=== PATIENT | female | born 1985 | race Caucasian/White ===

== ENCOUNTER → 2016-06-24 | Outpatient (REF) | payer MEDICARE, MEDICAID ==
[2016-06-24 12:23] LABS: ALBUMIN 3.5 GM/DL (3.2-5.2); ALBUMIN/GLOBULIN RATIO 1.13 (1.00-1.93); ALKALINE PHOSPHATASE 105 U/L (45-117); ALT/SGPT 18 U/L (12-78); ANION GAP 8 MEQ/L (8-16); AST/SGOT 10 U/L (15-37); BILIRUBIN,TOTAL 0.4 MG/DL (0.2-1.0); BLOOD UREA NITROGEN 10 MG/DL (7-18); CALCIUM LEVEL 8.5 MG/DL (8.5-10.1); CARBON DIOXIDE LEVEL 27 MEQ/L (21-32); CHLORIDE LEVEL 109 MEQ/L (98-107); CREATININE FOR GFR 0.91 MG/DL (0.55-1.02); GLOMERULAR FILTRATION RATE > 60.0 (>60); GLUCOSE, FASTING 87 MG/DL (70-105); POTASSIUM SERUM 4.1 MEQ/L (3.5-5.1); SODIUM LEVEL 144 MEQ/L (136-145); TOTAL PROTEIN 6.6 GM/DL (6.4-8.2)
== END ==
LOC: M SFHCPLAZ 09:38
PROVIDERS: ATTEND Family Medicine
DX: E55.9 Vitamin D deficiency, unspecified (principal); R73.01 Impaired fasting glucose
CPT/HCPCS: 36415; 80053; 82306; 83036; 83970; G0463

== ENCOUNTER → 2016-06-25 | Outpatient (REF) | payer MEDICARE, MEDICAID ==
[2016-06-25 11:49] LABS: PROLACTIN 16.8 NG/ML
[2016-06-25 11:50] LABS: FOLLICLE STIMULATING HORMONE 5.7 mIU/mL; LUTEINIZING HORMONE 14.7 mIU/mL
== END ==
LOC: M LABNEURO 11:13
PROVIDERS: ATTEND Psychiatry & Neurology Neurology
DX: E23.7 Disorder of pituitary gland, unspecified (principal)

== ENCOUNTER 2016-06-28 16:59 | Emergency (ER) | payer MEDICARE, MEDICAID ==
--- NOTE | 2016-06-28 18:29 | EDDOCDS ---
Nurse's Notes [facility] Name: Shabnam Aaron Age: 31 yrs Sex: Female : 1985 Arrival Date: 06/28/2016 Time: 16:59 Bed TR7 Private MD: Demario Larios E. Diagnosis: Acute upper respiratory infection, unspecified;Cough Presentation: 06/28 17:10 Presenting complaint: Patient states: cough since Thursday saw Dr Larios that [facility] ,thought is was an asthma flare. Adult Sepsis Screening: The patient does not have new or worsening altered mentation. Patient's respiratory rate is less than 22. Systolic blood pressure is greater than 100. Patient has a qSOFA score of 0- Negative Sepsis Screen. Suicide/Homicide risk assessment- the patient denies having any suicidal and/or homicidal ideations and does not present with any other emotional, behavioral or mental health complaints. Status: Patient is not a water pump servicer or dependent. Transition of care: patient was not received from another setting of care. 17:10 Acuity: ALDEN Level 4 [facility] 17:10 Method Of Arrival: Walkin/Carried/[facility]std [facility] Triage Assessment: 17:18 General: Appears in no apparent distress, Behavior is appropriate for age. Pain: Denies [facility] pain. HIV screening NA for this visit Offered previously. Neurological: Level of Consciousness is awake, Oriented to person, place, time. Respiratory: Airway is patent Respiratory effort is even, unlabored, Respiratory pattern is regular, symmetrical, Reports cough that is non-productive. Derm: Skin is pink, warm & dry. 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 Advair Diskus 500-50 mcg/dose inhalation dsdv 1 puff 2 times per day (Last dose: 06/28/2016 07:00) 2. atorvastatin 20 mg oral tab 1 tab once daily (Last dose: 06/28/2016 11:00) 3. Calcium + Vitamin D 600 mg calcium- 200 unit oral tab 600 mg daily (Last dose: 06/28/2016 11:00) 4. escitalopram oxalate 20 mg oral tab 1 tab once daily (Last dose: 06/28/2016 11:00) 5. levothyroxine 25 mcg oral tab 1 tab once daily (Last dose: 06/28/2016 11:00) 6. loratadine 10 mg Oral tab 1 tab once daily (Last dose: 06/28/2016 11:00) 7. montelukast 10 mg oral tab 1 tab nightly (Last dose: 06/27/2016) 8. Nasonex 50 mcg/actuation Nasal spry 2 sprays twice a day (Last dose: 06/28/2016 11:00) 9. zonisamide 200 mg morning and 200 mg night oral (Last dose: 06/28/2016 11:00) 10. Nexium 40 mg Oral cpDR 1 cap once daily (Last dose: 06/28/2016 11:00) 11. albuterol sulfate 2.5 mg/0.5 mL Nebulizer nebu 0.5 mL every 6 hours as needed (Last dose: 06/28/2016 15:00) - PMHx: Allergies, Seasonal; Asthma; brain tumor; Seizure Disorder; mentally disabled; - PSHx: pyloric stenosis; Appendectomy; Tubal ligation; Tubes in ears; - Social history: Smoking status: Patient states was never smoker of tobacco. No barriers to communication noted, The patient speaks fluent Palauan, Speaks appropriately for age. - Family history: Not pertinent. - : The pt / caregiver states he / she is not on anticoagulants. Home medication list is obtained from the caregiver. - Exposure Risk Screening:: None identified. Screenin:26 Screening information is obtained from the patient. Screening information is obtained srm from the parent. Fall risk: No risks identified. Assistance ADL's: requires no assistance with activities of daily living. Abuse/DV Screen: The patient / caregiver reports he/she is: not in a situation that causes fear, pain or injury. Nutritional screening: No deficits noted. Advance Directives: There is no active DNR order. home support is adequate. Assessment: 18:26 General: Appears in no apparent distress, Behavior is appropriate for age, cooperative. srm Respiratory: Reports cough that is. GI: No deficits noted. : No deficits noted. Derm: No deficits noted. Vital Signs: 17:01 BP 120 / 72; Pulse 98; Resp 17; Temp 98.7(T); Pulse Ox 99% on R/A; Weight 91.17 kg (R); lr2 Height 5 ft. 7 in. (170.18 cm) (R); 18:19 BP 109 / 67; Pulse 87; Resp 18; Temp 98.8(O); Pulse Ox 97% on R/A; Pain 0/10; dem1 17:01 Body Mass Index 31.48 (91.17 kg, 170.18 cm) lr2 Vitals: 17:01 Log In Time: June 28, 2016 at 16:59. lr2 ED Course: 17:00 Patient visited by Roseanna Danielle. lr2 17:00 Demario Larios is Private Physician. lr2 17:00 Patient moved to Waiting lr2 17:01 Patient moved to Pre RCE lr2 17:12 Triage Initiated kpj 17:38 Patient moved to Triage 3 dem1 18:03 [facility]uliet Vazquez [facility]-C [facility]. dt4 18:03 Tessa Kuhn MD is Attending Physician. dt4 18:03 Patient visited by Yuliet Vazquez PA-C. dt4 18:19 Patient visited by Idalmis Greene. dem1 18:26 Patient moved to TR7 [facility] 18:26 The patient / caregiver is instructed regarding the plan of care and ED course. srm Accompanied by Family Member, Patient has correct armband on for positive identification. 18:26 No IV's were initiated during this patient's visit. No procedures done that require srm assistance. Order Results: There are currently no results for this order. Outcome: 18:14 Discharge ordered by Provider. dt4 18:26 Discharge Assessment: Patient awake, alert and oriented x 3. No cognitive and/or srm functional deficits noted. Patient verbalized understanding of disposition instructions. patient administered narcotics - no. The following High Risk Discharge criteria are identified: None. Discharged to home ambulatory, with parent. Condition: good Condition: stable. Discharge instructions given to patient, parents Instructed on discharge instructions, follow up and referral plans. medication usage, Demonstrated understanding of instructions, medications, Pt was receptive of discharge instructions/ teaching. Prescriptions given X 2. No special radiology studies were completed. Property sent home with patient. 18:28 Patient left the ED. srm Signatures: Amy Schwartz RN RN kpj Michelson, Staci, RN RN srm Mack, Demeishia dem1 Yuliet Vazquez PA-C PA-C dt4 Roseanna Danielle lrBernadine DERIAND
--- NOTE | 2016-06-28 18:29 | EDDOCDS ---
Physician Documentation [facility] Name: Shabnam Aaron Age: 31 yrs Sex: Female : 1985 Arrival Date: 06/28/2016 Time: 16:59 Bed TR7 Private MD: Demario Larios E. Disposition: 06/28/16 18:14 Discharged to Home/Self Care. Impression: Acute upper respiratory infection, unspecified, Cough. - Condition is Stable. - Discharge Instructions: Upper Respiratory Infection, Adult, Cough, Adult. - Prescriptions for Zithromax Z- Lionel 250 mg Oral Tablet - take 1 tablet by ORAL route as directed for 5 days Day 1- take two tablets once. Day 2, 3, 4 , 5 take one tablet once daily.; 6 tablet. benzonatate 200 mg Oral Capsule - take 1 capsule by ORAL route 3 times per day As needed; 30 capsule. - Medication Reconciliation, Local Pharmacy Hours form. - Follow up: Emergency Department; When: As needed; Reason: Worsening of conditions. Follow up: Private Physician; When: 2 - 3 days; Reason: Wound/Symptom Recheck, Recheck today's complaints, Continuance of care. - Problem is new. - Symptoms are unchanged. Historical: - Allergies: Rocephin (Hives); Ceclor (Hives); - Home Meds: 1. Advair Diskus 500-50 mcg/dose inhalation dsdv 1 puff 2 times per day (Last dose: 06/28/2016 07:00) 2. atorvastatin 20 mg oral tab 1 tab once daily (Last dose: 06/28/2016 11:00) 3. Calcium + Vitamin D 600 mg calcium- 200 unit oral tab 600 mg daily (Last dose: 06/28/2016 11:00) 4. escitalopram oxalate 20 mg oral tab 1 tab once daily (Last dose: 06/28/2016 11:00) 5. levothyroxine 25 mcg oral tab 1 tab once daily (Last dose: 06/28/2016 11:00) 6. loratadine 10 mg Oral tab 1 tab once daily (Last dose: 06/28/2016 11:00) 7. montelukast 10 mg oral tab 1 tab nightly (Last dose: 06/27/2016) 8. Nasonex 50 mcg/actuation Nasal spry 2 sprays twice a day (Last dose: 06/28/2016 11:00) 9. zonisamide 200 mg morning and 200 mg night oral (Last dose: 06/28/2016 11:00) 10. Nexium 40 mg Oral cpDR 1 cap once daily (Last dose: 06/28/2016 11:00) 11. albuterol sulfate 2.5 mg/0.5 mL Nebulizer nebu 0.5 mL every 6 hours as needed (Last dose: 06/28/2016 15:00) - PMHx: Allergies, Seasonal; Asthma; brain tumor; Seizure Disorder; mentally disabled; - PSHx: pyloric stenosis; Appendectomy; Tubal ligation; Tubes in ears; - Social history: Smoking status: Patient states was never smoker of tobacco. No barriers to communication noted, The patient speaks fluent Cypriot, Speaks appropriately for age. - Family history: Not pertinent. - : The pt / caregiver states he / she is not on anticoagulants. Home medication list is obtained from the caregiver. - Exposure Risk Screening:: None identified. 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 7 in. (170.18 cm) (R); 18:19 BP 109 / 67; Pulse 87; Resp 18; Temp 98.8(O); Pulse Ox 97% on R/A; Pain 0/10; dem1 17:01 Body Mass Index 31.48 (91.17 kg, 170.18 cm) lr2 Signatures: Amy Schwartz RN RN [facility] Mary Lemus RN RN [facility] Yuliet Vazquez, LIONEL PAAnton dt4 MTDD
--- NOTE | 2016-06-30 19:29 | EDDOCDS ---
Nurse's Notes [facility] Name: Shabnam Aaron Age: 31 yrs Sex: Female : 1985 Arrival Date: 06/28/2016 Time: 16:59 Bed TR7 Private MD: Demario Larios E. Diagnosis: Acute upper respiratory infection, unspecified;Cough Presentation: 06/28 17:10 Presenting complaint: Patient states: cough since Thursday saw Dr Larios that [facility] ,thought is was an asthma flare. Adult Sepsis Screening: The patient does not have new or worsening altered mentation. Patient's respiratory rate is less than 22. Systolic blood pressure is greater than 100. Patient has a qSOFA score of 0- Negative Sepsis Screen. Suicide/Homicide risk assessment- the patient denies having any suicidal and/or homicidal ideations and does not present with any other emotional, behavioral or mental health complaints. Status: Patient is not a atm servicer or dependent. Transition of care: patient was not received from another setting of care. 17:10 Acuity: ALDEN Level 4 [facility] 17:10 Method Of Arrival: Walkin/Carried/Asstd [facility] Triage Assessment: 17:18 General: Appears in no apparent distress, Behavior is appropriate for age. Pain: Denies [facility] pain. HIV screening NA for this visit Offered previously. Neurological: Level of Consciousness is awake, Oriented to person, place, time. Respiratory: Airway is patent Respiratory effort is even, unlabored, Respiratory pattern is regular, symmetrical, Reports cough that is non-productive. Derm: Skin is pink, warm & dry. 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 Advair Diskus 500-50 mcg/dose inhalation dsdv 1 puff 2 times per day (Last dose: 06/28/2016 07:00) 2. atorvastatin 20 mg oral tab 1 tab once daily (Last dose: 06/28/2016 11:00) 3. Calcium + Vitamin D 600 mg calcium- 200 unit oral tab 600 mg daily (Last dose: 06/28/2016 11:00) 4. escitalopram oxalate 20 mg oral tab 1 tab once daily (Last dose: 06/28/2016 11:00) 5. levothyroxine 25 mcg oral tab 1 tab once daily (Last dose: 06/28/2016 11:00) 6. loratadine 10 mg Oral tab 1 tab once daily (Last dose: 06/28/2016 11:00) 7. montelukast 10 mg oral tab 1 tab nightly (Last dose: 06/27/2016) 8. Nasonex 50 mcg/actuation Nasal spry 2 sprays twice a day (Last dose: 06/28/2016 11:00) 9. zonisamide 200 mg morning and 200 mg night oral (Last dose: 06/28/2016 11:00) 10. Nexium 40 mg Oral cpDR 1 cap once daily (Last dose: 06/28/2016 11:00) 11. albuterol sulfate 2.5 mg/0.5 mL Nebulizer nebu 0.5 mL every 6 hours as needed (Last dose: 06/28/2016 15:00) - PMHx: Allergies, Seasonal; Asthma; brain tumor; Seizure Disorder; mentally disabled; - PSHx: pyloric stenosis; Appendectomy; Tubal ligation; Tubes in ears; - Social history: Smoking status: Patient states was never smoker of tobacco. No barriers to communication noted, The patient speaks fluent Fijian, Speaks appropriately for age. - Family history: Not pertinent. - : The pt / caregiver states he / she is not on anticoagulants. Home medication list is obtained from the caregiver. - Exposure Risk Screening:: None identified. Screenin:26 Screening information is obtained from the patient. Screening information is obtained srm from the parent. Fall risk: No risks identified. Assistance ADL's: requires no assistance with activities of daily living. Abuse/DV Screen: The patient / caregiver reports he/she is: not in a situation that causes fear, pain or injury. Nutritional screening: No deficits noted. Advance Directives: There is no active DNR order. home support is adequate. Assessment: 18:26 General: Appears in no apparent distress, Behavior is appropriate for age, cooperative. srm Respiratory: Reports cough that is. GI: No deficits noted. : No deficits noted. Derm: No deficits noted. Vital Signs: 17:01 BP 120 / 72; Pulse 98; Resp 17; Temp 98.7(T); Pulse Ox 99% on R/A; Weight 91.17 kg (R); lr2 Height 5 ft. 7 in. (170.18 cm) (R); 18:19 BP 109 / 67; Pulse 87; Resp 18; Temp 98.8(O); Pulse Ox 97% on R/A; Pain 0/10; dem1 17:01 Body Mass Index 31.48 (91.17 kg, 170.18 cm) lr2 Vitals: 17:01 Log In Time: June 28, 2016 at 16:59. lr2 ED Course: 17:00 Patient visited by Roseanna Danielle. lr2 17:00 Demario Larios is Private Physician. lr2 17:00 Patient moved to Waiting lr2 17:01 Patient moved to Pre RCE lr2 17:12 Triage Initiated kpj 17:38 Patient moved to Triage 3 dem1 18:03 [facility]quez [facility]. dt4 18:03 Tessa Kuhn MD is Attending Physician. dt4 18:03 Patient visited by Yuliet Vazquez PA-C. dt4 18:19 Patient visited by Idalmis Greene. dem1 18:26 Patient moved to TR7 srm 18:26 The patient / caregiver is instructed regarding the plan of care and ED course. srm Accompanied by Family Member, Patient has correct armband on for positive identification. 18:26 No IV's were initiated during this patient's visit. No procedures done that require srm assistance. 18:30 [facility] Payment Agreement was scanned into [employer] and attached to record. [facility] 02 12:48 T-Sheet-- Draft Copy was scanned into [employer] and attached to record. gb Order Results: There are currently no results for this order. Outcome: 06/28 18:14 Discharge ordered by Provider. dt4 18:26 Discharge Assessment: Patient awake, alert and oriented x 3. No cognitive and/or srm functional deficits noted. Patient verbalized understanding of disposition instructions. patient administered narcotics - no. The following High Risk Discharge criteria are identified: None. Discharged to home ambulatory, with parent. Condition: good Condition: stable. Discharge instructions given to patient, parents Instructed on discharge instructions, follow up and referral plans. medication usage, Demonstrated understanding of instructions, medications, Pt was receptive of discharge instructions/ teaching. Prescriptions given X 2. No special radiology studies were completed. Property sent home with patient. 18:28 Patient left the ED. srm Signatures: Amy Schwartz RN RN kpMary Dalal RN RN Janett Angulo, Idalmis Hoyt1 Yuliet Vazquez PA-C PAAnton steinberg4 Alena Moura Laura lr2 Chart Complete MTDD
--- NOTE | 2016-06-30 19:29 | EDDOCDS ---
Physician Documentation [facility] Name: Shabnam Aaron Age: 31 yrs Sex: Female : 1985 Arrival Date: 06/28/2016 Time: 16:59 Bed TR7 Private MD: Demario Larios E. Disposition: 06/28/16 18:14 Discharged to Home/Self Care. Impression: Acute upper respiratory infection, unspecified, Cough. - Condition is Stable. - Discharge Instructions: Upper Respiratory Infection, Adult, Cough, Adult. - Prescriptions for Zithromax Z- Lionel 250 mg Oral Tablet - take 1 tablet by ORAL route as directed for 5 days Day 1- take two tablets once. Day 2, 3, 4 , 5 take one tablet once daily.; 6 tablet. benzonatate 200 mg Oral Capsule - take 1 capsule by ORAL route 3 times per day As needed; 30 capsule. - Medication Reconciliation, Local Pharmacy Hours form. - Follow up: Emergency Department; When: As needed; Reason: Worsening of conditions. Follow up: Private Physician; When: 2 - 3 days; Reason: Wound/Symptom Recheck, Recheck today's complaints, Continuance of care. - Problem is new. - Symptoms are unchanged. Historical: - Allergies: Rocephin (Hives); Ceclor (Hives); - Home Meds: 1. Advair Diskus 500-50 mcg/dose inhalation dsdv 1 puff 2 times per day (Last dose: 06/28/2016 07:00) 2. atorvastatin 20 mg oral tab 1 tab once daily (Last dose: 06/28/2016 11:00) 3. Calcium + Vitamin D 600 mg calcium- 200 unit oral tab 600 mg daily (Last dose: 06/28/2016 11:00) 4. escitalopram oxalate 20 mg oral tab 1 tab once daily (Last dose: 06/28/2016 11:00) 5. levothyroxine 25 mcg oral tab 1 tab once daily (Last dose: 06/28/2016 11:00) 6. loratadine 10 mg Oral tab 1 tab once daily (Last dose: 06/28/2016 11:00) 7. montelukast 10 mg oral tab 1 tab nightly (Last dose: 06/27/2016) 8. Nasonex 50 mcg/actuation Nasal spry 2 sprays twice a day (Last dose: 06/28/2016 11:00) 9. zonisamide 200 mg morning and 200 mg night oral (Last dose: 06/28/2016 11:00) 10. Nexium 40 mg Oral cpDR 1 cap once daily (Last dose: 06/28/2016 11:00) 11. albuterol sulfate 2.5 mg/0.5 mL Nebulizer nebu 0.5 mL every 6 hours as needed (Last dose: 06/28/2016 15:00) - PMHx: Allergies, Seasonal; Asthma; brain tumor; Seizure Disorder; mentally disabled; - PSHx: pyloric stenosis; Appendectomy; Tubal ligation; Tubes in ears; - Social history: Smoking status: Patient states was never smoker of tobacco. No barriers to communication noted, The patient speaks fluent Yoruba, Speaks appropriately for age. - Family history: Not pertinent. - : The pt / caregiver states he / she is not on anticoagulants. Home medication list is obtained from the caregiver. - Exposure Risk Screening:: None identified. 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 7 in. (170.18 cm) (R); 18:19 BP 109 / 67; Pulse 87; Resp 18; Temp 98.8(O); Pulse Ox 97% on R/A; Pain 0/10; dem1 17:01 Body Mass Index 31.48 (91.17 kg, 170.18 cm) lr2 MDM: 18:30 [facility] Payment Agreement was scanned into [employer] and attached to record. b 18:30 Financial registration complete. gjb 06/29 12:48 T-Sheet-- Draft Copy was scanned into [employer] and attached to record. gb Signatures: Amy Schwartz RN RN Mary Dalal RN RN [facility] Janett Pinto, Reg Reg Yuliet Ma, SWATIC PAKpC Alena Kapoor The chart was reviewed and I authenticate all verbal orders and agree with the evaluation and treatment provided.Attachments: 06/28 18:30 [facility] Payment Agreement gjb 06/29 12:48 T-Sheet-- Draft Copy gb Chart Complete MTDD
--- NOTE | 2016-06-30 19:29 | EDDOCDS ---
Physician Documentation [facility] Name: Shabnam Aaron Age: 31 yrs Sex: Female : 1985 Arrival Date: 06/28/2016 Time: 16:59 Bed TR7 Private MD: Demario Larios E. Disposition: 06/28/16 18:14 Discharged to Home/Self Care. Impression: Acute upper respiratory infection, unspecified, Cough. - Condition is Stable. - Discharge Instructions: Upper Respiratory Infection, Adult, Cough, Adult. - Prescriptions for Zithromax Z- Lionel 250 mg Oral Tablet - take 1 tablet by ORAL route as directed for 5 days Day 1- take two tablets once. Day 2, 3, 4 , 5 take one tablet once daily.; 6 tablet. benzonatate 200 mg Oral Capsule - take 1 capsule by ORAL route 3 times per day As needed; 30 capsule. - Medication Reconciliation, Local Pharmacy Hours form. - Follow up: Emergency Department; When: As needed; Reason: Worsening of conditions. Follow up: Private Physician; When: 2 - 3 days; Reason: Wound/Symptom Recheck, Recheck today's complaints, Continuance of care. - Problem is new. - Symptoms are unchanged. Historical: - Allergies: Rocephin (Hives); Ceclor (Hives); - Home Meds: 1. Advair Diskus 500-50 mcg/dose inhalation dsdv 1 puff 2 times per day (Last dose: 06/28/2016 07:00) 2. atorvastatin 20 mg oral tab 1 tab once daily (Last dose: 06/28/2016 11:00) 3. Calcium + Vitamin D 600 mg calcium- 200 unit oral tab 600 mg daily (Last dose: 06/28/2016 11:00) 4. escitalopram oxalate 20 mg oral tab 1 tab once daily (Last dose: 06/28/2016 11:00) 5. levothyroxine 25 mcg oral tab 1 tab once daily (Last dose: 06/28/2016 11:00) 6. loratadine 10 mg Oral tab 1 tab once daily (Last dose: 06/28/2016 11:00) 7. montelukast 10 mg oral tab 1 tab nightly (Last dose: 06/27/2016) 8. Nasonex 50 mcg/actuation Nasal spry 2 sprays twice a day (Last dose: 06/28/2016 11:00) 9. zonisamide 200 mg morning and 200 mg night oral (Last dose: 06/28/2016 11:00) 10. Nexium 40 mg Oral cpDR 1 cap once daily (Last dose: 06/28/2016 11:00) 11. albuterol sulfate 2.5 mg/0.5 mL Nebulizer nebu 0.5 mL every 6 hours as needed (Last dose: 06/28/2016 15:00) - PMHx: Allergies, Seasonal; Asthma; brain tumor; Seizure Disorder; mentally disabled; - PSHx: pyloric stenosis; Appendectomy; Tubal ligation; Tubes in ears; - Social history: Smoking status: Patient states was never smoker of tobacco. No barriers to communication noted, The patient speaks fluent Urdu, Speaks appropriately for age. - Family history: Not pertinent. - : The pt / caregiver states he / she is not on anticoagulants. Home medication list is obtained from the caregiver. - Exposure Risk Screening:: None identified. 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 7 in. (170.18 cm) (R); 18:19 BP 109 / 67; Pulse 87; Resp 18; Temp 98.8(O); Pulse Ox 97% on R/A; Pain 0/10; dem1 17:01 Body Mass Index 31.48 (91.17 kg, 170.18 cm) lr2 MDM: 18:30 [facility] Payment Agreement was scanned into [employer] and attached to record. b 18:30 Financial registration complete. gjb 06/29 12:48 T-Sheet-- Draft Copy was scanned into [employer] and attached to record. gb Signatures: Amy Schwartz RN RN Mary Dalal RN RN [facility] Janett Pinto, Reg Reg Yuliet Ma, SWATIC PAKpC Alena Kapoor The chart was reviewed and I authenticate all verbal orders and agree with the evaluation and treatment provided.Attachments: 06/28 18:30 [facility] Payment Agreement gjb 06/29 12:48 T-Sheet-- Draft Copy gb Chart Complete MTDD
== END 2016-06-28 18:28 | disposition home or self-care (01) ==
LOC: M ED 16:59
DX: J06.9 Acute upper respiratory infection, unspecified (principal); R05 Cough; J45.909 Unspecified asthma, uncomplicated; G40.909 Epilepsy, unspecified, not intractable, without status epilepticus; F79 Unspecified intellectual disabilities; G93.9 Disorder of brain, unspecified; Z79.51 Long term (current) use of inhaled steroids; Z79.899 Other long term (current) drug therapy; Z88.1 Allergy status to other antibiotic agents

== ENCOUNTER → 2016-11-06 | Outpatient (REF) | payer MEDICARE, MEDICAID ==
[2016-11-06 14:24] LABS: ALBUMIN 3.7 GM/DL (3.2-5.2); ALBUMIN/GLOBULIN RATIO 1.19 (1.00-1.93); ALKALINE PHOSPHATASE 98 U/L (45-117); ALT/SGPT 15 U/L (12-78); ANION GAP 5 MEQ/L (8-16); AST/SGOT 10 U/L (15-37); BILIRUBIN,TOTAL 0.4 MG/DL (0.2-1.0); BLOOD UREA NITROGEN 12 MG/DL (7-18); CALCIUM LEVEL 8.4 MG/DL (8.5-10.1); CARBON DIOXIDE LEVEL 25 MEQ/L (21-32); CHLORIDE LEVEL 107 MEQ/L (98-107); CHOLESTEROL LEVEL 141 MG/DL (<200); CREATININE FOR GFR 0.84 MG/DL (0.55-1.02); FREE T4 0.93 NG/DL (0.76-1.46); GLOMERULAR FILTRATION RATE > 60.0 (>60); GLUCOSE, FASTING 87 MG/DL (70-105); POTASSIUM SERUM 4.1 MEQ/L (3.5-5.1); SODIUM LEVEL 137 MEQ/L (136-145); TOTAL PROTEIN 6.8 GM/DL (6.4-8.2); TRIGLYCERIDES LEVEL 102 MG/DL (<150)
== END ==
LOC: M SFHCPLAZ 11:22
PROVIDERS: ATTEND Family Medicine
DX: E78.5 Hyperlipidemia, unspecified (principal); E03.9 Hypothyroidism, unspecified
CPT/HCPCS: 36415; 80053; 80061; 82550; 84439; 84443; 86140; G0463

== ENCOUNTER → 2016-12-30 | Outpatient (REF) | payer MEDICARE, MEDICAID | LOC: M LAB REF 17:37 | PROVIDERS: ATTEND Advanced Practice Midwife | DX: Z11.3 Encounter for screening for infections with a predominantly sexual mode of transmission (principal) ==

== ENCOUNTER → 2017-01-08 | Outpatient (CLI) | payer MEDICARE, MEDICAID ==
--- NOTE | 2017-01-08 15:49 | REP ---
PELVIS ULTRASOUND: Real-time sonographic evaluation of the pelvis performed utilizing transabdominal and endovaginal technique. Bladder measures 4.1 x 1.5 x 4.5 cm. Uterus measures 8.4 x 3.7 x 5.0 cm. Endometrial thickness is 10 mm. Possible rounded polyp in the endometrial cavity measures 1.0 x 0.8 x 0.9 cm. No endometrial fluid collection is seen. Right ovary measures 4.2 x 2.7 x 2.3 cm and left ovary 2.5 x 1.9 x 1.6 cm. There is a dominant follicle in the right ovary with 2.0 x 1.5 x 1.7 cm. There is no other evidence of adnexal mass or free fluid. Blood flow is seen in each ovary with duplex Doppler evaluation, RI of each ovary is 0.51. IMPRESSION: Possible 1 cm endometrial polyp. Signed by Oseas Gomez MD 01/08/2017 05:06 P
== END ==
LOC: M RAD 14:18
PROVIDERS: ATTEND Advanced Practice Midwife
DX: N92.6 Irregular menstruation, unspecified (principal)

== ENCOUNTER 2017-04-20 09:39 | Day surgery (SDC) | payer MEDICARE, MEDICAID ==
[~2017-04-20] VITALS: Ht 165.1 cm; Wt 89.4 kg
[~2017-04-20 09:39] MED LIST: CALC600T57 PO; LAMI25TA PO; LEVO25TA5 PO; LEXA1TAB PO; LIPI20TA PO; LORA10TA2 PO; MONT10TA2 PO; NEXI40CA PO; NIZO2SHA EX; TERB1CRE12 EX; VITA1CAP40 PO; ZONI100C2 PO
[2017-04-20] MEDS ORDERED: LR 1,000 ML IV ONE (09:45)
[2017-04-20 10:02] LABS: MEAN CORPUSCULAR HEMOGLOBIN 28.3 pg (27.0-33.0); MEAN CORPUSCULAR HGB CONC 31.7 g/dl (32.0-36.5); MEAN CORPUSCULAR VOLUME 89.3 fl (80.0-96.0); PLATELET COUNT, AUTOMATED 299 10^3/uL (150-450); RED CELL DISTRIBUTION WIDTH 13.8 % (11.5-14.5); WHITE BLOOD COUNT 5.8 10^3/uL (4.0-10.0)
[2017-04-20] MEDS ORDERED: MIDAZOLAM INJ 2 MG/2 ML VIAL (J2250) As Ordered ONE (12:01)
[2017-04-20] MEDS ORDERED: LIDOCAINE 2% INJ 100 MG/5 ML SDV (FOR ANES.) As Ordered ONE (12:01)
[2017-04-20] MEDS ORDERED: dexameTHASONE 4 MG/ML 1ML VIAL (J1100) As Ordered ONE (12:01)
[2017-04-20] MEDS ORDERED: fentaNYL 100 MCG/2 ML INJECTION (J3010) As Ordered ONE (12:01)
[2017-04-20] MEDS ORDERED: PROPOFOL 200 MG/20 ML VIAL As Ordered ONE (12:01)
[2017-04-20] MEDS ORDERED: ONDANSETRON 4MG/2ML VIAL (J2405) As Ordered ONE (12:01)
[2017-04-20] MEDS ORDERED: KETOROLAC 60 MG/2 ML VIAL (J1885) As Ordered ONE (12:01)
[2017-04-20] MEDS ORDERED: SILVER NITRATE APPLICATOR As Ordered ONE (12:33)
[2017-04-20] MEDS ORDERED: ONDANSETRON 4MG/2ML VIAL (J2405) IV PRN (13:15)
[2017-04-20] MEDS ORDERED: fentaNYL 100 MCG/2 ML INJECTION (J3010) IV PRN (13:15)
[2017-04-20] MEDS ORDERED: PERCOCET 5MG/325MG TAB PO PRN (13:15)
[2017-04-20] MEDS ORDERED: LR 1,000 ML IV SCH (13:15)
--- NOTE | 2017-04-20 13:56 | RO ---
DATE OF PROCEDURE: 04/20/2017 PREPROCEDURE DIAGNOSIS: Endometrial polyp. POSTPROCEDURE DIAGNOSIS: Thickened endometrium. PROCEDURE: Hysteroscopy, dilation and curettage with MyoSure. SURGEON: Neeta Hoffman MD DIRECTOR INFORMATION: None. ANESTHESIA: General via laryngeal mask airway. ESTIMATED BLOOD LOSS: 5 mL. INTRAVENOUS FLUIDS: 300 mL. OPERATIVE FINDINGS: Patient with uterus sounded to approximately 8 cm. Bilateral ostia were visualized. Thickened endometrium. No definitive endometrial polyp observed. DESCRIPTION OF OPERATION: After informed consent was obtained and written consent was reviewed, the patient was brought to the operating room where general endotracheal anesthesia via laryngeal mask airway was obtained. She was then placed in the lithotomy position, was prepped and draped in a normal sterile fashion. A time-out in the operating room was then performed identifying the patient, procedure to be performed, as well as drug allergies. [place] speculum was then placed revealing the cervix. The anterior lip of the cervix was grasped with a single tooth tenaculum. The uterus was then sounded to approximately 8 cm. The uterus was then sequentially dilated using Hanks dilators. Hysteroscope was then advanced to the cervical os and endometrial cavity was surveyed showing a thickened endometrium. Bilateral ostia were visualized. No definitive endometrial polyps seen. MyoSure was then used to sample several areas of the thickened endometrium. MyoSure was then removed as well as the hysteroscope. A sharp curette was then advanced through the cervical os to the level of the fundus. The uterus was curetted in a 360 degree fashion with tissue obtained. Tissue was then collected and this was also sent to pathology for evaluation. Single tooth tenaculum was then removed. Tenaculum sites noted to be hemostatic. Speculum was then removed. The patient was then taken out of lithotomy position, was awakened from general anesthesia and taken to recovery in stable condition. Counts were correct.
[2017-04-20 14:05] VITALS: BP 113/59
[2017-04-20] MEDS ORDERED: KETOROLAC 30 MG/ML VIAL (J1885) IV SCH (19:00)
== END 2017-04-20 14:33 | disposition home or self-care (01) ==
LOC: M SDC 09:39
PROVIDERS: ATTEND Obstetrics & Gynecology
DX: N85.00 Endometrial hyperplasia, unspecified (principal); K21.9 Gastro-esophageal reflux disease without esophagitis; E78.00 Pure hypercholesterolemia, unspecified; E03.9 Hypothyroidism, unspecified; D35.2 Benign neoplasm of pituitary gland; R06.02 Shortness of breath; R56.9 Unspecified convulsions; J45.909 Unspecified asthma, uncomplicated; F79 Unspecified intellectual disabilities; Z88.1 Allergy status to other antibiotic agents; Z79.899 Other long term (current) drug therapy; Z98.51 Tubal ligation status
CPT/HCPCS: 36415; 58558; 85027; 86850; 86900; 86901; 88305; J1100; J1885; J2250; J2405; J3010

== ENCOUNTER → 2017-07-02 | Outpatient (REF) | payer MEDICARE, OTHER, MEDICAID ==
[2017-07-02 13:41] LABS: ESTIMATED AVERAGE GLUCOSE 114 MG/DL (60-110); HEMOGLOBIN A1c 5.6 %
[2017-07-02 13:48] LABS: ALBUMIN 3.9 GM/DL (3.2-5.2); ALBUMIN/GLOBULIN RATIO 1.22 (1.00-1.93); ALKALINE PHOSPHATASE 99 U/L (45-117); ALT/SGPT 13 U/L (12-78); ANION GAP 8 MEQ/L (8-16); AST/SGOT 10 U/L (7-37); BILIRUBIN,TOTAL 0.3 MG/DL (0.2-1.0); BLOOD UREA NITROGEN 9 MG/DL (7-18); C REACTIVE PROTEIN QUANTITATIV < 0.30 MG/DL (0.00-0.30); CALCIUM LEVEL 8.7 MG/DL (8.5-10.1); CARBON DIOXIDE LEVEL 25 MEQ/L (21-32); CHLORIDE LEVEL 107 MEQ/L (98-107); CHOLESTEROL LEVEL 148 MG/DL (<200); CHOLESTEROL RISK RATIO 2.508 (<5); CPK CREATINE PHOSPHOKINASE 41 U/L (26-192); CREATININE FOR GFR 0.93 MG/DL (0.55-1.30); GLOMERULAR FILTRATION RATE > 60.0 (>60); GLUCOSE, FASTING 81 MG/DL (70-100); HDL CHOLESTEROL 59 MG/DL (>40); NON-HDL-C 89 MG/DL; POTASSIUM SERUM 4.1 MEQ/L (3.5-5.1); SODIUM LEVEL 140 MEQ/L (136-145); TOTAL PROTEIN 7.1 GM/DL (6.4-8.2); TRIGLYCERIDES LEVEL 85 MG/DL (<150)
[2017-07-02 14:00] LABS: PTH INTACT 35.7 PG/ML (18.5-88.0); TOTAL 25(OH) VITAMIN D 92.4 NG/ML (30.0-100.0)
[2017-07-06 14:21] LABS: ZONISAMIDE LEVEL 33.6 ug/mL (10.0-40.0)
== END ==
LOC: M SFHCPLAZ 11:50
DX: E55.9 Vitamin D deficiency, unspecified (principal); R73.01 Impaired fasting glucose; E78.5 Hyperlipidemia, unspecified; R56.9 Unspecified convulsions
CPT/HCPCS: 82550; 83036

== ENCOUNTER → 2017-11-02 | Outpatient (REF) | payer MEDICARE ==
[2017-11-02 13:52] LABS: BASO # 0.1 10^3/uL (0.0-0.2); BASO % 0.6 % (0.0-1.0); EOS # 0.1 10^3/uL (0.0-0.50); HEMATOCRIT 41.8 % (36.0-47.0); HEMOGLOBIN 13.4 g/dl (12.0-15.5); IMMATURE GRANULOCYTE % 0.3 % (0-3.0); LYMPH # 2.6 10^3/uL (1.5-4.5); MEAN CORPUSCULAR HEMOGLOBIN 29.8 pg (27.0-33.0); MEAN CORPUSCULAR HGB CONC 32.1 g/dl (32.0-36.5); MEAN CORPUSCULAR VOLUME 92.9 fl (80.0-96.0); MONO # 0.6 10^3/uL (0.0-0.8); MONO % 6.6 % (0.0-5.0); NEUTROPHILS # 5.4 10^3/uL (1.8-7.7); NEUTROPHILS % 61.5 % (36.0-66.0); PLATELET COUNT, AUTOMATED 282 10^3/uL (150-450); RED CELL DISTRIBUTION WIDTH 13.5 % (11.5-14.5); WHITE BLOOD COUNT 8.8 10^3/uL (4.0-10.0)
[2017-11-02 14:14] LABS: PTH INTACT 40.5 PG/ML (18.5-88.0)
[2017-11-02 14:20] LABS: ALBUMIN 3.7 GM/DL (3.2-5.2); ALBUMIN/GLOBULIN RATIO 1.16 (1.00-1.93); ALKALINE PHOSPHATASE 84 U/L (45-117); ALT/SGPT 13 U/L (12-78); ANION GAP 6 MEQ/L (8-16); AST/SGOT 8 U/L (7-37); BILIRUBIN,TOTAL 0.4 MG/DL (0.2-1.0); BLOOD UREA NITROGEN 9 MG/DL (7-18); CALCIUM LEVEL 8.4 MG/DL (8.5-10.1); CARBON DIOXIDE LEVEL 25 MEQ/L (21-32); CHLORIDE LEVEL 109 MEQ/L (98-107); CREATININE FOR GFR 0.91 MG/DL (0.55-1.30); FREE T4 0.83 NG/DL (0.76-1.46); GLOMERULAR FILTRATION RATE > 60.0 (>60); GLUCOSE, FASTING 72 MG/DL (70-100); POTASSIUM SERUM 4.1 MEQ/L (3.5-5.1); SODIUM LEVEL 140 MEQ/L (136-145); TOTAL PROTEIN 6.9 GM/DL (6.4-8.2)
[2017-11-02 14:24] LABS: TOTAL 25(OH) VITAMIN D 123.5 NG/ML (30.0-100.0)
[2017-11-02 14:25] LABS: ESTIMATED AVERAGE GLUCOSE 105 MG/DL (60-110); HEMOGLOBIN A1c 5.3 %
== END ==
LOC: M SFHCPLAZ 12:01
DX: E55.9 Vitamin D deficiency, unspecified (principal); E03.9 Hypothyroidism, unspecified; R73.01 Impaired fasting glucose; Z68.30 Body mass index [BMI] 30.0-30.9, adult
CPT/HCPCS: 84443

== ENCOUNTER → 2018-02-23 | Outpatient (REF) | payer MEDICARE | LOC: M LAB REF 12:22 | DX: J02.9 Acute pharyngitis, unspecified (principal) | CPT/HCPCS: 87430 ==

== ENCOUNTER → 2018-03-23 | Outpatient (REF) | payer MEDICARE ==
[2018-03-23 16:07] LABS: ESTIMATED AVERAGE GLUCOSE 103 MG/DL (60-110); HEMOGLOBIN A1c 5.2 %
[2018-03-23 16:08] LABS: ALBUMIN 3.4 GM/DL (3.2-5.2); ALBUMIN/GLOBULIN RATIO 1.13 (1.00-1.93); ALKALINE PHOSPHATASE 85 U/L (45-117); ALT/SGPT 14 U/L (12-78); ANION GAP 7 MEQ/L (8-16); AST/SGOT 8 U/L (7-37); BILIRUBIN,TOTAL 0.2 MG/DL (0.2-1.0); BLOOD UREA NITROGEN 13 MG/DL (7-18); CALCIUM LEVEL 8.4 MG/DL (8.5-10.1); CARBON DIOXIDE LEVEL 25 MEQ/L (21-32); CHLORIDE LEVEL 112 MEQ/L (98-107); GLOMERULAR FILTRATION RATE > 60.0 (>60); GLUCOSE, FASTING 94 MG/DL (70-100); POTASSIUM SERUM 4.1 MEQ/L (3.5-5.1); PTH INTACT 22.6 PG/ML (18.5-88.0); SODIUM LEVEL 144 MEQ/L (136-145); TOTAL PROTEIN 6.4 GM/DL (6.4-8.2)
[2018-03-25 14:15] LABS: INSULIN LEVEL 16.6 uIU/mL (2.6-24.9)
== END ==
LOC: M LABDRAW1 12:06
DX: R73.01 Impaired fasting glucose (principal); E55.9 Vitamin D deficiency, unspecified
CPT/HCPCS: 83525

== ENCOUNTER → 2018-06-22 | Outpatient (REF) | payer MEDICARE, MEDICAID ==
[~2018-06-22] MED LIST changes: +LORA-243 PO; -LORA10TA2 PO; -VITA1CAP40 PO; +VITA50005 PO
[2018-06-22 14:32] LABS: HEMOGLOBIN A1c 5.7 %
[2018-06-22 14:40] LABS: BASO # 0.1 10^3/uL (0.0-0.2); BASO % 0.7 % (0.0-1.0); EOS # 0.1 10^3/uL (0.0-0.50); EOS % 1.7 % (0.0-3.0); HEMATOCRIT 41.4 % (36.0-47.0); LYMPH # 1.9 10^3/uL (1.5-4.5); LYMPH % 22.8 % (24.0-44.0); MEAN CORPUSCULAR HGB CONC 31.4 g/dl (32.0-36.5); MEAN CORPUSCULAR VOLUME 95.4 fl (80.0-96.0); MONO # 0.7 10^3/uL (0.0-0.8); MONO % 8.1 % (0.0-5.0); NEUTROPHILS # 5.4 10^3/uL (1.8-7.7); NEUTROPHILS % 66.5 % (36.0-66.0); PLATELET COUNT, AUTOMATED 282 10^3/uL (150-450); RED BLOOD COUNT 4.34 10^6/uL (4.00-5.40); WHITE BLOOD COUNT 8.1 10^3/uL (4.0-10.0)
[2018-06-22 14:49] LABS: ALBUMIN 3.7 GM/DL (3.2-5.2); ALT/SGPT 10 U/L (12-78); BILIRUBIN,TOTAL 0.2 MG/DL (0.2-1.0); BLOOD UREA NITROGEN 8 MG/DL (7-18); C REACTIVE PROTEIN QUANTITATIV < 0.30 MG/DL (0.00-0.30); CALCIUM LEVEL 8.1 MG/DL (8.5-10.1); CARBON DIOXIDE LEVEL 23 MEQ/L (21-32); CHLORIDE LEVEL 111 MEQ/L (98-107); CHOLESTEROL LEVEL 138 MG/DL (<200); CHOLESTEROL RISK RATIO 2.936 (<5); CPK CREATINE PHOSPHOKINASE 38 U/L (26-192); CREATININE FOR GFR 0.93 MG/DL (0.55-1.30); FREE T4 0.81 NG/DL (0.76-1.46); GLOMERULAR FILTRATION RATE > 60.0 (>60); GLUCOSE, FASTING 82 MG/DL (70-100); HDL CHOLESTEROL 47 MG/DL (>40); LDL CHOLESTEROL 68 MG/DL (<100); NON-HDL-C 91 MG/DL; POTASSIUM SERUM 4.1 MEQ/L (3.5-5.1); SODIUM LEVEL 143 MEQ/L (136-145); TOTAL PROTEIN 6.3 GM/DL (6.4-8.2); TRIGLYCERIDES LEVEL 116 MG/DL (<150)
== END ==
LOC: M SFHCPLAZ 10:22
PROVIDERS: ATTEND Physician Assistant Medical
DX: E03.9 Hypothyroidism, unspecified (principal); K21.9 Gastro-esophageal reflux disease without esophagitis; R73.01 Impaired fasting glucose; E78.5 Hyperlipidemia, unspecified
CPT/HCPCS: 36415; 80053; 80061; 82550; 83036; 84439; 84443; 85025; 86140; G0463

== ENCOUNTER → 2018-11-30 | Outpatient (REF) | payer MEDICARE, MEDICAID ==
[2018-11-30 13:00] LABS: BASO # 0.1 10^3/uL (0.0-0.2); BASO % 0.7 % (0.0-1.0); EOS # 0.1 10^3/uL (0.0-0.50); EOS % 1.2 % (0.0-3.0); HEMATOCRIT 40.8 % (36.0-47.0); HEMOGLOBIN 13.1 g/dl (12.0-15.5); LYMPH # 1.9 10^3/uL (1.5-4.5); LYMPH % 27.7 % (24.0-44.0); MEAN CORPUSCULAR HEMOGLOBIN 30.4 pg (27.0-33.0); MEAN CORPUSCULAR HGB CONC 32.1 g/dl (32.0-36.5); MEAN CORPUSCULAR VOLUME 94.7 fl (80.0-96.0); MONO # 0.6 10^3/uL (0.0-0.8); MONO % 8.2 % (0.0-5.0); NEUTROPHILS # 4.3 10^3/uL (1.8-7.7); NEUTROPHILS % 62.1 % (36.0-66.0); PLATELET COUNT, AUTOMATED 264 10^3/uL (150-450); RED BLOOD COUNT 4.31 10^6/uL (4.00-5.40); WHITE BLOOD COUNT 6.9 10^3/uL (4.0-10.0)
[2018-11-30 13:15] LABS: FREE T4 0.71 NG/DL (0.76-1.46); TOTAL PROTEIN 6.7 GM/DL (6.4-8.2)
[2018-11-30 13:16] LABS: VITAMIN B12 LEVEL 643 PG/ML (247-911)
[2018-11-30 13:25] LABS: HEMOGLOBIN A1c 5.4 %
[2018-12-01 11:44] LABS: ALBUMIN 4.15 GM/DL (3.29-5.55); ALBUMIN % 61.9 % (55.8-66.1); ALPHA-1-GLOBULIN % 4.5 % (2.9-4.9); ALPHA-2-GLOBULINS 0.74 GM/DL (0.42-0.99); BETA-1-GLOBULINS 0.34 GM/DL (0.28-0.60); BETA-1-GLOBULINS % 5.1 % (4.7-7.2); BETA-2-GLOBULINS 0.29 GM/DL (0.19-0.55); BETA-2-GLOBULINS % 4.4 % (3.2-6.5); GAMMA GLOBULIN % 13.1 % (11.1-18.8); GAMMA GLOBULINS 0.88 GM/DL (0.65-1.58)
== END ==
LOC: M SFHCPLAZ 09:14
PROVIDERS: ATTEND Family Medicine
DX: K21.9 Gastro-esophageal reflux disease without esophagitis (principal); E03.9 Hypothyroidism, unspecified; R73.01 Impaired fasting glucose; D75.89 Other specified diseases of blood and blood-forming organs

== ENCOUNTER → 2018-12-31 | Outpatient (REF) | payer MEDICARE, MEDICAID ==
[2019-01-04 15:07] LABS: HPV HYBRID CAPTURE II Negative (Negative)
== END ==
LOC: M LAB REF 13:47
PROVIDERS: ATTEND Obstetrics & Gynecology
DX: Z12.4 Encounter for screening for malignant neoplasm of cervix (principal)
CPT/HCPCS: 87624; G0123

== ENCOUNTER → 2019-01-06 | Outpatient (CLI) | payer MEDICARE, MEDICAID ==
--- NOTE | 2019-01-06 15:33 | REP ---
Pelvic sonography: History: Abnormal menstrual bleeding. Findings: Transabdominal scanning is performed. Uterine dimensions are normal at 7.0 x 3.4 x 4.2 cm. Endometrial echo 0.5 cm thick. No focal uterine mass seen. Transabdominal imaging of the ovaries shows no abnormality. The patient declined transvaginal imaging. Right ovary dimensions on transabdominal images are 1.9 x 1.8 x 1.9 cm. The left ovary measures 1.8 x 1.5 x 1.7 cm. Visualized bladder harvey are smooth. Impression: Normal pelvic sonography. Electronically Signed by Ady Alva MD 01/06/2019 03:23 P
== END ==
LOC: M RAD 10:50
PROVIDERS: ATTEND Obstetrics & Gynecology
DX: N92.0 Excessive and frequent menstruation with regular cycle (principal)

== ENCOUNTER → 2019-01-28 | Outpatient (REF) | payer MEDICARE ==
[~2019-01-28] MED LIST changes: +ALBU83IN; +CLOB10TA; +DIVA250T67; +FLUTISP; +KETO2SHA9; +LORA1TAB4 PO; +TERB1CRE2; +ZONI100C17 PO; -ZONI100C2 PO
[2019-01-28 12:51] LABS: PLATELET COUNT, AUTOMATED 261 10^3/uL (150-450)
[2019-01-28 13:00] LABS: ALBUMIN 3.3 GM/DL (3.2-5.2); ALT/SGPT 13 U/L (12-78); BILIRUBIN,DIRECT < 0.1 MG/DL (0.0-0.2); BILIRUBIN,TOTAL 0.3 MG/DL (0.2-1.0); TOTAL PROTEIN 6.2 GM/DL (6.4-8.2)
== END ==
LOC: M LABDRAW1 11:58
PROVIDERS: ATTEND Psychiatry & Neurology Psychiatry
DX: Z79.899 Other long term (current) drug therapy (principal)
CPT/HCPCS: 36415; 80076; 85027; G0463

== ENCOUNTER → 2019-05-10 | Outpatient (CLI) | payer MEDICARE, MEDICAID ==
[~2019-05-10] MED LIST changes: -ALBU83IN; -CLOB10TA; -DIVA250T67; -FLUTISP; -KETO2SHA9; -LORA1TAB4 PO; -TERB1CRE2; -ZONI100C17 PO; +ZONI100C2 PO
[2019-05-10 11:11] LABS: BASO # 0.1 10^3/uL (0.0-0.2); EOS # 0.1 10^3/uL (0.0-0.5); EOS % 2.1 % (0.0-3.0); HEMATOCRIT 42.8 % (36.0-47.0); HEMOGLOBIN 13.4 g/dl (12.0-15.5); LYMPH # 2.3 10^3/uL (1.5-5.0); LYMPH % 33.7 % (24.0-44.0); MEAN CORPUSCULAR HEMOGLOBIN 30.5 pg (27.0-33.0); MEAN CORPUSCULAR HGB CONC 31.3 g/dl (32.0-36.5); MEAN CORPUSCULAR VOLUME 97.5 fl (80.0-96.0); MONO # 0.4 10^3/uL (0.0-0.8); MONO % 6.4 % (0.0-5.0); NEUTROPHILS # 3.8 10^3/uL (1.5-8.5); NEUTROPHILS % 56.7 % (36.0-66.0); PLATELET COUNT, AUTOMATED 259 10^3/uL (150-450); RED BLOOD COUNT 4.39 10^6/uL (4.00-5.40); WHITE BLOOD COUNT 6.7 10^3/uL (4.0-10.0)
[2019-05-10 11:48] LABS: ALBUMIN 3.6 GM/DL (3.2-5.2); BILIRUBIN,TOTAL 0.3 MG/DL (0.2-1.0); CALCIUM LEVEL 8.9 MG/DL (8.5-10.1); CHOLESTEROL RISK RATIO 2.83 (<5); CREATININE FOR GFR 1.13 MG/DL (0.55-1.30); FREE T4 0.72 NG/DL (0.76-1.46); GLOMERULAR FILTRATION RATE 58.7 (>60); PTH INTACT 31.3 PG/ML (18.5-88.0); THYROID STIMULATING HORMONE 3.05 uIU/ML (0.358-3.740); TOTAL 25(OH) VITAMIN D 100.6 NG/ML (30.0-100.0); TOTAL PROTEIN 6.5 GM/DL (6.4-8.2)
== END ==
LOC: M LAB 09:29
PROVIDERS: ATTEND Family Medicine
DX: R73.01 Impaired fasting glucose (principal); E78.5 Hyperlipidemia, unspecified; E55.9 Vitamin D deficiency, unspecified; E03.9 Hypothyroidism, unspecified

== ENCOUNTER 2019-06-07 10:58 | Emergency (ER) | payer MEDICARE, MEDICAID ==
[~2019-06-07] VITALS: Ht 167.6 cm; Wt 74.3 kg
[~2019-06-07 10:58] MED LIST changes: +ZONI100C17 PO; -ZONI100C2 PO
[2019-06-07] MEDS ORDERED: ALBU83IN (13:47)
[2019-06-07] MEDS ORDERED: CLOB10TA (13:47)
[2019-06-07] MEDS ORDERED: TERB1CRE2 (13:47)
[2019-06-07] MEDS ORDERED: FLUTISP (13:47)
[2019-06-07] MEDS ORDERED: DIVA250T67 (13:47)
[2019-06-07] MEDS ORDERED: KETO2SHA9 (13:47)
[2019-06-07] MEDS ORDERED: LORA1TAB4 PO (13:47)
[2019-06-07] MEDS ORDERED: NS 1,000 ML IV ONE (14:15)
[2019-06-07 14:18] LABS: BASO % 0.8 % (0.0-1.0); EOS # 0.1 10^3/uL (0.0-0.5); EOS % 2.9 % (0.0-3.0); HEMATOCRIT 42.4 % (36.0-47.0); HEMOGLOBIN 13.2 g/dl (12.0-15.5); LYMPH # 1.9 10^3/uL (1.5-5.0); LYMPH % 39.3 % (24.0-44.0); MEAN CORPUSCULAR HEMOGLOBIN 30.1 pg (27.0-33.0); MEAN CORPUSCULAR HGB CONC 31.1 g/dl (32.0-36.5); MEAN CORPUSCULAR VOLUME 96.8 fl (80.0-96.0); MONO # 0.4 10^3/uL (0.0-0.8); MONO % 7.6 % (0.0-5.0); NEUTROPHILS # 2.4 10^3/uL (1.5-8.5); NEUTROPHILS % 49.2 % (36.0-66.0); PLATELET COUNT, AUTOMATED 163 10^3/uL (150-450); RED BLOOD COUNT 4.38 10^6/uL (4.00-5.40); WHITE BLOOD COUNT 4.9 10^3/uL (4.0-10.0)
[2019-06-07 14:50] LABS: ALBUMIN 3.4 GM/DL (3.2-5.2); ALT/SGPT 10 U/L (12-78); BILIRUBIN,TOTAL 0.2 MG/DL (0.2-1.0); BLOOD UREA NITROGEN 17 MG/DL (7-18); CALCIUM LEVEL 8.8 MG/DL (8.5-10.1); CARBON DIOXIDE LEVEL 23 MEQ/L (21-32); CHLORIDE LEVEL 111 MEQ/L (98-107); CREATININE FOR GFR 0.84 MG/DL (0.55-1.30); GLOMERULAR FILTRATION RATE > 60.0 (>60); GLUCOSE, FASTING 79 MG/DL (70-100); POTASSIUM SERUM 3.8 MEQ/L (3.5-5.1); SODIUM LEVEL 142 MEQ/L (136-145); TOTAL PROTEIN 6.1 GM/DL (6.4-8.2)
--- NOTE | 2019-06-07 14:50 | REP ---
INDICATION: Altered mental status PROCEDURE: CT head without contrast COMPARISON STUDIES: No prior similar studies FINDINGS: No acute bleed or acute large vessel territorial infarct. Ventricles, cisterns and sulci within normal limits. No mass effect or midline shift. No abnormal fluid collections. Paranasal sinuses and mastoid air cells are clear. CONCLUSION: No acute findings. Electronically Signed by Shiv Ayoub MD 06/07/2019 02:42 P
[2019-06-07 16:57] LABS: VALPROIC ACID (DEPAKOTE) 44.9 UG/ML (50.0-100.0)
[2019-06-07 17:37] LABS: AMPHETAMINES LEVEL URINE NEGATIVE (NEGATIVE); BARBITURATES URINE NEGATIVE (NEGATIVE); BENZODIAZEPINES URINE POSITIVE (NEGATIVE); CANNABINOIDS URINE NEGATIVE (NEGATIVE); COCAINE METABOLITE URINE NEGATIVE (NEGATIVE); METHADONE URINE NEGATIVE (NEGATIVE); OPIATES URINE NEGATIVE (NEGATIVE); PHENCYCLIDINE URINE NEGATIVE (NEGATIVE)
[2019-06-07 17:53] VITALS: BP 128/64
--- NOTE | 2019-06-08 10:14 | ECGEPIP ---
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
== END 2019-06-07 18:07 | disposition home or self-care (01) ==
LOC: M ED 12:36
DX: R41.83 Borderline intellectual functioning (principal); R42 Dizziness and giddiness; R00.1 Bradycardia, unspecified; G47.10 Hypersomnia, unspecified; K31.84 Gastroparesis; J45.909 Unspecified asthma, uncomplicated; E66.9 Obesity, unspecified; K21.9 Gastro-esophageal reflux disease without esophagitis; G40.909 Epilepsy, unspecified, not intractable, without status epilepticus; E03.9 Hypothyroidism, unspecified; F41.9 Anxiety disorder, unspecified; F42.9 Obsessive-compulsive disorder, unspecified; Z88.1 Allergy status to other antibiotic agents; Z79.51 Long term (current) use of inhaled steroids; Z79.52 Long term (current) use of systemic steroids; Z79.899 Other long term (current) drug therapy

== ENCOUNTER 2019-07-25 11:55 | Day surgery (SDC) | payer MEDICARE, MEDICAID ==
[~2019-07-25] VITALS: Ht 165.1 cm; Wt 77.6 kg
[~2019-07-25 11:55] MED LIST changes: +ALBU83IN INH; +CLOB10TA PO; +DIVA250T67; +FLUTISP; +KETO2SHA9 TOP; +LIDOCAINE 1% MDV 20ML VIAL SQ PRN; +LORA1TAB4 PO; +LR 1,000 ML IV ONE; -MONT10TA2 PO; +MONT10TA4 PO; +TERB1CRE2 TOP
[2019-07-25 12:57] LABS: HEMATOCRIT 38.2 % (36.0-47.0); HEMOGLOBIN 12.2 g/dl (12.0-15.5); MEAN CORPUSCULAR HEMOGLOBIN 30.5 pg (27.0-33.0); MEAN CORPUSCULAR HGB CONC 31.9 g/dl (32.0-36.5); MEAN CORPUSCULAR VOLUME 95.5 fl (80.0-96.0); PLATELET COUNT, AUTOMATED 253 10^3/uL (150-450); WHITE BLOOD COUNT 6.7 10^3/uL (4.0-10.0)
[2019-07-25] MEDS ORDERED: dexameTHASONE 4 MG/ML 1ML VIAL (J1100) As Ordered ONE (13:01)
[2019-07-25] MEDS ORDERED: propofoL 200 MG/20 ML VIAL As Ordered ONE (13:01)
[2019-07-25] MEDS ORDERED: KETOROLAC 60 MG/2 ML VIAL (J1885) As Ordered ONE (13:01)
[2019-07-25] MEDS ORDERED: LIDOCAINE 2% INJ 100 MG/5 ML SDV (FOR ANES.) As Ordered ONE (13:01)
[2019-07-25] MEDS ORDERED: MIDAZOLAM INJ 2 MG/2 ML VIAL (J2250) As Ordered ONE (13:02)
[2019-07-25] MEDS ORDERED: fentaNYL 100 MCG/2 ML INJECTION (J3010) As Ordered ONE (13:02)
[2019-07-25] MEDS ORDERED: ePHEDrine SULFATE 25 MG/5 ML(5MG/ML) SYRINGE As Ordered ONE (13:46)
[2019-07-25] MEDS ORDERED: ONDANSETRON 4MG/2ML VIAL (J2405) As Ordered ONE (13:53)
[2019-07-25] MEDS ORDERED: ACETAMINOPHEN 1000MG 100ML IV BTL (OFIRMEV) (J0131 PER 10MG) As Ordered ONE (14:06)
--- NOTE | 2019-07-25 14:32 | ROOPDOC ---
[facility] Report Of Operation Report of Operation DATE OF PROCEDURE: 07/25/19 DATE OF PROCEDURE: 08/20/2018 PREOPERATIVE DIAGNOSIS: Abnormal uterine bleeding. POSTOPERATIVE DIAGNOSES: 1. Abnormal uterine bleeding. 2. Endometrial polyp. OPERATIVE PROCEDURE: Hysteroscopy, dilation and curettage with endometrial ablation using NovaSure. SURGEON: Neeta Hoffman MD TEACHING MANAGER: None. ANESTHESIA: General via laryngeal mask airway ESTIMATED BLOOD LOSS: 5 mL IV FLUIDS: 300 mL of lactated Ringer's solution. URINE OUTPUT: 50 mL SPECIMENS: Endometrial curetting. OPERATIVE FINDINGS: The patient cavity was obtained to be 6 x 4.3cm. Endometrial ablation lasted for 1 minute 27 seconds. Hysteroscopic findings rev ealedendometrial polyp, bilateral ostia was visualized.Post ablation hysteroscopic findings showed desiccation of the endometrium. DESCRIPTION OF OPERATION After informed consent was obtained and written consent was reviewed, the patient was brought to the operating room where she was placed under general anesthesia. She was then placed in the lithotomy position and was prepped and draped in a normal sterile fashion. A time out in the operating room was done identifying the patient, procedure performed as well as drug allergies. A bivalve speculum was placed revealing the cervix. The anterior lip of the cervix was grasped with single-tooth tenaculum. Uterine length was then obtained using uterine sound. The uterus was then sequentially dilated using Hanks dilators. Hysteroscope was then advanced through the endometrium. Revealing bilateral ostia with thickened endometrial. Otherwise unremarkable endometrial cavity. Hysteroscope was removed. The NovaSure device was then advanced. The uterine width was obtained to be 4.3cm, both the length and width was entered into the device. Cavity assessment was then performed. Endometrial ablation was then performed for approximately 1 minute, 27 seconds. The NovaSure device was then removed. The mesh was inspected and noted to be intact. Hysteroscope was then advanced through the cervical os and the endometrial cavity was once again inspected showing desiccation of endometrium. NovaSure device was then removed. Single-tooth tenaculum was removed. Tenaculum sites were noted be hemostatic. Speculum was then removed. The patient was then taken out of lithotomy position NEETA HOFFMAN MD. Jul 25, 2019 14:32
[2019-07-25] MEDS ORDERED: oxyCODONE 5MG TAB PO PRN (14:45)
[2019-07-25] MEDS ORDERED: HYDROMORPHONE HCL 0.5 MG/ 0.5 ML SYRINGE (J1170 PER 1) IV PRN (14:45)
[2019-07-25] MEDS ORDERED: fentaNYL 100 MCG/2 ML INJECTION (J3010) IV PRN (14:45)
[2019-07-25] MEDS ORDERED: PERCOCET 5MG/325MG TAB PO PRN (14:45)
[2019-07-25] MEDS ORDERED: LR 1,000 ML IV SCH (14:45)
[2019-07-25] MEDS ORDERED: ONDANSETRON 4MG/2ML VIAL (J2405) IV PRN (14:45)
[2019-07-25 16:20] VITALS: BP 105/57
[2019-07-25] MEDS ORDERED: KETOROLAC 30 MG/ML VIAL (J1885) IV SCH (20:00)
== END 2019-07-25 16:24 | disposition home or self-care (01) ==
LOC: M SDC 11:55
PROVIDERS: ATTEND Obstetrics & Gynecology
DX: N92.0 Excessive and frequent menstruation with regular cycle (principal); N84.0 Polyp of corpus uteri; E78.5 Hyperlipidemia, unspecified; E03.9 Hypothyroidism, unspecified; F41.9 Anxiety disorder, unspecified; G40.89 Other seizures; F81.9 Developmental disorder of scholastic skills, unspecified; Z88.1 Allergy status to other antibiotic agents; Z79.899 Other long term (current) drug therapy
CPT/HCPCS: 36415; 58563; 85027; 86850; 86900; 86901; 88305; J0131; J1100; J1885; J2250; J2405; J3010

== ENCOUNTER → 2019-09-20 | Outpatient (REF) | payer MEDICARE, MEDICAID ==
[~2019-09-20] MED LIST changes: +EQ A1CRE3 EX; -LIDOCAINE 1% MDV 20ML VIAL SQ PRN; -LR 1,000 ML IV ONE; -TERB1CRE12 EX
[2019-09-20 14:14] LABS: HEMATOCRIT 40.3 % (36.0-47.0)
== END ==
LOC: M PLALAB 11:02
PROVIDERS: ATTEND Family Medicine
DX: D75.89 Other specified diseases of blood and blood-forming organs (principal)

== ENCOUNTER → 2020-03-07 | Outpatient (CLI) | payer MEDICARE, MEDICAID ==
[~2020-03-07] MED LIST changes: +KETO2SHA8 TOP; -KETO2SHA9 TOP
[2020-03-07 10:32] LABS: APPEARANCE, URINE CLOUDY (CLEAR); BACTERIA, URINE AUTO 2+ (NEGATIVE); BILIRUBIN, URINE AUTO NEGATIVE (NEGATIVE); BLOOD, URINE BLOOD 1+ (NEGATIVE); COLOR, URINE YELLOW (YELLOW); GLUCOSE, URINE (UA) AUTO NEGATIVE (NEGATIVE); KETONE, URINE AUTO NEGATIVE (NEGATIVE); LEUKOCYTE ESTERASE, URINE AUTO 3+ (NEGATIVE); MUCUS, URINE SMALL (NEGATIVE); NITRITE, URINE AUTO NEGATIVE (NEGATIVE); PROTEIN, URINE AUTO NEGATIVE (NEGATIVE); RBC, URINE AUTO 11 /HPF (0-3); SPECIFIC GRAVITY URINE AUTO 1.014 (1.002-1.035); SQUAMOUS EPITHELIAL CELL UR AU 38 /HPF (0-6); UROBILINOGEN, URINE AUTO 0.2 mg/dL (0.0-2.0); WBC, URINE AUTO 19 /HPF (0-3)
[2020-03-07 11:10] LABS: HEMOGLOBIN A1c 5.7 %
[2020-03-07 11:26] LABS: MALB URINE SIEMENS 19.6 MG/L; MAU/CREAT RATIO 13.3 MCG/MG (0.0-30.0)
[2020-03-07 11:33] LABS: ALBUMIN 3.7 GM/DL (3.2-5.2); ALT/SGPT 16 U/L (12-78); BILIRUBIN,TOTAL 0.3 MG/DL (0.2-1.0); BLOOD UREA NITROGEN 11 MG/DL (7-18); CALCIUM LEVEL 8.8 MG/DL (8.5-10.1); CARBON DIOXIDE LEVEL 23 MEQ/L (21-32); CHLORIDE LEVEL 111 MEQ/L (98-107); CHOLESTEROL LEVEL 180 MG/DL (<200); CHOLESTEROL RISK RATIO 2.608 (<5); CREATININE FOR GFR 0.88 MG/DL (0.55-1.30); FREE T4 0.73 NG/DL (0.76-1.46); GLOMERULAR FILTRATION RATE > 60.0 (>60); GLUCOSE, FASTING 94 MG/DL (70-100); HDL CHOLESTEROL 69 MG/DL (>40); LDL CHOLESTEROL 80 MG/DL (<100); NON-HDL-C 111 MG/DL; POTASSIUM SERUM 4.9 MEQ/L (3.5-5.1); SODIUM LEVEL 138 MEQ/L (136-145); TOTAL PROTEIN 6.9 GM/DL (6.4-8.2); TRIGLYCERIDES LEVEL 157 MG/DL (<150)
[2020-03-07 11:37] LABS: VITAMIN B12 LEVEL 441 PG/ML (247-911)
== END ==
LOC: M LAB 09:19
PROVIDERS: ATTEND Family Medicine
DX: R73.01 Impaired fasting glucose (principal); R56.9 Unspecified convulsions; E78.5 Hyperlipidemia, unspecified

== ENCOUNTER 2020-03-28 14:13 | Inpatient (IN) | payer MEDICAID, MEDICARE ==
[~2020-03-28 14:13] MED LIST changes: -MONT10TA4 PO; +MONT5TAB2 PO
[2020-03-28 16:24] LABS: HEMATOCRIT 47.2 % (36.0-47.0); HEMOGLOBIN 14.6 g/dl (12.0-15.5); MEAN CORPUSCULAR HEMOGLOBIN 29.5 pg (27.0-33.0); MEAN CORPUSCULAR HGB CONC 30.9 g/dl (32.0-36.5); MEAN CORPUSCULAR VOLUME 95.4 fl (80.0-96.0); PLATELET COUNT, AUTOMATED 269 10^3/uL (150-450); RED BLOOD COUNT 4.95 10^6/uL (4.00-5.40); WHITE BLOOD COUNT 7.5 10^3/uL (4.0-10.0)
[2020-03-28 16:48] LABS: HCG, SERUM QUALITATIVE NEGATIVE (NEGATIVE)
[2020-03-28 16:54] LABS: AMPHETAMINES LEVEL URINE NEGATIVE (NEGATIVE); BARBITURATES URINE NEGATIVE (NEGATIVE); BENZODIAZEPINES URINE POSITIVE (NEGATIVE); CANNABINOIDS URINE NEGATIVE (NEGATIVE); COCAINE METABOLITE URINE NEGATIVE (NEGATIVE); METHADONE URINE NEGATIVE (NEGATIVE); OPIATES URINE NEGATIVE (NEGATIVE); PHENCYCLIDINE URINE NEGATIVE (NEGATIVE)
[2020-03-28 17:15] LABS: ACETAMINOPHEN LEVEL < 2.0 UG/ML (10.0-30.0); ALBUMIN 4.1 GM/DL (3.2-5.2); ALT/SGPT 15 U/L (12-78); BILIRUBIN,DIRECT < 0.1 MG/DL (0.0-0.2); BILIRUBIN,TOTAL 0.3 MG/DL (0.2-1.0); BLOOD UREA NITROGEN 10 MG/DL (7-18); CALCIUM LEVEL 9.2 MG/DL (8.5-10.1); CARBON DIOXIDE LEVEL 26 MEQ/L (21-32); CHLORIDE LEVEL 110 MEQ/L (98-107); CREATININE FOR GFR 0.97 MG/DL (0.55-1.30); ETHYL ALCOHOL (ETHANOL) 0.004 % (0.000-0.010); GLOMERULAR FILTRATION RATE > 60.0 (>60); GLUCOSE, FASTING 104 MG/DL (70-100); POTASSIUM SERUM 3.9 MEQ/L (3.5-5.1); SALICYLATE LEVEL < 1.7 MG/DL (5.0-30.0); SODIUM LEVEL 142 MEQ/L (136-145); TOTAL PROTEIN 7.5 GM/DL (6.4-8.2)
[2020-03-28] MEDS ORDERED: ALBUTEROL SULFATE 2.5 MG/0.5 ML INH NEB SOLN INH PRN (20:00)
[2020-03-28] MEDS ORDERED: MOM 30ML SUSPENSION UDC PO PRN (20:00)
[2020-03-28 20:58] VITALS: BP 131/82
[2020-03-28] MEDS: MONTELUKAST 10 MG TAB PO SCH (21:25)
[2020-03-28] MEDS: traZODone 50 MG TAB PO PRN (21:25)
[2020-03-28] MEDS: ZONISAMIDE 100 MG CAP (ZONEGRAN) PO SCH (23:11)
[2020-03-28] MEDS: CLOBAZAM 10 MG PO SCH (23:18)
[2020-03-29 06:10] VITALS: BP 130/65
[2020-03-29] MEDS: LEVOTHYROXINE 25MCG TABLET (0.025MG) PO SCH (06:12)
[2020-03-29] MEDS: LORATADINE 10 MG TAB PO SCH (09:01)
[2020-03-29] MEDS: ATORVASTATIN 20 MG TAB PO SCH (09:01)
[2020-03-29] MEDS: ZONISAMIDE 100 MG CAP (ZONEGRAN) PO SCH ×2 (09:01→20:53)
[2020-03-29] MEDS: FLUTICASONE PROP 0.05% NASAL SPRAY 16 GM (FLONASE) SCH (09:02)
[2020-03-29] MEDS: CLOBAZAM 10 MG PO SCH ×2 (09:09→21:02)
--- NOTE | 2020-03-29 11:01 | MHHPEPDOC ---
[facility] History & Physical History and Physical DATE OF ADMISSION: Mar 28, 2020 at 19:50 HPI: Shabnam presents today for a follow up in the inpatient mental health unit. She reports there are voices in her head that are telling her to kill her mom. She states that she has had this problem before, and she doesnt remember the last time it happened. She notes that she has been in a mental inpatient unit before for the auditory hallucinations, but it was a long time ago. She mentions that she takes medication at home for the auditory hallucinations. She wants to call her mother, and she doesnt know if her mother has mental health problems. She doesnt live with her mother. She states that she still has thoughts about killing her mother, but she doesnt have any ideas about how to kill her mother. She reports that she has never killed anyone before, and the only person she wants to kill is her mother. She states that she is angry at her, but she doesnt know why. Objective Behavior: Eye contact poor. Speech: Speech isnt fluid, but appears to have some speech impediment. Cognition: Slow to baseline. Thought Form: Associations mildly distorted. Thought Content: Reports homicidal thoughts and auditory hallucinations. No evidence of suicidal ideation. No thoughts of self harm. Judgement: Poor. Insight: Poor. 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 Well titrate carefully as she does have a complex partial seizure problem. Currently, on Zonegran and Clonazepam, which appeared to control it; however, well keep mindful of any interactions. Low risk for neuroleptic related decrease seizure threshold. Low threshold to cogneurology. Estimate by this date is two to four days. Risk to others and to altered thoughts. Family history is not able to be obtained. Patient generally poor historian overall. Information gleaned as much as possible from patient and combination of notes. Vital Signs Vital Signs Date Time Temp Pulse Resp B/P (MAP) Pulse Ox O2 Delivery O2 Flow Rate FiO2 03/29/20 09:40 Room Air 03/29/20 06:10 98.2 89 18 130/65 (86) 03/28/20 20:58 98 Laboratory Data 24H Labs Laboratory Tests 2 03/28/20 15:57: Nucleated Red Blood Cells % (auto) 0.0, Anion Gap 6L, Glomerular Filtration Rate > 60.0, Calcium Level 9.2, Total Bilirubin 0.3, Direct Bilirubin < 0.1, Aspartate Amino Transf (AST/SGOT) 9, Alanine Aminotransferase (ALT/SGPT) 15, Alkaline Phosphatase 102, Total Protein 7.5, Albumin 4.1, Albumin/Globulin Ratio 1.2, Thyroid Stimulating Hormone (TSH) 1.830, Human Chorionic Gonadotropin, Qual NEGATIVE, Salicylates Level < 1.7L, Urine Opiates Screen NEGATIVE, Urine Methadone Screen NEGATIVE, Acetaminophen Level < 2.0L, Urine Barbiturates Screen NEGATIVE, Urine Phencyclidine Screen NEGATIVE, Urine Amphetamines Screen NEGATIVE, Urine Benzodiazepines Screen POSITIVEH, Urine Cocaine Metabolite Screen NEGATIVE, Urine Cannabinoids Screen NEGATIVE, Ethyl Alcohol Level 0.004 CBC/BMP Laboratory Tests 03/28/20 15:57 Medications Scheduled Atorvastatin Calcium (Lipitor) 20 Mg Tab, 20 MG PO DAILY, (Reported) Calcium Carbonate/Vitamin D3 (Calcium 600-Vit D3 200 Tablet) 1 Tab Tab, 1 TAB PO BID, (Reported) Clobazam (Clobazam) 10 Mg Tablet, 15 MG PO BID, (Reported) Ergocalciferol (Vitamin D2) (Vitamin D2) 50,000 Units Cap, 50,000 UNITS PO Q2WK, (Reported) EVERY OTHER THURSDAY Fluticasone Propionate (Fluticasone Propionate) 16 Gm [place].susp, 2 SPRAYS NA DAILY, (Reported) Levothyroxine Sodium (Levothyroxine Sodium) 25 Mcg Tab, 25 MCG PO DAILY, (Reported) Loratadine (Loratadine) 10 Mg Tab, 10 MG PO DAILY, (Reported) Montelukast Sodium (Montelukast Sodium) 10 Mg Tab, 10 MG PO QHS, (Reported) Zonisamide (Zonisamide) 100 Mg Cap, 200 MG PO BID, (Reported) Scheduled PRN Albuterol Sulf (Albuterol Sulfate) 2.5 Mg/3 Ml Vial.neb, 2.5 MG INH QID PRN for SOB/WHEEZING, (Reported) Ketoconazole (Ketoconazole) 120 Ml Shampoo, 1 DOSE TOP 3XW PRN for RASH, (Repo rted) Allergies Coded Allergies: Cephalosporins (Verified Allergy, Intermediate, HIVES, 03/28/20) cefaclor (Verified Allergy, Unknown, 2/18/20) lamotrigine (Verified Adverse Reaction, Severe, SJS, 07/12/19) YIMI LAU DO Mar 29, 2020 11:01
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
[2020-03-29 18:08] VITALS: BP 118/69
[2020-03-29] MEDS: ARIPiprazole 2 MG TAB PO SCH (20:53)
[2020-03-29] MEDS: MONTELUKAST 10 MG TAB PO SCH (20:53)
[2020-03-30 06:22] VITALS: BP 121/60
[2020-03-30] MEDS: LEVOTHYROXINE 25MCG TABLET (0.025MG) PO SCH (06:23)
[2020-03-30] MEDS: LORATADINE 10 MG TAB PO SCH (09:11)
[2020-03-30] MEDS: FLUTICASONE PROP 0.05% NASAL SPRAY 16 GM (FLONASE) SCH (09:11)
[2020-03-30] MEDS: ATORVASTATIN 20 MG TAB PO SCH (09:12)
[2020-03-30] MEDS: CLOBAZAM 10 MG PO SCH ×2 (09:13→21:21)
--- NOTE | 2020-03-30 10:07 | MHIPNPDOC ---
[facility] Progress Note Progress Note DATE OF SERVICE: 03/30/20 HPI: Patients attempted to be seen today, however, she is still quite distorted. Shes nearly catatonic and is unable to respond to many discussions. She husam mccoy is unable to communicate in single words. She was admitted overnight after reportedly making suicidal statements, but she had poor memory of the reported events. She appears to have decompensated quite a bit. No notable history of suicide attempts. Family history unclear at this time. Social history had been living with mother. No known substance use problems at this time. U hernan to obtain other information. MEDICAL HISTORY: The patient has a medical history significant for its two previous submissions last several weeks ago when she was started on Abilify for psychotic illness. Objective Speech: Broken and sparse. Slowed speaking. Repetitive words. Judgement: Poor. Insight: Poor. 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 Will discontinue Abilify, Zyprexa, and Haldol. Shes likely catatonic which could be causing her difficulties with catatonia. Well start Ativan 0.5 mg BID; recommend solderer production line provider to be cautious with neuroleptic as she resolves as it could provoke more catatonia. Low threshold for 1 to 1 sitter due to unusual behavior. Estimate length of stay is 3-5 days. Vital Signs Vital Signs Date Time Temp Pulse Resp B/P (MAP) Pulse Ox O2 Delivery O2 Flow Rate FiO2 03/30/20 06:22 98.0 89 14 121/60 (80) Room Air 03/28/20 20:58 98 Current Medications Current Medications Medications (Trade) Dose Ordered Sig/Jonathan Route PRN Reason Start Time Stop Time Status Last Admin Dose Admin Acetaminophen (Tylenol Tab) 650 mg Q6HP PRN PO HEADACHE or DISCOMFORT 03/28/20 20:00 Al Hydrox/Mg Hydrox/Simethicone (Mylanta) 30 ml Q4HP PRN PO HEARTBURN/INDIGESTION 03/28/20 20:00 Albuterol Sulfate (Proventil Neb) 2.5 mg QID PRN INH SOB/WHEEZING 03/28/20 20:00 Aripiprazole (AbiLIFY) 2 mg QHS PO 03/29/20 21:00 03/29/20 20:53 Atorvastatin Calcium (Lipitor) 20 mg DAILY PO 03/29/20 09:00 03/30/20 09:12 Fluticasone Propionate (Flonase 0.05% Nasal [place]) 2 spray DAILY NA 03/29/20 09:00 03/30/20 09:11 Home Med (Med Rec Complete!) ASDIRECTED XX 03/28/20 17:45 03/28/20 17:39 DC Levothyroxine Sodium (Synthroid) 25 mcg DAILY@0600 PO 03/29/20 06:00 03/30/20 06:23 Loratadine (Claritin) 10 mg DAILY PO 03/29/20 09:00 03/30/20 09:11 Magnesium Hydroxide (Milk Of Magnesia) 30 ml DAILYPRN PRN PO CONSTIPATION 03/28/20 20:00 Miscellaneous (Unresolved Patient Own Med Order) SEE LABEL COMMENTS DAILY XX 03/28/20 09:00 03/28/20 22:25 DC Montelukast Sodium (Singulair) 10 mg QHS PO 03/28/20 21:00 03/29/20 20:53 Olanzapine (ZyPREXA ZYDIS) 10 mg Q4HP PRN PO AGITATION/ANXIETY 03/28/20 20:00 Patient Own Medication (Patient'S Own Med) Clobazam 10mg TABS: ADMINIS... BID PO 03/28/20 21:00 03/30/20 09:13 Patient Own Medication (Pt Own Med *Controlled Subst*) Clobazam 10mg TABS: ADMINIS... BID PO 03/28/20 21:00 03/28/20 22:49 DC Trazodone HCl (Desyrel) 50 mg QHSP PRN PO INSOMNIA 03/28/20 20:00 03/28/20 21:25 Zonisamide (Zonegran) 200 mg BID PO 03/28/20 21:00 03/29/20 20:53 Allergies Coded Allergies: Cephalosporins (Verified Allergy, Intermediate, HIVES, 03/28/20) cefaclor (Verified Allergy, Unknown, 07/12/19) lamotrigine (Verified Adverse Reaction, Severe, SJS, 07/12/19) YIMI LAU DO Mar 30, 2020 10:07
[2020-03-30] MEDS: ZONISAMIDE 100 MG CAP (ZONEGRAN) PO SCH ×2 (10:57→21:19)
[2020-03-30] MEDS ORDERED: CLOBAZAM 10 MG PO SCH (11:44)
[2020-03-30 18:39] VITALS: BP 126/73
[2020-03-30] MEDS: MONTELUKAST 10 MG TAB PO SCH (21:19)
[2020-03-30] MEDS: ARIPiprazole 2 MG TAB PO SCH (21:19)
[2020-03-31] MEDS: LEVOTHYROXINE 25MCG TABLET (0.025MG) PO SCH (06:09)
[2020-03-31 07:06] VITALS: BP 112/57
[2020-03-31] MEDS: FLUTICASONE PROP 0.05% NASAL SPRAY 16 GM (FLONASE) SCH (09:02)
[2020-03-31] MEDS: LORATADINE 10 MG TAB PO SCH (09:03)
[2020-03-31] MEDS: ATORVASTATIN 20 MG TAB PO SCH (09:03)
[2020-03-31] MEDS: ZONISAMIDE 100 MG CAP (ZONEGRAN) PO SCH ×2 (09:03→20:59)
[2020-03-31] MEDS: CLOBAZAM 10 MG PO SCH ×2 (09:05→21:08)
[2020-03-31 17:35] VITALS: BP 115/66
[2020-03-31] MEDS: ARIPiprazole 2 MG TAB PO SCH (20:59)
[2020-03-31] MEDS: MONTELUKAST 10 MG TAB PO SCH (20:59)
[2020-04-01] MEDS: LEVOTHYROXINE 25MCG TABLET (0.025MG) PO SCH (05:47)
[2020-04-01] MEDS: MAALOX 30 ML SUSP *UDC PO PRN ×2 (06:44→20:09)
[2020-04-01 06:50] VITALS: BP 122/67
[2020-04-01] MEDS: ZONISAMIDE 100 MG CAP (ZONEGRAN) PO SCH ×2 (09:37→20:04)
[2020-04-01] MEDS: FLUTICASONE PROP 0.05% NASAL SPRAY 16 GM (FLONASE) SCH (09:37)
[2020-04-01] MEDS: LORATADINE 10 MG TAB PO SCH (09:38)
[2020-04-01] MEDS: ATORVASTATIN 20 MG TAB PO SCH (09:38)
[2020-04-01] MEDS: CLOBAZAM 10 MG PO SCH ×2 (09:39→20:09)
[2020-04-01 18:46] VITALS: BP 115/61
[2020-04-01] MEDS: ARIPiprazole 2 MG TAB PO SCH (20:03)
[2020-04-01] MEDS: MONTELUKAST 10 MG TAB PO SCH (20:03)
[2020-04-02 06:09] VITALS: BP 114/57
[2020-04-02] MEDS: LEVOTHYROXINE 25MCG TABLET (0.025MG) PO SCH (06:24)
--- NOTE | 2020-04-02 07:48 | MHIPN ---
PSYCHIATRIC DATE: 03/31/2020 The patient today states, "I'm not ready to get out yet." She says that she is still afraid that she might try to harm her mother. She is still angry at the mother. MENTAL STATUS EXAMINATION: The patient is alert, and she is oriented times three. She has a significant speech impediment, and so you have to ask her to repeat things multiple times. She says that her mood is "not good." Affect is appropriate to mood. She is not psychotic, but she is still having homicidal thoughts toward her mother. She denies suicidal thoughts. Concentration fair. Insight and judgment poor. DIAGNOSIS: Unspecified impulse control disorder. TREATMENT PLAN: At this point, we will continue to monitor the patient for homicidal thoughts and her depression. She did say that she was having auditory hallucinations upon admission, but I did not elicit any such psychotic symptoms at this point. She was just started on Abilify, and I discussed with the patient she needs to give the Abilify a little more time to work. AYO
[2020-04-02] MEDS: LORATADINE 10 MG TAB PO SCH (09:10)
[2020-04-02] MEDS: FLUTICASONE PROP 0.05% NASAL SPRAY 16 GM (FLONASE) SCH (09:10)
[2020-04-02] MEDS: ZONISAMIDE 100 MG CAP (ZONEGRAN) PO SCH ×2 (09:10→21:14)
[2020-04-02] MEDS: ATORVASTATIN 20 MG TAB PO SCH (09:10)
[2020-04-02] MEDS: CLOBAZAM 10 MG PO SCH ×2 (09:16→21:14)
[2020-04-02 16:06] VITALS: BP 120/74
[2020-04-02] MEDS: MONTELUKAST 10 MG TAB PO SCH (21:14)
[2020-04-02] MEDS: ARIPiprazole 2 MG TAB PO SCH (21:14)
[2020-04-03] MEDS: LEVOTHYROXINE 25MCG TABLET (0.025MG) PO SCH (06:31)
[2020-04-03 06:37] VITALS: BP 127/60
[2020-04-03] MEDS: FLUTICASONE PROP 0.05% NASAL SPRAY 16 GM (FLONASE) SCH (08:39)
[2020-04-03] MEDS: LORATADINE 10 MG TAB PO SCH (08:39)
[2020-04-03] MEDS: ZONISAMIDE 100 MG CAP (ZONEGRAN) PO SCH ×2 (08:40→21:27)
[2020-04-03] MEDS: ATORVASTATIN 20 MG TAB PO SCH (08:40)
[2020-04-03] MEDS: CLOBAZAM 10 MG PO SCH ×2 (08:47→21:26)
--- NOTE | 2020-04-03 10:40 | MHIPNPDOC ---
[facility] Progress Note Progress Note DATE OF SERVICE: 04/03/20 Subjective HPI: Shabnam presents today for a follow up. She asked multiple times if she can stay forever and asks if this would make people angry. Patient states that she still has thoughts of wanting to kill her mother and suicidal thoughts. She reports the thoughts are still problematic with hallucinations. She has little to say and is quite flat in her affect. Objective Appearance: Appears to be stated age. Well nourished. Fair hygiene. Affect: Appropriate to context. Flat. Speech: Stutter present. Normal rate. Normal volume. Cognition: Appears slow to baseline. Thought Form: Linear, associations are mildly loosened. Thought Content: No thoughts of self harm. No evidence of delusions. Reports homicidal and suicidal thoughts. Perception: Auditory hallucinations. Judgement: Poor. Insight: Poor. 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 Pateint will need to continue to stay as she is still having homicidal thoughts and auditory hallucinations. Her rationale for her continued want to stay is unclear. However, she is still having quite a bit of agitation towards the end of the day. Vital Signs Vital Signs Date Time Temp Pulse Resp B/P (MAP) Pulse Ox O2 Delivery O2 Flow Rate FiO2 04/03/20 06:37 98.0 100 16 127/60 (82) 04/02/20 06:09 97 Room Air Current Medications Current Medications Medications (Trade) Dose Ordered Sig/Jonathan Route PRN Reason Start Time Stop Time Status Last Admin Dose Admin Acetaminophen (Tylenol Tab) 650 mg Q6HP PRN PO HEADACHE or DISCOMFORT 03/28/20 20:00 Al Hydrox/Mg Hydrox/Simethicone (Mylanta) 30 ml Q4HP PRN PO HEARTBURN/INDIGESTION 03/28/20 20:00 04/01/20 20:09 Albuterol Sulfate (Proventil Neb) 2.5 mg QID PRN INH SOB/WHEEZING 03/28/20 20:00 Aripiprazole (AbiLIFY) 2 mg QHS PO 03/29/20 21:00 04/02/20 21:14 Atorvastatin Calcium (Lipitor) 20 mg DAILY PO 03/29/20 09:00 04/03/20 08:40 Fluticasone Propionate (Flonase 0.05% Nasal [place]) 2 spray DAILY NA 03/29/20 09:00 04/03/20 08:39 Home Med (Med Rec Complete!) ASDIRECTED XX 03/28/20 17:45 03/28/20 17:39 DC Levothyroxine Sodium (Synthroid) 25 mcg DAILY@0600 PO 03/29/20 06:00 04/03/20 06:31 Loratadine (Claritin) 10 mg DAILY PO 03/29/20 09:00 04/03/20 08:39 Magnesium Hydroxide (Milk Of Magnesia) 30 ml DAILYPRN PRN PO CONSTIPATION 03/28/20 20:00 Miscellaneous (Unresolved Patient Own Med Order) SEE LABEL COMMENTS DAILY XX 03/28/20 09:00 03/28/20 22:25 DC Montelukast Sodium (Singulair) 10 mg QHS PO 03/28/20 21:00 04/02/20 21:14 Olanzapine (ZyPREXA ZYDIS) 10 mg Q4HP PRN PO AGITATION/ANXIETY 03/28/20 20:00 Patient Own Medication (Patient'S Own Med) Clobazam 10mg TABS: ADMINIS... BID PO 03/28/20 21:00 03/30/20 11:44 DC 03/30/20 09:13 Patient Own Medication (Pt Own Med *Controlled Subst*) 1.5 TABS = (15MG) BID PO 03/30/20 21:00 04/03/20 08:47 Patient Own Medication (Pt Own Med *Controlled Subst*) Clobazam 10mg TABS: ADMINIS... BID PO 03/28/20 21:00 03/28/20 22:49 DC Patient Own Medication (Pt Own Med *Controlled Subst*) Clobazam 10mg TABS: ADMINIS... BID PO 03/30/20 11:44 03/30/20 11:44 DC Trazodone HCl (Desyrel) 50 mg QHSP PRN PO INSOMNIA 03/28/20 20:00 03/28/20 21:25 Zonisamide (Zonegran) 200 mg BID PO 03/28/20 21:00 04/03/20 08:40 Allergies Coded Allergies: Cephalosporins (Verified Allergy, Intermediate, HIVES, 03/28/20) cefaclor (Verified Allergy, Unknown, 07/12/19) lamotrigine (Verified Adverse Reaction, Severe, SJS, 07/12/19) YIMI LAU DO Apr 03, 2020 10:40
[2020-04-03 16:29] VITALS: BP 130/73
[2020-04-03] MEDS: MONTELUKAST 10 MG TAB PO SCH (21:27)
[2020-04-03] MEDS: ARIPiprazole 2 MG TAB PO SCH (21:28)
[2020-04-04] MEDS: LEVOTHYROXINE 25MCG TABLET (0.025MG) PO SCH (06:15)
[2020-04-04 07:16] VITALS: BP 131/73
[2020-04-04] MEDS: CLOBAZAM 10 MG PO SCH ×2 (09:08→20:47)
[2020-04-04] MEDS: LORATADINE 10 MG TAB PO SCH (09:10)
[2020-04-04] MEDS: FLUTICASONE PROP 0.05% NASAL SPRAY 16 GM (FLONASE) SCH (09:10)
[2020-04-04] MEDS: ZONISAMIDE 100 MG CAP (ZONEGRAN) PO SCH ×2 (09:11→20:48)
[2020-04-04] MEDS: ATORVASTATIN 20 MG TAB PO SCH (09:11)
--- NOTE | 2020-04-04 10:38 | MHIPNPDOC ---
[facility] Progress Note Progress Note DATE OF SERVICE: 04/04/20 HPI: Saad was met with today for a mental health exam. She continues to report that she wants to kill her mother and that she has suicidal thoughts, thinking about cutting her wrists. She has little else to say and reportedly got into an argument with her mother. She wants to stay here forever. Her mother is concerned about the safety of the patient. Objective Affect: Flat with little reactivity. Cognition: Slowed. Thought Form: Associations appear baseline. Loosened. Thought Content: Thoughts of self-harm through cutting. Suicidal ideation. Homicidal ideation towards mother. No evidence of delusions. Judgement: Poor. Insight: Poor. Assessment F71 Moderate intellectual disabilities F29 Unspecified psychosis not due to a substance or known physiological condition Plan Continue Abilify, 5 mg nightly. Will continue to slowly increase dosage. Long-term care could be examined. I feel it might be unlikely that they would accept her due to the history of intellectual disability. Will attempt to see if she's connected with [facility], who might be able to provide better housing options. She still currently lives at home, which appears to likely be the major issue as mother is frightened about taking her home. She does have a history of violence and last night when she was upset did have quite an episode of aggression, slamming the phone. Vital Signs Vital Signs Date Time Temp Pulse Resp B/P (MAP) Pulse Ox O2 Delivery O2 Flow Rate FiO2 04/04/20 07:16 97.4 103 16 131/73 (92) 04/02/20 06:09 97 Room Air Current Medications Current Medications Medications (Trade) Dose Ordered Sig/Jonathan Route PRN Reason Start Time Stop Time Status Last Admin Dose Admin Acetaminophen (Tylenol Tab) 650 mg Q6HP PRN PO HEADACHE or DISCOMFORT 03/28/20 20:00 Al Hydrox/Mg Hydrox/Simethicone (Mylanta) 30 ml Q4HP PRN PO HEARTBURN/INDIGESTION 03/28/20 20:00 04/01/20 20:09 Albuterol Sulfate (Proventil Neb) 2.5 mg QID PRN INH SOB/WHEEZING 03/28/20 20:00 Aripiprazole (AbiLIFY) 2 mg QHS PO 03/29/20 21:00 04/03/20 13:10 DC 04/02/20 21:14 Aripiprazole (AbiLIFY) 5 mg QHS PO 04/03/20 21:00 04/03/20 21:28 Atorvastatin Calcium (Lipitor) 20 mg DAILY PO 03/29/20 09:00 04/04/20 09:11 Fluticasone Propionate (Flonase 0.05% Nasal [place]) 2 spray DAILY NA 03/29/20 09:00 04/04/20 09:10 Home Med (Med Rec Complete!) ASDIRECTED XX 03/28/20 17:45 03/28/20 17:39 DC Levothyroxine Sodium (Synthroid) 25 mcg DAILY@0600 PO 03/29/20 06:00 04/04/20 06:15 Loratadine (Claritin) 10 mg DAILY PO 03/29/20 09:00 04/04/20 09:10 Magnesium Hydroxide (Milk Of Magnesia) 30 ml DAILYPRN PRN PO CONSTIPATION 03/28/20 20:00 Miscellaneous (Unresolved Patient Own Med Order) SEE LABEL COMMENTS DAILY XX 03/28/20 09:00 03/28/20 22:25 DC Montelukast Sodium (Singulair) 10 mg QHS PO 03/28/20 21:00 04/03/20 21:27 Olanzapine (ZyPREXA ZYDIS) 10 mg Q4HP PRN PO AGITATION/ANXIETY 03/28/20 20:00 Patient Own Medication (Patient'S Own Med) Clobazam 10mg TABS: ADMINIS... BID PO 03/28/20 21:00 03/30/20 11:44 DC 03/30/20 09:13 Patient Own Medication (Pt Own Med *Controlled Subst*) 1.5 TABS = (15MG) BID PO 03/30/20 21:00 04/04/20 09:08 Patient Own Medication (Pt Own Med *Controlled Subst*) Clobazam 10mg TABS: ADMINIS... BID PO 03/28/20 21:00 03/28/20 22:49 DC Patient Own Medication (Pt Own Med *Controlled Subst*) Clobazam 10mg TABS: ADMINIS... BID PO 03/30/20 11:44 03/30/20 11:44 DC Trazodone HCl (Desyrel) 50 mg QHSP PRN PO INSOMNIA 03/28/20 20:00 03/28/20 21:25 Zonisamide (Zonegran) 200 mg BID PO 03/28/20 21:00 04/04/20 09:11 Allergies Coded Allergies: Cephalosporins (Verified Allergy, Intermediate, HIVES, 03/28/20) cefaclor (Verified Allergy, Unknown, 07/12/19) lamotrigine (Verified Adverse Reaction, Severe, SJS, 07/12/19) YIMI LAU DO Apr 04, 2020 10:38
[2020-04-04 16:43] VITALS: BP 128/89
[2020-04-04] MEDS: MONTELUKAST 10 MG TAB PO SCH (20:48)
[2020-04-04] MEDS: ARIPiprazole 2 MG TAB PO SCH (20:48)
[2020-04-05] MEDS: LEVOTHYROXINE 25MCG TABLET (0.025MG) PO SCH (06:31)
[2020-04-05 06:41] VITALS: BP 132/51
[2020-04-05] MEDS: FLUTICASONE PROP 0.05% NASAL SPRAY 16 GM (FLONASE) SCH (08:39)
[2020-04-05] MEDS: CLOBAZAM 10 MG PO SCH ×2 (08:41→20:45)
[2020-04-05] MEDS: ZONISAMIDE 100 MG CAP (ZONEGRAN) PO SCH ×2 (08:42→21:24)
[2020-04-05] MEDS: LORATADINE 10 MG TAB PO SCH (08:42)
[2020-04-05] MEDS: ATORVASTATIN 20 MG TAB PO SCH (08:42)
--- NOTE | 2020-04-05 09:24 | MHIPN ---
DATE: 04/01/2020 SUBJECTIVE: The patient today tells me that she is still afraid that she might hurt her mom if she is discharged. She admits to hearing a voice sometimes telling her this. I tried to see if this was part of her own thinking or an actual voice, but it is very hard to have the patient differentiate and it is very difficult because of her speech impediment, a lot of times it is hard to follow exactly what she is saying. She did say that she slept good last night. MENTAL STATUS EXAMINATION: She is alert and oriented x3. Eye contact is fair. As I said, she has a speech impediment. There is no formal thought disorder noted. Her mood is not good. Affect is constricted, but appropriate to mood. She does say that she still hears a voice telling her to hurt her mom. As I have noted above, she denies suicidal thoughts, but she is still afraid that she might go ahead and hurt her mom. Concentration is fair. Insight and judgment are poor. DIAGNOSIS: Unspecified impulse control disorder. TREATMENT PLAN: At this point, we will continue to monitor the patient for her homicidal thoughts towards her mom and possible auditory hallucinations telling her to harm her mom. I am not sure if this is all part of her thinking or if these are actual hallucinations. She has been started on Abilify, and we will await further clinical response on that medication. AYO
--- NOTE | 2020-04-05 11:12 | MHIPNPDOC ---
[facility] Progress Note Progress Note DATE OF SERVICE: 04/05/20 Subjective HPI: The patient is met with today. She continues to report that she has suicidal thoughts and thoughts of wanting to hurt her mother. Shes unable to describe well and is a poor historian. Shes otherwise been behaving on the unit. MEDICATIONS: She reports she doesnt like the Abilify as her mom told her so. She reports that she doesnt like how it makes her feel. Objective Speech: Linear speech. Fluid at times, although difficult in production. Cognition: Baseline slowed. Thought Form: Associations appear attacked. Thought Content: Reports homicidal thoughts. Reports suicidal thoughts. Judgement: Poor. Insight: Poor. Assessment F33.1 Major depressive disorder, recurrent, moderate F29 Unspecified psychosis not due to a substance or known physiological c ondition Plan Plan is to discontinue Abilify and start Haldol 5 mg BID as a replacement for treatment as she does not want to try the Abilify, she could do well on it. Another antipsychotic to prevent aggression as she has a strong history of aggression per her mother. Vital Signs Vital Signs Date Time Temp Pulse Resp B/P (MAP) Pulse Ox O2 Delivery O2 Flow Rate FiO2 04/05/20 06:41 99.0 99 16 132/51 (78) 98 Room Air Current Medications Current Medications Medications (Trade) Dose Ordered Sig/Jonathan Route PRN Reason Start Time Stop Time Status Last Admin Dose Admin Acetaminophen (Tylenol Tab) 650 mg Q6HP PRN PO HEADACHE or DISCOMFORT 03/28/20 20:00 Al Hydrox/Mg Hydrox/Simethicone (Mylanta) 30 ml Q4HP PRN PO HEARTBURN/INDIGESTION 03/28/20 20:00 04/01/20 20:09 Albuterol Sulfate (Proventil Neb) 2.5 mg QID PRN INH SOB/WHEEZING 03/28/20 20:00 Aripiprazole (AbiLIFY) 2 mg QHS PO 03/29/20 21:00 04/03/20 13:10 DC 04/02/20 21:14 Aripiprazole (AbiLIFY) 5 mg QHS PO 04/03/20 21:00 04/04/20 20:48 Atorvastatin Calcium (Lipitor) 20 mg DAILY PO 03/29/20 09:00 04/05/20 08:42 Fluticasone Propionate (Flonase 0.05% Nasal [place]) 2 spray DAILY NA 03/29/20 09:00 04/05/20 08:39 Home Med (Med Rec Complete!) ASDIRECTED XX 03/28/20 17:45 03/28/20 17:39 DC Levothyroxine Sodium (Synthroid) 25 mcg DAILY@0600 PO 03/29/20 06:00 04/05/20 06:31 Loratadine (Claritin) 10 mg DAILY PO 03/29/20 09:00 04/05/20 08:42 Magnesium Hydroxide (Milk Of Magnesia) 30 ml DAILYPRN PRN PO CONSTIPATION 03/28/20 20:00 Miscellaneous (Unresolved Patient Own Med Order) SEE LABEL COMMENTS DAILY XX 03/28/20 09:00 03/28/20 22:25 DC Montelukast Sodium (Singulair) 10 mg QHS PO 03/28/20 21:00 04/04/20 20:48 Olanzapine (ZyPREXA ZYDIS) 10 mg Q4HP PRN PO AGITATION/ANXIETY 03/28/20 20:00 Patient Own Medication (Patient'S Own Med) Clobazam 10mg TABS: ADMINIS... BID PO 03/28/20 21:00 03/30/20 11:44 DC 03/30/20 09:13 Patient Own Medication (Pt Own Med *Controlled Subst*) 1.5 TABS = (15MG) BID PO 03/30/20 21:00 04/05/20 08:41 Patient Own Medication (Pt Own Med *Controlled Subst*) Clobazam 10mg TABS: ADMINIS... BID PO 03/28/20 21:00 03/28/20 22:49 DC Patient Own Medication (Pt Own Med *Controlled Subst*) Clobazam 10mg TABS: ADMINIS... BID PO 03/30/20 11:44 03/30/20 11:44 DC Trazodone HCl (Desyrel) 50 mg QHSP PRN PO INSOMNIA 03/28/20 20:00 03/28/20 21:25 Zonisamide (Zonegran) 200 mg BID PO 03/28/20 21:00 04/05/20 08:42 Allergies Coded Allergies: Cephalosporins (Verified Allergy, Intermediate, HIVES, 11/4/20) cefaclor (Verified Allergy, Unknown, 07/12/19) lamotrigine (Verified Adverse Reaction, Severe, SJS, 07/12/19) YIMI LAU DO Apr 05, 2020 11:12
[2020-04-05 17:24] VITALS: BP 126/81
[2020-04-05] MEDS: haloperidoL 5 MG TAB PO SCH (20:45)
[2020-04-05] MEDS: MONTELUKAST 10 MG TAB PO SCH (20:46)
[2020-04-05] MEDS: OLANZapine ORAL DISINTEGRATING TAB 5MG PO PRN (20:47)
[2020-04-06] MEDS: LEVOTHYROXINE 25MCG TABLET (0.025MG) PO SCH (06:09)
[2020-04-06 06:47] VITALS: BP 112/54
--- NOTE | 2020-04-06 08:40 | MHIPN ---
DATE: 04/02/2020 The patient today remains the same. She continues to say that she is afraid she might hurt her mother if she is discharged. She again says that sometimes she hears a voice telling her this and, again, it is very difficult to know if it is actually hallucination or her own thoughts. MENTAL STATUS EXAMINATION: This patient is alert and oriented times three. Eye contact is fair. She does have a significant speech impediment, so that you often have to ask her to repeat herself, and still it is hard to fully understand sometimes. She does say that her mood is not good. Her affect is constricted but appropriate to mood. She possibly may be having some auditory hallucinations. She denies suicidal ideation, but she is afraid that she might hurt her mother. Concentration is fair. Insight and judgment are poor. DIAGNOSIS: Unspecified impulse control disorder. TREATMENT PLAN: At this point, the patient continues to say she is worried she might hurt her mother. She may be possibly having hallucinations. We will continue to titrate her medications as indicated. So far, she seems to be tolerating the Abilify. AYO
[2020-04-06] MEDS: CLOBAZAM 10 MG PO SCH ×2 (08:43→20:47)
[2020-04-06] MEDS: FLUTICASONE PROP 0.05% NASAL SPRAY 16 GM (FLONASE) SCH (08:43)
[2020-04-06] MEDS: LORATADINE 10 MG TAB PO SCH (08:44)
[2020-04-06] MEDS: ZONISAMIDE 100 MG CAP (ZONEGRAN) PO SCH ×2 (08:44→20:48)
[2020-04-06] MEDS: ATORVASTATIN 20 MG TAB PO SCH (08:44)
[2020-04-06] MEDS: haloperidoL 5 MG TAB PO SCH ×2 (08:44→20:48)
--- NOTE | 2020-04-06 10:13 | MHIPNPDOC ---
[facility] Progress Note Progress Note DATE OF SERVICE: 04/06/20 Subjective HPI: Shabnam presents today for a check up. She reports that she still has thoughts of wanting to kill her mom. She has little to say and asks when she can go home. MEDICATIONS: Patient feels better on Haldol, but hasnt engaged in much else. Objective Appearance: Well nourished. Well groomed. Appears to be stated age. Affect: Flat. Cognition: Baseline slowed. Thought Form: Linear and goal directed. Thought Content: No evidence of delusions. No evidence of suicidal ideation. Homicidal thoughts towards mother. No thoughts of self harm. Judgement: Poor. Insight: Poor. 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 Continue Haldol this time. Further observation unclear if behavioral versus psychotic, however, she reports voices are improving. Vital Signs Vital Signs Date Time Temp Pulse Resp B/P (MAP) Pulse Ox O2 Delivery O2 Flow Rate FiO2 04/06/20 06:47 97.9 89 16 112/54 (73) 100 Room Air Current Medications Current Medications Medications (Trade) Dose Ordered Sig/Ojnathan Route PRN Reason Start Time Stop Time Status Last Admin Dose Admin Acetaminophen (Tylenol Tab) 650 mg Q6HP PRN PO HEADACHE or DISCOMFORT 03/28/20 20:00 Al Hydrox/Mg Hydrox/Simethicone (Mylanta) 30 ml Q4HP PRN PO HEARTBURN/INDIGESTION 03/28/20 20:00 04/01/20 20:09 Albuterol Sulfate (Proventil Neb) 2.5 mg QID PRN INH SOB/WHEEZING 03/28/20 20:00 Aripiprazole (AbiLIFY) 2 mg QHS PO 03/29/20 21:00 04/03/20 13:10 DC 04/02/20 21:14 Aripiprazole (AbiLIFY) 5 mg QHS PO 04/03/20 21:00 04/05/20 13:20 DC 04/04/20 20:48 Atorvastatin Calcium (Lipitor) 20 mg DAILY PO 03/29/20 09:00 04/06/20 08:44 Fluticasone Propionate (Flonase 0.05% Nasal [place]) 2 spray DAILY NA 03/29/20 09:00 04/06/20 08:43 Haloperidol (Haldol) 5 mg BID PO 04/05/20 21:00 04/06/20 08:44 Home Med (Med Rec Complete!) ASDIRECTED XX 03/28/20 17:45 03/28/20 17:39 DC Levothyroxine Sodium (Synthroid) 25 mcg DAILY@0600 PO 03/29/20 06:00 04/06/20 06:09 Loratadine (Claritin) 10 mg DAILY PO 03/29/20 09:00 04/06/20 08:44 Magnesium Hydroxide (Milk Of Magnesia) 30 ml DAILYPRN PRN PO CONSTIPATION 03/28/20 20:00 Miscellaneous (Unresolved Clarification Entry) SEE LABEL COMMENTS DAILY XX 04/06/20 09:00 Miscellaneous (Unresolved Patient Own Med Order) SEE LABEL COMMENTS DAILY XX 03/28/20 09:00 03/28/20 22:25 DC Montelukast Sodium (Singulair) 10 mg QHS PO 03/28/20 21:00 04/05/20 20:46 Olanzapine (ZyPREXA ZYDIS) 10 mg Q4HP PRN PO AGITATION/ANXIETY 03/28/20 20:00 04/05/20 20:47 Patient Own Medication (Patient'S Own Med) Clobazam 10mg TABS: ADMINIS... BID PO 03/28/20 21:00 03/30/20 11:44 DC 03/30/20 09:13 Patient Own Medication (Pt Own Med *Controlled Subst*) 1.5 TABS = (15MG) BID PO 03/30/20 21:00 04/06/20 08:43 Patient Own Medication (Pt Own Med *Controlled Subst*) Clobazam 10mg TABS: ADMINIS... BID PO 03/28/20 21:00 03/28/20 22:49 DC Patient Own Medication (Pt Own Med *Controlled Subst*) Clobazam 10mg TABS: ADMINIS... BID PO 03/30/20 11:44 03/30/20 11:44 DC Trazodone HCl (Desyrel) 50 mg QHSP PRN PO INSOMNIA 03/28/20 20:00 03/28/20 21:25 Zonisamide (Zonegran) 200 mg BID PO 03/28/20 21:00 04/06/20 08:44 Allergies Coded Allergies: Cephalosporins (Verified Allergy, Intermediate, HIVES, 03/28/20) cefaclor (Verified Allergy, Unknown, 07/12/19) lamotrigine (Verified Adverse Reaction, Severe, SJS, 07/12/19) YIMI LAU DO Apr 06, 2020 10:13
[2020-04-06 16:05] VITALS: BP 118/66
[2020-04-06] MEDS: MONTELUKAST 10 MG TAB PO SCH (20:48)
[2020-04-07 06:00] VITALS: BP 126/65
[2020-04-07] MEDS: LEVOTHYROXINE 25MCG TABLET (0.025MG) PO SCH (06:00)
[2020-04-07] MEDS: ZONISAMIDE 100 MG CAP (ZONEGRAN) PO SCH ×2 (08:39→20:22)
[2020-04-07] MEDS: CLOBAZAM 10 MG PO SCH ×2 (08:39→20:22)
[2020-04-07] MEDS: LORATADINE 10 MG TAB PO SCH (08:40)
[2020-04-07] MEDS: FLUTICASONE PROP 0.05% NASAL SPRAY 16 GM (FLONASE) SCH (08:40)
[2020-04-07] MEDS: ATORVASTATIN 20 MG TAB PO SCH (08:40)
[2020-04-07] MEDS: haloperidoL 5 MG TAB PO SCH ×2 (08:40→20:22)
[2020-04-07] MEDS: ACETAMINOPHEN TAB 650MG DOSE (2X325MG) PO PRN ×2 (13:08→20:24)
[2020-04-07 16:20] VITALS: BP 116/67
[2020-04-07] MEDS: MONTELUKAST 10 MG TAB PO SCH (20:23)
[2020-04-08] MEDS: LEVOTHYROXINE 25MCG TABLET (0.025MG) PO SCH (05:43)
[2020-04-08 06:04] VITALS: BP 120/59
[2020-04-08] MEDS: haloperidoL 5 MG TAB PO SCH ×2 (08:19→20:42)
[2020-04-08] MEDS: LORATADINE 10 MG TAB PO SCH (08:19)
[2020-04-08] MEDS: ATORVASTATIN 20 MG TAB PO SCH (08:19)
[2020-04-08] MEDS: FLUTICASONE PROP 0.05% NASAL SPRAY 16 GM (FLONASE) SCH (08:19)
[2020-04-08] MEDS: CLOBAZAM 10 MG PO SCH ×2 (08:19→20:41)
[2020-04-08] MEDS: ZONISAMIDE 100 MG CAP (ZONEGRAN) PO SCH ×2 (08:19→20:41)
[2020-04-08] MEDS: OLANZapine ORAL DISINTEGRATING TAB 5MG PO PRN (10:47)
[2020-04-08 16:20] VITALS: BP 124/75
[2020-04-08] MEDS: MONTELUKAST 10 MG TAB PO SCH (20:41)
[2020-04-09 06:25] VITALS: BP 123/78
[2020-04-09] MEDS: LEVOTHYROXINE 25MCG TABLET (0.025MG) PO SCH (06:33)
[2020-04-09] MEDS: ZONISAMIDE 100 MG CAP (ZONEGRAN) PO SCH ×2 (08:19→20:27)
[2020-04-09] MEDS: FLUTICASONE PROP 0.05% NASAL SPRAY 16 GM (FLONASE) SCH (08:19)
[2020-04-09] MEDS: ATORVASTATIN 20 MG TAB PO SCH (08:20)
[2020-04-09] MEDS: LORATADINE 10 MG TAB PO SCH (08:20)
[2020-04-09] MEDS: haloperidoL 5 MG TAB PO SCH ×2 (08:20→20:28)
[2020-04-09] MEDS: CLOBAZAM 10 MG PO SCH ×2 (08:26→20:27)
[2020-04-09] MEDS: OLANZapine ORAL DISINTEGRATING TAB 5MG PO PRN (09:49)
--- NOTE | 2020-04-09 11:09 | MHIPNPDOC ---
[facility] Progress Note Progress Note DATE OF SERVICE: 04/09/20 Subjective HPI: Shabnam presents today for homicidal thoughts. Patient is limited in discussion due to a speech impediment but describes she wants to hurt her mother and feels like she is not ready to go home. Patient is isolative sometimes and her support peers dont engage with her much. Objective Speech: Baseline. Stutter. Perception: Auditory hallucinations. Homicidal ideations. Judgement: Poor. Insight: Linear. 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 Will keep working with discharge planning to get better options for removing patient from mother. Vital Signs Vital Signs Date Time Temp Pulse Resp B/P (MAP) Pulse Ox O2 Delivery O2 Flow Rate FiO2 04/09/20 06:25 97.4 98 12 123/78 (93) Room Air 04/06/20 06:47 100 Current Medications Current Medications Medications (Trade) Dose Ordered Sig/Jonathan Route PRN Reason Start Time Stop Time Status Last Admin Dose Admin Acetaminophen (Tylenol Tab) 650 mg Q6HP PRN PO HEADACHE or DISCOMFORT 03/28/20 20:00 04/07/20 20:24 Al Hydrox/Mg Hydrox/Simethicone (Mylanta) 30 ml Q4HP PRN PO HEARTBURN/INDIGESTION 03/28/20 20:00 04/01/20 20:09 Albuterol Sulfate (Proventil Neb) 2.5 mg QID PRN INH SOB/WHEEZING 03/28/20 20:00 Aripiprazole (AbiLIFY) 2 mg QHS PO 03/29/20 21:00 04/03/20 13:10 DC 04/02/20 21:14 Aripiprazole (AbiLIFY) 5 mg QHS PO 04/03/20 21:00 04/05/20 13:20 DC 04/04/20 20:48 Atorvastatin Calcium (Lipitor) 20 mg DAILY PO 03/29/20 09:00 04/09/20 08:20 Fluticasone Propionate (Flonase 0.05% Nasal [place]) 2 spray DAILY NA 03/29/20 09:00 04/09/20 08:19 Haloperidol (Haldol) 5 mg BID PO 04/05/20 21:00 04/09/20 08:20 Home Med (Med Rec Complete!) ASDIRECTED XX 03/28/20 17:45 03/28/20 17:39 DC Levothyroxine Sodium (Synthroid) 25 mcg DAILY@0600 PO 03/29/20 06:00 04/09/20 06:33 Loratadine (Claritin) 10 mg DAILY PO 03/29/20 09:00 04/09/20 08:20 Magnesium Hydroxide (Milk Of Magnesia) 30 ml DAILYPRN PRN PO CONSTIPATION 03/28/20 20:00 Miscellaneous (Unresolved Clarification Entry) SEE LABEL COMMENTS DAILY XX 04/06/20 09:00 04/06/20 11:43 DC Miscellaneous (Unresolved Patient Own Med Order) SEE LABEL COMMENTS DAILY XX 03/28/20 09:00 03/28/20 22:25 DC Montelukast Sodium (Singulair) 10 mg QHS PO 03/28/20 21:00 04/08/20 20:41 Olanzapine (ZyPREXA ZYDIS) 10 mg Q4HP PRN PO AGITATION/ANXIETY 03/28/20 20:00 04/09/20 09:49 Patient Own Medication (Patient'S Own Med) Clobazam 10mg TABS: ADMINIS... BID PO 03/28/20 21:00 03/30/20 11:44 DC 03/30/20 09:13 Patient Own Medication (Pt Own Med *Controlled Subst*) 1.5 TABS = (15MG) BID PO 03/30/20 21:00 04/09/20 08:26 Patient Own Medication (Pt Own Med *Controlled Subst*) Clobazam 10mg TABS: ADMINIS... BID PO 03/28/20 21:00 03/28/20 22:49 DC Patient Own Medication (Pt Own Med *Controlled Subst*) Clobazam 10mg TABS: ADMINIS... BID PO 03/30/20 11:44 03/30/20 11:44 DC Trazodone HCl (Desyrel) 50 mg QHSP PRN PO INSOMNIA 03/28/20 20:00 03/28/20 21:25 Zonisamide (Zonegran) 200 mg BID PO 03/28/20 21:00 04/09/20 08:19 Allergies Coded Allergies: Cephalosporins (Verified Allergy, Intermediate, HIVES, 03/28/20) cefaclor (Verified Allergy, Unknown, 07/12/19) lamotrigine (Verified Adverse Reaction, Severe, SJS, 07/12/19) YIMI LAU DO Apr 09, 2020 11:09
[2020-04-09 17:50] VITALS: BP 130/77
[2020-04-09] MEDS: MONTELUKAST 10 MG TAB PO SCH (20:27)
[2020-04-10] MEDS: LEVOTHYROXINE 25MCG TABLET (0.025MG) PO SCH (05:33)
[2020-04-10 06:46] VITALS: BP 121/70
[2020-04-10] MEDS: OLANZapine ORAL DISINTEGRATING TAB 5MG PO PRN ×2 (07:55→15:00)
[2020-04-10] MEDS: ATORVASTATIN 20 MG TAB PO SCH (08:01)
[2020-04-10] MEDS: ZONISAMIDE 100 MG CAP (ZONEGRAN) PO SCH ×2 (08:01→20:28)
[2020-04-10] MEDS: haloperidoL 5 MG TAB PO SCH ×2 (08:02→20:28)
[2020-04-10] MEDS: LORATADINE 10 MG TAB PO SCH (08:02)
[2020-04-10] MEDS: CLOBAZAM 10 MG PO SCH ×2 (08:05→20:28)
[2020-04-10] MEDS: FLUTICASONE PROP 0.05% NASAL SPRAY 16 GM (FLONASE) SCH (08:05)
[2020-04-10] MEDS: MONTELUKAST 10 MG TAB PO SCH (20:28)
[2020-04-11] MEDS: LEVOTHYROXINE 25MCG TABLET (0.025MG) PO SCH (06:00)
[2020-04-11] MEDS: CLOBAZAM 10 MG PO SCH ×2 (09:00→20:25)
[2020-04-11] MEDS: FLUTICASONE PROP 0.05% NASAL SPRAY 16 GM (FLONASE) SCH (09:17)
[2020-04-11] MEDS: LORATADINE 10 MG TAB PO SCH (09:17)
[2020-04-11] MEDS: OLANZapine ORAL DISINTEGRATING TAB 5MG PO PRN (09:19)
[2020-04-11] MEDS: haloperidoL 5 MG TAB PO SCH ×2 (09:20→20:26)
[2020-04-11] MEDS: ZONISAMIDE 100 MG CAP (ZONEGRAN) PO SCH ×2 (09:21→20:26)
[2020-04-11] MEDS: ATORVASTATIN 20 MG TAB PO SCH (09:21)
--- NOTE | 2020-04-11 11:16 | MHIPN ---
DATE: 04/10/2020 HISTORY OF PRESENT ILLNESS: The patient today continues to say that she is still having thoughts that she might want to hurt her mother. She is vague as to whether she is still having any voices at this point. MENTAL STATUS EXAM: She is alert, she is oriented times 2. Eye contact is fair. Psychomotor activity is decreased she says. Her mood is depressed. Affect is constricted, but appropriate to mood. She is not suicidal, but has homicidal thoughts towards mom and it is not clear whether she is actually having auditory hallucinations or not. Concentration fair. Insight and judgment is poor. DIAGNOSES: 1. Other specified impulse control disorder. 2. Unspecified depressive disorder. 3. Mild intellectual disability. TREATMENT PLAN: At this point we will continue to monitor the patient who is still having homicidal thoughts towards mom. We will monitor her mood. She is on Haldol now and we will gradually continue to titrate the Haldol as indicated. DERIAND
[2020-04-11 18:03] VITALS: BP 139/76
[2020-04-11] MEDS: MONTELUKAST 10 MG TAB PO SCH (20:26)
[2020-04-12] MEDS: LEVOTHYROXINE 25MCG TABLET (0.025MG) PO SCH (05:38)
[2020-04-12 06:26] VITALS: BP 127/75
[2020-04-12] MEDS: ZONISAMIDE 100 MG CAP (ZONEGRAN) PO SCH ×2 (09:01→21:03)
[2020-04-12] MEDS: LORATADINE 10 MG TAB PO SCH (09:02)
[2020-04-12] MEDS: ATORVASTATIN 20 MG TAB PO SCH (09:02)
[2020-04-12] MEDS: CLOBAZAM 10 MG PO SCH ×2 (09:11→21:01)
[2020-04-12] MEDS: haloperidoL 5 MG TAB PO SCH ×2 (09:12→21:03)
[2020-04-12] MEDS: FLUTICASONE PROP 0.05% NASAL SPRAY 16 GM (FLONASE) SCH (09:15)
--- NOTE | 2020-04-12 10:29 | MHIPNPDOC ---
[facility] Progress Note Progress Note DATE OF SERVICE: 04/12/20 Subjective HPI: The patient is met with today for a follow-up. She reports that she feels fairly shaky and this has made her upset. The patient focuses on this. She has been taking the Zyprexa and Haldol which appears to have been causing her to get quite shaky. She continues to have homicidal thoughts to kill her mother and asked about when she could go home. The patient is amenable to the explanation from the discussion. Objective Appearance: Well nourished. Appears to be stated age. Well groomed. Affect: Flat. Speech: Baseline, stuttering. Cognition: Baseline, slow. Thought Form: Linear and goal directed. Thought Content: Evidence of homicidal ideation. Evidence of auditory hallucinations. No thoughts of self harm. No evidence of suicidal ideation. Judgement: Poor. Insight: Poor. Assessment F29 Unspecified psychosis not due to a substance or known physiological condition F71 Moderate intellectual disabilities Plan Continue Haldol 2.5 mg BID. Give Cogentin 1 mg and Propanolol 20 mg as is a one-time dose for akathisia. Discontinue Zyprexa and start Hydroxyzine as an alternative. Vital Signs Vital Signs Date Time Temp Pulse Resp B/P (MAP) Pulse Ox O2 Delivery O2 Flow Rate FiO2 04/12/20 06:26 98.7 101 16 127/75 (92) Room Air 04/06/20 06:47 100 Current Medications Current Medications Medications (Trade) Dose Ordered Sig/Jonathan Route PRN Reason Start Time Stop Time Status Last Admin Dose Admin Acetaminophen (Tylenol Tab) 650 mg Q6HP PRN PO HEADACHE or DISCOMFORT 03/28/20 20:00 04/07/20 20:24 Al Hydrox/Mg Hydrox/Simethicone (Mylanta) 30 ml Q4HP PRN PO HEARTBURN/INDIGESTION 03/28/20 20:00 04/01/20 20:09 Albuterol Sulfate (Proventil Neb) 2.5 mg QID PRN INH SOB/WHEEZING 03/28/20 20:00 Aripiprazole (AbiLIFY) 2 mg QHS PO 03/29/20 21:00 04/03/20 13:10 DC 04/02/20 21:14 Aripiprazole (AbiLIFY) 5 mg QHS PO 04/03/20 21:00 04/05/20 13:20 DC 04/04/20 20:48 Atorvastatin Calcium (Lipitor) 20 mg DAILY PO 03/29/20 09:00 04/12/20 09:02 Fluticasone Propionate (Flonase 0.05% Nasal [place]) 2 spray DAILY NA 03/29/20 09:00 04/12/20 09:15 Haloperidol (Haldol) 2.5 mg BID PO 04/09/20 21:00 04/12/20 09:12 Haloperidol (Haldol) 5 mg BID PO 04/05/20 21:00 04/09/20 12:03 DC 04/09/20 08:20 Home Med (Med Rec Complete!) ASDIRECTED XX 03/28/20 17:45 03/28/20 17:39 DC Levothyroxine Sodium (Synthroid) 25 mcg DAILY@0600 PO 03/29/20 06:00 04/12/20 05:38 Loratadine (Claritin) 10 mg DAILY PO 03/29/20 09:00 04/12/20 09:02 Magnesium Hydroxide (Milk Of Magnesia) 30 ml DAILYPRN PRN PO CONSTIPATION 03/28/20 20:00 Miscellaneous (Unresolved Clarification Entry) SEE LABEL COMMENTS DAILY XX 04/06/20 09:00 04/06/20 11:43 DC Miscellaneous (Unresolved Patient Own Med Order) SEE LABEL COMMENTS DAILY XX 03/28/20 09:00 03/28/20 22:25 DC Montelukast Sodium (Singulair) 10 mg QHS PO 03/28/20 21:00 04/11/20 20:26 Olanzapine (ZyPREXA ZYDIS) 10 mg Q4HP PRN PO AGITATION/ANXIETY 03/28/20 20:00 04/11/20 09:19 Patient Own Medication (Patient'S Own Med) Clobazam 10mg TABS: ADMINIS... BID PO 03/28/20 21:00 03/30/20 11:44 DC 03/30/20 09:13 Patient Own Medication (Pt Own Med *Controlled Subst*) 1.5 TABS = (15MG) BID PO 03/30/20 21:00 04/12/20 09:11 Patient Own Medication (Pt Own Med *Controlled Subst*) Clobazam 10mg TABS: ADMINIS... BID PO 03/28/20 21:00 03/28/20 22:49 DC Patient Own Medication (Pt Own Med *Controlled Subst*) Clobazam 10mg TABS: ADMINIS... BID PO 03/30/20 11:44 03/30/20 11:44 DC Trazodone HCl (Desyrel) 50 mg QHSP PRN PO INSOMNIA 03/28/20 20:00 03/28/20 21:25 Zonisamide (Zonegran) 200 mg BID PO 03/28/20 21:00 04/12/20 09:01 Allergies Coded Allergies: Cephalosporins (Verified Allergy, Intermediate, HIVES, 03/28/20) cefaclor (Verified Allergy, Unknown, 07/12/19) lamotrigine (Verified Adverse Reaction, Severe, SJS, 07/12/19) YIMI LAU DO Apr 12, 2020 10:29
[2020-04-12] MEDS ORDERED: PROPRANOLOL 20 MG TAB PO ONE (11:45)
[2020-04-12] MEDS ORDERED: BENZTROPINE 1 MG TAB PO ONE (11:45)
[2020-04-12 16:24] VITALS: BP 142/73
[2020-04-12] MEDS: MONTELUKAST 10 MG TAB PO SCH (21:03)
[2020-04-13] MEDS: LEVOTHYROXINE 25MCG TABLET (0.025MG) PO SCH (05:48)
[2020-04-13 06:27] VITALS: BP 141/68
[2020-04-13] MEDS: CLOBAZAM 10 MG PO SCH ×2 (08:14→20:22)
[2020-04-13] MEDS: ZONISAMIDE 100 MG CAP (ZONEGRAN) PO SCH ×2 (08:15→20:15)
[2020-04-13] MEDS: FLUTICASONE PROP 0.05% NASAL SPRAY 16 GM (FLONASE) SCH (08:15)
[2020-04-13] MEDS: LORATADINE 10 MG TAB PO SCH (08:16)
[2020-04-13] MEDS: haloperidoL 5 MG TAB PO SCH ×2 (08:16→20:15)
[2020-04-13] MEDS: ATORVASTATIN 20 MG TAB PO SCH (08:16)
[2020-04-13] MEDS: OLANZapine ORAL DISINTEGRATING TAB 5MG PO PRN (09:30)
[2020-04-13] MEDS: ACETAMINOPHEN TAB 650MG DOSE (2X325MG) PO PRN (09:30)
[2020-04-13] MEDS: hydrOXYzine 50 MG TAB PO PRN (09:30)
--- NOTE | 2020-04-13 09:44 | MHIPNPDOC ---
[facility] Progress Note Progress Note DATE OF SERVICE: 04/13/20 Subjective Copy HPI: Shabnam presents today for a follow up. She reports that she still notices the shakiness at times even after the stop of the Zyprexa. Patient reports she is happy about the potential to go to a different housing as she is still having thought of wanting to harm her mother, but is only constrained from her mother at this time. MEDICATIONS: She otherwise reports that the mixture of Cogentin and Propranolol was helpful yesterday. Objective Copy Affect: Full range. More Reactive. Speech: Normal rate. Stuttered. Normal volume. Cognition: Slow to baseline. Associations are loosened. Thought Form: Linear and goal directed. Thought Content: Reports voices at times. No thoughts of self harm. No evidence of suicidal ideation. Judgement: Poor. Insight: Poor. Assessment Copy F29 Unspecified psychosis not due to a substance or known physiological condition F71 Moderate intellectual disabilities Plan Copy Add PRN of Propranolol 20 milligrams every four hours. Add Cogentin 20 milligrams every four hours. Maintain the Haldol at 2.5 milligrams. Previous Zyprexa was changed to Hydroxyzine to help with shakiness. Will evaluate and remove Haldol if she does not improve. Still need to sort out her discharge plan in order rot have an effective discharge plan. However, it appears having a good OPWDD would be most ideal. Vital Signs Vital Signs Date Time Temp Pulse Resp B/P (MAP) Pulse Ox O2 Delivery O2 Flow Rate FiO2 04/13/20 06:27 98.0 94 14 141/68 (92) Room Air Current Medications Current Medications Medications (Trade) Dose Ordered Sig/Jonathan Route PRN Reason Start Time Stop Time Status Last Admin Dose Admin Acetaminophen (Tylenol Tab) 650 mg Q6HP PRN PO HEADACHE or DISCOMFORT 03/28/20 20:00 04/13/20 09:30 Al Hydrox/Mg Hydrox/Simethicone (Mylanta) 30 ml Q4HP PRN PO HEARTBURN/INDIGESTION 03/28/20 20:00 04/01/20 20:09 Albuterol Sulfate (Proventil Neb) 2.5 mg QID PRN INH SOB/WHEEZING 03/28/20 20:00 Aripiprazole (AbiLIFY) 2 mg QHS PO 03/29/20 21:00 04/03/20 13:10 DC 04/02/20 21:14 Aripiprazole (AbiLIFY) 5 mg QHS PO 04/03/20 21:00 04/05/20 13:20 DC 04/04/20 20:48 Atorvastatin Calcium (Lipitor) 20 mg DAILY PO 03/29/20 09:00 04/13/20 08:16 Fluticasone Propionate (Flonase 0.05% Nasal [place]) 2 spray DAILY NA 03/29/20 09:00 04/13/20 08:15 Haloperidol (Haldol) 2.5 mg BID PO 04/09/20 21:00 04/13/20 08:16 Haloperidol (Haldol) 5 mg BID PO 04/05/20 21:00 04/09/20 12:03 DC 04/09/20 08:20 Home Med (Med Rec Complete!) ASDIRECTED XX 03/28/20 17:45 03/28/20 17:39 DC Hydroxyzine HCl (Atarax) 50 mg Q4HP PRN PO anxiety 04/12/20 11:45 04/13/20 09:30 Levothyroxine Sodium (Synthroid) 25 mcg DAILY@0600 PO 03/29/20 06:00 04/13/20 05:48 Loratadine (Claritin) 10 mg DAILY PO 03/29/20 09:00 04/13/20 08:16 Magnesium Hydroxide (Milk Of Magnesia) 30 ml DAILYPRN PRN PO CONSTIPATION 03/28/20 20:00 Miscellaneous (Unresolved Clarification Entry) SEE LABEL COMMENTS DAILY XX 04/06/20 09:00 04/06/20 11:43 DC Miscellaneous (Unresolved Clarification Entry) SEE LABEL COMMENTS DAILY XX 04/12/20 09:00 04/12/20 13:49 DC Miscellaneous (Unresolved Patient Own Med Order) SEE LABEL COMMENTS DAILY XX 03/28/20 09:00 03/28/20 22:25 DC Montelukast Sodium (Singulair) 10 mg QHS PO 03/28/20 21:00 04/12/20 21:03 Olanzapine (ZyPREXA ZYDIS) 5 mg Q4HP PRN PO AGITATION/ANXIETY 04/12/20 11:45 04/13/20 09:30 Olanzapine (ZyPREXA ZYDIS) 10 mg Q4HP PRN PO AGITATION/ANXIETY 03/28/20 20:00 04/12/20 11:35 DC 04/11/20 09:19 Patient Own Medication (Patient'S Own Med) Clobazam 10mg TABS: ADMINIS... BID PO 03/28/20 21:00 03/30/20 11:44 DC 03/30/20 09:13 Patient Own Medication (Pt Own Med *Controlled Subst*) 1.5 TABS = (15MG) BID PO 03/30/20 21:00 04/13/20 08:14 Patient Own Medication (Pt Own Med *Controlled Subst*) Clobazam 10mg TABS: ADMINIS... BID PO 03/28/20 21:00 03/28/20 22:49 DC Patient Own Medication (Pt Own Med *Controlled Subst*) Clobazam 10mg TABS: ADMINIS... BID PO 03/30/20 11:44 03/30/20 11:44 DC Trazodone HCl (Desyrel) 50 mg QHSP PRN PO INSOMNIA 03/28/20 20:00 03/28/20 21:25 Zonisamide (Zonegran) 200 mg BID PO 03/28/20 21:00 04/13/20 08:15 Allergies Coded Allergies: Cephalosporins (Verified Allergy, Intermediate, HIVES, 03/28/20) cefaclor (Verified Allergy, Unknown, 07/12/19) lamotrigine (Verified Adverse Reaction, Severe, SJS, 07/12/19) YIMI LAU DO Apr 13, 2020 09:44
[2020-04-13] MEDS ORDERED: BENZTROPINE MESYLATE 2MG/2ML VIAL IM PRN (10:30)
[2020-04-13] MEDS: MONTELUKAST 10 MG TAB PO SCH (20:15)
[2020-04-14] MEDS: LEVOTHYROXINE 25MCG TABLET (0.025MG) PO SCH (05:55)
[2020-04-14 06:26] VITALS: BP 116/56
[2020-04-14] MEDS: ATORVASTATIN 20 MG TAB PO SCH (08:54)
[2020-04-14] MEDS: CLOBAZAM 10 MG PO SCH ×2 (08:54→20:23)
[2020-04-14] MEDS: ZONISAMIDE 100 MG CAP (ZONEGRAN) PO SCH ×2 (08:55→20:19)
[2020-04-14] MEDS: FLUTICASONE PROP 0.05% NASAL SPRAY 16 GM (FLONASE) SCH (08:55)
[2020-04-14] MEDS: LORATADINE 10 MG TAB PO SCH (08:55)
[2020-04-14] MEDS: haloperidoL 5 MG TAB PO SCH ×2 (08:55→20:19)
[2020-04-14] MEDS: PROPRANOLOL 20 MG TAB PO PRN ×2 (09:07→22:04)
[2020-04-14] MEDS: hydrOXYzine 50 MG TAB PO PRN ×2 (12:43→16:49)
[2020-04-14 16:00] VITALS: BP 103/52
[2020-04-14] MEDS: MONTELUKAST 10 MG TAB PO SCH (20:19)
[2020-04-15] MEDS: LEVOTHYROXINE 25MCG TABLET (0.025MG) PO SCH (05:46)
[2020-04-15 06:44] VITALS: BP 137/64
[2020-04-15] MEDS: LORATADINE 10 MG TAB PO SCH (08:34)
[2020-04-15] MEDS: FLUTICASONE PROP 0.05% NASAL SPRAY 16 GM (FLONASE) SCH (08:34)
[2020-04-15] MEDS: ATORVASTATIN 20 MG TAB PO SCH (08:34)
[2020-04-15] MEDS: ZONISAMIDE 100 MG CAP (ZONEGRAN) PO SCH ×2 (08:34→21:11)
[2020-04-15] MEDS: haloperidoL 5 MG TAB PO SCH ×2 (08:35→21:10)
[2020-04-15] MEDS: CLOBAZAM 10 MG PO SCH ×2 (08:40→21:15)
[2020-04-15] MEDS: hydrOXYzine 50 MG TAB PO PRN ×2 (08:50→14:19)
[2020-04-15] MEDS: ACETAMINOPHEN TAB 650MG DOSE (2X325MG) PO PRN (14:20)
[2020-04-15 18:46] VITALS: BP 145/89
[2020-04-15] MEDS: MONTELUKAST 10 MG TAB PO SCH (21:11)
[2020-04-16] MEDS: hydrOXYzine 50 MG TAB PO PRN (02:03)
[2020-04-16] MEDS: LEVOTHYROXINE 25MCG TABLET (0.025MG) PO SCH (06:13)
[2020-04-16 06:51] VITALS: BP 136/71
[2020-04-16] MEDS: CLOBAZAM 10 MG PO SCH ×2 (08:19→20:24)
[2020-04-16] MEDS: ATORVASTATIN 20 MG TAB PO SCH (08:21)
[2020-04-16] MEDS: FLUTICASONE PROP 0.05% NASAL SPRAY 16 GM (FLONASE) SCH (08:21)
[2020-04-16] MEDS: ZONISAMIDE 100 MG CAP (ZONEGRAN) PO SCH ×2 (08:21→20:17)
[2020-04-16] MEDS: LORATADINE 10 MG TAB PO SCH (08:22)
[2020-04-16] MEDS: haloperidoL 5 MG TAB PO SCH (08:22)
[2020-04-16 08:40] VITALS: BP 121/75
[2020-04-16] MEDS: PROPRANOLOL 20 MG TAB PO PRN (08:40)
--- NOTE | 2020-04-16 09:40 | MHIPNPDOC ---
[facility] Progress Note Progress Note DATE OF SERVICE: 04/16/20 HISTORY: The patient is met with today, she reports that she feels pleased about potentially going to [facility] or a another residential facility, she still reports feeling anxious about going home to her mother and that she might harm her. She reports still having thoughts of wanting to harm her mother but has no thoughts of harm anyone else has not been aggressive on the unit or engage in any concerning behavior. She reports that she does have some shakiness that continues and wonders about having a medication change. VITAL SIGNS: See below. NEW TEST RESULTS: None. CURRENT MEDICATIONS: See below. MENTAL STATUS EXAMINATION: General: [Well dressed with good hygiene] Speech: Baseline stutter Thought processes: Linear Thought content: [Future orientated] Abstract reasoning, and computation: Baseline impairment Description of associations: Baseline loosening Description of abnormal or psychotic thoughts: As above, denies any suicidal thoughts reports no significant recurrence of the auditory hallucinations Judgment: Limited at baseline Insight: Limited at baseline Orientation: [Alert and orientated 3] Recent and remote memory: Baseline Attention span and concentration: [Intact] Fund of knowledge: Baseline Mood: "Thank you so much" Affect: More reactive and engaged DIAGNOSES: 1. Unspecified psychotic disorder. 2. Intellectual disability moderate. 3. . ASSESSMENT: The patient appears to have had some shakiness from Haldol, we'll try an alternative such as a Rexulti, as she had done well on Abilify. I believe the placement will likely be a suitable option for her as appears her homicidal thoughts or isolated purely to her mother and have not manifested with any aggressive behavior on her unit. MANAGEMENT PLAN: We'll start Rexulti 0.5 mg daily, discontinue Haldol continue propranolol and Cogentin for EPS. Continue to pursue placement as this will likely help ensure safety for all parties TIME SPENT: 15 minutes. Vital Signs Vital Signs Date Time Temp Pulse Resp B/P (MAP) Pulse Ox O2 Delivery O2 Flow Rate FiO2 04/16/20 08:40 88 121/75 04/16/20 06:51 97.1 16 98 Room Air Current Medications Current Medications Medications (Trade) Dose Ordered Sig/Jonathan Route PRN Reason Start Time Stop Time Status Last Admin Dose Admin Acetaminophen (Tylenol Tab) 650 mg Q6HP PRN PO HEADACHE or DISCOMFORT 03/28/20 20:00 04/15/20 14:20 Al Hydrox/Mg Hydrox/Simethicone (Mylanta) 30 ml Q4HP PRN PO HEARTBURN/INDIGESTION 03/28/20 20:00 04/01/20 20:09 Albuterol Sulfate (Proventil Neb) 2.5 mg QID PRN INH SOB/WHEEZING 03/28/20 20:00 Aripiprazole (AbiLIFY) 2 mg QHS PO 03/29/20 21:00 04/03/20 13:10 DC 04/02/20 21:14 Aripiprazole (AbiLIFY) 5 mg QHS PO 04/03/20 21:00 04/05/20 13:20 DC 04/04/20 20:48 Atorvastatin Calcium (Lipitor) 20 mg DAILY PO 03/29/20 09:00 04/16/20 08:21 Benztropine Mesylate (Cogentin) 1 mg Q6HP PRN IM eps 04/13/20 10:30 Fluticasone Propionate (Flonase 0.05% Nasal [place]) 2 spray DAILY NA 03/29/20 09:00 04/16/20 08:21 Haloperidol (Haldol) 2.5 mg BID PO 04/09/20 21:00 04/16/20 08:22 Haloperidol (Haldol) 5 mg BID PO 04/05/20 21:00 04/09/20 12:03 DC 04/09/20 08:20 Home Med (Med Rec Complete!) ASDIRECTED XX 03/28/20 17:45 03/28/20 17:39 DC Hydroxyzine HCl (Atarax) 50 mg Q4HP PRN PO anxiety 04/12/20 11:45 04/16/20 02:03 Levothyroxine Sodium (Synthroid) 25 mcg DAILY@0600 PO 03/29/20 06:00 04/16/20 06:13 Loratadine (Claritin) 10 mg DAILY PO 03/29/20 09:00 04/16/20 08:22 Magnesium Hydroxide (Milk Of Magnesia) 30 ml DAILYPRN PRN PO CONSTIPATION 03/28/20 20:00 Miscellaneous (Unresolved Clarification Entry) SEE LABEL COMMENTS DAILY XX 04/06/20 09:00 04/06/20 11:43 DC Miscellaneous (Unresolved Clarification Entry) SEE LABEL COMMENTS DAILY XX 04/12/20 09:00 04/12/20 13:49 DC Miscellaneous (Unresolved Patient Own Med Order) SEE LABEL COMMENTS DAILY XX 03/28/20 09:00 03/28/20 22:25 DC Montelukast Sodium (Singulair) 10 mg QHS PO 03/28/20 21:00 04/15/20 21:11 Olanzapine (ZyPREXA ZYDIS) 5 mg Q4HP PRN PO AGITATION/ANXIETY 04/12/20 11:45 04/13/20 09:30 Olanzapine (ZyPREXA ZYDIS) 10 mg Q4HP PRN PO AGITATION/ANXIETY 03/28/20 20:00 04/12/20 11:35 DC 04/11/20 09:19 Patient Own Medication (Patient'S Own Med) Clobazam 10mg TABS: ADMINIS... BID PO 03/28/20 21:00 03/30/20 11:44 DC 03/30/20 09:13 Patient Own Medication (Pt Own Med *Controlled Subst*) 1.5 TABS = (15MG) BID PO 04/13/20 21:00 04/16/20 08:19 Patient Own Medication (Pt Own Med *Controlled Subst*) 1.5 TABS = (15MG) BID PO 03/30/20 21:00 04/13/20 14:06 DC 04/13/20 08:14 Patient Own Medication (Pt Own Med *Controlled Subst*) Clobazam 10mg TABS: ADMINIS... BID PO 03/28/20 21:00 03/28/20 22:49 DC Patient Own Medication (Pt Own Med *Controlled Subst*) Clobazam 10mg TABS: ADMINIS... BID PO 03/30/20 11:44 03/30/20 11:44 DC Propranolol HCl (Inderal) 20 mg TIDP PRN PO eps 04/13/20 10:30 04/16/20 08:40 Trazodone HCl (Desyrel) 50 mg QHSP PRN PO INSOMNIA 03/28/20 20:00 03/28/20 21:25 Zonisamide (Zonegran) 200 mg BID PO 03/28/20 21:00 04/16/20 08:21 Allergies Coded Allergies: Cephalosporins (Verified Allergy, Intermediate, HIVES, 03/28/20) cefaclor (Verified Allergy, Unknown, 07/12/19) lamotrigine (Verified Adverse Reaction, Severe, SJS, 07/12/19) YIMI LAU DO Apr 16, 2020 09:40
[2020-04-16 16:44] VITALS: BP 140/85
[2020-04-16] MEDS: MONTELUKAST 10 MG TAB PO SCH (20:17)
[2020-04-16] MEDS: ACETAMINOPHEN TAB 650MG DOSE (2X325MG) PO PRN (20:57)
[2020-04-17] MEDS: LEVOTHYROXINE 25MCG TABLET (0.025MG) PO SCH (05:56)
[2020-04-17 06:26] VITALS: BP 127/65
[2020-04-17] MEDS: FLUTICASONE PROP 0.05% NASAL SPRAY 16 GM (FLONASE) SCH (09:26)
[2020-04-17] MEDS: BREXPIPRAZOLE 0.5MG TABLET (REXULTI) PO SCH (09:26)
[2020-04-17] MEDS: ZONISAMIDE 100 MG CAP (ZONEGRAN) PO SCH ×2 (09:27→20:49)
[2020-04-17] MEDS: LORATADINE 10 MG TAB PO SCH (09:27)
[2020-04-17] MEDS: ATORVASTATIN 20 MG TAB PO SCH (09:27)
[2020-04-17] MEDS: CLOBAZAM 10 MG PO SCH ×2 (09:30→20:52)
--- NOTE | 2020-04-17 09:51 | MHIPNPDOC ---
[facility] Progress Note Progress Note DATE OF SERVICE: 04/17/20 HISTORY: the patient is met with today, she reports that she is pleased about potentially going to the residential facility, she reports that she feels the m edications helpful, that it's helping her mood and she's less preoccupied with auditory hallucinations. She still reports that she is frightened she might harm her mother and still has thoughts to harm her. But no one else. VITAL SIGNS: See below. NEW TEST RESULTS: none. CURRENT MEDICATIONS: See below. MENTAL STATUS EXAMINATION: General: [Well dressed with good hygiene] Speech: Baseline stutter Thought processes: Linear Thought content: [Future orientated] Abstract reasoning, and computation: Baseline impairment Description of associations: Baseline loosening Description of abnormal or psychotic thoughts: As above, denies any suicidal thoughts reports no significant recurrence of the auditory hallucinations Judgment: Limited at baseline Insight: Limited at baseline Orientation: [Alert and orientated 3] Recent and remote memory: Baseline Attention span and concentration: [Intact] Fund of knowledge: Baseline Mood: "okay" Affect: More reactive and engaged DIAGNOSES: 1. Unspecified psychotic disorder. 2. Intellectual disability moderate. 3. . ASSESSMENT: patient appears to be making some progress, the new antipsychotic se ems to be making her less irritable and less dysphoric. However, she was still do best at a residential facility due to the continual thoughts might harm her mother MANAGEMENT PLAN: continue rexculti 0.5 mg daily TIME SPENT:, 15 minutes. Vital Signs Vital Signs Date Time Temp Pulse Resp B/P (MAP) Pulse Ox O2 Delivery O2 Flow Rate FiO2 04/17/20 06:26 98.4 77 14 127/65 (85) 96 Room Air Current Medications Current Medications Medications (Trade) Dose Ordered Sig/Jonathan Route PRN Reason Start Time Stop Time Status Last Admin Dose Admin Acetaminophen (Tylenol Tab) 650 mg Q6HP PRN PO HEADACHE or DISCOMFORT 03/28/20 20:00 04/16/20 20:57 Al Hydrox/Mg Hydrox/Simethicone (Mylanta) 30 ml Q4HP PRN PO HEARTBURN/INDIGESTION 03/28/20 20:00 04/01/20 20:09 Albuterol Sulfate (Proventil Neb) 2.5 mg QID PRN INH SOB/WHEEZING 03/28/20 20:00 Aripiprazole (AbiLIFY) 2 mg QHS PO 03/29/20 21:00 04/03/20 13:10 DC 04/02/20 21:14 Aripiprazole (AbiLIFY) 5 mg QHS PO 04/03/20 21:00 04/05/20 13:20 DC 04/04/20 20:48 Atorvastatin Calcium (Lipitor) 20 mg DAILY PO 03/29/20 09:00 04/17/20 09:27 Benztropine Mesylate (Cogentin) 1 mg Q6HP PRN IM eps 04/13/20 10:30 Brexpiprazole (Rexulti) 0.5 mg DAILY PO 04/17/20 09:00 04/17/20 09:26 Fluticasone Propionate (Flonase 0.05% Nasal [place]) 2 spray DAILY NA 03/29/20 09:00 04/17/20 09:26 Haloperidol (Haldol) 2.5 mg BID PO 04/09/20 21:00 04/16/20 11:52 DC 04/16/20 08:22 Haloperidol (Haldol) 5 mg BID PO 04/05/20 21:00 04/09/20 12:03 DC 04/09/20 08:20 Home Med (Med Rec Complete!) ASDIRECTED XX 03/28/20 17:45 03/28/20 17:39 DC Hydroxyzine HCl (Atarax) 50 mg Q4HP PRN PO anxiety 04/12/20 11:45 04/16/20 02:03 Levothyroxine Sodium (Synthroid) 25 mcg DAILY@0600 PO 03/29/20 06:00 04/17/20 05:56 Loratadine (Claritin) 10 mg DAILY PO 03/29/20 09:00 04/17/20 09:27 Magnesium Hydroxide (Milk Of Magnesia) 30 ml DAILYPRN PRN PO CONSTIPATION 03/28/20 20:00 Miscellaneous (Unresolved Clarification Entry) SEE LABEL COMMENTS DAILY XX 04/06/20 09:00 04/06/20 11:43 DC Miscellaneous (Unresolved Clarification Entry) SEE LABEL COMMENTS DAILY XX 04/12/20 09:00 04/12/20 13:49 DC Miscellaneous (Unresolved Patient Own Med Order) SEE LABEL COMMENTS DAILY XX 03/28/20 09:00 03/28/20 22:25 DC Montelukast Sodium (Singulair) 10 mg QHS PO 03/28/20 21:00 04/16/20 20:17 Olanzapine (ZyPREXA ZYDIS) 5 mg Q4HP PRN PO AGITATION/ANXIETY 04/12/20 11:45 04/13/20 09:30 Olanzapine (ZyPREXA ZYDIS) 10 mg Q4HP PRN PO AGITATION/ANXIETY 03/28/20 20:00 04/12/20 11:35 DC 04/11/20 09:19 Patient Own Medication (Patient'S Own Med) Clobazam 10mg TABS: ADMINIS... BID PO 03/28/20 21:00 03/30/20 11:44 DC 03/30/20 09:13 Patient Own Medication (Pt Own Med *Controlled Subst*) 1.5 TABS = (15MG) BID PO 04/13/20 21:00 04/17/20 09:30 Patient Own Medication (Pt Own Med *Controlled Subst*) 1.5 TABS = (15MG) BID PO 03/30/20 21:00 04/13/20 14:06 DC 04/13/20 08:14 Patient Own Medication (Pt Own Med *Controlled Subst*) Clobazam 10mg TABS: ADMINIS... BID PO 03/28/20 21:00 03/28/20 22:49 DC Patient Own Medication (Pt Own Med *Controlled Subst*) Clobazam 10mg TABS: ADMINIS... BID PO 03/30/20 11:44 03/30/20 11:44 DC Propranolol HCl (Inderal) 20 mg TIDP PRN PO eps 04/13/20 10:30 04/16/20 08:40 Trazodone HCl (Desyrel) 50 mg QHSP PRN PO INSOMNIA 03/28/20 20:00 03/28/20 21:25 Zonisamide (Zonegran) 200 mg BID PO 03/28/20 21:00 04/17/20 09:27 Allergies Coded Allergies: Cephalosporins (Verified Allergy, Intermediate, HIVES, 03/28/20) cefaclor (Verified Allergy, Unknown, 07/12/19) lamotrigine (Verified Adverse Reaction, Severe, SJS, 07/12/19) YIMI LAU DO Apr 17, 2020 09:51
--- NOTE | 2020-04-17 09:58 | MHIPN ---
DATE: 04/11/2020 The patient today remains the same. She continues to have thoughts that she might hurt her mother. She continues to be vague about whether she is hearing voices or not. She does say that she feels sometimes like shaky. I did not notice any type of tremors. I tried to ascertain if she meant that she is getting anxious at the time, but it was not clear. MENTAL STATUS EXAM: She is alert and oriented to person and place. Eye contact fair. Psychomotor activity is decreased. Mood is not good. Affect is constrictive and appropriate to mood. She is not suicidal, but continues to have homicidal thought towards her mom and again it is not clear that she is having any auditory hallucinations or not. I suspect that this is more her own thoughts than actual hallucinations. Concentration fair. Insight and judgment is poor. DIAGNOSES: 1. Other specified impulse control disorder. 2. Unspecified depressive disorder. 3. Mild intellectual disability. TREATMENT PLAN: We will continue to monitor the patient and to titrate her medications as indicated. AYO
[2020-04-17 16:07] VITALS: BP 122/74
[2020-04-17] MEDS: MONTELUKAST 10 MG TAB PO SCH (20:49)
[2020-04-17] MEDS: traZODone 50 MG TAB PO PRN (23:05)
[2020-04-17] MEDS: ACETAMINOPHEN TAB 650MG DOSE (2X325MG) PO PRN (23:09)
[2020-04-18] MEDS: hydrOXYzine 50 MG TAB PO PRN (03:59)
[2020-04-18] MEDS: LEVOTHYROXINE 25MCG TABLET (0.025MG) PO SCH (05:11)
[2020-04-18] MEDS: ACETAMINOPHEN TAB 650MG DOSE (2X325MG) PO PRN ×2 (05:12→22:01)
[2020-04-18 06:24] VITALS: BP 125/63
[2020-04-18] MEDS: CLOBAZAM 10 MG PO SCH ×2 (09:13→20:51)
[2020-04-18] MEDS: BREXPIPRAZOLE 0.5MG TABLET (REXULTI) PO SCH (09:14)
[2020-04-18] MEDS: FLUTICASONE PROP 0.05% NASAL SPRAY 16 GM (FLONASE) SCH (09:14)
[2020-04-18] MEDS: LORATADINE 10 MG TAB PO SCH (09:14)
[2020-04-18] MEDS: ZONISAMIDE 100 MG CAP (ZONEGRAN) PO SCH ×2 (09:14→20:45)
[2020-04-18] MEDS: ATORVASTATIN 20 MG TAB PO SCH (09:14)
--- NOTE | 2020-04-18 10:44 | MHIPNPDOC ---
[facility] Progress Note Progress Note DATE OF SERVICE: 04/18/20 HISTORY: the patient has been doing generally well today, she reports the medication has been helpful and that she is hopeful about the placement, she still reports that she worries about wanting to kill her mother but denies any suicidal thoughts this time. She reports the auditory hallucinations are starting to ilia becoming better and less prevalent for her. She's been doing well and attending groups. VITAL SIGNS: See below. NEW TEST RESULTS: none. CURRENT MEDICATIONS: See below. MENTAL STATUS EXAMINATION: General: [Well dressed with good hygiene] Speech: Baseline stutter Thought processes: Linear Thought content: [Future orientated] Abstract reasoning, and computation: Baseline impairment Description of associations: Baseline loosening Description of abnormal or psychotic thoughts: As above, denies any suicidal thoughts reports no significant recurrence of the auditory hallucinations Judgment: Limited at baseline Insight: Limited at baseline Orientation: [Alert and orientated 3] Recent and remote memory: Baseline Attention span and concentration: [Intact] Fund of knowledge: Baseline Mood: "okay" Affect: more engaged DIAGNOSES: 1. Schizophrenia 2. Intellectual disability moderate. ASSESSMENT: it appears to be tolerating new medication well, making some slow progress will continue medication at current dose MANAGEMENT PLAN: continue rexculti 0.5 mg daily TIME SPENT:, 15 minutes. Vital Signs Vital Signs Date Time Temp Pulse Resp B/P (MAP) Pulse Ox O2 Delivery O2 Flow Rate FiO2 04/18/20 06:24 98.1 97 16 125/63 (83) 95 Room Air Current Medications Current Medications Medications (Trade) Dose Ordered Sig/Jonathan Route PRN Reason Start Time Stop Time Status Last Admin Dose Admin Acetaminophen (Tylenol Tab) 650 mg Q6HP PRN PO HEADACHE or DISCOMFORT 03/28/20 20:00 04/18/20 05:12 Al Hydrox/Mg Hydrox/Simethicone (Mylanta) 30 ml Q4HP PRN PO HEARTBURN/INDIGESTION 03/28/20 20:00 04/01/20 20:09 Albuterol Sulfate (Proventil Neb) 2.5 mg QID PRN INH SOB/WHEEZING 03/28/20 20:00 Aripiprazole (AbiLIFY) 2 mg QHS PO 03/29/20 21:00 04/03/20 13:10 DC 04/02/20 21:14 Aripiprazole (AbiLIFY) 5 mg QHS PO 04/03/20 21:00 04/05/20 13:20 DC 04/04/20 20:48 Atorvastatin Calcium (Lipitor) 20 mg DAILY PO 03/29/20 09:00 04/18/20 09:14 Benztropine Mesylate (Cogentin) 1 mg Q6HP PRN IM eps 04/13/20 10:30 Brexpiprazole (Rexulti) 0.5 mg DAILY PO 04/17/20 09:00 04/18/20 09:14 Fluticasone Propionate (Flonase 0.05% Nasal [place]) 2 spray DAILY NA 03/29/20 09:00 04/18/20 09:14 Haloperidol (Haldol) 2.5 mg BID PO 04/09/20 21:00 04/16/20 11:52 DC 04/16/20 08:22 Haloperidol (Haldol) 5 mg BID PO 04/05/20 21:00 04/09/20 12:03 DC 04/09/20 08:20 Home Med (Med Rec Complete!) ASDIRECTED XX 03/28/20 17:45 03/28/20 17:39 DC Hydroxyzine HCl (Atarax) 50 mg Q4HP PRN PO anxiety 04/12/20 11:45 04/18/20 03:59 Levothyroxine Sodium (Synthroid) 25 mcg DAILY@0600 PO 03/29/20 06:00 04/18/20 05:11 Loratadine (Claritin) 10 mg DAILY PO 03/29/20 09:00 04/18/20 09:14 Magnesium Hydroxide (Milk Of Magnesia) 30 ml DAILYPRN PRN PO CONSTIPATION 03/28/20 20:00 Miscellaneous (Unresolved Clarification Entry) SEE LABEL COMMENTS DAILY XX 04/06/20 09:00 04/06/20 11:43 DC Miscellaneous (Unresolved Clarification Entry) SEE LABEL COMMENTS DAILY XX 04/12/20 09:00 04/12/20 13:49 DC Miscellaneous (Unresolved Patient Own Med Order) SEE LABEL COMMENTS DAILY XX 03/28/20 09:00 03/28/20 22:25 DC Montelukast Sodium (Singulair) 10 mg QHS PO 03/28/20 21:00 04/17/20 20:49 Olanzapine (ZyPREXA ZYDIS) 5 mg Q4HP PRN PO AGITATION/ANXIETY 04/12/20 11:45 04/13/20 09:30 Olanzapine (ZyPREXA ZYDIS) 10 mg Q4HP PRN PO AGITATION/ANXIETY 03/28/20 20:00 04/12/20 11:35 DC 04/11/20 09:19 Patient Own Medication (Patient'S Own Med) Clobazam 10mg TABS: ADMINIS... BID PO 03/28/20 21:00 03/30/20 11:44 DC 03/30/20 09:13 Patient Own Medication (Pt Own Med *Controlled Subst*) 1.5 TABS = (15MG) BID PO 04/13/20 21:00 04/18/20 09:13 Patient Own Medication (Pt Own Med *Controlled Subst*) 1.5 TABS = (15MG) BID PO 03/30/20 21:00 04/13/20 14:06 DC 04/13/20 08:14 Patient Own Medication (Pt Own Med *Controlled Subst*) Clobazam 10mg TABS: ADMINIS... BID PO 03/28/20 21:00 03/28/20 22:49 DC Patient Own Medication (Pt Own Med *Controlled Subst*) Clobazam 10mg TABS: ADMINIS... BID PO 03/30/20 11:44 03/30/20 11:44 DC Propranolol HCl (Inderal) 20 mg TIDP PRN PO eps 04/13/20 10:30 04/16/20 08:40 Trazodone HCl (Desyrel) 50 mg QHSP PRN PO INSOMNIA 03/28/20 20:00 04/17/20 23:05 Zonisamide (Zonegran) 200 mg BID PO 03/28/20 21:00 04/18/20 09:14 Allergies Coded Allergies: Cephalosporins (Verified Allergy, Intermediate, HIVES, 03/28/20) cefaclor (Verified Allergy, Unknown, 07/12/19) lamotrigine (Verified Adverse Reaction, Severe, SJS, 07/12/19) YIMI LAU DO Apr 18, 2020 10:44
[2020-04-18 16:00] VITALS: BP 124/69
[2020-04-18] MEDS: MONTELUKAST 10 MG TAB PO SCH (20:46)
[2020-04-18] MEDS: OLANZapine ORAL DISINTEGRATING TAB 5MG PO PRN (21:59)
[2020-04-19] MEDS: traZODone 50 MG TAB PO PRN (00:29)
[2020-04-19] MEDS: hydrOXYzine 50 MG TAB PO PRN (00:29)
[2020-04-19] MEDS: LEVOTHYROXINE 25MCG TABLET (0.025MG) PO SCH (06:04)
[2020-04-19 06:22] VITALS: BP 129/76
[2020-04-19] MEDS: LORATADINE 10 MG TAB PO SCH (09:10)
[2020-04-19] MEDS: ZONISAMIDE 100 MG CAP (ZONEGRAN) PO SCH ×2 (09:10→21:04)
[2020-04-19] MEDS: BREXPIPRAZOLE 0.5MG TABLET (REXULTI) PO SCH (09:10)
[2020-04-19] MEDS: ATORVASTATIN 20 MG TAB PO SCH (09:10)
[2020-04-19] MEDS: FLUTICASONE PROP 0.05% NASAL SPRAY 16 GM (FLONASE) SCH (09:11)
[2020-04-19] MEDS: CLOBAZAM 10 MG PO SCH ×2 (09:13→21:38)
[2020-04-19 17:36] VITALS: BP 149/70
[2020-04-19] MEDS: MONTELUKAST 10 MG TAB PO SCH (21:04)
[2020-04-20] MEDS: LEVOTHYROXINE 25MCG TABLET (0.025MG) PO SCH (05:48)
[2020-04-20 06:43] VITALS: BP 142/72
[2020-04-20] MEDS: FLUTICASONE PROP 0.05% NASAL SPRAY 16 GM (FLONASE) SCH (09:09)
[2020-04-20] MEDS: ZONISAMIDE 100 MG CAP (ZONEGRAN) PO SCH ×2 (09:10→20:57)
[2020-04-20] MEDS: LORATADINE 10 MG TAB PO SCH (09:11)
[2020-04-20] MEDS: ATORVASTATIN 20 MG TAB PO SCH (09:11)
[2020-04-20] MEDS: BREXPIPRAZOLE 0.5MG TABLET (REXULTI) PO SCH (09:11)
[2020-04-20] MEDS: CLOBAZAM 10 MG PO SCH ×2 (09:17→20:57)
--- NOTE | 2020-04-20 09:50 | MHIPNPDOC ---
[facility] Progress Note Progress Note DATE OF SERVICE: 04/20/20 HISTORY: The patient is met with today, she reports she is doing much better, reports of voices are less intense, she still has worries that she might harm he r mother and some intermittent thoughts of wanting harm her. She reports that she is feeling much better overall and staff notes that she goes to groups more frequently. VITAL SIGNS: See below. NEW TEST RESULTS: none. CURRENT MEDICATIONS: See below. MENTAL STATUS EXAMINATION: General: [Well dressed with good hygiene] Speech: Baseline stutter Thought processes: Linear Thought content: [Future orientated] Abstract reasoning, and computation: Baseline impairment Description of associations: Baseline loosening Description of abnormal or psychotic thoughts: As above, denies any suicidal thoughts reports no significant recurrence of the auditory hallucinations Judgment: Limited at baseline Insight: Limited at baseline Orientation: [Alert and orientated 3] Recent and remote memory: Baseline Attention span and concentration: [Intact] Fund of knowledge: Baseline Mood: "okay" Affect: More reactive today DIAGNOSES: 1. Schizophrenia 2. Intellectual disability moderate. ASSESSMENT: it appears to be tolerating new medication well, making some slow progress will continue medication at current dose MANAGEMENT PLAN: continue rexculti 0.5 mg daily Continue to pursue placement at [facility] TIME SPENT 15 minutes. Vital Signs Vital Signs Date Time Temp Pulse Resp B/P (MAP) Pulse Ox O2 Delivery O2 Flow Rate FiO2 04/20/20 06:43 97.6 105 18 142/72 (95) 97 Room Air Current Medications Current Medications Medications (Trade) Dose Ordered Sig/Jonathan Route PRN Reason Start Time Stop Time Status Last Admin Dose Admin Acetaminophen (Tylenol Tab) 650 mg Q6HP PRN PO HEADACHE or DISCOMFORT 03/28/20 20:00 04/18/20 22:01 Al Hydrox/Mg Hydrox/Simethicone (Mylanta) 30 ml Q4HP PRN PO HEARTBURN/INDIGESTION 03/28/20 20:00 04/01/20 20:09 Albuterol Sulfate (Proventil Neb) 2.5 mg QID PRN INH SOB/WHEEZING 03/28/20 20:00 Aripiprazole (AbiLIFY) 2 mg QHS PO 03/29/20 21:00 04/03/20 13:10 DC 04/02/20 21:14 Aripiprazole (AbiLIFY) 5 mg QHS PO 04/03/20 21:00 04/05/20 13:20 DC 04/04/20 20:48 Atorvastatin Calcium (Lipitor) 20 mg DAILY PO 03/29/20 09:00 04/20/20 09:11 Benztropine Mesylate (Cogentin) 1 mg Q6HP PRN IM eps 04/13/20 10:30 Brexpiprazole (Rexulti) 0.5 mg DAILY PO 04/17/20 09:00 04/20/20 09:11 Fluticasone Propionate (Flonase 0.05% Nasal [place]) 2 spray DAILY NA 03/29/20 09:00 04/20/20 09:09 Haloperidol (Haldol) 2.5 mg BID PO 04/09/20 21:00 04/16/20 11:52 DC 04/16/20 08:22 Haloperidol (Haldol) 5 mg BID PO 04/05/20 21:00 04/09/20 12:03 DC 04/09/20 08:20 Home Med (Med Rec Complete!) ASDIRECTED XX 03/28/20 17:45 03/28/20 17:39 DC Hydroxyzine HCl (Atarax) 50 mg Q4HP PRN PO anxiety 04/12/20 11:45 04/19/20 00:29 Levothyroxine Sodium (Synthroid) 25 mcg DAILY@0600 PO 03/29/20 06:00 04/20/20 05:48 Loratadine (Claritin) 10 mg DAILY PO 03/29/20 09:00 04/20/20 09:11 Magnesium Hydroxide (Milk Of Magnesia) 30 ml DAILYPRN PRN PO CONSTIPATION 03/28/20 20:00 Miscellaneous (Unresolved Clarification Entry) SEE LABEL COMMENTS DAILY XX 04/06/20 09:00 04/06/20 11:43 DC Miscellaneous (Unresolved Clarification Entry) SEE LABEL COMMENTS DAILY XX 04/12/20 09:00 04/12/20 13:49 DC Miscellaneous (Unresolved Patient Own Med Order) SEE LABEL COMMENTS DAILY XX 03/28/20 09:00 03/28/20 22:25 DC Montelukast Sodium (Singulair) 10 mg QHS PO 03/28/20 21:00 04/19/20 21:04 Olanzapine (ZyPREXA ZYDIS) 5 mg Q4HP PRN PO AGITATION/ANXIETY 04/12/20 11:45 04/18/20 21:59 Olanzapine (ZyPREXA ZYDIS) 10 mg Q4HP PRN PO AGITATION/ANXIETY 03/28/20 20:00 04/12/20 11:35 DC 04/11/20 09:19 Patient Own Medication (Patient'S Own Med) Clobazam 10mg TABS: ADMINIS... BID PO 03/28/20 21:00 03/30/20 11:44 DC 03/30/20 09:13 Patient Own Medication (Pt Own Med *Controlled Subst*) 1.5 TABS = (15MG) BID PO 04/13/20 21:00 04/20/20 09:17 Patient Own Medication (Pt Own Med *Controlled Subst*) 1.5 TABS = (15MG) BID PO 03/30/20 21:00 04/13/20 14:06 DC 04/13/20 08:14 Patient Own Medication (Pt Own Med *Controlled Subst*) Clobazam 10mg TABS: ADMINIS... BID PO 03/28/20 21:00 03/28/20 22:49 DC Patient Own Medication (Pt Own Med *Controlled Subst*) Clobazam 10mg TABS: ADMINIS... BID PO 03/30/20 11:44 03/30/20 11:44 DC Propranolol HCl (Inderal) 20 mg TIDP PRN PO eps 04/13/20 10:30 04/16/20 08:40 Trazodone HCl (Desyrel) 50 mg QHSP PRN PO INSOMNIA 03/28/20 20:00 04/19/20 00:29 Zonisamide (Zonegran) 200 mg BID PO 03/28/20 21:00 04/20/20 09:10 Allergies Coded Allergies: Cephalosporins (Verified Allergy, Intermediate, HIVES, 03/28/20) cefaclor (Verified Allergy, Unknown, 07/12/19) lamotrigine (Verified Adverse Reaction, Severe, SJS, 07/12/19) YIMI LAU DO Apr 20, 2020 09:50
[2020-04-20 17:37] VITALS: BP 148/74
[2020-04-20] MEDS: MONTELUKAST 10 MG TAB PO SCH (20:58)
[2020-04-21] MEDS: LEVOTHYROXINE 25MCG TABLET (0.025MG) PO SCH (05:57)
[2020-04-21 06:38] VITALS: BP 114/58
[2020-04-21] MEDS: BREXPIPRAZOLE 0.5MG TABLET (REXULTI) PO SCH (08:30)
[2020-04-21] MEDS: CLOBAZAM 10 MG PO SCH ×2 (08:30→21:11)
[2020-04-21] MEDS: ATORVASTATIN 20 MG TAB PO SCH (08:30)
[2020-04-21] MEDS: LORATADINE 10 MG TAB PO SCH (08:31)
[2020-04-21] MEDS: FLUTICASONE PROP 0.05% NASAL SPRAY 16 GM (FLONASE) SCH (08:31)
[2020-04-21] MEDS: ZONISAMIDE 100 MG CAP (ZONEGRAN) PO SCH ×2 (08:31→21:12)
[2020-04-21 16:07] VITALS: BP 119/66
[2020-04-21] MEDS: MONTELUKAST 10 MG TAB PO SCH (21:11)
[2020-04-22] MEDS: LEVOTHYROXINE 25MCG TABLET (0.025MG) PO SCH (05:33)
[2020-04-22 06:25] VITALS: BP 108/65
[2020-04-22] MEDS: CLOBAZAM 10 MG PO SCH ×2 (09:06→21:08)
[2020-04-22] MEDS: FLUTICASONE PROP 0.05% NASAL SPRAY 16 GM (FLONASE) SCH (09:08)
[2020-04-22] MEDS: ATORVASTATIN 20 MG TAB PO SCH (09:09)
[2020-04-22] MEDS: BREXPIPRAZOLE 0.5MG TABLET (REXULTI) PO SCH (09:09)
[2020-04-22] MEDS: ZONISAMIDE 100 MG CAP (ZONEGRAN) PO SCH ×2 (09:09→21:09)
[2020-04-22] MEDS: LORATADINE 10 MG TAB PO SCH (09:09)
[2020-04-22 16:02] VITALS: BP 135/59
[2020-04-22 16:03] VITALS: BP 127/63
[2020-04-22] MEDS: MONTELUKAST 10 MG TAB PO SCH (21:09)
[2020-04-23] MEDS: LEVOTHYROXINE 25MCG TABLET (0.025MG) PO SCH (06:02)
[2020-04-23 06:24] VITALS: BP 136/70
[2020-04-23] MEDS: ZONISAMIDE 100 MG CAP (ZONEGRAN) PO SCH ×2 (09:19→21:34)
[2020-04-23] MEDS: LORATADINE 10 MG TAB PO SCH (09:19)
[2020-04-23] MEDS: ATORVASTATIN 20 MG TAB PO SCH (09:19)
[2020-04-23] MEDS: BREXPIPRAZOLE 0.5MG TABLET (REXULTI) PO SCH (09:19)
[2020-04-23] MEDS: FLUTICASONE PROP 0.05% NASAL SPRAY 16 GM (FLONASE) SCH (09:20)
[2020-04-23] MEDS: CLOBAZAM 10 MG PO SCH ×2 (09:45→21:36)
--- NOTE | 2020-04-23 10:30 | MHIPNPDOC ---
[facility] Progress Note Progress Note DATE OF SERVICE: 04/23/20 HISTORY: patient reports that she is doing better and feeling more improved, she does report some thoughts of wanting to harm her mother but that there fleeting and intermittent. She reports primarily that the voices have resolved and that she is feeling much happier on the medication. She otherwise reports that she might want to go home as she reports she is made a lot of progress and doesn't worry so much about wanting to harm her mother. She is been social on the unit, making friends and doing very well. VITAL SIGNS: See below. NEW TEST RESULTS: none. CURRENT MEDICATIONS: See below. MENTAL STATUS EXAMINATION: General: [Well dressed with good hygiene] Speech: Baseline stutter Thought processes: Linear Thought content: [Future orientated] Abstract reasoning, and computation: Baseline impairment Description of associations: Baseline loosening Description of abnormal or psychotic thoughts: As above, denies any suicidal thoughts reports no significant recurrence of the auditory hallucinations Judgment: Limited at baseline Insight: Limited at baseline Orientation: [Alert and orientated 3] Recent and remote memory: Baseline Attention span and concentration: [Intact] Fund of knowledge: Baseline Mood: "okay" Affect: euthymic and smiling DIAGNOSES: 1. Schizophrenia 2. Intellectual disability moderate. ASSESSMENT: it appears to be making quite brisk progress on the medication, will attempt to reach out to mother via discharge planners to ascertain her sense of things, perhaps an alternative plan such as a group house could be created instead of waiting the extended period of time for a residential facility MANAGEMENT PLAN: continue rexculti 0.5 mg daily Discharge plan to contact mother to discuss potential options TIME SPENT 15 minutes. Vital Signs Vital Signs Date Time Temp Pulse Resp B/P (MAP) Pulse Ox O2 Delivery O2 Flow Rate FiO2 04/23/20 06:24 97.8 85 16 136/70 (92) 04/22/20 16:02 97 Room Air Current Medications Current Medications Medications (Trade) Dose Ordered Sig/Jonathan Route PRN Reason Start Time Stop Time Status Last Admin Dose Admin Acetaminophen (Tylenol Tab) 650 mg Q6HP PRN PO HEADACHE or DISCOMFORT 03/28/20 20:00 04/18/20 22:01 Al Hydrox/Mg Hydrox/Simethicone (Mylanta) 30 ml Q4HP PRN PO HEARTBURN/INDIGESTION 03/28/20 20:00 04/01/20 20:09 Albuterol Sulfate (Proventil Neb) 2.5 mg QID PRN INH SOB/WHEEZING 03/28/20 20:00 Aripiprazole (AbiLIFY) 2 mg QHS PO 03/29/20 21:00 04/03/20 13:10 DC 04/02/20 21:14 Aripiprazole (AbiLIFY) 5 mg QHS PO 04/03/20 21:00 04/05/20 13:20 DC 04/04/20 20:48 Atorvastatin Calcium (Lipitor) 20 mg DAILY PO 03/29/20 09:00 04/23/20 09:19 Benztropine Mesylate (Cogentin) 1 mg Q6HP PRN IM eps 04/13/20 10:30 Brexpiprazole (Rexulti) 0.5 mg DAILY PO 04/17/20 09:00 04/23/20 09:19 Fluticasone Propionate (Flonase 0.05% Nasal [place]) 2 spray DAILY NA 03/29/20 09:00 04/23/20 09:20 Haloperidol (Haldol) 2.5 mg BID PO 04/09/20 21:00 04/16/20 11:52 DC 04/16/20 08:22 Haloperidol (Haldol) 5 mg BID PO 04/05/20 21:00 04/09/20 12:03 DC 04/09/20 08:20 Home Med (Med Rec Complete!) ASDIRECTED XX 03/28/20 17:45 03/28/20 17:39 DC Hydroxyzine HCl (Atarax) 50 mg Q4HP PRN PO anxiety 04/12/20 11:45 04/19/20 00:29 Levothyroxine Sodium (Synthroid) 25 mcg DAILY@0600 PO 03/29/20 06:00 04/23/20 06:02 Loratadine (Claritin) 10 mg DAILY PO 03/29/20 09:00 04/23/20 09:19 Magnesium Hydroxide (Milk Of Magnesia) 30 ml DAILYPRN PRN PO CONSTIPATION 03/28/20 20:00 Miscellaneous (Unresolved Clarification Entry) SEE LABEL COMMENTS DAILY XX 04/06/20 09:00 04/06/20 11:43 DC Miscellaneous (Unresolved Clarification Entry) SEE LABEL COMMENTS DAILY XX 04/12/20 09:00 04/12/20 13:49 DC Miscellaneous (Unresolved Patient Own Med Order) SEE LABEL COMMENTS DAILY XX 03/28/20 09:00 03/28/20 22:25 DC Montelukast Sodium (Singulair) 10 mg QHS PO 03/28/20 21:00 04/22/20 21:09 Olanzapine (ZyPREXA ZYDIS) 5 mg Q4HP PRN PO AGITATION/ANXIETY 04/12/20 11:45 04/18/20 21:59 Olanzapine (ZyPREXA ZYDIS) 10 mg Q4HP PRN PO AGITATION/ANXIETY 03/28/20 20:00 04/12/20 11:35 DC 04/11/20 09:19 Patient Own Medication (Patient'S Own Med) Clobazam 10mg TABS: ADMINIS... BID PO 03/28/20 21:00 03/30/20 11:44 DC 03/30/20 09:13 Patient Own Medication (Pt Own Med *Controlled Subst*) 1.5 TABS = (15MG) BID PO 04/13/20 21:00 04/23/20 09:45 Patient Own Medication (Pt Own Med *Controlled Subst*) 1.5 TABS = (15MG) BID PO 03/30/20 21:00 04/13/20 14:06 DC 04/13/20 08:14 Patient Own Medication (Pt Own Med *Controlled Subst*) Clobazam 10mg TABS: ADMINIS... BID PO 03/28/20 21:00 03/28/20 22:49 DC Patient Own Medication (Pt Own Med *Controlled Subst*) Clobazam 10mg TABS: ADMINIS... BID PO 03/30/20 11:44 03/30/20 11:44 DC Propranolol HCl (Inderal) 20 mg TIDP PRN PO eps 04/13/20 10:30 04/16/20 08:40 Trazodone HCl (Desyrel) 50 mg QHSP PRN PO INSOMNIA 03/28/20 20:00 04/19/20 00:29 Zonisamide (Zonegran) 200 mg BID PO 03/28/20 21:00 04/23/20 09:19 Allergies Coded Allergies: Cephalosporins (Verified Allergy, Intermediate, HIVES, 11/4/20) cefaclor (Verified Allergy, Unknown, 07/12/19) lamotrigine (Verified Adverse Reaction, Severe, SJS, 07/12/19) YIMI LAU DO Apr 23, 2020 10:30
[2020-04-23 18:00] VITALS: BP 140/91
[2020-04-23] MEDS: MONTELUKAST 10 MG TAB PO SCH (21:33)
[2020-04-24] MEDS: LEVOTHYROXINE 25MCG TABLET (0.025MG) PO SCH (05:39)
[2020-04-24 06:23] VITALS: BP 128/60
[2020-04-24] MEDS: ZONISAMIDE 100 MG CAP (ZONEGRAN) PO SCH ×2 (09:11→21:24)
[2020-04-24] MEDS: FLUTICASONE PROP 0.05% NASAL SPRAY 16 GM (FLONASE) SCH (09:11)
[2020-04-24] MEDS: LORATADINE 10 MG TAB PO SCH (09:12)
[2020-04-24] MEDS: BREXPIPRAZOLE 0.5MG TABLET (REXULTI) PO SCH (09:12)
[2020-04-24] MEDS: ATORVASTATIN 20 MG TAB PO SCH (09:13)
[2020-04-24] MEDS: CLOBAZAM 10 MG PO SCH ×2 (09:16→21:24)
--- NOTE | 2020-04-24 10:38 | MHIPNPDOC ---
[facility] Progress Note Progress Note DATE OF SERVICE: 04/24/20 HISTORY: Patient met with, reports that she is doing well with out any major problems with the medications, has been social and generally engaged on the unit with out any issues. The mother is in contact with but reports that she still worried about being attacked, the patient reports that she doesn't have HI towards her that she is worried that she might slap her out of frustration, as she currently handles her medications/. VITAL SIGNS: See below. NEW TEST RESULTS: none. CURRENT MEDICATIONS: See below. MENTAL STATUS EXAMINATION: General: [Well dressed with good hygiene] Speech: Baseline stutter Thought processes: Linear Thought content: [Future orientated] Abstract reasoning, and computation: Baseline impairment Description of associations: Baseline loosening Description of abnormal or psychotic thoughts: As above, denies any suicidal thoughts reports no significant recurrence of the auditory hallucinations Judgment: Limited at baseline Insight: Limited at baseline Orientation: [Alert and orientated 3] Recent and remote memory: Baseline Attention span and concentration: [Intact] Fund of knowledge: Baseline Mood: "okay" Affect: euthymic and smiling DIAGNOSES: 1. Schizophrenia 2. Intellectual disability moderate. ASSESSMENT: Doing well on medications at this time, however, will need to see about having replacement do her home meds as her agitation and aggression is specific to mother. Possible discharge late this week or early next week MANAGEMENT PLAN: continue rexculti 0.5 mg daily TIME SPENT 15 minutes. Vital Signs Vital Signs Date Time Temp Pulse Resp B/P (MAP) Pulse Ox O2 Delivery O2 Flow Rate FiO2 04/24/20 06:23 98.2 94 18 128/60 (82) 04/22/20 16:02 97 Room Air Current Medications Current Medications Medications (Trade) Dose Ordered Sig/Jonathan Route PRN Reason Start Time Stop Time Status Last Admin Dose Admin Acetaminophen (Tylenol Tab) 650 mg Q6HP PRN PO HEADACHE or DISCOMFORT 03/28/20 20:00 04/18/20 22:01 Al Hydrox/Mg Hydrox/Simethicone (Mylanta) 30 ml Q4HP PRN PO HEARTBURN/INDIGESTION 03/28/20 20:00 04/01/20 20:09 Albuterol Sulfate (Proventil Neb) 2.5 mg QID PRN INH SOB/WHEEZING 03/28/20 20:00 Aripiprazole (AbiLIFY) 2 mg QHS PO 03/29/20 21:00 04/03/20 13:10 DC 04/02/20 21:14 Aripiprazole (AbiLIFY) 5 mg QHS PO 04/03/20 21:00 04/05/20 13:20 DC 04/04/20 20:48 Atorvastatin Calcium (Lipitor) 20 mg DAILY PO 03/29/20 09:00 04/24/20 09:13 Benztropine Mesylate (Cogentin) 1 mg Q6HP PRN IM eps 04/13/20 10:30 Brexpiprazole (Rexulti) 0.5 mg DAILY PO 04/17/20 09:00 04/24/20 09:12 Fluticasone Propionate (Flonase 0.05% Nasal [place]) 2 spray DAILY NA 03/29/20 09:00 04/24/20 09:11 Haloperidol (Haldol) 2.5 mg BID PO 04/09/20 21:00 04/16/20 11:52 DC 04/16/20 08:22 Haloperidol (Haldol) 5 mg BID PO 04/05/20 21:00 04/09/20 12:03 DC 04/09/20 08:20 Home Med (Med Rec Complete!) ASDIRECTED XX 03/28/20 17:45 03/28/20 17:39 DC Hydroxyzine HCl (Atarax) 50 mg Q4HP PRN PO anxiety 04/12/20 11:45 04/19/20 00:29 Levothyroxine Sodium (Synthroid) 25 mcg DAILY@0600 PO 03/29/20 06:00 04/24/20 05:39 Loratadine (Claritin) 10 mg DAILY PO 03/29/20 09:00 04/24/20 09:12 Magnesium Hydroxide (Milk Of Magnesia) 30 ml DAILYPRN PRN PO CONSTIPATION 03/28/20 20:00 Miscellaneous (Unresolved Clarification Entry) SEE LABEL COMMENTS DAILY XX 04/06/20 09:00 04/06/20 11:43 DC Miscellaneous (Unresolved Clarification Entry) SEE LABEL COMMENTS DAILY XX 04/12/20 09:00 04/12/20 13:49 DC Miscellaneous (Unresolved Patient Own Med Order) SEE LABEL COMMENTS DAILY XX 03/28/20 09:00 03/28/20 22:25 DC Montelukast Sodium (Singulair) 10 mg QHS PO 03/28/20 21:00 04/23/20 21:33 Olanzapine (ZyPREXA ZYDIS) 5 mg Q4HP PRN PO AGITATION/ANXIETY 04/12/20 11:45 04/18/20 21:59 Olanzapine (ZyPREXA ZYDIS) 10 mg Q4HP PRN PO AGITATION/ANXIETY 03/28/20 20:00 04/12/20 11:35 DC 04/11/20 09:19 Patient Own Medication (Patient'S Own Med) Clobazam 10mg TABS: ADMINIS... BID PO 03/28/20 21:00 03/30/20 11:44 DC 03/30/20 09:13 Patient Own Medication (Pt Own Med *Controlled Subst*) 1.5 TABS = (15MG) BID PO 04/13/20 21:00 04/24/20 09:16 Patient Own Medication (Pt Own Med *Controlled Subst*) 1.5 TABS = (15MG) BID PO 03/30/20 21:00 04/13/20 14:06 DC 04/13/20 08:14 Patient Own Medication (Pt Own Med *Controlled Subst*) Clobazam 10mg TABS: ADMINIS... BID PO 03/28/20 21:00 03/28/20 22:49 DC Patient Own Medication (Pt Own Med *Controlled Subst*) Clobazam 10mg TABS: ADMINIS... BID PO 03/30/20 11:44 03/30/20 11:44 DC Propranolol HCl (Inderal) 20 mg TIDP PRN PO eps 04/13/20 10:30 04/16/20 08:40 Trazodone HCl (Desyrel) 50 mg QHSP PRN PO INSOMNIA 03/28/20 20:00 04/19/20 00:29 Zonisamide (Zonegran) 200 mg BID PO 03/28/20 21:00 04/24/20 09:11 Allergies Coded Allergies: Cephalosporins (Verified Allergy, Intermediate, HIVES, 03/28/20) cefaclor (Verified Allergy, Unknown, 07/12/19) lamotrigine (Verified Adverse Reaction, Severe, SJS, 07/12/19) YIMI LAU DO Apr 24, 2020 10:38
[2020-04-24 18:00] VITALS: BP 130/90
[2020-04-24] MEDS: MONTELUKAST 10 MG TAB PO SCH (21:24)
[2020-04-25 06:29] VITALS: BP 113/70
[2020-04-25] MEDS: LEVOTHYROXINE 25MCG TABLET (0.025MG) PO SCH (06:39)
[2020-04-25] MEDS: ZONISAMIDE 100 MG CAP (ZONEGRAN) PO SCH ×2 (09:04→20:44)
[2020-04-25] MEDS: FLUTICASONE PROP 0.05% NASAL SPRAY 16 GM (FLONASE) SCH (09:04)
[2020-04-25] MEDS: BREXPIPRAZOLE 0.5MG TABLET (REXULTI) PO SCH (09:05)
[2020-04-25] MEDS: ATORVASTATIN 20 MG TAB PO SCH (09:05)
[2020-04-25] MEDS: LORATADINE 10 MG TAB PO SCH (09:05)
[2020-04-25] MEDS: CLOBAZAM 10 MG PO SCH ×2 (09:09→20:43)
--- NOTE | 2020-04-25 09:58 | MHIPNPDOC ---
[facility] Progress Note Progress Note DATE OF SERVICE: 04/25/20 HISTORY: the patient is met with, she is doing generally well, she reports medicines, making her feel much improved and that she's made great progress. She reports that she so frightened about having aggression with her mother, although having no thoughts of harming her this time, mom reports difficulties working with her as well and fears that she could harm her out of frustration. The patient is open after some discussion to a case management nurse doing her medications as to extricate her from the situation, as a condition of discharge. VITAL SIGNS: See below. NEW TEST RESULTS: none. CURRENT MEDICATIONS: See below. MENTAL STATUS EXAMINATION: General: [Well dressed with good hygiene] Speech: Baseline stutter Thought processes: Linear Thought content: [Future orientated] Abstract reasoning, and computation: Baseline impairment Description of associations: Baseline loosening Description of abnormal or psychotic thoughts: As above, denies any suicidal thoughts reports no significant recurrence of the auditory hallucinations Judgment: Limited at baseline Insight: Limited at baseline Orientation: [Alert and orientated 3] Recent and remote memory: Baseline Attention span and concentration: [Intact] Fund of knowledge: Baseline Mood: "okay" Affect: euthymic and smiling DIAGNOSES: 1. Schizophrenia 2. Intellectual disability moderate. ASSESSMENT: will attempt to extricate her from having to deal with mother, as it appears the relational part forms a neatest of difficulty and violence them would be the safest discharge plan next to a residential program MANAGEMENT PLAN: continue rexculti 0.5 mg daily, will need to do prior authorization soon Order for public health nursing to be placed TIME SPENT 15 minutes. Vital Signs Vital Signs Date Time Temp Pulse Resp B/P (MAP) Pulse Ox O2 Delivery O2 Flow Rate FiO2 04/25/20 06:29 97.0 79 16 113/70 (84) 04/22/20 16:02 97 Room Air Current Medications Current Medications Medications (Trade) Dose Ordered Sig/Jonathan Route PRN Reason Start Time Stop Time Status Last Admin Dose Admin Acetaminophen (Tylenol Tab) 650 mg Q6HP PRN PO HEADACHE or DISCOMFORT 03/28/20 20:00 04/18/20 22:01 Al Hydrox/Mg Hydrox/Simethicone (Mylanta) 30 ml Q4HP PRN PO HEARTBURN/INDIGESTION 03/28/20 20:00 04/01/20 20:09 Albuterol Sulfate (Proventil Neb) 2.5 mg QID PRN INH SOB/WHEEZING 03/28/20 20:00 Aripiprazole (AbiLIFY) 2 mg QHS PO 03/29/20 21:00 04/03/20 13:10 DC 04/02/20 21:14 Aripiprazole (AbiLIFY) 5 mg QHS PO 04/03/20 21:00 04/05/20 13:20 DC 04/04/20 20:48 Atorvastatin Calcium (Lipitor) 20 mg DAILY PO 03/29/20 09:00 04/25/20 09:05 Benztropine Mesylate (Cogentin) 1 mg Q6HP PRN IM eps 04/13/20 10:30 Brexpiprazole (Rexulti) 0.5 mg DAILY PO 04/17/20 09:00 04/25/20 09:05 Fluticasone Propionate (Flonase 0.05% Nasal [place]) 2 spray DAILY NA 03/29/20 09:00 04/25/20 09:04 Haloperidol (Haldol) 2.5 mg BID PO 04/09/20 21:00 04/16/20 11:52 DC 04/16/20 08:22 Haloperidol (Haldol) 5 mg BID PO 04/05/20 21:00 04/09/20 12:03 DC 04/09/20 08:20 Home Med (Med Rec Complete!) ASDIRECTED XX 03/28/20 17:45 03/28/20 17:39 DC Hydroxyzine HCl (Atarax) 50 mg Q4HP PRN PO anxiety 04/12/20 11:45 04/19/20 00:29 Levothyroxine Sodium (Synthroid) 25 mcg DAILY@0600 PO 03/29/20 06:00 04/25/20 06:39 Loratadine (Claritin) 10 mg DAILY PO 03/29/20 09:00 04/25/20 09:05 Magnesium Hydroxide (Milk Of Magnesia) 30 ml DAILYPRN PRN PO CONSTIPATION 03/28/20 20:00 Miscellaneous (Unresolved Clarification Entry) SEE LABEL COMMENTS DAILY XX 04/06/20 09:00 04/06/20 11:43 DC Miscellaneous (Unresolved Clarification Entry) SEE LABEL COMMENTS DAILY XX 04/12/20 09:00 04/12/20 13:49 DC Miscellaneous (Unresolved Patient Own Med Order) SEE LABEL COMMENTS DAILY XX 03/28/20 09:00 03/28/20 22:25 DC Montelukast Sodium (Singulair) 10 mg QHS PO 03/28/20 21:00 04/24/20 21:24 Olanzapine (ZyPREXA ZYDIS) 5 mg Q4HP PRN PO AGITATION/ANXIETY 04/12/20 11:45 04/18/20 21:59 Olanzapine (ZyPREXA ZYDIS) 10 mg Q4HP PRN PO AGITATION/ANXIETY 03/28/20 20:00 04/12/20 11:35 DC 04/11/20 09:19 Patient Own Medication (Patient'S Own Med) Clobazam 10mg TABS: ADMINIS... BID PO 03/28/20 21:00 03/30/20 11:44 DC 03/30/20 09:13 Patient Own Medication (Pt Own Med *Controlled Subst*) 1.5 TABS = (15MG) BID PO 04/13/20 21:00 04/25/20 09:09 Patient Own Medication (Pt Own Med *Controlled Subst*) 1.5 TABS = (15MG) BID PO 03/30/20 21:00 04/13/20 14:06 DC 04/13/20 08:14 Patient Own Medication (Pt Own Med *Controlled Subst*) Clobazam 10mg TABS: ADMINIS... BID PO 03/28/20 21:00 03/28/20 22:49 DC Patient Own Medication (Pt Own Med *Controlled Subst*) Clobazam 10mg TABS: ADMINIS... BID PO 03/30/20 11:44 03/30/20 11:44 DC Propranolol HCl (Inderal) 20 mg TIDP PRN PO eps 04/13/20 10:30 04/16/20 08:40 Trazodone HCl (Desyrel) 50 mg QHSP PRN PO INSOMNIA 03/28/20 20:00 04/19/20 00:29 Zonisamide (Zonegran) 200 mg BID PO 03/28/20 21:00 04/25/20 09:04 Allergies Coded Allergies: Cephalosporins (Verified Allergy, Intermediate, HIVES, 03/28/20) cefaclor (Verified Allergy, Unknown, 07/12/19) lamotrigine (Verified Adverse Reaction, Severe, SJS, 07/12/19) YIMI LAU DO Apr 25, 2020 09:58
[2020-04-25 19:49] VITALS: BP 121/81
[2020-04-25] MEDS: MONTELUKAST 10 MG TAB PO SCH (20:43)
[2020-04-26] MEDS: LEVOTHYROXINE 25MCG TABLET (0.025MG) PO SCH (05:30)
[2020-04-26 06:50] VITALS: BP 132/78
[2020-04-26] MEDS: FLUTICASONE PROP 0.05% NASAL SPRAY 16 GM (FLONASE) SCH (09:27)
[2020-04-26] MEDS: ATORVASTATIN 20 MG TAB PO SCH (09:28)
[2020-04-26] MEDS: LORATADINE 10 MG TAB PO SCH (09:28)
[2020-04-26] MEDS: ZONISAMIDE 100 MG CAP (ZONEGRAN) PO SCH ×2 (09:28→20:26)
[2020-04-26] MEDS: BREXPIPRAZOLE 0.5MG TABLET (REXULTI) PO SCH (09:28)
[2020-04-26] MEDS: CLOBAZAM 10 MG PO SCH ×2 (09:43→20:29)
--- NOTE | 2020-04-26 10:39 | MHIPNPDOC ---
[facility] Progress Note Progress Note DATE OF SERVICE: 04/26/20 HISTORY: the patient seen in follow-up, she reports she is doing well and states the medication still helpful, she has little to complain about and is open to returning home, still waiting on public health nursing to help with medication management, as she still worries that she could attack her mother if she comes frustrated, but denies any HI VITAL SIGNS: See below. NEW TEST RESULTS: none. CURRENT MEDICATIONS: See below. MENTAL STATUS EXAMINATION: General: [Well dressed with good hygiene] Speech: Baseline stutter Thought processes: Linear Thought content: [Future orientated] Abstract reasoning, and computation: Baseline impairment Description of associations: Baseline loosening Description of abnormal or psychotic thoughts: denies SI/HI, AVH Judgment: Limited at baseline Insight: Limited at baseline Orientation: [Alert and orientated 3] Recent and remote memory: Baseline Attention span and concentration: [Intact] Fund of knowledge: Baseline Mood: "okay" Affect: euthymic and smiling DIAGNOSES: 1. Schizophrenia 2. Intellectual disability moderate. ASSESSMENT: will attempt to create safe discharge plan, with potential discharge week MANAGEMENT PLAN: continue rexculti 0.5 mg daily, will need to do prior authorization soon Order for public health nursing to be placed TIME SPENT 15 minutes. Vital Signs Vital Signs Date Time Temp Pulse Resp B/P (MAP) Pulse Ox O2 Delivery O2 Flow Rate FiO2 04/26/20 06:50 98.1 92 16 132/78 (96) 04/22/20 16:02 97 Room Air Current Medications Current Medications Medications (Trade) Dose Ordered Sig/Jonathan Route PRN Reason Start Time Stop Time Status Last Admin Dose Admin Acetaminophen (Tylenol Tab) 650 mg Q6HP PRN PO HEADACHE or DISCOMFORT 03/28/20 20:00 04/18/20 22:01 Al Hydrox/Mg Hydrox/Simethicone (Mylanta) 30 ml Q4HP PRN PO HEARTBURN/INDIGESTION 03/28/20 20:00 04/01/20 20:09 Albuterol Sulfate (Proventil Neb) 2.5 mg QID PRN INH SOB/WHEEZING 03/28/20 20:00 Aripiprazole (AbiLIFY) 2 mg QHS PO 03/29/20 21:00 04/03/20 13:10 DC 04/02/20 21:14 Aripiprazole (AbiLIFY) 5 mg QHS PO 04/03/20 21:00 04/05/20 13:20 DC 04/04/20 20:48 Atorvastatin Calcium (Lipitor) 20 mg DAILY PO 03/29/20 09:00 04/26/20 09:28 Benztropine Mesylate (Cogentin) 1 mg Q6HP PRN IM eps 04/13/20 10:30 Brexpiprazole (Rexulti) 0.5 mg DAILY PO 04/17/20 09:00 04/26/20 09:28 Fluticasone Propionate (Flonase 0.05% Nasal [place]) 2 spray DAILY NA 03/29/20 09:00 04/26/20 09:27 Haloperidol (Haldol) 2.5 mg BID PO 04/09/20 21:00 04/16/20 11:52 DC 04/16/20 08:22 Haloperidol (Haldol) 5 mg BID PO 04/05/20 21:00 04/09/20 12:03 DC 04/09/20 08:20 Home Med (Med Rec Complete!) ASDIRECTED XX 03/28/20 17:45 03/28/20 17:39 DC Hydroxyzine HCl (Atarax) 50 mg Q4HP PRN PO anxiety 04/12/20 11:45 04/19/20 00:29 Levothyroxine Sodium (Synthroid) 25 mcg DAILY@0600 PO 03/29/20 06:00 04/26/20 05:30 Loratadine (Claritin) 10 mg DAILY PO 03/29/20 09:00 04/26/20 09:28 Magnesium Hydroxide (Milk Of Magnesia) 30 ml DAILYPRN PRN PO CONSTIPATION 03/28/20 20:00 Miscellaneous (Unresolved Clarification Entry) SEE LABEL COMMENTS DAILY XX 04/06/20 09:00 04/06/20 11:43 DC Miscellaneous (Unresolved Clarification Entry) SEE LABEL COMMENTS DAILY XX 04/12/20 09:00 04/12/20 13:49 DC Miscellaneous (Unresolved Patient Own Med Order) SEE LABEL COMMENTS DAILY XX 03/28/20 09:00 03/28/20 22:25 DC Montelukast Sodium (Singulair) 10 mg QHS PO 03/28/20 21:00 04/25/20 20:43 Olanzapine (ZyPREXA ZYDIS) 5 mg Q4HP PRN PO AGITATION/ANXIETY 04/12/20 11:45 04/18/20 21:59 Olanzapine (ZyPREXA ZYDIS) 10 mg Q4HP PRN PO AGITATION/ANXIETY 03/28/20 20:00 04/12/20 11:35 DC 04/11/20 09:19 Patient Own Medication (Patient'S Own Med) Clobazam 10mg TABS: ADMINIS... BID PO 03/28/20 21:00 03/30/20 11:44 DC 03/30/20 09:13 Patient Own Medication (Pt Own Med *Controlled Subst*) 1.5 TABS = (15MG) BID PO 04/13/20 21:00 04/26/20 09:43 Patient Own Medication (Pt Own Med *Controlled Subst*) 1.5 TABS = (15MG) BID PO 03/30/20 21:00 04/13/20 14:06 DC 04/13/20 08:14 Patient Own Medication (Pt Own Med *Controlled Subst*) Clobazam 10mg TABS: ADMINIS... BID PO 03/28/20 21:00 03/28/20 22:49 DC Patient Own Medication (Pt Own Med *Controlled Subst*) Clobazam 10mg TABS: ADMINIS... BID PO 03/30/20 11:44 03/30/20 11:44 DC Propranolol HCl (Inderal) 20 mg TIDP PRN PO eps 04/13/20 10:30 04/16/20 08:40 Trazodone HCl (Desyrel) 50 mg QHSP PRN PO INSOMNIA 03/28/20 20:00 04/19/20 00:29 Zonisamide (Zonegran) 200 mg BID PO 03/28/20 21:00 04/26/20 09:28 Allergies Coded Allergies: Cephalosporins (Verified Allergy, Intermediate, HIVES, 03/28/20) cefaclor (Verified Allergy, Unknown, 07/12/19) lamotrigine (Verified Adverse Reaction, Severe, SJS, 07/12/19) YIMI LAU DO Apr 26, 2020 10:39
[2020-04-26 16:44] VITALS: BP 119/59
[2020-04-26] MEDS: ACETAMINOPHEN TAB 650MG DOSE (2X325MG) PO PRN (20:26)
[2020-04-26] MEDS: MONTELUKAST 10 MG TAB PO SCH (20:26)
[2020-04-27] MEDS: LEVOTHYROXINE 25MCG TABLET (0.025MG) PO SCH (05:52)
[2020-04-27 06:28] VITALS: BP 119/83
[2020-04-27] MEDS: BREXPIPRAZOLE 0.5MG TABLET (REXULTI) PO SCH (09:22)
[2020-04-27] MEDS: ZONISAMIDE 100 MG CAP (ZONEGRAN) PO SCH ×2 (09:22→20:51)
[2020-04-27] MEDS: ATORVASTATIN 20 MG TAB PO SCH (09:22)
[2020-04-27] MEDS: LORATADINE 10 MG TAB PO SCH (09:22)
[2020-04-27] MEDS: FLUTICASONE PROP 0.05% NASAL SPRAY 16 GM (FLONASE) SCH (09:23)
[2020-04-27] MEDS: CLOBAZAM 10 MG PO SCH ×2 (09:29→20:59)
--- NOTE | 2020-04-27 09:43 | MHIPNPDOC ---
[facility] Progress Note Progress Note DATE OF SERVICE: 04/27/20 HISTORY: The patient has met with today she reports she is doing well, she is excited about going home Thursday, reporting that she feels she will do better there. She reports her Rexulti is doing quite well for her irritability and difficulties coping. She describes that she is feeling good staff reports she is doing well on the unit without any major problems and that she has made great progress. She still worries about interacting with her mother, as she reports that she comes frustrated and sometimes will slap her. However she denies any homicidal thoughts towards her. VITAL SIGNS: See below. NEW TEST RESULTS: none. CURRENT MEDICATIONS: See below. MENTAL STATUS EXAMINATION: General: [Well dressed with good hygiene] Speech: Baseline stutter Thought processes: Linear Thought content: [Future orientated] Abstract reasoning, and computation: Baseline impairment Description of associations: Baseline loosening Description of abnormal or psychotic thoughts: denies SI/HI, AVH Judgment: Limited at baseline Insight: Limited at baseline Orientation: [Alert and orientated 3] Recent and remote memory: Baseline Attention span and concentration: [Intact] Fund of knowledge: Baseline Mood: "okay" Affect: euthymic and smiling DIAGNOSES: 1. Schizophrenia 2. Intellectual disability moderate. ASSESSMENT: We will discharge on Thursday, public health nurse to come on Thursday to help arrange medications MANAGEMENT PLAN: Continue Rexulti 0.5 mg daily, will send prescription now to begin authorization process TIME SPENT 15 minutes. Vital Signs Vital Signs Date Time Temp Pulse Resp B/P (MAP) Pulse Ox O2 Delivery O2 Flow Rate FiO2 04/27/20 06:28 97.9 75 16 119/83 (95) 04/22/20 16:02 97 Room Air Current Medications Current Medications Medications (Trade) Dose Ordered Sig/Jonathan Route PRN Reason Start Time Stop Time Status Last Admin Dose Admin Acetaminophen (Tylenol Tab) 650 mg Q6HP PRN PO HEADACHE or DISCOMFORT 03/28/20 20:00 04/26/20 20:26 Al Hydrox/Mg Hydrox/Simethicone (Mylanta) 30 ml Q4HP PRN PO HEARTBURN/INDIGESTION 03/28/20 20:00 04/01/20 20:09 Albuterol Sulfate (Proventil Neb) 2.5 mg QID PRN INH SOB/WHEEZING 03/28/20 20:00 Aripiprazole (AbiLIFY) 2 mg QHS PO 03/29/20 21:00 04/03/20 13:10 DC 04/02/20 21:14 Aripiprazole (AbiLIFY) 5 mg QHS PO 04/03/20 21:00 04/05/20 13:20 DC 04/04/20 20:48 Atorvastatin Calcium (Lipitor) 20 mg DAILY PO 03/29/20 09:00 04/27/20 09:22 Benztropine Mesylate (Cogentin) 1 mg Q6HP PRN IM eps 04/13/20 10:30 Brexpiprazole (Rexulti) 0.5 mg DAILY PO 04/17/20 09:00 04/27/20 09:22 Fluticasone Propionate (Flonase 0.05% Nasal [place]) 2 spray DAILY NA 03/29/20 09:00 04/27/20 09:23 Haloperidol (Haldol) 2.5 mg BID PO 04/09/20 21:00 04/16/20 11:52 DC 04/16/20 08:22 Haloperidol (Haldol) 5 mg BID PO 04/05/20 21:00 04/09/20 12:03 DC 04/09/20 08:20 Home Med (Med Rec Complete!) ASDIRECTED XX 03/28/20 17:45 03/28/20 17:39 DC Hydroxyzine HCl (Atarax) 50 mg Q4HP PRN PO anxiety 04/12/20 11:45 04/19/20 00:29 Levothyroxine Sodium (Synthroid) 25 mcg DAILY@0600 PO 03/29/20 06:00 04/27/20 05:52 Loratadine (Claritin) 10 mg DAILY PO 03/29/20 09:00 04/27/20 09:22 Magnesium Hydroxide (Milk Of Magnesia) 30 ml DAILYPRN PRN PO CONSTIPATION 03/28/20 20:00 Miscellaneous (Unresolved Clarification Entry) SEE LABEL COMMENTS DAILY XX 04/06/20 09:00 04/06/20 11:43 DC Miscellaneous (Unresolved Clarification Entry) SEE LABEL COMMENTS DAILY XX 04/12/20 09:00 04/12/20 13:49 DC Miscellaneous (Unresolved Patient Own Med Order) SEE LABEL COMMENTS DAILY XX 03/28/20 09:00 11/4/20 22:25 DC Montelukast Sodium (Singulair) 10 mg QHS PO 03/28/20 21:00 04/26/20 20:26 Olanzapine (ZyPREXA ZYDIS) 5 mg Q4HP PRN PO AGITATION/ANXIETY 04/12/20 11:45 04/18/20 21:59 Olanzapine (ZyPREXA ZYDIS) 10 mg Q4HP PRN PO AGITATION/ANXIETY 03/28/20 20:00 04/12/20 11:35 DC 04/11/20 09:19 Patient Own Medication (Patient'S Own Med) Clobazam 10mg TABS: ADMINIS... BID PO 03/28/20 21:00 03/30/20 11:44 DC 03/30/20 09:13 Patient Own Medication (Pt Own Med *Controlled Subst*) 1.5 TABS = (15MG) BID PO 04/13/20 21:00 04/27/20 09:29 Patient Own Medication (Pt Own Med *Controlled Subst*) 1.5 TABS = (15MG) BID PO 03/30/20 21:00 04/13/20 14:06 DC 04/13/20 08:14 Patient Own Medication (Pt Own Med *Controlled Subst*) Clobazam 10mg TABS: ADMINIS... BID PO 03/28/20 21:00 03/28/20 22:49 DC Patient Own Medication (Pt Own Med *Controlled Subst*) Clobazam 10mg TABS: ADMINIS... BID PO 03/30/20 11:44 03/30/20 11:44 DC Propranolol HCl (Inderal) 20 mg TIDP PRN PO eps 04/13/20 10:30 04/16/20 08:40 Trazodone HCl (Desyrel) 50 mg QHSP PRN PO INSOMNIA 03/28/20 20:00 04/19/20 00:29 Zonisamide (Zonegran) 200 mg BID PO 03/28/20 21:00 04/27/20 09:22 Allergies Coded Allergies: Cephalosporins (Verified Allergy, Intermediate, HIVES, 03/28/20) cefaclor (Verified Allergy, Unknown, 07/12/19) lamotrigine (Verified Adverse Reaction, Severe, SJS, 07/12/19) YIMI LAU DO Apr 27, 2020 09:43
[2020-04-27] MEDS ORDERED: REXU1TAB2 PO (10:18)
[2020-04-27 16:00] VITALS: BP 128/88
[2020-04-27] MEDS: MONTELUKAST 10 MG TAB PO SCH (20:50)
[2020-04-28] MEDS: LEVOTHYROXINE 25MCG TABLET (0.025MG) PO SCH (06:12)
[2020-04-28 06:32] VITALS: BP 97/58
[2020-04-28] MEDS: CLOBAZAM 10 MG PO SCH ×2 (09:00→21:04)
[2020-04-28] MEDS: FLUTICASONE PROP 0.05% NASAL SPRAY 16 GM (FLONASE) SCH (09:29)
[2020-04-28] MEDS: ATORVASTATIN 20 MG TAB PO SCH (09:29)
[2020-04-28] MEDS: ZONISAMIDE 100 MG CAP (ZONEGRAN) PO SCH ×2 (09:29→21:02)
[2020-04-28] MEDS: BREXPIPRAZOLE 0.5MG TABLET (REXULTI) PO SCH (09:30)
[2020-04-28] MEDS: LORATADINE 10 MG TAB PO SCH (09:30)
[2020-04-28 17:50] VITALS: BP 143/77
[2020-04-28] MEDS: MONTELUKAST 10 MG TAB PO SCH (21:05)
[2020-04-29] MEDS: LEVOTHYROXINE 25MCG TABLET (0.025MG) PO SCH (05:57)
[2020-04-29 06:28] VITALS: BP 106/59
[2020-04-29] MEDS: CLOBAZAM 10 MG PO SCH ×2 (09:00→21:16)
[2020-04-29] MEDS: ZONISAMIDE 100 MG CAP (ZONEGRAN) PO SCH ×2 (09:15→21:18)
[2020-04-29] MEDS: BREXPIPRAZOLE 0.5MG TABLET (REXULTI) PO SCH (09:15)
[2020-04-29] MEDS: LORATADINE 10 MG TAB PO SCH (09:15)
[2020-04-29] MEDS: ATORVASTATIN 20 MG TAB PO SCH (09:15)
[2020-04-29] MEDS: FLUTICASONE PROP 0.05% NASAL SPRAY 16 GM (FLONASE) SCH (09:16)
[2020-04-29 17:38] VITALS: BP 182/75
[2020-04-29] MEDS: MONTELUKAST 10 MG TAB PO SCH (21:17)
[2020-04-30] MEDS: LEVOTHYROXINE 25MCG TABLET (0.025MG) PO SCH (06:10)
[2020-04-30 06:37] VITALS: BP 110/64
[2020-04-30] MEDS: CLOBAZAM 10 MG PO SCH (09:00)
--- NOTE | 2020-04-30 09:54 | MHDSPDOC ---
[facility] Discharge Summary Discharge Summary DATE OF ADMISSION: Mar 28, 2020 at 19:50 DATE OF DISCHARGE: Apr 30, 2020 at 13:27 DISCHARGE DIAGNOSES: Schizophrenia Intellectual disability moderate CONSULTANTS INVOLVED:[ None (basic hospitalist screening)] REASON FOR ADMISSION & TREATMENT AND PROGRESS ON THE UNIT : The patient was admitted to the inpatient mental health unit initially tried on Abilify and Zyprexa for voices and homicidal thoughts towards her mother. She reported having wants and thoughts to kill her mother and had increasingly become bizarre and paranoid. Mother reported that the patient was becoming more agitated and difficult to contain, she had been kicked out of [facility] due to her increasing violent behavior and was living on her own. Her mother primarily did her medications and have reported changes in her behavior. Additionally she was triaged to going to a residential facility but had made great progress on Rexulti 0.5 mg daily where she eventually was able to consent to having a public health nurse to her medications which referral was done and scheduled for the day after her discharge her mother arranged her medications prior to her coming home and we focused her discharge planning and safety planning on her and her mother as even after her homicidality and voices had resolved she reported that she was frightened that she could become frustrated with her mother and "slap her" it appeared that the relationship between them was the primary motivator for difficulties and the extrication of it was ideal. The referral for long-term residential was still placed as I think she still would benefit DISCHARGE ASSESSMENT[improved] Legal status considerations: The patient at the time of discharge did not meet criteria for involuntary admission/extension due to having a improved mental status exam, improved insight into the situation, They are engaged in the discharge process, as well as being friendly and amenable in behavioral control and havent been engaging in any observed concerning behavior or ideation recently. They decline voluntary extension/admission at this time and must be discharged in [place], as Im unable to make a case for holding the patient against their will. They may have historical risk factors of admissions and other interactions with psychiatry however, those are not modifiable from a clinical perspective. The patient will need to be discharged in [place]. MENTAL STATUS EXAMINATION ON DISCHARGE: [General: Well dressed with good hygiene Speech: More fluid Thought processes: Linear and logical Thought content: Future orientated Abstract reasoning, and computation: Intact Description of associations: Intact Description of abnormal or psychotic thoughts:Denies any suicidal or homicidal ideation. Denies any auditory or visual hallucinations. Does not appear to be responding to internal stimuli. Does not appear to be endorsing any bizarre or paranoid ideation. Judgment: Greatly improved Insight: Greatly improved Orientation: Alert and orientated 3 Recent and remote memory: Intact Attention span and concentration: Intact Fund of knowledge: Baseline mildly impaired Mood: "okay" Affect: Euthymic with a full range, smiling] PLAN/FOLLOWUP ARRANGEMENTS: Follow up appointments made (PCP and MH in 5 days of D/C date) and safety plan completed. Safety Planning aspects completed prior to discharge [Medication supplies limited to 7 days with 4 refills to prevent accumulation to OD] [Family contact completed, educated on safe practices, instructed on removal and mitigation of dangerous means] [RN reviewed crisis hotline information and other aspects to empower patient to access care in interim before next appointment.] The amount of time spent in the coordination of care for this patient was approximately 30 minutes. Vital Signs/I&Os Vital Signs Date Time Temp Pulse Resp B/P (MAP) Pulse Ox O2 Delivery O2 Flow Rate FiO2 04/30/20 06:37 97.5 91 16 110/64 (79) Room Air 04/29/20 17:38 96 Medications Scheduled Atorvastatin Calcium (Lipitor) 20 Mg Tab, 20 MG PO DAILY, (Reported) Brexpiprazole (Rexulti) 0.5 Mg Tablet, 0.5 MG PO DAILY for mood for 7 Days, #7 Calcium Carbonate/Vitamin D3 (Calcium 600-Vit D3 200 Tablet) 1 Tab Tab, 1 TAB PO BID, (Reported) Clobazam (Clobazam) 10 Mg Tablet, 15 MG PO BID, (Reported) Ergocalciferol (Vitamin D2) (Vitamin D2) 50,000 Units Cap, 50,000 UNITS PO Q2WK, (Reported) EVERY OTHER THURSDAY Fluticasone Propionate (Fluticasone Propionate) 16 Gm [place].susp, 2 SPRAYS NA DAILY, (Reported) Levothyroxine Sodium (Levothyroxine Sodium) 25 Mcg Tab, 25 MCG PO DAILY, (Reported) Loratadine (Loratadine) 10 Mg Tab, 10 MG PO DAILY, (Reported) Montelukast Sodium (Montelukast Sodium) 10 Mg Tab, 10 MG PO QHS, (Reported) Zonisamide (Zonisamide) 100 Mg Cap, 200 MG PO BID, (Reported) Scheduled PRN Albuterol Sulf (Albuterol Sulfate) 2.5 Mg/3 Ml Vial.neb, 2.5 MG INH QID PRN for SOB/WHEEZING, (Reported) Ketoconazole (Ketoconazole) 120 Ml Shampoo, 1 DOSE TOP 3XW PRN for RASH, (Reported) Allergies Coded Allergies: Cephalosporins (Verified Allergy, Intermediate, HIVES, 03/28/20) cefaclor (Verified Allergy, Unknown, 07/12/19) lamotrigine (Verified Adverse Reaction, Severe, SJS, 07/12/19) YIMI LAU DO Apr 30, 2020 09:54
[2020-04-30] MEDS: BREXPIPRAZOLE 0.5MG TABLET (REXULTI) PO SCH (10:05)
[2020-04-30] MEDS: ATORVASTATIN 20 MG TAB PO SCH (10:05)
[2020-04-30] MEDS: LORATADINE 10 MG TAB PO SCH (10:05)
[2020-04-30] MEDS: ZONISAMIDE 100 MG CAP (ZONEGRAN) PO SCH (10:05)
[2020-04-30] MEDS: FLUTICASONE PROP 0.05% NASAL SPRAY 16 GM (FLONASE) SCH (10:06)
== END 2020-04-30 13:27 | disposition home or self-care (01) | DRG 885 ==
LOC: M ED 14:13 → M ED INP 19:50 → M PSY 20:40
PROVIDERS: ADMIT Psychiatry & Neurology Addiction Medicine; ATTEND Psychiatry & Neurology Addiction Medicine
DX: F20.9 Schizophrenia, unspecified (principal); F71 Moderate intellectual disabilities; R45.850 Homicidal ideations; Z79.899 Other long term (current) drug therapy; Z88.8 Allergy status to other drugs, medicaments and biological substances; G40.909 Epilepsy, unspecified, not intractable, without status epilepticus; E03.9 Hypothyroidism, unspecified

== ENCOUNTER → 2020-05-07 | Outpatient (REF) | payer MEDICARE, MEDICAID ==
[~2020-05-07] MED LIST changes: +REXU1TAB2 PO
[2020-05-07 15:19] LABS: BASO # 0.1 10^3/uL (0.0-0.2); BASO % 0.5 % (0.0-1.0); EOS # 0.1 10^3/uL (0.0-0.5); EOS % 1.4 % (0.0-3.0); HEMATOCRIT 44.7 % (36.0-47.0); HEMOGLOBIN 14.2 g/dl (12.0-15.5); LYMPH # 2.4 10^3/uL (1.5-5.0); LYMPH % 23.5 % (24.0-44.0); MEAN CORPUSCULAR HEMOGLOBIN 30.6 pg (27.0-33.0); MEAN CORPUSCULAR HGB CONC 31.8 g/dl (32.0-36.5); MEAN CORPUSCULAR VOLUME 96.3 fl (80.0-96.0); MONO # 0.7 10^3/uL (0.0-0.8); NEUTROPHILS # 6.7 10^3/uL (1.5-8.5); NEUTROPHILS % 67.3 % (36.0-66.0); PLATELET COUNT, AUTOMATED 278 10^3/uL (150-450); RED BLOOD COUNT 4.64 10^6/uL (4.00-5.40)
[2020-05-07 16:22] LABS: ALBUMIN 3.9 GM/DL (3.2-5.2); ALT/SGPT 22 U/L (12-78); BILIRUBIN,TOTAL 0.2 MG/DL (0.2-1.0); BLOOD UREA NITROGEN 11 MG/DL (7-18); CALCIUM LEVEL 9.2 MG/DL (8.5-10.1); CARBON DIOXIDE LEVEL 26 MEQ/L (21-32); CHLORIDE LEVEL 110 MEQ/L (98-107); CHOLESTEROL LEVEL 135 MG/DL (<200); CHOLESTEROL RISK RATIO 2.368 (<5); CORTISOL BASELINE 3.4 UG/DL (4.3-22.4); CREATININE FOR GFR 0.96 MG/DL (0.55-1.30); FOLLICLE STIMULATING HORMONE 4.1 mIU/mL; FREE T4 0.73 NG/DL (0.76-1.46); GLOMERULAR FILTRATION RATE > 60.0 (>60); GLUCOSE, FASTING 79 MG/DL (70-100); HDL CHOLESTEROL 57 MG/DL (>40); LDL CHOLESTEROL 63 MG/DL (<100); LUTEINIZING HORMONE 5.6 mIU/mL; NON-HDL-C 78 MG/DL; POTASSIUM SERUM 4.5 MEQ/L (3.5-5.1); PROLACTIN 10.9 NG/ML; PTH INTACT 13.8 PG/ML (18.5-88.0); SODIUM LEVEL 140 MEQ/L (136-145); TOTAL 25(OH) VITAMIN D 44.8 NG/ML (30.0-100.0); TOTAL PROTEIN 6.7 GM/DL (6.4-8.2); TRIGLYCERIDES LEVEL 75 MG/DL (<150)
[2020-05-07 18:17] LABS: HEMOGLOBIN A1c 5.5 %
[2020-05-09 12:08] LABS: ADRENOCORTICOTROPHIC HORMONE 10.2 pg/mL (7.2-63.3); INSULIN LEVEL 11.3 uIU/mL (2.6-24.9)
== END ==
LOC: M SFHCPLAZ 11:55
PROVIDERS: ATTEND Family Medicine
DX: E03.9 Hypothyroidism, unspecified (principal); E78.5 Hyperlipidemia, unspecified; D75.89 Other specified diseases of blood and blood-forming organs; R73.01 Impaired fasting glucose; E23.7 Disorder of pituitary gland, unspecified; E55.9 Vitamin D deficiency, unspecified; Z23 Encounter for immunization
CPT/HCPCS: 36415; 80053; 80061; 82024; 82306; 82533; 83001; 83002; 83036; 83525; 83970; 84146; 84439; 84443; 85025; 86335; 90682; G0008; G0463

== ENCOUNTER 2020-05-24 17:43 | Emergency (ER) | payer MEDICAID, MEDICARE ==
[~2020-05-24] VITALS: Ht 162.6 cm; Wt 79.5 kg
[2020-05-24 19:17] VITALS: BP 126/77
== END 2020-05-24 19:21 | disposition home or self-care (01) ==
LOC: M ED 17:43
DX: F20.9 Schizophrenia, unspecified (principal); F71 Moderate intellectual disabilities; J45.909 Unspecified asthma, uncomplicated; K21.9 Gastro-esophageal reflux disease without esophagitis; Z88.8 Allergy status to other drugs, medicaments and biological substances; Z79.51 Long term (current) use of inhaled steroids; Z79.899 Other long term (current) drug therapy

== ENCOUNTER → 2020-05-30 | Outpatient (REF) | payer MEDICARE, MEDICAID | LOC: M SFHCPLAZ 08:33 | PROVIDERS: ATTEND Family Medicine | DX: E23.7 Disorder of pituitary gland, unspecified (principal) ==

== ENCOUNTER 2020-06-02 18:32 | Inpatient (IN) | payer MEDICAID, MEDICARE ==
[~2020-06-02] VITALS: Ht 170.2 cm; Wt 95.7 kg
[~2020-06-02 18:32] MED LIST changes: +MONT10TA10 PO; -MONT5TAB2 PO
[2020-06-02 19:05] LABS: HEMATOCRIT 44.3 % (36.0-47.0); HEMOGLOBIN 13.7 g/dl (12.0-15.5); MEAN CORPUSCULAR HEMOGLOBIN 29.1 pg (27.0-33.0); MEAN CORPUSCULAR HGB CONC 30.9 g/dl (32.0-36.5); MEAN CORPUSCULAR VOLUME 94.1 fl (80.0-96.0); PLATELET COUNT, AUTOMATED 258 10^3/uL (150-450); RED BLOOD COUNT 4.71 10^6/uL (4.00-5.40); WHITE BLOOD COUNT 10.1 10^3/uL (4.0-10.0)
[2020-06-02 20:48] LABS: ACETAMINOPHEN LEVEL < 2.0 UG/ML (10.0-30.0); ALBUMIN 3.8 GM/DL (3.2-5.2); ALT/SGPT 17 U/L (12-78); BILIRUBIN,DIRECT 0.1 MG/DL (0.0-0.2); BILIRUBIN,TOTAL 0.3 MG/DL (0.2-1.0); BLOOD UREA NITROGEN 9 MG/DL (7-18); CALCIUM LEVEL 8.4 MG/DL (8.5-10.1); CARBON DIOXIDE LEVEL 25 MEQ/L (21-32); CHLORIDE LEVEL 107 MEQ/L (98-107); CREATININE FOR GFR 0.91 MG/DL (0.55-1.30); ETHYL ALCOHOL (ETHANOL) < 0.003 % (0.000-0.010); GLOMERULAR FILTRATION RATE > 60.0 (>60); GLUCOSE, FASTING 93 MG/DL (70-100); POTASSIUM SERUM 3.6 MEQ/L (3.5-5.1); SALICYLATE LEVEL < 1.7 MG/DL (5.0-30.0); SODIUM LEVEL 138 MEQ/L (136-145); TOTAL PROTEIN 6.9 GM/DL (6.4-8.2)
[2020-06-02 20:49] LABS: AMPHETAMINES LEVEL URINE NEGATIVE (NEGATIVE); BARBITURATES URINE NEGATIVE (NEGATIVE); BENZODIAZEPINES URINE POSITIVE (NEGATIVE); CANNABINOIDS URINE NEGATIVE (NEGATIVE); COCAINE METABOLITE URINE NEGATIVE (NEGATIVE); METHADONE URINE NEGATIVE (NEGATIVE); OPIATES URINE NEGATIVE (NEGATIVE); PHENCYCLIDINE URINE NEGATIVE (NEGATIVE)
[2020-06-02] MEDS ORDERED: REXU1TAB2 PO (20:55)
[2020-06-02] MEDS ORDERED: ALBUTEROL SULFATE 2.5 MG/0.5 ML INH NEB SOLN INH PRN (22:15)
[2020-06-02] MEDS ORDERED: MOM 30ML SUSPENSION UDC PO PRN (22:15)
[2020-06-02] MEDS ORDERED: ACETAMINOPHEN TAB 650MG DOSE (2X325MG) PO PRN (22:15)
[2020-06-02] MEDS ORDERED: traZODone 50 MG TAB PO PRN (22:15)
[2020-06-02] MEDS ORDERED: MAALOX 30 ML SUSP *UDC PO PRN (22:15)
[2020-06-03 01:00] VITALS: BP 139/69
[2020-06-03] MEDS: ZONISAMIDE 100 MG CAP (ZONEGRAN) PO SCH ×3 (06:44→20:47)
[2020-06-03] MEDS: LEVOTHYROXINE 25MCG TABLET (0.025MG) PO SCH (07:04)
[2020-06-03] MEDS: BREXPIPRAZOLE 0.5MG TABLET (REXULTI) PO SCH (08:58)
[2020-06-03] MEDS: ATORVASTATIN 20 MG TAB PO SCH (08:58)
[2020-06-03] MEDS: VITAMIN D 50,000 UNITS CAPSULE (ERGOCALCIFEROL 1.25MG) PO SCH (09:00)
[2020-06-03] MEDS ORDERED: ENTER DRUG NAME HERE (PATIENT'S OWN MED) PO SCH (09:00)
[2020-06-03] MEDS: CLOBAZAM 10 MG PO SCH ×2 (09:02→21:00)
[2020-06-03 16:10] VITALS: BP 131/86
[2020-06-04 07:00] VITALS: BP 117/55
[2020-06-04] MEDS: LEVOTHYROXINE 25MCG TABLET (0.025MG) PO SCH (07:25)
[2020-06-04] MEDS: ATORVASTATIN 20 MG TAB PO SCH (09:02)
[2020-06-04] MEDS: ZONISAMIDE 100 MG CAP (ZONEGRAN) PO SCH ×2 (09:02→20:44)
[2020-06-04] MEDS: BREXPIPRAZOLE 0.5MG TABLET (REXULTI) PO SCH (09:03)
[2020-06-04] MEDS: CLOBAZAM 10 MG PO SCH ×2 (09:14→20:44)
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
[2020-06-04 17:58] VITALS: BP 148/88
[2020-06-05] MEDS: LEVOTHYROXINE 25MCG TABLET (0.025MG) PO SCH (05:42)
[2020-06-05 06:28] VITALS: BP 144/65
[2020-06-05] MEDS: ATORVASTATIN 20 MG TAB PO SCH (08:42)
[2020-06-05] MEDS: VITAMIN D 50,000 UNITS CAPSULE (ERGOCALCIFEROL 1.25MG) PO SCH (08:43)
[2020-06-05] MEDS: ZONISAMIDE 100 MG CAP (ZONEGRAN) PO SCH ×2 (08:44→20:16)
[2020-06-05] MEDS: BREXPIPRAZOLE 2MG TABLET (REXULTI) PO SCH (08:44)
[2020-06-05] MEDS: CLOBAZAM 10 MG PO SCH ×2 (09:56→20:21)
[2020-06-05 17:00] VITALS: BP 146/71
--- NOTE | 2020-06-05 17:07 | MHIPNPDOC ---
[facility] Progress Note Progress Note DATE OF SERVICE: 06/05/20 HISTORY: This is one of multiple admissions for this 35-year-old woman who was admitted because of "a voice inside my head is telling me to kill myself." She states that she is having thoughts of cutting her wrists for the past day. She is afraid she is going to end up killing herself. The patient also stated the voices are telling her to kill her mother and her niece. Of note, the patient had a recent psychiatric hospitalization at [facility] from 03/28/2020 to 04/30/2020, diagnosed with schizophrenia and intellectual disability moderate and she was discharged on Rexulti 0.5 mg daily. She presented with the same, actually at that time it was just homicidal thoughts against her mother, stating that she was afraid that she would hurt her mother. VITAL SIGNS: See below. CURRENT MEDICATIONS: See below. MENTAL STATUS EXAMINATION: Patient is a 35-year-old Single, Disabled (Intellectually Disabled) Domiciled Female, who is admitted to [facility] for auditory command hallucinations telling her to kill herself. In today's interview, patient is seen in her room and she is agreeable to the interview. She is dressed appropriately, appears her stated age. She is not observed with restlessness, psychomotor agitation or retardation. Speech: Is mildly slurred but this is not abnormal for the patient Language skills are limited due to intellectual disability Thought processes including: linear, but limited due to intellectual disability Thought content: reports depression and anxiety at a 10/10 Abstract reasoning, and computation: limited Description of associations: has suicidal and homicidal thoughts, reports AH/VH Description of abnormal or psychotic thoughts: reports delusional thoughts about the Devil " I am not ok, the Devil" Judgment: limited Insight: limited Orientation: alert and oriented to person, place, time and situation Recent and remote memory: fair Attention span and concentration: poor Language: fair Fund of knowledge: below average Mood: depressed and anxious "I am not good" Affect: flat/congruent DIAGNOSES: Unspecified psychotic disorder. Intermittent explosive disorder. Other specified anxiety disorder. Other specified compulsive and related disorder. Mild intellectual disability. ASSESSMENT: Patient reports delusional thinking about the Devil. I am unclear as to whether patient is reporting anything new, she had not been observed with delusional thinking prior. States that she continues to have thoughts about hurting herself and hurting her mother. Stated, "I see and stuff. I think about hurting my Dad and my Mom" She states that she wishes she could try to hurt herself on the unit but hasn't tried. Apparently she states that she thinks about it but hasn't tried. MANAGEMENT PLAN: Continue all medications, we will discharge when she is stable TIME SPENT: 25 minutes. Vital Signs Vital Signs Date Time Temp Pulse Resp B/P (MAP) Pulse Ox O2 Delivery O2 Flow Rate FiO2 06/05/20 06:28 98.5 80 14 144/65 (91) 95 Room Air Current Medications Current Medications Medications (Trade) Dose Ordered Sig/Jonathan Route PRN Reason Start Time Stop Time Status Last Admin Dose Admin Acetaminophen (Tylenol Tab) 650 mg Q6HP PRN PO HEADACHE or DISCOMFORT 06/02/20 22:15 Al Hydrox/Mg Hydrox/Simethicone (Mylanta) 30 ml Q4HP PRN PO HEARTBURN/INDIGESTION 06/02/20 22:15 Albuterol Sulfate (Proventil Neb) 2.5 mg QID PRN INH SOB/WHEEZING 06/02/20 22:15 Atorvastatin Calcium (Lipitor) 20 mg DAILY PO 06/03/20 09:00 06/05/20 08:42 Brexpiprazole (Rexulti) 1 mg DAILY PO 06/03/20 09:00 06/04/20 13:58 DC 06/04/20 09:03 Brexpiprazole (Rexulti) 2 mg DAILY PO 06/05/20 09:00 06/05/20 08:44 Home Med (Med Rec Complete!) ASDIRECTED XX 06/02/20 21:00 06/02/20 21:08 DC Levothyroxine Sodium (Synthroid) 25 mcg DAILY@0600 PO 06/03/20 06:00 06/05/20 05:42 Magnesium Hydroxide (Milk Of Magnesia) 30 ml DAILYPRN PRN PO CONSTIPATION 06/02/20 22:15 Patient Own Medication (Patient'S Own Med) Clobazam 15mg TAKE BY MO... BID PO 06/03/20 09:00 06/03/20 00:52 DC Patient Own Medication (Pt Own Med *Controlled Subst*) Clobazam 10mg TABS TAKE ... BID PO 06/03/20 09:00 06/05/20 09:56 Trazodone HCl (Desyrel) 50 mg QHSP PRN PO INSOMNIA 06/02/20 22:15 Vitamin D (Drisdol) 50,000 units Q14D@0900 PO 06/03/20 09:00 06/05/20 08:43 Zonisamide (Zonegran) 200 mg BID PO 06/02/20 21:00 06/05/20 08:44 Allergies Coded Allergies: Cephalosporins (Verified Allergy, Intermediate, HIVES, 03/28/20) cefaclor (Verified Allergy, Unknown, 07/12/19) lamotrigine (Verified Adverse Reaction, Severe, SJS, 07/12/19) CHANELLE DENNISON NP Jun 05, 2020 17:07
[2020-06-06] MEDS: LEVOTHYROXINE 25MCG TABLET (0.025MG) PO SCH (05:56)
[2020-06-06 06:31] VITALS: BP 138/58
[2020-06-06] MEDS: BREXPIPRAZOLE 2MG TABLET (REXULTI) PO SCH (09:05)
[2020-06-06] MEDS: CLOBAZAM 10 MG PO SCH ×2 (09:05→21:18)
[2020-06-06] MEDS: ATORVASTATIN 20 MG TAB PO SCH (09:05)
[2020-06-06] MEDS: ZONISAMIDE 100 MG CAP (ZONEGRAN) PO SCH ×2 (09:05→20:49)
--- NOTE | 2020-06-06 12:55 | MHIPN ---
COUNTS INCLUDE 234 BEDS AT THE [facility] PROGRESS NOTE DATE: 06/04/2020 HISTORY OF PRESENT ILLNESS: The patient today states that she continues to hear voices telling her to hurt herself, to hurt her family. The patient continues to say that it is not her own thinking. MENTAL STATUS EXAM: She is alert and oriented times 3. Eye contact is fair. Psychomotor is normal. She does have a speech impediment. She says her mood is okay. Affect is flat. She is reporting auditory hallucinations command type to hurt self and others. Concentration is fair. Insight and judgment is poor. DIAGNOSES: 1. Unspecified psychotic disorder. 2. Intermittent explosive disorder. 3. Other specified anxiety disorder. 4. Other specified compulsive and other related disorder. 5. Mild intellectual disability. TREATMENT PLAN: At this point we will continue the patient on her current medications. I had just increased her Rexulti and I will further increase it to 2 mg.
[2020-06-06 17:57] VITALS: BP 144/89
[2020-06-07] MEDS: LEVOTHYROXINE 25MCG TABLET (0.025MG) PO SCH (05:52)
[2020-06-07] MEDS: BREXPIPRAZOLE 2MG TABLET (REXULTI) PO SCH (08:39)
[2020-06-07] MEDS: ZONISAMIDE 100 MG CAP (ZONEGRAN) PO SCH ×2 (08:39→21:21)
[2020-06-07] MEDS: ATORVASTATIN 20 MG TAB PO SCH (08:39)
[2020-06-07] MEDS: CLOBAZAM 10 MG PO SCH ×2 (08:55→21:23)
--- NOTE | 2020-06-07 14:43 | MHIPN ---
[facility] PROGRESS NOTE DATE: 06/06/2020 HISTORY OF PRESENT ILLNESS: The patient today tells me that she is doing "okay." Then when I asked her if she is doing better she says "a little bit." The patient has a significant speech impediment so sometimes it is very difficult to fully understand what she is saying. It sounds like she is maybe admitting for the first time today that these thoughts that she has about harming herself and her family are really her thoughts and not actually a voice, but again it is very difficult due to her speech impediment to know how reliable this is. She says she talked with her mom today and they talked about the fact that mom needs to maybe stay away from coming to her apartment. So when I asked her if she has these thoughts because she is feeling angry with her family and I ask her why she could not come up with any reason and could not even tell me that she is angry at the family, but then she stated that she is afraid that she will become angry and get mad and hurt her family. MENTAL STATUS EXAM: This patient as I said has a significant speech impediment. Her eye contact was good and she was verbally spontaneous. There is no formal thought disorder noted. She said her mood was "a little better." Affect is constricted, but appropriate to mood. She is denying today that she is having thoughts about hurting self or family and again she seemed to admit maybe for the first time that maybe these are just her own thoughts and not actual voices in her head, but again I do not know how reliable she is today because it is very difficult with her speech impediment to fully understand what she is saying. Her concentration is fair. Memory is grossly intact. Insight and judgment is poor. DIAGNOSES: 1. Unspecified psychotic disorder. 2. Intermittent explosive disorder. 3. Other specified anxiety disorder. 4. Other specified compulsive and other related disorder. 5. Mild intellectual disability. TREATMENT PLAN: At this point we just increased the Rexulti yesterday to 2 mg and so we will continue it at this dose, we will continue to monitor. I still want to keep her on the current dose of Rexulti, but if possible we may need to increase it further.
[2020-06-07 18:00] VITALS: BP 130/71
[2020-06-08] MEDS: LEVOTHYROXINE 25MCG TABLET (0.025MG) PO SCH (05:42)
[2020-06-08 06:17] VITALS: BP 114/64
[2020-06-08] MEDS: ATORVASTATIN 20 MG TAB PO SCH (08:52)
[2020-06-08] MEDS: ZONISAMIDE 100 MG CAP (ZONEGRAN) PO SCH ×2 (08:52→21:04)
[2020-06-08] MEDS: BREXPIPRAZOLE 2MG TABLET (REXULTI) PO SCH (08:52)
[2020-06-08] MEDS: CLOBAZAM 10 MG PO SCH ×2 (08:55→21:07)
--- NOTE | 2020-06-08 10:25 | MHIPN ---
[facility] PROGRESS NOTE DATE: 06/07/2020 HISTORY OF PRESENT ILLNESS: The patient today tells me that she feels that she needs to go to assisted treatment in a hospital because she feels that she needs to get more help than she is getting. She says that she is not having thoughts about hurting herself or others today, but she is afraid that if she goes home she is going to start having those thoughts again. The patient quickly became quite agitated and decided that she did not want to talk to me any further. 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 MENTAL STATUS EXAM: This patient is alert and oriented times 3. She does have a significant speech impediment and often I have to ask her to repeat what she was saying. She became pretty agitated as I noted above. Her mood was angry and her affect was labile. She was denying suicidal and homicidal ideations.It is not clear to me that she actually has hallucinations and yesterday for the first time she admitted that it was her own thinking so it is just not clear. Insight and judgment is poor. Concentration is fair. DIAGNOSES: 1. Unspecified psychotic disorder. 2. Intermittent explosive disorder. 3. Other specified anxiety disorder. 4. Other specified compulsive and other related disorder. 5. Mild intellectual disability. TREATMENT PLAN: At this point we will continue to monitor this patient for possible psychotic symptoms and we will continue to titrate medications as indicated. AYO
[2020-06-08 17:36] VITALS: BP 142/88
--- NOTE | 2020-06-08 18:07 | HPEPDOC ---
[facility] Medical History & Physical Date of Admission Jun 03, 2020 Date of Service: Jun 08, 2020 History and Physical CHIEF COMPLAINT: The devil is telling her to kill herself and her parents HISTORY OF PRESENT ILLNESS: Ms. Aaron is a 35-year-old female with mild mental retardation and paranoid schizophrenia who is here for auditory and visual hallucinations telling her to kill herself and her parents. She tells me that the devil is telling her to kill herself and her parents. Otherwise she has no physical complaints. She tells me that she does have occasional diarrhea, but no bowel movements today. PAST MEDICAL HISTORY: 1. GERD 2. Hiatal hernia 3. Gastritis 4. Gastroparesis 5. Nonalcoholic fatty liver disease 6. Asthma 7. Allergic rhinitis 8. Mild mental retardation 9. 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 Appendectomy 2. Pyloric stenosis 3. Tumor removed from uterus 4. Endometrial ablation SOCIAL HISTORY: Tobacco use: Denies ETOH: Denies Illicit drug use: Denies FAMILY HISTORY: Father: Medical history unknown to patient Mother: Medical history unknown to patient (in PCPs note, mother has diabetes mellitus) ALLERGIES: Please see below. REVIEW OF SYSTEMS: CONSTITUTIONAL: Denies any fever or chills. Denies lightheadedness or dizziness. ENT: Denies sore throat. RESPIRATORY: Denies shortness of breath. Denies cough. CARDIOVASCULAR: Denies chest pain. GASTROINTESTINAL: Denies abdominal pain. Occasional diarrhea. GENITOURINARY: Denies dysuria. CUTANEOUS: Denies rashes. MUSCULOSKELETAL: Denies muscle weakness. HEMATOLOGICAL/ONCOLOGY: Denies easy bruisability. PSYCHOLOGICAL: Reports hearing the devil who tells her to kill herself and parents. Also reports having bad dreams HOME MEDICATIONS: Please see below. PHYSICAL EXAMINATION: VITAL SIGNS: Temperature 98, pulse 82, respiratory rate 15, blood pressure 142/88, pulse oximetry 98 % on room air. GENERAL: Comfortable, in no apparent distress. HEENT: Pupils are not parallel, EOMI, sclera clear. NECK: Supple RESPIRATORY: Lungs clear to auscultation bilaterally, no rales, wheeze or rhonchi. CARDIOVASCULAR: Regular rate and rhythm. ABDOMEN: Soft, nontender, no guarding or rebound tenderness. Normal bowel so unds. MUSCLE SKELETAL: Muscle strength 5/5 in all extremities. NEUROLOGICAL: CN 312 grossly intact, no focal deficits noted. PSYCHOLOGICAL: Reports auditory and visual hallucinations, mildly flat affect LABORATORY DATA: See below. IMAGING: CT head No acute findings. MICROBIOLOGY: Please see below. ASSESSMENT and PLAN: 1. Unspecified psychotic disorder Tells me that she has bad dreams and that the devil is telling her to kill herself and her parents Being managed in the inpatient mental health unit 2. Asthma Stable, not in exacerbation Continue albuterol as needed 3. Hypothyroidism Continue levothyroxine 4. Hyperlipidemia Continue atorvastatin Thank you for consulting us, we will sign off at this time. It is any further questions or concerns do not hesitate to contact us Vital Signs Vital Signs Date Time Temp Pulse Resp B/P (MAP) Pulse Ox O2 Delivery O2 Flow Rate FiO2 06/08/20 17:36 98.0 82 15 142/88 (106) 98 Room Air Laboratory Data Microbiology Microbiology 06/02/20 Respiratory Virus Panel (PCR) ([facility]) - Final, Complete Home Medications Scheduled Atorvastatin Calcium (Lipitor) 20 Mg Tab, 20 MG PO DAILY Brexpiprazole (Rexulti) 0.5 Mg Tablet, 0.5 MG PO DAILY Calcium Carbonate/Vitamin D3 (Calcium 600-Vit D3 200 Tablet) 1 Tab Tab, 1 TAB PO BID Clobazam (Clobazam) 10 Mg Tablet, 15 MG PO BID Ergocalciferol (Vitamin D2) (Vitamin D2) 50,000 Units Cap, 50,000 UNITS PO Q2WK EVERY OTHER THURSDAY Levothyroxine Sodium (Levothyroxine Sodium) 25 Mcg Tab, 25 MCG PO DAILY Zonisamide (Zonisamide) 100 Mg Cap, 200 MG PO BID Scheduled PRN Albuterol Sulf (Albuterol Sulfate) 2.5 Mg/3 Ml Vial.neb, 2.5 MG INH QID PRN for SOB/WHEEZING Allergies Coded Allergies: Cephalosporins (Verified Allergy, Intermediate, HIVES, 03/28/20) cefaclor (Verified Allergy, Unknown, 07/12/19) lamotrigine (Verified Adverse Reaction, Severe, SJS, 07/12/19) A-FIB/CHADSVASC A-FIB History Current/History of A-Fib/PAF?: No TALITA MEADOWS DO Jun 08, 2020 18:07
[2020-06-09] MEDS: LEVOTHYROXINE 25MCG TABLET (0.025MG) PO SCH (06:24)
[2020-06-09 06:59] VITALS: BP 126/61
[2020-06-09] MEDS: BREXPIPRAZOLE 2MG TABLET (REXULTI) PO SCH (08:15)
[2020-06-09] MEDS: ZONISAMIDE 100 MG CAP (ZONEGRAN) PO SCH ×2 (08:15→21:33)
[2020-06-09] MEDS: ATORVASTATIN 20 MG TAB PO SCH (08:15)
[2020-06-09] MEDS: CLOBAZAM 10 MG PO SCH ×2 (08:20→21:42)
[2020-06-09] MEDS ORDERED: OLANZapine ORAL DISINTEGRATING TAB 5MG PO PRN (11:30)
[2020-06-09 17:48] VITALS: BP 112/69
[2020-06-10] MEDS: LEVOTHYROXINE 25MCG TABLET (0.025MG) PO SCH (06:10)
[2020-06-10 06:46] VITALS: BP 115/57
[2020-06-10] MEDS: ATORVASTATIN 20 MG TAB PO SCH (09:13)
[2020-06-10] MEDS: BREXPIPRAZOLE 2MG TABLET (REXULTI) PO SCH (09:13)
[2020-06-10] MEDS: ZONISAMIDE 100 MG CAP (ZONEGRAN) PO SCH ×2 (09:14→20:20)
[2020-06-10] MEDS: CLOBAZAM 10 MG PO SCH ×2 (09:15→20:19)
[2020-06-11] MEDS: LEVOTHYROXINE 25MCG TABLET (0.025MG) PO SCH (06:22)
[2020-06-11 06:53] VITALS: BP 134/80
[2020-06-11] MEDS: CLOBAZAM 10 MG PO SCH ×2 (08:34→21:21)
[2020-06-11] MEDS: ATORVASTATIN 20 MG TAB PO SCH (08:35)
[2020-06-11] MEDS: BREXPIPRAZOLE 2MG TABLET (REXULTI) PO SCH (08:35)
[2020-06-11] MEDS: ZONISAMIDE 100 MG CAP (ZONEGRAN) PO SCH ×2 (08:36→21:22)
[2020-06-11 17:17] VITALS: BP 118/79
[2020-06-11] MEDS: PRAZOSIN 1 MG CAP PO SCH (21:22)
[2020-06-12] MEDS: LEVOTHYROXINE 25MCG TABLET (0.025MG) PO SCH (06:01)
[2020-06-12 06:23] VITALS: BP 134/71
[2020-06-12] MEDS: CLOBAZAM 10 MG PO SCH ×2 (08:53→20:53)
[2020-06-12] MEDS: ATORVASTATIN 20 MG TAB PO SCH (08:56)
[2020-06-12] MEDS: ZONISAMIDE 100 MG CAP (ZONEGRAN) PO SCH ×2 (08:56→20:54)
[2020-06-12] MEDS: BREXPIPRAZOLE 0.5MG TABLET (REXULTI) PO SCH (08:57)
--- NOTE | 2020-06-12 10:55 | MHIPN ---
[facility] PSYCHIATRIC PROGRESS NOTE DATE: 06/08/20 HISTORY OF PRESENT ILLNESS: Patient complains that the voices in her "head" are loud. She says she continues to have thoughts of harming herself and her family although she does contract for safety at this point. She tells me "I see stuff too." She says that she sees "the devil following me around." MENTAL STATUS EXAM: This patient is alert and oriented times 3. Eye contact is fairly good. She does have a significant speech impediment so it is difficult to fully understand sometimes what she is saying for her to fully describe her thoughts. There is no formal thought disorder noted. She says her mood is "not good." Affect is appropriate to mood and she is possibly appears to be having some command auditory hallucinations to hurt self and hurt family, but it is not clear whether it is hallucinations or not as sometimes she did think that it was her own thoughts. She is denying actual intent to hurt self now. Concentration is fair. Memory is intact. Insight and judgment is poor. DIAGNOSES: 1. Unspecified psychotic disorder. 2. Intermittent explosive disorder. 3. Other specified anxiety disorder. 4. Other specified compulsive and other related disorder. 5. Mild intellectual disability. TREATMENT PLAN: At this point the patient continues to say that she is having command auditory hallucinations to hurt self and her family. Again I am not too sure whether these are hallucinations or not, but I am going to continue the Rexulti 2 mg as the dose had just been increased a few days ago and we will await further clinical response.
--- NOTE | 2020-06-12 12:57 | MHIPN ---
[facility] PSYCHIATRIC PROGRESS NOTE DATE OF SERVICE: 06/11/20 HISTORY OF PRESENT ILLNESS: The patient today continues to say that she is not doing good, that she is having hallucinations telling her to hurt self and her family. She states that she is not sleeping at night, that she is having nightmares about "the devil." MENTAL STATUS EXAM: This patient is alert and oriented times 3. Eye contact is fair. Psychomotor activity has decreased. There is no formal thought disorder noted. She says that her mood is "not good." Affect is flat. She is not actively suicidal or homicidal at this point, but she reports command auditory hallucinations to hurt self and hurt others. Concentration is fair. Insight and judgment is poor. DIAGNOSES: 1. Unspecified psychotic disorder. 2. Intermittent explosive disorder. 3. Other specified anxiety disorder. 4. Other specified compulsive and other related disorder. 5. Mild intellectual disability. TREATMENT PLAN: At this point the patient continues to say she is hearing voices to hurt self and others. I would increase the Rexulti to 3 mg once daily and I am going to start her on some prazosin 1 mg at bedtime to see if that could possibly help her with her complaints of nightmares. AYO
[2020-06-12 16:32] VITALS: BP 124/56
[2020-06-12] MEDS: PRAZOSIN 1 MG CAP PO SCH (20:53)
[2020-06-13] MEDS: LEVOTHYROXINE 25MCG TABLET (0.025MG) PO SCH (06:26)
[2020-06-13 07:08] VITALS: BP 122/68
[2020-06-13] MEDS: CLOBAZAM 10 MG PO SCH ×2 (09:08→21:12)
[2020-06-13] MEDS: ZONISAMIDE 100 MG CAP (ZONEGRAN) PO SCH ×2 (09:09→20:45)
[2020-06-13] MEDS: ATORVASTATIN 20 MG TAB PO SCH (09:09)
[2020-06-13] MEDS: BREXPIPRAZOLE 0.5MG TABLET (REXULTI) PO SCH (09:10)
--- NOTE | 2020-06-13 11:28 | MHIPNPDOC ---
[facility] Progress Note Progress Note DATE OF SERVICE: 06/13/20 ISTORY: This is one of multiple admissions for this 35-year-old woman who was admitted because of "a voice inside my head is telling me to kill myself." She states that she is having thoughts of cutting her wrists for the past day. She is afraid she is going to end up killing herself. The patient also stated the voices are telling her to kill her mother and her niece. Of note, the patient had a recent psychiatric hospitalization at [facility] from 03/28/2020 to 04/30/2020, diagnosed with schizophrenia and intellectual disability moderate and she was discharged on Rexulti 0.5 mg daily. She presented with the same, actually at that time it was just homicidal thoughts against her mother, stating that she was afraid that she would hurt her mother. VITAL SIGNS: See below. CURRENT MEDICATIONS: See below. MENTAL STATUS EXAMINATION: Patient is a 35-year-old Single, Disabled (Intellectually Disabled) Domiciled Female, who is admitted to [facility] for auditory command hallucinations telling her to kill herself. In today's interview, patient is seen in her room and she is agreeable to the interview. She is dressed appropriately, appears her stated age. Her hygiene and grooming is fair, eye contact is maintained. She is not observed with restlessness, psychomotor agitation or retardation. Speech: Is mildly slurred but this is not abnormal for the patient Language skills are limited due to intellectual disability Thought processes including: linear, but limited due to intellectual disability Thought content: reports mild depression and anxiety Abstract reasoning, and computation: limited Description of associations: has continued homicidal thoughts, reports AH/command hallucinations to kill her parents with a knife Description of abnormal or psychotic thoughts: reports thoughts about stabbing her parents Judgment: limited Insight: limited Orientation: alert and oriented to person, place, time and situation Recent and remote memory: fair Attention span and concentration: poor Language: fair Fund of knowledge: below average Mood: appears mildly depressed and anxious "I am not good" Affect: flat/congruent DIAGNOSES: Schizophrenia, Paranoid Type Intermittent explosive disorder. Other specified anxiety disorder. Other specified compulsive and related disorder. Mild intellectual disability. ASSESSMENT: Patient reports continued auditory hallucinations, states "I am not better and I want to get better." She states that her voices have increased since the beginning of her admission and states "My voices tell me to kill my parents with a knife. She reports that she fears she would actually do it. She presented in the interview a letter stating that she wanted to be transferred to another facility stating that she wants more help and feels that she needs to be transferred to a different hospital. When asked about [facility] she states, "My mom wouldn't want me to go there." She says "I want to go to [place]." I reviewed with the patient levels of hospitalization. Patient has intellectual disability and I am not sure that she comprehends what a transfer means for her. I do feel that if her family feels that further hospitalization would help her, Linda could facilitate the transfer to a [facility] if the treatment team felt that this was necessary. MANAGEMENT PLAN: Continue all medications, we will discharge when she is stable or [facility] if it is recommended by parents, patient and treatment team. TIME SPENT: 25 minutes. Vital Signs Vital Signs Date Time Temp Pulse Resp B/P (MAP) Pulse Ox O2 Delivery O2 Flow Rate FiO2 06/13/20 07:08 98.0 85 18 122/68 (86) 94 Room Air Current Medications Current Medications Medications (Trade) Dose Ordered Sig/Jonathan Route PRN Reason Start Time Stop Time Status Last Admin Dose Admin Acetaminophen (Tylenol Tab) 650 mg Q6HP PRN PO HEADACHE or DISCOMFORT 06/02/20 22:15 Al Hydrox/Mg Hydrox/Simethicone (Mylanta) 30 ml Q4HP PRN PO HEARTBURN/INDIGESTION 06/02/20 22:15 Albuterol Sulfate (Proventil Neb) 2.5 mg QID PRN INH SOB/WHEEZING 06/02/20 22:15 Atorvastatin Calcium (Lipitor) 20 mg DAILY PO 06/03/20 09:00 06/13/20 09:09 Brexpiprazole (Rexulti) 1 mg DAILY PO 06/03/20 09:00 06/04/20 13:58 DC 06/04/20 09:03 Brexpiprazole (Rexulti) 2 mg DAILY PO 06/05/20 09:00 06/11/20 14:17 DC 06/11/20 08:35 Brexpiprazole (Rexulti) 3 mg DAILY PO 06/12/20 09:00 06/13/20 09:10 Home Med (Med Rec Complete!) ASDIRECTED XX 06/02/20 21:00 06/02/20 21:08 DC Levothyroxine Sodium (Synthroid) 25 mcg DAILY@0600 PO 06/03/20 06:00 06/13/20 06:26 Magnesium Hydroxide (Milk Of Magnesia) 30 ml DAILYPRN PRN PO CONSTIPATION 06/02/20 22:15 Olanzapine (ZyPREXA ZYDIS) 5 mg Q6HP PRN PO ANXIETY/AGITATION 06/09/20 11:30 06/11/20 11:00 DC 06/09/20 11:34 Patient Own Medication (Patient'S Own Med) Clobazam 15mg TAKE BY MO... BID PO 06/03/20 09:00 06/03/20 00:52 DC Patient Own Medication (Pt Own Med *Controlled Subst*) Clobazam 10mg TABS TAKE ... BID PO 06/03/20 09:00 06/13/20 09:08 Prazosin HCl (Minipress) 1 mg QHS PO 06/11/20 21:00 06/12/20 20:53 Trazodone HCl (Desyrel) 50 mg QHSP PRN PO INSOMNIA 06/02/20 22:15 Vitamin D (Drisdol) 50,000 units Q14D@0900 PO 06/03/20 09:00 06/05/20 08:43 Zonisamide (Zonegran) 200 mg BID PO 06/02/20 21:00 06/13/20 09:09 Allergies Coded Allergies: Cephalosporins (Verified Allergy, Intermediate, HIVES, 03/28/20) cefaclor (Verified Allergy, Unknown, 07/12/19) lamotrigine (Verified Adverse Reaction, Severe, SJS, 07/12/19) CHANELLE DENNISON NP Jun 13, 2020 11:18
[2020-06-13 16:29] VITALS: BP 123/72
[2020-06-13] MEDS: PRAZOSIN 1 MG CAP PO SCH (20:46)
[2020-06-14 06:00] VITALS: BP 118/70
[2020-06-14] MEDS: LEVOTHYROXINE 25MCG TABLET (0.025MG) PO SCH (06:20)
[2020-06-14] MEDS: BREXPIPRAZOLE 0.5MG TABLET (REXULTI) PO SCH (09:17)
[2020-06-14] MEDS: ATORVASTATIN 20 MG TAB PO SCH (09:17)
[2020-06-14] MEDS: ZONISAMIDE 100 MG CAP (ZONEGRAN) PO SCH ×2 (09:18→21:02)
[2020-06-14] MEDS: CLOBAZAM 10 MG PO SCH ×2 (09:19→21:04)
--- NOTE | 2020-06-14 13:37 | MHIPNPDOC ---
[facility] Progress Note Progress Note DATE OF SERVICE: 06/14/20 HISTORY: Patient is a 35 year old, Single, Disabled, Domiciled, Female with a history of Schizophrenia and Intellectual Disability with multiple psy chiatric admissions to this facility. On this occasion she present with complaints of "a voice inside my head is telling me to kill myself." She states that she is having thoughts of cutting her wrists for the past day. She is afraid she is going to end up killing herself. The patient also stated the voices are telling her to kill her mother and her niece. Of note, the patient had a recent psychiatric hospitalization at [facility] from 03/28/2020 to 04/30/2020, diagnosed with schizophrenia and intellectual disability moderate and she was discharged on Rexulti 0.5 mg daily. She presented with the same, actually at that time it was just homicidal thoughts against her mother, stating that she was afraid that she would hurt her mother. Throughout this hospitalization she has continued to voice having AH to kill her parents with a knife and then kill herself. VITAL SIGNS: See below. CURRENT MEDICATIONS: See below. MENTAL STATUS EXAMINATION: Patient is a 35-year-old Single, Disabled (Intellectually Disabled) Domiciled Female, who is admitted to [facility] for auditory command hallucinations telling her to kill herself/parents. In today's interview, patient is seen in provider office. She is dressed appropriately, appears her stated age. Her hygiene and grooming is poor and unkempt, eye contact is intermittent. She is alert and oriented to person, place time and situation. She is sad and crying in the interview. She is not observed with restlessness, psychomotor agitation or retardation. Speech: Is mildly slurred but this is not abnormal for the patient Language skills are limited due to intellectual disability Thought processes including: linear, but limited due to intellectual disability Thought content: reports mild depression and anxiety Abstract reasoning, and computation: limited Description of associations: has continued homicidal thoughts, reports AH/command hallucinations to kill her parents with a knife Description of abnormal or psychotic thoughts: reports thoughts about stabbing her parents Judgment: limited Insight: limited Orientation: alert and oriented to person, place, time and situation Recent and remote memory: fair Attention span and concentration: poor Language: fair Fund of knowledge: below average Mood: appears mildly depressed and anxious "I am not good" Affect: flat/congruent DIAGNOSES: Schizophrenia, Paranoid Type Intermittent explosive disorder. Other specified anxiety disorder. Other specified compulsive and related disorder. Intellectual disability. ASSESSMENT: Patient seen today, she is crying in the interview. Has a piece of paper with "Lexapro and Zyprexa" written on it. She states that she wants a change from Lexapro "I want good medicine." She reports that the Lexapro "doesn't work" and that she continues to have auditory hallucinations to harm her parents. Patient has very little to say in today's interview and is very focused on medications. She is crying intermittently in the office and appear to be very distressed. States that she only wants the "good medicine." She has had no suicidal gestures or attempts during this day. She appears to be in good behavioral control. She is observed with depression and anxiety with continued homicidal thoughts to harm her parents due to auditory hallucinations telling her to do so. MANAGEMENT PLAN: Continue all medications, we will discharge when she is stable. TIME SPENT: 25 minutes. Vital Signs Vital Signs Date Time Temp Pulse Resp B/P (MAP) Pulse Ox O2 Delivery O2 Flow Rate FiO2 06/14/20 06:00 98.2 118 18 118/70 (86) 97 06/13/20 16:29 Room Air Current Medications Current Medications Medications (Trade) Dose Ordered Sig/Jonathan Route PRN Reason Start Time Stop Time Status Last Admin Dose Admin Acetaminophen (Tylenol Tab) 650 mg Q6HP PRN PO HEADACHE or DISCOMFORT 06/02/20 22:15 Al Hydrox/Mg Hydrox/Simethicone (Mylanta) 30 ml Q4HP PRN PO HEARTBURN/INDIGESTION 06/02/20 22:15 Albuterol Sulfate (Proventil Neb) 2.5 mg QID PRN INH SOB/WHEEZING 06/02/20 22:15 Atorvastatin Calcium (Lipitor) 20 mg DAILY PO 06/03/20 09:00 06/14/20 09:17 Brexpiprazole (Rexulti) 1 mg DAILY PO 06/03/20 09:00 06/04/20 13:58 DC 06/04/20 09:03 Brexpiprazole (Rexulti) 2 mg DAILY PO 06/05/20 09:00 06/11/20 14:17 DC 06/11/20 08:35 Brexpiprazole (Rexulti) 3 mg DAILY PO 06/12/20 09:00 06/14/20 09:43 DC 06/14/20 09:17 Escitalopram Oxalate (Lexapro) 5 mg DAILY PO 06/15/20 09:00 Home Med (Med Rec Complete!) ASDIRECTED XX 06/02/20 21:00 06/02/20 21:08 DC Levothyroxine Sodium (Synthroid) 25 mcg DAILY@0600 PO 06/03/20 06:00 06/14/20 06:20 Magnesium Hydroxide (Milk Of Magnesia) 30 ml DAILYPRN PRN PO CONSTIPATION 06/02/20 22:15 Olanzapine (ZyPREXA ZYDIS) 5 mg Q6HP PRN PO ANXIETY/AGITATION 06/09/20 11:30 06/11/20 11:00 DC 06/09/20 11:34 Olanzapine (ZyPREXA ZYDIS) 10 mg QHS PO 06/14/20 21:00 Patient Own Medication (Patient'S Own Med) Clobazam 15mg TAKE BY MO... BID PO 06/03/20 09:00 06/03/20 00:52 DC Patient Own Medication (Pt Own Med *Controlled Subst*) Clobazam 10mg TABS TAKE ... BID PO 06/03/20 09:00 06/14/20 09:19 Prazosin HCl (Minipress) 1 mg QHS PO 06/11/20 21:00 06/13/20 20:46 Trazodone HCl (Desyrel) 50 mg QHSP PRN PO INSOMNIA 06/02/20 22:15 Vitamin D (Drisdol) 50,000 units Q14D@0900 PO 06/03/20 09:00 06/05/20 08:43 Zonisamide (Zonegran) 200 mg BID PO 06/02/20 21:00 06/14/20 09:18 Allergies Coded Allergies: Cephalosporins (Verified Allergy, Intermediate, HIVES, 03/28/20) cefaclor (Verified Allergy, Unknown, 07/12/19) lamotrigine (Verified Adverse Reaction, Severe, SJS, 07/12/19) CHANELLE DENNISON NP Jun 14, 2020 13:32
[2020-06-14] MEDS ORDERED: OLANZapine ORAL DISINTEGRATING TAB 5MG PO PRN (15:45)
[2020-06-14 18:00] VITALS: BP 120/58
[2020-06-14] MEDS ORDERED: OLANZapine ORAL DISINTEGRATING TAB 5MG PO SCH (21:00)
[2020-06-14] MEDS: PRAZOSIN 1 MG CAP PO SCH (21:03)
[2020-06-15] MEDS: LEVOTHYROXINE 25MCG TABLET (0.025MG) PO SCH (05:40)
[2020-06-15 06:00] VITALS: BP 103/52
[2020-06-15] MEDS: ATORVASTATIN 20 MG TAB PO SCH (08:37)
[2020-06-15] MEDS: ZONISAMIDE 100 MG CAP (ZONEGRAN) PO SCH ×2 (08:38→21:21)
[2020-06-15] MEDS: CLOBAZAM 10 MG PO SCH ×2 (08:39→21:29)
[2020-06-15] MEDS ORDERED: FLUoxetine 20 MG CAP PO SCH (09:00)
[2020-06-15] MEDS ORDERED: ESCITALOPRAM OXALATE 5MG TABLET (LEXAPRO) PO SCH (09:00)
--- NOTE | 2020-06-15 15:02 | MHIPN ---
[facility] PS[facility]IATRIC PROGRESS NOTE DATE: 06/12/20 HISTORY OF PRESENT ILLNESS: The patient today states that she continues to hear voices to hurt herself and hurt others. She had thoughts last night of cutting herself with a comb and called staff and gave the comb to staff and actually asked them to help her find any other possible things that she could hurt herself with. Today she tells me that she wants to go to another hospital because she feels that she wants to get more treatment/get better. She apparently has been told by her mother that she needs to go somewhere to get help. Apparently the mother had called and told staff about her being referred to a hospital in [place] to be transferred there. MENTAL STATUS EXAM: She is alert and oriented times 3. Eye contact is fairly good. She does have a speech impediment which makes it hard to understand her fully. She continues to say she is hearing voices telling her to harm herself and others. Again I am not too sure that these are actual hallucinations, but more her own thoughts, but I think in part due to her mental retardation it is difficult to fully assess it. She says her mood is "not good." Affect is flat. She is exhibiting poor insight and judgment. DIAGNOSES: 1. Unspecified psychotic disorder. 2. Intermittent explosive disorder. 3. Unspecified anxiety disorder. 4. Other specified compulsive and other related disorder. 5. Mild intellectual disability. TREATMENT PLAN: We will continue the patient on Rexulti 3 mg once daily and she takes prazosin 1 mg at bedtime for what she describes as nightmares.
[2020-06-15 16:09] VITALS: BP 109/58
--- NOTE | 2020-06-15 17:07 | MHIPNPDOC ---
[facility] Progress Note Progress Note Subjective: Shabnam is a 35 year old female with a history of Schizophrenia and Intellectual developmental disorder, mild type, multiple prior inpatient Psychiatric hospitalizations who was brought back to [facility] and hospitalized after endorsing experiencing command AH telling her to kill herself and her mother. Shabnam continues to be, for the most part, isolative on the unit. She does not readily engage in activities with other peers. Upon assessment, she appears internally preoccupied, responding to internal stimuli. She states that she feels really down and the voices have not gone away; Satan keeps telling me to kill my mother and the voice wont go away; Can I take a medication for that? Endorsing anergia, anhedonia, poor concentration, mood swings and racing thoughts. She has not engaged in any self-injurious behavior on the unit, has not been aggressive and currently denies any passive or active suicidal or homicidal ideation, intent or plan. Objective: She was seen and evaluated, alert and oriented times three, cognition is poor, intense eye contact, overweight, she appears younger than stated age, somewhat disheveled/unkempt, semi-cooperative with the assessment. Speech is decreased in production, slow in rate, soft in volume and a speech impediment is noted. Mood: not good, affect: constricted/depressed; TP are concrete, perseverative; TC: depressive themes present; she denies any current passive or active suicidal ideation, intent or plan; Continues to endorse HI towards her mother; Endorsing hearing the voice of Satan telling her to kill her mother. Denies VH/TH; she does appear internally preoccupied, responding to internal stimuli. I/IC/J are all poor. A/P: Shabnam is a 35 year old female with a history of Schizophrenia and Intellectual developmental disorder, mild type, multiple prior inpatient Psychiatric hospitalizations who was brought back to [facility] and hospitalized after endorsing experiencing command AH telling her to kill herself and her mother. 1) Today, due to long history of OCD sxs which have been documented and found to improve for her on Prozac, cross titrated and discontinued Lexapro 5 mg and started in lieu, Prozac 20 mg Q AM. Also today, increased Zyprexa to 15 mg qhs to help alleviate mood/psychotic symptoms. 2) Continue to coordinate care with Hospitalist to best optimize her medical comorbidities; namely, her seizure disorder and hypothyroidism. 3) Continue to encourage engagement and participation in community activities on the unit. 4) She was converted to [facility] legal status today given her current state and inability to care for herself; She likely will need to be transferred to an OPWDD supervised residence. Total time spent: 60 minutes Vital Signs Vital Signs Date Time Temp Pulse Resp B/P (MAP) Pulse Ox O2 Delivery O2 Flow Rate FiO2 06/15/20 16:09 98.9 96 16 109/58 (75) 97 Room Air Current Medications Current Medications Medications (Trade) Dose Ordered Sig/Jonathan Route PRN Reason Start Time Stop Time Status Last Admin Dose Admin Acetaminophen (Tylenol Tab) 650 mg Q6HP PRN PO HEADACHE or DISCOMFORT 06/02/20 22:15 Al Hydrox/Mg Hydrox/Simethicone (Mylanta) 30 ml Q4HP PRN PO HEARTBURN/INDIGESTION 06/02/20 22:15 Albuterol Sulfate (Proventil Neb) 2.5 mg QID PRN INH SOB/WHEEZING 06/02/20 22:15 Atorvastatin Calcium (Lipitor) 20 mg DAILY PO 06/03/20 09:00 06/15/20 08:37 Brexpiprazole (Rexulti) 1 mg DAILY PO 06/03/20 09:00 06/04/20 13:58 DC 06/04/20 09:03 Brexpiprazole (Rexulti) 2 mg DAILY PO 06/05/20 09:00 06/11/20 14:17 DC 06/11/20 08:35 Brexpiprazole (Rexulti) 3 mg DAILY PO 06/12/20 09:00 06/14/20 09:43 DC 06/14/20 09:17 Escitalopram Oxalate (Lexapro) 5 mg DAILY PO 06/15/20 09:00 06/15/20 08:37 Home Med (Med Rec Complete!) ASDIRECTED XX 06/02/20 21:00 06/02/20 21:08 DC Levothyroxine Sodium (Synthroid) 25 mcg DAILY@0600 PO 06/03/20 06:00 06/15/20 05:40 Magnesium Hydroxide (Milk Of Magnesia) 30 ml DAILYPRN PRN PO CONSTIPATION 06/02/20 22:15 Olanzapine (ZyPREXA ZYDIS) 5 mg Q6HP PRN PO ANXIETY/AGITATION 06/09/20 11:30 06/11/20 11:00 DC 06/09/20 11:34 Olanzapine (ZyPREXA ZYDIS) 5 mg Q6HP PRN PO ANXIETY/AGITATION 06/14/20 15:45 Olanzapine (ZyPREXA ZYDIS) 10 mg QHS PO 06/14/20 21:00 06/14/20 21:02 Patient Own Medication (Patient'S Own Med) Clobazam 15mg TAKE BY MO... BID PO 06/03/20 09:00 06/03/20 00:52 DC Patient Own Medication (Pt Own Med *Controlled Subst*) Clobazam 10mg TABS TAKE ... BID PO 06/03/20 09:00 06/15/20 08:39 Prazosin HCl (Minipress) 1 mg QHS PO 06/11/20 21:00 06/14/20 21:03 Trazodone HCl (Desyrel) 50 mg QHSP PRN PO INSOMNIA 06/02/20 22:15 Vitamin D (Drisdol) 50,000 units Q14D@0900 PO 06/03/20 09:00 06/05/20 08:43 Zonisamide (Zonegran) 200 mg BID PO 06/02/20 21:00 06/15/20 08:38 Allergies Coded Allergies: Cephalosporins (Verified Allergy, Intermediate, HIVES, 03/28/20) cefaclor (Verified Allergy, Unknown, 07/12/19) lamotrigine (Verified Adverse Reaction, Severe, SJS, 07/12/19) PRAFUL COLUNGA MD Jun 15, 2020 17:07
[2020-06-15] MEDS: OLANZapine 5 MG TAB PO SCH (21:21)
[2020-06-15] MEDS: PRAZOSIN 1 MG CAP PO SCH (21:22)
[2020-06-16] MEDS: LEVOTHYROXINE 25MCG TABLET (0.025MG) PO SCH (05:35)
[2020-06-16 06:36] VITALS: BP 122/58
[2020-06-16] MEDS: ATORVASTATIN 20 MG TAB PO SCH (09:31)
[2020-06-16] MEDS: ZONISAMIDE 100 MG CAP (ZONEGRAN) PO SCH ×2 (09:31→20:50)
[2020-06-16] MEDS: CLOBAZAM 10 MG PO SCH ×2 (09:31→21:36)
[2020-06-16] MEDS: FLUoxetine 20 MG CAP PO SCH (09:32)
[2020-06-16 16:38] VITALS: BP 131/74
[2020-06-16] MEDS: PRAZOSIN 1 MG CAP PO SCH (20:52)
[2020-06-16] MEDS: OLANZapine 5 MG TAB PO SCH (20:54)
[2020-06-17] MEDS: LEVOTHYROXINE 25MCG TABLET (0.025MG) PO SCH (05:38)
[2020-06-17 06:43] VITALS: BP 107/66
[2020-06-17] MEDS: CLOBAZAM 10 MG PO SCH ×2 (08:45→20:56)
[2020-06-17] MEDS: VITAMIN D 50,000 UNITS CAPSULE (ERGOCALCIFEROL 1.25MG) PO SCH (08:46)
[2020-06-17] MEDS: FLUoxetine 20 MG CAP PO SCH (08:46)
[2020-06-17] MEDS: ZONISAMIDE 100 MG CAP (ZONEGRAN) PO SCH ×2 (08:46→20:59)
[2020-06-17] MEDS: ATORVASTATIN 20 MG TAB PO SCH (08:46)
[2020-06-17 16:23] VITALS: BP 121/77
[2020-06-17] MEDS: OLANZapine 10 MG TAB PO SCH (20:56)
[2020-06-17] MEDS: PRAZOSIN 1 MG CAP PO SCH (20:59)
[2020-06-18] MEDS: LEVOTHYROXINE 25MCG TABLET (0.025MG) PO SCH (05:55)
[2020-06-18 06:48] VITALS: BP 121/60
[2020-06-18] MEDS: ATORVASTATIN 20 MG TAB PO SCH (08:37)
[2020-06-18] MEDS: ZONISAMIDE 100 MG CAP (ZONEGRAN) PO SCH ×2 (08:37→20:45)
[2020-06-18] MEDS: FLUoxetine 20 MG CAP PO SCH (08:37)
[2020-06-18] MEDS: CLOBAZAM 10 MG PO SCH ×2 (09:18→20:54)
--- NOTE | 2020-06-18 16:25 | MHIPNPDOC ---
[facility] Progress Note Progress Note DATE OF SERVICE: 06/18/20 Subjective: Shabnam is a 35 year old female with a history of Schizophrenia and Intellectual developmental disorder, mild type, multiple prior inpatient Psychiatric hospitalizations who was brought back to [facility] and hospitalized after endorsing experiencing command AH telling her to kill herself and her mother. The voices keep getting stronger and stronger! States that her mood is really bad and she is feeling extra cranky and pissed today. Endorsing initial and middle insomnia. Endorsing poor appetite, poor concentration and states that shes feeling more paranoid than yesterday. Objective: She was seen and evaluated, alert and oriented times three, cognition is poor, intense eye contact, overweight, she appears younger than stated age, somewhat disheveled/unkempt, semi-cooperative with the assessment. Speech is decreased in production, slow in rate, soft in volume and a speech impediment is noted. Mood: really bad, affect: depressed/irritable; TP are concrete, perseverative; TC: depressive themes present; she denies any current passive or active suicidal ideation, intent or plan; Continues to endorse HI towards her mother; Endorsing hearing the voice of Cyndee telling her to kill her mother. Denies VH/TH; she does appear internally preoccupied, responding to internal stimuli. I/IC/J are all poor. A/P: Shabnam is a 35 year old female with a history of Schizophrenia and Intellectual developmental disorder, mild type, multiple prior inpatient Psychiatric hospitalizations who was brought back to [facility] and hospitalized after endorsing experiencing command AH telling her to kill herself and her mother. 1) Increased Prozac to 40 mg Q AM to help alleviate depressive/OCD sxs. Also today, increased Zyprexa to 20 mg qhs to help alleviate mood/psychotic symptoms. 2) Continue to coordinate care with Hospitalist to best optimize her medical comorbidities; namely, her seizure disorder and hypothyroidism. 3) Continue to encourage engagement and participation in community activities on the unit. 4) She was converted to C legal status today given her current state and inability to care for herself; She likely will need to be transferred to an OPWDD supervised residence. Total time spent: 30 minutes Vital Signs Vital Signs Date Time Temp Pulse Resp B/P (MAP) Pulse Ox O2 Delivery O2 Flow Rate FiO2 06/18/20 06:48 98.9 72 18 121/60 (80) 95 Room Air Current Medications Current Medications Medications (Trade) Dose Ordered Sig/Jonathan Route PRN Reason Start Time Stop Time Status Last Admin Dose Admin Acetaminophen (Tylenol Tab) 650 mg Q6HP PRN PO HEADACHE or DISCOMFORT 06/02/20 22:15 Al Hydrox/Mg Hydrox/Simethicone (Mylanta) 30 ml Q4HP PRN PO HEARTBURN/INDIGESTION 06/02/20 22:15 Albuterol Sulfate (Proventil Neb) 2.5 mg QID PRN INH SOB/WHEEZING 06/02/20 22:15 Atorvastatin Calcium (Lipitor) 20 mg DAILY PO 06/03/20 09:00 06/18/20 08:37 Brexpiprazole (Rexulti) 1 mg DAILY PO 06/03/20 09:00 06/04/20 13:58 DC 06/04/20 09:03 Brexpiprazole (Rexulti) 2 mg DAILY PO 06/05/20 09:00 06/11/20 14:17 DC 06/11/20 08:35 Brexpiprazole (Rexulti) 3 mg DAILY PO 06/12/20 09:00 06/14/20 09:43 DC 06/14/20 09:17 Escitalopram Oxalate (Lexapro) 5 mg DAILY PO 06/15/20 09:00 06/15/20 16:45 DC 06/15/20 08:37 Fluoxetine HCl (PROzac) 20 mg DAILY PO 06/15/20 09:00 06/15/20 17:18 DC Fluoxetine HCl (PROzac) 20 mg DAILY PO 06/16/20 09:00 06/18/20 13:43 DC 06/18/20 08:37 Fluoxetine HCl (PROzac) 40 mg DAILY PO 06/19/20 09:00 Home Med (Med Rec Complete!) ASDIRECTED XX 06/02/20 21:00 06/02/20 21:08 DC Levothyroxine Sodium (Synthroid) 25 mcg DAILY@0600 PO 06/03/20 06:00 06/18/20 05:55 Magnesium Hydroxide (Milk Of Magnesia) 30 ml DAILYPRN PRN PO CONSTIPATION 06/02/20 22:15 Miscellaneous (Unresolved Clarification Entry) SEE LABEL COMMENTS DAILY XX 06/16/20 09:00 06/16/20 17:18 DC Olanzapine (ZyPREXA ZYDIS) 5 mg Q6HP PRN PO ANXIETY/AGITATION 06/09/20 11:30 06/11/20 11:00 DC 06/09/20 11:34 Olanzapine (ZyPREXA ZYDIS) 5 mg Q6HP PRN PO ANXIETY/AGITATION 06/14/20 15:45 Olanzapine (ZyPREXA ZYDIS) 10 mg QHS PO 06/14/20 21:00 06/15/20 16:45 DC 06/14/20 21:02 Olanzapine (ZyPREXA) 15 mg QHS PO 06/15/20 21:00 06/17/20 12:14 DC 06/16/20 20:54 Olanzapine (ZyPREXA) 20 mg QHS PO 06/17/20 21:00 06/17/20 20:56 Patient Own Medication (Patient'S Own Med) Clobazam 15mg TAKE BY MO... BID PO 06/03/20 09:00 06/03/20 00:52 DC Patient Own Medication (Pt Own Med *Controlled Subst*) Clobazam 10mg TABS TAKE ... BID PO 06/03/20 09:00 06/18/20 09:18 Prazosin HCl (Minipress) 1 mg QHS PO 06/11/20 21:00 06/17/20 20:59 Trazodone HCl (Desyrel) 50 mg QHSP PRN PO INSOMNIA 06/02/20 22:15 Vitamin D (Drisdol) 50,000 units Q14D@0900 PO 06/03/20 09:00 06/17/20 08:46 Zonisamide (Zonegran) 200 mg BID PO 06/02/20 21:00 06/18/20 08:37 Allergies Coded Allergies: Cephalosporins (Verified Allergy, Intermediate, HIVES, 03/28/20) cefaclor (Verified Allergy, Unknown, 07/12/19) lamotrigine (Verified Adverse Reaction, Severe, SJS, 07/12/19) PRAFUL COLUNGA MD Jun 18, 2020 16:25
[2020-06-18 18:06] VITALS: BP 130/74
[2020-06-18] MEDS: OLANZapine 10 MG TAB PO SCH (20:45)
[2020-06-18] MEDS: PRAZOSIN 1 MG CAP PO SCH (20:46)
[2020-06-19] MEDS: LEVOTHYROXINE 25MCG TABLET (0.025MG) PO SCH (05:47)
[2020-06-19 06:00] VITALS: BP 113/69
[2020-06-19] MEDS: FLUoxetine 20 MG CAP PO SCH (08:39)
[2020-06-19] MEDS: ATORVASTATIN 20 MG TAB PO SCH (08:39)
[2020-06-19] MEDS: ZONISAMIDE 100 MG CAP (ZONEGRAN) PO SCH ×2 (08:39→20:57)
[2020-06-19] MEDS: CLOBAZAM 10 MG PO SCH ×2 (08:43→20:56)
[2020-06-19 17:50] VITALS: BP 136/74
[2020-06-19] MEDS: OLANZapine 10 MG TAB PO SCH (20:57)
[2020-06-19] MEDS: PRAZOSIN 1 MG CAP PO SCH (20:57)
[2020-06-20] MEDS: LEVOTHYROXINE 25MCG TABLET (0.025MG) PO SCH (05:46)
[2020-06-20 05:59] VITALS: BP 119/64
[2020-06-20] MEDS: ATORVASTATIN 20 MG TAB PO SCH (08:34)
[2020-06-20] MEDS: FLUoxetine 20 MG CAP PO SCH (08:34)
[2020-06-20] MEDS: CLOBAZAM 10 MG PO SCH ×2 (08:36→20:21)
[2020-06-20] MEDS: ZONISAMIDE 100 MG CAP (ZONEGRAN) PO SCH ×2 (08:45→20:21)
--- NOTE | 2020-06-20 16:22 | MHIPNPDOC ---
[facility] Progress Note Progress Note Late entry for 06/19/20 Subjective: Shabnam is a 35 year old female with a history of Schizophrenia and Intellectual developmental disorder, mild type, multiple prior inpatient Psychiatric hospitalizations who was brought back to [facility] and hospitalized after endorsing experiencing command AH telling her to kill herself and her mother. Today, primarily isolative to her room, stating that she feels dark and bad and wants to be alone. She is not engaging with staff and peers; she has minimal interaction with group programming on the unit. Appetite is fair; endorsing depressed mood, hypersomnolence during the day with initial and middle insomnia at night. Objective: She was seen and evaluated, alert and oriented times three, cognition is poor, intense eye contact, overweight, she appears younger than stated age, somewhat disheveled/unkempt, semi-cooperative with the assessment. Speech is decreased in production, slow in rate, soft in volume and a speech impediment is noted. Mood: not good, affect: constricted, decreased intensity and range; TP are concrete, perseverative; TC: depressive themes present; she denies any current passive or active suicidal or homicidal ideation, intent or plan; Endorsing AH which are non-command; (Voices that are taunting her) Denies VH/TH; she does appear internally preoccupied, responding to internal stimuli. I/IC/J are all poor. A/P: Shabnam is a 35 year old female with a history of Schizophrenia and Intellectual developmental disorder, mild type, multiple prior inpatient Psych iatric hospitalizations who was brought back to [facility] and hospitalized after endorsing experiencing command AH telling her to kill herself and her mother. 1) Continued Prozac at 40 mg Q AM to help alleviate depressive/OCD sxs. Also today, continued Zyprexa at 20 mg qhs to help alleviate mood/psychotic symptoms. 2) Continue to coordinate care with Hospitalist to best optimize her medical comorbidities; namely, her seizure disorder and hypothyroidism. 3) Continue to encourage engagement and participation in community activities on the unit. 4) She is now on 2PC legal status, given her current state and inability to care for herself; She likely will need to be transferred to an OPWDD supervised residence, upon her clinical stabilization. Total time spent: 30 minutes Vital Signs Vital Signs Date Time Temp Pulse Resp B/P (MAP) Pulse Ox O2 Delivery O2 Flow Rate FiO2 06/20/20 05:59 97.5 74 16 119/64 (82) 98 Room Air Current Medications Current Medications Medications (Trade) Dose Ordered Sig/Jonathan Route PRN Reason Start Time Stop Time Status Last Admin Dose Admin Acetaminophen (Tylenol Tab) 650 mg Q6HP PRN PO HEADACHE or DISCOMFORT 06/02/20 22:15 Al Hydrox/Mg Hydrox/Simethicone (Mylanta) 30 ml Q4HP PRN PO HEARTBURN/INDIGESTION 06/02/20 22:15 Albuterol Sulfate (Proventil Neb) 2.5 mg QID PRN INH SOB/WHEEZING 06/02/20 22:15 Atorvastatin Calcium (Lipitor) 20 mg DAILY PO 06/03/20 09:00 06/20/20 08:34 Brexpiprazole (Rexulti) 1 mg DAILY PO 06/03/20 09:00 06/04/20 13:58 DC 06/04/20 09:03 Brexpiprazole (Rexulti) 2 mg DAILY PO 06/05/20 09:00 06/11/20 14:17 DC 06/11/20 08:35 Brexpiprazole (Rexulti) 3 mg DAILY PO 06/12/20 09:00 06/14/20 09:43 DC 06/14/20 09:17 Escitalopram Oxalate (Lexapro) 5 mg DAILY PO 06/15/20 09:00 06/15/20 16:45 DC 06/15/20 08:37 Fluoxetine HCl (PROzac) 20 mg DAILY PO 06/15/20 09:00 06/15/20 17:18 DC Fluoxetine HCl (PROzac) 20 mg DAILY PO 06/16/20 09:00 06/18/20 13:43 DC 06/18/20 08:37 Fluoxetine HCl (PROzac) 40 mg DAILY PO 06/19/20 09:00 06/20/20 08:34 Home Med (Med Rec Complete!) ASDIRECTED XX 06/02/20 21:00 06/02/20 21:08 DC Levothyroxine Sodium (Synthroid) 25 mcg DAILY@0600 PO 06/03/20 06:00 06/20/20 05:46 Magnesium Hydroxide (Milk Of Magnesia) 30 ml DAILYPRN PRN PO CONSTIPATION 06/02/20 22:15 Miscellaneous (Unresolved Clarification Entry) SEE LABEL COMMENTS DAILY XX 06/16/20 09:00 06/16/20 17:18 DC Olanzapine (ZyPREXA ZYDIS) 5 mg Q6HP PRN PO ANXIETY/AGITATION 06/09/20 11:30 06/11/20 11:00 DC 06/09/20 11:34 Olanzapine (ZyPREXA ZYDIS) 5 mg Q6HP PRN PO ANXIETY/AGITATION 06/14/20 15:45 Olanzapine (ZyPREXA ZYDIS) 10 mg QHS PO 06/14/20 21:00 06/15/20 16:45 DC 06/14/20 21:02 Olanzapine (ZyPREXA) 15 mg QHS PO 06/15/20 21:00 06/17/20 12:14 DC 06/16/20 20:54 Olanzapine (ZyPREXA) 20 mg QHS PO 06/17/20 21:00 06/19/20 20:57 Patient Own Medication (Patient'S Own Med) Clobazam 15mg TAKE BY MO... BID PO 06/03/20 09:00 06/03/20 00:52 DC Patient Own Medication (Pt Own Med *Controlled Subst*) Clobazam 10mg TABS TAKE ... BID PO 06/03/20 09:00 06/20/20 08:36 Prazosin HCl (Minipress) 1 mg QHS PO 06/11/20 21:00 06/19/20 20:57 Trazodone HCl (Desyrel) 50 mg QHSP PRN PO INSOMNIA 06/02/20 22:15 Vitamin D (Drisdol) 50,000 units Q14D@0900 PO 06/03/20 09:00 06/17/20 08:46 Zonisamide (Zonegran) 200 mg BID PO 06/02/20 21:00 06/20/20 08:45 Allergies Coded Allergies: Cephalosporins (Verified Allergy, Intermediate, HIVES, 03/28/20) cefaclor (Verified Allergy, Unknown, 07/12/19) lamotrigine (Verified Adverse Reaction, Severe, SJS, 07/12/19) PRAFUL COULNGA MD Jun 20, 2020 16:22
[2020-06-20 17:45] VITALS: BP 114/71
[2020-06-20] MEDS: OLANZapine 10 MG TAB PO SCH (20:21)
[2020-06-20] MEDS: PRAZOSIN 1 MG CAP PO SCH (20:21)
[2020-06-21] MEDS: LEVOTHYROXINE 25MCG TABLET (0.025MG) PO SCH (05:57)
[2020-06-21 06:36] VITALS: BP 109/54
[2020-06-21] MEDS: CLOBAZAM 10 MG PO SCH (08:46)
[2020-06-21] MEDS: ZONISAMIDE 100 MG CAP (ZONEGRAN) PO SCH ×2 (08:47→20:19)
[2020-06-21] MEDS: FLUoxetine 20 MG CAP PO SCH (08:47)
[2020-06-21] MEDS: ATORVASTATIN 20 MG TAB PO SCH (08:47)
--- NOTE | 2020-06-21 12:15 | MHIPNPDOC ---
[facility] Progress Note Progress Note Late entry for 06/20/20 Subjective: Shabnam is a 35 year old female with a history of Schizophrenia and Intellectual developmental disorder, mild type, multiple prior inpatient Psychiatric hospitalizations who was brought back to [facility] and hospitalized after endorsing experiencing command AH telling her to kill herself and her mother. States that she slept better overnight but still endorsing some initial and middle insomnia. Endorsing depressed mood with feelings of hopelessness and doom. Rates her mood today as a 3/10. Im not ready to leave yet; I feel like crap. Objective: She was seen and evaluated, alert and oriented times three, cognition is poor, intense eye contact, overweight, she appears younger than stated age, somewhat disheveled/unkempt, semi-cooperative with the assessment. Speech is decreased in production, slow in rate, soft in volume and a speech impediment is noted. Mood: bad, affect: constricted/irritable, decreased intensity and range; TP are concrete, perseverative; TC: depressive themes present; she denies any current passive or active suicidal or homicidal ideation, intent or plan; Endorsing AH which are non-command; (Voices that are taunting her) Denies VH/TH; she does appear internally preoccupied, responding to internal stimuli. I/IC/J are all poor. A/P: Shabnam is a 35 year old female with a history of Schizophrenia and Intellectual developmental disorder, mild type, multiple prior inpatient Psychiatric hospitalizations who was brought back to [facility] and hospitalized after endorsing experiencing command AH telling her to kill herself and her mother. 1) Continued Prozac at 40 mg Q AM to help alleviate depressive/OCD sxs. Also today, continued Zyprexa at 20 mg qhs to help alleviate mood/psychotic symptoms. Will titrate Zyprexa to 30 mg on Thursday. 2) Continue to coordinate care with Hospitalist to best optimize her medical comorbidities; namely, her seizure disorder and hypothyroidism. 3) Continue to encourage engagement and participation in community activities on the unit. 4) She is now on C legal status, given her current state and inability to care for herself; She likely will need to be transferred to an OPWDD supervised residence, upon her clinical stabilization. Total time spent: 30 minutes Vital Signs Vital Signs Date Time Temp Pulse Resp B/P (MAP) Pulse Ox O2 Delivery O2 Flow Rate FiO2 06/21/20 06:36 98.0 68 14 109/54 (72) 96 Room Air Current Medications Current Medications Medications (Trade) Dose Ordered Sig/Jonathan Route PRN Reason Start Time Stop Time Status Last Admin Dose Admin Acetaminophen (Tylenol Tab) 650 mg Q6HP PRN PO HEADACHE or DISCOMFORT 06/02/20 22:15 Al Hydrox/Mg Hydrox/Simethicone (Mylanta) 30 ml Q4HP PRN PO HEARTBURN/INDIGESTION 06/02/20 22:15 Albuterol Sulfate (Proventil Neb) 2.5 mg QID PRN INH SOB/WHEEZING 06/02/20 22:15 Atorvastatin Calcium (Lipitor) 20 mg DAILY PO 06/03/20 09:00 06/21/20 08:47 Brexpiprazole (Rexulti) 1 mg DAILY PO 06/03/20 09:00 06/04/20 13:58 DC 06/04/20 09:03 Brexpiprazole (Rexulti) 2 mg DAILY PO 06/05/20 09:00 06/11/20 14:17 DC 06/11/20 08:35 Brexpiprazole (Rexulti) 3 mg DAILY PO 06/12/20 09:00 06/14/20 09:43 DC 06/14/20 09:17 Escitalopram Oxalate (Lexapro) 5 mg DAILY PO 06/15/20 09:00 06/15/20 16:45 DC 06/15/20 08:37 Fluoxetine HCl (PROzac) 20 mg DAILY PO 06/15/20 09:00 06/15/20 17:18 DC Fluoxetine HCl (PROzac) 20 mg DAILY PO 06/16/20 09:00 06/18/20 13:43 DC 06/18/20 08:37 Fluoxetine HCl (PROzac) 40 mg DAILY PO 06/19/20 09:00 06/21/20 08:47 Home Med (Med Rec Complete!) ASDIRECTED XX 06/02/20 21:00 06/02/20 21:08 DC Levothyroxine Sodium (Synthroid) 25 mcg DAILY@0600 PO 06/03/20 06:00 06/21/20 05:57 Magnesium Hydroxide (Milk Of Magnesia) 30 ml DAILYPRN PRN PO CONSTIPATION 06/02/20 22:15 Miscellaneous (Unresolved Clarification Entry) SEE LABEL COMMENTS DAILY XX 06/16/20 09:00 06/16/20 17:18 DC Olanzapine (ZyPREXA ZYDIS) 5 mg Q6HP PRN PO ANXIETY/AGITATION 06/09/20 11:30 06/11/20 11:00 DC 06/09/20 11:34 Olanzapine (ZyPREXA ZYDIS) 5 mg Q6HP PRN PO ANXIETY/AGITATION 06/14/20 15:45 Olanzapine (ZyPREXA ZYDIS) 10 mg QHS PO 06/14/20 21:00 06/15/20 16:45 DC 06/14/20 21:02 Olanzapine (ZyPREXA) 15 mg QHS PO 06/15/20 21:00 06/17/20 12:14 DC 06/16/20 20:54 Olanzapine (ZyPREXA) 20 mg QHS PO 06/17/20 21:00 06/20/20 20:21 Patient Own Medication (Patient'S Own Med) Clobazam 15mg TAKE BY MO... BID PO 06/03/20 09:00 06/03/20 00:52 DC Patient Own Medication (Pt Own Med *Controlled Subst*) Clobazam 10mg TABS TAKE ... BID PO 06/03/20 09:00 06/21/20 08:46 Prazosin HCl (Minipress) 1 mg QHS PO 06/11/20 21:00 06/20/20 20:21 Trazodone HCl (Desyrel) 50 mg QHSP PRN PO INSOMNIA 06/02/20 22:15 Vitamin D (Drisdol) 50,000 units Q14D@0900 PO 06/03/20 09:00 06/17/20 08:46 Zonisamide (Zonegran) 200 mg BID PO 06/02/20 21:00 06/21/20 08:47 Allergies Coded Allergies: Cephalosporins (Verified Allergy, Intermediate, HIVES, 03/28/20) cefaclor (Verified Allergy, Unknown, 07/12/19) lamotrigine (Verified Adverse Reaction, Severe, SJS, 07/12/19) PRAFUL COLUNGA MD Jun 21, 2020 12:15
--- NOTE | 2020-06-21 14:05 | MHIPNPDOC ---
[facility] Progress Note Progress Note Subjective: Shabnam is a 35 year old female with a history of Schizophrenia and Intellectual developmental disorder, mild type, multiple prior inpatient Psychiatric hospitalizations who was brought back to [facility] and hospitalized after endorsing experiencing command AH telling her to kill herself and her mother. I feel a little better; I think the Prozac is starting to work. States that she still had some initial and middle insomnia but it did improve. Endorsing non-command AH which are worse in the morning. Endorsing paranoid ideation but states that she is starting to feel better and more comfortable. Objective: She was seen and evaluated, alert and oriented times three, cognition is poor, intense eye contact, overweight, she appears younger than stated age, somewhat disheveled/unkempt, semi-cooperative with the assessment. Speech is decreased in production, slow in rate, soft in volume and a speech impediment is noted. Mood: ok, affect: constricted/irritable, decreased intensity and range; TP are concrete, perseverative; TC: depressive themes present; she denies any current passive or active suicidal or homicidal ideation, intent or plan; Endorsing AH which are non-command; (Voices that are taunting her) Denies VH/TH; she does appear internally preoccupied, responding to internal stimuli. I/IC/J are all poor. A/P: Shabnam is a 35 year old female with a history of Schizophrenia and Intellectual developmental disorder, mild type, multiple prior inpatient Psychiatric hospitalizations who was brought back to [facility] and hospitalized after endorsing experiencing command AH telling her to kill herself and her mother. 1) Increased Prozac to 60 mg Q AM to help alleviate depressive/OCD sxs. Also today, continued Zyprexa at 20 mg qhs to help alleviate mood/psychotic symptoms. Will titrate Zyprexa to 30 mg on Thursday. 2) Continue to coordinate care with Hospitalist to best optimize her medical comorbidities; namely, her seizure disorder and hypothyroidism. 3) Continue to encourage engagement and participation in community activities on the unit. 4) She is now on C legal status, given her current state and inability to care for herself; She likely will need to be transferred to an OPWDD supervised residence, upon her clinical stabilization. Total time spent: 30 minutes Vital Signs Vital Signs Date Time Temp Pulse Resp B/P (MAP) Pulse Ox O2 Delivery O2 Flow Rate FiO2 06/21/20 06:36 98.0 68 14 109/54 (72) 96 Room Air Current Medications Current Medications Medications (Trade) Dose Ordered Sig/Jonathan Route PRN Reason Start Time Stop Time Status Last Admin Dose Admin Acetaminophen (Tylenol Tab) 650 mg Q6HP PRN PO HEADACHE or DISCOMFORT 06/02/20 22:15 Al Hydrox/Mg Hydrox/Simethicone (Mylanta) 30 ml Q4HP PRN PO HEARTBURN/INDIGESTION 06/02/20 22:15 Albuterol Sulfate (Proventil Neb) 2.5 mg QID PRN INH SOB/WHEEZING 06/02/20 22:15 Atorvastatin Calcium (Lipitor) 20 mg DAILY PO 06/03/20 09:00 06/21/20 08:47 Brexpiprazole (Rexulti) 1 mg DAILY PO 06/03/20 09:00 06/04/20 13:58 DC 06/04/20 09:03 Brexpiprazole (Rexulti) 2 mg DAILY PO 06/05/20 09:00 06/11/20 14:17 DC 06/11/20 08:35 Brexpiprazole (Rexulti) 3 mg DAILY PO 06/12/20 09:00 06/14/20 09:43 DC 06/14/20 09:17 Clobazam (Onfi) 15 mg BID PO 06/21/20 21:00 Escitalopram Oxalate (Lexapro) 5 mg DAILY PO 06/15/20 09:00 06/15/20 16:45 DC 06/15/20 08:37 Fluoxetine HCl (PROzac) 20 mg DAILY PO 06/15/20 09:00 06/15/20 17:18 DC Fluoxetine HCl (PROzac) 20 mg DAILY PO 06/16/20 09:00 06/18/20 13:43 DC 06/18/20 08:37 Fluoxetine HCl (PROzac) 40 mg DAILY PO 06/19/20 09:00 06/21/20 08:47 Home Med (Med Rec Complete!) ASDIRECTED XX 06/02/20 21:00 06/02/20 21:08 DC Levothyroxine Sodium (Synthroid) 25 mcg DAILY@0600 PO 06/03/20 06:00 06/21/20 05:57 Magnesium Hydroxide (Milk Of Magnesia) 30 ml DAILYPRN PRN PO CONSTIPATION 06/02/20 22:15 Miscellaneous (Unresolved Clarification Entry) SEE LABEL COMMENTS DAILY XX 06/16/20 09:00 06/16/20 17:18 DC Olanzapine (ZyPREXA ZYDIS) 5 mg Q6HP PRN PO ANXIETY/AGITATION 06/09/20 11:30 06/11/20 11:00 DC 06/09/20 11:34 Olanzapine (ZyPREXA ZYDIS) 5 mg Q6HP PRN PO ANXIETY/AGITATION 06/14/20 15:45 Olanzapine (ZyPREXA ZYDIS) 10 mg QHS PO 06/14/20 21:00 06/15/20 16:45 DC 06/14/20 21:02 Olanzapine (ZyPREXA) 15 mg QHS PO 06/15/20 21:00 06/17/20 12:14 DC 06/16/20 20:54 Olanzapine (ZyPREXA) 20 mg QHS PO 06/17/20 21:00 06/20/20 20:21 Patient Own Medication (Patient'S Own Med) Clobazam 15mg TAKE BY MO... BID PO 06/03/20 09:00 06/03/20 00:52 DC Patient Own Medication (Pt Own Med *Controlled Subst*) Clobazam 10mg TABS TAKE ... BID PO 06/03/20 09:00 06/21/20 13:07 DC 06/21/20 08:46 Prazosin HCl (Minipress) 1 mg QHS PO 06/11/20 21:00 06/20/20 20:21 Trazodone HCl (Desyrel) 50 mg QHSP PRN PO INSOMNIA 06/02/20 22:15 Vitamin D (Drisdol) 50,000 units Q14D@0900 PO 06/03/20 09:00 06/17/20 08:46 Zonisamide (Zonegran) 200 mg BID PO 06/02/20 21:00 06/21/20 08:47 Allergies Coded Allergies: Cephalosporins (Verified Allergy, Intermediate, HIVES, 03/28/20) cefaclor (Verified Allergy, Unknown, 07/12/19) lamotrigine (Verified Adverse Reaction, Severe, SJS, 2/18/20) PRAFUL COLUNGA MD Jun 21, 2020 14:04
[2020-06-21 16:22] VITALS: BP 115/67
[2020-06-21] MEDS: OLANZapine 10 MG TAB PO SCH (20:18)
[2020-06-21] MEDS: PRAZOSIN 1 MG CAP PO SCH (20:19)
[2020-06-22] MEDS: LEVOTHYROXINE 25MCG TABLET (0.025MG) PO SCH (05:45)
[2020-06-22 06:23] VITALS: BP 120/56
[2020-06-22] MEDS: ZONISAMIDE 100 MG CAP (ZONEGRAN) PO SCH ×2 (08:37→21:56)
[2020-06-22] MEDS: ATORVASTATIN 20 MG TAB PO SCH (08:38)
[2020-06-22] MEDS: FLUoxetine 20 MG CAP PO SCH (08:38)
[2020-06-22 19:32] VITALS: BP 118/75
[2020-06-22] MEDS: OLANZapine 10 MG TAB PO SCH (20:45)
[2020-06-22] MEDS: PRAZOSIN 1 MG CAP PO SCH (20:46)
[2020-06-23] MEDS: LEVOTHYROXINE 25MCG TABLET (0.025MG) PO SCH (06:02)
[2020-06-23 06:46] VITALS: BP 100/50
[2020-06-23] MEDS: ATORVASTATIN 20 MG TAB PO SCH (08:44)
[2020-06-23] MEDS: FLUoxetine 20 MG CAP PO SCH (08:44)
[2020-06-23] MEDS: ZONISAMIDE 100 MG CAP (ZONEGRAN) PO SCH ×2 (08:44→20:14)
[2020-06-23 18:13] VITALS: BP 136/90
[2020-06-23] MEDS: OLANZapine 10 MG TAB PO SCH (20:13)
[2020-06-23] MEDS: PRAZOSIN 1 MG CAP PO SCH (20:13)
[2020-06-24 06:19] VITALS: BP 119/65
[2020-06-24] MEDS: LEVOTHYROXINE 25MCG TABLET (0.025MG) PO SCH (06:29)
[2020-06-24] MEDS: ZONISAMIDE 100 MG CAP (ZONEGRAN) PO SCH ×2 (08:31→20:24)
[2020-06-24] MEDS: ATORVASTATIN 20 MG TAB PO SCH (08:32)
[2020-06-24] MEDS: FLUoxetine 20 MG CAP PO SCH (08:32)
[2020-06-24] MEDS: OLANZapine 10 MG TAB PO SCH (20:24)
[2020-06-24] MEDS: PRAZOSIN 1 MG CAP PO SCH (20:25)
[2020-06-25] MEDS: LEVOTHYROXINE 25MCG TABLET (0.025MG) PO SCH (05:53)
[2020-06-25 06:54] VITALS: BP 110/74
[2020-06-25] MEDS: PILL CUTTER 1 EACH XX PRN (08:21)
[2020-06-25] MEDS: FLUoxetine 20 MG CAP PO SCH (08:22)
[2020-06-25] MEDS: ZONISAMIDE 100 MG CAP (ZONEGRAN) PO SCH ×2 (08:22→20:22)
[2020-06-25] MEDS: ATORVASTATIN 20 MG TAB PO SCH (08:23)
[2020-06-25 16:05] VITALS: BP 114/59
[2020-06-25] MEDS: PRAZOSIN 1 MG CAP PO SCH (20:22)
[2020-06-25] MEDS: OLANZapine 10 MG TAB PO SCH (20:22)
[2020-06-26] MEDS: LEVOTHYROXINE 25MCG TABLET (0.025MG) PO SCH (05:50)
[2020-06-26 06:18] VITALS: BP 121/55
[2020-06-26] MEDS: FLUoxetine 20 MG CAP PO SCH (08:27)
[2020-06-26] MEDS: ATORVASTATIN 20 MG TAB PO SCH (08:27)
[2020-06-26] MEDS: ZONISAMIDE 100 MG CAP (ZONEGRAN) PO SCH ×2 (08:27→20:29)
[2020-06-26] MEDS: PILL CUTTER 1 EACH XX PRN (08:28)
[2020-06-26 16:19] VITALS: BP 106/58
[2020-06-26] MEDS: OLANZapine 10 MG TAB PO SCH (20:29)
[2020-06-26] MEDS: PRAZOSIN 1 MG CAP PO SCH (20:29)
[2020-06-27] MEDS: LEVOTHYROXINE 25MCG TABLET (0.025MG) PO SCH (06:27)
[2020-06-27 06:30] VITALS: BP 127/83
[2020-06-27] MEDS: ATORVASTATIN 20 MG TAB PO SCH (08:36)
[2020-06-27] MEDS: ZONISAMIDE 100 MG CAP (ZONEGRAN) PO SCH ×2 (08:36→20:28)
[2020-06-27] MEDS: FLUoxetine 20 MG CAP PO SCH (08:36)
--- NOTE | 2020-06-27 13:53 | MHIPNPDOC ---
[facility] Progress Note Progress Note DATE OF SERVICE: 06/27/20 HISTORY: This is one of multiple admissions for this 35-year-old woman who was admitted because of "a voice inside my head is telling me to kill myself." She states that she is having thoughts of cutting her wrists for the past day. She is afraid she is going to end up killing herself. The patient also stated the voices are telling her to kill her mother and her niece. Of note, the patient had a recent psychiatric hospitalization at [facility] from 03/28/2020 to 04/30/2020, diagnosed with schizophrenia and intellectual disability moderate and she was discharged on Rexulti 0.5 mg daily. She presented with the same, actually at that time it was just homicidal thoughts against her mother, stating that she was afraid that she would hurt her mother. VITAL SIGNS: See below. CURRENT MEDICATIONS: See below. MENTAL STATUS EXAMINATION: Patient is a 35-year-old Single, Disabled (Intellectually Disabled) Domiciled Female, who is admitted to [facility] for auditory command hallucinations telling her to kill herself. In today's interview, patient is seen in her room and she is agreeable to the interview. She is dressed appropriately, appears her stated age. Her hygiene and grooming is unkempt and disheveled. She is not observed with restlessness or psychomotor agitation. Eye contact is minimal. Speech: low tone, volume and slow rate Language skills are limited due to intellectual disability Thought processes including: linear, but limited due to intellectual disability Thought content: denies depression and anxiety, denies suicidal or homicidal thoughts Abstract reasoning, and computation: limited Description of associations: denies suicidal and homicidal thoughts, reports mild AH/VH Description of abnormal or psychotic thoughts: reports none Judgment: limited Insight: limited Orientation: alert and oriented to person, place, time and situation Recent and remote memory: fair Attention span and concentration: poor Language: fair Fund of knowledge: below average Mood: observed to be depressed Affect: flat/congruent DIAGNOSES: Schizophrenia Intermittent explosive disorder. Other specified anxiety disorder. Other specified compulsive and related disorder. Intellectual developmental disorder, mild type, ASSESSMENT: Patient states that she is not depressed or having suicidal or homicidal thinking. She reports a decrease in AH/VH and when asked about discharge. She became mildly tearful and stated "Not ready yet." When asked about this she reported that she does not feel that she could return home yet, but could not elaborate on it. Patient has a long history of homicidal threats to her mother, including physical harm. Mother is very engaged in her treatment and we will collaborate with mother for safe discharge planning. At this time, patient reports that she is not ready, but due to intellectual developmental disorder cannot explain why she feels that she is unsafe at this time. Patient has not been outside of her room, not attending groups, minimal participation in the milieu, not attending to ADLS. MANAGEMENT PLAN: Continue all medications, Per last provider, increase Zyprexa to 30 mg at HS. we will discharge when she is stable TIME SPENT: 25 minutes. Vital Signs Vital Signs Date Time Temp Pulse Resp B/P (MAP) Pulse Ox O2 Delivery O2 Flow Rate FiO2 06/27/20 10:21 Room Air 06/27/20 06:30 98.6 70 12 127/83 (98) 95 Current Medications Current Medications Medications (Trade) Dose Ordered Sig/Jonathan Route PRN Reason Start Time Stop Time Status Last Admin Dose Admin Acetaminophen (Tylenol Tab) 650 mg Q6HP PRN PO HEADACHE or DISCOMFORT 06/02/20 22:15 Al Hydrox/Mg Hydrox/Simethicone (Mylanta) 30 ml Q4HP PRN PO HEARTBURN/INDIGESTION 06/02/20 22:15 Albuterol Sulfate (Proventil Neb) 2.5 mg QID PRN INH SOB/WHEEZING 06/02/20 22:15 Atorvastatin Calcium (Lipitor) 20 mg DAILY PO 06/03/20 09:00 06/27/20 08:36 Brexpiprazole (Rexulti) 1 mg DAILY PO 06/03/20 09:00 06/04/20 13:58 DC 06/04/20 09:03 Brexpiprazole (Rexulti) 2 mg DAILY PO 06/05/20 09:00 06/11/20 14:17 DC 06/11/20 08:35 Brexpiprazole (Rexulti) 3 mg DAILY PO 06/12/20 09:00 06/14/20 09:43 DC 06/14/20 09:17 Clobazam (Onfi) 15 mg BID PO 06/21/20 21:00 06/27/20 08:36 Escitalopram Oxalate (Lexapro) 5 mg DAILY PO 06/15/20 09:00 06/15/20 16:45 DC 06/15/20 08:37 Fluoxetine HCl (PROzac) 20 mg DAILY PO 06/15/20 09:00 06/15/20 17:18 DC Fluoxetine HCl (PROzac) 20 mg DAILY PO 06/16/20 09:00 06/18/20 13:43 DC 06/18/20 08:37 Fluoxetine HCl (PROzac) 40 mg DAILY PO 06/19/20 09:00 06/21/20 14:00 DC 06/21/20 08:47 Fluoxetine HCl (PROzac) 60 mg DAILY PO 06/22/20 09:00 06/27/20 08:36 Home Med (Med Rec Complete!) ASDIRECTED XX 06/02/20 21:00 06/02/20 21:08 DC Levothyroxine Sodium (Synthroid) 25 mcg DAILY@0600 PO 06/03/20 06:00 06/27/20 06:27 Magnesium Hydroxide (Milk Of Magnesia) 30 ml DAILYPRN PRN PO CONSTIPATION 06/02/20 22:15 Miscellaneous (Unresolved Clarification Entry) SEE LABEL COMMENTS DAILY XX 06/16/20 09:00 06/16/20 17:18 DC Olanzapine (ZyPREXA ZYDIS) 5 mg Q6HP PRN PO ANXIETY/AGITATION 06/09/20 11:30 06/11/20 11:00 DC 06/09/20 11:34 Olanzapine (ZyPREXA ZYDIS) 5 mg Q6HP PRN PO ANXIETY/AGITATION 06/14/20 15:45 Olanzapine (ZyPREXA ZYDIS) 10 mg QHS PO 06/14/20 21:00 06/15/20 16:45 DC 06/14/20 21:02 Olanzapine (ZyPREXA) 15 mg QHS PO 06/15/20 21:00 06/17/20 12:14 DC 06/16/20 20:54 Olanzapine (ZyPREXA) 20 mg QHS PO 06/17/20 21:00 06/26/20 20:29 Patient Own Medication (Patient'S Own Med) Clobazam 15mg TAKE BY MO... BID PO 06/03/20 09:00 06/03/20 00:52 DC Patient Own Medication (Pt Own Med *Controlled Subst*) Clobazam 10mg TABS TAKE ... BID PO 06/03/20 09:00 06/21/20 13:07 DC 06/21/20 08:46 Prazosin HCl (Minipress) 1 mg QHS PO 06/11/20 21:00 06/26/20 20:29 Trazodone HCl (Desyrel) 50 mg QHSP PRN PO INSOMNIA 06/02/20 22:15 Vitamin D (Drisdol) 50,000 units Q14D@0900 PO 06/03/20 09:00 06/17/20 08:46 Zonisamide (Zonegran) 200 mg BID PO 06/02/20 21:00 06/27/20 08:36 Allergies Coded Allergies: Cephalosporins (Verified Allergy, Intermediate, HIVES, 03/28/20) cefaclor (Verified Allergy, Unknown, 07/12/19) lamotrigine (Verified Adverse Reaction, Severe, SJS, 07/12/19) CHANELLE DENNISON NP Jun 27, 2020 13:42
[2020-06-27 16:35] VITALS: BP 110/67
[2020-06-27] MEDS: PRAZOSIN 1 MG CAP PO SCH (20:28)
[2020-06-27] MEDS ORDERED: OLANZapine 10 MG TAB PO SCH (21:00)
[2020-06-28] MEDS: LEVOTHYROXINE 25MCG TABLET (0.025MG) PO SCH (06:00)
[2020-06-28 06:22] VITALS: BP 102/59
[2020-06-28] MEDS: PILL CUTTER 1 EACH XX PRN (08:15)
[2020-06-28] MEDS: FLUoxetine 20 MG CAP PO SCH (08:16)
[2020-06-28] MEDS: ZONISAMIDE 100 MG CAP (ZONEGRAN) PO SCH ×2 (08:16→20:40)
[2020-06-28] MEDS: ATORVASTATIN 20 MG TAB PO SCH (08:16)
--- NOTE | 2020-06-28 15:14 | MHIPN ---
[facility] PROGRESS NOTE DATE: 06/25/2020 SUBJECTIVE: The patient today states that she is doing "good" and every other question I asked her, as far as whether she is hearing voices, or whether she is having thoughts about harming herself or others, she answered "I don't know". When I suggested that maybe she was feeling a little bit better because her answers to the questions were that she was not sure. She then stated "if the voices come back, I will tell my nurse". MENTAL STATUS EXAMINATION: This patient is alert and oriented times three. She is pleasant and cooperative, verbally spontaneous. Eye contact is good. She does have a significant speech impediment but overall I was able to understand her pretty good today. She seemed to be calmer today. There is no formal thought disorder noted. She did say that her mood was "good". Affect is constricted but appropriate to mood. She is not having suicidal or homicidal thoughts today, and it appears that she is not hearing any voices today either. Concentration is fair. Memory is grossly intact. Insight and judgment are fair. DIAGNOSIS: 1. Unspecified psychotic disorder. 2. Intermittent explosive disorder. 3. Unspecified anxiety disorder. 4. Other specified compulsive and other related disorder. 5. Mild intellectual disability. TREATMENT PLAN: At this point we will continue to monitor the patient for continued resolution of hallucinations, and of any suicidal or homicidal ideations, and we will continue to titrate medications as indicated.
--- NOTE | 2020-06-28 16:06 | MHIPNPDOC ---
[facility] Progress Note Progress Note DATE OF SERVICE: 06/28/20 HISTORY: This is one of multiple admissions for this 35-year-old woman who was admitted because of "a voice inside my head is telling me to kill myself." She states that she is having thoughts of cutting her wrists for the past day. She is afraid she is going to end up killing herself. The patient also stated the voices are telling her to kill her mother and her niece. Of note, the patient had a recent psychiatric hospitalization at [facility] from 03/28/2020 to 04/30/2020, diagnosed with schizophrenia and intellectual disability moderate. She presented with the same, actually at that time it was just homicidal thoughts against her mother, stating that she was afraid that she would hurt her mother. VITAL SIGNS: See below. CURRENT MEDICATIONS: See below. MENTAL STATUS EXAMINATION: Patient is a 35-year-old Single, Disabled (Intellectually Disabled) Domiciled Female, who is admitted to [facility] for auditory command hallucinations telling her to kill herself. In today's interview, patient is seen in her room and she is agreeable to the interview. She is dressed appropriately, appears her stated age. Her hygiene and grooming is unkempt and disheveled. She is not observed with restlessness or psychomotor agitation. Eye contact is minimal. Speech: low tone, volume and slow rate Language skills are limited due to intellectual disability Thought processes including: linear, but limited due to intellectual disability Thought content: denies depression and anxiety, denies suicidal or homicidal tho ughts Abstract reasoning, and computation: limited Description of associations: denies suicidal and homicidal thoughts, reports mild AH/VH Description of abnormal or psychotic thoughts: reports none Judgment: limited Insight: limited Orientation: alert and oriented to person, place, time and situation Recent and remote memory: fair Attention span and concentration: poor Language: fair Fund of knowledge: below average Mood: observed to be depressed Affect: flat/congruent DIAGNOSES: Schizophrenia Intermittent explosive disorder. Other specified anxiety disorder. 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 Patient has not been outside of her room, not attending groups, minimal participation in the milieu, not attending to ADLS. Patient states that she is not depressed or have suicidal or homicidal thinking. Her hygiene and grooming is poor. Per staff, patient has less and less participation on the unit, appears more depressed. She reports a decrease in AH/VH Patient has a long history of homicidal threats to her mother, including physical harm. Staff reports that she has been very lethargic today. MANAGEMENT PLAN: Continue all medications, due to extreme lethargy, Zyprexa was decreased back to 20 mg. Patient was sedated this morning. We will discharge when she is stable TIME SPENT: 25 minutes. Vital Signs Vital Signs Date Time Temp Pulse Resp B/P (MAP) Pulse Ox O2 Delivery O2 Flow Rate FiO2 06/28/20 06:22 97.8 72 16 102/59 (73) 96 Room Air Current Medications Current Medications Medications (Trade) Dose Ordered Sig/Jonathan Route PRN Reason Start Time Stop Time Status Last Admin Dose Admin Acetaminophen (Tylenol Tab) 650 mg Q6HP PRN PO HEADACHE or DISCOMFORT 06/02/20 22:15 Al Hydrox/Mg Hydrox/Simethicone (Mylanta) 30 ml Q4HP PRN PO HEARTBURN/INDIGESTION 06/02/20 22:15 Albuterol Sulfate (Proventil Neb) 2.5 mg QID PRN INH SOB/WHEEZING 06/02/20 22:15 Atorvastatin Calcium (Lipitor) 20 mg DAILY PO 06/03/20 09:00 06/28/20 08:16 Brexpiprazole (Rexulti) 1 mg DAILY PO 06/03/20 09:00 06/04/20 13:58 DC 06/04/20 09:03 Brexpiprazole (Rexulti) 2 mg DAILY PO 06/05/20 09:00 06/11/20 14:17 DC 06/11/20 08:35 Brexpiprazole (Rexulti) 3 mg DAILY PO 06/12/20 09:00 06/14/20 09:43 DC 06/14/20 09:17 Clobazam (Onfi) 15 mg BID PO 06/21/20 21:00 06/28/20 08:16 Escitalopram Oxalate (Lexapro) 5 mg DAILY PO 06/15/20 09:00 06/15/20 16:45 DC 06/15/20 08:37 Fluoxetine HCl (PROzac) 20 mg DAILY PO 06/15/20 09:00 06/15/20 17:18 DC Fluoxetine HCl (PROzac) 20 mg DAILY PO 06/16/20 09:00 06/18/20 13:43 DC 06/18/20 08:37 Fluoxetine HCl (PROzac) 40 mg DAILY PO 06/19/20 09:00 06/21/20 14:00 DC 06/21/20 08:47 Fluoxetine HCl (PROzac) 60 mg DAILY PO 06/22/20 09:00 06/28/20 08:16 Home Med (Med Rec Complete!) ASDIRECTED XX 06/02/20 21:00 06/02/20 21:08 DC Levothyroxine Sodium (Synthroid) 25 mcg DAILY@0600 PO 06/03/20 06:00 06/28/20 06:00 Magnesium Hydroxide (Milk Of Magnesia) 30 ml DAILYPRN PRN PO CONSTIPATION 06/02/20 22:15 Miscellaneous (Unresolved Clarification Entry) SEE LABEL COMMENTS DAILY XX 06/16/20 09:00 06/16/20 17:18 DC Olanzapine (ZyPREXA ZYDIS) 5 mg Q6HP PRN PO ANXIETY/AGITATION 06/09/20 11:30 06/11/20 11:00 DC 06/09/20 11:34 Olanzapine (ZyPREXA ZYDIS) 5 mg Q6HP PRN PO ANXIETY/AGITATION 06/14/20 15:45 Olanzapine (ZyPREXA ZYDIS) 10 mg QHS PO 06/14/20 21:00 06/15/20 16:45 DC 06/14/20 21:02 Olanzapine (ZyPREXA) 15 mg QHS PO 06/15/20 21:00 06/17/20 12:14 DC 06/16/20 20:54 Olanzapine (ZyPREXA) 20 mg QHS PO 06/17/20 21:00 06/27/20 13:55 DC 06/26/20 20:29 Olanzapine (ZyPREXA) 20 mg QHS PO 06/28/20 21:00 Olanzapine (ZyPREXA) 30 mg QHS PO 06/27/20 21:00 06/28/20 09:18 DC 06/27/20 20:27 Patient Own Medication (Patient'S Own Med) Clobazam 15mg TAKE BY MO... BID PO 06/03/20 09:00 06/03/20 00:52 DC Patient Own Medication (Pt Own Med *Controlled Subst*) Clobazam 10mg TABS TAKE ... BID PO 06/03/20 09:00 06/21/20 13:07 DC 06/21/20 08:46 Prazosin HCl (Minipress) 1 mg QHS PO 06/11/20 21:00 06/27/20 20:28 Trazodone HCl (Desyrel) 50 mg QHSP PRN PO INSOMNIA 06/02/20 22:15 Vitamin D (Drisdol) 50,000 units Q14D@0900 PO 06/03/20 09:00 06/17/20 08:46 Zonisamide (Zonegran) 200 mg BID PO 06/02/20 21:00 06/28/20 08:16 Allergies Coded Allergies: Cephalosporins (Verified Allergy, Intermediate, HIVES, 03/28/20) cefaclor (Verified Allergy, Unknown, 07/12/19) lamotrigine (Verified Adverse Reaction, Severe, SJS, 07/12/19) CHANELLE DENNISON NP Jun 28, 2020 16:06
[2020-06-28 16:34] VITALS: BP 110/65
[2020-06-28] MEDS: OLANZapine 10 MG TAB PO SCH (20:40)
[2020-06-28] MEDS: PRAZOSIN 1 MG CAP PO SCH (20:41)
[2020-06-29] MEDS: LEVOTHYROXINE 25MCG TABLET (0.025MG) PO SCH (06:03)
[2020-06-29 06:38] VITALS: BP 135/77
[2020-06-29] MEDS: PILL CUTTER 1 EACH XX PRN (08:19)
[2020-06-29] MEDS: ATORVASTATIN 20 MG TAB PO SCH (08:21)
[2020-06-29] MEDS: FLUoxetine 20 MG CAP PO SCH (08:21)
[2020-06-29] MEDS: ZONISAMIDE 100 MG CAP (ZONEGRAN) PO SCH ×2 (08:21→20:27)
--- NOTE | 2020-06-29 10:20 | MHIPNPDOC ---
[facility] Progress Note Progress Note DATE OF SERVICE: 06/29/20 HISTORY: This is one of multiple admissions for this 35-year-old woman who was admitted because of "a voice inside my head is telling me to kill myself." She states that she is having thoughts of cutting her wrists for the past day. She is afraid she is going to end up killing herself. The patient also stated the voices are telling her to kill her mother and her niece. Of note, the patient had a recent psychiatric hospitalization at [facility] from 03/28/2020 to 04/30/2020, diagnosed with schizophrenia and intellectual disability moderate. She presented with the same, actually at that time it was just homicidal thoughts against her mother, stating that she was afraid that she would hurt her mother. VITAL SIGNS: See below. CURRENT MEDICATIONS: See below. MENTAL STATUS EXAMINATION: Patient is a 35-year-old Single, Disabled (Intellectually Disabled) Domiciled Female, who is admitted to [facility] for auditory command hallucinations telling her to kill herself. In today's interview, patient is seen in her room and she is agreeable to the interview. She is dressed appropriately, appears her stated age. Her hygiene and grooming is fair, she states she showered after yesterday's interview She is observed psychomotor slowing. Eye contact is minimal. Withdrawn and isolative. Speech: low tone, volume and slow rate Language skills are limited due to intellectual disability Thought processes including: linear, but limited due to intellectual disability Thought content: denies depression and anxiety, denies suicidal or homicidal thoughts Abstract reasoning, and computation: limited Description of associations: denies suicidal and homicidal thoughts, reports mild AH/VH Description of abnormal or psychotic thoughts: reports none Judgment: limited Insight: limited Orientation: alert and oriented to person, place, time and situation Recent and remote memory: fair Attention span and concentration: poor Language: fair Fund of knowledge: below average Mood: observed to be depressed Affect: flat/congruent DIAGNOSES: Schizophrenia Intermittent explosive disorder. Other specified anxiety disorder. 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 Staff reports that Patient has not been outside of her room, not attending groups, minimal participation in the milieu. Patient interviewed today but had minimal responses. She denies depression, anxiety, suicidal ideation and AH/VH. When asked about discharge she states, "Not ready." Patient is developmental and intellectually disabled. She states that she is tired, when she is asked if she feels that she is stable, she denies that she is stable today. She stated that she wants to talk to the event marketing specialist about discharge next week. This is a patient who has voiced command hallucinations in the past and has endorse thoughts of killing her mother with a knife. She does not live with her mother, patient lives in her own apartment but mother is very supportive and sees the patient often. Patient is reporting decreased AH to harm her mother. We are hoping to discharge her next week. MANAGEMENT PLAN: Continue all medications, We will discharge when she is stable, next week TIME SPENT: 25 minutes. Vital Signs Vital Signs Date Time Temp Pulse Resp B/P (MAP) Pulse Ox O2 Delivery O2 Flow Rate FiO2 06/29/20 06:38 98.5 78 16 135/77 (96) 97 Room Air Current Medications Current Medications Medications (Trade) Dose Ordered Sig/Jonathan Route PRN Reason Start Time Stop Time Status Last Admin Dose Admin Acetaminophen (Tylenol Tab) 650 mg Q6HP PRN PO HEADACHE or DISCOMFORT 06/02/20 22:15 Al Hydrox/Mg Hydrox/Simethicone (Mylanta) 30 ml Q4HP PRN PO HEARTBURN/INDIGESTION 06/02/20 22:15 Albuterol Sulfate (Proventil Neb) 2.5 mg QID PRN INH SOB/WHEEZING 06/02/20 22:15 Atorvastatin Calcium (Lipitor) 20 mg DAILY PO 06/03/20 09:00 06/29/20 08:21 Brexpiprazole (Rexulti) 1 mg DAILY PO 06/03/20 09:00 06/04/20 13:58 DC 06/04/20 09:03 Brexpiprazole (Rexulti) 2 mg DAILY PO 06/05/20 09:00 06/11/20 14:17 DC 06/11/20 08:35 Brexpiprazole (Rexulti) 3 mg DAILY PO 06/12/20 09:00 06/14/20 09:43 DC 06/14/20 09:17 Clobazam (Onfi) 15 mg BID PO 06/21/20 21:00 06/29/20 08:21 Escitalopram Oxalate (Lexapro) 5 mg DAILY PO 06/15/20 09:00 06/15/20 16:45 DC 06/15/20 08:37 Fluoxetine HCl (PROzac) 20 mg DAILY PO 06/15/20 09:00 06/15/20 17:18 DC Fluoxetine HCl (PROzac) 20 mg DAILY PO 06/16/20 09:00 06/18/20 13:43 DC 06/18/20 08:37 Fluoxetine HCl (PROzac) 40 mg DAILY PO 06/19/20 09:00 06/21/20 14:00 DC 06/21/20 08:47 Fluoxetine HCl (PROzac) 60 mg DAILY PO 06/22/20 09:00 06/29/20 08:21 Home Med (Med Rec Complete!) ASDIRECTED XX 06/02/20 21:00 06/02/20 21:08 DC Levothyroxine Sodium (Synthroid) 25 mcg DAILY@0600 PO 06/03/20 06:00 06/29/20 06:03 Magnesium Hydroxide (Milk Of Magnesia) 30 ml DAILYPRN PRN PO CONSTIPATION 06/02/20 22:15 Miscellaneous (Unresolved Clarification Entry) SEE LABEL COMMENTS DAILY XX 06/16/20 09:00 06/16/20 17:18 DC Olanzapine (ZyPREXA ZYDIS) 5 mg Q6HP PRN PO ANXIETY/AGITATION 06/09/20 11:30 06/11/20 11:00 DC 06/09/20 11:34 Olanzapine (ZyPREXA ZYDIS) 5 mg Q6HP PRN PO ANXIETY/AGITATION 06/14/20 15:45 Olanzapine (ZyPREXA ZYDIS) 10 mg QHS PO 06/14/20 21:00 06/15/20 16:45 DC 06/14/20 21:02 Olanzapine (ZyPREXA) 15 mg QHS PO 06/15/20 21:00 06/17/20 12:14 DC 06/16/20 20:54 Olanzapine (ZyPREXA) 20 mg QHS PO 06/17/20 21:00 06/27/20 13:55 DC 06/26/20 20:29 Olanzapine (ZyPREXA) 20 mg QHS PO 06/28/20 21:00 06/28/20 20:40 Olanzapine (ZyPREXA) 30 mg QHS PO 06/27/20 21:00 06/28/20 09:18 DC 06/27/20 20:27 Patient Own Medication (Patient'S Own Med) Clobazam 15mg TAKE BY MO... BID PO 06/03/20 09:00 06/03/20 00:52 DC Patient Own Medication (Pt Own Med *Controlled Subst*) Clobazam 10mg TABS TAKE ... BID PO 06/03/20 09:00 06/21/20 13:07 DC 06/21/20 08:46 Prazosin HCl (Minipress) 1 mg QHS PO 06/11/20 21:00 06/28/20 20:41 Trazodone HCl (Desyrel) 50 mg QHSP PRN PO INSOMNIA 06/02/20 22:15 Vitamin D (Drisdol) 50,000 units Q14D@0900 PO 06/03/20 09:00 06/17/20 08:46 Zonisamide (Zonegran) 200 mg BID PO 06/02/20 21:00 06/29/20 08:21 Allergies Coded Allergies: Cephalosporins (Verified Allergy, Intermediate, HIVES, 03/28/20) cefaclor (Verified Allergy, Unknown, 07/12/19) lamotrigine (Verified Adverse Reaction, Severe, SJS, 07/12/19) CHANELLE DENNISON NP Jun 29, 2020 10:14
--- NOTE | 2020-06-29 12:13 | MHIPN ---
DATE OF EVALUATION: 06/26/2020 SUBJECTIVE: The patient today tells me that she is doing "so, so" when I asked her how she is feeling. She did say that she slept good and every question that I asked her after that, she answered "I don't know". That was to the questions of whether she was having suicidal thoughts, homicidal thoughts or hearing voices. But she insists that she is not ready to go home, and she is not able to explain why. MENTAL STATUS EXAMINATION: She is alert and oriented to person and place. Her eye is fair. Psychomotor activity is decreased. There is no formal thought disorder noted. She says her mood is "so, so". Affect is flat. It sounds like she is not having any hallucinations or suicidal or homicidal thoughts at this time. Concentration is fair. Insight and judgment are poor. DIAGNOSIS: 1. Unspecified psychotic disorder. 2. Intermittent explosive disorder, unspecified. 3. Anxiety disorder. 4. Other specified compulsive and other related disorders. 5. Mild intellectual disability. TREATMENT PLAN: At this point we will continue to monitor the patient for hopefully what appears to be a resolution of her auditory hallucinations and of her suicidal and homicidal thoughts, and we will titrate her medications as indicated. It seems that her Prozac had just been increased recently. AYO
[2020-06-29 16:00] VITALS: BP 119/72
[2020-06-29] MEDS: PRAZOSIN 1 MG CAP PO SCH (20:27)
[2020-06-29] MEDS: OLANZapine 10 MG TAB PO SCH (20:27)
[2020-06-30] MEDS: LEVOTHYROXINE 25MCG TABLET (0.025MG) PO SCH (05:55)
[2020-06-30 06:21] VITALS: BP 115/56
[2020-06-30] MEDS: ZONISAMIDE 100 MG CAP (ZONEGRAN) PO SCH ×2 (08:09→20:13)
[2020-06-30] MEDS: PILL CUTTER 1 EACH XX PRN (08:09)
[2020-06-30] MEDS: FLUoxetine 20 MG CAP PO SCH (08:10)
[2020-06-30] MEDS: ATORVASTATIN 20 MG TAB PO SCH (08:10)
[2020-06-30 16:34] VITALS: BP 110/63
[2020-06-30] MEDS: OLANZapine 10 MG TAB PO SCH (20:12)
[2020-06-30] MEDS: PRAZOSIN 1 MG CAP PO SCH (20:13)
[2020-07-01] MEDS: LEVOTHYROXINE 25MCG TABLET (0.025MG) PO SCH (05:53)
[2020-07-01 06:22] VITALS: BP 119/71
[2020-07-01] MEDS: PILL CUTTER 1 EACH XX PRN (08:32)
[2020-07-01] MEDS: FLUoxetine 20 MG CAP PO SCH (08:32)
[2020-07-01] MEDS: ATORVASTATIN 20 MG TAB PO SCH (08:32)
[2020-07-01] MEDS: ZONISAMIDE 100 MG CAP (ZONEGRAN) PO SCH ×2 (08:33→20:26)
[2020-07-01] MEDS: VITAMIN D 50,000 UNITS CAPSULE (ERGOCALCIFEROL 1.25MG) PO SCH (08:33)
[2020-07-01 16:12] VITALS: BP 102/64
[2020-07-01] MEDS: OLANZapine 10 MG TAB PO SCH (20:26)
[2020-07-01] MEDS: PRAZOSIN 1 MG CAP PO SCH (20:26)
[2020-07-02] MEDS: LEVOTHYROXINE 25MCG TABLET (0.025MG) PO SCH (05:54)
[2020-07-02 06:38] VITALS: BP 122/66
[2020-07-02] MEDS: FLUoxetine 20 MG CAP PO SCH (08:14)
[2020-07-02] MEDS: ATORVASTATIN 20 MG TAB PO SCH (08:14)
[2020-07-02] MEDS: ZONISAMIDE 100 MG CAP (ZONEGRAN) PO SCH ×2 (08:14→20:15)
--- NOTE | 2020-07-02 13:02 | MHIPNPDOC ---
[facility] Progress Note Progress Note DATE OF SERVICE: 07/02/20 HISTORY: This is one of multiple admissions for this 35-year-old woman who was admitted because of "a voice inside my head is telling me to kill myself." She states that she is having thoughts of cutting her wrists for the past day. She is afraid she is going to end up killing herself. The patient also stated the voices are telling her to kill her mother and her niece. Of note, the patient had a recent psychiatric hospitalization at [facility] from 03/28/2020 to 04/30/2020, diagnosed with schizophrenia and intellectual disability moderate. She presented with the same, actually at that time it was just homicidal thoughts against her mother, stating that she was afraid that she would hurt her mother. VITAL SIGNS: See below. CURRENT MEDICATIONS: See below. MENTAL STATUS EXAMINATION: Patient is a 35-year-old Single, Disabled (Intellectually Disabled) Domiciled Female, who is admitted to [facility] for auditory command hallucinations telling her to kill herself. In today's interview, patient is seen in her room and she is agreeable to the interview. She is dressed appropriately, appears her stated age. Her hygiene and grooming is good Speech: low tone, volume and slow rate Language skills are limited due to intellectual disability Thought processes including: linear, but limited due to intellectual disability Thought content: denies depression and anxiety, denies suicidal or homicidal thoughts Abstract reasoning, and computation: limited Description of associations: denies suicidal and homicidal thoughts, reports mild AH/VH Description of abnormal or psychotic thoughts: reports none Judgment: limited Insight: limited Orientation: alert and oriented to person, place, time and situation Recent and remote memory: fair Attention span and concentration: poor Language: fair Fund of knowledge: below average Mood: observed to be depressed Affect: flat/congruent DIAGNOSES: Schizophrenia Intermittent explosive disorder. Other specified anxiety disorder. 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 She denied depression, anxiety, SI/HI and auditory hallucinations. Provider has attempted to introduce the idea of discharge to her. She does not want to be discharged today, but is mildly accepting the idea of being discharged on Thursday. She is unable to say she cannot leave sooner. Patient is moderately withdrawn and guarded, she is not exhibiting psychotic symptoms at this time. MANAGEMENT PLAN: Continue all medications, We will discharge when she is stable, patient says "Thursday" TIME SPENT: 25 minutes. Vital Signs Vital Signs Date Time Temp Pulse Resp B/P (MAP) Pulse Ox O2 Delivery O2 Flow Rate FiO2 07/02/20 06:38 97.9 80 16 122/66 (84) 98 Room Air Current Medications Current Medications Medications (Trade) Dose Ordered Sig/Jonathan Route PRN Reason Start Time Stop Time Status Last Admin Dose Admin Acetaminophen (Tylenol Tab) 650 mg Q6HP PRN PO HEADACHE or DISCOMFORT 06/02/20 22:15 Al Hydrox/Mg Hydrox/Simethicone (Mylanta) 30 ml Q4HP PRN PO HEARTBURN/INDIGESTION 06/02/20 22:15 Albuterol Sulfate (Proventil Neb) 2.5 mg QID PRN INH SOB/WHEEZING 06/02/20 22:15 Atorvastatin Calcium (Lipitor) 20 mg DAILY PO 06/03/20 09:00 07/02/20 08:14 Brexpiprazole (Rexulti) 1 mg DAILY PO 06/03/20 09:00 06/04/20 13:58 DC 06/04/20 09:03 Brexpiprazole (Rexulti) 2 mg DAILY PO 06/05/20 09:00 06/11/20 14:17 DC 06/11/20 08:35 Brexpiprazole (Rexulti) 3 mg DAILY PO 06/12/20 09:00 06/14/20 09:43 DC 06/14/20 09:17 Clobazam (Onfi) 15 mg BID PO 06/21/20 21:00 07/02/20 08:14 Escitalopram Oxalate (Lexapro) 5 mg DAILY PO 06/15/20 09:00 06/15/20 16:45 DC 06/15/20 08:37 Fluoxetine HCl (PROzac) 20 mg DAILY PO 06/15/20 09:00 06/15/20 17:18 DC Fluoxetine HCl (PROzac) 20 mg DAILY PO 06/16/20 09:00 06/18/20 13:43 DC 06/18/20 08:37 Fluoxetine HCl (PROzac) 40 mg DAILY PO 06/19/20 09:00 06/21/20 14:00 DC 06/21/20 08:47 Fluoxetine HCl (PROzac) 60 mg DAILY PO 06/22/20 09:00 07/02/20 08:14 Home Med (Med Rec Complete!) ASDIRECTED XX 06/02/20 21:00 06/02/20 21:08 DC Levothyroxine Sodium (Synthroid) 25 mcg DAILY@0600 PO 06/03/20 06:00 07/02/20 05:54 Magnesium Hydroxide (Milk Of Magnesia) 30 ml DAILYPRN PRN PO CONSTIPATION 06/02/20 22:15 Miscellaneous (Unresolved Clarification Entry) SEE LABEL COMMENTS DAILY XX 06/16/20 09:00 06/16/20 17:18 DC Olanzapine (ZyPREXA ZYDIS) 5 mg Q6HP PRN PO ANXIETY/AGITATION 06/09/20 11:30 06/11/20 11:00 DC 06/09/20 11:34 Olanzapine (ZyPREXA ZYDIS) 5 mg Q6HP PRN PO ANXIETY/AGITATION 06/14/20 15:45 Olanzapine (ZyPREXA ZYDIS) 10 mg QHS PO 06/14/20 21:00 06/15/20 16:45 DC 06/14/20 21:02 Olanzapine (ZyPREXA) 15 mg QHS PO 06/15/20 21:00 06/17/20 12:14 DC 06/16/20 20:54 Olanzapine (ZyPREXA) 20 mg QHS PO 06/17/20 21:00 06/27/20 13:55 DC 06/26/20 20:29 Olanzapine (ZyPREXA) 20 mg QHS PO 06/28/20 21:00 07/01/20 20:26 Olanzapine (ZyPREXA) 30 mg QHS PO 06/27/20 21:00 06/28/20 09:18 DC 06/27/20 20:27 Patient Own Medication (Patient'S Own Med) Clobazam 15mg TAKE BY MO... BID PO 06/03/20 09:00 06/03/20 00:52 DC Patient Own Medication (Pt Own Med *Controlled Subst*) Clobazam 10mg TABS TAKE ... BID PO 06/03/20 09:00 06/21/20 13:07 DC 06/21/20 08:46 Prazosin HCl (Minipress) 1 mg QHS PO 06/11/20 21:00 07/01/20 20:26 Trazodone HCl (Desyrel) 50 mg QHSP PRN PO INSOMNIA 06/02/20 22:15 Vitamin D (Drisdol) 50,000 units Q14D@0900 PO 06/03/20 09:00 07/01/20 08:33 Zonisamide (Zonegran) 200 mg BID PO 06/02/20 21:00 07/02/20 08:14 Allergies Coded Allergies: Cephalosporins (Verified Allergy, Intermediate, HIVES, 03/28/20) cefaclor (Verified Allergy, Unknown, 07/12/19) lamotrigine (Verified Adverse Reaction, Severe, SJS, 07/12/19) CHANELLE DENNISON NP Jul 02, 2020 13:02
[2020-07-02 17:47] VITALS: BP 119/70
[2020-07-02] MEDS: OLANZapine 10 MG TAB PO SCH (20:14)
[2020-07-02] MEDS: PRAZOSIN 1 MG CAP PO SCH (20:15)
[2020-07-03] MEDS: LEVOTHYROXINE 25MCG TABLET (0.025MG) PO SCH (06:09)
[2020-07-03 07:04] VITALS: BP 113/70
[2020-07-03] MEDS: ZONISAMIDE 100 MG CAP (ZONEGRAN) PO SCH ×2 (08:19→20:39)
[2020-07-03] MEDS: FLUoxetine 20 MG CAP PO SCH (08:19)
[2020-07-03] MEDS: ATORVASTATIN 20 MG TAB PO SCH (08:19)
[2020-07-03] MEDS: PILL CUTTER 1 EACH XX PRN (08:20)
[2020-07-03 17:56] VITALS: BP 114/72
[2020-07-03] MEDS: OLANZapine 10 MG TAB PO SCH (20:37)
[2020-07-03] MEDS: PRAZOSIN 1 MG CAP PO SCH (20:40)
--- NOTE | 2020-07-03 21:11 | MHIPNPDOC ---
[facility] Progress Note Progress Note DATE OF SERVICE: 07/03/20 HISTORY: This is one of multiple admissions for this 35-year-old woman who was admitted because of "a voice inside my head is telling me to kill myself." She states that she is having thoughts of cutting her wrists for the past day. She is afraid she is going to end up killing herself. The patient also stated the voices are telling her to kill her mother and her niece. Of note, the patient had a recent psychiatric hospitalization at [facility] from 03/28/2020 to 04/30/2020, diagnosed with schizophrenia and intellectual disability moderate. She presented with the same, actually at that time it was just homicidal thoughts against her mother, stating that she was afraid that she would hurt her mother. VITAL SIGNS: See below. CURRENT MEDICATIONS: See below. MENTAL STATUS EXAMINATION: Patient is a 35-year-old Single, Disabled (Intellectually Disabled) Domiciled Female, who is admitted to [facility] for auditory command hallucinations telling her to kill herself. Patient found in her room, sleeping. She is dressed appropriately although her hygiene and grooming has been poor. Psychomotor is slowed. Speech: low tone, volume and slow rate Language skills are limited due to intellectual disability Thought processes including: linear, but limited due to intellectual disability Thought content: denies depression and anxiety, denies suicidal or homicidal thoughts Abstract reasoning, and computation: limited Description of associations: denies suicidal and homicidal thoughts, reports no AH/VH Description of abnormal or psychotic thoughts: reports none Judgment: limited Insight: limited Orientation: alert and oriented to person, place, time and situation Recent and remote memory: fair Attention span and concentration: poor Language: fair Fund of knowledge: below average Mood: observed to be depressed Affect: flat/congruent DIAGNOSES: Schizophrenia Intermittent explosive disorder. Other specified anxiety disorder. 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 When asked why she is always in bed, she states "I sleep at home a lot too." She denied depression, anxiety, SI/HI and auditory hallucinations. Encouraged patient to be out in the milieu, attend groups and attend to her ADLs. Per the staff patient has depressive symptoms but no reports of auditory/command hallucinations to hurt her mother. She is however, more withdrawn, isolative and guarded. Patient's Prozac was recently increased to 60 mg. There is no consideration to increase to 80 mg considering that this increase was relatively a short time ago and that the recommended maximum dose is 60 mg. MANAGEMENT PLAN: Continue all medications, We will discharge when she is stable. TIME SPENT: 25 minutes. Vital Signs Vital Signs Date Time Temp Pulse Resp B/P (MAP) Pulse Ox O2 Delivery O2 Flow Rate FiO2 07/03/20 20:40 119/64 07/03/20 17:56 99.4 76 16 100 07/03/20 07:04 Room Air Current Medications Current Medications Medications (Trade) Dose Ordered Sig/Jonathan Route PRN Reason Start Time Stop Time Status Last Admin Dose Admin Acetaminophen (Tylenol Tab) 650 mg Q6HP PRN PO HEADACHE or DISCOMFORT 06/02/20 22:15 Al Hydrox/Mg Hydrox/Simethicone (Mylanta) 30 ml Q4HP PRN PO HEARTBURN/INDIGESTION 06/02/20 22:15 Albuterol Sulfate (Proventil Neb) 2.5 mg QID PRN INH SOB/WHEEZING 06/02/20 22:15 Atorvastatin Calcium (Lipitor) 20 mg DAILY PO 06/03/20 09:00 07/03/20 08:19 Brexpiprazole (Rexulti) 1 mg DAILY PO 06/03/20 09:00 06/04/20 13:58 DC 06/04/20 09:03 Brexpiprazole (Rexulti) 2 mg DAILY PO 06/05/20 09:00 06/11/20 14:17 DC 06/11/20 08:35 Brexpiprazole (Rexulti) 3 mg DAILY PO 06/12/20 09:00 06/14/20 09:43 DC 06/14/20 09:17 Clobazam (Onfi) 15 mg BID PO 06/21/20 21:00 07/03/20 20:37 Escitalopram Oxalate (Lexapro) 5 mg DAILY PO 06/15/20 09:00 06/15/20 16:45 DC 06/15/20 08:37 Fluoxetine HCl (PROzac) 20 mg DAILY PO 06/15/20 09:00 06/15/20 17:18 DC Fluoxetine HCl (PROzac) 20 mg DAILY PO 06/16/20 09:00 06/18/20 13:43 DC 06/18/20 08:37 Fluoxetine HCl (PROzac) 40 mg DAILY PO 06/19/20 09:00 06/21/20 14:00 DC 06/21/20 08:47 Fluoxetine HCl (PROzac) 60 mg DAILY PO 06/22/20 09:00 07/03/20 08:19 Home Med (Med Rec Complete!) ASDIRECTED XX 06/02/20 21:00 06/02/20 21:08 DC Levothyroxine Sodium (Synthroid) 25 mcg DAILY@0600 PO 06/03/20 06:00 07/03/20 06:09 Magnesium Hydroxide (Milk Of Magnesia) 30 ml DAILYPRN PRN PO CONSTIPATION 06/02/20 22:15 Miscellaneous (Unresolved Clarification Entry) SEE LABEL COMMENTS DAILY XX 06/16/20 09:00 06/16/20 17:18 DC Olanzapine (ZyPREXA ZYDIS) 5 mg Q6HP PRN PO ANXIETY/AGITATION 06/09/20 11:30 06/11/20 11:00 DC 06/09/20 11:34 Olanzapine (ZyPREXA ZYDIS) 5 mg Q6HP PRN PO ANXIETY/AGITATION 06/14/20 15:45 Olanzapine (ZyPREXA ZYDIS) 10 mg QHS PO 06/14/20 21:00 06/15/20 16:45 DC 06/14/20 21:02 Olanzapine (ZyPREXA) 15 mg QHS PO 06/15/20 21:00 06/17/20 12:14 DC 06/16/20 20:54 Olanzapine (ZyPREXA) 20 mg QHS PO 06/17/20 21:00 06/27/20 13:55 DC 06/26/20 20:29 Olanzapine (ZyPREXA) 20 mg QHS PO 06/28/20 21:00 07/03/20 20:37 Olanzapine (ZyPREXA) 30 mg QHS PO 06/27/20 21:00 06/28/20 09:18 DC 06/27/20 20:27 Patient Own Medication (Patient'S Own Med) Clobazam 15mg TAKE BY MO... BID PO 06/03/20 09:00 06/03/20 00:52 DC Patient Own Medication (Pt Own Med *Controlled Subst*) Clobazam 10mg TABS TAKE ... BID PO 06/03/20 09:00 06/21/20 13:07 DC 06/21/20 08:46 Prazosin HCl (Minipress) 1 mg QHS PO 06/11/20 21:00 07/03/20 20:40 Trazodone HCl (Desyrel) 50 mg QHSP PRN PO INSOMNIA 06/02/20 22:15 Vitamin D (Drisdol) 50,000 units Q14D@0900 PO 06/03/20 09:00 07/01/20 08:33 Zonisamide (Zonegran) 200 mg BID PO 06/02/20 21:00 07/03/20 20:39 Allergies Coded Allergies: Cephalosporins (Verified Allergy, Intermediate, HIVES, 03/28/20) cefaclor (Verified Allergy, Unknown, 07/12/19) lamotrigine (Verified Adverse Reaction, Severe, SJS, 07/12/19) CHANELLE DENNISON NP Jul 03, 2020 21:11
[2020-07-04] MEDS: LEVOTHYROXINE 25MCG TABLET (0.025MG) PO SCH (05:55)
[2020-07-04 06:45] VITALS: BP 111/53
[2020-07-04] MEDS: ZONISAMIDE 100 MG CAP (ZONEGRAN) PO SCH ×2 (08:43→21:04)
[2020-07-04] MEDS: ATORVASTATIN 20 MG TAB PO SCH (08:43)
[2020-07-04] MEDS: FLUoxetine 20 MG CAP PO SCH (08:43)
[2020-07-04] MEDS: PILL CUTTER 1 EACH XX PRN ×2 (08:43→21:03)
--- NOTE | 2020-07-04 15:53 | MHIPNPDOC ---
[facility] Progress Note Progress Note DATE OF SERVICE: 07/04/20 HISTORY: This is one of multiple admissions for this 35-year-old woman who was admitted because of "a voice inside my head is telling me to kill myself." She states that she is having thoughts of cutting her wrists for the past day. She is afraid she is going to end up killing herself. The patient also stated the voices are telling her to kill her mother and her niece. Of note, the patient had a recent psychiatric hospitalization at [facility] from 03/28/2020 to 04/30/2020, diagnosed with schizophrenia and intellectual disability moderate. She presented with the same, actually at that time it was just homicidal thoughts against her mother, stating that she was afraid that she would hurt her mother. VITAL SIGNS: See below. CURRENT MEDICATIONS: See below. MENTAL STATUS EXAMINATION: Patient is a 35-year-old Single, Disabled (Intellectually Disabled) Domiciled Female, who is admitted to [facility] for auditory command hallucinations telling her to kill herself. Patient found in her room, sleeping. She is dressed appropriately although her hygiene and grooming is fair. Psychomotor is slowed. Speech: low tone, volume and slow rate Language skills are limited due to intellectual disability Thought processes including: linear, but limited due to intellectual disability Thought content: denies depression and anxiety, denies suicidal or homicidal thoughts Abstract reasoning, and computation: limited Description of associations: denies suicidal and homicidal thoughts, reports no AH/VH Description of abnormal or psychotic thoughts: reports none Judgment: limited Insight: limited Orientation: alert and oriented to person, place, time and situation Recent and remote memory: fair Attention span and concentration: poor Language: fair Fund of knowledge: below average Mood: observed to be depressed Affect: flat/congruent, later in the interview she became agitated and asked this policy writer to leave the room DIAGNOSES: Schizophrenia Intermittent explosive disorder. Other specified anxiety disorder. Other specified compulsive and related disorder. Intellectual developmental disorder, mild type, ASSESSMENT: Patient was found sitting in her bed attempting to get back in it. Reinforced with her to stay out of her bed, out of her room, be in the milieu and be in groups. She reports that there are too many people on the unit. She cannot function in the group, I suspect that the topics are too difficult for her and she has problems relating to other peers due to Intellectual disability. She stated to this policy writer after being strongly encouraged to not return to bed, "I am not coming back to this hospital, I am going home, I am going to sleep when I want, I don't want you in my room! Get out!" MANAGEMENT PLAN: Continue all medications, We will discharge on Thursday per her request. TIME SPENT: 25 minutes. Vital Signs Vital Signs Date Time Temp Pulse Resp B/P (MAP) Pulse Ox O2 Delivery O2 Flow Rate FiO2 07/04/20 06:45 98.6 102 16 111/53 (72) 97 Room Air Current Medications Current Medications Medications (Trade) Dose Ordered Sig/Jonathan Route PRN Reason Start Time Stop Time Status Last Admin Dose Admin Acetaminophen (Tylenol Tab) 650 mg Q6HP PRN PO HEADACHE or DISCOMFORT 06/02/20 22:15 Al Hydrox/Mg Hydrox/Simethicone (Mylanta) 30 ml Q4HP PRN PO HEARTBURN/INDIGESTION 06/02/20 22:15 Albuterol Sulfate (Proventil Neb) 2.5 mg QID PRN INH SOB/WHEEZING 06/02/20 22:15 Atorvastatin Calcium (Lipitor) 20 mg DAILY PO 06/03/20 09:00 07/04/20 08:43 Brexpiprazole (Rexulti) 1 mg DAILY PO 06/03/20 09:00 06/04/20 13:58 DC 06/04/20 09:03 Brexpiprazole (Rexulti) 2 mg DAILY PO 06/05/20 09:00 06/11/20 14:17 DC 06/11/20 08:35 Brexpiprazole (Rexulti) 3 mg DAILY PO 06/12/20 09:00 06/14/20 09:43 DC 06/14/20 09:17 Clobazam (Onfi) 15 mg BID PO 06/21/20 21:00 07/04/20 08:43 Escitalopram Oxalate (Lexapro) 5 mg DAILY PO 06/15/20 09:00 06/15/20 16:45 DC 06/15/20 08:37 Fluoxetine HCl (PROzac) 20 mg DAILY PO 06/15/20 09:00 06/15/20 17:18 DC Fluoxetine HCl (PROzac) 20 mg DAILY PO 06/16/20 09:00 06/18/20 13:43 DC 06/18/20 08:37 Fluoxetine HCl (PROzac) 40 mg DAILY PO 06/19/20 09:00 06/21/20 14:00 DC 06/21/20 08:47 Fluoxetine HCl (PROzac) 60 mg DAILY PO 06/22/20 09:00 07/04/20 08:43 Home Med (Med Rec Complete!) ASDIRECTED XX 06/02/20 21:00 06/02/20 21:08 DC Levothyroxine Sodium (Synthroid) 25 mcg DAILY@0600 PO 06/03/20 06:00 07/04/20 05:55 Magnesium Hydroxide (Milk Of Magnesia) 30 ml DAILYPRN PRN PO CONSTIPATION 06/02/20 22:15 Miscellaneous (Unresolved Clarification Entry) SEE LABEL COMMENTS DAILY XX 06/16/20 09:00 06/16/20 17:18 DC Olanzapine (ZyPREXA ZYDIS) 5 mg Q6HP PRN PO ANXIETY/AGITATION 06/09/20 11:30 06/11/20 11:00 DC 06/09/20 11:34 Olanzapine (ZyPREXA ZYDIS) 5 mg Q6HP PRN PO ANXIETY/AGITATION 06/14/20 15:45 Olanzapine (ZyPREXA ZYDIS) 10 mg QHS PO 06/14/20 21:00 06/15/20 16:45 DC 06/14/20 21:02 Olanzapine (ZyPREXA) 15 mg QHS PO 06/15/20 21:00 06/17/20 12:14 DC 06/16/20 20:54 Olanzapine (ZyPREXA) 20 mg QHS PO 06/17/20 21:00 06/27/20 13:55 DC 06/26/20 20:29 Olanzapine (ZyPREXA) 20 mg QHS PO 06/28/20 21:00 07/03/20 20:37 Olanzapine (ZyPREXA) 30 mg QHS PO 06/27/20 21:00 06/28/20 09:18 DC 06/27/20 20:27 Patient Own Medication (Patient'S Own Med) Clobazam 15mg TAKE BY MO... BID PO 06/03/20 09:00 06/03/20 00:52 DC Patient Own Medication (Pt Own Med *Controlled Subst*) Clobazam 10mg TABS TAKE ... BID PO 06/03/20 09:00 06/21/20 13:07 DC 06/21/20 08:46 Prazosin HCl (Minipress) 1 mg QHS PO 06/11/20 21:00 07/03/20 20:40 Trazodone HCl (Desyrel) 50 mg QHSP PRN PO INSOMNIA 06/02/20 22:15 Vitamin D (Drisdol) 50,000 units Q14D@0900 PO 06/03/20 09:00 07/01/20 08:33 Zonisamide (Zonegran) 200 mg BID PO 06/02/20 21:00 07/04/20 08:43 Allergies Coded Allergies: Cephalosporins (Verified Allergy, Intermediate, HIVES, 03/28/20) cefaclor (Verified Allergy, Unknown, 07/12/19) lamotrigine (Verified Adverse Reaction, Severe, SJS, 07/12/19) CHANELLE DENNISON NP Jul 04, 2020 15:53
[2020-07-04 18:17] VITALS: BP 119/66
[2020-07-04] MEDS: OLANZapine 10 MG TAB PO SCH (21:04)
[2020-07-04] MEDS: PRAZOSIN 1 MG CAP PO SCH (21:06)
[2020-07-05] MEDS: LEVOTHYROXINE 25MCG TABLET (0.025MG) PO SCH (06:11)
[2020-07-05 06:15] VITALS: BP 142/63
[2020-07-05] MEDS: PILL CUTTER 1 EACH XX PRN (08:38)
[2020-07-05] MEDS: ATORVASTATIN 20 MG TAB PO SCH (08:40)
[2020-07-05] MEDS: FLUoxetine 20 MG CAP PO SCH (08:40)
[2020-07-05] MEDS: ZONISAMIDE 100 MG CAP (ZONEGRAN) PO SCH ×2 (08:40→21:37)
[2020-07-05 16:20] VITALS: BP 115/68
--- NOTE | 2020-07-05 16:50 | MHIPNPDOC ---
[facility] Progress Note Progress Note DATE OF SERVICE: 07/05/20 HISTORY: This is one of multiple admissions for this 35-year-old woman who was admitted because of "a voice inside my head is telling me to kill myself." She states that she is having thoughts of cutting her wrists for the past day. She is afraid she is going to end up killing herself. The patient also stated the voices are telling her to kill her mother and her niece. Of note, the patient had a recent psychiatric hospitalization at [facility] from 03/28/2020 to 04/30/2020, diagnosed with schizophrenia and intellectual disability moderate. She presented with the same, actually at that time it was just homicidal thoughts against her mother, stating that she was afraid that she would hurt her mother. VITAL SIGNS: See below. CURRENT MEDICATIONS: See below. MENTAL STATUS EXAMINATION: Patient is a 35-year-old Single, Disabled (Intellectually Disabled) Domiciled Female, who is admitted to [facility] for auditory command hallucinations telling her to kill herself. Patient found in her room, sleeping. She is dressed appropriately although her hygiene and grooming is fair. Psychomotor is slowed. Speech: low tone, volume and slow rate Language skills are limited due to intellectual disability Thought processes including: linear, but limited due to intellectual disability Thought content: denies depression and anxiety, denies suicidal or homicidal thoughts Abstract reasoning, and computation: limited Description of associations: denies suicidal and homicidal thoughts, reports no AH/VH Description of abnormal or psychotic thoughts: reports none Judgment: limited Insight: limited Orientation: alert and oriented to person, place, time and situation Recent and remote memory: fair Attention span and concentration: poor Language: fair Fund of knowledge: below average Mood: observed to be depressed Affect: flat/congruent, later in the interview she became agitated and asked this typewriter operator automatic to leave the room DIAGNOSES: Schizophrenia Intermittent explosive disorder. Other specified anxiety disorder. Other specified compulsive and related disorder. Intellectual developmental disorder, mild type, ASSESSMENT: Patient was found sleeping in her bed. Her hair is disheveled and in her face. Continuing to reinforce with her to stay out of her bed, out of her room, be in the milieu and be in groups. She reports that there are too many people on the unit. She denies homicidal threats to other people. Denies suicidal ideation. Denies depression and anxiety. She is hoping for discharge tomorrow. MANAGEMENT PLAN: Continue all medications, We will tomorrow per her request. TIME SPENT: 25 minutes. Vital Signs Vital Signs Date Time Temp Pulse Resp B/P (MAP) Pulse Ox O2 Delivery O2 Flow Rate FiO2 07/05/20 16:20 98.1 87 16 115/68 (84) 97 Room Air Current Medications Current Medications Medications (Trade) Dose Ordered Sig/Jonathan Route PRN Reason Start Time Stop Time Status Last Admin Dose Admin Acetaminophen (Tylenol Tab) 650 mg Q6HP PRN PO HEADACHE or DISCOMFORT 06/02/20 22:15 Al Hydrox/Mg Hydrox/Simethicone (Mylanta) 30 ml Q4HP PRN PO HEARTBURN/INDIGESTION 06/02/20 22:15 Albuterol Sulfate (Proventil Neb) 2.5 mg QID PRN INH SOB/WHEEZING 06/02/20 22:15 Atorvastatin Calcium (Lipitor) 20 mg DAILY PO 06/03/20 09:00 07/05/20 08:40 Brexpiprazole (Rexulti) 1 mg DAILY PO 06/03/20 09:00 06/04/20 13:58 DC 06/04/20 09:03 Brexpiprazole (Rexulti) 2 mg DAILY PO 06/05/20 09:00 06/11/20 14:17 DC 06/11/20 08:35 Brexpiprazole (Rexulti) 3 mg DAILY PO 06/12/20 09:00 06/14/20 09:43 DC 06/14/20 09:17 Clobazam (Onfi) 15 mg BID PO 06/21/20 21:00 07/05/20 08:38 Escitalopram Oxalate (Lexapro) 5 mg DAILY PO 06/15/20 09:00 06/15/20 16:45 DC 06/15/20 08:37 Fluoxetine HCl (PROzac) 20 mg DAILY PO 06/15/20 09:00 06/15/20 17:18 DC Fluoxetine HCl (PROzac) 20 mg DAILY PO 06/16/20 09:00 06/18/20 13:43 DC 06/18/20 08:37 Fluoxetine HCl (PROzac) 40 mg DAILY PO 06/19/20 09:00 06/21/20 14:00 DC 06/21/20 08:47 Fluoxetine HCl (PROzac) 60 mg DAILY PO 06/22/20 09:00 07/05/20 08:40 Home Med (Med Rec Complete!) ASDIRECTED XX 06/02/20 21:00 06/02/20 21:08 DC Levothyroxine Sodium (Synthroid) 25 mcg DAILY@0600 PO 06/03/20 06:00 07/05/20 06:11 Magnesium Hydroxide (Milk Of Magnesia) 30 ml DAILYPRN PRN PO CONSTIPATION 06/02/20 22:15 Miscellaneous (Unresolved Clarification Entry) SEE LABEL COMMENTS DAILY XX 06/16/20 09:00 06/16/20 17:18 DC Olanzapine (ZyPREXA ZYDIS) 5 mg Q6HP PRN PO ANXIETY/AGITATION 06/09/20 11:30 06/11/20 11:00 DC 06/09/20 11:34 Olanzapine (ZyPREXA ZYDIS) 5 mg Q6HP PRN PO ANXIETY/AGITATION 06/14/20 15:45 Olanzapine (ZyPREXA ZYDIS) 10 mg QHS PO 06/14/20 21:00 06/15/20 16:45 DC 06/14/20 21:02 Olanzapine (ZyPREXA) 15 mg QHS PO 06/15/20 21:00 06/17/20 12:14 DC 06/16/20 20:54 Olanzapine (ZyPREXA) 20 mg QHS PO 06/17/20 21:00 06/27/20 13:55 DC 06/26/20 20:29 Olanzapine (ZyPREXA) 20 mg QHS PO 06/28/20 21:00 07/04/20 21:04 Olanzapine (ZyPREXA) 30 mg QHS PO 06/27/20 21:00 06/28/20 09:18 DC 06/27/20 20:27 Patient Own Medication (Patient'S Own Med) Clobazam 15mg TAKE BY MO... BID PO 06/03/20 09:00 06/03/20 00:52 DC Patient Own Medication (Pt Own Med *Controlled Subst*) Clobazam 10mg TABS TAKE ... BID PO 06/03/20 09:00 06/21/20 13:07 DC 06/21/20 08:46 Prazosin HCl (Minipress) 1 mg QHS PO 06/11/20 21:00 07/04/20 21:06 Trazodone HCl (Desyrel) 50 mg QHSP PRN PO INSOMNIA 06/02/20 22:15 Vitamin D (Drisdol) 50,000 units Q14D@0900 PO 06/03/20 09:00 07/01/20 08:33 Zonisamide (Zonegran) 200 mg BID PO 06/02/20 21:00 07/05/20 08:40 Allergies Coded Allergies: Cephalosporins (Verified Allergy, Intermediate, HIVES, 03/28/20) cefaclor (Verified Allergy, Unknown, 07/12/19) lamotrigine (Verified Adverse Reaction, Severe, SJS, 07/12/19) CHANELLE DENNISON NP Jul 05, 2020 16:50
[2020-07-05] MEDS ORDERED: MINI1CAP PO (17:05)
[2020-07-05] MEDS ORDERED: OLAN10TA2 PO (17:05)
[2020-07-05] MEDS ORDERED: FLUO20CA22 PO (17:05)
[2020-07-05 21:36] VITALS: BP 124/72
[2020-07-05] MEDS: PRAZOSIN 1 MG CAP PO SCH (21:36)
[2020-07-05] MEDS: OLANZapine 10 MG TAB PO SCH (21:37)
[2020-07-06] MEDS: LEVOTHYROXINE 25MCG TABLET (0.025MG) PO SCH (05:48)
[2020-07-06] MEDS: ZONISAMIDE 100 MG CAP (ZONEGRAN) PO SCH (08:31)
[2020-07-06] MEDS: FLUoxetine 20 MG CAP PO SCH (08:31)
[2020-07-06] MEDS: PILL CUTTER 1 EACH XX PRN (08:31)
[2020-07-06] MEDS: ATORVASTATIN 20 MG TAB PO SCH (08:31)
--- NOTE | 2020-07-06 12:38 | MHDSPDOC ---
[facility] Discharge Summary Discharge Summary DATE OF ADMISSION: Jun 03, 2020 at 00:28 DATE OF DISCHARGE: July 06, 2020 1235 DISCHARGE DIAGNOSES: Schizophrenia Disorder Intermittent explosive disorder. Other specified anxiety disorder. Other specified compulsive and related disorder. Intellectual developmental disorder, mild type, REASON FOR ADMISSION: Patient is a 35 year old Single, developmental disabled, domiciled, Female who was admitted for suicidal and homicidal ideations. This is one of multiple admissions for this 35-year-old woman who w as admitted because of "a voice inside my head is telling me to kill myself." She states that she is having thoughts of cutting her wrists for the past day. She is afraid she is going to end up killing herself. The patient also stated the voices are telling her to kill her mother and her niece. Of note, the patient had a recent psychiatric hospitalization at [facility] from 03/28/2020 to 04/30/2020, diagnosed with schizophrenia and intellectual disability moderate. She presented with the same, actually at that time it was just homicidal thoughts against her mother, stating that she was afraid that she would hurt her mother. CONSULTANTS INVOLVED: See Medical H + P by Hospitalist TREATMENT AND PROGRESS ON THE UNIT: Patient was admitted to the [facility] on a 9.39 legal status he was afforded the following treatment modalities: 1) Individual Therapy 2) Group Therapy 3) Medication Management 4) Milieu Therapy 5) Safe Environment HOSPITAL COURSE: Patient was admitted to [facility] on a 9.39 legal status and subsequently a 2PC due to her needing continued hospitalization longer than 15 days. Patient was started on Zyprexa for her hallucinations, Prozac for Depression and was initiated on Rexulti for a short period but this was discontinued. Patient did not engage in group therapies most of her hospitalization, reporting social anxiety which her mother confirmed. Patient stayed close to her room was isolative and withdrawn. Was reported that when she had a roommate she did better. Towards the end of her hospitalization. She did not have a roommate in her participation in the milieu declined. Her negative symptoms of schizophrenia appeared to be somewhat magnified but patient reported that she often slept during the day at home when her affect and ADLs were addressed she became very upset. However, at this time given that her chief complaint was suicidal and homicidal ideation I don't believe that she needs continued hospitalization. I am however, concerned that her negative symptoms could be the result of the Prozac being at 60 mg and believe that outpatient may consider decreasing this dose to determine if this would decrease her symptoms of alogia, anhedonia,and blunted affect. DISCHARGE ASSESSMENT: In today's interview, patient is alert and oriented, pts dress is appropriate. Hygiene and grooming is fair. She is cooperative in pleasant and more engaged in the interview today than in the past week. Denies depression and anxiety. Denies suicidal and homicidal ideation, planning or intent. Denies and is not observed with marybeth, psychotic symptoms of delusions, bizarre thinking, obsessions, paranoia, ruminations illogical thoughts, flight of ideas or having poor insight and judgement. Patient has normal mentation, declines further hospitalization on a voluntary status and meets criteria for discharge today. Patient's mother encouraged to return to hospital if symptoms worsen or change and encouraged to call unit if requesting to speak to provider for questions regarding medications or care. MENTAL STATUS EXAMINATION ON DISCHARGE: Patient is a 35-year-old Single, Disabled (Intellectually Disabled) Domiciled Female, who is admitted to [facility] for auditory command hallucinations telling her to kill herself. Patient found in her room, sleeping. She is dressed appropriately although her hygiene and grooming is fair. Psychomotor is slowed. Speech: low tone, volume and slow rate Language skills are limited due to intellectual disability Thought processes including: linear, but limited due to intellectual disability Thought content: denies depression and anxiety, denies suicidal or homicidal thoughts Abstract reasoning, and computation: limited Description of associations: denies suicidal and homicidal thoughts, reports no AH/VH Description of abnormal or psychotic thoughts: reports none Judgment: limited Insight: limited Orientation: alert and oriented to person, place, time and situation Recent and remote memory: fair Attention span and concentration: poor Language: fair Fund of knowledge: below average Mood: observed to be less depressed patient states "I am good" Affect: flat/congruent MEDICATIONS ON DISCHARGE: See Medication Reconciliation PLAN/FOLLOWUP ARRANGEMENTS: [facility] The amount of time spent in the coordination of care for this patient was approximately 35 minutes. Vital Signs/I&Os Vital Signs Date Time Temp Pulse Resp B/P (MAP) Pulse Ox O2 Delivery O2 Flow Rate FiO2 07/05/20 21:36 124/72 07/05/20 16:20 98.1 87 16 97 Room Air Medications Scheduled Atorvastatin Calcium (Lipitor) 20 Mg Tab, 20 MG PO DAILY, (Reported) Calcium Carbonate/Vitamin D3 (Calcium 600-Vit D3 200 Tablet) 1 Tab Tab, 1 TAB PO BID, (Reported) Clobazam (Clobazam) 10 Mg Tablet, 15 MG PO BID, (Reported) Ergocalciferol (Vitamin D2) (Vitamin D2) 50,000 Units Cap, 50,000 UNITS PO Q2WK, (Reported) EVERY OTHER THURSDAY Fluoxetine Hcl (Fluoxetine HCl) 20 Mg Capsule, 60 MG PO DAILY for depression, #21 Levothyroxine Sodium (Levothyroxine Sodium) 25 Mcg Tab, 25 MCG PO DAILY, (Reported) Olanzapine (Olanzapine) 10 Mg Tablet, 20 MG PO QHS for Hallucinations, #14 Prazosin HCl (Minipress) 1 Mg Capsule, 1 MG PO QHS for Nightmares, #7 Zonisamide (Zonisamide) 100 Mg Cap, 200 MG PO BID, (Reported) Scheduled PRN Albuterol Sulf (Albuterol Sulfate) 2.5 Mg/3 Ml Vial.neb, 2.5 MG INH QID PRN for SOB/WHEEZING, (Reported) Allergies Coded Allergies: Cephalosporins (Verified Allergy, Intermediate, HIVES, 03/28/20) cefaclor (Verified Allergy, Unknown, 07/12/19) lamotrigine (Verified Adverse Reaction, Severe, SJS, 07/12/19) CHANELLE DENNISON NP Jul 06, 2020 12:38
== END 2020-07-06 13:25 | disposition home or self-care (01) | DRG 750 ==
LOC: M ED 18:32 → M PSY 06-03 00:28 → M ED 06-03 00:52 → M PSY 06-12 15:34
PROVIDERS: ADMIT Psychiatry & Neurology Psychiatry; ATTEND Psychiatry & Neurology Psychiatry
DX: F20.0 Paranoid schizophrenia (principal); F70 Mild intellectual disabilities; K76.0 Fatty (change of) liver, not elsewhere classified; F41.8 Other specified anxiety disorders; F63.81 Intermittent explosive disorder; F60.5 Obsessive-compulsive personality disorder; Z79.899 Other long term (current) drug therapy; Z88.8 Allergy status to other drugs, medicaments and biological substances; K21.9 Gastro-esophageal reflux disease without esophagitis; K44.9 Diaphragmatic hernia without obstruction or gangrene; J45.909 Unspecified asthma, uncomplicated; E03.9 Hypothyroidism, unspecified; E78.5 Hyperlipidemia, unspecified

== ENCOUNTER → 2020-07-09 | Outpatient (REF) | payer MEDICARE, MEDICAID ==
[~2020-07-09] MED LIST changes: +FLUO20CA22 PO; +MINI1CAP PO; +OLAN10TA2 PO
== END ==
LOC: M SFHCPLAZ 13:20
PROVIDERS: ATTEND Physician Assistant
DX: H10.33 Unspecified acute conjunctivitis, bilateral (principal)

== ENCOUNTER 2020-07-14 19:31 | Inpatient (IN) | payer MEDICARE, MEDICAID ==
[~2020-07-14] VITALS: Ht 170.2 cm; Wt 95.5 kg
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
--- OUTSIDE RECORDS SUMMARY | 2020-07-14 19:37 | CCD ---
Author Author [facility] Organization [facility] Address Unknown Phone Unavailable Care Team Providers Care Water Resource Consultant Name Role Phone Erma Brock Unavailable Unavailable VinodErma young Unavailable Unavailable VinodErma young Unavailable Unavailable VinodErma young Unavailable Unavailable ViondErma young Unavailable Unavailable VinodErma young Unavailable Unavailable VinodErma young Unavailable Unavailable VinodErma young Unavailable Unavailable VinodErma young Unavailable Unavailable VinodErma young Unavailable Unavailable VinodErma Unavailable Unavailable VinodErma young Unavailable Unavailable VinodErma young Unavailable Unavailable VinodErma Unavailable Unavailable VinodErma young Unavailable Unavailable VinodErma young Unavailable Unavailable VinodErma young Unavailable Unavailable VinodErma young Unavailable Unavailable VinodErma young Unavailable Unavailable VinodErma young Unavailable Unavailable VinodErma young Unavailable Unavailable VinodErma young Unavailable Unavailable VinodErma young Unavailable Unavailable VinodErma young Unavailable Unavailable VinodErma young Unavailable Unavailable Vinod, Daily MD Unavailable Unavailable Vinod, Daily MD Unavailable Unavailable Vinod, Daily MD Unavailable Unavailable Vinod, Daily MD Unavailable Unavailable Vinod, Daily MD Unavailable Unavailable Vinod, Daily MD Unavailable Unavailable Vinod, Daily MD Unavailable Unavailable Vinod, Daily MD Unavailable Unavailable Vinod, Daily MD Unavailable Unavailable Vinod, Daily MD Unavailable Unavailable Vinod, Daily MD Unavailable Unavailable Vinod, Daily MD Unavailable Unavailable Vinod, Daily MD Unavailable Unavailable Vinod, Daily MD Unavailable Unavailable Vinod, Daily MD Unavailable Unavailable Vinod, Daily MD Unavailable Unavailable Vinod, Daily MD Unavailable Unavailable Vinod, Daily MD Unavailable Unavailable Vinod, Daily MD Unavailable Unavailable Vinod, Daily MD Unavailable Unavailable Vinod, Daily MD Unavailable Unavailable Vinod, Daily MD Unavailable Unavailable Vinod, Daily MD Unavailable Unavailable Vinod, Daily MD Unavailable Unavailable Vinod, Daily MD Unavailable Unavailable Vinod, Daily MD Unavailable Unavailable Vinod, Daily MD Unavailable Unavailable Vinod, Daily MD Unavailable Unavailable Vinod, Daily MD Unavailable Unavailable Vinod, Daily MD Unavailable Unavailable Vinod, Daily MD Unavailable Unavailable Vinod, Daily MD Unavailable Unavailable Vinod, Daily MD Unavailable Unavailable Vinod, Daily MD Unavailable Unavailable Vinod, Daily MD Unavailable Unavailable Vinod, Daily MD Unavailable Unavailable Vinod, Daily MD Unavailable Unavailable Vinod, Daily MD Unavailable Unavailable [facility], [facility] Unavailable Unavailable Re-disclosure Warning The records that you are about to access may contain information from federally-assisted alcohol or drug abuse programs. If such information is present, then the following federally mandated warning applies: This information has been disclosed to you from records protected by federal confidentiality rules (42 CFR part 2). The federal rules prohibit you from making any further disclosure of this information unless further disclosure is expressly permitted by the written consent of the person to whom it pertains or as otherwise permitted by 42 CFR part 2. A general authorization for the release of medical or other information is NOT sufficient for this purpose. The Federal rules restrict any use of the information to criminally investigate or prosecute any alcohol or drug abuse patient.The records that you are about to access may contain highly sensitive health information, the redisclosure of which is protected by Article 27-F of the [place] State Public Health law. If you continue you may have access to information: Regarding HIV / AIDS; Provided by facilities licensed or operated by the [facility] Office of Mental Health; or Provided by the [facility] Office for People With Developmental Disabilities. If such information is present, then the following [facility] mandated warning applies: This information has been disclosed to you from confidential records which are protected by state law. State law prohibits you from making any further disclosure of this information without the specific written consent of the person to whom it pertains, or as otherwise permitted by law. Any unauthorized further disclosure in violation of state law may result in a fine or halfway sentence or both. A general authorization for the release of medical or other information is NOT sufficient authorization for further disc losure. Allergies and Adverse Reactions Type Description Substance Reaction Status Data Source(s ) Drug allergy Lamictal lamotrigine Unknown Active [facility] Rocephin Rocephin Rocephin Anaphylaxis Active eCW1 ([facility]) ceclor ceclor ceclor Anaphylaxis Active eCW1 ([facility]) Substance/Environmental Agent Allergy Substance/Environmenta l Agent Allergy lamotrigine SJS Severe MEDENT ([facility], ) Substance/Environmental Agent Allergy Substance/Environmenta l Agent Allergy Cefaclor MEDENT ([facility]) Substance/Environmental Agent Allergy Substance/Environmenta l Agent Allergy Cephalosporins ([id number]) MEDENT ([facility], ) Family History Family Member Name Family Member Gender Family Member Status Date o f Status Description Data Source(s) Unknown Unknown Problem MEDENT ([facility], ) father Encounters Encounter Providers Location Date Indications Data Source(s ) Office Visit, Est Pt., Level [address] [place] [address] 07/09/2020 12:00:00 AM EST eCW1 ([facility]) Unknown [address] [facility] [phone] 07/09/2020 12:00:00 AM EST eCW1 ([facility]) Unknown [address] [facility] [id number] 06/12/2020 12:00:00 AM EST eCW1 ([facility]) [place] [address] [facility] [address] 05/30/2020 12:00:00 AM EST eCW1 ([facility]) [place] [address] [facility] [address] 05/10/2020 12:00:00 AM EST eCW1 ([facility]) [place] [address] [facility] [address] 05/07/2020 12:00:00 AM EST eCW1 ([facility]) [place] [address] [facility] [address] 05/07/2020 12:00:00 AM EST eCW1 ([facility]) [place] [address] [facility] [address] 05/07/2020 12:00:00 AM EST eCW1 ([facility]) [place] [address] [facility] [address] 05/01/2020 12:00:00 AM EST eCW1 ([facility]) Unknown [address] [facility] [address] 05/01/2020 12:00:00 AM EST eCW1 ([facility]) Unknown [address] [facility] [address] 05/01/2020 12:00:00 AM EST eCW1 ([facility]) [place] [address] [facility] [address] 05/01/2020 12:00:00 AM EST eCW1 ([facility]) Unknown [address] [facility] [address] 05/01/2020 12:00:00 AM EST eCW1 ([facility]) Unknown [address] [facility] [address] 05/01/2020 12:00:00 AM EST eCW1 ([facility]) [place] [address] [facility] [address] 04/09/2020 12:00:00 AM EST eCW1 ([facility]) Outpatient Attender: Daily Brock MD Main office - [place] 03/05/2020 11:00:00 AM EDT MEDENT ([facility]) Outpatient Attender: CITLALY [facility] 02/29/2020 09:44:01 AM EDT [facility] Outpatient Attender: [facility] 02/21/2020 08:34:03 AM EDT [facility] Outpatient Attender: [facility] 02/21/2020 08:34:02 AM EDT [facility] Outpatient Attender: [facility] 02/17/2020 01:52:01 PM EDT [facility] Outpatient Attender: Daily Brock MD Main office - [place] 11/30/2019 10:15:00 AM EDT MEDENT ([facility]) Unknown [address] [facility], [facility] [address] 11/04/2019 12:00:00 AM EDT eCW1 ([facility]) Outpatient Attender: [facility] 10/12/2019 02:40:01 PM EDT [facility] Outpatient Attender: [facility] 10/12/2019 12:59:01 PM EDT [facility] [address] [place] [phone] 09/23/2019 12:00:00 AM EDT [facility]CW1 [facility]) Outpatient Attender: Daily Brock MD Main office - [place] 08/31/2019 11:45:00 AM EDT MEDENT ([facility]) Outpatient Attender: CITLALY [facility] 08/19/2019 08:02:26 PM [address]T [address] [address] 08/09/2019 12:00:00 AM EDT eCW1 ([facility]) Outpatient Attender: CITLALY [facility] 07/28/2019 04:11:00 PM EST [address] [address] 07/25/2019 12:00:00 AM EST eCW1 [facility] [address] [address] 07/21/2019 12:00:00 AM EST [facility]CW1 [facility]) Outpatient Att[facility]: [facility] 07/20/2019 03:17:00 PM [facility]/20/2019 02:26:00 PM [facility] Out[facility] 07/20/2019 02:25:00 PM [facility] Outpatient [facility] 07/20/2019 02:24:01 PM [facility] Outpatient [facility] 07/18/2019 08:46:01 AM [facility] Outpatient [facility] 07/15/2019 12:57:[address] [address] 07/13/2019 12:00:00 AM EST eCW1 ([facility]) [address] [address] 07/12/2019 12:00:00 AM EST eCW1 ([facility]) [facility] [address] [facility] [address] 07/06/2019 12:00:00 AM EST eCW1 ([facility]) Outpatient Attender: MIG[facility]EL [facility] 06/27/2019 01:26:03 PM [facility] [address] [facility] [address] 06/08/2019 12:00:00 AM EST eCW1 ([facility]) [place] [address] [facility] [address] 06/07/2019 12:00:00 AM EST eCW1 ([facility]) Immunizations Vaccine Date Status Description Data Source(s) influenza, recombinant, quadrIvalent,injectable, prese rvative free 05/07/2020 04:58:00 PM EST completed eCW1 ([facility]) influenza, recombinant, quadrIvalent,injectable, prese rvative free 05/07/2020 04:58:00 PM EST completed eCW1 ([facility]) influenza, recombinant, quadrIvalent,injectable, prese rvative free 05/07/2020 04:58:00 PM EST completed eCW1 ([facility]) influenza, recombinant, quadrIvalent,injectable, prese rvative free 05/07/2020 04:58:00 PM EST completed eCW1 ([facility]) influenza, recombinant, quadrIvalent,injectable, prese rvative free 05/07/2020 04:58:00 PM EST completed eCW1 ([facility]) influenza, recombinant, quadrIvalent,injectable, prese rvative free 05/07/2020 04:58:00 PM EST completed eCW1 ([facility]) influenza, recombinant, quadrIvalent,injectable, prese rvative free 05/07/2020 04:58:00 PM EST completed eCW1 ([facility]) influenza, recombinant, quadrIvalent,injectable, prese rvative free 05/07/2020 04:58:00 PM EST completed eCW1 ([facility]) Medications Medication Brand Name Start Date Product Form Dose Route Admi nistrative Instructions Pharmacy Instructions Status Indications Reaction Description Data Source(s) 5 mg/gram (0.5 %) 07/09/2020 12:00:00 AM EST ointment 3 APPLY A SMALL RIBBON TO LOWER EYELIDS THREE TIMES A DAY FOR 7 DAYS APPLY A SMALL RIBBON TO LOWER EYELIDS THREE TIMES A DAY FOR 7 DAYS SOLD: 07/09/2020 [facility] Erythromycin 0.005 MG/MG Ophthalmic Ointment Erythromy oleksandr 5 MG/GM Erythromycin 5 MG/GM 07/09/2020 12:00:00 AM EST active Erythromycin 5 MG/GM eCW1 ([facility]) Erythromycin 0.005 MG/MG Ophthalmic Ointment Erythromy oleksandr 5 MG/GM Erythromycin 5 MG/GM 07/09/2020 12:00:00 AM EST active Erythromycin 5 MG/GM eCW1 ([facility]) 20 mg 07/06/2020 12:00:00 AM EST capsule 21 TAKE THREE CAPSULES BY MOUTH EVERY DAY FOR DEPRESSION TAKE THREE CAPSULES BY MOUTH EVERY DAY FOR DEPRESSION SOLD: 07/13/2020 [facility] 20 mg 07/06/2020 12:00:00 AM EST capsule 21 TAKE THREE CAPSULES BY MOUTH EVERY DAY FOR DEPRESSION TAKE THREE CAPSULES BY MOUTH EVERY DAY FOR DEPRESSION SOLD: 07/06/2020 [facility] 1 mg 07/06/2020 12:00:00 AM EST capsule 7 TAKE ONE CAPSULE BY MOUTH AT BEDTIME FOR NIGHTMARES TAKE ONE CAPSULE BY MOUTH AT BEDTIME FOR NIGHTMARES SO LD: 07/06/2020 [facility] 1 mg 07/06/2020 12:00:00 AM EST capsule 7 TAKE ONE CAPSULE BY MOUTH AT BEDTIME FOR NIGHTMARES TAKE ONE CAPSULE BY MOUTH AT BEDTIME FOR NIGHTMARES SO LD: 07/13/2020 [facility] 10 mg 07/06/2020 12:00:00 AM EST tablet 14 TAKE TWO TABLETS BY MOUTH AT BEDTIME FOR HALLUCINATIONS TAKE TWO TABLETS BY MOUTH AT BEDTIME FOR HALLUCINATIONS SOLD: 07/06/2020 [facility] 10 mg 07/06/2020 12:00:00 AM EST tablet 14 TAKE TWO TABLETS BY MOUTH AT BEDTIME FOR HALLUCINATIONS TAKE TWO TABLETS BY MOUTH AT BEDTIME FOR HALLUCINATIONS SOLD: 07/13/2020 [facility] 10 mg 06/30/2020 12:00:00 AM EST tablet 90 TAKE 1 AND 1/2 TABLETS BY MOUTH TWICE A DAY MAXIMUM DAILY DOSE = 3 TAKE 1 AND 1/2 TABLETS BY MOUTH TWICE A DAY MAXIMUM DAILY DOSE = 3 SOLD: 06/30/2020 [facility] 10 mg 06/01/2020 12:00:00 AM EST tablet 90 TAKE ONE AND ONE-HALF TABLETS BY MOUTH TWICE A DAY MAXIMUM DAILY DOSE = 3 TABLETS TAKE ONE AND ONE-HALF TABLETS BY MOUTH TWICE A DAY MAXIMUM DAILY DOSE = 3 TABLETS SOLD: 06/02/2020 [facility] 600 mg(1,500mg) -400 unit 05/15/2020 12:00:00 AM EST tablet 60 TAKE ONE TABLET BY MOUTH TWICE A DAY WITH FOOD TAKE ONE TABLET BY MOUTH TWICE A DAY WIT H FOOD SOLD: 05/17/2020 [facility] Sennosides-Docusate Sodium 8.6-50 MG UNK 05/07/2020 12:00:00 AM EST active Sennosides-Docusate Sodium 8.6-5 0 MG eCW1 ([facility]) Sennosides-Docusate Sodium 8.6-50 MG UNK 05/07/2020 12:00:00 AM EST active Sennosides-Docusate Sodium 8.6-5 0 MG eCW1 ([facility]) Sennosides-Docusate Sodium 8.6-50 MG UNK 05/07/2020 12:00:00 AM EST suspended Sennosides-Docusate Sodium 8.6-5 0 MG eCW1 ([facility]) Sennosides-Docusate Sodium 8.6-50 MG UNK 05/07/2020 12:00:00 AM EST suspended Sennosides-Docusate Sodium 8.6-5 0 MG eCW1 ([facility]) Sennosides-Docusate Sodium 8.6-50 MG UNK 05/07/2020 12:00:00 AM EST active Sennosides-Docusate Sodium 8.6-5 0 MG eCW1 ([facility]) Sennosides-Docusate Sodium 8.6-50 MG UNK 05/07/2020 12:00:00 AM EST active Sennosides-Docusate Sodium 8.6-5 0 MG eCW1 ([facility]) Sennosides-Docusate Sodium 8.6-50 MG UNK 05/07/2020 12:00:00 AM EST active Sennosides-Docusate Sodium 8.6-5 0 MG eCW1 ([facility]) Sennosides-Docusate Sodium 8.6-50 MG UNK 05/07/2020 12:00:00 AM EST active Sennosides-Docusate Sodium 8.6-5 0 MG eCW1 ([facility]) 10 mg 05/03/2020 12:00:00 AM EST tablet 90 TAKE ONE AND ONE HALF TABLETS TWO TIMES A DAY MAXIMUM DAILY DOSE = 3 TABLETS TAKE ONE AND ONE HALF TABLETS TWO TIMES A DAY MAXIMUM DAILY DOSE = 3 TABLETS SOLD: 05/03/2020 [facility] 0.5 mg 04/27/2020 12:00:00 AM EST tablet 7 TAKE ONE TABLET BY MOUTH EVERY DAY TAKE ONE TABLET BY MOUTH EVERY DAY SOLD: 04/28/2020 [facility] 0.5 mg 04/27/2020 12:00:00 AM EST tablet 7 TAKE ONE TABLET BY MOUTH EVERY DAY TAKE ONE TABLET BY MOUTH EVERY DAY SOLD: 05/03/2020 [facility] 0.5 mg 04/27/2020 12:00:00 AM EST tablet 7 TAKE ONE TABLET BY MOUTH EVERY DAY TAKE ONE TABLET BY MOUTH EVERY DAY SOLD: 05/10/2020 [facility] 0.5 mg 04/27/2020 12:00:00 AM EST tablet 7 TAKE ONE TABLET BY MOUTH EVERY DAY TAKE ONE TABLET BY MOUTH EVERY DAY SOLD: 05/17/2020 [facility] 0.5 mg 04/27/2020 12:00:00 AM EST tablet 7 TAKE ONE TABLET BY MOUTH EVERY DAY TAKE ONE TABLET BY MOUTH EVERY DAY SOLD: 05/24/2020 [facility] 10 mg 04/10/2020 12:00:00 AM EST tablet 30 TAKE ONE TABLET BY MOUTH EVERY DAY TAKE ONE TABLET BY MOUTH EVERY DAY SOLD: 05/10/2020 [facility] 10 mg 04/10/2020 12:00:00 AM EST tablet 30 TAKE ONE TABLET BY MOUTH EVERY DAY TAKE ONE TABLET BY MOUTH EVERY DAY SOLD: 04/13/2020 [facility] 10 mg 04/04/2020 12:00:00 AM EST tablet 90 TAKE 1 AND 1/2 TABLETS BY MOUTH TWICE A DAY MAXIMUM DAILY DOSE = 3 TAKE 1 AND 1/2 TABLETS BY MOUTH TWICE A DAY MAXIMUM DAILY DOSE = 3 SOLD: 04/04/2020 [facility] 100 mg 04/03/2020 12:00:00 AM EST capsule 120 TAKE 2 CAPSULES BY MOUTH TWO TIMES A DAY TAKE 2 CAPSULES BY MOUTH TWO TIMES A DAY SOLD: 06/30/2020 [facility] 100 mg 04/03/2020 12:00:00 AM EST capsule 120 TAKE 2 CAPSULES BY MOUTH TWO TIMES A DAY TAKE 2 CAPSULES BY MOUTH TWO TIMES A DAY SOLD: 04/04/2020 [facility] 100 mg 04/03/2020 12:00:00 AM EST capsule 120 TAKE 2 CAPSULES BY MOUTH TWO TIMES A DAY TAKE 2 CAPSULES BY MOUTH TWO TIMES A DAY SOLD: 05/10/2020 [facility] 10 mg 03/05/2020 12:00:00 AM EDT tablet 90 TAKE 1 AND 1/2 TABLETS BY MOUTH TWICE A DAY MAXIMUM DAILY DOSE = 3 TABLETS TAKE 1 AND 1/2 TABLETS BY MOUTH TWICE A DAY MAXIMUM DAILY DOSE = 3 TABLETS SOLD: 03/06/2020 [facility] 0.5 mg 03/03/2020 12:00:00 AM EDT tablet 60 TAKE ONE TABLET BY MOUTH TWICE A DAY IN THE MORNING AND IN THE EVENING TAKE ONE TABLET BY MOUTH TWICE A DAY IN THE MORNING AND IN THE EVENING SOLD: 03/06/2020 [facility] 25 mcg 02/23/2020 12:00:00 AM EDT tablet 90 TAKE ONE TABLET BY MOUTH EVERY DAY TAKE ONE TABLET BY MOUTH EVERY DAY SOLD: 02/24/2020 [facility] atorvastatin 20 MG Oral Tablet ATORVASTATIN CALCIUM 02/23/2020 1 2:00:00 AM EDT tablet 90 TAKE ONE TABLET BY MOUTH EVERY D AY TAKE ONE TABLET BY MOUTH EVERY DAY SOLD: 02/24/2020 [facility] montelukast 10 MG Oral Tablet MONTELUKAST SODIUM 02/23/2020 12:0 0:00 AM EDT tablet 90 TAKE ONE TABLET BY MOUTH AT BEDT DI TAKE ONE TABLET BY MOUTH AT BEDTIME SOLD: 02/24/2020 [facility] 25 mcg 02/23/2020 12:00:00 AM EDT tablet 90 TAKE ONE TABLET BY MOUTH EVERY DAY TAKE ONE TABLET BY MOUTH EVERY DAY SOLD: 05/24/2020 [facility] atorvastatin 20 MG Oral Tablet ATORVASTATIN CALCIUM 02/23/2020 1 2:00:00 AM EDT tablet 90 TAKE ONE TABLET BY MOUTH EVERY D AY TAKE ONE TABLET BY MOUTH EVERY DAY SOLD: 05/24/2020 [facility] 300 mg 02/21/2020 12:00:00 AM EDT capsule 28 TAKE ONE CAPSULE BY MOUTH EVERY 6 HOURS UNTIL FINISHED TAKE ONE CAPSULE BY MOUTH EVERY 6 HOURS UNTIL FINISHED SOLD: 02/21/2020 [facility] 1,250 mcg (50,000 unit) 02/17/2020 12:00:00 AM EDT capsule 6 TAKE 1 CAPSULE BY MOUTH EVERY 2 WEEKS TAKE 1 CAPSULE BY MOUTH EVERY 2 WEEKS SOLD: 05/10/2020 [facility] 1,250 mcg (50,000 unit) 02/17/2020 12:00:00 AM EDT capsule 6 TAKE 1 CAPSULE BY MOUTH EVERY 2 WEEKS TAKE 1 CAPSULE BY MOUTH EVERY 2 WEEKS SOLD: 02/21/2020 [facility] 875 mg 02/02/2020 12:00:00 AM EDT tablet 20 TAKE 1 TABLET BY MOUTH EVERY 12 HOURS FOR 10 DAYS TAKE 1 TABLET BY MOUTH EVERY 12 HOURS FOR 10 DAYS SOLD : 02/02/2020 [facility] 10 mg 02/01/2020 12:00:00 AM EDT tablet 90 TAKE 1 & 1/2 TABLETS BY MOUTH TWO TIMES A DAY MAXIMUM DAILY DOSE = 3 TABLETS TAKE 1 & 1/2 TABLETS BY MOUTH TWO TIMES A DAY MAXIMUM DAILY DOSE = 3 TABLETS SOLD: 02/01/2020 [facility] 10 mg 01/01/2020 12:00:00 AM EDT tablet 90 TAKE ONE AND ONE HALF TABLETS BY MOUTH TWO TIMES A DAY MAXIMUM DAILY DOSE = 3 TABLETS TAKE ONE AND ONE HALF TABLETS BY MOUTH TWO TIMES A DAY MAXIMUM DAILY DOSE = 3 TABLETS SOLD: 01/02/2020 [facility] 10 mg 12/30/2019 12:00:00 AM EDT tablet 30 TAKE ONE TABLET BY MOUTH EVERY DAY TAKE ONE TABLET BY MOUTH EVERY DAY SOLD: 01/31/2020 [facility] 10 mg 12/30/2019 12:00:00 AM EDT tablet 30 TAKE ONE TABLET BY MOUTH EVERY DAY TAKE ONE TABLET BY MOUTH EVERY DAY SOLD: 01/02/2020 [facility] 10 mg 12/30/2019 12:00:00 AM EDT tablet 30 TAKE ONE TABLET BY MOUTH EVERY DAY TAKE ONE TABLET BY MOUTH EVERY DAY SOLD: 02/27/2020 [facility] 500 mg 12/12/2019 12:00:00 AM EDT capsule 20 TAKE ONE CAPSULE BY MOUTH TWICE A DAY FOR 10 DAYS TAKE ONE CAPSULE BY MOUTH TWICE A DAY FOR 10 DAYS SOLD : 12/12/2019 [facility] 600 mg(1,500mg) -400 unit 12/04/2019 12:00:00 AM EDT tablet 60 TAKE ONE TABLET BY MOUTH TWICE A DAY WITH FOOD TAKE ONE TABLET BY MOUTH TWICE A DAY WIT H FOOD SOLD: 12/04/2019 [facility] 600 mg(1,500mg) -400 unit 12/04/2019 12:00:00 AM EDT tablet 60 TAKE ONE TABLET BY MOUTH TWICE A DAY WITH FOOD TAKE ONE TABLET BY MOUTH TWICE A DAY WIT H FOOD SOLD: 04/23/2020 [facility] 600 mg(1,500mg) -400 unit 12/04/2019 12:00:00 AM EDT tablet 60 TAKE ONE TABLET BY MOUTH TWICE A DAY WITH FOOD TAKE ONE TABLET BY MOUTH TWICE A DAY WIT H FOOD SOLD: 01/02/2020 [facility] 600 mg(1,500mg) -400 unit 12/04/2019 12:00:00 AM EDT tablet 60 TAKE ONE TABLET BY MOUTH TWICE A DAY WITH FOOD TAKE ONE TABLET BY MOUTH TWICE A DAY WIT H FOOD SOLD: 02/01/2020 [facility] 600 mg(1,500mg) -400 unit 12/04/2019 12:00:00 AM EDT tablet 60 TAKE ONE TABLET BY MOUTH TWICE A DAY WITH FOOD TAKE ONE TABLET BY MOUTH TWICE A DAY WIT H FOOD SOLD: 03/06/2020 [facility] 10 mg 12/03/2019 12:00:00 AM EDT tablet 90 TAKE ONE AND ONE-HALF TABLETS BY MOUTH TWICE A DAY MAXIMUM DAILY DOSE = 3 TABLETS (30 MG) TAKE ONE AND ONE-HALF TABLETS BY MOUTH TWICE A DAY MAXIMUM DAILY DOSE = 3 TABLETS (30 MG) SOLD: 12/03/2019 [facility] Ketoconazole 20 MG/ML Medicated Shampoo KETOCONAZOLE 12/01/19 12:00:00 AM EDT shampoo 120 USE DIRECTED THRE E TIMES A WEEK TO ENTIRE BODY LEAVE ON FOR 5 MINUTES USE DIRECTED THREE TIMES A WEEK TO EN TIRE BODY LEAVE ON FOR 5 MINUTES SOLD: 04/23/2020 [facility] Ketoconazole 20 MG/ML Medicated Shampoo KETOCONAZOLE 12/01/19 12:00:00 AM EDT shampoo 120 USE DIRECTED THRE E TIMES A WEEK TO ENTIRE BODY LEAVE ON FOR 5 MINUTES USE DIRECTED THREE TIMES A WEEK TO EN TIRE BODY LEAVE ON FOR 5 MINUTES SOLD: 01/31/2020 [facility] Ketoconazole 20 MG/ML Medicated Shampoo KETOCONAZOLE 12/01/19 12:00:00 AM EDT shampoo 120 USE DIRECTED THRE E TIMES A WEEK TO ENTIRE BODY LEAVE ON FOR 5 MINUTES USE DIRECTED THREE TIMES A WEEK TO EN TIRE BODY LEAVE ON FOR 5 MINUTES SOLD: 03/06/2020 [facility] Ketoconazole 20 MG/ML Medicated Shampoo KETOCONAZOLE 12/01/19 12:00:00 AM EDT shampoo 120 USE DIRECTED THRE E TIMES A WEEK TO ENTIRE BODY LEAVE ON FOR 5 MINUTES USE DIRECTED THREE TIMES A WEEK TO EN TIRE BODY LEAVE ON FOR 5 MINUTES SOLD: 01/02/2020 [facility] Ketoconazole 20 MG/ML Medicated Shampoo KETOCONAZOLE 12/01/19 12:00:00 AM EDT shampoo 120 USE DIRECTED THRE E TIMES A WEEK TO ENTIRE BODY LEAVE ON FOR 5 MINUTES USE DIRECTED THREE TIMES A WEEK TO EN TIRE BODY LEAVE ON FOR 5 MINUTES SOLD: 12/03/2019 [facility] 10 mg 11/06/2019 12:00:00 AM EDT tablet 90 TAKE 1 AND 1/2 TABLETS BY MOUTH TWO TIMES A DAY MAXIMUM DAILY DOSE = 3 TAKE 1 AND 1/2 TABLETS BY MOUTH TWO TIME S A DAY MAXIMUM DAILY DOSE = 3 SOLD: 11/07/2019 [facility] montelukast 10 MG Oral Tablet MONTELUKAST SODIUM 11/05/2019 12:0 0:00 AM EDT tablet 30 TAKE ONE TABLET BY MOUTH EVERY D AY AT BEDTIME TAKE ONE TABLET BY MOUTH EVERY DAY AT BEDTIME SOLD: 01/31/2020 [facility] 25 mcg 11/05/2019 12:00:00 AM EDT tablet 30 TAKE ONE TABLET BY MOUTH EVERY MORNING ON AN EMPTY STOMACH TAKE ONE TABLET BY MOUTH EVERY MORNING O N AN EMPTY STOMACH SOLD: 11/07/2019 [facility] montelukast 10 MG Oral Tablet MONTELUKAST SODIUM 11/05/2019 12:0 0:00 AM EDT tablet 30 TAKE ONE TABLET BY MOUTH EVERY D AY AT BEDTIME TAKE ONE TABLET BY MOUTH EVERY DAY AT BEDTIME SOLD: 01/02/2020 [facility] montelukast 10 MG Oral Tablet MONTELUKAST SODIUM 11/05/2019 12:0 0:00 AM EDT tablet 30 TAKE ONE TABLET BY MOUTH EVERY D AY AT BEDTIME TAKE ONE TABLET BY MOUTH EVERY DAY AT BEDTIME SOLD: 11/07/2019 [facility] montelukast 10 MG Oral Tablet MONTELUKAST SODIUM 11/05/2019 12:0 0:00 AM EDT tablet 30 TAKE ONE TABLET BY MOUTH EVERY D AY AT BEDTIME TAKE ONE TABLET BY MOUTH EVERY DAY AT BEDTIME SOLD: 12/04/2019 [facility] 25 mcg 11/05/2019 12:00:00 AM EDT tablet 30 TAKE ONE TABLET BY MOUTH EVERY MORNING ON AN EMPTY STOMACH TAKE ONE TABLET BY MOUTH EVERY MORNING O N AN EMPTY STOMACH SOLD: 12/04/2019 [facility] 50 mcg/actuation 11/05/2019 12:00:00 AM EDT spray,suspension 16 SPRAY 2 SPRAYS IN EACH NOSTRIL EVERY MORNING SPRAY 2 SPRAYS IN EACH NOSTRIL EVERY MORNING SOLD: 01/02/2020 [facility] 50 mcg/actuation 11/05/2019 12:00:00 AM EDT spray,suspension 16 SPRAY 2 SPRAYS IN EACH NOSTRIL EVERY MORNING SPRAY 2 SPRAYS IN EACH NOSTRIL EVERY MORNING SOLD: 12/04/2019 [facility] 50 mcg/actuation 11/05/2019 12:00:00 AM EDT spray,suspension 16 SPRAY 2 SPRAYS IN EACH NOSTRIL EVERY MORNING SPRAY 2 SPRAYS IN EACH NOSTRIL EVERY MORNING SOLD: 11/07/2019 [facility] 25 mcg 11/05/2019 12:00:00 AM EDT tablet 30 TAKE ONE TABLET BY MOUTH EVERY MORNING ON AN EMPTY STOMACH TAKE ONE TABLET BY MOUTH EVERY MORNING O N AN EMPTY STOMACH SOLD: 01/02/2020 [facility] 50 mcg/actuation 11/05/2019 12:00:00 AM EDT spray,suspension 16 SPRAY 2 SPRAYS IN EACH NOSTRIL EVERY MORNING SPRAY 2 SPRAYS IN EACH NOSTRIL EVERY MORNING SOLD: 01/31/2020 [facility] 25 mcg 11/05/2019 12:00:00 AM EDT tablet 30 TAKE ONE TABLET BY MOUTH EVERY MORNING ON AN EMPTY STOMACH TAKE ONE TABLET BY MOUTH EVERY MORNING O N AN EMPTY STOMACH SOLD: 01/31/2020 [facility] 1 % 11/04/2019 12:00:00 AM EDT cream 60 APPLY TO AFFECTED AREA(S) TWO TIMES A DAY FOR 14 DAYS WITH FLARES APPLY TO AFFECTED AREA(S) TWO TIMES A DA Y FOR 14 DAYS WITH FLARES SOLD: 01/31/2020 [facility] 1 % 11/04/2019 12:00:00 AM EDT cream 60 APPLY TO AFFECTED AREA(S) TWO TIMES A DAY FOR 14 DAYS WITH FLARES APPLY TO AFFECTED AREA(S) TWO TIMES A DA Y FOR 14 DAYS WITH FLARES SOLD: 12/04/2019 [facility] atorvastatin 20 MG Oral Tablet ATORVASTATIN CALCIUM 11/04/2019 1 2:00:00 AM EDT tablet 30 TAKE ONE TABLET BY MOUTH EVERY D AY TAKE ONE TABLET BY MOUTH EVERY DAY SOLD: 01/31/2020 [facility] 1 % 11/04/2019 12:00:00 AM EDT cream 60 APPLY TO AFFECTED AREA(S) TWO TIMES A DAY FOR 14 DAYS WITH FLARES APPLY TO AFFECTED AREA(S) TWO TIMES A DA Y FOR 14 DAYS WITH FLARES SOLD: 03/06/2020 [facility] atorvastatin 20 MG Oral Tablet ATORVASTATIN CALCIUM 11/04/2019 1 2:00:00 AM EDT tablet 30 TAKE ONE TABLET BY MOUTH EVERY D AY TAKE ONE TABLET BY MOUTH EVERY DAY SOLD: 12/04/2019 [facility] 1 % 11/04/2019 12:00:00 AM EDT cream 60 APPLY TO AFFECTED AREA(S) TWO TIMES A DAY FOR 14 DAYS WITH FLARES APPLY TO AFFECTED AREA(S) TWO TIMES A DA Y FOR 14 DAYS WITH FLARES SOLD: 01/02/2020 [facility] 1 % 11/04/2019 12:00:00 AM EDT cream 60 APPLY TO AFFECTED AREA(S) TWO TIMES A DAY FOR 14 DAYS WITH FLARES APPLY TO AFFECTED AREA(S) TWO TIMES A DA Y FOR 14 DAYS WITH FLARES SOLD: 11/05/2019 [facility] atorvastatin 20 MG Oral Tablet ATORVASTATIN CALCIUM 11/04/2019 1 2:00:00 AM EDT tablet 30 TAKE ONE TABLET BY MOUTH EVERY D AY TAKE ONE TABLET BY MOUTH EVERY DAY SOLD: 11/05/2019 [facility] atorvastatin 20 MG Oral Tablet ATORVASTATIN CALCIUM 11/04/2019 1 2:00:00 AM EDT tablet 30 TAKE ONE TABLET BY MOUTH EVERY D AY TAKE ONE TABLET BY MOUTH EVERY DAY SOLD: 01/02/2020 [facility] 10 mg 10/08/2019 12:00:00 AM EDT tablet 90 TAKE 1 & 1/2 TABLETS BY MOUTH TWO TIMES A DAY MAXIMUM DAILY DOSE = 3 TAKE 1 & 1/2 TABLETS BY MOUTH TWO TIMES A DAY MAXIMUM DAILY DOSE = 3 SOLD: 10/08/2019 [facility] 100 mg 10/06/2019 12:00:00 AM EDT capsule 120 TAKE TWO CAPSULES BY MOUTH TWICE A DAY TAKE TWO CAPSULES BY MOUTH TWICE A DAY SOLD: 10/07/2019 [facility] 100 mg 10/06/2019 12:00:00 AM EDT capsule 120 TAKE TWO CAPSULES BY MOUTH TWICE A DAY TAKE TWO CAPSULES BY MOUTH TWICE A DAY SOLD: 11/05/2019 [facility] 100 mg 10/06/2019 12:00:00 AM EDT capsule 120 TAKE TWO CAPSULES BY MOUTH TWICE A DAY TAKE TWO CAPSULES BY MOUTH TWICE A DAY SOLD: 01/02/2020 [facility] 100 mg 10/06/2019 12:00:00 AM EDT capsule 120 TAKE TWO CAPSULES BY MOUTH TWICE A DAY TAKE TWO CAPSULES BY MOUTH TWICE A DAY SOLD: 12/04/2019 [facility] 100 mg 10/06/2019 12:00:00 AM EDT capsule 120 TAKE TWO CAPSULES BY MOUTH TWICE A DAY TAKE TWO CAPSULES BY MOUTH TWICE A DAY SOLD: 03/06/2020 [facility] 100 mg 10/06/2019 12:00:00 AM EDT capsule 120 TAKE TWO CAPSULES BY MOUTH TWICE A DAY TAKE TWO CAPSULES BY MOUTH TWICE A DAY SOLD: 01/31/2020 [facility] 10 mg 09/29/2019 12:00:00 AM EDT tablet 30 TAKE ONE TABLET BY MOUTH EVERY DAY TAKE ONE TABLET BY MOUTH EVERY DAY SOLD: 12/01/2019 [facility] 10 mg 09/29/2019 12:00:00 AM EDT tablet 30 TAKE ONE TABLET BY MOUTH EVERY DAY TAKE ONE TABLET BY MOUTH EVERY DAY SOLD: 10/05/2019 [facility] 10 mg 09/29/2019 12:00:00 AM EDT tablet 30 TAKE ONE TABLET BY MOUTH EVERY DAY TAKE ONE TABLET BY MOUTH EVERY DAY SOLD: 10/30/2019 [facility] 2.5 mg /3 mL (0.083 %) 09/24/2019 12:00:00 AM EDT solu tion for nebulization 90 USE 1 VIAL VIA NEBULIZER EVERY 6 HOURS A S NEEDED FOR SHORTNESS OF BREATH USE 1 VIAL VIA NEBULIZER EVERY 6 HOURS NEEDED FOR SHORTNESS OF BREATH SOLD: 11/07/2019 [facility] 2.5 mg /3 mL (0.083 %) 09/24/2019 12:00:00 AM EDT solu tion for nebulization 90 USE 1 VIAL VIA NEBULIZER EVERY 6 HOURS A S NEEDED FOR SHORTNESS OF BREATH USE 1 VIAL VIA NEBULIZER EVERY 6 HOURS NEEDED FOR SHORTNESS OF BREATH SOLD: 01/02/2020 [facility] 2.5 mg /3 mL (0.083 %) 09/24/2019 12:00:00 AM EDT solu tion for nebulization 90 USE 1 VIAL VIA NEBULIZER EVERY 6 HOURS A S NEEDED FOR SHORTNESS OF BREATH USE 1 VIAL VIA NEBULIZER EVERY 6 HOURS NEEDED FOR SHORTNESS OF BREATH SOLD: 09/26/2019 [facility] 10 mg 09/09/2019 12:00:00 AM EDT tablet 90 TAKE 1 & 1/2 TABLETS BY MOUTH TWO TIMES A DAY MAXIMUM DAILY DOSE = 3 TAKE 1 & 1/2 TABLETS BY MOUTH TWO TIMES A DAY MAXIMUM DAILY DOSE = 3 SOLD: 09/10/2019 [facility] 10 mg 08/11/2019 12:00:00 AM EDT tablet 90 TAKE ONE AND ONE-HALF TABLETS BY MOUTH TWICE A DAY MAXIMUM DAILY DOSE = 3 TABLETS TAKE ONE AND ONE-HALF TABLETS BY MOUTH TWICE A DAY MAXIMUM DAILY DOSE = 3 TABLETS SOLD: 08/11/2019 [facility] 10 mg 07/14/2019 12:00:00 AM EST tablet 90 TAKE ONE AND ONE-HALF TABLETS BY MOUTH TWICE A DAY, MAXIMUM DAILY DOSE = 3 TAKE ONE AND ONE-HALF TABLETS BY MOUTH TWICE A DAY, MAXIMUM DAILY DOSE = 3 SOLD: 07/15/2019 [facility] atorvastatin 20 MG Oral Tablet ATORVASTATIN CALCIUM 07/13/2019 1 2:00:00 AM EST tablet 30 TAKE ONE TABLET BY MOUTH EVERY D AY TAKE ONE TABLET BY MOUTH EVERY DAY SOLD: 07/15/2019 [facility] atorvastatin 20 MG Oral Tablet ATORVASTATIN CALCIUM 07/13/2019 1 2:00:00 AM EST tablet 30 TAKE ONE TABLET BY MOUTH EVERY D AY TAKE ONE TABLET BY MOUTH EVERY DAY SOLD: 08/08/2019 [facility] atorvastatin 20 MG Oral Tablet ATORVASTATIN CALCIUM 07/13/2019 1 2:00:00 AM EST tablet 30 TAKE ONE TABLET BY MOUTH EVERY D AY TAKE ONE TABLET BY MOUTH EVERY DAY SOLD: 10/07/2019 [facility] atorvastatin 20 MG Oral Tablet ATORVASTATIN CALCIUM 07/13/2019 1 2:00:00 AM EST tablet 30 TAKE ONE TABLET BY MOUTH EVERY D AY TAKE ONE TABLET BY MOUTH EVERY DAY SOLD: 09/08/2019 [facility] Ketoconazole 20 MG/ML Medicated Shampoo KETOCONAZOLE 07/08/19 20 12:00:00 AM EST shampoo 120 USE DIRECTED TO E NTIRE BODY 3 TIMES PER WEEK; LEAVE ON FOR 5 MINUTES USE DIRECTED TO ENTIRE BODY 3 TIMES PER WEEK; LEAVE ON FOR 5 MINUTES SOLD: 08/08/2019 [facility] 25 mcg 07/08/2019 12:00:00 AM EST tablet 30 TAKE ONE TABLET BY MOUTH EVERY MORNING ON AN EMPTY STOMACH TAKE ONE TABLET BY MOUTH EVERY MORNING O N AN EMPTY STOMACH SOLD: 10/07/2019 [facility] 1,250 mcg (50,000 unit) 07/08/2019 12:00:00 AM EST capsule 6 TAKE ONE CAPSULE BY MOUTH EVERY 14 DAYS TAKE ONE CAPSULE BY MOUTH EVERY 14 DAYS SOLD: 10/08/2019 [facility] montelukast 10 MG Oral Tablet MONTELUKAST SODIUM 07/08/2019 12:0 0:00 AM EST tablet 30 TAKE ONE TABLET BY MOUTH AT BEDT DI TAKE ONE TABLET BY MOUTH AT BEDTIME SOLD: 08/08/2019 [facility] 10 mg 07/08/2019 12:00:00 AM EST tablet 30 TAKE ONE TABLET BY MOUTH EVERY DAY TAKE ONE TABLET BY MOUTH EVERY DAY SOLD: 08/10/2019 [facility] montelukast 10 MG Oral Tablet MONTELUKAST SODIUM 07/08/2019 12:0 0:00 AM EST tablet 30 TAKE ONE TABLET BY MOUTH AT BEDT DI TAKE ONE TABLET BY MOUTH AT BEDTIME SOLD: 10/08/2019 [facility] Ketoconazole 20 MG/ML Medicated Shampoo KETOCONAZOLE 07/08/19 12:00:00 AM EST shampoo 120 USE DIRECTED TO E NTIRE BODY 3 TIMES PER WEEK; LEAVE ON FOR 5 MINUTES USE DIRECTED TO ENTIRE BODY 3 TIMES PER WEEK; LEAVE ON FOR 5 MINUTES SOLD: 10/07/2019 [facility] 25 mcg 07/08/2019 12:00:00 AM EST tablet 30 TAKE ONE TABLET BY MOUTH EVERY MORNING ON AN EMPTY STOMACH TAKE ONE TABLET BY MOUTH EVERY MORNING O N AN EMPTY STOMACH SOLD: 07/09/2019 [facility] Ketoconazole 20 MG/ML Medicated Shampoo KETOCONAZOLE 07/08/19 12:00:00 AM EST shampoo 120 USE DIRECTED TO E NTIRE BODY 3 TIMES PER WEEK; LEAVE ON FOR 5 MINUTES USE DIRECTED TO ENTIRE BODY 3 TIMES PER WEEK; LEAVE ON FOR 5 MINUTES SOLD: 07/09/2019 [facility] 1,250 mcg (50,000 unit) 07/08/2019 12:00:00 AM EST capsule 6 TAKE ONE CAPSULE BY MOUTH EVERY 14 DAYS TAKE ONE CAPSULE BY MOUTH EVERY 14 DAYS SOLD: 07/09/2019 [facility] montelukast 10 MG Oral Tablet MONTELUKAST SODIUM 07/08/2019 12:0 0:00 AM EST tablet 30 TAKE ONE TABLET BY MOUTH AT BEDT DI TAKE ONE TABLET BY MOUTH AT BEDTIME SOLD: 09/08/2019 [facility] 25 mcg 07/08/2019 12:00:00 AM EST tablet 30 TAKE ONE TABLET BY MOUTH EVERY MORNING ON AN EMPTY STOMACH TAKE ONE TABLET BY MOUTH EVERY MORNING O N AN EMPTY STOMACH SOLD: 09/08/2019 [facility] montelukast 10 MG Oral Tablet MONTELUKAST SODIUM 07/08/2019 12:0 0:00 AM EST tablet 30 TAKE ONE TABLET BY MOUTH AT BEDT DI TAKE ONE TABLET BY MOUTH AT BEDTIME SOLD: 07/09/2019 [facility] 50 mcg/actuation 07/08/2019 12:00:00 AM EST spray,suspension 16 USE 2 SPRAYS IN EACH NOSTRIL ONCE DAILY IN THE MORNING USE 2 SPRAYS IN EACH NOSTRIL ONCE DAILY IN THE MORNING SOLD: 07/09/2019 [facility] 25 mcg 07/08/2019 12:00:00 AM EST tablet 30 TAKE ONE TABLET BY MOUTH EVERY MORNING ON AN EMPTY STOMACH TAKE ONE TABLET BY MOUTH EVERY MORNING O N AN EMPTY STOMACH SOLD: 08/08/2019 [facility] 50 mcg/actuation 07/08/2019 12:00:00 AM EST spray,suspension 16 USE 2 SPRAYS IN EACH NOSTRIL ONCE DAILY IN THE MORNING USE 2 SPRAYS IN EACH NOSTRIL ONCE DAILY IN THE MORNING SOLD: 08/08/2019 [facility] 10 mg 07/08/2019 12:00:00 AM EST tablet 30 TAKE ONE TABLET BY MOUTH EVERY DAY TAKE ONE TABLET BY MOUTH EVERY DAY SOLD: 09/08/2019 [facility] 50 mcg/actuation 07/08/2019 12:00:00 AM EST spray,suspension 16 USE 2 SPRAYS IN EACH NOSTRIL ONCE DAILY IN THE MORNING USE 2 SPRAYS IN EACH NOSTRIL ONCE DAILY IN THE MORNING SOLD: 09/08/2019 [facility] 50 mcg/actuation 07/08/2019 12:00:00 AM EST spray,suspension 16 USE 2 SPRAYS IN EACH NOSTRIL ONCE DAILY IN THE MORNING USE 2 SPRAYS IN EACH NOSTRIL ONCE DAILY IN THE MORNING SOLD: 10/07/2019 [facility] 10 mg 07/08/2019 12:00:00 AM EST tablet 30 TAKE ONE TABLET BY MOUTH EVERY DAY TAKE ONE TABLET BY MOUTH EVERY DAY SOLD: 07/09/2019 [facility] Ketoconazole 20 MG/ML Medicated Shampoo KETOCONAZOLE 07/08/19 12:00:00 AM EST shampoo 120 USE DIRECTED TO E NTIRE BODY 3 TIMES PER WEEK; LEAVE ON FOR 5 MINUTES USE DIRECTED TO ENTIRE BODY 3 TIMES PER WEEK; LEAVE ON FOR 5 MINUTES SOLD: 11/07/2019 [facility] Ketoconazole 20 MG/ML Medicated Shampoo KETOCONAZOLE 07/08/19 12:00:00 AM EST shampoo 120 USE DIRECTED TO E NTIRE BODY 3 TIMES PER WEEK; LEAVE ON FOR 5 MINUTES USE DIRECTED TO ENTIRE BODY 3 TIMES PER WEEK; LEAVE ON FOR 5 MINUTES SOLD: 09/08/2019 [facility] 600 mg(1,500mg) -400 unit 07/07/2019 12:00:00 AM EST tablet 60 TAKE ONE TABLET BY MOUTH TWICE A DAY WITH FOOD TAKE ONE TABLET BY MOUTH TWICE A DAY WIT H FOOD SOLD: 10/07/2019 [facility] 600 mg(1,500mg) -400 unit 07/07/2019 12:00:00 AM EST tablet 60 TAKE ONE TABLET BY MOUTH TWICE A DAY WITH FOOD TAKE ONE TABLET BY MOUTH TWICE A DAY WIT H FOOD SOLD: 08/08/2019 [facility] 600 mg(1,500mg) -400 unit 07/07/2019 12:00:00 AM EST tablet 60 TAKE ONE TABLET BY MOUTH TWICE A DAY WITH FOOD TAKE ONE TABLET BY MOUTH TWICE A DAY WIT H FOOD SOLD: 07/09/2019 [facility] 600 mg(1,500mg) -400 unit 07/07/2019 12:00:00 AM EST tablet 60 TAKE ONE TABLET BY MOUTH TWICE A DAY WITH FOOD TAKE ONE TABLET BY MOUTH TWICE A DAY WIT H FOOD SOLD: 11/07/2019 [facility] 600 mg(1,500mg) -400 unit 07/07/2019 12:00:00 AM EST tablet 60 TAKE ONE TABLET BY MOUTH TWICE A DAY WITH FOOD TAKE ONE TABLET BY MOUTH TWICE A DAY WIT H FOOD SOLD: 09/08/2019 [facility] 20 mg 06/22/2019 12:00:00 AM EST capsule 30 TAKE ONE CAPSULE BY MOUTH EVERY MORNING TAKE ONE CAPSULE BY MOUTH EVERY MORNING SOLD: 07/09/2019 [facility] 10 mg 06/16/2019 12:00:00 AM EST tablet 90 TAKE ONE AND ONE-HALF TABLETS BY MOUTH TWICE A DAY MAXIMUM DAILY DOSE = 3 TAKE ONE AND ONE-HALF TABLETS BY MOUTH TWICE A DAY MAXIMUM DAILY DOSE = 3 SOLD: 06/16/2019 [facility] 10 mg 05/17/2019 12:00:00 AM EST tablet 90 TAKE 1 & 1/2 TABLETS BY MOUTH TWO TIMES A DAY MAXIMUM DAILY DOSE = THREE TABLETS TAKE 1 & 1/2 TABLETS BY MOUTH TWO TIMES A DAY MAXIMUM DAILY DOSE = THREE TABLETS SOLD: 05/19/2019 [facility] 20 mg 05/14/2019 12:00:00 AM EST capsule 30 TAKE ONE CAPSULE BY MOUTH EVERY DAY IN THE MORNING TAKE ONE CAPSULE BY MOUTH EVERY DAY IN THE MORNING [facility] 10 mg 05/05/2019 12:00:00 AM EST tablet 30 TAKE ONE TABLET BY MOUTH EVERY DAY TAKE ONE TABLET BY MOUTH EVERY DAY SOLD: 06/09/2019 [facility] 1 % 04/05/2019 12:00:00 AM EST cream 30 APPLY TO AFFECTED AREA(S) TWO TIMES A DAY X 14 DAYS APPLY TO AFFECTED AREA(S) TWO TIMES A DAY X 14 DAYS SO LD: 06/09/2019 [facility] 1 % 04/05/2019 12:00:00 AM EST cream 30 APPLY TO AFFECTED AREA(S) TWO TIMES A DAY X 14 DAYS APPLY TO AFFECTED AREA(S) TWO TIMES A DAY X 14 DAYS SO LD: 08/08/2019 [facility] 1 % 04/05/2019 12:00:00 AM EST cream 30 APPLY TO AFFECTED AREA(S) TWO TIMES A DAY X 14 DAYS APPLY TO AFFECTED AREA(S) TWO TIMES A DAY X 14 DAYS SO LD: 09/08/2019 [facility] montelukast 10 MG Oral Tablet MONTELUKAST SODIUM 04/05/2019 12:0 0:00 AM EST tablet 30 TAKE ONE TABLET BY MOUTH AT BEDT DI TAKE ONE TABLET BY MOUTH AT BEDTIME SOLD: 06/09/2019 [facility] 100 mg 03/29/2019 12:00:00 AM EST capsule 120 TAKE TWO CAPSULES BY MOUTH TWICE A DAY TAKE TWO CAPSULES BY MOUTH TWICE A DAY SOLD: 08/11/2019 [facility] 100 mg 03/29/2019 12:00:00 AM EST capsule 120 TAKE TWO CAPSULES BY MOUTH TWICE A DAY TAKE TWO CAPSULES BY MOUTH TWICE A DAY SOLD: 06/09/2019 [facility] 100 mg 03/29/2019 12:00:00 AM EST capsule 120 TAKE TWO CAPSULES BY MOUTH TWICE A DAY TAKE TWO CAPSULES BY MOUTH TWICE A DAY SOLD: 09/08/2019 [facility] 100 mg 03/29/2019 12:00:00 AM EST capsule 120 TAKE TWO CAPSULES BY MOUTH TWICE A DAY TAKE TWO CAPSULES BY MOUTH TWICE A DAY SOLD: 07/09/2019 [facility] atorvastatin 20 MG Oral Tablet ATORVASTATIN CALCIUM 03/10/2019 1 2:00:00 AM EDT tablet 30 TAKE ONE TABLET BY MOUTH EVERY D AY TAKE ONE TABLET BY MOUTH EVERY DAY SOLD: 05/22/2019 [facility] atorvastatin 20 MG Oral Tablet ATORVASTATIN CALCIUM 03/10/2019 1 2:00:00 AM EDT tablet 30 TAKE ONE TABLET BY MOUTH EVERY D AY TAKE ONE TABLET BY MOUTH EVERY DAY SOLD: 06/20/2019 [facility] 25 mcg 03/07/2019 12:00:00 AM EDT tablet 30 TAKE ONE TABLET BY MOUTH EVERY MORNING ON EMPTY STOMACH TAKE ONE TABLET BY MOUTH EVERY MORNING O N EMPTY STOMACH SOLD: 06/09/2019 [facility] Ketoconazole 20 MG/ML Medicated Shampoo KETOCONAZOLE 01/29/20 19 12:00:00 AM EDT shampoo 120 APPLY DIRECTED 3 TIMES WEEKLY TO ENTIRE BODY , LEAVE ON 5 MINUTES APPLY DIRECTED 3 TIMES WEEKLY TO ENTIRE BODY , LEAV E ON 5 MINUTES SOLD: 06/09/2019 [facility] 50 mcg/actuation 01/21/2019 12:00:00 AM EDT spray,suspension 16 SPRAY 2 SPRAYS IN EACH NOSTRIL EVERY MORNING SPRAY 2 SPRAYS IN EACH NOSTRIL EVERY MORNING SOLD: 06/09/2019 [facility] 600 mg(1,500mg) -400 unit 01/20/2019 12:00:00 AM EDT tablet 60 TAKE ONE TABLET BY MOUTH TWICE A DAY WITH FOOD TAKE ONE TABLET BY MOUTH TWICE A DAY WIT H FOOD SOLD: 05/15/2019 [facility] 600 mg(1,500mg) -400 unit 01/20/2019 12:00:00 AM EDT tablet 60 TAKE ONE TABLET BY MOUTH TWICE A DAY WITH FOOD TAKE ONE TABLET BY MOUTH TWICE A DAY WIT H FOOD SOLD: 06/09/2019 [facility] Insurance Providers Payer name Policy type / Coverage type Policy ID Covered alliance party ID Covered alliance party's relationship to flores Policy [place] Plan Information [facility] [id number] SP [id number] EMEDNY [id number] SP [id number] [facility] [id number] SP [id number] MEDICARE COMPLETE [id number] SP [id number] [facility] MCR HMO [id number] SP [id number] MEDICARE COMPLETE [id number] SP [id number] [facility] [id number] SP [id number] Medicaid S UNAVAILABLE S UNAVAILA BLE [facility] P [id number] S [id number] MEDICAID [id number] SP [id number] MEDICARE [id number] SP [id number] A MEDICAID [id number] Self [id number] MEDICARE A [id number] Self [id number] A MEDICARE [id number] SP [id number] [facility](MCA[facility]) O [id number] S [id number] MEDICAID M [id number] S [id number] Medicare P UNAVAILABLE S UNAVAILA BLE MEDICARE [id number] SP [id number] MEDICARE [id number] SP [id number] A ANSI-Medicaid [id number] ANSI-Medicare Part B [id number] ANSI-Not a Secondary Insurance [id number] ANSI-Medicare Part B [id number] ANSI-Medicaid [id number] ANSI-Not a Secondary Insurance [id number] ANSI-Medicare Part B [id number] ANSI-Not a Secondary Insurance [id number] ANSI-Medicaid [id number] ANSI-Not a Secondary Insurance [id number] ANSI-Medicaid [id number] ANSI-Medicare Part B [id number] ANSI-Medicare Part B [id number] ANSI-Not a Secondary Insurance [id number] ANSI-Medicaid [id number] ANSI-Medicaid [id number] ANSI-Not a Secondary Insurance [id number] ANSI-Medicare Part B [id number] ANSI-Medicaid [id number] ANSI-Not a Secondary Insurance [id number] ANSI-Medicare Part B [id number] [facility] [id number] SP [id number] MEDICARE [id number] SP [id number] [place] Part [place] [id number] Self [id number] [place] [id number] Self [id number] [place]ig[place] [id number] Self [id number] [place] [id number] Self [id number] Medicaid [place] Medigap Part B [id number] Self [id number] [place] [id number] Self [id number] MEDICAID [id number] SP [id number] MEDICAID [id number] SP [id number] MEDICARE P [id number] S [id number] A [id number] A [id number] Problems, Conditions, and Diagnoses Code Display Name Description Problem Type Effective Dates Data Source(s) F20.0 [id number] Paranoid schizophrenia Problem 05/07/2020 12 :00:00 AM EST eCW1 ([facility]) K59.09 [id number] Constipation, chronic Problem 05/07/2020 12: 00:00 AM EST eCW1 ([facility]) 528.9 Other and unspecified diseases of the or al soft tissues Other and unspecified diseases of the oral soft tissues 02/21/2020 08: 33:50 AM EDT [facility] N93.9 Abnormal uterine bleeding Abnormal uterine bleeding (A UB) Problem 08/07/2019 12:00:00 AM EDT eCW1 ([facility]) N93.9 Abnormal uterine bleeding Abnormal uterine bleeding (A UB) Problem 08/07/2019 12:00:00 AM EDT eCW1 ([facility]) Surgeries/Procedures Procedure Description Date Indications Data Source(s) Immunization: Flublok Quadrivalent (18 years & older) 0.5mL IM (Influenza) 05/07/2020 12:00:00 AM EST eCW1 ([facility]) MRI Brain W/O Contrast, Followed By Contrast 0 12:00:00 AM EDT [facility] ([facility]) MRI Brain W/O Contrast, Followed By [facility] 0 12:00:00 AM EDT [facility] ([facility]) Results ID Date Data Source [id number] 06/02/2020 08:04:00 PM EST [facility] Name Value Range Interpretation Code Description Data Catrachita rce(s) Supporting Document(s) SARS-CoV-2 (COVID 19) NEGATIVE - SARS-CoV-2 (COVID19) [facility] This lab was ordered by [facility] a nd reported by [facility]. ID Date Data Source PROLACTIN 05/07/2020 12:00:00 AM EST eCW1 ([facility]) Name Value Range Interpretation Code Description Data Catrachita rce(s) Supporting Document(s) 10.9 eCW1 ([facility]) ID Date Data Source PTH INTACT 05/07/2020 12:00:00 AM EST eCW1 ([facility]) Name Value Range Interpretation Code Description Data Catrachita rce(s) Supporting Document(s) 13.8 18.5-88.0 PTH INTACT eCW1 ([facility]) ID Date Data Source VITAMIN D 25-HYDROXY 05/07/2020 12:00:00 AM EST eCW1 ([facility]) Name Value Range Interpretation Code Description Data Catrachita rce(s) Supporting Document(s) 44.8 30.0-100.0 TOTAL 25(OH) VITAMIN D eC W1 ([facility]) ID Date Data Source FSH & LH EVAL 05/07/2020 12:00:00 AM EST eCW1 ([facility]) Name Value Range Interpretation Code Description Data Catrachita rce(s) Supporting Document(s) 4.1 eCW1 ([facility]) 5.6 eCW1 ([facility]) ID Date Data Source INSULIN LEVEL 05/07/2020 12:00:00 AM EST eCW1 ([facility]) Name Value Range Interpretation Code Description Data Catrachita rce(s) Supporting Document(s) 11.3 2.6-24.9 eCW1 ([facility]) ID Date Data Source Comprehensive Metabolic Profile (CMP) 05/07/2020 12:00:00 AM EST eCW1 ([facility]) Name Value Range Interpretation Code Description Data Catrachita rce(s) Supporting Document(s) 11 7-18 BLOOD UREA NITROGEN eCW1 ([facility]) > 60.0 >60 GLOMERULAR FILTRATION RATE eCW 1 ([facility]) 0.96 0.55-1.30 CREATININE FOR GFR eCW1 ([facility]) 79 70-100 GLUCOSE, FASTING eCW1 ([facility]) 110 98-107 CHLORIDE LEVEL eCW1 ([facility]) 140 136-145 SODIUM LEVEL eCW1 ([facility] hospital) 4.5 3.5-5.1 POTASSIUM SERUM eCW1 ([facility]) 26 21-32 CARBON DIOXIDE LEVEL eCW1 ([facility]) 0.2 0.2-1.0 BILIRUBIN,TOTAL eCW1 ([facility]) 12 7-37 AST/SGOT eCW1 ([facility]) 22 12-78 ALT/SGPT eCW1 ([facility]) 91 45-117 ALKALINE PHOSPHATASE eCW1 ([facility]) 9.2 8.5-10.1 CALCIUM LEVEL eCW1 ([facility]) 1.4 1.2-2.2 ALBUMIN/GLOBULIN RATIO eCW1 ([facility]) 6.7 6.4-8.2 TOTAL PROTEIN eCW1 ([facility]) 3.9 3.2-5.2 ALBUMIN eCW1 ([facility]) ID Date Data Source LIPID PANEL (CARDIAC RISK) 05/07/2020 12:00:00 AM EST eCW1 ( [facility]) Name Value Range Interpretation Code Description Data Catrachita rce(s) Supporting Document(s) Cholesterol [Moles/volume] in Serum or Plasma 135 <200 CHOLESTEROL LEVEL eCW1 ([facility]) Triglyceride [Mass/volume] in Serum or Plasma by calculation 75 <150 TRIGLYCERIDES LEVEL eCW1 [facility] [facility] 2.368 <5 CHOLESTEROL RISK RATIO eCW1 ([facility]) 78 NON-HDL-C eCW1 ([facility]) Cholesterol in HDL [Moles/volume] in Serum or Plasma 57 >40 HDL CHOLESTEROL eCW1 ([facility]) Cholesterol in LDL [Mass/volume] in Serum or Plasma by calculation 63 <100 LDL CHOLESTEROL eCW1 ([facility]) ID Date Data Source FREE T4 & TSH PANEL 05/07/2020 12:00:00 AM EST eCW1 ([facility]) Name Value Range Interpretation Code Description Data Catrachita rce(s) Supporting Document(s) 2.250 0.358-3.740 THYROID STIMULATING HORM ONE eCW1 ([facility]) 0.73 0.76-1.46 FREE T4 eCW1 ([facility]) ID Date Data Source CORTISOL BASELINE 05/07/2020 12:00:00 AM EST eCW1 ([facility]) Name Value Range Interpretation Code Description Data Catrachita rce(s) Supporting Document(s) 3.4 4.3-22.4 eCW1 ([facility]) ID Date Data Source ADRENOCORTICOTROPHIC HORMONE 05/07/2020 12:00:00 AM EST eCW1 ([facility]) Name Value Range Interpretation Code Description Data Catrachita rce(s) Supporting Document(s) 10.2 7.2-63.3 eCW1 ([facility]) ID Date Data Source [id number] 05/07/2020 12:00:00 AM EST eCW1 ([facility]) Name Value Range Interpretation Code Description Data Catrachita rce(s) Supporting Document(s) Hemoglobin A1c/Hemoglobin.total in Blood 5.5 HEMOGLOBIN A1c eCW1 ([facility]) ID Date Data Source CBC with Differential 05/07/2020 12:00:00 AM EST eCW1 [facility] Name Value Range Interpretation Code Description Data Catrachita rce(s) Supporting Document(s) 10.0 4.0-10.0 WHITE BLOOD COUNT eCW1 ([facility]) 4.64 4.00-5.40 RED BLOOD COUNT eCW1 ([facility]) 14.2 12.0-15.5 HEMOGLOBIN eCW1 ([facility]) 44.7 36.0-47.0 HEMATOCRIT eCW1 ([facility]) 96.3 80.0-96.0 MEAN CORPUSCULAR VOLUME e CW1 ([facility]) 31.8 32.0-36.5 MEAN CORPUSCULAR HGB CONC eCW1 ([facility]) 30.6 27.0-33.0 MEAN CORPUSCULAR HEMOGLOB IN eCW1 ([facility]) 12.7 11.5-14.5 RED CELL DISTRIBUTION WID TH eCW1 ([facility]) 67.3 36.0-66.0 NEUTROPHILS % eCW1 ([facility]) 278 150-450 PLATELET COUNT, AUTOMATED eCW1 ([facility]) 7.0 0.0-5.0 MONO % eCW1 ([facility]) 23.5 24.0-44.0 LYMPH % eCW1 ([facility]) 0.5 0.0-1.0 BASO % eCW1 ([facility]) 6.7 1.5-8.5 NEUTROPHILS # eCW1 ([facility]) 1.4 0.0-3.0 EOS % eCW1 ([facility]) 0.1 0.0-0.5 EOS # eCW1 ([facility]) 2.4 1.5-5.0 LYMPH # eCW1 ([facility]) 0.1 0.0-0.2 BASO # eCW1 ([facility]) 0.7 0.0-0.8 MONO # eCW1 ([facility]) ID Date Data Source [id number] 02/20/2020 01:58:04 PM EDT [facility] Current Problems: Other and unspecified diseases of the oral soft tissues (ICD- 528.9) (MFW64-I55.89)Dental caries (ICD-521.00) (OTU55-V15.9)Current Medications: * ATROVASTINE * CALIUM * VIT D * PROZAC * LEVOTHYROXINE * ZONISAMADE * ONFI Current Allergies: * ROSEPHINE (Critical)* CECHLOR (Critical)* LAMECTORAL (Critical) Dental Chart: Procedures:Type - CDT Code - Description B - (D0220) Intraoral, periapical, first radiographic image on Tooth # 9 (Performed by Contreras Duran DDS) B - (D0140) Limited oral evaluation - problem focused on Tooth # 9 (Performed by Contreras Duran DDS) Chart Notes:miguel (Feb 21 2020 8:33AM): CC: "Having swelling and pain."HPI: started 2 months ago with swelling and discomfort. pt was on two rounds of antibotics, augmentin in the last month.Pain Lvl: 5RMH (-) No ChangesAllergies; NKDABP: 121/94Temperature: 97.7 passed COVID questionairePA taken-Dexis #8,9 to R/O nasopalatine cyst. None seenExam reveals: incisal paplilla slightly swollen, tender to touchpt. was cooperativeDX: cyst of the incisive papillaPlan: refer to OS for cyst enculeation and extraction of #31. Swish with warm salt water daily, if pain gets worse to call office for antibotics( may need to give Clindamycin as pt. has already had 2 rounds of augmentin in the last month)Additional PPE requirements due to COVID-19 in the dental setting, N95, surgical mask, hair covering, gown Pt was cooperative.NV: Contreras Ramirez DDS by miguel (02/21/2020 8:33 AM): Contreras Duran DDS by miguel (02/21/2020 8:33 AM): Tooth Notes and Watches: Assessment & Plan Problems:Added: Other and unspecified diseases of the oral soft tissues (ICD-528.9) (ICD10- M79.89)Medications:ATROVASTINECALIUMVIT DPROZACLEVOTHYROXINEZONISAMADEONFIAllergies:* ROSEPHINE (Critical)* CECHLOR (Critical)* LAMECTORAL (Critical)Orders:Oral Surgery Referral [[id number]] Name Value Range Interpretation Code Description Data Catrachita rce(s) Supporting Document(s) ID Date Data Source [id number] 07/20/2019 02:01:45 PM [facility] Current Problems: Dental caries (ICD-521 .00) (OUA93-F07.9)Current Medications: * ATROVASTINE * CALIUM * VIT D * PROZAC * LEVOTHYROXINE * ZONISAMADE * ONFI Current Allergies: * ROSEPHINE (Critical)* CECHLOR (Critical)* LAMECTORAL (Critical) Dental Chart: Procedures:Type - CDT Code - Description B - (D2330) Resin, one surface, anterior on Tooth # 10 on Tooth Surface I (Performed by Contreras Duran DDS) B - (D2331) Resin, 2 surfaces, anterior on Tooth # 7 on Tooth Surface LD (Performed by Contreras Duran DDS) B - (D2331) Resin, 2 surfaces, anterior on Tooth # 7 on Tooth Surface MF (Performed by Contreras Duran DDS) B - (D2331) Resin, 2 surfaces, anterior on Tooth # 8 on Tooth Surface ML (Performed by Contreras Duran DDS) Chart Notes:miguel (Jul 20 2019 3:15PM): Rmhx (-) per guardianCC: none. Operative: #7 DLFM, #8 ML, #10 I - decay removed with highspeed bur, self etching Futurabond M+ (Voco) placed and light- cured, A2 flowable and packable Grandioso (Voco) composite placed and light- cured. Bite occlusion checked, adjusted, and polished.Anesthesia: 20% Benzocaine topical, 1 carp 4% Septocaine w/ 1:100,000 epi (anterior)No complications. POI. Assisted by . Pt was cooperative.NV: ext #[id number] Duran DDS by miguel (07/20/2019 3:15 PM): Tooth Notes and Watches: Assessment & Plan Medications:ATROVASTINECALIUMVIT DPROZACLEVOTHYROXINEZONISAMADEONFIAllergies:* ROSEPHINE (Critical)* CECHLOR (Critical)* LAMECTORAL (Critical) Name Value Range Interpretation Code Description Data Catrachita rce(s) Supporting Document(s) ID Date Data Source [id number] 06/27/2019 12:31:58 PM [facility] Current Problems: Dental caries (ICD-521 .00) (LPS95-C65.9)Current Medications: * ATROVASTINE * CALIUM * VIT D * PROZAC * LEVOTHYROXINE * ZONISAMADE * ONFI Current Allergies: * ROSEPHINE (Critical)* CECHLOR (Critical)* LAMECTORAL (Critical) Dental Chart: Procedures:Type - CDT Code - Description B - (D2392) Resin-based composite, 2 surfaces, posterior on Tooth # 2 on Tooth Surface OL (Performed by Contreras Duran DDS) B - (D2392) Resin-based composite, 2 surfaces, posterior on Tooth # 3 on Tooth Surface OL (Performed by Contreras Duran DDS) Chart Notes:miguel (Jun 27 2019 1:25PM): Rmhx (-) per GuardianCC: none. Operative: #2 OL & #3 OL decay removed with highspeed bur, self etching Futurabond M+ (Voco) placed and light-cured, A2 flowable grandioso (Voco) composite placed and light-cured. Bite occlusion checked, adjusted, and polished.Anesthesia: 20% Benzocaine topical, 1 carp 4% Septocaine w/ 1:100,000 epi (Upper RightNo complications. POI. Assisted by . Pt was cooperative.NV: Contreras Greenwood DDS by miguel (06/27/2019 1:25 PM): Tooth Notes and Watches: Assessment & Plan Medications:ATROVASTINECALIUMVIT DPROZACLEVOTHYROXINEZONISAMADEONFIAllergies:* ROSEPHINE (Critical)* CECHLOR (Critical)* LAMECTORAL (Critical) Name Value Range Interpretation Code Description Data Catrachita rce(s) Supporting Document(s) Procedure Social History Code Duration Value Status Description Data Source(s ) Smoking 07/09/2020 12:00:00 AM EST Never Smoker completed Never S moker eCW1 ([facility]) Smoking 07/09/2020 12:00:00 AM EST Never Smoker completed Never S moker eCW1 ([facility]) Smoking 05/07/2020 12:00:00 AM EST Never Smoker completed Never S moker eCW1 ([facility]) Smoking 05/07/2020 12:00:00 AM EST Never Smoker completed Never S moker eCW1 ([facility]) Smoking 05/07/2020 12:00:00 AM EST Never Smoker completed Never S moker eCW1 ([facility]) Smoking 05/07/2020 12:00:00 AM EST Never Smoker completed Never S moker eCW1 ([facility]) Smoking 05/07/2020 12:00:00 AM EST Never Smoker completed Never S moker eCW1 ([facility]) Smoking 05/07/2020 12:00:00 AM EST Never Smoker completed Never S moker eCW1 ([facility]) Smoking 09/23/2019 12:00:00 AM EDT Never Smoker completed Never S moker eCW1 ([facility]) Smoking 09/23/2019 12:00:00 AM EDT Never Smoker completed Never S moker eCW1 ([facility]) Smoking 09/23/2019 12:00:00 AM EDT Never Smoker completed Never S moker eCW1 ([facility]) Smoking 09/23/2019 12:00:00 AM EDT Never Smoker completed Never S moker eCW1 ([facility]) Smoking 09/23/2019 12:00:00 AM EDT Never Smoker completed Never S moker eCW1 ([facility]) Smoking 09/23/2019 12:00:00 AM EDT Never Smoker completed Never S moker eCW1 ([facility]) Smoking 09/23/2019 12:00:00 AM EDT Never Smoker completed Never S moker eCW1 ([facility]) Smoking 09/23/2019 12:00:00 AM EDT Never Smoker completed Never S moker eCW1 ([facility]) Vital Signs ID Date Data Source UNK Name Value Range Interpretation Code Description Data Source(s) Diastolic blood pressure 72 mm[Hg] 72 mm[Hg] eCW1 ([facility]) Systolic blood pressure 118 mm[Hg] 118 mm[Hg] e CW1 ([facility]) Body temperature 98.1 [degF] 98.1 [degF] eCW1 ( [facility]) Respiratory rate 18 /min 18 /min eCW1 ([facility]) Heart rate 105 /min 105 /min eCW1 ([facility]) Body mass index (BMI) [Ratio] 35.11 kg/m2 35.11 kg/m2 eCW1 ([facility]) Body height 65 [in_i] 65 [in_i] eCW1 ([facility]) Body weight 211 [lb_av] 211 [lb_av] eCW1 [facility] Diastolic blood pressure 78 mm[Hg] 78 mm[Hg] eCW1 ([facility]) Systolic blood pressure 124 mm[Hg] 124 mm[Hg] e CW1 ([facility]) Body mass index (BMI) [Ratio] 33.94 kg/m2 33.94 kg/m2 W1 ([facility]) Body height 65 [in_i] 65 [in_i] eCW1 ([facility]) Body weight 204 [lb_av] 204 [lb_av] eCW1 ([facility] Diastolic blood pressure 80 mm[Hg] 80 mm[Hg] eCW1 ([facility]) Systolic blood pressure 122 mm[Hg] 122 mm[Hg] e CW1 ([facility]) Body temperature 98.2 [degF] 98.2 [degF] eCW1 ( [facility]) Respiratory rate 18 /min 18 /min eCW1 ([facility]) Heart rate 102 /min 102 /min eCW1 ([facility]) Body mass index (BMI) [Ratio] 34.11 kg/m2 34.11 kg/m2 eCW1 ([facility]) Body height 65 [in_i] 65 [in_i] eCW1 ([facility]) Body weight 205.0 [lb_av] 205.0 [lb_av] eCW1 ([facility]) Diastolic blood pressure 70 mm[Hg] 70 mm[Hg] eCW1 ([facility]) Systolic blood pressure 122 mm[Hg] 122 mm[Hg] e CW1 ([facility]) Body mass index (BMI) [Ratio] 28.12 kg/m2 28.12 kg/m2 eCW1 ([facility]) Body height 65 [in_us] 65 [in_us] eCW1 ([facility]) Body weight Measured 169 [lb_av] 169 [lb_av] eC W1 ([facility]) Patient Treatment Plan of Care Planned Activity Planned Date Details Description Data Source (s) Erythromycin 0.005 MG/MG Ophthalmic Ointment 07/09/2020 12:00:00 AM EST eCW1 ([facility]) Erythromycin 0.005 MG/MG Ophthalmic Ointment 07/09/2020 12:00:00 AM EST eCW1 ([facility])
[2020-07-14] MEDS ORDERED: ERYT5OIN25 OU (20:19)
[2020-07-14 20:20] LABS: HEMATOCRIT 43.8 % (36.0-47.0); HEMOGLOBIN 13.4 g/dl (12.0-15.5); MEAN CORPUSCULAR HEMOGLOBIN 28.5 pg (27.0-33.0); MEAN CORPUSCULAR HGB CONC 30.6 g/dl (32.0-36.5); PLATELET COUNT, AUTOMATED 237 10^3/uL (150-450); RED BLOOD COUNT 4.71 10^6/uL (4.00-5.40); WHITE BLOOD COUNT 7.8 10^3/uL (4.0-10.0)
--- OUTSIDE RECORDS SUMMARY | 2020-07-14 20:44 | CCD ---
Author Author [facility] Organization [facility] Address Unknown Phone Unavailable Care Team Providers Care Assistant Superintendent For Curriculum Name Role Phone Erma Brock Unavailable Unavailable [...] is protected by Article 27-F of the [place] State Public Health law. If you continue you may have access to information: Regarding HIV / AIDS; Provided by facilities licensed or operated by the [facility] Office of Mental Health; or Provided by the [facility] Office for People With Developmental Disabilities. If such information is present, then the following [facility] mandated warning applies: This information has [...] law may result in a fine or fpc sentence or both. A general authorization for the release of medical or other information is NOT sufficient authorization for further disc losure. Allergies and Adverse Reactions Type Description Substance Reaction Status Data Source(s ) Drug allergy Lamictal lamotrigine Unknown Active eCW1 ([facility]) Rocephin Rocephin Rocephin Anaphylaxis Active eCW1 ([facility]) ceclor ceclor ceclor Anaphylaxis Active eCW1 ([facility]) Substance/Environmental Agent Allergy Substance/Environmenta l Agent Allergy lamotrigine SJS Severe MEDENT ([facility], ) Substance/Environmental Agent Allergy Substance/Environmenta l Agent Allergy Cefaclor MEDENT ([facility]) Substance/Environmental Agent Allergy Substance/Environmenta l Agent Allergy Cephalosporins ([id number]) MEDENT ([facility], ) Family History Family Member Name Family Member Gender Family Member Status Date o f Status Description Data Source(s) Unknown Unknown Problem MEDENT ([facility], ) father Encounters Encounter Providers Location Date Indications Data Source(s ) Office Visit, Est Pt., Level [address] [place] [address] 07/09/2020 12:00:00 AM EST eCW1 ([facility]) Unknown [address] [facility] [address] 07/09/2020 12:00:00 AM EST eCW1 ([facility]) Unknown [address] [facility] [address] 06/12/2020 12:00:00 AM EST [facility]CW1 [facility] [place] [address] [facility] [address] 05/30/2020 12:00:00 AM EST eCW1 ([facility]) [place] [address] [facility] [address] 05/10/2020 12:00:00 AM EST eCW1 ([facility]) Out[place] [address] [facility] [address] 05/07/2020 12:00:00 AM EST eCW1 ([facility]) Out[place] [address] [facility] [address] 05/07/2020 12:00:00 AM EST eCW1 ([facility]) [place] [address] [facility] [address] 05/07/2020 12:00:00 AM EST eCW1 ([facility]) [place] [address] [facility] [address] 05/01/2020 12:00:00 AM EST eCW1 ([facility]) [place] [address] [facility] [address] 05/01/2020 12:00:00 AM EST eCW1 ([facility]) [place] [address] [facility] [address] 05/01/2020 12:00:00 AM EST eCW1 ([facility]) Unknown [address] [facility] [address] 05/01/2020 12:00:00 AM EST eCW1 ([facility]) [place] [address] [facility] [address] 05/01/2020 12:00:00 AM EST eCW1 ([facility]) [place] [address] [facility] [address] 05/01/2020 12:00:00 AM EST eCW1 ([facility]) [place] [address] [facility] [address] 04/09/2020 12:00:00 AM EST eCW1 ([facility]) Outpatient Attender: Daily Brock MD Main office - [place] 03/05/2020 11:00:00 AM EDT MEDENT ([facility]) Outpatient Attender: [facility] 02/29/2020 09:44:01 AM EDT [facility] Outpatient Attender: [facility] 02/21/2020 08:34:03 AM EDT [facility] Outpatient Attender: [facility] 02/21/2020 08:34:02 AM EDT [facility] Outpatient Attender: [facility] 02/17/2020 01:52:01 PM EDT [facility] Outpatient Attender: Daily Brock MD Main office - [place] 11/30/2019 10:15:00 AM EDT MEDENT ([facility]) Unknown [address] [facility], [facility] [address] 11/04/2019 12:00:00 AM EDT eCW1 ([facility]) Outpatient Attender: [facility] 10/12/2019 02:40:01 PM EDT [facility] Outpatient Attender: [facility] 10/12/2019 12:59:[address] [facility] [address] [place] [address] 09/23/2019 12:00:00 AM EDT [facility]CW1 [facility]) Outpatient Attender: Daily Brock MD Main office - [place] 08/31/2019 11:45:00 AM EDT MEDENT ([facility]) Outpatient Attender: [facility] 08/19/2019 08:02:26 PM EDT [address] [address] 08/09/2019 12:00:00 AM EDT eCW1 ([facility]) Outpatient Attender: [facility] 07/28/2019 04:11:00 PM EST [address] [address] 07/25/2019 12:00:00 AM EST eCW1 [facility] [address] [address] 07/21/2019 12:00:00 AM EST eCW1 [facility]) Outpatient Attender: [facility] 07/20/2019 03:17:00 PM [facility] 07/20/2019 02:26:00 PM [facility] 07/20/2019 02:25:00 PM [facility] 07/20/2019 02:24:01 PM [facility] Out[facility] 07/18/2019 08:46:01 AM [facility] Outpatient [facility] 07/15/2019 12:57:[address] [address] 07/13/2019 12:00:00 AM EST eCW1 ([facility]) [address] [address] 07/12/2019 12:00:00 AM EST eCW1 ([facility]) [facility] [address] [facility] [place] [address] 07/06/2019 12:00:00 AM EST eCW1 [facility]) Outpatient Attender: [facility] 06/27/2019 01:26:03 PM [facility] [address] [facility] [address] 06/08/2019 12:00:00 AM EST eCW1 ([facility]) Unknown [address] [facility] [address] 06/07/2019 12:00:00 AM EST eCW1 [facility]) Immunizations Vaccine Date Status Description Data Source(s) influenza, recombinant, quadrIvalent,injectable, prese rvative free 05/07/2020 04:58:00 PM EST completed eCW1 ([facility]) influenza, recombinant, quadrIvalent,injectable, prese rvative free 05/07/2020 04:58:00 PM EST completed eCW1 ([facility]) influenza, recombinant, quadrIvalent,injectable, prese rvative free 05/07/2020 04:58:00 PM EST completed eCW1 ([facility]) influenza, recombinant, quadrIvalent,injectable, prese rvative free 05/07/2020 04:58:00 PM EST completed eCW1 ([facility]) influenza, recombinant, quadrIvalent,injectable, prese rvative free 05/07/2020 04:58:00 PM EST completed eCW1 ([facility]) influenza, recombinant, quadrIvalent,injectable, prese rvative free 05/07/2020 04:58:00 PM EST completed eCW1 ([facility]) influenza, recombinant, quadrIvalent,injectable, prese rvative free 05/07/2020 04:58:00 PM EST completed eCW1 ([facility]) influenza, recombinant, quadrIvalent,injectable, prese rvative free 05/07/2020 04:58:00 PM EST completed eCW1 ([facility]) Medications Medication Brand Name Start Date Product [...] AM EST active Erythromycin 5 MG/GM eCW1 ([facility]) Erythromycin 0.005 MG/MG Ophthalmic Ointment Erythromy oleksandr 5 MG/GM Erythromycin 5 MG/GM 07/09/2020 12:00:00 AM EST active Erythromycin 5 MG/GM eCW1 ([facility]) 20 mg 07/06/2020 12:00:00 AM EST capsule [...] active Sennosides-Docusate Sodium 8.6-5 0 MG eCW1 ([facility]) Sennosides-Docusate Sodium 8.6-50 MG UNK 05/07/2020 12:00:00 AM EST active Sennosides-Docusate Sodium 8.6-5 0 MG eCW1 ([facility]) Sennosides-Docusate Sodium 8.6-50 MG UNK 05/07/2020 12:00:00 AM EST suspended Sennosides-Docusate Sodium 8.6-5 0 MG eCW1 ([facility]) Sennosides-Docusate Sodium 8.6-50 MG UNK 05/07/2020 12:00:00 AM EST suspended Sennosides-Docusate Sodium 8.6-5 0 MG eCW1 ([facility]) Sennosides-Docusate Sodium 8.6-50 MG UNK 05/07/2020 12:00:00 AM EST active Sennosides-Docusate Sodium 8.6-5 0 MG eCW1 ([facility]) Sennosides-Docusate Sodium 8.6-50 MG UNK 05/07/2020 12:00:00 AM EST active Sennosides-Docusate Sodium 8.6-5 0 MG eCW1 ([facility]) Sennosides-Docusate Sodium 8.6-50 MG UNK 05/07/2020 12:00:00 AM EST active Sennosides-Docusate Sodium 8.6-5 0 MG eCW1 ([facility]) Sennosides-Docusate Sodium 8.6-50 MG UNK 05/07/2020 12:00:00 AM EST active Sennosides-Docusate Sodium 8.6-5 0 MG eCW1 ([facility]) 10 mg 05/03/2020 12:00:00 AM EST tablet [...] TABLET BY MOUTH EVERY DAY SOLD: 05/10/2020 [facility] 0.5 mg 04/27/2020 12:00:00 AM EST [...] BY MOUTH EVERY DAY SOLD: 01/02/2020 [facility] 10 mg 12/30/2019 [...] BY MOUTH TWICE A DAY SOLD: 07/09/2019 [facility] atorvastatin 20 MG Oral Tablet ATORVASTATIN [...] type / Coverage type Policy ID Covered green party ID Covered green party's relationship to flores Policy Flores Plan Information EMEDNY [id number] SP [id number] [facility] MCRO [id number] SP [id number] [facility] [id number] SP [id number] MEDICARE COMPLETE [id number] SP [id number] [facility] MCR HMO [id number] SP [id number] MEDICARE COMPLETE [id number] SP [id number] [facility] MCRO [id number] SP [id number] Medicaid S UNAVAILABLE S UNAVAILA BLE [facility] Secure Horizons P [id number] S [id number] MEDICAID [id number] SP [id number] MEDICARE [id number] SP [id number] A MEDICAID M [id number] Self [id number] MEDICARE A [id number] Self [id number] A MEDICARE [id number] SP [id number] [facility](MCAID) O [id number] S [id number] MEDICAID M [id number] S [id number] Medicare P UNAVAILABLE S UNAVAILA BLE MEDICARE [id number] SP [id number] MEDICARE [id number] SP [id number] A ANSI-Medicaid [id number] ANSI-Medicare Part B [id number] ANSI-Not a Secondary Insurance [id number] ANSI-Medicare Part B [id number] ANSI-Medicaid [id number] ANSI-Not a Secondary Insurance [id number] ANSI-Medicare Part B [id number] ANSI-Not a Secondary Insurance [id number] ANSI-Medicaid [id number] ANSI-Not a Secondary Insurance [id number] ANSI-Medicaid [id number] ANSI-Medicare Part B [id number] ANSI-Medicare Part B [id number] ANSI-Not a Secondary Insurance [id number] ANSI-Medicaid [id number] ANSI-Medicaid [id number] ANSI-Not a Secondary Insurance [id number] ANSI-Medicare Part B [id number] ANSI-Medicaid [id number] ANSI-Not a Secondary Insurance [id number] ANSI-Medicare Part B [id number] [facility] [id number] SP [id number] MEDICARE [id number] SP [id number] [place] [id number] Self [id number] [place] [id number] Self [id number] [place] [id number] Self [id number] [place] Primary [id number] Self [id number] Medicaid [place] Med[place] Part B [id number] Self [id number] [place]/N[place] Primary [id number] Self [id number] MEDICAID [id number] SP [id number] MEDICAID [id number] SP [id number] MEDICARE P [id number] S [id number] A [id number] A [id number] Problems, Conditions, and Diagnoses Code Display Name Description Problem Type Effective Dates Data Source(s) F20.0 40327546 Paranoid schizophrenia Problem 05/07/2020 12 :00:00 AM EST eCW1 ([facility]) K59.09 [id number] Constipation, chronic Problem 05/07/2020 12: 00:00 AM EST eCW1 ([facility]) 528.9 Other and unspecified diseases of the or al soft tissues Other and unspecified diseases of the oral soft tissues 02/21/2020 08: 33:50 AM EDT [facility] N93.9 Abnormal uterine bleeding Abnormal uterine bleeding (A UB) Problem 08/07/2019 12:00:00 AM EDT eCW1 ([facility]) N93.9 Abnormal uterine bleeding Abnormal uterine bleeding (A UB) Problem 08/07/2019 12:00:00 AM EDT eCW1 ([facility]) Surgeries/Procedures Procedure Description Date Indications Data Source(s) Immunization: Flublok Quadrivalent (18 years & older) 0.5mL IM (Influenza) 05/07/2020 12:00:00 AM EST eCW1 ([facility]) MRI Brain W/O Contrast, Followed By Contrast 0 12:00:00 AM EDT MEDENT ([facility]) MRI Brain W/O Contrast, Followed By Contrast 0 12:00:00 AM EDT MEDENT ([facility]) Results ID Date Data Source [id number] 06/02/2020 08:04:00 PM EST [facility] Name Value Range Interpretation Code Description Data Catrachita rce(s) Supporting Document(s) SARS-CoV-2 (COVID 19) NEGATIVE - SARS-CoV-2 (COVID19) [facility] This lab was ordered by [facility] a nd reported by [facility]. ID Date Data Source PROLACTIN 05/07/2020 12:00:00 AM EST eCW1 ([facility]) Name Value Range Interpretation Code Description Data Catrachita rce(s) Supporting Document(s) 10.9 eCW1 ([facility]) ID Date Data Source PTH INTACT 05/07/2020 12:00:00 AM EST eCW1 ([facility]) Name Value Range Interpretation Code Description Data Catrachita rce(s) Supporting Document(s) 13.8 18.5-88.0 PTH INTACT eCW1 ([facility]) ID Date Data Source VITAMIN D 25-HYDROXY 05/07/2020 12:00:00 AM EST eCW1 ([facility]) Name Value Range Interpretation Code Description Data Catrachita rce(s) Supporting Document(s) 44.8 30.0-100.0 TOTAL 25(OH) VITAMIN D eC W1 ([facility]) ID Date Data Source FSH & LH EVAL 05/07/2020 12:00:00 AM EST eCW1 ([facility]) Name Value Range Interpretation Code Description Data Catrachita rce(s) Supporting Document(s) 4.1 eCW1 ([facility]) 5.6 eCW1 ([facility]) ID Date Data Source INSULIN LEVEL 05/07/2020 12:00:00 AM EST eCW1 ([facility]) Name Value Range Interpretation Code Description Data Catrachita rce(s) Supporting Document(s) 11.3 2.6-24.9 eCW1 ([facility]) ID Date Data Source Comprehensive Metabolic Profile (CMP) 05/07/2020 12:00:00 AM EST eCW1 ([facility]) Name Value Range Interpretation Code Description Data Catrachita rce(s) Supporting Document(s) 11 7-18 BLOOD UREA NITROGEN eCW1 ([facility]) > 60.0 >60 GLOMERULAR FILTRATION RATE eCW 1 ([facility]) 0.96 0.55-1.30 CREATININE FOR GFR eCW1 ([facility]) 79 70-100 GLUCOSE, FASTING eCW1 ([facility]) 110 98-107 CHLORIDE LEVEL eCW1 ([facility]) 140 136-145 SODIUM LEVEL eCW1 (Critical access hospital) 4.5 3.5-5.1 POTASSIUM SERUM eCW1 ([facility]) 26 21-32 CARBON DIOXIDE LEVEL eCW1 ([facility]) 0.2 0.2-1.0 BILIRUBIN,TOTAL eCW1 ([facility]) 12 7-37 AST/SGOT eCW1 ([facility]) 22 12-78 ALT/SGPT eCW1 ([facility]) 91 45-117 ALKALINE PHOSPHATASE eCW1 ([facility]) 9.2 8.5-10.1 CALCIUM LEVEL eCW1 ([facility]) 1.4 1.2-2.2 ALBUMIN/GLOBULIN RATIO eCW1 ([facility]) 6.7 6.4-8.2 TOTAL PROTEIN eCW1 ([facility]) 3.9 3.2-5.2 ALBUMIN eCW1 ([facility]) ID Date Data Source LIPID PANEL (CARDIAC RISK) 05/07/2020 12:00:00 AM EST eCW1 ( [facility]) Name Value Range Interpretation Code Description Data Catrachita rce(s) Supporting Document(s) Cholesterol [Moles/volume] in Serum or Plasma 135 <200 CHOLESTEROL LEVEL eCW1 ([facility]) Triglyceride [Mass/volume] in Serum or Plasma by calculation 75 <150 TRIGLYCERIDES LEVEL eCW1 ([facility]) 2.368 <5 CHOLESTEROL RISK RATIO eCW1 ([facility]) 78 NON-HDL-C eCW1 ([facility]) Cholesterol in HDL [Moles/volume] in Serum or Plasma 57 >40 HDL CHOLESTEROL eCW1 ([facility]) Cholesterol in LDL [Mass/volume] in Serum or Plasma by calculation 63 <100 LDL CHOLESTEROL eCW1 ([facility]) ID Date Data Source FREE T4 & TSH PANEL 05/07/2020 12:00:00 AM EST eCW1 ([facility]) Name Value Range Interpretation Code Description Data Catrachita rce(s) Supporting Document(s) 2.250 0.358-3.740 THYROID STIMULATING HORM ONE eCW1 ([facility]) 0.73 0.76-1.46 FREE T4 eCW1 ([facility]) ID Date Data Source CORTISOL BASELINE 05/07/2020 12:00:00 AM EST eCW1 ([facility]) Name Value Range Interpretation Code Description Data Catrachita rce(s) Supporting Document(s) 3.4 4.3-22.4 eCW1 ([facility]) ID Date Data Source ADRENOCORTICOTROPHIC HORMONE 05/07/2020 12:00:00 AM EST eCW1 ([facility]) Name Value Range Interpretation Code Description Data Catrachita rce(s) Supporting Document(s) 10.2 7.2-63.3 eCW1 ([facility]) ID Date Data Source [id number] 05/07/2020 12:00:00 AM EST eCW1 ([facility]) Name Value Range Interpretation Code Description Data Catrachita rce(s) Supporting Document(s) Hemoglobin A1c/Hemoglobin.total in Blood 5.5 HEMOGLOBIN A1c eCW1 ([facility]) ID Date Data Source CBC with Differential 05/07/2020 12:00:00 AM EST eCW1 ([facility]) Name Value Range Interpretation Code Description Data Catrachita rce(s) Supporting Document(s) 10.0 4.0-10.0 WHITE BLOOD COUNT eCW1 ([facility]) 4.64 4.00-5.40 RED BLOOD COUNT eCW1 ([facility]) 14.2 12.0-15.5 HEMOGLOBIN eCW1 (Critical access hospital) 44.7 36.0-47.0 HEMATOCRIT eCW1 (Critical access hospital) 96.3 80.0-96.0 MEAN CORPUSCULAR VOLUME e CW1 ([facility]) 31.8 32.0-36.5 MEAN CORPUSCULAR HGB CONC eCW1 ([facility]) 30.6 27.0-33.0 MEAN CORPUSCULAR HEMOGLOB IN eCW1 ([facility]) 12.7 11.5-14.5 RED CELL DISTRIBUTION WID TH eCW1 ([facility]) 67.3 36.0-66.0 NEUTROPHILS % eCW1 ([facility]) 278 150-450 PLATELET COUNT, AUTOMATED eCW1 ([facility]) 7.0 0.0-5.0 MONO % eCW1 ([facility]) 23.5 24.0-44.0 LYMPH % eCW1 ([facility]) 0.5 0.0-1.0 BASO % eCW1 ([facility]) 6.7 1.5-8.5 NEUTROPHILS # eCW1 ([facility]) 1.4 0.0-3.0 EOS % eCW1 ([facility]) 0.1 0.0-0.5 EOS # eCW1 ([facility]) 2.4 1.5-5.0 LYMPH # eCW1 ([facility]) 0.1 0.0-0.2 BASO # eCW1 ([facility]) 0.7 0.0-0.8 MONO # eCW1 ([facility]) ID Date Data Source [id number] 02/20/2020 01:58:04 PM EDT [facility] Current Problems: Other and unspecified diseases of the oral soft tissues (ICD- 528.9) (RLY84-X54.89)Dental caries (ICD-521.00) (YEE50-S42.9)Current Medications: * ATROVASTINE * CALIUM * VIT [...] (Critical)* CECHLOR (Critical)* LAMECTORAL (Critical)Orders:Oral Surgery Referral [CPT-05885] Name Value Range Interpretation Code Description Data Catrachita rce(s) Supporting Document(s) ID Date Data Source [id number] 07/20/2019 02:01:45 PM [facility] Current Problems: Dental caries (ICD-521 .00) (IDN10-D89.9)Current Medications: * ATROVASTINE * CALIUM * VIT [...] rce(s) Supporting Document(s) ID Date Data Source [id number] 06/27/2019 12:31:58 PM [facility] Current Problems: Dental caries (ICD-521 .00) (YEL18-A07.9)Current Medications: * ATROVASTINE * CALIUM * VIT [...] Never Smoker completed Never S moker eCW1 ([facility]) Smoking 07/09/2020 12:00:00 AM EST Never Smoker completed Never S moker eCW1 ([facility]) Smoking 05/07/2020 12:00:00 AM EST Never Smoker completed Never S moker eCW1 ([facility]) Smoking 05/07/2020 12:00:00 AM EST Never Smoker completed Never S moker eCW1 ([facility]) Smoking 05/07/2020 12:00:00 AM EST Never Smoker completed Never S moker eCW1 ([facility]) Smoking 05/07/2020 12:00:00 AM EST Never Smoker completed Never S moker eCW1 ([facility]) Smoking 05/07/2020 12:00:00 AM EST Never Smoker completed Never S moker [email or web address] (Formerly [facility]) Smoking 05/07/2020 12:00:00 AM EST Never Smoker completed Never S moker [email or web address] (Formerly [facility]) Smoking 09/23/2019 12:00:00 AM EDT Never Smoker completed Never S moker [email or web address] (Formerly [facility]) Smoking 09/23/2019 12:00:00 AM EDT Never Smoker completed Never S moker [email or web address] [facility] [facility] Smoking 09/23/2019 12:00:00 AM EDT Never Smoker completed Never S moker eCW1 (Formerly [facility]) Smoking 09/23/2019 12:00:00 AM EDT Never Smoker completed Never S moker eCW1 (Formerly [facility]) Smoking 09/23/2019 12:00:00 AM EDT Never Smoker completed Never S moker eCW1 ([facility]ly [facility]) Smoking 09/23/2019 12:00:00 AM EDT Never Smoker completed Never S moker eCW1 ([facility]ly [facility]) Smoking 09/23/2019 12:00:00 AM EDT Never Smoker completed Never S moker eCW1 ([facility]ly [facility]) Smoking 09/23/2019 12:00:00 AM EDT Never Smoker completed Never S moker eCW1 (Formerly [facility]) Vital Signs ID Date Data Source UNK Name Value Range Interpretation Code Description Data Source(s) Diastolic blood pressure 72 mm[Hg] 72 mm[Hg] eCW1 ([facility]) Systolic blood pressure 118 mm[Hg] 118 mm[Hg] e CW1 ([facility]) Body temperature 98.1 [degF] 98.1 [degF] eCW1 ( [facility]) Respiratory rate 18 /min 18 /min eCW1 ([facility]) Heart rate 105 /min 105 /min eCW1 ([facility]) Body mass index (BMI) [Ratio] 35.11 kg/m2 35.11 kg/m2 eCW1 ([facility]) Body height 65 [in_i] 65 [in_i] eCW1 ([facility]) Body weight 211 [lb_av] 211 [lb_av] eCW1 ([facility]) Diastolic blood pressure 78 mm[Hg] 78 mm[Hg] eCW1 ([facility]) Systolic blood pressure 124 mm[Hg] 124 mm[Hg] e CW1 ([facility]) Body mass index (BMI) [Ratio] 33.94 kg/m2 33.94 kg/m2 W1 ([facility]) Body height 65 [in_i] 65 [in_i] eCW1 ([facility]) Body weight 204 [lb_av] 204 [lb_av] eCW1 ([facility]) Diastolic blood pressure 80 mm[Hg] 80 mm[Hg] eCW1 ([facility]) Systolic blood pressure 122 mm[Hg] 122 mm[Hg] e CW1 ([facility]) Body temperature 98.2 [degF] 98.2 [degF] eCW1 ( [facility]) Respiratory rate 18 /min 18 /min eCW1 ([facility]) Heart rate 102 /min 102 /min eCW1 ([facility]) Body mass index (BMI) [Ratio] 34.11 kg/m2 34.11 kg/m2 eCW1 ([facility]) Body height 65 [in_i] 65 [in_i] eCW1 ([facility]) Body weight 205.0 [lb_av] 205.0 [lb_av] eCW1 ([facility]) Diastolic blood pressure 70 mm[Hg] 70 mm[Hg] eCW1 ([facility]) Systolic blood pressure 122 mm[Hg] 122 mm[Hg] e CW1 ([facility]) Body mass index (BMI) [Ratio] 28.12 kg/m2 28.12 kg/m2 eCW1 ([facility]) Body height 65 [in_us] 65 [in_us] eCW1 ([facility]) Body weight Measured 169 [lb_av] 169 [lb_av] eC W1 ([facility]) Patient Treatment Plan of Care Planned Activity Planned Date Details Description Data Source (s) Erythromycin 0.005 MG/MG Ophthalmic Ointment 07/09/2020 12:00:00 AM EST eCW1 ([facility]) Erythromycin 0.005 MG/MG Ophthalmic Ointment 07/09/2020 12:00:00 AM EST eCW1 (Formerly [facility])
[2020-07-14 20:49] LABS: HCG, SERUM QUALITATIVE NEGATIVE (NEGATIVE)
[2020-07-14 21:04] LABS: ACETAMINOPHEN LEVEL < 2.0 UG/ML (10.0-30.0); ALBUMIN 3.5 GM/DL (3.2-5.2); ALT/SGPT 17 U/L (12-78); BILIRUBIN,DIRECT < 0.1 MG/DL (0.0-0.2); BILIRUBIN,TOTAL 0.3 MG/DL (0.2-1.0); BLOOD UREA NITROGEN 12 MG/DL (7-18); CALCIUM LEVEL 8.8 MG/DL (8.5-10.1); CARBON DIOXIDE LEVEL 24 MEQ/L (21-32); CHLORIDE LEVEL 108 MEQ/L (98-107); CREATININE FOR GFR 1.04 MG/DL (0.55-1.30); GLOMERULAR FILTRATION RATE > 60.0 (>60); GLUCOSE, FASTING 92 MG/DL (70-100); POTASSIUM SERUM 3.4 MEQ/L (3.5-5.1); SALICYLATE LEVEL < 1.7 MG/DL (5.0-30.0); SODIUM LEVEL 141 MEQ/L (136-145); TOTAL PROTEIN 6.6 GM/DL (6.4-8.2)
[2020-07-14 21:05] LABS: ETHYL ALCOHOL (ETHANOL) < 0.003 % (0.000-0.010)
[2020-07-14] MEDS ORDERED: POTASSIUM CHLORIDE 10 MEQ SR TABLET PO ONE (21:30)
[2020-07-14] MEDS ORDERED: OLAN10TA2 PO (21:48)
[2020-07-14] MEDS ORDERED: FLUO20CA20 PO (21:48)
[2020-07-14] MEDS ORDERED: PRAZ1CAP PO (21:48)
[2020-07-15 00:34] LABS: AMPHETAMINES LEVEL URINE NEGATIVE (NEGATIVE); BARBITURATES URINE NEGATIVE (NEGATIVE); BENZODIAZEPINES URINE POSITIVE (NEGATIVE); CANNABINOIDS URINE NEGATIVE (NEGATIVE); COCAINE METABOLITE URINE NEGATIVE (NEGATIVE); METHADONE URINE NEGATIVE (NEGATIVE); OPIATES URINE NEGATIVE (NEGATIVE); PHENCYCLIDINE URINE NEGATIVE (NEGATIVE)
--- NOTE | 2020-07-15 09:27 | ECGEPIP ---
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
[2020-07-15] MEDS: ATORVASTATIN 20 MG TAB PO SCH (12:55)
[2020-07-15] MEDS ORDERED: PRAZOSIN 1 MG CAP PO SCH (21:00)
[2020-07-15] MEDS ORDERED: OLANZapine 10 MG TAB PO SCH (21:00)
[2020-07-15] MEDS: ZONISAMIDE 100 MG CAP (ZONEGRAN) PO SCH (21:55)
[2020-07-16] MEDS ORDERED: LEVOTHYROXINE 25MCG TABLET (0.025MG) PO SCH (06:00)
[2020-07-16] MEDS: ATORVASTATIN 20 MG TAB PO SCH (09:00)
[2020-07-16] MEDS ORDERED: FLUoxetine 20 MG CAP PO SCH (09:00)
[2020-07-16] MEDS: ZONISAMIDE 100 MG CAP (ZONEGRAN) PO SCH ×2 (09:01→20:55)
[2020-07-16] MEDS ORDERED: MOM 30ML SUSPENSION UDC PO PRN (13:45)
[2020-07-16] MEDS ORDERED: traZODone 50 MG TAB PO PRN (13:45)
[2020-07-16] MEDS ORDERED: ACETAMINOPHEN TAB 650MG DOSE (2X325MG) PO PRN (13:45)
[2020-07-16] MEDS ORDERED: MAALOX 30 ML SUSP *UDC PO PRN (13:45)
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
--- OUTSIDE RECORDS SUMMARY | 2020-07-16 13:53 | CCD ---
Author Author [facility] Organization [facility] Address Unknown Phone Unavailable Care Team Providers Care Kiln Car Repairer Name Role Phone Erma Brock Unavailable Unavailable VinodErma young Unavailable Unavailable VinodErma young Unavailable Unavailable VinodErma young Unavailable Unavailable VinodErma young Unavailable Unavailable VinodErma young Unavailable Unavailable VinodErma Unavailable Unavailable VinodErma young Unavailable Unavailable ViondErma young Unavailable Unavailable VinodErma young Unavailable Unavailable VinodErma Unavailable Unavailable VinodErma young Unavailable Unavailable VinodErma young Unavailable Unavailable VinodErma Unavailable Unavailable VinodErma Unavailable Unavailable VinodErma young [...] is protected by Article 27-F of the [place] Public Health law. If you continue you may have access to information: Regarding HIV / AIDS; Provided by facilities licensed or operated by the [facility] Office of Mental Health; or Provided by the [facility] Office for People With Developmental Disabilities. If such information is present, then the following [facility] mandated warning applies: This information has [...] law may result in a fine or nursing home sentence or both. A general authorization for the release of medical or other information is NOT sufficient authorization for further disc losure. Allergies and Adverse Reactions Type Description Substance Reaction Status Data Source(s ) Drug allergy Lamictal lamotrigine Unknown Active eCW1 ([facility]) Rocephin Rocephin Rocephin Anaphylaxis Active eCW1 ([facility]) ceclor ceclor ceclor Anaphylaxis Active eCW1 ([facility]) Substance/Environmental Agent Allergy Substance/Environmenta l Agent Allergy lamotrigine SJS Severe MEDENT ([facility], ) Substance/Environmental Agent Allergy Substance/Environmenta l Agent Allergy Cefaclor MEDENT ([facility]) Substance/Environmental Agent Allergy Substance/Environmenta l Agent Allergy Cephalosporins ([id number]) MEDENT ([facility], ) Family History Family Member Name Family Member Gender Family Member Status Date o f Status Description Data Source(s) Unknown Unknown Problem MEDENT ([facility], ) father Encounters Encounter Providers Location Date Indications Data Source(s ) Office Visit, Est Pt., Level [address] [place] [address] 07/09/2020 12:00:00 AM EST eCW1 ([facility]) Unknown [address] [facility] [address] 07/09/2020 12:00:00 AM EST eCW1 ([facility]) Unknown [address] [facility] [address] 06/12/2020 12:00:00 AM EST eCW1 ([facility]) [place] [address] [facility] [address] 05/30/2020 12:00:00 AM EST eCW1 ([facility]) [place] [address] [facility] [address] 05/10/2020 12:00:00 AM EST eCW1 ([facility]) [place] [address] [facility] [address] 05/07/2020 12:00:00 AM EST eCW1 ([facility]) [place] [address] [facility] [facility] [address] 05/07/2020 12:00:00 AM EST eCW1 ([facility]) [place] [address] [facility] [facility] [address] 05/07/2020 12:00:00 AM EST eCW1 ([facility]) [place] [address] [facility] [address] 05/01/2020 12:00:00 AM EST eCW1 ([facility]) [place] [address] [facility] [address] 05/01/2020 12:00:00 AM EST eCW1 ([facility]) [place] [address] [facility] [address] 05/01/2020 12:00:00 AM EST eCW1 ([facility]) [place] [address] [facility] [address] 05/01/2020 12:00:00 AM EST eCW1 ([facility]) [place] [address] [facility] [address] 05/01/2020 12:00:00 AM EST eCW1 ([facility]) [place] [address] [facility] [address] 05/01/2020 12:00:00 AM EST eCW1 ([facility]) [place] [address] [facility] [address] 04/09/2020 12:00:00 AM EST eCW1 ([facility]) Outpatient Attender: Daily Brock MD Main office - [place] 03/05/2020 11:00:00 AM EDT MEDENT ([facility]) Outpatient Attender: [facility] 02/29/2020 09:44:01 AM EDT [facility] Outpatient Attender: [facility] 02/21/2020 08:34:03 AM EDT [facility] Outpatient Attender: [facility] 02/21/2020 08:34:02 AM EDT [facility] Outpatient Attender: [facility] 02/17/2020 01:52:01 PM EDT [facility] Outpatient Attender: Daily Brock MD Main office - [place] 11/30/2019 10:15:00 AM EDT MEDENT ([facility]) Unknown [address] [facility] [address] 11/04/2019 12:00:00 AM EDT eCW1 ([facility]) Outpatient Attender: [facility] 10/12/2019 02:40:01 PM EDT [facility] Outpatient Attender: [facility] 10/12/2019 12:59:01 PM EDT [facility] [address] [place] [address] 09/23/2019 12:00:00 AM EDT eCW1 ([facility]) Outpatient Attender: Daily Brock MD Main office - [place] 08/31/2019 11:45:00 AM EDT MEDENT ([facility]) Outpatient Attender: CIT[facility] 08/19/2019 08:02:26 PM EDT [address] [address] 08/09/2019 12:00:00 AM EDT eCW1 ([facility]) Outpatient Attender: [facility] 07/28/2019 04:11:00 PM EST [address] [address] 07/25/2019 12:00:00 AM EST eCW1 [facility] [address] [address] 07/21/2019 12:00:00 AM EST eCW1 ([facility]) Outpatient Att[facility]: [facility] 07/20/2019 03:17:00 PM [facility] Out[facility] 07/20/2019 02:26:00 PM [facility] Outpatient Attender: [facility] 07/20/2019 02:25:00 PM [facility] Outpatient Attender: [facility] 07/20/2019 02:24:01 PM [facility] Outpatient Attender: [facility] 07/18/2019 08:46:01 AM [facility] Outpatient Attender: M[facility]UEL [facility] 07/15/2019 12:57:[address] [address] 07/13/2019 12:00:00 AM EST eCW1 ([facility]) [address] [address] 07/12/2019 12:00:00 AM EST eCW1 ([facility]) [facility] [address] [facility] [address] 07/06/2019 12:00:00 AM EST eCW1 ([facility]) Outpatient Attender: [facility] 06/27/2019 01:26:03 PM [facility] [address] [facility] [address] 06/08/2019 12:00:00 AM EST eCW1 ([facility]) [place] [address] [facility] [address] 06/07/2019 12:00:00 AM EST eCW1 ([facility]) Immunizations Vaccine Date Status Description Data Source(s) influenza, recombinant, quadrIvalent,injectable, prese rvative free 05/07/2020 04:58:00 PM EST completed [facility] influenza, recombinant, quadrIvalent,injectable, prese rvative free 05/07/2020 04:58:00 PM EST completed eCW1 ([facility]) influenza, recombinant, quadrIvalent,injectable, prese rvative free 05/07/2020 04:58:00 PM EST completed eCW1 ([facility]) influenza, recombinant, quadrIvalent,injectable, prese rvative free 05/07/2020 04:58:00 PM EST completed eCW1 ([facility]) influenza, recombinant, quadrIvalent,injectable, prese rvative free 05/07/2020 04:58:00 PM EST completed eCW1 ([facility]) influenza, recombinant, quadrIvalent,injectable, prese rvative free 05/07/2020 04:58:00 PM EST completed eCW1 ([facility]) influenza, recombinant, quadrIvalent,injectable, prese rvative free 05/07/2020 04:58:00 PM EST completed eCW1 ([facility]) influenza, recombinant, quadrIvalent,injectable, prese rvative free 05/07/2020 04:58:00 PM EST completed eCW1 ([facility]) Medications Medication Brand Name Start Date Product [...] AM EST active Erythromycin 5 MG/GM eCW1 ([facility]) Erythromycin 0.005 MG/MG Ophthalmic Ointment Erythromy oleksandr 5 MG/GM Erythromycin 5 MG/GM 07/09/2020 12:00:00 AM EST active Erythromycin 5 MG/GM eCW1 ([facility]) 20 mg 07/06/2020 12:00:00 AM EST capsule [...] active Sennosides-Docusate Sodium 8.6-5 0 MG eCW1 ([facility]) Sennosides-Docusate Sodium 8.6-50 MG UNK 05/07/2020 12:00:00 AM EST active Sennosides-Docusate Sodium 8.6-5 0 MG eCW1 ([facility]) Sennosides-Docusate Sodium 8.6-50 MG UNK 05/07/2020 12:00:00 AM EST suspended Sennosides-Docusate Sodium 8.6-5 0 MG eCW1 ([facility]) Sennosides-Docusate Sodium 8.6-50 MG UNK 05/07/2020 12:00:00 AM EST suspended Sennosides-Docusate Sodium 8.6-5 0 MG eCW1 ([facility]) Sennosides-Docusate Sodium 8.6-50 MG UNK 05/07/2020 12:00:00 AM EST active Sennosides-Docusate Sodium 8.6-5 0 MG eCW1 ([facility]) Sennosides-Docusate Sodium 8.6-50 MG UNK 05/07/2020 12:00:00 AM EST active Sennosides-Docusate Sodium 8.6-5 0 MG eCW1 ([facility]) Sennosides-Docusate Sodium 8.6-50 MG UNK 05/07/2020 12:00:00 AM EST active Sennosides-Docusate Sodium 8.6-5 0 MG eCW1 ([facility]) Sennosides-Docusate Sodium 8.6-50 MG UNK 05/07/2020 12:00:00 AM EST active Sennosides-Docusate Sodium 8.6-5 0 MG eCW1 ([facility]) 10 mg 05/03/2020 12:00:00 AM EST tablet [...] A DAY WIT H FOOD SOLD: 04/23/2020 [facility] 600 mg(1,500mg) -400 unit 12/04/2019 [...] O N AN EMPTY STOMACH SOLD: 10/07/2019 [facility] 1,250 mcg (50,000 unit) 07/08/2019 [...] = THREE TABLETS SOLD: 05/19/2019 [facility] 10 mg 05/05/2019 12:00:00 AM [...] type / Coverage type Policy ID Covered libertarian ID Covered libertarian's relationship to flores Policy Flores Plan Information EMEDISMA [id number] SP [id number] [facility] [id number] SP [id number] [facility] [id number] SP [id number] [facility] [id number] SP [id number] [facility] [id number] SP [id number] MEDICARE COMPLETE [id number] SP [id number] MEDICARE COMPLETE [id number] SP [id number] Medicaid S UNAVAILABLE S UNAVAILA BLE [facility] Secure Horizons P [id number] S [id number] MEDICAID [id number] SP [id number] MEDICARE [id number] SP [id number] A MEDICAID M [id number] Self [id number] MEDICARE A [id number] Self [id number] A MEDICARE [id number] SP [id number] [facility] O [id number] S [id number] MEDICAID M [id number] S [id number] Medicare P UNAVAILABLE S UNAVAILA BLE MEDICARE [id number] SP [id number] MEDICARE [id number] SP [id number] A ANSI-Medicaid [id number] ANSI-Medicare Part B [id number] ANSI-Not a Secondary Insurance [id number] ANSI-Medicare Part B [id number] ANSI-Medicaid [id number] ANSI-Not a Secondary Insurance [id number] ANSI-Medicare Part B [id number] ANSI-Not a Secondary Insurance [id number] ANSI-Medicaid [id number] ANSI-Not a Secondary Insurance [id number] ANSI-Medicaid [id number] ANSI-Medicare Part B [id number] ANSI-Medicare Part B [id number] ANSI-Not a Secondary Insurance [id number] ANSI-Medicaid [id number] ANSI-Medicaid [id number] ANSI-Not a Secondary Insurance [id number] ANSI-Medicare Part B [id number] ANSI-Medicaid [id number] ANSI-Not a Secondary Insurance [id number] ANSI-Medicare Part B [id number] [facility] [id number] SP [id number] MEDICARE [id number] SP [id number] A Medicaid CT Medigap Part B [id number] Self [id number] [place] Medicare Primary [id number] Self [id number] Medicaid CT Medigap Part B [id number] Self [id number] [place] Medicare Primary [id number] Self [id number] Medicaid CT Medigap Part B [id number] Self [id number] [place] Primary [id number] Self [id number] MEDICAID [id number] SP [id number] MEDICAID [id number] SP [id number] MEDICARE P [id number] S [id number] A [id number] A [id number] Problems, Conditions, and Diagnoses Code Display Name Description Problem Type Effective Dates Data Source(s) F20.0 [id number] Paranoid schizophrenia Problem 05/07/2020 12 :00:00 AM EST eCW1 ([facility]) K59.09 [id number] Constipation, chronic Problem 05/07/2020 12: 00:00 AM EST eCW1 ([facility]) 528.9 Other and unspecified diseases of the or al soft tissues Other and unspecified diseases of the oral soft tissues 02/21/2020 08: 33:50 AM EDT [facility] N93.9 Abnormal uterine bleeding Abnormal uterine bleeding (A UB) Problem 08/07/2019 12:00:00 AM EDT eCW1 ([facility]) N93.9 Abnormal uterine bleeding Abnormal uterine bleeding (A UB) Problem 08/07/2019 12:00:00 AM EDT eCW1 ([facility]) Surgeries/Procedures Procedure Description Date Indications Data Source(s) Immunization: Flublok Quadrivalent (18 years & older) 0.5mL IM (Influenza) 05/07/2020 12:00:00 AM EST eCW1 ([facility]) MRI Brain W/O Contrast, Followed By Contrast 0 12:00:00 AM EDT MEDENT ([facility]) MRI Brain W/O Contrast, Followed By Contrast 0 12:00:00 AM EDT MEDENT ([facility] ) Results ID Date Data Source [id number] 06/02/2020 08:04:00 PM EST [facility] Name Value Range Interpretation Code Description Data Catrachita rce(s) Supporting Document(s) SARS-CoV-2 (COVID 19) NEGATIVE - SARS-CoV-2 (COVID19) [facility] This lab was ordered by [facility] a nd reported by [facility]. ID Date Data Source PROLACTIN 05/07/2020 12:00:00 AM EST eCW1 ([facility]) Name Value Range Interpretation Code Description Data Catrachita rce(s) Supporting Document(s) 10.9 eCW1 ([facility]) ID Date Data Source PTH INTACT 05/07/2020 12:00:00 AM EST eCW1 ([facility]) Name Value Range Interpretation Code Description Data Catrachita rce(s) Supporting Document(s) 13.8 18.5-88.0 PTH INTACT W1 ([facility]) ID Date Data Source VITAMIN D 25-HYDROXY 05/07/2020 12:00:00 AM EST eCW1 ([facility]) Name Value Range Interpretation Code Description Data Catrachita rce(s) Supporting Document(s) 44.8 30.0-100.0 TOTAL 25(OH) VITAMIN D eC W1 ([facility]) ID Date Data Source FSH & LH EVAL 05/07/2020 12:00:00 AM EST eCW1 ([facility]) Name Value Range Interpretation Code Description Data Catrachita rce(s) Supporting Document(s) 4.1 eCW1 ([facility]) 5.6 eCW1 ([facility]) ID Date Data Source INSULIN LEVEL 05/07/2020 12:00:00 AM EST eCW1 ([facility]) Name Value Range Interpretation Code Description Data Catrachita rce(s) Supporting Document(s) 11.3 2.6-24.9 eCW1 ([facility]) ID Date Data Source Comprehensive Metabolic Profile (CMP) 05/07/2020 12:00:00 AM EST eCW1 ([facility]) Name Value Range Interpretation Code Description Data Catrachita rce(s) Supporting Document(s) 11 7-18 BLOOD UREA NITROGEN eCW1 ([facility]) > 60.0 >60 GLOMERULAR FILTRATION RATE eCW 1 ([facility]) 0.96 0.55-1.30 CREATININE FOR GFR eCW1 ([facility]) 79 70-100 GLUCOSE, FASTING eCW1 ([facility]) 110 98-107 CHLORIDE LEVEL eCW1 ([facility]) 140 136-145 SODIUM LEVEL eCW1 ([facility]) 4.5 3.5-5.1 POTASSIUM SERUM eCW1 ([facility]) 26 21-32 CARBON DIOXIDE LEVEL eCW1 ([facility]) 0.2 0.2-1.0 BILIRUBIN,TOTAL eCW1 ([facility]) 12 7-37 AST/SGOT eCW1 ([facility]) 22 12-78 ALT/SGPT eCW1 ([facility]) 91 45-117 ALKALINE PHOSPHATASE eCW1 ([facility]) 9.2 8.5-10.1 CALCIUM LEVEL eCW1 ([facility]) 1.4 1.2-2.2 ALBUMIN/GLOBULIN RATIO eCW1 ([facility]) 6.7 6.4-8.2 TOTAL PROTEIN eCW1 ([facility]) 3.9 3.2-5.2 ALBUMIN eCW1 ([facility]) ID Date Data Source LIPID PANEL (CARDIAC RISK) 05/07/2020 12:00:00 AM EST eCW1 ( [facility]) Name Value Range Interpretation Code Description Data Catrachita rce(s) Supporting Document(s) Cholesterol [Moles/volume] in Serum or Plasma 135 <200 CHOLESTEROL LEVEL eCW1 ([facility]) Triglyceride [Mass/volume] in Serum or Plasma by calculation 75 <150 TRIGLYCERIDES LEVEL eCW1 ([facility]) 2.368 <5 CHOLESTEROL RISK RATIO eCW1 ([facility]) 78 NON-HDL-C eCW1 ([facility]) Cholesterol in HDL [Moles/volume] in Serum or Plasma 57 >40 HDL CHOLESTEROL eCW1 ([facility]) Cholesterol in LDL [Mass/volume] in Serum or Plasma by calculation 63 <100 LDL CHOLESTEROL eCW1 ([facility]) ID Date Data Source FREE T4 & TSH PANEL 05/07/2020 12:00:00 AM EST eCW1 ([facility]) Name Value Range Interpretation Code Description Data Catrachita rce(s) Supporting Document(s) 2.250 0.358-3.740 THYROID STIMULATING HORM ONE eCW1 ([facility]) 0.73 0.76-1.46 FREE T4 eCW1 ([facility]) ID Date Data Source CORTISOL BASELINE 05/07/2020 12:00:00 AM EST eCW1 ([facility]) Name Value Range Interpretation Code Description Data Catrachita rce(s) Supporting Document(s) 3.4 4.3-22.4 eCW1 ([facility]) ID Date Data Source ADRENOCORTICOTROPHIC HORMONE 05/07/2020 12:00:00 AM EST eCW1 ([facility]) Name Value Range Interpretation Code Description Data Catrachita rce(s) Supporting Document(s) 10.2 7.2-63.3 eCW1 ([facility]) ID Date Data Source [id number] 05/07/2020 12:00:00 AM EST eCW1 ([facility]) Name Value Range Interpretation Code Description Data Catrachita rce(s) Supporting Document(s) Hemoglobin A1c/Hemoglobin.total in Blood 5.5 HEMOGLOBIN A1c eCW1 ([facility]) ID Date Data Source CBC with Differential 05/07/2020 12:00:00 AM EST eCW1 ([facility]) Name Value Range Interpretation Code Description Data Catrachita rce(s) Supporting Document(s) 10.0 4.0-10.0 WHITE BLOOD COUNT eCW1 ([facility]) 4.64 4.00-5.40 RED BLOOD COUNT eCW1 ([facility]) 14.2 12.0-15.5 HEMOGLOBIN eCW1 ([facility]) 44.7 36.0-47.0 HEMATOCRIT eCW1 ([facility]) 96.3 80.0-96.0 MEAN CORPUSCULAR VOLUME e CW1 ([facility]) 31.8 32.0-36.5 MEAN CORPUSCULAR HGB CONC eCW1 ([facility]) 30.6 27.0-33.0 MEAN CORPUSCULAR HEMOGLOB IN eCW1 ([facility]) 12.7 11.5-14.5 RED CELL DISTRIBUTION WID TH eCW1 ([facility]) 67.3 36.0-66.0 NEUTROPHILS % eCW1 ([facility]) 278 150-450 PLATELET COUNT, AUTOMATED eCW1 ([facility]) 7.0 0.0-5.0 MONO % eCW1 ([facility]) 23.5 24.0-44.0 LYMPH % eCW1 ([facility]) 0.5 0.0-1.0 BASO % eCW1 ([facility]) 6.7 1.5-8.5 NEUTROPHILS # eCW1 ([facility]) 1.4 0.0-3.0 EOS % eCW1 ([facility] hospital) 0.1 0.0-0.5 EOS # eCW1 ([facility] hospital) 2.4 1.5-5.0 LYMPH # eCW1 ([facility] hospital) 0.1 0.0-0.2 BASO # eCW1 ([facility] hospital) 0.7 0.0-0.8 MONO # eCW1 ([facility]) ID Date Data Source [id number] 02/20/2020 01:58:04 PM EDT [facility] Current Problems: Other and unspecified diseases of the oral soft tissues (ICD- 528.9) (EID45-M10.89)Dental caries (ICD-521.00) (FIZ61-V82.9)Current Medications: * ATROVASTINE * CALIUM * VIT [...] (Critical)* CECHLOR (Critical)* LAMECTORAL (Critical)Orders:Oral Surgery Referral [CPT-65624] Name Value Range Interpretation Code Description Data Catrachita rce(s) Supporting Document(s) ID Date Data Source [id number] 07/20/2019 02:01:45 PM [facility] Current Problems: Dental caries (ICD-521 .00) (JHO70-K23.9)Current Medications: * ATROVASTINE * CALIUM * VIT [...] rce(s) Supporting Document(s) ID Date Data Source [id number] 06/27/2019 12:31:58 PM [facility] Current Problems: Dental caries (ICD-521 .00) (PAM31-Y29.9)Current Medications: * ATROVASTINE * CALIUM * VIT [...] Never Smoker completed Never S moker eCW1 ([facility]) Smoking 07/09/2020 12:00:00 AM EST Never Smoker completed Never S moker eCW1 ([facility]) Smoking 05/07/2020 12:00:00 AM EST Never Smoker completed Never S moker eCW1 ([facility]) Smoking 05/07/2020 12:00:00 AM EST Never Smoker completed Never S moker eCW1 ([facility]) Smoking 05/07/2020 12:00:00 AM EST Never Smoker completed Never S moker eCW1 ([facility]) Smoking 05/07/2020 12:00:00 AM EST Never Smoker completed Never S moker eCW1 ([facility]) Smoking 05/07/2020 12:00:00 AM EST Never Smoker completed Never S moker eCW1 ([facility]) Smoking 05/07/2020 12:00:00 AM EST Never Smoker completed Never S moker eCW1 ([facility]) Smoking 09/23/2019 12:00:00 AM EDT Never Smoker completed Never S moker eCW1 ([facility]) Smoking 09/23/2019 12:00:00 AM EDT Never Smoker completed Never S moker eCW1 ([facility]) Smoking 09/23/2019 12:00:00 AM EDT Never Smoker completed Never S moker eCW1 ([facility]) Smoking 09/23/2019 12:00:00 AM EDT Never Smoker completed Never S moker eCW1 ([facility]) Smoking 09/23/2019 12:00:00 AM EDT Never Smoker completed Never S moker eCW1 ([facility]) Smoking 09/23/2019 12:00:00 AM EDT Never Smoker completed Never S moker eCW1 ([facility]) Smoking 09/23/2019 12:00:00 AM EDT Never Smoker completed Never S moker eCW1 ([facility]) Smoking 09/23/2019 12:00:00 AM EDT Never Smoker completed Never S moker eCW1 ([facility]) Vital Signs ID Date Data Source UNK Name Value Range Interpretation Code Description Data Source(s) Diastolic blood pressure 72 mm[Hg] 72 mm[Hg] eCW1 ([facility]) Systolic blood pressure 118 mm[Hg] 118 mm[Hg] e CW1 ([facility]) Body temperature 98.1 [degF] 98.1 [degF] eCW1 ( [facility]) Respiratory rate 18 /min 18 /min eCW1 ([facility]) Heart rate 105 /min 105 /min eCW1 ([facility]) Body mass index (BMI) [Ratio] 35.11 kg/m2 35.11 kg/m2 eCW1 ([facility]) Body height 65 [in_i] 65 [in_i] eCW1 ([facility]) Body weight 211 [lb_av] 211 [lb_av] eCW1 ([facility]) Diastolic blood pressure 78 mm[Hg] 78 mm[Hg] eCW1 ([facility]) Systolic blood pressure 124 mm[Hg] 124 mm[Hg] e CW1 ([facility]) Body mass index (BMI) [Ratio] 33.94 kg/m2 33.94 kg/m2 eCW1 ([facility]) Body height 65 [in_i] 65 [in_i] eCW1 ([facility]) Body weight 204 [lb_av] 204 [lb_av] eCW1 ([facility]) Diastolic blood pressure 80 mm[Hg] 80 mm[Hg] eCW1 ([facility]) Systolic blood pressure 122 mm[Hg] 122 mm[Hg] e CW1 ([facility]) Body temperature 98.2 [degF] 98.2 [degF] eCW1 ( [facility]) Respiratory rate 18 /min 18 /min eCW1 ([facility]) Heart rate 102 /min 102 /min eCW1 ([facility]) Body mass index (BMI) [Ratio] 34.11 kg/m2 34.11 kg/m2 eCW1 ([facility]) Body height 65 [in_i] 65 [in_i] eCW1 ([facility]) Body weight 205.0 [lb_av] 205.0 [lb_av] eCW1 ([facility]) Diastolic blood pressure 70 mm[Hg] 70 mm[Hg] eCW1 ([facility]) Systolic blood pressure 122 mm[Hg] 122 mm[Hg] e CW1 ([facility]) Body mass index (BMI) [Ratio] 28.12 kg/m2 28.12 kg/m2 eCW1 ([facility]) Body height 65 [in_us] 65 [in_us] eCW1 ([facility]) Body weight Measured 169 [lb_av] 169 [lb_av] eC W1 ([facility]) Patient Treatment Plan of Care Planned Activity Planned Date Details Description Data Source (s) Erythromycin 0.005 MG/MG Ophthalmic Ointment 07/09/2020 12:00:00 AM EST eCW1 ([facility]) Erythromycin 0.005 MG/MG Ophthalmic Ointment 07/09/2020 12:00:00 AM EST eCW1 ([facility])
[2020-07-16 14:52] VITALS: BP 133/78
[2020-07-16] MEDS ORDERED: ALBUTEROL SULFATE 2.5 MG/0.5 ML INH NEB SOLN INH PRN (15:15)
[2020-07-16] MEDS: OLANZapine 10 MG TAB PO SCH (20:55)
[2020-07-16] MEDS: PRAZOSIN 1 MG CAP PO SCH (20:55)
[2020-07-17 06:00] VITALS: BP 105/60
[2020-07-17] MEDS: LEVOTHYROXINE 25MCG TABLET (0.025MG) PO SCH (06:23)
[2020-07-17] MEDS: ATORVASTATIN 20 MG TAB PO SCH (08:56)
[2020-07-17] MEDS: FLUoxetine 20 MG CAP PO SCH (08:56)
[2020-07-17] MEDS: ZONISAMIDE 100 MG CAP (ZONEGRAN) PO SCH ×2 (08:57→21:26)
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
[2020-07-17 18:50] VITALS: BP 117/63
--- NOTE | 2020-07-17 19:09 | HPEPDOC ---
General Date of Admission Jul 16, 2020 at 13:41 Date of Service: Jul 17, 2020 Chief Complaint The patient is a 35-year-old female admitted with a reason for visit of Other Specified Psychotic Disorder. History of Present Illness 35 year old female admitted to [facility] for unspecified psychotic disorder. She is being examined here for medical history and physical. She is somnolent but easily arousable. She is slow in her responses but cooperative. Says that she is very tired and wants to sleep but agreed to a physical exam. She denied any other complaints. Home Medications Scheduled Atorvastatin Calcium (Lipitor) 20 Mg Tab, 20 MG PO DAILY, (Reported) Calcium Carbonate/Vitamin D3 (Calcium 600-Vit D3 200 Tablet) 1 Tab Tab, 1 TAB PO BID, (Reported) Clobazam (Clobazam) 10 Mg Tablet, 15 MG PO BID, (Reported) Ergocalciferol (Vitamin D2) (Vitamin D2) 50,000 Units Cap, 50,000 UNITS PO Q2WK, (Reported) EVERY OTHER THURSDAY Erythromycin Base (Erythromycin) 1 Gm Oint...g., 3.5 G OU DAILY, (Reported) Fluoxetine Hcl (Fluoxetine HCl) 20 Mg Capsule, 60 MG PO DAILY, (Reported) Levothyroxine Sodium (Levothyroxine Sodium) 25 Mcg Tab, 25 MCG PO DAILY, (Reported) Olanzapine (Olanzapine) 10 Mg Tablet, 20 MG PO QHS, (Reported) Prazosin Hcl (Prazosin HCl) 1 Mg Capsule, 1 MG PO QHS, (Reported) Zonisamide (Zonisamide) 100 Mg Cap, 200 MG PO BID, (Reported) Scheduled PRN Albuterol Sulf (Albuterol Sulfate) 2.5 Mg/3 Ml Vial.neb, 2.5 MG INH QID PRN for SOB/WHEEZING, (Reported) Allergies Coded Allergies: Cephalosporins (Verified Allergy, Intermediate, HIVES, 03/28/20) cefaclor (Verified Allergy, Unknown, 07/12/19) lamotrigine (Verified Adverse Reaction, Severe, SJS, 07/12/19) Past Medical History Medical History Mild intellectual disability GERD/Hiatal hernia/Gastroparesis Nonalcoholic fatty liver disease Asthma Allergic rhinitis Paranoid schizophrenia Temporal lobe seizure Obesity Hypothyroid Iron def Menorrhagia HLD Surgical History Appendectomy Pyloric stenosis Tumor removed from uterus Endometrial ablation Family History Significant Family History: Diabetes Social History * Smoker: Denies Alcohol: Denies Drugs: denies A-FIB/CHADSVASC A-FIB History Current/History of A-Fib/PAF?: No Review of Systems Constitutional: Reports: Fatigue; Denies: Chills, Fever, Night Sweats Eyes: Denies: Pain, Vision change ENT: Denies: Head Aches, Ear Pain, Dysphagia Skin: Denies: Rash, Lesions, Breakdown Pulmonary: Denies: Dyspnea, Cough Cardiovascular: Denies: Chest Pain, Palpitations, Orthopnea, Paroxysmal Noc. Dyspnea, Lt Headedness Gastrointestinal: Denies: Nausea, Vomiting, Abdominal Pain, Diarrhea Hematologic: Denies: Bruising, Bleeding Excessively Physical Examination General Exam: Positive: Alert, Cooperative, No Acute Distress Eye Exam: Positive: PERRLA, Conjunctiva & lids normal, EOMI; Negative: Sclera icteric ENT Exam: Positive: Atraumatic, Mucous membr. moist/pink, Pharynx Normal Neck Exam: Positive: Supple; Negative: JVD, thyromegaly Chest Exam: Positive: Clear to auscultation, Normal air movement Heart Exam: Positive: Rate Normal, Regular Rhythm, Normal S1, Normal S2; Negative: Murmurs, Rubs Abdomen Exam: Positive: Normal bowel sounds, Soft; Negative: Tenderness, Hepatospenomegaly Extremity Exam: Negative: Clubbing, Cyanosis, Edema Vital Signs Vital Signs Date Time Temp Pulse Resp B/P (MAP) Pulse Ox O2 Delivery O2 Flow Rate FiO2 07/17/20 08:49 Room Air 07/17/20 06:00 97.9 66 16 105/60 (75) 07/16/20 14:06 95 Laboratory Data Microbiology Microbiology 07/16/20 Respiratory Virus Panel (PCR) ([facility]) - Final, Complete Assessment/Plan 35 year old female with Mild intellectual disability, GERD/Hiatal hernia/Gastroparesis, Nonalcoholic fatty liver disease, Asthma, Allergic rhini tis, Paranoid schizophrenia, Temporal lobe seizure, Obesity, Hypothyroid, HLD was admitted to [facility] for unspecified psychotic disorder. She is being examined here for medical history and physical. Hypothyroid synthroid HLD statin Asthma albuterol prn Temporal lobe epilepsy Zonisamide Schizophrenia as per psychiatry. GERD/ Gastroparesis mylanta prn. Plan / VTE VTE Prophylaxis Ordered?: No (freely ambulatory) ROBERT ALCALA MD Jul 17, 2020 15:14
[2020-07-17] MEDS: OLANZapine 10 MG TAB PO SCH (21:26)
[2020-07-17] MEDS: PRAZOSIN 1 MG CAP PO SCH (21:28)
[2020-07-18 06:00] VITALS: BP 100/55
[2020-07-18] MEDS: LEVOTHYROXINE 25MCG TABLET (0.025MG) PO SCH (06:11)
[2020-07-18] MEDS: ATORVASTATIN 20 MG TAB PO SCH (08:36)
[2020-07-18] MEDS: FLUoxetine 20 MG CAP PO SCH (08:36)
[2020-07-18] MEDS: ZONISAMIDE 100 MG CAP (ZONEGRAN) PO SCH ×2 (08:36→20:26)
--- NOTE | 2020-07-18 16:16 | MHIPNPDOC ---
[facility] Progress Note Progress Note DATE OF SERVICE: 07/18/20 HISTORY: "Thursday Night I had voices telling me to cut myself." History of Present Illness HISTORY OF THE PRESENT ILLNESS: Patient is a 35 -year-old Single, Intellectually Disabled, Domiciled , female, who reports that she has voices telling her to harm herself. Patient was recently discharged from this facility on 07/06/20 and has been living with derogatory and command hallucinations. She has a diagnosis of Schizophrenia. This is a patient with numerous psychiatric admissions and was recently admitted from 06/03/20-07/06/20. Per ED report: Pt expressing SI today, mother called 911 with concerns that pt may harm herself. Pt well known from prior Psych admissions, has hx of Schizophrenia and mild intellectual development d/o. Chief Complaint - Pt is calm, guarded, gives delayed, one word answers to most questions, admits she has been having Command AH to harm self. Pt reports the "voices are telling me to do it", pt adds that AH commanding her to "cut my wrist". Pt also reports the voices are telling her to harm her mother as well. PT was d/c'd from [facility] x1 week ago, has multiple prior admissions to [facility], is currently seen at [facility], pt reports compliance with outpt tx and medications. Pt also stating she feels "sad" and "depressed" though is guarded about any specific stressors, denies any substance abuse, admits to prior attempts at self-harm, typically by cutting self. Pt denies any change in sleep or appetite recently, continues to voice SI with plan in ED. VITAL SIGNS: See below. CURRENT MEDICATIONS: See below. MENTAL STATUS EXAMINATION: Patient is a 35 -year-old Single, Intellectually Disabled, Domiciled , female, who reports that she has voices telling her to harm herself. General Appearance: unkempt, disheveled, hospital scrubs/clothing Build: overweight Demeanor: withdrawn, guarded Eye Contact: avoided Activity: average Behavior: cooperative Speech: impoverished Mood: depressed, anxious Affect: constricted, flat Thought Process: logical/linear Thought Content (Other): internal-stimuli Thought Content (Aggressive): none reported Perception (Hallucinations): auditory Cognition (Impairment of): none reported Cognition(Intelligence Est.): MR Oriented: Awake, Alert, Oriented times three Insight: fair Judgment: Fair Psychosis: Command hallucinations to cut herself DIAGNOSES: Schizophrenia Intellectual Disability ASSESSMENT: Patient is observed to be withdrawn and mildly guarded but this presentation is similar to her last few hospitalizations. Patient reports no depression, no anxiety but states that she does have auditory hallucinations to cut herself. She reports that she had not tried while in the hospital but that she had strong ideation last evening. Patient was found in her sleeping, which she did most of her last admission. When she was encouraged to be in the milieu she states that she wants to sleep, likes to stay by herself. Patient is intellectually disabled and her ability to communicate her mood, emotions and feelings are delayed and cannot be expressed by the patient beyond, "I hear the voices, they tell me to cut myself." MANAGEMENT PLAN: Continue all medications, routine observations, will discharge when patient is stable TIME SPENT: 25 minutes. Vital Signs Vital Signs Date Time Temp Pulse Resp B/P (MAP) Pulse Ox O2 Delivery O2 Flow Rate FiO2 07/18/20 08:26 Room Air 07/18/20 06:00 97.2 68 18 100/55 (70) 95 Current Medications Current Medications Medications (Trade) Dose Ordered Sig/Jonathan Route PRN Reason Start Time Stop Time Status Last Admin Dose Admin Acetaminophen (Tylenol Tab) 650 mg Q6HP PRN PO HEADACHE or DISCOMFORT 07/16/20 13:45 Al Hydrox/Mg Hydrox/Simethicone (Mylanta) 30 ml Q4HP PRN PO HEARTBURN/INDIGESTION 07/16/20 13:45 Albuterol Sulfate (Proventil Neb) 2.5 mg QID PRN INH SOB/WHEEZING 07/16/20 15:15 Atorvastatin Calcium (Lipitor) 20 mg DAILY PO 07/15/20 09:00 07/16/20 15:18 DC 07/16/20 09:00 Atorvastatin Calcium (Lipitor) 20 mg DAILY PO 07/17/20 09:00 07/18/20 08:36 Clobazam (Onfi) 15 mg BID PO 07/15/20 21:00 07/16/20 15:19 DC 07/16/20 09:00 Clobazam (Onfi) 15 mg BID PO 07/16/20 09:00 Cancel Clobazam (Onfi) 15 mg BID PO 07/16/20 21:00 07/18/20 08:36 Fluoxetine HCl (PROzac) 60 mg DAILY PO 07/16/20 09:00 07/16/20 15:19 DC 07/16/20 09:00 Fluoxetine HCl (PROzac) 60 mg DAILY PO 07/17/20 09:00 07/18/20 08:36 Home Med (Med Rec Complete!) ASDIRECTED XX 07/14/20 22:15 07/14/20 22:27 DC Levothyroxine Sodium (Synthroid) 25 mcg DAILY@06 PO 07/16/20 06:00 07/16/20 15:20 DC 07/16/20 06:04 Levothyroxine Sodium (Synthroid) 25 mcg DAILY@0600 PO 07/17/20 06:00 07/18/20 06:11 Magnesium Hydroxide (Milk Of Magnesia) 30 ml DAILYPRN PRN PO CONSTIPATION 07/16/20 13:45 Miscellaneous (Unresolved Clarification Entry) SEE LABEL COMMENTS DAILY XX 07/16/20 09:00 07/16/20 16:06 DC Olanzapine (ZyPREXA) 20 mg QHS PO 07/15/20 21:00 07/16/20 15:59 DC 07/15/20 21:54 Olanzapine (ZyPREXA) 20 mg QHS PO 07/16/20 21:00 07/17/20 21:26 Prazosin HCl (Minipress) 1 mg QHS PO 07/15/20 21:00 07/16/20 15:21 DC 07/15/20 21:54 Prazosin HCl (Minipress) 1 mg QHS PO 07/16/20 21:00 07/17/20 21:28 Trazodone HCl (Desyrel) 50 mg QHSP PRN PO INSOMNIA 07/16/20 13:45 Zonisamide (Zonegran) 200 mg BID PO 07/15/20 21:00 07/16/20 15:22 DC 07/16/20 09:01 Zonisamide (Zonegran) 200 mg BID PO 07/16/20 21:00 07/18/20 08:36 Allergies Coded Allergies: Cephalosporins (Verified Allergy, Intermediate, HIVES, 03/28/20) cefaclor (Verified Allergy, Unknown, 07/12/19) lamotrigine (Verified Adverse Reaction, Severe, SJS, 07/12/19) CHANELLE DENNISON NP Jul 18, 2020 16:16
[2020-07-18 17:50] VITALS: BP 117/70
[2020-07-18] MEDS: OLANZapine 10 MG TAB PO SCH (20:26)
[2020-07-18] MEDS: PRAZOSIN 1 MG CAP PO SCH (20:29)
[2020-07-19] MEDS: LEVOTHYROXINE 25MCG TABLET (0.025MG) PO SCH (06:10)
[2020-07-19 06:13] VITALS: BP 106/52
[2020-07-19] MEDS: ATORVASTATIN 20 MG TAB PO SCH (08:37)
[2020-07-19] MEDS: FLUoxetine 20 MG CAP PO SCH (08:37)
[2020-07-19] MEDS: ZONISAMIDE 100 MG CAP (ZONEGRAN) PO SCH ×2 (08:38→20:14)
[2020-07-19] MEDS ORDERED: BENZTROPINE 0.5 MG TAB PO PRN (08:50)
[2020-07-19] MEDS: OLANZapine 5 MG TAB PO SCH (09:53)
--- NOTE | 2020-07-19 11:36 | MHIPNPDOC ---
[facility] Progress Note Progress Note DATE OF SERVICE: 07/19/20 HISTORY: "Thursday Night I had voices telling me to cut myself." HISTORY OF THE PRESENT ILLNESS: Patient is a 35 -year-old Single, Intellectually Disabled, Domiciled , female, who reports that she has voices telling her to harm herself. Patient was recently discharged from this facility on 07/06/20 and has been living with derogatory and command hallucinations. She has a diagnosis of Schizophrenia. This is a patient with numerous psychiatric admissions and was recently admitted from 06/03/20-07/06/20. Per ED report: Pt expressing SI today, mother called 911 with concerns that pt may harm herself. Pt well known from prior Psych admissions, has hx of Schizophrenia and mild intellectual development d/o. VITAL SIGNS: See below. CURRENT MEDICATIONS: See below. MENTAL STATUS EXAMINATION: Patient is a 35 -year-old Single, Intellectually Disabled, Domiciled , female, who reports that she has voices telling her to harm herself. General Appearance: unkempt, disheveled, hospital scrubs/clothing, poor hygiene and grooming Build: overweight Demeanor: withdrawn, guarded Eye Contact: avoided Activity: minimal, stays in bed, withdrawn Behavior: cooperative Speech: impoverished Mood: depressed, Affect: flat Thought Process: logical/linear Thought Content (Other): internal-stimuli Thought Content (Aggressive): none reported Perception (Hallucinations): auditory Cognition (Impairment of): none reported Cognition(Intelligence Est.): MR Oriented: Awake, Alert, Oriented times three Insight: fair Judgment: Fair Psychosis: Command hallucinations to cut herself DIAGNOSES: Schizophrenia Intellectual Disability ASSESSMENT: Patient observed withdrawn and isolative. This is her normal routine when she was previously hospitalized. Reporting today continued auditory hallucinations. Initiated Zyprexa 5 mg in AM. Due to continued observations of Depression increased Fluoxetine to 80 mg. Patient is not participating in groups as she stated in her last admission that she does not feel comfortable in groups. Patient has poor communication due to intellectual disability. Has poor attention to ADLs MANAGEMENT PLAN: Continue all medications, Zyprexa 5 mg in AM. Increase Fluoxetine to 80 mg routine observations, will discharge when patient is stable TIME SPENT: 25 minutes. Vital Signs Vital Signs Date Time Temp Pulse Resp B/P (MAP) Pulse Ox O2 Delivery O2 Flow Rate FiO2 2/25/21 06:13 98.0 63 20 106/52 (70) 96 Room Air Current Medications Current Medications Medications (Trade) Dose Ordered Sig/Jonathan Route PRN Reason Start Time Stop Time Status Last Admin Dose Admin Acetaminophen (Tylenol Tab) 650 mg Q6HP PRN PO HEADACHE or DISCOMFORT 07/16/20 13:45 Al Hydrox/Mg Hydrox/Simethicone (Mylanta) 30 ml Q4HP PRN PO HEARTBURN/INDIGESTION 07/16/20 13:45 Albuterol Sulfate (Proventil Neb) 2.5 mg QID PRN INH SOB/WHEEZING 07/16/20 15:15 Atorvastatin Calcium (Lipitor) 20 mg DAILY PO 07/15/20 09:00 07/16/20 15:18 DC 07/16/20 09:00 Atorvastatin Calcium (Lipitor) 20 mg DAILY PO 07/17/20 09:00 07/19/20 08:37 Benztropine Mesylate (Cogentin) 0.5 mg BIDP PRN PO EPS 07/19/20 08:50 Clobazam (Onfi) 15 mg BID PO 07/15/20 21:00 07/16/20 15:19 DC 07/16/20 09:00 Clobazam (Onfi) 15 mg BID PO 07/16/20 09:00 Cancel Clobazam (Onfi) 15 mg BID PO 07/16/20 21:00 07/19/20 08:38 Fluoxetine HCl (PROzac) 60 mg DAILY PO 07/16/20 09:00 07/16/20 15:19 DC 07/16/20 09:00 Fluoxetine HCl (PROzac) 60 mg DAILY PO 07/17/20 09:00 07/19/20 08:37 Home Med (Med Rec Complete!) ASDIRECTED XX 07/14/20 22:15 07/14/20 22:27 DC Levothyroxine Sodium (Synthroid) 25 mcg DAILY@06 PO 07/16/20 06:00 07/16/20 15:20 DC 07/16/20 06:04 Levothyroxine Sodium (Synthroid) 25 mcg DAILY@0600 PO 07/17/20 06:00 07/19/20 06:10 Magnesium Hydroxide (Milk Of Magnesia) 30 ml DAILYPRN PRN PO CONSTIPATION 07/16/20 13:45 Miscellaneous (Unresolved Clarification Entry) SEE LABEL COMMENTS DAILY XX 07/16/20 09:00 07/16/20 16:06 DC Olanzapine (ZyPREXA) 5 mg DAILY PO 07/19/20 09:00 07/19/20 09:53 Olanzapine (ZyPREXA) 20 mg QHS PO 07/15/20 21:00 07/16/20 15:59 DC 07/15/20 21:54 Olanzapine (ZyPREXA) 20 mg QHS PO 07/16/20 21:00 07/18/20 20:26 Prazosin HCl (Minipress) 1 mg QHS PO 07/15/20 21:00 07/16/20 15:21 DC 07/15/20 21:54 Prazosin HCl (Minipress) 1 mg QHS PO 07/16/20 21:00 07/18/20 20:29 Trazodone HCl (Desyrel) 50 mg QHSP PRN PO INSOMNIA 07/16/20 13:45 Zonisamide (Zonegran) 200 mg BID PO 07/15/20 21:00 07/16/20 15:22 DC 07/16/20 09:01 Zonisamide (Zonegran) 200 mg BID PO 07/16/20 21:00 07/19/20 08:38 Allergies Coded Allergies: Cephalosporins (Verified Allergy, Intermediate, HIVES, 03/28/20) cefaclor (Verified Allergy, Unknown, 07/12/19) lamotrigine (Verified Adverse Reaction, Severe, SJS, 07/12/19) CHANELLE DENNISON NP Jul 19, 2020 11:31
[2020-07-19 19:07] VITALS: BP 147/66
[2020-07-19] MEDS: OLANZapine 10 MG TAB PO SCH (20:14)
[2020-07-19] MEDS: PRAZOSIN 1 MG CAP PO SCH (20:14)
[2020-07-20] MEDS: LEVOTHYROXINE 25MCG TABLET (0.025MG) PO SCH (05:59)
[2020-07-20 06:02] VITALS: BP 104/52
[2020-07-20] MEDS: ATORVASTATIN 20 MG TAB PO SCH (08:47)
[2020-07-20] MEDS: ZONISAMIDE 100 MG CAP (ZONEGRAN) PO SCH ×2 (08:47→20:33)
[2020-07-20] MEDS: OLANZapine 5 MG TAB PO SCH (08:47)
[2020-07-20] MEDS: FLUoxetine 20 MG CAP PO SCH (08:47)
--- NOTE | 2020-07-20 15:02 | MHIPNPDOC ---
[facility] Progress Note Progress Note DATE OF SERVICE: 07/20/20 HISTORY: 35-year-old female lives with her mother with a history of chronic schizophrenia and most recently. The voices are the devil and other. VITAL SIGNS: See below. NEW TEST RESULTS: None. CURRENT MEDICATIONS: See below. MENTAL STATUS EXAMINATION: Patient is a 35-year old female, who is still hearing voices telling her to cut herself. Speech: Is impoverished and slow. Language skills are intact. Thought processes including: Command hallucinations. Thought content: As above. Abstract reasoning, and computation:. [place]. Description of associations:. No loose association. Description of abnormal or psychotic thoughts: Psychotic thought consisting of auditory hallucinations telling patient to cut herself. Judgment: Poor. Insight:, Poor. Orientation: 3. Recent and remote memory: Intact. Attention span and concentration: Poor. Language: As above. Fund of knowledge: Limited. Mood: Depressed. Affect:, Flat. DIAGNOSES: 1. Chronic schizophrenia. 2. None. 3.. None. ASSESSMENT: Chronic schizophrenia under treatment MANAGEMENT PLAN: As above. TIME SPENT: 30 minutes. Vital Signs Vital Signs Date Time Temp Pulse Resp B/P (MAP) Pulse Ox O2 Delivery O2 Flow Rate FiO2 07/20/20 10:39 Room Air 07/20/20 06:02 97.4 71 16 104/52 (69 98 Current Medications Current Medications Medications (Trade) Dose Ordered Sig/Jonathan Route PRN Reason Start Time Stop Time Status Last Admin Dose Admin Acetaminophen (Tylenol Tab) 650 mg Q6HP PRN PO HEADACHE or DISCOMFORT 07/16/20 13:45 Al Hydrox/Mg Hydrox/Simethicone (Mylanta) 30 ml Q4HP PRN PO HEARTBURN/INDIGESTION 07/16/20 13:45 Albuterol Sulfate (Proventil Neb) 2.5 mg QID PRN INH SOB/WHEEZING 07/16/20 15:15 Atorvastatin Calcium (Lipitor) 20 mg DAILY PO 07/15/20 09:00 07/16/20 15:18 DC 07/16/20 09:00 Atorvastatin Calcium (Lipitor) 20 mg DAILY PO 07/17/20 09:00 07/20/20 08:47 Benztropine Mesylate (Cogentin) 0.5 mg BIDP PRN PO EPS 07/19/20 08:50 Clobazam (Onfi) 15 mg BID PO 07/15/20 21:00 07/16/20 15:19 DC 07/16/20 09:00 Clobazam (Onfi) 15 mg BID PO 07/16/20 09:00 Cancel Clobazam (Onfi) 15 mg BID PO 07/16/20 21:00 07/20/20 08:46 Fluoxetine HCl (PROzac) 60 mg DAILY PO 07/16/20 09:00 07/16/20 15:19 DC 07/16/20 09:00 Fluoxetine HCl (PROzac) 60 mg DAILY PO 07/17/20 09:00 07/19/20 11:33 DC 07/19/20 08:37 Fluoxetine HCl (PROzac) 80 mg DAILY PO 07/20/20 09:00 07/20/20 08:47 Home Med (Med Rec Complete!) ASDIRECTED XX 07/14/20 22:15 07/14/20 22:27 DC Levothyroxine Sodium (Synthroid) 25 mcg DAILY@06 PO 07/16/20 06:00 07/16/20 15:20 DC 07/16/20 06:04 Levothyroxine Sodium (Synthroid) 25 mcg DAILY@0600 PO 07/17/20 06:00 07/20/20 05:59 Magnesium Hydroxide (Milk Of Magnesia) 30 ml DAILYPRN PRN PO CONSTIPATION 07/16/20 13:45 Miscellaneous (Unresolved Clarification Entry) SEE LABEL COMMENTS DAILY XX 07/16/20 09:00 07/16/20 16:06 DC Olanzapine (ZyPREXA) 5 mg DAILY PO 07/19/20 09:00 07/20/20 08:47 Olanzapine (ZyPREXA) 20 mg QHS PO 07/15/20 21:00 07/16/20 15:59 DC 07/15/20 21:54 Olanzapine (ZyPREXA) 20 mg QHS PO 07/16/20 21:00 07/19/20 20:14 Prazosin HCl (Minipress) 1 mg QHS PO 07/15/20 21:00 07/16/20 15:21 DC 07/15/20 21:54 Prazosin HCl (Minipress) 1 mg QHS PO 07/16/20 21:00 07/19/20 20:14 Trazodone HCl (Desyrel) 50 mg QHSP PRN PO INSOMNIA 07/16/20 13:45 Zonisamide (Zonegran) 200 mg BID PO 07/15/20 21:00 07/16/20 15:22 DC 07/16/20 09:01 Zonisamide (Zonegran) 200 mg BID PO 07/16/20 21:00 07/20/20 08:47 Allergies Coded Allergies: Cephalosporins (Verified Allergy, Intermediate, HIVES, 03/28/20) cefaclor (Verified Allergy, Unknown, 07/12/19) lamotrigine (Verified Adverse Reaction, Severe, SJS, 07/12/19) FREYA MOE MD Jul 20, 2020 15:02
[2020-07-20] MEDS: PRAZOSIN 1 MG CAP PO SCH (20:33)
[2020-07-20] MEDS: OLANZapine 10 MG TAB PO SCH (20:34)
[2020-07-21] VITALS (13 sets, daily range): BP systolic 114–142; BP diastolic 59–74
[2020-07-21] MEDS: LEVOTHYROXINE 25MCG TABLET (0.025MG) PO SCH (06:34)
--- NOTE | 2020-07-21 08:32 | MHIPNPDOC ---
[facility] [place] Progress Note Progress Note DATE OF SERVICE: 07/21/20 HISTORY: 35-year-old female lives with mother tendency to stay in room and did not participate in program, stating that she is hearing voices of the devil. VITAL SIGNS: See below. NEW TEST RESULTS:. . CURRENT MEDICATIONS: See below. MENTAL STATUS EXAMINATION: Patient is a 35-year old female, who is stating she is hearing voices of the devil. Speech: Is impoverished. Language skills are, intact. Thought processes including: Claiming auditory hallucinations. Thought content: As above. Abstract reasoning, and computation:. [place]. Description of associations: no Loose association. Description of abnormal or psychotic thoughts: Claims auditory hallucination. Judgment:, Poor. Insight:, Poor. Orientation: 3. Recent and remote memory: Not measured. Attention span and concentration: Poor. Language:. No disturbance. Fund of knowledge:, Poor. Mood: Euthymic. Affect:, Flat. DIAGNOSES: 1. Paranoid schizophrenia, chronic. 2. None. 3. None. ASSESSMENT: As above MANAGEMENT PLAN:. Continue medications as per Jami Serna. Will encourage patient to stay out of her room TIME SPENT: 30 minutes. Vital Signs Vital Signs Date Time Temp Pulse Resp B/P (MAP) Pulse Ox O2 Delivery O2 Flow Rate FiO2 07/21/20 06:25 99.8 69 14 123/67 (85) 95 Room Air Current Medications Current Medications Medications (Trade) Dose Ordered Sig/Jonathan Route PRN Reason Start Time Stop Time Status Last Admin Dose Admin Acetaminophen (Tylenol Tab) 650 mg Q6HP PRN PO HEADACHE or DISCOMFORT 07/16/20 13:45 Al Hydrox/Mg Hydrox/Simethicone (Mylanta) 30 ml Q4HP PRN PO HEARTBURN/INDIGESTION 07/16/20 13:45 Albuterol Sulfate (Proventil Neb) 2.5 mg QID PRN INH SOB/WHEEZING 07/16/20 15:15 Atorvastatin Calcium (Lipitor) 20 mg DAILY PO 07/15/20 09:00 07/16/20 15:18 DC 07/16/20 09:00 Atorvastatin Calcium (Lipitor) 20 mg DAILY PO 07/17/20 09:00 07/20/20 08:47 Benztropine Mesylate (Cogentin) 0.5 mg BIDP PRN PO EPS 07/19/20 08:50 Clobazam (Onfi) 15 mg BID PO 07/15/20 21:00 07/16/20 15:19 DC 07/16/20 09:00 Clobazam (Onfi) 15 mg BID PO 07/16/20 09:00 Cancel Clobazam (Onfi) 15 mg BID PO 07/16/20 21:00 07/20/20 20:34 Fluoxetine HCl (PROzac) 60 mg DAILY PO 07/16/20 09:00 07/16/20 15:19 DC 07/16/20 09:00 Fluoxetine HCl (PROzac) 60 mg DAILY PO 07/17/20 09:00 07/19/20 11:33 DC 07/19/20 08:37 Fluoxetine HCl (PROzac) 80 mg DAILY PO 07/20/20 09:00 07/20/20 08:47 Home Med (Med Rec Complete!) ASDIRECTED XX 07/14/20 22:15 07/14/20 22:27 DC Levothyroxine Sodium (Synthroid) 25 mcg DAILY@06 PO 07/16/20 06:00 07/16/20 15:20 DC 07/16/20 06:04 Levothyroxine Sodium (Synthroid) 25 mcg DAILY@0600 PO 07/17/20 06:00 07/21/20 06:34 Magnesium Hydroxide (Milk Of Magnesia) 30 ml DAILYPRN PRN PO CONSTIPATION 07/16/20 13:45 Miscellaneous (Unresolved Clarification Entry) SEE LABEL COMMENTS DAILY XX 07/16/20 09:00 07/16/20 16:06 DC Olanzapine (ZyPREXA) 5 mg DAILY PO 07/19/20 09:00 07/20/20 08:47 Olanzapine (ZyPREXA) 20 mg QHS PO 07/15/20 21:00 07/16/20 15:59 DC 07/15/20 21:54 Olanzapine (ZyPREXA) 20 mg QHS PO 07/16/20 21:00 07/20/20 20:34 Prazosin HCl (Minipress) 1 mg QHS PO 07/15/20 21:00 07/16/20 15:21 DC 07/15/20 21:54 Prazosin HCl (Minipress) 1 mg QHS PO 07/16/20 21:00 07/20/20 20:33 Trazodone HCl (Desyrel) 50 mg QHSP PRN PO INSOMNIA 07/16/20 13:45 Zonisamide (Zonegran) 200 mg BID PO 07/15/20 21:00 07/16/20 15:22 DC 07/16/20 09:01 Zonisamide (Zonegran) 200 mg BID PO 07/16/20 21:00 07/20/20 20:33 Allergies Coded Allergies: Cephalosporins (Verified Allergy, Intermediate, HIVES, 03/28/20) cefaclor (Verified Allergy, Unknown, 07/12/19) lamotrigine (Verified Adverse Reaction, Severe, SJS, 07/12/19) FREYA MOE MD Jul 21, 2020 08:32
[2020-07-21] MEDS: FLUoxetine 20 MG CAP PO SCH (08:40)
[2020-07-21] MEDS: OLANZapine 5 MG TAB PO SCH (08:40)
[2020-07-21] MEDS: ZONISAMIDE 100 MG CAP (ZONEGRAN) PO SCH ×2 (08:40→20:05)
[2020-07-21] MEDS: ATORVASTATIN 20 MG TAB PO SCH (08:40)
[2020-07-21] MEDS ORDERED: HALOPERIDOL 5MG/ML VIAL (J1630 PER 1) IM STA (08:46)
[2020-07-21] MEDS ORDERED: diphenhydrAMINE 50MG/ML VIAL (J1200) IM STA (08:46)
[2020-07-21] MEDS ORDERED: diphenhydrAMINE 50MG CAP PO PRN (09:00)
[2020-07-21] MEDS ORDERED: chlorproMAZINE INJ 50MG/2ML AMP (J3230) IM ONE (13:25)
[2020-07-21] MEDS: OLANZapine 10 MG TAB PO SCH (20:04)
[2020-07-21] MEDS: PRAZOSIN 1 MG CAP PO SCH (20:05)
[2020-07-22] MEDS: LEVOTHYROXINE 25MCG TABLET (0.025MG) PO SCH (05:52)
[2020-07-22 05:59] VITALS: BP 105/56
[2020-07-22] MEDS: ZONISAMIDE 100 MG CAP (ZONEGRAN) PO SCH ×2 (09:04→20:35)
[2020-07-22] MEDS: FLUoxetine 20 MG CAP PO SCH (09:04)
[2020-07-22] MEDS: ATORVASTATIN 20 MG TAB PO SCH (09:04)
[2020-07-22] MEDS: PILL CUTTER 1 EACH XX PRN (09:05)
--- NOTE | 2020-07-22 18:35 | MHIPNPDOC ---
[facility] Progress Note Progress Note DATE OF SERVICE: 07/22/20 HISTORY: 35-year-old numerous admissions. On she is mostly stayed in her room and been sedated. We have decreased her medications and she is out laughing and has had no aggressive episodes today. VITAL SIGNS: See below. NEW TEST RESULTS: 9. CURRENT MEDICATIONS: See below. MENTAL STATUS EXAMINATION: Patient is a 35-year old female, who is presently participating in unit activities with some laughter. Speech: Is, slow. Language skills are improved over past admissions talking and laughing. Thought processes including: No gross abnormalities. Thought content:. No gross abnormalities. Abstract reasoning, and computation:, [place]. Description of associations:. No loose association. Description of abnormal or psychotic thoughts:. Presently no grossly abnormal or psychotic thought. Judgment: Improving. Insight: Limited. Orientation: 3. Recent and remote memory: Not measured today. Attention span and concentration: Not measured today but apparently improving. Language:. No gross disturbance. Fund of knowledge: Reasonable. Mood: Improved. Affect: Flat. DIAGNOSES: 1.. Chronic schizophrenia. 2. None. 3.. None. ASSESSMENT:. Status post had experience with this patient on numerous previous visits, saying this is the most active the patient has been MANAGEMENT PLAN: Continue to moderate use of medications and observe. TIME SPENT: 30 minutes. Vital Signs Vital Signs Date Time Temp Pulse Resp B/P (MAP) Pulse Ox O2 Delivery O2 Flow Rate FiO2 07/22/20 05:59 98.3 74 18 105/56 (72) 98 Room Air Current Medications Current Medications Medications (Trade) Dose Ordered Sig/Jonathan Route PRN Reason Start Time Stop Time Status Last Admin Dose Admin Acetaminophen (Tylenol Tab) 650 mg Q6HP PRN PO HEADACHE or DISCOMFORT 07/16/20 13:45 Al Hydrox/Mg Hydrox/Simethicone (Mylanta) 30 ml Q4HP PRN PO HEARTBURN/INDIGESTION 07/16/20 13:45 Albuterol Sulfate (Proventil Neb) 2.5 mg QID PRN INH SOB/WHEEZING 07/16/20 15:15 Atorvastatin Calcium (Lipitor) 20 mg DAILY PO 07/15/20 09:00 07/16/20 15:18 DC 07/16/20 09:00 Atorvastatin Calcium (Lipitor) 20 mg DAILY PO 07/17/20 09:00 07/22/20 09:04 Benztropine Mesylate (Cogentin) 0.5 mg BIDP PRN PO EPS 07/19/20 08:50 Clobazam (Onfi) 15 mg BID PO 07/15/20 21:00 07/16/20 15:19 DC 07/16/20 09:00 Clobazam (Onfi) 15 mg BID PO 07/16/20 09:00 Cancel Clobazam (Onfi) 15 mg BID PO 07/16/20 21:00 07/21/20 08:53 DC 07/21/20 08:41 Clobazam (Onfi) 15 mg BID PO 07/21/20 21:00 07/22/20 09:05 Diphenhydramine HCl (Benadryl) 50 mg Q6HP PRN PO ITCHING 07/21/20 09:00 Diphenhydramine HCl (Benadryl) 50 mg STAT STAT IM 07/21/20 08:46 07/21/20 08:48 DC 07/21/20 08:59 Fluoxetine HCl (PROzac) 60 mg DAILY PO 07/16/20 09:00 07/16/20 15:19 DC 07/16/20 09:00 Fluoxetine HCl (PROzac) 60 mg DAILY PO 07/17/20 09:00 07/19/20 11:33 DC 07/19/20 08:37 Fluoxetine HCl (PROzac) 80 mg DAILY PO 07/20/20 09:00 07/22/20 09:04 Haloperidol (Haldol) 10 mg Q6HP PRN PO ANXIETY/AGITATION 07/21/20 09:00 Haloperidol (Haldol) 10 mg STAT STAT IM 07/21/20 08:46 07/21/20 08:48 DC 07/21/20 08:59 Home Med (Med Rec Complete!) ASDIRECTED XX 07/14/20 22:15 07/14/20 22:27 DC Levothyroxine Sodium (Synthroid) 25 mcg DAILY@06 PO 07/16/20 06:00 07/16/20 15:20 DC 07/16/20 06:04 Levothyroxine Sodium (Synthroid) 25 mcg DAILY@0600 PO 07/17/20 06:00 07/22/20 05:52 Magnesium Hydroxide (Milk Of Magnesia) 30 ml DAILYPRN PRN PO CONSTIPATION 07/16/20 13:45 Miscellaneous (Unresolved Clarification Entry) SEE LABEL COMMENTS DAILY XX 07/16/20 09:00 07/16/20 16:06 DC Olanzapine (ZyPREXA) 5 mg DAILY PO 07/19/20 09:00 07/21/20 08:53 DC 07/21/20 08:40 Olanzapine (ZyPREXA) 10 mg QHS PO 07/21/20 21:00 07/21/20 20:04 Olanzapine (ZyPREXA) 20 mg QHS PO 07/15/20 21:00 07/16/20 15:59 DC 07/15/20 21:54 Olanzapine (ZyPREXA) 20 mg QHS PO 07/16/20 21:00 07/21/20 08:53 DC 07/20/20 20:34 Prazosin HCl (Minipress) 1 mg QHS PO 07/15/20 21:00 07/16/20 15:21 DC 07/15/20 21:54 Prazosin HCl (Minipress) 1 mg QHS PO 07/16/20 21:00 07/21/20 20:05 Trazodone HCl (Desyrel) 50 mg QHSP PRN PO INSOMNIA 07/16/20 13:45 Zonisamide (Zonegran) 200 mg BID PO 07/15/20 21:00 07/16/20 15:22 DC 07/16/20 09:01 Zonisamide (Zonegran) 200 mg BID PO 07/16/20 21:00 07/22/20 09:04 Allergies Coded Allergies: Cephalosporins (Verified Allergy, Intermediate, HIVES, 03/28/20) cefaclor (Verified Allergy, Unknown, 07/12/19) lamotrigine (Verified Adverse Reaction, Severe, SJS, 07/12/19) FREYA MOE MD Jul 22, 2020 18:35
[2020-07-22 18:37] VITALS: BP 102/55
[2020-07-22] MEDS: OLANZapine 10 MG TAB PO SCH (20:35)
[2020-07-22] MEDS: PRAZOSIN 1 MG CAP PO SCH (20:38)
[2020-07-23] MEDS: LEVOTHYROXINE 25MCG TABLET (0.025MG) PO SCH (06:08)
[2020-07-23 06:49] VITALS: BP 126/69
[2020-07-23] MEDS: FLUoxetine 20 MG CAP PO SCH (08:50)
[2020-07-23] MEDS: ATORVASTATIN 20 MG TAB PO SCH (08:51)
[2020-07-23] MEDS: ZONISAMIDE 100 MG CAP (ZONEGRAN) PO SCH ×2 (08:52→21:20)
--- NOTE | 2020-07-23 12:01 | MHIPNPDOC ---
[facility] Progress Note Progress Note DATE OF SERVICE: 07/23/20 HISTORY: This Day 8 of patient's admission, to review she is a 35 -year-old Single, Intellectually Disabled, Domiciled , female, who reports that she has voices telling her to harm herself. Patient was recently discharged from this facility on 07/06/20 and has been living with derogatory and command hallucinations. She has a diagnosis of Schizophrenia. This is a patient with numerous psychiatric admissions and was recently admitted from 06/03/20-07/06/20. Per ED report: Pt expressing SI today, mother called 911 with concerns that pt may harm herself. Pt well known from prior Psych admissions, has hx of Schizophrenia and mild intellectual development d/o. VITAL SIGNS: See below. CURRENT MEDICATIONS: See below. MENTAL STATUS EXAMINATION: Patient is a 35 -year-old Single, Intellectually Disabled, Domiciled , female, who reports today that she is not depressed, continues to have the command hallucinations but she is able to ignore them, General Appearance: unkempt, disheveled, hospital scrubs/clothing, poor hygiene and grooming Build: overweight Demeanor: less withdrawn, less guarded Eye Contact: avoided Activity: improving, attending groups over the weekend and today Behavior: cooperative Speech: intact, mildly more conversant Mood: "ok" Affect: flat Thought Process: logical/linear Thought Content (Other): internal-stimuli Thought Content (Aggressive): none reported Perception (Hallucinations): auditory Cognition (Impairment of): none reported Cognition(Intelligence Est.): MR Oriented: Awake, Alert, Oriented times three Insight: fair Judgment: Fair Psychosis: Command hallucinations to cut herself, able to contract for safety DIAGNOSES: Schizophrenia Intellectual Disability ASSESSMENT: Patient reports taht she is not depressed, continues to have the same voices "not better, not less, it's the same." She reports that she is attending groups and that she has not been having thoughts of self harm in a day. She does not want to hurt herself. According to senior planner, mother is requesting patient be transferred to a different facility for ECT treatments. It is my observation that patient is reporting and is not observed with severe depression. She does have a history of Schizophrenia but she is not catatonic or acutely psychotic, she is not reporting a commitment to killing herself and is attending groups, eating appropriately. Patient reports continued hallucinations and today she states that many times, she does not act on these hallucinations and can distinguish delusions versus hallucinations. MANAGEMENT PLAN: Continue all medications as ordered, will discharge when she is stable. TIME SPENT:25 minutes. Vital Signs Vital Signs Date Time Temp Pulse Resp B/P (MAP) Pulse Ox O2 Delivery O2 Flow Rate FiO2 07/23/20 09:32 Room Air 07/23/20 06:49 96.2 89 16 126/69 (88) 99 Current Medications Current Medications Medications (Trade) Dose Ordered Sig/Jonathan Route PRN Reason Start Time Stop Time Status Last Admin Dose Admin Acetaminophen (Tylenol Tab) 650 mg Q6HP PRN PO HEADACHE or DISCOMFORT 07/16/20 13:45 Al Hydrox/Mg Hydrox/Simethicone (Mylanta) 30 ml Q4HP PRN PO HEARTBURN/INDIGESTION 07/16/20 13:45 Albuterol Sulfate (Proventil Neb) 2.5 mg QID PRN INH SOB/WHEEZING 07/16/20 15:15 Atorvastatin Calcium (Lipitor) 20 mg DAILY PO 07/15/20 09:00 07/16/20 15:18 DC 07/16/20 09:00 Atorvastatin Calcium (Lipitor) 20 mg DAILY PO 07/17/20 09:00 07/23/20 08:51 Benztropine Mesylate (Cogentin) 0.5 mg BIDP PRN PO EPS 07/19/20 08:50 Clobazam (Onfi) 15 mg BID PO 07/15/20 21:00 07/16/20 15:19 DC 07/16/20 09:00 Clobazam (Onfi) 15 mg BID PO 07/16/20 09:00 Cancel Clobazam (Onfi) 15 mg BID PO 07/16/20 21:00 07/21/20 08:53 DC 07/21/20 08:41 Clobazam (Onfi) 15 mg BID PO 07/21/20 21:00 07/23/20 08:50 Diphenhydramine HCl (Benadryl) 50 mg Q6HP PRN PO ITCHING 07/21/20 09:00 Diphenhydramine HCl (Benadryl) 50 mg STAT STAT IM 07/21/20 08:46 07/21/20 08:48 DC 07/21/20 08:59 Fluoxetine HCl (PROzac) 60 mg DAILY PO 07/16/20 09:00 07/16/20 15:19 DC 07/16/20 09:00 Fluoxetine HCl (PROzac) 60 mg DAILY PO 07/17/20 09:00 07/19/20 11:33 DC 07/19/20 08:37 Fluoxetine HCl (PROzac) 80 mg DAILY PO 07/20/20 09:00 07/23/20 08:50 Haloperidol (Haldol) 10 mg Q6HP PRN PO ANXIETY/AGITATION 07/21/20 09:00 Haloperidol (Haldol) 10 mg STAT STAT IM 07/21/20 08:46 07/21/20 08:48 DC 07/21/20 08:59 Home Med (Med Rec Complete!) ASDIRECTED XX 07/14/20 22:15 07/14/20 22:27 DC Levothyroxine Sodium (Synthroid) 25 mcg DAILY@06 PO 07/16/20 06:00 07/16/20 15:20 DC 07/16/20 06:04 Levothyroxine Sodium (Synthroid) 25 mcg DAILY@0600 PO 07/17/20 06:00 07/23/20 06:08 Magnesium Hydroxide (Milk Of Magnesia) 30 ml DAILYPRN PRN PO CONSTIPATION 07/16/20 13:45 Miscellaneous (Unresolved Clarification Entry) SEE LABEL COMMENTS DAILY XX 07/16/20 09:00 07/16/20 16:06 DC Olanzapine (ZyPREXA) 5 mg DAILY PO 07/19/20 09:00 07/21/20 08:53 DC 07/21/20 08:40 Olanzapine (ZyPREXA) 10 mg QHS PO 07/21/20 21:00 07/22/20 20:35 Olanzapine (ZyPREXA) 20 mg QHS PO 07/15/20 21:00 07/16/20 15:59 DC 07/15/20 21:54 Olanzapine (ZyPREXA) 20 mg QHS PO 07/16/20 21:00 07/21/20 08:53 DC 07/20/20 20:34 Prazosin HCl (Minipress) 1 mg QHS PO 07/15/20 21:00 07/16/20 15:21 DC 07/15/20 21:54 Prazosin HCl (Minipress) 1 mg QHS PO 07/16/20 21:00 07/22/20 20:38 Trazodone HCl (Desyrel) 50 mg QHSP PRN PO INSOMNIA 07/16/20 13:45 Zonisamide (Zonegran) 200 mg BID PO 07/15/20 21:00 07/16/20 15:22 DC 07/16/20 09:01 Zonisamide (Zonegran) 200 mg BID PO 07/16/20 21:00 07/23/20 08:52 Allergies Coded Allergies: Cephalosporins (Verified Allergy, Intermediate, HIVES, 03/28/20) cefaclor (Verified Allergy, Unknown, 07/12/19) lamotrigine (Verified Adverse Reaction, Severe, SJS, 07/12/19) CHANELLE DENNISON NP Jul 23, 2020 12:01
[2020-07-23 16:22] VITALS: BP 121/74
[2020-07-23] MEDS: PRAZOSIN 1 MG CAP PO SCH (21:21)
[2020-07-23] MEDS: OLANZapine 10 MG TAB PO SCH (21:21)
[2020-07-24] MEDS: LEVOTHYROXINE 25MCG TABLET (0.025MG) PO SCH (05:59)
[2020-07-24 06:01] VITALS: BP 95/53
[2020-07-24] MEDS: FLUoxetine 20 MG CAP PO SCH (08:50)
[2020-07-24] MEDS: ZONISAMIDE 100 MG CAP (ZONEGRAN) PO SCH ×2 (08:50→20:04)
[2020-07-24] MEDS: ATORVASTATIN 20 MG TAB PO SCH (08:51)
[2020-07-24] MEDS: PILL CUTTER 1 EACH XX PRN (08:52)
--- NOTE | 2020-07-24 14:43 | MHIPNPDOC ---
[facility] Progress Note Progress Note DATE OF SERVICE: 07/24/20 This Day 9 of patient's admission, to review she is a 35 -year-old Single, Intellectually Disabled, Domiciled , female, who reports that she has voices telling her to harm herself. Per ED report: Pt expressing SI today, mother called 911 with concerns that pt may harm herself. Pt well known from prior Psych admissions, has hx of Schizophrenia and mild intellectual development d/o. VITAL SIGNS: See below. CURRENT MEDICATIONS: See below. MENTAL STATUS EXAMINATION: Patient is a 35 -year-old Single, Intellectually Disabled, Domiciled , female, who reports today that she is not depressed, continues to have the command hallucinations but she is able to ignore them, General Appearance: Fair hygiene and grooming, dressed appropriately Build: overweight Demeanor: calm and cooperative Eye Contact: improved eye contact Activity: attending groups today Behavior: cooperative Speech: intact, mildly more conversant Mood: "good" Affect: flat Thought Process: logical/linear Thought Content (Other): internal-stimuli Thought Content (Aggressive): none reported Perception (Hallucinations): auditory but less Cognition (Impairment of): none reported Cognition(Intelligence Est.): MR Oriented: Awake, Alert, Oriented times three Insight: fair Judgment: Fair Psychosis: Command hallucinations to cut herself, able to contract for safety DIAGNOSES: Schizophrenia Intellectual Disability ASSESSMENT: Patient appears to be improving significantly, she is attending groups. She showered yesterday and reports that she is feeling "good" She reports the voices are continued but that she feels that voices are not as strong in her head. MANAGEMENT PLAN: Continue all medications as ordered, will discharge when she is stable, probably discharge in a day or two. TIME SPENT: 25 minutes. Vital Signs Vital Signs Date Time Temp Pulse Resp B/P (MAP) Pulse Ox O2 Delivery O2 Flow Rate FiO2 07/24/20 09:57 Room Air 07/24/20 06:01 98.3 84 16 95/53 (67) 97 Current Medications Current Medications Medications (Trade) Dose Ordered Sig/Jonathan Route PRN Reason Start Time Stop Time Status Last Admin Dose Admin Acetaminophen (Tylenol Tab) 650 mg Q6HP PRN PO HEADACHE or DISCOMFORT 07/16/20 13:45 Al Hydrox/Mg Hydrox/Simethicone (Mylanta) 30 ml Q4HP PRN PO HEARTBURN/INDIGESTION 07/16/20 13:45 Albuterol Sulfate (Proventil Neb) 2.5 mg QID PRN INH SOB/WHEEZING 07/16/20 15:15 Atorvastatin Calcium (Lipitor) 20 mg DAILY PO 07/15/20 09:00 07/16/20 15:18 DC 07/16/20 09:00 Atorvastatin Calcium (Lipitor) 20 mg DAILY PO 07/17/20 09:00 07/24/20 08:51 Benztropine Mesylate (Cogentin) 0.5 mg BIDP PRN PO EPS 07/19/20 08:50 Clobazam (Onfi) 15 mg BID PO 07/15/20 21:00 07/16/20 15:19 DC 07/16/20 09:00 Clobazam (Onfi) 15 mg BID PO 07/16/20 09:00 Cancel Clobazam (Onfi) 15 mg BID PO 07/16/20 21:00 07/21/20 08:53 DC 07/21/20 08:41 Clobazam (Onfi) 15 mg BID PO 07/21/20 21:00 07/24/20 08:51 Diphenhydramine HCl (Benadryl) 50 mg Q6HP PRN PO ITCHING 07/21/20 09:00 Diphenhydramine HCl (Benadryl) 50 mg STAT STAT IM 07/21/20 08:46 07/21/20 08:48 DC 07/21/20 08:59 Fluoxetine HCl (PROzac) 60 mg DAILY PO 07/16/20 09:00 07/16/20 15:19 DC 07/16/20 09:00 Fluoxetine HCl (PROzac) 60 mg DAILY PO 07/17/20 09:00 07/19/20 11:33 DC 07/19/20 08:37 Fluoxetine HCl (PROzac) 80 mg DAILY PO 07/20/20 09:00 07/24/20 08:50 Haloperidol (Haldol) 10 mg Q6HP PRN PO ANXIETY/AGITATION 07/21/20 09:00 Haloperidol (Haldol) 10 mg STAT STAT IM 07/21/20 08:46 07/21/20 08:48 DC 07/21/20 08:59 Home Med (Med Rec Complete!) ASDIRECTED XX 07/14/20 22:15 07/14/20 22:27 DC Levothyroxine Sodium (Synthroid) 25 mcg DAILY@06 PO 07/16/20 06:00 07/16/20 15:20 DC 07/16/20 06:04 Levothyroxine Sodium (Synthroid) 25 mcg DAILY@0600 PO 07/17/20 06:00 07/24/20 05:59 Magnesium Hydroxide (Milk Of Magnesia) 30 ml DAILYPRN PRN PO CONSTIPATION 07/16/20 13:45 Miscellaneous (Unresolved Clarification Entry) SEE LABEL COMMENTS DAILY XX 07/16/20 09:00 07/16/20 16:06 DC Olanzapine (ZyPREXA) 5 mg DAILY PO 07/19/20 09:00 07/21/20 08:53 DC 07/21/20 08:40 Olanzapine (ZyPREXA) 10 mg QHS PO 07/21/20 21:00 07/23/20 21:21 Olanzapine (ZyPREXA) 20 mg QHS PO 07/15/20 21:00 07/16/20 15:59 DC 07/15/20 21:54 Olanzapine (ZyPREXA) 20 mg QHS PO 07/16/20 21:00 07/21/20 08:53 DC 07/20/20 20:34 Prazosin HCl (Minipress) 1 mg QHS PO 07/15/20 21:00 07/16/20 15:21 DC 07/15/20 21:54 Prazosin HCl (Minipress) 1 mg QHS PO 07/16/20 21:00 07/23/20 21:21 Trazodone HCl (Desyrel) 50 mg QHSP PRN PO INSOMNIA 07/16/20 13:45 Zonisamide (Zonegran) 200 mg BID PO 07/15/20 21:00 07/16/20 15:22 DC 07/16/20 09:01 Zonisamide (Zonegran) 200 mg BID PO 07/16/20 21:00 07/24/20 08:50 Allergies Coded Allergies: Cephalosporins (Verified Allergy, Intermediate, HIVES, 03/28/20) cefaclor (Verified Allergy, Unknown, 07/12/19) lamotrigine (Verified Adverse Reaction, Severe, SJS, 07/12/19) CHANELLE DENNISON NP 2, 2021 14:43
[2020-07-24 16:47] VITALS: BP 106/56
[2020-07-24] MEDS: PRAZOSIN 1 MG CAP PO SCH (20:04)
[2020-07-24] MEDS: OLANZapine 10 MG TAB PO SCH (21:20)
[2020-07-25] MEDS: LEVOTHYROXINE 25MCG TABLET (0.025MG) PO SCH (06:09)
[2020-07-25 06:28] VITALS: BP 121/63
[2020-07-25] MEDS: ZONISAMIDE 100 MG CAP (ZONEGRAN) PO SCH ×2 (08:14→20:34)
[2020-07-25] MEDS: ATORVASTATIN 20 MG TAB PO SCH (08:15)
[2020-07-25] MEDS: FLUoxetine 20 MG CAP PO SCH (08:15)
--- NOTE | 2020-07-25 10:54 | MHIPNPDOC ---
[facility] Progress Note Progress Note DATE OF SERVICE: 07/25/20 This Day 10 of patient's admission, to review she is a 35 -year-old Single, Intellectually Disabled, Domiciled , female, who reports that she has voices telling her to harm herself. Per ED report: Pt expressing SI today, mother called 911 with concerns that pt may harm herself. Pt well known from prior Psych admissions, has hx of Schizophrenia and mild intellectual development d/o. VITAL SIGNS: See below. CURRENT MEDICATIONS: See below. MENTAL STATUS EXAMINATION: Patient is a 35 -year-old Single, Intellectually Disabled, Domiciled , female, who reports today that she is not depressed, continues to have the command hallucinations but she is able to ignore them, General Appearance: Fair hygiene and grooming, dressed appropriately Build: overweight Demeanor: calm and cooperative Eye Contact: improved eye contact Activity: is visible on the unit, not attending groups due to no group therapy. Pt has been attending groups readily Behavior: cooperative Speech: intact, mildly more conversant Mood: "good" Affect: flat Thought Process: logical/linear Thought Content (Other): internal-stimuli Thought Content (Aggressive): none reported Perception (Hallucinations): auditory but less Cognition (Impairment of): none reported Cognition(Intelligence Est.): MR Oriented: Awake, Alert, Oriented times three Insight: fair Judgment: Fair Psychosis: Command hallucinations to cut herself, able to contract for safety DIAGNOSES: Schizophrenia Intellectual Disability ASSESSMENT: Pt alert and oriented to person, place, and time. Pt stated she's feeling "good". Staff reports that pt is doing much better. She complains of mild hallucinations, denies suicidal thinking and depression. When asked about being discharged, pt stated she would like to be discharged "next week". Reinforced with pt that she is improving and that discharge on Thursday is appropriate. Pt agreed to this. MANAGEMENT PLAN: Continue all medications as ordered, will discharge when she is stable, probably discharge in a day or two. TIME SPENT: 25 minutes. Vital Signs Vital Signs Date Time Temp Pulse Resp B/P (MAP) Pulse Ox O2 Delivery O2 Flow Rate FiO2 07/25/20 06:28 97.9 80 18 121/63 (82) 95 Room Air Current Medications Current Medications Medications (Trade) Dose Ordered Sig/Jonathan Route PRN Reason Start Time Stop Time Status Last Admin Dose Admin Acetaminophen (Tylenol Tab) 650 mg Q6HP PRN PO HEADACHE or DISCOMFORT 07/16/20 13:45 07/24/20 21:41 Al Hydrox/Mg Hydrox/Simethicone (Mylanta) 30 ml Q4HP PRN PO HEARTBURN/INDIGESTION 07/16/20 13:45 Albuterol Sulfate (Proventil Neb) 2.5 mg QID PRN INH SOB/WHEEZING 07/16/20 15:15 Atorvastatin Calcium (Lipitor) 20 mg DAILY PO 07/15/20 09:00 07/16/20 15:18 DC 07/16/20 09:00 Atorvastatin Calcium (Lipitor) 20 mg DAILY PO 07/17/20 09:00 07/25/20 08:15 Benztropine Mesylate (Cogentin) 0.5 mg BIDP PRN PO EPS 07/19/20 08:50 Clobazam (Onfi) 15 mg BID PO 07/15/20 21:00 07/16/20 15:19 DC 07/16/20 09:00 Clobazam (Onfi) 15 mg BID PO 07/16/20 09:00 Cancel Clobazam (Onfi) 15 mg BID PO 07/16/20 21:00 07/21/20 08:53 DC 07/21/20 08:41 Clobazam (Onfi) 15 mg BID PO 07/21/20 21:00 07/25/20 08:14 Diphenhydramine HCl (Benadryl) 50 mg Q6HP PRN PO ITCHING 07/21/20 09:00 Diphenhydramine HCl (Benadryl) 50 mg STAT STAT IM 07/21/20 08:46 07/21/20 08:48 DC 07/21/20 08:59 Fluoxetine HCl (PROzac) 60 mg DAILY PO 07/16/20 09:00 07/16/20 15:19 DC 07/16/20 09:00 Fluoxetine HCl (PROzac) 60 mg DAILY PO 07/17/20 09:00 07/19/20 11:33 DC 07/19/20 08:37 Fluoxetine HCl (PROzac) 80 mg DAILY PO 07/20/20 09:00 07/25/20 08:15 Haloperidol (Haldol) 10 mg Q6HP PRN PO ANXIETY/AGITATION 07/21/20 09:00 Haloperidol (Haldol) 10 mg STAT STAT IM 07/21/20 08:46 07/21/20 08:48 DC 07/21/20 08:59 Home Med (Med Rec Complete!) ASDIRECTED XX 07/14/20 22:15 07/14/20 22:27 DC Levothyroxine Sodium (Synthroid) 25 mcg DAILY@06 PO 07/16/20 06:00 07/16/20 15:20 DC 07/16/20 06:04 Levothyroxine Sodium (Synthroid) 25 mcg DAILY@0600 PO 07/17/20 06:00 07/25/20 06:09 Magnesium Hydroxide (Milk Of Magnesia) 30 ml DAILYPRN PRN PO CONSTIPATION 07/16/20 13:45 Miscellaneous (Unresolved Clarification Entry) SEE LABEL COMMENTS DAILY XX 07/16/20 09:00 07/16/20 16:06 DC Olanzapine (ZyPREXA) 5 mg DAILY PO 07/19/20 09:00 07/21/20 08:53 DC 07/21/20 08:40 Olanzapine (ZyPREXA) 10 mg QHS PO 07/21/20 21:00 07/24/20 21:20 Olanzapine (ZyPREXA) 20 mg QHS PO 07/15/20 21:00 07/16/20 15:59 DC 07/15/20 21:54 Olanzapine (ZyPREXA) 20 mg QHS PO 07/16/20 21:00 07/21/20 08:53 DC 07/20/20 20:34 Prazosin HCl (Minipress) 1 mg QHS PO 07/15/20 21:00 07/16/20 15:21 DC 07/15/20 21:54 Prazosin HCl (Minipress) 1 mg QHS PO 07/16/20 21:00 07/24/20 20:04 Trazodone HCl (Desyrel) 50 mg QHSP PRN PO INSOMNIA 07/16/20 13:45 07/24/20 21:42 Zonisamide (Zonegran) 200 mg BID PO 07/15/20 21:00 07/16/20 15:22 DC 07/16/20 09:01 Zonisamide (Zonegran) 200 mg BID PO 07/16/20 21:00 07/25/20 08:14 Allergies Coded Allergies: Cephalosporins (Verified Allergy, Intermediate, HIVES, 03/28/20) cefaclor (Verified Allergy, Unknown, 07/12/19) lamotrigine (Verified Adverse Reaction, Severe, SJS, 07/12/19) CHANELLE DENNISON NP Jul 25, 2020 10:54
[2020-07-25 16:28] VITALS: BP 116/75
[2020-07-25] MEDS: OLANZapine 10 MG TAB PO SCH (20:34)
[2020-07-25 20:37] VITALS: BP 141/68
[2020-07-25] MEDS: PRAZOSIN 1 MG CAP PO SCH (20:37)
[2020-07-26] MEDS: LEVOTHYROXINE 25MCG TABLET (0.025MG) PO SCH (06:01)
[2020-07-26 06:33] VITALS: BP 125/74
[2020-07-26] MEDS: ZONISAMIDE 100 MG CAP (ZONEGRAN) PO SCH ×2 (09:20→21:10)
[2020-07-26] MEDS: ATORVASTATIN 20 MG TAB PO SCH (09:20)
[2020-07-26] MEDS: FLUoxetine 20 MG CAP PO SCH (09:20)
--- NOTE | 2020-07-26 09:59 | MHIPNPDOC ---
[facility] Progress Note Progress Note DATE OF SERVICE: 07/26/20 This Day 11 of patient's admission, to review she is a 35 -year-old Single, Intellectually Disabled, Domiciled , female, who reports that she has voices telling her to harm herself. Per ED report: Pt expressing SI today, mother called 911 with concerns that pt may harm herself. Pt well known from prior Psych admissions, has hx of Schizophrenia and mild intellectual development d/o. VITAL SIGNS: See below. CURRENT MEDICATIONS: See below. MENTAL STATUS EXAMINATION: Patient is a 35 -year-old Single, Intellectually Disabled, Domiciled , female, who reports today that she is not depressed, continues to have the command hallucinations but she is able to ignore them, General Appearance: Fair hygiene and grooming, dressed appropriately, mildly disheveled, no thoughts of self-harm, not hearing voices during the interview, states that the voices started when she was an adult. She repeats in the interview, "I have no more" Build: overweight Demeanor: calm and cooperative Eye Contact: maintains eye contact Activity: is visible on the unit. Behavior: cooperative Speech: intact, mildly more conversant Mood: "good" Affect: flat Thought Process: logical/linear Thought Content (Other): internal-stimuli Thought Content (Aggressive): none reported Perception (Hallucinations): auditory but less Cognition (Impairment of): none reported Cognition(Intelligence Est.): MR Oriented: Awake, Alert, Oriented times three Insight: fair Judgment: Fair Psychosis: Command hallucinations to cut herself, able to contract for safety DIAGNOSES: Schizophrenia Intellectual Disability ASSESSMENT: Pt stated she's feeling "good". Staff reports that pt is doing much better. She denies hallucinations, denies suicidal thinking and denies depression. Patient reports that she is ready for discharge tomorrow. She has had no episodes of self harm while hospitalized, reports increased energy she is visible on the unit, has been social with peers. MANAGEMENT PLAN: Continue all medications as ordered, discharge tomorrow. TIME SPENT: 25 minutes. Vital Signs Vital Signs Date Time Temp Pulse Resp B/P (MAP) Pulse Ox O2 Delivery O2 Flow Rate FiO2 07/26/20 06:33 97.1 90 20 125/74 (91) 98 Room Air Current Medications Current Medications Medications (Trade) Dose Ordered Sig/Jonathan Route PRN Reason Start Time Stop Time Status Last Admin Dose Admin Acetaminophen (Tylenol Tab) 650 mg Q6HP PRN PO HEADACHE or DISCOMFORT 07/16/20 13:45 07/24/20 21:41 Al Hydrox/Mg Hydrox/Simethicone (Mylanta) 30 ml Q4HP PRN PO HEARTBURN/INDIGESTION 07/16/20 13:45 Albuterol Sulfate (Proventil Neb) 2.5 mg QID PRN INH SOB/WHEEZING 07/16/20 15:15 Atorvastatin Calcium (Lipitor) 20 mg DAILY PO 07/15/20 09:00 07/16/20 15:18 DC 07/16/20 09:00 Atorvastatin Calcium (Lipitor) 20 mg DAILY PO 07/17/20 09:00 07/26/20 09:20 Benztropine Mesylate (Cogentin) 0.5 mg BIDP PRN PO EPS 07/19/20 08:50 Clobazam (Onfi) 15 mg BID PO 07/15/20 21:00 07/16/20 15:19 DC 07/16/20 09:00 Clobazam (Onfi) 15 mg BID PO 07/16/20 09:00 Cancel Clobazam (Onfi) 15 mg BID PO 07/16/20 21:00 07/21/20 08:53 DC 07/21/20 08:41 Clobazam (Onfi) 15 mg BID PO 07/21/20 21:00 07/26/20 09:20 Diphenhydramine HCl (Benadryl) 50 mg Q6HP PRN PO ITCHING 07/21/20 09:00 Diphenhydramine HCl (Benadryl) 50 mg STAT STAT IM 07/21/20 08:46 07/21/20 08:48 DC 07/21/20 08:59 Fluoxetine HCl (PROzac) 60 mg DAILY PO 07/16/20 09:00 07/16/20 15:19 DC 07/16/20 09:00 Fluoxetine HCl (PROzac) 60 mg DAILY PO 07/17/20 09:00 07/19/20 11:33 DC 07/19/20 08:37 Fluoxetine HCl (PROzac) 80 mg DAILY PO 07/20/20 09:00 07/26/20 09:20 Haloperidol (Haldol) 10 mg Q6HP PRN PO ANXIETY/AGITATION 07/21/20 09:00 Haloperidol (Haldol) 10 mg STAT STAT IM 07/21/20 08:46 07/21/20 08:48 DC 07/21/20 08:59 Home Med (Med Rec Complete!) ASDIRECTED XX 07/14/20 22:15 07/14/20 22:27 DC Levothyroxine Sodium (Synthroid) 25 mcg DAILY@06 PO 07/16/20 06:00 07/16/20 15:20 DC 07/16/20 06:04 Levothyroxine Sodium (Synthroid) 25 mcg DAILY@0600 PO 07/17/20 06:00 07/26/20 06:01 Magnesium Hydroxide (Milk Of Magnesia) 30 ml DAILYPRN PRN PO CONSTIPATION 07/16/20 13:45 Miscellaneous (Unresolved Clarification Entry) SEE LABEL COMMENTS DAILY XX 07/16/20 09:00 07/16/20 16:06 DC Olanzapine (ZyPREXA) 5 mg DAILY PO 07/19/20 09:00 07/21/20 08:53 DC 07/21/20 08:40 Olanzapine (ZyPREXA) 10 mg QHS PO 07/21/20 21:00 07/25/20 20:34 Olanzapine (ZyPREXA) 20 mg QHS PO 07/15/20 21:00 07/16/20 15:59 DC 07/15/20 21:54 Olanzapine (ZyPREXA) 20 mg QHS PO 07/16/20 21:00 07/21/20 08:53 DC 07/20/20 20:34 Prazosin HCl (Minipress) 1 mg QHS PO 07/15/20 21:00 07/16/20 15:21 DC 07/15/20 21:54 Prazosin HCl (Minipress) 1 mg QHS PO 07/16/20 21:00 07/25/20 20:37 Trazodone HCl (Desyrel) 50 mg QHSP PRN PO INSOMNIA 07/16/20 13:45 07/24/20 21:42 Zonisamide (Zonegran) 200 mg BID PO 07/15/20 21:00 07/16/20 15:22 DC 07/16/20 09:01 Zonisamide (Zonegran) 200 mg BID PO 07/16/20 21:00 07/26/20 09:20 Allergies Coded Allergies: Cephalosporins (Verified Allergy, Intermediate, HIVES, 03/28/20) cefaclor (Verified Allergy, Unknown, 07/12/19) lamotrigine (Verified Adverse Reaction, Severe, SJS, 07/12/19) CHANELLE DENNISON NP Jul 26, 2020 09:59
[2020-07-26] MEDS ORDERED: BENZ0.5T23 PO (10:49)
[2020-07-26] MEDS ORDERED: FLUO40CA PO (10:49)
[2020-07-26] MEDS ORDERED: OLAN10TA2 PO (10:49)
[2020-07-26 17:19] VITALS: BP 146/80
[2020-07-26] MEDS: PRAZOSIN 1 MG CAP PO SCH (21:10)
[2020-07-26] MEDS: OLANZapine 10 MG TAB PO SCH (21:10)
[2020-07-27] MEDS: LEVOTHYROXINE 25MCG TABLET (0.025MG) PO SCH (05:42)
[2020-07-27 05:58] VITALS: BP 128/73
[2020-07-27] MEDS: FLUoxetine 20 MG CAP PO SCH (09:03)
[2020-07-27] MEDS: ZONISAMIDE 100 MG CAP (ZONEGRAN) PO SCH (09:03)
[2020-07-27] MEDS: ATORVASTATIN 20 MG TAB PO SCH (09:04)
--- NOTE | 2020-07-27 14:08 | MHDSPDOC ---
[facility] Discharge Summary Discharge Summary DATE OF ADMISSION: Jul 16, 2020 at 13:41 DATE OF DISCHARGE: Jul 27, 2020 at 11:23 DISCHARGE DIAGNOSES: Schizophrenia Intellectual Disability REASON FOR ADMISSION: This is Day 12 of patient's admission and she is being discharged today. Patient is a 35 -year-old Single, Intellectually Disabled, Domiciled , female, who reports that she has voices telling her to harm herself. Patient was recently discharged from this facility on 07/06/20 and has been living with derogatory and command hallucinations. She has a diagnosis of Schizophrenia. This is a patient with numerous psychiatric admissions and was recently admitted from 06/03/20-07/06/20. Pt is calm, guarded, gives delayed, one word answers to most questions, admits she has been having Command AH to harm self. Pt reports the "voices are telling me to do it", pt adds that AH commanding her to "cut my wrist". Pt also reports the voices are telling her to harm her mother as well. PT was d/c'd from [facility] x1 week ago, has multiple prior admissions to [facility], is currently seen at [facility], pt reports compliance with outpt tx and medications. Pt also stating she feels "sad" and "depressed" though is guarded about any specific stressors, denies any substance abuse, admits to prior attempts at self-harm, typically by cutting self. Pt denies any change in sleep or appetite recently, continues to voice SI with plan in ED. Per ED report: Pt expressing SI today, mother called 911 with concerns that pt may harm herself. Pt well known from prior Psych admissions, has hx of Schizophrenia and mild intellectual development d/o. CONSULTANTS INVOLVED: See Medical H + P by Hospitalist TREATMENT AND PROGRESS ON THE UNIT: Patient was admitted to the [facility] on a legal status he was afforded the following treatment modalities: 1) Individual Therapy 2) Group Therapy 3) Medication Management 4) Milieu Therapy 5) Safe Environment HOSPITAL COURSE: Patient was readmitted to [facility] on a 39 legal status and was started on her home medications. Prozac was increased and Zyprexa was decreased as she had continued to be in her room sleeping initially in her admission. The titration of the Zyprexa allowed the patient to improve and she was more alert and cooperative in taking care of ADLs and being out in the milieu including being in the groups which she often on many admissions did not participate in. In today's session she reports that she is feeling better and that she happy to be going home today. DISCHARGE ASSESSMENT: In today's interview, patient is alert and oriented, pts dress is appropriate. Hygiene and grooming is well-kempt. Smiles on approach and is pleasant and engaged in the interview. Denies depression and anxiety. Denies suicidal and homicidal ideation, planning or intent. Denies and is not observed with marybeth, psychotic symptoms of delusions, bizarre thinking, obsessions, paranoia, ruminations illogical thoughts, flight of ideas or having poor insight and judgement. Patient has normal mentation, declines further hospitalization on a voluntary status and meets criteria for discharge today. MENTAL STATUS EXAMINATION ON DISCHARGE: Patient is a 35 -year-old Single, Intellectually Disabled, Domiciled , female, who reports that she has voices telling her to harm herself. Speech: Is normal rate, tone and volume Language skills are intact Thought processes including: linear and goal oriented Thought content: denies depression and anxiety. Denies suicidal/homicidal ideation, planning or intent. Abstract reasoning, and computation: fair Description of associations: denies, none observed Description of abnormal or psychotic thoughts: denies, none observed. Judgment: fair Insight: fair Orientation: alert and oriented to person, place, time and situation Recent and remote memory: intact Attention span and concentration: good Language: expansive Fund of knowledge: average Mood: Euthymic Mood Affect: reactive MEDICATIONS ON DISCHARGE: See Medication Reconciliation PLAN/FOLLOWUP ARRANGEMENTS: [facility] The amount of time spent in the coordination of care for this patient was approximately 25 minutes. ETOH/Disorder Med Rx ETOH/DRUG DISORDER RX: N/A Vital Signs/I&Os Vital Signs Date Time Temp Pulse Resp B/P (MAP) Pulse Ox O2 Delivery O2 Flow Rate FiO2 07/27/20 05:58 98.3 95 16 128/73 (91) 98 Room Air Medications Scheduled Atorvastatin Calcium (Lipitor) 20 Mg Tab, 20 MG PO DAILY, (Reported) Calcium Carbonate/Vitamin D3 (Calcium 600-Vit D3 200 Tablet) 1 Tab Tab, 1 TAB PO BID, (Reported) Clobazam (Clobazam) 10 Mg Tablet, 15 MG PO BID, (Reported) Ergocalciferol (Vitamin D2) (Vitamin D2) 50,000 Units Cap, 50,000 UNITS PO Q2WK, (Reported) EVERY OTHER THURSDAY Fluoxetine Hcl (Fluoxetine HCl) 40 Mg Capsule, 80 MG PO DAILY for Depression, #14 Take Two capsules daily Levothyroxine Sodium (Levothyroxine Sodium) 25 Mcg Tab, 25 MCG PO DAILY, (Reported) Olanzapine (Olanzapine) 10 Mg Tablet, 10 MG PO QHS for Antipsychotic, #7 Prazosin Hcl (Prazosin HCl) 1 Mg Capsule, 1 MG PO QHS, (Reported) Zonisamide (Zonisamide) 100 Mg Cap, 200 MG PO BID, (Reported) Scheduled PRN Albuterol Sulf (Albuterol Sulfate) 2.5 Mg/3 Ml Vial.neb, 2.5 MG INH QID PRN for SOB/WHEEZING, (Reported) Benztropine Mesylate (Benztropine Mesylate) 0.5 Mg Tablet, 0.5 MG PO BIDP PRN for EPS, #14 Allergies Coded Allergies: Cephalosporins (Verified Allergy, Intermediate, HIVES, 03/28/20) cefaclor (Verified Allergy, Unknown, 07/12/19) lamotrigine (Verified Adverse Reaction, Severe, SJS, 07/12/19) CHANELLE DENNISON NP Jul 27, 2020 14:00
[2020-07-28] MEDS ORDERED: TRIMSOL10 OU (12:35)
[2020-07-28] MEDS ORDERED: BENZ0.5T23 PO (12:35)
[2020-07-28] MEDS ORDERED: FLUO40CA PO (12:35)
[2020-07-28] MEDS ORDERED: EQ A1CRE3 TOP (12:35)
== END 2020-07-27 11:23 | disposition home or self-care (01) | DRG 885 ==
LOC: M ED 19:31 → M ED INP 07-16 13:41 → M PSY 07-16 14:20
PROVIDERS: ADMIT Psychiatry & Neurology Child & Adolescent Psychiatry; ATTEND Psychiatry & Neurology Psychiatry
DX: F20.9 Schizophrenia, unspecified (principal); F70 Mild intellectual disabilities; Z79.899 Other long term (current) drug therapy; Z88.8 Allergy status to other drugs, medicaments and biological substances; E03.9 Hypothyroidism, unspecified; D50.9 Iron deficiency anemia, unspecified; K21.9 Gastro-esophageal reflux disease without esophagitis; K44.9 Diaphragmatic hernia without obstruction or gangrene; J45.909 Unspecified asthma, uncomplicated; K76.0 Fatty (change of) liver, not elsewhere classified; G40.909 Epilepsy, unspecified, not intractable, without status epilepticus

== ENCOUNTER 2020-07-28 08:57 | Observation (INO) | payer MEDICARE, MEDICAID ==
[~2020-07-28] VITALS: Ht 167.6 cm; Wt 96.3 kg
[~2020-07-28 08:57] MED LIST changes: +BENZ0.5T23 PO; +ERYT5OIN25 OU; +FLUO20CA20 PO; +FLUO40CA PO; +PRAZ1CAP PO
[2020-07-28 09:56] LABS: BASO % 0.6 % (0.0-1.0); EOS # 0.2 10^3/uL (0.0-0.5); EOS % 3.2 % (0.0-3.0); HEMATOCRIT 40.6 % (36.0-47.0); HEMOGLOBIN 12.6 g/dl (12.0-15.5); LYMPH # 1.2 10^3/uL (1.5-5.0); LYMPH % 18.5 % (24.0-44.0); MEAN CORPUSCULAR HEMOGLOBIN 28.8 pg (27.0-33.0); MEAN CORPUSCULAR VOLUME 92.7 fl (80.0-96.0); MONO # 0.7 10^3/uL (0.0-0.8); MONO % 9.8 % (2.0-8.0); NEUTROPHILS # 4.5 10^3/uL (1.5-8.5); NEUTROPHILS % 67.6 % (36.0-66.0); PLATELET COUNT, AUTOMATED 251 10^3/uL (150-450); RED BLOOD COUNT 4.38 10^6/uL (4.00-5.40); WHITE BLOOD COUNT 6.7 10^3/uL (4.0-10.0)
--- NOTE | 2020-07-28 09:58 | REP ---
INDICATION: Altered Mental Status COMPARISON: 06/22/2014 TECHNIQUE: Portable AP view of the chest FINDINGS: The mediastinum and cardiac silhouette are stable and within normal limits for portable technique. The lung romo are clear without acute consolidation, effusion, or pneumothorax. Skeletal structures are intact. IMPRESSION: No acute cardiopulmonary process appreciated. <Electronically signed by Jimmie Jennings > 07/28/20 [id number]
[2020-07-28 10:05] LABS: HCG, SERUM QUALITATIVE NEGATIVE (NEGATIVE)
[2020-07-28 10:20] LABS: ACETAMINOPHEN LEVEL < 2.0 UG/ML (10.0-30.0); ALBUMIN 3.4 GM/DL (3.2-5.2); ALT/SGPT 25 U/L (12-78); BILIRUBIN,DIRECT < 0.1 MG/DL (0.0-0.2); BILIRUBIN,TOTAL 0.2 MG/DL (0.2-1.0); BLOOD UREA NITROGEN 11 MG/DL (7-18); CALCIUM LEVEL 8.3 MG/DL (8.5-10.1); CARBON DIOXIDE LEVEL 24 MEQ/L (21-32); CHLORIDE LEVEL 114 MEQ/L (98-107); CK-MB VALUE MASS 3.8 NG/ML (<3.6); CPK CREATINE PHOSPHOKINASE 422 U/L (26-192); CREATININE FOR GFR 0.83 MG/DL (0.55-1.30); ETHYL ALCOHOL (ETHANOL) 0.003 % (0.000-0.010); GLOMERULAR FILTRATION RATE > 60.0 (>60); GLUCOSE, FASTING 100 MG/DL (70-100); POTASSIUM SERUM 4.2 MEQ/L (3.5-5.1); SALICYLATE LEVEL < 1.7 MG/DL (5.0-30.0); SODIUM LEVEL 143 MEQ/L (136-145); TOTAL PROTEIN 6.2 GM/DL (6.4-8.2); TROPONIN I < 0.02 NG/ML (< 0.10)
--- NOTE | 2020-07-28 10:25 | REP ---
INDICATION: R/O DVT COMPARISON: None. TECHNIQUE: Gomez scale and color Doppler evaluation bilateral lower extremities using linear high frequency transducer. FINDINGS: Ultrasound examination of the right and left lower extremity deep venous structures from the common femoral vein to the popliteal vein demonstrates normal compressibility flow and wave patterns in response to respiration and augmentation. There is no evidence for deep venous thrombosis. IMPRESSION: No evidence for deep venous thrombosis of the bilateral lower extremities. <Electronically signed by Jimmie Jennings > 07/28/20 1028
[2020-07-28 10:49] LABS: RSV AMPLIFICATION NEGATIVE (NEGATIVE)
--- NOTE | 2020-07-28 10:57 | REP ---
INDICATION: Altered Mental Status COMPARISON: 06/07/2019 TECHNIQUE: Axial noncontrast images from the skull base to the vertex with coronal reformations. This CT examination was performed using the following dose reduction techniques: Automated exposure control, adjustment of mA and/or kv according to the patient's size, and use of iterative reconstruction technique. FINDINGS: The ventricles, sulci, and cisterns are normal in position and appearance. Gomez-white differentiation is maintained. No acute intracranial hemorrhage, mass/mass effect, pathology or trauma/injury. No evidence for acute infarction. No extra-axial fluid collection. Calvarium is intact. Paranasal sinuses and mastoid air cells are clear. IMPRESSION: Normal noncontrast head CT. No evidence for acute intracranial pathology or trauma/injury. <Electronically signed by Jimmie Jennings > 07/28/20 1052
[2020-07-28 11:41] LABS: AMPHETAMINES LEVEL URINE NEGATIVE (NEGATIVE); BARBITURATES URINE NEGATIVE (NEGATIVE); BENZODIAZEPINES URINE POSITIVE (NEGATIVE); CANNABINOIDS URINE NEGATIVE (NEGATIVE); COCAINE METABOLITE URINE NEGATIVE (NEGATIVE); METHADONE URINE NEGATIVE (NEGATIVE); OPIATES URINE NEGATIVE (NEGATIVE); PHENCYCLIDINE URINE NEGATIVE (NEGATIVE)
[2020-07-28] MEDS ORDERED: FLUO40CA PO (12:35)
[2020-07-28] MEDS ORDERED: BENZ0.5T23 PO (12:35)
[2020-07-28] MEDS ORDERED: EQ A1CRE3 TOP (12:35)
[2020-07-28] MEDS ORDERED: TRIMSOL10 OU (12:35)
[2020-07-28] MEDS ORDERED: ALBUTEROL SULFATE 2.5 MG/0.5 ML INH NEB SOLN INH PRN (12:45)
[2020-07-28] MEDS ORDERED: ACETAMINOPHEN TAB 650MG DOSE (2X325MG) PO PRN (12:45)
[2020-07-28] MEDS ORDERED: PILL CUTTER 1 EACH XX PRN (13:00)
--- NOTE | 2020-07-28 13:00 | HPEPDOC ---
General Date of Admission 07/28/20 Date of Service: Jul 28, 2020 Chief Complaint The patient is a 35-year-old female admitted with a reason for visit of Lt Leg Swollen. Source: Family Exam Limitations: Clinical conditions, Mild cognitive slowing Timing/Duration: 24 hours Severity: Moderate History of Present Illness Patient is 35 years old female with past medical history of Mild intellectual disability, GERD/Hiatal hernia/Gastroparesis, Nonalcoholic fatty liver disease, Asthma, Allergic rhinitis, Paranoid schizophrenia, Temporal lobe seizure, Obesity, Hypothyroid, HLD presented to the hospital with generalized weakness. According to her mom patient was discharged from [facility] 2 days ago, since yesterday patient developed more cognitive slowing associated with generalized weakness. Of note, patient was prescribed new medications benztropine and the dose of Prozac was increased to 80 mg from 40 mg. Her mom stated that after initiation of increased dose of benztropine and Prozac patient developed these symptoms. In ER patient was found to have no leukocytosis, hemoglobin 12.6, TSH within normal limit, ammonia level 34, head CT scan negative for acute intracranial pathology or trauma Home Medications Scheduled Atorvastatin Calcium (Lipitor) 20 Mg Tab, 20 MG PO DAILY, (Reported) Benztropine Mesylate (Benztropine Mesylate) 0.5 Mg Tablet, 0.5 MG PO BID, (Reported) Calcium Carbonate/Vitamin D3 (Calcium 600-Vit D3 200 Tablet) 1 Tab Tab, 1 TAB PO BID, (Reported) Clobazam (Clobazam) 10 Mg Tablet, 15 MG PO BID, (Reported) Ergocalciferol (Vitamin D2) (Vitamin D2) 50,000 Units Cap, 50,000 UNITS PO Q2WK, (Reported) EVERY OTHER THURSDAY Fluoxetine Hcl (Fluoxetine HCl) 40 Mg Capsule, 80 MG PO DAILY, (Reported) Levothyroxine Sodium (Levothyroxine Sodium) 25 Mcg Tab, 25 MCG PO DAILY, (Reported) Polymyxin B Sulf/Trimethoprim (Polymyxin B-Tmp Eye Drops) 10 Ml Drops, 1 DROP OU QID, (Reported) Prazosin Hcl (Prazosin HCl) 1 Mg Capsule, 1 MG PO QHS, (Reported) Zonisamide (Zonisamide) 100 Mg Cap, 200 MG PO BID, (Reported) Scheduled PRN Albuterol Sulf (Albuterol Sulfate) 2.5 Mg/3 Ml Vial.neb, 2.5 MG INH QID PRN for SOB/WHEEZING, (Reported) Terbinafine HCl (Terbinafine) 30 Gm Cream..g., 1 APPLIC TOP BID PRN for FLARE UPS, (Reported) APPLY TO CHEST AND UPPER BACK Allergies Coded Allergies: Cephalosporins (Verified Allergy, Intermediate, HIVES, 03/28/20) cefaclor (Verified Allergy, Unknown, 07/12/19) lamotrigine (Verified Adverse Reaction, Severe, SJS, 07/12/19) Past Medical History Medical History Mild intellectual disability GERD/Hiatal hernia/Gastroparesis Nonalcoholic fatty liver disease Asthma Allergic rhinitis Paranoid schizophrenia Temporal lobe seizure Obesity Hypothyroid Iron def Menorrhagia HLD Surgical History Appendectomy Pyloric stenosis Tumor removed from uterus Endometrial ablation Family History Father has diabetes Social History * Smoker: Denies Alcohol: Denies Drugs: denies A-FIB/CHADSVASC A-FIB History Current/History of A-Fib/PAF?: No Current PO Anticoag Therapy: No Review of Systems Constitutional: Denies: Chills, Fever Eyes: Denies: Pain ENT: Denies: Head Aches Skin: Denies: Rash, Lesions Pulmonary: Denies: Dyspnea Cardiovascular: Denies: Chest Pain Gastrointestinal: Denies: Vomiting Genitourinary: Denies: Dysuria Hematologic: Denies: Bruising, Bleeding Excessively Endocrine: Denies: Polydipsia Musculoskeletal: Denies: Neck Pain Neurological: Reports: Confusion; Denies: Weakness Psych: Denies: Thoughts of Self Harm, Anger Physical Examination General Exam: Positive: Mild Distress; Negative: Alert Eye Exam: Positive: PERRLA ENT Exam: Positive: Atraumatic Neck Exam: Positive: Supple; Negative: JVD Chest Exam: Positive: Clear to auscultation Heart Exam: Positive: Rate Normal Telemetry: Positive: No significant arrhythmia Abdomen Exam: Positive: Normal bowel sounds Extremity Exam: Negative: Clubbing, Cyanosis Skin Exam: Positive: Nl turgor and temperature Neuro Exam: Positive: Cranial Nerves 3-12 NL Psych Exam: Negative: Mental status NL (more cognitive slowing from her baseline) Vital Signs Vital Signs Date Time Temp Pulse Resp B/P (MAP) Pulse Ox O2 Delivery O2 Flow Rate FiO2 07/28/20 11:32 71 94 07/28/20 11:16 18 119/66 (83) Room Air 07/28/20 09:04 98.3 Laboratory Data Labs 24H Laboratory Tests 2 07/28/20 09:39: Immature Granulocyte % (Auto) 0.3, Neutrophils (%) (Auto) 67.6H, Lymphocytes (%) (Auto) 18.5L, Monocytes (%) (Auto) 9.8H, Eosinophils (%) (Auto) 3.2H, Basophils (%) (Auto) 0.6, Neutrophils # (Auto) 4.5, Lymphocytes # (Auto) 1.2L, Monocytes # (Auto) 0.7, Eosinophils # (Auto) 0.2, Basophils # (Auto) 0.0, Nucleated Red Blood Cells % (auto) 0.0, Anion Gap 5L, Glomerular Filtration Rate > 60.0, Calcium Level 8.3L, Total Bilirubin 0.2, Direct Bilirubin < 0.1, Aspartate Amino Transf (AST/SGOT) 25, Alanine Aminotransferase (ALT/SGPT) 25, Alkaline Phosphatase 115, Ammonia 34H, Total Creatine Kinase 422H, Creatine Kinase MB 3.8H, Creatine Kinase MB Relative Index 0.90, Troponin I < 0.02, Total Protein 6.2L, Albumin 3.4, Albumin/Globulin Ratio 1.2, Thyroid Stimulating Hormone (TSH) 1.980, Human Chorionic Gonadotropin, Qual NEGATIVE, Salicylates Level < 1.7L, Acetaminophen Level < 2.0L, Ethyl Alcohol Level 0.003 07/28/20 10:03: Urine Color YELLOW, Urine Appearance HAZY, Urine pH 6.0, Urine Specific [place] 1.015, Urine Protein NEGATIVE, Urine Glucose (UA) NEGATIVE, Urine Ketones NEGATIVE, Urine Blood NEGATIVE, Urine Nitrite NEGATIVE, Urine Bilirubin NEGATIVE, Urine Urobilinogen 0.2, Urine Leukocyte Esterase 3+H, Urine WBC (Auto) 7H, Urine RBC (Auto) 2, Urine Hyaline Casts (Auto) 0, Urine Bacteria (Auto) 1+H, Urine Squamous Epithelial Cells 11, Urine Sperm (Auto) , Urine Opiates Screen NEGATIVE, Urine Methadone Screen NEGATIVE, Urine Barbiturates Screen NEGATIVE, Urine Phencyclidine Screen NEGATIVE, Urine Amphetamines Screen NEGATIVE, Urine Benzodiazepines Screen POSITIVEH, Urine Cocaine Metabolite Screen NEGATIVE, Urine Cannabinoids Screen NEGATIVE 07/28/20 10:04: Coronavirus (COVID-19)(PCR) NEGATIVE, Influenza Type A (RT-PCR) NEGATIVE, Influenza Type B (RT-PCR) NEGATIVE, Respiratory Syncytial Virus (PCR) NEGATIVE CBC/BMP Laboratory Tests 07/28/20 09:39 Microbiology Microbiology 07/28/20 Urine Culture, Received Pending 07/28/20 Blood Culture, Received Pending 07/28/20 Blood Culture, Received Pending Assessment/Plan Patient is 35 years old female with past medical history of Mild intellectual disability, GERD/Hiatal hernia/Gastroparesis, Nonalcoholic fatty liver disease, Asthma, Allergic rhinitis, Paranoid schizophrenia, Temporal lobe seizure, Obesity, Hypothyroid, HLD presented to the hospital with generalized weakness. According to her mom patient was discharged from [facility] 2 days ago, since yesterday patient developed more cognitive slowing associated with generalized weakness. Of note, patient was prescribed new medications benztropine and the dose of Prozac was increased to 80 mg from 40 mg. Her mom stated that after initiation of increased dose of benztropine and Prozac patient developed these symptoms. In ER patient was found to have no leukocytosis, hemoglobin 12.6, TSH within normal limit, ammonia level 34, head CT scan negative for acute intracranial pathology or trauma Problems (1) Metabolic encephalopathy Status: Acute Problem Text: Patient developed acute metabolic encephalopathy most likely secondary to polypharmacy CT head negative. Unlikely infectious process, no leukocytosis, no fever Benztropine on hold Appreciate/agree with psych consult (2) Hypothyroidism Problem Text: Continue levothyroxine TSH within normal limit (3) Schizophrenia Status: Chronic Problem Text: Continue home meds According to mom patient did not have any suicidal ideation for now Plan / VTE VTE Prophylaxis Ordered?: Yes SIRI LUQUE DO Jul 28, 2020 12:59
[2020-07-28 16:00] VITALS: BP 135/69
--- NOTE | 2020-07-28 16:02 | ECGEPIP ---
[facility] - ED Test Date: 2020-07-28 Pat Name: ARGELIA CARLOS Department: Room: - Gender: Female Security Attendant: Sera HANLEY : 1985 Requested By: Kathleen Livingston Order Number: [id number] Reading MD: Kathleen Livingston Measurements Intervals [place] Rate: 94 P: 27 SC: 148 QRS: 41 QRSD: 82 T: 15 QT: 362 QTc: 452 Interpretive Statements Normal sinus rhythm NONSPECIFIC ST T WAVE CHANGES 07/14/[address] T WAVE CHANGES Electronically Signed on 07-28-2020 16:01:59 EST by Kathleen Livingston
[2020-07-28] MEDS: FLUoxetine 20 MG CAP PO SCH (16:12)
[2020-07-28] MEDS: POLYTRIM OPTH DROPS 10ML OU SCH ×2 (16:12→20:23)
[2020-07-28] MEDS: ATORVASTATIN 20 MG TAB PO SCH (16:12)
[2020-07-28] MEDS: ENOXAPARIN 40MG/0.4ML SYRINGE (J1650 PER 10MG) SC SCH (16:12)
[2020-07-28 20:22] VITALS: BP 96/53
[2020-07-28] MEDS ORDERED: PRAZOSIN 1 MG CAP PO SCH (21:00)
[2020-07-28 22:00] VITALS: BP 100/57
--- NOTE | 2020-07-28 22:21 | MHIPNPDOC ---
[facility] Progress Note Progress Note DATE OF SERVICE: 07/28/20 HISTORY: As per previous notes: "Patient is 35 years old female with past medical history of Mild intellectual disability, GERD/Hiatal hernia/Gastroparesis, Nonalcoholic fatty liver disease, Asthma, Allergic rhinitis, Paranoid schizophrenia, Temporal lobe seizure, Obesity, Hypothyroid, HLD presented to the hospital with generalized weakness. According to her mom patient was discharged from [facility] 2 days ago, since yesterday patient developed more cognitive slowing associated with generalized weakness. Of note, patient was prescribed new medications benztropine and the dose of Prozac was increased to 80 mg from 40 mg. Her mom stated that after initiation of increased dose of benztropine and Prozac patient developed these symptoms. In ER patient was found to have no leukocytosis, hemoglobin 12.6, TSH within normal limit, ammonia level 34, head CT scan negative for acute intracranial pathology or trauma" VITAL SIGNS: See below. NEW TEST RESULTS: See below CURRENT MEDICATIONS: See below. MENTAL STATUS EXAMINATION: Patient is a 35 year old female, who is alert, laying in bed, dressed in hospital clothes. Speech: Is slow, needs prompting, normal tone and volume. Language skills are difficult to assess, she is very sleepy Thought processes including: not psychotic, linear Thought content: negative for thought delusions, negative for homicidal thoughts, suicidal thoughts Abstract reasoning, and computation: the patient can't focus at this time, has difficulty concentrating Description of associations: not loose Description of abnormal or psychotic thoughts: she is not delusional, she denies TAV hallucinations, she is not responding to internal stimuli Judgment: limited Insight: limited Orientation: to place, person, date and situation Recent and remote memory: fair Attention span and concentration: she was able to focus. Language: Fund of knowledge: below average Mood: "OK". Affect: Congruent with mood DIAGNOSES: Schizophrenia Intellectual Disability ASSESSMENT: The patient was discharged yesterday from [facility] and according to notes from that admission, patient was stable, physically and medically upon discharge. There is no mention of her having pain or swelling in her legs. The medications she was discharged on, don't cause a limp or swelling but she says she lives by herself and she knows at what time to take her medications. It is unclear if she has some supervision when it comes to taking her medicines. She seems to be a little bit lethargic, she says she has felt tired and her CK is elevated. At this point the patient doesn't show signs of serotonin syndrome or neuroleptic malignant syndrome. MANAGEMENT PLAN: Waiting for her blood and urine cultures. TIME SPENT: 20 minutes. Vital Signs Vital Signs Date Time Temp Pulse Resp B/P (MAP) Pulse Ox O2 Delivery O2 Flow Rate FiO2 07/28/20 20:22 96/53 07/28/20 16:00 98.7 87 18 97 Room Air Laboratory Data 24H Labs Laboratory Tests 2 07/28/20 09:39: Immature Granulocyte % (Auto) 0.3, Neutrophils (%) (Auto) 67.6H, Lymphocytes (%) (Auto) 18.5L, Monocytes (%) (Auto) 9.8H, Eosinophils (%) (Auto) 3.2H, Basophils (%) (Auto) 0.6, Neutrophils # (Auto) 4.5, Lymphocytes # (Auto) 1.2L, Monocytes # (Auto) 0.7, Eosinophils # (Auto) 0.2, Basophils # (Auto) 0.0, Nucleated Red Blood Cells % (auto) 0.0, Anion Gap 5L, Glomerular Filtration Rate > 60.0, Calcium Level 8.3L, Total Bilirubin 0.2, Direct Bilirubin < 0.1, Aspartate Amino Transf (AST/SGOT) 25, Alanine Aminotransferase (ALT/SGPT) 25, Alkaline Phosphatase 115, Ammonia 34H, Total Creatine Kinase 422H, Creatine Kinase MB 3.8H, Creatine Kinase MB Relative Index 0.90, Troponin I < 0.02, Total Protein 6.2L, Albumin 3.4, Albumin/Globulin Ratio 1.2, Thyroid Stimulating Hormone (TSH) 1.980, Human Chorionic Gonadotropin, Qual NEGATIVE, Salicylates Level < 1.7L, Acetaminophen Level < 2.0L, Ethyl Alcohol Level 0.003 07/28/20 10:03: Urine Color YELLOW, Urine Appearance HAZY, Urine pH 6.0, Urine Specific [place] 1.015, Urine Protein NEGATIVE, Urine Glucose (UA) NEGATIVE, Urine Ketones NEGATIVE, Urine Blood NEGATIVE, Urine Nitrite NEGATIVE, Urine Bilirubin NEGATIVE, Urine Urobilinogen 0.2, Urine Leukocyte Esterase 3+H, Urine WBC (Auto) 7H, Urine RBC (Auto) 2, Urine Hyaline Casts (Auto) 0, Urine Bacteria (Auto) 1+H, Urine Squamous Epithelial Cells 11, Urine Sperm (Auto) , Urine Opiates Screen NEGATIVE, Urine Methadone Screen NEGATIVE, Urine Barbiturates Screen NEGATIVE, Urine Phencyclidine Screen NEGATIVE, Urine Amphetamines Screen NEGATIVE, Urine Benzodiazepines Screen POSITIVEH, Urine Cocaine Metabolite Screen NEGATIVE, Urine Cannabinoids Screen NEGATIVE 07/28/20 10:04: Coronavirus (COVID-19)(PCR) NEGATIVE, Influenza Type A (RT-PCR) NEGATIVE, Influenza Type B (RT-PCR) NEGATIVE, Respiratory Syncytial Virus (PCR) NEGATIVE CBC/BMP Laboratory Tests 07/28/20 09:39 Current Medications Current Medications Medications (Trade) Dose Ordered Sig/Jonathan Route PRN Reason Start Time Stop Time Status Last Admin Dose Admin Acetaminophen (Tylenol Tab) 650 mg Q4H PRN PO PAIN OR FEVER 07/28/20 12:45 Albuterol Sulfate (Proventil Neb) 2.5 mg QID PRN INH SOB/WHEEZING 07/28/20 12:45 Atorvastatin Calcium (Lipitor) 20 mg DAILY PO 07/28/20 09:00 07/28/20 16:12 Clobazam (Onfi) 15 mg BID PO 07/28/20 21:00 07/28/20 20:23 Enoxaparin Sodium (Lovenox) 40 mg DAILY SC 07/28/20 09:00 07/28/20 16:12 Fluoxetine HCl (PROzac) 40 mg DAILY PO 07/28/20 09:00 07/28/20 16:12 Home Med (Med Rec Complete!) ASDIRECTED XX 07/28/20 12:40 07/28/20 12:37 DC Levothyroxine Sodium (Synthroid) 25 mcg DAILY@0600 PO 07/29/20 06:00 Polymyxin/ Trimethoprim Sulfate (Polytrim Ophth Drops) 1 drop QID OU 07/28/20 17:00 07/28/20 20:23 Prazosin HCl (Minipress) 1 mg QHS PO 07/28/20 21:00 07/28/20 20:22 Allergies Coded Allergies: Cephalosporins (Verified Allergy, Intermediate, HIVES, 03/28/20) cefaclor (Verified Allergy, Unknown, 07/12/19) lamotrigine (Verified Adverse Reaction, Severe, SJS, 07/12/19) SAVANNAH RUBIN MD Jul 28, 2020 22:19
[2020-07-29 06:00] VITALS: BP 131/61
[2020-07-29] MEDS ORDERED: LEVOTHYROXINE 25MCG TABLET (0.025MG) PO SCH (06:00)
[2020-07-29 06:04] LABS: HEMATOCRIT 41.9 % (36.0-47.0); HEMOGLOBIN 12.6 g/dl (12.0-15.5); MEAN CORPUSCULAR HEMOGLOBIN 28.2 pg (27.0-33.0); MEAN CORPUSCULAR HGB CONC 30.1 g/dl (32.0-36.5); MEAN CORPUSCULAR VOLUME 93.7 fl (80.0-96.0); PLATELET COUNT, AUTOMATED 278 10^3/uL (150-450); RED BLOOD COUNT 4.47 10^6/uL (4.00-5.40); WHITE BLOOD COUNT 7.1 10^3/uL (4.0-10.0)
[2020-07-29 06:32] LABS: ALBUMIN 3.2 GM/DL (3.2-5.2); ALT/SGPT 22 U/L (12-78); BILIRUBIN,TOTAL 0.2 MG/DL (0.2-1.0); BLOOD UREA NITROGEN 15 MG/DL (7-18); CALCIUM LEVEL 8.2 MG/DL (8.5-10.1); CARBON DIOXIDE LEVEL 27 MEQ/L (21-32); CHLORIDE LEVEL 110 MEQ/L (98-107); CREATININE FOR GFR 0.94 MG/DL (0.55-1.30); GLOMERULAR FILTRATION RATE > 60.0 (>60); GLUCOSE, FASTING 91 MG/DL (70-100); MAGNESIUM LEVEL 1.8 MG/DL (1.8-2.4); POTASSIUM SERUM 4.1 MEQ/L (3.5-5.1); SODIUM LEVEL 141 MEQ/L (136-145); TOTAL PROTEIN 6.1 GM/DL (6.4-8.2)
[2020-07-29] MEDS ORDERED: CIPROFLOXACIN 250MG TAB PO ONE (09:00)
[2020-07-29] MEDS: ENOXAPARIN 40MG/0.4ML SYRINGE (J1650 PER 10MG) SC SCH (09:00)
[2020-07-29] MEDS: POLYTRIM OPTH DROPS 10ML OU SCH (09:00)
[2020-07-29] MEDS: ATORVASTATIN 20 MG TAB PO SCH (09:01)
[2020-07-29] MEDS: FLUoxetine 20 MG CAP PO SCH (09:01)
[2020-07-29] MEDS ORDERED: CIPR-250 PO (09:38)
[2020-07-29] MEDS ORDERED: FLUO40CA PO (09:38)
[2020-07-29] MEDS ORDERED: ZYPR10TA PO (09:40)
--- NOTE | 2020-07-29 12:06 | DS.PDOC ---
Discharge Summary General Date of Admission Jul 28, 2020 at 12:41 Date of Discharge 07/29/20 Discharge Summary PROCEDURES PERFORMED DURING STAY: [None]. ADMITTING DIAGNOSES: Metabolic encephalopathy Hypothyroidism Schizophrenia DISCHARGE DIAGNOSES: Metabolic encephalopathy Hypothyroidism Schizophrenia COMPLICATIONS/CHIEF COMPLAINT: Metabolic Encephalopathy. HISTORY OF PRESENT ILLNESS:Patient is 35 years old female with past medical history of Mild intellectual disability, GERD/Hiatal hernia/Gastroparesis, Nonalcoholic fatty liver disease, Asthma, Allergic rhinitis, Paranoid schizophrenia, Temporal lobe seizure, Obesity, Hypothyroid, HLD presented to the hospital with generalized weakness. According to her mom patient was discharged from [facility] 2 days ago, since yesterday patient developed more cognitive slowing associated with generalized weakness. Of note, patient was prescribed new medications benztropine and the dose of Prozac was increased to 80 mg from 40 mg. Her mom stated that after initiation of increased dose of benztropine and Prozac patient developed these symptoms. In ER patient was found to have no leukocytosis, hemoglobin 12.6, TSH within normal limit, ammonia level 34, head CT scan negative for acute intracranial pathology or trauma HOSPITAL COURSE: Patient doing much better in the morning, she was able to ambulate, mental status improved. I talked to Dr. Adrian , she recommended fluoxetine 40 mg and Zyprexa 10 mg on discharge and follow-up with psychiatrist in the outpatient settings. Patient also found to have UTI, ciprofloxacin prescribed DISCHARGE MEDICATIONS: Please see below. ALLERGIES: Please see below. PHYSICAL EXAMINATION ON DISCHARGE: VITAL SIGNS: Please see below. GENERAL APPEARANCE: NAD HEENT: no scleral icterus, no JVD, EOMI CARDIOVASCULAR: S1S2 LUNGS: CTA ABDOMEN: soft & not tender w palpitation MUSCULOSKELETAL: no cyanosis, no swelling INTEGUMENT: no generalized pallor NEUROLOGICAL: cranial nerve function from 2-12 intact intact, follows commands, speech not dysarthric LABORATORY DATA: Please see below. IMAGING: Axial noncontrast images from the skull base to the vertex with coronal reformations. This CT examination was performed using the following dose reduction techniques: Automated exposure control, adjustment of mA and/or kv according to the patient's size, and use of iterative reconstruction technique. FINDINGS: The ventricles, sulci, and cisterns are normal in position and appearance. Gomez- white differentiation is maintained. No acute intracranial hemorrhage, mass/mass effect, pathology or trauma/injury. No evidence for acute infarction. No extra-axial fluid collection. Calvarium is intact. Paranasal sinuses and mastoid air cells are clear. IMPRESSION: Normal noncontrast head CT. No evidence for acute intracranial pathology or trauma/injury. PROGNOSIS: Fair ACTIVITY: [As tolerated]. DIET: Regular DISPOSITION: 01 Home, Self-Care. DISCHARGE INSTRUCTIONS: Continue taking prescribed medications ITEMS TO FOLLOWUP ON ON OUTPATIENT: Follow-up with psychiatrist DISCHARGE CONDITION: [Stable]. TIME SPENT ON DISCHARGE: 30 minutes. Vital Signs/I&Os Vital Signs Date Time Temp Pulse Resp B/P (MAP) Pulse Ox O2 Delivery O2 Flow Rate FiO2 07/29/20 06:00 97.6 90 18 131/61 (84) 94 07/28/20 16:00 Room Air I&O- Last 24 Hours up to 6 AM 07/29/20 06:00 Intake Total 1140 ml Output Total 0 ml Balance 1140 ml Laboratory Data Labs 24H Laboratory Tests 2 07/29/20 05:37: Nucleated Red Blood Cells % (auto) 0.0, Anion Gap 4L, Glomerular Filtration Rate > 60.0, Calcium Level 8.2L, Magnesium Level 1.8, Total Bilirubin 0.2, Aspartate Amino Transf (AST/SGOT) 19, Alanine Aminotransferase (ALT/SGPT) 22, Alkaline Phosphatase 102, Total Protein 6.1L, Albumin 3.2, Albumin/Globulin Ratio 1.1L CBC/BMP Laboratory Tests 07/29/20 05:37 Microbiology Microbiology 07/28/20 Urine Culture - Final, Complete 07/28/20 Blood Culture - Preliminary, Resulted No growth after 24 hours . All specim... 07/28/20 Blood Culture - Preliminary, Resulted No growth after 24 hours . All specim... Discharge Medications Scheduled Atorvastatin Calcium (Lipitor) 20 Mg Tab, 20 MG PO DAILY, (Reported) Benztropine Mesylate (Benztropine Mesylate) 0.5 Mg Tablet, 0.5 MG PO BID, (Reported) Calcium Carbonate/Vitamin D3 (Calcium 600-Vit D3 200 Tablet) 1 Tab Tab, 1 TAB PO BID, (Reported) Ciprofloxacin HCl (Cipro) 250 Mg Tablet, 250 MG PO DAILY@06 Clobazam (Clobazam) 10 Mg Tablet, 15 MG PO BID, (Reported) Ergocalciferol (Vitamin D2) (Vitamin D2) 50,000 Units Cap, 50,000 UNITS PO Q2WK, (Reported) EVERY OTHER JENNIFER Fluoxetine Hcl (Fluoxetine HCl) 40 Mg Capsule, 40 MG PO DAILY Levothyroxine Sodium (Levothyroxine Sodium) 25 Mcg Tab, 25 MCG PO DAILY, (Reported) Olanzapine (Zyprexa) 10 Mg Tablet, 1 TAB PO QPM Polymyxin B Sulf/Trimethoprim (Polymyxin B-Tmp Eye Drops) 10 Ml Drops, 1 DROP OU QID, (Reported) Prazosin Hcl (Prazosin HCl) 1 Mg Capsule, 1 MG PO QHS, (Reported) Zonisamide (Zonisamide) 100 Mg Cap, 200 MG PO BID, (Reported) Scheduled PRN Albuterol Sulf (Albuterol Sulfate) 2.5 Mg/3 Ml Vial.neb, 2.5 MG INH QID PRN for SOB/WHEEZING, (Reported) Terbinafine HCl (Terbinafine) 30 Gm Cream..g., 1 APPLIC TOP BID PRN for FLARE UPS, (Reported) APPLY TO CHEST AND UPPER BACK Allergies Coded Allergies: Cephalosporins (Verified Allergy, Intermediate, HIVES, 03/28/20) cefaclor (Verified Allergy, Unknown, 07/12/19) lamotrigine (Verified Adverse Reaction, Severe, SJS, 07/12/19) SIRI LUQUE DO Jul 29, 2020 12:05
[2020-07-30] MEDS ORDERED: CIPROFLOXACIN 250MG TAB PO SCH (06:00)
== END 2020-07-29 10:33 | disposition home or self-care (01) ==
LOC: M ED 08:57 → M ED INP 12:41 → ENRESERV 13:55 → M MSPAV 15:34
PROVIDERS: ADMIT Internal Medicine; ATTEND Internal Medicine
DX: G93.41 Metabolic encephalopathy (principal); R22.42 Localized swelling, mass and lump, left lower limb; E03.9 Hypothyroidism, unspecified; F20.9 Schizophrenia, unspecified; F70 Mild intellectual disabilities; K21.9 Gastro-esophageal reflux disease without esophagitis; K44.9 Diaphragmatic hernia without obstruction or gangrene; K31.84 Gastroparesis; K75.81 Nonalcoholic steatohepatitis (NASH); J45.909 Unspecified asthma, uncomplicated; J30.9 Allergic rhinitis, unspecified; E66.9 Obesity, unspecified; E78.49 Other hyperlipidemia; Z79.899 Other long term (current) drug therapy; Z88.1 Allergy status to other antibiotic agents; Z88.8 Allergy status to other drugs, medicaments and biological substances; D50.9 Iron deficiency anemia, unspecified
CPT/HCPCS: 36415; 70450; 71045; 80048; 80053; 80076; 80143; 80307; 81001; 82077; 82140; 82550; 82553; 83735; 84443; 84484; 84703; 85025; 85027; 87040; 87086; 87631; 93005; 93041; 93970; 94760; 96372; 99285; G0378; J1650

== ENCOUNTER 2020-08-01 18:47 | Inpatient (IN) | payer MEDICARE, MEDICAID ==
[~2020-08-01] VITALS: Ht 170.2 cm; Wt 93.2 kg
[~2020-08-01 18:47] MED LIST changes: +CIPR-250 PO; +EQ A1CRE3 TOP; +TRIMSOL10 OU; +ZYPR10TA PO
[2020-08-01 20:12] LABS: HEMATOCRIT 43.1 % (36.0-47.0); HEMOGLOBIN 13.7 g/dl (12.0-15.5); MEAN CORPUSCULAR HEMOGLOBIN 29.1 pg (27.0-33.0); MEAN CORPUSCULAR HGB CONC 31.8 g/dl (32.0-36.5); MEAN CORPUSCULAR VOLUME 91.5 fl (80.0-96.0); PLATELET COUNT, AUTOMATED 281 10^3/uL (150-450); RED BLOOD COUNT 4.71 10^6/uL (4.00-5.40)
[2020-08-01 20:31] LABS: AMPHETAMINES LEVEL URINE NEGATIVE (NEGATIVE); BARBITURATES URINE NEGATIVE (NEGATIVE); BENZODIAZEPINES URINE POSITIVE (NEGATIVE); CANNABINOIDS URINE NEGATIVE (NEGATIVE); COCAINE METABOLITE URINE NEGATIVE (NEGATIVE); METHADONE URINE NEGATIVE (NEGATIVE); OPIATES URINE NEGATIVE (NEGATIVE); PHENCYCLIDINE URINE NEGATIVE (NEGATIVE)
[2020-08-01 20:39] LABS: HCG, SERUM QUALITATIVE NEGATIVE (NEGATIVE)
[2020-08-01] MEDS ORDERED: PRAZOSIN 1 MG CAP PO ONE (20:40)
[2020-08-01] MEDS ORDERED: BENZTROPINE 0.5 MG TAB PO ONE (20:40)
[2020-08-01] MEDS ORDERED: ZONISAMIDE 100 MG CAP (ZONEGRAN) PO ONE (20:40)
[2020-08-01] MEDS ORDERED: CALCIUM CARBONATE 500 MG CHEW U/D PO ONE (20:40)
[2020-08-01] MEDS ORDERED: OLANZapine 10 MG TAB PO ONE (20:40)
[2020-08-01 20:44] LABS: ACETAMINOPHEN LEVEL < 2.0 UG/ML (10.0-30.0); ALT/SGPT 33 U/L (12-78); BILIRUBIN,DIRECT < 0.1 MG/DL (0.0-0.2); BILIRUBIN,TOTAL 0.1 MG/DL (0.2-1.0); BLOOD UREA NITROGEN 9 MG/DL (7-18); CALCIUM LEVEL 8.6 MG/DL (8.5-10.1); CARBON DIOXIDE LEVEL 24 MEQ/L (21-32); CHLORIDE LEVEL 108 MEQ/L (98-107); CREATININE FOR GFR 0.87 MG/DL (0.55-1.30); ETHYL ALCOHOL (ETHANOL) < 0.003 % (0.000-0.010); GLOMERULAR FILTRATION RATE > 60.0 (>60); GLUCOSE, FASTING 94 MG/DL (70-100); POTASSIUM SERUM 3.7 MEQ/L (3.5-5.1); SALICYLATE LEVEL < 1.7 MG/DL (5.0-30.0); SODIUM LEVEL 139 MEQ/L (136-145); TOTAL PROTEIN 7.1 GM/DL (6.4-8.2)
[2020-08-01] MEDS ORDERED: MAALOX 30 ML SUSP *UDC PO PRN (21:55)
[2020-08-01] MEDS ORDERED: MOM 30ML SUSPENSION UDC PO PRN (21:55)
[2020-08-01 23:05] LABS: RSV AMPLIFICATION NEGATIVE (NEGATIVE)
[2020-08-01] MEDS ORDERED: FLUO40CA PO (23:10)
[2020-08-01] MEDS ORDERED: ZYPR10TA PO (23:10)
[2020-08-01] MEDS ORDERED: PATIENT COMMENT (23:11)
[2020-08-01] MEDS ORDERED: ALBUTEROL SULFATE 2.5 MG/0.5 ML INH NEB SOLN INH PRN (23:15)
[2020-08-01 23:42] VITALS: BP 129/89
[2020-08-02] MEDS: LEVOTHYROXINE 25MCG TABLET (0.025MG) PO SCH (05:58)
[2020-08-02] MEDS: ATORVASTATIN 20 MG TAB PO SCH (08:16)
[2020-08-02] MEDS: ZONISAMIDE 100 MG CAP (ZONEGRAN) PO SCH ×2 (08:16→21:56)
[2020-08-02] MEDS: FLUoxetine 20 MG CAP PO SCH (08:17)
[2020-08-02] MEDS: BENZTROPINE 0.5 MG TAB PO SCH ×2 (08:17→21:57)
[2020-08-02] MEDS: POLYTRIM OPTH DROPS 10ML OU SCH ×4 (08:18→21:57)
--- NOTE | 2020-08-02 11:57 | HPEPDOC ---
[facility] Medical History & Physical Date of Admission Aug 01, 2020 Date of Service: Aug 02, 2020 Attending Physician: Sandra Mac MD History and Physical HISTORY OF PRESENT ILLNESS: The patient is a 35-year-old female with PMH of intellectual development disorder, pituitary tumor, speech impediment, panic attacks, complex seizure disorder who was brought into the emergency room after police were called by her mother see the patient was trying to cut her wrist with scissors and tried to kill herself. She has had several [facility] admissions over the past several months for unspecified psychotic disorder, suicidal ideation, schizophrenia, depression. She also attempted to cut her wrists with her keys and hit her head against the window. Police brought her to the emergency room for further evalu ation. Upon arrival to the ER the patient denied homicidal ideations or visual hallucinations. She states she often has auditory hallucinations and said that that was the reason why she tried to cut her wrists initially was because the voices told her to. She denies issues sleeping, increased tearfulness, decreased appetite, homicidal or suicidal ideation. Upon examination by myself, the patient denies any pain, shortness of breath that is an overall poor historian. REVIEW OF SYSTEMS: Negative except mentioned above. PAST MEDICAL HISTORY: 1. Intellectual development disorder, mild 2. Pituitary tumor 3. Speech impediment 4. Panic attack 5. Complex seizure disorder 6. Homicidal/suicidal ideation hx 7. Hx of pyloric stenosis 8. Depression 9. Anxiety PAST SURGICAL HISTORY: 1. tubal ligation 2. uterus tumor removal 3. Appendectomy FAMILY HISTORY: Unknown by patient, patient poor historian due to intellectual deficiency SOCIAL HISTORY: Denies smoking, alcohol or drugs ALLERGIES: Please see below. HOME MEDICATIONS: Please see below. PHYSICAL EXAMINATION: VS: Please see below CONSTITUTIONAL: No acute distress, resting comfortably, AAO x 1 EYES: PERRLA, EOM intact HENT, MOUTH: Normocephalic, atraumatic, moist mucous membranes, corrective lenses in place NECK: SUPPLE, no JVD, no lymphadenopathy, no carotid bruit CV: Regular rate and rhythm, S1S2 normal, no murmurs/rubs/gallops RESPIRATORY: Clear to auscultation bilaterally, no rales/rhonchi/wheezes GI: obese abd, BS positive in 4 quadrants, soft, nontender, nondistended, no rebound or guarding, no organomegaly : Deferred MUSCULOSKELETAL: Normal ROM. No cyanosis, clubbing, swelling, joint deformity, extremity edema INTEGUMENTARY: Intact, no rashes, no lesions, no erythema NEUROLOGIC: Cranial Nerves II-XII are intact, no focal deficits PSYCH: odd affect, does not make eye contact LABORATORY DATA: Please see below IMAGING: None ASSESSMENT: 35 y/o F admitted to [facility] for unspecified psychotic disorder, suicidal ideations. PLAN: Unspecified psychotic disorder, suicidal ideations -Currently denies -Plan per psychiatry team. All other chronic issues below stable: Complex seizure disorder Hx of pyloric stenosis DISPOSITION: Thank you kindly for this consult. At this time, with all other medical issues aside from psychiatric illness being stable, will sign off. Please let us know if we can be of further assistance at any time. Vital Signs Vital Signs Date Time Temp Pulse Resp B/P (MAP) Pulse Ox O2 Delivery O2 Flow Rate FiO2 08/01/20 23:42 97.6 89 16 129/89 (102) 95 Room Air Laboratory Data Labs 24H Laboratory Tests 2 08/01/20 19:56: Nucleated Red Blood Cells % (auto) 0.0, Anion Gap 7L, Glomerular Filtration Rate > 60.0, Calcium Level 8.6, Total Bilirubin 0.1L, Direct Bilirubin < 0.1, Aspartate Amino Transf (AST/SGOT) 34, Alanine Aminotransferase (ALT/SGPT) 33, Alkaline Phosphatase 118H, Total Protein 7.1, Albumin 4.0, Albumin/Globulin Ratio 1.3, Thyroid Stimulating Hormone (TSH) 6.770H, Human Chorionic Gonadotropin, Qual NEGATIVE, Salicylates Level < 1.7L, Urine Opiates Screen NEGATIVE, Urine Methadone Screen NEGATIVE, Acetaminophen Level < 2.0L, Urine Barbiturates Screen NEGATIVE, Urine Phencyclidine Screen NEGATIVE, Urine Amphetamines Screen NEGATIVE, Urine Benzodiazepines Screen POSITIVEH, Urine Cocaine Metabolite Screen NEGATIVE, Urine Cannabinoids Screen NEGATIVE, Ethyl Alcohol Level < 0.003 08/01/20 22:20: Coronavirus (COVID-19)(PCR) NEGATIVE, Influenza Type A (RT-PCR) NEGATIVE, Influenza Type B (RT-PCR) NEGATIVE, Respiratory Syncytial Virus (PCR) NEGATIVE CBC/BMP Laboratory Tests 08/01/20 19:56 Home Medications Scheduled Atorvastatin Calcium (Lipitor) 20 Mg Tab, 20 MG PO DAILY Benztropine Mesylate (Benztropine Mesylate) 0.5 Mg Tablet, 0.5 MG PO BID Calcium Carbonate/Vitamin D3 (Calcium 600-Vit D3 200 Tablet) 1 Tab Tab, 1 TAB PO BID Clobazam (Clobazam) 10 Mg Tablet, 15 MG PO BID Ergocalciferol (Vitamin D2) (Vitamin D2) 50,000 Units Cap, 50,000 UNITS PO Q2WK EVERY OTHER THURSDAY Fluoxetine Hcl (Fluoxetine HCl) 40 Mg Capsule, 40 MG PO DAILY Levothyroxine Sodium (Levothyroxine Sodium) 25 Mcg Tab, 25 MCG PO DAILY Olanzapine (Zyprexa) 10 Mg Tablet, 10 MG PO QHS Polymyxin B Sulf/Trimethoprim (Polymyxin B-Tmp Eye Drops) 10 Ml Drops, 1 DROP OU QID Prazosin Hcl (Prazosin HCl) 1 Mg Capsule, 1 MG PO QHS Zonisamide (Zonisamide) 100 Mg Cap, 200 MG PO BID Scheduled PRN Albuterol Sulf (Albuterol Sulfate) 2.5 Mg/3 Ml Vial.neb, 2.5 MG INH QID PRN for SOB/WHEEZING Terbinafine HCl (Terbinafine) 30 Gm Cream..g., 1 APPLIC TOP BID PRN for FLARE UPS APPLY TO CHEST AND UPPER BACK Miscellaneous Medications [Patient Comment] MED REC COMPLETED VIA PREVIOUS DISCHARGE (07/29/20) AND PHONE CALL WITH PATIENT'S MOM Allergies Coded Allergies: Cephalosporins (Verified Allergy, Intermediate, HIVES, 03/28/20) cefaclor (Verified Allergy, Unknown, 07/12/19) lamotrigine (Verified Adverse Reaction, Severe, SJS, 07/12/19) A-FIB/CHADSVASC A-FIB History Current/History of A-Fib/PAF?: No Current PO Anticoag Therapy: No Age/Risk Factor Scoring CHADSVASC: CHADSVASC Response (Comments) Value Age Risk Factor Age < 65 years old 0 Gender Risk Factor Female 1 Hx of CHF No 0 Hx of HTN No 0 Hx of Stroke/TIA/or VTE No 0 Hx of Diabetes No 0 Hx of Vascular Disease No 0 Total 1 Treatment Treatment ordered: NONE Other anticoagulant ordered: none Sandra Mac MD Aug 02, 2020 11:57
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
[2020-08-02 18:53] VITALS: BP 97/54
[2020-08-02] MEDS: OLANZapine 10 MG TAB PO SCH (21:56)
[2020-08-02] MEDS: PRAZOSIN 1 MG CAP PO SCH (22:00)
[2020-08-03] MEDS: LEVOTHYROXINE 25MCG TABLET (0.025MG) PO SCH (05:59)
[2020-08-03 06:44] VITALS: BP 117/78
[2020-08-03] MEDS: ATORVASTATIN 20 MG TAB PO SCH (08:40)
[2020-08-03] MEDS: FLUoxetine 20 MG CAP PO SCH (08:40)
[2020-08-03] MEDS: POLYTRIM OPTH DROPS 10ML OU SCH ×4 (08:40→21:02)
[2020-08-03] MEDS: BENZTROPINE 0.5 MG TAB PO SCH ×2 (08:40→21:03)
[2020-08-03] MEDS: ZONISAMIDE 100 MG CAP (ZONEGRAN) PO SCH ×2 (08:40→21:03)
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
[2020-08-03] MEDS: OLANZapine 10 MG TAB PO SCH (21:03)
[2020-08-03] MEDS: PRAZOSIN 1 MG CAP PO SCH (21:04)
[2020-08-04] MEDS: LEVOTHYROXINE 25MCG TABLET (0.025MG) PO SCH (06:19)
[2020-08-04 07:35] VITALS: BP 109/57
[2020-08-04] MEDS: POLYTRIM OPTH DROPS 10ML OU SCH ×4 (08:45→20:38)
[2020-08-04] MEDS: FLUoxetine 20 MG CAP PO SCH (08:45)
[2020-08-04] MEDS: ATORVASTATIN 20 MG TAB PO SCH (08:45)
[2020-08-04] MEDS: ZONISAMIDE 100 MG CAP (ZONEGRAN) PO SCH ×2 (08:45→20:38)
[2020-08-04] MEDS: BENZTROPINE 0.5 MG TAB PO SCH ×2 (08:45→20:38)
--- NOTE | 2020-08-04 14:02 | MHIPNPDOC ---
[facility] Progress Note Progress Note DATE OF SERVICE: 08/04/20 HISTORY: 35-year-old female with chronic schizophrenia and intellectual disability stating the devil tells her to hurt herself and had explosive episode where she harmed herself. VITAL SIGNS: See below. NEW TEST RESULTS:. None. CURRENT MEDICATIONS: See below. MENTAL STATUS EXAMINATION: Patient is a 35-year old female, who is flat with poverty of speech. Speech: Is, poverty of speech. Language skills are, essentially intact. Thought processes including:. Hearing the devil. Thought content: As above. Abstract reasoning, and computation:, Poor. Descr iption of associations:, No loose associations. Description of abnormal or psychotic thoughts:. Auditory hallucinations, supposedly of the devil. Judgment:, Poor. Insight:, Poor. Orientation: 3. Recent and remote memory: Intact. Attention span and concentration: Intact. Language:. Poverty of speech. Fund of knowledge:, Poor. Mood: Euthymic. Affect:, Flat. DIAGNOSES: 1. Paranoid schizophrenia. 2., Intellectual disability. 3., None. ASSESSMENT: As above MANAGEMENT PLAN:, Will raise dose of Zyprexa. TIME SPENT: 30 minutes. Vital Signs Vital Signs Date Time Temp Pulse Resp B/P (MAP) Pulse Ox O2 Delivery O2 Flow Rate FiO2 08/04/20 07:35 97.7 65 18 109/57 (74) 95 Room Air Current Medications Current Medications Medications (Trade) Dose Ordered Sig/Jonathan Route PRN Reason Start Time Stop Time Status Last Admin Dose Admin Acetaminophen (Tylenol Tab) 650 mg Q6HP PRN PO HEADACHE or DISCOMFORT 08/01/20 21:55 Al Hydrox/Mg Hydrox/Simethicone (Mylanta) 30 ml Q4HP PRN PO HEARTBURN/INDIGESTION 08/01/20 21:55 Albuterol Sulfate (Proventil Neb) 2.5 mg QID PRN INH SOB/WHEEZING 08/01/20 23:15 Atorvastatin Calcium (Lipitor) 20 mg DAILY PO 08/02/20 09:00 08/04/20 08:45 Benztropine Mesylate (Cogentin) 0.5 mg BID PO 08/02/20 09:00 08/04/20 08:45 Clobazam (Onfi) 15 mg BID PO 08/02/20 09:00 08/04/20 08:44 Fluoxetine HCl (PROzac) 40 mg DAILY PO 08/02/20 09:00 08/04/20 08:45 Home Med (Med Rec Complete!) ASDIRECTED XX 08/01/20 23:10 08/01/20 23:12 DC Levothyroxine Sodium (Synthroid) 25 mcg DAILY@0600 PO 08/02/20 06:00 08/04/20 06:19 Magnesium Hydroxide (Milk Of Magnesia) 30 ml DAILYPRN PRN PO CONSTIPATION 08/01/20 21:55 Olanzapine (ZyPREXA) 10 mg QHS PO 08/02/20 21:00 08/03/20 21:03 Polymyxin/ Trimethoprim Sulfate (Polytrim Ophth Drops) 1 drop QID OU 08/02/20 09:00 08/04/20 13:24 Prazosin HCl (Minipress) 1 mg QHS PO 08/02/20 21:00 08/03/20 21:04 Trazodone HCl (Desyrel) 50 mg QHSP PRN PO INSOMNIA 08/01/20 21:55 Vitamin D (Drisdol) 50,000 units Q14D PO 08/05/20 09:00 Zonisamide (Zonegran) 200 mg BID PO 08/02/20 09:00 08/04/20 08:45 Allergies Coded Allergies: Cephalosporins (Verified Allergy, Intermediate, HIVES, 03/28/20) cefaclor (Verified Allergy, Unknown, 07/12/19) lamotrigine (Verified Adverse Reaction, Severe, SJS, 07/12/19) FREYA MOE MD Aug 04, 2020 14:02
[2020-08-04 19:13] VITALS: BP 116/62
[2020-08-04] MEDS: OLANZapine 5 MG TAB PO SCH (20:38)
[2020-08-04] MEDS: PRAZOSIN 1 MG CAP PO SCH (20:41)
[2020-08-05 06:00] VITALS: BP 101/58
[2020-08-05] MEDS: LEVOTHYROXINE 25MCG TABLET (0.025MG) PO SCH (06:24)
[2020-08-05] MEDS: POLYTRIM OPTH DROPS 10ML OU SCH ×4 (08:50→20:46)
[2020-08-05] MEDS: ATORVASTATIN 20 MG TAB PO SCH (08:53)
[2020-08-05] MEDS: BENZTROPINE 0.5 MG TAB PO SCH ×2 (08:53→20:46)
[2020-08-05] MEDS: VITAMIN D 50,000 UNITS CAPSULE (ERGOCALCIFEROL 1.25MG) PO SCH (08:53)
[2020-08-05] MEDS: FLUoxetine 20 MG CAP PO SCH (08:53)
[2020-08-05] MEDS: ZONISAMIDE 100 MG CAP (ZONEGRAN) PO SCH ×2 (08:54→20:44)
--- NOTE | 2020-08-05 13:12 | MHIPNPDOC ---
[facility] Progress Note Progress Note DATE OF SERVICE: 08/05/20 HISTORY: 35-year-old female with chronic schizophrenia saying the devil is still speaking to her, even here. VITAL SIGNS: See below. NEW TEST RESULTS:. No results. New. CURRENT MEDICATIONS: See below. MENTAL STATUS EXAMINATION: Patient is a 35-year old female, who is quite stiff with poverty of speech, poor eye contact and stiff movement. Speech: Is sparse Language skills are diminished. Thought processes including: Auditory hallucinations of the devil. Thought content: Auditory hallucinations. Abstract reasoning, and computation:. No apparent abstract reasoning. Description of associations:. No loose association. Description of abnormal or psychotic thoughts: Psychotic thought. As described. Judgment:, Poor. Insight:, Poor. Orientation: 3. Recent and remote memory:. Limited capacity. Attention span and concentration: Poor. Language:. As above. Fund of knowledge:, Limited. Mood: Euthymic. Affect:, Flat. DIAGNOSES: 1. Paranoid schizophrenia. 2. None. 3.. None. ASSESSMENT: As above MANAGEMENT PLAN:, I have witnessed this patient being violent , I have witnessed this patient avoiding groups, and then attending groups., And this point. Based on that. Consider. She is a significant management problem in whatever environment she is in TIME SPENT: 30 minutes. Vital Signs Vital Signs Date Time Temp Pulse Resp B/P (MAP) Pulse Ox O2 Delivery O2 Flow Rate FiO2 08/05/20 06:00 97.7 66 16 101/58 (72) 95 08/04/20 07:35 Room Air Current Medications Current Medications Medications (Trade) Dose Ordered Sig/Jonathan Route PRN Reason Start Time Stop Time Status Last Admin Dose Admin Acetaminophen (Tylenol Tab) 650 mg Q6HP PRN PO HEADACHE or DISCOMFORT 08/01/20 21:55 Al Hydrox/Mg Hydrox/Simethicone (Mylanta) 30 ml Q4HP PRN PO HEARTBURN/INDIGESTION 08/01/20 21:55 Albuterol Sulfate (Proventil Neb) 2.5 mg QID PRN INH SOB/WHEEZING 08/01/20 23:15 Atorvastatin Calcium (Lipitor) 20 mg DAILY PO 08/02/20 09:00 08/05/20 08:53 Benztropine Mesylate (Cogentin) 0.5 mg BID PO 08/02/20 09:00 08/05/20 08:53 Clobazam (Onfi) 15 mg BID PO 08/02/20 09:00 08/05/20 08:54 Fluoxetine HCl (PROzac) 40 mg DAILY PO 08/02/20 09:00 08/05/20 08:53 Home Med (Med Rec Complete!) ASDIRECTED XX 08/01/20 23:10 08/01/20 23:12 DC Levothyroxine Sodium (Synthroid) 25 mcg DAILY@0600 PO 08/02/20 06:00 08/05/20 06:24 Magnesium Hydroxide (Milk Of Magnesia) 30 ml DAILYPRN PRN PO CONSTIPATION 08/01/20 21:55 Olanzapine (ZyPREXA) 10 mg QHS PO 08/02/20 21:00 08/04/20 13:54 DC 08/03/20 21:03 Olanzapine (ZyPREXA) 15 mg QHS PO 08/04/20 21:00 08/04/20 20:38 Polymyxin/ Trimethoprim Sulfate (Polytrim Ophth Drops) 1 drop QID OU 08/02/20 09:00 08/05/20 12:00 Prazosin HCl (Minipress) 1 mg QHS PO 08/02/20 21:00 08/04/20 20:41 Trazodone HCl (Desyrel) 50 mg QHSP PRN PO INSOMNIA 08/01/20 21:55 Vitamin D (Drisdol) 50,000 units Q14D PO 08/05/20 09:00 08/05/20 08:53 Zonisamide (Zonegran) 200 mg BID PO 08/02/20 09:00 08/05/20 08:54 Allergies Coded Allergies: Cephalosporins (Verified Allergy, Intermediate, HIVES, 03/28/20) cefaclor (Verified Allergy, Unknown, 07/12/19) lamotrigine (Verified Adverse Reaction, Severe, SJS, 07/12/19) FREYA MOE MD Aug 05, 2020 13:12
--- NOTE | 2020-08-05 16:34 | EEG ---
ELECTROENCEPHALOGRAM DATE: 08/03/2020 DIAGNOSIS: Rule out seizures. EEG# [id number]. REFERRING PHYSICIAN: SAVANNAH RUBIN MD HISTORY: Patient is a 35-year-old woman with history of developmental delay, pituitary tumors, speech impairment, panic attacks, and complex partial seizure disorder who came to the emergency department. She has a history of psychotic disorder, schizophrenia, and depression. She is currently taking benztropine, atorvastatin, fluoxetine, olanzapine, prazosin, clobazam, zonisamide, etc. TECHNICAL DESCRIPTION: This digital EEG was recorded by 21-scalp, ear, and two EKG electrodes and was reviewed in bipolar and referential montages following reformatting in 10-20 international electrode placement system. INTERPRETATION: Patient was noted to be in awake and drowsy states during this EEG. Resting and awake background rhythm consisted of well-formed posterior dominant rhythm with anterior-posterior gradient comprising of 9 Hz alpha activity measuring 15-80 microvolts in amplitude, which was symmetric and reactive to eye opening. Attenuation of posterior dominant rhythm was seen during transition into drowsiness. Stage 1 and 2 sleep were reviewed and were symmetric bilaterally. Hyperventilation could not be performed. Photic stimulation remained unremarkable. EKG revealed normal sinus rhythm. No focal, lateralizing, or epileptiform abnormalities were seen. No relevant clinical activity was noted. CONCLUSION: This EEG in awake, drowsy states, stage 1 and 2 sleep is within normal limits.
[2020-08-05 18:06] VITALS: BP 105/58
[2020-08-05] MEDS: OLANZapine 5 MG TAB PO SCH (20:44)
[2020-08-05] MEDS: PRAZOSIN 1 MG CAP PO SCH (20:46)
[2020-08-06] MEDS: LEVOTHYROXINE 25MCG TABLET (0.025MG) PO SCH (05:55)
[2020-08-06 07:07] VITALS: BP 124/74
[2020-08-06] MEDS: POLYTRIM OPTH DROPS 10ML OU SCH ×4 (08:52→20:07)
[2020-08-06] MEDS: ZONISAMIDE 100 MG CAP (ZONEGRAN) PO SCH ×2 (08:52→20:08)
[2020-08-06] MEDS: ATORVASTATIN 20 MG TAB PO SCH (08:52)
[2020-08-06] MEDS: BENZTROPINE 0.5 MG TAB PO SCH ×2 (08:52→20:07)
[2020-08-06] MEDS: FLUoxetine 20 MG CAP PO SCH (08:52)
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
[2020-08-06 16:26] VITALS: BP 117/76
[2020-08-06] MEDS: OLANZapine 5 MG TAB PO SCH (20:07)
[2020-08-06] MEDS: PRAZOSIN 1 MG CAP PO SCH (20:08)
[2020-08-07] MEDS: LEVOTHYROXINE 25MCG TABLET (0.025MG) PO SCH (05:46)
[2020-08-07 06:40] VITALS: BP 103/51
[2020-08-07] MEDS: ZONISAMIDE 100 MG CAP (ZONEGRAN) PO SCH ×2 (08:57→20:22)
[2020-08-07] MEDS: BENZTROPINE 0.5 MG TAB PO SCH ×2 (08:57→20:22)
[2020-08-07] MEDS: POLYTRIM OPTH DROPS 10ML OU SCH ×4 (08:57→20:22)
[2020-08-07] MEDS: FLUoxetine 20 MG CAP PO SCH (08:57)
[2020-08-07] MEDS: ATORVASTATIN 20 MG TAB PO SCH (08:57)
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
[2020-08-07 16:49] VITALS: BP 104/58
[2020-08-07] MEDS: OLANZapine 5 MG TAB PO SCH (20:22)
[2020-08-07] MEDS: PRAZOSIN 1 MG CAP PO SCH (20:23)
[2020-08-08] MEDS: LEVOTHYROXINE 25MCG TABLET (0.025MG) PO SCH (05:53)
[2020-08-08 06:40] VITALS: BP 134/67
[2020-08-08] MEDS: ZONISAMIDE 100 MG CAP (ZONEGRAN) PO SCH ×2 (08:34→21:17)
[2020-08-08] MEDS: FLUoxetine 20 MG CAP PO SCH (08:34)
[2020-08-08] MEDS: ATORVASTATIN 20 MG TAB PO SCH (08:34)
[2020-08-08] MEDS: POLYTRIM OPTH DROPS 10ML OU SCH ×4 (08:35→21:18)
[2020-08-08] MEDS: BENZTROPINE 0.5 MG TAB PO SCH ×2 (08:35→21:18)
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
[2020-08-08 16:43] VITALS: BP 105/60
[2020-08-08] MEDS: PRAZOSIN 1 MG CAP PO SCH (21:18)
[2020-08-08] MEDS: OLANZapine 5 MG TAB PO SCH (21:18)
[2020-08-08] MEDS: traZODone 50 MG TAB PO PRN (22:29)
[2020-08-09] MEDS: LEVOTHYROXINE 25MCG TABLET (0.025MG) PO SCH (06:14)
[2020-08-09 06:15] VITALS: BP 124/77
[2020-08-09] MEDS: FLUoxetine 20 MG CAP PO SCH (08:14)
[2020-08-09] MEDS: BENZTROPINE 0.5 MG TAB PO SCH ×2 (08:15→20:44)
[2020-08-09] MEDS: ATORVASTATIN 20 MG TAB PO SCH (08:15)
[2020-08-09] MEDS: POLYTRIM OPTH DROPS 10ML OU SCH ×4 (08:15→20:44)
[2020-08-09] MEDS: ZONISAMIDE 100 MG CAP (ZONEGRAN) PO SCH ×2 (08:16→20:44)
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
[2020-08-09 18:48] VITALS: BP 123/74
[2020-08-09] MEDS: OLANZapine 5 MG TAB PO SCH (20:44)
[2020-08-09] MEDS: risperiDONE 2 MG TAB PO SCH (20:44)
[2020-08-09] MEDS: PRAZOSIN 1 MG CAP PO SCH (20:46)
[2020-08-10 06:00] VITALS: BP 113/70
[2020-08-10] MEDS: LEVOTHYROXINE 25MCG TABLET (0.025MG) PO SCH (06:18)
[2020-08-10] MEDS: POLYTRIM OPTH DROPS 10ML OU SCH ×4 (09:02→20:48)
[2020-08-10] MEDS: BENZTROPINE 0.5 MG TAB PO SCH ×2 (09:02→20:49)
[2020-08-10] MEDS: FLUoxetine 20 MG CAP PO SCH (09:02)
[2020-08-10] MEDS: ZONISAMIDE 100 MG CAP (ZONEGRAN) PO SCH ×2 (09:02→20:48)
[2020-08-10] MEDS: ATORVASTATIN 20 MG TAB PO SCH (09:02)
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
[2020-08-10 16:18] VITALS: BP 103/57
[2020-08-10] MEDS: PRAZOSIN 1 MG CAP PO SCH (20:49)
[2020-08-10] MEDS: OLANZapine 5 MG TAB PO SCH (20:49)
[2020-08-10] MEDS: risperiDONE 2 MG TAB PO SCH (20:49)
[2020-08-11] MEDS: LEVOTHYROXINE 25MCG TABLET (0.025MG) PO SCH (05:56)
[2020-08-11 06:20] VITALS: BP 132/88
[2020-08-11] MEDS: BENZTROPINE 0.5 MG TAB PO SCH ×2 (09:14→21:14)
[2020-08-11] MEDS: FLUoxetine 20 MG CAP PO SCH (09:14)
[2020-08-11] MEDS: ZONISAMIDE 100 MG CAP (ZONEGRAN) PO SCH ×2 (09:15→21:13)
[2020-08-11] MEDS: POLYTRIM OPTH DROPS 10ML OU SCH ×4 (09:15→21:13)
[2020-08-11] MEDS: ATORVASTATIN 20 MG TAB PO SCH (09:15)
[2020-08-11 16:10] VITALS: BP 115/66
[2020-08-11] MEDS: OLANZapine 5 MG TAB PO SCH (21:13)
[2020-08-11] MEDS: risperiDONE 2 MG TAB PO SCH (21:13)
[2020-08-11] MEDS: PRAZOSIN 1 MG CAP PO SCH (21:14)
[2020-08-12] MEDS: LEVOTHYROXINE 25MCG TABLET (0.025MG) PO SCH (05:55)
[2020-08-12 06:22] VITALS: BP 148/67
[2020-08-12] MEDS: POLYTRIM OPTH DROPS 10ML OU SCH ×4 (08:55→21:12)
[2020-08-12] MEDS: FLUoxetine 20 MG CAP PO SCH (08:56)
[2020-08-12] MEDS: ZONISAMIDE 100 MG CAP (ZONEGRAN) PO SCH ×2 (08:56→21:12)
[2020-08-12] MEDS: BENZTROPINE 0.5 MG TAB PO SCH ×2 (08:56→21:12)
[2020-08-12] MEDS: ATORVASTATIN 20 MG TAB PO SCH (08:56)
[2020-08-12 16:17] VITALS: BP 120/80
[2020-08-12] MEDS: PRAZOSIN 1 MG CAP PO SCH (21:12)
[2020-08-12] MEDS: OLANZapine 5 MG TAB PO SCH (21:12)
[2020-08-12] MEDS: risperiDONE 2 MG TAB PO SCH (21:12)
[2020-08-13] MEDS: LEVOTHYROXINE 25MCG TABLET (0.025MG) PO SCH (06:03)
[2020-08-13 06:31] VITALS: BP 117/58
[2020-08-13] MEDS: FLUoxetine 20 MG CAP PO SCH (09:05)
[2020-08-13] MEDS: BENZTROPINE 0.5 MG TAB PO SCH ×2 (09:05→21:13)
[2020-08-13] MEDS: ATORVASTATIN 20 MG TAB PO SCH (09:05)
[2020-08-13] MEDS: POLYTRIM OPTH DROPS 10ML OU SCH ×4 (09:06→21:14)
[2020-08-13] MEDS: ZONISAMIDE 100 MG CAP (ZONEGRAN) PO SCH ×2 (09:06→21:13)
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
[2020-08-13 18:00] VITALS: BP 151/72
[2020-08-13] MEDS: PRAZOSIN 1 MG CAP PO SCH (21:13)
[2020-08-13] MEDS: risperiDONE 2 MG TAB PO SCH (21:13)
[2020-08-13] MEDS: OLANZapine 5 MG TAB PO SCH (21:14)
[2020-08-13] MEDS: ACETAMINOPHEN TAB 650MG DOSE (2X325MG) PO PRN (21:15)
[2020-08-14] MEDS: LEVOTHYROXINE 25MCG TABLET (0.025MG) PO SCH (05:56)
[2020-08-14 06:40] VITALS: BP 124/66
[2020-08-14] MEDS: BENZTROPINE 0.5 MG TAB PO SCH ×2 (08:41→20:32)
[2020-08-14] MEDS: FLUoxetine 20 MG CAP PO SCH (08:41)
[2020-08-14] MEDS: ATORVASTATIN 20 MG TAB PO SCH (08:41)
[2020-08-14] MEDS: ZONISAMIDE 100 MG CAP (ZONEGRAN) PO SCH ×2 (08:41→20:35)
[2020-08-14] MEDS: POLYTRIM OPTH DROPS 10ML OU SCH ×4 (08:42→20:36)
[2020-08-14] MEDS ORDERED: HALOPERIDOL 5MG/ML VIAL (J1630 PER 1) IM STA (11:18)
[2020-08-14] MEDS ORDERED: LORazepam 2 MG/ML VIAL IM STA (11:18)
[2020-08-14] MEDS ORDERED: diphenhydrAMINE 50MG/ML VIAL (J1200) IM STA (11:18)
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
[2020-08-14] MEDS: OLANZapine 5 MG TAB PO SCH (20:32)
[2020-08-14] MEDS: PRAZOSIN 1 MG CAP PO SCH (20:35)
[2020-08-15] MEDS: LEVOTHYROXINE 25MCG TABLET (0.025MG) PO SCH (06:10)
[2020-08-15 06:46] VITALS: BP 110/63
[2020-08-15] MEDS: BENZTROPINE 0.5 MG TAB PO SCH ×2 (08:59→21:15)
[2020-08-15] MEDS: POLYTRIM OPTH DROPS 10ML OU SCH ×4 (09:00→21:15)
[2020-08-15] MEDS: ZONISAMIDE 100 MG CAP (ZONEGRAN) PO SCH ×2 (09:00→21:17)
[2020-08-15] MEDS: FLUoxetine 20 MG CAP PO SCH (09:00)
[2020-08-15] MEDS: ATORVASTATIN 20 MG TAB PO SCH (09:00)
[2020-08-15 17:32] VITALS: BP 112/69
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
[2020-08-15] MEDS: OLANZapine 5 MG TAB PO SCH (21:16)
[2020-08-15] MEDS: PRAZOSIN 1 MG CAP PO SCH (21:16)
[2020-08-16] MEDS: LEVOTHYROXINE 25MCG TABLET (0.025MG) PO SCH (05:47)
[2020-08-16 06:51] VITALS: BP 107/55
[2020-08-16] MEDS ORDERED: OLANZapine 2.5MG TABLET PO SCH (09:00)
[2020-08-16] MEDS: POLYTRIM OPTH DROPS 10ML OU SCH ×4 (09:57→20:19)
[2020-08-16] MEDS: ZONISAMIDE 100 MG CAP (ZONEGRAN) PO SCH ×2 (09:58→20:17)
[2020-08-16] MEDS: FLUoxetine 20 MG CAP PO SCH (09:58)
[2020-08-16] MEDS: BENZTROPINE 0.5 MG TAB PO SCH (09:58)
[2020-08-16] MEDS: ATORVASTATIN 20 MG TAB PO SCH (09:59)
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
[2020-08-16] MEDS ORDERED: PALIPERIDONE PALMITATE 234MG/1.5ML INJ (INVEGA)(FREE PSY INPT ONLY) IM ONE (18:00)
[2020-08-16 18:31] VITALS: BP 135/87
[2020-08-16] MEDS: BENZTROPINE 1 MG TAB PO SCH (20:17)
[2020-08-16] MEDS: PRAZOSIN 1 MG CAP PO SCH (20:19)
[2020-08-16] MEDS ORDERED: OLANZapine 5 MG TAB PO SCH (21:00)
[2020-08-16] MEDS: ACETAMINOPHEN TAB 650MG DOSE (2X325MG) PO PRN (23:21)
[2020-08-17] MEDS: LEVOTHYROXINE 25MCG TABLET (0.025MG) PO SCH (05:55)
[2020-08-17 06:26] VITALS: BP 99/64
[2020-08-17] MEDS: ATORVASTATIN 20 MG TAB PO SCH (08:29)
[2020-08-17] MEDS: ZONISAMIDE 100 MG CAP (ZONEGRAN) PO SCH ×2 (08:29→21:09)
[2020-08-17] MEDS: POLYTRIM OPTH DROPS 10ML OU SCH ×4 (08:29→21:10)
[2020-08-17] MEDS: BENZTROPINE 1 MG TAB PO SCH ×2 (08:29→21:09)
[2020-08-17] MEDS: FLUoxetine 20 MG CAP PO SCH (08:29)
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
[2020-08-17 16:47] VITALS: BP 119/59
[2020-08-17] MEDS: PRAZOSIN 1 MG CAP PO SCH (21:13)
[2020-08-18] MEDS: LEVOTHYROXINE 25MCG TABLET (0.025MG) PO SCH (05:58)
[2020-08-18 06:49] VITALS: BP 113/56
[2020-08-18] MEDS: POLYTRIM OPTH DROPS 10ML OU SCH ×4 (09:06→20:14)
[2020-08-18] MEDS: ZONISAMIDE 100 MG CAP (ZONEGRAN) PO SCH ×2 (09:06→20:16)
[2020-08-18] MEDS: ATORVASTATIN 20 MG TAB PO SCH (09:06)
[2020-08-18] MEDS: BENZTROPINE 1 MG TAB PO SCH ×2 (09:06→20:16)
[2020-08-18] MEDS: FLUoxetine 20 MG CAP PO SCH (09:07)
[2020-08-18 18:37] VITALS: BP 134/78
[2020-08-18] MEDS: traZODone 50 MG TAB PO PRN (20:16)
[2020-08-18] MEDS: PRAZOSIN 1 MG CAP PO SCH (20:17)
[2020-08-19] MEDS: LEVOTHYROXINE 25MCG TABLET (0.025MG) PO SCH (06:11)
[2020-08-19 06:40] VITALS: BP 123/68
[2020-08-19] MEDS: POLYTRIM OPTH DROPS 10ML OU SCH ×4 (08:44→20:38)
[2020-08-19] MEDS: ZONISAMIDE 100 MG CAP (ZONEGRAN) PO SCH ×2 (08:44→20:38)
[2020-08-19] MEDS: BENZTROPINE 1 MG TAB PO SCH ×2 (08:44→20:39)
[2020-08-19] MEDS: ATORVASTATIN 20 MG TAB PO SCH (08:44)
[2020-08-19] MEDS: VITAMIN D 50,000 UNITS CAPSULE (ERGOCALCIFEROL 1.25MG) PO SCH (08:44)
[2020-08-19] MEDS: FLUoxetine 20 MG CAP PO SCH (08:44)
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
[2020-08-19 17:32] VITALS: BP 108/68
[2020-08-19] MEDS ORDERED: PALIPERIDONE PALMITATE 156MG/1ML INJ(INVEGA)(FREE PSY INPT ONLY) IM ONE (18:00)
[2020-08-19] MEDS: PRAZOSIN 1 MG CAP PO SCH (20:39)
[2020-08-20] MEDS: LEVOTHYROXINE 25MCG TABLET (0.025MG) PO SCH (05:59)
[2020-08-20 06:39] VITALS: BP 105/64
[2020-08-20] MEDS: POLYTRIM OPTH DROPS 10ML OU SCH ×4 (08:40→20:34)
[2020-08-20] MEDS: BENZTROPINE 1 MG TAB PO SCH ×2 (08:40→20:34)
[2020-08-20] MEDS: ATORVASTATIN 20 MG TAB PO SCH (08:40)
[2020-08-20] MEDS: FLUoxetine 20 MG CAP PO SCH (08:41)
[2020-08-20] MEDS: ZONISAMIDE 100 MG CAP (ZONEGRAN) PO SCH ×2 (08:41→20:34)
[2020-08-20] MEDS ORDERED: PALIPERIDONE PALMITATE 156MG/1ML INJ(INVEGA)(FREE PSY INPT ONLY) IM ONE ×2 (09:00)
[2020-08-20 16:41] VITALS: BP 106/60
[2020-08-20] MEDS: PRAZOSIN 1 MG CAP PO SCH (20:34)
[2020-08-21] MEDS: LEVOTHYROXINE 25MCG TABLET (0.025MG) PO SCH (06:00)
[2020-08-21 06:37] VITALS: BP 89/51
[2020-08-21] MEDS: BENZTROPINE 1 MG TAB PO SCH ×2 (08:41→21:13)
[2020-08-21] MEDS: ATORVASTATIN 20 MG TAB PO SCH (08:41)
[2020-08-21] MEDS: ZONISAMIDE 100 MG CAP (ZONEGRAN) PO SCH ×2 (08:41→21:12)
[2020-08-21] MEDS: POLYTRIM OPTH DROPS 10ML OU SCH ×4 (08:42→21:13)
[2020-08-21] MEDS: FLUoxetine 20 MG CAP PO SCH (08:42)
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
[2020-08-21 16:37] VITALS: BP 120/79
[2020-08-21] MEDS: ACETAMINOPHEN TAB 650MG DOSE (2X325MG) PO PRN (18:19)
[2020-08-21] MEDS: traZODone 50 MG TAB PO PRN (21:12)
[2020-08-21] MEDS: PRAZOSIN 1 MG CAP PO SCH (21:13)
[2020-08-22] MEDS: LEVOTHYROXINE 25MCG TABLET (0.025MG) PO SCH (06:03)
[2020-08-22 06:52] VITALS: BP 94/52
[2020-08-22] MEDS: POLYTRIM OPTH DROPS 10ML OU SCH ×4 (07:51→20:44)
[2020-08-22] MEDS: BENZTROPINE 1 MG TAB PO SCH ×2 (08:29→20:42)
[2020-08-22] MEDS: ATORVASTATIN 20 MG TAB PO SCH (08:29)
[2020-08-22] MEDS: ZONISAMIDE 100 MG CAP (ZONEGRAN) PO SCH ×2 (08:30→20:41)
[2020-08-22] MEDS: FLUoxetine 20 MG CAP PO SCH (08:30)
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
[2020-08-22] MEDS ORDERED: PALIPERIDONE PALMITATE 156MG/1ML INJ(INVEGA)(FREE PSY INPT ONLY) IM ONE (11:00)
[2020-08-22 16:28] VITALS: BP 98/56
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
[2020-08-22] MEDS: PRAZOSIN 1 MG CAP PO SCH (20:42)
[2020-08-23] MEDS: LEVOTHYROXINE 25MCG TABLET (0.025MG) PO SCH (05:30)
[2020-08-23 06:45] VITALS: BP 122/61
[2020-08-23] MEDS: ZONISAMIDE 100 MG CAP (ZONEGRAN) PO SCH ×2 (08:41→21:15)
[2020-08-23] MEDS: BENZTROPINE 1 MG TAB PO SCH ×2 (08:41→21:16)
[2020-08-23] MEDS: POLYTRIM OPTH DROPS 10ML OU SCH ×4 (08:41→21:16)
[2020-08-23] MEDS: ATORVASTATIN 20 MG TAB PO SCH (08:41)
[2020-08-23] MEDS: FLUoxetine 20 MG CAP PO SCH (08:41)
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
[2020-08-23 16:18] VITALS: BP 123/76
[2020-08-23] MEDS: traZODone 50 MG TAB PO PRN (21:15)
[2020-08-23] MEDS: PRAZOSIN 1 MG CAP PO SCH (21:16)
[2020-08-24] MEDS: LEVOTHYROXINE 25MCG TABLET (0.025MG) PO SCH (05:56)
[2020-08-24 06:00] VITALS: BP 131/68
[2020-08-24] MEDS: FLUoxetine 20 MG CAP PO SCH (08:30)
[2020-08-24] MEDS: ZONISAMIDE 100 MG CAP (ZONEGRAN) PO SCH ×2 (08:33→20:46)
[2020-08-24] MEDS: BENZTROPINE 1 MG TAB PO SCH ×2 (08:34→20:47)
[2020-08-24] MEDS: POLYTRIM OPTH DROPS 10ML OU SCH ×4 (08:34→20:47)
[2020-08-24] MEDS: ATORVASTATIN 20 MG TAB PO SCH (08:34)
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
[2020-08-24] MEDS: hydrOXYzine 50 MG TAB PO PRN (11:20)
[2020-08-24 16:16] VITALS: BP 123/70
[2020-08-24] MEDS: PRAZOSIN 1 MG CAP PO SCH (20:46)
[2020-08-25] MEDS: LEVOTHYROXINE 25MCG TABLET (0.025MG) PO SCH (06:14)
[2020-08-25 06:28] VITALS: BP 111/60
[2020-08-25] MEDS: FLUoxetine 20 MG CAP PO SCH (08:34)
[2020-08-25] MEDS: ATORVASTATIN 20 MG TAB PO SCH (08:34)
[2020-08-25] MEDS: BENZTROPINE 1 MG TAB PO SCH ×2 (08:34→21:14)
[2020-08-25] MEDS: ZONISAMIDE 100 MG CAP (ZONEGRAN) PO SCH ×2 (08:34→21:09)
[2020-08-25] MEDS: POLYTRIM OPTH DROPS 10ML OU SCH ×4 (08:34→21:11)
[2020-08-25] MEDS: ACETAMINOPHEN TAB 650MG DOSE (2X325MG) PO PRN (08:36)
[2020-08-25 16:24] VITALS: BP 126/71
[2020-08-25] MEDS: PRAZOSIN 1 MG CAP PO SCH (21:09)
[2020-08-26] MEDS: LEVOTHYROXINE 25MCG TABLET (0.025MG) PO SCH (06:20)
[2020-08-26 06:28] VITALS: BP 119/63
[2020-08-26] MEDS: ATORVASTATIN 20 MG TAB PO SCH (09:33)
[2020-08-26] MEDS: POLYTRIM OPTH DROPS 10ML OU SCH ×4 (09:33→21:10)
[2020-08-26] MEDS: ZONISAMIDE 100 MG CAP (ZONEGRAN) PO SCH ×2 (09:34→21:10)
[2020-08-26] MEDS: BENZTROPINE 1 MG TAB PO SCH ×2 (09:34→21:10)
[2020-08-26] MEDS: FLUoxetine 20 MG CAP PO SCH (09:34)
[2020-08-26 16:33] VITALS: BP 101/57
[2020-08-26] MEDS: PRAZOSIN 1 MG CAP PO SCH (21:10)
[2020-08-27] MEDS: LEVOTHYROXINE 25MCG TABLET (0.025MG) PO SCH (05:53)
[2020-08-27 06:00] VITALS: BP 107/59
[2020-08-27] MEDS: ZONISAMIDE 100 MG CAP (ZONEGRAN) PO SCH ×2 (08:47→21:17)
[2020-08-27] MEDS: FLUoxetine 20 MG CAP PO SCH (08:48)
[2020-08-27] MEDS: BENZTROPINE 1 MG TAB PO SCH ×2 (08:48→21:20)
[2020-08-27] MEDS: ATORVASTATIN 20 MG TAB PO SCH (08:48)
[2020-08-27] MEDS: POLYTRIM OPTH DROPS 10ML OU SCH ×4 (09:06→21:17)
--- NOTE | 2020-08-27 15:18 | MHIPNPDOC ---
[facility] Progress Note Progress Note DATE OF SERVICE: 08/27/20 Patient is a 35 -year-old Single, Intellectually Disabled, Domiciled , female, who returns to the hospital who reports that she command hallucinations to cut her wrists. Patient is slow in her responses but this is her baseline. She reports that she is having command hallucinations to cut herself, points to her wrist where she may have cut herself, but there is no visible laceration. Lab Results: See Prolactin Level results VITAL SIGNS: See below. CURRENT MEDICATIONS: See below. MENTAL STATUS EXAMINATION: Patient is a 35 -year-old Single, Intellectually Disabled, Domiciled , female, who returns to the hospital who reports that she command hallucinations to hurt herself, kill her family. General Appearance: appears stated age, hospital scrubs/clothing, improved hygiene and grooming, hair is well-kempt Build: overweight Demeanor: average Eye Contact: intermittent Activity: self- engaged Behavior: cooperative Speech: slow (baseline), impoverished at times Mood: "depressed" Affect: flat/blunted (baseline) Thought Process: logical/linear, patient is intellectually disabled Thought Content (Delusions): reports auditory and visual hallucinations - "the devil" Thought Content (Other): reports visual hallucinations Thought Content (Aggressive): None today Perception (Hallucinations): auditory Perception (Other): none reported Cognition (Impairment of): attention/concentration (intellectual disability) Cognition(Intelligence Est.): below average Oriented: Awake, Alert, Oriented times three Insight: impaired Judgment: impaired Psychosis: hearing voices DIAGNOSES: Schizophrenia Intellectual Disability ASSESSMENT: According to staff patient is requesting her mother to speak to a peer on the phone. Reports are that patient's mother has invited the peer to stay with the patient in her apartment. Call to patient's mother to request that she not communicate with peer as it is a conflict of interest and a confidential/HIPAA violation. Mother states that her daughter is handing the phone to the peer and that she is requesting her mother to speak to the peer. She vehemently denied that she is encouraging the communication. Call to Neurology Dr. Wilkins who states that there is not medical necessity to repeat MRI or consult as the last MRI was done in February 2020, next scheduled assessment will be in February 2021. 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 Patient states in today's interview that she continues to have auditory and visual hallucinations. Reinforced with her mother that there is no indication that she is experiencing the visual or auditory hallucinations as she is not responding to either in a way in observations by staff. Patient only reports that she has hallucinations when asked how she is doing. She states that she sees and hears the devil and that this is a command voice telling her to harm herself and her family. States "the devil tells me to kill my family." When asked about how she will be if she is from her family if she is transferred or how she will feel if she could not see her family because she is homicidal she stood up and stated, "You don't understand, I am sick! The devil tells me to kill them!" MANAGEMENT PLAN: continue all medications. Repeat Prolactin Level. Will continue to monitor. TIME SPENT: 40 minutes Vital Signs Vital Signs Date Time Temp Pulse Resp B/P (MAP) Pulse Ox O2 Delivery O2 Flow Rate FiO2 08/27/20 06:00 98.2 90 20 107/59 (75) 95 08/26/20 16:33 Room Air Current Medications Current Medications Medications (Trade) Dose Ordered Sig/Jonathan Route PRN Reason Start Time Stop Time Status Last Admin Dose Admin Acetaminophen (Tylenol Tab) 650 mg Q6HP PRN PO HEADACHE or DISCOMFORT 08/01/20 21:55 08/25/20 08:36 Al Hydrox/Mg Hydrox/Simethicone (Mylanta) 30 ml Q4HP PRN PO HEARTBURN/INDIGESTION 08/01/20 21:55 Albuterol Sulfate (Proventil Neb) 2.5 mg QID PRN INH SOB/WHEEZING 08/01/20 23:15 Atorvastatin Calcium (Lipitor) 20 mg DAILY PO 08/02/20 09:00 08/27/20 08:48 Benztropine Mesylate (Cogentin) 0.5 mg BID PO 08/02/20 09:00 08/16/20 14:56 DC 08/16/20 09:58 Benztropine Mesylate (Cogentin) 1 mg BID PO 08/16/20 21:00 08/27/20 08:48 Clobazam (Onfi) 15 mg BID PO 08/02/20 09:00 08/27/20 08:48 Diphenhydramine HCl (Benadryl) 50 mg STAT STAT IM 08/14/20 11:18 08/14/20 11:21 DC 08/14/20 11:26 Fluoxetine HCl (PROzac) 40 mg DAILY PO 08/02/20 09:00 08/16/20 09:41 DC 08/15/20 09:00 Fluoxetine HCl (PROzac) 60 mg DAILY PO 08/16/20 09:00 08/27/20 08:48 Haloperidol (Haldol) 10 mg STAT STAT IM 08/14/20 11:18 08/14/20 11:21 DC 08/14/20 11:26 Home Med (Med Rec Complete!) ASDIRECTED XX 08/01/20 23:10 08/01/20 23:12 DC Hydroxyzine HCl (Atarax) 50 mg Q6HP PRN PO ANXIETY 08/24/20 11:05 08/24/20 11:20 Levothyroxine Sodium (Synthroid) 25 mcg DAILY@0600 PO 08/02/20 06:00 08/27/20 05:53 Lorazepam (Ativan) 2 mg STAT STAT IM 08/14/20 11:18 08/14/20 11:21 DC 08/14/20 11:26 Magnesium Hydroxide (Milk Of Magnesia) 30 ml DAILYPRN PRN PO CONSTIPATION 08/01/20 21:55 Miscellaneous (Unresolved Clarification Entry) SEE LABEL COMMENTS DAILY XX 08/16/20 09:00 08/20/20 07:29 DC Miscellaneous (Unresolved Clarification Entry) SEE LABEL COMMENTS DAILY XX 08/23/20 09:00 08/23/20 13:29 DC Olanzapine (ZyPREXA) 2.5 mg DAILY PO 08/16/20 09:00 08/16/20 11:31 DC 08/16/20 09:58 Olanzapine (ZyPREXA) 10 mg QHS PO 08/02/20 21:00 08/04/20 13:54 DC 08/03/20 21:03 Olanzapine (ZyPREXA) 15 mg QHS PO 08/04/20 21:00 08/16/20 09:32 DC 08/15/20 21:16 Olanzapine (ZyPREXA) 15 mg QHS PO 08/16/20 21:00 08/16/20 14:56 DC Polymyxin/ Trimethoprim Sulfate (Polytrim Ophth Drops) 1 drop QID OU 08/02/20 09:00 08/27/20 12:21 Prazosin HCl (Minipress) 1 mg QHS PO 08/02/20 21:00 08/26/20 21:10 Risperidone (RisperDAL) 2 mg QHS PO 08/09/20 21:00 08/14/20 14:26 DC 08/13/20 21:13 Trazodone HCl (Desyrel) 50 mg QHSP PRN PO INSOMNIA 08/01/20 21:55 08/23/20 21:15 Vitamin D (Drisdol) 50,000 units Q14D PO 08/05/20 09:00 08/19/20 08:44 Zonisamide (Zonegran) 200 mg BID PO 08/02/20 09:00 08/27/20 08:47 Allergies Coded Allergies: Cephalosporins (Verified Allergy, Intermediate, HIVES, 03/28/20) cefaclor (Verified Allergy, Unknown, 07/12/19) lamotrigine (Verified Adverse Reaction, Severe, SJS, 07/12/19) CHANELLE DENNISON [employer] Aug 27, 2020 15:18
[2020-08-27 18:57] VITALS: BP 136/77
[2020-08-27] MEDS: PRAZOSIN 1 MG CAP PO SCH (21:19)
[2020-08-28] MEDS: LEVOTHYROXINE 25MCG TABLET (0.025MG) PO SCH (06:07)
[2020-08-28 07:14] VITALS: BP 112/75
[2020-08-28] MEDS: FLUoxetine 20 MG CAP PO SCH (08:19)
[2020-08-28] MEDS: BENZTROPINE 1 MG TAB PO SCH ×2 (08:20→21:06)
[2020-08-28] MEDS: ATORVASTATIN 20 MG TAB PO SCH (08:20)
[2020-08-28] MEDS: ZONISAMIDE 100 MG CAP (ZONEGRAN) PO SCH ×2 (08:20→21:06)
[2020-08-28] MEDS: POLYTRIM OPTH DROPS 10ML OU SCH ×2 (08:21→13:00)
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
[2020-08-28 18:11] VITALS: BP 118/65
[2020-08-28] MEDS: PRAZOSIN 1 MG CAP PO SCH (21:06)
[2020-08-29 06:00] VITALS: BP 116/74
[2020-08-29] MEDS: LEVOTHYROXINE 25MCG TABLET (0.025MG) PO SCH (06:00)
[2020-08-29] MEDS: **PENDING PPD ENTRY XX SCH (09:00)
[2020-08-29] MEDS: BENZTROPINE 1 MG TAB PO SCH ×2 (09:09→20:52)
[2020-08-29] MEDS: ATORVASTATIN 20 MG TAB PO SCH (09:10)
[2020-08-29] MEDS: ZONISAMIDE 100 MG CAP (ZONEGRAN) PO SCH ×2 (09:11→20:53)
[2020-08-29] MEDS: FLUoxetine 20 MG CAP PO SCH (09:11)
[2020-08-29] MEDS ORDERED: TUBERCULIN PPD 5 UNITS/0.1 ML ID ONE (13:00)
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
[2020-08-29 18:04] VITALS: BP 145/98
[2020-08-29 18:06] VITALS: BP 106/60
[2020-08-29] MEDS: PRAZOSIN 1 MG CAP PO SCH (20:52)
[2020-08-30] MEDS: LEVOTHYROXINE 25MCG TABLET (0.025MG) PO SCH (06:09)
[2020-08-30 06:39] VITALS: BP 104/80
[2020-08-30] MEDS: BENZTROPINE 1 MG TAB PO SCH ×2 (08:14→21:07)
[2020-08-30] MEDS: FLUoxetine 20 MG CAP PO SCH (08:15)
[2020-08-30] MEDS: ATORVASTATIN 20 MG TAB PO SCH (08:16)
[2020-08-30] MEDS: ZONISAMIDE 100 MG CAP (ZONEGRAN) PO SCH ×2 (08:16→21:05)
[2020-08-30] MEDS: **PENDING PPD ENTRY XX SCH (09:00)
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
[2020-08-30 16:30] VITALS: BP 113/70
[2020-08-30] MEDS ORDERED: PILL CUTTER 1 EACH XX PRN (17:40)
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
[2020-08-30] MEDS: hydrOXYzine 50 MG TAB PO PRN (18:16)
[2020-08-30] MEDS: BROMOCRIPTINE MESYLATE 2.5 MG TAB PO SCH (21:05)
[2020-08-30] MEDS: PRAZOSIN 1 MG CAP PO SCH (21:07)
--- NOTE | 2020-08-30 23:11 | REPVR ---
PROCEDURE INFORMATION: Exam: MR Head Without Contrast Exam date and time: 08/30/2020 10:27 PM Age: 35 years old Clinical indication: Altered mental status/memory loss; Other: Psychosis; Additional info: Rule out tumor TECHNIQUE: Imaging protocol: MR of the head without contrast. COMPARISON: 1. CT Head without contrast 2020-07-28 10:[address] Head without contrast 2019-06-07 14:31 FINDINGS: Brain: Normal brain volume. No diffusion restriction to suggest acute ischemia or infarct. No abnormal FLAIR parenchymal signal hyperintensities. No gradient susceptibility blooming within the brain parenchyma to suggest hemorrhage. No midline shift, mass, or fluid collection is present. The brainstem, posterior fossa and cervical medullary junction are preserved. Cerebral ventricles: Normal. No ventriculomegaly. Bones/joints: Unremarkable. Paranasal sinuses: Normal as visualized. No acute sinusitis. Mastoid air cells: Normal as visualized. No mastoid effusion. Orbital cavity: Unremarkable. Soft tissues: Unremarkable. IMPRESSION: Normal brain MR. Electronically signed by: Ang Giron On 08/30/2020 23:11:56 PM
[2020-08-31] VITALS (8 sets, daily range): BP systolic 106–124; BP diastolic 59–78
[2020-08-31] MEDS: LEVOTHYROXINE 25MCG TABLET (0.025MG) PO SCH (06:22)
[2020-08-31] MEDS: BROMOCRIPTINE MESYLATE 2.5 MG TAB PO SCH ×2 (08:28→20:26)
[2020-08-31] MEDS: BENZTROPINE 1 MG TAB PO SCH (08:30)
[2020-08-31] MEDS: ZONISAMIDE 100 MG CAP (ZONEGRAN) PO SCH ×2 (08:30→20:26)
[2020-08-31] MEDS: FLUoxetine 20 MG CAP PO SCH (08:30)
[2020-08-31] MEDS: ATORVASTATIN 20 MG TAB PO SCH (08:30)
[2020-08-31] MEDS ORDERED: TUBERCULIN PPD 5 UNITS/0.1 ML ID ONE (09:00)
[2020-08-31] MEDS ORDERED: PPD DOCUMENTATION ENTRY MISC XX SCH (10:00)
[2020-08-31] MEDS ORDERED: LORazepam 2 MG/ML VIAL IM STA (15:04)
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
[2020-08-31] MEDS ORDERED: diphenhydrAMINE 50MG/ML VIAL (J1200) IM STA (17:29)
[2020-08-31] MEDS ORDERED: HALOPERIDOL 5MG/ML VIAL (J1630 PER 1) IM STA (17:29)
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
[2020-08-31] MEDS: PRAZOSIN 1 MG CAP PO SCH (20:28)
[2020-09-01] MEDS: LEVOTHYROXINE 25MCG TABLET (0.025MG) PO SCH (06:06)
[2020-09-01 08:04] VITALS: BP 12/57
[2020-09-01] MEDS: BENZTROPINE 1 MG TAB PO SCH (08:28)
[2020-09-01] MEDS: BROMOCRIPTINE MESYLATE 2.5 MG TAB PO SCH ×2 (08:29→20:12)
[2020-09-01] MEDS: ATORVASTATIN 20 MG TAB PO SCH (08:29)
[2020-09-01] MEDS: FLUoxetine 20 MG CAP PO SCH (08:29)
[2020-09-01] MEDS: ZONISAMIDE 100 MG CAP (ZONEGRAN) PO SCH ×2 (08:29→20:12)
[2020-09-01 16:56] VITALS: BP 123/77
[2020-09-01] MEDS: PRAZOSIN 1 MG CAP PO SCH (20:12)
[2020-09-02 06:00] VITALS: BP 126/63
[2020-09-02] MEDS: LEVOTHYROXINE 25MCG TABLET (0.025MG) PO SCH (06:07)
[2020-09-02] MEDS: BROMOCRIPTINE MESYLATE 2.5 MG TAB PO SCH ×2 (08:29→20:30)
[2020-09-02] MEDS: VITAMIN D 50,000 UNITS CAPSULE (ERGOCALCIFEROL 1.25MG) PO SCH (08:29)
[2020-09-02] MEDS: FLUoxetine 20 MG CAP PO SCH (08:30)
[2020-09-02] MEDS: ZONISAMIDE 100 MG CAP (ZONEGRAN) PO SCH ×2 (08:30→20:30)
[2020-09-02] MEDS: ATORVASTATIN 20 MG TAB PO SCH (08:30)
[2020-09-02] MEDS: BENZTROPINE 1 MG TAB PO SCH (08:30)
[2020-09-02] MEDS ORDERED: PPD DOCUMENTATION ENTRY MISC XX ONE (09:00)
[2020-09-02] MEDS ORDERED: diphenhydrAMINE 50MG/ML VIAL (J1200) IM STA (18:14)
[2020-09-02] MEDS ORDERED: HALOPERIDOL 5MG/ML VIAL (J1630 PER 1) IM STA (18:14)
[2020-09-02] MEDS ORDERED: LORazepam 2 MG/ML VIAL IM STA (18:14)
--- NOTE | 2020-09-02 19:10 | IPNPDOC ---
Text Note Date of Service The patient was seen on 09/02/20. NOTE PSYCH CERTIFICATION FACE TO FACE: yes PHYSICIAN ASSESSMENT: The patient was agitated, violent towards staff and not following verbal instructions VITALS GEN: irritable / yelling REASON FOR RESTRAINT: The patient was a danger to the staff. DE-ESCALATION INTERVENTIONS ATTEMPTED BEFORE USE OF RESTRAINTS: verbal redirection [MECHANICAL AND/OR CHEMICAL] RESTRAINTS USED: Both LENGTH OF TIME ORDERED IN RESTRAINTS: 4 hours WHEN TO DISCONTINUE RESTRAINTS: When the patient is no longer a threat to to herself or others Post evaluation of restraint due in 24 hours. VS,Fishbone, I+O VS, Fishbone, I+O Vital Signs Date Time Temp Pulse Resp B/P (MAP) Pulse Ox O2 Delivery O2 Flow Rate FiO2 09/02/20 19:00 16 09/02/20 06:00 98.2 78 126/63 (84) 98 09/01/20 08:04 Room Air YVONNE VALENTE MD Sep 02, 2020 19:10
[2020-09-02 19:30] VITALS: BP 124/82
[2020-09-02 20:29] VITALS: BP 120/68
[2020-09-02] MEDS: PRAZOSIN 1 MG CAP PO SCH (20:29)
[2020-09-02] MEDS: traZODone 50 MG TAB PO PRN (20:29)
[2020-09-03] MEDS: LEVOTHYROXINE 25MCG TABLET (0.025MG) PO SCH (06:06)
[2020-09-03 06:40] VITALS: BP 114/56
[2020-09-03] MEDS: BROMOCRIPTINE MESYLATE 2.5 MG TAB PO SCH (08:24)
[2020-09-03] MEDS: ZONISAMIDE 100 MG CAP (ZONEGRAN) PO SCH (08:25)
[2020-09-03] MEDS: BENZTROPINE 1 MG TAB PO SCH (08:25)
[2020-09-03] MEDS: ATORVASTATIN 20 MG TAB PO SCH (08:25)
[2020-09-03] MEDS: FLUoxetine 20 MG CAP PO SCH (08:25)
[2020-09-03] MEDS ORDERED: BROM2.5T2 PO (12:51)
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
== END 2020-09-03 14:30 | disposition home or self-care (01) | DRG 885 ==
LOC: M ED 18:47 → M ED INP 18:48 → M PSY 23:29
PROVIDERS: ADMIT Psychiatry & Neurology Psychiatry; ATTEND Psychiatry & Neurology Psychiatry
DX: F20.9 Schizophrenia, unspecified (principal); R45.851 Suicidal ideations; F70 Mild intellectual disabilities; R45.850 Homicidal ideations; Z79.899 Other long term (current) drug therapy; Z88.8 Allergy status to other drugs, medicaments and biological substances; G40.909 Epilepsy, unspecified, not intractable, without status epilepticus; F41.9 Anxiety disorder, unspecified; E03.9 Hypothyroidism, unspecified; H10.9 Unspecified conjunctivitis

== ENCOUNTER → 2020-09-18 | Outpatient (REF) | payer MEDICARE, MEDICAID ==
[~2020-09-18] MED LIST changes: +BROM2.5T2 PO; +PATIENT COMMENT
[2020-09-18 17:42] LABS: AMORPHOUS SEDIMENT MODERATE (NEGATIVE); APPEARANCE, URINE TURBID (CLEAR); BACTERIA, URINE AUTO 1+ (NEGATIVE); BILIRUBIN, URINE AUTO NEGATIVE (NEGATIVE); BLOOD, URINE BLOOD NEGATIVE (NEGATIVE); COLOR, URINE YELLOW (YELLOW); GLUCOSE, URINE (UA) AUTO NEGATIVE (NEGATIVE); KETONE, URINE AUTO NEGATIVE (NEGATIVE); LEUKOCYTE ESTERASE, URINE AUTO 3+ (NEGATIVE); NITRITE, URINE AUTO NEGATIVE (NEGATIVE); PROTEIN, URINE AUTO 1+ mg/dL (NEGATIVE); RBC, URINE AUTO 0 /HPF (0-3); SPECIFIC GRAVITY URINE AUTO 1.023 (1.002-1.035); SQUAMOUS EPITHELIAL CELL UR AU 49 /HPF (0-6); WBC, URINE AUTO 32 /HPF (0-3)
== END ==
LOC: M SFHCPLAZ 13:03
PROVIDERS: ATTEND Physician Assistant
DX: R32 Unspecified urinary incontinence (principal); H57.89 Other specified disorders of eye and adnexa
CPT/HCPCS: 81001; 81002; 87070; 87077; 87081; 87086; 87110; 87186; G0463

== ENCOUNTER 2020-10-28 19:56 | Emergency (ER) | payer MEDICARE ==
[~2020-10-28 19:56] MED LIST changes: +ATOR1TAB21 PO; +AZEL0.05 OU; +CALC1CAP34 PO; +ERGO500029 PO; +ERYTGEL TOP; +FLUO60TA PO; +OLAN15TA PO; +ONFI10TA PO; +PROZ20CA11 PO; +PROZ40CA PO
[2020-10-28 22:10] LABS: HEMATOCRIT 39.4 % (36.0-47.0); HEMOGLOBIN 12.3 g/dl (12.0-15.5); MEAN CORPUSCULAR HGB CONC 31.2 g/dl (32.0-36.5); MEAN CORPUSCULAR VOLUME 92.9 fl (80.0-96.0); PLATELET COUNT, AUTOMATED 243 10^3/uL (150-450); RED BLOOD COUNT 4.24 10^6/uL (4.00-5.40); WHITE BLOOD COUNT 9.3 10^3/uL (4.0-10.0)
[2020-10-28 22:36] LABS: AMPHETAMINES LEVEL URINE NEGATIVE (NEGATIVE); BARBITURATES URINE NEGATIVE (NEGATIVE); BENZODIAZEPINES URINE POSITIVE (NEGATIVE); CANNABINOIDS URINE NEGATIVE (NEGATIVE); COCAINE METABOLITE URINE NEGATIVE (NEGATIVE); METHADONE URINE NEGATIVE (NEGATIVE); OPIATES URINE NEGATIVE (NEGATIVE); PHENCYCLIDINE URINE NEGATIVE (NEGATIVE)
[2020-10-28 22:37] LABS: HCG, SERUM QUALITATIVE NEGATIVE (NEGATIVE)
[2020-10-28 22:49] LABS: ACETAMINOPHEN LEVEL < 2.0 UG/ML (10.0-30.0); ALBUMIN 3.1 GM/DL (3.2-5.2); ALT/SGPT 21 U/L (12-78); BILIRUBIN,DIRECT < 0.1 MG/DL (0.0-0.2); BILIRUBIN,TOTAL 0.2 MG/DL (0.2-1.0); BLOOD UREA NITROGEN 18 MG/DL (7-18); CALCIUM LEVEL 8.4 MG/DL (8.5-10.1); CARBON DIOXIDE LEVEL 24 MEQ/L (21-32); CHLORIDE LEVEL 109 MEQ/L (98-107); CREATININE FOR GFR 0.79 MG/DL (0.55-1.30); ETHYL ALCOHOL (ETHANOL) < 0.003 % (0.000-0.010); GLOMERULAR FILTRATION RATE > 60.0 (>60); GLUCOSE, FASTING 91 MG/DL (70-100); SALICYLATE LEVEL < 1.7 MG/DL (5.0-30.0); SODIUM LEVEL 140 MEQ/L (136-145); TOTAL PROTEIN 6.1 GM/DL (6.4-8.2)
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
[2020-10-29 16:45] VITALS: BP 120/64
[2020-11-06] MEDS ORDERED: CHLOR50TA PO (20:47)
[2020-11-07] MEDS ORDERED: PROZ40CA PO (09:45)
== END 2020-10-29 16:50 | disposition home or self-care (01) ==
LOC: M ED 19:56 → MERGE 19:56 → M ED 10-29 16:50
DX: F43.25 Adjustment disorder with mixed disturbance of emotions and conduct (principal); F43.0 Acute stress reaction; E03.9 Hypothyroidism, unspecified; E78.9 Disorder of lipoprotein metabolism, unspecified; F33.9 Major depressive disorder, recurrent, unspecified; F79 Unspecified intellectual disabilities; Z79.890 Hormone replacement therapy; Z79.899 Other long term (current) drug therapy; Z88.8 Allergy status to other drugs, medicaments and biological substances

== ENCOUNTER 2020-10-29 19:35 | Emergency (ER) | payer MEDICARE ==
[~2020-10-29] VITALS: Ht 167.6 cm; Wt 97.0 kg
[~2020-10-29 19:35] MED LIST changes: -ERGO500029 PO
[2020-10-29 21:08] LABS: HEMATOCRIT 40.7 % (36.0-47.0); HEMOGLOBIN 12.9 g/dl (12.0-15.5); MEAN CORPUSCULAR HEMOGLOBIN 29.4 pg (27.0-33.0); MEAN CORPUSCULAR HGB CONC 31.7 g/dl (32.0-36.5); MEAN CORPUSCULAR VOLUME 92.7 fl (80.0-96.0); PLATELET COUNT, AUTOMATED 236 10^3/uL (150-450); RED BLOOD COUNT 4.39 10^6/uL (4.00-5.40); WHITE BLOOD COUNT 9.3 10^3/uL (4.0-10.0)
[2020-10-29 21:36] LABS: HCG, SERUM QUALITATIVE NEGATIVE (NEGATIVE)
[2020-10-29 21:40] LABS: AMPHETAMINES LEVEL URINE NEGATIVE (NEGATIVE); BARBITURATES URINE NEGATIVE (NEGATIVE); BENZODIAZEPINES URINE POSITIVE (NEGATIVE); CANNABINOIDS URINE NEGATIVE (NEGATIVE); COCAINE METABOLITE URINE NEGATIVE (NEGATIVE); METHADONE URINE NEGATIVE (NEGATIVE); OPIATES URINE NEGATIVE (NEGATIVE); PHENCYCLIDINE URINE NEGATIVE (NEGATIVE)
[2020-10-29 21:43] LABS: ACETAMINOPHEN LEVEL < 2.0 UG/ML (10.0-30.0); ALBUMIN 3.2 GM/DL (3.2-5.2); ALT/SGPT 22 U/L (12-78); BILIRUBIN,DIRECT < 0.1 MG/DL (0.0-0.2); BILIRUBIN,TOTAL 0.2 MG/DL (0.2-1.0); BLOOD UREA NITROGEN 14 MG/DL (7-18); CALCIUM LEVEL 8.4 MG/DL (8.5-10.1); CARBON DIOXIDE LEVEL 26 MEQ/L (21-32); CHLORIDE LEVEL 109 MEQ/L (98-107); CREATININE FOR GFR 1.09 MG/DL (0.55-1.30); ETHYL ALCOHOL (ETHANOL) 0.003 % (0.000-0.010); GLOMERULAR FILTRATION RATE > 60.0 (>60); GLUCOSE, FASTING 96 MG/DL (70-100); POTASSIUM SERUM 4.2 MEQ/L (3.5-5.1); SALICYLATE LEVEL < 1.7 MG/DL (5.0-30.0); SODIUM LEVEL 141 MEQ/L (136-145); TOTAL PROTEIN 6.2 GM/DL (6.4-8.2)
[2020-10-30 11:22] VITALS: BP 114/59
== END 2020-10-30 11:31 | disposition home or self-care (01) ==
LOC: MERGE 19:35 → M ED 19:35
DX: R45.851 Suicidal ideations (principal); F33.9 Major depressive disorder, recurrent, unspecified; E03.9 Hypothyroidism, unspecified; F79 Unspecified intellectual disabilities; Z79.899 Other long term (current) drug therapy; Z79.890 Hormone replacement therapy

== ENCOUNTER 2020-10-30 18:58 | Emergency (ER) | payer MEDICARE ==
[~2020-10-30] VITALS: Ht 170.2 cm; Wt 79.5 kg
[2020-10-30 22:26] LABS: AMPHETAMINES LEVEL URINE NEGATIVE (NEGATIVE); BARBITURATES URINE NEGATIVE (NEGATIVE); BENZODIAZEPINES URINE POSITIVE (NEGATIVE); CANNABINOIDS URINE NEGATIVE (NEGATIVE); COCAINE METABOLITE URINE NEGATIVE (NEGATIVE); METHADONE URINE NEGATIVE (NEGATIVE); OPIATES URINE NEGATIVE (NEGATIVE); PHENCYCLIDINE URINE NEGATIVE (NEGATIVE)
[2020-10-30 22:37] LABS: HEMOGLOBIN 12.7 g/dl (12.0-15.5); MEAN CORPUSCULAR HEMOGLOBIN 29.2 pg (27.0-33.0); MEAN CORPUSCULAR VOLUME 94.3 fl (80.0-96.0); PLATELET COUNT, AUTOMATED 252 10^3/uL (150-450); RED BLOOD COUNT 4.35 10^6/uL (4.00-5.40); WHITE BLOOD COUNT 11.8 10^3/uL (4.0-10.0)
[2020-10-30 22:52] LABS: HCG, SERUM QUALITATIVE NEGATIVE (NEGATIVE)
[2020-10-30 22:54] LABS: ACETAMINOPHEN LEVEL < 2.0 UG/ML (10.0-30.0); ALBUMIN 3.5 GM/DL (3.2-5.2); ALT/SGPT 23 U/L (12-78); BILIRUBIN,DIRECT < 0.1 MG/DL (0.0-0.2); BILIRUBIN,TOTAL 0.2 MG/DL (0.2-1.0); BLOOD UREA NITROGEN 16 MG/DL (7-18); CALCIUM LEVEL 8.4 MG/DL (8.5-10.1); CARBON DIOXIDE LEVEL 30 MEQ/L (21-32); CHLORIDE LEVEL 108 MEQ/L (98-107); ETHYL ALCOHOL (ETHANOL) < 0.003 % (0.000-0.010); GLOMERULAR FILTRATION RATE > 60.0 (>60); GLUCOSE, FASTING 95 MG/DL (70-100); POTASSIUM SERUM 3.5 MEQ/L (3.5-5.1); SALICYLATE LEVEL < 1.7 MG/DL (5.0-30.0); SODIUM LEVEL 143 MEQ/L (136-145); TOTAL PROTEIN 6.7 GM/DL (6.4-8.2)
[2020-10-31 02:01] LABS: RSV AMPLIFICATION NEGATIVE (NEGATIVE)
[2020-10-31 08:39] VITALS: BP 131/74
== END 2020-10-31 08:42 ==
LOC: M ED 18:58 → MERGE 18:58 → M ED 10-31 08:42
DX: R45.851 Suicidal ideations (principal); F33.9 Major depressive disorder, recurrent, unspecified; F29 Unspecified psychosis not due to a substance or known physiological condition; E03.9 Hypothyroidism, unspecified; Z79.899 Other long term (current) drug therapy

== ENCOUNTER 2020-11-08 09:30 | Inpatient (IN) | payer MEDICARE, MEDICAID ==
[~2020-11-08] VITALS: Ht 160 cm; Wt 96.5 kg
[~2020-11-08 09:30] MED LIST changes: +CHLOR50TA PO; +ERGO500029 PO
[2020-11-08 10:50] LABS: HEMATOCRIT 41.3 % (36.0-47.0); MEAN CORPUSCULAR HEMOGLOBIN 29.2 pg (27.0-33.0); MEAN CORPUSCULAR HGB CONC 31.5 g/dl (32.0-36.5); MEAN CORPUSCULAR VOLUME 92.8 fl (80.0-96.0); PLATELET COUNT, AUTOMATED 277 10^3/uL (150-450); RED BLOOD COUNT 4.45 10^6/uL (4.00-5.40); WHITE BLOOD COUNT 9.3 10^3/uL (4.0-10.0)
[2020-11-08 11:22] LABS: HCG, SERUM QUALITATIVE NEGATIVE (NEGATIVE)
--- NOTE | 2020-11-08 11:24 | REP ---
INDICATION: pain COMPARISON: 07/28/2020. TECHNIQUE: Real time compression and duplex Doppler interrogation of the left lower extremity deep venous system is performed, including the right common femoral vein.Compression of the left peroneal and posterior tibial veins is performed. FINDINGS: The left common femoral, superficial femoral and popliteal veins are fully compressible with transducer pressure and demonstrate normal spontaneous and phasic flow, without evidence of deep venous thrombosis.The right common femoral vein demonstrates no thrombus.The visualized left peroneal and posterior tibial veins demonstrate no thrombus. Evaluation of the left peroneal and posterior tibial veins is limited due to body habitus. IMPRESSION: No evidence of deep venous thrombosis of the left lower extremity femoral popliteal venous system.No gross thrombus in the visualized left peroneal and posterior tibial veins. <Electronically signed by Oseas Gomez > 11/08/20 [id number]
[2020-11-08 11:29] LABS: ACETAMINOPHEN LEVEL < 2.0 UG/ML (10.0-30.0); ALBUMIN 3.6 GM/DL (3.2-5.2); ALT/SGPT 19 U/L (12-78); BILIRUBIN,DIRECT < 0.1 MG/DL (0.0-0.2); BILIRUBIN,TOTAL 0.3 MG/DL (0.2-1.0); BLOOD UREA NITROGEN 12 MG/DL (7-18); CARBON DIOXIDE LEVEL 26 MEQ/L (21-32); CHLORIDE LEVEL 106 MEQ/L (98-107); CREATININE FOR GFR 0.92 MG/DL (0.55-1.30); ETHYL ALCOHOL (ETHANOL) < 0.003 % (0.000-0.010); GLOMERULAR FILTRATION RATE > 60.0 (>60); GLUCOSE, FASTING 95 MG/DL (70-100); POTASSIUM SERUM 4.1 MEQ/L (3.5-5.1); SALICYLATE LEVEL < 1.7 MG/DL (5.0-30.0); SODIUM LEVEL 137 MEQ/L (136-145); TOTAL PROTEIN 6.9 GM/DL (6.4-8.2)
[2020-11-08 13:45] LABS: AMPHETAMINES LEVEL URINE NEGATIVE (NEGATIVE); BARBITURATES URINE NEGATIVE (NEGATIVE); BENZODIAZEPINES URINE POSITIVE (NEGATIVE); CANNABINOIDS URINE NEGATIVE (NEGATIVE); COCAINE METABOLITE URINE NEGATIVE (NEGATIVE); METHADONE URINE NEGATIVE (NEGATIVE); OPIATES URINE NEGATIVE (NEGATIVE); PHENCYCLIDINE URINE NEGATIVE (NEGATIVE)
[2020-11-08 15:56] LABS: RSV AMPLIFICATION NEGATIVE (NEGATIVE)
[2020-11-08] MEDS ORDERED: OLANZapine ORAL DISINTEGRATING TAB 5MG PO PRN (16:20)
[2020-11-08] MEDS ORDERED: MAALOX 30 ML SUSP *UDC PO PRN (16:20)
[2020-11-08] MEDS ORDERED: MOM 30ML SUSPENSION UDC PO PRN (16:20)
[2020-11-08] MEDS ORDERED: traZODone 50 MG TAB PO PRN (16:20)
[2020-11-08] MEDS ORDERED: ACETAMINOPHEN TAB 650MG DOSE (2X325MG) PO PRN (16:20)
[2020-11-08] MEDS ORDERED: LORazepam 1 MG TAB PO PRN (16:20)
[2020-11-08] MEDS ORDERED: PILL CUTTER 1 EACH XX PRN (17:25)
[2020-11-08 17:36] VITALS: BP 112/62
[2020-11-08] MEDS: ZONISAMIDE 100 MG CAP (ZONEGRAN) PO SCH (21:06)
[2020-11-08] MEDS: chlorproMAZINE 25 MG TABLET PO SCH (21:06)
[2020-11-09 05:47] VITALS: BP 119/82
[2020-11-09] MEDS: LEVOTHYROXINE 25MCG TABLET (0.025MG) PO SCH (05:53)
[2020-11-09] MEDS: ZONISAMIDE 100 MG CAP (ZONEGRAN) PO SCH ×2 (08:18→21:07)
[2020-11-09] MEDS: chlorproMAZINE 25 MG TABLET PO SCH (08:18)
[2020-11-09] MEDS: FLUoxetine 20 MG CAP PO SCH (08:18)
[2020-11-09] MEDS: ATORVASTATIN 20 MG TAB PO SCH (08:18)
--- NOTE | 2020-11-09 09:12 | MHHPEPDOC ---
General Date Of Admission: Nov 08, 2020 Legal Status: 9.39 Chief Complaint ". Was a hearing voices, telling me to kill myself and I cut myself with a razor History of Present Illness HISTORY OF THE PRESENT ILLNESS: Patient is a 35 -year-old , female, who [has long extended psychiatric history with repeated inpatient admissions and emergency room visits. She was last discharged on October 25, but had about 10 visits to the emergency with the same complaint of hearing voices telling her to kill herself. She made very smaller superficial scratch on her wrist that is barely noticeable, but claims that she really wants to kill herself and wouldn't contract for safety and admitted on 939 status. On examination with this M.D. the patient is cooperative and in good control. States that she was taking her mother's chlorpromazine because she didn't have any medicine and she is having more problem with hearing voices which she believes is from a demon. She is, however, denies any more suicidal intent, but asking to have her medication adjusted because she does not like the chlorpromazine that she was given by her mother. She has been living alone, despite unknown intellectual limitations, and has been encouraged to seek supportive living arrangement, but has not been compliant. It appears that the mother has psychiatric problems herself and has not been able to assist the patient with proper living arrangement.]. Psychiatric Review of Systems Depression (2 or more weeks): depressed mood, feelings of worthlesness, suicidal thoughts Airam (4 or more days of): denies Psychosis: auditory hallucination, delusions Anxiety: situational anxiety Past Psychiatric History Previous Psychiatric Diagnosis: . Numerous diagnoses including schizophrenia, schizoaffective disorder and intellectual disability Previous Psychiatric Admissions: . Numerous admissions with the last discharge on October 25 Suicide Attempts: . Numerous gestures of scratching her wrist, but no history of serious suicidal attempt Psychiatric Follow-up: . Been linked with outpatient clinic, but not been co mpliant Psychiatric medications: . Been on Prozac and Zyprexa Past Medical History Medical Problems Hypothyroidism, hypocholesterolemia, and history of tubal ligation Head Injury: No Seizures: No Hospitalizations: No Surgeries: No Family Medical/Psychiatric HX Medical Problems Noncontributory Psychiatric Disorders: Yes (patient's mother has a psychiatric history) Addiction: No Suicide Attemps/Completions: No Addiction History denies Social History Childhood: . Unremarkable Abuse/Trauma:[No history of abuse]. Current Living Situation: Apparently lives alone. Education: [, Unclear. However, she did not complete high school]. Employment: [, Unemployed]. Social Support: [ SSI]. The mother is her main support Legal: . no legal history Marital: ., Single Mental Status Examination General Appearance: unkempt, appears stated age Build: average Demeanor: average, withdrawn Eye Contact: avoidant Activity: slowed Behavior: cooperative, withdrawn Speech: slow, low in volume, non-spontaneous Mood: depressed Affect: constricted, appropriate, anxious Thought Process: slow Thought Content (Delusions): delusions Thought Content (Other): preoccupied, internal-stimuli Thought Content (Aggressive): none reported Perception (Hallucinations): auditory Perception (Other): none reported Cognition (Impairment of): none reported Cognition(Intelligence Est.): borderline Oriented: Awake, Alert, Oriented times three Insight: poor Judgment: Poor Psychosis: Other (claimed to hearing voices and preoccupied with demon) Diagnoses Schizoaffective disorder. Intellectual limitations. Personality disorder, mixed A-FIB/CHADSVASC A-FIB History Current/History of A-Fib/PAF?: No Current PO Anticoag Therapy: No Age/Risk Factor Scoring CHADSVASC: CHADSVASC Response (Comments) Value Gender Risk Factor Female 1 Hx of CHF No 0 Hx of HTN No 0 Hx of Stroke/TIA/or VTE No 0 Hx of Diabetes No 0 Hx of Vascular Disease No 0 Total 1 Treatment Treatment ordered: NONE Assessment Appears she has a very dependent and somewhat regressed behavior pattern and has been seeking admission with no clear treatment goal. Recommendation for support [facility] living, has been made, but patient has not followed through with any of the previous attempt. She apparently has not been attending any outpatient clinic and has been taking medicine given by her mother which is also problematic. She needs clear linkage with outpatient and needs to follow up with supportive living with the family's cooperation. Restart Zyprexa along with the Prozac and brief hospitalization to reestablish linkage and appropriate discharge plan. Initial Treatment Plan 1. Patient was admitted on a 9.39 status. 2. Complete history was obtained. 3. With patients permission, family will be contacted and database will be expanded. 4. Patients medication regimen will be reviewed and changed accordingly. 5. Patient will be provided with protected environment. 6. Patient will be treated with individual, group, and milieu therapies. 7. Patient will receive supportive psych-education. 8. Discharge planning will commence immediately. 9. Outpatient follow-up treatment will be strongly recommended. 10. The initial treatment plan will focus initially on: * Depression. * Risk for suicide. ESTIMATED LENGTH OF STAY: 2-3 DAYS. TIME SPENT COUNSELING AND COORDINATING INITIAL CARE: 45 minutes. Tobacco Cessation Screen If Patient is a Smoker Nonsmoker Complete/Results docum. Vital Signs Vital Signs Date Time Temp Pulse Resp B/P (MAP) Pulse Ox O2 Delivery O2 Flow Rate FiO2 11/09/20 05:47 97.0 90 16 119/82 (94) 97 Room Air Laboratory Data 24H Labs Laboratory Tests 2 11/08/20 10:19: Nucleated Red Blood Cells % (auto) 0.0, Anion Gap 5L, Glomerular Filtration Rate > 60.0, Calcium Level 9.0, Total Bilirubin 0.3, Direct Bilirubin < 0.1, Aspartate Amino Transf (AST/SGOT) 12, Alanine Aminotransferase (ALT/SGPT) 19, Alkaline Phosphatase 120H, Total Protein 6.9, Albumin 3.6, Albumin/Globulin Ratio 1.1L, Thyroid Stimulating Hormone (TSH) 5.110H, Human Chorionic Gonadotropin, Qual NEGATIVE, Salicylates Level < 1.7L, Urine Opiates Screen NEGATIVE, Urine Methadone Screen NEGATIVE, Acetaminophen Level < 2.0L, Urine Barbiturates Screen NEGATIVE, Urine Phencyclidine Screen NEGATIVE, Urine Amphetamines Screen NEGATIVE, Urine Benzodiazepines Screen POSITIVEH, Urine Cocaine Metabolite Screen NEGATIVE, Urine Cannabinoids Screen NEGATIVE, Ethyl Alcohol Level < 0.003 11/08/20 15:02: Coronavirus (COVID-19)(PCR) NEGATIVE, Influenza Type A (RT-PCR) NEGATIVE, Influenza Type B (RT-PCR) NEGATIVE, Respiratory Syncytial Virus (PCR) NEGATIVE CBC/BMP Laboratory Tests 11/08/20 10:19 Medications Scheduled Atorvastatin Calcium (Lipitor) 20 Mg Tab, 20 MG PO DAILY, (Reported) Azelastine HCl (Azelastine HCl) 0.05% 6ML Drops, 1 DROP OU BID, (Reported) Calcium Carbonate/Vitamin D3 (Calcium 600-Vit D3 2,500 Sftgl) 1 Each Capsule, 1 CAP PO BID, (Reported) Chlorpromazine HCl (Chlorpromazine HCl) 50 Mg Tablet, 50 MG PO BID, (Reported) Clobazam (Onfi) 10 Mg Tablet, 15 MG PO BID, (Reported) Fluoxetine HCl (Prozac) 20 Mg Capsule, 60 MG PO DAILY, (Reported) Levothyroxine Sodium (Levothyroxine Sodium) 25 Mcg Tablet, 25 MCG PO DAILY, (Reported) Zonisamide (Zonisamide) 100 Mg Cap, 200 MG PO BID, (Reported) Allergies Coded Allergies: divalproex sodium (Verified Allergy, Severe, 11/02/20) MOTHER REPORTS HYPER-AMMONIA LEVELS WITHIN TWO DAYS OF USE AT [facility] SEPTEMBER 2020 Cephalosporins (Verified Allergy, Intermediate, HIVES, 03/28/20) cefaclor (Verified Allergy, Unknown, 07/12/19) lamotrigine (Verified Adverse Reaction, Severe, SJS, 07/12/19) TRINA REYES M.D. Nov 09, 2020 09:12
[2020-11-09 16:50] VITALS: BP 113/64
--- NOTE | 2020-11-09 19:19 | HPEPDOC ---
[facility] Medical History & Physical Date of Admission Nov 08, 2020 Date of Service: Nov 09, 2020 History and Physical CHIEF COMPLAINT: Psychosis HISTORY OF PRESENT ILLNESS: Ms. Aaron is a 35 year old female who is here for hearing voices that were suggesting suicidal ideation which she acted upon. This afternoon, she appeared depressed and disheveled. She says she feels so-so. No specific symptoms, but she hears the devil speak to her. Otherwise, she notices that she coughs after she eats. Will order for CXR portable. PAST MEDICAL HISTORY: 1. Mild intellectual development disorder 2. Pituitary tumor 3. Speech impediment 4. Panic attack 5. Complex seizure disorder 6. History of homicidal/suicidal ideation 7. History of pyloric stenosis 8. Depression 9. Anxiety PAST SURGICAL HISTORY: 1. Tubal ligation 2. Uterus tumor removal 3. Appendectomy SOCIAL HISTORY: Tobacco use: Denies ETOH: Denies Illicit drug use: Denies FAMILY HISTORY: Father: Unknown Mother: Unknown ALLERGIES: Please see below. REVIEW OF SYSTEMS: CONSTITUTIONAL: Denies any fever or chills. ENT: Denies sore throat. RESPIRATORY: Reports cough. Denies dyspnea. CARDIOVASCULAR: Denies chest pain. GASTROINTESTINAL: Denies abdominal pain. Denies diarrhea. GENITOURINARY: Denies dysuria. CUTANEOUS: Denies rashes. MUSCULOSKELETAL: Denies muscle weakness. NEUROLOGICAL: Denies neuropathy. Denies paresthesias. PSYCHOLOGICAL: Reports hearing the devil's voice. HOME MEDICATIONS: Please see below. PHYSICAL EXAMINATION: VITAL SIGNS: Temperature 97, pulse 90, respiratory rate 16, blood pressure 11 9/82, pulse oximetry 97 % on room air. GENERAL: Disheveled, but in no apparent distress. HEENT: Head normocephalic/atraumatic, EOMI, sclera clear. NECK: Supple. RESPIRATORY: Lungs clear to auscultation bilaterally. CARDIOVASCULAR: Regular rate and rhythm. ABDOMEN: Soft, nontender, no guarding or rebound tenderness. Normal bowel sounds. MUSCLE SKELETAL: No pitting edema bilaterally. NEUROLOGICAL: CN 312 grossly intact. PSYCHOLOGICAL: Depressed LABORATORY DATA: See below. IMAGING: Radiologist interpretation Ultrasound of the legs bilaterally No evidence of deep venous thrombosis of the left lower extremity femoral popliteal venous system.No gross thrombus in the visualized left peroneal and posterior tibial veins. MICROBIOLOGY: Please see below. ASSESSMENT AND PLAN: 1. Psychosis with SI -Being managed in the inpatient mental health unit 2. Coughing -No leukocytosis or fever -Will order for CXR -Will order for procalcitonin 3. Hypothyroidism -Continue levothyroxine Thank you for consulting us. We will sign off at this time. If there are any further question or concerns, please do not hesitate to reconsult us. Vital Signs Vital Signs Date Time Temp Pulse Resp B/P (MAP) Pulse Ox O2 Delivery O2 Flow Rate FiO2 11/09/20 16:50 97.5 104 20 113/64 (80) 97 11/09/20 05:47 Room Air Home Medications Scheduled Atorvastatin Calcium (Lipitor) 20 Mg Tab, 20 MG PO DAILY Azelastine HCl (Azelastine HCl) 0.05% 6ML Drops, 1 DROP OU BID Calcium Carbonate/Vitamin D3 (Calcium 600-Vit D3 2,500 Sftgl) 1 Each Capsule, 1 CAP PO BID Chlorpromazine HCl (Chlorpromazine HCl) 50 Mg Tablet, 50 MG PO BID Clobazam (Onfi) 10 Mg Tablet, 15 MG PO BID Fluoxetine HCl (Prozac) 20 Mg Capsule, 60 MG PO DAILY Levothyroxine Sodium (Levothyroxine Sodium) 25 Mcg Tablet, 25 MCG PO DAILY Zonisamide (Zonisamide) 100 Mg Cap, 200 MG PO BID Allergies Coded Allergies: divalproex sodium (Verified Allergy, Severe, 11/02/20) MOTHER REPORTS HYPER-AMMONIA LEVELS WITHIN TWO DAYS OF USE AT [facility] SEPTEMBER 2020 Cephalosporins (Verified Allergy, Intermediate, HIVES, 03/28/20) cefaclor (Verified Allergy, Unknown, 07/12/19) lamotrigine (Verified Adverse Reaction, Severe, SJS, 07/12/19) A-FIB/CHADSVASC A-FIB History Current/History of A-Fib/PAF?: No Age/Risk Factor Scoring CHADSVASC: CHADSVASC Response (Comments) Value Gender Risk Factor Female 1 Hx of CHF No 0 Hx of HTN No 0 Hx of Stroke/TIA/or VTE No 0 Hx of Diabetes No 0 Hx of Vascular Disease No 0 Total 1 TALITA MEADOWS DO Nov 09, 2020 19:18
[2020-11-09] MEDS: OLANZapine 10 MG TAB PO SCH (21:07)
[2020-11-10] MEDS: LEVOTHYROXINE 25MCG TABLET (0.025MG) PO SCH (05:59)
[2020-11-10 06:00] VITALS: BP 116/68
[2020-11-10 07:59] LABS: BLOOD UREA NITROGEN 16 MG/DL (7-18); CALCIUM LEVEL 8.6 MG/DL (8.5-10.1); CARBON DIOXIDE LEVEL 28 MEQ/L (21-32); CHLORIDE LEVEL 110 MEQ/L (98-107); CREATININE FOR GFR 0.81 MG/DL (0.55-1.30); GLOMERULAR FILTRATION RATE > 60.0 (>60); GLUCOSE, FASTING 91 MG/DL (70-100); POTASSIUM SERUM 3.9 MEQ/L (3.5-5.1); SODIUM LEVEL 142 MEQ/L (136-145)
--- NOTE | 2020-11-10 08:45 | REP ---
INDICATION: cough. COMPARISON: 07/28/2020. TECHNIQUE: Portable FINDINGS: The technique utilized in obtaining the radiograph has magnified the cardiac silhouette and accentuated the interstitial markings. The cardiomediastinal silhouette lung romo are unchanged. No acute patchy parenchymal opacities or pleural effusions have developed. There is no change in the osseous structures. IMPRESSION: There is no acute cardiopulmonary disease. <Electronically signed by Modesto Shaikh > 11/10/20 0886
[2020-11-10] MEDS: ZONISAMIDE 100 MG CAP (ZONEGRAN) PO SCH ×2 (09:17→21:06)
[2020-11-10] MEDS: ATORVASTATIN 20 MG TAB PO SCH (09:17)
[2020-11-10] MEDS: FLUoxetine 20 MG CAP PO SCH (09:17)
--- NOTE | 2020-11-10 09:54 | MHIPNPDOC ---
[facility] Progress Note Progress Note DATE OF SERVICE: 11/10/20 Patient cooperated with Zyprexa and slept well. She is in bed, but in control and offers no new complaints and is in no acute distress. She stated that she is not as preoccupied about the demon apparently not having any command hallucinations and didn't show any suicidal behavior since her admission. She appears quite regressed and withdrawn but currently denies any active suicidal thoughts and willing to cooperate with the treatment HISTORY: . VITAL SIGNS: See below. NEW TEST RESULTS: . CURRENT MEDICATIONS: See below. MENTAL STATUS EXAMINATION: Patient is a 35-year old female, who is in no acute distress. Speech: Is simplistic. Language skills are fair. Thought processes including: Relevant. Thought content: Denies any active suicidal thoughts. Abstract reasoning, and computation: , Poor. Description of associations: Relevant. Description of abnormal or psychotic thoughts: Not actively hallucinating . Judgment: poor. Insight: . poor]. Orientation: Appears oriented. Recent and remote memory: poor. Attention span and concentration: poor. Language: . Fund of knowledge: . Mood: , Depressed, preoccupied. Affect: Blunted]. DIAGNOSES: 1. . Schizoaffective disorder 2. . 3. . ASSESSMENT: Cooperating with the medicine and in good control MANAGEMENT PLAN: Continue the current treatment for stabilization. TIME SPENT: [15] minutes. Vital Signs Vital Signs Date Time Temp Pulse Resp B/P (MAP) Pulse Ox O2 Delivery O2 Flow Rate FiO2 11/10/20 06:00 97.3 78 16 116/68 (84) 96 11/09/20 05:47 Room Air Laboratory Data 24H Labs Laboratory Tests 2 11/10/20 07:08: Anion Gap 4L, Glomerular Filtration Rate > 60.0, Calcium Level 8.6, Procalcitonin <0.05 CBC/BMP Laboratory Tests 11/10/20 07:08 Current Medications Current Medications Medications (Trade) Dose Ordered Sig/Jonathan Route PRN Reason Start Time Stop Time Status Last Admin Dose Admin Acetaminophen (Tylenol Tab) 650 mg Q6HP PRN PO HEADACHE or MILD DISCOMFORT 11/08/20 16:20 Al Hydrox/Mg Hydrox/Simethicone (Mylanta) 30 ml Q4HP PRN PO HEARTBURN/INDIGESTION 11/08/20 16:20 Atorvastatin Calcium (Lipitor) 20 mg DAILY PO 11/09/20 09:00 6/19/21 09:17 Chlorpromazine HCl (Thorazine) 50 mg BID PO 11/08/20 21:00 11/09/20 08:54 DC 11/09/20 08:18 Clobazam (Onfi) 15 mg BID PO 11/08/20 21:00 11/10/20 09:17 Fluoxetine HCl (PROzac) 60 mg DAILY PO 11/09/20 09:00 11/10/20 09:17 Home Med (Med Rec Complete!) ASDIRECTED XX 11/08/20 14:05 11/08/20 14:08 DC Levothyroxine Sodium (Synthroid) 25 mcg DAILY@0600 PO 11/09/20 06:00 11/10/20 05:59 Lorazepam (Ativan) 1 mg Q6HP PRN PO ANXIETY/AGITATION 11/08/20 16:20 Magnesium Hydroxide (Milk Of Magnesia) 30 ml DAILYPRN PRN PO CONSTIPATION 11/08/20 16:20 Olanzapine (ZyPREXA ZYDIS) 5 mg Q6HP PRN PO AGITATION 11/08/20 16:20 Olanzapine (ZyPREXA) 15 mg QHS PO 11/09/20 21:00 11/09/20 21:07 Trazodone HCl (Desyrel) 50 mg QHSP PRN PO INSOMNIA 11/08/20 16:20 Zonisamide (Zonegran) 200 mg BID PO 11/08/20 21:00 11/10/20 09:17 Allergies Coded Allergies: divalproex sodium (Verified Allergy, Severe, 11/02/20) MOTHER REPORTS HYPER-AMMONIA LEVELS WITHIN TWO DAYS OF USE AT [facility] SEPTEMBER 2020 Cephalosporins (Verified Allergy, Intermediate, HIVES, 03/28/20) cefaclor (Verified Allergy, Unknown, 07/12/19) lamotrigine (Verified Adverse Reaction, Severe, SJS, 07/12/19) TRINA REYES M.D. Nov 10, 2020 09:54
[2020-11-10 16:33] VITALS: BP 95/60
[2020-11-10] MEDS: OLANZapine 10 MG TAB PO SCH (21:05)
[2020-11-11] MEDS: LEVOTHYROXINE 25MCG TABLET (0.025MG) PO SCH (05:51)
[2020-11-11 06:20] VITALS: BP 122/74
[2020-11-11] MEDS: ATORVASTATIN 20 MG TAB PO SCH (08:29)
[2020-11-11] MEDS: FLUoxetine 20 MG CAP PO SCH (08:29)
[2020-11-11] MEDS: ZONISAMIDE 100 MG CAP (ZONEGRAN) PO SCH ×2 (08:29→21:04)
--- NOTE | 2020-11-11 08:52 | MHIPNPDOC ---
[facility] Progress Note Progress Note DATE OF SERVICE: 11/11/20 Patient is eating well. Her sleeping good and has no new complaints. She is not very social and spend a lot of time in her bed, but in no acute distress and no acting out behavior. Reports feeling okay. She is not showing any suicidal or mutilating behavior and doesn't appear to be actively hallucinating and is not reporting any delusional thinking. She, however, reports that she does not feel safe to go back to her home and does not feel ready to be discharged. HISTORY: . VITAL SIGNS: See below. NEW TEST RESULTS: . CURRENT MEDICATIONS: See below. MENTAL STATUS EXAMINATION: Patient is a 35-year old female, who is in control and in no acute distress. Speech: Is simplistic but relevant. Language skills are fair. Thought processes including: Responded appropriately . Thought content: Denies any active suicidal thoughts. Abstract reasoning, and computation: poor. Description of associations: Relevant and coherent. Description of abnormal or psychotic thoughts: . No gross delusional thinking. Judgment: poor. Insight: poor]. Orientation: Appears oriented. Recent and remote memory: poor. Attention span and concentration: poor. Language: . Fund of knowledge: Below average. Mood: [Remains depressed]. Affect: [Blunted but appropriate]. DIAGNOSES: 1. . Schizoaffective disorder 2. . 3. . ASSESSMENT:[Cooperating with the treatment and in good control] MANAGEMENT PLAN: [Continue the current treatment]. TIME SPENT: [15] minutes. Vital Signs Vital Signs Date Time Temp Pulse Resp B/P (MAP) Pulse Ox O2 Delivery O2 Flow Rate FiO2 11/11/20 06:20 97.2 66 16 122/74 (90) 95 Room Air Current Medications Current Medications Medications (Trade) Dose Ordered Sig/Jonathan Route PRN Reason Start Time Stop Time Status Last Admin Dose Admin Acetaminophen (Tylenol Tab) 650 mg Q6HP PRN PO HEADACHE or MILD DISCOMFORT 11/08/20 16:20 Al Hydrox/Mg Hydrox/Simethicone (Mylanta) 30 ml Q4HP PRN PO HEARTBURN/INDIGESTION 11/08/20 16:20 Atorvastatin Calcium (Lipitor) 20 mg DAILY PO 11/09/20 09:00 11/11/20 08:29 Chlorpromazine HCl (Thorazine) 50 mg BID PO 11/08/20 21:00 11/09/20 08:54 DC 11/09/20 08:18 Clobazam (Onfi) 15 mg BID PO 11/08/20 21:00 11/11/20 08:29 Fluoxetine HCl (PROzac) 60 mg DAILY PO 11/09/20 09:00 11/11/20 08:29 Home Med (Med Rec Complete!) ASDIRECTED XX 11/08/20 14:05 11/08/20 14:08 DC Levothyroxine Sodium (Synthroid) 25 mcg DAILY@0600 PO 11/09/20 06:00 11/11/20 05:51 Lorazepam (Ativan) 1 mg Q6HP PRN PO ANXIETY/AGITATION 11/08/20 16:20 Magnesium Hydroxide (Milk Of Magnesia) 30 ml DAILYPRN PRN PO CONSTIPATION 11/08/20 16:20 Olanzapine (ZyPREXA ZYDIS) 5 mg Q6HP PRN PO AGITATION 11/08/20 16:20 Olanzapine (ZyPREXA) 15 mg QHS PO 11/09/20 21:00 11/10/20 21:05 Trazodone HCl (Desyrel) 50 mg QHSP PRN PO INSOMNIA 11/08/20 16:20 Zonisamide (Zonegran) 200 mg BID PO 11/08/20 21:00 11/11/20 08:29 Allergies Coded Allergies: divalproex sodium (Verified Allergy, Severe, 11/02/20) MOTHER REPORTS HYPER-AMMONIA LEVELS WITHIN TWO DAYS OF USE AT [facility] SEPTEMBER 2020 Cephalosporins (Verified Allergy, Intermediate, HIVES, 03/28/20) cefaclor (Verified Allergy, Unknown, 07/12/19) lamotrigine (Verified Adverse Reaction, Severe, SJS, 07/12/19) TRINA REYES M.D. Nov 11, 2020 08:52
[2020-11-11 17:33] VITALS: BP 105/57
[2020-11-11] MEDS: OLANZapine 10 MG TAB PO SCH (21:03)
[2020-11-12] MEDS: LEVOTHYROXINE 25MCG TABLET (0.025MG) PO SCH (05:32)
[2020-11-12 06:42] VITALS: BP 117/60
[2020-11-12] MEDS: ZONISAMIDE 100 MG CAP (ZONEGRAN) PO SCH ×2 (09:06→20:39)
[2020-11-12] MEDS: FLUoxetine 20 MG CAP PO SCH (09:07)
[2020-11-12] MEDS: ATORVASTATIN 20 MG TAB PO SCH (09:07)
--- NOTE | 2020-11-12 09:56 | MHIPNPDOC ---
[facility] Progress Note Progress Note DATE OF SERVICE: 11/12/20 The patient is not as withdrawn and spending more time out of the bed. She is also a little brighter and smiling appropriately and denies any hallucinations or fear of demon.. She has not expressed any suicidal thoughts and denies any thoughts of acting out. HISTORY: . VITAL SIGNS: See below. NEW TEST RESULTS: . CURRENT MEDICATIONS: See below. MENTAL STATUS EXAMINATION: Patient is a 35-year old female, who is in good control. Speech: Is , relevant, but not productive. Language skills are fair. Thought processes including: , Not spontaneous. Thought content: , Not talking about any fear. Abstract reasoning, and computation: , Poor. Description of associations: Relevant response. Description of abnormal or psychotic thoughts: Denies any command hallucination. Judgment: , Poor. Insight: poor. Orientation: Appears oriented. Recent and remote memory: poor. Attention span and concentration: . Language: . Fund of knowledge: . Mood: , Mildly depressed. Affect: Blunted but appropriate. DIAGNOSES: 1. . Schizoaffective disorder 2. . 3. . ASSESSMENT:Maintaining good control and appears to be at her baseline MANAGEMENT PLAN: . Continue with the current treatment and possible discharge tomorrow. TIME SPENT: 20 minutes. Vital Signs Vital Signs Date Time Temp Pulse Resp B/P (MAP) Pulse Ox O2 Delivery O2 Flow Rate FiO2 11/12/20 06:42 97.6 68 16 117/60 (79) 96 Room Air Current Medications Current Medications Medications (Trade) Dose Ordered Sig/Jonathan Route PRN Reason Start Time Stop Time Status Last Admin Dose Admin Acetaminophen (Tylenol Tab) 650 mg Q6HP PRN PO HEADACHE or MILD DISCOMFORT 11/08/20 16:20 Al Hydrox/Mg Hydrox/Simethicone (Mylanta) 30 ml Q4HP PRN PO HEARTBURN/INDIGESTION 11/08/20 16:20 Atorvastatin Calcium (Lipitor) 20 mg DAILY PO 11/09/20 09:00 11/12/20 09:07 Chlorpromazine HCl (Thorazine) 50 mg BID PO 11/08/20 21:00 11/09/20 08:54 DC 11/09/20 08:18 Clobazam (Onfi) 15 mg BID PO 11/08/20 21:00 11/12/20 09:06 Fluoxetine HCl (PROzac) 60 mg DAILY PO 11/09/20 09:00 11/12/20 09:07 Home Med (Med Rec Complete!) ASDIRECTED XX 11/08/20 14:05 11/08/20 14:08 DC Levothyroxine Sodium (Synthroid) 25 mcg DAILY@0600 PO 11/09/20 06:00 11/12/20 05:32 Lorazepam (Ativan) 1 mg Q6HP PRN PO ANXIETY/AGITATION 11/08/20 16:20 Magnesium Hydroxide (Milk Of Magnesia) 30 ml DAILYPRN PRN PO CONSTIPATION 11/08/20 16:20 Olanzapine (ZyPREXA ZYDIS) 5 mg Q6HP PRN PO AGITATION 11/08/20 16:20 Olanzapine (ZyPREXA) 15 mg QHS PO 11/09/20 21:00 11/11/20 21:03 Trazodone HCl (Desyrel) 50 mg QHSP PRN PO INSOMNIA 11/08/20 16:20 Zonisamide (Zonegran) 200 mg BID PO 11/08/20 21:00 11/12/20 09:06 Allergies Coded Allergies: divalproex sodium (Verified Allergy, Severe, 11/02/20) MOTHER REPORTS HYPER-AMMONIA LEVELS WITHIN TWO DAYS OF USE AT [facility] SEPTEMBER 2020 Cephalosporins (Verified Allergy, Intermediate, HIVES, 03/28/20) cefaclor (Verified Allergy, Unknown, 07/12/19) lamotrigine (Verified Adverse Reaction, Severe, SJS, 07/12/19) TRINA REYES M.D. Nov 12, 2020 09:56
[2020-11-12 16:15] VITALS: BP 110/58
[2020-11-12] MEDS: OLANZapine 10 MG TAB PO SCH (20:38)
[2020-11-13] MEDS: LEVOTHYROXINE 25MCG TABLET (0.025MG) PO SCH (05:21)
[2020-11-13 06:09] VITALS: BP 95/56
[2020-11-13] MEDS: ZONISAMIDE 100 MG CAP (ZONEGRAN) PO SCH (08:55)
[2020-11-13] MEDS: FLUoxetine 20 MG CAP PO SCH (08:55)
[2020-11-13] MEDS: ATORVASTATIN 20 MG TAB PO SCH (08:56)
[2020-11-13] MEDS ORDERED: OLAN10TA2 PO (10:18)
--- NOTE | 2020-11-15 11:11 | MHDSPDOC ---
[facility] Discharge Summary Discharge Summary DATE OF ADMISSION: Nov 08, 2020 at 16:18 DATE OF DISCHARGE: Nov 13, 2020 at 11:55 DISCHARGE DIAGNOSES: 1. . Schizoaffective disorder 2. . REASON FOR ADMISSION: 35-year-old female admitted with the long psychiatric history admitted due to complaining of increasing auditory hallucination and thoughts of suicide. Patient reported that she ran out of her regular medications and was given chlorpromazine by his mother, but she has been increasingly preoccupied with the voices of the demon which she claims has been going on for a week. Patient was recently discharged from another hospital after 2 days of stay, but when she went home. She was again feeling scared and depressed and scratched her wrist with a knife and came to emergency room seeking help and couldn't contract for safety. CONSULTANTS INVOLVED: TREATMENT AND PROGRESS ON THE UNIT : Patient was seen for daily supportive therapy, group therapy and was restarted on Prozac 60 mg and Zyprexa 15 mg at bedtime. She is fully cooperated and showed a much improved mental status and behavior after the first 2 days. She is not preoccupied with the demon and denies hearing any voices and maintain good control and didn't show any suicidal or self mutilating behavior. Patient's father called the M.D. and relayed is concerned that the patient was diagnosed with a seizure several years ago and since then she has been showing more psychiatric issues. He feels strongly that the patient has to be admitted to the neurology department but it was explained to the father that there is no medical emergency to warrant neurology inpatient care. The father stated that he planned to take her to a [facility] to seek neurological evaluation and he was told that it will be his decision to make, but no immediate neurological evaluation is indicated at this time.. HOSPITAL COURSE: The patient responded well to the medication change and maintaining good control and contact and didn't show any dangerous behavior and appears to be at her baseline mental status and will be discharged to her apartment with the recommendation to seek supportive living arrangement. DISCHARGE ASSESSMENT: , Stable, not suicidal MENTAL STATUS EXAMINATION ON DISCHARGE: Patient is a 35-year old female, who is in no acute distress. Speech is , relevant, but not productive. Language skills are fair. Thought processes including: , Coherent. Thought content: Not productive, but denies any command hallucination and denies any suicidal thoughts . Abstract reasoning, and computation: poor. Description of associations: Relevant response. Description of abnormal or psychotic thoughts: Not preoccupied with the demon or the hallucination. Judgment: poor. Insight: poor]. Orientation to , well oriented. Recent and remote memory: fair. Attention span and concentration: poor. Language: . Fund of knowledge: Below average. Mood: Mildly depressed and preoccupied . Affect: Blunted but appropriate. MEDICATIONS ON DISCHARGE: - for ., Zyprexa 15 mg at bedtime for 7 days with 3 refills - for . - for . PLAN/FOLLOWUP ARRANGEMENTS: Arranged by facility planner. The amount of time spent in the coordination of care for this patient was approximately 35 minutes. ETOH/Disorder Med Rx ETOH/DRUG DISORDER RX: N/A Vital Signs/I&Os Vital Signs Date Time Temp Pulse Resp B/P (MAP) Pulse Ox O2 Delivery O2 Flow Rate FiO2 11/13/20 06:09 97.8 62 14 95/56 (69) 98 Room Air Medications Scheduled Atorvastatin Calcium (Lipitor) 20 Mg Tab, 20 MG PO DAILY, (Reported) Azelastine HCl (Azelastine HCl) 0.05% 6ML Drops, 1 DROP OU BID, (Reported) Calcium Carbonate/Vitamin D3 (Calcium 600-Vit D3 2,500 Sftgl) 1 Each Capsule, 1 CAP PO BID, (Reported) Clobazam (Onfi) 10 Mg Tablet, 15 MG PO BID, (Reported) Fluoxetine HCl (Prozac) 20 Mg Capsule, 60 MG PO DAILY, (Reported) Levothyroxine Sodium (Levothyroxine Sodium) 25 Mcg Tablet, 25 MCG PO DAILY, (Reported) Olanzapine (Olanzapine) 10 Mg Tablet, 15 MG PO QHS for psychosis for 7 Days, #13 Zonisamide (Zonisamide) 100 Mg Cap, 200 MG PO BID, (Reported) Allergies Coded Allergies: divalproex sodium (Verified Allergy, Severe, 11/02/20) MOTHER REPORTS HYPER-AMMONIA LEVELS WITHIN TWO DAYS OF USE AT [facility] SEPTEMBER 2020 Cephalosporins (Verified Allergy, Intermediate, HIVES, 03/28/20) cefaclor (Verified Allergy, Unknown, 07/12/19) lamotrigine (Verified Adverse Reaction, Severe, SJS, 07/12/19) TRINA REYES M.D. Nov 15, 2020 11:11
== END 2020-11-13 11:55 | disposition home or self-care (01) | DRG 885 ==
LOC: M ED 09:30 → M ED INP 16:18 → M PSY 17:06
PROVIDERS: ADMIT Psychiatry & Neurology Psychiatry; ATTEND Psychiatry & Neurology Psychiatry
DX: F20.9 Schizophrenia, unspecified (principal); R45.851 Suicidal ideations; Z88.8 Allergy status to other drugs, medicaments and biological substances; Z79.899 Other long term (current) drug therapy; G40.909 Epilepsy, unspecified, not intractable, without status epilepticus; F70 Mild intellectual disabilities; R47.9 Unspecified speech disturbances

== ENCOUNTER 2020-11-15 19:14 | Emergency (ER) | payer MEDICARE, MEDICAID ==
[~2020-11-15] VITALS: Ht 160 cm; Wt 96.0 kg
[2020-11-15 20:21] LABS: AMPHETAMINES LEVEL URINE NEGATIVE (NEGATIVE); BARBITURATES URINE NEGATIVE (NEGATIVE); BENZODIAZEPINES URINE POSITIVE (NEGATIVE); CANNABINOIDS URINE NEGATIVE (NEGATIVE); COCAINE METABOLITE URINE NEGATIVE (NEGATIVE); METHADONE URINE NEGATIVE (NEGATIVE); OPIATES URINE NEGATIVE (NEGATIVE); PHENCYCLIDINE URINE NEGATIVE (NEGATIVE)
[2020-11-15 21:24] LABS: HEMATOCRIT 39.4 % (36.0-47.0); HEMOGLOBIN 12.4 g/dl (12.0-15.5); MEAN CORPUSCULAR HEMOGLOBIN 29.2 pg (27.0-33.0); MEAN CORPUSCULAR HGB CONC 31.5 g/dl (32.0-36.5); MEAN CORPUSCULAR VOLUME 92.9 fl (80.0-96.0); PLATELET COUNT, AUTOMATED 258 10^3/uL (150-450); RED BLOOD COUNT 4.24 10^6/uL (4.00-5.40); WHITE BLOOD COUNT 10.3 10^3/uL (4.0-10.0)
[2020-11-15 21:47] LABS: HCG, SERUM QUALITATIVE NEGATIVE (NEGATIVE)
[2020-11-15 22:01] LABS: ACETAMINOPHEN LEVEL < 2.0 UG/ML (10.0-30.0); ALBUMIN 3.3 GM/DL (3.2-5.2); ALT/SGPT 20 U/L (12-78); BILIRUBIN,DIRECT < 0.1 MG/DL (0.0-0.2); BILIRUBIN,TOTAL 0.2 MG/DL (0.2-1.0); BLOOD UREA NITROGEN 19 MG/DL (7-18); CALCIUM LEVEL 8.2 MG/DL (8.5-10.1); CARBON DIOXIDE LEVEL 28 MEQ/L (21-32); CHLORIDE LEVEL 110 MEQ/L (98-107); CREATININE FOR GFR 1.07 MG/DL (0.55-1.30); ETHYL ALCOHOL (ETHANOL) < 0.003 % (0.000-0.010); GLOMERULAR FILTRATION RATE > 60.0 (>60); GLUCOSE, FASTING 95 MG/DL (70-100); POTASSIUM SERUM 3.9 MEQ/L (3.5-5.1); SALICYLATE LEVEL < 1.7 MG/DL (5.0-30.0); SODIUM LEVEL 142 MEQ/L (136-145); TOTAL PROTEIN 6.2 GM/DL (6.4-8.2)
[2020-11-16] MEDS ORDERED: LEVOTHYROXINE 25MCG TABLET (0.025MG) PO SCH (06:00)
[2020-11-16 06:21] VITALS: BP 120/59
[2020-11-16] MEDS ORDERED: ZONISAMIDE 100 MG CAP (ZONEGRAN) PO SCH (09:00)
[2020-11-16] MEDS ORDERED: FLUoxetine 20 MG CAP PO ONE (10:15)
[2020-11-16] MEDS ORDERED: PILL CUTTER 1 EACH XX PRN (10:40)
== END 2020-11-16 12:00 | disposition home or self-care (01) ==
LOC: M ED 19:14
DX: F32.9 Major depressive disorder, single episode, unspecified (principal); F25.0 Schizoaffective disorder, bipolar type; R45.850 Homicidal ideations; R45.851 Suicidal ideations; Z88.8 Allergy status to other drugs, medicaments and biological substances

== ENCOUNTER 2020-11-16 18:28 | Emergency (ER) | payer MEDICARE, MEDICAID ==
[~2020-11-16] VITALS: Ht 165.1 cm; Wt 97.2 kg
[2020-11-16 19:52] LABS: HEMATOCRIT 40.9 % (36.0-47.0); HEMOGLOBIN 12.7 g/dl (12.0-15.5); MEAN CORPUSCULAR HGB CONC 31.1 g/dl (32.0-36.5); MEAN CORPUSCULAR VOLUME 93.4 fl (80.0-96.0); PLATELET COUNT, AUTOMATED 244 10^3/uL (150-450); RED BLOOD COUNT 4.38 10^6/uL (4.00-5.40)
[2020-11-16 20:18] LABS: AMPHETAMINES LEVEL URINE NEGATIVE (NEGATIVE); BARBITURATES URINE NEGATIVE (NEGATIVE); BENZODIAZEPINES URINE POSITIVE (NEGATIVE); CANNABINOIDS URINE NEGATIVE (NEGATIVE); COCAINE METABOLITE URINE NEGATIVE (NEGATIVE); METHADONE URINE NEGATIVE (NEGATIVE); OPIATES URINE NEGATIVE (NEGATIVE); PHENCYCLIDINE URINE NEGATIVE (NEGATIVE)
[2020-11-16 20:25] LABS: HCG, SERUM QUALITATIVE NEGATIVE (NEGATIVE)
[2020-11-16 20:33] LABS: ACETAMINOPHEN LEVEL < 2.0 UG/ML (10.0-30.0); ALBUMIN 3.3 GM/DL (3.2-5.2); ALT/SGPT 22 U/L (12-78); BILIRUBIN,DIRECT < 0.1 MG/DL (0.0-0.2); BILIRUBIN,TOTAL 0.2 MG/DL (0.2-1.0); BLOOD UREA NITROGEN 21 MG/DL (7-18); CALCIUM LEVEL 8.3 MG/DL (8.5-10.1); CARBON DIOXIDE LEVEL 25 MEQ/L (21-32); CHLORIDE LEVEL 111 MEQ/L (98-107); CREATININE FOR GFR 0.82 MG/DL (0.55-1.30); ETHYL ALCOHOL (ETHANOL) < 0.003 % (0.000-0.010); GLOMERULAR FILTRATION RATE > 60.0 (>60); GLUCOSE, FASTING 96 MG/DL (70-100); SALICYLATE LEVEL < 1.7 MG/DL (5.0-30.0); SODIUM LEVEL 143 MEQ/L (136-145); TOTAL PROTEIN 6.6 GM/DL (6.4-8.2)
[2020-11-17 00:03] LABS: RSV AMPLIFICATION NEGATIVE (NEGATIVE)
[2020-11-17] MEDS ORDERED: LEVOTHYROXINE 25MCG TABLET (0.025MG) PO STA (11:22)
[2020-11-17] MEDS ORDERED: FLUoxetine 20 MG CAP PO ONE (11:25)
[2020-11-17] MEDS ORDERED: ATORVASTATIN 20 MG TAB PO ONE (11:25)
[2020-11-17] MEDS ORDERED: LEVOTHYROXINE 25MCG TABLET (0.025MG) PO ONE (11:35)
[2020-11-17] MEDS ORDERED: ZONISAMIDE 100 MG CAP (ZONEGRAN) PO ONE (11:45)
--- NOTE | 2020-11-17 20:46 | ECGEPIP ---
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
[2020-11-17] MEDS ORDERED: OLANZapine 5 MG TAB PO SCH (21:00)
[2020-11-17] MEDS ORDERED: PILL CUTTER 1 EACH XX PRN (21:15)
[2020-11-17] MEDS: ZONISAMIDE 100 MG CAP (ZONEGRAN) PO SCH (21:54)
[2020-11-18] MEDS ORDERED: LEVOTHYROXINE 25MCG TABLET (0.025MG) PO SCH (08:30)
[2020-11-18] MEDS: ZONISAMIDE 100 MG CAP (ZONEGRAN) PO SCH (08:52)
[2020-11-18] MEDS ORDERED: FLUoxetine 20 MG CAP PO ONE (09:00)
[2020-11-18] MEDS ORDERED: ATORVASTATIN 20 MG TAB PO ONE (09:00)
[2020-11-18 11:07] VITALS: BP 116/78
[2020-11-19] MEDS ORDERED: LEVOTHYROXINE 25MCG TABLET (0.025MG) PO SCH (06:00)
== END 2020-11-18 11:07 | disposition short-term general hospital (02) ==
LOC: M ED 18:28
DX: F25.0 Schizoaffective disorder, bipolar type (principal); R45.850 Homicidal ideations; R45.851 Suicidal ideations

== ENCOUNTER 2020-11-20 19:49 | Observation (INO) | payer MEDICARE, MEDICAID ==
[~2020-11-20] VITALS: Ht 172.7 cm; Wt 88.6 kg
[2020-11-20] MEDS ORDERED: NS 1,000 ML IV ONE (20:00)
[2020-11-20 20:55] LABS: BASO % 0.4 % (0.0-1.0); EOS # 0.2 10^3/uL (0.0-0.5); EOS % 1.8 % (0.0-3.0); HEMATOCRIT 42.8 % (36.0-47.0); HEMOGLOBIN 13.5 g/dl (12.0-15.5); LYMPH # 3.8 10^3/uL (1.5-5.0); LYMPH % 33.1 % (24.0-44.0); MEAN CORPUSCULAR HEMOGLOBIN 29.3 pg (27.0-33.0); MEAN CORPUSCULAR HGB CONC 31.5 g/dl (32.0-36.5); MONO # 1.1 10^3/uL (0.0-0.8); MONO % 9.4 % (2.0-8.0); NEUTROPHILS # 6.3 10^3/uL (1.5-8.5); PLATELET COUNT, AUTOMATED 251 10^3/uL (150-450); WHITE BLOOD COUNT 11.4 10^3/uL (4.0-10.0)
[2020-11-20 21:05] LABS: ACETAMINOPHEN LEVEL < 2.0 UG/ML (10.0-30.0); ALBUMIN 3.8 GM/DL (3.2-5.2); ALT/SGPT 21 U/L (12-78); BILIRUBIN,DIRECT < 0.1 MG/DL (0.0-0.2); BILIRUBIN,TOTAL 0.2 MG/DL (0.2-1.0); BLOOD UREA NITROGEN 17 MG/DL (7-18); CALCIUM LEVEL 8.6 MG/DL (8.5-10.1); CARBON DIOXIDE LEVEL 25 MEQ/L (21-32); CHLORIDE LEVEL 106 MEQ/L (98-107); CPK CREATINE PHOSPHOKINASE 159 U/L (26-192); CREATININE FOR GFR 0.93 MG/DL (0.55-1.30); ETHYL ALCOHOL (ETHANOL) < 0.003 % (0.000-0.010); GLOMERULAR FILTRATION RATE > 60.0 (>60); GLUCOSE, FASTING 86 MG/DL (70-100); POTASSIUM SERUM 3.6 MEQ/L (3.5-5.1); SALICYLATE LEVEL < 1.7 MG/DL (5.0-30.0); SODIUM LEVEL 140 MEQ/L (136-145); TOTAL PROTEIN 7.5 GM/DL (6.4-8.2)
[2020-11-20 21:11] LABS: HCG, SERUM QUALITATIVE NEGATIVE (NEGATIVE)
[2020-11-20 22:20] LABS: RSV AMPLIFICATION NEGATIVE (NEGATIVE)
[2020-11-21] MEDS ORDERED: ZONISAMIDE 100 MG CAP (ZONEGRAN) PO ONE (00:45)
[2020-11-21] MEDS ORDERED: PILL CUTTER 1 EACH XX ONE (00:54)
--- NOTE | 2020-11-21 01:26 | REPVR ---
PROCEDURE INFORMATION: Exam: XR Chest Exam date and time: 11/21/2020 1:08 AM Age: 35 years old Clinical indication: Cough TECHNIQUE: Imaging protocol: XR of the chest. Views: 1 view. COMPARISON: [facility] PORTABLE CHEST X-RAY 11/10/2020 8:17 AM FINDINGS: Lungs: The lung volumes are low. There is left basilar atelectasis or consolidation. Pleural spaces: Unremarkable. No pleural effusion. No pneumothorax. Heart/Mediastinum: The cardiac silhouette is magnified by the AP portable technique and low lung volumes. The mediastinal contours are unremarkable. Bones/joints: Unremarkable. Gastrointestinal tract: There is gaseous distention of the stomach. IMPRESSION: Left basilar atelectasis or consolidation. Electronically signed by: John Nick On 11/21/2020 01:26:16 AM
[2020-11-21] MEDS ORDERED: MAALOX 30 ML SUSP *UDC PO PRN (03:55)
[2020-11-21] MEDS ORDERED: NS 1,000 ML IV SCH (03:55)
[2020-11-21] MEDS ORDERED: MOM 30ML SUSPENSION UDC PO PRN (03:55)
[2020-11-21] MEDS ORDERED: ACETAMINOPHEN TAB 650MG DOSE (2X325MG) PO PRN (03:55)
--- NOTE | 2020-11-21 04:11 | HPEPDOC ---
[facility] Medical History & Physical Date of Admission Nov 21, 2020 Date of Service: Nov 21, 2020 Attending Physician: SIRI LUQUE DO History and Physical CHIEF COMPLAINT: Attempted suicide HISTORY OF PRESENT ILLNESS: Ms. Aaron is a 35-year-old female with a history of schizoaffective disorder who was just discharged from mental health facility where she was hospitalized after a suicide attempt. She was brought back to the ER today after she consumed a full bottle Lysol dish soap. She tells me "the demon told me to do it". Upon arrival in the ER, she was nauseous and vomiting a great deal. She continues to complain of abdominal pain at the time of my evaluation. Chest x-ray showed atelectasis or infiltrate secondary to aspiration pneumonitis. She was noted to be hypoxic on room air and was started on oxygen. Poison control was contacted and originally advised for close observation for 6 hours. They then called back to the ER and recommended the patient be kept nothing by mouth until she can be evaluated by gastroenterology. She did have a mild elevation of white blood cell count 11.4. TSH is high at 5.64 which is elevated from her previous level of 2.54 on November 16. PAST MEDICAL HISTORY: 1. Schizoaffective disorder. 2. Psychosis. 3. Intellectual developmental disability. 4. Speech impediment. 5. Panic attack. 6. Complex seizure disorder. 7. Homicidal/suicidal ideation. 8. Pyloric stenosis. 9. Depression. 10. Anxiety PAST SURGICAL HISTORY: 1. Tubal ligation. 2. Uterine tumor resection. 3. Appendectomy SOCIAL HISTORY: Patient denies any history of tobacco, alcohol or illegal drug use. \\ FAMILY HISTORY: Patient was unable to provide any details of family history. REVIEW OF SYSTEMS: Complete 10 point review systems is negative except as noted above PHYSICAL EXAMINATION: Patient is seen . is alert and oriented x 3. HEENT is WNL. Neck is supple. Lungs are clear to auscultation. Heart regular rate and rhythm without murmur. Abdomen is soft, non-tender to palpation with bowel sounds positive. Extremities with good ROM and strength equal bilaterally. No lower extremity ed fatimah. Pedal pulses are positive. Skin is warm and dry with no obvious rash or lesion. Neuro: grossly intact. Psych: ASSESSMENT AND PLAN: 1. Suicidal ideation with unsuccessful attempt. Continue the patient on suicide precautions, including a sitter at bedside. Would recommend psychiatric consult. Patient will probably require placement. Per recommendations of poison control. We'll keep the patient nothing by mouth and will call gastroenterology in the [facility] for consult. 2. Aspiration pneumonitis. Will start the patient on Zosyn. Encourage good pulmonary toilet. Oxygen available for use as needed. Will also add nebulizers as needed. 3. Seizures. Continue clobazam and zonisamide when patient is able to take by mouth again. Seizure precautions. 4. Major depressive disorder with schizoaffective disorder. Continue Prozac, olanzapine. Plan as noted above. 5. Intellectual disability. Continue supportive care. 6. DVT prophylaxis. Lovenox. CODE STATUS: Patient will be considered full code. She is unable to name the surrogate at this time. Patient is considered high risk of further deterioration including possible sepsis or septic shock. She is admitted for close observation and further evaluation and expected to remain at least one midnight. Vital Signs Vital Signs Date Time Temp Pulse Resp B/P (MAP) Pulse Ox O2 Delivery O2 Flow Rate FiO2 11/21/20 03:49 73 18 111/60 (77) 96 Nasal Cannula 1.0 11/20/20 20:11 98.3 Laboratory Data Labs 24H Laboratory Tests 2 11/20/20 20:09: Immature Granulocyte % (Auto) 0.3, Neutrophils (%) (Auto) 55.0, Lymphocytes (%) (Auto) 33.1, Monocytes (%) (Auto) 9.4H, Eosinophils (%) (Auto) 1.8, Basophils (%) (Auto) 0.4, Neutrophils # (Auto) 6.3, Lymphocytes # (Auto) 3.8, Monocytes # (Auto) 1.1H, Eosinophils # (Auto) 0.2, Basophils # (Auto) 0.0, Nucleated Red Blood Cells % (auto) 0.0, Anion Gap 9, Glomerular Filtration Rate > 60.0, Calcium Level 8.6, Total Bilirubin 0.2, Direct Bilirubin < 0.1, Aspartate Amino Transf (AST/SGOT) 15, Alanine Aminotransferase (ALT/SGPT) 21, Alkaline Phosphatase 121H, Total Creatine Kinase 159, Total Protein 7.5, Albumin 3.8, Albumin/Globulin Ratio 1.0L, Thyroid Stimulating Hormone (TSH) 5.640H, Human Chorionic Gonadotropin, Qual NEGATIVE, Salicylates Level < 1.7L, Acetaminophen Level < 2.0L, Ethyl Alcohol Level < 0.003, Coronavirus (COVID-19)(PCR) NEGATIVE, Influenza Type A (RT-PCR) NEGATIVE, Influenza Type B (RT-PCR) NEGATIVE, Respiratory Syncytial Virus (PCR) NEGATIVE 11/20/20 20:22: Bedside Glucose (Misc Panel) 100 CBC/BMP Laboratory Tests 11/20/20 20:09 Home Medications Scheduled Atorvastatin Calcium (Lipitor) 20 Mg Tab, 20 MG PO DAILY Azelastine HCl (Azelastine HCl) 0.05% 6ML Drops, 1 DROP OU BID Calcium Carbonate/Vitamin D3 (Calcium 600-Vit D3 2,500 Sftgl) 1 Each Capsule, 1 CAP PO BID Clobazam (Onfi) 10 Mg Tablet, 15 MG PO BID Fluoxetine HCl (Prozac) 20 Mg Capsule, 60 MG PO DAILY Levothyroxine Sodium (Levothyroxine Sodium) 25 Mcg Tablet, 25 MCG PO DAILY Olanzapine (Olanzapine) 10 Mg Tablet, 15 MG PO QHS for psychosis Zonisamide (Zonisamide) 100 Mg Cap, 200 MG PO BID Allergies Coded Allergies: divalproex sodium (Verified Allergy, Severe, 11/02/20) MOTHER REPORTS HYPER-AMMONIA LEVELS WITHIN TWO DAYS OF USE AT [facility] SEPTEMBER 2020 Cephalosporins (Verified Allergy, Intermediate, HIVES, 03/28/20) cefaclor (Verified Allergy, Unknown, 07/12/19) lamotrigine (Verified Adverse Reaction, Severe, SJS, 07/12/19) A-FIB/CHADSVASC A-FIB History Current/History of A-Fib/PAF?: No DIONNE TILLEY Nov 21, 2020 04:11
[2020-11-21 04:33] LABS: AMPHETAMINES LEVEL URINE NEGATIVE (NEGATIVE); BARBITURATES URINE NEGATIVE (NEGATIVE); BENZODIAZEPINES URINE POSITIVE (NEGATIVE); CANNABINOIDS URINE NEGATIVE (NEGATIVE); COCAINE METABOLITE URINE NEGATIVE (NEGATIVE); METHADONE URINE NEGATIVE (NEGATIVE); OPIATES URINE NEGATIVE (NEGATIVE); PHENCYCLIDINE URINE NEGATIVE (NEGATIVE)
[2020-11-21] MEDS ORDERED: CALC600T64 PO (06:20)
[2020-11-21] MEDS ORDERED: CHLOR50TA PO (06:20)
[2020-11-21] MEDS: PIPERACILLIN/TAZOBACTAM SOD 3.375 GM in D5W MINI-BAG PLUS 50 ML IV SCH ×3 (06:24→18:20)
[2020-11-21 06:56] LABS: HEMATOCRIT 37.6 % (36.0-47.0); HEMOGLOBIN 11.7 g/dl (12.0-15.5); MEAN CORPUSCULAR HEMOGLOBIN 29.5 pg (27.0-33.0); MEAN CORPUSCULAR HGB CONC 31.1 g/dl (32.0-36.5); MEAN CORPUSCULAR VOLUME 94.7 fl (80.0-96.0); PLATELET COUNT, AUTOMATED 203 10^3/uL (150-450); RED BLOOD COUNT 3.97 10^6/uL (4.00-5.40)
[2020-11-21 07:22] LABS: BLOOD UREA NITROGEN 17 MG/DL (7-18); CALCIUM LEVEL 7.6 MG/DL (8.5-10.1); CARBON DIOXIDE LEVEL 27 MEQ/L (21-32); CHLORIDE LEVEL 111 MEQ/L (98-107); CREATININE FOR GFR 0.73 MG/DL (0.55-1.30); GLOMERULAR FILTRATION RATE > 60.0 (>60); GLUCOSE, FASTING 90 MG/DL (70-100); POTASSIUM SERUM 3.7 MEQ/L (3.5-5.1); SODIUM LEVEL 141 MEQ/L (136-145)
[2020-11-21 08:25] VITALS: BP 119/74
[2020-11-21] MEDS: ENOXAPARIN 40MG/0.4ML SYRINGE (J1650 PER 10MG) SC SCH (08:49)
--- NOTE | 2020-11-21 11:16 | ECGEPIP ---
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
--- NOTE | 2020-11-21 11:33 | IPNPDOC ---
Text Note Date of Service The patient was seen on 11/21/20. NOTE SUBJECTIVE: -no acute events overnight PHYSICAL EXAMINATION: Vitals: see below General: NAD HEENT: NCAT, EOMI, MMM neck: supple Pulm: CTAB Cardiac: RRR, no m/r/g Abd: Benign examination with normoactive sounds, soft, NTND Ext: WWP, no LE edema Psych: AOx3, depressed mood ASSESSMENT: 35 yo W with schizoaffective disorder and prior admissions for suicide attempt who was brought in after drinking a bottle of lysol liquid soap and had N/V that has since remitted now. Suicidal ideation with unsuccessful attempt. -Continue the patient on suicide precautions, including a sitter at bedside. -Will get psychiatric consult when medical cleared -Per recommendations of poison control, will keep NPO -->discussed history and no symptoms with benign exam with surgery --> will get barium swallow with water soluble contrast. Aspiration pneumonitis c/f PNA: -Oxygen available for use as needed. -nebulizers as needed. -will switch from zosyn to unasyn with plan for 5d of augmentin for aspiration coverage. History of Seizures. -Continue clobazam and zonisamide. -Seizure precautions. Major depressive disorder with schizoaffective disorder. -Continue Prozac, olanzapine. -Psych consult when medically cleared Intellectual disability. -Continue supportive care. DVT prophylaxis. Lovenox. VS,Fishbone, I+O VS, Fishbone, I+O Laboratory Tests 11/20/20 20:09 11/21/20 06:46 Vital Signs Date Time Temp Pulse Resp B/P (MAP) Pulse Ox O2 Delivery O2 Flow Rate FiO2 11/21/20 08:25 97.3 79 18 119/74 (89) 95 Nasal Cannula 2.0 I&O- Last 24 Hours up to 6 AM 11/21/20 06:00 Intake Total 1000 ml Balance 1000 ml ELEANOR VILLEGAS MD Nov 21, 2020 10:04
[2020-11-21 14:00] VITALS: BP 120/76
[2020-11-21] MEDS ORDERED: GASTROGRAFIN SOLUTION 30ML (Q9963) As Ordered ONE (15:12)
--- NOTE | 2020-11-21 16:53 | REP ---
INDICATION: drank lysol, potentially caustic, asymptomatic. COMPARISON: None. TECHNIQUE: This procedure was performed under the direct supervision of Dr. Alva. Images were reviewed with Dr. Alva. A 50 50 solution of Gastrografin and water was administered.. A combination of fluoroscopy, spot films and last image hold technology was utilized. 0.8 minutes of fluoro time was utilized for this procedure. FINDINGS: A single view PA chest x-ray is submitted as a ribbon inker film. There is no change compared to a previous chest x-ray performed earlier today. The oral and pharyngeal stages of deglutition are unremarkable. Esophageal transport is prompt and efficient and there is no esophagitis, stricture, mucosal ring, or hiatal hernia. There is no evidence of extravasation or erosion. There is a small sliding-type hiatal hernia. Gastroesophageal reflux is not demonstrated on this examination. IMPRESSION: Gastrografin esophagram examination within normal limits. There is no evidence of erosion or extravasation. <Electronically signed by Ankur Ladd > 11/21/20 1648 <Electronically signed by Stephane Alva > 11/21/20 1652
[2020-11-21] MEDS ORDERED: PILL CUTTER 1 EACH XX PRN (17:05)
[2020-11-21 18:00] VITALS: BP 138/70
[2020-11-21] MEDS: ATORVASTATIN 20 MG TAB PO SCH (18:19)
[2020-11-21] MEDS: FLUoxetine 20 MG CAP PO SCH (18:20)
[2020-11-21] MEDS: ZONISAMIDE 100 MG CAP (ZONEGRAN) PO SCH (21:06)
[2020-11-21] MEDS: chlorproMAZINE 25 MG TABLET PO SCH (21:06)
[2020-11-21 22:00] VITALS: BP 118/76
[2020-11-22] MEDS: PIPERACILLIN/TAZOBACTAM SOD 3.375 GM in D5W MINI-BAG PLUS 50 ML IV SCH ×3 (00:18→12:00)
[2020-11-22 02:00] VITALS: BP 112/69
[2020-11-22 06:00] VITALS: BP 112/69
[2020-11-22] MEDS ORDERED: LEVOTHYROXINE 25MCG TABLET (0.025MG) PO SCH (06:00)
[2020-11-22] MEDS: ATORVASTATIN 20 MG TAB PO SCH (09:15)
[2020-11-22] MEDS: FLUoxetine 20 MG CAP PO SCH (09:16)
[2020-11-22] MEDS: chlorproMAZINE 25 MG TABLET PO SCH (09:16)
[2020-11-22] MEDS: ENOXAPARIN 40MG/0.4ML SYRINGE (J1650 PER 10MG) SC SCH (09:17)
[2020-11-22] MEDS: ZONISAMIDE 100 MG CAP (ZONEGRAN) PO SCH (09:17)
--- NOTE | 2020-11-22 11:37 | MHCRPDOC ---
[facility] Consultation Consultation DATE OF CONSULTATION: 11/22/20 CONSULTATION REQUESTED BY: REASON FOR CONSULTATION: 35-year-old single female with extensive psychiatric history, admitted to medicine after drinking a bottle of liquid soap intentionally resulting in aspiration pneumonia. Patient is medically stabilized. Psychiatric consult called to evaluate lethality. Patient stated that she drank the soap because she was upset with the voices of the demon, although this has been the excuse or the reason of her. Numerous previous admissions and ER visits. She is now denying any command hallucination and is not able to elaborate on the hallucination or preoccupation with the demon, but maintains that she does not feel safe to go home. . RELEVANT HISTORY: Numerous inpatient admissions and emergency room visits with the same complaint.. PAST PSYCHIATRIC HISTORY: Two-year history of a repeated admissions and a history of poor compliance. PAST MEDICAL HISTORY: FAMILY HISTORY: Parents are , but they are both invested and supportive Mother: Father: Siblings: Children: PERSONAL AND SOCIAL HISTORY: The patient was born and raised in [place]. Resides in: [place] Marital Status: S Single Children: Employment: SUBSTANCE ABUSE HISTORY: No history of substance abuse Smoking: ETOH: Illicit Drugs: LEGAL HISTORY: . No known legal history MENTAL STATUS EXAMINATION: Patient is a 35-year old female, who is in control and in no acute distress. Speech is relevant, but not productive. Language skills are fair. Thought processes including: Relevant. Thought content: Reports feeling anxious and fearful. Abstract reasoning, and computation: poor. Description of associations: Not spontaneous . Description of abnormal or psychotic thoughts: Reports auditory hallucination and fear of demon. Judgment: poor. Insight: poor. Orientation to , oriented. Recent and remote memory: Unimpaired. Attention span and concentration: poor. Language: . Fund of knowledge: . Mood: Moderately anxious and depressed. Affect: Blunted. DIAGNOSIS: 1. . Schizoaffective disorder, personality disorder, mixed PLAN: 1. . Will transfer to psychiatry for stabilization. On 939 status 2. . Vital Signs Vital Signs Date Time Temp Pulse Resp B/P (MAP) Pulse Ox O2 Delivery O2 Flow Rate FiO2 11/22/20 06:00 98.2 90 18 112/69 (83) 97 Nasal Cannula 2.0 Laboratory Data 24H Labs Laboratory Tests 2 11/21/20 11:47: Procalcitonin <0.05 Home Medications Current Medications Current Medications Medications (Trade) Dose Ordered Sig/Jonathan Route PRN Reason Start Time Stop Time Status Last Admin Dose Admin Acetaminophen (Tylenol Tab) 650 mg Q4H PRN PO MILD PAIN or TEMP > 101 11/21/20 03:55 Al Hydrox/Mg Hydrox/Simethicone (Mylanta) 30 ml DAILY PRN PO DYSPEPSIA 11/21/20 03:55 Atorvastatin Calcium (Lipitor) 20 mg DAILY PO 11/21/20 09:00 11/22/20 09:15 Chlorpromazine HCl (Thorazine) 50 mg BID PO 11/21/20 21:00 11/22/20 09:16 Clobazam (Onfi) 15 mg BID PO 11/21/20 21:00 11/22/20 09:16 Enoxaparin Sodium (Lovenox) 40 mg DAILY SC 11/21/20 09:00 11/22/20 09:17 Fluoxetine HCl (PROzac) 60 mg DAILY PO 11/21/20 09:00 11/22/20 09:16 Home Med (Med Rec Complete!) ASDIRECTED XX 11/21/20 06:20 11/21/20 06:23 DC Levothyroxine Sodium (Synthroid) 25 mcg DAILY@0600 PO 11/22/20 06:00 11/22/20 05:34 Magnesium Hydroxide (Milk Of Magnesia) 30 ml DAILY PRN PO CONSTIPATION 11/21/20 03:55 Piperacillin Sod/ Tazobactam Sod 3.375 gm/Dextrose 50 ml @ 50 mls/hr Q6H IV 11/21/20 06:00 11/22/20 05:34 Sodium Chloride 1,000 ml @ 100 mls/hr Q10H IV 11/21/20 03:55 11/21/20 16:58 DC 11/21/20 04:49 Zonisamide (Zonegran) 200 mg BID PO 11/21/20 21:00 11/22/20 09:17 Scheduled Atorvastatin Calcium (Lipitor) 20 Mg Tab, 20 MG PO DAILY, (Reported) Azelastine HCl (Azelastine HCl) 0.05% 6ML Drops, 1 DROP OU BID, (Reported) Calcium Carbonate/Vitamin D3 (Calcium 600-Vit D3 400 Tablet) 1 Each Tablet, 1 TAB PO BID, (Reported) Chlorpromazine HCl (Chlorpromazine HCl) 50 Mg Tablet, 50 MG PO BID, (Reported) Clobazam (Onfi) 10 Mg Tablet, 15 MG PO BID, (Reported) Fluoxetine HCl (Prozac) 20 Mg Capsule, 60 MG PO DAILY, (Reported) Levothyroxine Sodium (Levothyroxine Sodium) 25 Mcg Tablet, 25 MCG PO DAILY, (Reported) Zonisamide (Zonisamide) 100 Mg Cap, 200 MG PO BID, (Reported) Allergies Coded Allergies: divalproex sodium (Verified Allergy, Severe, 11/02/20) MOTHER REPORTS HYPER-AMMONIA LEVELS WITHIN TWO DAYS OF USE AT [facility] SEPTEMBER 2020 Cephalosporins (Verified Allergy, Intermediate, HIVES, 03/28/20) cefaclor (Verified Allergy, Unknown, 07/12/19) lamotrigine (Verified Adverse Reaction, Severe, SJS, 07/12/19) TRINA REYES M.D. Nov 22, 2020 11:37
--- NOTE | 2020-11-22 12:20 | DS.PDOC ---
Discharge Summary General Date of Admission Nov 20, 2020 at 19:50 Date of Discharge 11/22/2020 Attending Physician: ELEANOR VILLEGAS MD Discharge Summary PROCEDURES PERFORMED DURING STAY: None ADMITTING DIAGNOSES: Aspiration pneumonitis DISCHARGE DIAGNOSES: Aspiration pneumonitis with transient hypoxemia Lysol soap ingestion in attempt to commit suicide Schizoaffective disorder with depression Intellectual developmental disability. Speech impediment. History of panic attacks Complex seizure disorder. History of pyloric stenosis. Depression. Anxiety COMPLICATIONS/CHIEF COMPLAINT: Aspiration Pneumontis. HISTORY OF PRESENT ILLNESS: 35-year-old W with a history of schizoaffective disorder who was [facility] after a suicide attempt. She was brought back to the ER after she consumed a full bottle Lysol dish soap reporting "the demon told me to do it". HOSPITAL COURSE: Upon arrival in the ER, she was nauseous and vomiting and complaining of abdominal pain. Chest x-ray showed atelectasis or infiltrate secondary to aspiration pneumonitis. She was noted to be hypoxic on room air and was started on oxygen. Poison control was contacted and originally advised for close observation for 6 hours but later recommended the patient be kept nothing by mouth until she can be evaluated by gastroenterology. She did have a mild elevation of white blood cell count 11.4. She was placed on empiric zosyn and given that there was no GI coverage, surgery was consulted and recommended a barium esophagram that was grossly normal except for a small hiatal hernia with no evidence of esophageal damage or extravasation of contrast etc. She was resumed on a regular diet without complications. Her symptoms resolved, and she was evaluated by psychiatry and deemed appropriate for [facility] admission. DISCHARGE MEDICATIONS: Please see below. ALLERGIES: Please see below. PHYSICAL EXAMINATION ON DISCHARGE: VITAL SIGNS: Please see below. General: NAD HEENT: NCAT, EOMI, MMM neck: supple Pulm: CTAB Cardiac: RRR, no m/r/g Abd: Benign examination with normoactive sounds, soft, NTND Ext: WWP, no LE edema Psych: AOx3, depressed mood LABORATORY DATA: Please see below. IMAGING: CXR: Lungs: The lung volumes are low. There is left basilar atelectasis or consolidation. Pleural spaces: Unremarkable. No pleural effusion. No pneumothorax. Heart/Mediastinum: The cardiac silhouette is magnified by the AP portable technique and low lung volumes. The mediastinal contours are unremarkable. Bones/joints: Unremarkable. Gastrointestinal tract: There is gaseous distention of the stomach. IMPRESSION: Left basilar atelectasis or consolidation. barium esophagram: A single view PA chest x-ray is submitted as a programming coordinator film. There is no change compared to a previous chest x-ray performed earlier today. The oral and pharyngeal stages of deglutition are unremarkable. Esophageal tr ansport is prompt and efficient and there is no esophagitis, stricture, mucosal ring, or hiatal hernia. There is no evidence of extravasation or erosion. There is a small sliding-type hiatal hernia. Gastroesophageal reflux is not demonstrated on this examination. IMPRESSION: Gastrografin esophagram examination within normal limits. There is no evidence of erosion or extravasation. PROGNOSIS: Excellent with appropriate psychiatric optimization ACTIVITY: As tolerated DIET: Regular DISCHARGE PLAN: discharge to [facility] DISPOSITION: [facility] DISCHARGE INSTRUCTIONS: Discharge to [facility] ITEMS TO FOLLOWUP ON ON OUTPATIENT: Psychiatric evaluation and treatment DISCHARGE CONDITION: Stable TIME SPENT ON DISCHARGE: 40 minutes. Vital Signs/I&Os Vital Signs Date Time Temp Pulse Resp B/P (MAP) Pulse Ox O2 Delivery O2 Flow Rate FiO2 11/22/20 02:00 97.7 93 18 112/69 (83) 95 Nasal Cannula 2.0 I&O- Last 24 Hours up to 6 AM 11/22/20 06:00 Intake Total 1180 ml Output Total 0 ml Balance 1180 ml Laboratory Data Labs 24H Laboratory Tests 2 11/21/20 11:47: Procalcitonin <0.05 Discharge Medications Scheduled Atorvastatin Calcium (Lipitor) 20 Mg Tab, 20 MG PO DAILY, (Reported) Azelastine HCl (Azelastine HCl) 0.05% 6ML Drops, 1 DROP OU BID, (Reported) Calcium Carbonate/Vitamin D3 (Calcium 600-Vit D3 400 Tablet) 1 Each Tablet, 1 TAB PO BID, (Reported) Chlorpromazine HCl (Chlorpromazine HCl) 50 Mg Tablet, 50 MG PO BID, (Reported) Clobazam (Onfi) 10 Mg Tablet, 15 MG PO BID, (Reported) Fluoxetine HCl (Prozac) 20 Mg Capsule, 60 MG PO DAILY, (Reported) Levothyroxine Sodium (Levothyroxine Sodium) 25 Mcg Tablet, 25 MCG PO DAILY, (Reported) Zonisamide (Zonisamide) 100 Mg Cap, 200 MG PO BID, (Reported) Allergies Coded Allergies: divalproex sodium (Verified Allergy, Severe, 11/02/20) MOTHER REPORTS HYPER-AMMONIA LEVELS WITHIN TWO DAYS OF USE AT [facility] SEPTEMBER 2020 Cephalosporins (Verified Allergy, Intermediate, HIVES, 03/28/20) cefaclor (Verified Allergy, Unknown, 07/12/19) lamotrigine (Verified Adverse Reaction, Severe, SJS, 07/12/19) ELEANOR VILLEGAS MD Nov 22, 2020 07:40
[2020-11-22 14:00] VITALS: BP 119/78
== END 2020-11-22 15:30 ==
LOC: M ED 19:49 → M ED INP 19:50 → M MS5PR 11-21 08:25 → M PSY 11-22 11:16 → M MS5PR 11-22 11:35
PROVIDERS: ADMIT Internal Medicine; ATTEND Psychiatry & Neurology Psychiatry
DX: J69.8 Pneumonitis due to inhalation of other solids and liquids (principal); T14.91XA Suicide attempt, initial encounter; T55.1X2A Toxic effect of detergents, intentional self-harm, initial encounter; R09.02 Hypoxemia; G40.909 Epilepsy, unspecified, not intractable, without status epilepticus; F79 Unspecified intellectual disabilities; R47.9 Unspecified speech disturbances; F25.1 Schizoaffective disorder, depressive type; F41.9 Anxiety disorder, unspecified; Z79.899 Other long term (current) drug therapy; Z88.8 Allergy status to other drugs, medicaments and biological substances; Z88.1 Allergy status to other antibiotic agents; Y92.89 Other specified places as the place of occurrence of the external cause

== ENCOUNTER 2020-11-22 11:25 | Inpatient (IN) | payer MEDICARE, MEDICAID ==
[~2020-11-22] VITALS: Ht 165.1 cm; Wt 96.5 kg
[~2020-11-22 11:25] MED LIST changes: +CALC600T64 PO; -OLAN10TA2 PO; -OLAN15TA PO; +OLAN15TA13 PO; +OLAN1TAB20 PO
[2020-11-22] MEDS ORDERED: traZODone 50 MG TAB PO PRN (11:35)
[2020-11-22] MEDS ORDERED: ACETAMINOPHEN TAB 650MG DOSE (2X325MG) PO PRN (11:35)
[2020-11-22] MEDS ORDERED: MAALOX 30 ML SUSP *UDC PO PRN (11:35)
[2020-11-22] MEDS ORDERED: MOM 30ML SUSPENSION UDC PO PRN (11:35)
[2020-11-22 15:43] VITALS: BP 128/60
[2020-11-22] MEDS: chlorproMAZINE 25 MG TABLET PO SCH (21:15)
[2020-11-22] MEDS: PILL CUTTER 1 EACH XX PRN (21:15)
[2020-11-22] MEDS: ZONISAMIDE 100 MG CAP (ZONEGRAN) PO SCH (21:15)
[2020-11-23] MEDS: LEVOTHYROXINE 25MCG TABLET (0.025MG) PO SCH (05:25)
[2020-11-23 06:27] VITALS: BP 101/58
[2020-11-23] MEDS: ATORVASTATIN 20 MG TAB PO SCH (08:31)
[2020-11-23] MEDS: chlorproMAZINE 25 MG TABLET PO SCH ×2 (08:31→21:03)
[2020-11-23] MEDS: ZONISAMIDE 100 MG CAP (ZONEGRAN) PO SCH ×2 (08:31→21:02)
[2020-11-23] MEDS: FLUoxetine 20 MG CAP PO SCH (08:31)
--- NOTE | 2020-11-23 11:15 | IPNPDOC ---
Text Note Date of Service The patient was seen on 11/23/20. NOTE SUBJECTIVE: -no acute events since arriving to the [facility] PHYSICAL EXAMINATION: Vitals: see below General: NAD HEENT: NCAT, EOMI, MMM neck: supple Pulm: CTAB Cardiac: RRR, no m/r/g Abd: Benign examination with normoactive sounds, soft, NTND Ext: WWP, no LE edema Psych: AOx3, depressed mood ASSESSMENT: 35 yo W with schizoaffective disorder and prior admissions for suicide attempt who was brought in after drinking a bottle of lysol liquid soap c/b N/V that has now resolved and is now admitted to [facility] for psychiatric evaluation and management. Suicidal ideation with unsuccessful attempt. -Per recommendations of poison control, consulted surgery that recommended a barium esophagram that was wnl with a noted hiatal hernia. Resumed on a regular diet. -Psych plan per primary team History of Seizures. -Continue clobazam and zonisamide. -Seizure precautions. Major depressive disorder with schizoaffective disorder. -Plan per psych team Intellectual disability. -Continue supportive care. DVT prophylaxis: ambulatory Medicine will sign off at this time VS,Fishbone, I+O VS, Fishbone, I+O Vital Signs Date Time Temp Pulse Resp B/P (MAP) Pulse Ox O2 Delivery O2 Flow Rate FiO2 11/23/20 06:27 99.3 83 18 101/58 (72) 98 Room Air ELEANOR VILLEGAS MD Nov 23, 2020 09:32
--- NOTE | 2020-11-23 12:53 | MHHPEPDOC ---
General Date Of Admission: Nov 23, 2020 Legal Status: 9.39 Chief Complaint "[I drank a bottle of soap]. History of Present Illness HISTORY OF THE PRESENT ILLNESS: Patient is a 35 -year-old , female, who [has a long psychiatric history with the repeated admissions. She was admitted to medicine after drinking a bottle of liquid soap in her room as a suicidal gesture. As usual patient claims that she was hearing voices of devil telling her to kill herself, although she is saying this without any anxiety, fear, or any concerns. On the unit. Patient is very competent and good control and stated that she just wants to be helped. She is not reporting any other delusional thinking and denies any clear precipitant and denies any new stressors. Patient has been showing this behavior almost constant since last year, resulting in repeated emergency room visits and brief inpatient stay without ever showing any serious psychotic symptoms or serious suicidal attempt. It appears that patient is easily overwhelmed by her current living arrangement where she is expected to be self-sufficient in her own apartment.]. Psychiatric Review of Systems Depression (2 or more weeks): depressed mood, suicidal thoughts, other (been having same complaint and same behavior since February 2020) Airam (4 or more days of): denies Psychosis: auditory hallucination (patient hasn't been complaining of same hallucination of a devil threatening her and telling her to kill herself without any other psychotic symptoms), visual hallucination, other (patient is claiming the same) PTSD: denies Anxiety: situational anxiety Past Psychiatric History Previous Psychiatric Diagnosis: . Repeated admissions since 2019, diagnosed with depressive disorder and schizoaffective disorder but also has intellectual disability, and probable underlying personality disorder Previous Psychiatric Admissions: . Repeated admissions with Psychiatric Follow-up: . Repeated gestures of suicide Psychiatric medications: . Past Medical History Medical Problems Has a seizure disorder. Most recently was linked with Dr. Tom, who I spoke with today. They believe her seizure is in good control and does not believe the sei zure is the cause of her mental status change Head Injury: No Seizures: Yes Hospitalizations: No Surgeries: No Family Medical/Psychiatric HX Medical Problems Noncontributory Addiction History denies Social History Childhood: . Unremarkable Abuse/Trauma:. No history of abuse Current Living Situation: . Lives alone with her mother having close monitoring Education: . Employment: . On SSI Social Support: . The family Legal: . No legal history. No history of violence Marital: . Mental Status Examination General Appearance: appears stated age Build: average Demeanor: average Eye Contact: average Activity: average Behavior: cooperative Speech: slow, low in volume, non-spontaneous Mood: depressed Affect: constricted, appropriate, congruent Thought Process: logical/linear, other (. Not very productive and not sponta neous in her responses) Thought Content (Delusions): none reported Thought Content (Other): none reported Thought Content (Aggressive): none reported Perception (Hallucinations): auditory, other (. Patient repeats the same complain of auditory hallucinations) Perception (Other): none reported Cognition(Intelligence Est.): borderline Oriented: Awake, Alert, Oriented times three Insight: poor Judgment: Poor Psychosis: Denies Diagnoses Depressive disorder NOS. Rule out schizoaffective disorder, borderline intellectual ability and personality disorder, mixed A-FIB/CHADSVASC A-FIB History Current/History of A-Fib/PAF?: No Current PO Anticoag Therapy: No Age/Risk Factor Scoring CHADSVASC: CHADSVASC Response (Comments) Value Gender Risk Factor Female 1 Hx of CHF No 0 Hx of HTN No 0 Hx of Stroke/TIA/or VTE No 0 Hx of Diabetes No 0 Hx of Vascular Disease No 0 Total 1 Treatment Treatment ordered: NONE Assessment Underlying problem is her maladaptive behavior, especially with her current living situation. The patient is clearly not capable of maintaining her own residence without any supervision or support and clearly need of supportive housing arrangement Initial Treatment Plan 1. Patient was admitted on a 9.39 status. 2. Complete history was obtained. 3. With patients permission, family will be contacted and database will be expanded. 4. Patients medication regimen will be reviewed and changed accordingly. 5. Patient will be provided with protected environment. 6. Patient will be treated with individual, group, and milieu therapies. 7. Patient will receive supportive psych-education. 8. Discharge planning will commence immediately. 9. Outpatient follow-up treatment will be strongly recommended. 10. The initial treatment plan will focus initially on: * Depression. * Risk for suicide. ESTIMATED LENGTH OF STAY: 5-7 DAYS. TIME SPENT COUNSELING AND COORDINATING INITIAL CARE: 40 minutes. Tobacco Cessation Screen If Patient is a Smoker Non-small Complete/Results docum. Vital Signs Vital Signs Date Time Temp Pulse Resp B/P (MAP) Pulse Ox O2 Delivery O2 Flow Rate FiO2 11/23/20 06:27 99.3 83 18 101/58 (72) 98 Room Air Medications Scheduled Atorvastatin Calcium (Lipitor) 20 Mg Tab, 20 MG PO DAILY, (Reported) Azelastine HCl (Azelastine HCl) 0.05% 6ML Drops, 1 DROP OU BID, (Reported) Calcium Carbonate/Vitamin D3 (Calcium 600-Vit D3 400 Tablet) 1 Each Tablet, 1 TAB PO BID, (Reported) Chlorpromazine HCl (Chlorpromazine HCl) 50 Mg Tablet, 50 MG PO BID, (Reported) Clobazam (Onfi) 10 Mg Tablet, 15 MG PO BID, (Reported) Fluoxetine HCl (Prozac) 20 Mg Capsule, 60 MG PO DAILY, (Reported) Levothyroxine Sodium (Levothyroxine Sodium) 25 Mcg Tablet, 25 MCG PO DAILY, (Reported) Zonisamide (Zonisamide) 100 Mg Cap, 200 MG PO BID, (Reported) Allergies Coded Allergies: divalproex sodium (Verified Allergy, Severe, 11/02/20) MOTHER REPORTS HYPER-AMMONIA LEVELS WITHIN TWO DAYS OF USE AT [facility] SEPTEMBER 2020 Cephalosporins (Verified Allergy, Intermediate, HIVES, 03/28/20) cefaclor (Verified Allergy, Unknown, 07/12/19) lamotrigine (Verified Adverse Reaction, Severe, SJS, 07/12/19) TRINA REYES M.D. Nov 23, 2020 12:53
[2020-11-23 18:24] VITALS: BP 118/58
[2020-11-24 06:00] VITALS: BP 104/59
[2020-11-24] MEDS: LEVOTHYROXINE 25MCG TABLET (0.025MG) PO SCH (06:52)
[2020-11-24] MEDS: ATORVASTATIN 20 MG TAB PO SCH (08:30)
[2020-11-24] MEDS: ZONISAMIDE 100 MG CAP (ZONEGRAN) PO SCH ×2 (08:31→21:06)
[2020-11-24] MEDS: chlorproMAZINE 25 MG TABLET PO SCH ×2 (08:31→21:06)
[2020-11-24] MEDS: FLUoxetine 20 MG CAP PO SCH (08:31)
--- NOTE | 2020-11-24 13:12 | MHIPNPDOC ---
[facility] Progress Note Progress Note DATE OF SERVICE: 11/24/20 HISTORY: According to previous notes: "Patient is a 35 -year-old , female, who [has a long psychiatric history with the repeated admissions. She was admitted to medicine after drinking a bottle of liquid soap in her room as a suicidal gesture. As usual patient claims that she was hearing voices of devil telling her to kill herself, although she is saying this without any anxiety, fear, or any concerns. On the unit. Patient is very competent and good control and stated that she just wants to be helped. She is not reporting any other delusional thinking and denies any clear precipitant and denies any new stressors. Patient has been showing this behavior almost constant since last year, resulting in repeated emergency room visits and brief inpatient stay without ever showing any serious psychotic symptoms or serious suicidal attempt. It appears that patient is easily overwhelmed by her current living arrangement where she is expected to be self-sufficient in her own apartment." VITAL SIGNS: See below. NEW TEST RESULTS: See below CURRENT MEDICATIONS: See below. MENTAL STATUS EXAMINATION: General Appearance: appears stated age, disheveled, unkempt, wearing hospital scrubs, not wearing shoes Build: average Demeanor: average Eye Contact: at times can be very intense as if she would be trying to be intimidating but most of the time is OK Activity: slow Behavior: cooperative Speech: slow, low in volume, non-spontaneous, not fluent, limited vocabulary, tends to be repetitive Mood: depressed Affect: constricted, appropriate, congruent Thought Process: [place]. Thought Content (Delusions): none reported Thought Content (Other): none reported Thought Content (Aggressive): none reported Perception (Hallucinations): auditory, other (. Patient repeats the same com plain of auditory hallucinations) Perception (Other): none reported Cognition(Intelligence Est.): borderline Oriented: Awake, Alert, Oriented to place, person and situation Insight: poor Judgment: Poor Psychosis: Denies Diagnoses Depressive disorder NOS. Rule out schizoaffective disorder. Borderline intellectual ability personality disorder, mixed ASSESSMENT: the patient was eating lunch in her room when I went to k to her. She said she was feeling better today but a couple of minutes later she becgan to complain about a stomachache that she says, has been present since she ingested a bottle of liquid soap 2 days ago. She has been in behaviral control until now, she says she is not suicidal, not homicidal but continues to report auditory hallucinations lthough she does not elaborate when I ask her what the voices are like. Will continue to monitor and ensure her safety. MANAGEMENT PLAN: As above TIME SPENT: 15 minutes. Vital Signs Vital Signs Date Time Temp Pulse Resp B/P (MAP) Pulse Ox O2 Delivery O2 Flow Rate FiO2 11/24/20 06:00 97.9 76 18 104/59 (74) 94 Room Air Current Medications Current Medications Medications (Trade) Dose Ordered Sig/Jonathan Route PRN Reason Start Time Stop Time Status Last Admin Dose Admin Acetaminophen (Tylenol Tab) 650 mg Q6HP PRN PO HEADACHE or MILD DISCOMFORT 11/22/20 11:35 Al Hydrox/Mg Hydrox/Simethicone (Mylanta) 30 ml Q4HP PRN PO HEARTBURN/INDIGESTION 11/22/20 11:35 Atorvastatin Calcium (Lipitor) 20 mg DAILY PO 11/23/20 09:00 11/24/20 08:30 Chlorpromazine HCl (Thorazine) 50 mg BID PO 11/22/20 21:00 11/24/20 08:31 Clobazam (Onfi) 15 mg BID PO 11/22/20 21:00 11/24/20 08:30 Fluoxetine HCl (PROzac) 60 mg DAILY PO 11/23/20 09:00 11/24/20 08:31 Levothyroxine Sodium (Synthroid) 25 mcg DAILY@06 PO 11/23/20 06:00 11/24/20 06:52 Magnesium Hydroxide (Milk Of Magnesia) 30 ml DAILYPRN PRN PO CONSTIPATION 11/22/20 11:35 Trazodone HCl (Desyrel) 50 mg QHSP PRN PO INSOMNIA 11/22/20 11:35 Zonisamide (Zonegran) 200 mg BID PO 11/22/20 21:00 11/24/20 08:31 Allergies Coded Allergies: divalproex sodium (Verified Allergy, Severe, 11/02/20) MOTHER REPORTS HYPER-AMMONIA LEVELS WITHIN TWO DAYS OF USE AT [facility] SEPTEMBER 2020 Cephalosporins (Verified Allergy, Intermediate, HIVES, 03/28/20) cefaclor (Verified Allergy, Unknown, 07/12/19) lamotrigine (Verified Adverse Reaction, Severe, SJS, 07/12/19) SAVANNAH RUBIN MD Nov 24, 2020 13:05
[2020-11-24 16:55] VITALS: BP 115/70
[2020-11-25] MEDS: LEVOTHYROXINE 25MCG TABLET (0.025MG) PO SCH (06:08)
[2020-11-25 07:02] VITALS: BP 132/76
[2020-11-25] MEDS: ATORVASTATIN 20 MG TAB PO SCH (08:08)
[2020-11-25] MEDS: chlorproMAZINE 25 MG TABLET PO SCH ×2 (08:08→21:07)
[2020-11-25] MEDS: FLUoxetine 20 MG CAP PO SCH (08:08)
[2020-11-25] MEDS: ZONISAMIDE 100 MG CAP (ZONEGRAN) PO SCH ×2 (08:09→21:06)
--- NOTE | 2020-11-25 15:07 | MHIPNPDOC ---
[facility] Progress Note Progress Note DATE OF SERVICE: 11/25/20 HISTORY: According to previous notes: "Patient is a 35 -year-old , female, who [has a long psychiatric history with the repeated admissions. She was admitted to medicine after drinking a bottle of liquid soap in her room as a suicidal gesture. As usual patient claims that she was hearing voices of devil telling her to kill herself, although she is saying this without any anxiety, fear, or any concerns. On the unit. Patient is very competent and good control and stated that she just wants to be helped. She is not reporting any other delusional thinking and denies any clear precipitant and denies any new stressors. Patient has been showing this behavior almost constant since last year, resulting in repeated emergency room visits and brief inpatient stay without ever showing any serious psychotic symptoms or serious suicidal attempt. It appears that patient is easily overwhelmed by her current living arrangement where she is expected to be self-sufficient in her own apartment." VITAL SIGNS: See below. NEW TEST RESULTS: See below CURRENT MEDICATIONS: See below. MENTAL STATUS EXAMINATION: General Appearance: appears stated age, disheveled, unkempt, wearing hospital scrubs, not wearing shoes Build: average Demeanor: average Eye Contact: good Activity: slow Behavior: cooperative Speech: slow, low in volume, non-spontaneous, non fluent Mood: sad, she says she "is not OK" Affect: constricted, appropriate, congruent Thought Process: [place]. Thought Content (Delusions): none reported Thought Content (Other): reports having suicidal thoughts about drinking "bad stuff" Thought Content (Aggressive): none reported Perception (Hallucinations): she says she hears voices telling her to drink liquid soap Perception (Other): none reported Cognition(Intelligence Est.): borderline Oriented: Awake, Alert, Oriented to place, person and situation Insight: poor Judgment: Poor Psychosis: Denies Diagnoses Depressive disorder NOS. Rule out schizoaffective disorder. Borderline intellectual ability personality disorder, mixed ASSESSMENT: the patient is going back to the old pattern of saying she is suicidal by drinking again "bad stuff". Seh is being monitored for safety, she has been taking her medications. MANAGEMENT PLAN: As above TIME SPENT: 15 minutes. Vital Signs Vital Signs Date Time Temp Pulse Resp B/P (MAP) Pulse Ox O2 Delivery O2 Flow Rate FiO2 11/25/20 07:02 98.2 88 18 132/76 (94) 95 Room Air Current Medications Current Medications Medications (Trade) Dose Ordered Sig/Jonathan Route PRN Reason Start Time Stop Time Status Last Admin Dose Admin Acetaminophen (Tylenol Tab) 650 mg Q6HP PRN PO HEADACHE or MILD DISCOMFORT 11/22/20 11:35 Al Hydrox/Mg Hydrox/Simethicone (Mylanta) 30 ml Q4HP PRN PO HEARTBURN/INDIGESTION 11/22/20 11:35 Atorvastatin Calcium (Lipitor) 20 mg DAILY PO 11/23/20 09:00 11/25/20 08:08 Chlorpromazine HCl (Thorazine) 50 mg BID PO 11/22/20 21:00 11/25/20 08:08 Clobazam (Onfi) 15 mg BID PO 11/22/20 21:00 11/25/20 08:08 Fluoxetine HCl (PROzac) 60 mg DAILY PO 11/23/20 09:00 11/25/20 08:08 Levothyroxine Sodium (Synthroid) 25 mcg DAILY@06 PO 11/23/20 06:00 11/25/20 06:08 Magnesium Hydroxide (Milk Of Magnesia) 30 ml DAILYPRN PRN PO CONSTIPATION 11/22/20 11:35 Trazodone HCl (Desyrel) 50 mg QHSP PRN PO INSOMNIA 11/22/20 11:35 Zonisamide (Zonegran) 200 mg BID PO 11/22/20 21:00 11/25/20 08:09 Allergies Coded Allergies: divalproex sodium (Verified Allergy, Severe, 11/02/20) MOTHER REPORTS HYPER-AMMONIA LEVELS WITHIN TWO DAYS OF USE AT [facility] SEPTEMBER 2020 Cephalosporins (Verified Allergy, Intermediate, HIVES, 03/28/20) cefaclor (Verified Allergy, Unknown, 07/12/19) lamotrigine (Verified Adverse Reaction, Severe, SJS, 07/12/19) SAVANNAH RUBIN MD Nov 25, 2020 14:58
[2020-11-26] MEDS: LEVOTHYROXINE 25MCG TABLET (0.025MG) PO SCH (06:12)
[2020-11-26] MEDS: ZONISAMIDE 100 MG CAP (ZONEGRAN) PO SCH ×2 (08:37→21:06)
[2020-11-26] MEDS: chlorproMAZINE 25 MG TABLET PO SCH ×2 (08:38→21:06)
[2020-11-26] MEDS: ATORVASTATIN 20 MG TAB PO SCH (08:38)
[2020-11-26] MEDS: FLUoxetine 20 MG CAP PO SCH (08:38)
--- NOTE | 2020-11-26 09:52 | MHIPNPDOC ---
[facility] Progress Note Progress Note DATE OF SERVICE: 11/26/20 The patient is in no acute distress, and maintaining good control and didn't show any acting out behavior. She is however very childish and somewhat regressed and not very productive. She was again taking chlorpromazine 50 mg twice a day even though she was discharged with the Zyprexa. On her last admission. She stated that her mother told her not to take Zyprexa and she has been feeling the same with the chlorpromazine and doesn't want to change the medicine. She is not showing any signs of gross psychosis does not appear to be hallucinating and does not appear to be preoccupied with delusional thinking and not talking about Demon or Devil. It appears that complaint of hearing voices are not of any psychotic nature.. Psychotic HISTORY: . VITAL SIGNS: See below. NEW TEST RESULTS: . CURRENT MEDICATIONS: See below. MENTAL STATUS EXAMINATION: Patient is a 35-year old female, who is in no acute distress. Speech: Is , not productive. Language skills are poor. Thought processes including: , Relevant, but not productive. Thought content: , Not expressing any delusional thinking and denies any suicidal thoughts. Abstract reasoning, and computation: poor. Description of associations: Relevant response but not productive. Description of abnormal or psychotic thoughts: Does not appear to be hallucinating. Judgment: poor. Insight: very poor. Orientation: Appears oriented. Recent and remote memory: poor. Attention span and concentration: poor. Language: . Fund of knowledge: . Mood: Doesn't appear seriously depressed. Affect: Blunted but appropriate. DIAGNOSES: 1. . Depressive disorder, NOS. Rule out schizoaffective disorder 2. . Intellectual limitations 3. . Personality disorder, mixed ASSESSMENT:The patient is in no acute distress and not presenting with any gross psychotic symptoms and is not showing any suicidal behavior MANAGEMENT PLAN: Observed with the supportive therapy. TIME SPENT: 15 minutes. Vital Signs Vital Signs Date Time Temp Pulse Resp B/P (MAP) Pulse Ox O2 Delivery O2 Flow Rate FiO2 11/25/20 07:02 98.2 88 18 132/76 (94) 95 Room Air Current Medications Current Medications Medications (Trade) Dose Ordered Sig/Jonathan Route PRN Reason Start Time Stop Time Status Last Admin Dose Admin Acetaminophen (Tylenol Tab) 650 mg Q6HP PRN PO HEADACHE or MILD DISCOMFORT 11/22/20 11:35 Al Hydrox/Mg Hydrox/Simethicone (Mylanta) 30 ml Q4HP PRN PO HEARTBURN/INDIGESTION 11/22/20 11:35 Atorvastatin Calcium (Lipitor) 20 mg DAILY PO 11/23/20 09:00 11/26/20 08:38 Chlorpromazine HCl (Thorazine) 50 mg BID PO 11/22/20 21:00 11/26/20 08:38 Clobazam (Onfi) 15 mg BID PO 11/22/20 21:00 11/26/20 08:37 Fluoxetine HCl (PROzac) 60 mg DAILY PO 11/23/20 09:00 11/26/20 08:38 Levothyroxine Sodium (Synthroid) 25 mcg DAILY@06 PO 11/23/20 06:00 11/26/20 06:12 Magnesium Hydroxide (Milk Of Magnesia) 30 ml DAILYPRN PRN PO CONSTIPATION 11/22/20 11:35 Trazodone HCl (Desyrel) 50 mg QHSP PRN PO INSOMNIA 11/22/20 11:35 Zonisamide (Zonegran) 200 mg BID PO 11/22/20 21:00 11/26/20 08:37 Allergies Coded Allergies: divalproex sodium (Verified Allergy, Severe, 11/02/20) MOTHER REPORTS HYPER-AMMONIA LEVELS WITHIN TWO DAYS OF USE AT [facility] SEPTEMBER 2020 Cephalosporins (Verified Allergy, Intermediate, HIVES, 03/28/20) cefaclor (Verified Allergy, Unknown, 07/12/19) lamotrigine (Verified Adverse Reaction, Severe, SJS, 07/12/19) TRINA REYES M.D. Nov 26, 2020 09:52
[2020-11-26] MEDS: PILL CUTTER 1 EACH XX PRN (21:07)
[2020-11-27] MEDS: LEVOTHYROXINE 25MCG TABLET (0.025MG) PO SCH (05:24)
[2020-11-27 06:51] VITALS: BP 104/61
--- NOTE | 2020-11-27 09:10 | MHIPNPDOC ---
[facility] Progress Note Progress Note DATE OF SERVICE: 11/27/20 Patient is sleeping and eating well and maintaining good control and has no new complaints. She is not reporting any hallucinations and she is not preoccupied w ith the demon that she was concerned with and does not appear to be grossly paranoid or delusional. She has not shown any dangerous or suicidal behavior. Appears very childish dependent and somewhat regressed HISTORY: . VITAL SIGNS: See below. NEW TEST RESULTS: . CURRENT MEDICATIONS: See below. MENTAL STATUS EXAMINATION: Patient is a 35-year old female, who is in no acute distress. Speech: Is , simplistic, not productive. Language skills are poor. Thought processes including: [place] answers with yes and no and not able to carry on any coherent conversation.. Thought content: Denies any current suicidal thoughts. Abstract reasoning, and computation: poor. Description of associations: Relevant. Description of abnormal or psychotic thoughts: Does not appear to be hallucinating or delusional. Judgment: poor. Insight: poor. Orientation: Is oriented. Recent and remote memory: No gross impairment. Attention span and concentration: . Language: . Fund of knowledge: . Mood: , Mildly anxious. Affect: Somewhat blunted but appropriate. DIAGNOSES: 1. . Depressive disorder, NOS 2. . Personality disorder, mixed 3. . Intellectual limitations ASSESSMENT:, No significant change in no acting out behavior MANAGEMENT PLAN: Patient probably needs supportive supervised living lluvia romero. She has been tried many times in the past but failed to do to report to the [facility] by her mother. We need to look at another attempt and tried to engage the mother for this effort. TIME SPENT: 15 minutes. Vital Signs Vital Signs Date Time Temp Pulse Resp B/P (MAP) Pulse Ox O2 Delivery O2 Flow Rate FiO2 11/27/20 06:51 98.2 85 16 104/61 (75) 98 Room Air Current Medications Current Medications Medications (Trade) Dose Ordered Sig/Jonathan Route PRN Reason Start Time Stop Time Status Last Admin Dose Admin Acetaminophen (Tylenol Tab) 650 mg Q6HP PRN PO HEADACHE or MILD DISCOMFORT 11/22/20 11:35 Al Hydrox/Mg Hydrox/Simethicone (Mylanta) 30 ml Q4HP PRN PO HEARTBURN/INDIGESTION 11/22/20 11:35 Atorvastatin Calcium (Lipitor) 20 mg DAILY PO 11/23/20 09:00 11/26/20 08:38 Chlorpromazine HCl (Thorazine) 50 mg BID PO 11/22/20 21:00 11/26/20 21:06 Clobazam (Onfi) 15 mg BID PO 11/22/20 21:00 11/26/20 21:06 Fluoxetine HCl (PROzac) 60 mg DAILY PO 11/23/20 09:00 11/26/20 08:38 Levothyroxine Sodium (Synthroid) 25 mcg DAILY@06 PO 11/23/20 06:00 11/27/20 05:24 Magnesium Hydroxide (Milk Of Magnesia) 30 ml DAILYPRN PRN PO CONSTIPATION 11/22/20 11:35 Trazodone HCl (Desyrel) 50 mg QHSP PRN PO INSOMNIA 11/22/20 11:35 Zonisamide (Zonegran) 200 mg BID PO 11/22/20 21:00 11/26/20 21:06 Allergies Coded Allergies: divalproex sodium (Verified Allergy, Severe, 11/02/20) MOTHER REPORTS HYPER-AMMONIA LEVELS WITHIN TWO DAYS OF USE AT [facility] SEPTEMBER 2020 Cephalosporins (Verified Allergy, Intermediate, HIVES, 03/28/20) cefaclor (Verified Allergy, Unknown, 07/12/19) lamotrigine (Verified Adverse Reaction, Severe, SJS, 07/12/19) TRINA REYES M.D. Nov 27, 2020 09:10
[2020-11-27] MEDS: FLUoxetine 20 MG CAP PO SCH (09:15)
[2020-11-27] MEDS: ZONISAMIDE 100 MG CAP (ZONEGRAN) PO SCH ×2 (09:15→20:54)
[2020-11-27] MEDS: ATORVASTATIN 20 MG TAB PO SCH (09:17)
[2020-11-27] MEDS: chlorproMAZINE 25 MG TABLET PO SCH ×2 (09:19→20:54)
[2020-11-27] MEDS: PILL CUTTER 1 EACH XX PRN (20:54)
[2020-11-28] MEDS: LEVOTHYROXINE 25MCG TABLET (0.025MG) PO SCH (05:41)
[2020-11-28 06:26] VITALS: BP 122/59
[2020-11-28] MEDS: ATORVASTATIN 20 MG TAB PO SCH (08:36)
[2020-11-28] MEDS: FLUoxetine 20 MG CAP PO SCH (08:36)
[2020-11-28] MEDS: chlorproMAZINE 25 MG TABLET PO SCH ×2 (08:36→21:09)
[2020-11-28] MEDS: ZONISAMIDE 100 MG CAP (ZONEGRAN) PO SCH ×2 (08:36→21:10)
[2020-11-28 19:19] VITALS: BP 115/69
[2020-11-29] MEDS: LEVOTHYROXINE 25MCG TABLET (0.025MG) PO SCH (06:05)
[2020-11-29 06:46] VITALS: BP 90/54
[2020-11-29] MEDS: ATORVASTATIN 20 MG TAB PO SCH (08:50)
[2020-11-29] MEDS: PILL CUTTER 1 EACH XX PRN (08:51)
[2020-11-29] MEDS: chlorproMAZINE 25 MG TABLET PO SCH ×2 (08:51→21:00)
[2020-11-29] MEDS: ZONISAMIDE 100 MG CAP (ZONEGRAN) PO SCH ×2 (08:51→21:00)
[2020-11-29] MEDS: FLUoxetine 20 MG CAP PO SCH (08:51)
--- NOTE | 2020-11-29 11:17 | MHIPNPDOC ---
[facility] Progress Note Progress Note DATE OF SERVICE: 11/29/20 Patient is cooperating with treatment and maintaining good control. She remains a somewhat childish for withdrawn and not offering any new complaints but has n ot shown any agitated or self mutilating behavior. When asked how she is feeling she would only say okay and not able to elaborate. She is somewhat blunted and not very spontaneous but does not appear to be hallucinating and has not expressed any delusional or bizarre paranoid ideas. She remains markedly regressed and very dependent but has no specific complaint to offer and is in no acute distress. She does not want medicine to be changed and she is comfortable with what she has and does not want any other medications. When asked about the reason for her repeated admissions she is looking at you with a blank stare and has no spontaneous response. It appears she is unable to leave and function alone and clearly needs supervised living arrangement. HISTORY:. VITAL SIGNS: See below. NEW TEST RESULTS:. CURRENT MEDICATIONS: See below. MENTAL STATUS EXAMINATION: Patient is a 35-year old female, who is in no acute distress. Speech: Is minimally productive. Language skills are poor. Thought processes including: Not productive not spontaneous. Thought content: Denies any new problems. Abstract reasoning, and computation: Poor. Description of associations: Not spontaneous. Description of abnormal or psychotic thoughts: Does not appear to be hallucinating and no gross delusions. Judgment: Poor. Insight: Poor. Orientation: Appears oriented. Recent and remote memory: No gross impairment. Attention span and concentration: Poor. Language:. Fund of knowledge: Below average. Mood: Reports feeling okay. Affect: Blunted but appropriate. DIAGNOSES: 1.. Depressive disorder NOS 2.. Personality disorder NOS 3.. Intellectual limitations ASSESSMENT: No changes in her behavior or mental status MANAGEMENT PLAN: She is clearly in need of the supervised supportive living. TIME SPENT: 20 minutes. Vital Signs Vital Signs Date Time Temp Pulse Resp B/P (MAP) Pulse Ox O2 Delivery O2 Flow Rate FiO2 11/29/20 06:46 98.3 71 16 90/54 (66) 96 Room Air Current Medications Current Medications Medications (Trade) Dose Ordered Sig/Jonathan Route PRN Reason Start Time Stop Time Status Last Admin Dose Admin Acetaminophen (Tylenol Tab) 650 mg Q6HP PRN PO HEADACHE or MILD DISCOMFORT 11/22/20 11:35 Al Hydrox/Mg Hydrox/Simethicone (Mylanta) 30 ml Q4HP PRN PO HEARTBURN/INDIGESTION 11/22/20 11:35 Atorvastatin Calcium (Lipitor) 20 mg DAILY PO 11/23/20 09:00 11/29/20 08:50 Chlorpromazine HCl (Thorazine) 50 mg BID PO 11/22/20 21:00 11/29/20 08:51 Clobazam (Onfi) 15 mg BID PO 11/22/20 21:00 11/29/20 08:52 Fluoxetine HCl (PROzac) 60 mg DAILY PO 11/23/20 09:00 11/29/20 08:51 Levothyroxine Sodium (Synthroid) 25 mcg DAILY@06 PO 11/23/20 06:00 11/29/20 06:05 Magnesium Hydroxide (Milk Of Magnesia) 30 ml DAILYPRN PRN PO CONSTIPATION 11/22/20 11:35 Trazodone HCl (Desyrel) 50 mg QHSP PRN PO INSOMNIA 11/22/20 11:35 Zonisamide (Zonegran) 200 mg BID PO 11/22/20 21:00 11/29/20 08:51 Allergies Coded Allergies: divalproex sodium (Verified Allergy, Severe, 11/02/20) MOTHER REPORTS HYPER-AMMONIA LEVELS WITHIN TWO DAYS OF USE AT [facility] SEPTEMBER 2020 Cephalosporins (Verified Allergy, Intermediate, HIVES, 03/28/20) cefaclor (Verified Allergy, Unknown, 07/12/19) lamotrigine (Verified Adverse Reaction, Severe, SJS, 07/12/19) TRINA REYES M.D. Nov 29, 2020 11:17
[2020-11-29 17:19] VITALS: BP 121/76
[2020-11-30 06:00] VITALS: BP 125/64
[2020-11-30] MEDS: LEVOTHYROXINE 25MCG TABLET (0.025MG) PO SCH (06:17)
[2020-11-30] MEDS: chlorproMAZINE 25 MG TABLET PO SCH ×2 (08:36→21:11)
[2020-11-30] MEDS: ATORVASTATIN 20 MG TAB PO SCH (08:36)
[2020-11-30] MEDS: FLUoxetine 20 MG CAP PO SCH (08:37)
[2020-11-30] MEDS: ZONISAMIDE 100 MG CAP (ZONEGRAN) PO SCH ×2 (08:37→21:11)
[2020-11-30] MEDS: PILL CUTTER 1 EACH XX PRN (08:39)
--- NOTE | 2020-11-30 09:04 | MHIPNPDOC ---
[facility] Progress Note Progress Note DATE OF SERVICE: 11/30/20 Patient is offering no new complaints except that she is having some difficulty with the roommate. Her behavior is in control but remains very childish depende nt and withdrawn. She is denying any preoccupation with the delusional thinking and denies hearing voices and is not showing any dangerous behavior but showing absolutely no insight and no motivation or initiative. HISTORY:. VITAL SIGNS: See below. NEW TEST RESULTS:. CURRENT MEDICATIONS: See below. MENTAL STATUS EXAMINATION: Patient is a 35-year old female, who is regressed withdrawn. Speech: Is not productive. Language skills are poor. Thought processes including: Relevant but not productive. Thought content: Not spontaneous and not productive. Abstract reasoning, and computation: Poor. Description of associations: Relevant. Description of abnormal or psychotic thoughts: Not reporting any hallucination or paranoia. Judgment: Poor. Insight: Poor. Orientation: Appears oriented. Recent and remote memory: No gross impairment. Attention span and concentration: Poor. Language:. Fund of knowledge: Very poor. Mood: Reports feeling okay. Affect: Blunted. DIAGNOSES: 1.. Depressive disorder NOS 2.. Personality disorder mixed 3.. Intellectual limitations ASSESSMENT: There is no acute psychotic symptoms and patient does not appear to be suicidal. She is however markedly regressed and showing very poor capacity to maintain her own living MANAGEMENT PLAN: Ms. supportive supervised living arrangement. TIME SPENT: 15 minutes. Vital Signs Vital Signs Date Time Temp Pulse Resp B/P (MAP) Pulse Ox O2 Delivery O2 Flow Rate FiO2 11/30/20 06:00 97.6 73 18 125/64 (84) 96 11/29/20 06:46 Room Air Current Medications Current Medications Medications (Trade) Dose Ordered Sig/Jonathan Route PRN Reason Start Time Stop Time Status Last Admin Dose Admin Acetaminophen (Tylenol Tab) 650 mg Q6HP PRN PO HEADACHE or MILD DISCOMFORT 11/22/20 11:35 Al Hydrox/Mg Hydrox/Simethicone (Mylanta) 30 ml Q4HP PRN PO HEARTBURN/INDIGESTION 11/22/20 11:35 Atorvastatin Calcium (Lipitor) 20 mg DAILY PO 11/23/20 09:00 11/30/20 08:36 Chlorpromazine HCl (Thorazine) 50 mg BID PO 11/22/20 21:00 11/30/20 08:36 Clobazam (Onfi) 15 mg BID PO 11/22/20 21:00 11/30/20 08:39 Fluoxetine HCl (PROzac) 60 mg DAILY PO 11/23/20 09:00 11/30/20 08:37 Levothyroxine Sodium (Synthroid) 25 mcg DAILY@06 PO 11/23/20 06:00 11/30/20 06:17 Magnesium Hydroxide (Milk Of Magnesia) 30 ml DAILYPRN PRN PO CONSTIPATION 11/22/20 11:35 Trazodone HCl (Desyrel) 50 mg QHSP PRN PO INSOMNIA 11/22/20 11:35 Zonisamide (Zonegran) 200 mg BID PO 11/22/20 21:00 11/30/20 08:37 Allergies Coded Allergies: divalproex sodium (Verified Allergy, Severe, 11/02/20) MOTHER REPORTS HYPER-AMMONIA LEVELS WITHIN TWO DAYS OF USE AT [facility] SEPTEMBER 2020 Cephalosporins (Verified Allergy, Intermediate, HIVES, 03/28/20) cefaclor (Verified Allergy, Unknown, 07/12/19) lamotrigine (Verified Adverse Reaction, Severe, SJS, 07/12/19) TRINA REYES M.D. Nov 30, 2020 09:04
[2020-11-30 18:37] VITALS: BP 132/77
[2020-12-01] VITALS (7 sets, daily range): BP systolic 101–137; BP diastolic 54–81
[2020-12-01] MEDS: LEVOTHYROXINE 25MCG TABLET (0.025MG) PO SCH (05:14)
[2020-12-01] MEDS: FLUoxetine 20 MG CAP PO SCH (08:23)
[2020-12-01] MEDS: ZONISAMIDE 100 MG CAP (ZONEGRAN) PO SCH ×3 (08:23→22:23)
[2020-12-01] MEDS: chlorproMAZINE 25 MG TABLET PO SCH ×3 (08:23→22:23)
[2020-12-01] MEDS: ATORVASTATIN 20 MG TAB PO SCH (08:24)
[2020-12-01] MEDS ORDERED: OLANZapine INTRAMUSCULAR 10MG VIAL IM STA (21:30)
[2020-12-01] MEDS ORDERED: LORazepam 2 MG/ML VIAL IM STA (21:30)
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
[2020-12-01] MEDS: PILL CUTTER 1 EACH XX PRN (22:24)
[2020-12-02] MEDS: LEVOTHYROXINE 25MCG TABLET (0.025MG) PO SCH (05:13)
[2020-12-02 05:48] VITALS: BP 103/59
[2020-12-02] MEDS: FLUoxetine 20 MG CAP PO SCH (09:22)
[2020-12-02] MEDS: ZONISAMIDE 100 MG CAP (ZONEGRAN) PO SCH ×2 (09:22→21:10)
[2020-12-02] MEDS: ATORVASTATIN 20 MG TAB PO SCH (09:23)
[2020-12-02] MEDS: chlorproMAZINE 25 MG TABLET PO SCH ×2 (09:23→21:10)
[2020-12-02] MEDS: BISACODYL 5 MG TAB PO SCH (09:23)
[2020-12-02 18:39] VITALS: BP 117/66
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
[2020-12-02] MEDS ORDERED: OLANZapine INTRAMUSCULAR 10MG VIAL IM STA (19:32)
[2020-12-02] MEDS ORDERED: LORazepam 2 MG/ML VIAL IM STA (19:32)
[2020-12-03 06:00] VITALS: BP 115/71
[2020-12-03] MEDS: LEVOTHYROXINE 25MCG TABLET (0.025MG) PO SCH (06:32)
[2020-12-03] MEDS: ZONISAMIDE 100 MG CAP (ZONEGRAN) PO SCH ×2 (08:34→21:04)
[2020-12-03] MEDS: ATORVASTATIN 20 MG TAB PO SCH (08:34)
[2020-12-03] MEDS: BISACODYL 5 MG TAB PO SCH (08:34)
[2020-12-03] MEDS: FLUoxetine 20 MG CAP PO SCH (08:34)
[2020-12-03] MEDS: chlorproMAZINE 25 MG TABLET PO SCH (08:35)
--- NOTE | 2020-12-03 10:13 | MHIPNPDOC ---
[facility] Progress Note Progress Note DATE OF SERVICE: 12/03/20 Patient had 2 episodes in the past 3 days where she became more aggressive and resisting and required physical restraint and extra medications. This morning s he is in better control and in varus. But claims that she was acting like that because she was afraid of the devil. She is expressing same complaint that she has been using for every single admissions in the past several months. Her affect remains quite blunted but also childish and regressed and does not appear really grossly delusional and is not showing any other thought disorder that would be consistent with a schizophrenia. In any case she has done better with the Zyprexa injection and controlling her agitation and is now willing to take oral Zyprexa. HISTORY:. VITAL SIGNS: See below. NEW TEST RESULTS:. CURRENT MEDICATIONS: See below. MENTAL STATUS EXAMINATION: Patient is a 35-year old female, who is in no acute distress. Speech: Is simplistic not very productive. Language skills are poor. Thought processes including: Preoccupied with her complaint of being afraid of the devil. Thought content: Complaining of paranoid fear. Abstract reasoning, and computation: Poor. Description of associations: Preoccupied. Description of abnormal or psychotic thoughts: Again complaining hearing voices of the devil although she does not show any other thought disorder. Judgment: Poor. Insight: Poor. Orientation: Appears oriented. Recent and remote memory:. Attention span and concentration:. Language:. Fund of knowledge:. Mood: Moderately anxious. Affect: Blunted inappropriate. DIAGNOSES: 1.. Depressive disorder NOS 2.. Personality disorder mixed 3.. Intellectual limitations ASSESSMENT: Been exhibiting more behavior problem MANAGEMENT PLAN: Start Zyprexa 10 mg twice a day. TIME SPENT: 12 minutes. Vital Signs Vital Signs Date Time Temp Pulse Resp B/P (MAP) Pulse Ox O2 Delivery O2 Flow Rate FiO2 12/03/20 06:00 98.9 80 18 115/71 (86) 95 Room Air Current Medications Current Medications Medications (Trade) Dose Ordered Sig/Jonathan Route PRN Reason Start Time Stop Time Status Last Admin Dose Admin Acetaminophen (Tylenol Tab) 650 mg Q6HP PRN PO HEADACHE or MILD DISCOMFORT 11/22/20 11:35 Al Hydrox/Mg Hydrox/Simethicone (Mylanta) 30 ml Q4HP PRN PO HEARTBURN/INDIGESTION 11/22/20 11:35 Atorvastatin Calcium (Lipitor) 20 mg DAILY PO 11/23/20 09:00 12/03/20 08:34 Bisacodyl (Dulcolax Tab) 10 mg DAILY PO 12/02/20 09:00 12/03/20 08:34 Chlorpromazine HCl (Thorazine) 50 mg BID PO 11/22/20 21:00 12/03/20 08:35 Clobazam (Onfi) 15 mg BID PO 11/22/20 21:00 12/03/20 08:35 Fluoxetine HCl (PROzac) 60 mg DAILY PO 11/23/20 09:00 12/03/20 08:34 Levothyroxine Sodium (Synthroid) 25 mcg DAILY@06 PO 11/23/20 06:00 12/03/20 06:32 Lorazepam (Ativan) 1 mg STAT STAT IM 12/01/20 21:30 12/01/20 21:34 DC 12/01/20 21:50 Lorazepam (Ativan) 1 mg STAT STAT IM 12/02/20 19:32 12/02/20 19:35 DC 12/02/20 19:45 Magnesium Hydroxide (Milk Of Magnesia) 30 ml DAILYPRN PRN PO CONSTIPATION 11/22/20 11:35 Olanzapine (Zyprexa Intramuscular) 10 mg STAT STAT IM 12/01/20 21:30 12/01/20 21:41 DC 12/01/20 21:50 Olanzapine (Zyprexa Intramuscular) 10 mg STAT STAT IM 12/02/20 19:32 12/02/20 19:35 DC 12/02/20 19:45 Trazodone HCl (Desyrel) 50 mg QHSP PRN PO INSOMNIA 11/22/20 11:35 Zonisamide (Zonegran) 200 mg BID PO 11/22/20 21:00 12/03/20 08:34 Allergies Coded Allergies: divalproex sodium (Verified Allergy, Severe, 11/02/20) MOTHER REPORTS HYPER-AMMONIA LEVELS WITHIN TWO DAYS OF USE AT [facility] SEPTEMBER 2020 Cephalosporins (Verified Allergy, Intermediate, HIVES, 03/28/20) cefaclor (Verified Allergy, Unknown, 07/12/19) lamotrigine (Verified Adverse Reaction, Severe, SJS, 07/12/19) TRINA REYES M.D. Dec 03, 2020 10:13
[2020-12-03 17:14] VITALS: BP 140/81
[2020-12-03] MEDS: OLANZapine 10 MG TAB PO SCH (21:03)
[2020-12-04] MEDS: LEVOTHYROXINE 25MCG TABLET (0.025MG) PO SCH (05:44)
[2020-12-04 06:00] VITALS: BP 116/80
[2020-12-04] MEDS: FLUoxetine 20 MG CAP PO SCH (08:25)
[2020-12-04] MEDS: BISACODYL 5 MG TAB PO SCH (08:26)
[2020-12-04] MEDS: ZONISAMIDE 100 MG CAP (ZONEGRAN) PO SCH (08:26)
[2020-12-04] MEDS: OLANZapine 10 MG TAB PO SCH (08:27)
[2020-12-04] MEDS: ATORVASTATIN 20 MG TAB PO SCH (08:27)
[2020-12-04] MEDS ORDERED: OLAN1TAB20 PO (10:24)
--- NOTE | 2020-12-04 11:47 | MHDSPDOC ---
[facility] Discharge Summary Discharge Summary DATE OF ADMISSION: Nov 22, 2020 at 15:20 DATE OF DISCHARGE: December 04, 2020 DISCHARGE DIAGNOSES: 1.. Depressive disorder NOS 2.. Personality disorder mixed REASON FOR ADMISSION: 35-year-old female with the long psychiatric history with repeated admissions recently. She was initially admitted to medicine after drinking a bottle of soap suicidal gesture. She claimed that she was hearing voices of demons telling her to kill herself which is essentially the same complaints she had for the past year. She is intellectually limited but has been living alone with a close supervision by her mother but has been seeking inpatient admission repeatedly due to her being unable to handle the stress of living independently. After admission she denied any hallucinations and does not appear to be preoccupied with delusional thoughts and not showing any other gross psychotic symptoms. CONSULTANTS INVOLVED: TREATMENT AND PROGRESS ON THE UNIT : She was continued on her seizure medicine and initially continued on her home medication of Thorazine 50 mg twice a day. She became more anxious and stressed due to conflict with a roommate and other issues on the unit and has acted out twice claiming that she is disturbed by the voices and required Zyprexa as needed with a good result. After this episode Thorazine was discontinued and started on Zyprexa 10 mg twice a day and she has shown good response. Her parents were concerned about her seizure disorder as the cause for this psychiatric problem and this MD has spoken with her neurologist who agrees that her seizure disorder is in good control and most likely was not the cause of her psychiatric condition.. Several attempts were made to place her in supportive living arrangement but apparently her family has not cooperated and sabotaged this attempt. She is still recommended to have a supportive living but that has to be arranged by the developmental disability [facility]. HOSPITAL COURSE: After admission she has maintained a good control did not show any more suicidal behavior. Her acting out behavior was well controlled with supportive therapy and the use of Zyprexa and since then she has not had any suicidal behavior and no other acting out behavior. Again she has not shown any symptoms consistent with a schizophrenia or any other major psychosis although her behavior seems to be in better control with Zyprexa 10 mg twice a day. DISCHARGE ASSESSMENT: Stable at her baseline and does not appear to be acutely suicidal and not acutely psychotic. MENTAL STATUS EXAMINATION ON DISCHARGE: Patient is a 35-year old female, who is in no acute distress. Speech is relevant coherent but not productive. Language skills are fair. Thought processes including: Relevant. Thought content: No gross psychotic symptoms. Abstract reasoning, and computation: Poor. Description of associations: Not productive not spontaneous. Description of abnormal or psychotic thoughts: No gross delusion or command hallucination. Judgment: Poor. Insight: Poor. Orientation to appears oriented. Recent and remote memory: No gross impairment. Attention span and concentration: Poor. Language:. Fund of knowledge: Below average. Mood: Reports feeling okay. Affect: Blunted about appropriate. MEDICATIONS ON DISCHARGE: -For. Zyprexa 10 mg twice a day for 7 days with 3 refills -For. -For. PLAN/FOLLOWUP ARRANGEMENTS: Arranged by the life care planner. The amount of time spent in the coordination of care for this patient was approximately 35 minutes. ETOH/Disorder Med Rx ETOH/DRUG DISORDER RX: N/A Vital Signs/I&Os Vital Signs Date Time Temp Pulse Resp B/P (MAP) Pulse Ox O2 Delivery O2 Flow Rate FiO2 12/04/20 06:00 98.0 98 14 116/80 (92) 96 Room Air Medications Scheduled Atorvastatin Calcium (Lipitor) 20 Mg Tab, 20 MG PO DAILY, (Reported) Azelastine HCl (Azelastine HCl) 0.05% 6ML Drops, 1 DROP OU BID, (Reported) Calcium Carbonate/Vitamin D3 (Calcium 600-Vit D3 400 Tablet) 1 Each Tablet, 1 TAB PO BID, (Reported) Clobazam (Onfi) 10 Mg Tablet, 15 MG PO BID, (Reported) Fluoxetine HCl (Prozac) 20 Mg Capsule, 60 MG PO DAILY, (Reported) Levothyroxine Sodium (Levothyroxine Sodium) 25 Mcg Tablet, 25 MCG PO DAILY, (Reported) Olanzapine (Olanzapine) 10 Mg Tablet, 10 MG PO BID for psychosis for 7 Days, #14 Zonisamide (Zonisamide) 100 Mg Cap, 200 MG PO BID, (Reported) Allergies Coded Allergies: divalproex sodium (Verified Allergy, Severe, 11/02/20) MOTHER REPORTS HYPER-AMMONIA LEVELS WITHIN TWO DAYS OF USE AT [facility] SEPTEMBER 2020 Cephalosporins (Verified Allergy, Intermediate, HIVES, 03/28/20) cefaclor (Verified Allergy, Unknown, 07/12/19) lamotrigine (Verified Adverse Reaction, Severe, SJS, 07/12/19) TRINA REYES M.D. Dec 04, 2020 11:47
== END 2020-12-04 11:55 | disposition home or self-care (01) | DRG 885 ==
LOC: M ED INP 15:20 → M PSY 15:21
PROVIDERS: ADMIT Psychiatry & Neurology Psychiatry; ATTEND Psychiatry & Neurology Psychiatry
DX: F32.89 Other specified depressive episodes (principal); T55 Toxic effect of soaps and detergents; G40.909 Epilepsy, unspecified, not intractable, without status epilepticus; F79 Unspecified intellectual disabilities; R47.9 Unspecified speech disturbances; F41.9 Anxiety disorder, unspecified; Z79.899 Other long term (current) drug therapy; Z88.8 Allergy status to other drugs, medicaments and biological substances; Z88.1 Allergy status to other antibiotic agents; Y92.89 Other specified places as the place of occurrence of the external cause; F60.89 Other specific personality disorders; K44.9 Diaphragmatic hernia without obstruction or gangrene; Z60.2 Problems related to living alone; Z91.5 Personal history of self-harm; Z78.1 Physical restraint status

== ENCOUNTER 2021-03-04 20:13 | Emergency (ER) | payer MEDICARE, MEDICAID ==
[~2021-03-04] VITALS: Ht 165.1 cm; Wt 103.6 kg
[2021-03-04] MEDS ORDERED: QUET1TAB17 PO (20:28)
[2021-03-04 22:12] LABS: HEMATOCRIT 44.6 % (36.0-47.0); HEMOGLOBIN 13.9 g/dl (12.0-15.5); MEAN CORPUSCULAR HGB CONC 31.2 g/dl (32.0-36.5); MEAN CORPUSCULAR VOLUME 92.9 fl (80.0-96.0); PLATELET COUNT, AUTOMATED 279 10^3/uL (150-450); WHITE BLOOD COUNT 8.1 10^3/uL (4.0-10.0)
[2021-03-04 22:47] LABS: AMPHETAMINES LEVEL URINE NEGATIVE (NEGATIVE); BARBITURATES URINE NEGATIVE (NEGATIVE); BENZODIAZEPINES URINE POSITIVE (NEGATIVE); CANNABINOIDS URINE NEGATIVE (NEGATIVE); COCAINE METABOLITE URINE NEGATIVE (NEGATIVE); METHADONE URINE NEGATIVE (NEGATIVE); OPIATES URINE NEGATIVE (NEGATIVE); PHENCYCLIDINE URINE NEGATIVE (NEGATIVE)
[2021-03-04 22:53] LABS: ACETAMINOPHEN LEVEL < 2.0 UG/ML (10.0-30.0); ALBUMIN 3.2 GM/DL (3.2-5.2); ALT/SGPT 23 U/L (12-78); BILIRUBIN,DIRECT < 0.1 MG/DL (0.0-0.2); BILIRUBIN,TOTAL 0.2 MG/DL (0.2-1.0); BLOOD UREA NITROGEN 17 MG/DL (7-18); CALCIUM LEVEL 8.3 MG/DL (8.5-10.1); CARBON DIOXIDE LEVEL 26 MEQ/L (21-32); CHLORIDE LEVEL 110 MEQ/L (98-107); CREATININE FOR GFR 1.12 MG/DL (0.55-1.30); ETHYL ALCOHOL (ETHANOL) < 0.003 % (0.000-0.010); GLOMERULAR FILTRATION RATE 58.6 (>60); GLUCOSE, FASTING 85 MG/DL (70-100); POTASSIUM SERUM 4.1 MEQ/L (3.5-5.1); SALICYLATE LEVEL < 1.7 MG/DL (5.0-30.0); SODIUM LEVEL 141 MEQ/L (136-145); TOTAL PROTEIN 6.5 GM/DL (6.4-8.2)
[2021-03-04 23:04] LABS: HCG, SERUM QUALITATIVE NEGATIVE (NEGATIVE)
[2021-03-05] MEDS ORDERED: LEVOTHYROXINE 25MCG TABLET (0.025MG) PO SCH (06:00)
[2021-03-05] MEDS ORDERED: ERYTGEL TOP (08:46)
[2021-03-05] MEDS ORDERED: HOME MED LIST COMPLETE! XX SCH (08:50)
[2021-03-05] MEDS ORDERED: CALCIUM/VITAMIN D 500 MG TAB PO SCH (09:00)
[2021-03-05] MEDS ORDERED: ZONISAMIDE 100 MG CAP (ZONEGRAN) PO SCH ×2 (09:00→09:30)
[2021-03-05] MEDS ORDERED: ATIV2TAB PO (12:08)
[2021-03-05 12:33] VITALS: BP 133/63
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
--- NOTE | 2021-03-05 21:43 | ECGEPIP ---
[facility] - ED Test Date: 2021-03-05 Pat Name: ARGELIA CARLOS Department: Room: - Gender: Female Side Boss: ESPERANZA : 1985 Requested By: LINUS Roy Order Number: [id number] Reading MD: Ang Francisco Measurements Intervals [place] Rate: 79 P: 38 NM: 172 QRS: 68 QRSD: 80 T: 27 QT: 396 QTc: 454 Interpretive Statements Normal sinus rhythm rate decreased from tracing done 11-20-20 Electronically Signed on 03-05-2021 21:42:43 EDT by Ang Francisco
== END 2021-03-05 12:35 | disposition home or self-care (01) ==
LOC: M ED 20:13
DX: F43.0 Acute stress reaction (principal); R45.851 Suicidal ideations; F43.20 Adjustment disorder, unspecified; F32.9 Major depressive disorder, single episode, unspecified; F41.9 Anxiety disorder, unspecified; F25.9 Schizoaffective disorder, unspecified; R56.9 Unspecified convulsions; F71 Moderate intellectual disabilities; Q40.0 Congenital hypertrophic pyloric stenosis; Z88.8 Allergy status to other drugs, medicaments and biological substances; Z79.899 Other long term (current) drug therapy

== ENCOUNTER 2021-03-11 11:38 | Emergency (ER) | payer MEDICARE, MEDICAID ==
[~2021-03-11 11:38] MED LIST changes: +ATIV2TAB PO; +QUET1TAB17 PO
--- OUTSIDE RECORDS SUMMARY | 2021-03-11 11:45 | CCD | Continuity of Care Document ---
Author Author [facility] Organization Unknown Address Unknown Phone Unavailable Care Team Providers Care Cement Contractor Name Role Phone Demario Larios Unavailable Unavailable Unavailable [facility] Unavailable Unavailable Unavailable Elizabet Snow Unavailable Pradeep Rodriguez Unavailable Problems Name Dates Details Schizophrenia, unsp ecified (F20.9) 19-Feb-2021 Status: Active Medications Name Dates Details Fluticasone Propionate 50 MCG/ACT 2 sprays per nostril. Demario Larios Active Ketoconazole 2 % 3x 1 week and rinse off. Ankush Larios Start : 25-Feb-2021 Active Albuterol Sulfate (2.5 MG/3ML) 0.083% take 1 vial every 6 hours for shortness of breath. Ankush Larios Start : 25-Feb-2021 Active SEROquel 25 MG Take as needed for sleep. Ankush Larios Start : 25-Feb-2021 Active Propranolol HCl 10 MG Patient mother only gives it to her in the am because of low blood pressure. Ankush Larios Start : 25-Feb-2021 Active Zonegran 100 MG Take 200 mg by mouth two times daily. Ankush Larios Start : 25-Feb-2021 Active Onfi 10 MG Take 15 mg by mouth twice a day. Ankush Larios Start : 25-Feb-2021 Active Calcium-Vitamin D3 600-400 MG-UNIT Take 1 tablet by mouth two times a day. Ankush Larios Start : 25-Feb-2021 Active Azelastine HCl 0.05 % 1 drop two times daily. Ankush Larios Start : 25-Feb-2021 Active Synthroid 25 MCG take 25MCG by mouth daiy. Ankush aLrios Start : 25-Feb-2021 Active LaMICtal 25 MG 50mg in evening Ankush Larios Start : 03-Jun-2017 End : 22-Jun-2017 Inactive Briviact 25 MG 1 tablet in morning and 2 tablets in evening Ankush Larios Start : 03-Jun-2017 End : 22-Jun-2017 Inactive Briviact 25 MG Ankush Larios Start : 29-May-2017 End : 03-Jun-2017 Inactive Lamictal 50mg in the am75mg in the evening, until 04/2017As of 04/2017, 75mg twice a day Until 05/20/17, 75mg in the [id number] in the pmUntil 05/27/16, 100mg twice a day Ankush Larios Start : 06-May-2017 End : 03-Jun-2017 Inactive Atorvastatin Calcium 20 MG Demario Larios* Start : 24-Apr-2017 End : 22-Jun-2017 Inactive Athletes Foot 1 % apply to back twice a day Ankush Larios Start : 24-Apr-2017 End : 22-Jun-2017 Inactive Calcium 600+D 600-400 MG-UNIT Ankush Larios Start : 24-Apr-2017 End : 22-Jun-2017 Inactive Lexapro 20 MG Demario Larios* Start : 24-Apr-2017 End : 22-Jun-2017 Inactive NexIUM 40 MG Demario Larios* Start : 24-Apr-2017 End : 22-Jun-2017 Inactive Ketoconazole 2 % Ankush Larios Start : 24-Apr-2017 End : 22-Jun-2017 Inactive Synthroid 25 MCG Demario Larios* Start : 24-Apr-2017 End : 22-Jun-2017 Inactive LaMICtal 25 MG 2 tablets twice a day Ankush Larios Start : 24-Apr-2017 End : 06-May-2017 Inactive Claritin 10 MG Demario Larios* Start : 24-Apr-2017 End : 22-Jun-2017 Inactive Singulair 10 MG Demario Larios* Start : 24-Apr-2017 End : 22-Jun-2017 Inactive Vitamin D (Ergocalciferol) 30679 UNIT sundays Ankush Larios Start : 24-Apr-2017 End : 22-Jun-2017 Inactive Zonegran 100 MG 2 tablets twice a day Ankush Larios Start : 24-Apr-2017 End : 22-Jun-2017 Inactive Albuterol Sulfate (2.5 MG/3ML) 0.083% 1 vial Q6hrs as needed for SOB due to allergies Ankush Larios Start : 24-Apr-2017 End : 22-Jun-2017 Inactive Allergies and Adverse Reactions Name Dates Details No known allergies (Allergy) Onset: Status: Active Loco alejandra Lam ictal, Rocephin, and maciel. (Allergy) Onset: 25-Feb-2021 Status: Active Results Date Description Value Details No Known Results Plan of Care Name Dates Details Instructions Diet:regular diet Ins truction Type: Nutrition education Payers * [facility] Complete
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
--- OUTSIDE RECORDS SUMMARY | 2021-03-11 11:45 | CCD | Continuity of Care Document ---
Author Author Shabnam BROCK M.D. Organization Unknown Address [address] [place] [address] Phone [phone] Care Team Providers Care Marketing Support Assistant Name Role Phone Demario Larios M.D. AUTM [phone] Problems Active Problems Provider Date Migraine without aura Daily Brock M.D. Onset: 12/06/2013 Epilepsy Daily Brock M.D. Onset: 12/06/2013 Impaired psychomotor performance Onset: Social History Type Date Description Comments Sex Unknown Tobacco Use Start: Unknown Patient has never smoked Allergies and adverse reactions Active Allergies Criticality Reaction | Severity Comments Date Rocephin Unable to assess criticality 12/06/2013 Cephalosporins ([id number]) Unable to assess criticality 06/08/2019 Ceclor Unable to assess criticality 12/06/2013 Cefaclor Unable to assess criticality 06/08/2019 Lamotrigine Unable to assess criticality SJS | Severe 06/08/2019 Depakote Unable to assess criticality HyperAmmoniamia 10/29/2020 Medications Active Medications SIG Qnty Indications Ordering Provide r Date Onfi 10mg Tablets 1 1/2 by mouth twice a day 90tabs Daily Brock M.D. 10/07/2017 Zonisamide 100mg Capsules take two capsules by mouth twice a day 120caps Daily Brock M.D. 05/06/2017 Albuterol Sulfate (2 .5mg/3ML) 0.083% Nebulizer Unknown Atorvastatin Calcium 20mg Tablets Daily Unknown Levothyroxine Sodium 25mcg Tablets Daily Unknown Immunizations Description No Information Available Vital Signs Date Vital Result Comment 12/06/2013 10:39am BP Systolic 110 mmHg BP Diastolic 80 mmHg Heart Rate 72 /min Height 67 inches 5'7" Weight 214.00 lb BMI (Body Mass Index) 33.5 kg/m2 [place] Body Weight 135 lb Results Description No Information Available Procedures Date Code Description Status 02/25/2021 83135 Office/Outpatient Established Mo d MDM 30-39 Min Completed 10/29/2020 24615 Office/Outpatient Established Lo w MDM 20-29 Min Completed Medical Devices Description No Information Available Encounters Type Date Location Provider Dx Diagnosis Office Visit 02/25/2021 12:15p [place] M.[place]. G40.009 Local-rel idio epi w seiz of loc onst,no t ntrct,w/o stat epi G47.51 Confusional arousals G40.911 Epilepsy, unspecified, intra ctable, with status epilepticus G43.819 Other migraine, intractable, without status migrainosus R45.6 Violent behavior Office Visit 10/29/2020 11:45a [place] office [place] M.[place]. G40.009 Local-rel idio epi w seiz of loc onst,no t ntrct,w/o stat epi G47.51 Confusional arousals G80.9 Cerebral palsy, unspecified Assessments Date Code Description Provider 02/25/2021 G40.009 Localization-related (focal) (partial) idiopathic epilepsy and epileptic syndromes with seizures of localized onset, not intractable, without status epilepticus Daily Brock M.D. 02/25/2021 G47.51 Confusional arousals Daily Brock M.D. 02/25/2021 G40.911 Epilepsy, unspecified, intractab le, with status epilepticus Daily Brock M.D. 02/25/2021 G43.819 Other migraine, intractable, wit hout status migrainosus Daily Brock M.D. 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 10/29/2020 G47.51 Confusional arousals Daily Brock M.D. 10/29/2020 G80.9 Cerebral palsy, unspecified Cirilo Brock M.D. Plan of Treatment Future Appointment(s):* 04/29/2021 11:15 am - Daily Brock M.D. at Main office - [place] Functional Status Description No Information Available Mental Status Description No Information Available Referrals Description No Information Available
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
--- OUTSIDE RECORDS SUMMARY | 2021-03-11 11:45 | CCD | Continuity of Care Document ---
Author Author Ying Shabnam [facility] Organization Unknown Address Unknown Phone Unavailable Care Team Providers Care It Recruiter Name Role Phone Demario Larios Unavailable Unavailable Unavailable [facility] Unavailable Unavailable Unavailable Elizabet Snow Unavailable Pradeep [...] 6 hours for shortness of breath. Ankush Larois Start : 25-Feb-2021 Active SEROquel 25 MG [...] MCG take 25MCG by mouth daiy. Ankush Larios Start : 25-Feb-2021 Active LaMICtal 25 MG [...] a day Until 05/20/17, 75mg in the [id number] in the pmUntil 05/27/16, 100mg twice a [...] End : 22-Jun-2017 Inactive Vitamin D (Ergocalciferol) 67192 UNIT sundays Ankush Larios Start : 24-Apr-2017 [...] Ins truction Type: Nutrition education Payers * [facility] Complete
--- OUTSIDE RECORDS SUMMARY | 2021-03-11 11:45 | CCD | Continuity of Care Document ---
Author Author Shabnam BROCK M.D. Organization Unknown Address [address] [place] [address] Phone [phone] Care Team Providers Care Decorative Cutting Machine Tender Name Role Phone Demario Larios M.D. AUTM [phone] Problems Active Problems Provider Date Migraine without aura Daily Brock M.D. Onset: 12/06/2013 Epilepsy Daily Brock M.D. Onset: 12/06/2013 Impaired psychomotor performance Onset: Social History Type Date Description Comments Sex Unknown Tobacco Use Start: Unknown Patient has never smoked Allergies, Adverse Reactions, Alerts Active Allergies Criticality Reaction | Severity Comments Date Rocephin Unable to assess criticality 12/06/2013 Cephalosporins ([id number]) Unable to assess criticality 06/08/2019 Ceclor Unable [...] lb BMI (Body Mass Index) 33.5 kg/m2 [place] Body Weight 135 lb Results Description No Information Available Procedures Date Code Description Status 10/29/2020 22165 Office/Outpatient Established Lo w MDM 20-29 Min Completed Medical Devices Description No Information Available Encounters Type Date Location Provider Dx Diagnosis Office Visit 10/29/2020 11:45a [place] M[place] G40.009 Local-rel idio epi w seiz of loc onst,no t ntrct,w/o stat epi G47.51 Confusional arousals G80.9 Cerebral palsy, unspecified Assessments Date Code Description Provider 10/29/2020 G40.009 Localization-related (focal) (partial) idiopathic epilepsy and epileptic syndromes with seizures of localized onset, not intractable, without status epilepticus Daily Brock M.D. 10/29/2020 G47.51 Confusional arousals Daily Brock M.D. 10/29/2020 G80.9 Cerebral palsy, unspecified Cirilo Brock M.D. Plan of Treatment No Information Available Functional Status Description No Information Available Mental Status Description No Information Available Referrals Description No Information Available
--- OUTSIDE RECORDS SUMMARY | 2021-03-11 11:45 | CCD | Continuity of Care Document ---
Author Author [facility]ing Sh[facility] [employer] Organization Unknown Address Unknown Phone Unavailable Care Team Providers Care Slitter Creaser Slotter Helper Name Role Phone Demario Larios Unavailable Unavailable Unavailable [facility] Unavailable Unavailable Unavailable Elizabet Snow Unavailable Pradeep [...] a day Until 05/20/17, 75mg in the [id number] in the pmUntil 05/27/16, 100mg twice a [...] End : 22-Jun-2017 Inactive Vitamin D (Ergocalciferol) 43626 UNIT sundays Ankush Larios Start : 24-Apr-2017 [...] Type: Nutrition education Payers * [facility] Complete
--- OUTSIDE RECORDS SUMMARY | 2021-03-11 11:45 | CCD | Continuity of Care Document ---
Author Author Ying Shabnam [employer] Organization Unknown Address Unknown Phone Unavailable Care Team Providers Care Guest Service Host Name Role Phone Demario Larios Unavailable Unavailable Unavailable [facility] Unavailable Unavailable Unavailable Elizabet Snow Unavailable Pradeep Rodriguez Unavailable Problems Name Dates Details Medications Name Dates Details Calcium-Vitamin D3 600-400 MG-UNIT Take 1 tablet by mouth two times a day. Demario Larios Active Azelastine HCl 0.05 % 1 drop two times daily. Ankush Larios Start : 25-Feb-2021 Active Synthroid 25 MCG take 25MCG by mouth daiy. Ankush Larios Start : 25-Feb-2021 Active Onfi 10 MG Take 15 mg by mouth twice a day. Ankush Larios Start : 25-Feb-2021 Active Zonegran 100 MG Take 200 mg by mouth two times daily. Ankush Larios Start : 25-Feb-2021 Active Propranolol HCl 10 MG Patient mother only gives it to her in the am because of low blood pressure. Ankush Larios Start : 25-Feb-2021 Active SEROquel 25 MG Take as needed for sleep. Ankush Larios Start : 25-Feb-2021 Active Albuterol Sulfate (2.5 MG/3ML) 0.083% take 1 vial every 6 hours for shortness of breath. Ankush Larios Start : 25-Feb-2021 Active Ketoconazole 2 % 3x 1 week and rinse off. Ankush Larios Start : 25-Feb-2021 Active Fluticasone Propionate 50 MCG/ACT 2 sprays per nostril. Ankush Larios Start : 25-Feb-2021 Active Briviact 25 MG 1 tablet in morning and 2 tablets in evening Ankush Larios Start : 03-Jun-2017 End : 22-Jun-2017 Inactive LaMICtal 25 MG 50mg in evening Ankush Larios Start : 03-Jun-2017 End : 22-Jun-2017 Inactive Briviact 25 MG Demario Larios* Start : 29-May-2017 End : 03-Jun-2017 Inactive Lamictal 50mg in the am75mg in the evening, until 04/2017As of 04/2017, 75mg twice a day Until 05/20/17, 75mg in the ei439ft in the pmUntil 05/27/16, 100mg twice a day Ankush Larios Start : 06-May-2017 End : 03-Jun-2017 Inactive Albuterol Sulfate (2.5 MG/3ML) 0.083% 1 vial Q6hrs as needed for SOB due to allergies Ankush Larios Start : 24-Apr-2017 End : 22-Jun-2017 Inactive Zonegran 100 MG 2 tablets twice a day Demario Larios* Start : 24-Apr-2017 End : 22-Jun-2017 Inactive Vitamin D (Ergocalciferol) 13637 UNIT sundays Ankush Larios Start : 24-Apr-2017 End : 22-Jun-2017 Inactive Singulair 10 MG Demario Larios* Start : 24-Apr-2017 End : 22-Jun-2017 Inactive Claritin 10 MG Demario Larios* Start : 24-Apr-2017 End : 22-Jun-2017 Inactive LaMICtal 25 MG 2 tablets twice a day Ankush aLrios Start : 24-Apr-2017 End : 06-May-2017 Inactive Synthroid 25 MCG Demario Larios* Start : 24-Apr-2017 End : 22-Jun-2017 Inactive Ketoconazole 2 % Demario Larios* Start : 24-Apr-2017 End : 22-Jun-2017 Inactive NexIUM 40 MG Demario Larios* Start : 24-Apr-2017 End : 22-Jun-2017 Inactive Lexapro 20 MG Demario Larios* Start : 24-Apr-2017 End : 22-Jun-2017 Inactive Calcium 600+D 600-400 MG-UNIT Demario Larios* Start : 24-Apr-2017 End : 22-Jun-2017 Inactive Athletes Foot 1 % apply to back twice a day Demario Larios* Start : 24-Apr-2017 End : 22-Jun-2017 Inactive Atorvastatin Calcium 20 MG Demario Larios* Start : 24-Apr-2017 End : 22-Jun-2017 Inactive Allergies and Adverse Reactions Name Dates Details No known allergies (Allergy) Onset: Status: Active invega, Ceclor, Tate ictal, Rocephin, and depakote. (Allergy) Onset: 25-Feb-2021 Status: Active Results Date Description Value Details No Known Results Plan of Care Name Dates Details Instructions Diet:regular diet Ins truction Type: Nutrition education Payers * [facility] Complete
--- OUTSIDE RECORDS SUMMARY | 2021-03-11 11:45 | CCD | Continuity of Care Document ---
Author Author Ying Shabnam [employer] Organization Unknown Address Unknown Phone Unavailable Care Team Providers Care City Editor Name Role Phone Demario Larios Unavailable Unavailable Unavailable [facility] Unavailable Unavailable Unavailable Elizabet Snow [...] tablet by mouth two times a day. Anksuh Larios Start : 25-Feb-2021 Active Azelastine HCl [...] a day Until 05/20/17, 75mg in the [id number] in the pmUntil 05/27/16, 100mg twice a [...] End : 22-Jun-2017 Inactive Vitamin D (Ergocalciferol) 53728 UNIT sundays Ankush Larios Start : 24-Apr-2017 [...] Ins truction Type: Nutrition education Payers * [facility] Complete
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
--- OUTSIDE RECORDS SUMMARY | 2021-03-11 11:48 | CCD ---
Author Author [facility] Organization [facility] Address Unknown Phone Unavailable Care Team Providers Care Program Director Name Role Phone SHANEKA Casiano MD Unavailable Unavailable SHANEKA Casiano MD Unavailable Unavailable SHANEKA Casiano MD Unavailable Unavailable SHANEKA Casiano MD Unavailable Unavailable SHANEKA Casiano MD Unavailable Unavailable SHANEKA Casiano MD Unavailable Unavailable HARDY PLAZA Unavailable Unavailable Jose De Jesus BLAND [id number] Unavailable Unavailable Jaalina Homasandy Diaz Unavailable HOMA WELLINGTON Unavailable Unavailable ASA FELIX MD Unavailable Unavailable ASA FELIX MD Unavailable Unavailable ASA FELIX MD Unavailable Unavailable ASA FELIX MD Unavailable Unavailable ASA FELIX MD Unavailable Unavailable ASA FELIX MD Unavailable Unavailable ASA FELIX MD Unavailable Unavailable ASA FELIX MD Unavailable Unavailable ASA FELIX MD Unavailable Unavailable ASA FELIX MD Unavailable Unavailable ASA FELIX MD Unavailable Unavailable ASA FELIX MD Unavailable Unavailable Geurtsen, Aart Unavailable Unavailable Geurtsen, Aart Unavailable Unavailable Geurtsen, Aart Unavailable Unavailable Geurtsen, Aart Unavailable Unavailable Geurtsen, Aart Unavailable Unavailable Geurtsen, Aart Unavailable Unavailable Geurtsen, Aart Unavailable Unavailable Geurtsen, Aart Unavailable Unavailable Geurtsen, Aart Unavailable Unavailable Geurtsen, Aart Unavailable Unavailable Geurtsen, Aart Unavailable Unavailable Geurtsen, Aart Unavailable Unavailable Geurtsen, Aart Unavailable Unavailable Geurtsen, Aart Unavailable Unavailable Geurtsen, Aart Unavailable Unavailable Geurtsen, Aart Unavailable Unavailable Geurtsen, Aart Unavailable Unavailable Geurtsen, Aart Unavailable Unavailable Geurtsen, Aart Unavailable Unavailable Cizenski, Jennalee Unavailable Unavailable Cizenski, Jennalee Unavailable Unavailable Cizenski, Jennalee Unavailable Unavailable Kirill ANDRADE MD Unavailable Unavailable Kirill ANDRADE MD Unavailable Unavailable HOLLI, CHARISSE ANTONIO Unavailable Unavailable HOLLI, CHARISSE MD Unavailable Unavailable HOLLI, CHARISSE MD Unavailable Unavailable HOLLI, CHARISSE MD Unavailable Unavailable HOLLI, CHARISSE MD Unavailable Unavailable HOLLI, CHARISSE MD Unavailable Unavailable HOLLI, CHARISSE MD Unavailable Unavailable Maribel SANTIAGO MD Unavailable Unavailable Maribel SANTIAGO MD Unavailable Unavailable Maribel SANTIAGO MD Unavailable Unavailable Maribel SANTIAGO MD Unavailable Unavailable Maribel SANTIAGO MD Unavailable Unavailable Maribel SANTIAGO MD Unavailable Unavailable Maribel SANTIAGO MD Unavailable Unavailable Maribel SANTIAGO MD Unavailable Unavailable Maribel SANTIAGO MD Unavailable Unavailable Maribel SANTIAGO MD Unavailable Unavailable Maribel SANTIAGO MD Unavailable Unavailable Maribel SANTIAGO MD Unavailable Unavailable Maribel SANTIAGO MD Unavailable Unavailable Maribel SANTIAGO MD Unavailable Unavailable Maribel SANTIAGO MD Unavailable Unavailable Maribel SANTIAGO MD Unavailable Unavailable SUELLEN THURSTON MD Unavailable Unavailable SUELLEN THURSTON MD Unavailable Unavailable SUELLEN THURSTON MD Unavailable Unavailable SUELLEN THURSTON MD Unavailable Unavailable MICHELLE VILLEDA MD Unavailable Unavailable MICHELLE VILLEDA MD Unavailable Unavailable MICHELLE VILLEDA MD Unavailable Unavailable MICHELLE VILLEDA MD Unavailable Unavailable MICHELLE VILLEDA MD Unavailable Unavailable MICHELLE VILLEDA MD Unavailable Unavailable MICHELLE VILLEDA MD Unavailable Unavailable MICHELLE VILLEDA MD Unavailable Unavailable Sirisha Hansen MD Unavailable Unavailable Sirisha Hansen MD Unavailable Unavailable Sirisha Hansen MD Unavailable Unavailable Sirisha Hansen MD Unavailable Unavailable Sirisha Hansen MD Unavailable Unavailable Sirisha Hansen MD Unavailable Unavailable Lolita, [place] Unavailable MD Christianne NIELSON Unavailable Unavailable AIDEN NELSON MD Unavailable Unavailable AIDEN NELSON MD Unavailable Unavailable AIDEN NELSON MD Unavailable Unavailable AIDEN NELSON MD Unavailable Unavailable AIDEN NELSON MD Unavailable Unavailable AIDEN NELSON MD Unavailable Unavailable AIDEN NELSON MD Unavailable Unavailable AIDEN NELSON MD Unavailable Unavailable AIDEN NELSON MD Unavailable Unavailable DEFAULT, PROVIDER Unavailable Unavailable MD SINGH JORDAN Unavailable Unavailable KHALIQ, A KIRSTEN Unavailable Unavailable Daily Khaliq, Kirsten Unavailable Unavailable Daily Khaliq, Kirsten Unavailable Unavailable Daily Khaliq, Kirsten Unavailable Unavailable Rubén Murray MD Unavailable Unavailable Rubén Murray MD Unavailable Unavailable Rubén Murray MD Unavailable Unavailable Rubén Murray MD Unavailable Unavailable Rubén Murray MD Unavailable Unavailable Rubén Murray MD Unavailable Unavailable UNKNOWN, DOCTOR Unavailable Unavailable Sera Hopson Unavailable Unavailable CHRISTIAN III, J JAQUELINE Unavailable Unavailable CHRISTIAN III, J JAQUELINE Unavailable Unavailable CHRISTIAN III, J JAQUELINE Unavailable Unavailable CHRISTIAN III, J JAQUELINE Unavailable Unavailable CHRISTIAN III, J JAQUELINE Unavailable Unavailable CHRISTIAN III, J JAQUELINE Unavailable Unavailable Vinod, Daily ANTONIO Unavailable Unavailable Vinod, Daily MD Unavailable Unavailable Vinod, Daily ANTONIO Unavailable Unavailable Vinod, Daily ANTONIO Unavailable Unavailable Vinod, Daily MD Unavailable Unavailable [...] Unavailable Unavailable Vinod, Daily MD Unavailable Unavailable AHMED, AZFAR MD Unavailable Unavailable AHMED, AZFAR MD Unavailable Unavailable AHMED, AZFAR MD Unavailable Unavailable AHMED, AZFAR MD Unavailable Unavailable AHMED, AZFAR MD Unavailable Unavailable AHMED, AZFAR MD Unavailable Unavailable AHMED, AZFAR MD Unavailable Unavailable AHMED, AZFAR MD Unavailable Unavailable AHMED, AZFAR MD Unavailable Unavailable AHMED, AZFAR MD Unavailable Unavailable AHMED, AZFAR MD Unavailable Unavailable AHMED, AZFAR MD Unavailable Unavailable AHMED, AZFAR MD Unavailable Unavailable AHMED, AZFAR MD Unavailable Unavailable AHMED, AZFAR MD Unavailable Unavailable AHMED, AZFAR MD Unavailable Unavailable AHMED, AZFAR MD Unavailable Unavailable AHMED, AZFAR MD Unavailable Unavailable AHMED, AZFAR MD Unavailable Unavailable AHMED, AZFAR MD Unavailable Unavailable AHMED, AZFAR MD Unavailable Unavailable AHMED, AZFAR MD Unavailable Unavailable AHMED, AZFAR MD Unavailable Unavailable AHMED, AZFAR MD Unavailable Unavailable AHMED, AZFAR MD Unavailable Unavailable AHMED, AZFAR MD Unavailable Unavailable BILAL, AHMAD MD Unavailable Unavailable BILAL, AHMAD MD Unavailable Unavailable BILAL, AHMAD MD Unavailable Unavailable BILAL, AHMAD MD Unavailable Unavailable BILAL, AHMAD MD Unavailable Unavailable BILAL, AHMAD MD Unavailable Unavailable BILAL, AHMAD MD Unavailable Unavailable BILAL, AHMAD MD Unavailable Unavailable BILAL, AHMAD MD Unavailable Unavailable BILAL, AHMAD MD Unavailable Unavailable White, M Yuni MD Unavailable Unavailable White, M Yuni MD Unavailable Unavailable White, M Yuni MD Unavailable Unavailable White, M Yuni MD Unavailable Unavailable White, M Yuni MD Unavailable Unavailable White, M Yuni MD Unavailable Unavailable White, M Yuni MD Unavailable Unavailable White, M Yuni MD Unavailable Unavailable White, M Yuni MD Unavailable Unavailable White, M Yuni MD Unavailable Unavailable White, M Yuni MD Unavailable Unavailable White, M Yuni MD Unavailable Unavailable White, M Yuni MD Unavailable Unavailable White, M Yuni MD Unavailable Unavailable White, M Yuni MD Unavailable Unavailable White, M Yuni MD Unavailable Unavailable White, M Yuni MD Unavailable Unavailable White, M Yuni MD Unavailable Unavailable White, M Yuni MD Unavailable Unavailable White, M Yuni MD Unavailable Unavailable White, M Yuni MD Unavailable Unavailable White, M Yuni MD Unavailable Unavailable White, M Yuni MD Unavailable Unavailable White, M Yuni MD Unavailable Unavailable White, M Yuni MD Unavailable Unavailable White, M Yuni MD Unavailable Unavailable White, M Yuni MD Unavailable Unavailable White, M Yuni MD Unavailable Unavailable White, M Yuni MD Unavailable Unavailable White, M Yuni MD Unavailable Unavailable White, M Yuni MD Unavailable Unavailable White, M Yuni MD Unavailable Unavailable Cheko, M Sriharsha Unavailable Unavailable Cheko, M Sriharsha Unavailable Unavailable Cheko, M Sriharsha Unavailable Unavailable Cheko, M Sriharsha Unavailable Unavailable Cheko, M Sriharsha Unavailable Unavailable Cheko, M Sriharsha Unavailable Unavailable Cheko, M Sriharsha Unavailable Unavailable Cheko, M Sriharsha Unavailable Unavailable Cheko, M Sriharsha Unavailable Unavailable Cheko, M Sriharsha Unavailable Unavailable Cheko, M Sriharsha Unavailable Unavailable Cheko, M Sriharsha Unavailable Unavailable Cheko, M Sriharsha Unavailable Unavailable Cheko, M Sriharsha Unavailable Unavailable Cheko, M Sriharsha Unavailable Unavailable Cheko, M Sriharsha Unavailable Unavailable Cheko, M Sriharsha Unavailable Unavailable Cheko, M Sriharsha Unavailable Unavailable Cheko, M Sriharsha Unavailable Unavailable Cheko, M Sriharsha Unavailable Unavailable Cheko, M Sriharsha Unavailable Unavailable Cheko, M Sriharsha Unavailable Unavailable Cheko, M Sriharsha Unavailable Unavailable Cheko, M Sriharsha Unavailable Unavailable Cheko, M Sriharsha Unavailable Unavailable Cheko, M Sriharsha Unavailable Unavailable Cheko, M Sriharsha Unavailable Unavailable Cheko, M Sriharsha Unavailable Unavailable Cheko, M Sriharsha Unavailable Unavailable Yazan, P Christopher Unavailable Yazan, P Christopher Unavailable LOLITA ., [place] . Unavailable Unavailable LOLITA ., [place] . Unavailable Unavailable LOLITA ., [place] . Unavailable Unavailable Jose De Jesus KOTHARI MD Unavailable Unavailable Rubén RENDON MD Unavailable Unavailable Rubén RENDON MD Unavailable Unavailable Rubén RENDON MD Unavailable Unavailable Rubén RENDON MD Unavailable Unavailable Ronel RAMSAY MD Unavailable Unavailable Ronel RAMSAY MD Unavailable Unavailable Ronel RAMSAY MD Unavailable Unavailable Ronel RAMSAY MD Unavailable Unavailable Ronel RAMSAY MD Unavailable Unavailable Ronel RAMSAY MD Unavailable Unavailable Ronel RAMSAY MD Unavailable Unavailable Ronel RAMSAY MD Unavailable Unavailable Ronel RAMSAY MD Unavailable Unavailable Ronel RAMSAY MD Unavailable Unavailable Ronel RAMSAY MD Unavailable Unavailable Ronel RAMSAY MD Unavailable Unavailable Ronel RAMSAY MD Unavailable Unavailable Ronel RAMSAY MD Unavailable Unavailable Ronel RAMSAY MD Unavailable Unavailable Ronel RAMSAY MD Unavailable Unavailable Ronel RAMSAY MD Unavailable Unavailable Ronel RAMSAY MD Unavailable Unavailable Ronel RAMSAY MD Unavailable Unavailable Anastasia, Fnu Unavailable KIRSTIE LEE MD Unavailable Unavailable KIRSTIE LEE MD Unavailable Unavailable KIRSTIE LEE MD Unavailable Unavailable KIRSTIE LEE MD Unavailable Unavailable KIRSTIE LEE MD Unavailable Unavailable KIRSTIE LEE MD Unavailable Unavailable KIRSTIE LEE MD Unavailable Unavailable KIRSTIE LEE MD Unavailable Unavailable KIRSTIE LEE MD Unavailable Unavailable KIRSTIE LEE MD Unavailable Unavailable KIRSTIE LEE MD Unavailable Unavailable KIRSTIE LEE MD Unavailable Unavailable KIRSTIE LEE MD Unavailable Unavailable KIRSTIE LEE MD Unavailable Unavailable KIRSTIE LEE MD Unavailable Unavailable Arthur Hardy Unavailable UdekwGuicho winters MD Unavailable Unavailable Udekwu, Guicho ANTONIO Unavailable Unavailable Udekwu, Guicho ANTONIO Unavailable Unavailable Udekwu, Guicho ANTONIO Unavailable Unavailable Udekwu, Guicho ANTONIO Unavailable Unavailable Udekwu, Guicho ANTONIO Unavailable Unavailable Udekwu, Guicho ANTONIO Unavailable Unavailable Udekwu, Guicho ANTONIO Unavailable Unavailable Udekwu, Guicho ANTONIO Unavailable Unavailable Udekwu, Guicho ANTONIO Unavailable Unavailable Udekwu, Guicho ANTONIO Unavailable Unavailable Sera MAKI MD Unavailable Unavailable Sera MAKI MD Unavailable Unavailable Sera MAKI MD Unavailable Unavailable Sera MAKI MD Unavailable Unavailable Sera MAKI MD Unavailable Unavailable Sera MAKI MD Unavailable Unavailable Sera MAKI MD Unavailable Unavailable Sera MAKI MD Unavailable Unavailable Sera MAKI MD Unavailable Unavailable Sera MAKI MD Unavailable Unavailable Sera MAKI MD Unavailable Unavailable ANASTASIA, FNU Unavailable Unavailable TANNA HINOJOSA MD Unavailable Unavailable TANNA HINOJOSA MD Unavailable Unavailable EMERGENCY, SERVICES MEDICAL Unavailable Unavailable Marco, B Ady MD Unavailable Unavailable MarcoAnabell MD Unavailable Unavailable LeslieAnabell MD Unavailable Unavailable MarcoAnabell MD Unavailable Unavailable LeslieAnabell MD Unavailable Unavailable MarcoAnabell MD Unavailable Unavailable LeslieAnabell MD Unavailable Unavailable MarcoAnabell MD Unavailable Unavailable MarcoAnabell MD Unavailable Unavailable LeslieAnabell MD Unavailable Unavailable MarcoAnabell MD Unavailable Unavailable MarcoAnabell MD Unavailable Unavailable LeslieAnabell MD Unavailable Unavailable MarcoAnabell MD Unavailable Unavailable MarcoAnabell MD Unavailable Unavailable MarcoAnabell MD Unavailable Unavailable LeslieAnabell MD Unavailable Unavailable LeslieAnabell MD Unavailable Unavailable LeslieAnabell MD Unavailable Unavailable LeslieAnabell MD Unavailable Unavailable MarcoAnabell MD Unavailable Unavailable LeslieAnabell MD Unavailable Unavailable LeslieAnabell MD Unavailable Unavailable LeslieAnabell MD Unavailable Unavailable LeslieAnabell MD Unavailable Unavailable LeslieAnabell MD Unavailable Unavailable MarcoAnabell MD Unavailable Unavailable LeslieAnabell MD Unavailable Unavailable LeslieAnabell MD Unavailable Unavailable MarcoAnabell MD Unavailable Unavailable LeslieAnabell MD Unavailable Unavailable MarcoAnabell MD Unavailable Unavailable MarcoAnabell MD Unavailable Unavailable LeslieAnabell MD Unavailable Unavailable LeslieAnabell MD Unavailable Unavailable MarcoAnabell MD Unavailable Unavailable MarcoAnabell MD Unavailable Unavailable MarcoAnabell forte MD Unavailable Unavailable MarcoAnabell arreola MD Unavailable Unavailable LeslieAnabell arreola MD Unavailable Unavailable MarcoAnabell MD Unavailable Unavailable LeslieAnabell MD Unavailable Unavailable MarcoAnabell MD Unavailable Unavailable LeslieAnabell MD Unavailable Unavailable LeslieAnabell forte MD Unavailable Unavailable MarcoAnabell arreola MD Unavailable Unavailable LeslieAnabell forte MD Unavailable Unavailable MarcoAnabell arreola MD Unavailable Unavailable Re-disclosure Warning The records that [...] is protected by Article 27-F of the [facility] Public Health law. If you continue you may have access to information: Regarding HIV / AIDS; Provided by facilities licensed or operated by the [facility] Office of Mental Health; or Provided by the [facility] Office for People With Developmental Disabilities. If such information is present, then the following [facility] mandated warning applies: This information has [...] law may result in a fine or assisted sentence or both. A general authorization for the release of medical or other information is NOT sufficient authorization for further disc losure. Allergies and Adverse Reactions Type Description Substance Reaction Status Data Source(s ) invega, Ceclor, Lamictal, Rocephin, and depakote. inve ga, Ceclor, Lamictal, Rocephin, and depakote. invega, Ceclor, Lamictal, Rocephin, and depakote. active NETSMART ([facility] ) No known allergies No known allergies No known allergies a ctive NETSMART ([facility]) Propensity to adverse reactions NO KNOWN ALLERGIES NO KNOWN ALLERGIES [facility] Propensity to adverse reactions CEPHALOSPORINS CEPHALOSPORINS Hives [facility] Propensity to adverse reactions VALPROIC ACID VALPROIC ACID [facility] Propensity to adverse reactions VALPROIC ACID VALPROIC ACID [facility] Drug allergy PALIPERIDONE PALMITATE ER PALIPERIDONE PALMITATE ER [facility] Propensity to adverse reactions BROMOCRIPTINE BROMOCRIPTINE Rash Low [facility] Propensity to adverse reactions PALIPERIDONE PALMITATE PALIPERID ONE PALMITATE Other [facility] Propensity to adverse reactions CEFTRIAXONE Ceftriaxone Ac tive [facility] Propensity to adverse reactions LAMOTRIGINE lamotrigine Ac tive [facility] Propensity to adverse reactions PALIPERIDONE PALMITATE ER Pa liperidone Palmitate Er Active [facility] Propensity to adverse reactions CEFACLOR Cefaclor Acti ve [facility] Propensity to adverse reactions BROMOCRIPTINE Bromocriptine Rash Low Active [facility] Low Family History Family Member Name Family Member Gender Family Member Status Date o f Status Description Data Source(s) Unknown Unknown Problem MEDENT ([facility], ) father Encounters Encounter Providers Location Date Indications Data Source(s ) Outpatient [address] [facility] [id number] 02/28/2021 12:00:00 AM EDT eCW1 ([facility]) Outpatient Attender: Daily Brock MD Main office - [place] 02/25/2021 12:15:00 PM EDT MEDENT ([facility] emely, ) 02/25/2021 01:00:00 AM EDT - 021 12:00:43 AM EDT NETSMART ([facility]) Unknown [address] [facility] [id number] 02/25/2021 12:00:00 AM EDT eCW1 ([facility]) Unknown [address] [facility] [place] [address] 02/20/2021 12:00:00 AM EDT eCW1 ([facility]) Unknown [address] [facility] Y [address] 12/12/2020 12:00:00 AM EDT eCW1 ([facility]) Inpatient Attender: America Thibodeaux er: AMERICA MCHUGH .Admitter: AMERICA MCHUGH .Referrer: AMERICA MCHUGH . 12/07/2020 12:00:00 AM ED[facility] Attender: Merrick SapnaAttender: MERRICK SAPNAAttender: Yuni Li MDAttender: Hardy KumarAttender: HARDY KUMARAttender: Kirsten Daily KhaliqAttender: KIRSTEN KHALIQAttender: Munnam JafarAttender: MUNNAM JAF ARAttender: Adaora Udekwu MDAttender: MARYANNE HARRINGTONR MDAttender: NICOLE MAKI MDAttender: PETROS RENDON MDAttender: Bryan Beckler MDAttender: Aaramber GeurtsenAttender: TANNA HADZIPASIC MDAttender: Ameirca DuttaAttender: AMERICA LOLITA .Attender: KIRSTIE LEE MDAttender: Lenore RobbAdmitter: KIRSTIE LEE MDReferrer: AMERICA LOLITA .Customer Sales Advisor: Ady Lara MDConsultant: Dylan JamisonwthamConsultant: Lobo Stacynsultant: LOBO BLAND [id number]: Munnam JafarConsultant: MUNNAM JAFARConsultant: Adaora Udekwu MDConsultant: OPHELIA SANTIAGO MDConsultant: LINUS RAMSAY MD [id number] 12/04/2020 12:00:00 AM EDT - 2021 10:40:00 AM EDT psych eval suicide attempt [facility] psych eval suicide attempt Patient discharged. Unknown [address] [facility] [place] [address] 12/04/2020 12:00:00 AM EDT eCW1 ([facility]) Unknown [address] [facility] [place] [address] 11/28/2020 12:00:00 AM EDT eCW1 ([facility]) Unknown [address] [facility] [place] [address] 11/27/2020 12:00:00 AM EDT eCW1 ([facility]) Unknown [address] [facility] [place] [address] 11/26/2020 12:00:00 AM EDT eCW1 ([facility]) Unknown [address] [facility] [place] [address] 11/24/2020 12:00:00 AM EDT eCW1 ([facility]) Unknown [address] [facility] [place] [address] 11/24/2020 12:00:00 AM EDT eCW1 ([facility]) Unknown [address] [facility] [place] [address] 11/21/2020 12:00:00 AM EDT eCW1 ([facility]) Inpatient Attender: MD YULIET Teran nder: MD DURAN Shahender: PROVIDER DEFAULTAttender: MEDICAL EMERGENCYAttender: KETAN KOTHARI MDAdmitter: MD DURAN NIELSON [id number] 11/18/2020 01:14:00 PM EDT - 11/20/2020 02:30:00 PM EDT [facility] Patient discharged. Inpatient Attender: DOCTOR MORINAdmi tter: MD DURAN Buscherrer: CATE CORTEZ MD 11/18/2020 01:14:00 PM EDT [facility] Outpatient 11/16/2020 11:40:00 PM EDT [facility] Unknown [address] [facility] [place] [address] 11/13/2020 12:00:00 AM EDT eCW1 ([facility]) Inpatient Attender: Sirisha Hansen MDA ttender: SUELLEN THURSTON MDAdmitter: Sirisha Hansen MDReferrer: Lobo Hopson [id number] 12:00:00 AM EDT - 11/02/2020 11:10:00 AM EDT Congenital hypothyroidism without goiter [facility] Congenital hypothyroidism without goiter Patient discharged. Outpatient Attender: Daily Brock MD Main office - [place] 10/29/2020 11:45:00 AM EDT MEDENT ([facility] ) Outpatient Attender: MICHELLE Ferrari tter: MICHELLE VILLEDA MDReferrer: LINUS ANDRADE MD 10/19/2020 01:58:00 AM EDT unspecified depressiv e disorder [facility] unspecified depressive disorder Unknown [address] [facility] [place] [address] 10/01/2020 12:00:00 AM EDT [facility] Unknown [address] [facility] [place] [address] 09/21/2020 12:00:00 AM EDT [facility]CW1 [facility] Inpatient Attender: MUSA Casiano MDAtte nder: AIDEN NELSON MDAttender: JAQUELINE GONZALES IIIAttender: CHARISSE HOLLI MDAdmitter: AIDEN NELSON MDReferrer: AIDEN NELSON MDConsultant: OPHELIA SANTIAGO MDConsultant: MUSA Casiano MDConsultant: LOBO BLAND [id number] 09/18/2020 12:00:00 AM EDT - 09/29/2020 04:43:00 PM EDT Suicide attempt, initial encounter [facility] Suicide attempt, initial encounter Patient discharged. Outpatient [address] [facility] [place] [address] 09/18/2020 12:00:00 AM EDT eCW1 ([facility]) Unknown [address] [facility] [place] [address] 09/17/2020 12:00:00 AM EDT eCW1 ([facility]) Unknown [address] [facility] [place] [address] 09/17/2020 12:00:00 AM EDT [facility]CW1 [facility] Unknown [address] [facility] [place] [address] 09/14/2020 12:00:00 AM EDT [facility]CW1 [facility] Unknown [address] [facility] [place] [address] 09/13/2020 12:00:00 AM EDT [facility]CW1 [facility] Emergency Attender: EVERETT HANDY MD [id number] 06:12:00 PM EDT - 09/11/2020 09:07:00 PM EDT [facility] Patient discharged. Office Visit, Est Pt., Level 4 PC [address] [place] [address] 09/11/2020 12:00:00 AM EDT eCW1 ([facility]) Unknown [address] [facility] [place] [address] 08/20/2020 12:00:00 AM EDT eCW1 ([facility]) Unknown [address] [facility] [id number] 07/30/2020 12:00:00 AM EST eCW1 ([facility]) Office Visit, Est Pt., Level 3 PC [address] [place] [address] 07/27/2020 12:00:00 AM EST eCW1 ([facility]) Unknown [address] [facility] [id number] 07/27/2020 12:00:00 AM EST eCW1 ([facility]) Unknown [address] [facility] [place] [address] 07/19/2020 12:00:00 AM EST eCW1 ([facility]) Office Visit, Est Pt., Level 3 PC [address] [place] [address] 07/09/2020 12:00:00 AM EST eCW1 ([facility]) Unknown [address] [facility] [place] [address] 07/09/2020 12:00:00 AM EST eCW1 ([facility]) Unknown [address] [facility] [place] [address] 06/12/2020 12:00:00 AM EST eCW1 ([facility]) Unknown [address] [place] [address] [place] [address] 05/30/2020 12:00:00 AM EST eCW1 ([facility]) Unknown [address] [facility] [place] [address] 05/10/2020 12:00:00 AM EST eCW1 ([facility]) Outpatient [address] [facility] [place] [address] 05/07/2020 12:00:00 AM EST eCW1 ([facility]) Outpatient [address] [facility] [place] [address] 05/07/2020 12:00:00 AM EST [facility] [facility]) Unknown [address] [facility] [address] [place] [address] 05/07/2020 12:00:00 AM EST eCW1 ([facility]) Unknown [address] [facility] [address] [address] 05/01/2020 12:00:00 AM EST eCW1 ([facility]) Unknown [address] [facility] [address] [place] [address] 05/01/2020 12:00:00 AM EST eCW1 ([facility]) Unknown [address] [facility] [place] [address] 05/01/2020 12:00:00 AM EST eCW1 ([facility]) Unknown [address] [facility] [address] [place] [address] 05/01/2020 12:00:00 AM EST eCW1 ([facility]) Unknown [address] [facility] [address] [place] [address] 05/01/2020 12:00:00 AM EST eCW1 ([facility]) Unknown [address] [facility] [place] [address] 05/01/2020 12:00:00 AM EST eCW1 ([facility]) Unknown [address] [facility] [address] [address] 04/09/2020 12:00:00 AM EST eCW1 ([facility]) Outpatient Attender: Daily Brock MD Main office - [place] 03/05/2020 11:00:00 AM EDT MEDENT ([facility] jazmin, SHAUNA) Outpatient LERAYMD 02/29/2020 09:44:01 AM EDT [facility] Outpatient LERAYMD 02/21/2020 08:34:03 AM EDT [facility] Outpatient [facility] 02/21/2020 08:34:02 AM EDT [facility] 01:52:01 PM EDT [facility] Immunizations Vaccine Date Status Description Data Source(s) influenza, recombinant, quadrIvalent,injectable, prese rvative free 02/28/2021 03:41:00 PM EDT completed eCW1 ([facility]) COVID-19 VACC,MRNA(MODERNA)/PF 10/30/2020 12:00:00 AM EDT completed [facility] COVID-19 VACCINE Moderna 10/30/2020 12:00:00 AM EDT completed [facility] Vaccine Series Complete: YESThis Data wa s Submitted to [facility] Via [employer]. COVID-19 VACC,MRNA(MODERNA)/PF 10/05/2020 12:00:00 AM EDT completed [facility] COVID-19 VACCINE Moderna 10/05/2020 12:00:00 AM EDT completed [facility] Vaccine Series Complete: NOThis Data was Submitted to [facility] Via [employer]. influenza, recombinant, quadrIvalent,injectable, prese rvative free 05/07/2020 04:58:00 PM EST completed eCW1 ([facility]) influenza, recombinant, quadrIvalent,injectable, prese rvative free 05/07/2020 04:58:00 PM EST completed eCW1 ([facility]) influenza, recombinant, quadrIvalent,injectable, prese rvative free 05/07/2020 04:58:00 PM EST completed eCW1 ([facility]) influenza, recombinant, quadrIvalent,injectable, prese rvative free 05/07/2020 04:58:00 PM EST completed eCW1 ([facility]) influenza, recombinant, quadrIvalent,injectable, prese rvative free 05/07/2020 04:58:00 PM EST completed eCW1 ([facility]) influenza, recombinant, quadrIvalent,injectable, prese rvative free 05/07/2020 04:58:00 PM EST completed eCW1 ([facility]) influenza, recombinant, quadrIvalent,injectable, prese rvative free 05/07/2020 04:58:00 PM EST completed eCW1 ([facility]) influenza, recombinant, quadrIvalent,injectable, prese rvative free 05/07/2020 04:58:00 PM EST completed eCW1 ([facility]) influenza, recombinant, quadrIvalent,injectable, prese rvative free 05/07/2020 04:58:00 PM EST completed eCW1 ([facility]) influenza, recombinant, quadrIvalent,injectable, prese rvative free 05/07/2020 04:58:00 PM EST completed eCW1 ([facility]) influenza, recombinant, quadrIvalent,injectable, prese rvative free 05/07/2020 04:58:00 PM EST completed eCW1 ([facility]) influenza, recombinant, quadrIvalent,injectable, prese rvative free 05/07/2020 04:58:00 PM EST completed eCW1 ([facility]) influenza, recombinant, quadrIvalent,injectable, prese rvative free 05/07/2020 04:58:00 PM EST completed eCW1 ([facility]) influenza, recombinant, quadrIvalent,injectable, prese rvative free 05/07/2020 04:58:00 PM EST completed eCW1 ([facility]) influenza, recombinant, quadrIvalent,injectable, prese rvative free 05/07/2020 04:58:00 PM EST completed eCW1 ([facility]) influenza, recombinant, quadrIvalent,injectable, prese rvative free 05/07/2020 04:58:00 PM EST completed eCW1 ([facility]) influenza, recombinant, quadrIvalent,injectable, prese rvative free 05/07/2020 04:58:00 PM EST completed eCW1 ([facility]) influenza, recombinant, quadrIvalent,injectable, prese rvative free 05/07/2020 04:58:00 PM EST completed eCW1 ([facility]) influenza, recombinant, quadrIvalent,injectable, prese rvative free 05/07/2020 04:58:00 PM EST completed eCW1 ([facility]) influenza, recombinant, quadrIvalent,injectable, prese rvative free 05/07/2020 04:58:00 PM EST completed eCW1 ([facility]) influenza, recombinant, quadrIvalent,injectable, prese rvative free 05/07/2020 04:58:00 PM EST completed eCW1 ([facility]) influenza, recombinant, quadrIvalent,injectable, prese rvative free 05/07/2020 04:58:00 PM EST completed eCW1 ([facility]) influenza, recombinant, quadrIvalent,injectable, prese rvative free 05/07/2020 04:58:00 PM EST completed eCW1 ([facility]) influenza, recombinant, quadrIvalent,injectable, prese rvative free 05/07/2020 04:58:00 PM EST completed eCW1 ([facility]) influenza, recombinant, quadrIvalent,injectable, prese rvative free 05/07/2020 04:58:00 PM EST completed eCW1 ([facility]) influenza, recombinant, quadrIvalent,injectable, prese rvative free 05/07/2020 04:58:00 PM EST completed eCW1 ([facility]) influenza, recombinant, quadrIvalent,injectable, prese rvative free 05/07/2020 04:58:00 PM EST completed eCW1 ([facility]) influenza, recombinant, quadrIvalent,injectable, prese rvative free 05/07/2020 04:58:00 PM EST completed eCW1 ([facility]) influenza, recombinant, quadrIvalent,injectable, prese rvative free 05/07/2020 04:58:00 PM EST completed eCW1 ([facility]) influenza, recombinant, quadrIvalent,injectable, prese rvative free 05/07/2020 04:58:00 PM EST completed eCW1 ([facility]) influenza, recombinant, quadrIvalent,injectable, prese rvative free 05/07/2020 04:58:00 PM EST completed eCW1 ([facility]) influenza, recombinant, quadrIvalent,injectable, prese rvative free 05/07/2020 04:58:00 PM EST completed eCW1 ([facility]) influenza, recombinant, quadrIvalent,injectable, prese rvative free 05/07/2020 04:58:00 PM EST completed eCW1 ([facility]) Medications Medication Brand Name Start Date Product Form Dose Route Admi nistrative Instructions Pharmacy Instructions Status Indications Reaction Description Data Source(s) 875 mg 03/08/2021 12:00:00 AM EDT tablet 20 TAKE 1 TABLET BY MOUTH EVERY 12 HOURS FOR 10 DAYS TAKE 1 TABLET BY MOUTH EVERY 12 HOURS FOR 10 DAYS SOLD : 03/08/2021 [facility] Lorazepam 2 MG Oral Tablet LORAZEPAM 03/05/2021 12:00:00 AM EDT tablet 10 TAKE ONE TABLET BY MOUTH TWICE A DAY NEEDED FOR ANXIETY MAXIMUM DAILY DOSE = 2 TAKE ONE TABLET BY MOUTH TWICE A DAY NEEDED FOR ANXIETY MAXIMUM DAILY DOSE = 2 SOLD: 03/05/2021 [facility] Fluticasone propionate 0.05 MG/ACTUAT Metered Dose [place] 50 mcg/actuation FLUTICASONE PROPIONATE 03/02/2021 12:00:00 AM EDT spray,suspension 16 SPRAY 2 SPRAYS IN EACH NOSTRIL ONCE DAILY IN THE MORNING SPRAY 2 SPRAYS IN EACH NOSTRIL ONCE DAILY IN THE MORNING SOLD: 03/05/2021 [facility] 2.5 mg /3 mL (0.083 %) 03/02/2021 12:00:00 AM EDT solu tion for nebulization 75 INHALE THE CONTENTS OF 1 VIA L VIA NEBULIZER EVERY 6 HOURS NEEDED FOR SHORTNESS OF BREATH INHALE THE CONTENTS OF 1 VIAL VIA NEBULI ZER EVERY 6 HOURS NEEDED FOR SHORTNESS OF BREATH SOLD: 03/05/2021 [facility] Propranolol Hydrochloride 10 MG Oral Tablet Propranolo l HCl 10 MG Propranolol HCl 10 MG 02/26/2021 12:00:00 AM EDT 1.0 {tablet} ac tive Propranolol HCl 10 MG eCW1 ([facility]) quetiapine 25 MG Oral Tablet [Seroquel] Seroquel 25 MG Seroq uel 25 MG 02/26/2021 12:00:00 AM EDT 1.0 {tablet_at_bedtime} active Seroquel 25 MG eCW1 ([facility]) Zonegran 100 MG Zonegran 02/25/2021 01:00:00 AM EDT completed [facility] ([facility]) Propranolol HCl 10 MG Propranolol HCl 02/25/2021 01:00:00 AM EDT completed [facility] ([facility]) SEROquel 25 MG SEROquel 02/25/2021 01:00:00 AM EDT completed [facility] ([facility]) Albuterol Sulfate (2.5 MG/3ML) 0.083% Albuterol Sulfate 01:00:00 AM EDT completed NETSMAR T ([facility]) Azelastine HCl 0.05 % Azelastine HCl 02/25/2021 01:00:00 AM EDT completed [facility] ([facility]) Calcium-Vitamin D3 600-400 MG-UNIT Calcium-Vitamin D3 02/25 01:00:00 AM EDT completed [facility] T ([facility]) Onfi 10 MG Onfi 02/25/2021 01:00:00 AM EDT complet ed [facility]SM[facility] ([facility]) Synthroid 25 MCG Synthroid 02/25/2021 01:00:00 AM EDT completed [facility] ([facility]) Ketoconazole 2 % Ketoconazole 02/25/2021 01:00:00 AM EDT completed [facility] ([facility]) Fluticasone Propionate 50 MCG/ACT Fluticasone Propionate 08/2020 01:00:00 AM EDT completed [facility]SM[facility] T ([facility]) 10 mg 2021 12:00:00 AM EDT tablet 60 TAKE ONE TABLET BY MOUTH TWICE A DAY TAKE ONE TABLET BY MOUTH TWICE A DAY SOLD: 2021 [facility] 25 mg 2021 12:00:00 AM EDT tablet 30 TAKE ONE TABLET BY MOUTH IN THE EVENING NEEDED FOR SLEEP TAKE ONE TABLET BY MOUTH IN THE EVENING NEEDED FOR SLEEP SOLD: 2021 [facility] 10 mg 02/21/2021 12:00:00 AM EDT tablet 90 TAKE ONE AND ONE-HALF TABLETS BY MOUTH TWICE A DAY MAXIMUM DAILY DOSE = 3 TABLETS TAKE ONE AND ONE-HALF TABLETS BY MOUTH TWICE A DAY MAXIMUM DAILY DOSE = 3 TABLETS SOLD: 02/21/2021 [facility] 50 mg 12/18/2020 12:00:00 AM EDT tablet 30 TAKE ONE TABLET BY MOUTH EVERY MORNING TAKE ONE TABLET BY MOUTH EVERY MORNING SOLD: 12/21/2020 [facility] olanzapine 10 MG Oral Tablet OLANZAPINE 12/04/2020 12:00:00 AM EDT tab let 14 TAKE ONE TABLET BY MOUTH TWICE A DAY FOR PSYCHOSIS TAKE ONE TABLET BY MOUTH TWICE A DAY FOR PSYCHOSIS SOLD: 12/08/2020 [facility] 50 mg 11/24/2020 12:00:00 AM EDT tablet 60 TAKE TWO TABLETS BY MOUTH AT BEDTIME TAKE TWO TABLETS BY MOUTH AT BEDTIME SOLD: 11/29/2020 [facility] 10 mg 11/21/2020 12:00:00 AM EDT tablet 90 TAKE ONE AND ONE-HALF TABLET BY MOUTH TWO TIMES A DAY. MAXIMUM DAILY DOSE = 3 TABLETS TAKE ONE AND ONE-HALF TABLET BY MOUTH TWO TIMES A DAY. MAXIMUM DAILY DOSE = 3 TABLETS SOLD: 11/23/2020 [facility] pantoprazole 40 MG Delayed Release Oral Tablet PANTOPRAZOLE SODIUM 11/21/2020 12:00:00 AM EDT tablet,delayed release (DR/EC) 30 T ISAURA ONE TABLET BY MOUTH EVERY DAY TAKE ONE TABLET BY MOUTH EVERY DAY SOLD: 11/23/2020 [facility] olanzapine 10 MG Oral Tablet OLANZAPINE 11/13/2020 12:00:00 AM EDT tab let 13 TAKE 1 AND 1/2 TABLETS BY MOUTH AT BEDTIME FOR PSYCHOSIS TAKE 1 AND 1/2 TABLETS BY MOUTH AT BEDTIME FOR PSYCHOSIS SOLD: 11/13/2020 [facility] 40 mg 11/06/2020 12:00:00 AM EDT capsule 30 TAKE ONE CAPSULE BY MOUTH EVERY DAY IN THE MORNING TAKE ONE CAPSULE BY MOUTH EVERY DAY IN THE MORNING [facility] Fluoxetine 20 MG Oral Capsule FLUoxetine HCl 20 MG Ora l Capsule (PROZAC) FLUoxetine HCl 20 MG Oral Capsule (PROZAC) 11/03/2020 12:00:00 AM EDT 60 mg Oral active Take 3 capsules by m [facility] 20 mg 11/02/2020 12:00:00 AM EDT capsule 90 TAKE THREE CAPSULES BY MOUTH EVERY DAY TAKE THREE CAPSULES BY MOUTH EVERY DAY SOLD: 11/02/2020 [facility] 50 mg 11/02/2020 12:00:00 AM EDT tablet 60 TAKE ONE TABLET BY MOUTH TWICE A DAY TAKE ONE TABLET BY MOUTH TWICE A DAY SOLD: 11/02/2020 [facility] multivitamin tablet 1 tablet 2305-1316-32 11/01/2020 08:00:00 AM EDT 1 {tbl} Oral active 1 tablet, Oral , Daily Standard, First dose on Thu11/01/20 at 0800, For 30 days [facility] Medication administered onsite Levothyroxine Sodium 0.025 MG Oral Table t levothyroxine (SYNTHROID) tablet 25 mcg levothyroxine (SYNTHROID) tablet 25 mcg 11/01/2020 06:00:00 AM EDT 25 ug Oral active 25 mcg, Oral, Daily at 0600, First dose on Thu11/01/20 at 0600, For 30 days [facility] Medication administered onsite Chlorpromazine hydrochloride 50 MG Oral Tablet chlorproMAZINE HCl 50 MG Oral Tablet (THORAZINE) chlorproMAZINE HCl 50 MG Oral Tablet (THORAZINE) 11/01 12:00:00 AM EDT 50 mg Oral active Take 1 tablet by mouth Two Times Daily [facility] olopatadine 1 MG/ML Ophthalmic Solution olopatadine (PATANOL) 0.1 % ophthalmic solution 1 drop olopatadine (PATANOL) 0.1 % ophthalmic solution 1 drop 10/31/2020 08:00:00 PM EDT 1 [drp] Both Eyes active 1 drop, Both Eyes, 2 Times Daily, First dose on Thu10/31/20 at 2000, For 30 days [facility] Medication administered onsite Chlorpromazine hydrochloride 25 MG Oral Tablet chlorproMAZINE (THORAZINE) tablet 50 mg chlorproMAZINE (THORAZINE) tablet 50 mg 10/31/2020 01:15:00 PM E DT 50 mg Oral active 50 mg, Ora l, 2 Times Daily, First dose on Thu10/31/20 at 1315, For 30 days [facility] Medication administered onsite Eucalyptol 0.92 MG/ML / Menthol 0.42 MG/ ML / methyl salicylate 0.6 MG/ML / Thymol 0.64 MG/ML Mouthwash saliva substitute (BIOTENE) liquid 5 mL saliva substitute (BIOTENE) liquid 5 mL 10/31/2020 01:03:39 PM EDT 5 mL Mouth/Throat active 5 mL, Mouth/Thr oat, PRN, Dry Mouth, Starting on Thu10/31/20 at 1303, For 30 days [facility] Medication administered onsite Chlorpromazine hydrochloride 25 MG Oral Tablet chlorproMAZINE (THORAZINE) tablet 50 mg chlorproMAZINE (THORAZINE) tablet 50 mg 10/31/2020 01:03:18 PM E DT 50 mg Oral active 50 mg, Ora l, Daily PRN, Agitation, Starting on Thu10/31/20 at 1303, For 30 days [facility] Medication administered onsite zonisamide 100 MG Oral Capsule zonisamide (ZONEGRAN) c apsule 200 mg zonisamide (ZONEGRAN) capsule 200 mg 10/31/2020 12:15:00 PM EDT 200 mg Oral active 200 mg, Oral, 2 Times Daily, First dose on Thu10/31/20 at 1215, For 30 days [facility] Medication administered onsite clobazam 10 MG Oral Tablet cloBAZam (ONFI) tablet 15 m g cloBAZam (ONFI) tablet 15 mg 10/31/2020 12:15:00 PM EDT 15 mg Oral active 15 mg, Oral, 2 Times Daily, First dose on Thu10/31/20 at 1215, For 30 days [facility] Medication administered onsite atorvastatin 40 MG Oral Tablet atorvastatin (LIPITOR) tablet 20 mg atorvastatin (LIPITOR) tablet 20 mg 10/31/2020 12:15:00 PM EDT 20 mg Oral active 20 mg, Oral, Daily Standard, First dose on Thu10/31/20 at 1215, For 30 days [facility] Medication administered onsite Fluoxetine 20 MG Oral Capsule fluoxetine (PROZAC) caps ule 60 mg fluoxetine (PROZAC) capsule 60 mg 10/31/2020 12:15:00 PM EDT 60 mg Oral active 60 mg, Oral, Daily Standard, First dose on Thu10/31/20 at 1215, For 30 days [facility] Medication administered onsite albuterol (PROVENTIL HFA) inhaler 2 puff [id number] 10/31/2020 12:08:21 PM EDT 2 {puff} Inhalation active 2 pu ff, Inhalation, Every 6 hours PRN, Wheezing, Starting on Thu10/31/20 at 1208, For 4 days
Shake the inhaler well before each spray.
[facility] Medication administered onsite Ondansetron 4 MG Disintegrating Oral Tab let ondansetron (ZOFRAN-ODT) disintegrating tablet 4 mg ondansetron (ZOFRAN-ODT) disintegrating tablet 4 mg 10/31/2020 10:24:29 AM EDT 4 mg Oral active 4 mg, Oral, Every 6 hours PRN, Nausea, Starting on Thu10/31/20 at 1024, For 30 days
Dissolve on tongue.
[facility] Medication administered onsite Aluminum Hydroxide 40 MG/ML / Magnesium Hydroxide 40 MG/ML / Simethicone 4 MG/ML Oral Suspension aluminum & magnesium hydroxide-simethicone (MAALOX PLUS) 200-200-20 MG/5ML oral suspension 30 mL aluminum & magnesium hydroxide- simethicone (MAALOX PLUS) 200-200-20 MG/5ML oral suspension 30 mL 10/31/2020 10:24:23 AM EDT 30 mL Oral active 30 mL, Oral, Every 4 hours PRN, Heartburn, Indigestion, Starting on Thu10/31/20 at 1024, For 30 days
MDD 4
[facility] Medication administered onsite Magnesium Hydroxide 80 MG/ML Oral Suspen sol magnesium hydroxide (MILK OF MAGNESIA) 400 MG/5ML oral suspension 30 mL magnesium hydroxide (MILK OF MAGNESIA) 400 MG/5ML oral suspension 30 mL 10/31/2020 10:24:21 AM EDT 30 mL Oral active 30 mL, Oral, D aily PRN, Constipation, Starting on Thu10/31/20 at 1024, For 30 days
If serum creatinine > 2 notify provider before administering.
[facility] Medication administered onsite Acetaminophen 325 MG Oral Tablet acetaminophen (TYLENO L) tablet 650 mg acetaminophen (TYLENOL) tablet 650 mg 10/31/2020 10:24:12 AM EDT 65 0 mg Oral active 650 mg, Oral, E very 4 hours PRN, Mild Pain (Pain Scale Score 1- 3), Headaches, Starting on Thu10/31/20 at 1024, For 30 days
MDD 4
[facility] Medication administered onsite olanzapine 10 MG Oral Tablet OLANZAPINE 10/25/2020 12:00:00 AM EDT tab let 14 TAKE TWO TABLETS BY MOUTH AT BEDTIME FOR MOOD TAKE TWO TABLETS BY MOUTH AT BEDTIME FOR MOOD SOLD: 10/25/2020 [facility] Azelastine hydrochloride 0.5 MG/ML Ophthalmic Solution Azelastine HCl 0.05 % Azelastine HCl 0.05 % 10/01/2020 12:00:00 AM EDT active Azelastine HCl 0.05 % eCW1 ([facility]) 0.05 % 10/01/2020 12:00:00 AM EDT drops 6 INSTILL 1 DROP IN EACH EYE TWO TIMES A DAY INSTILL 1 DROP IN EACH EYE TWO TIMES A DAY SOLD: 10/03/2020 [facility] Azelastine hydrochloride 0.5 MG/ML Ophthalmic Solution Azelastine HCl 0.05 % Azelastine HCl 0.05 % 10/01/2020 12:00:00 AM EDT active Azelastine HCl 0.05 % eCW1 ([facility]) Azelastine hydrochloride 0.5 MG/ML Ophthalmic Solution Azelastine HCl 0.05 % Azelastine HCl 0.05 % 10/01/2020 12:00:00 AM EDT active Azelastine HCl 0.05 % eCW1 ([facility]) Azelastine hydrochloride 0.5 MG/ML Ophthalmic Solution Azelastine HCl 0.05 % Azelastine HCl 0.05 % 10/01/2020 12:00:00 AM EDT active Azelastine HCl 0.05 % eCW1 ([facility]) Azelastine hydrochloride 0.5 MG/ML Ophthalmic Solution Azelastine HCl 0.05 % Azelastine HCl 0.05 % 10/01/2020 12:00:00 AM EDT active Azelastine HCl 0.05 % eCW1 ([facility]) Azelastine hydrochloride 0.5 MG/ML Ophthalmic Solution Azelastine HCl 0.05 % Azelastine HCl 0.05 % 10/01/2020 12:00:00 AM EDT active Azelastine HCl 0.05 % eCW1 ([facility]) Azelastine hydrochloride 0.5 MG/ML Ophthalmic Solution Azelastine HCl 0.05 % Azelastine HCl 0.05 % 10/01/2020 12:00:00 AM EDT active Azelastine HCl 0.05 % eCW1 ([facility]) Azelastine hydrochloride 0.5 MG/ML Ophthalmic Solution Azelastine HCl 0.05 % Azelastine HCl 0.05 % 10/01/2020 12:00:00 AM EDT active Azelastine HCl 0.05 % eCW1 ([facility]) Azelastine hydrochloride 0.5 MG/ML Ophthalmic Solution Azelastine HCl 0.05 % Azelastine HCl 0.05 % 10/01/2020 12:00:00 AM EDT active Azelastine HCl 0.05 % eCW1 ([facility]) Azelastine hydrochloride 0.5 MG/ML Ophthalmic Solution Azelastine HCl 0.05 % Azelastine HCl 0.05 % 10/01/2020 12:00:00 AM EDT active Azelastine HCl 0.05 % eCW1 ([facility]) Azelastine hydrochloride 0.5 MG/ML Ophthalmic Solution Azelastine HCl 0.05 % Azelastine HCl 0.05 % 10/01/2020 12:00:00 AM EDT active Azelastine HCl 0.05 % eCW1 ([facility]) 0.05 % 10/01/2020 12:00:00 AM EDT drops 6 INSTILL 1 DROP IN EACH EYE TWO TIMES A DAY INSTILL 1 DROP IN EACH EYE TWO TIMES A DAY SOLD: 10/28/2020 [facility] Azelastine hydrochloride 0.5 MG/ML Ophthalmic Solution Azelastine HCl 0.05 % Azelastine HCl 0.05 % 10/01/2020 12:00:00 AM EDT active Azelastine HCl 0.05 % eCW1 ([facility]) 0.05 % 10/01/2020 12:00:00 AM EDT drops 6 INSTILL 1 DROP IN EACH EYE TWO TIMES A DAY INSTILL 1 DROP IN EACH EYE TWO TIMES A DAY SOLD: 02/25/2021 [facility] Azelastine hydrochloride 0.5 MG/ML Ophthalmic Solution Azelastine HCl 0.05 % Azelastine HCl 0.05 % 10/01/2020 12:00:00 AM EDT active Azelastine HCl 0.05 % eCW1 ([facility]) olanzapine 20 MG Oral Tablet OLANZapine 20 MG Oral Tab let (ZYPREXA) OLANZapine 20 MG Oral Tablet (ZYPREXA) 09/29/2020 12:00:00 AM EDT 20 mg Oral aborted Take 1 tablet by mouth nightly [facility] Benzoyl Peroxide 0.05 MG/MG / Erythromyc in 0.03 MG/MG Topical Gel Benzoyl Peroxide-Erythromycin 5-3 % Benzoyl Peroxide-Erythromycin 5-3 % 09/18/2020 12:00:00 AM EDT active Benzoyl Peroxide-Erythromycin 5-3 % eCW1 ([facility]) Benzoyl Peroxide 0.05 MG/MG / Erythromyc in 0.03 MG/MG Topical Gel Benzoyl Peroxide-Erythromycin 5-3 % Benzoyl Peroxide-Erythromycin 5-3 % 09/18/2020 12:00:00 AM EDT active Benzoyl Peroxide-Erythromycin 5-3 % eCW1 ([facility]) Benzoyl Peroxide 0.05 MG/MG / Erythromyc in 0.03 MG/MG Topical Gel Benzoyl Peroxide-Erythromycin 5-3 % Benzoyl Peroxide-Erythromycin 5-3 % 09/18/2020 12:00:00 AM EDT active Benzoyl Peroxide-Erythromycin 5-3 % eCW1 ([facility]) Benzoyl Peroxide 0.05 MG/MG / Erythromyc in 0.03 MG/MG Topical Gel Benzoyl Peroxide-Erythromycin 5-3 % Benzoyl Peroxide-Erythromycin 5-3 % 09/18/2020 12:00:00 AM EDT active Benzoyl Peroxide-Erythromycin 5-3 % eCW1 ([facility]) 25 mcg 09/18/2020 12:00:00 AM EDT tablet 30 TAKE ONE TABLET BY MOUTH EVERY DAY IN THE MORNING ON AN EMPTY STOMACH TAKE ONE TABLET BY MOUTH EVERY DAY IN MORNING ON AN EMPTY STOMACH SOLD: 02/25/2021 [facility] Benzoyl Peroxide 0.05 MG/MG / Erythromyc in 0.03 MG/MG Topical Gel Benzoyl Peroxide-Erythromycin 5-3 % Benzoyl Peroxide-Erythromycin 5-3 % 09/18/2020 12:00:00 AM EDT active Benzoyl Peroxide-Erythromycin 5-3 % eCW1 ([facility]) Benzoyl Peroxide 0.05 MG/MG / Erythromycin 0.03 MG/MG Topical Gel 3-5 % ERYTHROMYCIN/BENZOYL PEROXIDE 09/18/2020 12:00:00 AM EDT gel 46 APPLY A THIN LAYER TO AFFECTED AREA(S) ON FACE, CHEST AND BACK TWO TIMES A DAY APPLY A THIN LAYER TO AFFECTED AREA(S) ON FACE, CHEST AND BACK TWO TIMES A DAY SOLD: 03/05/2021 [facility] Benzoyl Peroxide 0.05 MG/MG / Erythromyc in 0.03 MG/MG Topical Gel Benzoyl Peroxide-Erythromycin 5-3 % Benzoyl Peroxide-Erythromycin 5-3 % 09/18/2020 12:00:00 AM EDT active Benzoyl Peroxide-Erythromycin 5-3 % eCW1 ([facility]) atorvastatin 20 MG Oral Tablet ATORVASTATIN CALCIUM 09/18/2020 1 2:00:00 AM EDT tablet 30 TAKE ONE TABLET BY MOUTH EVERY D AY TAKE ONE TABLET BY MOUTH EVERY DAY SOLD: 09/19/2020 [facility] Benzoyl Peroxide 0.05 MG/MG / Erythromycin 0.03 MG/MG Topical Gel 3-5 % ERYTHROMYCIN/BENZOYL PEROXIDE 09/18/2020 12:00:00 AM EDT gel 46 APPLY A THIN LAYER TO AFFECTED AREA(S) ON FACE, CHEST AND BACK TWO TIMES A DAY APPLY A THIN LAYER TO AFFECTED AREA(S) ON FACE, CHEST AND BACK TWO TIMES A DAY SOLD: 10/28/2020 [facility] Benzoyl Peroxide 0.05 MG/MG / Erythromyc in 0.03 MG/MG Topical Gel Benzoyl Peroxide-Erythromycin 5-3 % Benzoyl Peroxide-Erythromycin 5-3 % 09/18/2020 12:00:00 AM EDT active Benzoyl Peroxide-Erythromycin 5-3 % eCW1 ([facility]) Benzoyl Peroxide 0.05 MG/MG / Erythromyc in 0.03 MG/MG Topical Gel Benzoyl Peroxide-Erythromycin 5-3 % Benzoyl Peroxide-Erythromycin 5-3 % 09/18/2020 12:00:00 AM EDT active Benzoyl Peroxide-Erythromycin 5-3 % eCW1 ([facility]) Benzoyl Peroxide 0.05 MG/MG / Erythromyc in 0.03 MG/MG Topical Gel Benzoyl Peroxide-Erythromycin 5-3 % Benzoyl Peroxide-Erythromycin 5-3 % 09/18/2020 12:00:00 AM EDT active Benzoyl Peroxide-Erythromycin 5-3 % eCW1 ([facility]) Benzoyl Peroxide 0.05 MG/MG / Erythromyc in 0.03 MG/MG Topical Gel Benzoyl Peroxide-Erythromycin 5-3 % Benzoyl Peroxide-Erythromycin 5-3 % 09/18/2020 12:00:00 AM EDT active Benzoyl Peroxide-Erythromycin 5-3 % eCW1 ([facility]) 10 mg 09/18/2020 12:00:00 AM EDT tablet 90 TAKE 1 & 1/2 TABLETS BY MOUTH TWO TIMES A DAY , MAXIMUM DAILY DOSE = 3 TABLETS TAKE 1 & 1/2 TABLETS BY MOUTH TWO TIMES A DAY , MAXIMUM DAILY DOSE = 3 TABLETS SOLD: 09/19/2020 [facility] Benzoyl Peroxide 0.05 MG/MG / Erythromyc in 0.03 MG/MG Topical Gel Benzoyl Peroxide-Erythromycin 5-3 % Benzoyl Peroxide-Erythromycin 5-3 % 09/18/2020 12:00:00 AM EDT active Benzoyl Peroxide-Erythromycin 5-3 % [facility] [facility] atorvastatin 20 MG Oral Tablet ATORVASTATIN CALCIUM 09/18/2020 1 2:00:00 AM EDT tablet 30 TAKE ONE TABLET BY MOUTH EVERY D AY TAKE ONE TABLET BY MOUTH EVERY DAY SOLD: 10/28/2020 [facility] atorvastatin 20 MG Oral Tablet ATORVASTATIN CALCIUM 09/18/2020 1 2:00:00 AM EDT tablet 30 TAKE ONE TABLET BY MOUTH EVERY D AY TAKE ONE TABLET BY MOUTH EVERY DAY SOLD: 12/08/2020 [facility] atorvastatin 20 MG Oral Tablet ATORVASTATIN CALCIUM 09/18/2020 1 2:00:00 AM EDT tablet 30 TAKE ONE TABLET BY MOUTH EVERY D AY TAKE ONE TABLET BY MOUTH EVERY DAY SOLD: 02/25/2021 [facility] 25 mcg 09/18/2020 12:00:00 AM EDT tablet 30 TAKE ONE TABLET BY MOUTH EVERY DAY IN THE MORNING ON AN EMPTY STOMACH TAKE ONE TABLET BY MOUTH EVERY DAY IN MORNING ON AN EMPTY STOMACH SOLD: 09/19/2020 [facility] Benzoyl Peroxide 0.05 MG/MG / Erythromyc in 0.03 MG/MG Topical Gel Benzoyl Peroxide-Erythromycin 5-3 % Benzoyl Peroxide-Erythromycin 5-3 % 09/18/2020 12:00:00 AM EDT active Benzoyl Peroxide-Erythromycin 5-3 % eCW1 ([facility]) Benzoyl Peroxide 0.05 MG/MG / Erythromyc in 0.03 MG/MG Topical Gel Benzoyl Peroxide-Erythromycin 5-3 % Benzoyl Peroxide-Erythromycin 5-3 % 09/18/2020 12:00:00 AM EDT active Benzoyl Peroxide-Erythromycin 5-3 % eCW1 ([facility]) Benzoyl Peroxide 0.05 MG/MG / Erythromyc in 0.03 MG/MG Topical Gel Benzoyl Peroxide-Erythromycin 5-3 % Benzoyl Peroxide-Erythromycin 5-3 % 09/18/2020 12:00:00 AM EDT active Benzoyl Peroxide-Erythromycin 5-3 % eCW1 ([facility]) Benzoyl Peroxide 0.05 MG/MG / Erythromyc in 0.03 MG/MG Topical Gel Benzoyl Peroxide-Erythromycin 5-3 % Benzoyl Peroxide-Erythromycin 5-3 % 09/18/2020 12:00:00 AM EDT active Benzoyl Peroxide-Erythromycin 5-3 % eCW1 ([facility]) Benzoyl Peroxide 0.05 MG/MG / Erythromyc in 0.03 MG/MG Topical Gel Benzoyl Peroxide-Erythromycin 5-3 % Benzoyl Peroxide-Erythromycin 5-3 % 09/18/2020 12:00:00 AM EDT active Benzoyl Peroxide-Erythromycin 5-3 % eCW1 ([facility]) Divalproex Sodium 125 MG Delayed Release Oral Capsule divalproex Sodium (DEPAKOTE SPRINKLE) 125 MG capsule divalproex Sodium (DEPAKOTE SPRINKLE) 12 5 MG capsule 09/11/2020 12:00:00 AM EDT 250 mg Oral active Take 2 capsules (250 mg total) by mouth 2 (two) times a day [facility] 2.5 mg 09/03/2020 12:00:00 AM EDT tablet 14 TAKE ONE TABLET BY MOUTH TWICE A DAY FOR ELEVATED PROLACTIN TAKE ONE TABLET BY MOUTH TWICE A DAY FOR ELEVATED PROLACTIN SOLD: 09/03/2020 [facility] 2.5 mg 09/03/2020 12:00:00 AM EDT tablet 14 TAKE ONE TABLET BY MOUTH TWICE A DAY FOR ELEVATED PROLACTIN TAKE ONE TABLET BY MOUTH TWICE A DAY FOR ELEVATED PROLACTIN SOLD: 09/10/2020 [facility] 40 mg 07/31/2020 12:00:00 AM EST capsule 30 TAKE ONE CAPSULE BY MOUTH EVERY DAY TAKE ONE CAPSULE BY MOUTH EVERY DAY SOLD: 08/01/2020 [facility] olanzapine 10 MG Oral Tablet OLANZAPINE 07/31/2020 12:00:00 AM EST tab let 30 TAKE ONE TABLET BY MOUTH EVERY EVENING TAKE ONE TABLET BY MOUTH EVERY EVENING SOLD: 08/01/2020 [facility] Fluoxetine 40 MG Oral Capsule FLUoxetine HCl 40 MG FLUoxetin e HCl 40 MG 07/29/2020 12:00:00 AM EST 1.0 {capsule} active FLUoxetine HCl 40 MG eCW1 ([facility]) Ciprofloxacin 250 MG Oral Tablet Ciprofloxacin HCl 250 MG Ciprofloxacin HCl 250 MG 07/29/2020 12:00:00 AM EST 1.0 {tablet} suspe nded Ciprofloxacin HCl 250 MG eCW1 ([facility]) Fluoxetine 40 MG Oral Capsule FLUoxetine HCl 40 MG FLUoxetin e HCl 40 MG 07/29/2020 12:00:00 AM EST 1.0 {capsule} active FLUoxetine HCl 40 MG eCW1 ([facility]) Ciprofloxacin 250 MG Oral Tablet Ciprofloxacin HCl 250 MG Ciprofloxacin HCl 250 MG 07/29/2020 12:00:00 AM EST 1.0 {tablet} activ e Ciprofloxacin HCl 250 MG eCW1 ([facility]) 250 mg 07/29/2020 12:00:00 AM EST tablet 3 TAKE ONE TABLET BY MOUTH EVERY DAY AT 0600 TAKE ONE TABLET BY MOUTH EVERY DAY AT 0600 SOLD: 07/29/2020 [facility] Fluoxetine 40 MG Oral Capsule FLUoxetine HCl 40 MG FLUoxetin e HCl 40 MG 07/29/2020 12:00:00 AM EST 1.0 {capsule} active FLUoxetine HCl 40 MG eCW1 ([facility]) Fluoxetine 40 MG Oral Capsule FLUoxetine HCl 40 MG FLUoxetin e HCl 40 MG 07/29/2020 12:00:00 AM EST 1.0 {capsule} active FLUoxetine HCl 40 MG eCW1 ([facility]) Ciprofloxacin 250 MG Oral Tablet Ciprofloxacin HCl 250 MG Ciprofloxacin HCl 250 MG 07/29/2020 12:00:00 AM EST 1.0 {tablet} suspe nded Ciprofloxacin HCl 250 MG eCW1 ([facility]) Ciprofloxacin 250 MG Oral Tablet Ciprofloxacin HCl 250 MG Ciprofloxacin HCl 250 MG 07/29/2020 12:00:00 AM EST 1.0 {tablet} suspe nded Ciprofloxacin HCl 250 MG eCW1 ([facility]) Fluoxetine 40 MG Oral Capsule FLUoxetine HCl 40 MG FLUoxetin e HCl 40 MG 07/29/2020 12:00:00 AM EST 1.0 {capsule} active FLUoxetine HCl 40 MG eCW1 ([facility]) Fluoxetine 40 MG Oral Capsule FLUoxetine HCl 40 MG FLUoxetin e HCl 40 MG 07/29/2020 12:00:00 AM EST 1.0 {capsule} active FLUoxetine HCl 40 MG eCW1 ([facility]) Ciprofloxacin 250 MG Oral Tablet Ciprofloxacin HCl 250 MG Ciprofloxacin HCl 250 MG 07/29/2020 12:00:00 AM EST 1.0 {tablet} activ e Ciprofloxacin HCl 250 MG eCW1 ([facility]) Fluoxetine 40 MG Oral Capsule FLUoxetine HCl 40 MG FLUoxetin e HCl 40 MG 07/29/2020 12:00:00 AM EST 1.0 {capsule} active FLUoxetine HCl 40 MG eCW1 ([facility]) benztropine mesylate 0.5 MG Oral Tablet Benztropine Me sylate 0.5 MG Benztropine Mesylate 0.5 MG 07/29/2020 12:00:00 AM EST 1.0 {tablet_at_bedtime} active Benztropine Mesylate 0.5 MG eCW1 ([facility]) Fluoxetine 40 MG Oral Capsule FLUoxetine HCl 40 MG FLUoxetin e HCl 40 MG 07/29/2020 12:00:00 AM EST 1.0 {capsule} active FLUoxetine HCl 40 MG eCW1 ([facility]) Ciprofloxacin 250 MG Oral Tablet Ciprofloxacin HCl 250 MG Ciprofloxacin HCl 250 MG 07/29/2020 12:00:00 AM EST 1.0 {tablet} activ e Ciprofloxacin HCl 250 MG eCW1 ([facility]) Ciprofloxacin 250 MG Oral Tablet Ciprofloxacin HCl 250 MG Ciprofloxacin HCl 250 MG 07/29/2020 12:00:00 AM EST 1.0 {tablet} suspe nded Ciprofloxacin HCl 250 MG eCW1 ([facility]) Ciprofloxacin 250 MG Oral Tablet Ciprofloxacin HCl 250 MG Ciprofloxacin HCl 250 MG 07/29/2020 12:00:00 AM EST 1.0 {tablet} activ e Ciprofloxacin HCl 250 MG eCW1 ([facility]) Ciprofloxacin 250 MG Oral Tablet Ciprofloxacin HCl 250 MG Ciprofloxacin HCl 250 MG 07/29/2020 12:00:00 AM EST 1.0 {tablet} activ e Ciprofloxacin HCl 250 MG eCW1 ([facility]) Ciprofloxacin 250 MG Oral Tablet Ciprofloxacin HCl 250 MG Ciprofloxacin HCl 250 MG 07/29/2020 12:00:00 AM EST 1.0 {tablet} suspe nded Ciprofloxacin HCl 250 MG eCW1 ([facility]) Fluoxetine 40 MG Oral Capsule FLUoxetine HCl 40 MG FLUoxetin e HCl 40 MG 07/29/2020 12:00:00 AM EST 1.0 {capsule} active FLUoxetine HCl 40 MG eCW1 ([facility]) Ciprofloxacin 250 MG Oral Tablet Ciprofloxacin HCl 250 MG Ciprofloxacin HCl 250 MG 07/29/2020 12:00:00 AM EST 1.0 {tablet} suspe nded Ciprofloxacin HCl 250 MG eCW1 ([facility]) Fluoxetine 40 MG Oral Capsule FLUoxetine HCl 40 MG FLUoxetin e HCl 40 MG 07/29/2020 12:00:00 AM EST 1.0 {capsule} active FLUoxetine HCl 40 MG eCW1 ([facility]) Ciprofloxacin 250 MG Oral Tablet Ciprofloxacin HCl 250 MG Ciprofloxacin HCl 250 MG 07/29/2020 12:00:00 AM EST 1.0 {tablet} activ e Ciprofloxacin HCl 250 MG eCW1 ([facility]) Ciprofloxacin 250 MG Oral Tablet Ciprofloxacin HCl 250 MG Ciprofloxacin HCl 250 MG 07/29/2020 12:00:00 AM EST 1.0 {tablet} suspe nded Ciprofloxacin HCl 250 MG eCW1 ([facility]) Fluoxetine 40 MG Oral Capsule FLUoxetine HCl 40 MG FLUoxetin e HCl 40 MG 07/29/2020 12:00:00 AM EST 1.0 {capsule} active FLUoxetine HCl 40 MG eCW1 ([facility]) Ciprofloxacin 250 MG Oral Tablet Ciprofloxacin HCl 250 MG Ciprofloxacin HCl 250 MG 07/29/2020 12:00:00 AM EST 1.0 {tablet} suspe nded Ciprofloxacin HCl 250 MG eCW1 ([facility]) Fluoxetine 40 MG Oral Capsule FLUoxetine HCl 40 MG FLUoxetin e HCl 40 MG 07/29/2020 12:00:00 AM EST 1.0 {capsule} active FLUoxetine HCl 40 MG eCW1 ([facility]) Fluoxetine 40 MG Oral Capsule FLUoxetine HCl 40 MG FLUoxetin e HCl 40 MG 07/29/2020 12:00:00 AM EST 1.0 {capsule} active FLUoxetine HCl 40 MG eCW1 ([facility]) Ciprofloxacin 250 MG Oral Tablet Ciprofloxacin HCl 250 MG Ciprofloxacin HCl 250 MG 07/29/2020 12:00:00 AM EST 1.0 {tablet} suspe nded Ciprofloxacin HCl 250 MG eCW1 ([facility]) Ciprofloxacin 250 MG Oral Tablet Ciprofloxacin HCl 250 MG Ciprofloxacin HCl 250 MG 07/29/2020 12:00:00 AM EST 1.0 {tablet} suspe nded Ciprofloxacin HCl 250 MG eCW1 ([facility]) Fluoxetine 40 MG Oral Capsule FLUoxetine HCl 40 MG FLUoxetin e HCl 40 MG 07/29/2020 12:00:00 AM EST 1.0 {capsule} active FLUoxetine HCl 40 MG eCW1 ([facility]) Fluoxetine 40 MG Oral Capsule FLUoxetine HCl 40 MG FLUoxetin e HCl 40 MG 07/29/2020 12:00:00 AM EST 1.0 {capsule} active FLUoxetine HCl 40 MG eCW1 ([facility]) Ciprofloxacin 250 MG Oral Tablet Ciprofloxacin HCl 250 MG Ciprofloxacin HCl 250 MG 07/29/2020 12:00:00 AM EST 1.0 {tablet} activ e Ciprofloxacin HCl 250 MG eCW1 ([facility]) Ciprofloxacin 250 MG Oral Tablet Ciprofloxacin HCl 250 MG Ciprofloxacin HCl 250 MG 07/29/2020 12:00:00 AM EST 1.0 {tablet} suspe nded Ciprofloxacin HCl 250 MG eCW1 ([facility]) 10 mg 07/29/2020 12:00:00 AM EST tablet 90 TAKE ONE AND ONE-HALF TABLETS BY MOUTH TWICE A DAY MAXIMUM DAILY DOSE = 3 TAKE ONE AND ONE-HALF TABLETS BY MOUTH TWICE A DAY MAXIMUM DAILY DOSE = 3 SOLD: 07/29/2020 [facility] Fluoxetine 40 MG Oral Capsule FLUoxetine HCl 40 MG FLUoxetin e HCl 40 MG 07/29/2020 12:00:00 AM EST 1.0 {capsule} active FLUoxetine HCl 40 MG eCW1 ([facility]) benztropine mesylate 0.5 MG Oral Tablet Benztropine Me sylate 0.5 MG Benztropine Mesylate 0.5 MG 07/29/2020 12:00:00 AM EST 1.0 {tablet_at_bedtime} active Benztropine Mesylate 0.5 MG eCW1 ([facility]) Ciprofloxacin 250 MG Oral Tablet Ciprofloxacin HCl 250 MG Ciprofloxacin HCl 250 MG 07/29/2020 12:00:00 AM EST 1.0 {tablet} suspe nded Ciprofloxacin HCl 250 MG eCW1 ([facility]) Ciprofloxacin 250 MG Oral Tablet Ciprofloxacin HCl 250 MG Ciprofloxacin HCl 250 MG 07/29/2020 12:00:00 AM EST 1.0 {tablet} activ e Ciprofloxacin HCl 250 MG eCW1 ([facility]) benztropine mesylate 0.5 MG Oral Tablet Benztropine Me sylate 0.5 MG Benztropine Mesylate 0.5 MG 07/29/2020 12:00:00 AM EST 1.0 {tablet_at_bedtime} active Benztropine Mesylate 0.5 MG eCW1 ([facility]) Fluoxetine 40 MG Oral Capsule FLUoxetine HCl 40 MG FLUoxetin e HCl 40 MG 07/29/2020 12:00:00 AM EST 1.0 {capsule} active FLUoxetine HCl 40 MG eCW1 ([facility]) benztropine mesylate 0.5 MG Oral Tablet Benztropine Me sylate 0.5 MG Benztropine Mesylate 0.5 MG 07/29/2020 12:00:00 AM EST 1.0 {tablet_at_bedtime} active Benztropine Mesylate 0.5 MG eCW1 ([facility]) Fluoxetine 40 MG Oral Capsule FLUoxetine HCl 40 MG FLUoxetin e HCl 40 MG 07/29/2020 12:00:00 AM EST 1.0 {capsule} active FLUoxetine HCl 40 MG eCW1 ([facility]) Fluoxetine 40 MG Oral Capsule FLUoxetine HCl 40 MG FLUoxetin e HCl 40 MG 07/29/2020 12:00:00 AM EST 1.0 {capsule} active FLUoxetine HCl 40 MG eCW1 ([facility]) Fluoxetine 40 MG Oral Capsule FLUoxetine HCl 40 MG FLUoxetin e HCl 40 MG 07/29/2020 12:00:00 AM EST 1.0 {capsule} active FLUoxetine HCl 40 MG eCW1 ([facility]) Ciprofloxacin 250 MG Oral Tablet Ciprofloxacin HCl 250 MG Ciprofloxacin HCl 250 MG 07/29/2020 12:00:00 AM EST 1.0 {tablet} suspe nded Ciprofloxacin HCl 250 MG eCW1 ([facility]) Fluoxetine 40 MG Oral Capsule FLUoxetine HCl 40 MG FLUoxetin e HCl 40 MG 07/29/2020 12:00:00 AM EST 1.0 {capsule} active FLUoxetine HCl 40 MG eCW1 ([facility]) Ciprofloxacin 250 MG Oral Tablet Ciprofloxacin HCl 250 MG Ciprofloxacin HCl 250 MG 07/29/2020 12:00:00 AM EST 1.0 {tablet} suspe nded Ciprofloxacin HCl 250 MG eCW1 ([facility]) Fluoxetine 40 MG Oral Capsule FLUoxetine HCl 40 MG FLUoxetin e HCl 40 MG 07/29/2020 12:00:00 AM EST 1.0 {capsule} active FLUoxetine HCl 40 MG eCW1 ([facility]) 10,000 unit- 1 mg/mL 07/28/2020 12:00:00 AM EST drops 10 INSTILL ONE DROP IN EACH EYE FOUR TIMES A DAY INSTILL ONE DROP IN EACH EYE FOUR TIMES A DAY SOLD: 07/28/2020 [facility] Polymyxin B 20785 UNT/ML / Trimethoprim 1 MG/ML Ophthalmic Solution [Polytrim] Polytrim 64891-4.1 UNIT/ML Polytrim 07128-7.1 UNIT/ML 07/27/2020 12:00:00 AM EST active Polytrim 95507-5. 1 UNIT/ML eCW1 ([facility]) Polymyxin B 26382 UNT/ML / Trimethoprim 1 MG/ML Ophthalmic Solution [Polytrim] Polytrim 79514-0.1 UNIT/ML Polytrim 77126-4.1 UNIT/ML 07/27/2020 12:00:00 AM EST active Polytrim 86941-4. 1 UNIT/ML eCW1 ([facility]) Polymyxin B 37559 UNT/ML / Trimethoprim 1 MG/ML Ophthalmic Solution [Polytrim] Polytrim 79215-2.1 UNIT/ML Polytrim 60639-8.1 UNIT/ML 07/27/2020 12:00:00 AM EST active Polytrim 02623-2. 1 UNIT/ML eCW1 ([facility]) Polymyxin B 24084 UNT/ML / Trimethoprim 1 MG/ML Ophthalmic Solution [Polytrim] Polytrim 71901-7.1 UNIT/ML Polytrim 55480-9.1 UNIT/ML 07/27/2020 12:00:00 AM EST active Polytrim 50368-0. 1 UNIT/ML eCW1 ([facility]) Polymyxin B 72802 UNT/ML / Trimethoprim 1 MG/ML Ophthalmic Solution [Polytrim] Polytrim 55916-0.1 UNIT/ML Polytrim 66639-3.1 UNIT/ML 07/27/2020 12:00:00 AM EST active Polytrim 88467-0. 1 UNIT/ML eCW1 ([facility]) Polymyxin B 59007 UNT/ML / Trimethoprim 1 MG/ML Ophthalmic Solution [Polytrim] Polytrim 17955-8.1 UNIT/ML Polytrim 59512-7.1 UNIT/ML 07/27/2020 12:00:00 AM EST active Polytrim 93590-0. 1 UNIT/ML eCW1 ([facility]) Polymyxin B 47784 UNT/ML / Trimethoprim 1 MG/ML Ophthalmic Solution [Polytrim] Polytrim 90840-6.1 UNIT/ML Polytrim 68344-4.1 UNIT/ML 07/27/2020 12:00:00 AM EST active Polytrim 86293-1. 1 UNIT/ML eCW1 ([facility]) Polymyxin B 34300 UNT/ML / Trimethoprim 1 MG/ML Ophthalmic Solution [Polytrim] Polytrim 19640-4.1 UNIT/ML Polytrim 46323-7.1 UNIT/ML 07/27/2020 12:00:00 AM EST active Polytrim 71650-4. 1 UNIT/ML eCW1 ([facility]) Polymyxin B 29513 UNT/ML / Trimethoprim 1 MG/ML Ophthalmic Solution [Polytrim] Polytrim 30984-5.1 UNIT/ML Polytrim 50334-1.1 UNIT/ML 07/27/2020 12:00:00 AM EST active Polytrim 67008-4. 1 UNIT/ML eCW1 ([facility]) Polymyxin B 56339 UNT/ML / Trimethoprim 1 MG/ML Ophthalmic Solution [Polytrim] Polytrim 64862-2.1 UNIT/ML Polytrim 40110-9.1 UNIT/ML 07/27/2020 12:00:00 AM EST active Polytrim 91646-8. 1 UNIT/ML eCW1 ([facility]) Polymyxin B 49681 UNT/ML / Trimethoprim 1 MG/ML Ophthalmic Solution [Polytrim] Polytrim 37155-6.1 UNIT/ML Polytrim 28469-7.1 UNIT/ML 07/27/2020 12:00:00 AM EST active Polytrim 10594-0. 1 UNIT/ML eCW1 ([facility]) Polymyxin B 33596 UNT/ML / Trimethoprim 1 MG/ML Ophthalmic Solution [Polytrim] Polytrim 96634-6.1 UNIT/ML Polytrim 64548-1.1 UNIT/ML 07/27/2020 12:00:00 AM EST active Polytrim 78549-9. 1 UNIT/ML eCW1 ([facility]) Polymyxin B 77181 UNT/ML / Trimethoprim 1 MG/ML Ophthalmic Solution [Polytrim] Polytrim 22039-2.1 UNIT/ML Polytrim 45068-2.1 UNIT/ML 07/27/2020 12:00:00 AM EST active Polytrim 98913-9. 1 UNIT/ML eCW1 ([facility]) Polymyxin B 95172 UNT/ML / Trimethoprim 1 MG/ML Ophthalmic Solution [Polytrim] Polytrim 48636-8.1 UNIT/ML Polytrim 52986-8.1 UNIT/ML 07/27/2020 12:00:00 AM EST active Polytrim 16304-9. 1 UNIT/ML eCW1 ([facility]) Polymyxin B 36784 UNT/ML / Trimethoprim 1 MG/ML Ophthalmic Solution [Polytrim] Polytrim 10917-5.1 UNIT/ML Polytrim 70108-2.1 UNIT/ML 07/27/2020 12:00:00 AM EST active Polytrim 90612-1. 1 UNIT/ML eCW1 ([facility]) Polymyxin B 53821 UNT/ML / Trimethoprim 1 MG/ML Ophthalmic Solution [Polytrim] Polytrim 57507-3.1 UNIT/ML Polytrim 72672-7.1 UNIT/ML 07/27/2020 12:00:00 AM EST active Polytrim 93916-9. 1 UNIT/ML eCW1 ([facility]) Polymyxin B 61853 UNT/ML / Trimethoprim 1 MG/ML Ophthalmic Solution [Polytrim] Polytrim 63389-1.1 UNIT/ML Polytrim 52143-0.1 UNIT/ML 07/27/2020 12:00:00 AM EST active Polytrim 87441-1. 1 UNIT/ML eCW1 ([facility]) Polymyxin B 20305 UNT/ML / Trimethoprim 1 MG/ML Ophthalmic Solution [Polytrim] Polytrim 99396-3.1 UNIT/ML Polytrim 56611-2.1 UNIT/ML 07/27/2020 12:00:00 AM EST active Polytrim 84037-7. 1 UNIT/ML eCW1 ([facility]) Polymyxin B 22402 UNT/ML / Trimethoprim 1 MG/ML Ophthalmic Solution [Polytrim] Polytrim 70505-5.1 UNIT/ML Polytrim 09186-9.1 UNIT/ML 07/27/2020 12:00:00 AM EST active Polytrim 35896-8. 1 UNIT/ML eCW1 ([facility]) Polymyxin B 46824 UNT/ML / Trimethoprim 1 MG/ML Ophthalmic Solution [Polytrim] Polytrim 39026-4.1 UNIT/ML Polytrim 60072-1.1 UNIT/ML 07/27/2020 12:00:00 AM EST active Polytrim 56045-6. 1 UNIT/ML eCW1 ([facility]) Polymyxin B 22061 UNT/ML / Trimethoprim 1 MG/ML Ophthalmic Solution [Polytrim] Polytrim 33908-6.1 UNIT/ML Polytrim 86604-0.1 UNIT/ML 07/27/2020 12:00:00 AM EST active Polytrim 60442-8. 1 UNIT/ML eCW1 ([facility]) Polymyxin B 56594 UNT/ML / Trimethoprim 1 MG/ML Ophthalmic Solution [Polytrim] Polytrim 91260-4.1 UNIT/ML Polytrim 24839-3.1 UNIT/ML 07/27/2020 12:00:00 AM EST active Polytrim 14791-7. 1 UNIT/ML eCW1 ([facility]) Polymyxin B 61724 UNT/ML / Trimethoprim 1 MG/ML Ophthalmic Solution [Polytrim] Polytrim 42371-1.1 UNIT/ML Polytrim 01119-0.1 UNIT/ML 07/27/2020 12:00:00 AM EST active Polytrim 39292-1. 1 UNIT/ML eCW1 ([facility]) 10 mg 07/26/2020 12:00:00 AM EST tablet 7 TAKE ONE TABLET BY MOUTH AT BEDTIME FOR ANTIPSYCHOTIC TAKE ONE TABLET BY MOUTH AT BEDTIME FOR ANTIPSYCHOTIC SOLD: 09/08/2020 [facility] 0.5 mg 07/26/2020 12:00:00 AM EST tablet 14 TAKE ONE TABLET BY MOUTH TWICE A DAY NEEDED FOR EPS TAKE ONE TABLET BY MOUTH TWICE A DAY NEEDED FOR EPS SOLD: 07/26/2020 [facility] olanzapine 10 MG Oral Tablet OLANZAPINE 07/26/2020 12:00:00 AM EST tab let 7 TAKE ONE TABLET BY MOUTH AT BEDTIME FOR ANTIPSYCHOTIC TAKE ONE TABLET BY MOUTH AT BEDTIME FOR ANTIPSYCHOTIC SOLD: 07/26/2020 [facility] 40 mg 07/26/2020 12:00:00 AM EST capsule 14 TAKE TWO CAPSULES BY MOUTH EVERY DAY FOR DEPRESSION TAKE TWO CAPSULES BY MOUTH EVERY DAY FOR DEPRESSION SO LD: 07/26/2020 [facility] Erythromycin 0.005 MG/MG Ophthalmic Ointment Erythromy oleksandr 5 MG/GM Erythromycin 5 MG/GM 07/09/2020 12:00:00 AM EST active Erythromycin 5 MG/GM eCW1 ([facility]) Erythromycin 0.005 MG/MG Ophthalmic Ointment Erythromy oleksandr 5 MG/GM Erythromycin 5 MG/GM 07/09/2020 12:00:00 AM EST active Erythromycin 5 MG/GM eCW1 ([facility]) Erythromycin 0.005 MG/MG Ophthalmic Ointment Erythromy oleksandr 5 MG/GM Erythromycin 5 MG/GM 07/09/2020 12:00:00 AM EST active Erythromycin 5 MG/GM eCW1 ([facility]) 5 mg/gram (0.5 %) 07/09/2020 12:00:00 AM EST ointment 3 APPLY A SMALL RIBBON TO LOWER EYELIDS THREE TIMES A DAY FOR 7 DAYS APPLY A SMALL RIBBON TO LOWER EYELIDS THREE TIMES A DAY FOR 7 DAYS SOLD: 07/09/2020 [facility] Erythromycin 0.005 MG/MG Ophthalmic Ointment Erythromy oleksandr 5 MG/GM Erythromycin 5 MG/GM 07/09/2020 12:00:00 AM EST active Erythromycin 5 MG/GM eCW1 ([facility]) Erythromycin 0.005 MG/MG Ophthalmic Ointment Erythromy oleksandr 5 MG/GM Erythromycin 5 MG/GM 07/09/2020 12:00:00 AM EST active Erythromycin 5 MG/GM eCW1 ([facility]) Erythromycin 0.005 MG/MG Ophthalmic Ointment Erythromy oleksandr 5 MG/GM Erythromycin 5 MG/GM 07/09/2020 12:00:00 AM EST active Erythromycin 5 MG/GM eCW1 ([facility]) Erythromycin 0.005 MG/MG Ophthalmic Ointment Erythromy oleksandr 5 MG/GM Erythromycin 5 MG/GM 07/09/2020 12:00:00 AM EST active Erythromycin 5 MG/GM eCW1 ([facility]) 1 mg 07/06/2020 12:00:00 AM EST capsule 7 TAKE ONE CAPSULE BY MOUTH AT BEDTIME FOR NIGHTMARES TAKE ONE CAPSULE BY MOUTH AT BEDTIME FOR NIGHTMARES SO LD: 07/20/2020 [facility] 10 mg 07/06/2020 12:00:00 AM EST tablet 14 TAKE TWO TABLETS BY MOUTH AT BEDTIME FOR HALLUCINATIONS TAKE TWO TABLETS BY MOUTH AT BEDTIME FOR HALLUCINATIONS SOLD: 07/06/2020 [facility] 10 mg 07/06/2020 12:00:00 AM EST tablet 14 TAKE TWO TABLETS BY MOUTH AT BEDTIME FOR HALLUCINATIONS TAKE TWO TABLETS BY MOUTH AT BEDTIME FOR HALLUCINATIONS SOLD: 07/13/2020 [facility] 10 mg 07/06/2020 12:00:00 AM EST tablet 14 TAKE TWO TABLETS BY MOUTH AT BEDTIME FOR HALLUCINATIONS TAKE TWO TABLETS BY MOUTH AT BEDTIME FOR HALLUCINATIONS SOLD: 07/20/2020 [facility] 1 mg 07/06/2020 12:00:00 AM EST capsule 7 TAKE ONE CAPSULE BY MOUTH AT BEDTIME FOR NIGHTMARES TAKE ONE CAPSULE BY MOUTH AT BEDTIME FOR NIGHTMARES SO LD: 09/08/2020 [facility] 20 mg 07/06/2020 12:00:00 AM EST capsule 21 TAKE THREE CAPSULES BY MOUTH EVERY DAY FOR DEPRESSION TAKE THREE CAPSULES BY MOUTH EVERY DAY FOR DEPRESSION SOLD: 09/08/2020 [facility] 1 mg 07/06/2020 12:00:00 AM EST capsule 7 TAKE ONE CAPSULE BY MOUTH AT BEDTIME FOR NIGHTMARES TAKE ONE CAPSULE BY MOUTH AT BEDTIME FOR NIGHTMARES SO LD: 08/04/2020 [facility] 20 mg 07/06/2020 12:00:00 AM EST capsule 21 TAKE THREE CAPSULES BY MOUTH EVERY DAY FOR DEPRESSION TAKE THREE CAPSULES BY MOUTH EVERY DAY FOR DEPRESSION SOLD: 07/20/2020 [facility] 10 mg 07/06/2020 12:00:00 AM EST tablet 14 TAKE TWO TABLETS BY MOUTH AT BEDTIME FOR HALLUCINATIONS TAKE TWO TABLETS BY MOUTH AT BEDTIME FOR HALLUCINATIONS SOLD: 09/08/2020 [facility] 1 mg 07/06/2020 12:00:00 AM EST capsule 7 TAKE ONE CAPSULE BY MOUTH AT BEDTIME FOR NIGHTMARES TAKE ONE CAPSULE BY MOUTH AT BEDTIME FOR NIGHTMARES SO LD: 07/13/2020 [facility] 20 mg 07/06/2020 12:00:00 AM EST capsule 21 TAKE THREE CAPSULES BY MOUTH EVERY DAY FOR DEPRESSION TAKE THREE CAPSULES BY MOUTH EVERY DAY FOR DEPRESSION SOLD: 07/13/2020 [facility] 1 mg 07/06/2020 12:00:00 AM EST capsule 7 TAKE ONE CAPSULE BY MOUTH AT BEDTIME FOR NIGHTMARES TAKE ONE CAPSULE BY MOUTH AT BEDTIME FOR NIGHTMARES SO LD: 07/06/2020 [facility] 20 mg 07/06/2020 12:00:00 AM EST capsule 21 TAKE THREE CAPSULES BY MOUTH EVERY DAY FOR DEPRESSION TAKE THREE CAPSULES BY MOUTH EVERY DAY FOR DEPRESSION SOLD: 07/06/2020 [facility] 10 mg 06/30/2020 12:00:00 AM EST tablet 90 TAKE 1 AND 1/2 TABLETS BY MOUTH TWICE A DAY MAXIMUM DAILY DOSE = 3 TAKE 1 AND 1/2 TABLETS BY MOUTH TWICE A DAY MAXIMUM DAILY DOSE = 3 SOLD: 06/30/2020 [facility] 10 mg 06/01/2020 12:00:00 AM EST tablet 90 TAKE ONE AND ONE-HALF TABLETS BY MOUTH TWICE A DAY MAXIMUM DAILY DOSE = 3 TABLETS TAKE ONE AND ONE-HALF TABLETS BY MOUTH TWICE A DAY MAXIMUM DAILY DOSE = 3 TABLETS SOLD: 06/02/2020 [facility] 600 mg(1,500mg) -400 unit 05/15/2020 12:00:00 AM EST tablet 60 TAKE ONE TABLET BY MOUTH TWICE A DAY WITH FOOD TAKE ONE TABLET BY MOUTH TWICE A DAY WIT H FOOD SOLD: 08/04/2020 [facility] 600 mg(1,500mg) -400 unit 05/15/2020 12:00:00 AM EST tablet 60 TAKE ONE TABLET BY MOUTH TWICE A DAY WITH FOOD TAKE ONE TABLET BY MOUTH TWICE A DAY WIT H FOOD SOLD: 09/19/2020 [facility] 600 mg(1,500mg) -400 unit 05/15/2020 12:00:00 AM EST tablet 60 TAKE ONE TABLET BY MOUTH TWICE A DAY WITH FOOD TAKE ONE TABLET BY MOUTH TWICE A DAY WIT H FOOD SOLD: 05/17/2020 [facility] 600 mg(1,500mg) -400 unit 05/15/2020 12:00:00 AM EST tablet 60 TAKE ONE TABLET BY MOUTH TWICE A DAY WITH FOOD TAKE ONE TABLET BY MOUTH TWICE A DAY WIT H FOOD SOLD: 02/25/2021 [facility] Sennosides-Docusate Sodium 8.6-50 MG UNK 05/07/2020 12:00:00 AM EST active Sennosides-Docusate Sodium 8.6-5 0 MG [facility] ([facility]) Sennosides-Docusate Sodium 8.6-50 MG UNK 05/07/2020 12:00:00 AM EST suspended Sennosides-Docusate Sodium 8.6-5 0 MG eCW1 ([facility]) Sennosides-Docusate Sodium 8.6-50 MG UNK 05/07/2020 12:00:00 AM EST active Sennosides-Docusate Sodium 8.6-5 0 MG eCW1 ([facility]) Sennosides-Docusate Sodium 8.6-50 MG UNK 05/07/2020 12:00:00 AM EST active Sennosides-Docusate Sodium 8.6-5 0 MG eCW1 ([facility]) Sennosides-Docusate Sodium 8.6-50 MG UNK 05/07/2020 12:00:00 AM EST active Sennosides-Docusate Sodium 8.6-5 0 MG eCW1 ([facility]) Sennosides-Docusate Sodium 8.6-50 MG UNK 05/07/2020 12:00:00 AM EST active Sennosides-Docusate Sodium 8.6-5 0 MG eCW1 ([facility]) Sennosides-Docusate Sodium 8.6-50 MG UNK 05/07/2020 12:00:00 AM EST suspended Sennosides-Docusate Sodium 8.6-5 0 MG eCW1 ([facility]) Sennosides-Docusate Sodium 8.6-50 MG UNK 05/07/2020 12:00:00 AM EST suspended Sennosides-Docusate Sodium 8.6-5 0 MG eCW1 ([facility]) Sennosides-Docusate Sodium 8.6-50 MG UNK 05/07/2020 12:00:00 AM EST active Sennosides-Docusate Sodium 8.6-5 0 MG eCW1 ([facility]) Sennosides-Docusate Sodium 8.6-50 MG UNK 05/07/2020 12:00:00 AM EST active Sennosides-Docusate Sodium 8.6-5 0 MG eCW1 ([facility]) Sennosides-Docusate Sodium 8.6-50 MG UNK 05/07/2020 12:00:00 AM EST active Sennosides-Docusate Sodium 8.6-5 0 MG eCW1 ([facility]) Sennosides-Docusate Sodium 8.6-50 MG UNK 05/07/2020 12:00:00 AM EST active Sennosides-Docusate Sodium 8.6-5 0 MG eCW1 ([facility]) Sennosides-Docusate Sodium 8.6-50 MG UNK 05/07/2020 12:00:00 AM EST active Sennosides-Docusate Sodium 8.6-5 0 MG eCW1 ([facility]) 10 mg 05/03/2020 12:00:00 AM EST [...] MOUTH EVERY DAY SOLD: 05/24/2020 [facility] 0.5 mg 04/27/2020 12:00:00 AM [...] MOUTH EVERY DAY SOLD: 04/28/2020 [facility] 10 mg 04/10/2020 12:00:00 AM EST tablet 30 TAKE ONE TABLET BY MOUTH EVERY DAY TAKE ONE TABLET BY MOUTH EVERY DAY SOLD: 04/13/2020 [facility] 10 mg 04/10/2020 12:00:00 AM EST tablet 30 TAKE ONE TABLET BY MOUTH EVERY DAY TAKE ONE TABLET BY MOUTH EVERY DAY SOLD: 05/10/2020 [facility] 10 mg 04/04/2020 12:00:00 AM [...] BY MOUTH TWO TIMES A DAY SOLD: 02/25/2021 [facility] 100 mg 04/03/2020 12:00:00 AM EST capsule 120 TAKE 2 CAPSULES BY MOUTH TWO TIMES A DAY TAKE 2 CAPSULES BY MOUTH TWO TIMES A DAY SOLD: 05/10/2020 [facility] 100 mg 04/03/2020 12:00:00 AM [...] BY MOUTH TWO TIMES A DAY SOLD: 08/04/2020 [facility] 100 mg 04/03/2020 12:00:00 AM EST capsule 120 TAKE 2 CAPSULES BY MOUTH TWO TIMES A DAY TAKE 2 CAPSULES BY MOUTH TWO TIMES A DAY SOLD: 09/19/2020 [facility] 10 mg 03/05/2020 12:00:00 AM [...] IN THE EVENING SOLD: 03/06/2020 [facility] atorvastatin 20 MG Oral Tablet ATORVASTATIN CALCIUM 02/23/2020 1 2:00:00 AM EDT tablet 90 TAKE ONE TABLET BY MOUTH EVERY D AY TAKE ONE TABLET BY MOUTH EVERY DAY SOLD: 05/24/2020 [facility] atorvastatin 20 MG Oral Tablet ATORVASTATIN CALCIUM 02/23/2020 1 2:00:00 AM EDT tablet 90 TAKE ONE TABLET BY MOUTH EVERY D AY TAKE ONE TABLET BY MOUTH EVERY DAY SOLD: 02/24/2020 [facility] 25 mcg 02/23/2020 12:00:00 AM EDT tablet 90 TAKE ONE TABLET BY MOUTH EVERY DAY TAKE ONE TABLET BY MOUTH EVERY DAY SOLD: 05/24/2020 [facility] 25 mcg 02/23/2020 12:00:00 AM EDT tablet 90 TAKE ONE TABLET BY MOUTH EVERY DAY TAKE ONE TABLET BY MOUTH EVERY DAY SOLD: 02/24/2020 [facility] montelukast 10 MG Oral Tablet MONTELUKAST SODIUM 02/23/2020 12:0 0:00 AM EDT tablet 90 TAKE ONE TABLET BY MOUTH AT BEDT DI TAKE ONE TABLET BY MOUTH AT BEDTIME SOLD: 02/24/2020 [facility] 300 mg 02/21/2020 12:00:00 [...] TABLETS SOLD: 02/01/2020 [facility] 10 mg 12/30/2019 12:00:00 AM EDT tablet 30 TAKE ONE TABLET BY MOUTH EVERY DAY TAKE ONE TABLET BY MOUTH EVERY DAY SOLD: 02/27/2020 [facility] 10 mg 12/30/2019 12:00:00 AM EDT tablet 30 TAKE ONE TABLET BY MOUTH EVERY DAY TAKE ONE TABLET BY MOUTH EVERY DAY SOLD: 01/31/2020 [facility] 600 mg(1,500mg) -400 unit 12/04/2019 12:00:00 AM EDT tablet 60 TAKE ONE TABLET BY MOUTH TWICE A DAY WITH FOOD TAKE ONE TABLET BY MOUTH TWICE A DAY WIT H FOOD SOLD: 03/06/2020 [facility] 600 mg(1,500mg) -400 unit [...] H FOOD SOLD: 04/23/2020 [facility] Ketoconazole 20 [...] 5 MINUTES SOLD: 01/31/2020 [facility] montelukast 10 MG Oral Tablet MONTELUKAST SODIUM 11/05/2019 12:0 0:00 AM EDT tablet 30 TAKE ONE TABLET BY MOUTH EVERY D AY AT BEDTIME TAKE ONE TABLET BY MOUTH EVERY DAY AT BEDTIME SOLD: 01/31/2020 [facility] 50 mcg/actuation 11/05/2019 12:00:00 AM EDT spray,suspension [...] EVERY DAY SOLD: 01/31/2020 [facility] 100 mg 10/06/2019 12:00:00 AM EDT capsule 120 TAKE TWO CAPSULES BY MOUTH TWICE A DAY TAKE TWO CAPSULES BY MOUTH TWICE A DAY SOLD: 01/31/2020 [facility] 100 mg 10/06/2019 12:00:00 AM EDT capsule 120 TAKE TWO CAPSULES BY MOUTH TWICE A DAY TAKE TWO CAPSULES BY MOUTH TWICE A DAY SOLD: 03/06/2020 [facility] Benzoyl Peroxide 0.05 MG/MG / Erythromyc in 0.03 MG/MG Topical Gel Benzoyl Peroxide-Erythromycin 5-3 % External Gel (Benzamycin) Benzoyl Peroxide- Erythromycin 5-3 % External Gel (Benzamycin) Topical aborted Apply topically Two Times Daily [facility] Insurance Providers Payer name Policy type / Coverage type Policy ID Covered alliance party ID Covered alliance party's relationship to frank Policy Frank Plan Information UHC UNITED MEDICARE DUAL G [id number] Self [id number] MEDICARE A [id number] Self [id number] A MEDICARE [id number] SP [id number] A [facility] G [id number] Self [id number] [facility] MEDICARE DUAL G [id number] Self [id number] A [facility] MEDICARE DUAL G [id number] Self [id number] MEDICARE [id number] SP [id number] A MEDICARE [id number] SP [id number] MEDICAID [id number] SP [id number] MEDICAID [id number] Self [id number] [facility] [id number] Self [id number] [facility] MEDICAID [id number] xxxxxxxxx [id number] [facility] MEDICARE [id number] Addis [id number] [facility] MEDICARE [id number] xxxxxxxxx [id number] [facility] MEDICAID [id number] Addis [id number] MH OPTUM [id number] Self [id number] [place] [id number] Self [id number] MEDICAID [id number] Addis [id number] MEDICAID [id number] xxxxxxxx [id number] MEDICAID [id number] Self [id number] MH OPTUM [id number] Self [id number] ANSI-Not a Secondary Insurance [id number] ANSI-Medicare Part B [id number] ANSI-Medicaid [id number] ANSI-Not a Secondary Insurance [id number] ANSI-Medicare Part B [id number] ANSI-Not a Secondary Insurance [id number] ANSI-Medicaid [id number] ANSI-Not a Secondary Insurance [id number] ANSI-Medicaid [id number] ANSI-Medicare Part B [id number] ANSI-Medicare Part B [id number] ANSI-Not a Secondary Insurance [id number] ANSI-Medicaid [id number] ANSI-Medicaid [id number] ANSI-Not a Secondary Insurance [id number] ANSI-Medicare Part B [id number] ANSI-Medicaid [id number] ANSI-Not a Secondary Insurance [id number] ANSI-Medicare Part B [id number] [facility] [id number] SP [id number] Medicaid [facility] Part B [id number] Self [id number] Medicare [place] Medicare Primary [id number] Self [id number] Medicaid [facility] Part B [id number] Self [id number] Medicare [place] Medicare Primary [id number] Self [id number] Medicaid [facility] Part B [id number] Self [id number] Medicare [place] Medicare Primary [id number] Self [id number] MEDICAID [id number] SP [id number] MEDICARE P [id number] S [id number] A IRA [facility] MEDICAID [id number] SP [id number] G [id number] [facility] [id number] SP [id number] [facility] [id number] SP [id number] [facility] [id number] SP [id number] MEDICARE [id number] SP [id number] [facility] [id number] SP [id number] [place] [id number] SP [id number] [facility] [id number] SP [id number] [facility] [id number] SP [id number] MEDICARE COMPLETE [id number] SP [id number] MEDICARE COMPLETE [id number] SP [id number] Medicaid S UNAVAILABLE S UNAVAILA BLE [facility] [employer] P [id number] S [id number] MEDICAID [id number] SP [id number] MEDICARE [id number] SP [id number] A MEDICARE [id number] SP [id number] [place](MCAID) O [id number] S [id number] MEDICAID M [id number] S [id number] Medicare P UNAVAILABLE S UNAVAILA BLE ANSI-Medicaid [id number] ANSI-Medicare Part B [id number] Problems, Conditions, and Diagnoses Code Display Name Description Problem Type Effective Dates Data Source(s) R41.82 Altered mental status, unspecified Altered menta l status, unspecified Diagnosis 12/07/2020 04:17:36 PM EDT [facility] R45.851 Suicidal ideations Suicidal ideations Diagnosis 04:17:36 PM EDT [facility] psych eval suicide attempt psych eval suicide attempt Diagnosis 12/04/2020 02:56:00 PM EDT [facility] E78.00 Pure hypercholesterolemia, unspecified P ure hypercholesterolemia, unspecified Diagnosis 11/20/2020 01:19:08 PM EDT [facility] K21.9 Gastro-esophageal reflux disease without esophagitis Gastro-esophageal reflux disease without esophagitis Diagnosis 11/20/2020 01:19:07 PM ED T [facility] E06.3 Autoimmune thyroiditis Autoimmune thyroiditis Diagnosi s 11/20/2020 01:19:05 PM EDT [facility] E03.8 Other specified hypothyroidism Other specified hypothy roidism Diagnosis 11/20/2020 01:19:05 PM EDT [facility] F79 Unspecified intellectual disabilities Unspecifie d intellectual disabilities Diagnosis 11/20/2020 01:19:04 PM EDT [facility] 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, not intractable, without status epilepticus Localization-related (focal) (partial) s ymptomatic epilepsy and epileptic syndromes with complex partial seizures, not intractable, without status epilepticus Diagnosis 11/20/2020 01:19:03 PM EDT [facility] Psychiatric Evaluation Psychiatric Evaluation Diagnosi s 11/18/2020 01:14:00 PM EDT [facility] E55.9 Vitamin D deficiency, unspecified Vitamin D defi ciency, unspecified Diagnosis 11/18/2020 01:14:00 PM EDT [facility] F29 Unspecified psychosis not du e to a substance or known physiological condition Unspecified psychosis not due to a subst ance or known physiological condition Diagnosis 11/18/2020 01:14:00 PM EDT [facility] E03.1 Congenital hypothyroidism without goiter Congenital hypothyroidism without goiter Diagnosis 10/31/2020 01:25:52 PM EDT [facility] F20.9 Schizophrenia, unspecified Schizophrenia, unspecified Diagnosis 10/31/2020 10:16:00 AM EDT [facility] auditory hallucination, suicidal ideatio n auditory hallucination, suicidal ideation Diagnosis 10/31/2020 10:16:00 AM EDT [facility] unspecified depressive disorder unspecified depressive disorder Diagnosis 10/19/2020 01:58:00 AM EDT [facility] T14.91XA Suicide attempt, initial encounter Suicide attem pt, initial encounter Diagnosis 09/18/2020 06:03:39 PM EDT [facility] F79 Unspecified intellectual disabilities Unspecifie d intellectual disabilities Diagnosis 09/18/2020 03:18:00 PM EDT [facility] R00.1 Bradycardia, unspecified Bradycardia, unspecified Diag nosis 09/18/2020 03:18:00 PM EDT [facility] R45.850 Homicidal ideations Homicidal ideations Diagnosis 0 09/18/2020 03:18:00 PM EDT [facility] Z11.52 Encounter for screening for COVID-19 Enc ounter for screening for COVID-19 Diagnosis 09/18/2020 03:18:00 PM EDT [facility] R44.3 Hallucinations, unspecified Hallucinations, unspecifie d Diagnosis 09/18/2020 03:18:00 PM T [facility] hearing homicidal voices hearing homicidal voices Diag nosis 09/18/2020 03:18:00 PM EDT [facility] 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, unspecified Developmental disorder of scholastic ski Diagnosis 09/11/2020 06:41:23 PM EDT [facility] F20.9 Schizophrenia, unspecified Schizophrenia, unspecified Diagnosis 09/11/2020 06:41:23 PM EDT [facility] R00.0 [id number] Sinus tachycardia Problem 02/28/2021 12:00:0 0 AM EDT eCW1 ([facility]) F20.9 Schizophrenia, unspecified Schizophrenia, unspecified Problem 02/19/2021 01:00:00 AM EDT [facility] ([facility] ) R32 [id number] Enuresis Problem 09/18/2020 12:00:00 AM ED T eCW1 ([facility]) F79 [id number] Intellectual disability Problem 09/11/2020 1 2:00:00 AM EDT eCW1 ([facility]) K59.09 [id number] Constipation, chronic Problem 05/07/2020 12: 00:00 AM EST eCW1 ([facility]) F20.0 [id number] Paranoid schizophrenia Problem 05/07/2020 12 :00:00 AM EST eCW1 ([facility]) 528.9 Other and unspecified diseases of the or al soft tissues Other and unspecified diseases of the oral soft tissues 02/21/2020 08: 33:50 AM EDT [facility] Surgeries/Procedures Procedure Description Date Indications Data Source(s) Imm: Flublok Quadrivalent 18 years & older 0.5mL IM Influenz a 02/28/2021 12:00:00 AM EDT eCW1 ([facility]) OFFICE OUTPATIENT VISIT 25 MINUTES 02/25/2021 12:00:00 AM EDT MED[facility] ([facility]) 25 HYDROXY INCLUDES FRACTIONS IF PERFORMED <td>VITAMIN D 25 HYDROXY, TOTAL</td><td>Routine</td><td>11/01/2020 5:33 AM EDT</td><td></td><td> </td> 11/01/2020 05:33:00 AM T [facility] LIPID PANEL <td>LIPID PANEL</td><td>Rout ine</td><td>11/01/2020 5:33 AM EDT</td><td></td><td> </td> 11/01/2020 05:33:00 AM T [facility] EKG 12-LEAD - CMAXX REPORT <td>EKG 12-LEAD - CMAXX REPORT</td><td></td><td>10/31/2020 1:09 PM EDT</td><td></td><td></td> 10/31/2020 01:09:26 PM T [facility] EKG 12-LEAD <td>EKG 12-LEAD</td><td>Rout ine</td><td>10/31/2020 1:09 PM EDT</td><td></td><td></td> 10/31/2020 01:09:26 PM EDT [facility] EKG 12-LEAD - CMAXX REPORT <td>EKG 12-LEAD - CMAXX REPORT</td><td></td><td>10/31/2020 1:08 PM EDT</td><td></td><td></td> 10/31/2020 01:08:09 PM [facility] EKG 12-LEAD - CMAXX REPORT <td>EKG 12-LEAD - CMAXX REPORT</td><td></td><td>10/31/2020 1:08 PM EDT</td><td></td><td></td> 10/31/2020 01:08:09 PM [facility] EKG 12-LEAD <td>EKG 12-LEAD</td><td>Rout ine</td><td>10/31/2020 1:08 PM EDT</td><td></td><td> </td> 10/31/2020 01:08:09 PM [facility] EKG 12-LEAD - CMAXX REPORT <td>EKG 12-LEAD - CMAXX REPORT</td><td></td><td>10/31/2020 1:07 PM EDT</td><td></td><td></td> 10/31/2020 01:07:40 PM [facility] EKG 12-LEAD - CMAXX REPORT <td>EKG 12-LEAD - CMAXX REPORT</td><td></td><td>10/31/2020 1:07 PM EDT</td><td></td><td></td> 10/31/2020 01:07:40 PM [facility] EKG 12-LEAD <td>EKG 12-LEAD</td><td>Rout ine</td><td>10/31/2020 1:07 PM EDT</td><td></td><td></td> [facility] <td>EKG 12-LEAD</td><td>Rout ine</td><td>10/31/2020 1:07 PM EDT</td><td></td><td> </td> 10/31/2020 01:07:40 PM EDT [facility] URNLS DIP STICK/TABLET REAGENT AUTO MICROSCOPY <td>URI NALYSIS WITH MICROSCOPIC</td><td>Routine</td><td>10/31/2020 12:47 PM EDT</td><td></td><td> </td> 10/31/2020 12:47:00 PM EDT [facility] OFFICE OUTPATIENT VISIT 15 MINUTES 10/29/2020 12:00:00 AM EDT [facility] ([facility] Immunization: Flublok Quadrivalent (18 years & older) 0.5mL IM (Influenza) 05/07/2020 12:00:00 AM EST eCW1 ([facility]) MRI Brain W/O Contrast, Followed By Contrast 0 12:00:00 AM EDT [facility] ([facility] MRI Brain W/O Contrast, Followed By Contrast 0 12:00:00 AM EDT [facility] ([facility] Results ID Date Data Source [id number] 2021 09:52:22 AM EDT [facility] Name Value Range Interpretation Code Description Data Catrachita rce(s) Supporting Document(s) Discharge Summary [facility] LGEWMz7zXrDCAnPi18/VDVzjFUFac9QnCYuaWDw8ZTreEHWfY7MdFYU2iY5fTAL6XSkMJyLaRjQnFMQe lbm [file] KBAqVBodKYClCdCsJPSoUnC4BjVzBY5CDg7KIkL9TEM7tNUmUn4GFMfjTTcYZyYeKC4BENw= ID Date Data Source [id number] 02/19/2021 07:23:42 PM EDT [facility] Name Value Range Interpretation Code Description Data Catrachita rce(s) Supporting Document(s) Thyrotropin [Units/volume] in Serum or Plasma 3.970 u[IU]/mL 0.270-4. 200 [facility] ID Date Data Source [id number] 2021 03:06:58 PM EDT [facility] Value Range Interpretation Code Description Data Catrachita rce(s) Supporting Document(s) Zonisamide [Mass/volume] in Serum or Plasma 10.0-40.0 L [facility] (NOTE) Det ection Limit = 2.0Performed At: [facility] [id number] Sanjai MD Ph:[id number] ID Date Data Source [id number] 01/21/2021 07:51:51 AM EDT [facility] Value Range Interpretation Code Description Data Catrachita rce(s) Supporting Document(s) EKG [facility] JBHORn6oHgMJRgNbw9DvOlMrYNEtGL4kkco0D6N2lIXvL0RccDNnn3tfB0TnT2OiICLiOMTEKT2LwKNi jb2 [file] iCv466+RZrod6b9/0bvu/6vNnzxXv58CDj1168/u03 H775pw/vQ7224kpa3w2/9/XX33x6+/DbX71/w3Lo3v5Kn13/+Wt831ud/+O7D59/+nkqATi0GjHI34u3 T++/ePvnT5//+H11Qgz218g503ujvw1Ks1+/+9VLCj/13k1hg3t2j/z8y/e//fy60VY77wZPzO/time study technician/+n z1weGnx7M/jy/auN3/z6N+8+zXl2V201+vJ+4O2bf3 fLpM3x5jUr/+XHxexjZ/9/mvD1N//yEuT7j++//vSS1d+48Jmy428p2JyMsIXge0Ab24/78Gr/3Um++v j2j+8+vp7+idvvsXXf/xUnif8I46/ct5Ml/N++EyxDc5sKn3Vtv/jFL/2pR5urjci58//DX/nwmlKwXC /4+65Rn6cj4jK918t/A3Bbiw+9azK2dbSmCSUPoR44 RFp3EM1Qqw3qD60GuDsk9ljmvC/jW4hMps12+O7fv/wEW093a1f//r8/q7s630BGG0+9/dcvX5/4n3/Q 6sdQex9/85/+/Q9/+f711C/sg222bi40+6e3z//j2z/9jz9++wc+j4E1s2D+8je/BroP/hcbhTDl8Z2w 1H/33Z/+8ql0g0k7a+9+XFtPIYfXI8Lwn78/649LP9 hLID8u/YC/+fD2hz/97bu//D/f/vEnij+y/ZIof2PA8Ao/Eh6bdW8+vv3b/3rV/Q9//tOPi9/H7/2o+C xnsc738u/903sl0vmcS3T7Kz+h+/pB6buC+3DM6Cc/radZZFR0f6N1n77mw9Q22bkgrg6g8jk/97u//v 0csq4bYN//5vNPP9+BBf/tP73+nf/7L//tP//o7vMd /vG777/94w++8PoB/vm3/+v33/711dl+UHNO6eP//QnRs9ktnb201//+2UeIH/785+8/695+dMNp76/+ /PvPhPDeVhQJGPYs+d3v/+NPf/d2m42mdah5jAtuh1siq4g9t613rod/++ybv/3Hd3/5+1zqOYp6+Jtf //x4gM87cW/cRsy7e56xE9D70ypE+s23/+S6B2l421 [file] YbfoNf2jjEB7OFAxWwnYQs8Qo9BgikF6fyGyJgV2XmSoTfIjHR0S ID Date Data Source [id number] 01/20/2021 08:40:03 AM EDT [facility] Name Value Range Interpretation Code Description Data Catrachita rce(s) Supporting Document(s) Consultation [facility] QQXBUu5hDjLUMpSp12/JCGlrZEPas6FxGFzeGDp6KZedGVCwN9PbMSZ5wT0bLMX7XCxHMjXgDbKrSBQ8 lbm [file] ICAgICAgICAgICAgICAgICAgICAgICAgICAgICAgIC AgICAgICAgICAgICAgICAgICAgICAgICAgICAgICAgICAgICAgICAgICAgICAgICAgICAgICAgICAgDQ ogICAgICAgICAgICAgICAgICAgICAgICAgICAgICAgICAgICAgICAgICAgICAgICAgICAgICAgICAgIC AgICAgICAgICAgICAgICAgICAgICAgICAgICAgICAg ICAgICAgICAgDQogICAgICAgICAgICAgICAgICAgICAgICAgICAgICAgICAgICAgICAgICAgICAgICAg ICAgICAgICAgICAgICAgICAgICAgICAgICAgICAgICAgICAgICAgICAgICAgICAgICAgDQogICAgICAg ICAgICAgICAgICAgICAgICAgICAgICAgICAgICAgIC AgICAgICAgICAgICAgICAgICAgICAgICAgICAgICAgICAgICAgICAgICAgICAgICAgICAgICAgICAgIC AgDQogICAgICAgICAgICAgICAgICAgICAgICAgICAgICAgICAgICAgICAgICAgICAgICAgICAgICAgIC AgICAgICAgICAgICAgICAgICAgICAgICAgICAgICAg ICAgICAgICAgICAgDQogICAgICAgICAgICAgICAgICAgICAgICAgICAgICAgICAgICAgICAgICAgICAg ICAgICAgICAgICAgICAgICAgICAgICAgICAgICAgICAgICAgICAgICAgICAgICAgICAgICAgDQogICAg ICAgICAgICAgICAgICAgICAgICAgICAgICAgICAgIC AgICAgICAgICAgICAgICAgICAgICAgICAgICAgICAgICAgICAgICAgICAgICAgICAgICAgICAgICAgIC AgICAgDQogICAgICAgICAgICAgICAgICAgICAgICAgICAgICAgICAgICAgICAgICAgICAgICAgICAgIC AgICAgICAgICAgICAgICAgICAgICAgICAgICAgICAg ICAgICAgICAgICAgICAgDQogICAgICAgICAgICAgICAgICAgICAgICAgICAgICAgICAgICAgICAgICAg ICAgICAgICAgICAgICAgICAgICAgICAgICAgICAgICAgICAgICAgICAgICAgICAgICAgICAgICAgDQog ICAgICAgICAgICAgICAgICAgICAgICAgICAgICAgIC AgICAgICAgICAgICAgICAgICAgICAgICAgICAgICAgICAgICAgICAgICAgICAgICAgICAgICAgICAgIC CfKZTgHRYsSRo4W1nyOMWsBOVrMS0uHZj8Rs3+KAwERoFyVMV6rjUmkW9TMO4xd5ZxALyiYAJzr7ZwTT i7GS1EZLMcDAwcRI4DCBfygw5JCFAfDWBxbZMPp8kx QfAoLBQ0VIEqRynlAJ8UQZPnL3vchzKoHYNyXARWLCkfAOZPJFfiJYOQTHLvDLPsLxHtEuKuGCTmGD6J CAYeW241zwBuFO7NRb1NLcYwLV4dsx8RWaJpEHHsZfgMFit8WJsgSN5BfJUebPEhHEIbANCBSpNyG8tl t4ItVyAiJWIKNEcjLO0Mc1SqvJIvXCc+Bd9BPK9uk5 MeWOybYHFcFB1hna5OJBcYWtVmY2BjrQknBIPqlmR6kHXfGJK5SYbiTyHxHHgkTvSLxZTtsOzpuJnwGU KrQIQjJY9oWZ3pNOFcNRQ9GuQgPRMZOU4QFYCfTOWuzJYfPGIzWINPVI2VOHpnTVD4YWUctmYtvWJxNY wrYZ8AVNWxpsJuLbZgGMCIFRr+Ua4YID5dq3CcHJxb DpVeXD8aba5COSlGHhIiO2O7tLNkK6Q8DZteEz7GKXCfJBAiMmeqXXOXIGtdOZ5PRQ3ytkG9DT3VzOHn WIMrARHykAZkWGl9V46kgGTdYVfiOE9ZCAL+Sharon+Ob7ZPHHtKFDhEPBqKbCaODVWQeCaS4EbK1YTa3Vn W7SpFP71sWckurVsXKdxKT4SVA5iDTLkEBJQHG6PyO OkmQ7shzTnOQWpZFRBIuChS10qiYWeOPCrOEH9KTHqFr9UAFWhP5ZnscPvpJfmkmZsBEQeXOQXEC5XNT wsycQqpNZvwZjmMX79iQbwEE9EGm6IMoBvLX3rxx8MlPHxVv5RCDSzUw6VVFAeKEElVVNdAOV1XTTrAn SbZYieKKVsHKMhOTD4BRQwJFOiKV9EEvXcTWBmKXU9 LifyZZGbLJKusj4RZPKnFYQ6UCquMtBcHEIoITDmFMjuWZNvRIQuBLB2SPKxJIWrGM8LXbQzZDOjXTN1 MvVrKSXfNVTotj6XNUGoQAMxUaE5ZYQvNBCeHDZyRWjwOKXtFQT6SZN6AAMqZIJoAQ3BOaPfHZVfIRX8 JRNqWPKhFNRkis1GYUXwARJqDHQgVATqODJtFWRiVP ipGROaOWQnAsH5RLOoXUQhZR9LDmNuQEEsCCD1IfroITVoPMBsfs2OKYTaTSLhXeK3GYRhAYQwNWXsAP toSQLdAFP8IZU6TIElPWJaPL4QZsZnZRLtKQLcCVJjYVQuHKDkdi1YAAPaABExFxLyJmVpPPWdPGQxQU qmRXXyRTX8DCMlWREnUFUvLM0TDiMaDYIdWKS5EUWs ULJwZKOpsa6FBXSsBCItUhN3FdCrNKCaIITuROriIBSfQUS8GzV5PBIaDGRuMO5ZOmDlGRBrLNn0LrMq ROTaDKHklj6SBIIvVIP1ZVeoToNaMLGnWJCjJLacHYRhRWAbKULyYKRbTNLpAQ5RHmYdJDHiTRU1BKgp PRQgXEHdfn1OQGMgUMS9WrE8IXOeFRSkXYEcGHgiGD KrVQQdFvZ3PQIpDCUdAU8RLqRiHWSyKGB0RPmkHHKsURLjvc7APPAxPFO8Reh5BrHgQFTsNSSfIDkuNE WsGQGoBVA1RLYuUXIuAF2UTdUtDQFsLMKpDmDqHWSdEECasr8JLRRnNST8PZmbGoJjCRBlTHMiVRpxWQ MnNSV6GQW5JWPwBNJuGL5PRdStAXEuAYZnKSLdOTKs MSHybm0HoYRvgAibxy4LVAsHAy3IzItkKVJuJAenCy4kpOUtVqKdDRLGOx4HfbRvAVHvCCJWQNkxKSCq ADOfCgQ4UWYgCQBvOfIjRrAqJLU9WPSzHeG4IEJjKZM1OzC5ITYnKRK9RSQ6AbFnYlZ8F6LpCyx2ZpDp IFMaM4DpHAJ+MW2uOAf+Bk5Vs9ZmmhL4kwFoKDe8IvM6DW4HTQTHX3GXUm== ID Date Data Source [id number] 01/13/2021 09:19:06 AM EDT [facility] Name Value Range Interpretation Code Description Data Catrachita rce(s) Supporting Document(s) [facility] BOKEWt3mTcJMZkJqn7MhGvTeAOFiFH4ijnu9C2T0pFUlV5KkfQCom3lhO9EwC5LvIZKiRCSNQM6NaWBz jb2 [file] fn382ifmyA3/v31aj9vS9wj8mC+rr+75i4q86Nbj/6aNd/[employer] W[employer] Operator+Ps7v+zwjXa+fD71+JqtOT37eVI+3vQ xD+yR3VwwMH72w0LsoHzhS4bLQ/jV8BanLR5bpk1oy Dc/3fYO+Mb1Hqo8Z97umXA+g/IF0w/pEvxdmjrTny6RFbM+tax/c84305S9nlu4YTCenfo5H4A9/Q1+H uu1o0uyAT0Wae6Qay6Bx+W6A34iQof3kLfV10D++b/nHbvT2EpwxG1qwC+s5OlT8rUCDlnJ7W+8byoE/ G9w8iyL7ylE/42o6s2Zv/L4T+u3G9Qd42Hph95A+S2 /56+gr+krAh4y42pD0jlg2nkT9asgqn2tbjsFT+aI60Mvo6Cdr058xqdlic2G85kM58Hqb0qX43Ccg/X 0y8foaEGFO46kcpidf6/bipS472j27g1xC9kC5qlDG4V4endAg2zemyyOFrdJqjR42aal4/y5tqnNUbg /v3/75nBt/sa2gT08mgFu+v7+Lttt+NfhVPm+8f/mV yq37Aw1zw4Xrolx8b/tnldt+Tn2py8TwVfnSwxon8+piZbfubf5aviqlgafh/0aks2u5vc+M126Mrg+s wa/i/tVLHM8xffh/+FU+o7sldQ34Imlr8Bvmf43/HklI92yUuu5/j8Sba48N85EmZldlaebmfH++5Xfo 34Ryx39i+ga/ep6R/hU91dIij86zakLqMT/25+z1V9 +4Nekc/yZ0HC9F5pnfIj087am3IRt/uv6f/BoVYusFmM0MkmUa6QRoth3kU219CqffUdicNN50N6ghKd 36wIWC0Fn0yppc/RZzzfU7ekzm+5lOynn+6HtmeX/fnOcmLArkJni6bd8o7a+4z5NEcn+/+ywuppx0Bg s99M5fI+iw2TaxQIe+uy5I5mh//FzkjF9gN6+O9w+/ ck7I46Q7773sKq5RmZso3S8rThx/a/AwbEVvq7C03tFzTvggG25UueY7+7b1Cn9o9EsgT9Y/C75u4Bl5 zsL7G++j/Qa/kny+/kb0DbPidh65OUBKsOFG9mZC7zm6DoxrsK+i8kpriC4sRcuzN76S+w1+9Tzf/vDw z7pYg648r8Zo0+MTk6SnKATQ3pi2ztm/PC/l6Ce0s2 /lsyMd+q09a5Jx5kj23GV+wa/yG/j5vvR3V/LadzQhz8SkUd+KbwO/0oXxCPzqnMx+h9HR59zymlOcEt 8Ffw5+WP8hML8k5Cqk10Eek+HPG/6urr6Hk7Z8LPG6Lum/23oei3fG+z4j/fJn3Zc/932xZm7+lee0Z8 Pz5QMb/YS1gORbKdmVZ1/arx7O27ZWX4roY1016y++ zzPSb3/Vg1/rvr3bjzbAOm7KB5mWsl+z3Xcc7/vbH/ueKwez0J9fpN171QeNy08dwk9fTxf7821SbP/+ +Vraju67r+L4oaHD3ufQXhPs2wRyH/Dv18yotmlv/ZlTIw5ze+BXYf/gV/E5AA77siQA4eg5Njdahmtj 18ufe/SidHuXEu875eUGbWI0roQq8QeYo5k/4v2F9I XyN+v06Ami1o/1kdd0H4UX2i45+47j320cc++3/fZ+4xu93/rF05J5R/vsr77E8r69+2G2mhhinM+ko/ 7yhxFJ6GG1dpA+1ced//Cb3bn25EH9ool+6dL9vn4S0immI0Az8Mn+3xG/4cvmcdMylgNi4nts56Ohc7 AX8auO+FVH/Qluycs5az1Gf0yjkQ8FceP5EnkiA65k u/PiftA612m4dZLA8SP0fcPq+gh68Vq9L1/vLkiHPyN+1TN+Fe/Dnx2/r8OfEb/qDn0Rv+ruKH/ie+a1 m+J3npzcS+Xc+EaP+FW8P+HPE/pG/Rvt9vyD1AgQgqd6Tthir4Q2fw82zNzZh4A32vv8uy3LlN+J9jvh zxO/78LvuzD+LvTPEb/KZ4y/C+Py6SjdEn8SrB+8j/ 45+FW+78sobP3+aqF/Gf3K7kqLm9JQcjKQ4Lc2BrNj8CgXx5ojI/sf0n3hvbtsd8B7pyOwqnU7zhY39x BnxK/6Rn8V/Cp8Zl8+2fddL+t2elI7chAT3S75vcA/Ou+V0LxMG2CjdurZtQ43bdHcgt/tjkcj+FXWZS etcgcTg5E11u0me2NxhiwTfgz5/frlZIWisVIcx2R3 8PFDwiP62Zm78XWE4nefs+ZFoBuMzmR617JNne2QprPQrlwMXP5a44reMzgyNtidw3XpIqCRSy/Ph1/N GUd/z/xoxfOZH+PJ5sqisHLbXc8nzyB5S+/6wgh+pipCe3aiG9uUtlChCB35gSeU28B1Ng/4Rgtdvvxq CpdKF3xqF+tk4PmNnTdulvUSpkbau8q+Du2nK7vvpF aNUOh6jeei8fBvtKo1/fj+L7/BLZu0lltF7R/QsjKe45RGvfmhsUqYCVf5vue7LeoC98Hff1aoWXxzy2 lne/h1PF5103HMfA8I9Vrsr476Ox/Q91kKN15++cIQ7yRaNC88qF58hs43f6Co7KH5ClbyrE+PO/8d48 5/R/HyDG0547ZS3w+APw+835CUy8QH+k1V83K0rl64 s9qmUUdnQ35cl/477M5/c3Jgh57Dte5lqonpS+zU25Ax1JpEDm8/ynZkE+nT7vNC+hC2kjyY5GuTJhBX A/GrEfwq/D/2DL2vv2g7qqh0M/ZpXM07AFu0jGf11+nQN+NX8c7E+/Ne5dDl9Tw5BZ66XA/0iF/ledvo r+A5rrJH5alb+FWewlWk3/jVOR/8Pg+k3/WFgfjVQP lwNZ26Bwxuxc07vg+eGI8m/TkNaik4tdTxS/a6jE6Inn+leB+/7+aXf4u80NeybisYmxecfFz+NNadD4 7leH/i/krnw5rm65ASE2OlqsBFmN92XYopTdStH093RC/+MPjVymd7+9LgV8/p6Ml53t2e3v7/MYJfPc 94H/3i0KiHhs8+nZCB7LkH83Z8Am/P140Uh1+6Bb96 [file] TkldpTLplCyxPWZQFeT2TyNNWUORT2W= ID Date Data Source [id number] 01/12/2021 04:58:09 AM EDT [facility] Name Value Range Interpretation Code Description Data Catrachita e(s) Supporting Document(s) Color of Urine [facility] Clarity of Urine [facility] Specific gravity of Urine by Refractometry automated 1.016 1.003 -1.030 [facility] pH of Urine by Automated test strip 8.0 5.0-8.0 [facility] Protein [Mass/volume] in Urine by Automated test strip Neg [facility] Glucose [Mass/volume] in Urine by Automated test strip Neg [facility] Ketones [Mass/volume] in Urine by Automated test strip Neg [facility] Bilirubin.total [Presence] in Urine by Automated test strip Negative [facility] Hemoglobin [Presence] in Urine by Automated test strip Neg [facility] Leukocyte esterase [Presence] in Urine by Automated test strip Negative [facility] Nitrite [Presence] in Urine by Automated test strip Negati ve [facility] Leukocytes [#/area] in Urine sediment by Automated count 10 /HPF 0 -5 [facility] Erythrocytes [#/area] in Urine sediment by Automated count 1 /HPF 0-3 [facility] Bacteria [#/area] in Urine sediment by Automated count Non e [facility] Epithelial cells.squamous [#/area] in Urine sediment by Auto mated count 5 /HPF None [facility] Crystals.amorphous [#/area] in Urine sediment by Microscopy high power field None [facility] ID Date Data Source [id number] 12/30/2020 09:14:05 PM EDT [facility] Name Value Range Interpretation Code Description Data Catrachita rce(s) Supporting Document(s) [facility] VCKFZy6dNqPOErIkr3SkZfMiBVRrOH3grce8Q3K2lMZyZ7KuzGByt0pvX3CdY4IiMTReJSEVJQ4YrDCp jb2 [file] [facility]/HSV1JAWV6fnKgypPTUoi3TG8UpYxuCo3PU+y9FgjHhhN8uwWYIGs15PIiOppJnpKxP68yhHWTa+5 [file] 5/Reyes/1RJ4m0s/4IG7mk2oBR5dBBmZ9y3VJQyoK3QBcQ/OnFrm4S/JyT7LqbqcwHhZIscIsNKAbTwcDZ /Puu5GPZg3V+LKs2J/LXoc6b6VyEL6gJrafeQlPfsC 68bJeOLkvvNsGAuzwR/Mu+8dpnzUM1T5Jkdo8Qt7wg5E7VW+93K62fqtQ/P9+7fh9+f3Hs+f3/s37f09 4/f63v/ArN2uMnQ/jiueP7+2dupLZ96yt09y48azedc0/An3g3q1o+/t+0fe/5zxyUL+fPj3jN+PvFXv L/x+9X8Gxrg7aobjJ2fjqOvlhDah/RGjHu85xH/x/p HXTv/bwO+De5cBNcysAxX1XRbzIJ6xY5l/1V3pH40z50/p3MD7FVv5ck/yKpmvl/dd+hFGoyMo3KhvX3 7H9+7O6pxXivrP581ev8/o4M1b3ND1+9Nnn+tlZBeb9uJTttnxnuW6waJjT+XVM/B9B+QdkHfg+w59X/ 6C6lyQpc+rI9Lfo0sWS6R2EA/D8fvE+/PZ/4bYm6Rn DhsdKF553Y2WNArC/dq/YfxaffVYe/3sbtm2qVH+P195pkZ458c8naLcyr/kpv/1Qc+MexTkrqc5NR3j /Y7xaxi/huA1kPnvsqx45/Ll0yj9krebH2u5Ejr9g/q9v/5/RSuL3Ab+Z8xfZd87882d9t3Fr+azE18F z/h9P/v0/jajvp6byp/P+zto9uybv543K2n1py85y/ bX/zme/Te802wAz45N205hxp/aKAdyqozq0845ttCc/POEPS/KJ1e461womSfm+N3G74a235/Vn/0sya a0I63169+R9sz55BN69//G103KstwgteU5pTOAB/a8y+sNR81vnG/A+QyX5g8dX9YDr94Db+D3kmm4Hy 6rprnP7++735dkD36o+D7xqo08k9lwnUs5ftMSF58a ikt7c7W6leS0e2+AUD0r49/h4nXMw1i9wsHneR4qrIxUsgp+aq9Ysu63I8zu7ePgd3y/rZTxs/b8tzLG v7/q51l7bp43dxKrwj2/+Oo+1/Leed/3pIq/Z/z+7NhY212Eppd3pmG5g/hV3w6+uj8znAV/d9T/vm+r E/Uv/L7w+0Y/88y6HWia3d3Tfj9n94VptEpA10qhTJ fhq3i/v+8ofHWfv+GrwzvmO4l+mtjbCD6Zmqq+n/c7lf0zV/zaQ3v+qglfSa7+6uNA10pOdI2APB2+Cl 1F1xtfA/cavfe5Ulnuq06JE69kl6/+/FXrsOc+7brSHMg4PKgVuNUnoL+Vl1AeLgk8saCKiVR7+X0eGz r9BphafD2S76kY+Nxab08f3/mrNgy/G+px1O/oz3x2 Wanmn6Ku/qVqZ9SDom++6xatt330dj0IAnu1IP5RP6n+nym3AuKn0RU4J9a+CF/S38t1AI7P3feibhC3 iC9U7YUNK+Gr+/q83F8Hachpm1fub5vXdh7uh75dD4+Ffg6+mr3q+fN7/O3wI+25scfNmFq7Mev9BOnp OfLe58/w0l3iauj8+Vx4wu82Q77L8aCFFpaq+sj7ma D+rbTtv+1ZSut9V2yo+uCrv+J22VHm9mv/+0/gxw3ubE51B9dQ9toiI0BL9vBkzSML7I/0zwcG2ljgdF E7/8d9R6C2W2Tt2P///O7fTO2/ttTu/GCg4czviex6wmwzVfPoiqY/YHR2S914z0SnskX5+ZvO6V5vz9 Qt46LvfYZ8+dnf5+Ovtt4//iqez/pWelh6Qlq0Sx+u pG/4K+HxJXd10m/XWy+0Bf+8MP+fbxoD75jy4pzJWpmaSpurN+CrtjH/boZXPc1KoVNUlc3xL+p5eLLt b690ZmqglbLk2Day776nvmDr9o7fi6T/C79j/M7IG23nvZo3v7x4bj35/tdbh4Vn9+syOkl4WTkJ66wb f+0JV9N1nJ/93xp4hf7Nxol629/+9/Lwxsm1/j6/9W BX/Crq2aj/qKq07hd3HdsH8/NXPfCVnh++9eDAH1W2+05/euePF1pgt81F9uyu3+q0vx1INnFgLj/e6P FXa68brcQgizNT1/t12XKWgzjUk6GREBQ+w1cnm/cO3XAlk+sK1gC2pq/e7UJQ2F7rioMo60pF2vxqip iqC1+NyJkueH6/7rzk72DED5+78WatXc9+2fyZ86Lm q/HNm/4+D/w+IM1oM6Lah9t3kM/sfC72whyCha35J+8vXteFr+J5f/3wyZW+z6N8/XBX/Dcs65khm12O Pt3BV/t07mpsW86Dq7bOzlWa+4hqZ8uhL290ysyO05yj12ozT+S1qu4Aiw/4/jU9dt47YngYt+uKX6ld q3j/ogk26ehoXp5xMmgH91fZ+60F71zEA8u6+LnbW+ 93xa+i/ey4P26cgL/j/f1+V09i2tn475+77F9Lr1mrF/bDz9l1Sogc6fz4n6Z/u6E/sGeHvBG/imf8Dn ad07gxf/2tj/p866M+Ia/iV3p/vvVRV/wq3mmv/gl5Fb+WAlvF9h/eOEnO7/anP852o8+j2cl3Yrat0r ya2432SpCf5g1+9lDok1wD5/D53xZ9uG2Te2pvBT5q LH1DeodtVh/F7+ONU+HcwZ3jG/ki4av7/ORd+W6Se2Lj/LPwVTy/9WBfmI+Er/J8ctsy4X8a/nm//ZS+ 5U5Fl1tSuQ/qm0nysvud4itzwwv3wDlgx/O1lxTgaaecU/W8+ZuU786Fil64vItfM49w+N7u4srvGC52 D7w/ilT3bV3F4hqnufph5f5d4i/wyiPhMtnqMJK1d6 AybymJR4I+eOzA/uCI/UG90/B7e+2Zxyg6fVpR1e/+amh/MNoy/P6+7xC+pwufX86aKT/pSBgXi0Z+X/ h9f+h0Zd45CXjzl6sA9hG+GohfDeGr+4zfO35/9cKwqTHu7CgwfBnyIh92fr6Ddm1wel99j/D+Rv8ffh 65fDsX0qvR2D93oh/5qd5A4kJ7HWVsLpRTp9Wv2ZuR +HMCxrnh4sxsen+of+F32HPf+R6qC68EfVPvTB23+6FD+8SjxqYs6dKyvlpwGQN3FFbFzTAPbhuf6++8 Puarqtl14wQvezydCy+djOLAgSeh+Pv7/vr/NJtdihwl8cFOl+Be7BBdGHewmAbk4Zk4/uajYW8+GsJX 99leHxzvv/3fYfi+8yuhCDqS6uy8PZY897WwC7U23m PE3okbbHRyIQqtvcAAlk8/+1QMHua0WYdQ9TCLBWe88R7O3V+O2B/U+906NK0Bs9DWsCyd/mBjH42H/u IbQ/iG88h3HnwJ/wt9qbcppo/iueThBiyQ121/Xr29jjN80Z+Fr+3f2yg4hQ1/z2NAioica97Ty8/9C/ IufN/02tcwArpeCpjxLXWHLyhVW1ngfbBP1FglfxDk 93i29/zisSPiV+oD/JXwlWz+0PiybQelaQ0ENOtm2Sl7jEgfmK3xQdsI3/eDr/6+mRJ2P/HJupVh+4lP Nr3/wVd/30wJuvUbhzypvxGHPJm/88/uhdxucgdl0K8Nmz561LEJP9/G58AfnEvae50B6191MbqUMsgu vJnFn/zu7KeIa08nX0/taOvIG+uEk95Hs/vFY0+ub6 x/NscwOxl5kEBc5a7VWrfAnmu/Vt5+kqM5fbIEy78PfhA3Mg0tS3FwaaG+//dSV60XCy/f1vowtrVxiR 9ZWah/4/eHn62++cjqwxsGfGX1+XzvH53XrpISy/6gYX/S5twDSYEh41p92pab3qb2x+N3x+/za/8njz ydsbrY29gt3S5nNhcMO7cjar+b8FX8/uJ1J3/3ttva s7sfy6u+5mhTn3z74N7+6Mnc/X9o4z12Veos29yWY7al8M7B0Q48k/D+RruQt7/89WBdc4txc4//5Op+ nxt+b/a6r086/hvLZ7Qgv6gOhzKekWNuM14o7+vYF3vuTVdl/U5Cl2ucK2404cLzVtgdiC06/dKZ1tjW 85b1cODRm1p7+dfGWy/KQOzT8vbT+Vkc28hTyzzlpX sx7jaOot211nF+ul584z/ypPT4pgxe79iaTU/uZoJ6OX4sv98pwhsv/B0YOzQM4Phar/LMIXq54fkva/ DCa1cdSJLb2EcMCVy5LTakqZbqgU64/HNT+xoTP09t/F7xe33+3BWf/Gbbfp/7F6+hTHpc71Bh30njOy jqPqMeR/5O7h7qvUm0My5Wxq/8/gnQudQRCvm7c763 1oSvVHa+/mSQBnzc60nKrdmpHjN/4YSwioKDFfpC8230Y/xO2PPE+R9Yd667IjwJjwtw/oJNzEfrxXNs vfPAtjAfrbfet/XiG7be+sjWW++e5wuA34S9LG/iqZCjKg1CgcHujdDajdNpvuPRvqyhP3ig97/4hm34 y829c2RjvzcW+4Y713unzZ3Q5byu607cX0N8msdiVj iL+JVtx/tKH5biB/i+e+H9jd9f/MojfhXPX/85gqsovPn2Acs+8tLw/lsvOOJXXgbqf/H4oh515FQAT9 /18ta/Vze1hnLDgF5/dOEf29Hn62YCFhZfrpCYAFtog2/2+uIbXt/3yVdsmE6/N015yxT68Ba/4P2B9y FvNbTreP/deys5Aw5eo3w+8dNIkav31ppf94sou20q w8lyJma1xf/kyLg2akefwhvew599Zcm+lLyFh0F2Pwgm/D7x+8TvC/2A5BsR3a8iCE1vxtJU6ca/633v b/x6h7z9+Svvb//IFb+K5+hbswFeg6N+tx/q/j32b3x2r0TwdJzc+PW+0M+N+t/+vo+3v+/DT7JAmy/F X78iyH5XE+n8wOQIzGPFgHiYUp/5J6Ompj8LP6/Justice/ Y8HL+/8xs+2keDrr9hO+ZeqZkz1qsizSl82Iv1+BzH3vMPK2n9SlJK6fj6h4xqAwpFkg0+handwriting expert/shdvd+ vFewFP1A/3951Hyai2wNzxwMn1a/0hBreP0uj+f/FJx/5xx5WohHrgjWbS6vv2foApQDEwvQ/NR+4vHu s+2y9O1zfnLsKH2xkQj/p8+ws+33lgR/oN50BbOt6+ 4zbUEhp9AoGgzPTgiyBrRRq8/j6++ECUv1s07/tO+PhxfUgewr510AEqn/i+c0Mu+GvXu3wv/K53/tlx fg5num4Y0Ya5qbkknK72C34cxkc+s7nlAEk/MH5x/bdC5Ddx/T5eih1s8GO7oF44y/sBU7kkURpk3s/3 I533Bv4lV9bbb3z7t/Ankur/7F/iWycKvd2wa7r021Cy [file] w1vrilbTkiEcljgj4p68y9ssuraQgb4zdvkf4q95d+rxvmvD8z3fievy6f89z+nbhgxVMxPltzjV0I59 oxhdkeaWMsXndtkN1E70m1aikxoVjfejyulP9M17f0 elsftFriOw7l8M5jyZ846mjha/VX/zDPOFXfnEecnrsSOfKkNzzt/v36awXa++euvAAo3c+H45oUmPC2 izhT8IV3GmsyhP9y7M4gAvc8zp9tzsDQoqW2aA8zSr9KjUCJ2/bQJ42sNWE5EvLyaR2Ex+4le7otAEAr PZA+rY7HF4EgOI1LZ5i2GueY+jCuQ1lLv7u+HT336+ i5z/aOdQ/eb1/rj8RL9s49NZ97t0/ruWfg/qT6Lykve48g8f1i0RUpZBki50e8bA/27kOt62PJ6Qd940 q2t/OW8p1vefHY4k4x9ek/zPZGXd/py+wSbO1g82nhAA/cpmnQ1Rv6X/HkaZTO4iTp/bbkeCQm8K269g lMtH4km714byiVp00mWC1Hh9bghXL+Cu7vp/7aT/11 BS0c0afqoR648X8Tb5DFF8t60t+deLkFe7WhoT8hCIg3iM3+KlC5nWpZD+7vRw+Y5is41HS4E6EeV4ZM 43z4mShSZIzP3JO87/Dp06twl37mfxvub06JYzcQuHgVQ6v7irAXn6OA74bQZ/y6Xbg+5AgZO9p2mkVN 0V5P3J/vkQCebD22pZuxIrguK0xn/i97zw2n44L/xm dLGEOZ1pF3f409X50pbbeF2jbNO+830J8T/LhpU626O8zLE1aQ9lhB4wV1CdjdmBkJtH3Y0WyGbjjwpG 4P7e1LfyTc5k4AOjdIZKudGM3S95yoyMRe2xuXyr12NaJij1sql/qtphtf6fkajo+oLktzJfT16gsjM8 PkRQ5425bZIemIac9aM32cfh+f7amWxjjFk25J7A7c 6QPpA+gzm6HLhzg/1Gtykcc28yKupvsuyvoSwbybB1PKrmy2wcPrmnwFqn1ZM8Hb8lf+MJHq7qk897fh SL/tM19ykhR34rdziCvhG7/y5/qcx95qUmfL/zN+VEJxA65UljvQ9zx2UN73okR11vL9nuPwVI10J0BU 6Yhriex9ihRrT5y/9rMs+3uSapy6HertL3LGO3dxfk vSA+XL4mcsEp/A84hm4AyPI8Yymu9cs/els3QsuJsEu/wQ0apzy27huo64HnpSrqJVkIR9k7pUReJjNN /BoGXb3XX5i0hM7WHH6TC2D6EaFZkGymFst/6XfbWvcT/scjkuX8f3fVW9udFy4oqeudzjA0g2+oad/y IvdY6kF+3ro2c7/3Cw587UUU4Hvm+CGOYrO/akLPtq gf6hU7NDdrzSYW3c1ai4liKbP1EkpT/7qoKaTPuqtglN+2pf3+5m4UpZpnOOGe20raDJ7Sfjk24SGJ+t +i/2efuj3Rlq1AQfC9yR7Sl8Tn9Bj/tKaj/SbV/RSoc1yc4cemyXqJTsYHlyXgGzwoa9ImSV6omOCWqs oYbpaul72/mZ3ODjhN+63swKmm1ORz/3tq+kVodv+0 lgcWa7k9oT4CMpayRLNkydOtqWxu34kYbs++gx15WBPY+ztwMqv6Ft1FZezg4Z38P3D3vdtd3ym9eT1I +5I8Nq850d+8lzR22v/fz/SqI/J/pzoj8n+pVMlXMItzIw5tfls5O45Ia6nBD8tyNu3pvT4nxtg/p1Ib 7psLThxE9Z00gzHA6IK9cAnSgJMbqM3CS++3Xeb1/2 4h4NryPnkFtUP+ueZV/VNdoL/qqDv+qXyzh1Y9hzOS4IN8kKjPiCYzwQxWR0yp3F1L0kt7kf16rHpXoE 96iDv+rgr/qyr+Z83hd/AhX23kay5Yy7fuboZ7EiKDofU6Xt3N15NE5N6Oy9GP/14uom9ih1lb2t+rx/ 2Vfr/qUn6hIntgB5Sgre5EnGR071mj40z2VzHDfzW3 IDpdH01ldBM8u5+c23avd6vuqffP5gvca4MG/8VsCZ9jm2EKh/pW128DhQ+6oPjN+M6PyYdc0dZ17JHi 8LfZz/oz7O/1EfgfRE+wye8HVzid3/wa7n/6gv+1ckGmsD9R7fCxogDE7SQ3Ie4k8oumTRulYm0A53Na UnUc/D13U7/78d/SRUj6LhMK7KXsdDjo9tfY3ROo34 tNfQXjv/v93O/695Ndvqs8dd3t1Mg+qG9+tor+F4ffB2G4nhGu68x4587Aek/MY5pPt8FSt7n/FXdf/h 10wvHtg45WSxV51DrSeLC6/V4/aV5xXeszNc/P/2xV/AhJErlR21Wata9EF8FUn/6MElPxC28M6y4T93 5U4fcXV62W85mZ4Z3pbsQ/cbVi0uu8/kjn0olV545c g89LcpxZ/i/YK/1jba74XH0Xi5+Pgd3R0LYWh7ZIFros3r21fongOm/xP3OJa59wZua/mjDLr3M/zVAH 99ak8q58u4Ajgj5BLvUAbaF4GC4Ej8R7+NZV/m35Bgyaa6vjxC76U6h90v+9Iogpi1gkIM+q8e6UqLVZ mG+d2pY3HL0JD1FIpjv1Wf+3nIsZ+TNUD4uWtcBX5k r1JthiQZcqoxdZ7KlmpKKA33BGcj9LZxSPgWTzciW5NI/Bh55fmQEetNsc8+90cX3C+1wyP4G41aaBWx iW96wpZ7g09c8B12fn92mFrM9rvH/VaZTeTBx5Fbss4p1Hz6sZMfpFHDnkIY6bJjU53SwivB+kpaG6sb MNzWR2sflQAKq8M+1o/W/Wd+HrU+GWtQRBmG4pn1dj D8a0b1t8oIWFugtwFQyFRjGE2h/xqnPCgIJC6uBD//haGK+k6bniLMccK51ItJry1/1KV5V7U8Uk5Lcd BQ0DIYH/BXA/nNLGScD7364SjMz1biJxcAMA9t5AWhsQ/ZzzDs/I8EG7Ih/0Uis63skv0HuzQ5tpDJ/m o43q/j/XrH/Ruud17Z7aahCVwaj/t1vF/H+4H99tUO xXzleL+S0ab7b2N5tNE2RyU+M9X72fX0/a55zk2LhdNW8aFF7nwehW/iG+eBj+Xd59jAbvKwj+Sofía+t1 z+TsvzMUrvDCFVJVUdugveLWQIexlf3hsyzMcvee8Ya+Hb2p0rYHT50pOdLTKn8nEsGAkuRcfr7ufkBl 8wz4u76a5xP0vp/96QiBMJue5K0+jTKkA9EZtW2uKd S6Fo1SLlU88msXPj/vzarzzU/sofía+4hTEjBYv50CAZ5atmoMJ683jND+tAvjdUb6SN9/ih19E8vgD/pe CvFPyVgr/S6/A5eh0+C3OlIvtxGR+l4K/5mgD69nIo55xr24c/ij28Xggyj0Ppq9aI8kzP3oKUhsJZC5 g74vxGA3MH7kUyzmFCwyCu4F6ht8X7KmYd+s4r9y0P +0egKllhY7JCd9gs/OykcoPC3J49vjPDhZAJ1G9JauCyYEt4Ke0Nhdiuuhal/ln74Z+1X0hHe/uxJxX2 lcK+UthX2s/1vR5Jz7cXI7t4wV+1n/rLXQ9h2WuJeaUq17br/fZA/zYuenx97M7R4HX5dL7Z0Z7v16S5 wV/vVMfLov687bPJ+qPpV58Rht5DXn51ZMpd/ED5gX SS8Ox1ChI3hAW7EIJ+uIsvWPfJSwAJAvnPolt4kI+T7lW6PFT+pZrjKMrLmx51RoAfI/F+MmZS2jHl6K /VDv+gfyhyYeo1a2vsu3rv2GxFgn6+M16pxQB9/X9x2Uqu/gR/hvSnKElBnzQ3sX1Rg+4Vkz52pN4bKk //C+eji2HTfnQpvN07/+wn1Np/te7pKH+c5/pZD9Xi r9Y9Z3+pua0KS5kv/0rdcX/g/kA6vkd+/a931N2DR+wR7P5xmfLT9qe1G5D+E66XUcw0V0A+K8X+K8X+ Fq3LcbRjrK4WR9Tl2fZo3EiS/ugm4DWxSj+SYv+VYv+VYv+JUem8WTkibdY9iXS/lSbaC/5KE9+jxPcI /JUm3m+e/bGaZ7+CTDjqyJgeO6Zgk0NHPObiJ4C31q bWO6qplT5+/dyu8/4g80xlR6F+2tf+Nessa+1vf3zrnQMSCj5pP24Yvks8P3tlc8dD9cS/ZaeQ2ut/8rama [file] //Tt15/+/XLAJs9F45jjjC2xP2188mc07/9k/O6TT9 7e3t59+fX7z7/49O3dp+/cit6rka/+1Y+hymska3Rz3P0mEklxiKnA4164/dXbu89+//6zX/+d2+4P8H 3bF1+++/WrEp9+8su/s1QlSyrj8k/ePvny17/5+N2nP3/44kwfL3mepP78n1waR/kfX/3bnbH4q693ti 8gUhbxXa23++rzX37x+V8h9g5q/dzag044dW8/ffvd x1+9/eLLr7/4+d/RlEjJc21Jpb/u3//8w1++/dPbv/3X2yff/PAf3/zwt39+e/p0e596g5/e/vCPTf/w T2/ff/sPB32zaerwP160vMI44/e2m8qjGd+2YpH6u52++lc+MiHzaH3l+C+/Vt9pHyG03sr/WfkM7ZsL f7n+uXXC8Zkvj8w0vco5tPA2UrO5wLiX8WyeOltWae ynGaTmvuHdt//+7Q8/SCS07Po62raagwh1v8rorhdoi506+bsP2to/yHbU+7M7X+t06At323C34WL/+0 C/2yBNMb1epcONnnS80367q805++Oua720Yxlsd0ji2beo0/AMsq4YgvEMz7URA9/gb969/sh6r242w/ /55j//BiBssL5Cu+q+sRg/Ln1j//ruq7c//e9X3f/8 /Xc/Ln76i/qT6ygBA/vX9z/91/d/1UgED1VHJ270fdt/HT8GpJyfcKiqzyo/CG6tSq5FGS/5fz798rri vPvJ+7dv/u+3f/3vg+W2u8s1aWfuuY/J3An/e594Vd6/9cMf/ulHd+/38Itv//SFj18ydhOK/JNv/vcf v/nrn7/00ijfyL6y/vm7H+c/Q+X6z3/579hkOm12/v u/fDQu+9ENu72/+e2EOm0oIrQQvAXt6A4n/bd//I/v/vzHVwVfo+3eLtjB068wTSeit/7t1ev+9NGXf/ uPb3/Ectzgq0e9FJL/+eZ/jecQ0b1/9w+F3JdCo3hHt7PU1/Izsui3fb17OC/68/hlxLu5EAmfC8vSyo qgux9js9/uumvPSA4G2gABWzgPfc04+6Tnd2oz8ltr 8/8SQXP4ryxlpuMwvMGtTA4QQG3dt4FeLgR7ECRci7WsBOtiZDc9nSSkPTthjzTlg6QwlvzsG7Dhd4Cf ZiIoTUWuYhSbDfc0EYQjUiL9jAErBrPyORFeB0RjTATuYfH6DoMrJLELFK1GXTPuoxBoIfSgUAI+PmVu CP8imwjsSJNff9TbEAubMUaqSHWqR2Z1oJibKORkD0 YwqS00NSVyH1CamiB7WKW5RRWoEtDeANRecPLcSMXiTIJ+LgDyAU1mpotyWYZon0QsUOthNAF8hS1xEO oFKPMFDKkIJGzdHqX5t84gpvAVUJVtLDQaZF8UcgIhxFlrasJonREtCEA8VkEvWPK1NLfwUVJ6JRMLEM OgQCJvCKEmYTIlH0LsaEwrATgYWZAEMSrPAItqMxIh h7R9XVHahbRPFVBFY76uIUwBCmEXONveVTX0ARRxBCbvM7Z4DpdmJ6EfYM0VE8NeEKOyRYNLWWIceoUl OH8WqkTqqQ5xZSpZSBUYIHtGCOkcWqD9q63youQITEJiDZQlVPffAHMxUNUrKKQaSMSyIUUwUOBwNMQn ME3MR8OwEYOhHXGJFWK8c0TpCKIpoypgkkriIf9fet RvYmo+RijcVEZsk8EdCBzxH3A2pMSbC4FoH1XqPP6YxUIiDErzIBKlVKTaDDWpB444toJdBN2+ZW5kb2 RcFgorBGFDTHEgNAPuTYIsIWJ8YlYkCEUoOLZvUCPhNlA8EcTnXpCYRIUwGFJ3YZbfCSYxBTAhTTCrBN nxHAZvDAO0AFhxAISpIDOqLG2cUaZbYZJzMyX0GBNi IIUpFKCnwyMMWABsSXQjYCGiQIF6HMNuVZJdQZpnXBDlOLVhPNI8HSJyAXGfMW9qOpYtUDBrFNIbAjpj CHCxKEDwfkLUFPFwUHDgDNK7PwZhNFLiHIUmVTlqMIJvXHQhPaa2SRCeXFJsOF8fEvXzSXHwLVT9EInb MDAwMDAgbiAKMDAwMDAwMDUyMyAwMDAwMCBuIAowMD IgJMJdRcAjCRDgVCXoXJ6uDjJaKIQnYUY2JSWnIDYjIPIucdLDOEUnLOBbOSy4WKZtMNIuSWOcYVccNY JlNRNpEZJ8TNNnUCXxWD2fEqQyBDEbDOKkEDFxGQRsRWKwwfCEWRGhALVgOZI5BHYmXFEwZAWbCCwcTA OaUBCfPep4NGSdJSVvYW2rXhToFPVnKTM4TYMdLUPm XMJakuISZVWgCXE2JTK2SePhUBKfPXHnSTwhBFIpYZEhUkA0ODJuHSRzQD8fPlMkEMGgYKI5DvMsWPNq ZHPggzZDYEBjKCCzBMD9ViFdTEHvXABqZXuqOFQsBJAcPAHeBCN2LSV6ILCcSbSbOKakRLOQWMwTA2Xd psCxXxKFZ5tqXx5jQwEfSOKYA9Mer6XnJCDrCASBXq9+RiH5LFH0zGKkNwf5AKd5FVmsHOULGm== ID Date Data Source [id number] 12/29/2020 06:59:52 AM EDT [facility] Name Value Range Interpretation Code Description Data Catrachita rce(s) Supporting Document(s) Bicarbonate [Moles/volume] in Serum 24 mmol/L 22-29 [facility] Chloride [Moles/volume] in Serum or Plasma 105 mmol/L 98-107 [facility] Creatinine [Mass/volume] in Serum or Plasma 0.77 mg/dL 0.50-0.90 [facility] Glucose [Mass/volume] in Serum or Plasma 83 mg/dL 70-140 [facility] Potassium [Moles/volume] in Serum or Plasma 4.2 mmol/L 3.4-5.1 [facility] Sodium [Moles/volume] in Serum or Plasma 138 mmol/L 136-145 [facility] Urea nitrogen [Mass/volume] in Serum or Plasma 15 mg/dL 6-20 [facility] Anion gap 3 in Serum or Plasma 9 mmol/L 8-15 [facility] Osmolality of Serum or Plasma by calculation 286 mosm/kg 275-300 [facility] Creatinine/Urea nitrogen [Mass Ratio] in Serum or Plasma 19 [facility] Calcium [Mass/volume] in Serum or Plasma 8.6 mg/dL 8.6-10.0 [facility] Glomerular filtration rate/1.73 sq M pre dicted among non-blacks [Volume Rate/Area] in Serum or Plasma by Creatinine-based formula (MDRD) >6 0 [facility] Glomerular filtration rate/1.73 sq M pre dicted among blacks [Volume Rate/Area] in Serum or Plasma by Creatinine-based formula (MDRD) >60 [facility] ID Date Data Source [id number] 12/29/2020 07:07:33 AM EDT [facility] Name Value Range Interpretation Code Description Data Catrachita rce(s) Supporting Document(s) Leukocytes [#/volume] in Blood by Automated count 7.0 10*3/uL 4-10 [facility] Erythrocytes [#/volume] in Blood by Automated count 4.50 10*6/uL 4.1- 5.3 [facility] Hemoglobin [Mass/volume] in Blood 13.0 g/dL 11.5-15.5 [facility] Hematocrit [Volume Fraction] of Blood by Automated count 40.7 % 3 6-45 [facility] Erythrocyte mean corpuscular volume [Entitic volume] by Auto mated count 90.5 fL 80-96 [facility] Erythrocyte mean corpuscular hemoglobin [Entitic mass] by Automated count 28.9 pg 27-33 [facility] Erythrocyte mean corpuscular hemoglobin concentration [Mass/volume] by Automated count 32.0 g/dL 32.0-36.0 [facility] Erythrocyte distribution width [Ratio] by Automated count 14.5 % 11.5-14.5 [facility] Platelets [#/volume] in Blood by Automated count 234 10*3/uL 150-400 [facility] ID Date Data Source [id number] 12/18/2020 09:42:25 PM EDT [facility] IR LUMBAR PUNCTUREFINAL RESULTInterprete d by:CATHY DonaldEncephalitisFluoroscopically-guided lumbar puncture.Technique: Informed consent was obtained. The technique, benefit, alternative and risks were explained for lumbar puncture part including risks of infection, bleeding, paralysis, urgent surgery, headaches and others. Patient expressed understanding of the procedure and wanted to go ahead with the procedure. The patient was cleaned and prepped in the usual sterile fashion. After injecting local anesthetic, a 20-gauge and subsequently 25-gauge needle coaxially was advanced and entered into the thecal sac. CSF returned and was collected in four consecutive tubes and was sent to laboratory for further evaluation. The procedure was tolerated well and there no were complications.Total fluoroscopic time was 0.8 minutes, total radiation dose was 40.7 mGyThe opening pressure was 25 cm of water and total 16 cc was removed.Impression: A fluoroscopically-guided lumbar puncture was performed, as discussed above. There were no complications.This document has been electronically signed by CATHY Donald on 12/18/2020 9:40 PM Name Value Range Interpretation Code Description Data Catrachita rce(s) Supporting Document(s) ID Date Data Source [id number] 12/13/2020 08:03:03 PM EDT [facility] Name Value Range Interpretation Code Description Data Catrachita rce(s) Supporting Document(s) [facility] [id number] [facility] [file] [id number] ID Date Data Source [id number] 12/10/2020 07:13:28 AM EDT [facility] Name Value Range Interpretation Code Description Data Catrachita rce(s) Supporting Document(s) Leukocytes [#/volume] in Blood by Automated count 7.7 10*3/uL 4-10 [facility] Erythrocytes [#/volume] in Blood by Automated count 4.47 10*6/uL 4.1- 5.3 [facility] Hemoglobin [Mass/volume] in Blood 13.1 g/dL 11.5-15.5 [facility] Hematocrit [Volume Fraction] of Blood by Automated count 40.7 % 3 6-45 [facility] Erythrocyte mean corpuscular volume [Entitic volume] by Auto mated count 91.0 fL 80-96 [facility] Erythrocyte mean corpuscular hemoglobin [Entitic mass] by Automated count 29.3 pg 27-33 [facility] Erythrocyte mean corpuscular hemoglobin concentration [Mass/volume] by Automated count 32.2 g/dL 32.0-[facility] [Ratio] by Automated count 14.8 % 11.5-14.5 [facility] Platelets [#/volume] in Blood by Automated count 238 10*3/uL 150-400 [facility] Differential cell count method - Blood [facility] Neutrophils/100 leukocytes in Blood by Automated count 61 % [facility] Lymphocytes/100 leukocytes in Blood by Automated count 26 % [facility] Monocytes/100 leukocytes in Blood by Automated count 9 % [facility] Eosinophils/100 leukocytes in Blood by Automated count 3 % [facility] Basophils/100 leukocytes in Blood by Automated count 1 % [facility] Neutrophils [#/volume] in Blood by Automated count 4.71 10*3/uL 1.8-7 .0 [facility] Lymphocytes [#/volume] in Blood by Automated count 2.00 10*3/uL 1.2-4 .0 [facility] Monocytes [#/volume] in Blood by Automated count 0.68 10*3/uL 0-0.8 [facility] Eosinophils [#/volume] in Blood by Automated count 0.22 10*3/uL 0-0.5 [facility] Basophils [#/volume] in Blood by Automated count 0.06 10*3/uL 0-0.2 [facility] Nucleated erythrocytes/100 leukocytes [Ratio] in Blood by Automated count 0 /100{WBCs} 0-0 [facility] ID Date Data Source [id number] 12/10/2020 07:57:05 AM EDT [facility] Name Value Range Interpretation Code Description Data Catrachita rce(s) Supporting Document(s) Magnesium [Mass/volume] in Serum or Plasma 1.9 mg/dL 1.6-2.6 [facility] ID Date Data Source [id number] 12/10/2020 07:57:05 AM EDT [facility] Name Value Range Interpretation Code Description Data Catrachita rce(s) Supporting Document(s) Phosphate [Mass/volume] in Serum or Plasma 3.9 mg/dL 2.5-4.5 [facility] ID Date Data Source [id number] 12/09/2020 09:03:00 PM EDT [facility] Name Value Range Interpretation Code Description Data Catrachita rce(s) Supporting Document(s) SARS-CoV-2 RNA 2019 nCoV Real-Time RT-PCR: NOT DETECTED [facility] This lab was ordered by [facility] and reported by [facility]. 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 [facility] Patient has symptoms related to [facility] When did you start to experience these symptoms [Date and time] [Phen X] [facility] Patient was hospitalized because of this condition [facility] patient was admitted to ICU for [facility] Patient resides in a congregate care setting [facility] status [facility] ID Date Data Source [id number] 12/09/2020 10:42:03 AM EDT [facility] Name Value Range Interpretation Code Description Data Catrachita rce(s) Supporting Document(s) [facility] ospital LAYDIe7kNyTDGkMsm1QwGgZcBESeSG2nypq2B1H5gXLrU6QtrKJrq6epP0PgR1PfIXCjLVSNWS3DgYHe jb2 [file] [id number]oUgUS7T ID Date Data Source [id number] 12/09/2020 10:41:48 AM EDT [facility] Name Value Range Interpretation Code Description Data Catrachita rce(s) Supporting Document(s) [facility] BQOBLg4xCpZCHmRsr2DsIlSeEYLqZT7nicd2A9X1rURtP5WyhEApd3nzL2SwA3CnDQWhCYEACA3UmVTj jb2 [file] [employer] celebrity services+Udj5yXgJb/2osmp999S+9F8tB/NR/vRfLQfzWeB [file] [id number]+8+5cCj769Ib65064ho/fvf/2iw9/ +Fw5pai09yp+6999+OKrd2/v3314/8W733/91E8Vp1DP+88zgswxatCgeJ187q/360y8G2/9/v6uVn14 +uhc73239tiB//v3oEpz0r9/6nZsYu310vRCa9/96L3ox0h19ulq0ne3+/IPb5/+8fhkDbii6cD/c+d7 dQ2HcZJB0884g//tY6v60I/+zs+hctvwW459/O2b91 9/+fVX//lb05rzuwsacb+QFP1aXM444al5p84+zTefvn/99t+++SRfy2mz/bjh7454FhuzcdTYHl/579 viYo42du89+u3bL/71qy9+9TLsVx/yNtd0k06jj/3bp9++/fmj8837ntlNOI6cb649wb//809//eH7/3 j7H//77fd/+vOfv/vrX7//7s///Pb5dz/+6fs/v/37 P4j/+z++/eXHt/kL8V/l82seIXzn2VS+/g6xfQK3tZYsAstLC/jeff/gt5ULnbV8xU81Bitx4algk62// S5AryQdZ4Z/Ff3BcGDCcg1e88mt1e6Gl8i4fpNheIdacB1B/p46qd4rXf//g/ff/+p4PZddcHgy0f/f+ u45mvlv4+7mfjjqHAu6mVo6U//L+S8c1ENm/jXPspy r/8hvaNyKuHNAbDdQ+agO///7H//6Xt79+99/pg5T763U6twC86j/5gT2B5sQ4dnSi1l2L01a/+9OP// 39X/+wf2k8hN839at4t4x/vuDfefeN/fb9t2//8T9f7/6nv/m617eSRHbo7L1e8HY//dLP2530G/DXuK jA26W/eDHsj+4eLxhBI+4t3GgAst/Y2F0brPnF7ugn W23sm5+///mHt+/+1/f/3flP3qzkm/z8688+/Dw23P/4G1iUiG/913//x5/8en+HX33/w3d//ugLr4/w z777n3/87r/+2O9FP2nHbjQtc/rxp/8/beX68//42/8+Rnz/l7/88Mmrmxf/yU92ib/8yx8/GWxvseEm UxPc+Ifv//h//dqiB88n4BV7dc64/eSnkQUkf/pf// 2qdf/xyTdff/vtF7/76vO7h3+e+ItP//x9JJGTJE//4ceirbgi1Tnf9fgH+v//k3vCpG+zeuhvvvs/v3 +Tt7/54tfCsth7Rf/09m274Ss52k67/WIC7z7/8En2lC+CxO307/efv3v/GUTjbcvG3Mceh8084YcqSh W7U9t6vak4//Q4vQLuRzECC0asKqaOgwoiJwQqkZ ZJxyNGCgIpj3GC9QqCIxKUOsH1A9JHIfhj7xOARsZICvsDNhGnOvXTGMYF2XoTOrWC0EAOv1DGDtVGOa AoFvCKDfvtK7OWGeLAVoDTKiX8VhqdQkiGPaCBQuNj2+DC7uk9VdBzAiXUTqUcx0AK0ToWCuTQ2JcEAk xA3jtiSxZ695juLaDRIoNempi9MaGFsmYKBAYW8JUS V4JVQ5BFJvMv1+IM0ze4IlQfQoBUJrJwg1RG7RfYWgc6NpCI1GF8NvRHPaDLOETHN7v2KcCYNinadoon pdK9AcIMJ8uL7nHJW2BNNpYOriZNSjCJksFGGmZBObFKnpPBKnTULzAASnDCGkQDk4iSEsRN7JV9UbMK HbBGYODFCtpoBdXk6dFKgRKPTKGlyzXAyMMALZIRDm MWd4BMK5NLTwI5DiuqQgzAKsDVPGIUmeVkjmTQQwkT9krRtwM4ZxQFT8c8YbBX2SK5HjHHGdCAGSEQL4 b1LqTUBdeswfelsfXtFpYSOtXTIeAUAoHY5Odu7knPCmjsDiQDIHBOuaUrnmAN0dnWtiwdoiJ2SpfYDm KSA+NmGuYO0yqs1+GlTqLKGrQka6GZAgUMalTZPpTO WfALFoA2jgWHTgPlCwNOUwEkWwFU2Ig8NnmMZpMa7syxEfHbdUdIZoXkixRFFmDFEnUZVeNyVIXROyKF YsEIWuFMO9DISzTWUuJPklOBTcVZS4Zsj5KPKmQXMwLA3wLbNdPBKjAyL3KHVbPEVfOTHsdoTYAOBiHI T7BAOrFBChWIVtASYyMIqrCCVxWYRrKJDqNKJ7HYP1 NZKzTwSdOYDcMNSbKGCeGLUbKXGrtcQWAEVdUEKwZNM0HSHzPAVvCENaZGdjEXUhBNBoXWlePBQgAYDj KG4dEiSbSPHsHHNuQYoiNJIcEZFgciBGMXJzPJRyEEIjUTHzPKBpCDPoDJlsPVZaNOMtEOVlMVHdUKCe RP5pDqYvNNYpNUR9OBQpWLGjPALopdUUIIOkUUJgXY s5DDFcLIDmTJPiBWegSHCbPBXlLZJ6GQKzNOCiTB0gUqXeRESeZWO8AmRjIUKrTFBhxrJQEMOpLCWdWI R0EyNuGEAkHWUhOCacDAQrXQJqRVtxCOZsNRTbKO8eFfXzHYOuWWEvRZblNAPhBZUlfhYJCEBbSTCeNH GvFlSkQGKsRIFkCOtyUWRgUEK7AEEzLGNhCXKgFY1i WxBcDAQiEFM2XFagBADvZMFdsnWQOUQdBEVwIDdwKZWyXWXqORYzOYeoHBPpIXZxLTB6IAHlCWPcQL9f QjIiGMYlQUBgNFKkZmL9NdUmDiVPfROlmXcqxyf4QYksK7k8IFSqBHheDQ9qllFpGPGyZpwyPg5zxAC9 ZHVyCmzTNj8Gx3HqagD1xgCvPdN0ZgE8EgWnVX6T ID Date Data Source [id number] 12/09/2020 05:59:43 AM EDT [facility] Name Value Range Interpretation Code Description Data Catrachita rce(s) Supporting Document(s) Leukocytes [#/volume] in Blood by Automated count 7.8 10*3/uL 4-10 [facility] Erythrocytes [#/volume] in Blood by Automated count 4.46 10*6/uL 4.1- 5.3 [facility] Hemoglobin [Mass/volume] in Blood 12.8 g/dL 11.5-15.5 [facility] Hematocrit [Volume Fraction] of Blood by Automated count 40.4 % 3 6-45 [facility] Erythrocyte mean corpuscular volume [Entitic volume] by Auto mated count 90.7 fL 80-96 [facility] Erythrocyte mean corpuscular hemoglobin [Entitic mass] by Automated count 28.7 pg 27-33 [facility] Erythrocyte mean corpuscular hemoglobin concentration [Mass/volume] by Automated count 31.7 g/dL 32.0-36.0 [facility] distribution width [Ratio] by Automated count 14.7 % 11.5-14.5 H [facility] Platelets [#/volume] in Blood by Automated count 257 10*3/uL 150-400 [facility] Differential cell count method - Blood [facility] Neutrophils/100 leukocytes in Blood by Automated count 58 % [facility] Lymphocytes/100 leukocytes in Blood by Automated count 29 % [facility] Monocytes/100 leukocytes in Blood by Automated count 9 % [facility] Eosinophils/100 leukocytes in Blood by Automated count 3 % [facility] Basophils/100 leukocytes in Blood by Automated count 1 % [facility] Neutrophils [#/volume] in Blood by Automated count 4.57 10*3/uL 1.8-7 .0 [facility] Lymphocytes [#/volume] in Blood by Automated count 2.24 10*3/uL 1.2-4 .0 [facility] Monocytes [#/volume] in Blood by Automated count 0.72 10*3/uL 0-0.8 [facility] Eosinophils [#/volume] in Blood by Automated count 0.24 10*3/uL 0-0.5 [facility] Basophils [#/volume] in Blood by Automated count 0.06 10*3/uL 0-0.2 [facility] Nucleated erythrocytes/100 leukocytes [Ratio] in Blood by Automated count 0 /100{WBCs} 0-0 [facility] ID Date Data Source [id number] 12/09/2020 06:13:56 AM [facility] Name Value Range Interpretation Code Description Data Catrachita rce(s) Supporting Document(s) Magnesium [Mass/volume] in Serum or Plasma 1.9 mg/dL 1.6-2.6 [facility] ID Date Data Source [id number] 12/09/2020 06:13:56 AM [facility] Name Value Range Interpretation Code Description Data Catrachita rce(s) Supporting Document(s) Albumin [Mass/volume] in Serum or Plasma by Bromocresol green (BCG) dye binding method 3.5 g/dL 3.5-5.2 [facility] Bil[facility].total [Mass/volume] in Serum or Plasma <1.2 [facility] Calcium [Mass/volume] in Serum or Plasma 8.6 mg/dL 8.6-10.0 [facility] Chloride [Moles/volume] in Serum or Plasma 103 mmol/L 98-107 [facility] Creatinine [Mass/volume] in Serum or Plasma 0.81 mg/dL 0.50-0.90 [facility] Glucose [Mass/volume] in Serum or Plasma 86 mg/dL 70-140 [facility] Alkaline phosphatase [Enzymatic activity/volume] in Serum or Plasma 109 U/L 35-104 H [facility] Potassium [Moles/volume] in Serum or Plasma 4.0 mmol/L 3.4-5.1 [facility] Protein [Mass/volume] in Serum or Plasma 6.2 g/dL 6.4-8.3 L [facility] Sodium [Moles/volume] in Serum or Plasma 134 mmol/L 136-145 L [facility] Aspartate aminotransferase [Enzymatic activity/volume] in Serum or Plasma 11 U/L <32 [facility] Urea nitrogen [Mass/volume] in Serum or Plasma 17 mg/dL 6-20 [facility] Osmolality of Serum or Plasma by calculation 278 mosm/kg 275-300 [facility] Creatinine/Urea nitrogen [Mass Ratio] in Serum or Plasma 21 [facility] Bicarbonate [Moles/volume] in Serum 20 mmol/L 22-29 L [facility] Alanine aminotransferase [Enzymatic activity/volume] in Seru m or Plasma 9 U/L <33 [facility] Anion gap 3 in Serum or Plasma 11 mmol/L 8-15 [facility] Glomerular filtration rate/1.73 sq M pre dicted among non-blacks [Volume Rate/Area] in Serum or Plasma by Creatinine-based formula (MDRD) >6 0 [facility] Glomerular filtration rate/1.73 sq M pre dicted among blacks [Volume Rate/Area] in Serum or Plasma by Creatinine-based formula (MDRD) >60 [facility] ID Date Data Source [id number] 12/09/2020 06:13:56 AM EDT [facility] Name Value Range Interpretation Code Description Data Catrachita rce(s) Supporting Document(s) Phosphate [Mass/volume] in Serum or Plasma 4.0 mg/dL 2.5-4.5 [facility] ID Date Data Source [id number] 12/08/2020 11:46:10 PM EDT [facility] XR CHEST FRONTAL ONLY [id number] RESULTI nterpreted by:CATHY McelroyPROCEDURE INFORMATION: Exam: XR Chest Exam date and time: 12/08/2020 11:08 PM Age: 35 years old Clinical indication: Altered mental status, unspecified; Altered mental status, unspecified; Pure hypercholesterolemia, unspecified; Other: Hypoxia and SOB TECHNIQUE: Imaging protocol: XR of the chest. Views: 1 view. COMPARISON: No relevant prior studies available. FINDINGS: Lungs: Patchy and streaky opacity in retrocardiac region, could be due to subsegmental atelectasis and/or developing infiltrate. Pleural spaces: Unremarkable. No pleural effusion. No pneumothorax. Heart/Mediastinum: Unremarkable. No cardiomegaly. Bones/joints: Unremarkable. IMPRESSION: Patchy and streaky opacity in retrocardiac region, could be due to subsegmental atelectasis and/or developing infiltrate. THIS DOCUMENT HAS BEEN ELECTRONICALLY SIGNED BY VIVIANA Gibsons document has been electronically signed by CATHY Mcelroy on 12/08/2020 11:45 PM Name Value Range Interpretation Code Description Data Catrachita rce(s) Supporting Document(s) ID Date Data Source [id number] 12/08/2020 05:45:01 PM EDT [facility] Name Value Range Interpretation Code Description Data Catrachita rce(s) Supporting Document(s) Ammonia [Moles/volume] in Plasma 52 umol/L 11-51 H [facility] ID Date Data Source [id number] 12/08/2020 05:20:17 AM EDT [facility] Name Value Range Interpretation Code Description Data Catrachita rce(s) Supporting Document(s) Leukocytes [#/volume] in Blood by Automated count 8.4 10*3/uL 4-10 [facility] Erythrocytes [#/volume] in Blood by Automated count 4.29 10*6/uL 4.1- 5.3 [facility] Hemoglobin [Mass/volume] in Blood 12.8 g/dL 11.5-15.5 [facility] Hematocrit [Volume Fraction] of Blood by Automated count 39.1 % 3 6-45 [facility] Erythrocyte mean corpuscular volume [Entitic volume] by Auto mated count 91.1 fL 80-96 [facility] Erythrocyte mean corpuscular hemoglobin [Entitic mass] by Automated count 29.9 pg 27-33 [facility] Erythrocyte mean corpuscular hemoglobin concentration [Mass/volume] by Automated count 32.8 g/dL 32.0-36.0 [facility] E[facility] distribution width [Ratio] by Automated count 14.6 % 11.5-14.5 H [facility] Platelets [#/volume] in Blood by Automated count 264 10*3/uL 150-400 [facility] Differential cell count method - Blood [facility] Neutrophils/100 leukocytes in Blood by Automated count 63 % [facility] Lymphocytes/100 leukocytes in Blood by Automated count 25 % [facility] Monocytes/100 leukocytes in Blood by Automated count 8 % [facility] Eosinophils/100 leukocytes in Blood by Automated count 3 % [facility] Basophils/100 leukocytes in Blood by Automated count 1 % [facility] Neutrophils [#/volume] in Blood by Automated count 5.26 10*3/uL 1.8-7 .0 [facility] Lymphocytes [#/volume] in Blood by Automated count 2.10 10*3/uL 1.2-4 .0 [facility] Monocytes [#/volume] in Blood by Automated count 0.67 10*3/uL 0-0.8 [facility] Eosinophils [#/volume] in Blood by Automated count 0.27 10*3/uL 0-0.5 [facility] Basophils [#/volume] in Blood by Automated count 0.06 10*3/uL 0-0.2 [facility] Nucleated erythrocytes/100 leukocytes [Ratio] in Blood by Automated count 0 /100{WBCs} 0-0 [facility] ID Date Data Source [id number] 12/08/2020 05:37:58 AM [facility] Name Value Range Interpretation Code Description Data Catrachita rce(s) Supporting Document(s) Bicarbonate [Moles/volume] in Serum 24 mmol/L 22-29 [facility] Chloride [Moles/volume] in Serum or Plasma 105 mmol/L 98-107 [facility] Creatinine [Mass/volume] in Serum or Plasma 0.85 mg/dL 0.50-0.90 [facility] Glucose [Mass/volume] in Serum or Plasma 92 mg/dL 70-140 [facility] Potassium [Moles/volume] in Serum or Plasma 3.9 mmol/L 3.4-5.1 [facility] Sodium [Moles/volume] in Serum or Plasma 139 mmol/L 136-145 [facility] Urea nitrogen [Mass/volume] in Serum or Plasma 14 mg/dL 6-20 [facility] Anion gap 3 in Serum or Plasma 10 mmol/L 8-15 [facility] Osmolality of Serum or Plasma by calculation 287 mosm/kg 275-300 [facility] Creatinine/Urea nitrogen [Mass Ratio] in Serum or Plasma 17 [facility] Calcium [Mass/volume] in Serum or Plasma 8.5 mg/dL 8.6-10.0 L [facility] Glomerular filtration rate/1.73 sq M pre dicted among non-blacks [Volume Rate/Area] in Serum or Plasma by Creatinine-based formula (MDRD) 88 mL/min/1.73m2 >60 [facility] Glomerular filtration rate/1.73 sq M pre dicted among blacks [Volume Rate/Area] in Serum or Plasma by Creatinine-based formula (MDRD) >60 [facility] ID Date Data Source [id number] 12/08/2020 05:37:58 AM [facility] Name Value Range Interpretation Code Description Data Catrachita rce(s) Supporting Document(s) Magnesium [Mass/volume] in Serum or Plasma 1.8 mg/dL 1.6-2.6 [facility] ID Date Data Source [id number] 12/08/2020 05:37:58 AM EDT [facility] Name Value Range Interpretation Code Description Data Catrachita e(s) Supporting Document(s) Phosphate [Mass/volume] in Serum or Plasma 3.9 mg/dL 2.5-4.5 [facility] ID Date Data Source [id number] 12/08/2020 06:18:32 PM EDT [facility] Name Value Range Interpretation Code Description Data Catrachita rce(s) Supporting Document(s) Hepatitis C virus Ab [Presence] in Serum or Plasma by Immuno assay Non Reactive [facility] No serological evidence of active infect ion. If recent exposure is suspected, test for HCV RNA. ID Date Data Source [id number] 12/13/2020 06:06:09 PM T [facility] Name Value Range Interpretation Code Description Data Catrachita e(s) Supporting Document(s) C2 Tactical Analysis Technician review of results [facility] (NOTE)No informative autoantibodies were detected in this evaluation. However, a negative result does not exclude autoimmune encephalopathy, idiopathic or paraneoplastic. Sensitivity and specificity of antibody testing are enhanced by testing both serum and CSF. AMPA-R Ab CBA, S Negative [facility] (NOTE) ADDITIONAL INFO RMATION This test was developed and its performance characteristics determined by [facility] in a manner consistent with CLIA requirements. This test has not been cleared or approved by the U.S. Food and Drug Administration. Amphiphysin Ab [Titer] in Serum <1:240 [facility] (NOTE) ADDITIONAL INFO RMATION This test was developed and its performance characteristics determined by [facility] in a manner consistent with CLIA requirements. This test has not been cleared or approved by the [place].S. Food and Drug Administration. Glial nuclear type 1 Ab [Titer] in Serum <1:240 [facility] (NOTE) ADDITIONAL INFO RMATION This test was developed and its performance characteristics determined by [facility] in a manner consistent with CLIA requirements. This test has not been cleared or approved by the [place].S. Food and Drug Administration. Neuronal nuclear type 1 Ab [Titer] in Serum <1:240 [facility] Annotation comment [Interpretation] [facility] (NOTE) ADDITIONAL INFO RMATION This test was developed and its performance characteristics determined by [facility] in a manner consistent with CLIA requirements. This test has not been cleared or approved by the [place].S. Food and Drug Administration. Neuronal nuclear type 2 Ab [Titer] in Serum by Immunofluorescence <1:240 [facility] (NOTE) ADDITIONAL INFO RMATION This test was developed and its performance characteristics determined by [facility] in a manner consistent with CLIA requirements. This test has not been cleared or approved by the [place].S. Food and Drug Administration. Neuronal nuclear type 3 Ab [Titer] in Serum <1:240 [facility] (NOTE) ADDITIONAL INFO RMATION This test was developed and its performance characteristics determined by [facility] in a manner consistent with CLIA requirements. This test has not been cleared or approved by the [place].S. Food and Drug Administration. CASPR2-IgG CBA, S Negative [facility] (NOTE) ADDITIONAL INFO RMATION This test was developed and its performance characteristics determined by [facility] in a manner consistent with CLIA requirements. This test has not been cleared or approved by the [place].S. Food and Drug Administration. CV2 IgG Ab [Titer] in Serum <1:240 [facility] (NOTE) ADDITIONAL INFO RMATION This test was developed and its performance characteristics determined by [facility] in a manner consistent with CLIA requirements. This test has not been cleared or approved by the [place].S. Food and Drug Administration. Dipeptidyl aminopeptidase-like protein 6 IgG Ab [Presence] in Serum or Plasma by Immunofluorescence Negative [facility] (NOTE) ADDITIONAL INFO RMATION This test was developed and its performance characteristics determined by [facility] in a manner consistent with CLIA requirements. This test has not been cleared or approved by the [place].S. Food and Drug Administration. GABABR IgG Ab [Presence] in Serum or Plasma by Immunofluorescence [facility] (NOTE) ADDITIONAL INFO RMATION This test was developed and its performance characteristics determined by [facility] in a manner consistent with CLIA requirements. This test has not been cleared or approved by the U.S. Food and Drug Administration. Glutamate decarboxylase 65 IgG+IgM Ab [Moles/volume] i n Serum by ImmunoassayV 0.00 nmol/L <= 0.02 [facility] (NOTE) ADDITIONAL INFO RMATION This test was developed and its performance characteristics determined by [facility] in a manner consistent with CLIA requirements. This test has not been cleared or approved by the U.S. Food and Drug Administration. GFAP IFA, S Negative [facility] (NOTE) ADDITIONAL INFO RMATION This test was developed and its performance characteristics determined by [facility] in a manner consistent with CLIA requirements. This test has not been cleared or approved by the U.S. Food and Drug Administration. IgLON5 IFA, S [facility] (NOTE) ADDITIONAL INFO RMATION This test was developed and its performance characteristics determined by [facility] in a manner consistent with CLIA requirements. This test has not been cleared or approved by the U.S. Food and Drug Administration. LGI1-IgG CBA, S [facility] (NOTE) ADDITIONAL INFO RMATION This test was developed and its performance characteristics determined by [facility] in a manner consistent with CLIA requirements. This test has not been cleared or approved by the U.S. Food and Drug Administration. mGluR1 Ab IFA, S [facility] (NOTE) ADDITIONAL INFO RMATION This test was developed and its performance characteristics determined by [facility] in a manner consistent with CLIA requirements. This test has not been cleared or approved by the U.S. Food and Drug Administration. NIF IFA, S [facility] (NOTE) ADDITIONAL INFO RMATION This test was developed and its performance characteristics determined by [facility] in a manner consistent with CLIA requirements. This test has not been cleared or approved by the U.S. Food and Drug Administration. NMDA-R Ab CBA, S [facility] (NOTE) ADDITIONAL INFO RMATION This test was developed and its performance characteristics determined by [facility] in a manner consistent with CLIA requirements. This test has not been cleared or approved by the U.S. Food and Drug Administration. Purkinje cells type 1 Ab [Titer] in Serum <1:240 [facility] (NOTE) ADDITIONAL INFO RMATION This test was developed and its performance characteristics determined by [facility] in a manner consistent with CLIA requirements. This test has not been cleared or approved by the U.S. Food and Drug Administration. Purkinje cells type 2 Ab [Titer] in Serum <1:240 [facility] (NOTE) ADDITIONAL INFO RMATION This test was developed and its performance characteristics determined by [facility] in a manner consistent with CLIA requirements. This test has not been cleared or approved by the U.S. Food and Drug Administration. Purkinje cells type Tr Ab [Titer] in Serum by Immunofluorescence <1:240 [facility] (NOTE) ADDITIONAL INFO RMATION This test was developed and its performance characteristics determined by [facility] in a manner consistent with CLIA requirements. This test has not been cleared or approved by the U.S. Food and Drug Administration.Test Performed by:[address] [id number] Director: Damien Hoff M.D. Ph.D.; CLIA# [id number] ID Date Data Source [id number] 12/07/2020 06:17:17 PM [facility] Value Range Interpretation Code Description Data Catrachita rce(s) Supporting Document(s) Glucose [Mass/volume] in Cerebral spinal fluid 67 mg/dL 40-70 [facility] ID Date Data Source [id number] 12/07/2020 06:17:17 PM [facility] Value Range Interpretation Code Description Data Catrachita rce(s) Supporting Document(s) Protein [Mass/volume] in Cerebral spinal fluid 37 mg/dl 15-45 [facility] ID Date Data Source [id number] 12/07/2020 07:16:50 PM [facility] Name Value Range Interpretation Code Description Data Catrachita rce(s) Supporting Document(s) Color of Cerebral spinal fluid [facility] Clarity of Cerebral spinal fluid [facility] Erythrocytes [#/volume] in Cerebral spinal fluid by Manual count 5 /u L <2 H [facility] Nucleated cells [#/volume] in Cerebral spinal fluid by Manual count <5 [facility] Microscopic observation [Identifier] in Cerebral spinal fluid [facility] Cell count and Differential panel - Cerebral spinal fluid [facility] ID Date Data Source [id number] 12/12/2020 04:07:52 PM [facility] Name Value Range Interpretation Code Description Data Catrachita rce(s) Supporting Document(s) Protein fractions.oligoclonal bands.intrathecal [Presence] in Se rum and CSF [facility] (NOTE)Zero (0) oligoclonal bands were ob served in the CSF.Interpretation:Criteria for Positivity: Four (4) or more oligoclonal bandsobserved only in the CSF have been shown to be most consistent withMS using our method. [Marlon , Duane EL, Otoniel BG, Hawa JA: Cerebrospinal Fluid Oligoclonal Bands in theDiagnosis of Multiple Sclerosis. Am J Clin Pathol 120(5):672-675,2003].Oligoclonal bands that are present only in the CSF have beenassociated with a variety of inflammatory brain diseases such asmultiple sclerosis (MS), subacute encephalitis, neurosyphilis,etc. Increased IgG in the CSF is not specific for MS, but is anindication of chronic neural inflammation. Clinical correlationindicated.Approximately 2-3% of clinically confirmed MS patients show littleor no evidence of oligoclonal bands in the CSF; howeveroligoclonal bands may develop as the disease progresses.Oligoclonal Banding testing performed using Isoelectric Focusing(IEF) and immunoblotting methodology.Performed At: [address] [id number] Alvarez MD Ph:[phone] ID Date Data Source [id number] 12/13/2020 10:04:07 AM [facility] Name Value Range Interpretation Code Description Data Catrachita rce(s) Supporting Document(s) C2 Tactical Analysis Technician review of results [facility] (NOTE)No informative autoantibodies were detected in this evaluation. However, a negative result does not exclude autoimmune encephalopathy, idiopathic or paraneoplastic. Sensitivity and specificity of antibody testing are enhanced by testing both serum and CSF. AMPA-R Ab CBA, CSF Negative [facility] (NOTE) ADDITIONAL INFO RMATION This test was developed and its performance characteristics determined by [facility] in a manner consistent with CLIA requirements. This test has not been cleared or approved by the U.S. Food and Drug Administration. Amphiphysin Ab [Titer] in Cerebral spinal fluid by Immunofluorescen ce <1:2 [facility] (NOTE) ADDITIONAL INFO RMATION This test was developed and its performance characteristics determined by [facility] in a manner consistent with CLIA requirements. This test has not been cleared or approved by the U.S. Food and Drug Administration. Glial nuclear type 1 Ab [Titer] in Cerebral spinal fluid < 1:2 [facility] (NOTE) ADDITIONAL INFO RMATION This test was developed and its performance characteristics determined by [facility] in a manner consistent with CLIA requirements. This test has not been cleared or approved by the U.S. Food and Drug Administration. Neuronal nuclear type 1 Ab [Titer] in Ce rebral spinal fluid by Immunofluorescence <1:2 [facility] Annotation comment [Interpretation] [facility] (NOTE) ADDITIONAL INFO RMATION This test was developed and its performance characteristics determined by [facility] in a manner consistent with CLIA requirements. This test has not been cleared or approved by the U.S. Food and Drug Administration. Neuronal nuclear type 2 Ab [Titer] in Ce rebral spinal fluid by Immunofluorescence <1:2 [facility] (NOTE) ADDITIONAL INFO RMATION This test was developed and its performance characteristics determined by [facility] in a manner consistent with CLIA requirements. This test has not been cleared or approved by the U.S. Food and Drug Administration. Neuronal nuclear type 3 Ab [Titer] in Cerebral spinal fluid <1:2 [facility] (NOTE) ADDITIONAL INFO RMATION This test was developed and its performance characteristics determined by [facility] in a manner consistent with CLIA requirements. This test has not been cleared or approved by the U.S. Food and Drug Administration. CASPR2-IgG CBA, CSF Negative [facility] (NOTE) ADDITIONAL INFO RMATION This test was developed and its performance characteristics determined by [facility] in a manner consistent with CLIA requirements. This test has not been cleared or approved by the U.S. Food and Drug Administration. CV2 IgG Ab [Titer] in Cerebral spinal fluid <1:2 [facility] (NOTE) ADDITIONAL INFO RMATION This test was developed and its performance characteristics determined by [facility] in a manner consistent with CLIA requirements. This test has not been cleared or approved by the U.S. Food and Drug Administration. Dipeptidyl aminopeptidase-like protein 6 IgG Ab [Presence] in Cerebral spinal fluid by Immunofluorescence Negative [facility] (NOTE) ADDITIONAL INFO RMATION This test was developed and its performance characteristics determined by [facility] in a manner consistent with CLIA requirements. This test has not been cleared or approved by the U.S. Food and Drug Administration. GABABR IgG Ab [Presence] in Cerebral spinal fluid by Immunof luorescence Negative [facility] (NOTE) ADDITIONAL INFO RMATION This test was developed and its performance characteristics determined by [facility] in a manner consistent with CLIA requirements. This test has not been cleared or approved by the U.S. Food and Drug Administration. Glutamate decarboxylase 65 Ab [Moles/volume] in Cerebr al spinal fluid 0.00 nmol/L <= 0.02 [facility] (NOTE) ADDITIONAL INFO RMATION This test was developed and its performance characteristics determined by [facility] in a manner consistent with CLIA requirements. This test has not been cleared or approved by the U.S. Food and Drug Administration. GFAP IFA, CSF Negative [facility] (NOTE) ADDITIONAL INFO RMATION This test was developed and its performance characteristics determined by [facility] in a manner consistent with CLIA requirements. This test has not been cleared or approved by the U.S. Food and Drug Administration. IgLON5 IFA, CSF Negative [facility] (NOTE) ADDITIONAL INFO RMATION This test was developed and its performance characteristics determined by [facility] in a manner consistent with CLIA requirements. This test has not been cleared or approved by the U.S. Food and Drug Administration. LGI1-IgG CBA, CSF Negative [facility] (NOTE) ADDITIONAL INFO RMATION This test was developed and its performance characteristics determined by [facility] in a manner consistent with CLIA requirements. This test has not been cleared or approved by the U.S. Food and Drug Administration. mGluR1 Ab IFA, CSF Negative [facility] (NOTE) ADDITIONAL INFO RMATION This test was developed and its performance characteristics determined by [facility] in a manner consistent with CLIA requirements. This test has not been cleared or approved by the U.S. Food and Drug Administration. NIF IFA, CSF Negative [facility] (NOTE) ADDITIONAL INFO RMATION This test was developed and its performance characteristics determined by [facility] in a manner consistent with CLIA requirements. This test has not been cleared or approved by the U.S. Food and Drug Administration. NMDA-R Ab CBA, CSF Negative [facility] (NOTE) ADDITIONAL INFO RMATION This test was developed and its performance characteristics determined by [facility] in a manner consistent with CLIA requirements. This test has not been cleared or approved by the U.S. Food and Drug Administration. Purkinje cells type Tr Ab [Titer] in Cer ebral spinal fluid by Immunofluorescence <1:2 [facility] (NOTE) ADDITIONAL INFO RMATION This test was developed and its performance characteristics determined by [facility] in a manner consistent with CLIA requirements. This test has not been cleared or approved by the U.S. Food and Drug Administration. Purkinje cells type 1 Ab [Titer] in Cerebral spinal fluid <1:2 [facility] (NOTE) ADDITIONAL INFO RMATION This test was developed and its performance characteristics determined by [facility] in a manner consistent with CLIA requirements. This test has not been cleared or approved by the U.S. Food and Drug Administration. Purkinje cells type 2 Ab [Titer] in Cerebral spinal fluid <1:2 [facility] (NOTE) ADDITIONAL INFO RMATION This test was developed and its performance characteristics determined by [facility] in a manner consistent with CLIA requirements. This test has not been cleared or approved by the U.S. Food and Drug Administration.Test Performed by:[address] [id number] Director: Damien Hoff M.D. Ph.D.; CLIA# [id number] ID Date Data Source [id number] 12/12/2020 02:15:16 PM EDT [facility] Cmnt XXX-Imp : NoneGram Stn XXX : 1+WBC'S Seen.No organisms seenSpecimen concentrated prior to staining.Microorganism XXX Cult : No growth 5 days Name Value Range Interpretation Code Description Data [facility] rce(s) Supporting Document(s) ID Date Data Source [id number] 12/07/2020 07:59:59 PM EDT [facility] Cmnt XXX-Imp : NoneCSF Panel : P CR ResultsAssay Note : Non-K1 E. coli serotypes and non-encapsulated strains of Neisseria meningitidis are not detected by this panel.E coli K1 DNA CSF Ql Non-probe PCR : Not DetectedHaem influ DNA CSF Ql Non-probe PCR : Not DetectedL monocytog DNA CSF Ql Non-probe PCR : Not DetectedN men DNA CSF Ql Non-probe PCR : Not DetectedGp B Strep DNA CSF Ql Non-probe PCR : Not DetectedS pneum DNA CSF Ql Non-probe PCR : Not DetectedCMV DNA CSF Ql Non-probe PCR : Not DetectedEV RNA CSF Ql Non-probe PCR : Not DetectedHSV1 DNA CSF Ql Non-probe PCR : Not DetectedHSV2 DNA CSF Ql Non- probe PCR : Not DetectedHHV6 DNA CSF Ql Non-probe PCR : Not DetectedHPeV RNA CSF Ql Non-probe PCR : Not DetectedVZV DNA CSF Ql Non-probe PCR : Not DetectedC gattii+neofor DNA CSF Ql Non-probe PCR : Not Detected Name Value Range Interpretation Code Description Data Catrachita rce(s) Supporting Document(s) ID Date Data Source [id number] 12/07/2020 02:22:03 PM T [facility] Name Value Range Interpretation Code Description Data Catrachita rce(s) Supporting Document(s) [facility] XFQJBy8vApCTVzBs66/PXDrsEWWbu0PtGYvlRYb3IUczMJWiU7ZnZZV5pS2hWAZ7ZSbGAgFaOjJvFvB1 lbm [file] AgICAgICAgICAgICAgICAgICAgICAgICAgICAgICAg ICAgICAgICAgICAgICAgICAgICAgICAgICAgICAgICAgICAgICAgICAgICAgICAgICAgICAgICAgICAg ICAgDQogICAgICAgICAgICAgICAgICAgICAgICAgICAgICAgICAgICAgICAgICAgICAgICAgICAgICAg ICAgICAgICAgICAgICAgICAgICAgICAgICAgICAgIC AgICAgICAgICAgICAgDQogICAgICAgICAgICAgICAgICAgICAgICAgICAgICAgICAgICAgICAgICAgIC AgICAgICAgICAgICAgICAgICAgICAgICAgICAgICAgICAgICAgICAgICAgICAgICAgICAgICAgDQogIC AgICAgICAgICAgICAgICAgICAgICAgICAgICAgICAg ICAgICAgICAgICAgICAgICAgICAgICAgICAgICAgICAgICAgICAgICAgICAgICAgICAgICAgICAgICAg ICAgICAgDQogICAgICAgICAgICAgICAgICAgICAgICAgICAgICAgICAgICAgICAgICAgICAgICAgICAg ICAgICAgICAgICAgICAgICAgICAgICAgICAgICAgIC AgICAgICAgICAgICAgICAgDQogICAgICAgICAgICAgICAgICAgICAgICAgICAgICAgICAgICAgICAgIC AgICAgICAgICAgICAgICAgICAgICAgICAgICAgICAgICAgICAgICAgICAgICAgICAgICAgICAgICAgDQ ogICAgICAgICAgICAgICAgICAgICAgICAgICAgICAg ICAgICAgICAgICAgICAgICAgICAgICAgICAgICAgICAgICAgICAgICAgICAgICAgICAgICAgICAgICAg ICAgICAgICAgDQogICAgICAgICAgICAgICAgICAgICAgICAgICAgICAgICAgICAgICAgICAgICAgICAg ICAgICAgICAgICAgICAgICAgICAgICAgICAgICAgIC AgICAgICAgICAgICAgICAgICAgDQogICAgICAgICAgICAgICAgICAgICAgICAgICAgICAgICAgICAgIC AgICAgICAgICAgICAgICAgICAgICAgICAgICAgICAgICAgICAgICAgICAgICAgICAgICAgICAgICAgIC AgDQogICAgICAgICAgICAgICAgICAgICAgICAgICAg ICAgICAgICAgICAgICAgICAgICAgICAgICAgICAgICAgICAgICAgICAgICAgICAgICAgICAgICAgICAg XAMeEHPpAAQcAZTdRPf8W5iqAKYuQBGeLE0lFDe6Un4+LHaAZdPnMFU6muDxmU9QZL4tr0VgXHerLOXd g0OdDIt4ON5RHDOdLAzrSZ5FWTptup1LNGOiVWRdjU RXp6vyBmEtJGC9KJNlTnzjLS9HKIKqQ5bxycWmVUOgUIDESNjjDYKECR6YUyEdB9FbdV85LFHLYa8+DQ urfaKsKbfTXhU1PTSld0VlSJa4DM4GKZYsQjpvx0QeYVnjGTGAGQahFB6YOMK0HAT7ZEXgHr0YQFInQ0 55opYaTX5MSh2IAmQeLY3tyw0WXIdpHTJcRoiQSrl7 WCpmJN5NrDPzQHeBq67ttCv5wrNnsVHWAE7wHGerSXKREEVfqy8yC9HcEDjRP0udQKAnOq4bJq1dOCAw JAQcWwU3YRSFLC3VNJGkKOZtxKEiVXFuEPVYPX0YXPpeRXF6WHYbciVwsSFhZYnlUL4NBNFcxgGaVNVh MCBSDQo+Et4WNI6vn2OuCYruWWVgOV5vxw5WPBgGAf AcC6F8aCYiW3J0MTvyFg2BFZQkZDYtUCEoYXTDMDlmZS6JMO2parM5QM2WxZWjSOLcSNPxxNUwRIo2V9 0gcVByLKsoEW0HPLZ+Sharon+Yu7NIODbTTSeYECoSdBvRRJMKsRpX2PoK8ULs0YxV3XjRN03jMpoktXeRJ uiTT1YRH3qWMLoANZWWH6JcMUssA0gusIbAbDjZWXD HpXwS70gqNSmNJJrOOP4KPIdLn6TLIMcL3ApwfGddIvycmPzYNFiWVRAEI6KIOmyirUunHTyeFpmIO20 aQbtNE8XQn3LLqQyVB5hrc8DgTUnAs1XXNBoRQ4FKNNjKBVaQSEzIDT9LHByOvHcNOiqQHMrLRHnVHO2 CLPgPAXcDS7XBoQhFMYsITvcRFFzXVXfXXUdof7OYF IqXGCyLHrjWoDnZGSuVGWrULhvJCWyKAEpAYZ7JELuEFQjNM4SYdPkWEVyWUE6ZKGgNQTrSEEkfm1HRT SuGHLaJpoqTSKiTYSpHSUjWFspNDDaQKX7CeT4HRZoGNRaVS5AYwCiCVOdQVV0OcKnQIAcTIJaen0PCP IyRHFaUGXoOeXeNRIcRXSqMHtrZAMrIBQ5RqN0YYKr UUIcAW5JMmZuMXWqJCL0ISnuBYSlBPZxlu3HDSVvXFPqBbo5WMGmOPPkBXDzURqhIXXzITT4BVbhOMWw PDEhAR3JQdBpVRRdBUldKRrhJPDcNXVmik8GWFVlMQGsQaM7LmDaCPDlIEJiPTchZUCbSPI2XKQ3RXWo CZVdOH2TOtNyZVCdMKsuIkmnNIFsQNKpuw1PCPTbUB WfQDXbXdBkSLZtKUBwHFo8gaMbuEUvILr8SE7WP7LckxQaIKjHWl6Xb581MMX3PNNkPs2GF1sdKc1iCD RbTPJUFa3SPRo1ElU4YxVnJUd3GWPlTUUgCOZ0GKNoAbTnItQgTTTjFTn+BYe6QJsmOhKjGue8FKZfCR DxZTS6BXOvGDY6RQQnZYB7RU4sBFNYZs8+XWzsdGKfhRsfWGUUDum8GuYMQpCsXK1PNJu= ID Date Data Source [id number] 12/07/2020 11:20:40 AM EDT [facility] Name Value Range Interpretation Code Description Data Catrachita rce(s) Supporting Document(s) ED Provider Note [facility] VVSNIp9xAxJYRhUs39/SXXpgEGZad9ZwQMwaNAj9CJlzMCAyX5IuEVP3rM6nOHB6AMpKBeKbNrRiYoV2 lbm [file] CATERING ASSISTANT/6lClDblSXDyvPAHKPHs0lWBpbSmwf4Je8xYkmzh5WtjamowYVPWiW4Q8qRIFwGwFeCV9iiXNDrIGW [file] F4RHPhDrAfTgj6XfD6STGpCsz+KK7vQDn+Oz7Xe3GvckH7yuCiUWu1Klx3FD0UOMNYC8YXJq== ID Date Data Source [id number] 12/07/2020 05:50:18 AM EDT [facility] Name Value Range Interpretation Code Description Data Catrachita rce(s) Supporting Document(s) Leukocytes [#/volume] in Blood by Automated count 7.9 10*3/uL 4-10 [facility] Erythrocytes [#/volume] in Blood by Automated count 4.46 10*6/uL 4.1- 5.3 [facility] Hemoglobin [Mass/volume] in Blood 12.9 g/dL 11.5-15.5 [facility] Hematocrit [Volume Fraction] of Blood by Automated count 40.6 % 3 6-45 [facility] Erythrocyte mean corpuscular volume [Entitic volume] by Auto mated count 91.1 fL 80-96 [facility] Erythrocyte mean corpuscular hemoglobin [Entitic mass] by Automated count 28.9 pg 27-33 [facility] Erythrocyte mean corpuscular hemoglobin concentration [Mass/volume] by Automated count 31.7 g/dL 32.0-[facility] width [Ratio] by Automated count 14.8 % 11.5-14.5 H [facility] Platelets [#/volume] in Blood by Automated count 284 10*3/uL 150-400 [facility] Differential cell count method - Blood [facility] Neutrophils/100 leukocytes in Blood by Automated count 57 % [facility] Lymphocytes/100 leukocytes in Blood by Automated count 30 % [facility] Monocytes/100 leukocytes in Blood by Automated count 9 % [facility] Eosinophils/100 leukocytes in Blood by Automated count 3 % [facility] Basophils/100 leukocytes in Blood by Automated count 1 % [facility] Neutrophils [#/volume] in Blood by Automated count 4.51 10*3/uL 1.8-7 .0 [facility] Lymphocytes [#/volume] in Blood by Automated count 2.35 10*3/uL 1.2-4 .0 [facility] Monocytes [#/volume] in Blood by Automated count 0.74 10*3/uL 0-0.8 [facility] Eosinophils [#/volume] in Blood by Automated count 0.23 10*3/uL 0-0.5 [facility] Basophils [#/volume] in Blood by Automated count 0.06 10*3/uL 0-0.2 [facility] Nucleated erythrocytes/100 leukocytes [Ratio] in Blood by Automated count 0 /100{WBCs} 0-0 [facility] ID Date Data Source [id number] 12/07/2020 06:02:53 AM EDT [facility] Name Value Range Interpretation Code Description Data Catrachita rce(s) Supporting Document(s) aPTT in Platelet poor plasma by Coagulation assay 31.2 s 24.0-33. 0 [facility] ID Date Data Source [id number] 12/07/2020 06:02:53 AM EDT [facility] Name Value Range Interpretation Code Description Data Catrachita rce(s) Supporting Document(s) Prothrombin time (PT) 13.5 s 11.6-14.0 [facility] INR in Platelet poor plasma by Coagulation assay 1.07 [facility] Routine intensity oral anticoagulation I NR is typically 2.0-3.0. Target INR must be clinically individualized. ID Date Data Source [id number] 12/07/2020 06:18:08 AM [facility] Name Value Range Interpretation Code Description Data Catrachita rce(s) Supporting Document(s) Magnesium [Mass/volume] in Serum or Plasma 1.8 mg/dL 1.6-2.6 [facility] ID Date Data Source [id number] 12/07/2020 06:18:08 AM [facility] Value Range Interpretation Code Description Data Catrachita rce(s) Supporting Document(s) Phosphate [Mass/volume] in Serum or Plasma 3.8 mg/dL 2.5-4.5 [facility] ID Date Data Source [id number] 12/07/2020 06:18:08 AM [facility] Value Range Interpretation Code Description Data Catrachita rce(s) Supporting Document(s) Bicarbonate [Moles/volume] in Serum 21 mmol/L 22-29 L [facility] Chloride [Moles/volume] in Serum or Plasma 108 mmol/L 98-107 H [facility] Creatinine [Mass/volume] in Serum or Plasma 0.90 mg/dL 0.50-0.90 [facility] Glucose [Mass/volume] in Serum or Plasma 96 mg/dL 70-140 [facility] Potassium [Moles/volume] in Serum or Plasma 4.0 mmol/L 3.4-5.1 [facility] Sodium [Moles/volume] in Serum or Plasma 140 mmol/L 136-145 [facility] Urea nitrogen [Mass/volume] in Serum or Plasma 15 mg/dL 6-20 [facility] Anion gap 3 in Serum or Plasma 11 mmol/L 8-15 [facility] Osmolality of Serum or Plasma by calculation 291 mosm/kg 275-300 [facility] Creatinine/Urea nitrogen [Mass Ratio] in Serum or Plasma 16 [facility] Calcium [Mass/volume] in Serum or Plasma 8.7 mg/dL 8.6-10.0 [facility] Glomerular filtration rate/1.73 sq M pre dicted among non-blacks [Volume Rate/Area] in Serum or Plasma by Creatinine-based formula (MDRD) 82 mL/min/1.73m2 >60 [facility] Glomerular filtration rate/1.73 sq M pre dicted among blacks [Volume Rate/Area] in Serum or Plasma by Creatinine-based formula (MDRD) >60 [facility] ID Date Data Source [id number] 12/06/2020 12:09:04 PM EDT [facility] Name Value Range Interpretation Code Description Data Catrachita rce(s) Supporting Document(s) Consultation [facility] TXWCSd5pPkYMKaPb75/RNLejDPKoq6MzWKejQNm8TCehEPFbR8YpRUO5uI5fNTX4SNgQTkPvDgIfLcR0 lbm [file] ZdGKPuQnO7UcNcQLVlMAxrFqmqCbw0KlK+SB5dBIr+Fw8Ul7RcdrU9dlJmOTk1YgGtKOmrFRWQMn7P ID Date Data Source [id number] 12/06/2020 08:59:41 AM EDT [facility] MR BRAIN WITH AND WITHOUT CONTRAST [id number] FINAL RESULTInterpreted by:MELY Bruno HEAD WITH AND WITHOUT IV CONTRASTClinical indication: Evaluate for encephalitis.TECHNIQUE;Brain was imaged in sagittal, coronal, and axial planes with multiple sequences with and without administration of IV contrast.FINDINGS;There is no significant diffusion restricted diffusionThe ventricular system is age appropriate in size, shape, and configuration. The ventricles are midline.The cortical sulci is age appropriate in size, shape, and configuration. The basal cisterns are patent.There is no midline shift or mass effect. Normal flow-voids are seen bilaterally.A few nonspecific punctate foci of high signal intensity visualized on T2 and FLAIR sequences within the white matter at the level of lofton radiata bilaterally. Gomez and white matter differentiation is preserved. No abnormal hemosiderin deposition. No significant congenital anomaly.There is no focal area of abnormal post contrast increased signal intensity. No AVM or aneurysm.The visualized brain stem is unremarkable. The visualized posterior fossa structures are unremarkable. The sella, hypophysis, and corpus callosum are unremarkable with normal posterior pituitary T1 bright spot.The internal auditory canals are symmetric and unremarkable.The cerebellopontine angle is unremarkable bilaterally. Visualized paranasal sinuses including the mastoid air cells show mild mucosal thickening in the right mastoid air cells.IMPRESSION:1. No acute intracranial pathology.2. Minimal chronic microvascular ischemic changes of the white matter.3. Mild right ma stoiditis.This document has been electronically signed by Butch Valenzuela MD on 12/06/2020 8:57 AM Name Value Range Interpretation Code Description Data [facility](s) Supporting Document(s) ID Date Data Source [id number] 12/06/2020 06:19:13 AM [facility] Name Value Range Interpretation Code Description Data [facility](s) Supporting Document(s) Leukocytes [#/volume] in Blood by Automated count 7.2 10*3/uL 4-10 [facility] Erythrocytes [#/volume] in Blood by Automated count 4.36 10*6/uL 4.1- 5.3 [facility] Hemoglobin [Mass/volume] in Blood 12.7 g/dL 11.5-15.5 [facility] Hematocrit [Volume Fraction] of Blood by Automated count 39.4 % 3 6-45 [facility] Erythrocyte mean corpuscular volume [Entitic volume] by Auto mated count 90.5 fL 80-96 [facility] Erythrocyte mean corpuscular hemoglobin [Entitic mass] by Automated count 29.2 pg 27-33 [facility] Erythrocyte mean corpuscular hemoglobin concentration [Mass/volume] by Automated count 32.3 g/dL 32.0-36.[facility] [Ratio] by Automated count 14.7 % 11.5-14.5 H [facility] Platelets [#/volume] in Blood by Automated count 271 10*3/uL 150-400 [facility] Differential cell count method - Blood [facility] Neutrophils/100 leukocytes in Blood by Automated count 59 % [facility] Lymphocytes/100 leukocytes in Blood by Automated count 28 % [facility] Monocytes/100 leukocytes in Blood by Automated count 9 % [facility] Eosinophils/100 leukocytes in Blood by Automated count 3 % [facility] Basophils/100 leukocytes in Blood by Automated count 1 % [facility] Neutrophils [#/volume] in Blood by Automated count 4.32 10*3/uL 1.8-7 .0 [facility] Lymphocytes [#/volume] in Blood by Automated count 2.01 10*3/uL 1.2-4 .0 [facility] [facility] Monocytes [#/volume] in Blood by Automated count 0.64 10*3/uL 0-0.8 [facility] Eosinophils [#/volume] in Blood by Automated count 0.21 10*3/uL 0-0.5 [facility] Basophils [#/volume] in Blood by Automated count 0.07 10*3/uL 0-0.2 [facility] Nucleated erythrocytes/100 leukocytes [Ratio] in Blood by Automated count 0 /100{WBCs} 0-0 [facility] ID Date Data Source [id number] 12/06/2020 06:43:38 AM [facility] Name Value Range Interpretation Code Description Data Catrachita rce(s) Supporting Document(s) Bicarbonate [Moles/volume] in Serum 23 mmol/L 22-29 [facility] Chloride [Moles/volume] in Serum or Plasma 106 mmol/L 98-107 [facility] Creatinine [Mass/volume] in Serum or Plasma 0.92 mg/dL 0.50-0.90 [facility] Glucose [Mass/volume] in Serum or Plasma 102 mg/dL 70-140 [facility] Potassium [Moles/volume] in Serum or Plasma 3.9 mmol/L 3.4-5.1 [facility] Sodium [Moles/volume] in Serum or Plasma 138 mmol/L 136-145 [facility] Urea nitrogen [Mass/volume] in Serum or Plasma 16 mg/dL 6-20 [facility] Anion gap 3 in Serum or Plasma 10 mmol/L 8-15 [facility] Osmolality of Serum or Plasma by calculation 288 mosm/kg 275-300 [facility] Creatinine/Urea nitrogen [Mass Ratio] in Serum or Plasma 18 [facility] Calcium [Mass/volume] in Serum or Plasma 8.6 mg/dL 8.6-10.0 [facility] Glomerular filtration rate/1.73 sq M pre dicted among non-blacks [Volume Rate/Area] in Serum or Plasma by Creatinine-based formula (MDRD) 80 mL/min/1.73m2 >60 [facility] Glomerular filtration rate/1.73 sq M pre dicted among blacks [Volume Rate/Area] in Serum or Plasma by Creatinine-based formula (MDRD) >60 [facility] ID Date Data Source [id number] 12/06/2020 06:43:38 AM [facility] Name Value Range Interpretation Code Description Data Catrachita rce(s) Supporting Document(s) Phosphate [Mass/volume] in Serum or Plasma 3.7 mg/dL 2.5-4.5 [facility] ID Date Data Source [id number] 12/06/2020 06:43:38 AM EDT [facility] Value Range Interpretation Code Description Data Catrachita rce(s) Supporting Document(s) Magnesium [Mass/volume] in Serum or Plasma 1.8 mg/dL 1.6-2.6 [facility] ID Date Data Source [id number] 12/06/2020 06:43:38 AM EDT [facility] Value Range Interpretation Code Description Data Catrachita rce(s) Supporting Document(s) Thyrotropin [Units/volume] in Serum or Plasma 3.360 u[IU]/mL 0.270-4. 200 [facility] ID Date Data Source [id number] 12/05/2020 07:29:47 PM EDT [facility] Value Range Interpretation Code Description Data Catrachita rce(s) Supporting Document(s) [facility] YMGPNv8kRlYGXtRl23/PNTzqTPLyb6OlNDorNMm5FCttUUUkR4WfPKN6bS9eCVK1YFhXGcTpScVjRrS8 lbm [file] gbkzP/6v3pmRi/dwQt5lC+Petar/Zs6qZao/w0tHrCYZ5k21+PfUW5u+Hc/XdEPfmDuzI9/R7m54d/9+kY/ +IG5Mz/+EuDiks7bi5z6sLe+l/uzZs/CybkWGOeZI3 5o0hr6zKK6x2xsqUcU7u3zrxT5Qyi7Gu/C76Xbbw+IT5r5wsMC0fhOznddv71dyfBp4WQIji+Wmxv+rX w+/wV4ivdas42Jtvtvnvc10hn5x+VJ1m0rbgN0Aab34r/K5+Nfmh+FM3q9bkDJ1ktEqcxmo06wyvFo4W EXki+Wmxv+lMmF8AHSTrptW+b+K+S/csS8An/8 [file] GaoCYsLOalYXum0InE8XFXdEJkaMPLVTW98Pgpyc+CBbTVW9/Sales Operations Consultant+SOn6NEYMuxIA5p5CiM3k8kWKbLF [file] ICAgICAgICAgICAgICAgICAgICAgICAgICAgICAgIC FaGRBfBVPbVBItNEJrFAAhBCLiJQIlSHBaIDFeIWZyEAOvHLAhJSNeDFNuFLCpBOQnOGRfBHAnQV3EMT AgICAgICAgICAgICAgICAgICAgICAgICAgICAgICAgICAgICAgICAgICAgICAgICAgICAgICAgICAgIC AgICAgICAgICAgICAgICAgICAgICAgICAgICAgICAg SJVlPGSbRC0MWUGkUVWdPEXgWHWrKJYyPQLdIQCrYWUcSNPvGNJyKSLcARIoZRHoBJRuPZGuBYXlXJIz GZLkMAClYLYjEDSdELCnINCmQSGeQHLbMMLlUXVvJYTlIPKcIPFuOEOiLHKkFLNaVL8PORPfYMTrBNAv ICAgICAgICAgICAgICAgICAgICAgICAgICAgICAgIC AgICAgICAgICAgICAgICAgICAgICAgICAgICAgICAgICAgICAgICAgICAgICAgICAgICAgICAgICAgIA 0KICAgICAgICAgICAgICAgICAgICAgICAgICAgICAgICAgICAgICAgICAgICAgICAgICAgICAgICAgIC AgICAgICAgICAgICAgICAgICAgICAgICAgICAgICAg HXQzVHMnIGGbWZ3RELEjVCGcILXkMAHeBLDjBNEbXCSyBODlSWSmZBHfBIQzQXTzOQMtKDIrZOPhSBLs RHUkVVBzVEWgCFQnQWKaXULyZZXmCCChPJOrFWKcRXVgSEPvYLXdXCBtSCDmLEHlBESzDR2KWWMuZOTc ICAgICAgICAgICAgICAgICAgICAgICAgICAgICAgIC AgICAgICAgICAgICAgICAgICAgICAgICAgICAgICAgICAgICAgICAgICAgICAgICAgICAgICAgICAgIC FeSG4IUEMrHPPjLSVkMLRkAQFnWAVrYFMnECVeWJQyYONqJZEvKJNdZZMeELBqRIWcCJTuVAOeKNBuKS AgICAgICAgICAgICAgICAgICAgICAgICAgICAgICAg QJGxCSNuWHRsGMAxIF8NHQEnMLMkTBXtJGQkSHJjOFJtKADoKWWkPLGbEPThKWNkFFObTYHsLUEmMJFw GGPsOSEhQODyFHObXNGxOFUkZMEoBBRqLHHzZQJnYQLjIUKwKGFiZHMhKAKxWLAbAESqBLZqRV0IRJ17 lJDnl9B5SLLfPN6vylt/Oe2UNLauiqFdpNUiMK3DNu DwKN4tum1LRbRnPD0uvu2JUEzVYlKtO8L2lDKtUYTsYFJHLxEpA91oDKvaJx23OFnnTFNnUnVvRFy6Qm 3LNkKbZ4hyTGWjCwO6AUMeVrO6JVDdNpI4ENPeEdZjJEBeJLFxOMJuLDDRISJ7HTKoAwDiOGpzWO3Lb1 AyaES1KUf+Tq1WSW3zy8LpEMucCOXpAV4nxj1ETToJ EkJmC9KctvI8GJZ0WWWfRd4KRRMpCGIuhDBzHKHcDOQTGgCnK5XaoH83TNUBCx0+DQplbmRvYmoNCjM5 EIKqj9PmVKu2LJ9MGWJcJUy6dGPxH21cp7ViiINvAdnkF5WtxCAXXuVebPfgIWAIYiDRVQH8YSjfSXWc IlFsSDGoPvapSfBMVJnTNpLpV4Jes2OgIoL9QGAiEl PqFLwrOGGxMoA8LN09wXviRZ9ZQDUiPNIlCN67ETR1MHTcYr3SYj2YZeWpGZ6yim2GPIRaZLPiPayIHc d0QIozXD7PpZUbU0KpiQSjv2kRQzQpT5PCTQM6ENUiYc4CBNQpEtSoMRCrOKggEJ0fWTGvILTIyFvttv V1RE2PHG2ousUzPE9SPwRhBd3oYl1TLxSuZ6QaC9Id VBFbNLLYPQhxGJ7HFBfwOB7tKW8Xg6SRcDKqiE2ymq4SRCVkYCKzGtltmq3HMpntA5T1qCzrEULvWptp CVKCBFxpFM3BOLLaYJS0XZGhKyRqQWRYPsSkC54pBK5EO3Vjg77cZvP5WKDoItRgXHkrDH04oUnbefFb nIGmpEnzRC1ZJa8+DQplbmRvYmoNCnhyZWYNCjAgND ZISaYkVJJkZKMtVOQgWrX0DvBdWf9QCMXwAXBqGTKhNlSwMSKsPNSqYSomZENoUFO2Ovz1TVWaEMBjJH 1QKbRiKVWvBTIwHSGeWQZtOVEcnv9ZZLFeTAPtQXA1XrObMYNqJTXrRXvoLPChFYM9JwPzGPSrOISyMY 9YXrMwXIWdJPM0PokdYWSoPVMkmb8WHKFmRQVpIoSt XwIcECFjCQCzNRpxMLUkTQH1OwXyXJYjFOKtPF4WEsWlPQBbFWRfPFSpNTNbLKMbvv9ABLXxEQRmRKRq UDUgKVMoHQYsUFphJIXhRRV5SFW3SFQsXJSxQF4MOuZxBZJiZSS2KxHzCDTqLJWqas0PVBSjFSZxNyvi ARDfJFQjOYLkBCukJBFiRFS9KEBdHBGqKWSpMF2VOq SmMPQhLEyvJGmxURMwOOWjyu2EUSUvVCXgDDHqZmNkADJeJTAuNKihKIIdODHhVqxpGLKqDQFqTF9DXa TqNBRuFjJ9EAVfQVDsSVCiit9BBDHiIWQoSXZ6VyZzBZMdOVSvAXmzLOSzQZYdSmVjGQKdCIQyHU8ADp AxAKFkUqQ5OxQqHFOlMGLjwr0OQFNsGCCmCsLpKnEu IZOxBRSvDVhwUCTdWDYwYRozDUFjONUxEZ6NTbWjTEUyFtNpJzjkNMLlNHNhvz9FVUQwVCVlYlK5DfHs UJWlKOPlZRlkTIHbPFU7UrViNUVuITLnSO8KXbOpBURpPkA0PkDoSTNoSDSboe1OGIQiYNAsZXlmHGYw LCBvRVZrHNjlBHDkHJT5Hgz5ZRMhCXRcOK8XIlAkMA VbQcJ4TrghLQPvAKGewn6ZMRQqCEYvNgK5NOFcZHWjGAZkNQrmKUYrJBW8TFE3EMIwPRPeII1NNsHwGC IvVvr3QlJwUFZnWGBjbg6BVBIwNSRhAkp9NESdXKNzIBMxVIxiJYHyNTR6IyRsWYTdRKQdFI6QIbFiBR GgSkbpOcHaSASxCQLfzj6OIABcHTWlFOykZNYlGHJw QUFpGNjhEFUiFFAmZzo9VJSrQAOdGP8JKdGiPEZaFJUoKUtvDHQoUKPqgy9JLBAtPVZ5NNMhKGJuCDXc HBHlPFe5jtVjsNMkVNt7PM8WH0TvakHlORJZKw0Ey737EANtMYXnGz2AT8rvTi6hJPCfCAZBZa4HGDs5 JkEdKGKnJQR7OMVvJKvaCmStHTvcJBacXOC1FRXtIF Y+JFb0PaQ1OVL2XqsfKBH3OLRoBpM2YBFaNGD9BkaqVWHgHq7tQJQCPv3+DQpzdGFydHhyZWYNCjQwNz X5UGxuVYTJOh9B ID Date Data Source [id number] 12/05/2020 08:33:17 AM EDT [facility] Name Value Range Interpretation Code Description Data Catrachita rce(s) Supporting Document(s) [facility] VUZIKs3rWwOXYqTfl9SdIxDiYFXaOO6xckv5M3M0mKSxO0IymDFan2duX1ZkF5FyGSLmOQLMEY9NeDRs jb2 [file] [place]+Oq92JybVGo1MiR8nkYnZhV+v79eXf4ip3Jd2jfPMSsm9zrOjE7tl1DcUT3GuSd5S5WOphpN/pZ64 [file] L72PymNAECnL1ZyPyTthqE+BpKJuGU1OHYGWOVXIWT8XAJJCBSTFNG1RACPFCBXpH9YiJYQZIFKfL1N2 sbQkDJVOK887NJ6IF725SpnPQXDiEFLRMMRyufGWNITOdr1WrXk0phodgIe93A2U3VDN/cREPzHxvnM6 oZfiiyOQFPJFTsjUjJZvHCUrtMICVJXZpQdU4CJO/c NWFgYHQ8y1JrA9dRK/MdFPTPQTE/6TYO8a0X3D6COl/mC1TNZiFpM8rRonEtWXjHXdxu7M2PiU93JZxo CsQ8vDmT4RyaeG56dIshGrbNmIqgoZe4z3Jcc2Ub5V6dlhgH0IMI1Nh4IA6NLXv1Z6pSXibKHkfO0Bjz 1G2KBrrSqVlTRMMoAlUMNCQCQ8THiOe8VHPIZOiqfG 45mykyAIvOx69oVPi3Lf/cQ3+YJZrPkTchy5iW8MmmBEAXQkiqC2dUS7jqE+5mhi4u3O14qxJ+8GiSSR DSFFqi8ysF7U0GtXvz7meQKLWg1HZKUwKXVMHYJRfbST4lk2EMj0R+6gkofN9K20tG6X71W6CKOX843y rJlqDuf/1kzrPXH/c/WsH5fsA851ZS+tvXPA/i+QCb 49gNV+5kfPKt8eo6/hn/Wcxkao7TeH2++Rs0Ne2a+j+o4E7vlulkxicSGMEuc0UA/5tx3J21cEsmC9f2 PvHKy/O/0GwWueTyg8SL49m/1ql1AmDQa/mx/daXquK89ySCX5SrjiMm+1g/jcIp2iR69d2Nc7QxRziy Gpcr3otz9Ryp6QjiDgGUYgvj718o1xcrNIOx2Jebso +l5m0T0EKKE5gqO02fXE8HtF7ogI3AeTVEtJ9HdwUV2yrkLWtOFo2u+8K7xRvmAfA+F0vfKaVSC+YqGf GYihJkaBdHU0dcCzTNv7ApzfpDreaYQliLJquXbwdOA5BzPbMIpmtYuVhKEb0OaJiEaRSmBxqYXIiSKG zI1lcK+tOk+cXn/yxDtsnDzxDRJJIikkBeTkiV+events 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 [file] NISWWj4mTdRcXahkzxzRLzjpAAEiQCvHP/ltfKYx2Qtqgq3KpMj4uv/Christina/xn12TvBh+K18W3OfD3Y5S i9ppk3339iVSTjtVluh9tl1hi4oZl84f8kdAZzp02fmsq5A+/Su9kyrcsqBEItzodVuC6W/YJ+PXbYwU Tvcx4vlUpwwXOx3m5blZ6jPbraM8ztFsalc5mH6yUn LRO8PCKscsA81Q97ISq62L7Ity15O5Ib0+74oOzPOzwo+/mODsr+r+DpOzXx1J/iu/oqP1/Lh4uzUP9L w7/yE0yOY+gV+rn medical inpatient services/FqnnAB5ls4wt9X+dY+gdeoe+xqsdC/QcD+jHM+5p+FfnGPoF/Kc6CzlJnAj3p7cu PrF8le2xuoOzD+gNeofeoe/C41ei8FI/dfzMUzvop4 6hX9DX/LsDfuoYeoFeoFfoFfoGfYPeoDfoHXqHvkPfoR/Ew25L6B3bg0W6V5jnzX+ohGp3MucA/0oN7T F272BoD0xU1XW043ArY8gF1XQ631DmE9ye/Q286erLkj7EQ61K/VYeiGjcDNkKvjGfnYqmUAoQ6dYf7P M/w79S+FcK/3ieCrc2O5Y/pR3Pt+A1arasbhlk9Rt5 nm8v/1l7+c/tYYyJ0dI97Xg0IbuQ/YB+Qj+yI1Uq4oy/dY6h3+2NdbHwr/JYoVfoG/QNeoPeoHfoHfoO /R8wlGFF+P4N/z7bxarjx6Ns9Jbcr9+V59z+BA1uLohhpn1QbY2XAt0kb+WxkXcFF6cMsH35DB5dfh1w 5Xy6/aucZyfm3+1f5by8/aucr7d/qL3c4YY9/Xxjrt /+VR5v/+o5rt9v/ihfqe5jtCqxG+I1le4a18q6T4cW1L1qB8f2cpqq4ebWd6h+Xph/F+ec1BldFge/F8 arhf68/at8Xtu/nhr53jwnWIauMQoNxFIp0Tn7Zk5H73Se5Ps5Lw0yrR+O++nQd+uT3NU2Fb7IyrRJ9g i73Qb3tHq0P2hB6+7rwjgzz93yCY6m1eoY/pqPRxzf +o0S4puov43/2e3N/+72ahzX+5yJm4d8v8B/mw2MOFQCmmWAlPsiGf/ffE6e/+YjbsuLtk2FrOTVzQEo 3JW25EvUxkBvMtXs0V2qPB5tD48oU3QhOmYB2p4ncAs/96xAXNwXiaqQ3wTO79Ojojz/FXsLdsTMa/CI 4248Bm7w0j+xVBbLp8THt0/tjeey/xq2dheyAniA77 K/ymvF9+A+T/hX5/w9w2c9K/r2ecLrfN4Uz/L3cljU6rl+lw0hz8NfkS1buuxSIFz/xuEW/yN6ah4Pa/ 7c0J8b+aHNv93os9q+uCtGBhTB4Xw7Rt+vd9Gu6OX81q/D+9d5cq0ul+Y9HaYN7U9Ize7tKnDU2U4Wid 1wyrSZ9F8Kai0jwcBJ2v6lf+FSmeRKpgD5Qa/X8Xwd zzf8q+gbXuNz8/Kfm5f/0Su40zn/qsG/avCvGvyrBv+aef1hWe92du/AfoNd5Vh8Gf2IagJ/oK/vwdaL e09akqm0tgh+qoG/lyLiusi01hz5kbf+eHMd34rzH53/LfyrFnqrcWAU/6pFt4xmhwz9gx/TyhxRZV9D iyRakXXECdOMlnYv4hclnsctURgRAfcldjAMWT+1eY kW/NUI/iU0Ukg7u8WJTv0rZ0r6nmSsAl6Xg2BPUe3qi1GnKr7aYUUynp/QD+j3+VobkuFFC574vtv4ua c08FcN/FVL/ip+VmNxHM6Lw6F4mlNlmA7b9hWBvfb9EY6J40/K5cVqdcmNZ6Fhf64Psgv/Fc8o+Ks8Xt MyI27ELP8U/mqGXp7+gGJDyr0KeJsPWk/8lMTPQ6Wi nn5rwV+dY+j96ecW/NXu/xb8lYW+P++QUVpYLf5fr2C0Ou3SaH9R+HnUi9Xgqfd3eIM/Hzl266WcGcDL 5/gDSvv7fbtZmorlQ13e5V+dY+oU3TTG1x19wGV/PnYSGn3AyL6K+CtL/ajUcDyhSakuL4Gfz+LYoDfo SCxRAd2TySoMXf7GN+hr4Er7Mz+1Vuu/9f5uXNgMRr DM4Be0BGvY7rLN5279zv3odBqs0hsS21LI8J0D9tf1i7W7siFl6mdef2D8qhYm0pipa1M2zzRq7tyel5 C7ncAj6pakm4G1rqLm3wsql4I9iH0gyJx6wvW8gG5qA+mUmn4jhhj/jvfXHXqHvkPfoR/QD+xv2DW3VM 86Q5dmdZzs95NvgwO2kAcrfE6b9Kx/lW5rFY86gN9b d+q76X48Ks4PFiDZq6zGKJ43zUdL77EThhfuY9TfrbAGuLdylCLjFSovDbm36K2W7d13d9A2P+0daO9A fipfD9RwhuETbLxvjC5VihoJ45gnyYD0zb77Li8f26V9C6gmrp51rKVz+KuYi4O/ann8+J8G/spmrYfa vQLYm2FjyuiJOc89xxqC8RV2lI12F+PWtQ93faA6/N 5wXa/8Uk4m5sX6y4y/VXydrVr/unEitk1VN8NiUmtUIy/yW7Z/FX6LY/pXgqqDo6EuSf/5g8Iet2o/+1 XP16/6PvKrvo/8MugN+kkv5PqCM/um9VjpM/QD+oh7nJ5FC9+UQaL64XXWT8IA8Ku4Di+xk2Fk5CV1T/ Zfee6/iuP9vb+5Mo/9VxrH+3u/0rIx8146XhoVEdpV azz6/b2f/843sqkNQg4L4qW4UTY00O0SgDXiEnukArs2dIFYol5RG6AaTf/9V/dc5S67xo8jk5D/Vfx+ 77/SIEore7ZQx7/+yvI8Y+t7HN+/z/ost09IuAQe6885Qg+Z42y6OTif98+ae8/RcdhCmj0WjjtJda2o LFOvqo29U6KfOx9ox7LmBfkhS15qmoXDrxCtlRb1yy vhDOc70g6uMb//XqP2xsdfYyK/hcy5G831Efew6als/4crha3Fxnv1qdh4zekro882Pns5jBA46HN/yr H/yrH/yrH/yrH/yrH/yrH/yrH/yrH/yrH/yrH/ys1Wr8Xl2BP5Bd4nb4TI4FQ7eQ2jY1xe5DU335BpW6 ux/8qx/8qx/8mk64QavXD4uRM73XH+6FgfdOy/cuy/ cuy/cuy/3t4ut9A/lWP/lWP/lcO/cvhXDv/Ksf/Ke/mV7rOfw/qV3qt6M/yit48nfPb3Vfj/5dh/5dh/ 5clfxe/r+9ex/8pAr09Rzrg8iwu1xci49W2hc0D4j1V/4aP2q/io+poXx7v8A/yrPV97+FcS+fhn97t6 u4d/FWPaLH/DZ+7Q5wGaYavE/lvwZo2vi18Yz8PHYd 1Bv/soFrjCeT0Yms/xbRaf4+DkLNwCs12s0OnB/VcO/srDvzrHfjgoB3/l4V/FXBb+1TmGvkHfoDfoDX qHvvZfee6/ymPoB/QD+dx7vRlV6i/2m93H/Sq+rgd/VeIYV3nTW/Z25SOzHQ/1q+ajfhU/2a/sF1gjnz 59+9wb5Ph4n9G/9O1fRb/q27+K/mgRb4xOR2/+2a/y n/tV/hkHw5W6rZ//avf/Hv7Vfi+61PpRD/8qj/V5j7rU+m+X4p+17Gnia5a/p8G269Szx+v81L68Hu2C fkI/oV/QF1/Tzmrplve9Pt6Bn8Xt0V72Vs5sb0aoes9L3ujnm6jwjf2B8voqH/rUTfT09AzpcUMftqvj cmrnZcDK2KG7jb0S557N7fc3ErC2yn0E559n4hlV6b c9BiC2ja8Ex4vh+RP2X0KxTVnfa/M1PF/W1sJ0E0EvZlUS5G9Iea8cOxEPXTXc6P6XY1NIifTe4B6qPZ rYR4GQ9U9Iex0nseCT3T2Xxr2wsyOW0F5Bfy1utqWG1A7Jdf8uduQD9J8Aaz09AsnY5+dVWu57jx078P eO/mcJn6uEvkTw0Nc8Ar6U71Xt1V/oB/QT+gv6tz0i hX/V4V91+Fcd+5f74rz9heJWpXgzdAIxLVvqVMkN0zhP8fS0IgT9eV1b+Ng+Kv6oJ3+Ez9Xltmv4fBGu 9Lv1Xa87kw57KUy/8gWgsxGMjQt6Vs5MmnlqItxD73UBf4RrrWz9c5/s2H/TgV745Yi04X9+vmo/f1+1 n7+Ht4IXuF/QN+gNeoPeoYe/seBvLPgbC/7Ggr8R/J XkcbU3+KvwK4K/5tMMoS4nu6ZAg9YT8auF05b5DiNVbjWl9Tvxlk7Mi+Xx++nW95z5oSEUFhnmmp7tbk X9cdX6/gB/NcBfDfBXA/tFZG55iV0Q8WaD/CGPhlTAUn8vMpZ82CN/SxLcSfCCRnn7p53d39KC6/6Q2r 8xgr+83eejP1ueXyRzeZ20SP/W2giA3dG6bcBw27d+ Vf5m+9g6Sw89TzLkoyB8s+bURvat2RbADSo/Wvkb2/vBdB/35spVRK48KL1q77u/9Mv1PI394GuQxFe3 p9wKeQ7AW4n3nrr32nfxkL+FjHD6ezez0z/6fo/G5q9G/LdVvOS4/atzz7d/9TrvbuPtX+U+g0X8X7b1 /pnRan1/BH+7ojBK5m/ifRzhX+Q09lP7k5DS/o0R/p HPy5v4m/CnFru3jRGrvug5w6K75UO50NM/NcBfDfBXA/vbB/a3D+iaG3zzHcVmIvVCP/cFYC77bK1N2Y cD/KFKnqYLnosgi61Xp3jjA/AI/yqPBfra/ym52i5SK+uy4Y11l51ag+gd+k96ak8qKE63WZBX8d8E3S 8c5M54pT0P6AqN/CPHdjOXFgo2Xm+wu1Lt7Zg7D5/x GeuDA+uDA+uDA+uDA+uDo5e/JTx5V0DrG1/tRaeMNmwPBemWJuxRNbuNQyuEG7lm9i5zix91MVlG9C7M +Bnc2dyhy4nq/5kAQN78Q3PDpCIN/ffn3aUaXw6ouQ5apd+P8K/7bL0Te2PX0/bEVJJv6qvCqcTfZbVZ Bp3NCb8gpE+GGE83gdG+aoC/GsFfnWPoB/QD+s3n9D kT4dCazV/+1biSZausft6NLaU0H/wzCHjUw0v5cUdW7rfcofeVphOAh7bnh80c2+2NuS/2w0WAu4YHRd +Yagwugzm4z7U5CHlt5Lmfh0QzsjSpueKfed4krt8lZeAdmO99shDWa4IBS2+l+9guHD/9kTNq3aXAbO jo6/vC6R9oKG1ucb/muxj4oyw+aoK/jaIpSoblQt8k Jn/biok3HcQ7Dlp1+ZNTyp+v8mZ76Y27l70t06C62Ww460ssJ/IHlNk2sz70sLb3OG9TU4SM0Sh2Xa/f z5JzpHsf29QXv32jz+x01M22Gu+bCaVv2Qprb45kI/K8Bb5L6/NsF/LYgw9wsQ7zr7htGmeX9n4gt25b N+gvk7T1e6Y3ujrqG0vfjP0WZ3Um0XO5tvQg1iqfqo a6So0G12Ii4Ov5Jf1Ut/Bv7omiv1L5fvOc1xgcj5X7nsHq/9XE/quJ/VcT+50f5p5B5V+y0T35Jp04gT kMRpx3Zw31dEnCLrf6We86uRfEDwl3Ts6ywV/2X81e+3Mm/KsJ/8vWb6jbmbu1itt/asK/wrPdEoh9A+ tpx1tsBiB/ffYB/YR+Qr+gr/UDTchpeAJJMbHk79Q2 6nthDoW+Qd+gr/FyUMg2hk4H3pPs0YjpL/QD+cm4jE0OZ+wov6Z782U93Sg2dTQwav/AQxOqssz6UtfP bMBc5Re6An6OjaO68pT2R10ePQ+iuR9h1v0s4o2uUoLVBpkv8cYpqfkc3KM0KBYSI+IHY+6O+MHcEL4M s0Wd4pf+xNp6tzw20R99Wm7XnXszo/ckrfZbPIv0wl r+DHybnvce1MenGN+uh27hwYD/Fug761VThvT51htyiffeJwD+zU55T9np/GAeQz+l92mJ0jMpGi2wLP O/oF+lj/hMygj6AY/QK/QKfYO+QW/QG/QOvUPfod/y1ZoKcy8Ftbt++KiF/Vcr+Qwpi87qk4i/uoK/iu Pgr+T7bR866Ew3z2+8gr+Ka4V/Dt2Ff48t1D4rb3Rm +c8r+SldE9SubbmUwU9CliwX/NV+B8rhW4xPJeNr7r6KC1/D7bxNFsvi/alvZE4Kn7G9aw/f/FVwYmvz IgJ0uPM/VXqp8qyP3V7Cu/DGsjNwyv3jwlbu8E+2v7di/2PIgUfK7S16u5WDcoRxjdHDPYE5Jl79HZ5x TP4nxBwaWNt/kKzNm5rW/F2giq7wAdcetO2v+rNVPO yK+PPxMK8JuongoVCDW32q2Y96zherTO94suCCn513lOrw3D/oF/Sr9BE/eI6hF+jRnyN+2YbN69Uk2P O5hoW90dbJuWl+Qz+cS8OY1Ym8I/pV+u5xZJ2b4Kc/Xh3Pt+O0glyqwvwpM/RKbHYs3Oz3WVeHS9j/eo 6hx/jcZ/Xbjv4c/lXMEeFfnWPoBXqBXqGv/ILp5R38 FPRzdgXj7vb+zb4X5dObr4Stw/sa5T+nNsAkt3H96Zpnf3kM8+0utR0bjVwj8Y+0B7RsaD+hHw5DgpWd rFn+xpsZY8CvbTRW0bymwAWh3kah6G/1QiPvoj1SVt6TowO/+ZwYA4O/yuL0Zra5Uq2uvpQi+Bl4PoXV r1mQG22ie20xF99lSQ/VQx/xkqGP/Uihr/1IK/ircw y9Q+/Qd+x95PNeJH7B+63Q2Mh7l7yeH+nOh4yem53NfKsKbRw70zdCMri7Yi3zhEHvKi7Lh21vzE1BdH cXiRXAqaA9kr+sW25mLt8i2mGHi1ymiiVHfqSquG/v5zimhpt0YRLZrvBrwXXhdq6ozBz0lGEN9fDYzL cvqW/bx5MGcJ5bkiX/hyCPopL66RHSnBdCsSuY1fjM Eoc8FxKptgmI3WzrLNYi1tmTK4K+ym5PTQQdnJwNBXWSsSb7Ku3YZJDRLTTPXY4sz3V9wFfnNMWV8KOS jKsZErZRBDWPfSd0pM4xGjkSBtDGAWKzPTmeFZON5EYBFrlnMRDN4CJQHvvlAKTN9JNSBmpvFKIS6VCN [file] JC4bD30638D1E373KTt5vaYjZ6e77rAt90L8gj4H1L AHF4j1wtJXb9wayRuk8+5q8wSxzBm4KSx5eHIr64jLIyytkBsTnbSu21xJKxIOUEF2Bdhh8E02AGy3Fh 3QRxB8GQ32bYdJPOhmiiUhLgyMgKT4uvvbTnpzMwf2SD1JVMBnoWXw7QghbZuWZLOQCCi5Qi5QJSYlXQ +wOzoPJyTDEOErNMQ2DSiPyPOAcZBY90G2g8bFTEXN NJZ6LlFvoSMNWl1TEGIXnjBmSMdBAt3n5YjjQw2hPhg95+A1WG9RFNEAtGzBTj+6nxlkZo7PZX6YK8ib K3rbScCrtnHY4GMjjY73B5L8qS3/2zzaDyneIsebCmecTzpuMlh6czv+jD18etH2vuWcA8Tw3OBA0Ru8 iincSuzmqJsHslN6kamEal2L6AI2mT4Lf0QxWlx0GW LNQqhNrElWjPzVB9ogI+qfVP3A4AdEPIcbHoINAvQTxl7QQV337eglUmyALYDZ1XTMWWj2rOlHwd/0Wd PyIdGy5jDsRQD0JUEvamddUV5CWQXxN/KcQtJQb0KJDXWhoyWH0QEIeIBBfjUyUvp1vyFbKfLQbMZlHn 6WBp/8KO6ATX7sUuH7mQhP3GlL0nlEVvqWjwYtNCSt BwofLXurMWruq9O53hwua49wRy8D3MAV+1CyHku+XAZ7ovSigpbcLw0N0wW6OBliTe6V4kAH85CknnVC U2cmSfwfZMJ7s3Ni8atu2XkLDKLw5stUN2w9DFXOuyqeq42Dvf0dZXx5ldf2009n509WlAtjsoBk9kud 6yij9yfe3quc3dyd3ywz9omynsZeisHslgAcroGufx TfaoKfrlOinEg8vZwyVdSydD2zV45355Dyx6hVbm+8/x9p1F1f7u65d8u9L77hdqIpLGAE/u3jD19/+f 4f3r74/P2nX7/3WC88I8aHEv//5XR8BFEkP+K8yfpd36+k/uprwkmi03jS9VztkD+u8ZE3/u17Qts4/u tv3v/27Ztff/3h4w/e0c710zAEZ/k4f8ad5b/+m3df ff35h9/+/N1Xv/r402/e3t6++vKbD5+/f/o63umBW41+7jcff/GTBt3+6G5TP92k0afd9nK+2ufvv/n6 0akFzrveq6/9jZ/dc/D9s19/+fXXn//de0mcV6f1iu3oK33s+Lqpd++/+Vopu990s4qxM/hRf7m983yd fvXpu6++uO/03Sf//XQx9gpp1+yfvXv/9smXv/r1x1 +9+/Tt3z7/9Tg0g1bv/+ivCt8Xem9HKjnxdy/lF00vZiS5dj6/+fb15//8/vN/ehnu/Yw6Gf29+P0/v/ sbv7/Hsvv3n/z5h//441++/+4Pb//+32+/+eOf/vTtX/7y3bd/+oe3T7/94Y/f/jsnw21f23x///bnH9 7GL8R+cP9kutInErUnFx4CR8k7wh5lH3B//vtf/Ccv f4REPDsL/x62vBh4VTxBklnl/w/g/cJ9qAIV9d6DhMsqGl6cj/7Tqslv2KYyEu+ijSe3Eb/dt3yQmgk+ yz3w0tm+wVff/cd3L/nukgpu3n8myos/7BvFtu5+++h3vm5diRiYm5gIi5f/lpYtY/GsH1O1Yucbb45a 95IpXZ8FU4mXzuQgacapy/7x7S/f/cy5Oeh8f780n3 w594++8jUj6pIM90/PfsBff/X2xx/+67u//J+/uvk4/LEqc17e1/48xeunZz/Hk1620bdn/vfr3v/45x 9+evqdb+8xo84WYHy/imlDv336DR/5wuN8Ol+F9fmjs+5o2Ppao/vXT27+nasNbW69F6Kz3lLVlm9jo7 7+4e3b//vdf/71i/M8t0t+/uUnH36+d9L/3u9yt4I/ /+V3f/+TX5/n8E/fff/vd233wQlD0Z++/d+///Y///mcPd59z5R66h/+8NP/1/ty/enf//q/jxG/+vOf v//oszZ+8oPT3i/+/XfMnHIJ1kdYOVql/MN3v/+fP/zx96/7++kzIVA5zQ13jR/46X/+16vP/eGjj3/1 OH14b7Cx93df7Qkq/o/v3uTtz//iRnoO0bPFctd55/ bos9tq4y9n+JKH3b3AL3/3/h7WXj+u+WoP3R+63kazT7Ck038++fKb96/hswoj3yww2+p4xz8Hhs7xyl caqpIhgSEuDU9CVX8gw5XyLgA9LVAmc6SlJGluBMl4gDVwMIvxznOca2HawtytV5Hkq4BvUfCxVTPvSw SzVru1HWGsKtR0kZHtLuGsQKSbO7WmSSMyRfM4DoWb TWETDX3VQSUefqWiRaEkCPI+RhIdGM9ozewyOKMbu0WkFRduSUnnLGRzE3H1rEitFJQyD3EqaR83SMKk M7DdbiT9GIC3CDPpKtAlPTTiuIBzQODeKLN+KkPzIW9cjjqaYGNnb7MnAAedGQW0mO9oFZtTAHFMUKqH UZjzWnK7o70vdrZXJYKuRYBlXS7YdoCgeWsfpeCtqM TcBXG3AaTqHLL7JTUzCCTlUDPYVVIuBXVwHHYnZPNyZ0CtsUdvUGrJBORHQUsGQDdpEcBnf6D3TKLxbm LKLLSPG56zUDoHWtKCSIstXNM0NGMqZWbdL9P7KvmjO3MjDK3EU4IrZEUzZHHVRTMqeuRcXH6ZolJcaQ 0eBMpVZDZRBLnHIRqcRaC2q93lfoXOREUoPVYbSDbl BSHzWGIvZAAbYQFzISNsAFCjBEVpHM0TT9CiNVBrJQKOOQJ5c0OkHFLdkziklszcCm7oftWoMhy+Pgox AYHdk9ZmXPskC0O2aFQqA7WvY4AmSN2PsICxGVrkICJuOBHjBYXzI826ujJgJV4+PJ8zz4ZoXyutZKCL RIAnRFYtQQObZXH1KoGfMORrHLErOHZlQwO4XlFrKg HYIWGyHHJ9AHD5EMYnJHFnJSEwUOxvJMXgIFY2BdKoZEGdYPWuIH0dAfZrKEYoOuTjHnWnCLLaAEOhcl NVHVTrHVUjHGGkHPM9SUBhWUTaVLjkNRHmQQLlMNX3HAOdACItKR7sQaEkEMEaRDXrHwymXKNhONVnfa EOJNGoSVVaVRI7KuNnYWRfLGUyUEbnKVDhQDLgDan5 THFsFQPqDP7jRyKaJZDgXDR4FPuuJDGjJRVgvnJUFFQdLSHyQTWxWwRpORSbASXmZNusDKNuREDqWdLw ZDSrKATmSW5uDlNwCTMoMMZ9NNJbRONjAFRnlhLEGZJiSAOzLBv8FKRvEPMrEKGpGCztJRLdQAUsNGJ3 TNQuZOJnVY1mTwWyZXSoZNJzZOIdCPWqSUHdfqRKEM QiHGRiMLY4ZBHeJHCwNXLfBVxbQLXqIVEpPvz2KDOgRKDiCJ1pGtIsQXJiKZD8TUBoEGVzSYVwbjGNAO DbGSU6WBI6ErNaRZSoMZWdOZvuFMNpTIRcZyT8PCNeMSGdKG5dDmVuBHRrZTW3ZsErMEBbYBEiylMAXG DbEIAuUOT3IhLwQONyGSNxPGtdFDTtKNYmJAYuUGM3 ILT9MNLzYbDpOEgtBBJUCPtUX5WuomGnVtLNA0wgCf7dPsWdYJSVR9Aqn7JjQIIbOMROOq5+XhK5OGO5 lOPlPyk8FMW8ZJguYWWSKv== ID Date Data Source [id number] 12/05/2020 06:18:08 AM [facility] Name Value Range Interpretation Code Description Data Catrachita rce(s) Supporting Document(s) Folate [Mass/volume] in Serum or Plasma 15.00 ng/mL >4.77 [facility] ID Date Data Source [id number] 12/05/2020 05:41:21 AM [facility] Name Value Range Interpretation Code Description Data [place]ita rce(s) Supporting Document(s) Leukocytes [#/volume] in Blood by Automated count 7.1 10*3/uL 4-10 [facility] Erythrocytes [#/volume] in Blood by Automated count 4.15 10*6/uL 4.1- 5.3 [facility] Hemoglobin [Mass/volume] in Blood 12.1 g/dL 11.5-15.5 [facility] Hematocrit [Volume Fraction] of Blood by Automated count 37.5 % 3 6-45 [facility] Erythrocyte mean corpuscular volume [Entitic volume] by Auto mated count 90.4 fL 80-96 [facility] Erythrocyte mean corpuscular hemoglobin [Entitic mass] by Automated count 29.2 pg 27-33 [facility] Erythrocyte mean corpuscular hemoglobin concentration [Mass/volume] by [facility] 32.3 [facility] width [Ratio] by Automated count 15.0 % 11.5-14.5 H [facility] Platelets [#/volume] in Blood by Automated count 258 10*3/uL 150-400 [facility] Differential cell count method - Blood [facility] Neutrophils/100 leukocytes in Blood by Automated count 61 % [facility] Lymphocytes/100 leukocytes in Blood by Automated count 24 % [facility] Monocytes/100 leukocytes in Blood by Automated count 11 % [facility] Eosinophils/100 leukocytes in Blood by Automated count 3 % [facility] Basophils/100 leukocytes in Blood by Automated count 1 % [facility] Neutrophils [#/volume] in Blood by Automated count 4.42 10*3/uL 1.8-7 .0 [facility] Lymphocytes [#/volume] in Blood by Automated count 1.74 10*3/uL 1.2-4 .0 [facility] Monocytes [#/volume] in Blood by Automated count 0.76 10*3/uL 0-0.8 [facility] Eosinophils [#/volume] in Blood by Automated count 0.18 10*3/uL 0-0.5 [facility] Basophils [#/volume] in Blood by Automated count 0.05 10*3/uL 0-0.2 [facility] Nucleated erythrocytes/100 leukocytes [Ratio] in Blood by Automated count 0 /100{WBCs} 0-0 [facility] ID Date Data Source [id number] 12/05/2020 06:14:18 AM EDT [facility] Name Value Range Interpretation Code Description Data Catrachita rce(s) Supporting Document(s) Bicarbonate [Moles/volume] in Serum 22 mmol/L 22-29 [facility] Chloride [Moles/volume] in Serum or Plasma 101 mmol/L 98-107 [facility] Creatinine [Mass/volume] in Serum or Plasma 0.86 mg/dL 0.50-0.90 [facility] Glucose [Mass/volume] in Serum or Plasma 81 mg/dL 70-140 [facility] Potassium [Moles/volume] in Serum or Plasma 3.7 mmol/L 3.4-5.1 [facility] Hemolyzed Sodium [Moles/volume] in Serum or Plasma 133 mmol/L 136-145 L [facility] Urea nitrogen [Mass/volume] in Serum or Plasma 13 mg/dL 6-20 [facility] Anion gap 3 in Serum or Plasma 10 mmol/L 8-15 [facility] Osmolality of Serum or Plasma by calculation 275 mosm/kg 275-300 [facility] Creatinine/Urea nitrogen [Mass Ratio] in Serum or Plasma 16 [facility] Calcium [Mass/volume] in Serum or Plasma 8.7 mg/dL 8.6-10.0 [facility] Glomerular filtration rate/1.73 sq M pre dicted among non-blacks [Volume Rate/Area] in Serum or Plasma by Creatinine-based formula (MDRD) 87 mL/min/1.73m2 >60 [facility] Glomerular filtration rate/1.73 sq M pre dicted among blacks [Volume Rate/Area] in Serum or Plasma by Creatinine-based formula (MDRD) >60 [facility] ID Date Data Source [id number] 12/05/2020 06:14:18 AM EDT [facility] Name Value Range Interpretation Code Description Data Catrachita rce(s) Supporting Document(s) Magnesium [Mass/volume] in Serum or Plasma 1.9 mg/dL 1.6-2.6 [facility] ID Date Data Source [id number] 12/05/2020 06:14:18 AM EDT [facility] Name Value Range Interpretation Code Description Data Catr[place]ita rce(s) Supporting Document(s) Phosphate [Mass/volume] in Serum or Plasma 3.9 mg/dL 2.5-4.5 [facility] ID Date Data Source [id number] 12/05/2020 01:16:36 AM EDT [facility] Name Value Range Interpretation Code Description Data [place]ita rce(s) Supporting Document(s) History and Physical [facility] OONCYm9iYkPGWzQh18/WRCwsZOGxu9BqRFwbKLn2LAoqQROcT5CbVLL1aZ9jXGJ4NIgYPzQpGvZuCiB7 lbm [file] 1qwLxm8i0t+m5sPUGnfooZ2bcx2Eel6hhcq//pSOWOjXfJ6/aQ8WenJkko+pTgg3YQ/nL6D/peLM9+CATERING ASSISTANT 7HvlT4/wqplTJwB2oQR/Ga9S3M7X5muKpIjxwUhevW ez+8x35I/utBy8nGum+898R/4g5mzLC3i2z//Md+NM0l6C5d/alrjVovQIOQhKwUtY9h/whKBe337JN2 +lU8O9guupo+4yoX3WexT9M8r//ujeiddfqTez/8L340/L9TOwT4WY5+ZM+HeIr4YzYkX7c9cd5Zw1k+ LV1+rN5L7w/tltcluha88gYQ1T667/rbfc3ucrapD/ 5W55S5c09YeG8qG3DPr974ncAwD6srU+Vc4HUW91Mya4Bl6E8Yh+V96149Uvp6Ht4P/mO/LW4137/kq9 [file] guzman+U6+/9N2/J+2y3/sgR2N7yI9p/Eavwm1wJiWcqKK +IfDiVcrRvL3WXSiKlR9H/sd3M/KZMtgv1omRNHkjwh+Yl2a8/xTSunFIC3qcT5jbaYmLAt9WGI1Kysl 5OT660bp4a2LI2dr6A1c7/b6HO/CtCyyU14YtB7sPwKpyo9LM+tOiYl5pddeZ5G0m89+l5frN7gwBJ4p 3J5wyFPD+br1W+Qe1SXS3n+O34FIMOlqSgz2RIf6oC 8mc4RW3bL7xLpX7+BC0rJLt3smrwV5arP11R28itscZRk2lDws0lI+dko2BCxjonfPrj0E4KBrwj3Qoy mJxIy8gQvP2hPur7WBlxkeG93up0V8T9u9Ac+X6fcUxyebvYgl78z/hu/FYMjJBklSz5bBjI21pb5a46 dT+0uzoMc/IJ+6+8Q9rycOsfOkM4lNXHtziIVeUyZR I6Y0t1IixZDAnkXBJL3iCKOqCT59aRgGguj5Tv0m1mFs4N5CvBZKzOuL46wkAq+FfvIT+AFNh/8NUANr teNwYl3vgBFyyp13gwzcD5dbJ6rscOgxy5Hv0Zsvt3oHPT7st2amuqOpmTaYoCA+MdLtstfvvK/A/sales support advisor [file] ICAgICAgICAgICAgICAgICAgICAgICAgICAgICAgICAgICAgICAgICAgICAgICAgICAgICAgICAgICAg ICAgICAgICAgICAgICAgICAgICAgDQogICAgICAgIC AgICAgICAgICAgICAgICAgICAgICAgICAgICAgICAgICAgICAgICAgICAgICAgICAgICAgICAgICAgIC AgICAgICAgICAgICAgICAgICAgICAgICAgICAgICAgDQogICAgICAgICAgICAgICAgICAgICAgICAgIC AgICAgICAgICAgICAgICAgICAgICAgICAgICAgICAg ICAgICAgICAgICAgICAgICAgICAgICAgICAgICAgICAgICAgICAgICAgDQogICAgICAgICAgICAgICAg ICAgICAgICAgICAgICAgICAgICAgICAgICAgICAgICAgICAgICAgICAgICAgICAgICAgICAgICAgICAg ICAgICAgICAgICAgICAgICAgICAgICAgDQogICAgIC AgICAgICAgICAgICAgICAgICAgICAgICAgICAgICAgICAgICAgICAgICAgICAgICAgICAgICAgICAgIC AgICAgICAgICAgICAgICAgICAgICAgICAgICAgICAgICAgDQogICAgICAgICAgICAgICAgICAgICAgIC AgICAgICAgICAgICAgICAgICAgICAgICAgICAgICAg ICAgICAgICAgICAgICAgICAgICAgICAgICAgICAgICAgICAgICAgICAgICAgDQogICAgICAgICAgICAg ICAgICAgICAgICAgICAgICAgICAgICAgICAgICAgICAgICAgICAgICAgICAgICAgICAgICAgICAgICAg ICAgICAgICAgICAgICAgICAgICAgICAgICAgDQogIC AgICAgICAgICAgICAgICAgICAgICAgICAgICAgICAgICAgICAgICAgICAgICAgICAgICAgICAgICAgIC AgICAgICAgICAgICAgICAgICAgICAgICAgICAgICAgICAgICAgDQogICAgICAgICAgICAgICAgICAgIC AgICAgICAgICAgICAgICAgICAgICAgICAgICAgICAg ICAgICAgICAgICAgICAgICAgICAgICAgICAgICAgICAgICAgICAgICAgICAgICAgDQogICAgICAgICAg ICAgICAgICAgICAgICAgICAgICAgICAgICAgICAgICAgICAgICAgICAgICAgICAgICAgICAgICAgICAg ICAgICAgICAgICAgICAgICAgICAgICAgICAgICAgDQ e8M5jzRHAdVUEhOE0uAYz4Cr6+AXgZNnDxQGS9biFpcB2KNZ6cj5TcBLguIMBlm4NlDGt0QF0QGNOxYA spIZ8UWMcmvv9LJFAxCXJunGINz3bcErMiQQV9QWKcDxkjFZ4YJPDuG8bbdkHpARBeNOBBFJozEHGPHA isANCOFYXhWEQcCzPqHfLoKNClQOOsEVSNZU4QEeNv Q4IdcK61JTJLLj5+FSlbagFqXbqSBsXkBQLjk0IjLIj2AN4HONUvZtvrt7FlFiQfVBJLLOoqMF6NOEG2 KAMePIHsGn2TOOFrX941ftSdLK4OBg2LPhQoMV8lxn5HBfHbCGRwIkgREcp3SGtdHE2EcCSaJHtVJxJm QsgvUay1VP5zKKBxzPOxvTVoHAyjMGLoTAKnGy1bSk 7dFCMzRAO6QfZvZCBYCQ4JHJBiDEOlbZYiSHNiSMLRTP4RFLkdKHW3URFipbWhmQCwCFmdHP0ZDNMglp QgMzIgMCBSDQo+Wn3RSD1nm3YeZIgfERNtYX3mhe4NDFhAQeYdY8D0sSUyK2V6OXkiLc2OQKVySHJfCn DdUUOPFWkoLT3DLK7pshS8FL7UjHYhKZVwOPMspYZd LMz0B03uePSuYSpuEH8HQVP+Sharon+Zu7DZYFhKCFcDIPtLhAwYGCIHdRqR7AvL4GEu4NcQ3PxLZ08dMcg qmKyQUieFO4FLZ3dBZSyBIARWE2DzXAaaO9lifNrPfCzKCTHGlQcR31tpSKlIYYsTXGvAVTvZa2COYYl W8GzivXzaWqeomEqDHYuZLFDCH6JUKokbxOvgOCexA ydOX92oCbqBC8AIg8BNlEyXZ4wzs6EhQFkNy9PQOYfCT7UAEEzJHNcREQfXSJ5KTTuNbFuZSnpQEVpJP UfFOC6BORzQMSnYN0BKlBtLFZoNlBlRsIeMRIyXEXllo3ACRSrVNJaUDS1JFVfYULeJKSbPIywXCYlCD XhWWB8JEUzVBNsGG7MHqIoYNLlTQQrJpBuRVRvPZIj dg4RUEBvQWSbPIMnXYDgLYEcMFKgHFhfTVLnTHA8BDn3VYUoUKLnTY0NNuIbBSViIDdbGKGuQNRqOGLs ar0IETLsGJFoFRMrMtSqMFFfGEYwIOfnIDIdCRDcEgG0KKTzVIYnIT8QLuNoXIEwUHI6BlNdJMKqQUHs vt3UEOIjGCRqRTF5MiXcSKYhWJVfPQbqMUOsYIU8WZ UjYELsYZWfGQ0BReNnPTEjFCwoJgUeGSVcCJAspn6IGFGrRFBvDSxlIFPoDCOtDTSrMKgmOQAfLMTpYT B3KRNdQRRtQQ8PGkFdMWHyQhH8GzCkLJUkFRGztn3GYRZwSBTbXMI5HdQyAMHqEQOzDIebZPDaDNYyBq L9RKEvRAVxVM6PEiDaVWAtUzPrEFUgXYDrUUXcny7Z VASeQVKwVxYpMjWtAKKcQJJfDGouRBPaCVNfVwH4XRImYBDcKQ7AAbJpAIEtOcKjNLYjNYQaMXBtey8H HIDqJUFpBPQqUEEsJKUcFNUpKBekCSXtQWS9YoJ1XTYgWKSoIV7HRxByWZHiPwT0NGMvXUDbCTWuch2Q AODtNRYsNAJyTcTgCXCfQJMvGHetNCLoXML6GED2XO SgLRBhZS9BPtQzNWOwEeAbZiFaDAJbUZCert8JVMQqOHIaCpLfCeAkKNHsEXHgTQuhHEHzROZ6CiK8NI MeWQJbYQ6VNyYjMWUrTyhcWJOhXPQgBXKuyc9MWHGpVCQcLGK0HOBqSXLnKDUrXXvwPBQjBSX4UXBnLD AaKLBkTG4NMaOwSStcTTTSMwo1IJcvZ3h2FFDxRS3A N6Pxp0OvRyGeOVBZQFqfTS6dovMnMBArUa3SR2xXIsztEQSyP7NhLVJ2NAxgC6H5GTeaSIL0Khd7MCh5 BMEbKN2lKKYiMyT6KjA1MpQlVVS0HACzKAP5MSObOAigCrPbCVE9XiJwOV9XZw3YNoF2AKQ8iFYnTv8M Qni7EKNDQzVvAS8AJAt= ID Date Data Source [id number] 12/04/2020 09:36:54 PM EDT [facility] Name Value Range Interpretation Code Description Data Catrachita rce(s) Supporting Document(s) Consultation [facility] AZNJYu2jErOAVwJv07/BGSlaMGBlr9FlAAyjYLk2BXyzHLDgU3VhGOB1qD0tJFE7JMuTQkFkRsPfKdHb m [file] ICAgICAgICAgICAgICAgICAgICAgICAgICAgICAgIC RmLXIlDKOzMCNjDXGgOTQzFM7WJOFzPZYmMWIyCVDlKCTpACDcEAFhDNAhKAEaCDTtJBNnPTBuMIKhOI AgICAgICAgICAgICAgICAgICAgICAgICAgICAgICAgICAgICAgICAgICAgICAgICAgICAgICAgICAgIA 0KICAgICAgICAgICAgICAgICAgICAgICAgICAgICAg ICAgICAgICAgICAgICAgICAgICAgICAgICAgICAgICAgICAgICAgICAgICAgICAgICAgICAgICAgICAg VHLyLLTaCFFeOB4UPLWlOPBaVVJuXJZpAVBpPIFrLMCyEZVjARVcEJPzTDBqHBXaCHWcCOTuXVQpMEWd ICAgICAgICAgICAgICAgICAgICAgICAgICAgICAgIC BnMRSyCQPuCEVuDYUcIOKpKZTqWU8UXCSqMEWfDVFxVSQvCKPbGWOfBVLrGKCeSAIxEVAcHSNlEBOhIU AgICAgICAgICAgICAgICAgICAgICAgICAgICAgICAgICAgICAgICAgICAgICAgICAgICAgICAgICAgIC VgVQ9OUEWySTJjIXZrEJBgOFLxPBFxRFTbQYJiTNUw ICAgICAgICAgICAgICAgICAgICAgICAgICAgICAgICAgICAgICAgICAgICAgICAgICAgICAgICAgICAg JTXaEAOaRDXyDTLfBM0IIGLaNPTpLTEoZFKdVCJiEMYeSYTaUHNhLFLcLXJcQTNhRTQwJLJjQHRvZBNa ICAgICAgICAgICAgICAgICAgICAgICAgICAgICAgIC DaUAAnRQSeDCVdDXLmZNZsBWSwEWHwOR9QPKHpGTNyQVFgORXiLJZmZLRdXXBpCKZlWPJcQZBaFJUrMW AgICAgICAgICAgICAgICAgICAgICAgICAgICAgICAgICAgICAgICAgICAgICAgICAgICAgICAgICAgIC BuWJRcTU2SHUUbLWMtJUQdJYQkEXIrIEMdGHUiLWJr ICAgICAgICAgICAgICAgICAgICAgICAgICAgICAgICAgICAgICAgICAgICAgICAgICAgICAgICAgICAg WRGfYKEjBWEbOOQeQNRcZM5RCHCiOQGrTDMiWJEyWLXyISBaKVNeQQWdOCMvMWJrZRZyAUNuOFYqENUg ICAgICAgICAgICAgICAgICAgICAgICAgICAgICAgIC LsMWFsVZFkCMVyGSVoJJEgUAGcLOBaUTWfEG4JGH76gIZbx5R4LILwSL3tsaq/Mf4WZAvspgLftTGzME 4VYyAfAF8xhh4JNgUdQD1wjl8XNTzNVwKpT4B0rZPrDKFbXZWYTsFaX20sSYqpUn63HTffMPJeZpYmXK o6Gc2QWzBvB8cwZSOgIxE7SBWpFzS6BMUfIaF0TFLv PbEbWYPsOKXjLXUsDVZVQVA0HXLxTaZnWfDjXZTpWLjxWJVIFF8QRwSrA7VufP06TJoLSc8+DQplbmRv DzzKRkLjRIAor7DsKBm7YF9HNSHgSakmr8FuYKFlOEHNRMuxYE3KELM0JHRbNAHdPx2JYICvO490ysRm PH8KAr6GMtKvRA1tsz0BLQMyJMFdJzlWEzg4SOdyER 0CjXDtUPaDk03olYf0vgAicKWFNIiyMLWkJ1qgmIZmJLRwCX5YCLN3ENtoRHSxSjBwLORzBbdvAZEPFX hHAoAzV0Ukc8RpUdO2IVHpWyAhHNhvSPIwAeZ0FR17zXigSX3PTZXqMCPvGE97JWLbVIZfKx8RUo5KVe VmYR9tgc7MLJHxYTFvHrxRAyb2ABesUV2LdMZcB7Ds xKYsr6dSRgMzB4SCGFI2JKMvLh8RJGFmCyLwRGBoEAeoBV2dUOWuQGFVrWydvoN1OE1EME5wlgYdMN6G ZdEtSs8qNx4JAeTlZ1WjQ6YpCWUaXSNCJGftZY2CZWgzVO0kVB2Ah4IXiEBbaY6vyb9RNJDcUYZpImlr hc3HGzdeL6S1kXmhTKIkOJFqCYCTAYjvCM1CFMIfMD G8AUS2NYKiJOSPJgEyV01kPP4AI3Gqy69zFvB2GHEsKsUhKTycMI29oQyqwkGoqSFvqHbwMQ5JNe9+DQ xfsoDcKzvGClbdAKJLOgDcQJMLWnDhJEMxEPDjTJNqQwA5VvKnBk1YNBKvZFGtSJNoDkVkHXPuUFWdNH vwZDKaQFH8BSw0TPMwDLVcUN4OAhSoXPZhHEIyVdgl LMFdMLJfjq6CPQAdEFKoSLA6FrWjBRNsNLRiYImrFTSrUKW3YXQoGSKfWHTwNW6MHrNoEJAbJYS4Mbhc FCOaJWXbth9QEVSkCOYwZVThOoDmRTYzBWFiRTjnXJFwLYK2KZCnGKAiZQAwQP1NDdTdRNZySZIhNLHt TYYwISKvcf8OBKBeBGFgUaQ5ZuXjQOPyUEIqYGhqZQ BhFTQ6SxUnQDVmGFDpVQ3RXfJrKVBhGFF6WCnoWMFvLHUxlc8OLQYsULKlDPM2RcNxQMCpAGWmJNebEO FdEWI6IQMwYDZzWDMbFP7MGzFdJPAdVfC9KkCeTHBeAOJdfh4KXWSiIKGrMqR4FDUdAPUbRYAxAOhjIU RtQJT3OPt1HRNjZNVgNN8HYfLuDEVkFdkuMPDnQCEh PZCslo2RSHCgVXWgVXc4PZByEBWyBAJoFSqfLHXnFLM8EMM1GLJxSTLvDO6EIbFrEHNkVwYbVtMxUFGy MGGlxm4NJKSmBDAlGQCzWvXtCYPxCURtLVouWPKnEHDnRFB9HITvRYYaEM7VKhJeGSImXyPsQjQqGXXu JSLbrs5WLOShLFJdJHP9MgOkLOVuMHYqKNdoBTNePJ UzCxP9IMQtBIYtXH6FNvVfSVKpRhW5WLGkMJGpHZBogy2HGNWaZBPaFdlaMnKcQQOtQAHkMWukRZBuVM HuZWb6TEWbTTCrQY9SUbIgQSPrPxYbFMGyJUIoPFCogo8GZPUaJDJrWDU2ERBzUUCxALMvQRaxZMKvAL Y2JFW4TNHyIZQnDC9RVcDpYVEhBHV5TlHmOTKzXDUp fp8YXVHeBQL3XsX3WuDtBTCeGMQfQFnmJTJjAQE2NxNyYUHkVAFbZO9VHzAtBZFwPSG3JMLzSVHlLEZe ew4QRBMuGEM0Lem5RdCxNTYwOILvTGovGODcWQP0Lcl9CVFzTVNgUP1BOgWvJWSqAFw8QBZiPDOmRZXv jh1TTTFhYXO9UPY8AWGaXBUdUXXzVMnyNCEdLJJuJV JrOMNnKNAdDK4EFwAqRXPoYYJuEAQtGFDoNFXggn6JEOReSWN2IuE9YTIaKXPyGYBkRCxzZWNyFBDdTh G9KUQqFMJaKN3ATiTcTEMvLKI6HMsuRLYiHCPpzo9EUKRkNBI5MBM2CORgUIIeRIStPCbpNTKrFII5Ic I1ILYnLVUmHI1ULgRzUKAtTGL4MPUfLLEoLHNdfr6W TYHgXUF0CLybCmUtUQOmPDDbSIkcVOKfXQS4SENaDMWfSPDmTP6JKxJpEGUgLKO6XMCbRTHwHHHldz3L MYIpBRG3WbUlPyWfUYNnPCKqIIg6oyQpeIKhOKg1RD3IM9LkbkHtOFEIGd9Np525LLRkJYZdBy8HZ0yb Ym5oRFYoUDGWCe3FLUt0NuG4ZSZ1MWSzHLh9WtU1Ej v9Skc1AGA7PUEfFWWkDPM+LFdbRiBkAwG8IsE8EWWuRJmuCTRrKUQeNVR1XED4MQXlBp5vLABBKr5+DQ kbjXQxeTzfSMDZKaS0KUimGIyuCLYIVg3X ID Date Data Source [id number] 12/06/2020 12:02:06 PM EDT [facility] Cmnt XXX-Imp : NoneMicroorganism XXX Cult : Greater than 100,000 col/mlIndigenous microorganisms. Name Value Range Interpretation Code Description Data Catrachita rce(s) Supporting Document(s) ID Date Data Source [id number] 12/04/2020 08:44:42 PM EDT [facility] Name Value Range Interpretation Code Description Data Catrachita rce(s) Supporting Document(s) Color of Urine [facility] Clarity of Urine [facility] Specific gravity of Urine by Refractometry automated 1.024 1.003 -1.030 [facility] pH of Urine by Automated test strip 5.0 5.0-8.0 [facility] Protein [Mass/volume] in Urine by Automated test strip Neg [facility] Glucose [Mass/volume] in Urine by Automated test strip Neg [facility] Ketones [Mass/volume] in Urine by Automated test strip Neg [facility] Bilirubin.total [Presence] in Urine by Automated test strip Negative [facility] Hemoglobin [Presence] in Urine by Automated test strip Neg [facility] Leukocyte esterase [Presence] in Urine by Automated test strip Negative [facility] Nitrite [Presence] in Urine by Automated test strip Negati [facility] Leukocytes [#/area] in Urine sediment by Automated count 6 /HPF 0 -5 [facility] Erythrocytes [#/area] in Urine sediment by Automated count 4 /HPF 0-3 [facility] Epithelial cells.squamous [#/area] in Urine sediment by Auto mated count 12 /HPF None [facility] Mucus [#/area] in Urine sediment by Microscopy low power field None [facility] Calcium oxalate crystals [#/area] in Uri ne sediment by Microscopy high power field None [facility] ID Date Data Source 12/04/2020 09:31:24 PM EDT [facility] Name Value Range Interpretation Code Description Data Catrachita rce(s) Supporting Document(s) Amphetamine [Presence] in Urine by Screen method Negative [facility] Benzodiazepines [Presence] in Urine by Screen [facility] ([facility]Positive results are presumptive a nd unconfirmed;confirmatorytesting can be ordered at the [facility] at [phone] [facility] at [phone] within 5 days of collection. Cannabinoids [Presence] in Urine by Screen method Negative [facility] Benzoylecgonine [Presence] in Urine by Screen method [facility] Methadone [Presence] in Urine by Screen method [facility] Opiates [Presence] in Urine by Screen method [facility] Oxycodone [Presence] in Urine by Screen method Negative [facility] Fentanyl+Norfentanyl [Presence] in Urine by Screen method [facility] Service [facility] Results below the indicated cutoff (ng/m L), are reported as"Negative." Note: for medical purposes only; not valid for legalor employment testing. ID Date Data Source 12/04/2020 07:11:00 PM EDT [facility] Name Value Range Interpretation Code Description Data Catrachita rce(s) Supporting Document(s) SARS-CoV-2 RNA 2019 nCoV Real-Time RT-PCR: NOT DETECTED [facility] This lab was ordered by [facility] and reported by [facility]. ID Date Data Source 12/04/2020 09:21:46 PM EDT [facility] Cmnt XXX-Imp : NoneRespiratory P CR Panel : PCR ResultsMicroorganism XXX Cult : See Labs Tab for 2019 nCoV RT-PCR resultsHAdV DNA QI MACKENZIE+non-probe : Not DetectedHCoV 229ERNA Nph QI MACKENZIE+non-probe : Not DetectedHCoV [id number] Nph QI MACKENZIE+non-probe : Not [id number] RNA Nph QI MACKENZIE+non-probe : Not [id number] RNA Upper resp QI MACKENZIE+probe : Not DetectedhMPV RNA Nph QINAA+non-probe : Not DetectedRV+EV RNA Nph QI MACKENZIE+non-probe : Not DetectedFLUAV RNA Nph QI MACKENZIE+ non-probe : Not DetectedFLUBV RNA Nph QI MACKENZIE+non-probe : Not DetectedHPIV1 RNA NphQINAA+non-probe : Not DetectedHPIV2 RNA Nph QINAA+non-probe : Not DetectedHPVI3 RNA Nph MACKENZIE+non-probe : Not DetectedHPIV4 RNA Nph Q MACKENZIE+non-probe : Not DetectedRSV RNA Nph Q MACKENZIE+non-probe : Not DetectedB pert.PT PrmtNph Q MACKENZIE+non-probe : Not DetectedC pneum DNA Nph Q MACKENZIE+non-probe : Not DetectedM pneum DNA Nph Q MACKENZIE+non-probe : Not DetectedB [id number] DNA Nph MACKENZIE+non-probe : Not Detected Name Value Range Interpretation Code Description Data Catrachita rce(s) Supporting Document(s) ID Date Data Source 12/04/2020 09:20:30 PM EDT [facility] Name Value Range Interpretation Code Description Data Catrachita rce(s) Supporting Document(s) Specimen source [Identifier] of Unspecified specimen [facility] PRIORITY SARS-CoV-2 RNA 2019 nCoV Real-Time RT-PCR: NOT DETECTED [facility] Assay Performed [facility] Patients first test for [facility] 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 [facility] Patient has symptoms related to [facility] When did you start to experience these symptoms [Date and time] [Phen X] [facility] Patient was hospitalized because of this condition [facility] patient was admitted to ICU for condition [facility] Patient resides in a congregate care setting [facility] status [facility] ID Date Data Source 12/04/2020 07:47:40 PM EDT [facility] Name Value Range Interpretation Code Description Data Catrachita rce(s) Supporting Document(s) Leukocytes [#/volume] in Blood by Automated count 9.9 10*3/uL 4-10 [facility] Erythrocytes [#/volume] in Blood by Automated count 4.27 10*6/uL 4.1- 5.3 [facility] Hemoglobin [Mass/volume] in Blood 12.5 g/dL 11.5-15.5 [facility] Hematocrit [Volume Fraction] of Blood by Automated count 38.8 % 3 6-45 [facility] Erythrocyte mean corpuscular volume [Entitic volume] by Auto mated count 90.7 fL 80-96 [facility] Erythrocyte mean corpuscular hemoglobin [Entitic mass] by Automated count 29.3 pg 27-33 [facility] Erythrocyte mean corpuscular hemoglobin concentration [Mass/volume] by Automated count 32.3 g/dL 32.0-36.[facility] distribution width [Ratio] by Automated count 14.7 % 11.5-14.5 H [facility] Platelets [#/volume] in Blood by Automated count 264 10*3/uL 150-400 [facility] Differential cell count method - Blood [facility] Neutrophils/100 leukocytes in Blood by Automated count 66 % [facility] Lymphocytes/100 leukocytes in Blood by Automated count 23 % [facility] Monocytes/100 leukocytes in Blood by Automated count 9 % [facility] Eosinophils/100 leukocytes in Blood by Automated count 1 % [facility] Basophils/100 leukocytes in Blood by Automated count 1 % [facility] Neutrophils [#/volume] in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 SLG6HCG9CISBBiRkZYDxCSQiNPquBDJqOIWvwo8OFUIxADL4SaErFLQxGTFjSNDdEKoyPJHiPTP3DOL8 FLVdKHOtOT6PUqUhENLqOXNwMWvqKAHrOUIbwy7TXV ImEKLyNszbCwZaDJOnYZTtFMguXQWeAEJ7ORVkINPqJRGqPX7JNoKnHTRyBPnlSGAlMRIgHRPuzp2TXR SxUVSiCYW9WZQqDLDnNNIkPTcjDBSwLWRpIjSwSRPeXKCcZC8XBiByYWPpYXT6ZsCzXMPbHEXsst6JWD SpWBAhATD7JXDnJRJbEVItEEtgWPAsUZL0HUj5TMAc LOOrNG2WGbNcZQIwRIz7TBSeAWOcETLqyl5HVDKySYHgMXq0IfUeROAxYJYjPTylYUClIRSgLKy6QXNg BZPcQQ8ZGhFpAAHqMtN1TELdFOMnYQAsmf4FFVVuMZGtTCOnUBIlLNOtUDOiGNqsEBUcWWU2RDMlDJIr XQApAI4DMhFrOBUkHmfcYtWkGOFoYPUukf1WANOtUF AqXGJ7CxLqZQQtWXQqKOilSIDgFEQhWyS5WTOoLDKlUG1DSpIeZUUhSzL4MSBdLINeGPEist8DYLRxNU SyOmxcWJCjRIYsSPOiJFauMIWwBDCtXFQ4EZYvMSLwRV0GCaIlTBLeCoAfAOBiCHDgBKYqer3DKORoUG OwANV4IXGkJVDhCHCpAChiELLjBQW4HZLcYZQdHSKm PG3ZFvFiXEXzXyE5LFDpXYNoBZYrcn1MXFZuOHHiQRNfJMPrLTRnUNZwKPrbDRRlQVE8Anj4GXTqFJRf EL6QBhYqOAYjBaP0XSPhUDFjDEHwyz6UDEInCGW2VvX1NWTkZRSiVNHeCYdcPMJmVSE0EkanQDOhSGFh OX8KJxWjORWwMVj9PGSbCJPuQECnrl0KPKXxXUX3WX XaDDQjLYZbHNRvCKdtZHWsRBP9Gdq2SECsCFEdMC1LNqAjUJVrGDgqUbLdEEPdELUlhr0NXJOlTZO7CO WzBLXdLHTbLDYoMVmhREDzZYT7DYd1QSDeAFEnFP6RHpPvPPRsFNZ2CFWvSZKcNQAuau4QWHSwENP3SN i0GPTgIWTaHBGqMBeaXRTlEFI6ICpkFXHvCBSdAV6P OrQyYFUiJLXhWattPEYgARCifx9OKWCrQKW5ZDP3VBYmYTTbEIOuMBrpCHRmKPN8JSueIJOjVSHtXF5U LiBnFEFoZFI0KqIqMBTdBIJowr5HMFTuIWG5PMu5CDOmYXWtDXVwPGccLTNrWEW0GFFxKVHrFLXvWL4Q SeRzTLLgPGgvQKGnZCHvQZNuwq5PIJJhKAU8LjH7Zx ZnZSToVEDkLQwnYQXlZZK6Kjs3VXGtDITfLO9HSjBnFIBrPJszRxQuVONvBEBqif3ODEDfZGI8TLT3CA XfTVVlLQUqIWttYLTjZMT2MYi3PIYmNEDtRN2RXbStHGxuLTQEEvt8UHtqH5p8CIP0PD4OG5Qqm1EqCI ZsSDBHBYkkPY5kkfIeYIVwEm1GK6gQQhk2IpKlPUI2 N8GcFZS5KpIaHdrvXQQ5NmXeGwB3ZtVzTE9nFIl2RZQ5MDxpYlQ1UUThARWfV3CbRagaQXWyUAUqHCE2 GyEzLA1AXp1MDyE2RQX1cUFrZh5QRSv6SnyZNmEaBK2LDPj= ID Date Data Source [id number] 11/01/2020 06:34:12 AM [facility] Name Value Range Interpretation Code Description Data Catrachita rce(s) Supporting Document(s) Calcidiol [Mass/volume] in Serum or Plasma 35 ng/mL >30 [facility] ID Date Data Source [id number] 11/01/2020 06:27:22 AM [facility] Name Value Range Interpretation Code Description Data Catrachita rce(s) Supporting Document(s) Cholesterol [Mass/volume] in Serum or Plasma 127 mg/dL <200 [facility] Triglyceride [Mass/volume] in Serum or Plasma 138 mg/dL <150 [facility] Cholesterol in HDL [Mass/volume] in Serum or Plasma 48 mg/dL >50 L [facility] Cholesterol in LDL [Mass/volume] in Serum or Plasma by calcu lation 51 mg/dL <100 [facility] Cholesterol in VLDL [Mass/volume] in Serum or Plasma by calc ulation 28 mg/dl 16-42 [facility] Cholesterol non HDL [Mass/volume] in Serum or Plasma 79 mg/dL <130 [facility] ID Date Data Source [id number] 10/31/2020 02:16:47 PM EDT [facility] Name Value Range Interpretation Code Description Data Catrachita rce(s) Supporting Document(s) [facility] CABRLy4nMiLDCxFhh5OjRkYzJKSlUK4pjso9X2N7rZTcD6NmmVJzx5zkY1NzO9ImXDVoHSLAEY4HzZPa jb2 [file] AwMDAgbiAKMDAwMDAwMDUyMyAwMDAwMCBuIAowMDAw VXYxAxMqDIIjOYAuPF3tNrZgIVDlRSV9IERgRRKiVONpiaNZGNStMGSuLNb9URNvQCQoTARxGBndUDJc VOJxREK0KKGxPQXnQY9pOpKoWSPrZLFbIOIdGNUyGVPjyfECIDZvCXVgVDN9QKJeDQLcSVWoAEbdHGVk AJOzMyf0FTCuBLLeQP4iDtFwEPHqITM2NSQuWWTfEU CgdpBYBSCkVGWlDIK8JbVkPKPhXICcPIkqIBApVFFjSgM2ZGNpIKNdTW9xBiJzQVAfMDV0NbBdJEKdOW WqdhAGUVHcGWEmOGM7IoOwNJGmFYAbYDacTXWaKCUcBBPkZON5WGT7ZMUpRgDeYKecNMDHMUqML1Ubdv CeWaPSE8vbZu1oXdNzQTYYO0Wsg9ZsUGRpUWBHYs7+WaC1HOM1tVUcOtgpZVe8PHksFDFWDb== ID Date Data Source [id number] 10/31/2020 02:16:32 PM EDT [facility] Name Value Range Interpretation Code Description Data Catrachita rce(s) Supporting Document(s) [facility] OAXAHi1vImPSQiCmu2SbMxKrNSYaUA5vgau7X0Y2fXXhZ2IhsJHfr4fqL0YrX0LiYBTqULFZFS5JsNRj jb2 [file] fvP/rw8t3//f6v/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+++vTDR2+2VK/L75VP /+df/qnld1N6uOs//Z4w7316uAH3fD2al//xp+/++sN3P/+eiS0mKklgL/5rA/c4vf/zn3/6+M3+Zf6i yHmp3/10Jt0Hrzm9gPjpOF/PP3z/p3//+Yc/gKby46xlxTaPGhVhk249nJY/+vFXf/v37/+Gbo6Snw4D 8buvv/vf37/Yy5//7gnXH61/LRfzN2+NWEgzw5jrnS 2Bh573xC4d2YS4vBDP+er9Z+/xln9j7m1g05Hi/+TTT7/69svXsuXNUOjNDO+eI/3cgB1ToJymvwUlzG JnYL2RIA8bs1DdElM2ZHMwh1ErDAtjFPc3zDHqAZoahnDnq7OlfxkoX9Lmi0TqNlWuOPMmFePvKew0QK HoIhK5hGTsMlRvIMRxT9SpXGDwPdC5LcDsNFYJUE9R YXJlbnQgMiAwIFI+MqTiFV3emcdsJEZjz8BzXRnpIHscWBMeY9W2cBiuEBQnO9JjlM88VTVhR8YoidV9 MYT9SCOvGoIgQIPfiNJjMAHkXHS+SyPaOG7cykxwTSVij4XiQTpkGWV4xL1vGNvLWIPVUQoMCFflZiW4 s06bujIQJYMgOHTpGH6YuwYoeGofpaSaaYQfDZP3Ji HwQBN0YJmmAZS3WIQMEKEcGBRdAAOmKHMuW6JrxUalMDlALFFEDWdHVGsxNfKxa0U1ZDCmkdDCCMLUJ4 3aLInRUpXALIkaHZV3NYXhUPdvY7A8UngoL1GjOR6SV7FeETFyEXVLTFLwltTaNX0FqrHmlH7jYVkPAV QMSKyPUDgyYxS7c59qtbOFDBBoPKWdWYddWNLiACRr AFOnVMSqBQFfELPlZDOsBJ3XZ8MrLWPwFZOOAWK0u7UjKLDijxcxmdcvXo9omzIeVrg+WtjdZUSwy1Wb LUgeZ0M7bWLyY9HxQ6NlIJ3HgHLwEKmjRGInFMEbFTCyG917pgBjYY3+LO3zx1RrLgzlGIGIWEGsFNAq YWDhTQG5EwYaJEEqXBMtBDCeAgR1ZzImCgNOVEHdGQ E0OCU8GIBoZKZwJGUjDIbcHHDuRLV2EkAzUGXpQUEmII4yKvPmEGAqYpn6XJZhNPTuTXYeutDDAILfCV VvZZHoDOA4ZGUzCZRuGAqtHZLdXWYmPEM0SETuXYHsLN6uFcLpWUPgHTAiExsuZRDsZHZaqqQQEHZuKQ XhMRN5NzSpBWGqLSGsRAtiALZmDEWqQor4LXAwAVAh QK0kThRfERIuDXS7JEciBBDuGSNbxeNISAPeEWSoPOIySiMbQHGiIXIpRIhgPXMnQRMnPiFiTIVgPQIb YW8iOxTuPUQlVUA1RBWwJTHtNYQevtGDYXZcSPEbILy0BWGfACDuRPAtPMkbTPRbITYuABE9JFSfUHFq OA5aGoNyTVBeHYWiOLRpPKWxIGRnveMUSLPhOHZhQL C3OPZzZMZlAIDdUTnkMSYeXLFzQlh9YZAdLTTiFP4fMeMtCRNkYIB6PGEpOAMlUSLwilCSYFLyOWWrTT QvUiJoMFTnTWFzNOhgXNZjMNQkEvR2QHUdBSDrEP0tIhAkRYXxGCY7WtPzWOFyZPJmfmBNMNBxRENoNZ V5CdXvDMXxMLMmSTujODNfHUWmSLCqPHB5RRT1GXHq EcZoYEchNYIOXMxSU9AxcfKgKcJGW6jnPe2bMqVtCMZDT8Qjs9YsQZGdEHYPBr3+OxK4ZBO7tHUbLzp6 MDEwNQolJUVPRg== ID Date Data Source [id number] 10/31/2020 01:42:54 PM EDT [facility] Name Value Range Interpretation Code Description Data Catrachita rce(s) Supporting Document(s) Color of Urine [facility] Clarity of Urine [facility] Specific gravity of Urine by Refractometry automated 1.020 1.003 -1.030 [facility] pH of Urine by Automated test strip 6.0 5.0-8.0 [facility] Protein [Mass/volume] in Urine by Automated test strip Neg [facility] Glucose [Mass/volume] in Urine by Automated test strip Neg [facility] Ketones [Mass/volume] in Urine by Automated test strip Neg [facility] Bilirubin.total [Presence] in Urine by Automated test strip Negative [facility] Hemoglobin [Presence] in Urine by Automated test strip Neg [facility] Leukocyte esterase [Presence] in Urine by Automated test strip Negative [facility] Nitrite [Presence] in Urine by Automated test strip Negati [facility] Leukocytes [#/area] in Urine sediment by Automated count 4 /HPF 0 -5 [facility] Erythrocytes [#/area] in Urine sediment by Automated count 1 /HPF 0-3 [facility] Epithelial cells.squamous [#/area] in Urine sediment by Auto mated count 16 /HPF None [facility] Mucus [#/area] in Urine sediment by Microscopy low power field None [facility] ID Date Data Source [id number] 10/31/2020 01:03:00 AM EDT [facility] Name Value Range Interpretation Code Description Data Catrachita rce(s) Supporting Document(s) SARS coronavirus 2 RNA [Presence] in Res piratory specimen by MACKENZIE with probe detection NEGATIVE [facility] This lab was ordered by [facility] a nd reported by [facility]. ID Date Data Source [id number] 10/19/2020 04:43:00 AM EDT [facility] Name Value Range Interpretation Code Description Data Catrachita rce(s) Supporting Document(s) SARS coronavirus 2 RNA [Presence] in Res piratory specimen by MACKENZIE with probe detection NEGATIVE [facility] This lab was ordered by [facility] a nd reported by [facility]. ID Date Data Source [id number] 10/05/2020 12:42:49 AM EDT [facility] Name Value Range Interpretation Code Description Data Catrachita rce(s) Supporting Document(s) Discharge Summary [facility] QKWQHi6uPcWAWcCn60/YWFooECMmc1MxNYquUWr0GQaoIBRcW3IvQDK8rO7iYJU3CJmARvCjIiLcPON8 lbm [file] RjAgMTQgMCBSDQogICAgICAvRjEgMTcgMCBSDQogIC OrOVVnKeGmBlCdVTWTMLqnXYTxVQMgCnOnKpFuWRCRBLykMXNiXWGoTkZgIlEqCOCAEj9BAuStBFVaZY 0kxqQupMC0CNL+At6UHGHmKA9OoKQMJ0KxkBEqHGmdZ3VEUT1CJAM8XE2WgPOoER0RvCMPK6ApmRClSd 3jHQUbc8LmBj1xY0JKXOMVCXRtISeaKTjyODAzYAz6 A5W9SMFsF6XAG446kSYspYk6Tv5wQ6MPJYaCIfCuRGfiNMjxEXVzDNo3I4D3ZJBgG3XHT0JlFlWhibZl Y2U+TuMxMMKCZB5CNKWICBo6M7S7rVCqG1C1vKrWhUA2BM2SGR7FgESbqXAgu09+UyTRWbPzYGThZ9NL TZNORiUhSHhiBKzjOCBsTCy2L3X4MGYwF7MVI8owO5 h0ZW4+PyAYQlUpHTYzEp7KNrNrLg7RWhQpWP4syp3AUumlUGXsZkiUTiy4Y1ukqtp0wRPtQhV1D3N5Vh O2fAJsMZ7GE9B6eBTjSVZ0VIRgeCQ+Br6Lc2UpCEYxHWg1X1koADKnITPmAvRbgA49E++4mxlxfAS9F9 p9JWYEpWEwcGhLbtGaA4sBTRH7u8R2AAk/Ea1NCKN1 rMu0hNFqEGQjGYe0mY7nmZe6ApKfLC00HWFfAZyeoP7aKhm0S8Qro3HyVe6aFo2xsFTfDd4NKqZpVXN5 uuMiTdFMNvA3aThhjxebYDB2I9q7pII9Sd52d7bmdlRad1TkFyY2RFbfIRMqMaAjjbEuSOZ7seFswE4f tjIwRs4SHDKuXQryhmHfTaHUAj3GNnHaCQ60MpusaX 1ldGE+DQogICAgICAgICAgICAgICAgICAgICAgICAgICAgICAgICAgICAgICAgICAgICAgICAgICAgIC AgICAgICAgICAgICAgICAgICAgICAgICAgICAgICAgICAgICAgICAgICAgICAgDQogICAgICAgICAgIC AgICAgICAgICAgICAgICAgICAgICAgICAgICAgICAg ICAgICAgICAgICAgICAgICAgICAgICAgICAgICAgICAgICAgICAgICAgICAgICAgICAgICAgICAgDQog ICAgICAgICAgICAgICAgICAgICAgICAgICAgICAgICAgICAgICAgICAgICAgICAgICAgICAgICAgICAg ICAgICAgICAgICAgICAgICAgICAgICAgICAgICAgIC AgICAgICAgDQogICAgICAgICAgICAgICAgICAgICAgICAgICAgICAgICAgICAgICAgICAgICAgICAgIC AgICAgICAgICAgICAgICAgICAgICAgICAgICAgICAgICAgICAgICAgICAgICAgICAgDQogICAgICAgIC AgICAgICAgICAgICAgICAgICAgICAgICAgICAgICAg ICAgICAgICAgICAgICAgICAgICAgICAgICAgICAgICAgICAgICAgICAgICAgICAgICAgICAgICAgICAg DQogICAgICAgICAgICAgICAgICAgICAgICAgICAgICAgICAgICAgICAgICAgICAgICAgICAgICAgICAg ICAgICAgICAgICAgICAgICAgICAgICAgICAgICAgIC AgICAgICAgICAgDQogICAgICAgICAgICAgICAgICAgICAgICAgICAgICAgICAgICAgICAgICAgICAgIC AgICAgICAgICAgICAgICAgICAgICAgICAgICAgICAgICAgICAgICAgICAgICAgICAgICAgDQogICAgIC AgICAgICAgICAgICAgICAgICAgICAgICAgICAgICAg ICAgICAgICAgICAgICAgICAgICAgICAgICAgICAgICAgICAgICAgICAgICAgICAgICAgICAgICAgICAg ICAgDQogICAgICAgICAgICAgICAgICAgICAgICAgICAgICAgICAgICAgICAgICAgICAgICAgICAgICAg ICAgICAgICAgICAgICAgICAgICAgICAgICAgICAgIC AgICAgICAgICAgICAgDQogICAgICAgICAgICAgICAgICAgICAgICAgICAgICAgICAgICAgICAgICAgIC GkNESkMAHzISRsBLScZONvDVKuVYGiKVGmDKUlRAAoRHNpQSFwLUXhVJRkJABlTCUrQPMvWLFkESx7H3 kvKWWxMCFtNG9dQPh6Xq8+BMsTCjBuCPC5owWloU2N FB8qr2YeQIjkWMKdm3XbPNn1EJ8JDXTfZDyiGL3XORrgrj4PHUJgBAJthTENt8cqPrIkGKU9VBKhSnlt SP3OEKPxV2yxpkKoNTHoDGWFDMpiILMRSClkKFGULANuYCEiZxVjZCtmGF9Lo0NnhOL5DQc+Wv6EBO3w p8HrOTszFBWnIV6kaa5CKCfPSdXgG0DyiuT5WDLgVS FtUs6IUTZtRNHiuDQaXCPuOFVUXeUjQ1HapM39YWJWGp6+ZPyilgSuKubUYbDjYBOnr6LuEDb5EZ7NDW OdBKx3xRFpGIewO7ajgcxyZZB3nU8oyjjoWjtcLIelxCLdjSDCME7bwXMwPJ3OIIN3ZOIkQv6tWGRrVC O7NcPmXDEDPI0UNKKsKZAnvIZeKZRcTNZVVD2HWOpm KAG6RRQoiyXgdAFvADytNB5TVHVdsyAdSrxdRNZRAQp+Fs8KLT6vm7AnSYniOPTlQE3bbf3CVHjWRuTs T1B0oKOtM7A0KLqyHn0WKNGsJUDwQweeZYVHLCgbUM5XSQ8khdE1OP3WkAIhKTDiYXNfwHZeXAe7C25l cATrZOsaZK6YVFV+Sharon+To8BMGHhSKYhMDIiPtUfFU FSAbOdL7DyP4NBc9ByB6FaBK11tBgjwyUsPNeaDH3GQS2eNVWjCQGGRC4FcUMwqX9vrlObPBXyJLFHTa TlZ46qoFYrXIDcHPL4BPYqLk7LLJQeO2PdftLiyGisjnRmZHNlCEJKTN1ZJKddksGkpSUscEmtCI60iK ecJU0SAm7CZdFhPJ2cfm2LmCXhGh1HWDPfFh7NOQLa WTKzZNCjIMD0WIZiQiEeHUraLUUkWBUpMGE2SETdBWYxZK4OQwTaZSGnCFp8SHCnRPAgWIHdjf6HDFXk QEJkAQEpRATbGSOtGRZdKRvrZOOpPSCiRRI7GUQhDUNgGS7VEsCmRWWzHWEvUxhgCLJzNNVnot4HKGSv PPCeFYN6GCGmGLXuXLEjNUgoKSAlONC3Gdb3BTFvJV NkEJ0IOrCcVDBzPMm8QWZkAAXoOWJvdb9ZQRFaOZHuRVY4UCEvFWCnURArFRosOAFtTRDgZOW7IZUeHF DwJH8VCcKhWWHlEKO9VBTtOEXxIYThzr1DUXSqDULcWeT3JdVaTFVoHBRlTFonAJLjEJGtYsA4LTUpUV SzTW6DDsLuSHEcQQW0VPZnNEWpYBGryr5YHLWzLYAk JJCoOgCfKGEoNEFhFAubKVHfMWZ5UXd1UDIsKCAjYO9RJhKkEPXoJCYpSVmtTKKgRAWbrh5WKPYbPGQg OUG2QqPyTQUwKWPwORowUZCaIZT0YdK4KBPoXOTaKZ4TSzEsSTWbFRL0NxvxLEAqBZAbwi5RMTDkLJIo IxyzGXGfBHZzOXFoDTzrRUCpOPB8Lxa9BTPpHMYxYG 0LNaOjEWCjCOu0PUBySIWmHRNbwd1JZUXmXYYsWPK5NTJzYACgSMUkFOczFSRzGGI2GNP3MAHzBCMfRS 2SAjDfXKJnZRuoAtvvHKLbLFAcjw8LGNLcCVNeANWzZVEnOAUdVWCrOSgaAFYgFIC3BWi4ZRCaQEBzBS 5CFnLkWKHcJrOiJyNdKDVoPBFgzh4HPHGwVYVkEYGg YxFuTJRtWZQgYMvzGYGsGEMkJCP8RFIvEJNkWY7JRnUmCCrdBSQUQrb6TVxhX2l3RRCcOo3IA4Bgo8Af FuVmSJQOPTdmNX3zkgNqJSQwSo2UN2lIOrnfCKN6KkN5HPX8LlClQDReGMXpR3O4SYJlZtJ3FYM2Uz4y ZVN1LAseRhC0ZVYuL5OzCdM9BSDgPBc4HuZ1FwMiNh KpYfGkSG0KMh5FLlB5MQY4mTAhZh6DNfY6EHSCShYsSA9OVKr= ID Date Data Source [id number] 09/28/2020 12:45:49 PM EDT [facility] Name Value Range Interpretation Code Description Data Catrachita rce(s) Supporting Document(s) ED Provider Note [facility] TYHKWt1kOfKTSeBf90/GTMxrQOPeb0SrMPvcMFf7CPouWNXlI7FyWAE4iL2yPZP7CHfFTtLgUqNbFHE4 lbm [file] 3kv30jdIfUbX0/FGtrbhQido/rp1SD6UNRSS1UTBDLTYQ7AF/zxWmMr86dyySDxSZ+jose m/oMTJ3pVSm [file] [place]/wnOrIKbQZ09T0pqCr3XcKTSaKEZ8n5EJDlLM9oskMZZZRQhx334QpEfRVYIdADYUYJmFTT8jm7a2 [file] PuKMw0O10erQJxWJglJY2CLWZ+Sharon+Do6YKTGvSHYm MFVmAaIuLWXEUzWgC3EfF1OXj2WrY6KdOL89lQhbzbQwQLacSO6AHY3vPORgUMUAZT8PjWBkfX5oskS3 BaUxIYGXAcBkD11rcORhPIIhQDC8RYLyVo3KWMRdQ3KvsiKbtTpuviOvHVQbFYDHGK2ZOGnowlGzhYMi kAllFS77eKgqEZ4EWv8OGlHeRA0yty8CqZUeQk4EUR O4Ni6GICBnTIKmVAGtEUF0BOBvSlYgTBgcLGIkGTMfCQQ0ITKnQDEmRP8GFpPdUSYuVSSiLSfhMHRyYJ Mjjm8MRIQsITP5Wvg9IJHyMOOoAJCfOXbiBREmCOKaAPK6FCNmFIZoGI2NSrCgBGLiJJG6MlDeWLIgPN Stvs2MCBKlTHUySzghBZFjXDWfMMQuTRpeFAEdDPY0 DVq8FLAuFNQaLM1TNxBrZVRtMWWkOYCoMGSuBBJmtd5SUCXlGVFzAXC5ZUAuGGZvEDBcSDxiDKObPKJ0 JnEsUHFbZJQyRI9ZPrCzSPFwXMF8QPWbKMOaKRNqgj9SPHUtONMkMbD6YpBdTBVwUCGwBYlzOROmZXW1 LXwnSCJxFXIxIG6NXlWdKELpUJSkEmaiZTRcGYSupk 3MXXUaJBTaMLqqLBVrNUImMDDrUWucRBUuMEJ6FLB4RAPfTGItWM7MPuYdDQEqHvE9CQJkPMWtIFNwyz 3QZKXcAJZnHJO9CSVaDNQaFDEfQAiqAXInYYS7VRR0HOTtDPMzDP3KZeFuXGUqTlHiKKRgXRVhCQSxhe 9JHWDcRJUoRPQ3BVOrAMJlXYPeZFmsXYYpCAC1JMb3 LKCyCPXsPW4AOqWlTRMlPuS5BKXuDHBiMLEywl4OHEFhTZIgCmf3KVQqCBXdVTIkIFzoYBViBUL5Xuam MATxBCAkBJ5TOiHuAUPmHgE5BxbqCUKuJJWryi8VUXKgVVJrFVAhDIJpFMSsYBFiKOczIOIyLRD9TwH1 ZXEwAQLoUF3VSnAzHMWbDrbrQKsgJUSiFDYkra6NMU MuKBNzNJN9DTFiVOHfNRCvZNnmGQPzAYF0BzA0BLAeDWUvNQ3MIpOeGNUqYPS2LcZdQFEmHRRlca5TVT PdBCB7LDdrTCAfEMPaUUPgTJlrCLInBMHwYQU8NSQuCALeSU2CNtSeOMJfHVR4TkRsWXBwNUYogh9GKJ ZiCQO6IiG4MyIuBDGmLSPmAXieNOKvGWBdLaU1QEVx YSQkBW5FXzIjIBNgODI0IFZoOMHyFWEgbp4ZHXOnASN8YOBkRLChNGTqWYHxSQeaCRThROS7FoPtQTNl RNVuPU6LNpLnULGxBOG1LuVoZBRqOOHxlo2OMOAuXXD9EBqqVfBeEIAtALMeFVveEPYqUVO2EeLhWSUs XBVgCO2JZsGgBAVdLAG6BEqwRJQmEYKzyw5HVHJlEY F5BiRhKhXfQCUcLCFaYDpyLLQiRDI7POM6HRLhHGWkZB0ZWlTbYVDgWOm1SyIfUVZjBKMpvg0LSIQdZD H7PYU9ICLoYOIbGPOaWFiaMNStISE1LzKbLAQeNCEeFA7ORnRrMPCuOKweTJajNJMgTAAplm4ONQOaNV T4KIH7HHHzLWOwORLvUUchXRCfTXI2DbBjJHReNNHc SP8HHcIzMFOkWYe8SRZwZNNwCTCizv4AGYCqGWU1CPGsCrOcKFYuZLHcLDxbHCGiQFT4Pzs0ZBDfQQYn TD4JHaCfONjnVJIKMus4PWnlN3w9WHD6Dz5XV7Dlf5SjESFuDMAGDLdjSP3redQuRLXxUk9HW7xQSyy4 AoZsX0SsIjS0EFdtNdD0TLSaYLDbZwbuUoKrY8AoIN 1rTGm9RlBaJRXzUKj1MWT9Aot6TVRoHOJbT4NtLHI6NLX1TcLyIL7GWr9DAuH1YJQ6kNDwMp3WDVm6Ky SAStWtXZ1FJXw= ID Date Data Source [id number] 09/28/2020 08:12:55 AM EDT [facility] Name Value Range Interpretation Code Description Data Catrachita rce(s) Supporting Document(s) Valproate [Mass/volume] in Serum or Plasma 42 ug/ml 50-100 L [facility] ID Date Data Source [id number] 09/27/2020 08:31:56 AM EDT [facility] Value Range Interpretation Code Description Data Catrachita rce(s) Supporting Document(s) Ammonia [Moles/volume] in Plasma 69 umol/L 11-51 H [facility] ID Date Data Source [id number] [facility] Interpretation Code Description Data Catrachita rce(s) Supporting Document(s) Bicarbonate [Moles/volume] in Serum 22 mmol/L 22-29 [facility] Chloride [Moles/volume] in Serum or Plasma 107 mmol/L 98-107 [facility] Creatinine [Mass/volume] in Serum or Plasma 0.72 mg/dL 0.50-0.90 [facility] Glucose [Mass/volume] in Serum or Plasma 90 mg/dL 70-140 [facility] Potassium [Moles/volume] in Serum or Plasma 3.8 mmol/L 3.4-5.1 [facility] Sodium [Moles/volume] in Serum or Plasma 139 mmol/L 136-145 [facility] Urea nitrogen [Mass/volume] in Serum or Plasma 18 mg/dL 6-20 [facility] Anion gap 3 in Serum or Plasma 10 mmol/L 8-15 [facility] Osmolality of Serum or Plasma by calculation 289 mosm/kg 275-300 [facility] Creatinine/Urea nitrogen [Mass Ratio] in Serum or Plasma 25 [facility] Calcium [Mass/volume] in Serum or Plasma 8.3 mg/dL 8.6-10.0 L [facility] Glomerular filtration rate/1.73 sq M pre dicted among non-blacks [Volume Rate/Area] in Serum or Plasma by Creatinine-based formula (MDRD) >6 0 [facility] Glomerular filtration rate/1.73 sq M pre dicted among blacks [Volume Rate/Area] in Serum or Plasma by Creatinine-based formula (MDRD) >60 [facility] ID Date Data Source [id number] 09/25/2020 06:37:56 AM EDT [facility] Name Value Range Interpretation Code Description Data Catrachita rce(s) Supporting Document(s) Bicarbonate [Moles/volume] in Serum 24 mmol/L 22-29 [facility] Chloride [Moles/volume] in Serum or Plasma 107 mmol/L 98-107 [facility] Creatinine [Mass/volume] in Serum or Plasma 0.85 mg/dL 0.50-0.90 [facility] Glucose [Mass/volume] in Serum or Plasma 90 mg/dL 70-140 [facility] Potassium [Moles/volume] in Serum or Plasma 4.0 mmol/L 3.4-5.1 [facility] Sodium [Moles/volume] in Serum or Plasma 138 mmol/L 136-145 [facility] Urea nitrogen [Mass/volume] in Serum or Plasma 15 mg/dL 6-20 [facility] Anion gap 3 in Serum or Plasma 7 mmol/L 8-15 [facility] Osmolality of Serum or Plasma by calculation 285 mosm/kg 275-300 [facility] Creatinine/Urea nitrogen [Mass Ratio] in Serum or Plasma 18 [facility] Calcium [Mass/volume] in Serum or Plasma 8.4 mg/dL 8.6-10.0 [facility] Glomerular filtration rate/1.73 sq M pre dicted among non-blacks [Volume Rate/Area] in Serum or Plasma by Creatinine-based formula (MDRD) 88 mL/min/1.73m2 >60 [facility] Glomerular filtration rate/1.73 sq M pre dicted among blacks [Volume Rate/Area] in Serum or Plasma by Creatinine-based formula (MDRD) >60 [facility] ID Date Data Source [id number] 09/24/2020 05:14:28 AM EDT [facility] Name Value Range Interpretation Code Description Data Catrachita rce(s) Supporting Document(s) Leukocytes [#/volume] in Blood by Automated count 8.2 10*3/uL 4-10 [facility] Erythrocytes [#/volume] in Blood by Automated count 4.54 10*6/uL 4.1- 5.3 [facility] Hemoglobin [Mass/volume] in Blood 13.3 g/dL 11.5-15.5 [facility] Hematocrit [Volume Fraction] of Blood by Automated count 41.0 % 3 6-45 [facility] Erythrocyte mean corpuscular volume [Entitic volume] by Auto mated count 90.3 fL 80-96 [facility] Erythrocyte mean corpuscular hemoglobin [Entitic mass] by Automated count 29.4 pg 27-33 [facility] Erythrocyte mean corpuscular hemoglobin concentration [Mass/volume] by Autom[facility] 32.5 [facility] width [Ratio] by Automated count 14.5 % 11.5-14.5 [facility] Platelets [#/volume] in Blood by Automated count 248 10*3/uL 150-400 [facility] Differential cell count method - Blood [facility] Neutrophils/100 leukocytes in Blood by Automated count 60 % [facility] Lymphocytes/100 leukocytes in Blood by Automated count 27 % [facility] Monocytes/100 leukocytes in Blood by Automated count 9 % [facility] Eosinophils/100 leukocytes in Blood by Automated count 3 % [facility] Basophils/100 leukocytes in Blood by Automated count 1 % [facility] Neutrophils [#/volume] in Blood by Automated count 4.91 10*3/uL 1.8-7 .0 [facility] Lymphocytes [#/volume] in Blood by Automated count 2.20 10*3/uL 1.2-4 .0 [facility] Monocytes [#/volume] in Blood by Automated count 0.74 10*3/uL 0-0.8 [facility] Eosinophils [#/volume] in Blood by Automated count 0.28 10*3/uL 0-0.5 [facility] Basophils [#/volume] in Blood by Automated count 0.07 10*3/uL 0-0.2 [facility] Nucleated erythrocytes/100 leukocytes [Ratio] in Blood by Automated count 0 /100{WBCs} 0-0 [facility] ID Date Data Source [id number] 09/24/2020 05:24:02 AM EDT [facility] Name Value Range Interpretation Code Description Data Catrachita rce(s) Supporting Document(s) Bicarbonate [Moles/volume] in Serum 24 mmol/L 22-29 [facility] Chloride [Moles/volume] in Serum or Plasma 109 mmol/L 98-107 [facility] Creatinine [Mass/volume] in Serum or Plasma 0.87 mg/dL 0.50-0.90 [facility] Glucose [Mass/volume] in Serum or Plasma 92 mg/dL 70-140 [facility] Potassium [Moles/volume] in Serum or Plasma 4.1 mmol/L 3.4-5.1 [facility] Sodium [Moles/volume] in Serum or Plasma 140 mmol/L 136-145 [facility] Urea nitrogen [Mass/volume] in Serum or Plasma 16 mg/dL 6-20 [facility] Anion gap 3 in Serum or Plasma 7 mmol/L 8-15 [facility] Osmolality of Serum or Plasma by calculation 291 mosm/kg 275-300 [facility] Creatinine/Urea nitrogen [Mass Ratio] in Serum or Plasma 18 [facility] Calcium [Mass/volume] in Serum or Plasma 8.4 mg/dL 8.6-10.0 [facility] Glomerular filtration rate/1.73 sq M pre dicted among non-blacks [Volume Rate/Area] in Serum or Plasma by Creatinine-based formula (MDRD) 86 mL/min/1.73m2 >60 [facility] Glomerular filtration rate/1.73 sq M pre dicted among blacks [Volume Rate/Area] in Serum or Plasma by Creatinine-based formula (MDRD) >60 [facility] ID Date Data Source [id number] 09/23/2020 04:52:46 AM EDT [facility] Name Value Range Interpretation Code Description Data Catrachita rce(s) Supporting Document(s) Leukocytes [#/volume] in Blood by Automated count 7.2 10*3/uL 4-10 [facility] Erythrocytes [#/volume] in Blood by Automated count 4.52 10*6/uL 4.1- 5.3 [facility] Hemoglobin [Mass/volume] in Blood 13.4 g/dL 11.5-15.5 [facility] Hematocrit [Volume Fraction] of Blood by Automated count 40.6 % 3 6-45 [facility] Erythrocyte mean corpuscular volume [Entitic volume] by Auto mated count 89.8 fL 80-96 [facility] Erythrocyte mean corpuscular hemoglobin [Entitic mass] by Automated count 29.7 pg 27-33 [facility] Erythrocyte mean corpuscular hemoglobin concentration [Mass/volume] by Automated count 33.0 g/dL 32.0-36.0 [facility] width [Ratio] by Automated count 14.7 % 11.5-14.5 [facility] Platelets [#/volume] in Blood by Automated count 247 10*3/uL 150-400 [facility] Differential cell count method - Blood [facility] Neutrophils/100 leukocytes in Blood by Automated count 58 % [facility] Lymphocytes/100 leukocytes in Blood by Automated count 30 % [facility] Monocytes/100 leukocytes in Blood by Automated count 8 % [facility] Eosinophils/100 leukocytes in Blood by Automated count 3 % [facility] Basophils/100 leukocytes in Blood by Automated count 1 % [facility] Neutrophils [#/volume] in Blood by Automated count 4.14 10*3/uL 1.8-7 .0 [facility] Lymphocytes [#/volume] in Blood by Automated count 2.19 10*3/uL 1.2-4 .0 [facility] Monocytes [#/volume] in Blood by Automated count 0.58 10*3/uL 0-0.8 [facility] Eosinophils [#/volume] in Blood by Automated count 0.23 10*3/uL 0-0.5 [facility] Basophils [#/volume] in Blood by Automated count 0.06 10*3/uL 0-0.2 [facility] Nucleated erythrocytes/100 leukocytes [Ratio] in Blood by Automated count 0 /100{WBCs} 0-0 [facility] ID Date Data Source [id number] 09/23/2020 05:10:49 AM [facility] Name Value Range Interpretation Code Description Data Catrachita rce(s) Supporting Document(s) Bicarbonate [Moles/volume] in Serum 23 mmol/L 22-29 [facility] Chloride [Moles/volume] in Serum or Plasma 104 mmol/L 98-107 [facility] Creatinine [Mass/volume] in Serum or Plasma 0.80 mg/dL 0.50-0.90 [facility] Glucose [Mass/volume] in Serum or Plasma 86 mg/dL 70-140 [facility] Potassium [Moles/volume] in Serum or Plasma 4.0 mmol/L 3.4-5.1 [facility] Sodium [Moles/volume] in Serum or Plasma 134 mmol/L 136-145 L [facility] Urea nitrogen [Mass/volume] in Serum or Plasma 14 mg/dL 6-20 [facility] Anion gap 3 in Serum or Plasma 7 mmol/L 8-15 [facility] Osmolality of Serum or Plasma by calculation 278 mosm/kg 275-300 [facility] Creatinine/Urea nitrogen [Mass Ratio] in Serum or Plasma 17 [facility] Calcium [Mass/volume] in Serum or Plasma 8.5 mg/dL 8.6-10.0 [facility] Glomerular filtration rate/1.73 sq M pre dicted among non-blacks [Volume Rate/Area] in Serum or Plasma by Creatinine-based formula (MDRD) >6 0 [facility] Glomerular filtration rate/1.73 sq M pre dicted among blacks [Volume Rate/Area] in Serum or Plasma by Creatinine-based formula (MDRD) >60 [facility] ID Date Data Source [id number] 09/22/2020 05:25:54 AM [facility] Name Value Range Interpretation Code Description Data Catrachita rce(s) Supporting Document(s) Leukocytes [#/volume] in Blood by Automated count 7.3 10*3/uL 4-10 [facility] Erythrocytes [#/volume] in Blood by Automated count 4.41 10*6/uL 4.1- 5.3 [facility] Hemoglobin [Mass/volume] in Blood 12.8 g/dL 11.5-15.5 [facility] Hematocrit [Volume Fraction] of Blood by Automated count 40.0 % 3 6-45 [facility] Erythrocyte mean corpuscular volume [Entitic volume] by Auto mated count 90.7 fL 80-96 [facility] Erythrocyte mean corpuscular hemoglobin [Entitic mass] by Automated count 29.1 pg 27-33 [facility] Erythrocyte mean corpuscular hemoglobin concentration [Mass/volume] by Automated count 32.1 g/dL 32.0-36.0 [facility] width [Ratio] by Automated count 14.6 % 11.5-14.5 [facility] Platelets [#/volume] in Blood by Automated count 255 10*3/uL 150-400 [facility] Differential cell count method - Blood [facility] Neutrophils/100 leukocytes in Blood by Automated count 54 % [facility] Lymphocytes/100 leukocytes in Blood by Automated count 33 % [facility] Monocytes/100 leukocytes in Blood by Automated count 9 % [facility] Eosinophils/100 leukocytes in Blood by Automated count 3 % [facility] Basophils/100 leukocytes in Blood by Automated count 1 % [facility] Neutrophils [#/volume] in Blood by Automated count 3.99 10*3/uL 1.8-7 .0 [facility] Lymphocytes [#/volume] in Blood by Automated count 2.37 10*3/uL 1.2-4 .0 [facility] Monocytes [#/volume] in Blood by Automated count 0.65 10*3/uL 0-0.8 [facility] Eosinophils [#/volume] in Blood by Automated count 0.21 10*3/uL 0-0.5 [facility] Basophils [#/volume] in Blood by Automated count 0.06 10*3/uL 0-0.2 [facility] Nucleated erythrocytes/100 leukocytes [Ratio] in Blood by Automated count 0 /100{WBCs} 0-0 [facility] ID Date Data Source [id number] 09/22/2020 05:48:42 AM EDT [facility] Name Value Range Interpretation Code Description Data Catrachita rce(s) Supporting Document(s) Bicarbonate [Moles/volume] in Serum 24 mmol/L 22-29 [facility] Chloride [Moles/volume] in Serum or Plasma 108 mmol/L 98-107 [facility] Creatinine [Mass/volume] in Serum or Plasma 0.78 mg/dL 0.50-0.90 [facility] Glucose [Mass/volume] in Serum or Plasma 95 mg/dL 70-140 [facility] Potassium [Moles/volume] in Serum or Plasma 3.9 mmol/L 3.4-5.1 [facility] Sodium [Moles/volume] in Serum or Plasma 139 mmol/L 136-145 [facility] Urea nitrogen [Mass/volume] in Serum or Plasma 12 mg/dL 6-20 [facility] Anion gap 3 in Serum or Plasma 7 mmol/L 8-15 L [facility] Osmolality of Serum or Plasma by calculation 288 mosm/kg 275-300 [facility] Creatinine/Urea nitrogen [Mass Ratio] in Serum or Plasma 15 [facility] Calcium [Mass/volume] in Serum or Plasma 8.3 mg/dL 8.6-10.0 L [facility] Glomerular filtration rate/1.73 sq M pre dicted among non-blacks [Volume Rate/Area] in Serum or Plasma by Creatinine-based formula (MDRD) >6 0 [facility] Glomerular filtration rate/1.73 sq M pre dicted among blacks [Volume Rate/Area] in Serum or Plasma by Creatinine-based formula (MDRD) >60 [facility] ID Date Data Source [id number] 09/21/2020 02:54:18 PM EDT [facility] Name Value Range Interpretation Code Description Data Catrachita rce(s) Supporting Document(s) [facility] HNNWKa8sJnFJWuYe75/FVMrnHPHqk7RsTFbbRRd8ZOigTCGzG7DqUNV5bA0mHRF0HVcGEyCuVfDuFESs [facility] [file] c7VeCyXExgTJPOIh1Q ID Date Data Source [id number] 09/20/2020 08:26:52 PM EDT [facility] Hospital Name Value Range Interpretation Code Description Data Catrachita rce(s) Supporting Document(s) Consultation [facility] DCDLPs9hEzOGUaCh76/AYItrVACgd9VrTCpeXGr2OVxxRTWzN8IgTBA9dC3zYGC2UAfWTyAmWfWtRDF6 lbm [file] Sc9Xi5XtukF8cqEdRUbqYSG8OO0PJYURT4XCVf== ID Date Data Source [id number] 09/20/2020 11:36:03 AM EDT [facility] Hospital Name Value Range Interpretation Code Description Data Catrachita rce(s) Supporting Document(s) Consultation [facility] EKCRBa9vQzPZUjWi29/UULswZQPac6FnAJylWFe6TBzqWWYrP0RkBCB6wJ5gJEG7MOlRHqArOpOjKSA9 lbm [file] ID Date Data Source [id number] 09/19/2020 02:20:12 PM EDT [facility] Hospital Name Value Range Interpretation Code Description Data Catrachita rce(s) Supporting Document(s) Consultation [facility] PGKQIi1yIeSHKmRs58/LSXdkLSPbh0WnSCgkDPj9RSmnHDSyS8QiUYF5hS2aVCM3DYeAWuXfRiAhQUC7 lbm [file] ICAgICAgICAgICAgICAgICAgICAgICAgICAgICAgICAgICAgICAgICAgICAgICAgICAgICAgICAgICAg ZPGcYTTaOUArQYPrCOWpQXKxCVNaYBAgXJTyRYFuVSVkDELeTA1BJVGoBBIpSJNjJEXnOPImXRHlLMOz ICAgICAgICAgICAgICAgICAgICAgICAgICAgICAgIC ZsXHGnJXKrJAPyWAZjYHMwWHAjYRErKRUlONYfGHDxFJBpFWWpMTEzMLUtTVSwAD7EXZIkSOLqFPLjGK AgICAgICAgICAgICAgICAgICAgICAgICAgICAgICAgICAgICAgICAgICAgICAgICAgICAgICAgICAgIC UsIPKgETQvJLPkLECfBGKfTABqQTDiLDLqMMWiHK5Y ICAgICAgICAgICAgICAgICAgICAgICAgICAgICAgICAgICAgICAgICAgICAgICAgICAgICAgICAgICAg MGRlZZSwEZOeGZWgOIZaBMOzSOXbLRLqDKBqNXBuIUUjATWfVDRtCB4DYHZkQUIaNGMvQCYpOGNpZGLp ICAgICAgICAgICAgICAgICAgICAgICAgICAgICAgIC KzBEFjAFEuXWEeKZHnFKMlIGNnVDAqDTEwAYDiQNSgORByAKEyFHRgVXDrABBzMZIwYA4APLLvGYKpSU AgICAgICAgICAgICAgICAgICAgICAgICAgICAgICAgICAgICAgICAgICAgICAgICAgICAgICAgICAgIC AgICAgICAgICAgICAgICAgICAgICAgICAgICAgICAg JA1AEQSpQJFiUSTzYAWgFTBzFIKkICKaFUQqFAGkBOKlFQKeZVUbTEUbQSKgABGkTFOeNWMwGVLgUYCn YIOrCOPsRIQoMSPaXFPhRXGhAMVlTMYaTZQsCSFjGBMyAQZpZRUgBDNyHO9PYEQiRVCoSBBmWYHqWNHh ICAgICAgICAgICAgICAgICAgICAgICAgICAgICAgIC IaVNRzRIGlAPYiNVKtXDPuIJIxGTGtUFRyHDVqBWStBSHbDJEtXBQpJSOzSELsLEDoTPHcXN3QRYQrCA AgICAgICAgICAgICAgICAgICAgICAgICAgICAgICAgICAgICAgICAgICAgICAgICAgICAgICAgICAgIC AgICAgICAgICAgICAgICAgICAgICAgICAgICAgICAg GHXjQS3ZFKLoKCPqHPAqXBIfSUVlKAZxDFLzCSWzEOOuILPfVTXeCCSfVTMsYJAsUJXqZXRdXBRmGKHg DEPnCFMyRPJtLAIoVYLeGJXpUCWjANZuBXQjHZYuIPFmBKYtYGClJQStROJqBA9CAD82wATjt2F8FASy CM4mfci/Rv0ARYseagRnbNAbYB3CGaKoNU8bhj6HFv LjOJ6izo6NLNpRKsMeR4S5bITuQZWaLVGMItIyK90aFAmuPy39ZGlkRRHuPhHmUXu7Aq2VHyIsG4wyEG ZpJjA3BUMcHiQ0VLZvItUbUFntMF0Oy0PznJQbBKd+Xh3ZTP2bn5TiXRwiQzYoZX2ikh2WLJuRXhSqV9 WfzmC6LWJvACEhPl2JUDHhZEKhsPNqMxCcITTWRfJg K0EroN87KSIPOa7+MOyqmjCvHcmLSsRqVOEna5CqFDa9AM6MZQUrNWk5rLTxN65vx0WbrVTzGyetFpG1 gKTzKW4bQHFop2LoZZTOfWWfcOYmFKCgWY1fNW3sTDNbYHBoSgL8VIYAYG3MUJLsMANynUYoLOQjEXRU QA7EKStkMBR0ZBFrwkXgsYKdBQpzAD5BCANumxPhQa IgMCBSDQo+In4CJJ1lo2TbBWdrAKMnKQ1njz2KUVtVNkCxZ5A4sUPdE3L3LMkjXd0VLRCoUJJwJpMdQB CWALosCJ5CUN1ojrD3WR7MwNDuYILiYDBpuLUxHIm9B56ozMGrBAmzZP1FFWA+Sharon+Nt7XEVTeDNPoGS XpSxIoMKUIXaSsF4XyQ4CNh8RaZ7KnHJ25iQjekrZs DMjcFE0TUM9nZXUwFYSPIG0WpVNqrS8eowRdXaMbYJNRWbZeA83jyEDeQTPtZSDtKVYcGs5ZEVLvY9Fm xdLysSfrswCyDDXmRIEMQT8EYGikovCcuUCsmVneMY73fXyiYE9WWg5JLaLfDC1oyy0OkFXhUa0DNBAo OF7EHUCbBTXcDUVrKMN0VDDbJcBxMMvrCWWwLHOdMH K0KCSnAWOfQF5WGcYqOAGtJQJ7OQQzENHsFLZpwb4ZROJdCNKaJzD1XkTiLRAbKWQwJEbuOOXnYOAsIX A5OEViIQGySF6PKaNvMPHmKVL1FASpGIZaVNCnfs6WBLAfKJGnNxN8WOCvRFIjFGTcZEfxLZVgRJU3Kv U5VXPtFRNrTK0FBaNqZUPxKOC3QWipKSVqTADvtb5Z DXLiWRDbEgP3SgWcUGHySXMrUUojXDQwPKL1QHqlRNCnZBQkMF7AIsPgXFDtJOM9TMHxAAUgFAOovq3B IOKkFVYnUqmeOrJbLAJyQWSpENscAKVbFHD4HFW2GLIkTECnNP1JEfCxLYQbZQxpIVIxPLTqBESzss2W UGFoWIZpVGG7ZqPfYRTgCSPmILezVLJmDZB0OuQ5XI LoOXGsCI7URfFgLPXvNRw4RHQlHIRfSSGeab1AZLPrKNMySEDmWoPrXSYhWMTbHVidOMGtNETyLlU9UM XlLYFvQK8BNbWzCASnSNJ2FPTkXXOtKYXyki2MXGZdDQMyXAWcUoHnRYEeXFUjGLbtKBUhWIJyBzb0MI OaNONrNM7HPoPmFUVjPJR6JDghAKZvOHZtzz2NHPSw KZJqWad4LoQpGNEiNCYeIDb2hbBmfTOmIEb1DC9SN9ZaruFvWpCJEm8Gp134ITK6XTRuYm1OR1gmWc4a UVAsDQSSIx7AFPh2TgZ1QLYhLcVqJLQvLCv3PHm8ZwFtBvazMLnqKcspQVW+IDwyNDZhMWNmMTNlYjJk JEnyOOx1LHWhZUPzT5KfM9CjEC3iJGXNOx0+XBsanJAzgJeiUVKUXlBsCJGmAIkzXXIBKh5X ID Date Data Source [id number] 09/19/2020 08:34:13 AM EDT [facility] Hospital Name Value Range Interpretation Code Description Data Catrachita rce(s) Supporting Document(s) [facility] FZWPWo2gKwQNTdQji3KuVeBgXSKyAM7ngzb3D5H8pMAlN1MacLPqh0hlQ7AmB7DiDUOnHTKDSW6PyCSf jb2 [file] AQwEQpXj1ZkUMXAVIUxsoTXTPACRehrqKRCLOCrDLs Ied4OCgRjYIpWwj9UAmXrRXsMba1ITrEuYOrQll1WPiBcRNeUajTNN1eSKLg1QTVV11lIILy/Aj6TGiw OTwInmRFmNHQFt12dcCQzQIKMa1YmYPCTSIXNB6RkGMODJOMUE2R+3SoOdI5RyHlXELN6EPMD9RiKKvB ZHgzNHnGrp1DRrfhl+7N/FsJvl4S+wNHckHb3MeGlF uBNTzv7T2psIOB2pVTf+BlZ5OJtekpFtkEyLOrHk/pzN8ePNCda9JjfFNBWsqkULmrWkeFDzHymMzOpr 1LFkKkCQiwOmsKy5UbonlnfU08gOhQgj3BuT9e0SMR+3OCAtp5LgiEioMUdIyML5W7GliSH7WlU0LSMr NPkM8pM62zNWA6Bb5l3sV54fIjQ7syYfMuVrjZrPGl Ll+VJRduE5BoRCV3ZiSYEVDRrTJtJt1GmPCUvgGVcipTycQIGJjjBx1o0tMiAyzuF8wz4r434RqLf824 KBB0ds073/nrlyQQgJo77d11rpGjX6cO4MQp7gTwJsWKtrI2N+FO4l3H6BYoxy7nH8/zaJMrYE06vgUA nXCg0y31d7obm1trlo6L1X6XB665Q40N9gZD4ysOgt DxzjKQ7/+GF/BdKv10AU3vsbNt+gOlcAdXG1Otfh+DpnyNHhcpE6R+8wCRPrLTvZoXZDRoqwTJZ2ud7s VYA0PIHpjcy4003c/MM+TkFN3gJ4H6L1z8L8bhn2Zoo3AWoZUEjYmSI+JEgkgQucfCFiEpTxEpIpMIdb JyuRknBtECvKYrFqw2XLeGzIEgBrf9HHuBsWUyNfei +HZ2k2uSqXxlx7h9cpp12u+Ysx84+dKrBEKrbBIZhFiz5Z73BkF496dZ/23fQqJODKH8CyEDzsyhWtLT KaB6U57Zda5qy2cCuwOvnDlirRnoFQRKIUkwXwKONBQwGHzWF9wGDI/eDqFAv04AiiMANoCAoG/ZcvkT HtNXCv0WHM/cFmMqm8A/jRPIGH2W6fapJdiuMSHlXd WJZUrycEA8mjue313yK1G6FY37ok3gh03mTQNIoS2S4MMFk/1JWolo5oEBF/py7/rnjOg4h/+O2Ny7/X ql274hm1ZX557/Y6wvlx0n7BXabdszza70PDNp730+dUny9CYsx5e/Ie44U8/br12GAos8w/4nw7Xo6I /ENIvkylT4RyzXhQ/hPjOyueK90+y2Ex/o8oUH8QqH jYVxFclE3veW97h9uZ4rNmjRJc3AkJYMQFBTdk53ZAOllj/HP0c84sbh2SD2yp33XFe69yV42c8wP+7c t5x33iz0W62952pI8Lu+7k8joD6+5bfk7ZocG9f97uYL21sCh/CnK/vni9rU0IVgC9we6DoMsNKW+Yariel ZFO0Z23PLvbh2ko3Nlib9ghS4gV1IQ47cR65f+SC/0 daqbxgWPx6CIq6RC/7WDYRRIII/jO54D+SUtRYx5BS3sYG/Hd2+hOd/eSoR8GfC3R9I33+LPa6LD3tM7 G3RpRuuPJ/7EjJakeXETBZtLuDxBgDSbGkf6T3ueczSqZPNQIxVl4X2fLJG5YNcLnyWg0VN4FuwLUQSE JE2A8G+5SlLdU2Y1V/LZVGGk9c5vLlJ1AGEHVoEzoK OjDqwGAjucFGcksiWJfmhviCWxGZRCZac/ISkb24InTlpAB4gAhe2yDlUFMsah00lj89gp0eJcGtpJvE fE5RutWFh+d0Egw2fC0/moS8ffM5aiG1xysKukUs9qve+MQqxotqqu7XEnVtwXXa3wAKmI9BCdaeh0kz gE5cjyHijoP/gi9/4kMQESJCRIkokUFkEKEOkjpI/G vkyT9tqeFVAYFONkazJYUPxANN3/q1j+EufaA677qB9oF6DvuU5juHjbPR5tCD7woJ57mjg2ZelzjRc+ YRT4wHSSmUrKAXSSp/0vkFEBHvsCSsB5wGOGVYHDtYOquHzmWlupCOAYfE/gOf8B/9DQWGeO81FJj5Ru cRy5/8FXd9aFM/xEj5G0L9SK2WRC/N7/Uule4S00bp 1azojqn6+/EPT4kT7GqoqpO9Ly2po/DibBM6l+Tw6fj8ejuzTU1poaG8TLk0P2d6sjuexIvVyHhim8Q9 Y6h0gdstgZwuvVzdk+M2O6249zltawcybMzqt+M4X3894mylasjNxOipa2K3Y9323xanzxcRkOytu73t t3nuNs/y2cqnTYzp870m7X1lr69jr5unil+7GvtYcK k7Pos53/z1u78nvH85/Y8/u/b42aqqj+jX86CE97Au+AK+gH8/xD4i158t8NiS2Yq3cyBS1Le3Jh3VV+ An+Al+hA08UlIA6VRxIJtn0fuGbNpr7cFfrhNP+HQ9eYzNFuGaGz9FqBl0GpXn5ZNQt5YDSb1N6uK5G/ B+C51huLbdzFbZ5fU5T+RxyJmJ3tH4K+Jot7lOr92N E/wEH/BQjEze47A7TltI8ylkRbrkjTbpu5Shb2lYqF9aTtU6vZgL2xByCV9UwOpKkO/Bn+DPw/frwjH4 Ip9Es8kQq4p4ISGMT/AM7NhbwuBztWpzmKptm8Efa5eVzU5pRrNIkSmHZlSfNT6M7US5Qk4ZW/IG5A3I K1R8UC7R6cU9WXnF/JiYwdE2QgQtA/050Z8T/TnRnx EePeQFjFaGWwHeVn4RfIn8O/Ni6F8Va2G25P4L3vapqvFcl/D1q+t4a6MZtDB9lAmVvkKsMy7TqHD1A/ KX4K7RI6U2IB3P3oq0F+E5J/ez6NigaXZ7Nu8BwYqtgLG7Cq3GxUmidBJ1Br1PlQvabNE1Pz9SdKxw60 T7nXi/13vpzK0/vvcKPccCvoB/8X84OR1IF/wBvqEd JltJhoDviTeEFfYb1YwtSfLohA/qR5RjFfvwsC2pdN1XPLhXr3X/wD/vV+X5WyIC56LNoSOnE3EK8Mmo RVxG9SH73ywzSP/wBXwBH+4R4R7L16gedbFtEiGUwWhCT/F+Dv7R9E5I21mso4FhvdcQbSmrIvMGT21J 8uyf5CdnT9gEd6p/6/iWt/r6nr5xQ4q4aEakbqtTr2 q6IzMvxr+/9G2LM8g6yY5K/ZM5taOC0219econDtB5TAq+4OX7Jq5k43o1uNCiW7cNnrjg7HdY05VSP7 ZD7W/3SuY/0ZIuSBGs7Jh2RY8HB+AX+If2jNQ1gkdnwZD12B2++Dm+5d3Ji/3nC04NyF/B04lNk8z97S 6cCXsXpgC05yzzr0e7Rei/f64d3bP/wS/wz/dIfaL9 ul1y2iJ37kgnpV8N5nR6ncWL19L/953vG8qD7Wo7OcSkTfryjxrgpFVlS2TL4Vq9Rj/jNzB+q367qvh9 0CN02Gb1GQdgB6hj+1lzgD+OEjp11tqK0tHkpCR92Kl11fU1aN/HTT75IyFhdOkQ43jEJ05lF20Wikkf at3FhfaKnsdzdn/28UveK/z0hM4GB2/93muFP2/7ap 4dh0xiZUx4bmArEQ/g4tNwpl27l4YQDx9BmyXB5eCg6vM1HZ6UG160HczOjpDw/X9X69DxfnWGlqS5sr wr7+It1jgh38K6XQX+J+vbuxdxWo8w6qGiZ8gzcgj7oOD2Qo3v6qWxw3weJCoSEfRglBvci6inPzGOa5 A/wD/eprHsq+N2nvzhe/obuS5M8OdvjcE9upH4Hf4M fx6+nNL63BB/yUwLikt0GBBJ5Yp0Z7qO09U83O29NU/yCuSVBL/AL/An+Ge+Hdls29Grzeyi1Bw2W47g tM4X4JjK+5ylgO00J2L3VdubIB/t46c/Zj65uUd4st9B/AL/9Oeh6M/Lvhp9/IzrseyreyyPZV/1sYKv 4I9n/hnLvupjA9/Ad/NhvGE7CvzXd/1118F4J1/41z q+5d3H4E/w5+Hf9tU1+/ien/M+vufnfQy+PvP5vR/mOR7gD/ANfAPf7/l/tel+jgP8AD/BT/Vm8o0Xf1 6OJ/jz8G/7qq+63sw8iK0P9+6X5/iWN/rYz/VPq6Kr0Uh8py6arm/7gLJb8Nn8mcdkFMbZW4Efye+QNy MkAXr0h6CMmo5kW8o83AmHq0c1j+rCbp2Zk8l97S0N P04/X/JQNdq1qvwwog/4JtnZyc2g9DdSj84c1wx9Wgk3So3Th+8R/FcD/quR5//+yPN/f6SD7+AH+Neetu PDeffYUW17p6ZndAk/KAYE+f//qjzf3/UBb6AL+Ar+Ar+sZ9H+6/GoUNq8Vf5uVhnlmG6sJfd/V29glbq 38L3t/D9nfj+Tnx/J+Sd5//ntZimVhS9tLp+qzHxfi ul72L0xZR2Tx6UqItXi/cL/9WA/9wTwaNay1Av/N+81fMvgPdoCSoSp1S/lQjsXDzW20ZN2JG3KE/BL/ AL/Ak+1NNSN4LP1xHPxjYCXek8ffWcEeuac8KM1mZx+azZ98jxYHb0kq23ln3X3dydAu9/PNtgkW8Rbn xefbqrx24JzbY/5Sww7bQ+PvfV83/BdOB8w/kGvoMP eWFfmULetq/5PXzQb7TlsH1ml8Sx7npnk227vfkSZcW+gq/gD/Yhzbt707T/HujPA/8E7NHKeIKEQhAJ B22gPw/054H+SGEyTc3B3E6T/ayVlbAmCUWGVmJWM3iCJL90hOwWeoxjm0/VxwF+gJ/gJ/iQF/FBQ3zQ PR98dSyQ6DOAgLY2Jxg666h+EanhUJ5h8vghDFV65L HzKWe1Shdh5bdobqlg5R+O/tz+qz4+cCgeAB6yq9ClTSu8t2ISh/jHyI2X1VY+KmlC0E3O/FeG+KAhPm gSJgglwsM7y8V0c/trWM5bbU8c2uWU+KAhPmiJ/fuaf0WeYEgXFN4k5O0M9ZaEvPKnqodOnGfJ+KAhPm oCOzyvn6l5sAH5m+L1TkivCbyoLzzCZafdj6m7pET+ fXYwmEkIps0tiX/N+/iWtxb/fkwSl5wbO0/4c53/knf54e+9Hs/emArtsCbZ5P8w8V4i5O9s2Hw/5FXt Y/UB5nmzLyz+a543w918fJQ6Afz25J/x7zZU36kSW55aD05h7uL22/XLatf3bbf+R/J6oyvrv/y6wBfw HZpYV2Hhp/fUr/L16geMZ/WAh74a58/zZV/1OYHzE/ nP7QgSC/OVw75y+K8c/iuH/5aPcScsDvisit3pd7kke3Nz97TpD+pd9pzVr+XLvurzA+0k+InzC+0U+B P8M1+0Wz0HoPPfLxaIjqg+gn/Gr8N/9Ime69F+g+/gB9o5/iuH/8r1+DWdli7vlV41j4+nmXr0DW87J+ /1V/c5WH/kgR891Yiv5v912gX17Luw1y3u65rjV6X4 IaP98/d+jOfYwb/9G/e+oHszxsNf/yg0eYnC153Q7pvf29XdMhwuk/pkZ9jezVlws6004jmaP/uyr/p4 BW9XtHa6ppnKR/uqj+/32+ck77sihk54f6/AWk8tLcqfLbdDJ7sT6J//Pklxh5M0Uz/Al/E2x48ixlxw 89BitgBJX9dMzbs3Ln6qA1ODVoAWN1nPBsU8cQ7p/v VLGygcQ3xTpJ984R9NR1XFYt6aZW9GLbVoWGwHomLKHq75ybCyHizna48pdJ3m3bGdVznVC0ybd3WvZv /AF/AxXyE+6In32/HBxUd/TvTnZV/tY/TPj8o6rot4nd/7XsaKqhumJAZc3knMt/nuk42hdXaJc3bI+A q+gj/VvZYyzu494D57WM1//JOLv/yT6/ier2Yf+zm+ /qHeASu6C/u4wC/wJ/g0B2gIwiJ61q/7TX2u45fOyJ4/+e048moPS8Xd8Jo31/ts779C995pjjcFw4sF cBfiV31VJ6Ba/vY+9nN8y+urzVve+/zePOLYoMgkYZiLZ7Fb5Q/wDXwD/9gD9wxf7aUz274FGX68we5r +Al+gV/g3/Gj27g33ns+vu2ra/Btb0ADR390fuKhYU foSce2Z1nLS0WNGDaEHsjD564WfW+rydG1kaHhu5/Pdz/f8ChP938U9oZe++rqYz/NKv567l6TcdTWpL /jN/OJ88HFLkm87vTGD7/Tz7wgNh3g/sDfZla1eR9OXbNV/An++f7GON/e4Wwa3e1we/LkvnjoUwze5Q dofw2Yl6U+oI7T75UL4ZM6jL4V3l36EUrt/Y0xwT// j8LO/6OwC/wT3w87/udojNrJl9iM+xh8A9/Za4nxrU7h9zR/rax7oS5GcT6T6bPChdjRBfI7WyPzlaH6 uoKv4A/wB/w79gawe/rDkMrt2A86jE/vL7rX35RYXm7M9sPnsM3+7Sz7ah+Dr+Ar+NiZzs1hcDpfc6Fk eKpGkLMcSjSJhXNK8lajPspV+KMwty4YBbmt1C6Ez+ mIry3plWhqj8FxlDlBxaDEUaE9rH/EkQPBs5JxGvTEgS9T0JsT+yrqAl/AF/Ghw7UymwfKqTuyCL3/C1 Hn/3TWij5PZmm/Cqy/kvB7gtZ9X/ed4J/4HqTystyTI7IecuE6fWq/E+J3RakSgC+ qJ+Xni/P237xw5M/oz1l/FPPHumKc/39R2k91U+AK+ gH/nlxjMb4xGy1Ye5Gw5Es55zho/VcJ/lVfi/DI7ZK2QG5N//mbShbsyaZo1II/AV/AV/AH+AN/AP/72 FMgr5/2mBPgB/vm/y5iCqwZ5Dq4M/3x/U8/3N/KHO6HC3VG4EZ+EQ9D46HKcUqkEuzPv6IT7wt6K3PsQ +jfQF6dCEiMddWlJp9KpQWpS5B0Lq0L/D/Rn2FcJ+y nvMnSwo0U6mdDwxgPjUEgQ8G4Lr5J/j/U9LAejKlrRkkPn1GV1AeDa/Fqu1S6I711D84i1DPJ+mHb8sb jco1o6ccmaN8/sOl7+6LPQ3xepph/trOdPP+v504+/Gu1695HJ/EvIT2aOU7QG/DexfzAd/Rn+q3S8Xz /f3/UtEGuBT1iny/ubmMu+lo9b8ANz6uG7L/x5+Mu+ 2sfgC/gC/vp celebrity services/FOvYz/EAf4C//Rfi3pLccSi+yHnir0zCMsv6PkWyPUq7E6KpWYt/X6u5Cgq5CjNcXewg TMzPWH+VWH+VifkZ/qtMvN/E+22696Zqd+9R4nsE+umcN1Wp/JepJOtybScG63OG67ucRJd6tqls2ui3 e4pdi8BVva22//jrso6/LrG+HniBBtmpCum3Brcxyq 29GjvdS8ah7V4/LjoAogZ4DuPc84QIR8yxTv/CAVsug8OXeL/tOVVy5QM8/Ff7+VDzxa8Q0o/vMKX3hF e+a2tHMbcQ10qmJp5acFkreiIu6kr4OfN+xklSh6Zs+7mu45+s6/rk8sobg26Q62//hspY8Xub4+Cf91 vX6c8F+9ghDxWex5I1YrPk3orlf6PaGDjYvMU99aj/ Kjn/F0oU5w/wB/kAVoSRjAmPLjQ0DQ/yyokvFNZfFdZflUzwIS/DA2Is9Xo36boG+qvC+qtSBX+A tG+2c9Em8TR7Mo9b8ZbZtHCqxjq1IoH/CcZjGttNHK1bXLmZV5KZ4BrbDeR3jFp1Fw8Jf/e0jgmdtFu+ 4vxEOwV+gT/BP9/wgcI6JyqHU/AF/NL2UWsv0jGA17 VfyTr/lvda/XrsMwXz6ls9hq0H84vxzr6q4+IRN5Ye7Q3/3H1nurI+fR/79t+Wn/1Q1dlf00YGVohfsZ fwB/j3/Yl1pNokg8/H4N/yxjp/+Z/HaESj7Ry8Hi6ns522v3q2+KznLz/r+Wutb9/G3Yr6Ok4Aa+AP8A m6pc9fgh/1SzKAzQjKJmGwbQ0rZ58a1hL+hrwBeQPy UnGKtQl1h7a9B8KP+Aq+gj/Eg7s679Q6kg7p3uH6inQpz/6Z6M+J/opqrvEDhq18zujme/Yx+WO8pekX octOB6djYmlYK9al/RzOIz6I7rb/VHX+Hso3F0DIv+v755auRXS3IZP9mo8//arzf7+Po6TEn4JAn7GD 0lO02gPeA3HWu73x1dn56sx6c43L+IU1Rv1Ox+CfeH chP0P1/wT7m3S4O/uMv9QvxBAF/ol3z+vE9+p17lVJ45bKeddZdeFsZH/FO4debO68oh5A1sphauWQ/M KeAsuK9Yz0Iz+RM2extk1xdxmU+ruA9n8S28bf1xmLBj21tfu/Uwx8A9/Bd/AD/AAf8mL/4MT+wYn9gx P+qwn/1YT/asJ/NeG/mvBfTfivJvxXE/6rCf/VhP9q za268n+a8F9N+K8m/BjB785r4o4A0O+fpkyClq2XB/sHJ+vyPzdpxnXOprE6R3G+2vcZAzEczKcEzmp4 rVwvi3cQ2z6Mvi/4nVh/NUeBX+NZ2bF06fwX1k5gTN/igxP+qwn/1YT/asJ/NeG/mmbg+3lOO/tDpwX4 NW5NrdCh/cubocV6Pl/27tJrMh6I8K+xvn0i/9V0jF /H+EX+qwn/1YT/bkg4T2n5Z+S/msh/NZH/ajrkdciL/MzC126u9fjFlN+fWH81A/BelJ4IQ03/hRl4v4 H3G3i/JrY15YF+A/05HPzA+WL4DB0D5lL7GrQugYxQzHNwTx/ERA6PthyYK+uvJvYPzjzrzSbWt0+sb5 9Y3z6R/2oi/9VE/quJ/KuP41aj1tqD0NiSmnmrF/sH J/YPTuwfnNg/OLF/cGL/4MT+dIf8d2CV+AN8A9/Ad/Ad/AA/wE/wE3zIC//YTWkiiIca8eCmcjfryjz8 Rj9nhZO0Eg4SkvX/cGL/4MT+wQn/1cT+qVw3meL9PmkDb9/pJ6asjrwgedx80eFj1plVO5ZLQFgl3xz/ V1a4rJXS6TtvjJeyfmbCbJeSIdTgFuzxNepyWaSMGP DSARbtU8ZPfVvRNSn0xPB4vBvAHoO6PlZPxZZL3ItflEfbPEkCtcQoZ3bGf7EDG7mXr0fhHDPAgSX5my V3Pei1FJhji+30f5R4LKqtv+64ugFla+LvlqboHziAhMc9MXIKrpxy5VDiiM5S6ZrVSg516wcdFcCrvu 3qvn8C98BpFZhSyyBoOOyZILS4BNstkPojt1y6ZS5T fCaZ6AYSg+CYai/RGOZiLW0AgxUkHxXApOHYMkd/L7GAIYKQtNdhXmUZyDUokia8dq0l1P+M/PBNt8rq 0NbmAJ9LQrrDxLlogLgpa3DtEZ7fHep8vtm9YRlHNSGSFPMXHlbflsk6zRd1QCZMurTlYYMte8JncC2g v03KFXV7zj9QgYf4vNzHK6VYYf80U7JE11btgwi743 QKUEYTL+Bq7joV2pm6GOuPqKQxfTkr0zU94yNoCwK5FAXeyQnNipw/SU3CjobiL7arswjKAskHMUOn9q RuemIqVOwPFIw9Rdv9Vepsb38HpB+R25NU7FwLJ0g7VJvAQGuqaNBM3gRxSKP0JAWuuDLqK8BnWvPW0E N92jdPVK8zbFqzALY7NXqUSVaQlk0FOsjnyy2VvNHM eaIMJhjZKhHD9aDSu94FPJRLyD0rX1/aC9LSIJvLzxsJ4mBSvTzVPK89H3cRK1ExfeR4oQ5Wnf4ViOpF ZWSVfU7gcxLt7v+CMUEGaX1yqGw9DDWKKpevGCWYZOKdG0D8lQMBWDlwwK1NjI8Ub2wEdEhKMByQoMTF x536A1a2Rt6DGRyXFwJARDGQXl4Y210a8tAwXA2TYW LIWawina1+L7AFLCRTBbVchajX1p+OK0B7VUR/uNx0o4kaWe3LaDbOOHhzG8+TxVQ0kcTukbwc5mf/RB XiRdCYZVJZGB8orGHJHWsoIMUwSw0gzzi/gYDdUg6SkdoBTbmWvhdwLyZwsG+IIlJEqINBHdjZqPQiHA T9IPDHLHxkpG4uULyLWLIjyNGfCyAI3fHOy09Lszpc OaRnvv1LqgDRoy7ZpTHaQoRTjzGItAlAToCiw4Qw/rWb2307ricmt7pYpLZJWz/9JoJIEEkiydbwf+GT 7PefpL//TOO+9MAG+MAN+q9HCEJGUbaTO2Xo4+xL3ZkxA/urWhOvjpVUAPGoUwjWCE85x3dUIDaF6LLNy [file] 799edf/hjy0e0yq9817hllF0s9++Eyo563+N3nv/qJ ZH718dXpB4/63qky9jB7r5++/u13b//w7edf/v6Lz7/98qvP/5tzXx/m32vhzRkxq4//8rfrNck3/c37 Q/zq7cMX//VfkJ0uha/93LUxV2/8+kinga/vhy7d/+otbD97XkO8cc50GmHkz7Zu/vvKP2hJj5ebf5v92 6p++/mbl7mNr7fh9O207+df/4JUsEx7/7u0fv/nt11 /+N1e+zIPXlV/85c///se//uyDe883v//99rs//ulP3//1rz98/6e/e/vy+z//8Yc/tv3l72v691++/e XPb/YLrV/ip1YzHyheHI6l//q/aPPeVHS/T//xx1/8Q744Gg1u3tb21++Kj1vkiBm187h/B+htVj/o/P qr97d51tJl40s09otniooq/0uUr8l1/ZM0sAP3sI/e e+qa2IL57bDcZov4+8O///RbyKn3Luq7m9dp52//6f86f46/6vefSDs+ueoo+I7if5Xer0Q24f29/PS9 f/pBsTkuXVdbQ5Ahh5Fc0/3w5//8+7e/fv+fP3zS+moe833gj8ii3TFe9r05eEJ/0/oGf/Pt2x///J8/ /PX/+C1Gc2mk5mt3+mAzs6b0okt4fd868+/e/u1/vT /7H//q9638k8xN+1voq4gJ++ePv/jnj3/vf66DLi7qo30qO3+0fj/qaeuizkyCoeq2ulol/a1VbvPKKh 1u1hoquz1dcn++ff///vAf/3XkPO/tkp9/88XHn9+L5P/1b96/A//7r//0mv53r4+Hf/zhx+//9Mkbnp /gX3z/v/7w/X/88fs//6SFrevwP/3DyCR46F/+8uNn oxo9vgW3NX/6yx8+p02f5ejPXE5wxI/84Q//15//+If3B/iw9Ivvgrp3r3/fp+PPf3L+PY9usi8r//ne s/7ts/96x/f7y6p9fo9tqFyOW+56Ef//p7z+smyq0ax2a+//9m0s5ykTy1/gV70ufFlbDyagYJooQ1jv h/jiphmXE983za4a41+b1pmfv/n2yw/fvg/s5/f5F1 +8f3us076rbPxEdpvv/I4BYG772rrobtOjgBJzGQ6APD7vw1IiIqD2TFJxa0NvPVbfJWh2mXMvSYrdax Wox3IagvgvI6Ufx0XgVfQeONUjIwSwJrb3ICXrWcU1bUGrEeVxFWSuM9LwGPBeUsY5UxXcHHAKDH4UOY JlbnQgMiAwIFI+ArMmTG4prsjxUNVxk4TjGAvgLIhm ZGGfI7R5ePnbVZWfT7GwwO61XRKpS3VtheH5IGN2ZIDbGsIxMMFimDPuGAEuSVW+HmNyWF2iqvhsKESj d4QbLDuyJYN6qX3mKIaFHIFHEBuXEGhuSpU9l00mpySXOKYjQRSpTF5CzkZhdQgsswEzrJAiUYT3FgEi RYU4TfjaLQF5NGJCADWlNMFxYKQtWOKgS1RbeSrdHA mXKAIHLCbAIAgaPvYso0Y9VHNnjiBOUZBGY34wRQfTCqZTUEvrHCP3DOUiRUuxD9S7EeklJ3MnNU9MO7 EsVNTcVJBPNLWgpaHjVB0WdrGypU8rNGzOHGTUALdODKaqLuA3g68deqAQTNHfHFQlWBdnFMFuGOGrOF TsXPDbZGRiYDGnSFHyQJ1QT5CyILHdMLQXMMB1o4Sa NEGztggjfkyfYq6opsGyRbs+MkwlTDCfe3SfIMoaW6E3fWNhX1YhX2WxZQ5GdHOtGLekDOYrTMVoMYTv D291ygNyCA9+EU6up2YcJcejRCWRESCgUOCyTSFzUMU6ZjBlPVSlSQPlQPCpLhV9IdVgFvUTBFQnETA1 QVxnBgPsXFDiHPQiIPptDKNqNPNgWMc9WUIbPOIlBC 6lZrNfDJRpHhC4IsYnEGNsAREplnXWEOMmSDIyDPKhBPZ7SHTlASJnHEtaJMGoCZMdBVJ5AXImRADxDH 8uDlAlHHMxPMWyVztiJAAdADMphxNTLRBjTUEhNPV4MqAbTSLbUILpKJzkMORlTRXvYii2DNWnNLLeIU 3bKxIgNKDqFJA8ROsdPTKbHIFmipGTJNOxLECfTHVh CsDuGXTuRMHmXLluDMFeHALqEhPtYOGdZTWgTZ0zKzLfWIQlDAJ1VPTwTBPtFTKjkoSFTLWnENYsZFm7 QGSeAUOkTQZaTEftFQZyPGJnPJG0SLJdWKXoVA0sHcSsOEGlGQScNUSwNZXgSBZjjkGJBXKpTOHmUDT9 OIWpGSZgWWXwTMwuZKXcWGNnGoy2RMMlYSLbQD1mRk VwOOGvBRI7LUCtLQZaGQQrmfMSXAFqDNM7YKI7JtFnPYTzWUPiQJyfGHXuQQZoPpB4PDEeSQRdDB5aHh XsYWTrJXK8HlOmYLVgRTHryzRRAJSiZAYhIWO2AdNnEYWjOKBrGSshKLYoWNBpVUHxKZL1QIT1XGRqSg WwTSfxBZAMCXeLS6TnugKbSfCDX6pqKr9jMiWoSPNO I1Nig9LzWFYlNUOELl6+MzN1QNH8fUXpHpm3TBh0BCieUAIJYr== ID Date Data Source [id number] 09/19/2020 08:33:57 AM EDT [facility] Name Value Range Interpretation Code Description Data Catrachita rce(s) Supporting Document(s) [facility] IDVMIy3zQcGNIuRrk6IpDgJzJAHdPJ8vxqz9F4B4lBEgJ8TztYRew1gtY2WqH4LsVLAhDANKAP7WiYSo jb2 [file] bank courier+5nuGsTRxI2OtMmaF7zR/yTjs3lse+UNkl1SFei [file] 7cQdj+[id number] 7Wmjz8zmSjBQHwBit7166LljgAl9c212VhkrG16+ZwsvkRZSYGar80YndizexCK0H0tV4SSxYTKilgNz cEkykZaRGJMb5i6nsgnNKQjWumEVjNWEVwU6w0w433rvFEu59KVVyLpGkmmPlytsO2LmwBYs8MYZVKrQ O8V9lEqqUIcBcwskhBhzCGc3LZm/XAPa0KYv9Ix3SV d8TWe2AXUZUpCFz3vDLweNl3AmAnRVKw1lsb/SxTvqGu14JM8nk+AMKWfQJLO6hZoNXkXXWM7ONWn+[place] WsmDwTJhyRLxYt9Z4PzSuGsMqaBh2YQUYJ/lCkGm/SbgbMAnbTp2W2oEj5JHdIxhupiorRerjGGtT/mx WUXR0VSTFJZJ9FFkZnpJh8QwCT2l87VfILOo7cGNZ7 zClyvaR0pCF1bF1f98vqy1emz0tbkwhHg7Q5GrjMPzxawwBBfMhKN9SQoIZr8V+LFIhx+D0SqdDvKftH RTHHDyB6SqFnWP1AYef+YTHgE8pkP+UeHHIgo/LpaqTJ0TzeQXbQy9hKrLZGYVXpwFKevN7qSCdnOyzZ IMaDlQVV6oGtwSuagEQJEqdJzHDUIwbNoPeHJPGhhl mSQzyGAPhsKPRRR+DTVmFzQDR1mg/YiF7dhwXr6LSqnRMvRXVEtYNMcuZTopDgjASWclz6IBComqHrhk OoAfi+w6NHkCYjMdp+joqJyRARLGp8ahkRqIVIZPnrInSnxGQpkHob4z3PhXiqT0vzpDbJKIWy5unY5E +BiEfymxvPB8eBT7inH9HIfYHLdyYMnhTUevL5tSkJ bAh4salJokbCouxKdQ2SX01nnJI/BjEeX+fO6S5SZWLAl4EFLNFWhuq1HAXscD0/IZwtEtqrDLrQwj5g MaS0eLLctKjOer2g79fTb4v1vlGCXQMgNagFMPWNiaJRqErMDl/kTl/kTl/kTl/sQdj+SHzCpMCxr92H jwoDs9QNIONYpASLN8GRIAEFrBPMQoaZNBMQmXGd2O GcVLMOQnFX47OHreRG0z64dHD6dzJPILJM+XkEnfkL7QEJXHg6QndQRoK5suFa9SIjtoOhYWaz9XmxZU FY/aQvLWjKZzrYtRGJNYdjb6HJlKQTBBeoDLRnOreSXs/xXCt4WPnDNmfFMNtYgBMgbFOBFLo7jgq9in f4zim5slwFryoPEXLCD7hoCgPZNq+tNFk3En7E0Tce omuitmXYlLRb8Z3irwBFO/kgh3inSmFa8NlcXECR/tYS9RZYfrvd3P3HaRS9P1YWEVko1wK5F/84rHcg L8X485PPyutkJx3t+AKx7L/vJl2UxVrCtYc+Xg6G5MGz0M8gUr7J7n4Z6e6Z+44rHcovHvvOKxXCHJJE sbvE+hVYEmItvOZP20bwAE1UCf3KtYv/aGXB7L1oNj lMRkMPIMQHg4T597WYeZNqRlkDZEWVxUXbjA1WSTnqEEuY8i+H9HfSSz4i9LSCEoWXvItsztKbbYFTg4 EmQGGAzZrmJtX8PhPkn+WeZVCsyTGeFKCKf4YugGF7XFDnHSYfUWEC0QwDCv4iyCNo3vlFegzvizw2LR rBwadIiaA1MvgXTwRO9++bGcPNivvOKxnDxrPvEIDf RsuuyhxiNoiMOefOBzONYGtI8f1wicPkgB22OSqeOwl/EYi1HAjdiETp4NYkW7MIU2GHgzJCKV5AI58m CmYh99gGOQDgLnMpOEP0RnCW7oG0l6RPhma8S+gmNWwDQsYRxNOgQggXCpTJlvu3bd40ImS54HNPIS8Y MPE7aZ3J0c+F5JartW36NhE92C+V1MktLbL8jjg9IQ MZdSxcW0UBrY3mFBBtlGbQZzn7/KD5rHx4QM43RrOpwtF2NfTLfZX1JaOvsPM7RCh6KegGMrNzeGGQtS CcsEt3LQKh5Z6BKr3MrzPN2ZakSDD2nWYyxSCzJX8aQhxMNCnmk096PHNBPa94/0eRhr65yjbdr95f9h //j60eIVm6/3751bt8jgo9/PpbH8dm/tw3ff/vrr// T89Oocm/Htx3/MqiDL60ymsc8+bszIuguZpFvU1fE8riLWZozex3+1eNDt4ej18pEt0cm2j9/vyP1e99 79r2+//b7048910sXicv6+9xFyZ804++3XX/9u6hdlgfirz/7s4ze/+vDFb9/o5j503P+/+/Lrj2/ffP zumy8//u7DVz+q1HnqdIG7ppC0Usg96pIw0jhta/vt 2y+++fDFv37+4Vomauzzq5n75DQ+Xfv1r7/+9jcfP//yv375+dt3b//tw+8+zi80yfm/fn+yl90j9X+Q ojZP3e6514f44Ty/fr/Vx8//r2/sAqfkw7pqzclAVw8/yygraoJA0Rep/vzvP/71Tz/84e2//8gk4005 4x+//+tff/j+j//l7Yvv//dmA343+7d/bPlv//T2lz +/9d2wlo28o9/1/pl561iq/SddTJeg+TbsT3/6+v5687Di7Cc476/5Uvdc9q/u1t019q3DY48za86/fv 36vU1bSWUGts9KiH8d+7moY5uf0UlcsG0naXHS19ur1/HExi2ST24Dpswf2951G7QJT5+3dz2px1lxn/ jl27ef//LDV5+8mXnGTuUqJf/jlN6vhdYLfUFydOpV E07HUj8zKzh3ELKoT51xcl/8+e///PbX7//+wyelv3+83tZRNq+L/bZ9RSZueitDMs/kb755+/HPf//h r//Mz8x8NzoF89mBg7l/XOZPSz/vw8wc4vmi/tf7s//4lz//eQr2MWtQyt3XOJ3lrnq9g1a7t89q3Pu5 1fy5av+g1EpR38mQ4CD+8vCXUyp+FqOL8qquz7tktc nTp512+/7//eFv/0kt0Od0iP/9+fYniyr5gR/kK08Y4s/x13/4z16ltl4Bh/3hT9//1BS0MG5oO//+f/ 3++7/9+O2ij6PP1qLpis3yn0b++ctf/vTZL3v+5IJToa/+1gpOjZGd2LUidtb/8d/98Pv/+ecff//+AJ +6wp8Bl467/Au3RO1kr+tnbI11/d/+/t6y/vDZb/72 H7//nz9+//e//vj7t1/98Icff//9H98+/+MP3//1+z///of//ZhtTa3a++odpM8f5YnyOH8tgH//S14/ OYXUd5a9ykn/82a97xaSx5/87PDp7ifTNX++Qtu1FAd7+J5+/55+/VT569XjXEo+LukC7ScglYXsd8/e Zugle/1NoWl148//7tw9z10dNM/tV2tXv/5nCtL9HM obvfPwyFWgWZ2CZQ1aj7GeZlC5WQRtr0UvZVevHTv3aOFkVIvqfqXtx2IasxrgV4Ogd6VlHdCjNDZhVy FhTjz7GXTwOsF0lSTiFbDwXLOdA1DlOJWsCkC2JsUqPFJTJD4HZPGrzeSbUeIvZNU+QfOjWT6ytarmSN Sge6TkABdaNOjxHGBfU3V2dJjsGTFuL7BuzE16YUHw Y0PeqaN2GFT3LTRpUbVyVKBmeMUzWJXyHAR+EtFtIK1qaliiFTMwx9FsQKnoNCH0pX9qROeMNVNLHKtR CBiyIbO1m19ziaXLQCLwGBOfMY7RggWyxExgbuZkyMPrHAS0HmNsCSW1AwelCRJ0HMOKBXGuAQZpVLGk XLGmQ2SkqIcnCQiLHQCIXOeLAArvSeNsg9Z5HGJgma DBKMBGJ58mKPtERpPLIAanAPV3YGGzHBxmW9Q4QyvqR4KvTP4CC4FaFTVaKLSIXPVcdgEhXE3NyeIdnZ 9fAZiUGLELDAkMWAwhNsO2b93bixQKVTUiBLUqBDisTCOgQIXbLWOkPVFqWTPcQQGwMCJlMB8NK7XdTJ MpCDZINLL0o1BuWSTrkuwpdfcuKg6pfsXiNof+Pgox XBApo2BaTIhkZ9E0oSPyG9VqM4AcRC3FkFZwCCyxSZZwRUPdJXBkI644ehYrWI7+TV9cz3LvZfnhRRUN NQScDREkIUOuZKS8UjVjIELlDPOsPRQqKvK0GgLeQkHAKYCwJEF6HKacFGVkPSDgTTRsLNdhGAOjDVBu CMr9FHHcCWZfPI6fNfDtMSSrPwZ0QFUvGVThQHRovh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 Fluent in EnglishAdult Risk of Suicide Screenin. In the past three months, have you wished you were or wished you couldgo to sleep and not wake up?: No2. In the past three months, have you actually had any thoughts of killingyourself?: No6. Have you done anything, started to do anything, or prepared to do anything toend your life?: No7.Have you made a suicide attempt in your lifetime (took action to end yourlife)? : NoRisk Assessment - Risk FactorsDiagnoses & Symptoms of Concern: : Psychotic DisorderRisk Assessment - Protective FactorsProtective Factors:: Supportive social network or familySuicide Risk Level:: LowClinical Formulation:: Denies SIFirearmsWas threat made to harm self/others with a firearm: NoDoes the patient own or have access to firearms: NoDiagnosis1. Schizophrenia, unspecified type2. Intellectual delayLabs ResultsLabs Reviewed - No data to displayAssessment / Treatment Plan / Discharge PlanAssessment / Discharge PlanningPlan/Assessment #1: No need for inpatient psych treatment.Plan/Assessment #2: Given support.Plan/Assessment #3: Start Depakote sprinkles 250 mg twice daily, continueZyprexa 10 mg at bedtime and Prozac 40 mg daily.Plan/Assessment Additional Info: Referred for outpatient follow-up.Progress Towards DischargeMDMNumber of Diagnosis or Management Options:[] Minimal [] Limited [] Multiple [] ExtensiveAmount/Complexity of Data Reviewed:[] Minimal [] Limited [] Multiple [] ExtensiveMore than 50% of this Evaluation in:[] Coordination of Care [] Treatment Planning [] Team Meeting [] Discharge Planning [] Other:[] Counseling [] Coping Skills [] Management Options [] Re:[] Medication Review [] Pt challenges need for medication [] Pt fearful of side effects [] Too early to evaluate effect [] No changes [] No side effectsBilling Code: [id number] signed byEverett Handy MD09/11/202031 Name Value Range Interpretation Code Description Data Catrachita rce(s) Supporting Document(s) ID Date Data Source [id number] 08/01/2020 10:20:00 PM EST [facility] Name Value Range Interpretation Code Description Data Catrachita rce(s) Supporting Document(s) SARS coronavirus 2 RNA [Presence] in Res piratory specimen by MACKENZIE with probe detection NEGATIVE [facility] This lab was ordered by [facility] a nd reported by [facility]. ID Date Data Source [id number] 07/28/2020 10:04:00 AM EST [facility] Name Value Range Interpretation Code Description Data Catrachita rce(s) Supporting Document(s) SARS coronavirus 2 RNA [Presence] in Res piratory specimen by MACKENZIE with probe detection NEGATIVE [facility] This lab was ordered by [facility] a nd reported by [facility]. ID Date Data Source [id number] 07/16/2020 10:51:00 AM EST [facility] Name Value Range Interpretation Code Description Data Catrachita rce(s) Supporting Document(s) SARS-CoV-2 (COVID 19) NEGATIVE - SARS-CoV-2 (COVID19) [facility] This lab was ordered by [facility] a nd reported by [facility]. ID Date Data Source [id number] 06/02/2020 08:04:00 PM EST [facility] Name Value Range Interpretation Code Description Data Catrachita rce(s) Supporting Document(s) SARS-CoV-2 (COVID 19) NEGATIVE - SARS-CoV-2 (COVID19) [facility] This lab was ordered by [facility] a nd reported by [facility]. ID Date Data Source PROLACTIN 05/07/2020 12:00:00 AM EST eCW1 ([facility]) Name Value Range Interpretation Code Description Data Catrachita rce(s) Supporting Document(s) 10.9 eCW1 ([facility]) ID Date Data Source PTH INTACT 05/07/2020 12:00:00 AM EST eCW1 ([facility]) Name Value Range Interpretation Code Description Data Catrachita rce(s) Supporting Document(s) 13.8 18.5-88.0 PTH INTACT eCW1 ([facility]) ID Date Data Source VITAMIN D 25-HYDROXY 05/07/2020 12:00:00 AM EST eCW1 ([facility]) Name Value Range Interpretation Code Description Data Catrachita rce(s) Supporting Document(s) 44.8 30.0-100.0 TOTAL 25(OH) VITAMIN D eC W1 ([facility]) ID Date Data Source FSH & LH EVAL 05/07/2020 12:00:00 AM EST eCW1 ([facility]) Name Value Range Interpretation Code Description Data Catrachita rce(s) Supporting Document(s) 4.1 eCW1 ([facility]) 5.6 eCW1 ([facility]) ID Date Data Source INSULIN LEVEL 05/07/2020 12:00:00 AM EST eCW1 ([facility]) Name Value Range Interpretation Code Description Data Catrachita rce(s) Supporting Document(s) 11.3 2.6-24.9 eCW1 ([facility]) ID Date Data Source Comprehensive Metabolic Profile (CMP) 05/07/2020 12:00:00 AM EST eCW1 ([facility]) Name Value Range Interpretation Code Description Data Catrachita rce(s) Supporting Document(s) 11 7-18 BLOOD UREA NITROGEN eCW1 ([facility]) > 60.0 >60 GLOMERULAR FILTRATION RATE eCW 1 ([facility]) 0.96 0.55-1.30 CREATININE FOR GFR eCW1 ([facility]) 79 70-100 GLUCOSE, FASTING eCW1 ([facility]) 110 98-107 CHLORIDE LEVEL eCW1 ([facility]) 140 136-145 SODIUM LEVEL eCW1 ([facility]) 4.5 3.5-5.1 POTASSIUM SERUM eCW1 ([facility]) 26 21-32 CARBON DIOXIDE LEVEL eCW1 ([facility]) 0.2 0.2-1.0 BILIRUBIN,TOTAL eCW1 ([facility]) 12 7-37 AST/SGOT eCW1 ([facility]) 22 12-78 ALT/SGPT eCW1 ([facility]) 91 45-117 ALKALINE PHOSPHATASE eCW1 ([facility]) 9.2 8.5-10.1 CALCIUM LEVEL eCW1 ([facility]) 1.4 1.2-2.2 ALBUMIN/GLOBULIN RATIO eCW1 ([facility]) 6.7 6.4-8.2 TOTAL PROTEIN eCW1 ([facility]) 3.9 3.2-5.2 ALBUMIN eCW1 ([facility]) ID Date Data Source LIPID PANEL (CARDIAC RISK) 05/07/2020 12:00:00 AM EST eCW1 ( [facility]) Name Value Range Interpretation Code Description Data Catrachita rce(s) Supporting Document(s) Cholesterol [Moles/volume] in Serum or Plasma 135 <200 CHOLESTEROL LEVEL eCW1 ([facility]) Triglyceride [Mass/volume] in Serum or Plasma by calculation 75 <150 TRIGLYCERIDES LEVEL eCW1 ([facility]) 2.368 <5 CHOLESTEROL RISK RATIO eCW1 ([facility]) 78 NON-HDL-C eCW1 ([facility]) Cholesterol in HDL [Moles/volume] in Serum or Plasma 57 >40 HDL CHOLESTEROL eCW1 ([facility]) Cholesterol in LDL [Mass/volume] in Serum or Plasma by calculation 63 <100 LDL CHOLESTEROL eCW1 ([facility]) ID Date Data Source FREE T4 & TSH PANEL 05/07/2020 12:00:00 AM EST eCW1 ([facility]) Name Value Range Interpretation Code Description Data Catrachita rce(s) Supporting Document(s) 2.250 0.358-3.740 THYROID STIMULATING HORM ONE eCW1 ([facility]) 0.73 0.76-1.46 FREE T4 eCW1 ([facility]) ID Date Data Source CORTISOL BASELINE 05/07/2020 12:00:00 AM EST eCW1 ([facility]) Name Value Range Interpretation Code Description Data Catrachita rce(s) Supporting Document(s) 3.4 4.3-22.4 eCW1 ([facility]) ID Date Data Source ADRENOCORTICOTROPHIC HORMONE 05/07/2020 12:00:00 AM EST eCW1 ([facility]) Name Value Range Interpretation Code Description Data Catrachita rce(s) Supporting Document(s) 10.2 7.2-63.3 eCW1 ([facility]) ID Date Data Source [id number] 05/07/2020 12:00:00 AM EST eCW1 ([facility]) Name Value Range Interpretation Code Description Data Catrachita rce(s) Supporting Document(s) Hemoglobin A1c/Hemoglobin.total in Blood 5.5 HEMOGLOBIN A1c eCW1 ([facility]) ID Date Data Source CBC with Differential 05/07/2020 12:00:00 AM EST eCW1 ([facility]) Name Value Range Interpretation Code Description Data Catrachita rce(s) Supporting Document(s) 10.0 4.0-10.0 WHITE BLOOD COUNT eCW1 ([facility]) 4.64 4.00-5.40 RED BLOOD COUNT eCW1 ([facility]) 14.2 12.0-15.5 HEMOGLOBIN eCW1 ([facility]) 44.7 36.0-47.0 HEMATOCRIT eCW1 ([facility]) 96.3 80.0-96.0 MEAN CORPUSCULAR VOLUME e CW1 ([facility]) 31.8 32.0-36.5 MEAN CORPUSCULAR HGB CONC eCW1 ([facility]) 30.6 27.0-33.0 MEAN CORPUSCULAR HEMOGLOB IN eCW1 ([facility]) 12.7 11.5-14.5 RED CELL DISTRIBUTION WID TH eCW1 ([facility]) 67.3 36.0-66.0 NEUTROPHILS % eCW1 ([facility]) 278 150-450 PLATELET COUNT, AUTOMATED eCW1 ([facility]) 7.0 0.0-5.0 MONO % eCW1 ([facility]) 23.5 24.0-44.0 LYMPH % eCW1 ([facility]) 0.5 0.0-1.0 BASO % eCW1 ([facility]) 6.7 1.5-8.5 NEUTROPHILS # eCW1 ([facility]) 1.4 0.0-3.0 EOS % eCW1 ([facility]) 0.1 0.0-0.5 EOS # eCW1 ([facility]) 2.4 1.5-5.0 LYMPH # eCW1 ([facility]) 0.1 0.0-0.2 BASO # eCW1 ([facility]) 0.7 0.0-0.8 MONO # eCW1 ([facility]) ID Date Data Source [id number] 02/20/2020 01:58:04 PM EDT [facility] Current Problems: Other and unspecified diseases of the oral soft tissues (ICD- 528.9) (XED13-X30.89)Dental caries (ICD-521.00) (POV46-R80.9)Current Medications: * ATROVASTINE * CALIUM * VIT [...] mask, hair covering, gown Pt was cooperative.NV: 6MContreras Manley DDS by miguel (02/21/2020 8:33 AM): Contreras Duran DDS by miguel (02/21/2020 8:33 AM): Tooth Notes and Watches: Assessment & Plan Problems:Added: Other and unspecified diseases of the oral soft tissues (ICD-528.9) (ICD10- M79.89)Medications:ATROVASTINECALIUMVIT DPROZACLEVOTHYROXINEZONISAMADEONFIAllergies:* ROSEPHINE (Critical)* CECHLOR (Critical)* LAMECTORAL (Critical)Orders:Oral Surgery Referral [[id number]] Name Value Range Interpretation Code Description Data Catrachita rce(s) Supporting Document(s) Procedure Social History Code Duration Value Status Description Data Source(s ) Smoking 03/01/2021 12:00:00 AM EDT Never Smoker completed Never S moker eCW1 ([facility]) Smoking 12/11/2020 12:00:00 AM EDT Never Smoker completed Never S moker eCW1 ([facility]) Smoking 12/11/2020 12:00:00 AM EDT Never Smoker completed Never S moker eCW1 ([facility]) Smoking 12/11/2020 12:00:00 AM EDT Never Smoker completed Never S moker eCW1 ([facility]) Alcohol intake 10/31/2020 12:00:00 AM EDT Current non-d sultana of alcohol (finding) completed Current non-drinker of alcohol (finding) [facility] Tobacco use and exposure 10/31/2020 12:00:00 AM EDT Never used co mpleted Never used [facility] Smoking 10/31/2020 12:00:00 AM EDT Never smoker completed Never s [facility] Smoking 09/18/2020 12:00:00 AM EDT Never Smoker completed Never S moker eCW1 ([facility]) Smoking 09/18/2020 12:00:00 AM EDT Never Smoker completed Never S moker eCW1 ([facility]) Smoking 09/18/2020 12:00:00 AM EDT Never Smoker completed Never S moker eCW1 ([facility]) Smoking 09/18/2020 12:00:00 AM EDT Never Smoker completed Never S moker eCW1 ([facility]) Smoking 09/18/2020 12:00:00 AM EDT Never Smoker completed Never S moker eCW1 ([facility]) Smoking 09/18/2020 12:00:00 AM EDT Never Smoker completed Never S moker eCW1 ([facility]) Smoking 09/18/2020 12:00:00 AM EDT Never Smoker completed Never S moker eCW1 ([facility]) Alcohol intake 09/18/2020 12:00:00 AM EDT Current non-d sultana of alcohol (finding) completed Current non-drinker of alcohol (finding) [facility] Smoking 09/18/2020 12:00:00 AM EDT Never Smoker completed Never S moker eCW1 ([facility]) Smoking 09/18/2020 12:00:00 AM EDT Never Smoker completed Never S moker eCW1 ([facility]) Smoking 09/18/2020 12:00:00 AM EDT Never Smoker completed Never S moker eCW1 ([facility]) Smoking 09/18/2020 12:00:00 AM EDT Never Smoker completed Never S moker eCW1 ([facility]) Smoking 09/18/2020 12:00:00 AM EDT Never Smoker completed Never S moker eCW1 ([facility]) Smoking 09/11/2020 12:00:00 AM EDT Never Smoker completed Never S moker eCW1 ([facility]) Smoking 09/11/2020 12:00:00 AM EDT Never Smoker completed Never S moker eCW1 ([facility]) Smoking 09/11/2020 12:00:00 AM EDT Never Smoker completed Never S moker eCW1 ([facility]) Smoking 09/11/2020 12:00:00 AM EDT Never Smoker completed Never S moker eCW1 ([facility]) Smoking 09/11/2020 12:00:00 AM EDT Never smoker completed Never s moker [facility] Smoking 07/27/2020 12:00:00 AM EST Never Smoker completed Never S moker eCW1 ([facility]) Smoking 07/27/2020 12:00:00 AM EST Never Smoker completed Never S moker eCW1 ([facility]) Smoking 07/27/2020 12:00:00 AM EST Never Smoker completed Never S moker eCW1 ([facility]) Smoking 07/27/2020 12:00:00 AM EST Never Smoker completed Never S moker eCW1 ([facility]) Smoking 07/09/2020 12:00:00 AM EST Never Smoker completed Never S moker eCW1 ([facility]) Smoking 07/09/2020 12:00:00 AM EST Never Smoker completed Never S moker eCW1 ([facility]) Smoking 07/09/2020 12:00:00 AM EST Never Smoker completed Never S moker eCW1 ([facility]) Smoking 05/07/2020 12:00:00 AM EST Never Smoker completed Never S moker eCW1 ([facility]) Smoking 05/07/2020 12:00:00 AM EST Never Smoker completed Never S moker eCW1 ([facility]) Smoking 05/07/2020 12:00:00 AM EST Never Smoker completed Never S moker eCW1 ([facility]) Smoking 05/07/2020 12:00:00 AM EST Never Smoker completed Never S moker eCW1 ([facility]) Smoking 05/07/2020 12:00:00 AM EST Never Smoker completed Never S moker eCW1 ([facility]) Smoking 05/07/2020 12:00:00 AM EST Never Smoker completed Never S moker eCW1 ([facility]) Vital Signs ID Date Data Source UNK Name Value Range Interpretation Code Description Data Source(s) Body weight 231.4 [lb_av] 231.4 [lb_av] eCW1 ([facility]) Body weight 104.96 kg 104.96 kg eCW1 ([facility]) Body height 65 [in_i] 65 [in_i] eCW1 ([facility]) Body mass index (BMI) [Ratio] 38.50 kg/m2 38.50 kg/m2 eCW1 ([facility]) Heart rate 89 /min 89 /min eCW1 ([facility]) Respiratory rate 20 /min 20 /min eCW1 ([facility]) Body temperature 99.2 [degF] 99.2 [degF] eCW1 ( [facility]) Systolic blood pressure 124 mm[Hg] 124 mm[Hg] e CW1 ([facility]) Diastolic blood pressure 82 mm[Hg] 82 mm[Hg] eCW1 ([facility]) Body weight 207 [lb_av] 207 [lb_av] eCW1 ([facility]) Body height 65 [in_i] 65 [in_i] eCW1 ([facility]) Body mass index (BMI) [Ratio] 34.44 kg/m2 34.44 kg/m2 eCW1 ([facility]) Heart rate 88 /min 88 /min eCW1 ([facility]) Respiratory rate 20 /min 20 /min eCW1 ([facility]) Body temperature 97 [degF] 97 [degF] eCW1 ([facility]) Systolic blood pressure 120 mm[Hg] 120 mm[Hg] e CW1 ([facility]) Diastolic blood pressure 84 mm[Hg] 84 mm[Hg] eCW1 ([facility]) Diastolic blood pressure 79 mm[Hg] 79 mm[Hg] [facility] Systolic blood pressure 123 mm[Hg] 123 mm[Hg] [facility] Body temperature 36.39 Deloris 36.39 Deloris [facility] Respiratory rate 17 /min 17 /min [facility] Body height 165.1 cm 165.1 cm [facility] Body weight 94.348 kg 94.348 kg [facility] Body mass index (BMI) [Ratio] 34.61 kg/m2 34.61 kg/m2 [facility] Oxygen saturation in Arterial blood by Pulse oximetry 98 % 98 % [facility] Heart rate 64 /min 64 /min [facility] Diastolic blood pressure 62 mm[Hg] 62 mm[Hg] eCW1 ([facility]) Body weight 208 [lb_av] 208 [lb_av] eCW1 ([facility]) Body height 65 [in_i] 65 [in_i] eCW1 ([facility]) Body mass index (BMI) [Ratio] 34.61 kg/m2 34.61 kg/m2 eCW1 ([facility]) Heart rate 84 /min 84 /min eCW1 ([facility]) Respiratory rate 18 /min 18 /min eCW1 ([facility]) Body temperature 96.7 [degF] 96.7 [degF] eCW1 ( [facility]) Systolic blood pressure 118 mm[Hg] 118 mm[Hg] e CW1 ([facility]) Body weight 215 [lb_av] 215 [lb_av] eCW1 ([facility]) Body height 65 [in_i] 65 [in_i] eCW1 ([facility]) Body mass index (BMI) [Ratio] 35.77 kg/m2 35.77 kg/m2 eCW1 ([facility]) Heart rate 93 /min 93 /min eCW1 ([facility]) Respiratory rate 18 /min 18 /min eCW1 ([facility]) Body temperature 97.9 [degF] 97.9 [degF] eCW1 ( [facility]) Systolic blood pressure 104 mm[Hg] 104 mm[Hg] e CW1 ([facility]) Diastolic blood pressure 68 mm[Hg] 68 mm[Hg] eCW1 ([facility]) Body weight 211 [lb_av] 211 [lb_av] eCW1 ([facility]) Diastolic blood pressure 72 mm[Hg] 72 mm[Hg] eCW1 ([facility]) Body height 65 [in_i] 65 [in_i] eCW1 ([facility]) Body mass index (BMI) [Ratio] 35.11 kg/m2 35.11 kg/m2 eCW1 ([facility]) Heart rate 105 /min 105 /min eCW1 ([facility]) Respiratory rate 18 /min 18 /min eCW1 ([facility]) Body temperature 98.1 [degF] 98.1 [degF] eCW1 ( [facility]) Systolic blood pressure 118 mm[Hg] 118 mm[Hg] e CW1 ([facility]) Body weight 204 [lb_av] 204 [lb_av] eCW1 ([facility]) Body height 65 [in_i] 65 [in_i] eCW1 ([facility]) Body mass index (BMI) [Ratio] 33.94 kg/m2 33.94 kg/m2 eCW1 ([facility]) Systolic blood pressure 124 mm[Hg] 124 mm[Hg] e CW1 ([facility]) Diastolic blood pressure 78 mm[Hg] 78 mm[Hg] eCW1 ([facility]) Body weight 205.0 [lb_av] 205.0 [lb_av] eCW1 ([facility]) Body height 65 [in_i] 65 [in_i] eCW1 ([facility]) Body mass index (BMI) [Ratio] 34.11 kg/m2 34.11 kg/m2 eCW1 ([facility]) Heart rate 102 /min 102 /min eCW1 ([facility]) Respiratory rate 18 /min 18 /min eCW1 ([facility]) Body temperature 98.2 [degF] 98.2 [degF] eCW1 ( [facility]) Systolic blood pressure 122 mm[Hg] 122 mm[Hg] e CW1 ([facility]) Diastolic blood pressure 80 mm[Hg] 80 mm[Hg] eCW1 ([facility]) ID Date Data Source [id number] 02/25/2021 04:39:08 PM EDT [facility] Name Value Range Interpretation Code Description Data Source(s) WEIGHT RECORDED 240 lb 240 lb [facility] Body height Measured 65 in 65 in [facility] ID Date Data Source [id number] 11/17/2020 03:51:26 PM EDT [facility] Name Value Range Interpretation Code Description Data Source(s) TRANSFER FROM [facility] ID Date Data Source [id number] 11/02/2020 11:10:30 AM EDT [facility] Name Value Range Interpretation Code Description Data Source(s) WEIGHT RECORDED 195 lb 195 lb [facility] Body height Measured 63.78 in 63.78 in [facility] PREFERRED NAME Shabnam Haque [facility] PREFERRED NAME Shabnam Haque [facility] TRANSFER FROM [facility] PREFERRED NAME Shabnam Haque [facility] ID Date Data Source [id number] 10/31/2020 10:20:26 AM EDT [facility] Name Value Range Interpretation Code Description Data Source(s) PREFERRED NAME Shabnam Haque [facility] TRANSFER FROM [facility] PREFERRED NAME Shabnam Haque [facility] ID Date Data Source [id number] 10/05/2020 12:42:49 AM EDT [facility] Name Value Range Interpretation Code Description Data Source(s) PREFERRED NAME Shabnam Haque [facility] WEIGHT RECORDED 195.77 lb 195.77 lb [facility] Body height Measured 65 in 65 in [facility] Patient Treatment Plan of Care Planned Activity Planned Date Details Description Data Source (s) quetiapine 25 MG Oral Tablet [Seroquel] 02/26/2021 12:00:00 AM EDT eC ([facility]) Propranolol Hydrochloride 10 MG Oral Tablet 02/26/2021 12:00:00 AM EDT eC ([facility]) Fluticasone Propionate 50 MCG/ACT 02/25/2021 01:00:00 AM EDT [facility]) Ketoconazole 2 % 02/25/2021 01:00:00 AM EDT [facility]) Albuterol Sulfate (2.5 MG/3ML) 0.083% 02/25/2021 01:00:00 AM EDT [facility]) SEROquel 25 MG 02/25/2021 01:00:00 AM EDT [facility]) Propranolol HCl 10 MG 02/25/2021 01:00:00 AM EDT [facility]) Zonegran 100 MG 02/25/2021 01:00:00 AM EDT [facility]) Onfi 10 MG 02/25[facility] Synthroid 25 MCG 02/25/2021 01:00:00 AM EDT [facility]) Azelastine HCl 0.05 % 02/25/2021 01:00:00 AM EDT [facility]) Calcium-Vitamin D3 600-400 MG-UNIT 02/25/2021 01:00:00 AM EDT [facility]) Fluoxetine 20 MG Oral Capsule 11/03/2020 12:00:00 AM [facility] Chlorpromazine hydrochloride 50 MG Oral Tablet 11/01/2020 12:00:00 AM [facility] Eucalyptol 0.92 MG/ML / Menthol 0.42 MG/ ML / methyl salicylate 0.6 MG/ML / Thymol 0.64 MG/ML Mouthwash 10/31/2020 01:03:39 PM [facility] Chlorpromazine hydrochloride 25 MG Oral Tablet 10/31/2020 01:03:18 PM [facility] albuterol (PROVENTIL HFA) inhaler 2 puff 10/31/2020 12:08:21 PM [facility] Ondansetron 4 MG Disintegrating Oral Tablet 10/31/2020 10:24:29 AM [facility] Aluminum Hydroxide 40 MG/ML / Magnesium Hydroxide 40 MG/ML / Simethicone 4 MG/ML Oral Suspension 10/31/2020 10:24:23 AM EDT [facility] Magnesium Hydroxide 80 MG/ML Oral Suspension 10/31/2020 10:24:21 AM EDT [facility] Acetaminophen 325 MG Oral Tablet 10/31/2020 10:24:12 AM EDT [facility] Azelastine hydrochloride 0.5 MG/ML Ophthalmic Solution 10/01/2020 12:00:00 AM EDT eCW1 ([facility]) olanzapine 20 MG Oral Tablet 09/29/2020 12:00:00 AM EDT [facility] Benzoyl Peroxide 0.05 MG/MG / Erythromycin 0.03 MG/MG Topical Gel 09/18/2020 12:00:00 AM EDT eCW1 ([facility]) Benzoyl Peroxide 0.05 MG/MG / Erythromycin 0.03 MG/MG Topical Gel 09/18/2020 12:00:00 AM EDT eCW1 ([facility]) Benzoyl Peroxide 0.05 MG/MG / Erythromycin 0.03 MG/MG Topical Gel 09/18/2020 12:00:00 AM EDT eCW1 ([facility]) Benzoyl Peroxide 0.05 MG/MG / Erythromycin 0.03 MG/MG Topical Gel 09/18/2020 12:00:00 AM EDT eCW1 ([facility]) Benzoyl Peroxide 0.05 MG/MG / Erythromycin 0.03 MG/MG Topical Gel 09/18/2020 12:00:00 AM EDT eCW1 ([facility]) Divalproex Sodium 125 MG Delayed Release Oral Capsule 09/11/2020 12:00:00 AM EDT [facility] Fluoxetine 40 MG Oral Capsule 07/29/2020 12:00:00 AM EST eCW1 ([facility]) Fluoxetine 40 MG Oral Capsule 07/29/2020 12:00:00 AM EST eCW1 ([facility]) Fluoxetine 40 MG Oral Capsule 07/29/2020 12:00:00 AM EST eCW1 ([facility]) Fluoxetine 40 MG Oral Capsule 07/29/2020 12:00:00 AM EST eCW1 ([facility]) Erythromycin 0.005 MG/MG Ophthalmic Ointment 07/09/2020 12:00:00 AM EST eCW1 ([facility]) Erythromycin 0.005 MG/MG Ophthalmic Ointment 07/09/2020 12:00:00 AM EST eCW1 ([facility]) Benzoyl Peroxide 0.05 MG/MG / Erythromycin 0.03 MG/MG Topical [facility]
[2021-03-11 12:45] LABS: HEMATOCRIT 44.4 % (36.0-47.0); HEMOGLOBIN 13.8 g/dl (12.0-15.5); MEAN CORPUSCULAR HEMOGLOBIN 28.8 pg (27.0-33.0); MEAN CORPUSCULAR HGB CONC 31.1 g/dl (32.0-36.5); MEAN CORPUSCULAR VOLUME 92.7 fl (80.0-96.0); PLATELET COUNT, AUTOMATED 280 10^3/uL (150-450); RED BLOOD COUNT 4.79 10^6/uL (4.00-5.40); WHITE BLOOD COUNT 8.6 10^3/uL (4.0-10.0)
--- OUTSIDE RECORDS SUMMARY | 2021-03-11 12:54 | CCD ---
Author Author [facility] Organization [facility] Address Unknown Phone Unavailable Care Team Providers Care [employer] Name Role Phone SHANEKA Casiano MD Unavailable Unavailable SHANEKA Casiano MD Unavailable Unavailable SHANEKA Casiano MD Unavailable Unavailable SHANEKA Casiano MD Unavailable Unavailable SHANEKA Casiano MD Unavailable Unavailable SHANEKA Casiano MD Unavailable Unavailable HARDY PLAZA Unavailable Unavailable Jose De Jesus BLAND [id number] Unavailable Unavailable Jaalina Homasandy Diaz Unavailable HOMA [...] Unavailable Unavailable Daily Khaliq, Kirsten Unavailable Unavailable Adily Khaliq, Kirsten Unavailable Unavailable Daily Khaliq, Kirsten [...] Unavailable LOLITA ., [place] . Unavailable Unavailable LOILTA ., [place] . Unavailable Unavailable Jose De [...] MD Unavailable Unavailable MarcoAnabell MD Unavailable Unavailable BristolAnabell MD Unavailable Unavailable MarcoAnabell MD Unavailable Unavailable BristolAnabell MD Unavailable Unavailable MarcoAnabell MD Unavailable Unavailable BristolAnabell MD Unavailable Unavailable MarcoAnabell MD Unavailable Unavailable MarcoAnabell MD Unavailable Unavailable BristolAnabell MD Unavailable Unavailable MarcoAnabell MD Unavailable Unavailable MarcoAnabell MD Unavailable Unavailable BristolAnabell MD Unavailable Unavailable MarcoAnabell MD Unavailable Unavailable MarcoAnabell MD Unavailable Unavailable MarcoAnabell MD Unavailable Unavailable BristolAnabell MD Unavailable Unavailable BristolAnabell MD Unavailable Unavailable BristolAnabell MD Unavailable Unavailable BristolAnabell MD Unavailable Unavailable MarcoAnabell MD Unavailable Unavailable BristolAnabell MD Unavailable Unavailable BristolAnabell MD Unavailable Unavailable BristolAnabell MD Unavailable Unavailable BristolAnabell MD Unavailable Unavailable BristolAnabell MD Unavailable Unavailable MarcoAnabell MD Unavailable Unavailable BristolAnabell MD Unavailable Unavailable BristolAnabell MD Unavailable Unavailable MarcoAnabell MD Unavailable Unavailable BristolAnabell MD Unavailable Unavailable MarcoAnabell MD Unavailable Unavailable MarcoAnabell MD Unavailable Unavailable BristolAnabell MD Unavailable Unavailable BristolAnabell MD Unavailable Unavailable MarcoAnabell MD Unavailable Unavailable MarcoAnabell MD Unavailable Unavailable MarcoAnabell forte MD Unavailable Unavailable MarcoAnabell arreola MD Unavailable Unavailable BristolAnabell arreola MD Unavailable Unavailable MarcoAnabell MD Unavailable Unavailable BristolAnabell MD Unavailable Unavailable MarcoAnabell MD Unavailable Unavailable BristolAnabell MD Unavailable Unavailable BristolAnabell forte MD Unavailable Unavailable MarcoAnabell arreola MD Unavailable Unavailable BristolAnabell forte MD Unavailable Unavailable MarcoAnabell arreola MD [...] is protected by Article 27-F of the [facility] Public Health law. If you continue you may have access to information: Regarding HIV / AIDS; Provided by facilities licensed or operated by the [facility] Office of Mental Health; or Provided by the [facility] Office for People With Developmental Disabilities. If such information is present, then the following [facility] mandated warning applies: This information has [...] law may result in a fine or long-term sentence or both. A general authorization for the release of medical or other information is NOT sufficient authorization for further disc losure. Allergies and Adverse Reactions Type Description Substance Reaction Status Data Source(s ) invega, Ceclor, Lamictal, Rocephin, and depakote. inve ga, Ceclor, Lamictal, Rocephin, and depakote. invega, Ceclor, Lamictal, Rocephin, and depakote. active NETSMART ([facility] ) No known allergies No known allergies No known allergies a ctive NETSMART ([facility]) Propensity to adverse reactions NO KNOWN ALLERGIES NO KNOWN ALLERGIES [facility] Propensity to adverse reactions CEPHALOSPORINS CEPHALOSPORINS Hives [facility] Propensity to adverse reactions VALPROIC ACID VALPROIC ACID [facility] Propensity to adverse reactions VALPROIC ACID VALPROIC ACID [facility] Drug allergy PALIPERIDONE PALMITATE ER PALIPERIDONE PALMITATE ER [facility] Propensity to adverse reactions BROMOCRIPTINE BROMOCRIPTINE Rash Low [facility] Propensity to adverse reactions PALIPERIDONE PALMITATE PALIPERID ONE PALMITATE Other [facility] Propensity to adverse reactions CEFTRIAXONE Ceftriaxone Ac tive [facility] Propensity to adverse reactions LAMOTRIGINE lamotrigine Ac tive [facility] Propensity to adverse reactions PALIPERIDONE PALMITATE ER Pa liperidone Palmitate Er Active [facility] Propensity to adverse reactions CEFACLOR Cefaclor Acti ve [facility] Propensity to adverse reactions BROMOCRIPTINE Bromocriptine Rash Low Active [facility] Low Family History Family Member Name Family Member Gender Family Member Status Date o f Status Description Data Source(s) Unknown Unknown Problem MEDENT ([facility], ) father Encounters Encounter Providers Location Date Indications Data Source(s ) Outpatient [address] [facility] [id number] 02/28/2021 12:00:00 AM EDT eCW1 ([facility]) Outpatient Attender: Daily Brock MD Main office - [place] 02/25/2021 12:15:00 PM EDT MEDENT ([facility] emely, ) 02/25/2021 01:00:00 AM EDT - 021 12:00:43 AM EDT NETSMART ([facility]) Unknown [address] [facility] [id number] 02/25/2021 12:00:00 AM EDT eCW1 ([facility]) Unknown [address] [facility] [place] [address] 02/20/2021 12:00:00 AM EDT eCW1 ([facility]) Unknown [address] [facility] [place] [address] 12/12/2020 12:00:00 AM EDT eCW1 ([facility]) Inpatient Attender: America Thibdoeaux er: AMERICA MCHUGH .Admitter: AMERICA MCHUGH .Referrer: AMERICA MCHUGH . 12/07/2020 12:00:00 AM ED[facility] Attender: Merrick SapnaAttender: MERRICK SAPNAAttender: Yuni Li MDAttender: Hardy KumarAttender: HARDY KUMARAttender: Kirsten Daily KhaliqAttender: KIRSTEN KHALIQAttender: Munnam JafarAttender: MUNNAM JAF ARAttender: Adaora Udekwu MDAttender: MARYANNE HARRINGTONR MDAttender: NICOLE MAKI MDAttender: PETROS RENDON MDAttender: Bryan Beckler MDAttender: Aaramber GeurtsenAttender: TANNA HADZIPASIC MDAttender: America DuttaAttender: AMERICA LOLITA .Attender: KIRSTIE LEE MDAttender: Lenore RobbAdmitter: KIRSTIE LEE MDReferrer: AMERICA LOLITA .Label Paster: Ady Lara MDConsultant: Dylan JamisonwthamConsultant: Lobo Stacynsultant: LOBO BLAND [id number]: Munnam JafarConsultant: MUNNAM JAFARConsultant: Adaora Udekwu MDConsultant: OPHELIA SANTIAGO MDConsultant: LINUS RAMSAY MD [id number] 12/04/2020 12:00:00 AM EDT - 2021 10:40:00 AM EDT psych eval suicide attempt [facility] psych eval suicide attempt Patient discharged. [place] [address] [facility] [place] [address] 12/04/2020 12:00:00 AM EDT eCW1 ([facility]) Unknown [address] [facility] [place] [address] 11/28/2020 12:00:00 AM EDT eCW1 ([facility]) Unknown [address] [facility] [address] 11/27/2020 12:00:00 AM EDT eCW1 ([facility]) Unknown [address] [facility] [place] [address] 11/26/2020 12:00:00 AM EDT eCW1 ([facility]) [place] [address] [facility] [place] [address] 11/24/2020 12:00:00 AM EDT eCW1 ([facility]) Unknown [address] [facility] [place] [address] 11/24/2020 12:00:00 AM EDT eCW1 ([facility]) Unknown [address] [facility] [address] 11/21/2020 12:00:00 AM EDT eCW1 ([facility]) Inpatient Attender: MD YULIET Teran nder: MD DURAN Shahender: PROVIDER DEFAULTAttender: MEDICAL EMERGENCYAttender: KETAN KOTHARI MDAdmitter: MD DURAN NIELSON [id number] 11/18/2020 01:14:00 PM EDT - 11/20/2020 02:30:00 PM EDT [facility] Patient discharged. Inpatient Attender: DOCTOR MORINAdmi tter: MD DURAN Buscherrer: CATE CORTEZ MD 11/18/2020 01:14:00 PM EDT [facility] Outpatient 11/16/2020 11:40:00 PM EDT [facility] Unknown [address] [facility] [address] 11/13/2020 12:00:00 AM EDT eCW1 ([facility]) Inpatient Attender: Sirisha Hansen MDA ttender: SUELLEN THURSTON MDAdmitter: Sirisha Hansen MDReferrer: Lobo Hopson [id number] 12:00:00 AM EDT - 11/02/2020 11:10:00 AM EDT Congenital hypothyroidism without goiter [facility] Congenital hypothyroidism without goiter Patient discharged. Outpatient Attender: Daily Brock MD Main office - [place] 10/29/2020 11:45:00 AM EDT MEDENT ([facility], ) Outpatient Attender: MICHELLE Ferrari tter: MICHELLE VILLEDA MDReferrer: LINUS ANDRADE MD 10/19/2020 01:58:00 AM EDT unspecified depressiv e disorder [facility] unspecified depressive disorder Unknown [address] [facility] [address] 10/01/2020 12:00:00 AM EDT eCW1 ([facility]) Unknown [address] [facility] [address] 09/21/2020 12:00:00 AM EDT eCW1 ([facility]) Inpatient Attender: MUSA Casiano MDAtte nder: AIDEN NELSON MDAttender: JAQUELINE GONZALES IIIAttender: CHARISSE HOLLI MDAdmitter: AIDEN NELSON MDReferrer: AIDEN NELSON MDConsultant: OPHELIA SANTIAGO MDConsultant: MUSA Casiano MDConsultant: LOBO BLAND [id number] 09/18/2020 12:00:00 AM EDT - 09/29/2020 04:43:00 PM EDT Suicide attempt, initial encounter [facility] Suicide attempt, initial encounter Patient discharged. [place] [address] [facility] [address] 09/18/2020 12:00:00 AM EDT eCW1 ([facility]) Unknown [address] [facility] [place] [address] 09/17/2020 12:00:00 AM EDT eCW1 ([facility]) Unknown [address] [facility] [place] [address] 09/17/2020 12:00:00 AM EDT eCW1 ([facility]) Unknown [address] [facility] [place] [address] 09/14/2020 12:00:00 AM EDT eCW1 ([facility]) Unknown [address] [facility] [place] [address] 09/13/2020 12:00:00 AM EDT eCW1 ([facility]) Emergency Attender: EVERETT HANDY MD [id number] 06:12:00 PM EDT - 09/11/2020 09:07:[address] [facility] Patient discharged. Office Visit, Est Pt., Level 4 PC [address] [place] [address] 09/11/2020 12:00:00 AM EDT eCW1 ([facility]) Unknown [address] [facility] [place] [address] 08/20/2020 12:00:00 AM EDT eCW1 ([facility]) Unknown [address] [facility] [address] 07/30/2020 12:00:00 AM EST eCW1 ([facility]) Office Visit, Est Pt., Level 3 PC [address] [place] [address] 07/27/2020 12:00:00 AM EST eCW1 ([facility]) Unknown [address] [facility] [address] 07/27/2020 12:00:00 AM EST eCW1 ([facility]) Unknown [address] [facility] [place] [address] 07/19/2020 12:00:00 AM EST eCW1 ([facility]) Office Visit, Est Pt., Level 3 PC [address] [place] [address] 07/09/2020 12:00:00 AM EST eCW1 ([facility]) Unknown [address] [facility] [place] [address] 07/09/2020 12:00:00 AM EST eCW1 ([facility]) Unknown [address] [facility] [place] [address] 06/12/2020 12:00:00 AM EST eCW1 ([facility]) Unknown [address] [place] [address] [place] [address] 05/30/2020 12:00:00 AM EST eCW1 ([facility]) Unknown [address] [facility] [place] [address] 05/10/2020 12:00:00 AM EST eCW1 ([facility]) Outpatient [address] [facility] [place] [address] 05/07/2020 12:00:00 AM EST eCW1 ([facility]) Outpatient [address] [facility] [place] [address] 05/07/2020 12:00:00 AM EST eCW1 ([facility]) Unknown [address] [facility] [place] [address] 05/07/2020 12:00:00 AM EST eCW1 ([facility]) Unknown [address] [facility] [place] [address] 05/01/2020 12:00:00 AM EST eCW1 ([facility]) Unknown [address] [facility] [place] [address] 05/01/2020 12:00:00 AM EST eCW1 ([facility]) Unknown [address] [facility] [place] [address] 05/01/2020 12:00:00 AM EST eCW1 ([facility]) Unknown [address] [facility] [place] [address] 05/01/2020 12:00:00 AM EST eCW1 ([facility]) Unknown [address] [facility] [place] [address] 05/01/2020 12:00:00 AM EST eCW1 ([facility]) Unknown [address] [facility] [place] [address] 05/01/2020 12:00:00 AM EST eCW1 ([facility]) Unknown [address] [facility] [place] [address] 04/09/2020 12:00:00 AM EST eCW1 ([facility]) Outpatient Attender: Daily Brock MD Main office - [place] 03/05/2020 11:00:00 AM EDT MEDENT ([facility] jazmin, SHAUNA) Outpatient LERAYAK 02/29/2020 09:44:01 AM EDT [facility] Outpatient LERAYAK 02/21/2020 08:34:03 AM EDT [facility] Outpatient LERAYDC 02/21/2020 08:34:02 AM EDT [facility]17/2020 01:52:01 PM EDT [facility] Immunizations Vaccine Date Status Description Data Source(s) influenza, recombinant, quadrIvalent,injectable, prese rvative free 02/28/2021 03:41:00 PM EDT completed eCW1 ([facility]) COVID-19 VACC,MRNA(MODERNA)/PF 10/30/2020 12:00:00 AM EDT completed [facility] COVID-19 VACCINE Moderna 10/30/2020 12:00:00 AM EDT completed [facility] Vaccine Series Complete: YESThis Data wa s Submitted to [facility] Via [facility]. COVID-19 VACC,MRNA(MODERNA)/PF 10/05/2020 12:00:00 AM EDT completed [facility] COVID-19 VACCINE Moderna 10/05/2020 12:00:00 AM EDT completed [facility] Vaccine Series Complete: NOThis Data was Submitted to [facility] Via [employer]. influenza, recombinant, quadrIvalent,injectable, prese rvative free 05/07/2020 [...] propionate 0.05 MG/ACTUAT Metered Dose Se[place] 50 mcg/actuation FLUTICASONE PROPIONATE 03/02/2021 12:00:00 AM [...] ac tive Propranolol HCl 10 MG eCW1 ([facility]) quetiapine 25 MG Oral Tablet [Seroquel] Seroquel 25 MG Seroq uel 25 MG 02/26/2021 12:00:00 AM EDT 1.0 {tablet_at_bedtime} active Seroquel 25 MG eCW1 ([facility]) Zonegran 100 MG Zonegran 02/25/2021 01:00:00 AM EDT completed NETSMART ([facility]) Propranolol HCl 10 MG Propranolol HCl 02/25/2021 01:00:00 AM EDT completed NETSMART ([facility]) SEROquel 25 MG SEROquel 02/25/2021 01:00:00 AM EDT completed NETSMART ([facility]) Albuterol Sulfate (2.5 MG/3ML) 0.083% Albuterol Sulfate 01:00:00 AM EDT completed NETSMAR T ([facility]) Azelastine HCl 0.05 % Azelastine HCl 02/25/2021 01:00:00 AM EDT completed NETSMART ([facility]) Calcium-Vitamin D3 600-400 MG-UNIT Calcium-Vitamin D3 02/25 01:00:00 AM EDT completed NETSMAR T ([facility]) Onfi 10 MG Onfi 02/25/2021 01:00:00 AM EDT complet ed NETSMART ([facility]) Synthroid 25 MCG Synthroid 02/25/2021 01:00:00 AM EDT completed NETSMART ([facility]) Ketoconazole 2 % Ketoconazole 02/25/2021 01:00:00 AM EDT completed NETSMART ([facility]) Fluticasone Propionate 50 MCG/ACT Fluticasone Propionate 08/2020 01:00:00 AM EDT completed NETSMAR T ([facility]) 10 mg 2021 12:00:00 AM EDT tablet [...] Oral active Take 3 capsules by m [facility] 20 mg 11/02/2020 12:00:00 AM EDT capsule 90 TAKE THREE CAPSULES BY MOUTH EVERY DAY TAKE THREE CAPSULES BY MOUTH EVERY DAY SOLD: 11/02/2020 [facility] 50 mg 11/02/2020 12:00:00 AM EDT tablet 60 TAKE ONE TABLET BY MOUTH TWICE A DAY TAKE ONE TABLET BY MOUTH TWICE A DAY SOLD: 11/02/2020 [facility] multivitamin tablet 1 tablet 4579-5829-54 11/01/2020 08:00:00 AM EDT 1 {tbl} Oral active 1 tablet, Oral , Daily Standard, First dose on Thu11/01/20 at 0800, For 30 days [facility] Medication administered onsite Levothyroxine Sodium 0.025 MG Oral Table t levothyroxine (SYNTHROID) tablet 25 mcg levothyroxine (SYNTHROID) tablet 25 mcg 11/01/2020 06:00:00 AM EDT 25 ug Oral active 25 mcg, Oral, Daily at 0600, First dose on Thu11/01/20 at 0600, For 30 days [facility] Medication administered onsite Chlorpromazine hydrochloride 50 MG Oral Tablet chlorproMAZINE HCl 50 MG Oral Tablet (THORAZINE) chlorproMAZINE HCl 50 MG Oral Tablet (THORAZINE) 11/01 12:00:00 AM EDT 50 mg Oral active Take 1 tablet by mouth Two Times Daily [facility] olopatadine 1 MG/ML Ophthalmic Solution olopatadine (PATANOL) 0.1 % ophthalmic solution 1 drop olopatadine (PATANOL) 0.1 % ophthalmic solution 1 drop 10/31/2020 08:00:00 PM EDT 1 [drp] Both Eyes active 1 drop, Both Eyes, 2 Times Daily, First dose on Thu10/31/20 at 2000, For 30 days [facility] Medication administered onsite Chlorpromazine hydrochloride 25 MG Oral Tablet chlorproMAZINE (THORAZINE) tablet 50 mg chlorproMAZINE (THORAZINE) tablet 50 mg 10/31/2020 01:15:00 PM E DT 50 mg Oral active 50 mg, Ora l, 2 Times Daily, First dose on Thu10/31/20 at 1315, For 30 days [facility] Medication administered onsite Eucalyptol 0.92 MG/ML / Menthol 0.42 MG/ ML / methyl salicylate 0.6 MG/ML / Thymol 0.64 MG/ML Mouthwash saliva substitute (BIOTENE) liquid 5 mL saliva substitute (BIOTENE) liquid 5 mL 10/31/2020 01:03:39 PM EDT 5 mL Mouth/Throat active 5 mL, Mouth/Thr oat, PRN, Dry Mouth, Starting on Thu10/31/20 at 1303, For 30 days [facility] Medication administered onsite Chlorpromazine hydrochloride 25 MG Oral Tablet chlorproMAZINE (THORAZINE) tablet 50 mg chlorproMAZINE (THORAZINE) tablet 50 mg 10/31/2020 01:03:18 PM E DT 50 mg Oral active 50 mg, Ora l, Daily PRN, Agitation, Starting on Thu10/31/20 at 1303, For 30 days [facility] Medication administered onsite zonisamide 100 MG Oral Capsule zonisamide (ZONEGRAN) c apsule 200 mg zonisamide (ZONEGRAN) capsule 200 mg 10/31/2020 12:15:00 PM EDT 200 mg Oral active 200 mg, Oral, 2 Times Daily, First dose on Thu10/31/20 at 1215, For 30 days [facility] Medication administered onsite clobazam 10 MG Oral Tablet cloBAZam (ONFI) tablet 15 m g cloBAZam (ONFI) tablet 15 mg 10/31/2020 12:15:00 PM EDT 15 mg Oral active 15 mg, Oral, 2 Times Daily, First dose on Thu10/31/20 at 1215, For 30 days [facility] Medication administered onsite atorvastatin 40 MG Oral Tablet atorvastatin (LIPITOR) tablet 20 mg atorvastatin (LIPITOR) tablet 20 mg 10/31/2020 12:15:00 PM EDT 20 mg Oral active 20 mg, Oral, Daily Standard, First dose on Thu10/31/20 at 1215, For 30 days [facility] Medication administered onsite Fluoxetine 20 MG Oral Capsule fluoxetine (PROZAC) caps ule 60 mg fluoxetine (PROZAC) capsule 60 mg 10/31/2020 12:15:00 PM EDT 60 mg Oral active 60 mg, Oral, Daily Standard, First dose on Thu10/31/20 at 1215, For 30 days [facility] Medication administered onsite albuterol (PROVENTIL HFA) inhaler 2 puff [id number] 10/31/2020 12:08:21 PM EDT 2 {puff} Inhalation active 2 pu ff, Inhalation, Every 6 hours PRN, Wheezing, Starting on Thu10/31/20 at 1208, For 4 days
Shake the inhaler well before each spray.
[facility] Medication administered onsite Ondansetron 4 MG Disintegrating Oral Tab let ondansetron (ZOFRAN-ODT) disintegrating tablet 4 mg ondansetron (ZOFRAN-ODT) disintegrating tablet 4 mg 10/31/2020 10:24:29 AM EDT 4 mg Oral active 4 mg, Oral, Every 6 hours PRN, Nausea, Starting on Thu10/31/20 at 1024, For 30 days
Dissolve on tongue.
[facility] Medication administered onsite Aluminum Hydroxide 40 MG/ML [...] at 1024, For 30 days
MDD 4
[facility] Medication administered onsite Magnesium Hydroxide 80 MG/ML [...] creatinine > 2 notify provider before administering.
[facility] Medication administered onsite Acetaminophen 325 MG Oral Tablet acetaminophen (TYLENO L) tablet 650 mg acetaminophen (TYLENOL) tablet 650 mg 10/31/2020 10:24:12 AM EDT 65 0 mg Oral active 650 mg, Oral, E very 4 hours PRN, Mild Pain (Pain Scale Score 1- 3), Headaches, Starting on Thu10/31/20 at 1024, For 30 days
MDD 4
[facility] Medication administered onsite olanzapine 10 MG Oral Tablet OLANZAPINE 10/25/2020 12:00:00 AM EDT tab let 14 TAKE TWO TABLETS BY MOUTH AT BEDTIME FOR MOOD TAKE TWO TABLETS BY MOUTH AT BEDTIME FOR MOOD SOLD: 10/25/2020 [facility] Azelastine hydrochloride 0.5 MG/ML Ophthalmic Solution Azelastine HCl 0.05 % Azelastine HCl 0.05 % 10/01/2020 12:00:00 AM EDT active Azelastine HCl 0.05 % eCW1 ([facility]) 0.05 % 10/01/2020 12:00:00 AM EDT drops 6 INSTILL 1 DROP IN EACH EYE TWO TIMES A DAY INSTILL 1 DROP IN EACH EYE TWO TIMES A DAY SOLD: 10/03/2020 [facility] Azelastine hydrochloride 0.5 MG/ML Ophthalmic Solution Azelastine HCl 0.05 % Azelastine HCl 0.05 % 10/01/2020 12:00:00 AM EDT active Azelastine HCl 0.05 % eCW1 ([facility]) Azelastine hydrochloride 0.5 MG/ML Ophthalmic Solution Azelastine HCl 0.05 % Azelastine HCl 0.05 % 10/01/2020 12:00:00 AM EDT active Azelastine HCl 0.05 % eCW1 ([facility]) Azelastine hydrochloride 0.5 MG/ML Ophthalmic Solution Azelastine HCl 0.05 % Azelastine HCl 0.05 % 10/01/2020 12:00:00 AM EDT active Azelastine HCl 0.05 % eCW1 ([facility]) Azelastine hydrochloride 0.5 MG/ML Ophthalmic Solution Azelastine HCl 0.05 % Azelastine HCl 0.05 % 10/01/2020 12:00:00 AM EDT active Azelastine HCl 0.05 % eCW1 ([facility]) Azelastine hydrochloride 0.5 MG/ML Ophthalmic Solution Azelastine HCl 0.05 % Azelastine HCl 0.05 % 10/01/2020 12:00:00 AM EDT active Azelastine HCl 0.05 % eCW1 ([facility]) Azelastine hydrochloride 0.5 MG/ML Ophthalmic Solution Azelastine HCl 0.05 % Azelastine HCl 0.05 % 10/01/2020 12:00:00 AM EDT active Azelastine HCl 0.05 % eCW1 ([facility]) Azelastine hydrochloride 0.5 MG/ML Ophthalmic Solution Azelastine HCl 0.05 % Azelastine HCl 0.05 % 10/01/2020 12:00:00 AM EDT active Azelastine HCl 0.05 % eCW1 ([facility]) Azelastine hydrochloride 0.5 MG/ML Ophthalmic Solution Azelastine HCl 0.05 % Azelastine HCl 0.05 % 10/01/2020 12:00:00 AM EDT active Azelastine HCl 0.05 % eCW1 ([facility]) Azelastine hydrochloride 0.5 MG/ML Ophthalmic Solution Azelastine HCl 0.05 % Azelastine HCl 0.05 % 10/01/2020 12:00:00 AM EDT active Azelastine HCl 0.05 % eCW1 ([facility]) Azelastine hydrochloride 0.5 MG/ML Ophthalmic Solution Azelastine HCl 0.05 % Azelastine HCl 0.05 % 10/01/2020 12:00:00 AM EDT active Azelastine HCl 0.05 % eCW1 ([facility]) 0.05 % 10/01/2020 12:00:00 AM EDT drops 6 INSTILL 1 DROP IN EACH EYE TWO TIMES A DAY INSTILL 1 DROP IN EACH EYE TWO TIMES A DAY SOLD: 10/28/2020 [facility] Azelastine hydrochloride 0.5 MG/ML Ophthalmic Solution Azelastine HCl 0.05 % Azelastine HCl 0.05 % 10/01/2020 12:00:00 AM EDT active Azelastine HCl 0.05 % eCW1 ([facility]) 0.05 % 10/01/2020 12:00:00 AM EDT drops 6 INSTILL 1 DROP IN EACH EYE TWO TIMES A DAY INSTILL 1 DROP IN EACH EYE TWO TIMES A DAY SOLD: 02/25/2021 [facility] Azelastine hydrochloride 0.5 MG/ML Ophthalmic Solution Azelastine HCl 0.05 % Azelastine HCl 0.05 % 10/01/2020 12:00:00 AM EDT active Azelastine HCl 0.05 % eCW1 ([facility]) olanzapine 20 MG Oral Tablet OLANZapine 20 MG Oral Tab let (ZYPREXA) OLANZapine 20 MG Oral Tablet (ZYPREXA) 09/29/2020 12:00:00 AM EDT 20 mg Oral aborted Take 1 tablet by mouth nightly [facility] Benzoyl Peroxide 0.05 MG/MG / Erythromyc in 0.03 MG/MG Topical Gel Benzoyl Peroxide-Erythromycin 5-3 % Benzoyl Peroxide-Erythromycin 5-3 % 09/18/2020 12:00:00 AM EDT active Benzoyl Peroxide-Erythromycin 5-3 % eCW1 ([facility]) Benzoyl Peroxide 0.05 MG/MG / Erythromyc in 0.03 MG/MG Topical Gel Benzoyl Peroxide-Erythromycin 5-3 % Benzoyl Peroxide-Erythromycin 5-3 % 09/18/2020 12:00:00 AM EDT active Benzoyl Peroxide-Erythromycin 5-3 % eCW1 ([facility]) Benzoyl Peroxide 0.05 MG/MG / Erythromyc in 0.03 MG/MG Topical Gel Benzoyl Peroxide-Erythromycin 5-3 % Benzoyl Peroxide-Erythromycin 5-3 % 09/18/2020 12:00:00 AM EDT active Benzoyl Peroxide-Erythromycin 5-3 % eCW1 ([facility]) Benzoyl Peroxide 0.05 MG/MG / Erythromyc in 0.03 MG/MG Topical Gel Benzoyl Peroxide-Erythromycin 5-3 % Benzoyl Peroxide-Erythromycin 5-3 % 09/18/2020 12:00:00 AM EDT active Benzoyl Peroxide-Erythromycin 5-3 % eCW1 ([facility]) 25 mcg 09/18/2020 12:00:00 AM EDT [...] EDT active Benzoyl Peroxide-Erythromycin 5-3 % eCW1 ([facility]) Benzoyl Peroxide 0.05 MG/MG / Erythromycin [...] EDT active Benzoyl Peroxide-Erythromycin 5-3 % eCW1 ([facility]) atorvastatin 20 MG Oral Tablet ATORVASTATIN [...] EDT active Benzoyl Peroxide-Erythromycin 5-3 % eCW1 ([facility]) Benzoyl Peroxide 0.05 MG/MG / Erythromyc in 0.03 MG/MG Topical Gel Benzoyl Peroxide-Erythromycin 5-3 % Benzoyl Peroxide-Erythromycin 5-3 % 09/18/2020 12:00:00 AM EDT active Benzoyl Peroxide-Erythromycin 5-3 % eCW1 ([facility]) Benzoyl Peroxide 0.05 MG/MG / Erythromyc in 0.03 MG/MG Topical Gel Benzoyl Peroxide-Erythromycin 5-3 % Benzoyl Peroxide-Erythromycin 5-3 % 09/18/2020 12:00:00 AM EDT active Benzoyl Peroxide-Erythromycin 5-3 % eCW1 ([facility]) Benzoyl Peroxide 0.05 MG/MG / Erythromyc in 0.03 MG/MG Topical Gel Benzoyl Peroxide-Erythromycin 5-3 % Benzoyl Peroxide-Erythromycin 5-3 % 09/18/2020 12:00:00 AM EDT active Benzoyl Peroxide-Erythromycin 5-3 % eCW1 ([facility]) 10 mg 09/18/2020 12:00:00 AM EDT [...] EDT active Benzoyl Peroxide-Erythromycin 5-3 % eCW1 ([facility]) atorvastatin 20 MG Oral Tablet ATORVASTATIN [...] EDT active Benzoyl Peroxide-Erythromycin 5-3 % eCW1 ([facility]) Benzoyl Peroxide 0.05 MG/MG / Erythromyc in 0.03 MG/MG Topical Gel Benzoyl Peroxide-Erythromycin 5-3 % Benzoyl Peroxide-Erythromycin 5-3 % 09/18/2020 12:00:00 AM EDT active Benzoyl Peroxide-Erythromycin 5-3 % eCW1 ([facility]) Benzoyl Peroxide 0.05 MG/MG / Erythromyc in 0.03 MG/MG Topical Gel Benzoyl Peroxide-Erythromycin 5-3 % Benzoyl Peroxide-Erythromycin 5-3 % 09/18/2020 12:00:00 AM EDT active Benzoyl Peroxide-Erythromycin 5-3 % eCW1 ([facility]) Benzoyl Peroxide 0.05 MG/MG / Erythromyc in 0.03 MG/MG Topical Gel Benzoyl Peroxide-Erythromycin 5-3 % Benzoyl Peroxide-Erythromycin 5-3 % 09/18/2020 12:00:00 AM EDT active Benzoyl Peroxide-Erythromycin 5-3 % eCW1 ([facility]) Benzoyl Peroxide 0.05 MG/MG / Erythromyc in 0.03 MG/MG Topical Gel Benzoyl Peroxide-Erythromycin 5-3 % Benzoyl Peroxide-Erythromycin 5-3 % 09/18/2020 12:00:00 AM EDT active Benzoyl Peroxide-Erythromycin 5-3 % eCW1 ([facility]) Divalproex Sodium 125 MG Delayed Release Oral Capsule divalproex Sodium (DEPAKOTE SPRINKLE) 125 MG capsule divalproex Sodium (DEPAKOTE SPRINKLE) 12 5 MG capsule 09/11/2020 12:00:00 AM EDT 250 mg Oral active Take 2 capsules (250 mg total) by mouth 2 (two) times a day [facility] 2.5 mg 09/03/2020 12:00:00 AM EDT tablet [...] CAPSULE BY MOUTH EVERY DAY SOLD: 08/01/2020 [facility] olanzapine 10 MG Oral Tablet OLANZAPINE 07/31/2020 12:00:00 AM EST tab let 30 TAKE ONE TABLET BY MOUTH EVERY EVENING TAKE ONE TABLET BY MOUTH EVERY EVENING SOLD: 08/01/2020 [facility] Fluoxetine 40 MG Oral Capsule FLUoxetine HCl 40 MG FLUoxetin e HCl 40 MG 07/29/2020 12:00:00 AM EST 1.0 {capsule} active FLUoxetine HCl 40 MG eCW1 ([facility]) Ciprofloxacin 250 MG Oral Tablet Ciprofloxacin HCl 250 MG Ciprofloxacin HCl 250 MG 07/29/2020 12:00:00 AM EST 1.0 {tablet} suspe nded Ciprofloxacin HCl 250 MG eCW1 ([facility]) Fluoxetine 40 MG Oral Capsule FLUoxetine HCl 40 MG FLUoxetin e HCl 40 MG 07/29/2020 12:00:00 AM EST 1.0 {capsule} active FLUoxetine HCl 40 MG eCW1 ([facility]) Ciprofloxacin 250 MG Oral Tablet Ciprofloxacin HCl 250 MG Ciprofloxacin HCl 250 MG 07/29/2020 12:00:00 AM EST 1.0 {tablet} activ e Ciprofloxacin HCl 250 MG eCW1 ([facility]) 250 mg 07/29/2020 12:00:00 AM EST tablet 3 TAKE ONE TABLET BY MOUTH EVERY DAY AT 0600 TAKE ONE TABLET BY MOUTH EVERY DAY AT 0600 SOLD: 07/29/2020 [facility] Fluoxetine 40 MG Oral Capsule FLUoxetine HCl 40 MG FLUoxetin e HCl 40 MG 07/29/2020 12:00:00 AM EST 1.0 {capsule} active FLUoxetine HCl 40 MG eCW1 ([facility]) Fluoxetine 40 MG Oral Capsule FLUoxetine HCl 40 MG FLUoxetin e HCl 40 MG 07/29/2020 12:00:00 AM EST 1.0 {capsule} active FLUoxetine HCl 40 MG eCW1 ([facility]) Ciprofloxacin 250 MG Oral Tablet Ciprofloxacin HCl 250 MG Ciprofloxacin HCl 250 MG 07/29/2020 12:00:00 AM EST 1.0 {tablet} suspe nded Ciprofloxacin HCl 250 MG eCW1 ([facility]) Ciprofloxacin 250 MG Oral Tablet Ciprofloxacin HCl 250 MG Ciprofloxacin HCl 250 MG 07/29/2020 12:00:00 AM EST 1.0 {tablet} suspe nded Ciprofloxacin HCl 250 MG eCW1 ([facility]) Fluoxetine 40 MG Oral Capsule FLUoxetine HCl 40 MG FLUoxetin e HCl 40 MG 07/29/2020 12:00:00 AM EST 1.0 {capsule} active FLUoxetine HCl 40 MG eCW1 ([facility]) Fluoxetine 40 MG Oral Capsule FLUoxetine HCl 40 MG FLUoxetin e HCl 40 MG 07/29/2020 12:00:00 AM EST 1.0 {capsule} active FLUoxetine HCl 40 MG eCW1 ([facility]) Ciprofloxacin 250 MG Oral Tablet Ciprofloxacin HCl 250 MG Ciprofloxacin HCl 250 MG 07/29/2020 12:00:00 AM EST 1.0 {tablet} activ e Ciprofloxacin HCl 250 MG eCW1 ([facility]) Fluoxetine 40 MG Oral Capsule FLUoxetine HCl 40 MG FLUoxetin e HCl 40 MG 07/29/2020 12:00:00 AM EST 1.0 {capsule} active FLUoxetine HCl 40 MG eCW1 ([facility]) benztropine mesylate 0.5 MG Oral Tablet Benztropine Me sylate 0.5 MG Benztropine Mesylate 0.5 MG 07/29/2020 12:00:00 AM EST 1.0 {tablet_at_bedtime} active Benztropine Mesylate 0.5 MG eCW1 ([facility]) Fluoxetine 40 MG Oral Capsule FLUoxetine HCl 40 MG FLUoxetin e HCl 40 MG 07/29/2020 12:00:00 AM EST 1.0 {capsule} active FLUoxetine HCl 40 MG eCW1 ([facility]) Ciprofloxacin 250 MG Oral Tablet Ciprofloxacin HCl 250 MG Ciprofloxacin HCl 250 MG 07/29/2020 12:00:00 AM EST 1.0 {tablet} activ e Ciprofloxacin HCl 250 MG eCW1 ([facility]) Ciprofloxacin 250 MG Oral Tablet Ciprofloxacin HCl 250 MG Ciprofloxacin HCl 250 MG 07/29/2020 12:00:00 AM EST 1.0 {tablet} suspe nded Ciprofloxacin HCl 250 MG eCW1 ([facility]) Ciprofloxacin 250 MG Oral Tablet Ciprofloxacin HCl 250 MG Ciprofloxacin HCl 250 MG 07/29/2020 12:00:00 AM EST 1.0 {tablet} activ e Ciprofloxacin HCl 250 MG eCW1 ([facility]) Ciprofloxacin 250 MG Oral Tablet Ciprofloxacin HCl 250 MG Ciprofloxacin HCl 250 MG 07/29/2020 12:00:00 AM EST 1.0 {tablet} activ e Ciprofloxacin HCl 250 MG eCW1 ([facility]) Ciprofloxacin 250 MG Oral Tablet Ciprofloxacin HCl 250 MG Ciprofloxacin HCl 250 MG 07/29/2020 12:00:00 AM EST 1.0 {tablet} suspe nded Ciprofloxacin HCl 250 MG eCW1 ([facility]) Fluoxetine 40 MG Oral Capsule FLUoxetine HCl 40 MG FLUoxetin e HCl 40 MG 07/29/2020 12:00:00 AM EST 1.0 {capsule} active FLUoxetine HCl 40 MG eCW1 ([facility]) Ciprofloxacin 250 MG Oral Tablet Ciprofloxacin HCl 250 MG Ciprofloxacin HCl 250 MG 07/29/2020 12:00:00 AM EST 1.0 {tablet} suspe nded Ciprofloxacin HCl 250 MG eCW1 ([facility]) Fluoxetine 40 MG Oral Capsule FLUoxetine HCl 40 MG FLUoxetin e HCl 40 MG 07/29/2020 12:00:00 AM EST 1.0 {capsule} active FLUoxetine HCl 40 MG eCW1 ([facility]) Ciprofloxacin 250 MG Oral Tablet Ciprofloxacin HCl 250 MG Ciprofloxacin HCl 250 MG 07/29/2020 12:00:00 AM EST 1.0 {tablet} activ e Ciprofloxacin HCl 250 MG eCW1 ([facility]) Ciprofloxacin 250 MG Oral Tablet Ciprofloxacin HCl 250 MG Ciprofloxacin HCl 250 MG 07/29/2020 12:00:00 AM EST 1.0 {tablet} suspe nded Ciprofloxacin HCl 250 MG eCW1 ([facility]) Fluoxetine 40 MG Oral Capsule FLUoxetine HCl 40 MG FLUoxetin e HCl 40 MG 07/29/2020 12:00:00 AM EST 1.0 {capsule} active FLUoxetine HCl 40 MG eCW1 ([facility]) Ciprofloxacin 250 MG Oral Tablet Ciprofloxacin HCl 250 MG Ciprofloxacin HCl 250 MG 07/29/2020 12:00:00 AM EST 1.0 {tablet} suspe nded Ciprofloxacin HCl 250 MG eCW1 ([facility]) Fluoxetine 40 MG Oral Capsule FLUoxetine HCl 40 MG FLUoxetin e HCl 40 MG 07/29/2020 12:00:00 AM EST 1.0 {capsule} active FLUoxetine HCl 40 MG eCW1 ([facility]) Fluoxetine 40 MG Oral Capsule FLUoxetine HCl 40 MG FLUoxetin e HCl 40 MG 07/29/2020 12:00:00 AM EST 1.0 {capsule} active FLUoxetine HCl 40 MG eCW1 ([facility]) Ciprofloxacin 250 MG Oral Tablet Ciprofloxacin HCl 250 MG Ciprofloxacin HCl 250 MG 07/29/2020 12:00:00 AM EST 1.0 {tablet} suspe nded Ciprofloxacin HCl 250 MG eCW1 ([facility]) Ciprofloxacin 250 MG Oral Tablet Ciprofloxacin HCl 250 MG Ciprofloxacin HCl 250 MG 07/29/2020 12:00:00 AM EST 1.0 {tablet} suspe nded Ciprofloxacin HCl 250 MG eCW1 ([facility]) Fluoxetine 40 MG Oral Capsule FLUoxetine HCl 40 MG FLUoxetin e HCl 40 MG 07/29/2020 12:00:00 AM EST 1.0 {capsule} active FLUoxetine HCl 40 MG eCW1 ([facility]) Fluoxetine 40 MG Oral Capsule FLUoxetine HCl 40 MG FLUoxetin e HCl 40 MG 07/29/2020 12:00:00 AM EST 1.0 {capsule} active FLUoxetine HCl 40 MG eCW1 ([facility]) Ciprofloxacin 250 MG Oral Tablet Ciprofloxacin HCl 250 MG Ciprofloxacin HCl 250 MG 07/29/2020 12:00:00 AM EST 1.0 {tablet} activ e Ciprofloxacin HCl 250 MG eCW1 ([facility]) Ciprofloxacin 250 MG Oral Tablet Ciprofloxacin HCl 250 MG Ciprofloxacin HCl 250 MG 07/29/2020 12:00:00 AM EST 1.0 {tablet} suspe nded Ciprofloxacin HCl 250 MG eCW1 ([facility]) 10 mg 07/29/2020 12:00:00 AM EST [...] {capsule} active FLUoxetine HCl 40 MG eCW1 ([facility]) benztropine mesylate 0.5 MG Oral Tablet Benztropine Me sylate 0.5 MG Benztropine Mesylate 0.5 MG 07/29/2020 12:00:00 AM EST 1.0 {tablet_at_bedtime} active Benztropine Mesylate 0.5 MG eCW1 ([facility]) Ciprofloxacin 250 MG Oral Tablet Ciprofloxacin HCl 250 MG Ciprofloxacin HCl 250 MG 07/29/2020 12:00:00 AM EST 1.0 {tablet} suspe nded Ciprofloxacin HCl 250 MG eCW1 ([facility]) Ciprofloxacin 250 MG Oral Tablet Ciprofloxacin HCl 250 MG Ciprofloxacin HCl 250 MG 07/29/2020 12:00:00 AM EST 1.0 {tablet} activ e Ciprofloxacin HCl 250 MG eCW1 ([facility]) benztropine mesylate 0.5 MG Oral Tablet Benztropine Me sylate 0.5 MG Benztropine Mesylate 0.5 MG 07/29/2020 12:00:00 AM EST 1.0 {tablet_at_bedtime} active Benztropine Mesylate 0.5 MG eCW1 ([facility]) Fluoxetine 40 MG Oral Capsule FLUoxetine HCl 40 MG FLUoxetin e HCl 40 MG 07/29/2020 12:00:00 AM EST 1.0 {capsule} active FLUoxetine HCl 40 MG eCW1 ([facility]) benztropine mesylate 0.5 MG Oral Tablet Benztropine Me sylate 0.5 MG Benztropine Mesylate 0.5 MG 07/29/2020 12:00:00 AM EST 1.0 {tablet_at_bedtime} active Benztropine Mesylate 0.5 MG eCW1 ([facility]) Fluoxetine 40 MG Oral Capsule FLUoxetine HCl 40 MG FLUoxetin e HCl 40 MG 07/29/2020 12:00:00 AM EST 1.0 {capsule} active FLUoxetine HCl 40 MG eCW1 ([facility]) Fluoxetine 40 MG Oral Capsule FLUoxetine HCl 40 MG FLUoxetin e HCl 40 MG 07/29/2020 12:00:00 AM EST 1.0 {capsule} active FLUoxetine HCl 40 MG eCW1 ([facility]) Fluoxetine 40 MG Oral Capsule FLUoxetine HCl 40 MG FLUoxetin e HCl 40 MG 07/29/2020 12:00:00 AM EST 1.0 {capsule} active FLUoxetine HCl 40 MG eCW1 ([facility]) Ciprofloxacin 250 MG Oral Tablet Ciprofloxacin HCl 250 MG Ciprofloxacin HCl 250 MG 07/29/2020 12:00:00 AM EST 1.0 {tablet} suspe nded Ciprofloxacin HCl 250 MG eCW1 ([facility]) Fluoxetine 40 MG Oral Capsule FLUoxetine HCl 40 MG FLUoxetin e HCl 40 MG 07/29/2020 12:00:00 AM EST 1.0 {capsule} active FLUoxetine HCl 40 MG eCW1 ([facility]) Ciprofloxacin 250 MG Oral Tablet Ciprofloxacin HCl 250 MG Ciprofloxacin HCl 250 MG 07/29/2020 12:00:00 AM EST 1.0 {tablet} suspe nded Ciprofloxacin HCl 250 MG eCW1 ([facility]) Fluoxetine 40 MG Oral Capsule FLUoxetine HCl 40 MG FLUoxetin e HCl 40 MG 07/29/2020 12:00:00 AM EST 1.0 {capsule} active FLUoxetine HCl 40 MG eCW1 ([facility]) 10,000 unit- 1 mg/mL 07/28/2020 12:00:00 AM EST drops 10 INSTILL ONE DROP IN EACH EYE FOUR TIMES A DAY INSTILL ONE DROP IN EACH EYE FOUR TIMES A DAY SOLD: 07/28/2020 [facility] Polymyxin B 91157 UNT/ML / Trimethoprim 1 MG/ML Ophthalmic Solution [Polytrim] Polytrim 29267-9.1 UNIT/ML Polytrim 68178-8.1 UNIT/ML 07/27/2020 12:00:00 AM EST active Polytrim 88347-2. 1 UNIT/ML eCW1 ([facility]) Polymyxin B 44788 UNT/ML / Trimethoprim 1 MG/ML Ophthalmic Solution [Polytrim] Polytrim 80369-3.1 UNIT/ML Polytrim 85459-0.1 UNIT/ML 07/27/2020 12:00:00 AM EST active Polytrim 40011-7. 1 UNIT/ML eCW1 ([facility]) Polymyxin B 92776 UNT/ML / Trimethoprim 1 MG/ML Ophthalmic Solution [Polytrim] Polytrim 45143-7.1 UNIT/ML Polytrim 13403-5.1 UNIT/ML 07/27/2020 12:00:00 AM EST active Polytrim 29651-8. 1 UNIT/ML eCW1 ([facility]) Polymyxin B 16563 UNT/ML / Trimethoprim 1 MG/ML Ophthalmic Solution [Polytrim] Polytrim 41065-6.1 UNIT/ML Polytrim 23655-5.1 UNIT/ML 07/27/2020 12:00:00 AM EST active Polytrim 93866-6. 1 UNIT/ML eCW1 ([facility]) Polymyxin B 48351 UNT/ML / Trimethoprim 1 MG/ML Ophthalmic Solution [Polytrim] Polytrim 60726-6.1 UNIT/ML Polytrim 82313-7.1 UNIT/ML 07/27/2020 12:00:00 AM EST active Polytrim 88228-3. 1 UNIT/ML eCW1 ([facility]) Polymyxin B 95926 UNT/ML / Trimethoprim 1 MG/ML Ophthalmic Solution [Polytrim] Polytrim 32266-7.1 UNIT/ML Polytrim 41495-4.1 UNIT/ML 07/27/2020 12:00:00 AM EST active Polytrim 95638-4. 1 UNIT/ML eCW1 ([facility]) Polymyxin B 50981 UNT/ML / Trimethoprim 1 MG/ML Ophthalmic Solution [Polytrim] Polytrim 94371-5.1 UNIT/ML Polytrim 46733-8.1 UNIT/ML 07/27/2020 12:00:00 AM EST active Polytrim 63835-0. 1 UNIT/ML eCW1 ([facility]) Polymyxin B 08523 UNT/ML / Trimethoprim 1 MG/ML Ophthalmic Solution [Polytrim] Polytrim 05937-8.1 UNIT/ML Polytrim 79459-5.1 UNIT/ML 07/27/2020 12:00:00 AM EST active Polytrim 85090-1. 1 UNIT/ML eCW1 ([facility]) Polymyxin B 57159 UNT/ML / Trimethoprim 1 MG/ML Ophthalmic Solution [Polytrim] Polytrim 78054-0.1 UNIT/ML Polytrim 44140-7.1 UNIT/ML 07/27/2020 12:00:00 AM EST active Polytrim 44464-5. 1 UNIT/ML eCW1 ([facility]) Polymyxin B 14141 UNT/ML / Trimethoprim 1 MG/ML Ophthalmic Solution [Polytrim] Polytrim 15644-3.1 UNIT/ML Polytrim 27351-5.1 UNIT/ML 07/27/2020 12:00:00 AM EST active Polytrim 36098-0. 1 UNIT/ML eCW1 ([facility]) Polymyxin B 90302 UNT/ML / Trimethoprim 1 MG/ML Ophthalmic Solution [Polytrim] Polytrim 86781-1.1 UNIT/ML Polytrim 13795-4.1 UNIT/ML 07/27/2020 12:00:00 AM EST active Polytrim 78800-9. 1 UNIT/ML eCW1 ([facility]) Polymyxin B 99800 UNT/ML / Trimethoprim 1 MG/ML Ophthalmic Solution [Polytrim] Polytrim 27653-1.1 UNIT/ML Polytrim 71089-9.1 UNIT/ML 07/27/2020 12:00:00 AM EST active Polytrim 23220-4. 1 UNIT/ML eCW1 ([facility]) Polymyxin B 86913 UNT/ML / Trimethoprim 1 MG/ML Ophthalmic Solution [Polytrim] Polytrim 76036-4.1 UNIT/ML Polytrim 64488-6.1 UNIT/ML 07/27/2020 12:00:00 AM EST active Polytrim 24909-7. 1 UNIT/ML eCW1 ([facility]) Polymyxin B 34875 UNT/ML / Trimethoprim 1 MG/ML Ophthalmic Solution [Polytrim] Polytrim 58531-8.1 UNIT/ML Polytrim 89894-6.1 UNIT/ML 07/27/2020 12:00:00 AM EST active Polytrim 65497-2. 1 UNIT/ML eCW1 ([facility]) Polymyxin B 55555 UNT/ML / Trimethoprim 1 MG/ML Ophthalmic Solution [Polytrim] Polytrim 89191-9.1 UNIT/ML Polytrim 29407-3.1 UNIT/ML 07/27/2020 12:00:00 AM EST active Polytrim 22719-0. 1 UNIT/ML eCW1 ([facility]) Polymyxin B 82483 UNT/ML / Trimethoprim 1 MG/ML Ophthalmic Solution [Polytrim] Polytrim 63133-8.1 UNIT/ML Polytrim 12692-4.1 UNIT/ML 07/27/2020 12:00:00 AM EST active Polytrim 14701-7. 1 UNIT/ML eCW1 ([facility]) Polymyxin B 29497 UNT/ML / Trimethoprim 1 MG/ML Ophthalmic Solution [Polytrim] Polytrim 20876-8.1 UNIT/ML Polytrim 88837-1.1 UNIT/ML 07/27/2020 12:00:00 AM EST active Polytrim 68257-6. 1 UNIT/ML eCW1 ([facility]) Polymyxin B 75014 UNT/ML / Trimethoprim 1 MG/ML Ophthalmic Solution [Polytrim] Polytrim 89089-6.1 UNIT/ML Polytrim 80016-5.1 UNIT/ML 07/27/2020 12:00:00 AM EST active Polytrim 45886-3. 1 UNIT/ML eCW1 ([facility]) Polymyxin B 04305 UNT/ML / Trimethoprim 1 MG/ML Ophthalmic Solution [Polytrim] Polytrim 16309-5.1 UNIT/ML Polytrim 06565-1.1 UNIT/ML 07/27/2020 12:00:00 AM EST active Polytrim 53234-9. 1 UNIT/ML eCW1 ([facility]) Polymyxin B 66939 UNT/ML / Trimethoprim 1 MG/ML Ophthalmic Solution [Polytrim] Polytrim 59428-3.1 UNIT/ML Polytrim 96269-9.1 UNIT/ML 07/27/2020 12:00:00 AM EST active Polytrim 83825-2. 1 UNIT/ML eCW1 ([facility]) Polymyxin B 17225 UNT/ML / Trimethoprim 1 MG/ML Ophthalmic Solution [Polytrim] Polytrim 37362-9.1 UNIT/ML Polytrim 67678-4.1 UNIT/ML 07/27/2020 12:00:00 AM EST active Polytrim 44201-7. 1 UNIT/ML eCW1 ([facility]) Polymyxin B 64771 UNT/ML / Trimethoprim 1 MG/ML Ophthalmic Solution [Polytrim] Polytrim 12929-7.1 UNIT/ML Polytrim 92656-4.1 UNIT/ML 07/27/2020 12:00:00 AM EST active Polytrim 42549-6. 1 UNIT/ML eCW1 ([facility]) Polymyxin B 51170 UNT/ML / Trimethoprim 1 MG/ML Ophthalmic Solution [Polytrim] Polytrim 70696-0.1 UNIT/ML Polytrim 39195-2.1 UNIT/ML 07/27/2020 12:00:00 AM EST active Polytrim 12516-5. 1 UNIT/ML eCW1 ([facility]) 10 mg 07/26/2020 12:00:00 AM EST [...] MOUTH AT BEDTIME FOR ANTIPSYCHOTIC SOLD: 07/26/2020 [facility] 40 mg 07/26/2020 12:00:00 AM EST capsule 14 TAKE TWO CAPSULES BY MOUTH EVERY DAY FOR DEPRESSION TAKE TWO CAPSULES BY MOUTH EVERY DAY FOR DEPRESSION SO LD: 07/26/2020 [facility] Erythromycin 0.005 MG/MG Ophthalmic Ointment Erythromy oleksandr 5 MG/GM Erythromycin 5 MG/GM 07/09/2020 12:00:00 AM EST active Erythromycin 5 MG/GM eCW1 ([facility]) Erythromycin 0.005 MG/MG Ophthalmic Ointment Erythromy oleksandr 5 MG/GM Erythromycin 5 MG/GM 07/09/2020 12:00:00 AM EST active Erythromycin 5 MG/GM eCW1 ([facility]) Erythromycin 0.005 MG/MG Ophthalmic Ointment Erythromy oleksandr 5 MG/GM Erythromycin 5 MG/GM 07/09/2020 12:00:00 AM EST active Erythromycin 5 MG/GM eCW1 ([facility]) 5 mg/gram (0.5 %) 07/09/2020 12:00:00 [...] AM EST active Erythromycin 5 MG/GM eCW1 ([facility]) Erythromycin 0.005 MG/MG Ophthalmic Ointment Erythromy oleksandr 5 MG/GM Erythromycin 5 MG/GM 07/09/2020 12:00:00 AM EST active Erythromycin 5 MG/GM eCW1 ([facility]) Erythromycin 0.005 MG/MG Ophthalmic Ointment Erythromy oleksandr 5 MG/GM Erythromycin 5 MG/GM 07/09/2020 12:00:00 AM EST active Erythromycin 5 MG/GM eCW1 ([facility]) Erythromycin 0.005 MG/MG Ophthalmic Ointment Erythromy oleksandr 5 MG/GM Erythromycin 5 MG/GM 07/09/2020 12:00:00 AM EST active Erythromycin 5 MG/GM eCW1 ([facility]) 1 mg 07/06/2020 12:00:00 AM EST [...] EST active Sennosides-Docusate Sodium 8.6-5 0 MG [facility] ([facility]) Sennosides-Docusate Sodium 8.6-50 MG UNK 05/07/2020 12:00:00 AM EST suspended Sennosides-Docusate Sodium 8.6-5 0 MG eCW1 ([facility]) Sennosides-Docusate Sodium 8.6-50 MG UNK 05/07/2020 12:00:00 AM EST active Sennosides-Docusate Sodium 8.6-5 0 MG eCW1 ([facility]) Sennosides-Docusate Sodium 8.6-50 MG UNK 05/07/2020 12:00:00 AM EST active Sennosides-Docusate Sodium 8.6-5 0 MG eCW1 ([facility]) Sennosides-Docusate Sodium 8.6-50 MG UNK 05/07/2020 12:00:00 AM EST active Sennosides-Docusate Sodium 8.6-5 0 MG eCW1 ([facility]) Sennosides-Docusate Sodium 8.6-50 MG UNK 05/07/2020 12:00:00 AM EST active Sennosides-Docusate Sodium 8.6-5 0 MG eCW1 ([facility]) Sennosides-Docusate Sodium 8.6-50 MG UNK 05/07/2020 12:00:00 AM EST suspended Sennosides-Docusate Sodium 8.6-5 0 MG eCW1 ([facility]) Sennosides-Docusate Sodium 8.6-50 MG UNK 05/07/2020 12:00:00 AM EST suspended Sennosides-Docusate Sodium 8.6-5 0 MG eCW1 ([facility]) Sennosides-Docusate Sodium 8.6-50 MG UNK 05/07/2020 12:00:00 AM EST active Sennosides-Docusate Sodium 8.6-5 0 MG eCW1 ([facility]) Sennosides-Docusate Sodium 8.6-50 MG UNK 05/07/2020 12:00:00 AM EST active Sennosides-Docusate Sodium 8.6-5 0 MG eCW1 ([facility]) Sennosides-Docusate Sodium 8.6-50 MG UNK 05/07/2020 12:00:00 AM EST active Sennosides-Docusate Sodium 8.6-5 0 MG eCW1 ([facility]) Sennosides-Docusate Sodium 8.6-50 MG UNK 05/07/2020 12:00:00 AM EST active Sennosides-Docusate Sodium 8.6-5 0 MG eCW1 ([facility]) Sennosides-Docusate Sodium 8.6-50 MG UNK 05/07/2020 12:00:00 AM EST active Sennosides-Docusate Sodium 8.6-5 0 MG eCW1 ([facility]) 10 mg 05/03/2020 12:00:00 AM EST [...] MOUTH TWO TIMES A DAY SOLD: 06/30/2020 [facility] 100 mg 04/03/2020 12:00:00 AM EST [...] Topical aborted Apply topically Two Times Daily [facility] Insurance Providers Payer name Policy type / Coverage type Policy ID Covered constitution party ID Covered constitution party's relationship to frank Policy Frank Plan Information UHC UNITED MEDICARE DUAL G [id number] Self [id number] MEDICARE A [id number] Self [id number] A MEDICARE [id number] SP [id number] A [facility] G [id number] Self [id number] [employer] [facility] DUAL G [id number] Self [id number] A [facility] MED[facility] DUAL G [id number] Self [id number] MEDICARE [id number] SP [id number] A MEDICARE [id number] SP [id number] MEDICAID [id number] SP [id number] MEDICAID M [id number] Self [id number] [facility] [id number] Self [id number] [facility] MEDICAID [id number] xxxxxxxxx [id number] [facility] MEDICARE [id number] Addis [id number] [facility] MEDICARE [id number] xxxxxxxxx [id number] [facility] MEDICAID [id number] Addis [id number] [facility] OPTUM [id number] Self [id number] [facility] [id number] Self [id number] MEDICAID [id number] Addis [id number] MEDICAID [id number] xxxxxxxx [id number] MEDICAID [id number] Self [id number] [facility] OPTUM [id number] Self [id number] ANSI-Not a Secondary Insurance [id number] ANSI-Medicare Part B [id number] ANSI-Medicaid [id number] ANSI-Not a Secondary Insurance [id number] ANSI-Medicare Part B [id number] ANSI-Not a Secondary Insurance [id number] ANSI-Medicaid [id number] ANSI-Not a Secondary Insurance [id number] ANSI-Medicaid [id number] ANSI-Medicare Part B [id number] ANSI-Medicare Part B [id number] ANSI-Not a Secondary Insurance [id number] ANSI-Medicaid [id number] ANSI-Medicaid [id number] ANSI-Not a Secondary Insurance [id number] ANSI-Medicare Part B [id number] ANSI-Medicaid [id number] ANSI-Not a Secondary Insurance [id number] ANSI-Medicare Part B [id number] [facility] [id number] SP [id number] Medicaid [facility] Part B [id number] Self [id number] Medicare [place] Medicare Primary [id number] Self 0 [id number] Medicaid [facility] Part B [id number] Self [id number] Medicare [place] Medicare Primary [id number] Self 0 [id number] Medicaid [facility] Part B [id number] Self [id number] Medicare [place] Medicare Primary [id number] Self 0 [id number] MEDICAID [id number] SP [id number] MEDICARE P [id number] S [id number] A [facility] MEDICAID [id number] SP [id number] G [id number] [facility] [id number] SP [id number] [facility] [id number] SP [id number] [facility] [id number] SP [id number] MEDICARE [id number] SP [id number] [facility] [id number] SP [id number] [place] [id number] SP [id number] [facility] [id number] SP [id number] [facility] [id number] SP [id number] MEDICARE COMPLETE [id number] SP [id number] MEDICARE COMPLETE [id number] SP [id number] Medicaid S UNAVAILABLE S UNAVAILA BLE [facility] [employer] P [id number] S [id number] MEDICAID [id number] SP [id number] MEDICARE [id number] SP [id number] A MEDICARE [id number] SP [id number] [facility](MCAID) O [id number] S [id number] MEDICAID M [id number] S [id number] Medicare P UNAVAILABLE S UNAVAILA BLE ANSI-Medicaid [id number] ANSI-Medicare Part B [id number] Problems, Conditions, and Diagnoses Code Display Name Description Problem Type Effective Dates Data Source(s) R41.82 Altered mental status, unspecified Altered menta l status, unspecified Diagnosis 12/07/2020 04:17:36 PM EDT [facility] R45.851 Suicidal ideations Suicidal ideations Diagnosis 04:17:36 PM EDT [facility] psych eval suicide attempt psych eval suicide attempt Diagnosis 12/04/2020 02:56:00 PM EDT [facility] E78.00 Pure hypercholesterolemia, unspecified P ure hypercholesterolemia, unspecified Diagnosis 11/20/2020 01:19:08 PM EDT [facility] K21.9 Gastro-esophageal reflux disease without esophagitis Gastro-esophageal reflux disease without esophagitis Diagnosis 11/20/2020 01:19:07 PM ED T [facility] E06.3 Autoimmune thyroiditis Autoimmune thyroiditis Diagnosi s 11/20/2020 01:19:05 PM EDT [facility] E03.8 Other specified hypothyroidism Other specified hypothy roidism Diagnosis 11/20/2020 01:19:05 PM EDT [facility] F79 Unspecified intellectual disabilities Unspecifie d intellectual disabilities Diagnosis 11/20/2020 01:19:04 PM EDT [facility] 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, not intractable, without status epilepticus Localization-related (focal) (partial) s ymptomatic epilepsy and epileptic syndromes with complex partial seizures, not intractable, without status epilepticus Diagnosis 11/20/2020 01:19:03 PM EDT [facility] Psychiatric Evaluation Psychiatric Evaluation Diagnosi s 11/18/2020 01:14:00 PM EDT [facility] E55.9 Vitamin D deficiency, unspecified Vitamin D defi ciency, unspecified Diagnosis 11/18/2020 01:14:00 PM EDT [facility] F29 Unspecified psychosis not du e to a substance or known physiological condition Unspecified psychosis not due to a subst ance or known physiological condition Diagnosis 11/18/2020 01:14:00 PM EDT [facility] E03.1 Congenital hypothyroidism without goiter Congenital hypothyroidism without goiter Diagnosis 10/31/2020 01:25:[address] [facility] F20.9 Schizophrenia, unspecified Schizophrenia, unspecified Diagnosis 10/31/2020 10:16:00 AM EDT [facility] auditory hallucination, suicidal ideatio n auditory hallucination, suicidal ideation Diagnosis 10/31/2020 10:16:[address] [facility] unspecified depressive disorder unspecified depressive disorder Diagnosis 10/19/2020 01:58:00 AM EDT [facility] T14.91XA Suicide attempt, initial encounter Suicide attem pt, initial encounter Diagnosis 09/18/2020 06:03:39 PM EDT [facility] F79 Unspecified intellectual disabilities Unspecifie d intellectual disabilities Diagnosis 09/18/2020 03:18:00 PM EDT [facility] R00.1 Bradycardia, unspecified Bradycardia, unspecified Diag nosis 09/18/2020 03:18:00 PM EDT [facility] R45.850 Homicidal ideations Homicidal ideations Diagnosis 0 09/18/2020 03:18:00 PM EDT [facility] Z11.52 Encounter for screening for COVID-19 Enc ounter for screening for COVID-19 Diagnosis 09/18/2020 03:18:[address] 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 R00.0 [id number] Sinus tachycardia Problem 02/28/2021 12:00:0 0 AM EDT eCW1 ([facility]) F20.9 Schizophrenia, unspecified Schizophrenia, unspecified Problem 02/19/2021 01:00:00 AM EDT NETSMART ([facility] ) R32 [id number] Enuresis Problem 09/18/2020 12:00:00 AM ED T eCW1 ([facility]) F79 [id number] Intellectual disability Problem 09/11/2020 1 2:00:00 AM EDT eCW1 ([facility]) K59.09 [id number] Constipation, chronic Problem 05/07/2020 12: 00:00 AM EST eCW1 ([facility]) F20.0 [id number] Paranoid schizophrenia Problem 05/07/2020 12 :00:00 AM EST eCW1 ([facility]) 528.9 Other and unspecified diseases of the or al soft tissues Other and unspecified diseases of the oral soft tissues 02/21/2020 08: 33:50 AM EDT [facility] Surgeries/Procedures Procedure Description Date Indications Data Source(s) Imm: Flublok Quadrivalent 18 years & older 0.5mL IM Influenz a 02/28/2021 12:00:00 AM EDT eCW1 ([facility]) OFFICE OUTPATIENT VISIT 25 MINUTES 02/25/2021 12:00:00 AM EDT MEDENT ([facility]) 25 HYDROXY INCLUDES FRACTIONS IF PERFORMED <td>VITAMIN D 25 HYDROXY, TOTAL</td><td>Routine</td><td>11/01/2020 5:33 AM EDT</td><td></td><td> </td> 11/01/2020 05:33:00 AM T [facility] LIPID PANEL <td>LIPID PANEL</td><td>Rout ine</td><td>11/01/2020 5:33 AM EDT</td><td></td><td> </td> 11/01/2020 05:33:00 AM T [facility] EKG 12-LEAD - CMAXX REPORT <td>EKG 12-LEAD - CMAXX REPORT</td><td></td><td>10/31/2020 1:09 PM EDT</td><td></td><td></td> 10/31/2020 01:09:26 PM T [facility] EKG 12-LEAD <td>EKG 12-LEAD</td><td>Rout ine</td><td>10/31/2020 1:09 PM EDT</td><td></td><td></td> 10/31/2020 01:09:26 PM EDT [facility] EKG 12-LEAD - CMAXX REPORT <td>EKG 12-LEAD - CMAXX REPORT</td><td></td><td>10/31/2020 1:08 PM EDT</td><td></td><td></td> 10/31/2020 01:08:09 PM [facility] EKG 12-LEAD - CMAXX REPORT <td>EKG 12-LEAD - CMAXX REPORT</td><td></td><td>10/31/2020 1:08 PM EDT</td><td></td><td></td> 10/31/2020 01:08:09 PM [facility] EKG 12-LEAD <td>EKG 12-LEAD</td><td>Rout ine</td><td>10/31/2020 1:08 PM EDT</td><td></td><td> </td> 10/31/2020 01:08:09 PM [facility] EKG 12-LEAD - CMAXX REPORT <td>EKG 12-LEAD - CMAXX REPORT</td><td></td><td>10/31/2020 1:07 PM EDT</td><td></td><td></td> 10/31/2020 01:07:40 PM [facility] EKG 12-LEAD - CMAXX REPORT <td>EKG 12-LEAD - CMAXX REPORT</td><td></td><td>10/31/2020 1:07 PM EDT</td><td></td><td></td> 10/31/2020 01:07:40 PM [facility] EKG 12-LEAD <td>EKG 12-LEAD</td><td>Rout ine</td><td>10/31/2020 1:07 PM EDT</td><td></td><td></td> [facility] <td>EKG 12-LEAD</td><td>Rout ine</td><td>10/31/2020 1:07 PM EDT</td><td></td><td> </td> 10/31/2020 01:07:40 PM EDT [facility] URNLS DIP STICK/TABLET REAGENT AUTO MICROSCOPY <td>URI NALYSIS WITH MICROSCOPIC</td><td>Routine</td><td>10/31/2020 12:47 PM EDT</td><td></td><td> </td> 10/31/2020 12:47:00 PM EDT [facility] OFFICE OUTPATIENT VISIT 15 MINUTES 10/29/2020 12:00:00 AM EDT MEDENT ([facility] Immunization: Flublok Quadrivalent (18 years & older) 0.5mL IM (Influenza) 05/07/2020 12:00:00 AM EST [facility] Brain W/O Contrast, Followed By Contrast 0 12:00:00 AM EDT MEDENT ([facility] MRI Brain W/O Contrast, Followed By Contrast 0 12:00:00 AM EDT MEDENT ([facility] Results ID Date Data Source [id number] 2021 09:52:[address] [facility] Name Value Range Interpretation Code Description Data Catrachita rce(s) Supporting Document(s) Discharge Summary [facility] AYMRZp2yBcVKBnLe89/WONoyUJKqj4LcEFlgCMa2OQtlEUInF1MkLAP9mB2kVSI7LZsZVmQdWxFvTKFc lbm [file] AUYvAVmvNUDaYrXiSBAdYaG2KkZkZO7QGz8BOmS2FIR4gITdFj2BDUvuVXvEDfVzRP6KJVk= ID Date Data Source [id number] 02/19/2021 07:23:[address] [facility] Name Value Range Interpretation Code Description Data Catrachita rce(s) Supporting Document(s) Thyrotropin [Units/volume] in Serum or Plasma 3.970 u[IU]/mL 0.270-4. 200 [facility] ID Date Data Source [id number] 2021 03:06:58 PM EDT [facility] Value Range Interpretation Code Description Data Catrachita rce(s) Supporting Document(s) Zonisamide [Mass/volume] in Serum or Plasma 10.0-40.0 L [facility] (NOTE) Det ection Limit = 2.0Performed At: [facility] [id number] Sanjai MD Ph:[id number] ID Date Data Source [id number] 01/21/2021 07:51:51 AM EDT [facility] Value Range Interpretation Code Description Data Catrachita rce(s) Supporting Document(s) EKG [facility] FAUJQm5aTiYRQwBgs3QiXaAtRADdDD0wmlj0I5S8nMKsK1BiiFMpc1ewX4XrK2YvLHZnBGRPWY2SzHDv jb2 [file] OMST0V7Skq/rBGqOlwP4Nqjt2lDEvdzdz2LZ8+ss/5T/utTVxj//1X0o/7jVv3//9//0z79s/PP//long-term +Pvvn//+Pvxf//pv/+Nf/81//E//tFr++Y//81//3X/8y/5+AwBHwk9E/fxvj7r/+Z//+3+NUf4x//vn P/1zHsf8+/ff//wv//NTgUJcI8BM2xDTNta8IN1OZn QAwQxiCrpSxgwHDpN9JrwzDMePEfq9SiqaYd6WzHnMn1NgrcFe1PtsmOc0ltchNm8f4tvWb4d9kgQkXr 1y8DgOfnu9CrjqZk+C8NvVw5W3CvSqAa0IwQdMa8KgkjHm8JdmhMs2ijzfRh848bpWv0692uApM5209K kOvn53rlziU5+l0nzGg2e2HvJfVm7WqXfWz4ZzlwLz 0UbacIj8XitlaYwRFKRfysBp3TzykJw7Bqivi96h8AJx3Mphp52s6EDe5Xnqe28+8oRcM3x7GwHlvSiA L973Jhu4o37Ver3d07QvP+m8ofrAzu1uNvWvJ4hEmz4twQeXu8BqecCo5RzsdSo1VqgrRb2T9ofVf8S0 ZzWsKm9X9PpIvaD21w/ayoPy49Ng6364zkx7u28pjh 8v76CmG+c9epcZwp3tptDeI8cxmFbKFma4XW5M97/IROt1u4+xuXBwLj+nessa+MxQI2L33BQzahD1FUSoE bJbkoP3dMvTcnB3+VHz0RA/gXKnshSj15InMlflFOJgjtLCeJ/NECAsZ1ucmbVLfjCxJLCizvEsy0vKa MlsfrLtRLZ+tGTtMR+eImRmNgPMzFSE/vhJkZyYj/s [file] xMf968+OTriy6z1/0bvu/7pHikdWw29AKn0039/u03 H775pw/mI3709ius4h3/9/XX33x6+/DbX71/b6Tm5v0Uf09/+Lw344ug/+O7D59/+njuNOa2UwHK55k5 T++/ePvnT5//+W75Tso632i412ntxc2Fc7+/+9VLCj/26o0mu7k0d/z8y/e//ov94QB24iQWmY/tank inspector/+n g0cbRgr9U/jy/auN3/z6N+8+nOz7H484+vJ+4O2bf3 mBoD3j9jWb/+XHxexjZ/9/mvD1N//yEuT7j++//vSS1d+98Znt175j7JbDqRXuo2Qz18/78Gr/3Um++v j2j+8+vp7+idvvsXXf/zMruk5F76/ct5Ml/N++AvdUi4gVf9Vlr/jFL/3vK2xvmyb79//DX/nwmlKwXC /4+19Ed6ut3hP134y/A3Bbiw+3jcA1kqBuQATYmN21 IUs9EB8Ung7jW55QrRgh0vizoE/lQ2dZez93+O7fv/nNO342w7f//r8/t9h887ZUD6+9/dcvX5/4n3/Q 5whLgq7/85/+/Q9/+f711C/ub486ri41+6e3z//j2z/9jz9++wc+d5X2z5T+8je/BroP/taqsVCg5C8j 1H/33Z/+4xs2u5h4x+9+NEdFVNbRF1Zqj89/649LP9 hLID8u/YC/+fD2hz/97bu//D/f/vEnij+y/OYkl3SW9Ku/Kr4olS2+vv3b/3rV/Q9//tOPi9/H7/2o+C lmkn735a/155bq5dixS8Y0Dp+h+/pB6buC+3DM6Cc/lxuWHYF2v7Q3m26rz0U21bwmvj7s5xy/97u//v 4hcr7eWG//5vNPP9+BBf/tP73+nf/7L//tP//o7vMd /vG777/94w++8PoB/vm3/+v33/711dl+FNLE1bQ//UrKn0vjdo288//+2UeIH/785+8/695+dMNp76/+ /PvPhPDeVhQJGPYs+d3v/+NPf/t1h11vyle4rYghq6gkt2v4g056ovy/++ybv/3Hd3/5+0fxJSh1+Jtf //t9vY32mF/uKsf1h70eO6Y08ukU+s23/+L8F7g978 [file] YqqiJc9ydKL6GKAzWuoFNn8Jj4PynlN9cxAdTeY3LiJjOuSsAZ3V ID Date Data Source [id number] 01/20/2021 08:40:[address] [facility] Name Value Range Interpretation Code Description Data Catrachita rce(s) Supporting Document(s) Consultation [facility] XWYXFn0lGbZKYvYs33/TMLgyWLPjc7BiEPswCZs2AZrmXDYmI5XdQVA1tR5tNEK0OSsOAeNyIySkVVK7 lbm [file] ICAgICAgICAgICAgICAgICAgICAgICAgICAgICAgIC AgICAgICAgICAgICAgICAgICAgICAgICAgICAgICAgICAgICAgICAgICAgICAgICAgICAgICAgICAgDQ ogICAgICAgICAgICAgICAgICAgICAgICAgICAgICAgICAgICAgICAgICAgICAgICAgICAgICAgICAgIC AgICAgICAgICAgICAgICAgICAgICAgICAgICAgICAg ICAgICAgICAgDQogICAgICAgICAgICAgICAgICAgICAgICAgICAgICAgICAgICAgICAgICAgICAgICAg ICAgICAgICAgICAgICAgICAgICAgICAgICAgICAgICAgICAgICAgICAgICAgICAgICAgDQogICAgICAg ICAgICAgICAgICAgICAgICAgICAgICAgICAgICAgIC AgICAgICAgICAgICAgICAgICAgICAgICAgICAgICAgICAgICAgICAgICAgICAgICAgICAgICAgICAgIC AgDQogICAgICAgICAgICAgICAgICAgICAgICAgICAgICAgICAgICAgICAgICAgICAgICAgICAgICAgIC AgICAgICAgICAgICAgICAgICAgICAgICAgICAgICAg ICAgICAgICAgICAgDQogICAgICAgICAgICAgICAgICAgICAgICAgICAgICAgICAgICAgICAgICAgICAg ICAgICAgICAgICAgICAgICAgICAgICAgICAgICAgICAgICAgICAgICAgICAgICAgICAgICAgDQogICAg ICAgICAgICAgICAgICAgICAgICAgICAgICAgICAgIC AgICAgICAgICAgICAgICAgICAgICAgICAgICAgICAgICAgICAgICAgICAgICAgICAgICAgICAgICAgIC AgICAgDQogICAgICAgICAgICAgICAgICAgICAgICAgICAgICAgICAgICAgICAgICAgICAgICAgICAgIC AgICAgICAgICAgICAgICAgICAgICAgICAgICAgICAg ICAgICAgICAgICAgICAgDQogICAgICAgICAgICAgICAgICAgICAgICAgICAgICAgICAgICAgICAgICAg ICAgICAgICAgICAgICAgICAgICAgICAgICAgICAgICAgICAgICAgICAgICAgICAgICAgICAgICAgDQog ICAgICAgICAgICAgICAgICAgICAgICAgICAgICAgIC AgICAgICAgICAgICAgICAgICAgICAgICAgICAgICAgICAgICAgICAgICAgICAgICAgICAgICAgICAgIC ObSNIzVFQuANa0B8uhTYExLFDhUE1pJYn5Vz5+VIhJElEcKOU8njFhyB6YMS9iz2YaYOrwSICki2KhUR x9KB0UQICjWFceRZ5MFQdagp6HMTOvNFLpfMHQm0nu HiOdBGP6TPTdRysyCS6ILFXxZ5uicmCsWPGdRJIIGEldLIINMKdaQJIJZUMxIFTbHcHtRdOmUGWlRJ8E JWZdA865bjSiRD7JPh8MKkMhAD4new2KSsSgBXLhHhmXErg5EUpqOJ0UoYLgfGBpAKTaYCYRTjGdP0qg o2DvXnNyYLHGIIqwFN4Lt1JjjCSwIZk+Le2YXL8hx5 PdZAtcEXBrSS4qwd8YZQxXMkSkQ5RpyGjeJBClraL5zSXwEWN3YZkfCoGiYMflZuDTiCPvhOizjMwwYN DpUOEyON5eOG1fAOYyJAU2AgHjZXCSIC3YQUCsUSHlnGWrVEKbIEUQOV1EWCjdQGD0TRVogoXwtYNeDA nmTP4MRRUvioSqHzIzGIZXQCa+Cx0ZFR0dd7AcZIqm GyCyTT2rth1XXNfEUbScM3K3bNAjP4Z1PXaxNp4LTPQgGUEoElawIIBRMUkpZP6RLE6avcT9DM0PhLZs SKPlIVMmaKDoOAr6Z08ufUEcKRmdXS7OVAI+Sharon+Jt7HWRAzWNYiMJFwNxCcIPQXZqFjW7XdA9PQe8Vx K5GgYF91rNrypqQjMKnyNY4EHB1mNRZhECFBEI4KgF JbkE5qnmVrNMNtNHTSBzKgO94gyDZhEAOrEMU3KBNuMv2FQQXlY3RbrfXpoKladjHbQWPnKIPSVM4KZN sniaJtiBOetBvlED25pOgyHD0XMg2RGkZlIG6oin3YkAUyQu9LHWJhOf6IRXSgHBMyRWNsZMP0YXHcVp FcNDbxGTHpNSKmKJL7VGPiXZOiNF2DArQmYZHuOJF4 WvdaCMNeZKCxcg6PZQCeQSD1ZHmjFtGoUSHaCLIjQOegRNNdUOGdWHN4QSCeFGAfFS2NVfGxEKMcCWP9 CyOhDBBvUAOqii6PPVZiRAKzCzJ9CVAaFIShITJdQKjmXDUuRQE8FGM9JXIsYWXeFB7NFjPlRSYrAHC9 UYOiMGNqSOVxmq0JJUUgXJRuZEEjNQRtOMLhYMTyGB qxWBCbMVUfXyA3CIKeTWTbZN3WYaGcCIMzMZZ5PvwlOJPnUZAxwe3FPVJvELNuElQ1UYMpKZDuVTKvNA piKKQcLSE0VJS1ADPvFKIhWQ6XXjWtSSHhIPFtYOIuNXNhMOEmfj4XCVHzGSSoFwVuQtKgSLBrQNTaXZ mlGCOqPZD1KGToIEHnDTEjPE3QPwXpROQqCJN3BSRd DDIpRVDmyw0CHEGrUFEvIsH5OpAxPHPmLZCeTWnrFRWsBSU6VlR2RDHiPHHtUN1ZZgKzUDEpHEq4AgOw KAByMPNfrh1VCFLsQAI6UPznKbHzAQZtVHXsMNasDGXoZRFfQXChNFYcTAWiDZ2YOtSlNWLhEHV6KMsz DHNgDJNbtu4NYNLrNSP8ThM3MSCnOIOaZZQaACjfJM YaJDNrVvT8LWXsLBVzMC5LQxVhYHDfSAX8SOlzZMRnJWHfkr2YOGSgKXX6Aaz0SuCwILAsKJEnPWscTU YgMWJlSGC5GMAzAKDhIH0MCkRuANDvIXBvOrBoQMEzXWBmqk6NWURjUEJ8LGvaXwYhWHDhSJVlCYskND MvVLJ2MNM0JRIwVPImJF2EBcZpJMNbYUEuSJJfZQXz LACswn1CtSDkkLomgg1WNQePRc0ZyElyXAFhJLphPx0huBStJqQgTAPRLa0JxsMxQCOvSRCUXTxbNZKl PAGdGfF4FPEcBTGqUjSuExKyCUP9KJFzTpQ2XBNrCRN3PxL4LJXsAFP7LRB1RxTcQnT9F6LnVcc9BjXj ANYuR6AoGFE+YV3pGQt+Fs1Iu5UwplW7afOpGUn6BuC0AJ7BNVUTU5YPVq== ID Date Data Source [id number] 01/13/2021 09:19:[address] [facility] Name Value Range Interpretation Code Description Data Catrachita rce(s) Supporting Document(s) [facility] PNJMJk4rEeFFVjZvp6CqSeLiZDPqER9ania2P3R1jVImC0AyzMMpa5fyZ0YsN9TbFOPuZLBZBC5ScQBb jb2 [file] WvmyvYFfbTbuXDLVUxJ2JuMJVUAKN0C= ID Date Data Source [id number] 01/12/2021 04:58:[address] [facility] Name Value Range Interpretation Code Description Data Catrachita e(s) Supporting Document(s) Color of Urine [facility] Clarity of Urine [facility] Specific gravity of Urine by Refractometry automated 1.016 1.003 -1.030 [facility] pH of Urine by Automated test strip 8.0 5.0-8.0 [facility] Protein [Mass/volume] in Urine by Automated test strip Neg [facility] Glucose [Mass/volume] in Urine by Automated test strip Neg [facility] Ketones [Mass/volume] in Urine by Automated test strip Neg [facility] Bilirubin.total [Presence] in Urine by Automated test strip Negative [facility] Hemoglobin [Presence] in Urine by Automated test strip Neg [facility] Leukocyte esterase [Presence] in Urine by Automated test strip Negative A [facility] Nitrite [Presence] in Urine by Automated test strip Negati ve [facility] Leukocytes [#/area] in Urine sediment by Automated count 10 /HPF 0 -5 H [facility] Erythrocytes [#/area] in Urine sediment by Automated count 1 /HPF 0-3 [facility] Bacteria [#/area] in Urine sediment by Automated count Non e [facility] Epithelial cells.squamous [#/area] in Urine sediment by Auto mated count 5 /HPF None [facility] Crystals.amorphous [#/area] in Urine sediment by Microscopy high power field None [facility] ID Date Data Source [id number] 12/30/2020 09:14:[address] [facility] Name Value Range Interpretation Code Description Data Catrachita rce(s) Supporting Document(s) [facility] FFEHHg2uBsBCPyZzm1IlZeDzLJWlIW7znyx3S3K0mBQiY8VpmJJsv6paE0DuQ7TbWTCyJDKOJF4UfLPh jb2 [file] [facility]/ZCB5YHIY3ypYimoLENke8PY2UnUntLs9DK+h0BviZwvZ7hhGOSAi55JQqBdqEyhGmQ64wkURQa+5 [file] 5/Reyes/7DV7b4z/2JD0ep4pIL3kORdQ7h8CKXarA6YVcY/YfQum9P/XoD1SybdutUtPHvrKiUMMaCxjDG /Ulj3NEOj7H+LKs2J/JElc5e0KvGN9iTistyRuIiqW 68bJeOLkvvNsGAuzwR/Mu+9wpdmLT7Y9Gyzc6Hw5dl0U5UH+25H98uypJ/P9+7fh9+f3Hs+f3/s37f09 4/f63v/FyM6bSkS/jiueP7+0eqnIP34bd40n54dwpxr3/Fy2g9p9r+/t+0fe/5zxyUL+fPj3jN+PvFXv L/x+7F3Rmqv8ccqbT3seyZhabSdx/OKoWy36xJ/x/p HXTv/bwO+Dp9oZJyzcCcS4PSapOV9iT9r/4V4gN86c15/e3TW9FHk2qp/yKpmvl/dd+cONgmMu8NsrY1 7H9+4F7udQvdtX606fg5/s2K1l9IY5+9Nnn+ugLKvj6bCXjpimdgU4ryVdO+XVM/B9B+QdkHfg+w59X/ 8V7egKdp+jI3Qwm9tMA6Z7RJ/D8fvE+/PZ/1lIa4Wy EpkcAS072F6IYQpR/dq/YfxaffVYe/5kqaq4fPH+E688rmP221c6ylXphs/kpv/1Qc+YzjCfoxk4KV6z /Y7xaxi/xdF3kNeknkk81/Pr7sz5hcuiG7w8Ezs6g/q9v/5/PQiN9De+U2xdTc17742n5n9Wy+azE18F z/h9P/v0/gxrhf4ihk/P+pyq4ggpj100N4n9xv66c/ bX/zme/Xw261vIy66P418wfc/tEWspmhdt3321zhQt/POEPS/QY0v460qtvDpi+G3D79p784/Vn/0sya r1R52467+N9bp24CM13//L572AtpwgvkT4uHUYO/a8y+gTK65vuH/A+FwK8z9cN0USo47Ln+Z3upg0Al 3gzumK1++258bfI73e+M2cjz26f0mbcIf1zpNLA12c chw8u2R9osX6j8+ETJ9p97/s6oGJj2h8maRkxC9diUhZygw+ko9Uak19N1cu6lTvx9w/rZTxs/b8tzLG v7/t10a6cf55kgKezg4/+Oo+1/Leed/3pIq/Z/z+3VcM967Nvao1vcX7c/hV3w6+mb8chTX/d9T/vm+r E/Uv/L7w+0Y/42p8FTsf7l8Ehv7k52JdjUeZ36ciSV fhq3i/v+8ofHWfv+XxdpzoW9a+jtmmVS2Dkwa+n/d7ei8eU/zaQ3v+qglfSa7+3aLY07aQyJ9JSO5+Cl 4V2vnlM/blakm1Yjlqn63ZD17jp0/+/FXrsOc+7xgRBDl3WXmKaHFrcA+Zr5JrYng3buNIrAB6+X0eGz z2JztjqP0C08dR+Iyyr97y5/mrNgy/G+px1O/oz3x2 Bjkqe7Ey/rQsN8OLsh++3hxwl449ns1TWhv6HL2ZK4r+hja7MsMs4XT1Z2a+CF/L41e2UL2Z1ycsdfZ1 iY4Q0PCWP+Gr+/x30O8Ypscmo1trv2bUjt9wf06fJ8+Ffg6+mr3q+fN7/O3wI+84ffzWuFs3Rkt0AUfp OfLe58/d2j9vouu3+Aj1xl40I94W5lTSYtcd+sj7ma D+rbTtv+5TShy9G8nu+uCrv+W36SLh3os/+0/nks5asR31D5hM7cylT7QL7sZjcXVF7Y/9ooxO9zqeoK E7/8u4T6H6V0Po0K///O7fTO2/ttTu/KKp2baiftd0dbcoYnKgvaX/DSA0I526y1CvfyD1+WtT6O2ph7 Yy54XtdDH2+dnf5+Ovtt4//iqez/aJifx6Rgn9Ih+u pG/4K+AeSOy83h/XWy+0Bf+8MP+nhffX96mf8hzTCqqqNvvpL+CrtjH/zkQUWc6ZzTOTwt1gD+p5eLLt a746SeflugYl1Iwl344ujyQi1z6gc0V/C79j/A1SM46sgGu8q2k7ui27/qzjr4Vg7+dhEnw5XDsF32fm f+6BS7M4pE/76ic3ar3Vupi777/+9/Lwxsm1/j6/9W BX/Crq2aj/gFm26ar1FajO4/NXPfCVnh++9wKIM6L1+05/dyxNM4ran65P6quy5+r7lu3BGvJlSt/e6P GIv02ilwCasfHH1/r63MTQylwUh3MFPVL+w1cnm/iA5NKbe+xE1dS6mh/g9SYN7J7ydeOf66pN6ipino iqC1+NyJkueH6/3qye57RCN4+80TpjYd5+3kfI02Pp q/HNm/4+D/w+ON1uQ9Nkr9m1mR/niD61ycaXhw48J+8vXteFr+J5f/3wyZW+z6N8/XBX/Cus88arq34H Pt3BV/z24dqnP51Do4kUgjMi+7fwU5ixL737husT55jj46kgO+L9bs1Zfj/4/cG8kd29WbdZj+uKX6ld q3j/acn12pkpEb8rDrwO06eM+92A59bQD7k3+LnbW+ 93xa+i/ze9O15fwK/j/f1+N19d8pz171+25Y4Az8grG/lOg6l4Rgyv4iu3q8K/u6E/sGeHvBG/imf8Dn zb09zrz/2tj/p866M+Ia/iV3p/vvVRV/wq3mmv/gl5Fb+DMctN5c/eOEnO7/feA859a1+p0ri7Uirl2m oh0468AaDc0x2+3rNwg7fQ4/J61vA7uJ0Ox6peXW4g TL3SnwlxVk/F7+ONU+PakA5mC/ki4av7/ORd+V7Pc7Or/LPwVTy/9WBfmI+Er/T9ayai7F7x/nm//ZS+ 0D9Kz1zAhQ/lw6vdwqsu3xebfas1vRwic/H8ujOgnlfnE/W8+SrO383Zkg21nJvnT25j+Q8y5wcfIJ01 D7w/inY9vB8F4hzhweqx2r4n7b/oaiWcDuvfDHP4l5 UmdllTE4S+eOzA/uCI/UG90/B7e+1Jnmq8sFeO9g/+amh/MNoy/P6+7xC+qqnoV60nYW/nHDtNr3K+X/ h9f+x0Uv11SUsgu6qX9lV+GohfDeGr+4zfO35/8jFkbOAl7JlloEqbXm91me7Hzc1htb39y/D+Rv8ffh 32uGtE9ifC6I42bp/5gh6C5iG1KRGvXwBLp2Tn7CmN +WSSofzs5onrqn+of+F32HPf+Q9wL98ZbIJnYP14+6FD+8DwvoBt6hLdipawAXH4ZMmIsJPBlvxi3++8 Iqeozug10cMshnxvGm+djOLAgSeh+Pv7/vr/UElpcmaa4pSSl+Oq3WRgLHfuzTab9Wk9/uajYW8+GsJX 99leHxzvv/3fYfi+2lfrMFgC0mf4YYF556YxN0K91l XN9hzocUCqUTtlqeECxf8/+9QYBjw1ULgK8JELCGv07E9R5Q+O2B/U+943YK0Ik7JYzUqu/lRqA34K/u IbQ/fQ26l2EfpW/lj5bumssu/nfbFuIuoG063/Gn95rvJ52A+Fr+3j4mv4qJ6/p9JLcawnn78Og8/9C/ IufN/31echTkogQsfxJXPCTadVS9lmuuZU7DjbfeJx 93i29/zisSPiV+oD/JXwlWz+1FpoxTwoyP3JISov7Jx2qRpxqO6oXdcZ7/eDr/6+mRJ2P/HJupVh+4lP Nr3/wVd/30wJuvUbhzypvxGHPJm/88/lsvhfrltn7R4Gjn728MJOZ0/Y68VepRqlv12Q4240WfbWVvrp vJnFn/xr4AjWe90fR8/taOvIG+jQz47Kv/vFY0+ub6 x/JrqbHnz9vVTk7d8OKjwZvya/Vt5+ecM2uyBOu49JtvN5Kh4yB6XyveI+//sUN52UBf/m8cxsmzAdpG 9ZWah/4/eHn62++cjqwxsGfGX1+DpyT93VlvJVj/6gYX/A0pgZZDDr28d95wwk5iw2n+N3x+/za/8njz ndbknH59ab6B3sKxqFH5yotl+b8FX8/uJ1J3/3ttva v2dru8j+1rzJc3g54C9+6Mnc/P9d6x75Yabp72tMB1dq0Q4B0A16p/D+RruQt7/38SWbe1lmv5//5Op+ nxt+b/h0j657/tuQO0Yus9oRlrNssBFoL14z5+mCX6jnURdz/D0Qc5fyK5967uBcOgdocW33/uZN1uhF 11y3mQEXp4o3+dfGWy/WXAgZ6arD+Hzq29zImkoqzD ml3ivLic895zL+wd517q/xlPO8olub67wbHE/pJfN6WX2mf12ouyns/G3QOrJN8Ulji/MDROm30roht/ FLl3lsWYJf6OhBDJm5GTxqfXfauG62/HNT+uaXA08m/F7xe33+3BWf/Gbbfp/7F6+hVOyg15Zr30erZk jqPqMeR/1K8u9kdVm9Nl1Fuo/8/boRprDPStm6e074 1oSvVHa+/dGDLxxc25lFwrrfDkL/7UZjgfFKKcaJ4918G/xO2PPE+U1Rz150SfgYhwpz/oJNzEfrxXNs vfPAtjAfrbfet/XiG7be+sjWW++r6xzJ44C7NL/ukUUuCd1IhuMuudVgibPxexTIjqmbH2sd10/4hm34 z038d8EwbjpS+4V079gkgV3H6fkj307jU0Q1bzagUs iL+JVtx/dDI1qnC/i+e+H9jd9f/MojfhXPX/30mpjkzLy8Zfv+8tLw/lsvOOJXXgbqf/E3cd655KCLP8 /18ta/Kpn9yfVApF7/vAPc65Zu53PZHwEczkBSJEzei0/2+uIbXt/1eXdzkX8/Y048qzB09Tx/4P2B9y FvNbTreP/wwbz3Jt0en3x+5xANnjr51lca08iqo03a x0bjMhf2hm/rhWq2whmiwwgyf749Gpn+tKwOt9F5Eifq/D7x+8TvC/7Z7JpR8m9wXV5pypGK0an/633v b/x6h7z9+Svvb//IFb+K5+eekqHqm8R+tx/q/b00t4i5b1XuaDcd+PW+0M+N+t/+vo+3v+/KC7ANig/F O92ygX9OW+l7sCMTqAJMhMhSLq/0F9Fzqq9MK3/Justice/ Y8HL+/8xs+9fvJid2fQ+NmiXoq4hzmiJf73Yu3+LbD0wEZY5v6UpEC3qr6g9nqJgwLkp3+user interface developer/shdvd+ kXmcMJ8Y/8294Yvgj1lQpvfVg1o/1dHkgW9ml+f/FJx/5al8UodBanhGfC8sv0owGjHNJgnV/NR+4vHu s+9q6W8isnSjZX0yrSm/p8+ws+33lgR/kS16TfYg4+ 8aiQStk6ZsWuwDOobrMdUNv0/j6++CIRr6r14/tO+OlloGamrz805DLdj/i+c0Mu+SuDp7db/K53/tlx ak0dku0N0Jf2sqgdsQ47I70ectl+f9zeZMt/MH5x/zpJ4Dxg/J8lrm6y4HF9bZ28t/zVT3krAOrq6p/3 F584Bu0fR7ane6k7f/Ankur/7F/cIjfFsk8lr4n255Zx [file] e6sftlqGecExpacy4b55n6ugvhmFyx6rbbsu1v38q+munmgV9r5vxqxo8a33f+aewaiDKyUlkzeS3X72 mzghdtlJXiYtnwdO7F50o4vjkxkFssgxfuvA6W35o5 mhwmdYkhEm2g4P0bdW341bbxx/VX/zDPOFXfnEecnrsSOfKkNzzt/o10kkDb++dwyLMr5a+S81bGhWR6 rtnM2EX6UihocP0z3U2dBbv6db6izsIPycJ9kH5xFy0IhIXQ3/kVS29zJCA4TrQjpV9Jc+9ln8jpFIQy PZA+uA1SX5JkLY6PB6c0LlfG+wOpO7tEc0e+HT336+ i5z/aOdQ/eb1/pj3QN3f49TP01m0/ruWfg/gK6Cklwn41f9x8b7SOsDNzu18m6eQ/62yRp55HF8Pv066 q2t/CN4v1dyyJJ3s4y1du/zPZGXd/py+cNuG9q92xtGC/eeajP5Xm4P/BcuTMD3rZu/axdhMYb1L663l iRcX1cc804rasOn25gAX0Qn8vizUJ+Cu7vp/7aT/11 UD3j4bwugB311W0Kg0PVM1t58c+opDuRo0NedG1yYTc0cC9+PdD1iGfSL+7vRw+B4cw05CS1A7XiB5MF 90e5iQtVWNaQ1HK64/Fs12uww70yxnigz14UFudNjKiOT3w6xoKCu1LB97rEZ/y6Xbg+2SfSO6i1pkBJ 0V5P3J/srLQoxN58oYaiFsjwS2rn/v85zv1q58O/xm iYOTGV1zC2k312Z10nfdkO4mzJN+830J8T/ShkU718B9eNM1uL4xzN6qD6BtrosSsGmN3J7EeIvjlwpE 3B3b8GvjMa5i8FNhfVVBnqUN9Z50snzTYl6cmSai48LpRlh2hhw/gwqwzk4hmpzk+vFfkrGmN00jydU0 IaGV8941pWGxzLon7qH36awj+k4wvJzjeYq16U4K9r 6QPpA+dzg1BWire/4Dtyynm43mZoqrzkqaxRaiwtJ5JXhne0yjSuengFhd6BL4Vh4dh+HTBg9ug896wx SL/cA65rivL56qmgnGvpM2/y5/twz85hDnjD/zN+ZKTcO15FgckQ6qq5HD80bhH91qX0giAsYD86N3YX 2Jozxkm4qlHdF3u/9rMs+6cYkdj7IflqV6DJP1tqry vSA+JY2aqcLw/Z40sw8HhNS8Cdbb3an/czh5TfqLtAv/yU7kyiv45bsl81DmtTkqMQdNI4u3oLEaGjIB /BqKHs1BR1a9jG2NMR2OF5H7HzWQtQpfJum/6XfbWvcT/cqeejU1d5rLP9jmYp1itmxmlnX1x6+oad/y IpnD7wP+3ro2c7/8Yo120DJP3Sns+CGOYrO/akLPtq gg1mE6TIibuGVZ2a3ed3qgLpR2KkmT/7qoKaTPuqtglN+2pf3+1x9RyVjoWWDu75skCX0Rpmo07PHU+t +i/0czrs0Tys4PFvN9rD4Rw2Jt8Mw/tKaj/SbV/JKqt2yv0feauAyZDuKNpcFzGmhni1BmLO2kqXSIff xXvgvub64/fF8MSkoY+98ucGht5ZEj/3tq+kVodv+0 axnAj3g1jW2KQkawBNXvniExxDyj54cUkx++sp97PPTF+oxcBpp5Jc4NLbec7Q70F3K5erjp1vf3dF3P +4V7Sg761w+7fmF18b/fz/SqI/J/pzoj8n+dZThWJYqhQp8orrz7V99Ms3jKD8keFj7bvH6xcer/p1Ib 4vzJOwqX5Q54wgBA5RU1kMtRcKZrvF6XX++3Xeb1/2 5v6HyaWoaPgOM+ueZV/VNdoL/qqDv+gWhyg1Y3xtZO8RB5uVjJfAYlaXgKN7of2I5X4in8fh11fFpVeV 96iDv+rgr/qyr+Z83hd/RcH53mle5Ga2ixweY7FkAYrfR3Gq3G05HR1J2Cc3RS/48fdp4gy0gh9m+rx/ 2Vfr/cTv4bKplgJ9Nsmk1VuRS828bx85t5ItGSvgC5 MKysN06fqBR8e0+j36uoh4ghbnvK7lavp7UC/9QgKD3hn9KHg/gO683QiS+6oPjN+I0EdVhi6eM96CBv 8LfZz/oz7O/1EfgfRE+qem7QQnrh5/wa7n/6gv+4ckPrwA1T7wBkptCF2FT3Uc7u4wumLLioRz2E76Pr UnUc/D13U7/78d/RTBa2FlHY2ODyyGoe9wfZ4CPc38 tNfQXjv/v93O/612Lzgid4dv9s8Oc+qG9+tor+Q4xaY8J9okKh56r3614Mlq/GK2vHt6KNh9y/FXdf/h 25ukUsi09ANhD53DmZhQV3/V4/iU1wZmwuFa/P/2xV/ZzJUfhT23Ycqq2OB3EQc/1FShZfY27R3x7Y71 5M6rlEW41M22eV4M7ifuW/yqNq5hn9/fvo6qrY250p r35DquhC/i/YK/0kgs23OV4Bt8+Fqw6E1ZLQt1TEEktl3u20vfyyUy/nY8UAi79wEwf/dmZMe7R/zVAH 78vc8d75v0Cfit5JUeBFqiR6BP7Oj3K1+NZV/i05Minpw6gvlE80Q7p46w+7Tscpt8weWM+e2t3LySHQ mG+h8pB4ZL1MN4LYgla3Og+3nIsZ+MDIG8fIndXF9i y6VuiyPWdwhjjL0QxcpIVD87CPvn8CKiXUtQCxmeB6XT/Ip24aeTVveWmw3+90cX3C+1moL7N35wrZSb yC27doD5u90i5N01gr56fYjF5rsH/IdUEjGBj8Qhtc5u9Vx7zSZpqHQSlcPE4oIwD39NrvcV+tpbU8ag IRiGW8clkOUWp5L+1o/W/Wd+HrU+LZwWDIkK5xa2qv C9p8r9b7lJCEobqlOMyVLlGN6j/bxhWEkGQK7vGF//haGK+a1aioIWokZ86IjNaq3/9QL1B5I5Id5Cdm JK6TRDH/BXA/oSLOFiS6670OoNf8cgNjwCMV9g9VQijH/ZzzDs/O1OV5Qu/0Ltn63mqa8GhrZ1kaOO/m o43q/j/XrH/Celc83Z4qxrYFhjb/t1vF/H+5R92vTR xXzleL+B8av5c4Y7xPS8AfS+A8Z66rU9/a79ai9MzeEK2sIT0sgifY/iG+eBj+Na81eHgvBgf+Sofía+t1 z+EmsmQWmrQXWUBQBjclmzINTDokun8ghqnXzkff6Ya+Xh0c3bLOC48aVzVOAz4zShTTuhPrnh7lfaUp 4kj3h26t5aQ5gn/10TyLJCjw0Y0+tPMcI2OLwZ9eJs W3Qv2PThP87juOFm/vzarzzU/sofía+4gYXdCZa63NTK1mxfnAX316hZI+rTkjqSa9YJ6/yw29U3hjH/pe CvFPyVgr/S6/A5eh0+H4PwKdzqSF+l4K/7lyM11qYw69su90x/ac31Eveqk3Oho2gF6ilB3dQYbjQGV8 r09pnGB8WV5oCdauPMeyCq2U2qx1C0ClJi+n6w7q0I +3cgEjulS9CXv1jb/TeexnSN0G80rzTPjPBA3Q6FuvXwCSb8Gh8Etatkmkgb/ln74Z+1X0hHe/uxJxX2 lcK+UthX2s/2qM9Mk8nNB2o9nP+1n/fXSY2y7MpEeuSv87zh/fZA/dCmskm20X4P6XF6yI4P6W5o48Q9 wV/iGRkKbb163kQG+pIaV34Put6AMi49NGaz/ED5gX QG8Ax4RiC5tRX8SPZ+fAglIZxLLdBMQspZyfw6lR+N9lG4GCX+zYtzVWqTpd35DlWmG/F+OwZU9xFy1D /VDv+rziovLbw1a0bef3cs8EbKbu4+K83xrYW4/D3h3Pku/gR/vrOfQJqIdxM9jT1Tx+7Wqn06rO4cSp //C+zgb8IZgtEpnQ98/+wn1Np/te7pKH+c5/pZD9Xi r9Y9Z3+hpi6CY8gu/0rdcX/g/kA6vkd+/x238W6NZ+jG2N6jwzBJ1ft8X0L+N06HJjv7F5Z+K8X+K8X+ Jd6NlfGfiR9YO1Tp9zSm2YvQ/bfj2PYwLy+SYv+VYv+VYv+SKsk7PXlpjwA1hPK/lSbaC/5KE9+jxPcI /JUm3m+e/bGaZ7+QWZyenOtwF5Kzm1BKDJqmP6S45e sQV1dsyC9+/dyu8/5b65dvI7F+2tf+Nessa+6ho8fjfIYQIn2sL66Fksl3F7spf4uM8nP/GwlU2vd/8rama [file] //Tt15/+/MHGFw3Q24kfdA8oC8333yo07/9k/O6TT9 7e3t59+fX7z7/49O3dp+/wpf2tmr/+1Y+gegchg8Bs5W4fHspltVmZ9927/dXbu89+//6zX/+d2+4P8H 3bF1+++/WrEp9+8su/y7SpDvcd9o/ePvny17/5+N2nP3/77tfiF1gnsS17v1dqN/kfX/8kxwE5p494dp 9xHkxuUk56++rzX37x+D0t2r4u/kxap140lD7/ffvd x1+9/eLLr7/4+d/PpYoWj38Ize/u3//8w1++/dPbv/3X2yff/PAf3/zwt39+e/h0l524p7/e/vCPTf/w T2/ff/zZQ93ftqdlE782bRL14/b1i9gqMs+7JsU5o36++lc+ZpTfdP8e+C+/Ou9vOuT39ll/BpgS3CiQ f7n+dJCC5Lohm8f8svu7aYG0XxJ0lMbG5KlbBcxLpd ynGaTmvuHdt//+7Q8/IYI06Mi84xdmhlj6c6gkkepcb526+bsP2to/yHbU+7M7X+v81Du627C76VL/+0 C/0aVBUp5ndpEHwrQ50109a031++Vik844Nimjb9tt1kai7/ZRjf0HzrIVo8WLJ3/gb969/rn3x844j/ /55j//CxUznG2Zp+q+sRg/Ln1j//ruq7c//e9X3f/8 /Xc/Ln76i/iT9xyYH/vX9z/91/d/1VxWY4EMF414pje/AL5WcGusrNpwidp/ZX9vXd5CHN/9du448afh vPvJ+7dv/u+3f/3vg+N7a1n1dNmloF/J3An/n547Ai5/9cMf/ulHd+/38Itv//GOp71htvEJ/JNv/vcf v/nrn7/85wrytF5p/vm7H+c/Q+X6z3/343sbXz37/v u/fDQu+9ENu72/+a0ASd6iBcTWrJPl1I4i/bd//I/v/vzHVwVfo+8eFqnV164aLCuro/7t1ev+9NGXf/ uPb3/Bnawlx5y6ROC/+eZ/rymA4q4/9w+S1JeLu9jGr8HL8/Rwung1yq61AJ/68/nubDw5KBdqW8pJxu lpug5lu9/hzpzLDA9J1eIXMsrLok23+0Xmg7jp2efy 8/0VLTK8afejugImgCBwHH0QCW9dz4QoDpW2WVJrp2CuIVekGTz5ySUwIRgbznHoh7IrfrtqV7Uvy9Yh ImKfBGZkMqMdZfi8CAUvPoZ4qQIzJqYyNWRtJ3AvHXAlPjJ3AqOdYVNQPK3HKCHqfhRvTrYiSYI+PmVu JH2xachmOEEcj0ZjYQseNBbzGEFkB6A8sPwkFVCmZ8 AazC94IZApJ9DbspX7CEE2GFWsJeJlDTTheRPiJJHgACH+JoUsSD1rihtxEOAwn4NsESjtTGI3eM9sVK xNJWCGCWuJWYelMjX7i65eluXPCDRuEGTtXW1VsyMfaTabmzIqzJUnKEM0FnEcDQV6QZxsCRA3BBBRVP CfXNDvTYHxCIStZ1CklSutCTcOOKNQDMqJRBanGvFx i4O9BVCrobOHBINCC11aHDaBUdMBQXsjEMK9GEDyACexL6H0PeslD2RjGC7YK5ZtKHRfVOUADQAhehGh MV1UjxRzmW4dKOxIMKFGMArFOJusFcE1u92latVNBZLxYYKzECddYPOhVHAaTMXnQQAeANRtRWLpWKOi GE4PF6YnMKNpAVKWEMO6p9OhQGErzwlpyypySt2cbl RvYmo+VjxjSDMoy8SwAPrjK5D9dWLsA4QzF5BgMV7MkEPgEPfzAXDbQMHaPLMkR012ggZiCT3+ZW5kb2 KfHgplVBDGRRWbPJAiZCIcEJW6LyThKDDnXMPaLVVnWbH0ZgCvMyHMVKPxHEN2BFonRSKhUHWoSOGzSS fcKFRzNAS5EDajSVIsKMUyBU7bIdHlSBUgNaJ9DWQs ADIaFSAtatWOTFAmYVMrBTBbXAL4LLCdGNJhTOmiASOjJRRlVLP0AHStAKKbXB5iSgJuNMLdHRHgOfka BNIaMOPstoLHLYPoVIKyUHQ9XsOiCDGnBCNcZGgjCYDwMXUlUwn8MMFgDTTjGN3yNrBjLDKyJYW5LYrs MDAwMDAgbiAKMDAwMDAwMDUyMyAwMDAwMCBuIAowMD NzGAFoKdDsABPwLWDyNW0vTnAzNHCaSOZ1IQJxLLIrGCQjdpBRUCKjWKAbYWr9VETgOSAyJBNnGGpfUF OrSDCdYNM7NWUgYXJpMC1vDwVsHDEjLIVzMYJvGOVlYJRnbuAHTLHeVIUmDRX5GUEtXUVwPIWtHYeuSH BoJMZgVos0NCTyJSRkQC1iKgVfBEChIBK8LQLsXPKi DTXbvcJVAGQdTCJ2TQG8CxPaAVLqASBlHGnaHIZnXQObAbN3NGTzWVHtQH6lRjAzJMBaHGZ4TwOpTVJu ZSOytjOPXWYbENKuCHA3FwXiDNLnDGNiROecATFfSWEkLNJfTUP8UBC4AJRfVnOgILenWGOMHQcZU3Rw xbGjYcYWH6joGi4eFgScHPYCA6Ybh5EsQGXlPIVNWj1+XpJ3ZLD9mVIlEzd9LEo2IOamYWLFEo== ID Date Data Source [id number] 12/29/2020 06:59:[address] [facility] Name Value Range Interpretation Code Description Data Catrachita rce(s) Supporting Document(s) Bicarbonate [Moles/volume] in Serum 24 mmol/L 22-29 [facility] Chloride [Moles/volume] in Serum or Plasma 105 mmol/L 98-107 [facility] Creatinine [Mass/volume] in Serum or Plasma 0.77 mg/dL 0.50-0.90 [facility] Glucose [Mass/volume] in Serum or Plasma 83 mg/dL 70-140 [facility] Potassium [Moles/volume] in Serum or Plasma 4.2 mmol/L 3.4-5.1 [facility] Sodium [Moles/volume] in Serum or Plasma 138 mmol/L 136-145 [facility] Urea nitrogen [Mass/volume] in Serum or Plasma 15 mg/dL 6-20 [facility] Anion gap 3 in Serum or Plasma 9 mmol/L 8-15 [facility] Osmolality of Serum or Plasma by calculation 286 mosm/kg 275-300 [facility] Creatinine/Urea nitrogen [Mass Ratio] in Serum or Plasma 19 [facility] Calcium [Mass/volume] in Serum or Plasma 8.6 mg/dL 8.6-10.0 [facility] Glomerular filtration rate/1.73 sq M pre dicted among non-blacks [Volume Rate/Area] in Serum or Plasma by Creatinine-based formula (MDRD) >6 0 [facility] Glomerular filtration rate/1.73 sq M pre dicted among blacks [Volume Rate/Area] in Serum or Plasma by Creatinine-based formula (MDRD) >60 [facility] ID Date Data Source [id number] 12/29/2020 07:07:[address] [facility] Name Value Range Interpretation Code Description Data Catrachita rce(s) Supporting Document(s) Leukocytes [#/volume] in Blood by Automated count 7.0 10*3/uL 4-10 [facility] Erythrocytes [#/volume] in Blood by Automated count 4.50 10*6/uL 4.1- 5.3 [facility] Hemoglobin [Mass/volume] in Blood 13.0 g/dL 11.5-15.5 [facility] Hematocrit [Volume Fraction] of Blood by Automated count 40.7 % 3 6-45 [facility] Erythrocyte mean corpuscular volume [Entitic volume] by Auto mated count 90.5 fL 80-96 [facility] Erythrocyte mean corpuscular hemoglobin [Entitic mass] by Automated count 28.9 pg 27-33 [facility] Erythrocyte mean corpuscular hemoglobin concentration [Mass/volume] by Automated count 32.0 g/dL 32.0-36.0 [facility] Erythrocyte distribution width [Ratio] by Automated count 14.5 % 11.5-14.5 [facility] Platelets [#/volume] in Blood by Automated count 234 10*3/uL 150-400 [facility] ID Date Data Source [id number] 12/18/2020 09:42:[address] [facility] IR LUMBAR PUNCTUREFINAL RESULTInterprete d by:CATHY DonaldEncephalitisFluoroscopically-guided [...] rce(s) Supporting Document(s) ID Date Data Source [id number] 12/13/2020 08:03:[address] [facility] Name Value Range Interpretation Code Description Data Catrachita rce(s) Supporting Document(s) [facility] [id number]/ICNamTEAbh0SpAXniUJi2FPfzFPJeM4FdQRN5kP0uMMD5EGzXWsYaArPzEpQx [facility] [file] [id number] ID Date Data Source [id number] 12/10/2020 07:13:28 AM EDT [facility] Name Value Range Interpretation Code Description Data Catrachita rce(s) Supporting Document(s) Leukocytes [#/volume] in Blood by Automated count 7.7 10*3/uL 4-10 [facility] Erythrocytes [#/volume] in Blood by Automated count 4.47 10*6/uL 4.1- 5.3 [facility] Hemoglobin [Mass/volume] in Blood 13.1 g/dL 11.5-15.5 [facility] Hematocrit [Volume Fraction] of Blood by Automated count 40.7 % 3 6-45 [facility] Erythrocyte mean corpuscular volume [Entitic volume] by Auto mated count 91.0 fL 80-96 [facility] Erythrocyte mean corpuscular hemoglobin [Entitic mass] by Automated count 29.3 pg 27-33 [facility] Erythrocyte mean corpuscular hemoglobin concentration [Mass/volume] by Automated count 32.2 g/dL 32.0-36.0 [facility] E[facility]throcyte distribution width [Ratio] by Automated count 14.8 % 11.5-14.5 H [facility] Platelets [#/volume] in Blood by Automated count 238 10*3/uL 150-400 [facility] Differential cell count method - Blood [facility] Neutrophils/100 leukocytes in Blood by Automated count 61 % [facility] Lymphocytes/100 leukocytes in Blood by Automated count 26 % [facility] Monocytes/100 leukocytes in Blood by Automated count 9 % [facility] Eosinophils/100 leukocytes in Blood by Automated count 3 % [facility] Basophils/100 leukocytes in Blood by Automated count 1 % [facility] Neutrophils [#/volume] in Blood by Automated count 4.71 10*3/uL 1.8-7 .0 [facility] Lymphocytes [#/volume] in Blood by Automated count 2.00 10*3/uL 1.2-4 .0 [facility] Monocytes [#/volume] in Blood by Automated count 0.68 10*3/uL 0-0.8 [facility] Eosinophils [#/volume] in Blood by Automated count 0.22 10*3/uL 0-0.5 [facility] Basophils [#/volume] in Blood by Automated count 0.06 10*3/uL 0-0.2 [facility] Nucleated erythrocytes/100 leukocytes [Ratio] in Blood by Automated count 0 /100{WBCs} 0-0 [facility] ID Date Data Source [id number] 12/10/2020 07:57:[address] [facility] Name Value Range Interpretation Code Description Data Catrachita rce(s) Supporting Document(s) Magnesium [Mass/volume] in Serum or Plasma 1.9 mg/dL 1.6-2.6 [facility] ID Date Data Source [id number] 12/10/2020 07:57:[address] [facility] Name Value Range Interpretation Code Description Data Catrachita rce(s) Supporting Document(s) Phosphate [Mass/volume] in Serum or Plasma 3.9 mg/dL 2.5-4.5 [facility] ID Date Data Source [id number] 12/09/2020 09:03:00 PM EDT [facility] Name Value Range Interpretation Code Description Data Catrachita rce(s) Supporting Document(s) SARS-CoV-2 RNA 2019 nCoV Real-Time RT-PCR: NOT DETECTED [facility] This lab was ordered by [facility] and reported by [facility]. ID Date Data Source [id number] 12/10/2020 12:01:[address] 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 ID Date Data Source [id number] 12/09/2020 10:42:[address] [facility] Name Value Range Interpretation Code Description Data Catrachita rce(s) Supporting Document(s) [facility] RBLNTy5mExLCKhWtj6YtEeObFCKnNN1lrxg5U4O3pELiS0XoeQNnk8wnV4DiD6JpDJTdFWDKUX1RlRHp jb2 [file] [id number] ID Date Data Source [id number] 12/09/2020 10:41:[address] [facility] Name Value Range Interpretation Code Description Data Catrachita rce(s) Supporting Document(s) [facility] [id number]U5vvfk6I1Y5wITlH9NwdURes2qpV2KhX1JfWUKfASSERV3XbSEu jb2 [file] [employer]+Zfg9vOqId/9guih787J+9F8tB/NR/vRfLQfzWeB [file] [id number]+8+4yBf408Ob17693xi/fvf/2iw9/ +Fi7rbl75jt+6999+OKrd2/v3314/8W733/74M1Or4IY+78vsfzmxrTxnA828v/264a9L4/9/k3vEa25 +drq87027ckK//b8tNou1w8/4qElMm989kTXc3/06F9we5y20vgt2pq9+/IPb5/+2tzdYgin5aU/c+d7 wU8FjQOD8243t//fY9k89S/+zs+eotasK351/O2b91 9/+fVX//tv45xaabuixu+CDG1nQK569vc7u30+zTefvn/99t+++NXwm8jr/ojl8929SyvhifLBUm/579 bpEf81cr19+u3bL/71qy9+9TLsVx/wCva0k48uc/3bp9++/kjz5646vyvEDD8lt614li//809//eH7/3 j7H//77fd/+vOfv/vrX7//7s///Pb5dz/+6fs/v/37 P4j/+z++/eXHt/kL8V/s50wxRGof2XL+/y4xsME6pXZzGyiDT/jeff/bp5FUnmM7xS21Rndy4msfv01// T8MwqOpO0K/Zy3JuTBXmp0l18uh0d9Xi0l2fdQniTsajA0O/e13ri2bWk//g/ff/+x7YPughSsp2h/f+ v82nznc0+5aohliUXa2rIm7M//L+D1f9PQv/jXPspy r/8hvaNyKuHNAbDdQ+agO///7H//6Xt79+99/pt8O441W3pnI79r/9qW5C8rG1jmBa9q8J21t/+9OP// 39X/+pn0g6oY894sa4b4w/vuDfefeN/fb9t2//8T9f7/6nv/t734kRYGwc5U7q5BH//iSJ7859J/DXuK jA26W/eDHsj+4eLxhBI+0h1HxOuv/F2J4nkXkE9qyf W23sm5+///mHt+/+1/f/3dsA4ijxd/z8688+/Dw23P/7R4bPwS/913//x5/8en+HX33/w3d//ugLr4/w z777n3/87r/+6G0OX8uTgfErz/rxp/8/beX68//42/8+Rnz/l7/88Mmrmxf/yU92ib/8yx8/GWxvseEm UxPc+Ifv//h//egqT64k3ML8nu22/eSnkQUkf/pf// 2qdf/xyTdff/vtF7/89gL6e7+e+ItP//k1LKICUL//1dplcvvr6Rzj0tuL+v//k3vCpG+zeuhvvvs/v3 +Tt7/13xyLmsi9Ot/70g268Jb06w61/WIC7z7/8En2lC+UkL735/efv3v/ZKWomldW7Oyvo3665IaxWh X8K6m2kgm9//R3eBOzPeDNJ1emAteEkbbcToGlxE MUsdJESgFuj3FH9IiEAsRPVxL4X9VHSxxl3lDJDlVIJgcALrBdUdJVQTTX9NcYUxGS9TXRx9SFFzDQJw PaThQWTogkL2JLBpEOBeYVPrZ1WavdAwsLQjQKThQc5+DM3to5WfApSwQDZvOlv4GL2XeUXcDM9XhKHq kR2aecIjW121riZhMUThDdipy8NyBQclTKBBRT9QTV L3FRF0HMUuQw5+NO3ii7PrBzPuAVOdZpl2IS5WbHUrk8JvYG3HB8HlJYEzEBLUCWE0x2HlVJZephnqdw jrM1SeSIU8oL2lSIG0QGNwAWheJDKaLWldTHZxKAPeLRygZQSrSFAyHNYbLFZjXGe9oBFlFG7RH6RmHS CzEERUCIQreqSnWk0jTKsABHAVEgaiETtHTZASTNKk QJn3GRO9KOWqH5FqxwWlgGUqKSZXSOixZyatRJSriZ2clMbpX3EvTRG8t7IqOG8OP7IfSHTsLEUNHJU1 k2VlVJLrkxxgqzuqJwAqTIDuOUSzRYGqXC5Hmx2aePKmjoZbKNMFCKhaUkarFD9zjOdvmsrzD3WpxFSq KSA+HrWhSY8fxp8+WpAkYXFbZxd5UBHxKWnjUNRsLN OxVOHfB3mnCGFhSyCcJFWsCdDmLM0Sx8DcuTIvVz4gvpCaDfaRvKSkUpatMMOnMPDwUXEzXkBNXJVrSD ImXNCyCSM6HCSwZWSeNFwrLRFqJKI0Gwh4FICeLAJgBW1sVmNtXVQjOwL2ETWcDCSiYUOiipWWRVLpAQ E7ZEKwCMVqFQMbVCFyVAbtUMJjOBQpSDDnYVA3WBS5 CPYjJpPhCHStOZQsTPRsXOZhGWFdnnTIIVIuESYzKQN9NEUbMSXvEIUyEAsgRKFzUHTkISusFAAbLVXw EE9pHdMbCTFaQBKvXFzyQYBxDZRtpoKRWOEyXXBjXUPlDNJdXRGkDDJxYRqqVVVqLUDeWANwTYDdZSFu IV3wJjWiCBYcZGI6WVRgBYNyUUZddkORWEGyPJXmQB d3RWRlCJXeUFNzXThzIDRhNXWqKSK6PNXoYTDmXI0hIqNpWAWnVIM6HaOeRVPcCLPtobVRIXTnGFOmQP R9VvZdQQKzCLMaQHswOSKnYEPbHJwxTDIhLCTxRE4uKdFrOTGsUXBgBVhkFSQlXWYwswVBZRNdTBJcHI MhHiYjFBGrKYYlHFtoYOEyWTS3DLOxSREbZVMkKZ2x WzYcBGToEWS0AVhwWJXlMIHbwtXFEFYlKNKqKOplXQSbHEGgOYWzFVpgVVOdMOJkNXL8VHXjYWGnXI6a MuWaFVOnOJAgWUIuLoM7QnZhVyYJvWByaHpiysz9CKjhP1m4IZDhEYxvVE4gfnDmBYVlCizdZd8coRM6 UTEtWekTZe8Pg0IhupJ0fdRqJgE1XhM0BiTfOU7I ID Date Data Source [id number] 12/09/2020 05:59:43 AM EDT [facility] Name Value Range Interpretation Code Description Data Catrachita rce(s) Supporting Document(s) Leukocytes [#/volume] in Blood by Automated count 7.8 10*3/uL 4-10 [facility] Erythrocytes [#/volume] in Blood by Automated count 4.46 10*6/uL 4.1- 5.3 [facility] Hemoglobin [Mass/volume] in Blood 12.8 g/dL 11.5-15.5 [facility] Hematocrit [Volume Fraction] of Blood by Automated count 40.4 % 3 6-45 [facility] Erythrocyte mean corpuscular volume [Entitic volume] by Auto mated count 90.7 fL 80-96 [facility] Erythrocyte mean corpuscular hemoglobin [Entitic mass] by Automated count 28.7 pg 27-33 [facility] Erythrocyte mean corpuscular hemoglobin concentration [Mass/volume] by Automated count 31.7 g/dL 32.0-36.[address] [facility] distribution width [Ratio] by Automated count 14.7 % 11.5-14.5 H [facility] Platelets [#/volume] in Blood by Automated count 257 10*3/uL 150-400 [facility] Differential cell count method - Blood [facility] Neutrophils/100 leukocytes in Blood by Automated count 58 % [facility] Lymphocytes/100 leukocytes in Blood by Automated count 29 % [facility] Monocytes/100 leukocytes in Blood by Automated count 9 % [facility] Eosinophils/100 leukocytes in Blood by Automated count 3 % [facility] Basophils/100 leukocytes in Blood by Automated count 1 % [facility] Neutrophils [#/volume] in Blood by Automated count 4.57 10*3/uL 1.8-7 .0 [facility] Lymphocytes [#/volume] in Blood by Automated count 2.24 10*3/uL 1.2-4 .0 [facility] Monocytes [#/volume] in Blood by Automated count 0.72 10*3/uL 0-0.8 [facility] Eosinophils [#/volume] in Blood by Automated count 0.24 10*3/uL 0-0.5 [facility] Basophils [#/volume] in Blood by Automated count 0.06 10*3/uL 0-0.2 [facility] Nucleated erythrocytes/100 leukocytes [Ratio] in Blood by Automated count 0 /100{WBCs} 0-0 [facility] ID Date Data Source [id number] 12/09/2020 06:13:56 AM [facility] Name Value Range Interpretation Code Description Data Catrachita rce(s) Supporting Document(s) Magnesium [Mass/volume] in Serum or Plasma 1.9 mg/dL 1.6-2.6 [facility] ID Date Data Source [id number] 12/09/2020 06:13:56 AM [facility] Name Value Range Interpretation Code Description Data Catrachita rce(s) Supporting Document(s) Albumin [Mass/volume] in Serum or Plasma by Bromocresol green (BCG) dye binding method 3.5 g/dL 3.5-5.2 [facility] Bil[facility].total [Mass/volume] in Serum or Plasma <1.2 [facility] Calcium [Mass/volume] in Serum or Plasma 8.6 mg/dL 8.6-10.0 [facility] Chloride [Moles/volume] in Serum or Plasma 103 mmol/L 98-107 [facility] Creatinine [Mass/volume] in Serum or Plasma 0.81 mg/dL 0.50-0.90 [facility] Glucose [Mass/volume] in Serum or Plasma 86 mg/dL 70-140 [facility] Alkaline phosphatase [Enzymatic activity/volume] in Serum or Plasma 109 U/L 35-104 H [facility] Potassium [Moles/volume] in Serum or Plasma 4.0 mmol/L 3.4-5.1 [facility] Protein [Mass/volume] in Serum or Plasma 6.2 g/dL 6.4-8.3 L [facility] Sodium [Moles/volume] in Serum or Plasma 134 mmol/L 136-145 L [facility] Aspartate aminotransferase [Enzymatic activity/volume] in Serum or Plasma 11 U/L <32 [facility] Urea nitrogen [Mass/volume] in Serum or Plasma 17 mg/dL 6-20 [facility] Osmolality of Serum or Plasma by calculation 278 mosm/kg 275-300 [facility] Creatinine/Urea nitrogen [Mass Ratio] in Serum or Plasma 21 [facility] Bicarbonate [Moles/volume] in Serum 20 mmol/L 22-29 L [facility] Alanine aminotransferase [Enzymatic activity/volume] in Seru m or Plasma 9 U/L <33 [facility] Anion gap 3 in Serum or Plasma 11 mmol/L 8-15 [facility] Glomerular filtration rate/1.73 sq M pre dicted among non-blacks [Volume Rate/Area] in Serum or Plasma by Creatinine-based formula (MDRD) >6 0 [facility] Glomerular filtration rate/1.73 sq M pre dicted among blacks [Volume Rate/Area] in Serum or Plasma by Creatinine-based formula (MDRD) >60 [facility] ID Date Data Source [id number] 12/09/2020 06:13:[address] [facility] Name Value Range Interpretation Code Description Data Catrachita rce(s) Supporting Document(s) Phosphate [Mass/volume] in Serum or Plasma 4.0 mg/dL 2.5-4.5 [facility] ID Date Data Source [id number] 12/08/2020 11:46:[address] [facility] XR CHEST FRONTAL ONLY [id number] RESULTI nterpreted by:CATHY McelroyPROCEDURE INFORMATION: Exam: XR [...] rce(s) Supporting Document(s) ID Date Data Source [id number] 12/08/2020 05:45:[address] [facility] Name Value Range Interpretation Code Description Data Catrachita rce(s) Supporting Document(s) Ammonia [Moles/volume] in Plasma 52 umol/L 11-51 H [facility] ID Date Data Source [id number] 12/08/2020 05:20:[address] [facility] Name Value Range Interpretation Code Description Data Catrachita rce(s) Supporting Document(s) Leukocytes [#/volume] in Blood by Automated count 8.4 10*3/uL 4-10 [facility] Erythrocytes [#/volume] in Blood by Automated count 4.29 10*6/uL 4.1- 5.3 [facility] Hemoglobin [Mass/volume] in Blood 12.8 g/dL 11.5-15.5 [facility] Hematocrit [Volume Fraction] of Blood by Automated count 39.1 % 3 6-45 [facility] Erythrocyte mean corpuscular volume [Entitic volume] by Auto mated count 91.1 fL 80-96 [facility] Erythrocyte mean corpuscular hemoglobin [Entitic mass] by Automated count 29.9 pg 27-33 [facility] Erythrocyte mean corpuscular hemoglobin concentration [Mass/volume] by Automated count 32.8 g/dL 32.0-[facility].0 [facility] E[facility]th[facility] distribution width [Ratio] by Automated count 14.6 % 11.5-14.5 H [facility] Platelets [#/volume] in Blood by Automated count 264 10*3/uL 150-400 [facility] Differential cell count method - Blood [facility] Neutrophils/100 leukocytes in Blood by Automated count 63 % [facility] Lymphocytes/100 leukocytes in Blood by Automated count 25 % [facility] Monocytes/100 leukocytes in Blood by Automated count 8 % [facility] Eosinophils/100 leukocytes in Blood by Automated count 3 % [facility] Basophils/100 leukocytes in Blood by Automated count 1 % [facility] Neutrophils [#/volume] in Blood by Automated count 5.26 10*3/uL 1.8-7 .0 [facility] Lymphocytes [#/volume] in Blood by Automated count 2.10 10*3/uL 1.2-4 .0 [facility] Monocytes [#/volume] in Blood by Automated count 0.67 10*3/uL 0-0.8 [facility] Eosinophils [#/volume] in Blood by Automated count 0.27 10*3/uL 0-0.5 [facility] Basophils [#/volume] in Blood by Automated count 0.06 10*3/uL 0-0.2 [facility] Nucleated erythrocytes/100 leukocytes [Ratio] in Blood by Automated count 0 /100{WBCs} 0-0 [facility] ID Date Data Source [id number] 12/08/2020 05:37:58 AM [facility] Name Value Range Interpretation Code Description Data Catrachita rce(s) Supporting Document(s) Bicarbonate [Moles/volume] in Serum 24 mmol/L 22-29 [facility] Chloride [Moles/volume] in Serum or Plasma 105 mmol/L 98-107 [facility] Creatinine [Mass/volume] in Serum or Plasma 0.85 mg/dL 0.50-0.90 [facility] Glucose [Mass/volume] in Serum or Plasma 92 mg/dL 70-140 [facility] Potassium [Moles/volume] in Serum or Plasma 3.9 mmol/L 3.4-5.1 [facility] Sodium [Moles/volume] in Serum or Plasma 139 mmol/L 136-145 [facility] Urea nitrogen [Mass/volume] in Serum or Plasma 14 mg/dL 6-20 [facility] Anion gap 3 in Serum or Plasma 10 mmol/L 8-15 [facility] Osmolality of Serum or Plasma by calculation 287 mosm/kg 275-300 [facility] Creatinine/Urea nitrogen [Mass Ratio] in Serum or Plasma 17 [facility] Calcium [Mass/volume] in Serum or Plasma 8.5 mg/dL 8.6-10.0 L [facility] Glomerular filtration rate/1.73 sq M pre dicted among non-blacks [Volume Rate/Area] in Serum or Plasma by Creatinine-based formula (MDRD) 88 mL/min/1.73m2 >60 [facility] Glomerular filtration rate/1.73 sq M pre dicted among blacks [Volume Rate/Area] in Serum or Plasma by Creatinine-based formula (MDRD) >60 [facility] ID Date Data Source [id number] 12/08/2020 05:37:58 AM [facility] Name Value Range Interpretation Code Description Data Catrachita rce(s) Supporting Document(s) Magnesium [Mass/volume] in Serum or Plasma 1.8 mg/dL 1.6-2.6 [facility] ID Date Data Source [id number] 12/08/2020 05:37:[address] [facility] Name Value Range Interpretation Code Description Data Catrachita e(s) Supporting Document(s) Phosphate [Mass/volume] in Serum or Plasma 3.9 mg/dL 2.5-4.5 [facility] ID Date Data Source [id number] 12/08/2020 06:18:[address] [facility] Name Value Range Interpretation Code Description Data Catrachita rce(s) Supporting Document(s) Hepatitis C virus Ab [Presence] in Serum or Plasma by Immuno assay Non Reactive [facility] No serological evidence of active infect ion. If recent exposure is suspected, test for HCV RNA. ID Date Data Source [id number] 12/13/2020 06:06:[address] [facility] Name Value Range Interpretation Code Description Data Catrachita e(s) Supporting Document(s) Health Careers Instructor review of results [facility] (NOTE)No informative autoantibodies were detected in this evaluation. However, a negative result does not exclude autoimmune encephalopathy, idiopathic or paraneoplastic. Sensitivity and specificity of antibody testing are enhanced by testing both serum and CSF. AMPA-R Ab CBA, S Negative [facility] (NOTE) ADDITIONAL INFO RMATION This test was developed and its performance characteristics determined by [facility] in a manner consistent with CLIA requirements. This test has not been cleared or approved by the U.S. Food and Drug Administration. Amphiphysin Ab [Titer] in Serum <1:240 [facility] (NOTE) ADDITIONAL INFO RMATION This test was developed and its performance characteristics determined by [facility] in a manner consistent with CLIA requirements. This test has not been cleared or approved by the [place].S. Food and Drug Administration. Glial nuclear type 1 Ab [Titer] in Serum <1:240 [facility] (NOTE) ADDITIONAL INFO RMATION This test was developed and its performance characteristics determined by [facility] in a manner consistent with CLIA requirements. This test has not been cleared or approved by the [place].S. Food and Drug Administration. Neuronal nuclear type 1 Ab [Titer] in Serum <1:240 [facility] Annotation comment [Interpretation] [facility] (NOTE) ADDITIONAL INFO RMATION This test was developed and its performance characteristics determined by [facility] in a manner consistent with CLIA requirements. This test has not been cleared or approved by the [place].S. Food and Drug Administration. Neuronal nuclear type 2 Ab [Titer] in Serum by Immunofluorescence <1:240 [facility] (NOTE) ADDITIONAL INFO RMATION This test was developed and its performance characteristics determined by [facility] in a manner consistent with CLIA requirements. This test has not been cleared or approved by the U.S. Food and Drug Administration. Neuronal nuclear type 3 Ab [Titer] in Serum <1:240 [facility] (NOTE) ADDITIONAL INFO RMATION This test was developed and its performance characteristics determined by [facility] in a manner consistent with CLIA requirements. This test has not been cleared or approved by the [place].S. Food and Drug Administration. CASPR2-IgG CBA, S Negative [facility] (NOTE) ADDITIONAL INFO RMATION This test was developed and its performance characteristics determined by [facility] in a manner consistent with CLIA requirements. This test has not been cleared or approved by the [place].S. Food and Drug Administration. CV2 IgG Ab [Titer] in Serum <1:240 [facility] (NOTE) ADDITIONAL INFO RMATION This test was developed and its performance characteristics determined by [facility] in a manner consistent with CLIA requirements. This test has not been cleared or approved by the [place].S. Food and Drug Administration. Dipeptidyl aminopeptidase-like protein 6 IgG Ab [Presence] in Serum or Plasma by Immunofluorescence Negative [facility] (NOTE) ADDITIONAL INFO RMATION This test was developed and its performance characteristics determined by [facility] in a manner consistent with CLIA requirements. This test has not been cleared or approved by the [place].S. Food and Drug Administration. GABABR IgG Ab [Presence] in Serum or Plasma by Immunofluorescence [facility] (NOTE) ADDITIONAL INFO RMATION This test was developed and its performance characteristics determined by [facility] in a manner consistent with CLIA requirements. This test has not been cleared or approved by the U.S. Food and Drug Administration. Glutamate decarboxylase 65 IgG+IgM Ab [Moles/volume] i n Serum by ImmunoassayV 0.00 nmol/L <= 0.02 [facility] (NOTE) ADDITIONAL INFO RMATION This test was developed and its performance characteristics determined by [facility] in a manner consistent with CLIA requirements. This test has not been cleared or approved by the U.S. Food and Drug Administration. GFAP IFA, S Negative [facility] (NOTE) ADDITIONAL INFO RMATION This test was developed and its performance characteristics determined by [facility] in a manner consistent with CLIA requirements. This test has not been cleared or approved by the U.S. Food and Drug Administration. IgLON5 IFA, S [facility] (NOTE) ADDITIONAL INFO RMATION This test was developed and its performance characteristics determined by [facility] in a manner consistent with CLIA requirements. This test has not been cleared or approved by the U.S. Food and Drug Administration. LGI1-IgG CBA, S [facility] (NOTE) ADDITIONAL INFO RMATION This test was developed and its performance characteristics determined by [facility] in a manner consistent with CLIA requirements. This test has not been cleared or approved by the U.S. Food and Drug Administration. mGluR1 Ab IFA, S [facility] (NOTE) ADDITIONAL INFO RMATION This test was developed and its performance characteristics determined by [facility] in a manner consistent with CLIA requirements. This test has not been cleared or approved by the U.S. Food and Drug Administration. NIF IFA, S [facility] (NOTE) ADDITIONAL INFO RMATION This test was developed and its performance characteristics determined by [facility] in a manner consistent with CLIA requirements. This test has not been cleared or approved by the U.S. Food and Drug Administration. NMDA-R Ab CBA, S [facility] (NOTE) ADDITIONAL INFO RMATION This test was developed and its performance characteristics determined by [facility] in a manner consistent with CLIA requirements. This test has not been cleared or approved by the U.S. Food and Drug Administration. Purkinje cells type 1 Ab [Titer] in Serum <1:240 [facility] (NOTE) ADDITIONAL INFO RMATION This test was developed and its performance characteristics determined by [facility] in a manner consistent with CLIA requirements. This test has not been cleared or approved by the U.S. Food and Drug Administration. Purkinje cells type 2 Ab [Titer] in Serum <1:240 [facility] (NOTE) ADDITIONAL INFO RMATION This test was developed and its performance characteristics determined by [facility] in a manner consistent with CLIA requirements. This test has not been cleared or approved by the U.S. Food and Drug Administration. Purkinje cells type Tr Ab [Titer] in Serum by Immunofluorescence <1:240 [facility] (NOTE) ADDITIONAL INFO RMATION This test was developed and its performance characteristics determined by [facility] in a manner consistent with CLIA requirements. This test has not been cleared or approved by the U.S. Food and Drug Administration.Test Performed by:[address] [id number] Director: Damien Hoff M.D. Ph.D.; CLIA# [id number] ID Date Data Source [id number] 12/07/2020 06:17:17 PM [facility] Value Range Interpretation Code Description Data Catrachita rce(s) Supporting Document(s) Glucose [Mass/volume] in Cerebral spinal fluid 67 mg/dL 40-70 [facility] ID Date Data Source [id number] 12/07/2020 06:17:17 PM [facility] Value Range Interpretation Code Description Data Catrachita rce(s) Supporting Document(s) Protein [Mass/volume] in Cerebral spinal fluid 37 mg/dl 15-45 [facility] ID Date Data Source [id number] 12/07/2020 07:16:50 PM [facility] Name Value Range Interpretation Code Description Data Catrachita rce(s) Supporting Document(s) Color of Cerebral spinal fluid [facility] Clarity of Cerebral spinal fluid [facility] Erythrocytes [#/volume] in Cerebral spinal fluid by Manual count 5 /u L <2 H [facility] Nucleated cells [#/volume] in Cerebral spinal fluid by Manual count <5 [facility] Microscopic observation [Identifier] in Cerebral spinal fluid [facility] Cell count and Differential panel - Cerebral spinal fluid [facility] ID Date Data Source [id number] 12/12/2020 04:07:52 PM [facility] Name Value Range Interpretation Code Description Data Catrachita rce(s) Supporting Document(s) Protein fractions.oligoclonal bands.intrathecal [Presence] in Se rum and CSF [facility] (NOTE)Zero (0) oligoclonal bands were ob served [...] using Isoelectric Focusing(IEF) and immunoblotting methodology.Performed At: [address] [id number] Alvarez MD Ph:[phone] ID Date Data Source [id number] 12/13/2020 10:04:07 AM [facility] Name Value Range Interpretation Code Description Data Catrachita rce(s) Supporting Document(s) Health Careers Instructor review of results [facility] (NOTE)No informative autoantibodies were detected in this evaluation. However, a negative result does not exclude autoimmune encephalopathy, idiopathic or paraneoplastic. Sensitivity and specificity of antibody testing are enhanced by testing both serum and CSF. AMPA-R Ab CBA, CSF Negative [facility] (NOTE) ADDITIONAL INFO RMATION This test was developed and its performance characteristics determined by [facility] in a manner consistent with CLIA requirements. This test has not been cleared or approved by the U.S. Food and Drug Administration. Amphiphysin Ab [Titer] in Cerebral spinal fluid by Immunofluorescen ce <1:2 [facility] (NOTE) ADDITIONAL INFO RMATION This test was developed and its performance characteristics determined by [facility] in a manner consistent with CLIA requirements. This test has not been cleared or approved by the U.S. Food and Drug Administration. Glial nuclear type 1 Ab [Titer] in Cerebral spinal fluid < 1:2 [facility] (NOTE) ADDITIONAL INFO RMATION This test was developed and its performance characteristics determined by [facility] in a manner consistent with CLIA requirements. This test has not been cleared or approved by the U.S. Food and Drug Administration. Neuronal nuclear type 1 Ab [Titer] in Ce rebral spinal fluid by Immunofluorescence <1:2 [facility] Annotation comment [Interpretation] [facility] (NOTE) ADDITIONAL INFO RMATION This test was developed and its performance characteristics determined by [facility] in a manner consistent with CLIA requirements. This test has not been cleared or approved by the U.S. Food and Drug Administration. Neuronal nuclear type 2 Ab [Titer] in Ce rebral spinal fluid by Immunofluorescence <1:2 [facility] (NOTE) ADDITIONAL INFO RMATION This test was developed and its performance characteristics determined by [facility] in a manner consistent with CLIA requirements. This test has not been cleared or approved by the U.S. Food and Drug Administration. Neuronal nuclear type 3 Ab [Titer] in Cerebral spinal fluid <1:2 [facility] (NOTE) ADDITIONAL INFO RMATION This test was developed and its performance characteristics determined by [facility] in a manner consistent with CLIA requirements. This test has not been cleared or approved by the U.S. Food and Drug Administration. CASPR2-IgG CBA, CSF Negative [facility] (NOTE) ADDITIONAL INFO RMATION This test was developed and its performance characteristics determined by [facility] in a manner consistent with CLIA requirements. This test has not been cleared or approved by the U.S. Food and Drug Administration. CV2 IgG Ab [Titer] in Cerebral spinal fluid <1:2 [facility] (NOTE) ADDITIONAL INFO RMATION This test was developed and its performance characteristics determined by [facility] in a manner consistent with CLIA requirements. This test has not been cleared or approved by the U.S. Food and Drug Administration. Dipeptidyl aminopeptidase-like protein 6 IgG Ab [Presence] in Cerebral spinal fluid by Immunofluorescence Negative [facility] (NOTE) ADDITIONAL INFO RMATION This test was developed and its performance characteristics determined by [facility] in a manner consistent with CLIA requirements. This test has not been cleared or approved by the U.S. Food and Drug Administration. GABABR IgG Ab [Presence] in Cerebral spinal fluid by Immunof luorescence Negative [facility] (NOTE) ADDITIONAL INFO RMATION This test was developed and its performance characteristics determined by [facility] in a manner consistent with CLIA requirements. This test has not been cleared or approved by the U.S. Food and Drug Administration. Glutamate decarboxylase 65 Ab [Moles/volume] in Cerebr al spinal fluid 0.00 nmol/L <= 0.02 [facility] (NOTE) ADDITIONAL INFO RMATION This test was developed and its performance characteristics determined by [facility] in a manner consistent with CLIA requirements. This test has not been cleared or approved by the U.S. Food and Drug Administration. GFAP IFA, CSF Negative [facility] (NOTE) ADDITIONAL INFO RMATION This test was developed and its performance characteristics determined by [facility] in a manner consistent with CLIA requirements. This test has not been cleared or approved by the U.S. Food and Drug Administration. IgLON5 IFA, CSF Negative [facility] (NOTE) ADDITIONAL INFO RMATION This test was developed and its performance characteristics determined by [facility] in a manner consistent with CLIA requirements. This test has not been cleared or approved by the U.S. Food and Drug Administration. LGI1-IgG CBA, CSF Negative [facility] (NOTE) ADDITIONAL INFO RMATION This test was developed and its performance characteristics determined by [facility] in a manner consistent with CLIA requirements. This test has not been cleared or approved by the U.S. Food and Drug Administration. mGluR1 Ab IFA, CSF Negative [facility] (NOTE) ADDITIONAL INFO RMATION This test was developed and its performance characteristics determined by [facility] in a manner consistent with CLIA requirements. This test has not been cleared or approved by the U.S. Food and Drug Administration. NIF IFA, CSF Negative [facility] (NOTE) ADDITIONAL INFO RMATION This test was developed and its performance characteristics determined by [facility] in a manner consistent with CLIA requirements. This test has not been cleared or approved by the U.S. Food and Drug Administration. NMDA-R Ab CBA, CSF Negative [facility] (NOTE) ADDITIONAL INFO RMATION This test was developed and its performance characteristics determined by [facility] in a manner consistent with CLIA requirements. This test has not been cleared or approved by the U.S. Food and Drug Administration. Purkinje cells type Tr Ab [Titer] in Cer ebral spinal fluid by Immunofluorescence <1:2 [facility] (NOTE) ADDITIONAL INFO RMATION This test was developed and its performance characteristics determined by [facility] in a manner consistent with CLIA requirements. This test has not been cleared or approved by the U.S. Food and Drug Administration. Purkinje cells type 1 Ab [Titer] in Cerebral spinal fluid <1:2 [facility] (NOTE) ADDITIONAL INFO RMATION This test was developed and its performance characteristics determined by [facility] in a manner consistent with CLIA requirements. This test has not been cleared or approved by the U.S. Food and Drug Administration. Purkinje cells type 2 Ab [Titer] in Cerebral spinal fluid <1:2 [facility] (NOTE) ADDITIONAL INFO RMATION This test was developed and its performance characteristics determined by [facility] in a manner consistent with CLIA requirements. This test has not been cleared or approved by the U.S. Food and Drug Administration.Test Performed by:[address] [id number] Director: Damien Hoff M.D. Ph.D.; CLIA# [id number] ID Date Data Source [id number] 12/12/2020 02:15:16 PM EDT [place] [facility] NoneGram Stn XXX : 1+WBC'S Seen.No organisms seenSpecimen concentrated prior to staining.Microorganism XXX Cult : No growth 5 days Name Value Range Interpretation Code Description Data [facility] rce(s) Supporting Document(s) ID Date Data Source [id number] 12/07/2020 07:59:59 PM EDT [facility] Cmnt XXX-Imp : NoneCSF Panel : [...] rce(s) Supporting Document(s) ID Date Data Source [id number] 12/07/2020 02:22:[address] [facility] Name Value Range Interpretation Code Description Data [facility] rce(s) Supporting Document(s) [facility] SYBSJz1mEiSEPrBc90/WFGfpYLEsi2TxAHalTNt7VDjvNFGyA2KmXWI6dW7mYFV5TVvLDvWfWjYaKaU2 lbm [file] AgICAgICAgICAgICAgICAgICAgICAgICAgICAgICAg ICAgICAgICAgICAgICAgICAgICAgICAgICAgICAgICAgICAgICAgICAgICAgICAgICAgICAgICAgICAg ICAgDQogICAgICAgICAgICAgICAgICAgICAgICAgICAgICAgICAgICAgICAgICAgICAgICAgICAgICAg ICAgICAgICAgICAgICAgICAgICAgICAgICAgICAgIC AgICAgICAgICAgICAgDQogICAgICAgICAgICAgICAgICAgICAgICAgICAgICAgICAgICAgICAgICAgIC AgICAgICAgICAgICAgICAgICAgICAgICAgICAgICAgICAgICAgICAgICAgICAgICAgICAgICAgDQogIC AgICAgICAgICAgICAgICAgICAgICAgICAgICAgICAg ICAgICAgICAgICAgICAgICAgICAgICAgICAgICAgICAgICAgICAgICAgICAgICAgICAgICAgICAgICAg ICAgICAgDQogICAgICAgICAgICAgICAgICAgICAgICAgICAgICAgICAgICAgICAgICAgICAgICAgICAg ICAgICAgICAgICAgICAgICAgICAgICAgICAgICAgIC AgICAgICAgICAgICAgICAgDQogICAgICAgICAgICAgICAgICAgICAgICAgICAgICAgICAgICAgICAgIC AgICAgICAgICAgICAgICAgICAgICAgICAgICAgICAgICAgICAgICAgICAgICAgICAgICAgICAgICAgDQ ogICAgICAgICAgICAgICAgICAgICAgICAgICAgICAg ICAgICAgICAgICAgICAgICAgICAgICAgICAgICAgICAgICAgICAgICAgICAgICAgICAgICAgICAgICAg ICAgICAgICAgDQogICAgICAgICAgICAgICAgICAgICAgICAgICAgICAgICAgICAgICAgICAgICAgICAg ICAgICAgICAgICAgICAgICAgICAgICAgICAgICAgIC AgICAgICAgICAgICAgICAgICAgDQogICAgICAgICAgICAgICAgICAgICAgICAgICAgICAgICAgICAgIC AgICAgICAgICAgICAgICAgICAgICAgICAgICAgICAgICAgICAgICAgICAgICAgICAgICAgICAgICAgIC AgDQogICAgICAgICAgICAgICAgICAgICAgICAgICAg ICAgICAgICAgICAgICAgICAgICAgICAgICAgICAgICAgICAgICAgICAgICAgICAgICAgICAgICAgICAg WSVjUJHjUEQdRLWjDQu3G2ngBFAbQKFbFT8dFHd8Nz7+LCoXWbZrUDJ1jdMhoL3WJI0zt5JeWUduKJOh x7JyZJx3XI4SCLClKZgbDI3ZXTibld3EGQYbAHVchQ TPb0hkDnMuOTX4VFBkBdyxIY5UZLCjR8ebtbHfKBHwCSMSLMotJDDCPZ7VQaAoE0FcrJ85SVDZKa8+DQ mmglOzJhoCXdN7TUElz4KnVWk6NG4BDGZqVbihp3ItUSpjADZDSWbcZG2AFUQ4YPF2VQMiTu7IBUJuK6 21bmEtBZ9JFw7ZGdGkBL1wse5ZZTbhFHOhNzpHZku3 OKibMO9VyAQfMThUi87vcEa7sgLcoTOHSG7wZMdsSYTBSYHxte0vJ0AhAUaDB9jzLHVfQq9jHm6iOFDk CFUqTkE6JHFADO1EZQHfWQBmhLJgLRKeEHHPMC6ECBosQIN4OQDfquUwfFNqJLknTU2HUIVekdJvPCFt MCBSDQo+Ol9LRN2vc6QoOOvzJUUqNC8euf1OJXaRZt IbK5A8nDVmN6Z6LHmfUx3NROJcZBFmBLEoFXAUNDqwRN2WPB6cswW8ZR6FfKAvMDWuMPQxqCVwRJz8V0 0lgZWhCPvsBZ6SMZZ+Sharon+Pt7PZFCcXMYbOWIiIiJoAVFILlTdZ0MaQ9BZq4ZaE4NnMV28rNovljHoLD jsUM7KBN5jBSDjBBPWBL4XbRWpeW3sofXdWcYsBJXN ZgGyO11nwJQhXXDePTA2WXLrNe8ORHRmP1MgtrWatGpkhgFzTTZaTXKQNL8MQMrvrpBtpRKmtTmmUZ91 cGdqLK2GOi1EJaDbPP7tpb4IbUUbIx9RTZLmUF4GMIQeATZsCLJtDOB7VFGzUzYyKPzoTAWyDVDnGZA4 SAMjMXSyMT7SQfXbMZXxWLlvWJNfHCLfGTGfyh7DBR MiTJYzZJjwQeTqTLKkNAMeKKquEGEkEXRlIOC8BNLxYNTpWY2FJaDbSWMcRVS5MQRlQSTuMDThun6XDE LkFQUqZtbaNLMhVYGxFMEhVKqzRSFiRKG8KtY5HSRqKLMxWJ2IYrVlCBJnDJC5JwFhPFVaCQXcgb0SVX ZcTEYrIOBdUtGbYFNwFFGwPTshXTPxPEZ9AjY8XPTs TLXoCN5VXnAwNSZkTXT0PThcNQVoHEAffp1JBLIaYRKyUcv4QMApHQIxURMgIBexOBAgOSQ4VXvhHHJa GRTyUM2XVlCiWUCdBIvzYAxhMHNzZKLqys7OHODhFOPvSjD4UqWzSMRmGERoRKvxMXXoKMT5HQM6PCXm XJUaJX5UAlBrWDQtIZsvXasvCITdFWWvty2EEMSyKR RfKBMnRdQiYPGvVMHvESj5clMckRXaTZq7YI6GM7OoyuRqYXtGVs9Ah525SNR9ZDGbSi7ZU4lwUa9hXZ YwZSXNXp1PIGq1TwM5OrSnCAq6WDXwKCIySSP7CMOeIfOjOaPhDTOaJAw+SHd1ADibAaFdRwe1TOWaXA GfAQU2WFVwNRH9OVVbXOT9AS4iBHVVWv6+ADdmyLRwfOfrPCRIQsq3FdQVKxRdAN4RSYi= ID Date Data Source [id number] 12/07/2020 11:20:[address] [facility] Name Value Range Interpretation Code Description Data [facility] rce(s) Supporting Document(s) ED Provider Note [facility] UJXQXu1bEyZRZtCe02/CCHqrUVXcu1NxHPbhVBx9EEhjZZUjW6VqLPS6yX8lLYZ3ILzVFwYwVyNuFzN7 lbm [file] CERTIFIED DETENTION DEPUTY/5tKoSkzJWGwrXBDUXBe7dQJzvAqky2Uf0mLcdqo2XpkccksNHLGlZ4S7gWHRlEwQiTH5vhDNJkVCJ [file] Y0QKYuPgChHay1MhJ0BUGzEzl+SQ7kAHu+Dh8Qn9XfkpM4zxNqZDi7Qvb3UO1FMDUYF8MRIn== ID Date Data Source [id number] 12/07/2020 05:50:[address] [facility] Name Value Range Interpretation Code Description Data [facility] rce(s) Supporting Document(s) Leukocytes [#/volume] in Blood by Automated count 7.9 10*3/uL 4-10 [facility] Erythrocytes [#/volume] in Blood by Automated count 4.46 10*6/uL 4.1- 5.3 [facility] Hemoglobin [Mass/volume] in Blood 12.9 g/dL 11.5-15.5 [facility] Hematocrit [Volume Fraction] of Blood by Automated count 40.6 % 3 6-45 [facility] Erythrocyte mean corpuscular volume [Entitic volume] by Auto mated count 91.1 fL 80-96 [facility] Erythrocyte mean corpuscular hemoglobin [Entitic mass] by Automated count 28.9 pg 27-33 [facility] Erythrocyte mean corpuscular hemoglobin concentration [Mass/volume] by Automated count 31.7 g/dL 32.0-36.[address] [facility] E[facility]th[facility] distribution width [Ratio] by Automated count 14.8 % 11.5-14.5 H [facility] Platelets [#/volume] in Blood by Automated count 284 10*3/uL 150-400 [facility] Differential cell count method - Blood [facility] Neutrophils/100 leukocytes in Blood by Automated count 57 % [facility] Lymphocytes/100 leukocytes in Blood by Automated count 30 % [facility] Monocytes/100 leukocytes in Blood by Automated count 9 % [facility] Eosinophils/100 leukocytes in Blood by Automated count 3 % [facility] Basophils/100 leukocytes in Blood by Automated count 1 % [facility] Neutrophils [#/volume] in Blood by Automated count 4.51 10*3/uL 1.8-7 .0 [facility] Lymphocytes [#/volume] in Blood by Automated count 2.35 10*3/uL 1.2-4 .0 [facility] Monocytes [#/volume] in Blood by Automated count 0.74 10*3/uL 0-0.8 [facility] Eosinophils [#/volume] in Blood by Automated count 0.23 10*3/uL 0-0.5 [facility] Basophils [#/volume] in Blood by Automated count 0.06 10*3/uL 0-0.2 [facility] Nucleated erythrocytes/100 leukocytes [Ratio] in Blood by Automated count 0 /100{WBCs} 0-0 [facility] ID Date Data Source [id number] 12/07/2020 06:02:[address] [facility] Name Value Range Interpretation Code Description Data [facility] rce(s) Supporting Document(s) aPTT in Platelet poor plasma by Coagulation assay 31.2 s 24.0-33. 0 [facility] ID Date Data Source [id number] 12/07/2020 06:02:[address] [facility] Name Value Range Interpretation Code Description Data [facility] rce(s) Supporting Document(s) Prothrombin time (PT) 13.5 s 11.6-14.0 [facility] INR in Platelet poor plasma by Coagulation assay 1.07 [facility] Routine intensity oral anticoagulation I NR is typically 2.0-3.0. Target INR must be clinically individualized. ID Date Data Source [id number] 12/07/2020 06:18:08 AM [facility] Name Value Range Interpretation Code Description Data Catrachita rce(s) Supporting Document(s) Magnesium [Mass/volume] in Serum or Plasma 1.8 mg/dL 1.6-2.6 [facility] ID Date Data Source [id number] 12/07/2020 06:18:08 AM [facility] Value Range Interpretation Code Description Data Catr[place]ita rce(s) Supporting Document(s) Phosphate [Mass/volume] in Serum or Plasma 3.8 mg/dL 2.5-4.5 [facility] ID Date Data Source [id number] 12/07/2020 06:18:08 AM [facility] Value Range Interpretation Code Description Data [place]ita rce(s) Supporting Document(s) Bicarbonate [Moles/volume] in Serum 21 mmol/L 22-29 L [facility] Chloride [Moles/volume] in Serum or Plasma 108 mmol/L 98-107 H [facility] Creatinine [Mass/volume] in Serum or Plasma 0.90 mg/dL 0.50-0.90 [facility] Glucose [Mass/volume] in Serum or Plasma 96 mg/dL 70-140 [facility] Potassium [Moles/volume] in Serum or Plasma 4.0 mmol/L 3.4-5.1 [facility] Sodium [Moles/volume] in Serum or Plasma 140 mmol/L 136-145 [facility] Urea nitrogen [Mass/volume] in Serum or Plasma 15 mg/dL 6-20 [facility] Anion gap 3 in Serum or Plasma 11 mmol/L 8-15 [facility] Osmolality of Serum or Plasma by calculation 291 mosm/kg 275-300 [facility] Creatinine/Urea nitrogen [Mass Ratio] in Serum or Plasma 16 [facility] Calcium [Mass/volume] in Serum or Plasma 8.7 mg/dL 8.6-10.0 [facility] Glomerular filtration rate/1.73 sq M pre dicted among non-blacks [Volume Rate/Area] in Serum or Plasma by Creatinine-based formula (MDRD) 82 mL/min/1.73m2 >60 [facility] Glomerular filtration rate/1.73 sq M pre dicted among blacks [Volume Rate/Area] in Serum or Plasma by Creatinine-based formula (MDRD) >60 [facility] ID Date Data Source [id number] 12/06/2020 12:09:[address] [facility] Name Value Range Interpretation Code Description Data Cat[place]ita rce(s) Supporting Document(s) Consultation [facility] FHWNWj8eRrXVXbHq58/OWIhvHCAhw6FcHKtsULx7GIhzIPFjP0RoCZK7oN2bEDQ4FCxSFhAuFsYwFcU3 lbm [file] ToHKIfWbZ6WcOhBKGeGVzjOvxlEzs2AlG+ZH7wHPs+Nb6Ry8CkkdW3uwIcTFl9QbRnXDvyKJSYUz7C ID Date Data Source [id number] 12/06/2020 08:59:[address] [facility] MR BRAIN WITH AND WITHOUT CONTRAST [id number] FINAL RESULTInterpreted by:MELY Bruno HEAD WITH AND [...] Name Value Range Interpretation Code Description Data [facility](s) Supporting Document(s) ID Date Data Source [id number] 12/06/2020 06:19:13 AM [facility] Name Value Range Interpretation Code Description Data [facility](s) Supporting Document(s) Leukocytes [#/volume] in Blood by Automated count 7.2 10*3/uL 4-10 [facility] Erythrocytes [#/volume] in Blood by Automated count 4.36 10*6/uL 4.1- 5.3 [facility] Hemoglobin [Mass/volume] in Blood 12.7 g/dL 11.5-15.5 [facility] Hematocrit [Volume Fraction] of Blood by Automated count 39.4 % 3 6-45 [facility] Erythrocyte mean corpuscular volume [Entitic volume] by Auto mated count 90.5 fL 80-96 [facility] Erythrocyte mean corpuscular hemoglobin [Entitic mass] by Automated count 29.2 pg 27-33 [facility] Erythrocyte mean corpuscular hemoglobin concentration [Mass/volume] by Automated count 32.3 g/dL 32.0-36.[facility] E[facility]th[facility] distribution width [Ratio] by Automated count 14.7 % 11.5-14.5 H [facility] Platelets [#/volume] in Blood by Automated count 271 10*3/uL 150-400 [facility] Differential cell count method - Blood [facility] Neutrophils/100 leukocytes in Blood by Automated count 59 % [facility] Lymphocytes/100 leukocytes in Blood by Automated count 28 % [facility] Monocytes/100 leukocytes in Blood by Automated count 9 % [facility] Eosinophils/100 leukocytes in Blood by Automated count 3 % [facility] Basophils/100 leukocytes in Blood by Automated count 1 % [facility] Neutrophils [#/volume] in Blood by Automated count 4.32 10*3/uL 1.8-7 .0 [facility] Lymphocytes [#/volume] in Blood by Automated count 2.01 10*3/uL 1.2-4 .0 [facility] Monocytes [#/volume] in Blood by Automated count 0.64 10*3/uL 0-0.8 [facility] Eosinophils [#/volume] in Blood by Automated count 0.21 10*3/uL 0-0.5 [facility] Basophils [#/volume] in Blood by Automated count 0.07 10*3/uL 0-0.2 [facility] Nucleated erythrocytes/100 leukocytes [Ratio] in Blood by Automated count 0 /100{WBCs} 0-0 [facility] ID Date Data Source [id number] 12/06/2020 06:43:38 AM [facility] Name Value Range Interpretation Code Description Data [facility] rce(s) Supporting Document(s) Bicarbonate [Moles/volume] in Serum 23 mmol/L 22-29 [facility] Chloride [Moles/volume] in Serum or Plasma 106 mmol/L 98-107 [facility] Creatinine [Mass/volume] in Serum or Plasma 0.92 mg/dL 0.50-0.90 H [facility] Glucose [Mass/volume] in Serum or Plasma 102 mg/dL 70-140 [facility] Potassium [Moles/volume] in Serum or Plasma 3.9 mmol/L 3.4-5.1 [facility] Sodium [Moles/volume] in Serum or Plasma 138 mmol/L 136-145 [facility] Urea nitrogen [Mass/volume] in Serum or Plasma 16 mg/dL 6-20 [facility] Anion gap 3 in Serum or Plasma 10 mmol/L 8-15 [facility] Osmolality of Serum or Plasma by calculation 288 mosm/kg 275-300 [facility] Creatinine/Urea nitrogen [Mass Ratio] in Serum or Plasma 18 [facility] Calcium [Mass/volume] in Serum or Plasma 8.6 mg/dL 8.6-10.0 [facility] Glomerular filtration rate/1.73 sq M pre dicted among non-blacks [Volume Rate/Area] in Serum or Plasma by Creatinine-based formula (MDRD) 80 mL/min/1.73m2 >60 [facility] Glomerular filtration rate/1.73 sq M pre dicted among blacks [Volume Rate/Area] in Serum or Plasma by Creatinine-based formula (MDRD) >60 [facility] ID Date Data Source [id number] 12/06/2020 06:43:38 AM [facility] Name Value Range Interpretation Code Description Data [facility]ita rce(s) Supporting Document(s) Phosphate [Mass/volume] in Serum or Plasma 3.7 mg/dL 2.5-4.5 [facility] ID Date Data Source [id number] 12/06/2020 06:43:38 AM EDT [facility] Value Range Interpretation Code Description Data Catrachita rce(s) Supporting Document(s) Magnesium [Mass/volume] in Serum or Plasma 1.8 mg/dL 1.6-2.6 [facility] ID Date Data Source [id number] 12/06/2020 06:43:38 AM EDT [facility] Value Range Interpretation Code Description Data [facility]ita rce(s) Supporting Document(s) Thyrotropin [Units/volume] in Serum or Plasma 3.360 u[IU]/mL 0.270-4. 200 [facility] ID Date Data Source [id number] 12/05/2020 07:29:47 PM EDT [facility] Value Range Interpretation Code Description Data [facility]r[place]ita rce(s) Supporting Document(s) [facility] CPPDKb7pUyOKQhGg82/MYBrjNDAmt5SaAOeiXWc3SGlnXQKvX8WbRFS7pU0gCTK1OCwNWgLeMzYxSiU6 lbm [file] gbkzP/6i8niSa/nqWv4vG+Petar/Zp8zEtu/u3eDsUID2k79+PfUW5u+Hc/XdEPfmDuzI9/R7m54d/9+kY/ +IG5Mz/+RsLjmq8va5r3yWv+l/uzZs/CybkWGOeZI3 5x6if0eVM9j8ytgMnC4q4mcyJ6Kxa6As/R29Ymbk+BL6q4dnKN1zlWjjzld41kqgRl0KILhx+Wmxv+rX w+/uA8xrsqj39Wmfipjai62nj2j+VL6t7ovrI7Uzw52a/K5+Nfmh+CN2a8vnQE5vuJpjsle46vawCy5O EXki+Wmxv+mCwY3AOMSzdrQ+b+K+S/csS8An/8 [file] GdnGQbQBoqLBcu0QnZ0DTGaRFidGOQGTW14Vzcjt+CBbTVW9/[employer]+NUp7ZCCIosHN2i8FgG3o2bOXsFN [file] ICAgICAgICAgICAgICAgICAgICAgICAgICAgICAgIC QhXFQyZHMxPEXzULVzLJQfNZKiAWUgNVEpYNTwLQFwUWWiMFWcJZGbQUWdNXRuGIKhJAYwVUPqXG9WCV AgICAgICAgICAgICAgICAgICAgICAgICAgICAgICAgICAgICAgICAgICAgICAgICAgICAgICAgICAgIC AgICAgICAgICAgICAgICAgICAgICAgICAgICAgICAg RGTmEMCzCM3VZXZaHGKrREDgRLHuMBIcFZNuBERgOJMaNMItZNKwLXUtQCMxBKLwIDVeCMSqGYUuASUx OTKpSYKvWAHtZVJfBFDgHVLiLUYrMWGfKMEnLRBqWQCyCGLdITUlWUAjKBWrCPQcOW6AGRJoKGNuARDv ICAgICAgICAgICAgICAgICAgICAgICAgICAgICAgIC AgICAgICAgICAgICAgICAgICAgICAgICAgICAgICAgICAgICAgICAgICAgICAgICAgICAgICAgICAgIA 0KICAgICAgICAgICAgICAgICAgICAgICAgICAgICAgICAgICAgICAgICAgICAgICAgICAgICAgICAgIC AgICAgICAgICAgICAgICAgICAgICAgICAgICAgICAg DZPoLGCjFCUmUB0AJIHbEOAdAXKvDEDuFZKgBWJgKJXmIRFwRWNmEHCzXHLcJQHpFHNvDTOaMNZkVLUc AHZoWSGkITHkTJAkDJSyQUMyKKPwUQGmZKYnYNFaQEZwZLBsOMKoQHUiJVJjTJOtAMFdCE9SMZRrMOOv ICAgICAgICAgICAgICAgICAgICAgICAgICAgICAgIC AgICAgICAgICAgICAgICAgICAgICAgICAgICAgICAgICAgICAgICAgICAgICAgICAgICAgICAgICAgIC SyWF1HLSEdNJGoXCWnGBRgYBMgJSWqCMKdENBkVUIrEXWrMOVkNKLoCJXsAKLuQQEkBXKaYRJfPORvGU AgICAgICAgICAgICAgICAgICAgICAgICAgICAgICAg ZPTeTIIoLSTfJCNqGJ4XQSKfLAXdDGVtFKGvNZLyGYLnOIPgWTMtGROsVAFmGSBsYDUaLADiKYQqEFUb CXPjQGVtXUNwDVVdALReONPlNWEbFSNcQOYuMEAiDHTaHOWoFXTgJYYmTHAuFSOuUKKwOXBpSD8GTL61 nJMnx6R1KTXsGV7puox/Ut0WYVwvrzNemTVuXV3KIb BaHZ1qdw7WWjBjXO6hkh7GRAdAQjTeH5N5vDHtGFKfWMWIYtQbH44hAPkxMf44AKvnFQOmEaXbTSh5Vw 8CKeHuH9dnDFPjPjK9DAOlKhJ2EDFnOrJ1TBJuJwKlVHTmQJTkVNGaSSQXPCL6YXIkFrXlKIcgJX1Cl7 VodKD5UIv+Pt4UDJ6fy5ZmXSymXSSvST7erv6EAXkO WpAaX5QovfL2TGA6URNvLo2TLICfRLLimWEySGKvQSFGIoVgP6OuvG24DRGUDt1+DQplbmRvYmoNCjM5 YVNdg7KdPHe4VZ8FHJAzQSj0fBGpO98fb9ZxcOZaBwrgI8BtkRANDvEosYviOCTISpHLSKJ0GYisIHVe ZgBgCKFzYukjSgXVRWbJKaHeN9Cca6WaLtO5VKObNg BmNUhyBZXmPiY3TJ61jFfsVC9KYEWjGJOkPN19MCB0POBsZh1TXj6PLqNbIZ4cbf1QZQEpNLWyDtcREj e5CNklRI8YfENiF3BzxOYlf4rZTfPfP0PRKPL7SRJfHa1GVMCaCxUqSSMvMBicIL9pRZOdCFZZnUnfxo O2QO0LNH0nulQaSA3BRmRrKc2xOl5ETcCpK5UhC9Mc UCYaOPEZEJhuEW4QWAxnKO6eZE8Wy5ECfDTxbV2lek9WIKVcXTVzZawrhr8DAyhmL3K6vAfsXJKfZehe JNWADOhhQJ0FTGElWNQ3QPQiXvHxKHVPJoHhX29vYV2KZ7Nbu76tLfQ9DMFmIpQgVIhuWL47kRoarpPb nUHgiPyoTX4ZSv3+DQplbmRvYmoNCnhyZWYNCjAgND UUYxYzMICgPDKfZUTtGxC5UfGpQj0MSOJoQBHbOTUpHgRoIPShECXpYSeyZECsLNZ9Lyc9KGHgIREgAF 2OOwDfNRYiIHMeNAPmIHBlVKIaow1VCJQzVSIoTOW0MkNkTXZmPNWfCCqwUURnVRH8VjUaODPbFOQtFE 1KSqMiNOShUKY6XgmkJHDqOPIouo4TEHOjNCWvQtHm AxQvABSeZAYuYSmnMYWqJGT0FzQqMIPgKQWlUY2MBvAnQFZaRXXkQHMkJXHcXFGgwe8YGFLpSFJuHPBu LOHhUWSiWUBaZJtiQPEpGFQ0OPO2XJEpEQLdTJ5DGbEnFYGsGUB0QnFsIPSqNXPzjv5LISPyXOSkLmgd EPUhZLTzZLFyVEkkFEWwPHP7IFGjPIMzNETiRM7AUs FzMIGoQYfzEFlnSHWjBDXypy0INRIlVXKkXEWqHzQqCZTfUBUkOZhpHDSaTMRdOpadHWQqECEnEA5IOz DwNPIrOsO2QQKdWCIsUVEmpa6STRBeGCCiMYB1GdAuDVEwOEJsEOpmJSTaGHWpMnKsDRKsXRAoRW5HCx FvFHCrXqV5TcIuQFPsOBQwhp9JUYTvSNVqZnVuMyAm MTXqNTGwVRetXNVwGVSbXZpeJXPdVHWgWF8KOcBtMNKoFjHnTlzfROZeMSAjpb7FRYVhUAWkYtW9FeUt AMOfPPXwWLlmGNHeHFQ2AiErJJCcDXVnRO5DUnDcDZMxVtJ7KeZrTGQlTEFxrn0QFPAnOAGqEVhcPWJz XWOjZJXuZVgwRLDfZRL3Zox8JWQmIAZkRB5YZsWhQD IzKbN0WwjzEXYlPBVpbo8PJABeTUDdBhY2HFWmQKYmAQHyPLxiJRQkBSZ5JTN6TLKnHOWpLT5AQwVsKK TfMfh6LxUfRXXzELQsbx1MHQVmOSDnGqp4LMDqTCCuIKQuCFlzYCFwPJQ5YmJtXJDmDRKjDM2YWsFeWD UvPsbnBcSyARDyBLZolg8PNDBvJGHnLBitUDLhAWSs UKHzLBzgMZAiRHHsVbi2EJFyBAZgHY7GGcQfMYYfKHLlHBnuFJOmLNUxdn6ZTPKsFUT5VJAlESLrZURq WPAuFUy1hqMtxAMvHHw7FX0OM6ZsflSpWKCULf1Tf272DTGjWDMbOt4KG8hiBs1aLARxNCGZIu1OKBh0 OrGzXNRpBYC1OTWgIHxnScZnMNthZWpxKNX5AROePP Y+QBk4QbX6FKJ3FhojBBP3OZAvHjL2IJOxWKI0HjnjMTSwDk4lFLYXIb6+DQpzdGFydHhyZWYNCjQwNz U4GZzgGMKYPo5L ID Date Data Source [id number] 12/05/2020 08:33:[address] [facility] Name Value Range Interpretation Code Description Data Catrachita rce(s) Supporting Document(s) [facility] QRQAMz8sDmHYKtMnq7ZxGsHaRNEiGI4wgin3J3R6mHSoB1NtuTBvn2tsG6MpS4ApMKLxYVULID8NxJKz jb2 [file] CAQSut+Kgr/YuSZp7hN6M5Kp9vhcnY797bEVTPBr1O/9Lwqd5i77h01z/eOif//+7//pn3+J/fP//long-term [file] M08KgyWFMKfD1PxBuTcovX+TqZSfYG4XUYILKENDKY3ECKCAXENUOV6BWTTEAGLwZ3XnLWBLCJStP0F5 yjJxGNBAG124NS9RL801BlwLRRSjWKEGJXZsjrTKBWVTdl6JxBb9sxewsKd33O4W8ODW/cREPzHxvnM6 ePlvucXISBZXSuwUtTXxAAKmcQOZTMIShEoQ9DDX/c EUVuEWS0z0YnF4xZH/MdFPTPQTE/0MSC0f9G5Y3XEc/wM2JSSoEfN7kLbhBiCExVOnwb3U5KpA87SMrm ApF5oRuS1EmwqB09oBrwQhcIiZzmoSz1v2Lsi6Dm8F3dugyX5KNT0Je0TD0HWMi1V8hWZolUWbpQ7Sgn 3M6VWayDqVqURSQgWbCFCZAAW3XQiGj5ANFIKNvruI 28wzdqXMpXu92cPPd8Zv/cQ3+RIYoEkSwhf1sP8VbvJTFEGdcaG8zKY2apW+6fzr0t4B80pjA+8GiSSR ESUJya9jdH0X4XkGcp3uqTGVTm4LIQOoWROVBZHJrxYY8hk0NBj4O+6ftnxO4Z77eK7D57L3WAHN517k rJlqDuf/1kzrPXH/c/TdD3agZ070DZ+tvXPA/i+QCb 49gNV+9bbIEr1sn5/hn/Jdpnrh5AfK6++Bn1Db9l+j+g1G0ghlpbttlBAGCec7XX/1nx7H45kOxwZ0u9 PvHKy/O/8YxUfeMwn6FX84l/8zw5FzJRc/mx/ujPxwN78cRIX4PvicZr+1g/msOm8hO56j6Ci2OvMuqg Fywh5smf6Jov7SxmGjQKHcwm576t7vnwRWXb1Mlnvl +g6x3B4OSOJ0zqO88bLV6YoD8gnB4HrEYNlX2WkhFI2esoYChPQc7p+6C9sQnfMnZ+U2skMrVZQ+YqGf NJugYikZeAB3xrLlULx3RwqylPszzDIqiWDjfXhzyDO0ZfIfVUqbmWrRgSXz9JfNoNpOWdCfzNSDvURM zI1lcK+tOk+cXn/yxDtsnDzxDRJJIikkBeTkiV+sock examiner [file] ZLGLAw9yWsDaWadkltnSNxxgKJFqMDmPH/oquAUu4Pjchr6NjMv2qp/Christina/io35WkFm+L55O3YiA7E0X j3vuq6670nXOAxvYotr4df1ef1pRy18l0muNQds73fqww7C+/Dx0yuuqfhWKOdrtzLaX1T/YJ+PXbYwU Fxel9hgKdrmIRe0s0ntC1cXioqP2saRjosi4rM4tIv GCR7CJFjleI73U39GGh38K2Vdv51U9Yn5+74oOzPOzwo+/mODsr+r+GhTfDk4P/iu/oqP1/Mo0mdQF0O w7/yE0yOY+gV+singing waiter or waitress/DkjbGM6xy7of4F+dY+gdeoe+xqsdC/QcD+jHM+5p+FfnGPoF/Ub1PwuMnTd2y5ic MeF9br8ocjWoH+gNeofeoe/F04ue9QA/dfzMUzvop4 6hX9DX/LsDfuoYeoFeoFfoFfoGfYPeoDfoHXqHvkPfoR/Sn94V1S5og3L8A0dejX+wgNx4FceN/0oN7T V688ZeW4wT8PC086HhA1sC8MQ708ZhH3jw/R567wzJmw2DJ89O/IIrdBfsWJkOqfYloTkmFHdM1eUy1N M/w79S+FcK/4ngLwt2O2A/pR3Pt+R1jiiygklq5Hv6 nm8v/1l7+c/hAToG3bU41Ec1ZqdZ/YB+Qj+xI1Rj3mb/dY6h3+2NdbHwr/JYoVfoG/QNeoPeoHfoHfoO /A4xlKAZ+P4N/f3ywhhzy3Oj4Guhc5+V59z+XC6fPfpmxm3IiA1NKq0gi+BdtAoEB4uVfB05HB4dbp9g 5Xy6/aucZyfm3+1f5by8/aucr7d/wT9i8SR3/Xxjrt /+VR5v/+o5rt9v/tfksa9npEpzV+M8bl6a31n5P8cM9N3nS3f7ywvo1lbMd2a+Xph/F+vl6RfoUdy/F8 arhf68/at8Xtu/kdy68ikqTWlhRJmJdKUr9Ju0Uw3B08Cu1Zo9Uq3swK+O++nQd+hP8EZ8Xg5EasHN2j b00Jn2mOa8O7xH2+7mlaisi47gTQ9k7bxS/pqPRxzf +m0M1szmw05/2e3N/+72ahzX+7uIm6u0c1Q/bm1QBGGSifZFcXkeKf/ffE6e/+FichxEog8OvRBUgJBa 7UX61VdGdpKyIqBk4T9tUL1bJ68aJ0NvHhKL7k8hwZt/32dLTHrGxtdU2xCB36Otjsv/FXsLdsTMa/CI 2298Mu0h5q+qARaXx1AYj3/tjeey/lm7iimgAuzJ76 K/ymvF9+A+T/hX5/o0z3w1X/w4cvBiyM7Oy/D9ulrM9qw+vu8cy3DlnE5aihdDLTe/xuEW/jQ6wq8Ws/ 7c0J8b+sAEc09lx3m+xIrXMkGC6Ho6Ws+jz1Mc5QK42h/D+5r6lo0pq+O5WiTM8A6Jlb0gBxBR3I4Whv 3phqVF4M6Ntu1ulkEF9t5ow+LKivGVqeB1Oh/X8Xwd zzf8q+gbXuNz8/Kfm5f/6Aw86kt/qsG/avCvGvyrBv+ccn0yXt30za/OueKj0Hy1Kd3GmxJ/oK/vwdaL p33vusm0qrk+qoG/muRwneu99ps8wyl+xGIj46rpB82/LfyrFnqrcWAU/1zZf5rkxwt8hn/ShdyQSE7M spSnlARPJqVLsrFl2slvtxnhAExOSnqdwpOFUJ+1eY kW/NUI/mW1Brb6j9XTFo4kK2s0zwIfDj1Ww6REQx6lz1MfBc4bHONvpv/QD+j3+AhdyjOYH677ilz9lv c08FcN/FVL/ip+WtXiKP8Rq9A5oiZaaU0q5rOKstr6WN5W26/C6pSrxcpCC6Vjr15Hzjn/Fc8o+Ks8Xt VoR03VXP1X/mqGXp7+sNSIlf6XqUmMNb/8jDYHX6Eo nn5rwV+dY+j96ecW/NXu/xb8lYW+P++IWWcXMm7sl2Z8Ip6OlM6G+DxDy4Bjktk5oBX/Agu033FbCyHA 5/jSIwn5wdrCirkeB55r2Z+dY+fY9INS0o65nOA/IjGXAp7SkA8W+CtL/nvFvFqzSbpdE1Uze+LYoDfo JReQWs3FvAcCBz3LP+yi2So0Hd+1Vuu/8d8aLHlLWu LO9Kr5XRdM3lKL2395xu8xhTzp9qqR20MH5U8X1zw1i8O8avHd0unhp2A6fkVs5ndpt3F5uvWm1fays0 B0jiTh4ljtj4C1zcGl5pylh5N7fC0naZt8ebM8nS3aD+rJlp3euae/jvfXHXqHvkPfoR/QD+yu3FQ7LK 29B1ioqNja45GcbsV4dBuidR2f3Un/sT5dSS33jJ7a d+o78F88Xn4MLfOKg7nNPD33sJwG13KWudoyH6CjioPQkNeevLTuIMkvRtn77O0T6y88u7O8G+0daO9A jhnjT4HbkmPQuDupsG6FpymP10wklYT3bq03Px4m73A2G6rspn42jBAv+KuYi4O/ann8+J8G/spmrYfa iKHIu5CcosgVBt20gwhK5WB9kA44Q+IWoL06mtS1/N 5wXa/4Ta9a2fG6q1t/VXydrVr/wvAaos3IF7RfIpaHZo/yW7Z/FX6LY/nCsgoSq2LzXp/2s0Quk6p/+1 XP16/6PvKrvo/8MugN+qyb6WiRO/ox4RwnA/QD+dl3zS0SK0+PDkQ26NREZ5WJ4Bz7Sl+qi8Wr9CF5I/ Zfee6/iuP9vb+5Mo/9VxrH+3u/4pIn9681XipLCkxS azz6/b2f/961utdZTq4X2pL3RVW38Z8HcKUeDprhOjm1qUSAco8RU7HuAg/9V/xt3L50ov9ym4J/Vfx+ 77/PCNerl7KUr1/+yvI8Y+t7HN+/z/vcv89VhQCg7447Wt+C17v9FRvs98+ae8/UunyHel8IideQov2u SVLccl62K0MtSl5gy7GyFcswH13iyiDLvzUrsRk1iy zlMEc70z4pPq//UnL5njkgVoG/wta3E514Szno1zjv/0hfty0Knye8sbi0zksrn740Wqd7dSC25FT/yr H/yrH/yrH/yrH/yrH/yrH/yrH/yrH/yrH/yrH/gb2Vy5Bz2QY9Jz7pd8VG9UP2dU5pW5gi7KA235DdS0 ux/8qx/8qx/5zn18ArsKG3fLN88FU+6FgfdOy/cuy/ cuy/cuy/9h7xg8R/lWP/lWP/lcO/cvhXDv/Ksf/Ke/bD7cDce/sQ5ay2M/vfn54ecLc4Hqx/5dh/5dh/ 5clfxe/r+9ex/4gHa80Zmjt6hph3guw41N4te6M8m4V/4aP2q/io+isBs8s7W/yrPV97+FcS+wwy09g2 u4d/FWPaLH/DZ+0E6bIqNgvS/lyyYt6we24Dy2BIYy 1Bv/skVctMfX7Bkr/xbRaf4+LrOUqQg25w6GyL/VcO/srDvzrHfjgoB3/l4V/FXBb+1TmGvkHfoDfoDX qHvvZfee6/ymPoB/QD+xm0pHbO5u/2m93H/Sq+rgd/TvWQV0nBJ/S60KYrGS/1q+ajfhU/2a/oZ9vqkk 59+7zg0Er4y0I/9O1fRb/q27+K/shRa5jBC7/+2a/y n/tV/kwTp0D7wM//avf/Hv7Vfi+61PpRD/8qj/V5j7rU+m+X4p+99Ibif8f/h9J917Cjn+y60P14Cv5W fkI/oV/QF1/Rcitqyoz2Kf8Wk4Ty1D73Vs3ts1ghrz1O0zhjh5ulat6L0fjcP/qIEyY04RhoyIAavqid xvukMoHW8LL9bh5N303P2td4QtA4pn6C351x1ncS1g o6XpH0ha8Nc6rb+ET7G1DcNYicw/M1PF/J3vZ0B1WmIkCT3S5Olj2gMjHSCWZc8J3AB1TTxrEg1H6xWW nBT0PC2X7Fgg4jtyGE9W7Cqj6ytoTG3Z9Hmv0kvfRE2R9Zhs4gegVM8K1Pfk64WssE1+fTJx39tb658Y eO/xzRp1oMqoIl7Rc8Wj0I15Rz4R/oB/QT+xm1cl3b hX/V4V91+Fcd+3w87gi2voLUxPhzjGKdGMfgLVjF3suR6rV0OnC4kQ7l+Ng+Kv6oJ3+He7Nvzgq9nKIx 2Yh1Aw27vx47OGs/4vZaebMNeDv4Zz5ZrqurNfnE02XOs6EbkIp4k6/s2H/EyF361Vy78A2+vmo/f1+1 n7+Vi2OEyG/QN+gNeoPeoYe/seBvLPgbC/7Ggr8R/J XkcbU3+KvwK4K/0iMAaL3uj8MSv3HT7msL24f5OiENecPk8Oflor6Ef+Xx++pI23b9iCIIBwsqca0nci X9cdX6/gB/NcBfDfBXA/iFEK58iS9D5JqZ/EZWmcAQTt9xCgH43RI/XmQxNhOJSlm0l74g72AH7/6Q2r 8xgr+58whxE3zjBrBdcF74AE/F1ddP6lK7qkRz32q+ Vf5m+1m2Tb43HfJzthW3d+gVJsnz8MbNNVk/Wvkb2/vBdB/19crJJL53SP4p40e/0Nu5BQ894QqMqUh9 s2dFvN0FE8v9bun61wwukQ+CdMP4rmwn9h/6fo/G5q9G/LdVvOS4/atzz7d/9TrvbuPtX+U+i5D5T8g8 /pnRan1/BH+9fkBF3r/ifRzhX+Q36yD5p3BZ/o0R/p YNl5o2r/AiYsa3rZUcrhc3i2U09VK76PE/NcBfDfBXA/vbB/a3D+azF9daAfJlNkOPE/yHDN72kA0V0G cD/MBGlmBTnkouv96Kj8exR/AI/yqPBfra/jv20l8EO+cq3N74l48xx+gd+j35dt7dZA94LQRF2t9Z6I 9p6O94aW9X1XiE/WGBjzVMPrm3Bh+km5Ob3Ov8T8/x GeuDA+uDA+uDA+uDA+uDo5e/ZFm6S0GgL8/mRyvNKilLYwbLJssGGhfUIloEK9ez9i0fjy26XTyX7F3I +Whf2xwrz6pc/5cJQW23Q6QJfWAS/sqv9hCbRu6zxO1dxs+P8K/5kM2Ee6CV1/gAELCa5msLyuPaBkFL Ub9DMt7foO+FST70crT+aoC/GsFfnWPoB/QD+s3n9D tJ1oAkvO/+8jsSBjrvcx2TQfV7S/upOBzXk6h2eNlF2ehepsbLzfGSy3jxl53f0+2NuS/3h5ZKy6PAHb +Tdhvrbha0l4H1CGwt0Bxpn7HphfHqsrGvfa7tlp5iJqXwqD95rrEPr4TTQ7+l+9guHD/0iNGb3zERmE jo6/jQ0Y7cBL8fth/gzqz9frd+aoK/ogQlMluhEf3s Jn/hxwa9LfU4Boj7+ZNTyp+f4zR89L02f01a61O09Pu430pfU/QIcUv2zq29lKt7EH7ME7GD4Iv0Lr/f i5IykKhi45EWb45rb+t01S17Vp+qLpHj7Jbjo54lU/W1An5Q4/NsF/POtt8gbV2xm1yjTusP8s9qx07y N+bqt7B2a3S1zjigQ3ylgM8AR7Kr5CP4wrIe8lqhzg t9Rz4V42Aw0Hy3Sp2Mw/He9xzkl2G1pfYq8yqul3P5bsXg/9XE/quJ/VcT+04f3m1M3U+k7P32Ow09yS pDXim5Xz40dJlESsd9Pg62qGgCLfj0Jx9nzM/2X81e+3Mm/KsJ/3vUk8wqalm0eif/asK/jwKtUyn2B+ wfv3ieWfS/ffYB/YR+Qr+gr/MWZruxvEIGPsRr47K3 6nthDoW+Qd+gr/QcQBr6uj2D6tWh1LaaI/QD+ns9jP2MC+rae2D546Z67Dt6mPZbhb/BGjMehdv2BlwG zSUh2Ze0Hx1HubK21hK9W91cZJ+giO3w4h1k5z5pFyJYCqgl3oBfmifv4TT2BSPTB+IHY+6O+SQlRY5X p0Sh7ih+oLk6ksj95E22Ff4PxLovy/yzlaBjLKy5ux r+YSqasyab8UmpRD+tu47ahSR/Lwe326HBblT30rgsezjwYaG+iA40R3fb/GAeQz+k42qR9kSqDq3vFO O/oF+lj/wZdie1IN/QK/QKfYO+QW/QG/QOvUPfod/x3LhVtr6Gjvl++KiF/Vcr+Mcry41cx2m/uoK/iu Pgr+W9mP366Ph6c4+8gr+Ka4V/Cd7Qg38k3X0dr0Jt +c8r+DlzN0XzjihWzT1JiihM/NV+I0vkJ7mDPrFn7k1QN1/O8cnJEfje/mjuOR5Qs0Z9yg/f/FVwYmvz UuU6qZZ/ZXpy8kvQ2F3Xy/PYdqYwiq3wcmhi6A+2v7di/7AVnTcS3Z30r5UAfyJifjHIAXZ4Vf49WH9e OA0epQfvWXl/bQzVj0xQ/Y7xzu4yKcvaoW4x+rNVPO yK+NYdFA7TzqumyLBZH54i9Z42xkrpIY93qnVBo926jVfw4G/oF/Sr9BE/eI6hF+jRnyN+2LwI49Kw4N P7txB43oxUjEh+Qz+eV1ON5Ci0F/pV+h4qXO4w9Xj/Xh3Pt+T8szmozwfgN/KKjYTi7Hu7JFsUB4j/eo 6hx/jcZ/Xbjv4c/lXMEeFfnWPoBXqBXqGv/UXm2A38 JKAqxmCd4tn+up6O2uEor6Dud/sa5T+iYxQir6A43Rphe2lJ0+4kwV0vlXno7A+0F5EqgM+lWo2XudGi rFn+wmrQW3WndNRW7lyioNGt5gxu9G/4ImVpla6WUy1SpwD/+ZwYA4O/mnT8Xpq1Ne3itvAz+Qo1YfQI p6lWU63um61yW03tKN/VQx/xkqGP/Uihr/1IK/ircw y9Q+/Qd+z80UFxKE4X+35H3Pa7p9xxI+dMs4epz94VoOvJcIz72xkTZnz7Bt8yqFUfQz0Hm66eoT2XyQ wVtITLrqP5rp+vA16nEc4s3lKEe3vucwUBytKpjA/x1jfshsh4ZHPKlcJnbPCtuc8yoAe6zSKM9qIOeA cvqW/kh0CCbK5rprM/rkYEdtU76RTUrQxZmXsG3bmN Tqc8RgNqvhwY0RwmXWUk5aiWP0J+ox1HTUPebQwMWJJSgUa1Di2VZFEUZDKUQN4dc0Q8wYdrPBYU4VVC tRnSAvMHHXTVaHq3cQ2bOkxTFxJBPQPrIFtmIRAP2MWKPyfqXFDW9TQXLkkkOBWV4KBMEsonIUAL5RUU [file] UI0oL52591B1R928FMd0caZlE2l39iXu59Q3tt9N3P LUX9h0wrQLn8lcxMec1+5s6dAimLn8OTw3oJIw34hBXdzdjYcKawPv75oZGxITPHL5Hizw4N66LWg4Sj 5VCeT9MX37fVtPSXsordKtJwoKmFB1hiofWavjOyl6MR4LTGVwpAZv9BckeWlKXROWGDv8Nw2SHKGnFJ +xQceXHrGSOVHdNNP2FVzPtFHCaWBX54G7y4wWXJQJ RTJ7QdBvkWNEEh0VBTQIcdDxHZpEPk9j3MqnEv1jLkg54+O8DN4TYNAIaVkVCa+5reosNx6SJC8PO5ec W5sxKvQespZX9QRvxO55Y4H5vP5/9qvnTsyxVulhPoacOhakVjh1cxf+vE77usI3zsSdT9Lt5KAL0Sb3 oelqMruptTaHlkY2zrxQnx8Z9PX8uE5Tk7FnHbl8VN PDZqyKkNnYdWbWS9doL+tfJZ4S5UhDAMonTxBIDaKFon1SER872dlqPtcIKUGB3YODISf8tWeYmn/0Wd XjFcXj0vBqDFE2FPBcuzqkOS4GXTOzW/ZcJpMXx0IMSUJvmuSA4QUCmJSFwqZoOgo4xuEnMkTGpLFyZg 6WBp/9QG2AUK1jSyB3mWdT8FlL9eaEMkeRrtUvJKXg MxfzQUdvPTjqe0L50adyt38xDa9J2ZKH+1CyHku+ZXS4qjJmxavkIa6V1lL1MXzsGo1Q4yOX59FuimSK J6ogWbtuQBO7r3Ps3xsq0UoCNOVs1ngVH7f8DVXVjstkp29Szw3yLUb3opb1690n658MsIsungIf0nab 9gyw0nnx1awj4qjy8pwh9hurjpGlbrAwnlStclVhfz OsgfFrirCmyPi5oSisCjZdoH9vT16669Yyv6vVop+8/i3m3D5m7n75h1a7N47weyAxBCXZ/u3jD19/+f 4f3r74/P2nX7/8ZW94I5fBXg//0KV8MESbO+G5sekk11+k/yqrvrmk58xC3DggrL+u8ZE3/p86Bnb5/u tv3v/27Ztff/3h4w/y9o068jZKY/y2l0es5o/+m3df ff35h9/+/N1Xv/r402/e3t6++vKbD5+/f/b55kzIX43+7jcff/GTBt3+1P1XS83u5ouu9cQ+2ufvv/n6 6iwFxfvlq8/9jZ/dc/D9s19/+fXXn//av1wbG5p3uv0xV06j+Lqpd++/+Mbmu361f8kuP/xVm7x808qu fvXpu6++uO/03Sf//YOg5vqs5+yfvXv/9smXv/r1x1 +9+/Tt3z7/0Hs9t8mi/+ycQp0Baq3YOjvpyj/jU77jNyN4yh7/+fb15//8/vN/ehnu/Gd1Fk04+P0/v/ sbv7/Hsvv3n/z5h//441++/+4Pb//+32+/+eOf/vTtX/7y3bd/+oe3T7/94Y/f/loax29g17p///bnH9 7GL8R+gF5gpxVrXdNfXc4VM7u6en8aN8R//vtf/Ccv e6IYFDnO/d70vXo9AViZmxyj/w/g/yA2hLUM1q5YuNdgZi1ve/4Cvfwo9WNmXd+xiYo7Tg/hy1fCvkm+ ws3o5dv+wVff/cd3L/isragv0w0semv/6BsAsz0+++s8iy5kmVhDe5tXk1n/lpYtY/CaD6A5Clich72a 01GqNG7AA6wCtnIhmlind/7x7S/f/up1Rbi4i677z3 w594++9uOw1hQW30/PfsBff/X2xx/+67u//J+/uvk4/UOpj50f9/48xeunZz/Ey0270brt/vfr3v/45x 9+evqdb+9zv72RENv/hflOs579AS/7zdY9Lb+F9fmjs+9f5Ykio/vXT27+ewuDnA80R0Rt3iEJqy1ap9 7+4e3b//vdf/71i/M8t0t+/uUnH36+d9L/3w4lb7P/ /+V3f/+TX5/n8E/fff/tk727bDcS2F++/d+///Y///omIc06k4W31g/+8NP/1/ty/enf//q/jxG/+vOf v//oszZ+8oPT3i/+/QaWcVNO0jjTTWlq/MN3v/+fP/zx96/7++eqZAA0lN16qW/46X/+16vP/eGjj3/1 YH22w7Zd67ac8Wio/o/v3uTtz//yHdxZ5lHGtvn74/ wkz7mk2z7c+SBF6t9NY1/3/h7WXj+u+WoP3R+75fdxQ6Pw937++fKb96/sfqpx7hhz2+z4mh5Tpx2jyv tqrlFzeISpZQ7RNK3lo1AcTaA9SGPaf0InMWqjZEp5iXAxUWnexvIqd7MzmxcdT5Ivf0TeWrPzSUSbMa YoObw1ZZAvBgU9gGMiLyDwEOHhQ2VwFQGuHxH8QnYb IBYBJV9PRLQuiiCsYlQvUNZ+HnXoGR7msjufMEAux2FtPZcdPYlzTBWvC8I2dRilXDIqW1TmhJ00CGZq M2KzxiC5DBL4LDJbFwTuQNFvnBLqVRHrSBU+JcXrFG5debmcAASey1EkUYfdNNR7aA6pCQaVWGLMKCoL BYvsJgH2v58yjmUGLHBqCBJjPE0RncEflOrusuMavG KsZPX7GqOnEHL9SLVaKVTsNYWFTXRwVPQjLZGvTZZhH9WksPznAAkNFQAWQWnOWYfuYpKql6T5IOSsfg ZWWEASN66xEPiJJyMACNjbECX6CQOaXNkkD4M4BdmmA6RrOS1JH8DbJIErJHOIDOXoukXqRG7MgvUjdD 1rYExZRPCLPLbQOOzeVoL3p10wmnYPYPWvBDZyJEfi LCWfOFEeVWGpNMYePDKrYWGqIUBwNA4DJ7OeUIFnXZKHQXA4i3IeAKHepnljpxqnIu9nneGvOhf+Pgox NFLqm9YwJUphL9S4mRAxH8DxA0XgIU8ItMCyNIhlSXJnXBKdLOAyN478oiYdPO6+MN8np7ZfZkpwIDPE PIPxKJFoNHTrWZA3TdHeATUoYWOrSVKvBtQ7EbCgVc RQHMVzLKN1ZFH6TZQrHOFmAXQiZDofYKJpMBX5CxFcUAEnKACwYF7jKuJpVCXeBwAcXuOyPTBlGGJece QWLUTiARUjAPTgQXO5EKUvRXWhDHdpRAGiCELmOXA3BOVbUXKoRM1tUyTuUBSzJUFqKydpAOJnLAQwhg PGJELmSELxMEU3ClZlYLJbYSObZHqcLGCuIZTvAlw5 AFUfOBJaQX8xHkTsCAKzQKV0MZjhRPYrQDCrjlDJQDXcMYRaKYAuWeWqEZGlSQQlXGlaWEOiNMHhSfIc ROXjYNBvKW0gXwDkZKXbFLX1CMBzPNYwJYOxwlTZUIBkEFBhJFv1ZBTxFZDhHJOoHPtpOOIvSWGnWCV7 KXQcFNYqXW6jImZdADFwBMTwWHLgVGYkSJNekwBKGF TuMMDqJEV9QWLiIVYmSWRtDNdhKKJoFCGdUjt9FPWeNLScQQ0xNmBySOIdHPO3FWPgBFXkCQXulyHRQH TpCCH2DLA0UnRdKANlZUMvGPnpQLIzTGRlSlP6AECqHIInJH2xRkBkXNNsMPU6WjCdWMZiVPJldgHLGC RuUVKoOUD3MwHlKMXkRVPdGMkpJBVrKYVrHNFvLVH8 MJL3SQCwDoIgINgiKBNSWKnYG8OsblKvIhROV9qpYw3kKiPnPIAKB7Rkr9SrZBRyVCERCm8+HyH8SAF2 lDWtXbf4XXJ0MRevGCRGRj== ID Date Data Source [id number] 12/05/2020 06:18:08 AM [facility] Name Value Range Interpretation Code Description Data Catrachita rce(s) Supporting Document(s) Folate [Mass/volume] in Serum or Plasma 15.00 ng/mL >4.77 [facility] ID Date Data Source [id number] 12/05/2020 05:41:21 AM [facility] Name Value Range Interpretation Code Description Data Catrachita rce(s) Supporting Document(s) Leukocytes [#/volume] in Blood by Automated count 7.1 10*3/uL 4-10 [facility] Erythrocytes [#/volume] in Blood by Automated count 4.15 10*6/uL 4.1- 5.3 [facility] Hemoglobin [Mass/volume] in Blood 12.1 g/dL 11.5-15.5 [facility] Hematocrit [Volume Fraction] of Blood by Automated count 37.5 % 3 6-45 [facility] Erythrocyte mean corpuscular volume [Entitic volume] by Auto mated count 90.4 fL 80-96 [facility] Erythrocyte mean corpuscular hemoglobin [Entitic mass] by Automated count 29.2 pg 27-33 [facility] Erythrocyte mean corpuscular hemoglobin concentration [Mass/volume] by Automated count 32.3 g/dL [facility] distribution width [Ratio] by Automated count 15.0 % 11.5-14.5 H [facility] Platelets [#/volume] in Blood by Automated count 258 10*3/uL 150-400 [facility] Differential cell count method - Blood [facility] Neutrophils/100 leukocytes in Blood by Automated count 61 % [facility] Lymphocytes/100 leukocytes in Blood by Automated count 24 % [facility] Monocytes/100 leukocytes in Blood by Automated count 11 % [facility] Eosinophils/100 leukocytes in Blood by Automated count 3 % [facility] Basophils/100 leukocytes in Blood by Automated count 1 % [facility] Neutrophils [#/volume] in Blood by Automated count 4.42 10*3/uL 1.8-7 .0 [facility] Lymphocytes [#/volume] in Blood by Automated count 1.74 10*3/uL 1.2-4 .0 [facility] Monocytes [#/volume] in Blood by Automated count 0.76 10*3/uL 0-0.8 [facility] Eosinophils [#/volume] in Blood by Automated count 0.18 10*3/uL 0-0.5 [facility] Basophils [#/volume] in Blood by Automated count 0.05 10*3/uL 0-0.2 [facility] Nucleated erythrocytes/100 leukocytes [Ratio] in Blood by Automated count 0 /100{WBCs} 0-0 [facility] ID Date Data Source [id number] 12/05/2020 06:14:18 AM EDT [facility] Name Value Range Interpretation Code Description Data Catrachita rce(s) Supporting Document(s) Bicarbonate [Moles/volume] in Serum 22 mmol/L 22-29 [facility] Chloride [Moles/volume] in Serum or Plasma 101 mmol/L 98-107 [facility] Creatinine [Mass/volume] in Serum or Plasma 0.86 mg/dL 0.50-0.90 [facility] Glucose [Mass/volume] in Serum or Plasma 81 mg/dL 70-140 [facility] Potassium [Moles/volume] in Serum or Plasma 3.7 mmol/L 3.4-5.1 [facility] Hemolyzed Sodium [Moles/volume] in Serum or Plasma 133 mmol/L 136-145 L [facility] Urea nitrogen [Mass/volume] in Serum or Plasma 13 mg/dL 6-20 [facility] Anion gap 3 in Serum or Plasma 10 mmol/L 8-15 [facility] Osmolality of Serum or Plasma by calculation 275 mosm/kg 275-300 [facility] Creatinine/Urea nitrogen [Mass Ratio] in Serum or Plasma 16 [facility] Calcium [Mass/volume] in Serum or Plasma 8.7 mg/dL 8.6-10.0 [facility] Glomerular filtration rate/1.73 sq M pre dicted among non-blacks [Volume Rate/Area] in Serum or Plasma by Creatinine-based formula (MDRD) 87 mL/min/1.73m2 >60 [facility] Glomerular filtration rate/1.73 sq M pre dicted among blacks [Volume Rate/Area] in Serum or Plasma by Creatinine-based formula (MDRD) >60 [facility] ID Date Data Source [id number] 12/05/2020 06:14:[address] [facility] Name Value Range Interpretation Code Description Data Catrachita rce(s) Supporting Document(s) Magnesium [Mass/volume] in Serum or Plasma 1.9 mg/dL 1.6-2.6 [facility] ID Date Data Source [id number] 12/05/2020 06:14:[address] [facility] Name Value Range Interpretation Code Description Data Catrachita rce(s) Supporting Document(s) Phosphate [Mass/volume] in Serum or Plasma 3.9 mg/dL 2.5-4.5 [facility] ID Date Data Source [id number] 12/05/2020 01:16:[address] [facility] Name Value Range Interpretation Code Description Data Catrachita rce(s) Supporting Document(s) History and Physical [facility] BZOESr4pRhSQTaQs51/CMNfvCWCdw2RsZHhfECx0SEnrGCXxT9MyUKD0tL0tIMD9BLnJOuFtUyAnVdH9 lbm [file] 6uqJaw4h2h+a5jVVFukrmE0ydo6Vkl7utii//pSOWOjXfJ6/cJ3IlbSbbc+sRwd6TQ/nL6D/peLM9+CERTIFIED DETENTION DEPUTY 7HvlT4/ehrjPGkQ0uND/Cp4V9J0R4hzKuQkzdMmolZ ez+8x35I/ijCe5kUhl+898R/3u9akQA7e7z//Md+EH9b8W5n/mkdrJszZDSGwQpAsA6t/ylNUj269PW3 +tX8E5owfvi+8huE5AfpI5V1i//ujeiddfqTez/8L340/B1HQdW6UX1+ZM+GhDb3FaQxH8j5co4He2p+ LV1+rN5L7w/zegoadho40iBE4C514/tuwr9kxsdnU/ 2H46Q8p65NeS7zL3EXw731wjUiV6nzG+Xb9HBU98Jyt5Yo2K5Ol+K65759Qed0Ro2M/mO/HL1554/kq9 [file] guzman+U6+/9N2/J+2y3/hkX7Y6vV5r/Qrunw7fCaByuRK +CfXaPubNpS7RICwXpY3V/sd3M/LZFwdt5qeWSGqiun+Yl2a8/lGUcoIOK5vbE2canWiBKi4SUW3Gjpi 2DF552kn9d5EB1qc9G0s0/b6HO/PcFglV78KsR3kMnGhkh7YZ+qYfUl6arwkJ6V8f92+z1ijI9gfDT7t 4T2bxSWH+br1W+Bb3RLF1z+Y49XIPEuqCzw8CPw3xM 3kg4WM9eL7zRkM9+BJ3lVJt2vyamE8rlE15V41qsvcYIs8qAzn3sU+gzv3QNwrvzjNhj0O2WWllh7Axn fGmUe2lTrG2qYlr6GQqvoaH40ds7Y3K2w0Qr+L2ywVnnhkbYgr63j/hu/LHMlDVsvAt0cRuG05js9q71 dT+0uzoMc/IJ+6+9O3kehRvoMxR4tHPDshnMTtHqQS O1D0n4PmqCBWchKTZQ5yNOMnPF60tVvNejp4Ix1u5sZb4Q8MlULIvEpQ47nvKt+FfvIT+AFNh/8NUANr cqBvCg8yuYPuiz41idgfB5fpT1hmgIzbs5Bo9Sgaw2pSBZ5ig9bkujQbcJuYzRU+MdLtstfvvK/A/foil cutter [file] ICAgICAgICAgICAgICAgICAgICAgICAgICAgICAgICAgICAgICAgICAgICAgICAgICAgICAgICAgICAg ICAgICAgICAgICAgICAgICAgICAgDQogICAgICAgIC AgICAgICAgICAgICAgICAgICAgICAgICAgICAgICAgICAgICAgICAgICAgICAgICAgICAgICAgICAgIC AgICAgICAgICAgICAgICAgICAgICAgICAgICAgICAgDQogICAgICAgICAgICAgICAgICAgICAgICAgIC AgICAgICAgICAgICAgICAgICAgICAgICAgICAgICAg ICAgICAgICAgICAgICAgICAgICAgICAgICAgICAgICAgICAgICAgICAgDQogICAgICAgICAgICAgICAg ICAgICAgICAgICAgICAgICAgICAgICAgICAgICAgICAgICAgICAgICAgICAgICAgICAgICAgICAgICAg ICAgICAgICAgICAgICAgICAgICAgICAgDQogICAgIC AgICAgICAgICAgICAgICAgICAgICAgICAgICAgICAgICAgICAgICAgICAgICAgICAgICAgICAgICAgIC AgICAgICAgICAgICAgICAgICAgICAgICAgICAgICAgICAgDQogICAgICAgICAgICAgICAgICAgICAgIC AgICAgICAgICAgICAgICAgICAgICAgICAgICAgICAg ICAgICAgICAgICAgICAgICAgICAgICAgICAgICAgICAgICAgICAgICAgICAgDQogICAgICAgICAgICAg ICAgICAgICAgICAgICAgICAgICAgICAgICAgICAgICAgICAgICAgICAgICAgICAgICAgICAgICAgICAg ICAgICAgICAgICAgICAgICAgICAgICAgICAgDQogIC AgICAgICAgICAgICAgICAgICAgICAgICAgICAgICAgICAgICAgICAgICAgICAgICAgICAgICAgICAgIC AgICAgICAgICAgICAgICAgICAgICAgICAgICAgICAgICAgICAgDQogICAgICAgICAgICAgICAgICAgIC AgICAgICAgICAgICAgICAgICAgICAgICAgICAgICAg ICAgICAgICAgICAgICAgICAgICAgICAgICAgICAgICAgICAgICAgICAgICAgICAgDQogICAgICAgICAg ICAgICAgICAgICAgICAgICAgICAgICAgICAgICAgICAgICAgICAgICAgICAgICAgICAgICAgICAgICAg ICAgICAgICAgICAgICAgICAgICAgICAgICAgICAgDQ x6B6xnXLHaSLMoJL2cBQa5Ad9+NNpFXiGjDXD7khRqvG2BPA2wp0LqOHjoSULgj4VsKKv4AX5IGHEmVG qbZQ0ZBEwjdz8SHPYwEHXzjLLLp4whOgOuVJY6UZTqAoonMR6HMTQxV7mbivSbRZYvMOMVHJxyNYVVKB tsHOVDMKZmVAHeVzFrQsIjDNFrUAZkYWJAHU9NMaDx J0QcdT75TUQPDi1+OWxccoQgKywAScDfHTZzk9CzQPf5SZ1IWQHhTaviq0FcFyLcCJVOJLctMV6BBBF4 POLwZMZmBt2ZKMFrV494owTnLQ3UDd0IYxNlZN6ngo9VYjNxGJJeAgfOZcg5EDfkRG5FuILuWSsSRbRk UdtdCfo6TP4aOHGjyRGcmSSdHKmcMLBkZCUaVy6hUr 0rUSLvSCI6CdWiLILRRS5IYZJrQFPdnSFpAXOnMZUNWR0OKArjKNP5XBRwssSqhLRaRJrrAP7BTGPgxx QgMzIgMCBSDQo+Lg3GUE7qz9QoBUwgSANmOZ6ioo2ETNgKZeZeA0R1sATlY2Q8XScfLa5SRWNfXUCfQk TrNZDTOKysVR3RFU3tkvA0WX8BrDUpKYJzXQKyyFUc PUq1E60nzRJnTHyrEC8RFXE+Sharon+Wq5FENFkWRAkWLFhMqIfKKOFFvMaA8ElQ5MNl3MbO1JzJV95qRtd aeXvXYicZH9JCA9iGZNxSZSMAO6OvEYwtH7vddTnOrDyBFCEXlIqM84stWAcWTRjEOJjVROsWj5NVWPa D6ZrchDpbVkxzaQzFHFnRGSGOG7COVucamSteESwmM alHV46uUuxNJ5YGx6GWmUaBN3nxg5UdUVfMj8BLRKyEP6NNKEeZAHfIGWcZTO0JJSdMjHrOTplXZDmES JuDNN8BIDfXERrUS0FJsCxTCNjNvSlZzPfXHQmJGFmti3NACXmVWToJSJ3XFOcIRLrIIHgJTobSDAwVL WrIKB1KKUvMWIrDB8VHkUwJEZqHENxYlHqVDUpUKPe ro2UUWNpENJrJYMfIWIrWMMxYLLhEIgsQHNhAQS1RZg2AMRsWMEpSJ7SVmOhLCMwREflYJUfTVMnMWMq qy2AYOIyRZZwJKZkDnHcHFNuQFToQTesXLElZPEiYtV0TMXsWEKpBK7QXnQtNQOkLJK2RuLvGZNpCKRg vg1HUTEjIEYkKNF8JoScFXOdSSCyZIfuYQVxKUT6DE LpATKqABAuZN4YAeZcTTOpLHqiUwOjGNSmHDZwhi6LGRTzSNKcSKjkFGKhTYQnXOJcVHkmWKJbEVTkWN O2IOEcOKLfXV4DOrUiCCRkLsX6FkJoQCQyCACoov3IEKDgASYlAUV5QzFzBZHoGYEsLVfvXFOmMXKnIn T4QTMsKAGgMD2VMkRxPDGzXnCrOOXkFCZfBMUedw0R QEXrARGzMnOpXvRhKJGeBAXkJTjwAVFzAGJuVrW1WTTxLVNqRD3UBzXpRVAuBtOmKCDoDILxNIWpsu3Q DSXcMASqLFGrDREfIEPwMOOtYPpeESTsFNT1McC6EZQjIHTjTH7OHdCqKVGaBeG6WEIrLATnLKDttc8N EJZxOHFcMSHnUeEqGITnBVOvGJnuRCRtTJW9WNA0PL QvPRKyUN1TAbCxOJNlXjLlExXpVYQnEABnsv3QVYBgEBRxZyLrSoHqKSOsPIAeIGwiNMEpDJA0CkB7NR CpAZZuWL6SKxQiALDyQvqkRFYqEDIjWWMubx5CFJCqLRNaTIE6VCErBHBfNTLtOCedVNCpVJT7ITLvSU AnUGMiME5EIoHpERdvZWHZOdu2QXtsC8q0IXUbBH6C X5Foc3YkUjQyTNDPHDomKW1sprGtHMVlZm2RL9bSSsnjROZtN2QqTCK4MMuqW3Q3SEuhGJD8Myr6ONx7 XFCnGX4pNXYzXtJ9UoE3LwClCDJ7BANdSTM8GVNcMBrmRfNdLQZ7PnNnXJ9PKk4VLmK9XGU9bXQnRd2F Jpq5RUVSZmDcNW7DJPf= ID Date Data Source [id number] 12/04/2020 09:36:54 PM EDT [facility] Name Value Range Interpretation Code Description Data Catrachita rce(s) Supporting Document(s) Consultation [facility] XHYCKw6aQgTPOlWq52/HWAxuALTuv7PmTUiyQKu2BOtgSOVeB6AwJGK7yK2gNYI5OQiYHoOnZfAcQeIf m [file] ICAgICAgICAgICAgICAgICAgICAgICAgICAgICAgIC GsNPHuGFWfLTQtGYQlVWQcDT0DGMOcWOIhOMMeARByVDDbDTKeIGVeYVYaHRSeFIHzLQEmCVYyGZAtCW AgICAgICAgICAgICAgICAgICAgICAgICAgICAgICAgICAgICAgICAgICAgICAgICAgICAgICAgICAgIA 0KICAgICAgICAgICAgICAgICAgICAgICAgICAgICAg ICAgICAgICAgICAgICAgICAgICAgICAgICAgICAgICAgICAgICAgICAgICAgICAgICAgICAgICAgICAg DSMdBOOeGPGtPS6LEZGiCYWdGKHkJGBqUDYkSNTrXCUzXOUqLJYgOMZwHKIcNKLtOBIcVGVwHIQvDFOg ICAgICAgICAgICAgICAgICAgICAgICAgICAgICAgIC SeWAJpDFTbPQYmTTRuQAVpAZFkVJ7NZUSmUXFnELFpDFYeREQrCZMwGOSiHQUxAEWyRYPjAFMdLDUyKM AgICAgICAgICAgICAgICAgICAgICAgICAgICAgICAgICAgICAgICAgICAgICAgICAgICAgICAgICAgIC FaXU7LYFPcABNgYQAfEFNlTIMoXBJlAMTbSLXgVPVm ICAgICAgICAgICAgICAgICAgICAgICAgICAgICAgICAgICAgICAgICAgICAgICAgICAgICAgICAgICAg WVMtDQXlYMUyBJSmVX7KAZGkHEEiIUIcAIVnFOJoVANdDPWpRIAiVUXhIOLdZYJhICJeLWDhPYGjLBPx ICAgICAgICAgICAgICAgICAgICAgICAgICAgICAgIC FcYAGkACVkCKWlAOObHHHsBDVnSHUaLW2SKCCdALUtYTQdMQKcQWEyVWEsISPjUNLfAJYuHVXrFWJbZL AgICAgICAgICAgICAgICAgICAgICAgICAgICAgICAgICAgICAgICAgICAgICAgICAgICAgICAgICAgIC ThVCZhCH7PYYBuRDItTYHvBYZkYDKwGETqMBNeHPDe ICAgICAgICAgICAgICAgICAgICAgICAgICAgICAgICAgICAgICAgICAgICAgICAgICAgICAgICAgICAg MGTrASDiSEBvFXOgRPFqFE3ZUFDhDPYyEKVeZSMiFLBoMQNpWLNyWLTsRNVaPMPyYENwVCDkPMIrRESn ICAgICAgICAgICAgICAgICAgICAgICAgICAgICAgIC PlYPNfFLVuFUNxERUwBCDqRDQkBBDsDINzJC0AJY00oRFis3H8GMWzPA8sqse/Qq9QDMmbtjMswVJqVW 7UNiLbXY2rrz2AYtTeOF4lrr6DQJdZDfRzE4E3kHEmUYSqBARSOxKcP34kQRuvMz66AEdtHPPtFgVeLT a3Ch7TWoLeR2ljGJSgKkG0UEBsImT9XXWoAkS2QSDs WlIsBTHiLHMbQKMbGNQADGM0PDTeJyLxXiQjPGJlLBycRUXULS7ARiOeU6LrxC33OBfUNy2+DQplbmRv VhpXMfMmTBTzk1NrCSz4RJ6EGLIsQjrvf7MvPPUkSHTCOGpiLU9JXMZ6HPVbIAXaAe1CJCIhD658wwNc UI0LTs9EVzYuEA5ltp4TMWEfDTAlQmnNQyp7ULczUX 7ClCFsEVvYx63ztSk1uuWbjOAKZXtvQEGlG9rvdPMeHMXdHR5CAAV6JPwpPCKeBxHcKUNzMmfrOLYCIX dVJkZtZ3Fxu2EeWtS9AIHqHuYtPEutSQBgAsE0HP18dPkvFI2LPVIfTFMiYU41BZJiEJHoWd1IBf9OOe XnGZ1iro4UOWTmEIFkTaxFWny1WEppKU8KqNNmV8At cARxr2cLSfKjK8MVDYQ4FKZuFk8OWHVbUxHlWSDxNQmkXH1vZYKoWLGTfPjfsoN7MM6QYW6yyvQuVF8S OtDfAh7rRy5ZQqWgC4RqJ3UlDIMsZOMEOAukXZ9VBIwlLV7kFP7Nq7XVuCWfhA8tjh0ULQNwXWMmLolm yz9WOvtkW0A4bJnlBTGbMAEsYMPHGNtyDM4BRJJmQD W6VAG4MIPxEPYKBrCiJ33eLL3FU2Xbb55kOzQ0JFZrLpKoYVgxEQ47kSztbsJepREooJmtTE6XHy7+DQ gfwkKpJarSUziiQFDIQnSeVGPSHkJcQIOvMBUfJFIxMhG8PgPxHa1ODQZsSBWcIZEfNkZpHWBvHKPwPV vjPYVvFCM2WNl2MIYyVQUsAY9AOvKeFUVuCWGbKeow EJKiGZOdao9RYKIyYAVwSNK4OxXzWLRpTUFqFWtnEPJyNDY1WSRaSQKaTUKaUD5JZtEhMPPoPYQ5Ngwl FQNjEGYbvg4GRLUaERTqJECfRlGcCWAbUEDgHIktKNBoUJG8DTNoQOKoAONkYC7FIsPmCUDrRZOgSEPm DNXxRXMipa4AXBOwXVKhZsE6OlZaMUBeVVPiFCbpLP NlXKR9RaQhJYCbLAOwLU5SUeYcLQAoXFJ0MRlsVEQrJSShqm3FGETiEYYnJVP2YiMnZFDxBBBbQTooFC QmFMA4PUBaFTUxIJUpEM0QHkVhZJKxMvX4LnPvRVGiSJOflz9YGSJhYYGrVfM7HGVyGYBfQJKqVAnmFA EcRAS7OHi8ACNyEUOqEO7RJbTmHBJvCvzhPVWcZUDp ETNwsn6IZKSvNIZmIDh9HVHcRHLwKSZaCYgqULOpLOC5DUO7TNCsWLSeJH5CWoFcEMSsIfHiBqQsPIYm OMIubv5FTGSwLASrMKYfZrLfJHArUQUcLJatGUVnJRTpYQT2AJXgQDUiCA3IFzJoZWNkKtCpKfSyMASd FUWuch0ULLUoETIbZYP0CaGjKDKkYDGvHKagXOAmHM GsExP1DHOzRRQqWI7QVcYlSQAjHsA8PZBzMRCjAEWpze6UZWTvVMAiWryiJlDeQLHbVWSpHAklZTKzGU HgBRx2FODkWTIgDG5UYtEpUDHmTgWcDEFeMHVuAMUyka6RRHNmXFPtLTR6CLUmUQRuJOXaQMdwISUkME Z5YIV0XZSvGEAzEC7YNjVrQVJdAOQ5RqZoDFQqPYIi dv4PTBKvELJ6PtC6XkUjIVKhLMAtIDfeSAMpLAU1XvFbJCVxNYUuRX5KQpJsLDKzSFV0BLJbANFkDYQt et7TAHMiDOO5Iir0JkZgMTBoEPGnWStoMVTdMOS5Ahj2KOAnKKNjJN0TBlHdWGSxKMd6RSJhTRDqQGNn sh5NYGTeQEJ3JDF5DNDtCWYpLNHsCMxgJACfRTUsXZ LbJFQrYYUuVE3MTsHkVZOlHNKiFYDiWZPkFVLqlp2HTLZkBVU5SnE1CDCqYLJmLJCwGHnvDUKjPOTwIy Q6FPAwNABwDT9CRiEaSSRmFBX5OEqePVHtFZWmhh6QJYLcGJK4VNU4NKJgCBDbRDFxSEloEUIeJFM1Qn J1WYCxALVmZO1XHqTtGIAjXPY9EEOeHGJdZKXzwl2S QIMoJEU5NVqlEfDmVADlJKHkXBrfLOPgXYV9WSZhKUSaOMVfNV8MLwIxFTDrJWG0HLAsGIDfAONark4M CIOoQMQ5TaCtXfTyEYEgMZIfEZo3rzFnwRXfVCr5VX8PL8SrnmDnQEJQQp3So190ANKnXIItHg0HV4zb Wg1mUAUaFQZEEk7FLCi6OkX9BRH6HSGyMJd8FpL8Yn q6Tde3STJ4XEQcNNTaCHC+NHttLoWvDgY5MhX4QPGbJTupIIGeEGShHXA6FLA2UBVeJc0nWDAQRt4+DQ ypuQMtqMkfMDIYZyY0DGthATbcCLCZEu9L ID Date Data Source [id number] 12/06/2020 12:02:[address] [facility] Service Cmnt XXX-Imp : NoneMicroorganism XXX Cult : Greater than 100,000 col/mlIndigenous microorganisms. Name Value Range Interpretation Code Description Data Catrachita rce(s) Supporting Document(s) ID Date Data Source [id number] 12/04/2020 08:44:[address] [facility] Name Value Range Interpretation Code Description Data Catrachita rce(s) Supporting Document(s) Color of Urine [facility] Clarity of Urine [facility] Specific gravity of Urine by Refractometry automated 1.024 1.003 -1.030 [facility] pH of Urine by Automated test strip 5.0 5.0-8.0 [facility] Protein [Mass/volume] in Urine by Automated test strip Neg [facility] Glucose [Mass/volume] in Urine by Automated test strip Neg [facility] Ketones [Mass/volume] in Urine by Automated test strip Neg [facility] Bilirubin.total [Presence] in Urine by Automated test strip Negative [facility] Hemoglobin [Presence] in Urine by Automated test strip Neg [facility] Leukocyte esterase [Presence] in Urine by Automated test strip Negative [facility] Nitrite [Presence] in Urine by Automated test strip Negati [facility] Leukocytes [#/area] in Urine sediment by Automated count 6 /HPF 0 -5 H [facility] Erythrocytes [#/area] in Urine sediment by Automated count 4 /HPF 0-3 H [facility] Epithelial cells.squamous [#/area] in Urine sediment by Auto mated count 12 /HPF None [facility] Mucus [#/area] in Urine sediment by Microscopy low power field None [facility] Calcium oxalate crystals [#/area] in Uri ne sediment by Microscopy high power field None [facility] ID Date Data Source 12/04/2020 09:31:[address] [facility] Name Value Range Interpretation Code Description Data Catrachita rce(s) Supporting Document(s) Amphetamine [Presence] in Urine by Screen method Negative [facility] Benzodiazepines [Presence] in Urine by [facility]Positive results are presumptive a nd unconfirmed;confirmatorytesting can be ordered at the [facility] at [phone] [facility] at [phone] within 5 days of collection. Cannabinoids [Presence] in Urine by Screen method Negative [facility] Benzoylecgonine [Presence] in Urine by Screen method [facility] Methadone [Presence] in Urine by Screen method [facility] Opiates [Presence] in Urine by Screen method [facility] Oxycodone [Presence] in Urine by Screen method Negative [facility] Fentanyl+Norfentanyl [Presence] in Urine by Screen method [facility] Service [facility] Results below the indicated cutoff (ng/m L), are reported as"Negative." Note: for medical purposes only; not valid for legalor employment testing. ID Date Data Source 12/04/2020 07:11:00 PM EDT [facility] Name Value Range Interpretation Code Description Data Catrachita rce(s) Supporting Document(s) SARS-CoV-2 RNA 2019 nCoV Real-Time RT-PCR: NOT DETECTED [facility] This lab was ordered by [facility] and reported by [facility] Clinical Pathology Labor[facility]. ID Date Data Source 12/04/2020 09:21:[address] [facility] Service Cmnt XXX-Imp : NoneRespiratory P CR Panel : PCR ResultsMicroorganism XXX Cult : See Labs Tab for 2019 nCoV RT-PCR resultsHAdV DNA QI MACKENZIE+non-probe : Not DetectedHCoV 229ERNA Nph QI MACKENZIE+non-probe : Not DetectedHCoV [id number] Nph QI MACKENZIE+non-probe : Not [id number] RNA Nph QI MACKENZIE+non-probe : Not [id number] RNA Upper resp QI MACKENZIE+probe : Not [...] DNA Nph Q MACKENZIE+non-probe : Not DetectedB [id number] DNA Nph MACKENZIE+non-probe : Not Detected Name Value Range Interpretation Code Description Data Catrachita rce(s) Supporting Document(s) ID Date Data Source 12/04/2020 09:20:[address] 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 ID Date Data Source 12/04/2020 07:47:[address] [facility] Name Value Range Interpretation Code Description Data Catrachita rce(s) Supporting Document(s) Leukocytes [#/volume] in Blood by Automated count 9.9 10*3/uL 4-10 [facility] Erythrocytes [#/volume] in Blood by Automated count 4.27 10*6/uL 4.1- 5.3 [facility] Hemoglobin [Mass/volume] in Blood 12.5 g/dL 11.5-15.5 [facility] Hematocrit [Volume Fraction] of Blood by Automated count 38.8 % 3 6-45 [facility] Erythrocyte mean corpuscular volume [Entitic volume] by Auto mated count 90.7 fL 80-96 [facility] Erythrocyte mean corpuscular hemoglobin [Entitic mass] by Automated count 29.3 pg 27-33 [facility] Erythrocyte mean corpuscular hemoglobin concentration [Mass/volume] by Automated count 32.3 g/dL 32.0-36.0 [facility] Erythrocyte distribution width [Ratio] by Automated count 14.7 % 11.5-14.5 H [facility] Platelets [#/volume] in Blood by Automated count 264 10*3/uL 150-400 [facility] Differential cell count method - Blood [facility] Neutrophils/100 leukocytes in Blood by Automated count 66 % [facility] Lymphocytes/100 leukocytes in Blood by Automated count 23 % [facility] Monocytes/100 leukocytes in Blood by Automated count 9 % [facility] Eosinophils/100 leukocytes in Blood by Automated count 1 % [facility] Basophils/100 leukocytes in Blood by Automated count 1 % [facility] Neutrophils [#/volume] in Blood by Automated count 6.58 10*3/uL 1.8-7 .0 [facility] Lymphocytes [#/volume] in Blood by Automated count 2.24 10*3/uL 1.2-4 .0 [facility] Monocytes [#/volume] in Blood by Automated count 0.91 10*3/uL 0-0.8 H [facility] Eosinophils [#/volume] in Blood by Automated count 0.14 10*3/uL 0-0.5 [facility] Basophils [#/volume] in Blood by Automated count 0.07 10*3/uL 0-0.2 [facility] Nucleated erythrocytes/100 leukocytes [Ratio] in Blood by Automated count 0 /100{WBCs} 0-0 [facility] ID Date Data Source 12/04/2020 08:22:08 PM [facility] Value Range Interpretation Code Description Data Catrachita rce(s) Supporting Document(s) Acetaminophen [Mass/volume] in Serum or Plasma 10.0-30.0 L [facility] ID Date Data Source 12/04/2020 08:22:08 PM EDT [facility] Name Value Range Interpretation Code Description Data Catrachita rce(s) Supporting Document(s) Albumin [Mass/volume] in Serum or Plasma by Bromocresol green (BCG) dye binding method 4.0 g/dL 3.5-5.2 [facility] Bilirubin.total [Mass/volume] in Serum or Plasma 0.3 mg/dL <1.2 [facility] Bilirubin.direct [Mass/volume] in Serum or Plasma <0.3 [facility] Alkaline phosphatase [Enzymatic activity/volume] in Serum or Plasma 117 U/L 35-104 H [facility] Aspartate aminotransferase [Enzymatic activity/volume] in Serum or Plasma 19 U/L <32 [facility] Alanine aminotransferase [Enzymatic activity/volume] in Seru m or Plasma 16 U/L <33 [facility] Protein [Mass/volume] in Serum or Plasma 6.7 g/dL 6.4-8.3 [facility] ID Date Data Source 12/04/2020 08:22:08 PM EDT [facility] Value Range Interpretation Code Description Data Catrachita rce(s) Supporting Document(s) Ethanol [Mass/volume] in Serum or Plasma Negative [facility] ID Date Data Source 12/04/2020 08:22:08 PM EDT [facility] Value Range Interpretation Code Description Data Catrachita rce(s) Supporting Document(s) Bicarbonate [Moles/volume] in Serum 22 mmol/L 22-29 [facility] Chloride [Moles/volume] in Serum or Plasma 104 mmol/L 98-107 [facility] Creatinine [Mass/volume] in Serum or Plasma 0.84 mg/dL 0.50-0.90 [facility] Glucose [Mass/volume] in Serum or Plasma 84 mg/dL 70-140 [facility] Potassium [Moles/volume] in Serum or Plasma 3.6 mmol/L 3.4-5.1 [facility] Sodium [Moles/volume] in Serum or Plasma 139 mmol/L 136-145 [facility] Urea nitrogen [Mass/volume] in Serum or Plasma 15 mg/dL 6-20 [facility] Anion gap 3 in Serum or Plasma 13 mmol/L 8-15 [facility] Osmolality of Serum or Plasma by calculation 288 mosm/kg 275-300 [facility] Creatinine/Urea nitrogen [Mass Ratio] in Serum or Plasma 18 [facility] Calcium [Mass/volume] in Serum or Plasma 8.5 mg/dL 8.6-10.0 L [facility] Glomerular filtration rate/1.73 sq M pre dicted among non-blacks [Volume Rate/Area] in Serum or Plasma by Creatinine-based formula (MDRD) 89 mL/min/1.73m2 >60 [facility] Glomerular filtration rate/1.73 sq M pre dicted among blacks [Volume Rate/Area] in Serum or Plasma by Creatinine-based formula (MDRD) >60 [facility] ID Date Data Source 12/04/2020 08:22:[address] [facility] Name Value Range Interpretation Code Description Data Catrachita rce(s) Supporting Document(s) Salicylates [Mass/volume] in Serum or Plasma 3.0-30.0 L [facility] ID Date Data Source 12/04/2020 08:22:08 PM EDT [facility] Value Range Interpretation Code Description Data Catrachita rce(s) Supporting Document(s) Thyroxine (T4) free [Mass/volume] in Serum or Plasma 0.95 ng/dL 0.93- 1.70 [facility] ID Date Data Source 12/04/2020 08:22:08 PM EDT [facility] Value Range Interpretation Code Description Data Catrachita rce(s) Supporting Document(s) Thyrotropin [Units/volume] in Serum or Plasma 5.880 u[IU]/mL 0.270-4. 200 H [facility] ID Date Data Source [id number] 11/20/2020 08:09:00 PM EDT [facility] Name Value Range Interpretation Code Description Data Catrachita rce(s) Supporting Document(s) SARS coronavirus 2 RNA [Presence] in Res piratory specimen by MACKENZIE with probe detection NEGATIVE [facility] This lab was ordered by [facility] a nd reported by [employer]. ID Date Data Source [id number] 11/20/2020 05:08:56 PM EDT [facility] PATIENT INFORMATIONPatient MRN Name Date of [id number] Shabnam Aaron 1985 35 y.o. Weight Gender PT Class 96.2 kg F Psych InptPT Location Admission Date/Time Visit ID Attending [id number] 11/18/20 1314 --- --- EPI ID CSN Admitting Provider [id number] Duran Nielson MD([id number])PSYCHIATRIC IP DISCHARGE SUMMARYPatient: Shabnam AaronMRN: [id number]: femaleAge: 35 y.o.: 1985Admission Date: 11/18/2020ischarge Date: 1Reason for Admission/History of Present Illness:FROM CPEP NOTE:Patient is a 35 year old female with previous reported diagnoses of Anxiety,Depression, Intellectual Disability, who presented to [facility] ED via EMS transfer from [facility] on a 9.37 status forsuicidal ideation. Patient [...] COLLATERAL REPORTS(from CPEP NOTE):Nadja Hancock, patient's mother [phone] reports that there is a lot going on ( has cancer, she has skincancer) and Nadja is unable to accompany her to [facility] Nadja reports that Shabnam is intellectually disabled [...] or know that she is going to [facility] "she lit up like [place]" Nadja [...] liquids okay" (Progress Notes by Marley Ladd [facility]-TAKE OUT WAITER,dated 11/19/2020 at 12:23pm). A diet order was [...] hygieneBehavior: cooperativeEye Contact: goodGait: within normal limitsOrientation: t4Wcnlnb: Clear. Normal rate, rhythm, and volume.Mood: "Good."Affect: [...] kg (212 lb)SpO2 93%BMI 35.28 kg/m2BSA 2.1 e0Rxfiwbyku Medication List as of 11/20/2020 1:41 PMSTART [...] you need to do Thursday Go to [facility] 10:00am Where: [address] [place] [address]55Z. [phone]. [phone] Disposition: Discharged on 11/20/2020 and transported home via taxi.Her mother, Nadja Hancock (telephone # [phone]), approved of the patientbeing transported home via taxi. Nadja Hancock could not brain picker the patientherself because she said "I'm recovering from surgery."Was patient discharged on two or more antipsychotics?Xiomy Jordan MD11/20/2020 Name Value Range Interpretation Code Description Data Catrachita rce(s) Supporting Document(s) ID Date Data Source [id number] 11/20/2020 09:09:00 AM EDT [facility] Name Value Range Interpretation Code Description Data Catrachita rce(s) Supporting Document(s) SARS coronavirus 2 RNA [Presence] in Uns pecified specimen by MACKENZIE with probe detection Not detected [facility] This lab was ordered by [facility] and reported by [facility]. ID Date Data Source [id number] 11/20/2020 10:26:00 AM EDT [facility] Source->NasopharyngealIs this test for d iagnosis or screening?->ScreeningRelease to patient->ImmediateReason for COVID-19 test->Routine testing of asymptomatichospitalized patientsUnit Collect Name Value Range Interpretation Code Description Data Catrachita rce(s) Supporting Document(s) SOURCE Nasopharyngeal [facility] SARS-CoV-2 BY RT-PCR Not detected Normal (applies to non-n umeric results) [facility] NEGATIVE RESULTA negative ("Not detected ") result does not hjbaopfzLEBM-CvW-4 infection, and a negative result should not [...] or call 911. For additional information please [email or web address] riverUpdat es: Coronavirus in [facility] Centerwww.[facility] north campusGet the latest reopening updates, travel guidelines, and learn howmarshall medical centeres and schools are impacted.[email or web address] was performed on the hemalatha? Kell? System using hemalatha?SARS-CoV-2 & Influenza A/B reagent. This is a jfwz-tituFW-QLC assay which qualitatively detects nucleic acid fromsevere acute respiratory syndrome coronavirus 2 (SARS-CoV-2)in suitable respiratory specimens such as nasopharyngeal swabs.This assay has been approved for use under an Emergency UseAuthorization (EUA) by the Food and Drug Administration (FDA). ID Date Data Source [id number] 11/19/2020 03:49:00 PM EDT [facility] Release to patient->ImmediateUnit Collec t Name Value Range Interpretation Code Description Data Catrachita rce(s) Supporting Document(s) T PALLIDUM AB NONREACTIVE Normal (applies to non-numeric r esults) [facility] T.pallidum Antibody Index: less than 0.9 [...] TPal Ab Index ID Date Data Source [id number] 11/19/2020 02:54:00 PM EDT [facility] Release to patient->ImmediateUnit [facility] t Name Value Range Interpretation Code Description Data Catrachita rce(s) Supporting Document(s) VITAMIN D,25-HYDROXY >= 20 Normal (applies to non-num denzel results) [facility] ID Date Data Source [id number] 11/19/2020 02:40:00 PM EDT [facility] Release to patient->ImmediateUnit [facility] t Name Value Range Interpretation Code Description Data Catrachita rce(s) Supporting Document(s) eAVERAGE GLUCOSE 68-126 Normal (applies to non-numeric results) [facility] HEMOGLOBIN A1C 4.2-5.6 Normal (applies to non-numeric r esults) [facility] Per ADA 2018 Guidelines, HbA1c values sh ould be interpreted as follows: Normal: less than 5.7% Prediabetes: 5.7% - 6.4% Diabetes: greater than 6.4%Samples containing >7% HbF may yield lower than expected HbA1c results.Additional testing not affected by HbF can be requested if clinicallyindicated. Contact [phone] for more information. ID Date Data Source [id number] 11/19/2020 08:07:00 AM EDT [facility] Release to patient->ImmediateUnit [facility] t Name Value Range Interpretation Code Description Data Catrachita rce(s) Supporting Document(s) GFR BLACK 64-149 Below low normal [facility] For both GFR and GFR BLACK, th e accuracy of the GFRcalculation is contingent on a stable level of serumcreatinine. The GFR calculation is normalized to 1.73 "meterssquared" body surface area. A GFR less than 60 may alterclinical management decisions. A GFR within the age-adjustedreference range does not exclude kidney disease. ID Date Data Source [id number] 11/19/2020 08:07:00 AM EDT [facility] Release to patient->ImmediateUnit [facility] t Name Value Range Interpretation Code Description Data Catrachita rce(s) Supporting Document(s) GFR 64-149 Below low normal [facility] ID Date Data Source [id number] 11/19/2020 08:07:00 AM EDT [facility] Release to patient->ImmediateUnit [facility] Name Value Range Interpretation Code Description Data Catrachita rce(s) Supporting Document(s) CHOLESTEROL 50-180 Normal (applies to non-numeric resu lts) [facility] TRIGLYCERIDES 30-150 Normal (applies to non-numeric re sults) [facility] HDL CHOLESTEROL 40-60 Normal (applies to non-numeric results) [facility] HDL levels are inversely related to the incidence of coronaryheart disease (CHD).HDL less than 40 mg/dL.........Increased risk for CHDHDL greater than 59 mg/dL.......Negative risk for CHD non-HDL-C 95-160 Normal (applies to non-numeric resul ts) [facility] CHOL/HDL RATIO [facility] CHD CHOL/HDL RATIORisk Group Men Women Lowest <3.8 <2.9Low 3.8-4.7 2.9-3.6Moderate 4.8- 5.9 3.7-4.6High >5.9 >4.6 LDL (calc) 30-100 Normal (applies to non-numeric resul ts) [facility] ID Date Data Source [id number] 11/19/2020 08:07:00 AM EDT [facility] Release to patient->ImmediateUnit [facility] Name Value Range Interpretation Code Description Data Catrachita rce(s) Supporting Document(s) SODIUM 136-145 Normal (applies to non-numeric resul ts) [facility] POTASSIUM 3.5-5.2 Normal (applies to non-numeric resul ts) [facility] CHLORIDE 100-110 Normal (applies to non-numeric resul ts) [facility] CO2 22-31 Normal (applies to non-numeric results) [facility] ANION GAP 3-18 Normal (applies to non-numeric resul ts) [facility] BUN 7-21 Above high normal [facility] CREATININE 0.8-1.3 Normal (applies to non-numeric resul ts) [facility] GLUCOSE 60-100 Normal (applies to non-numeric resul ts) [facility] CALCIUM 8.4-10.0 Normal (applies to non-numeric resul ts) [facility] TOTAL PROTEIN 6.4-8.2 Below low normal [facility] ALBUMIN 3.5-5.0 Normal (applies to non-numeric resul ts) [facility] GLOBULIN 2.6-3.2 Normal (applies to non-numeric resul ts) [facility] A/G RATIO 1.1-1.8 Normal (applies to non-numeric resul ts) [facility] BILI, TOTAL 0.1-1.1 Normal (applies to non-numeric resu lts) [facility] AST 15-37 Below low normal [facility] ALT 15-60 Below low normal [facility] ALK PHOS 39-117 Normal (applies to non-numeric resul ts) [facility] ID Date Data Source [id number] 11/19/2020 08:07:00 AM EDT [facility] Release to patient->ImmediateUnit Colle t Name Value Range Interpretation Code Description Data Catrachita rce(s) Supporting Document(s) VIT B12 211-911 Normal (applies to non-numeric resul ts) [facility] ID Date Data Source [id number] 11/19/2020 07:18:00 AM EDT [facility] Release to patient->ImmediateUnit Collec t Name Value Range Interpretation Code Description Data Catrachita rce(s) Supporting Document(s) WBC 4.8-10.4 Normal (applies to non-numeric resul ts) [facility] RBC 4.04-5.48 Normal (applies to non-numeric resul ts) [facility] HGB 11.9-15.9 Normal (applies to non-numeric resul ts) [facility] HCT 38-48 Normal (applies to non-numeric results) [facility] MCV 80-97 Normal (applies to non-numeric results) [facility] MCH 26.6-30.6 Normal (applies to non-numeric resul ts) [facility] MCHC 31.1-34.5 Normal (applies to non-numeric resul ts) [facility] RDW 12.9-16.3 Normal (applies to non-numeric resul ts) [facility] PLATELET COUNT 142-414 Normal (applies to non-numeric r esults) [facility] MPV 9.0-12.2 Normal (applies to non-numeric resul ts) [facility] ID Date Data Source [id number] 11/19/2020 07:36:00 AM EDT [facility] Release to patient->ImmediateUnit Colle t Name Value Range Interpretation Code Description Data Catrachita rce(s) Supporting Document(s) TEST, UR NEG [NEGATIVE] Normal (applies to non-numer ic results) [facility] ID Date Data Source [id number] 11/18/2020 11:00:55 PM EDT [facility] PATIENT INFORMATIONPatient MRN Name Date of [id number] Shabnam Aaron 1985 35 y.o. Weight Gender PT Class 96.2 kg F Psych InptPT Location Admission Date/Time Visit ID Attending [id number] 11/18/20 1314 --- --- EPI ID CSN Admitting Provider [id number] Duran Nielson MD([id number])Date: 11/18/2020Name: Shabnam AaronMRN: [id number]: 1985Admit Date: 11/18/2020ttending Provider: No att. providers foundPrimary Care Physician: No primary care provider on file.Admitting Diagnosis: Psychosis, unspecified psychosis type (CMS HCC Code) [F29]Chief Complaint:Chief ComplaintPatient presents with Psychiatric EvaluationConsent Obtained prior to completing this visitBy proceeding with this visit, you are providing consent for a [facility] provider to treat (the patient) via a telemedicine visit. By providingyour consent, you acknowledge:1. You will communicate to the [facility] provider using an Anywhere.FMdeo link or through telephonic communication. You have the right todiscontinue this telemedicine visit at any time.2. You will be informed about the [facility] provider conducting thevisit and any [...] provider's location.5. Medical information shared with the [facility] provider during thisvisit will be documented and safeguarded just as it would during an in-personvisit.6. All questions you have regarding [facility] staff or the telemedicinetechnology will [...] Social Gatherings with Friends and Family: Attends Confucianist Services: Active Member of Clubs or Organizations: [...] 30 mL 30 mL Oral Q4H PRN Duran Nielson MD atorvastatin (LIPITOR) tablet 20 mg [...] mg 2 mg Intramuscular Q4H PRN Duran Nielson MD And haloperidol lactate (HALDOL) injection 5 [...] rce(s) Supporting Document(s) ID Date Data Source [id number] 11/18/2020 03:57:56 PM EDT [facility] PATIENT INFORMATIONPatient MRN Name Date of [id number] Shabnam Aaron 1985 35 y.o. Weight Gender PT Class 96.2 kg F Psych InptPT Location Admission Date/Time Visit ID Attending [id number] 11/18/20 1314 --- --- EPI ID CSN Admitting Provider [id number] Duran Nielson MD([id number])[facility] EMERGENCY DEPTHistoryNo chief complaint on file.Patient is a 35-year-old female with H schizoaffective disorder who was seenearlier today at [facility] for evaluation of auditory hallucination andsuicidal thoughts. Patient states that she hears the voice of the devil tellingher to slit her wrists, murder her family, and injure others. 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 Weight Gender PT Class 79.4 kg F Psych InptPT Location Admission Date/Time Visit ID Attending [id number] 11/18/20 1314 --- --- EPI ID CSN Admitting Provider [id number] Duran Nielson MD([id number])Psychiatrist Note - Comprehensive Psychiatric Emergency ProgramDate: 11/18/20 at 2:06 PMConsultant requested By: Dr Aliceaase also see complete CPEP evaluation completed by clinical carry in worker foradditional information regarding history and presentation.History of Present IllnessLindssamy Aaron is 35 y.o. female to the emergency department at [facility] in [facility] where she is apparently quite well known. [...] outpatient psychiatrist for tomorrow. She now presents [facility] reporting seeing the devil and hearing his voice saying to killherself and kill others. She was subsequently transferred to this facility forfurther evaluation and treatment due to a lack of beds locally. On my examtoday, she was seen lying in the bed in the psychiatric emergency room. Shewasfully alert, lying in bed facing the resume writer with generally clear but rathervague speech. [...] appears psychomotorretarded, profoundly depressed and withdrawn. When resume writer told her that shewould be admitted [...] VisualHarmSuicide: Thoughts/ideationHarm to others: Thoughts/ideationInsightInsight: PoorJudgementJudgement: PoorPsych MD/CERTIFIED DETENTION DEPUTY Continued AssessmentMuscle Strength / Tone: Within Defined [...] a more supervised setting such as a fpc [facility] and according to mother, [facility] [...] to provide information about when she startedthis medication.Brilliandeer Looper: Duran Nielson MD at 2:06 PM Name Value Range Interpretation Code Description Data Catrachita rce(s) Supporting Document(s) ID Date Data Source [id number] 11/16/2020 11:12:00 PM EDT [facility] Name Value Range Interpretation Code Description Data Catrachita rce(s) Supporting Document(s) SARS coronavirus 2 RNA [Presence] in Res piratory specimen by MACKENZIE with probe detection NEGATIVE [facility] This lab was ordered by [facility] a nd reported by [facility]. ID Date Data Source [id number] 11/08/2020 03:02:00 PM EDT [facility] Name Value Range Interpretation Code Description Data Catrachita rce(s) Supporting Document(s) SARS coronavirus 2 RNA [Presence] in Res piratory specimen by MACKENZIE with probe detection NEGATIVE [facility] This lab was ordered by [facility] a nd reported by [facility]. ID Date Data Source [id number] 11/02/2020 11:06:[address] [facility] Name Value Range Interpretation Code Description Data Catrachita rce(s) Supporting Document(s) Discharge Summary [facility] SEYFVu8aNzQNZySg54/WDGpmLTNfo7EbFUsjOOx6PMfjLKSqB9UcGHW9vL2gUEW7ZSaTRwHxKyFrJzDg m [file] ICAgICAgICAgICAgICAgICAgICAgICAgICAgICAgICAgICAgICAgICAgICAgICAgICAgICAgICAgICAg ICAgICAgICAgICAgICAgDQogICAgICAgICAgICAgIC AgICAgICAgICAgICAgICAgICAgICAgICAgICAgICAgICAgICAgICAgICAgICAgICAgICAgICAgICAgIC AgICAgICAgICAgICAgICAgICAgICAgICAgDQogICAgICAgICAgICAgICAgICAgICAgICAgICAgICAgIC AgICAgICAgICAgICAgICAgICAgICAgICAgICAgICAg ICAgICAgICAgICAgICAgICAgICAgICAgICAgICAgICAgICAgDQogICAgICAgICAgICAgICAgICAgICAg ICAgICAgICAgICAgICAgICAgICAgICAgICAgICAgICAgICAgICAgICAgICAgICAgICAgICAgICAgICAg ICAgICAgICAgICAgICAgICAgDQogICAgICAgICAgIC AgICAgICAgICAgICAgICAgICAgICAgICAgICAgICAgICAgICAgICAgICAgICAgICAgICAgICAgICAgIC AgICAgICAgICAgICAgICAgICAgICAgICAgICAgDQogICAgICAgICAgICAgICAgICAgICAgICAgICAgIC AgICAgICAgICAgICAgICAgICAgICAgICAgICAgICAg ICAgICAgICAgICAgICAgICAgICAgICAgICAgICAgICAgICAgICAgDQogICAgICAgICAgICAgICAgICAg ICAgICAgICAgICAgICAgICAgICAgICAgICAgICAgICAgICAgICAgICAgICAgICAgICAgICAgICAgICAg ICAgICAgICAgICAgICAgICAgICAgDQogICAgICAgIC AgICAgICAgICAgICAgICAgICAgICAgICAgICAgICAgICAgICAgICAgICAgICAgICAgICAgICAgICAgIC AgICAgICAgICAgICAgICAgICAgICAgICAgICAgICAgDQogICAgICAgICAgICAgICAgICAgICAgICAgIC AgICAgICAgICAgICAgICAgICAgICAgICAgICAgICAg ICAgICAgICAgICAgICAgICAgICAgICAgICAgICAgICAgICAgICAgICAgDQogICAgICAgICAgICAgICAg ICAgICAgICAgICAgICAgICAgICAgICAgICAgICAgICAgICAgICAgICAgICAgICAgICAgICAgICAgICAg VSFvLWIoRVLfZAZyQCQzNJOpNGPfDJHxEMi1U5jhCX JgBLAvQC4xAUw7Sm4+OJsTCqEcHMQ3zlKkhM7CBC9yy4ZlRFuhVYXgk6BsQCi8QW7ZWWTtLWnzDY8XDC lmez3PQQFcMAMqiLKXj4fyNgRdDDX1MCCgVyogBF7XXPPnD3lxvoUcAJElZCQPATrxQUJKADttRJZYFP AdJBIaGyZqVuBnFBCbDLKbWRBIIZR4QHNcPoIyMLMn WQAwDT0EVKXiQ729biYsRS3KRz2QGrClXJ1vco7LZUAxQRPjXgtQOwi2AZsfNX2RaOQmuHR9UGZxIZSJ FgMyX4wrp3EqLVWmYHRKABqqPR1Qg7KgzDQnDVl+Ja4VLQ0mn4GvHOz2UDHyNH4vlt0CTZxXLcAvK1Nk yPdkYAHxy9JcINXmJEGZjK7eACU8ZHS8QBc1QjBoEL BmdpPsGSJxPHPxDS8KCYB5HMWuCFBvTqHhQKRiPOxuQGDUSLgVVhKsR4Ugo8MjCeE1FEKjDrQgWUvqZR RoDmC0OZ38gRtbCU3BTPDeFJLaBV83NOF3GAGyKx8RDx6OIsKxLL7ijg0BFPXfHSDdBfkOZhq4UFxyPP 2DnGEwJ0QsvBYib3iEOjIcK6PUXWArXQXyJe3ITWZs DcBtHQHmFMkpRT2tELIdHOCZsZiqxgO6TE1MWB8votKuPN6DRqXzKi1zNv8NLvPzV8BiM9HlSWLjBREP ZWtjKY1CSPopPX1qIB2Jh8DPrMUceR3hll3FICPzGZIpIczzcg0VHxwdK4S4dPrrIYGjBMNpRPJKSXuf UM1AZMXkHKR7RSX4PoChTOZMUbWaQ84vXM8UQ6Xtn1 6xCsW9UBMyCrRbGSqzTT44qHftjlYxjAXkrRuuKR5KFf6+DQplbmRvYmoNCnhyZWYNCjAgNDcNCjAwMD NqHKIkJXSzIbF3BgGrCw7JCLHjAJPpTZTbCiWnUYPwDDCuGRmaHAZeHIMkAJYdXUAgPAKpJX2QOfExCD KoVRO5XoioIAIiJKDyay4WTECcSAGnNTY7JdEkDWUl QSRpLPaoSLOiYBF1WMV6TQDxBBQzEO2MSwGfAIJzOGM7HMEpVYIhLDBimc3RMGQbPJFoZTK8KqZyZUGv DJYyZNhdMXAbLXF0EgubVGFnLJDcQG2MCxWkPTXpNAW5NYhjYCAvIKIisc9IKNXpKNWbIJj8DfMiEVLj TIBzOAirPOXaBVD4KzQzWWGhFAXwVI5BGpAwQEPoHW E0JZctOGIlXKGypq0RIHRzAIJtPBYrGaMdDOYjTJQgIIqiGRHgEBJ8IfK3BRWjARMeNN5SYwYuVMMjSo D1OXMiJJAcOKCbjs5GIIJgUDWyGbC3UFSyRWUlOVCpNQqmHSCbSJO6QRO4AJLfUXOfZQ7BNiByJIJeBb X7KhZtYJBhYGGeyk4QMAXfTOBrPCMaUTUsLMLuSZAq VAqbQTPxYKZ8QIN3ELGkXDXpID0WZbXtLJKrItL9PeljWEOlTTZjbb9TQUDySRIsGFO2NOJdIEAoIPQo MPyeNISuGJYbQSU9IGEeXFMcBG2APnUfWKMrJzJ8CLKsUMQtGWJqfs8SAMCiIKXiZtRaGYTxFQOxTSAb LUigIUTkZGSqSZw5LYFaOFAqVQ6PKnCpHPNeWwAlGK OhXNHwVVXmar7EUMKsDMOqAuZ4ORXbGJIlGKJlWBrwMPHzFRXtUCHaRKXpILCiLY0BWuYiGSYgINT5Mr HdYCOxVWYkid2BYCKzSEY8YAG3BoTcCVPbCVPfHLglNXUaHZH6RBTdQVWzCVCxFY1PGxLuGJGzLSV6IE LcIPGkOHKwgl0VJGZsKGW9QSk6CfYtHJEoYMTjCIue XMYxDCRpSpKqHIBgZDIwKI0LHlHhXJHhBAQcZuYgRXQlQDEhxg0XJSGlTHS5FWMjYuXmVZXwDUDsZYgc CQNtJBGxIFbqLYSwZQHqFA3FIwVzNFDkIVL9BqGxVZGcZZPztj1PRFUqAFC0AxA3XnUtITYzJJEaRGoz LSFsBRMoUuM9KJTvBLPoIK0DJkXpVBWlNRJ7CldsFX JwJSOhhj8OTYNuDYO8IlG3EZNsAIZjYZIrOQlpHDYiHFT5LRyeSURvEHOtNM9OIvZdMLPiAUF6FEBsMR KoXIHzed9AAUFqAWN8ZYV5OQUiRIJdTZPmIEp8cmWajWVuAEc7QC5FM2OdcyEjGCdGRi6Dn273ENO2LH EvIc2VY8tiOt1qZFImYVNNVo0PBOn6JBH5KcCeSPsh VuTmPagdJuB6PKP9ZBW8EeIeEYBrZKP+ZXrrDzasUWJoPWYpXaHrY2C7ENS3QMhdEcrhAmD8AdRmZL4h XSANCj4+ZDdmiBYgeZpyPNWIVqX2KxMcMVvdZDWSQz1X ID Date Data Source [id number] 11/01/2020 10:33:[address] [facility] Name Value Range Interpretation Code Description Data Catrachita rce(s) Supporting Document(s) History and Physical [facility] WIGSGn6rPjUUNdTi40/ASBunXCLaa6PoAUigIRn2MIzqTRXkN1OfTVH5bK2aWWC9SFcGPhXdGjXeKdNa lbm VcIryBDzMdNMJxZeiRZnGqMEjoNzcczOObAZ2NlZF8XAObW78aBUCeTMVmB6WgFBA5Ipl+Hm6GNYFjiI WaIU7ZCnkA3O7hR0tQOl7+4v9UhAxik2KTdZi47BovvHZMP9eEtzKxn8PyHWrOFQDLSTsVv46pUUP/0H D8aPeIYzrh8zppelv2unzAnavyK9JQ+v1hpVkj/ANDRE [file] AgICAgICAgICAgICAgICAgICAgICAgICAgICAgICAgICAgICAgICAgICAgICAgICAgICAgICAgICAgIC JtTDPpGNFdNCEzSX4IRJUxHHTnFHCbGUAnRTLfGFHa ICAgICAgICAgICAgICAgICAgICAgICAgICAgICAgICAgICAgICAgICAgICAgICAgICAgICAgICAgICAg ATVtFRKiZYAiGJFiTULfJHItVKRzKM8JHTPtMJYxQBYiCXHlPGRiEURbKNFsANCgGZXuKISkXQBiMEYx ICAgICAgICAgICAgICAgICAgICAgICAgICAgICAgIC IaKZKzEUGyGUMuSZLaLSNgJWNrWJVnTVCiVFYoHUCiNW3OXYIbQDZsFLFuGNCbWHFpCCXiVQKeAGKnFU AgICAgICAgICAgICAgICAgICAgICAgICAgICAgICAgICAgICAgICAgICAgICAgICAgICAgICAgICAgIC UpPGQqVKOlVYObQIPoRB4NQBXxTXAiWEAwYEMbYPPt ICAgICAgICAgICAgICAgICAgICAgICAgICAgICAgICAgICAgICAgICAgICAgICAgICAgICAgICAgICAg MGJhWABiAZDmSCVdMZBrZQFmFOPeGEMnEV1RJAByCFOtBNFyMNDxBYQiLMLdLFTeOLCtUYPwKHJzXOKi ICAgICAgICAgICAgICAgICAgICAgICAgICAgICAgIC SxKGAmYZLgQGHdIYAkTHUsKLFaRZFgYCUnJWIrJBDoOTUjXS3CLOKeNADbWQBnIEAyRVGhCNUxPTUnPA AgICAgICAgICAgICAgICAgICAgICAgICAgICAgICAgICAgICAgICAgICAgICAgICAgICAgICAgICAgIC JkONGrYMRlOHMyMUArKIAiEA9BDYFyQDWeOKIeOMGb ICAgICAgICAgICAgICAgICAgICAgICAgICAgICAgICAgICAgICAgICAgICAgICAgICAgICAgICAgICAg WCQfOFVjNKGhPGEwQWZxZYIlYUIbLGSmJXYpDS1KFKCoKSDsJQVzLQEgUDBfLZLaKXIhSOXwGUQwOIEu ICAgICAgICAgICAgICAgICAgICAgICAgICAgICAgIC SvUMTeRUTsGKWjUCUgQJOvYIWiDGFpCZNoXWWtJVLlWELuSPHfUI0KPENsSJFlFSDsPQSqXSQzGUXcXN AgICAgICAgICAgICAgICAgICAgICAgICAgICAgICAgICAgICAgICAgICAgICAgICAgICAgICAgICAgIC JbXEUkKSYcPYLoSGQhEPDqTEOoER9AGT76vMHak1S6 HFXeYE0hvdg/Pc4FGWoztbBjpYQeWE0ZSrDoTI0jpd9UBiNlFM6tuq0AMAtQVfPaF8J0vBZxIXOmTPFH VeMzZ56fGPawTk69ASxxPKBaQuBbKVa6Kj6IZkSiS4ljTBAdJsY1WHMbRsO3XHEhDnU1NYNgEnWnUJZn PKGtBVSgNDVQDLK2KSUtObKoYiFbUKZoGXcnMENZKY UqSGUhQcZhKAfrWQ0Pf3AxgIO3YKe+Xy1KVG0ih2VtURo2HqNyXW0mlz2INKnFKoDcH2FhwlF3BHBhGP SjFw1KHRMxSUMizTM7ZsBmKVAAXsKjH2NpjR37GLSKNk3+EQhaskEbFijXSmHcRZPtk1VkADk8CZ4PRZ EuSWf5hEEfAGBXMME3OEBtbltdnV8xeIRzNWvyYIYh hXDejCxmVU9aZEDnAf77HxVqAtLwFVZ8LEmxXH7vFAvlSQ3MZEP6HYnhHYNbNCOnC0sUXkHxWKXpXeOg uHspAW0VDwZwQ3FkbcYdiSI7FwLsTHWTMp3+VIwgbrNhGlrGHrI1ZFAaq5VxXRr2TJ1NJVLeNCvlFT2M UDWajO9vKTxjIW8OIoX5VSPoTBGWSfWqS54psUXoXD r3J3WkUbUkJYNwPixzVFSxVQtfCvZjWGEyZuNoPRbvZL9+ID4+SYjnTY5XQTeajdVwSYAhEl7YXATlBN PmQT6oIUBpYIDjK6S4fLyjEKZAWpAaF1ghnmkiIG1qZBXjW187xMpzlaZmHISpZYKdTn9ATFLoAVE8GJ IgmSIxQPDtVKEFCFreNP8OhFOyBBS0iB4fHSrdBEQy FXWnB8pRReUgeSjsXJ01mThhqcIhfYYaUWc+Eb0FHL4jv7FnWLj7dgZzJYoyOML4PVqfJRLwGRZbLBDw JAI1UPC5LUMEPkMnAXPgHUSxWVnzEUUcCSRuzq8NQKKrIYL0YsNdDVYoVVPhLWPjQDfcZXOtHEO8NVG8 EUIaWEKbLA5GHkSjFROkLTGbURmyJKGuHSDyor9FGO DoJGQqCwdjAdXnGTEqSJSsWWcaTMOqWXI9HEQxGTHuPOGtGM5JDoRoVNNeTRzpHUVsYFLuQPFrrx9VSF ZdEQGrNWL2WYYpXRHaJMGeWPuiNWSbYOUoDtQuNWHkFQMmWP2KGkCyNUQeZII6IkHzNUIiOZTzrw0SDT RrZTAaMQN5GKMmJALaPYRtYUfhLYGwLTY1CGq8CGMj FKWzAS7IWsHoEPJfXEt1UKUzTWUmLJLmlz1TVFUvEWVyYSb2XiYaMMFmMJSjDSvkVDRkTYCyFLo1VZUw ZMCdTH0VPoIiSECdPyL8TRQaMIBrBXTfbv7HEOBaCCMvXCJsWIEwRAKkOZAcWIjbCYFbGAA6BLCjLWDt GFCqLS0KOhVmVBSuBgxgLqRwRVRvJBLooq0XFVLkGS HgHYR6KnUbEKJaSKCqLPjiHFAiGEGsXoG1KGQnRBHsPJ3MJwIrHJTdUlH4BGMbTTUmIQFdyt0EUQJoTB IvHiizNFUgXWQoSLYtBNmsFTQlGVVfLVT5JKUgVIHoLD8AAfVaZMWwBlFuQOKwBKIsQIBufn8IQVPcKI HuSFS6KHYhGKIaJEAbMNtiBYTdLLE1JVWdEHBaGBTp LD0THpExMIXtMlS0UTHlLFKpIELges8JQNZxRVLnQTGwIBVvNVZtYGZtZDikGULfXHL1Ufl1PUWeEFYp QE3AXgRiGLVuTzK2YQMaBFSsXUIchb0KNSIuPHD0XiI2MLWhNTPqULSzESnwVSYwLTQ0NmxvUNUmCPDn UB5AOlMzAYZqTEw8YXKqRMVtNAIpso0NKDJiJAC9RC IhQIGeBOUfAJGrNUqnTLAsREG8Bfy1THWfGWWiCJ8RGiAoFGKgBVuwDlDjCRBeDPGgsa1AKGFzQSU3MR KkQGUdQUZrNIQjYKrkNYNkLGQ6DTg3HLPqJEDdCM4KEzXrCRRoPYZ7XXDmTRMkMRMarv4MEIJlSTR8RI w7TNPmOMOlKZDjVIbnJHIyXJT1HDfoGLArNQBtDX5H QeUqEBVbWGGiCztgONKpMBFtsh0FUPJiGEN6LTF9QWRaYTIxXHWkBYzjOFLvLPU9NTfsTLQzZRBpKB8S DuUqZWAyYWA5SdMgQPVlHYXbrf0WPIQmPOV9VMt1ZQBiANHfJZAkGVvfXRHmSYY5WAYmZHHoVPAqQZ1F LgMbYBCwBOwqVOJqHLXoIIGgsv9FBIZrAPT9DiP8Wt PxTUIrBKLeEMzcBGJaAAV4Ovb2LWHnZKHzBP2TQkTdUETqOKzaJyJjNCIpHNInna8HCMSuUHY9CQN6ST AcVYGtLQFzTXriVOMtKFT8MMf3VHKkHJGwVT0IKrCxMTsbTMWHQzn9HMzoC0g4UJA9HU8FU7Qpm2YiXH TrMFILDXouLU7lhtJmJZHcXv3CT6aUSlz6FeHpXWB4 O4WaRCO5NvMpKnhtECN2CnLmReE5NjKkLZ6aRDi9VOI3DMnfFtB9EVBgCUOlJ3PqAuovSAVjGMMgRVI9 KzGkPP2GYs1XBbN2CHA6fDSrVt9ZZZi7GtyFFmFaPA1TMAe= ID Date Data Source [id number] 11/01/2020 06:34:12 AM [facility] Name Value Range Interpretation Code Description Data Catrachita rce(s) Supporting Document(s) Calcidiol [Mass/volume] in Serum or Plasma 35 ng/mL >30 [facility] ID Date Data Source [id number] 11/01/2020 06:27:22 AM [facility] Name Value Range Interpretation Code Description Data Catrachita rce(s) Supporting Document(s) Cholesterol [Mass/volume] in Serum or Plasma 127 mg/dL <200 [facility] Triglyceride [Mass/volume] in Serum or Plasma 138 mg/dL <150 [facility] Cholesterol in HDL [Mass/volume] in Serum or Plasma 48 mg/dL >50 L [facility] Cholesterol in LDL [Mass/volume] in Serum or Plasma by calcu lation 51 mg/dL <100 [facility] Cholesterol in VLDL [Mass/volume] in Serum or Plasma by calc ulation 28 mg/dl 16-42 [facility] Cholesterol non HDL [Mass/volume] in Serum or Plasma 79 mg/dL <130 [facility] ID Date Data Source [id number] 10/31/2020 02:16:[address] [facility] Name Value Range Interpretation Code Description Data Catrachita rce(s) Supporting Document(s) [facility] YLFMLu7eJdSTQqGqd0WzGiQgSSAbZQ2ugnw0Q0W0hXHeN7HkpTIff1qdJ8YpD6XzJMEdYCZCJG3SpCGl jb2 [file] AwMDAgbiAKMDAwMDAwMDUyMyAwMDAwMCBuIAowMDAw BJDzBrQhVTWhSOAjUA1rLjHmCJAhPRF0LRIgLFQfUXSowaSPLLGjQPEcAUg3FJBoGNVcTKWsXOtgKQZo PWJjEGG2SSMoOZLuFF2wHtVmGLPuXVIuPEZcCPTaSNNkihEZMAFkPSFhFXX3SHAkOUEwHVLlQGwaBNPv TTMhZiq9QUYaWTWpUC4vYcDvUOBkNGD1XLKwPQUeLE CkftEVDCRhHKWbPAD3SnViEYGcFHMaDOruONBfQABwDaX0IYPtGKDeTL5wXlAiZQQeWFG6UeNzXJQsPC OypmNCGVFnDFRzZLE4KwCwPGFtKEEuRMdxQVShEJZiIBVxUBX5GLP4NUWoBkVtFYjfUUBTJLzLO2Wkwh PmPyYAS4wePv3kYmTfTRPTY7Sbj3TxBDWkOAYXHt0+HuP1LPL6qOViGgsrOSg6WYeqPXWDOi== ID Date Data Source [id number] 10/31/2020 02:16:[address] [facility] Name Value Range Interpretation Code Description Data Catrachita rce(s) Supporting Document(s) [facility] FFUONt1lMaYQMtLnu9OyJaMxMCWzWX9qurr8C3Y1aFAcR7FqaOCrz0vjW8QeK0MoCSDkUKPGJI7WwAUd jb2 [file] fvP/rw8t3//f6v/3Xx3N/operations and maintenance specialist+++vTDR2+2VK/L75VP /+df/odvi0L0zBy//O8k6867lMQ1kC0js//xp+/++sN3P/+thM8iPiqpQ/5rA/c4vf/zn3/6+M3+Zf6i yHmp3/23Re0Domq4rBtmWE/PP3z/p3//+Yc/kCkg66cgiIlFDhBql813nLG/+vFXf/v37/+Olz2Cbo1U 8buvv/vf37/Yy5//0zwXG01/LRfzN2+JUSvdr6fiwD 9Rc360rI8a0MM2wBSG+er9Z+/sys7o5x2b53Gm/+TTT7/69svXsuXNUOjNDO+eI/5oaI1OrZkjawPrwS WwTJ8RPR5lc5HoFnD3EFUtc4ZkHLgzBTt2wXZhXTxmsoCgg4NaxijsM4Wyq7DiZzEbEAQsScBgJki3FL DxBrQ6dKOrZoEkCLAnD8FmPHVoZdW3WcKlMVBNNX9L YXJlbnQgMiAwIFI+AnMpWC5ipkwnTUVzy0CeZWgdIOubRQMzD0X3lLkpFEVjQ9UwoF05BJRtC0CpqnR3 YQG3UAWmIlRfWTKjxMZiECMrMQW+YqPgQX0lbjbgRXScv2OaKJayUPI5wO8yOSeAENUMYMxEKZmmBeT4 f56flpQFEPNvSBKgFL1DyxItfPcmipJltTGnGFG4Ue GkBES6LDvyCFZ7PLUBHCBgGRMkMOQdLEHgA0HleUcwWViYLFGJQQcLDJssJgNih3D9VUCedhFQNPRWE1 5nTXxCFrTPHQmkQSS6SAZcWJwfD9E2ThyuO8GvTI4PH6IwZTKeYXYOGSZwrzNdEJ0QxdIicC9rAWyBXD YWHMkDAKpiMaW8u18trrRQECBkYPSmPLpgWENsHASt ZVYyJNFfRKKeNMAwJAAeAZ0HM0LmWJCfXTLCWIP1h1QdTBPmpebbmkinYu7qppZiQbf+PechDUXij6Yv JClwF2Z1qAQnB0JaW1KzKM8JsTAtMKrqKMMlXHVnCNDkV347bsHrKA1+ZU0nw6RlOpppLBUQDXOxNDAn TSJqVOJ9LfUvQUBfOFIzNVDlVeE3VdThSiIOAQNkQX W0DET8PHSaDKOmWNQaGJipSMVhAQF6NmEqVIYiUIZdXN4jApYfMCPlNxv6ULZjJQYqFUWlwuSRGBBySJ NcWKZkGKZ2AETwKYExMQxbVKLdPVHmIAS3JLKxYFHwSI6kXhSgNXDnQTEkLyrjYVDcZHKoysHIQRNmMG DeWEG4GxQcYEClTTEaKMtrTKEdFSBnDnb2CHXxWILg EZ6qFmMaSMUtXOF1ANomILCkGEExmpBNDBJiJMPiTEKyNwCnGNWeXNMuCAjfUTOxZLZwTaTgJBHaJTFd PC4zIzKqVARhADX8KQTdNTQmWWPrzfVPRAToZCXpGKc7QNFwGIDoTILjRSzmSTDkTBVcEHK0GQPxIGGq PX9fKmDiRJQfENAkHMWmYSKkNSMjinRGRQJuQSFtNE S7EPSeSNJzSSSkICmjBDGtYAAcCql0NGCiUMOeYS7lYbBgAGAyWKW9SHGkNAUqYTZcnwHEJZSiJSXdIP IvAeShNXRiCFXmKKrjCSUrNKCfLoP1TVYwFXZePK7rJaXfZVFmKTS9HhIhYWSgNKDudzFYVTAqFLAiSH E1SlJsNXMvRNJqQDkwCKKgIYSsUZYoVPH3OBO1GCKu DqIsZTebZURDNXrEF6ZtnhSfLmIWH8qfGh1yOgVeDSPPP5Hwh5NwJTPmDXIKKn1+TeU3BLY8fXRdTkk8 MDEwNQolJUVPRg== ID Date Data Source [id number] 10/31/2020 01:42:54 PM EDT [facility] Name Value Range Interpretation Code Description Data Catrachita rce(s) Supporting Document(s) Color of Urine [facility] Clarity of Urine [facility] Specific gravity of Urine by Refractometry automated 1.020 1.003 -1.030 [facility] pH of Urine by Automated test strip 6.0 5.0-8.0 [facility] Protein [Mass/volume] in Urine by Automated test strip Neg [facility] Glucose [Mass/volume] in Urine by Automated test strip Neg [facility] Ketones [Mass/volume] in Urine by Automated test strip Neg [facility] Bilirubin.total [Presence] in Urine by Automated test strip Negative [facility] Hemoglobin [Presence] in Urine by Automated test strip Neg [facility] Leukocyte esterase [Presence] in Urine by Automated test strip Negative [facility] Nitrite [Presence] in Urine by Automated test strip Negati [facility] Leukocytes [#/area] in Urine sediment by Automated count 4 /HPF 0 -5 [facility] Erythrocytes [#/area] in Urine sediment by Automated count 1 /HPF 0-3 [facility] Epithelial cells.squamous [#/area] in Urine sediment by Auto mated count 16 /HPF None [facility] Mucus [#/area] in Urine sediment by Microscopy low power field None [facility] ID Date Data Source [id number] 10/31/2020 01:03:00 AM EDT [facility] Name Value Range Interpretation Code Description Data Catrachita rce(s) Supporting Document(s) SARS coronavirus 2 RNA [Presence] in Res piratory specimen by MACKENZIE with probe detection NEGATIVE [facility] This lab was ordered by [facility] a nd reported by [facility]. ID Date Data Source [id number] 10/19/2020 04:43:00 AM EDT [facility] Name Value Range Interpretation Code Description Data Catrachita rce(s) Supporting Document(s) SARS coronavirus 2 RNA [Presence] in Res piratory specimen by MACKENZIE with probe detection NEGATIVE [facility] This lab was ordered by [facility] a nd reported by [facility]. ID Date Data Source [id number] 10/05/2020 12:42:[address] [facility] Name Value Range Interpretation Code Description Data Catrachita rce(s) Supporting Document(s) Discharge Summary [facility] KJGXXo9vScFPPvRh57/ZUJgeZRIfr0RrIOvxEKd8VSwxBQYzD6DtFWD5pO7gRSD6MUwHPtBkLaZbGLI3 lbm [file] RjAgMTQgMCBSDQogICAgICAvRjEgMTcgMCBSDQogIC FcHLBuQcLuDkWgJWMLOImpVQEqVWKvSoAxKlYmVFUOLLxoRGXuZQGvYnLqEgExMPEIZq8PJvYnDYQbOM 5zpsCulAJ4LAY+Yr8VHJSdDC8KcOEAZ8BapWOeXCenZ8ZKQA1QDAC4UL2UgFCwXO1SfSQSS5VlvVHkNq 3wYSIvx7VhWu3oB9GZPPDEERTcYJplUYbkHHUdVNn9 D1E2OHTrY5OQD678pRLqyEl8Yi0fX8BHQIyBFyDzVLbaTDkqUNYdQMu3A3M1VHBtT4RIK7RvFnJaarRq Y2U+KrBuGAXGTC4GQHOLKNk8S2V2lVZkT3K0yThAlOM1KQ8QHM4StRNgrILcc49+GlHRAlQoBGXjJ7LA LVDDRpByNHjaOXgtTWRxWRx8D8M3LUAoY5ITY8hpJ6 h0ZW4+AnTKRjJhMGJvGz1MWvKpZi6THoOeYC2oct8ZGfbkKOWfPabUIiw8W4dnfge7wGCsIoV7L2A7Vs I0hVAoRI8UO6Z1uXMyXHL6HMMjxZS+Aa7Rm1XvWUQnOGx7M5nmEDDhGLWjKjImdS88H++5qeowiEW2M2 m3MVCWnMMoyRbAyvIlS5jKYFJ7u9U4ACr/Pt4QJHI8 zTo2yMLlJNOvLUw9mQ7xgEt1KbIuOX81ACQbIOqdvV3iSzr0N0Yuc5SfNv4eHv3vhLVoOx3AFmUfPRG0 kfXbOoDKKsO7xQxcwvtnPGJ8A0h5dFZ6Cp09k0vuouQov7KdOsM9MWqxJYJyLvFbryXcUTI1dmDbkV1w vjFhEc0QBNVbAPbliqOsDeRJVz8WXhLuTK37ZrpgfW 1ldGE+DQogICAgICAgICAgICAgICAgICAgICAgICAgICAgICAgICAgICAgICAgICAgICAgICAgICAgIC AgICAgICAgICAgICAgICAgICAgICAgICAgICAgICAgICAgICAgICAgICAgICAgDQogICAgICAgICAgIC AgICAgICAgICAgICAgICAgICAgICAgICAgICAgICAg ICAgICAgICAgICAgICAgICAgICAgICAgICAgICAgICAgICAgICAgICAgICAgICAgICAgICAgICAgDQog ICAgICAgICAgICAgICAgICAgICAgICAgICAgICAgICAgICAgICAgICAgICAgICAgICAgICAgICAgICAg ICAgICAgICAgICAgICAgICAgICAgICAgICAgICAgIC AgICAgICAgDQogICAgICAgICAgICAgICAgICAgICAgICAgICAgICAgICAgICAgICAgICAgICAgICAgIC AgICAgICAgICAgICAgICAgICAgICAgICAgICAgICAgICAgICAgICAgICAgICAgICAgDQogICAgICAgIC AgICAgICAgICAgICAgICAgICAgICAgICAgICAgICAg ICAgICAgICAgICAgICAgICAgICAgICAgICAgICAgICAgICAgICAgICAgICAgICAgICAgICAgICAgICAg DQogICAgICAgICAgICAgICAgICAgICAgICAgICAgICAgICAgICAgICAgICAgICAgICAgICAgICAgICAg ICAgICAgICAgICAgICAgICAgICAgICAgICAgICAgIC AgICAgICAgICAgDQogICAgICAgICAgICAgICAgICAgICAgICAgICAgICAgICAgICAgICAgICAgICAgIC AgICAgICAgICAgICAgICAgICAgICAgICAgICAgICAgICAgICAgICAgICAgICAgICAgICAgDQogICAgIC AgICAgICAgICAgICAgICAgICAgICAgICAgICAgICAg ICAgICAgICAgICAgICAgICAgICAgICAgICAgICAgICAgICAgICAgICAgICAgICAgICAgICAgICAgICAg ICAgDQogICAgICAgICAgICAgICAgICAgICAgICAgICAgICAgICAgICAgICAgICAgICAgICAgICAgICAg ICAgICAgICAgICAgICAgICAgICAgICAgICAgICAgIC AgICAgICAgICAgICAgDQogICAgICAgICAgICAgICAgICAgICAgICAgICAgICAgICAgICAgICAgICAgIC EcWBFuNSStEHSxQLGgZEYeVBNxSSHnWFDbWKQcDSRzASFyQDRuVXEsVBKnCILdDOImVTHzAEApUJk9J5 teSUHwDPDsGZ3zKPc3Nn4+IRjJGjHyZXM6juLzbG5F KA9hd4TaADvoQOAvo6CiGOs5WA1TVSEmBVjvQU3VIIsqjl2PMCCtCECuzUKGz5yeNzMgJWW0OXEbAxvr XR7ASBWdX3icxqUfZLMmOGPIOYsfCWVEUGxrNQWJIDZfRNDpXdQzJCkgTG5Lh7UptTQ2YKo+Vc6UJN3b q7IaEXlyRPVyHZ3cue2AQFyIQaDeP3QanoR7SMXvHL KgLj9SMBTwCAHgkIFtZZOqJANBWuWyV1KmeA84OCSLNr8+GHnvglHhZoiZLhFcILCaq8TqDVi6BV6UPE ZuAUp9yJHoSPqxS0qnmhdyTKD8oU7xebzaVzpgTRqsmJJkeKDDFH8isPGoFV1MXDZ6JTZlOg8kUAFmWT J8LvEcSTFNQS0SONDwAUQqyZWhIZAhGBHFKQ4CVOfx XLB9RUDhneFpkHBmTYrbBO1AFXTglcUfCbnmLRFQUNi+Fm9SBD6qg8ZbHZhvWKAsUG0zop6HQGeYTdZb U2E6oIHzD9I7YMizFx7QUWXgUZVlRjcoEWABAVvxFQ7VEJ0jtjI4RZ4AzPLlQVQgQOLbiYMeFJj6K82i dOFkQDskJY6XOSF+Sharon+Ci1SBHKdZBWgQRWmKlOgJX GYSsDyG2ZwU8QFf5BcR0EkTT04lHmyldZaAZpnLV0NFX2qMOWkJUEWWH8QgKVqoC2ctyHxQCYxULYMBz GlW30jxIUrJQSuKTZ5ZVUnNn7NVKJlM2QcpjIblQjhqhJbNPBvQWGHKM4PDSqtuxRmaRMfkQxfGM24rO phIT4KXj9AStGlDG2fhm6DvYRnTc6SKRKfFe7XZWJi RSEgMHEhYNF6DOGlEmHoKKtqJEMiVSFmTIR0KCXyZKIaES3NSsGxUXSyYEn5IEXsQRZiLKHcth2ZBIFn NAGbDZKrPBMkNNMkFGTwBJinPKTuWPWmXRJ4LNKuGUXwJH6KVaSiFAYdSPVzOdncDTUzJIDvbp2GVVSt EQOeYUG8FZFhUSLcSXXmZVuuVWQgZSR0Sre5WBDnWE CgUK3IYhAwVQUaOYz8KIAoDNPeDFZctu4FGWWwCCPsFFZ4XDWgQQVoNPUwLAkrPLFbAZDoWAO7TGQvJN BaEE4VJqCiSFHzCXD2SLNdCSWlZYXbpd6DZUUdAMLdGdT3VgYhJTJqUYHrTHjqNYTdYMLrKvS1DIHqEC DbLC0YTmChSBVwXMT3BAKyUXFoJTZvll8OYSZkLEAk QZXsJhBwHWBcYZKrRFbvYHSnUSI6MOa7LLAjTYFzYN8ZOhEkRARgFVFpKVscEVTeWJWbpu6CVAGuFKIb EOE7OyKsKDJnMLQeISkrAORfONK7RcA0AGCdTESnBR8IQwZpTJFkEKN1FiypVVDxDTNoiv5IITSiHYRo AhonWGDmURFmAOJuCEznRMLbGGO9Slp8IPFsVYSxUN 8CPkBnTRTtIRn2BGTkYHNyOYSdsq3JSFHmVWIxPXS8UZDlQCIxZZXsMOtpXNBsFQP4DIC7KLIqYBZlSY 1ESwOxXOKmNZyaDthcQTAhZVMdhv9PTXQxWCByKTXuZUEqQYYjOYLjLWvtBTOjZBX9VNu7FEKpXPZuJB 3MQhMpCMGgRiExVeKyUGSqEQUxmi3AMOJzPHHtZUJs OsKrXOYyHHZeUOydKXGiXYKyXRT2WEEbJFQyVS3MYmVuKFylKYREWmr6ICudE6a1ZQUjJy2HH1Ubl9Xt IfLaGJZOEOpzDV4gtfFgRLBlGc2CU8zRPsorZTG2FgM9URN8RxBgLDWbNLMeR1Q4SYMrPfD9UFR8Ve3o FIQ3AFvtYxS9BQQtU7KnZvI8REHgEGj2XcV9MwCnKc RbLxOkXQ8TQo3NNxQ6AQM7yDHiPm9NCqQ2UCINYmLxWH3PAVy= ID Date Data Source [id number] 09/28/2020 12:45:[address] [facility] Name Value Range Interpretation Code Description Data Catrachita rce(s) Supporting Document(s) ED Provider Note [facility] GDCWMe7wGzRZTyAa25/FPXfkIGKlr2PrKSrjICt7DCbfVQYiH3FoQBQ9oH0zNZJ5HKmCVuUqBrWwNBI9 lbm [file] 8qh55zdBmXkE2/FGtrbhQido/vn4LP5QCZQD7JYRIPJMY4WL/sgPuDh91tajMFqKH+jose m/nWCI2iQPw [file] LlUDt0K19qrBYmVJfuOY3TOLW+Sharon+Gf1ZVULaZJDb NWUpXmBzRGJDExSjG2EeW7UKa5HbD9MeBD90nYvmfiDvOUjuZS5JLS4mRLTmMVJBNX5SkZBezX0gbmN6 OtXmSLMWXmSyD74uaNJlHUOhMKU8RASvMm7JOZWoE4SegoGurVfswcNcIHZxKBXYUL7EBJllfyVsbIVm yZyuHK47yTpjUN1FGi3JQqRnOQ5bpg0IbQFpGq6FZX K2Qi9YXWXdAQFeEVRlPFE4BPMzCpCxRZjiFDQyNCDzXXX4VYKiMQUeAD3FPfNrSKPxHQYpYEzfUTCtPF Hgtj2OFBLtXPH9Ovs9CFFzUTZbDDQhWObuUMIyFKEbIHV3YSDeRMNsRJ7IFuHyDQXxZZE3DhFkLIViZK Bkfa3HHTUoADVzSiqkZRXvYDZxLPTuUYbvBNYhHFU0 JGu6NOKiEXStPV7AMuShMLCzHVTvQXBmGKAhBWUtds1UVFWsCFUpQFZ8LYNeOANgYWTtHLfaXALkHAK7 AlOoMKPoOOZiJH0XQdPfREDqCBJ8RVXpZRXrWFXbqw1RIMWmZHVbKaU6KcKwZHTsNCPjNEvoSQXkEWP6 RXzlUAMkQHMfON2AOwXoGYRbRPYrQqagZFTxHAGaxv 9CKHQxSOIoCCaqZUOuBBLuAJFsUEnrFGOkLEQ0VLC8YRQhGRJgGI0NWuJxDKXgTbP6VBFhAHBpDEXibl 1EMKQqEMSaEQM5XGLnVUZrGTXdWNwpVSKiXSG4OIW6AABmXMNbFW7KQyQbIDBjPeSqOTKzODDbETKsoh 2HPURfKZIsBTM2YOQbPXFfBBZsFUswRMLcRTS6IVa2 LERqEWAdPR3NUcDpUPAhWeE3IJVlKIVwMJKour1JNJJnFICkBvp2OXTsSWSbUYAuNJbdGAAwCLJ1Goho VZGrMTRdZA8QDkStMDJjWmE0MmbvTPRhUVYzxe0BHCXzAVGnTEHsVSMrLGAiFXReHVyoCJPwDET6UxL6 TMCuZPJaDB7IGjGdGVEdScxvGKfzMGGuJIBmep0OKX JfCGVjEGM7WHTgTFBuIJVmCStgKJMrQPJ2WnC4NCCeEWVbZR7OHjViOIArCSX3GiGhANXzREQiil3JBO BpRDA8LDwrFCKdXNUyYSJzRAczWHJmVNYfCTM5OBRnNTHvGO3YNkFaEVKwUHX0JbTrIIVrPXZwoi5IPO UfWCC5NiM2MtTdIXVcUGRkQRlxUVUuRDNyWaF7FCSv PNVqFF5VPjUcXKUqBXJ6JRZePARoVUEgyj1HTBViBMZ4QNPdUHKhWHHhDXEdNCeaVSVcULL0KaWdLIAy KUQcGV1WNrHeXDGvREY7SjEnNBVpNQAzzi6RZRRoIZZ9XIrvKpPwVSYkSUOcEVduQQEsSYR6HnOfZUHm LVOtMF5JIdCmTEYiFPM5AZuyOGZdZJKarf9PXESpMZ F4WmPbFhWrQOPoZPHcCBwsDFQvYTL6MMI7WYVyZUIxKT9MRbEmMQYuPDf5UoXsNSNfTABnhl0QHUBiHI G3XFL5VRIaXGJeLNNrLYcxNHVtKAR7OpGiNQIiFVBrJO3JOiYzFOQwHTrkGMhzPSCaRZQjrm0XWBGkGF C6QNV6JHVaCPMdLVBmOEbyZESfGGM2TrHiLIEkKORy OI1SAdPkAFZdDEc1PHPgROEkNHGzdn5TTFGcGXZ5OGHeNcTkBBNnZQScWOemVARiLWX0Xng5DRKmJRFw KM1GWgQgXJqcBPCDJwd9KRnwQ3t3OPV2Yq9JX1Zqx0EbPYQjFKERFIavMN1gywGlOIKtNh9AL4bFSjt3 NrDqI8IyQbD9ABfyQkY4JDRnFASkWlsaMjBxF0QrSF 8wKKy2NrCiDZMqHQf7CIM4Mof4IEZvVUNjC7SsPJY1MTH9RfMyGV1BZu8SSmX5VSW6cEPpOs7BNFk4Cm BEDeVaJG2KWMz= ID Date Data Source [id number] 09/28/2020 08:12:[address] [facility] Name Value Range Interpretation Code Description Data Catrachita rce(s) Supporting Document(s) Valproate [Mass/volume] in Serum or Plasma 42 ug/ml 50-100 L [facility] ID Date Data Source [id number] 09/27/2020 08:31:56 AM EDT [facility] Value Range Interpretation Code Description Data Catrachita rce(s) Supporting Document(s) Ammonia [Moles/volume] in Plasma 69 umol/L 11-51 H [facility] ID Date Data Source [id number] [facility] Interpretation Code Description Data Catrachita rce(s) Supporting Document(s) Bicarbonate [Moles/volume] in Serum 22 mmol/L 22-29 [facility] Chloride [Moles/volume] in Serum or Plasma 107 mmol/L 98-107 [facility] Creatinine [Mass/volume] in Serum or Plasma 0.72 mg/dL 0.50-0.90 [facility] [facility] Glucose [Mass/volume] in Serum or Plasma 90 mg/dL 70-140 [facility] Potassium [Moles/volume] in Serum or Plasma 3.8 mmol/L 3.4-5.1 [facility] Sodium [Moles/volume] in Serum or Plasma 139 mmol/L 136-145 [facility] Urea nitrogen [Mass/volume] in Serum or Plasma 18 mg/dL 6-20 [facility] Anion gap 3 in Serum or Plasma 10 mmol/L 8-15 [facility] Osmolality of Serum or Plasma by calculation 289 mosm/kg 275-300 [facility] Creatinine/Urea nitrogen [Mass Ratio] in Serum or Plasma 25 [facility] Calcium [Mass/volume] in Serum or Plasma 8.3 mg/dL 8.6-10.0 L [facility] Glomerular filtration rate/1.73 sq M pre dicted among non-blacks [Volume Rate/Area] in Serum or Plasma by Creatinine-based formula (MDRD) >6 0 [facility] Glomerular filtration rate/1.73 sq M pre dicted among blacks [Volume Rate/Area] in Serum or Plasma by Creatinine-based formula (MDRD) >60 [facility] ID Date Data Source [id number] 09/25/2020 06:37:56 AM EDT [facility] Name Value Range Interpretation Code Description Data Catrachita rce(s) Supporting Document(s) Bicarbonate [Moles/volume] in Serum 24 mmol/L 22-29 [facility] Chloride [Moles/volume] in Serum or Plasma 107 mmol/L 98-107 [facility] Creatinine [Mass/volume] in Serum or Plasma 0.85 mg/dL 0.50-0.90 [facility] Glucose [Mass/volume] in Serum or Plasma 90 mg/dL 70-140 [facility] Potassium [Moles/volume] in Serum or Plasma 4.0 mmol/L 3.4-5.1 [facility] Sodium [Moles/volume] in Serum or Plasma 138 mmol/L 136-145 [facility] Urea nitrogen [Mass/volume] in Serum or Plasma 15 mg/dL 6-20 [facility] Anion gap 3 in Serum or Plasma 7 mmol/L 8-15 L [facility] Osmolality of Serum or Plasma by calculation 285 mosm/kg 275-300 [facility] Creatinine/Urea nitrogen [Mass Ratio] in Serum or Plasma 18 [facility] Calcium [Mass/volume] in Serum or Plasma 8.4 mg/dL 8.6-10.0 L [facility] Glomerular filtration rate/1.73 sq M pre dicted among non-blacks [Volume Rate/Area] in Serum or Plasma by Creatinine-based formula (MDRD) 88 mL/min/1.73m2 >60 [facility] Glomerular filtration rate/1.73 sq M pre dicted among blacks [Volume Rate/Area] in Serum or Plasma by Creatinine-based formula (MDRD) >60 [facility] ID Date Data Source [id number] 09/24/2020 05:14:28 AM EDT [facility] Name Value Range Interpretation Code Description Data Catrachita rce(s) Supporting Document(s) Leukocytes [#/volume] in Blood by Automated count 8.2 10*3/uL 4-10 [facility] Erythrocytes [#/volume] in Blood by Automated count 4.54 10*6/uL 4.1- 5.3 [facility] Hemoglobin [Mass/volume] in Blood 13.3 g/dL 11.5-15.5 [facility] Hematocrit [Volume Fraction] of Blood by Automated count 41.0 % 3 6-45 [facility] Erythrocyte mean corpuscular volume [Entitic volume] by Auto mated count 90.3 fL 80-96 [facility] Erythrocyte mean corpuscular hemoglobin [Entitic mass] by Automated count 29.4 pg 27-33 [facility] Erythrocyte mean corpuscular hemoglobin concentration [Mass/volume] by Automated count 32.5 g/dL 32.0-36.0 [facility] distribution width [Ratio] by Automated count 14.5 % 11.5-14.5 [facility] Platelets [#/volume] in Blood by Automated count 248 10*3/uL 150-400 [facility] Differential cell count method - Blood [facility] Neutrophils/100 leukocytes in Blood by Automated count 60 % [facility] Lymphocytes/100 leukocytes in Blood by Automated count 27 % [facility] Monocytes/100 leukocytes in Blood by Automated count 9 % [facility] Eosinophils/100 leukocytes in Blood by Automated count 3 % [facility] Basophils/100 leukocytes in Blood by Automated count 1 % [facility] Neutrophils [#/volume] in Blood by Automated count 4.91 10*3/uL 1.8-7 .0 [facility] Lymphocytes [#/volume] in Blood by Automated count 2.20 10*3/uL 1.2-4 .0 [facility] Monocytes [#/volume] in Blood by Automated count 0.74 10*3/uL 0-0.8 [facility] Eosinophils [#/volume] in Blood by Automated count 0.28 10*3/uL 0-0.5 [facility] Basophils [#/volume] in Blood by Automated count 0.07 10*3/uL 0-0.2 [facility] Nucleated erythrocytes/100 leukocytes [Ratio] in Blood by Automated count 0 /100{WBCs} 0-0 [facility] ID Date Data Source [id number] 09/24/2020 05:24:02 AM EDT [facility] Name Value Range Interpretation Code Description Data Catrachita rce(s) Supporting Document(s) Bicarbonate [Moles/volume] in Serum 24 mmol/L 22-29 [facility] Chloride [Moles/volume] in Serum or Plasma 109 mmol/L 98-107 H [facility] Creatinine [Mass/volume] in Serum or Plasma 0.87 mg/dL 0.50-0.90 [facility] Glucose [Mass/volume] in Serum or Plasma 92 mg/dL 70-140 [facility] Potassium [Moles/volume] in Serum or Plasma 4.1 mmol/L 3.4-5.1 [facility] Sodium [Moles/volume] in Serum or Plasma 140 mmol/L 136-145 [facility] Urea nitrogen [Mass/volume] in Serum or Plasma 16 mg/dL 6-20 [facility] Anion gap 3 in Serum or Plasma 7 mmol/L 8-15 L [facility] Osmolality of Serum or Plasma by calculation 291 mosm/kg 275-300 [facility] Creatinine/Urea nitrogen [Mass Ratio] in Serum or Plasma 18 [facility] Calcium [Mass/volume] in Serum or Plasma 8.4 mg/dL 8.6-10.0 L [facility] Glomerular filtration rate/1.73 sq M pre dicted among non-blacks [Volume Rate/Area] in Serum or Plasma by Creatinine-based formula (MDRD) 86 mL/min/1.73m2 >60 [facility] Glomerular filtration rate/1.73 sq M pre dicted among blacks [Volume Rate/Area] in Serum or Plasma by Creatinine-based formula (MDRD) >60 [facility] ID Date Data Source [id number] 09/23/2020 04:52:[address] [facility] Name Value Range Interpretation Code Description Data Catrachita rce(s) Supporting Document(s) Leukocytes [#/volume] in Blood by Automated count 7.2 10*3/uL 4-10 [facility] Erythrocytes [#/volume] in Blood by Automated count 4.52 10*6/uL 4.1- 5.3 [facility] Hemoglobin [Mass/volume] in Blood 13.4 g/dL 11.5-15.5 [facility] Hematocrit [Volume Fraction] of Blood by Automated count 40.6 % 3 6-45 [facility] Erythrocyte mean corpuscular volume [Entitic volume] by Auto mated count 89.8 fL 80-96 [facility] Erythrocyte mean corpuscular hemoglobin [Entitic mass] by Automated count 29.7 pg 27-33 [facility] Erythrocyte mean corpuscular hemoglobin concentration [Mass/volume] by Automated count 33.0 g/dL 32.0-36.0 [facility] Erythrocyte distribution width [Ratio] by Automated count 14.7 % 11.5-14.5 H [facility] Platelets [#/volume] in Blood by Automated count 247 10*3/uL 150-400 [facility] Differential cell count method - Blood [facility] Neutrophils/100 leukocytes in Blood by Automated count 58 % [facility] Lymphocytes/100 leukocytes in Blood by Automated count 30 % [facility] Monocytes/100 leukocytes in Blood by Automated count 8 % [facility] Eosinophils/100 leukocytes in Blood by Automated count 3 % [facility] Basophils/100 leukocytes in Blood by Automated count 1 % [facility] Neutrophils [#/volume] in Blood by Automated count 4.14 10*3/uL 1.8-7 .0 [facility] Lymphocytes [#/volume] in Blood by Automated count 2.19 10*3/uL 1.2-4 .0 [facility] Monocytes [#/volume] in Blood by Automated count 0.58 10*3/uL 0-0.8 [facility] Eosinophils [#/volume] in Blood by Automated count 0.23 10*3/uL 0-0.5 [facility] Basophils [#/volume] in Blood by Automated count 0.06 10*3/uL 0-0.2 [facility] Nucleated erythrocytes/100 leukocytes [Ratio] in Blood by Automated count 0 /100{WBCs} 0-0 [facility] ID Date Data Source [id number] 09/23/2020 05:10:49 AM [facility] Name Value Range Interpretation Code Description Data Catrachita rce(s) Supporting Document(s) Bicarbonate [Moles/volume] in Serum 23 mmol/L 22-29 [facility] Chloride [Moles/volume] in Serum or Plasma 104 mmol/L 98-107 [facility] Creatinine [Mass/volume] in Serum or Plasma 0.80 mg/dL 0.50-0.90 [facility] Glucose [Mass/volume] in Serum or Plasma 86 mg/dL 70-140 [facility] Potassium [Moles/volume] in Serum or Plasma 4.0 mmol/L 3.4-5.1 [facility] Sodium [Moles/volume] in Serum or Plasma 134 mmol/L 136-145 L [facility] Urea nitrogen [Mass/volume] in Serum or Plasma 14 mg/dL 6-20 [facility] Anion gap 3 in Serum or Plasma 7 mmol/L 8-15 L [facility] Osmolality of Serum or Plasma by calculation 278 mosm/kg 275-300 [facility] Creatinine/Urea nitrogen [Mass Ratio] in Serum or Plasma 17 [facility] Calcium [Mass/volume] in Serum or Plasma 8.5 mg/dL 8.6-10.0 L [facility] Glomerular filtration rate/1.73 sq M pre dicted among non-blacks [Volume Rate/Area] in Serum or Plasma by Creatinine-based formula (MDRD) >6 0 [facility] Glomerular filtration rate/1.73 sq M pre dicted among blacks [Volume Rate/Area] in Serum or Plasma by Creatinine-based formula (MDRD) >60 [facility] ID Date Data Source [id number] 09/22/2020 05:25:54 AM [facility] Name Value Range Interpretation Code Description Data Catrachita rce(s) Supporting Document(s) Leukocytes [#/volume] in Blood by Automated count 7.3 10*3/uL 4-10 [facility] Erythrocytes [#/volume] in Blood by Automated count 4.41 10*6/uL 4.1- 5.3 [facility] Hemoglobin [Mass/volume] in Blood 12.8 g/dL 11.5-15.5 [facility] Hematocrit [Volume Fraction] of Blood by Automated count 40.0 % 3 6-45 [facility] Erythrocyte mean corpuscular volume [Entitic volume] by Auto mated count 90.7 fL 80-96 [facility] Erythrocyte mean corpuscular hemoglobin [Entitic mass] by Automated count 29.1 pg 27-33 [facility] Erythrocyte mean corpuscular hemoglobin concentration [Mass/volume] by Automated count 32.1 g/dL 32.0-36.0 [facility] Erythrocyte distribution width [Ratio] by Automated count 14.6 % 11.5-14.5 H [facility] Platelets [#/volume] in Blood by Automated count 255 10*3/uL 150-400 [facility] Differential cell count method - Blood [facility] Neutrophils/100 leukocytes in Blood by Automated count 54 % [facility] Lymphocytes/100 leukocytes in Blood by Automated count 33 % [facility] Monocytes/100 leukocytes in Blood by Automated count 9 % [facility] Eosinophils/100 leukocytes in Blood by Automated count 3 % [facility] Basophils/100 leukocytes in Blood by Automated count 1 % [facility] Neutrophils [#/volume] in Blood by Automated count 3.99 10*3/uL 1.8-7 .0 [facility] Lymphocytes [#/volume] in Blood by Automated count 2.37 10*3/uL 1.2-4 .0 [facility] Monocytes [#/volume] in Blood by Automated count 0.65 10*3/uL 0-0.8 [facility] Eosinophils [#/volume] in Blood by Automated count 0.21 10*3/uL 0-0.5 [facility] Basophils [#/volume] in Blood by Automated count 0.06 10*3/uL 0-0.2 [facility] Nucleated erythrocytes/100 leukocytes [Ratio] in Blood by Automated count 0 /100{WBCs} 0-0 [facility] ID Date Data Source [id number] 09/22/2020 05:48:42 AM EDT [facility] Name Value Range Interpretation Code Description Data Catrachita rce(s) Supporting Document(s) Bicarbonate [Moles/volume] in Serum 24 mmol/L 22-29 [facility] Chloride [Moles/volume] in Serum or Plasma 108 mmol/L 98-107 H [facility] Creatinine [Mass/volume] in Serum or Plasma 0.78 mg/dL 0.50-0.90 [facility] Glucose [Mass/volume] in Serum or Plasma 95 mg/dL 70-140 [facility] Potassium [Moles/volume] in Serum or Plasma 3.9 mmol/L 3.4-5.1 [facility] Sodium [Moles/volume] in Serum or Plasma 139 mmol/L 136-145 [facility] Urea nitrogen [Mass/volume] in Serum or Plasma 12 mg/dL 6-20 [facility] Anion gap 3 in Serum or Plasma 7 mmol/L 8-15 L [facility] Osmolality of Serum or Plasma by calculation 288 mosm/kg 275-300 [facility] Creatinine/Urea nitrogen [Mass Ratio] in Serum or Plasma 15 [facility] Calcium [Mass/volume] in Serum or Plasma 8.3 mg/dL 8.6-10.0 L [facility] Glomerular filtration rate/1.73 sq M pre dicted among non-blacks [Volume Rate/Area] in Serum or Plasma by Creatinine-based formula (MDRD) >6 0 [facility] Glomerular filtration rate/1.73 sq M pre dicted among blacks [Volume Rate/Area] in Serum or Plasma by Creatinine-based formula (MDRD) >60 [facility] ID Date Data Source [id number] 09/21/2020 02:54:[address] [facility] Name Value Range Interpretation Code Description Data Catrachita rce(s) Supporting Document(s) [facility] [id number]/KEWolCATky2LrFLtmQYi8DFxkWRLjJ6DbUDS0aY2iCTO7OTnUVtCbKiNvGNQx [facility] [file] [id number] ID Date Data Source [id number] 09/20/2020 08:26:52 PM EDT [facility] Name Value Range Interpretation Code Description Data Catrachita rce(s) Supporting Document(s) Consultation [facility] [id number]/OCTfsGTDxr1FkYRafACx0VNhtQWMbB5KqEBD8lK6pHKT3QStGHbJvKzWiIJV1 lbm [file] [id number]L3AGUHYY4NOHa== ID Date Data Source [id number] 09/20/2020 11:36:03 AM EDT [facility] Name Value Range Interpretation Code Description Data Catrachita rce(s) Supporting Document(s) Consultation [facility] GHRURz2vFeMDLiQb00/NCKkgMYQmx1EcBRptCNa7RVaeUHMxA4WpUTJ9dW3hUYT7RMfZNyVmHbTkFGL2 lbm [file] ID Date Data Source [id number] 09/19/2020 02:20:12 PM EDT [facility] Name Value Range Interpretation Code Description Data Catrachita rce(s) Supporting Document(s) Consultation [facility] MMIWQk7zVeMCJnEx42/XNItmEVHla5ZzWNuqKOt9MEuoTLReT4ZtPKY5kP4mYYC8KXoBXhMtXrDwLCC0 lbm [file] ICAgICAgICAgICAgICAgICAgICAgICAgICAgICAgICAgICAgICAgICAgICAgICAgICAgICAgICAgICAg XHDdACWlJNAtZRPqURAdOYGyTQHlCNGfMAOdPBKkWNBcSRWmOJ1JAACuMEOsOKPsJKVqNXTbIYSbZIYs ICAgICAgICAgICAgICAgICAgICAgICAgICAgICAgIC GaYUEgXSSzDOPuCUUbKFKcJEVmGULrFVEfHWMwRSXvVPJzXAZuXIGhCVHbVFKzQS3LQREdWFElIOFqCN AgICAgICAgICAgICAgICAgICAgICAgICAgICAgICAgICAgICAgICAgICAgICAgICAgICAgICAgICAgIC XdAGNaSRPvCPVjIJMpZEYcHCReFQJmNAGdOFJvVQ8Y ICAgICAgICAgICAgICAgICAgICAgICAgICAgICAgICAgICAgICAgICAgICAgICAgICAgICAgICAgICAg QHIeUBSvVGLsYRKcXYDmUFKmFZXkUAYyDDDzYIPxESMnTJHxZTUtFE8HPRKwJUHcBAOkAAJaBXCrWJPb ICAgICAgICAgICAgICAgICAgICAgICAgICAgICAgIC YfINWyVMHfDNPyRWShHXDvNAYaCDYaRFGvJDNnXEWsSGNjNCAcTRBnUQQxIIEyRZUeOA6GJUBuOWQoKR AgICAgICAgICAgICAgICAgICAgICAgICAgICAgICAgICAgICAgICAgICAgICAgICAgICAgICAgICAgIC AgICAgICAgICAgICAgICAgICAgICAgICAgICAgICAg CL2UDYEzDNEmXUSgZOXoWYYsHYJuBBFoOHLaNHYhBJNyDDBoHVNkPXVxNOItRYSrDQDnVNDcEPQcPPYp LLEvXBEgYSHuUUJlTOLnRTGjWHRzCRSgDBDkVRSuUCBaMZVqSKMhNQVxFU1RUGGiLUIzZUEvARWxPJTa ICAgICAgICAgICAgICAgICAgICAgICAgICAgICAgIC IbWWRfXHFyMJZvYAZyOTOtFXGuRQSeCGNsFEJrXHTqPTNlTBNoCLSdWXQgDSGzCCVtZIZbXA6USLKyXJ AgICAgICAgICAgICAgICAgICAgICAgICAgICAgICAgICAgICAgICAgICAgICAgICAgICAgICAgICAgIC AgICAgICAgICAgICAgICAgICAgICAgICAgICAgICAg NCZrYI0WPQPpGAEvUUYuHDVdDCJkBLZjGNTsXNSbZTAgMIDyNWUePEQsDAXqKXSrPGBsKQFjFYUcPLOf OYKyEYSiJAHoJHZtJCZsPAEhDYPeNARaKGQmXAWbKGQgCKVeDXJoQDQgYGAyRG7UYY82jAWdr6S4JJYz QT2izss/Wj9ESCeyliQkePGaGH2RQhRuKV4gxd4LVm ZvEC8fmd9FAVsCPsVnM4G6fQHqIHQvZVHVQfClE97yEUzpXe61UXnrGWUvSzFeLEk0Ff8PYhWvV5llTR EjLqT0LJFnIpC6UTLcOdIcFRrlPK2Pl9EhwGLyUOv+Rd6HFA7db0MpFZavPhShFC9ywo2CSTnKOnRsH3 DjooF0IGNuDWBrSf3SAYSxNDWsfBMjAbVbYRXLPlVw W2AogP89SMHTJm6+TSdprzQfUnqUUdXiUHErx4BwQDa9OG6LLCOsGVt2bMIfU42th9BnlCUmFdfsVsZ0 dTQwMJ9gIWNpl0QwPAWAmXTirAIvIZMsYD7nAK6eCMQmMAJlMfT2PHZURV3QVKVqOTIguMRxDYDdTFTJ OD2DUYxxUKW5DZGynsIghWTxSIrrWZ9HEYAmfcPlHk IgMCBSDQo+Lr6DYM2jo3OeBNwdRJUqDO3tvb0CTFpHXhHlT7V3yJOpG9O0BWndIw9WWIOgRAEtFwGpQP ZBGGehQZ7EKE0xybC0UH8QtVViORGcPPBroZJcVKx4N54uoVWsBOzoXZ6PJJO+Sharon+Ki6FVTVvVARyTU BgNcAbJXTISyLmC3QtZ3STb0OfM2QdVS60cZpjarTa EGyyVS9GIF1qSIYsVNUPDG3VcIEblP5hsbTiZmNmXBAPVdFsS00zkCVdKOUkTEFrEWAfVs1MREXjR7Au saLtmMdfxbMyVIXkEKQTCM6RNZajagBnyKKofEzoBE54yMuxZE7KIp2NYfLqVF6agm9MaZGrCz6DFTKa SW0IASOyUERqGWHwRFQ0OYDiDhPsLMuuFCJxBZWlQS L6GPCnOBUpLQ7EAgTdMAPdOOP7OTVsLEImSYTjww5TAOOxNGFnJgE5GcOrJAIkDSTfXJffIJFbSOAeTQ R3OPFrRERrMC2DEiQbLKEsZWH8AJDhXQHqULOlyf3IQKCzZOEnEqG4TIOdYWHwJBDyBAxzNQNlZAZ1Yq H1DINlJPWfMR5HUoKdTJTtLSI8SInzPWBiXGNjyz9O OKUuVXRgYnI2OzOpPIShGNQfYKlqYPRdPYT5MWajGVAlLHGgPT1MWoBfQOOfDAJ2PHPsXJGhCCPmhh2N YEIwVXMeYlgqDzWjNTDdNIZuUWirLFHuPHE7ENZ1IYXqSTNwMH9ELlOvCJFiLVatPCLmEVOmVFPwgj4A OYLeJCIfBGS2JdAvNIEvFFVjCWtlOSHxGZJ4DpI2RB YqCJCvIG3FBaMwIUUtUUm1KPIgIDKgUXCpok1YPKUnCLLhLWDxHuYbSYQxTYAxSIbsGROgYEOtNhY8JQ SnHWEfNX0FKwGwXMZeZEJ7CSHhHHBzNVTcuo5UFPBkENJwGGQjKgEzUDYzIMXlQStuZJDzRLXfTpq1ET RgWDWhXH5GYgXcMJOzMSE6SVgvPPBlJTHygo7YEDOo SGMtTgi0AhUdPBZmMGSjYHo6vlHkoNQsZWm9UK4HT3GqbfHuSaKNMu3Nm874PGU8AMGxTe6TI5dcQo3d NGBxVNCOOr3IORl3LaQ0CQBpZwFuDENyMUx7GFq9FvMcXycdKJyvIjzkERX+IDwyNDZhMWNmMTNlYjJk SGpmGDu7DXDkBJRwP9JiV7WhDH5sYLYARg8+ACghjHMjvKoxCQWABqTcQFEuOXzjNWZDWb4D ID Date Data Source [id number] 09/19/2020 08:34:13 AM EDT [facility] Name Value Range Interpretation Code Description Data Catrachita rce(s) Supporting Document(s) [facility] PBGDKs8mKlSTEfEuz0VpYeJdOWJvAB7nuur8J2V9uOUcQ3YgnKDki5iuB3MoL4AiPUXoWCKPSD7FyVXj jb2 [file] EWjAXcXf0JyUAUJLHJfbeDKDQIKXiwxcJBTROFhTHx Dmn8OOmXrCZxUfy3WXoRxYQiRmo1LBnBzLQpQcn6ZVkDiIUpZpsJRT3bSPDr7NWAQ23dHXLb/Wx9AEdt UPxQzjPXzRJHZo13vtDPqYMIBr2RnUOVSNSRAR5ZnTDNPIQZSS9I+2LeJhF4SdCiESSW8FTOC4BqFSeJ HXasFWvPts6CTibne+7N/LwDya0E+zHVgiPf6NlLtX aUQScm2F2dfQGI0nIMq+HyX6DRcoyqYykBcIFmJo/moS3rXJJgw2BtbNJKVudkGChcCsyDEzNnhRaVyk 7UIeErGHbyLttCx4TnpawqrO44qCeEsr8OrS1b0EVI+9DVIgn4AmiPayIDwTlZC8A6IeuDZ7RvR1TONz VDsK6wR13tBDA8Do1z9zQ92gXoY4qtDwHcJazNzMPl Ll+IXNxnP6EhPMR0McAJIAEXiNApPf6FiSSGpbSUykwIfuOFPHliJi6x2qEuRrthH9he2d079GkXd469 MJN3jz897/ebktHDtYh64r54cpGrP5qR5RVo2vNhLaMAqfM7G+UC9s4R7MUzmh2uA4/qxTKoWH40uiLS zEOp4h28a8wfb5yeoh5W7Y9SD499M29K0rEC9pnMim DxzjKQ7/+GF/CuJg87PX2wkqQl+iBruEaRI8Loit+IwrvJLjrsI6S+3vUUXsCOdDpEIVUnucXDT9cd5v FYV1MILwaak3595t/MM+MzWJ3vX6K1Y7i9S7fzn0Jwj3TNiHEAtTiDE+JEgkgQucfCFiEpTxEpIpMIdb GjrBmlNjBDqAMyTeo9LMrWzTKuHel4LRsNpHVhWzsz +RM1n1kRfWpkk1g9kdk50z+Ysx84+zYlZRDvnRCRmFsi3F52TvT727nE/85jVsREUSE4UsREetdoWpVU JiS1W51Gjy0pq6lCwrTbbUmfuKwiGBFYZDdaPlPLPHReZOxAU3jCLN/pJtYXc31LvlESBfAYtQ/ZcvkT VxAWUs8JMZ/bSeNww9X/jSYRWE4Q2lhyQbjvMIGhYo IKRTwpiSG3wjrx084wR5N8FH64sq0yy81eDZZIuF1D5TUMl/0XNxhb8pKYI/py7/ejaYd1p/+O2Ny7/X nr143jq0GU865/Y6leyy5a5VMvhblfcx22DXDp779+fThm5QJai3u/Ie44U8/ch98KWyb2m/3iy2Zf2Z /PQVkysdJ3TpwGwV/gJwSgcgT72+y2Ex/x1aKC2YoA mSYdEwxX5pxR53e1wB1uGaxDAc6BnNOVNAJEox59RBMjtf/KP4d65zao1WD1ji42BBz72cV84a9bW+7c e0m59xc5Z59046mE6Bu+6g7axZ2+6dni3PnzE1i61tLL01zBo/CnK/qqr2gH2SPnS3zx6CrFmZEN+Yariel MFA2V05ZXexd3xg8Smtl0nxW3lQ7XR15oJ98x+SC/0 pjijaqWBh6SLn3NV/7WDYRRIII/jO54D+FLpZAe5LW6qMH/Hd2+hOd/pXiL8ZhA0N6G85+XAv3UI0rE6 U7KzZasKZ/8DwMkapAECZDoRdDsXcPDbVeu3B6wcjcFvNKPUXbKi5C4oUUH7KSmVeoHq5JN4SnaBDCYV JE2A8G+0GjMrL2I1G/HLKHNb4h9oCmB1OPCQVfXxoB OjDqwGAjucFGcksiWJfmhviCWxGZRCZac/LHwe19JdXobEA1qXgf9uLvCLPfjz84kt59lw2bAfBktOqQ vR6KzfBGa+g9Dal3kU6/rhI0exM6omS0lcgHsmSf6lkw+XXctrepjz4TYwDvzPZo0pMDzP7IMuees2gt aQ7widXwcuM/gi9/4kMQESJCRIkokUFkEKEOkjpI/G eotL1tajWVAXYZUyrnPYBIwLSY1/q1j+OlasP594oM2kG1AvuC3lyHsqNO9sGF1vcT73qvz2OdlyvEb+ TWE3tLPIeRbPXLPMi/2vbWNZGsjPAxX8aUFQBRLOmJDllHegOqnsPDNVsS/gOf8B/4AAKDdG83PPw7Cc cRy5/9ZUc2eDC/lDv8Z2A7HY7DJX/N7/Zloi5C44pn 2eanrbh8+/AMP1bA0MrgvtP0Ph5nf/UszGL6q+Uk7fs9ellaPA8uqtH4IOj5F2a4fclhjOqOmQswi8B7 F9e1tvaiuWsewPogy+M5P8831oyeuxwcoHnuh+Y7D4540prxbxwFqLsjy5A6Q2514wrlxwdKkVflk05h t3nuNs/l2hbpUPsz412m7D9vr43uy1duka+7GvtYcK t8Hrg22/s1c65ikH74/Y8/u/w52vtmu+iT35YV75Dp+AK+gH8/bT3a019y4DnD7Pk6hgKQ5Fg2Gs5AY+ An+Al+rB01IpOI3SQdIQrz2aqKhRvf6aDbbbBY+AC6qFsFAvImMr7RjZo8BiVo9VRQa6RKWq5U2aJ7G/ B+U99ekNmvnWnU9yT2Z+UkaCiA7yE1H+Aaz7hAz23X E/wEH/KKoGnt82O0CwuV6iymPcovrPtrj0Utg1sIoB6oOrA4yBjW9iBvDA9ZoOjPfS/Bn+DPw/frwjH4 Gj5Ux9kZn5d3ZCWST/LB2WdggdFfvNaftKagt2Zeg2tHpK1tHgRToCxLOuDiLL7Q3RF6Mp6KO/IG5A3I C0K3VJ9F2bZ4JSaH/SoMbqY2VlKnY/050Z8T/TnRnx QoWhRXtFdBJxRtAl6NwKa7G/Hp9C8Ge7F48D7T0igpniUvt/D1q+e6c0SSoYN8eAiNchHfBz0GdDQ2J/ YD5G1CO0T0BW7T6jb9W+E5J/zs5SpkgMQ9Nn7ImIqhmVA1Vt5ZmRqnpLM9Du4AdCyaiCG5Qc1WuTao96 T7nXi/26dtvX0/vvcKPccCvoB/5X89GD4OF/wBvqEd LqaItyFfuRsJTuYp6JjzVaSumE/mB1NyVfbuzS3ubU9GHPqEz9D/wD/vV+T0YqOQ37AHcMGzF0KT3Uvz GFaO2XO42ncyAC/wBXwBH+9F0F2N10mdxfCvHyZBeMzGB/F+Mc0A2M9K15fpp8OhgvmKqKybEtPAT70Z 2siy4HvvB9xDd9y/6/iWt/i2ji5kV6x6tSrdhfrWd0 d7PbGpai+/3D4WU8f8zD9S/YK0rrAN8388fyboPkO0LTy+7XV3Gb5v32r3dKBkD7fGqwas3JcO62JER6 ZD7W/3SuY/4YIeTQVs3Rs1NM2NJ+AX+Nt7sEK8ttgbpCA05H8++Dm+5d3Ji/3yW11QpT/F47dIw2o91W 4dVSkDpaI12holk1y3Iau/a10t4hC/wS/wz/dIfaL9 mj8u0bY31jffvR9W8kP1uvRU25N/142zP0yZ0Fl3TbOuEmytuycbhBVgK9VC6Xe1Zz/jNzB+w006frx9 9BN86Iz4XGuwF1xs+1lzgD+FEjl29iwV2qXddRV24We20pL3tN/XEQ04KnQkhWkQ91tOI41pA02Xijld ni7VsimUiwygzv/28UveK/r8pQ5DL1/70rnIL3/7ap 6pk5cfZYk3tgXgUM/b5lJoqg00d3ZMDn8RinVR6rMm9lE6KT4CT460XxlOybLb/K5L57TuogRVmcH5ib wr7+Ew1kqc04Q7TTB+J+amkhhzIz7z4uTsK8wmerz2iOC0Ql4h2xOye6mwFSnYVmTltZaxr5nfOjSFt5 A/wD/eprHsq+N4tdxcm/tkgX9G6BthtkR1rkL3Ek5E fx6+vVJ81EL/hAxFnkf3VEKV4De3V1iX21B03G51LA/yCuSVBL/AL/An+Ge+Vzto11Qwqxdh7Ui4M97p iP0W5NxK+7aacO24W5G5KytrZD/t46c/Ji53oCv6qr6R/AL/9Oeh6M/Lvhp9/IzrseyreyyPZV/1sYKv 4I9n/hnLvupjA9/Ad/QtvEJ9JwgNv/3634J1W3/41z q+5d3H4E/w5+Hf9tU1+/ien/M+vufnfQy+PvP5vR/mOR7gD/ANfAPf7/l/tel+jgP8AD/BT/Qs3o3Gq8 6OJ/jz8G/7qq+99wk3kR2F1+6X5/iWN/rYz/FSg7Ii6Jm7ay3rbc/6kYTg4Qp0lfpjAMtBW1Jrxh+QNy FkKBc8q6CLpg8fA6q17YyCh5t3n+xPwq4Nc5v89N6W P04/X/IEYow5jlewpx/5JujXdq2a8CvIt72t1fp2Sna2Am1Gf+8R/FcD/quR5//+yPN/f6SD7+AH+Neetu AOopsWQV25b9DbeBy/KAYE+f//qjzf3/UBb6AL+Ar+Ar+sZ9H+6/CeUOy0Aq5hZnzsgU2jCvh/U47kwti 38L3t/D9nfj+Tnx/J+Sd5//tdHycAbA0xFo+qzHxfi ia09F5lWA9Pg8ZpDtWo/cL/9WA/3jJejQav7Nm/N+02fKadTirETeAv5D/sWppELaA39WW9MA3CW/BL/ AL/Ak+8CMRQ6BU0iVFxnYNBnh3zhBlXgkrv5DS2xAj+pzS74eiUUk8my24hm1V4sazYu8/IIgdfK5Scd tglkyhb21IzxS/9Gmi0mR+PvfV83/BdOB8w/kGvoMP eWFfmULetq/2COaNh2KpgP4li6Fa6jtkj544zqjZOcR+gq/gD/Uzjla769R/HujPA/6C5VELdZGVUyVF B22gPw/054H+UGLjSx9W3T3F/nnVnjLeDJTIPmRLI4xSFY89aZnRakqnm1/VxwF+gJ/gJ/iQF/FBQ3zQ BJ66fDsC1UYFxKL5Dce185u+JudgTN9y0plrYWL16C OvUPg1Drjf9drrnden4R+O/tz+qz4+vVkjQF3ry9HnOGb3k2ITm/iKpS8P0VB+EyxC8N5R/FeG+KAhPm bMHjpvdfO5h3C0h/kqRQ4avU9u0wWT+KAhPmiJ/pjvn5OzIHuDPX6q6W0K5FlJfRGizvxVzHwV+KAhPm sSOzawh4r8kTF1r+V8UlyqMnexPzwWHawfr1f1eCR+ nAMoyHuOue3nbY/N+/iWtxb/zxsTw6tlK2/4c53/knf54e+9Hs/rjLovbIqH5N1p2P0v5M5o2Jx/5FXt Y/XM2krvIkk+a598i956cNL8Egz88V/m2uQW24dGO42jB80o3lI33/IQimp6uzp+R/C2kaxdx/y6wBfw TZmRI0Goo/fUr/K49guPB/FLr23z06/zZV/1OYHzE/ gD6YjRS/OVw75y+K8c/iuH/3mFjNemBpfonh2qq0dgr2Xu41TxT+sk6mfCn+XLvurzA+0k+InzC+0U+B P8M1+1Ln4UlHMjJsqLghd+gn/Gr8N/1Fza27C+g+/gB9o5/iuH/8r1+FTvdn4puJ78j0+arEk5VX08L+ /1V/c5WH/wqF673Qnr3q561uP84Yfb6f6o17lyA2K2 IaP98/d+jOfYwb/9G/e+oHszxsNf/re4lOpL512B8onz07XeTgcmg/beF1wtfBinf9625cvbE/uyr/p4 EN4UvKl6ziuZZ/uqj+/32+gq51ugmy69z6/KEi4rSztqOzjBE9uY4P//Drvhl4C3Xj/Al/S4u81dwwdn 48CkcxPWX6aMueo5Lj1aA8WTCyLAH0rEZtJ5hH0c/v FKSwfmJ9rUgN319S9BD6TDLo4nQY2LQzGnPLuGnkCOAk03gqJfEkgox34wfE1k7kLbBdiJZ0ybm3WgHt /AF/AxXyE+6In32/HBxUd/TvTnZV/tY/OZh7i4bjv2ka/2XutIjsnhVKWn0iiVg/htk49lpJmPh4zO+A q+gj/TtEMnsz286L99LX2//JOLv/yT6/ier2Yf+zm+ /aYmCLe9Y/u4wC/wJ/r9R9nTrwA17w/9GT0h03uFaJ2/+i728hoCY7Pq7Et45/rm842N240gecjFy9qS wCqvT30GD1Ja/vY+9nN8y+urzVve+/lrOSNReReyNMyZL4Gw0X/wDXwD/9hF7mkb8pKy134JBX91xs2c +Al+gV/g3/Rv84s42fu+vu2ra/Vrs5VNG885hiMxMC rfQro5O9cWO7CBQHqUZyyU294BiQ+ipcH4jvPrq6/Pdz/m0IeP143R2pXi++rqYz/KHu790j0ZkaHZeD /jN/LJ88DHNmp29cXPZ0/Fo0rpIq5z/aXxNcg3qL6HObPP/An++f7GON/i4Qig3u9xs/EfqaqrAfrm3N nube1Ap7A+sR1E27IV5OY4vE7A2a23QItx/Y0xwT// j8LO/6OwC/wT3w87/xuxiZxXk7bK+xh8A9/Ol6ufsW7h9qX/czt3tU3IkO9S5sEVaqnQSnH7VnTgtvQ5 uoKv4A/wB/y93uhra/kNwHnr2O48rM/fD5cY03TCDo5V4fXmtB5+7Sz7ah+Dr+Ar+MnSqq2yeJwnm6Iw eKbEqDRfUiGVgJUK3egsGlwJ+VGjpt0VYuhy8N4Mx+ aUyc9neRuxt4IkwVoRceXNQdP5rK/LxPXPw2EgFfKUsA5K6FyT+yrqAl/AF/Jnf1EdbxzMgEwzJH4/C1 Hn/5QRcc0CUiq/Cqy/yaM3viZ5I/ed4J/1ZrFgcsrRB2DbjiD2cKs/E+N1EghVyL+ qJ+Xni/Z575ws4C/oz1l/FPPHumKc/24M6m83F+AK+ gH/snhbQd1bFw2Kz9Ps3Mq49jzg/VcJ/lVfi/JH5LI7SV6Y//btIwauiwRq0OM/AV/AV/AH+AN/AP/72 FMgr5/2mBPgB/vm/r0dWcoG1Vz3F/3x/U8/3N/NXI5VQ5MO9SD+XG7X53QYrNgiFcrNs5LH7fu3Y5OoD +asJP6sBGxAjgEvSj6JuFMaT5Z8Lk0O/D/Rn2FcJ+y zjBgPax0O7fnJcqzXoAKzS6F9Lb4K/j/Q4ZValZtyKdgMz7AY9GeCq/Ikq0X3U179I94b3ZYO+mHb8sb wav8f1zzwqH9/sOl7+1VNR2xvtox/trOdPP+v504+/Zq7222AR/SnXE2vZT0PT/DexfzAd/Rn+q3S8Xz /f3/DnCZbXK3wiq/ubmMu+kl6a6FKi6aY3B/x5+Mu+ 2sfgC/gC/svp business development/FOvYz/EAf4C//Bjv0cKvhBu+zVzqu6yZJgr7ItTmVHb8D8XiFVa/D6a7Bst4XoObAmak TMzPWH+VWH+VifkZ/qtMvN/E+79708Sss+9R4nsE+aexH4Xo/IpmPWojvNrR95BC91tuTBr9bqzh8ei2 b6zow6BYjv69//jrso6/LrG+FqgHIhihFwr9Nucxww 51NlhjU5ch7N4/LwlJrcS9JkYz17INL5yyPv/LLEpkv3GKcS/yOHXv7SZ8/Ff7+IGzco7Y3e/aODP0sJ e+u5bRKlhI91vdMn7gmNscizBs5pz6KmE+eruJc0Sg+7mu45+s6/js9lffr70I64//jgfJ9Wcx6+Cf91 vX6c8F+7zgPeDai1T4JrTa2naxn1ObVPtBsYM47ba/ Kjn/F0oU5w/wB/gLYmJUvRcJRzV4IG/yyokvFNZfFdZflUzwIS/VR2Fi5Ka74uvC+qvC+qtSBX+A tG+2c7Yg7WN6Gq5a1RoFnWAxtvc5QhM/IkKwZhlBNR6lAEqOL2TG4JjjQcG6oAb2Wx4Kk/k2ozunpDz+ 4vxEOwV+gT/BP9/ifpX5DotQQ/AF/RZ8LLfm7pJN92 VfyTr/lvda/NiwBeZz0ux2fe5Q40uddx0h9+RRW5Da2J6/2Z4yhgA+fR/79t+Wn/2Y2vat32OJIlxajB fwB/j3/Fe0cUsbe0/H4N/yxjp/+Z/ViLAs6Ug8Jc6us746z3o3+KznLz/r+Wutb9/B1Hq4Tt8Ct+AP8A x1vs6yxj/3PsYAhEfCTvJwqS2eD34u0eL+hrwBeQPy LrZKsYh0u6c6B4VI+Aq+gj/Tw2g649Z0hq1w8jC2njYbv/6Z6M+J/qdjmbGGod55bhwjl/Yx+MS0dzjJ ftlYP8rsUvbFD0ks/KoMKm5U9go/VHX+Xra2Q9YBa+e126dwRVX4UGB6ri4//arzf7+Sh1VKo5BDl3FT 4nS57kQuO0DAb78b9tw41kh6p99W+RS0Bp2Bx+CfeH chP0P1/bI5n6Q4V/eNd9RatYRB/ol3z+vE9+m91gSK93bOwcpSwmQbTF/MD1ogzW83zv0K2rsqliOW/M WaSdrM6Zd6Lz+WE8qbas2lkqvJ+aqI0t8I62kq6waUYv19afg/Uwx8A9/Bd/AD/AAf8mL/4MT+wYn9gx P+qwn/1YT/asJ/NeG/mvBfTfivJvxXE/6rCf/VhP9q im300c+a8F9N+K8m/VmB314t5i0M6B+roxoZac4UQ/sHJ+iwTouxvkQPudR4E9N+5ikZUiYgsKoEpqm6 qUzgi8kB4p4Fhf/4nVh/NUeBX+VX4qU80gqA8d6pZT/igxP+qwn/1YT/asJ/NeG/mmbg+3lOO/tDpwX4 UG7ParIg/hyeufW6Sy/15sPjUi5F0Z+xvn0i/9V0jF /H+EX+qwn/1YT/pec5A2b2F+S/msh/NZH/ajrkdciL/RaH074z4heVtD+fWH81A/DjuN6XW80/hRl4v4 H3G3i/PiF77MA+A/05HPzA+IP8KU5J3pN9MfShhTzPnFSmRp/AHV6IphwRA+uvJvYPzjzrzSbWt0+sb5 9Y3z6R/2oi/9VE/quJ/GxV47hn4jgD7PaMlrgwX/sH J/YPTuwfnNg/OLF/cGL/4MT+tMq9s5YA+AN8A9/Ad/Ad/AA/wE/wE3zIC//IEWfslRed0oQpascubcf9 Oz7lbCG7Sc1BbwE/cGL/4MT+wQn/1cT+sZc2uyJ9FrbGu9/xU9shmunvvsc47rTt2egEP2FAJDsq9vj/ T1r8eJCM3ZjshMdhdfaVgOxFInDhFgcnMlooVqOBJE BOWItrA7LEbJaTPQq1bPI3tXnYHiF5SyCEoQFW5VlgdQhpZUmYrfCdS7kOs2FEB0hUe5fdEQUBzZR0hm S0Gzf4GWlxh+25h8A9PZaxd+64ugFla+CsdygkJuuJcAq6PXGBisfu5IIyeA1Z4CjDQh165eugNvEwho 3psw2X64SlNZbHrtFsBDwNDHN6ZGeahMljg2t9RH6N fMsV8GQVh+CYai/GOLHgYF8XjoVoAdUJnGZWPek/U4RCBAKEiTiyGmBGnESixjx9ws9w8Z+M/GTYx2bl 5QrsBY3WMepNfMnlaIvdx7JdBZ9yAmv5gls9BTuJLWVLYYBAAsopxxo0lMm1OHIZpgImCHNcj0IcjZ6v s36ULCB3wj6SkBo1cXyRZ4YCSb52Z9YP94bzrsc848 QKUEYTL+Rh0atN2in0QYqAhZXzcLsc0bJ79yGdJyZ0ZAVgoIsVxnd/QQ5StzubJ3ldtezWDhzFUXYi0g AhrmUqIEgZGKw2Kcg7Vtctx47TnT+K50XP9KkJP2y9QSaANVlidQIW4nAnRPJ5UQTxsPPnO4XqLnLG6Z L71ccSDM8sgHqyNVW3SOoJPNzCqu4RXlztne3WuPDT gjOORjsACjMQ2cQYg35RASJIkB8kT8/tJ0COPAdWbuuR1aOKpQlXQV40K1iEN3CmetE4vH0Jfh7MpHuC TFHEhP3grpGo5n+AILUWfN8xfSh7NVICTlayVSOGEKLtL7C0sTCGCActbA2PkE3Ke9dPdOjANOrLrWVM z844F0h7Ee1KMHdMEvGMNCOEDj6C563w1xNxSU4SFU LIWawina1+F3VPRSXFRuAvmolB5y+BH2G5IHR/rGn4k2twDw7PmBdLVCfpS2+PoRY6ukKqrfce2nm/RB JsVkXCXGXGEB4zvDWLUBnpZELvHs2erwg/dKXbFx6XpfqWKvkEynfpMpRloP+IIlJEqINBHdjZqPQiHA Q4OTYOJWlkoZ3wKFlDVCHdmVTePnMD4yEZn18Rusah EoXjko0AlrFKkc5DnWDuYyNAlpZVgEhHAkNao6Bc/bVp5323wnify2wKcZUKEw/9JoJIEEkiydbwf+GT 7PefpL//TOO+9MAG+MAN+f7XFTQOUisXJ9Kv9+cB2ZddL/taDyFvwcNFEWZuZvoUJC52n4hVJDtQ6BCCz [file] 799edf/jxs1d2dz8484ymbW0t0++Tlh315+N3nv/qJ XZ846iNxS3/42lbh5gT1f7++/u13b//w7edf/v6Lz7/98qvP/5tzXx/g87vgfRcvy2//1dfeBdx7/c37 Q/zq7cMX//BaiI7krr/36PPiV7/8+kinga/vhy7d/+tyfJ17PsC2ne31BcQki6Mm/jzBM9nVn5sql5a65 6p++/wfa5cXn1yq3C161+df/6JCrWb5/7u0fv/nt11 /+N1e+zIPXlV/85c///se//wqCg792m//99rs//ulP3//1rz98/6e/e/vy+z//8Yc/lg1a81z895++/e XPb/YLrV/gu1ZvFvkxOR4j//q/aPPeVHS/T//xx1/5Z406Gb0b6lj77++Bl1ipvDt018p/B+htVj/o/P ma09n14qCs99g36owqhoki/5rPq2b6/XO3jJM3dF/e e+ws8AP58yMuKnd9+8O///OgkMt9Vmd8y7nb27//8j00p96/6vefSDs+ueoo+Z1ar2Kvj6J29w50/PS9 f/oSwYckTXxpU2Exo4Gi0/3w5//8+7e/fv+fP3zS+ddu017ii0pi1BGv4b16qOC/0/oGf/Pt2x///J8/ /PX/+C5Tv7si1cq2+xHeh4y8vnd1qr355+/e/u1/vT /7H//x9622b0kI+4oux4kK++ePv/jnj3/uq08PNn4sl20mK8+0fj/ojcabaosMuec0lzwe/i8LknAULe 7j5iftsc0wxd++ff///vAf/3XkPO/tkp9/88XHn9+L5P/1b96/A//7r//7zy28q9+Hf/zhx+//9Mkbnp /gX3z/v/7w/X/88fs//6SFrevwP/2VcXT60F/+8uNn isy6tpK7UE/6yx8+v57h8ihQOM1ctW/84Q//15//+If3B/cn7Rmolef6c1/fp+PPf3L+EA5wne3x//ne s/7ts/96x/s0c9k9co9trTrGM+56Ef//p7z+svva4ty2j+//4q4h3gdNb4/rS17opJqgLuqgVBtcN4sz h/gacsrTQ465tk7r23+b1pmfv/n2yw/fvg/s5/f5F1 +7a3mw194ldQbAizvl/C8HAI681ppleyBdpQNlJK7AKG0mv1KuPdF6WIYpb2ZvYKmtYFe1bUMtMYrgjs Awz1RkpqttO8Mip2HpNkHiXVJzBqGnQkx1OXAaFpG1zBDsXwAhETZsG3SmGUJfOrS5BrWqCINJWC0BIN JlbnQgMiAwIFI+IfQyOV7yvlitUDFqz2AgIKqoKBfa XAEhJ4S1pCimFZHgD0PseL04MBCeE9VgplN6KHK5ZSVcTwGiFAOasBTfFRMmYIW+KwXgML7wmitgUWEr j7EkVNmkGCU4gQ9ePXgFDFDHHHhACBjsKlI7j47rcdBYWPRgQHCpYK4DxpJzqNfpcgKekYQcVAV4StCo XYR2OaglZGR1YNQUWAIjEOHzKYLlKEJtJ4UmjWecLF tWIHSHXOiLKPefOfUvk5F8FVUryuIEECFBS77eYGyMHaCOVNrxCWB0DNPrVTqyN4T7MzkaS3ZxJL9LM5 XtFJAdEXCDGXUtkxAkWZ9YhoZbpW4wALvCBBWIVSgDXEpmXcO1o48obbWWJBViOTQoMNooTAYwWZGmRI KaOMEwQOFuVZGjQLBwZN2AP1YdKXWdPRQIIHN6i2Nc OLUmqnyyajkmDt2abeKiLeo+IbhwQTHdj5IeDMvuB9N1tEAiH8QlB7ZiPM6ZsRAzWDliJLJwQZFtIETr P271ocKqTO4+ON7vd9TlFxvcTFBHWMMgGQZuMXAvVCP4IzXoFMPmDTHeDOMfUcE9MuWsPeWONRHmQPN4 NSawRfWzVBZeITOhCAfnVXWhPIVcJYe6HLRzYZAwRT 6xNgJsWSGpFfG7HeHgSZZwCSBqkhEJAVErYATvEYPmZTG6RBUaKOUaATrqWTQeKUPuCBK1XTLvGVXzHY 0cXaVsAOEsGJQaXomgLTIeOLMwjtGORDYhCKHaGSG8JlHtTZXlKAPcXNazKWErZNLwOxh6BJPgEQNaHP 1tOwLnTRAbZIM3LExzCKKvTYVgifKIYZQvJVUoBJCp BaBfOGSuWNWcJYcbKBLuRZDkQvClPEXrPLBbSS3zPgOfLTMzRRO2GLFzPMZaPCFahuPQFMLdDORkWLg2 IAYpHELgKVPkIEeoRUEoVBSiNKP1RTLrFCIwDJ8jDhHvFRKnEYJwMGCuDHGyNPOgwfDFBIKpNMXrXEK6 AZBwMGMtPHJpLDeuKZIkNIWcKsx3OLXhOHZvRI1yAy ArMXOvQJU7JXXbKGUoUKZtpoSZZXIhNFV2YJY4GxZtABVrFHUkDPnqBEZzQPGlJpP3PCRjOXRiGC9dAw DzMZClJFE1DzNtLPWzUTTmyyRJYTMeEXToUVV2OvDrMISrSKIsGAshWOFaSWDpZOMmEMO9WZS2EEVtZl DnGEvaOABRJAqCV3VrpaIxAkIIM8pgNa2zZlAbOKTL X2Smq3TdMEFpIMCBHo9+KdQ1AVT9pEBfEut1PJy0NPyiXQJSXh== ID Date Data Source [id number] 09/19/2020 08:33:[address] 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 mechanic+0xwGmFSkT8TvNbgQ3kK/sLvy6atq+YMiv3VYbo [file] 7cQdj+[id number] 1Huog6xhXuYGSfQyx5124FbklEq6x637RbxjK45+WxnrjTNWMFyw18RevhjaiQV4O7oP1HTmHILbqjOt oQavfMcGNMFz0q7wtrjAYZjXkbTCxVGJWfP1c9z507jcAPg99VPNdBeHbsbUqjkgU6FlwROj3DMQCBbR G9J2xRclOToLvoyjmQluOCj0GVe/WEKv8BYz1Hj3UF p7FTo7GOMCSvYVz1kUZyfFe8IbFiYKKy3pzp/ZtFtbQt14TJ8oj+FHZFkJXIM0nYjHUjBPUV2CRWi+[place] LnnKwKPdrKLnEc1B1XjJvOxBjrRw1TFMMO/lCkGm/OdzwJVarUz2L0oAw6HAeIaosedjjEkatQCsP/mx WIPT0PEFLGPF4YWeRrzSy9UaWA7v89IaTEDr9aCYM3 bGepsrM5rXW2wD8b91gbm9apu0rwcapEs3I3NqcMKdnsmgIJrEcKG1OFaVHi4R+LFIhx+L2CzmGtTtsZ CJVWIcH9OhWvQM7SGnn+EIXpU8zaC+UeHHIgo/VistJX2TmnAKjFv1nSaIQCCYAyvPCrbU8nVQzhVitO EQvPmCRA4gXozOmijCOHFibBbSCHOpnZlAaNQARqwv mSQzyGAPhsKPRRR+JDBmKcNQT8ga/ExW9vlbKj0QJvzPRfCUXTwOQGjpQYnzWjpBOLpzb3CLVezcGvpm OoAfi+d5BJfZUjZrr+tjtPtTZTBWz0vjiUoZNNBGghRlIvpAVnyZna9k9BeEoiN6cdaHuWWOGp5frG9Q +NwQzjvmtAQ8oLA0woD7LVlEMDzpLUhaWCzxQ2cAyD gQw1wlgEhjhHxxwLpY9GL46ubDP/BjEeX+cB1P5UAPTMf0NMQPWHxbi1OPXaoW9/SQgsRxlsGZaOlf6c WnS5pXOaaBgWyd2a55bXo3w3hrDDVSWsQayUOQVXfxIRcWtESo/kTl/kTl/kTl/sQdj+BHsDaGSku32D lyaEt9MWKJGEmXYSH0FCRDKBlGWJRloOAJYAsLMt7J QiHPUTLaKO75TZicTX3i77aJK5keIQVBPR+MxVhpcS2RLQUPl1UihSYrI6qaAr0LNqfgBbYBte6ZsmCC FY/hFjTMuTZfmTwYUSJNmbm1LMjJBTYGsfOICqDzsMRh/oDNd8JKoIHokVLPhPxGFkfIPOCGw4eeh2ye r6uqb5bxbBfyuCQSFEQ1xyDeIXCp+vAXx6Gd3Y6Jws gdrvzbBJdISz7R5mjcQGD/yxf8khSbCz9TipSYHR/rWI0WHAvnex0B4UzWI3U2OLXHti2qS4M/84rHcg Y6Y595PJjllqEk2w+AKx7L/fIf9ZfRzGdWx+Uu5U3UYq2Y9pEh8B5e6F0p0X+44rHcovHvvOKxXCHJJE sbvE+cYYAqDbrHLS05yvAA7GZh7JsXr/xGTL7O5lHu pQGqXILRAZe1V289PZyGRvFngUDUOYaSXnfZ3PYUtfVYuQ1g+T8GwSEd4k0CGQCmJGzSneboFbbUUBv0 YlCHCUfOlbVzS1MzSan+DvJCEezJAcFOCVb0RneBJ0WHZpAYOaTCMB8AcPLt8nzNVo5nbZoulkidk3GZ tYiywLfgS3DmiCXjDR6++bGcPNivvOKxnDxrPvEIDf NmfydbyvQtxJMzlWKcCVYQhP5x3hgxCaoU57SGepZtu/KZk6VBztyPDy1TFlA7LCW0QFwdDEOT2HI80d YnCr23hKBBMkLdYkAYM9JxTA3mL9t4GAqqk5C+gcXMaDCkVDsLCkGmcMIaPLyux8dx64KkD72ITZKA8H ESH4dX1T3e+L7EynpD56RkV63Y+C2UimDdM7usc6CO YEuFilX5SLuU3xFLAylYwPLdx2/DJ5vYx3DP18DuViqmW0MgMYzCZ0XaBzaQU6NZg5CyhTLmNqiEEDyV GebXj3UCOf9O0RKe8AxkKE1RafIWK8jVBblKLoHP5hJjuLRGfav267NOKNJn32/4gErf79llqjc15p7w //t72aFJf0/5709et0nxt6/LtdW6jv/tw3ff/vrr// Z89Qjuu/Htx3/NukRC42xqeu2+qomAiwpVuOvG3mE8unFMSktll5+1mXXh3jx58pDq4lp6o9/ehI0a61 79r2+//f0262551bPgfj7+5aAbM795++3XX/0u4kxargngl/7s4ze/+vDFb9/m8c021S+/+/Lrj2/ffP zumy8//u7DVz+e9YubtBM9uoQ6Ewm42rFl1mszv/vt 2y+++fDFv37+6Morkhgwb9n62WE+Xfv1r7/+9jcfP//yv375+dt3b//tw+8+ix32xpu/fn+uq17d8U+Q pgWP7z9236p44Df/fr/Vx8//r2/oDxdmf1jldwiWJv6/rdjpjbOR4Srw/vzvP/71Tz/84e2//6zi3789 4x+//+tff/j+j//l7Yvv//tyT598+7d/bPlv//T2lz +/3b5mkp70l5/1/da537ph/SddTJeg+TbsT3/6+e8142Tu7Lx951/7Ufdp9t/o9v457g7KZ38yr94/fv 61eQ0eYYDXju9KoJ9j+2wyV1po6NtmvO8ljILB27zh3/RGip1IQ74Lteqf4111K0YIQ4+1mg5te8liu/ jl27ef//LDV5+8mXnGTuUqJf/ivK0nxbYSsKIthIiZ Q01FOs8gCim7KLAwK95kmv/8+e///PbX7//+wyelv3+83tZRNq+L/tU3GDOvwmkJDh/kb755+/HPf//h r//La9k5TepM00zPq5m/XOZPSz/dz8on9gfu/tf7s//4lz//zSd0GPqSrh5SJF6novf2u0t6l28w0Va0 1fy5av+m1XiE78oG5RB+8vCXUyp+FuJR2xucz7icip oQm222+/7//eFv/2vv9Gr9iH/9+tEvksc9dY/tW31H8q/x13/0s55oml1Bs/3hT9//1DB9TJ3xU//+f/ 3++7/9+N7ew2AH5qEpwv6wd8x++ctf/vTZL3v+5IJToa/+2nkKnHRu0LOjrdb/8d/98Pv/+ecff//+AJ +7tc3Vs744/Ex6MY8rm+tnbI11/d/+/t6y/vDZb/72 H7//nz9+//e//vj7t1/98Icff//9H98+/+MP3//1+z///of//OelUn0l++jcvQ9f8OydIU7svG//S14/ XUGSa6j7hyz/87n50ahGd2/65SXv1zdMGW++Dym1KSb2+J5+/55+/LO631BwADz+KanX1PszmSWmb6/e Zugle/2CdMe618//7rh8k08xJQ/tV2tXv/8gNpZ3KD huabTuhJDaGI6TWW8uv8RcIxW6RHYfk2JfKWusXCq2zVTmSUtqvuHbp9SdjcxzF4Sbs1OeDbUvYCAxJx ZvYbx5LIPcQoW4rDZvMiAdEBMvA7ZoSJOkWlS0FyZtOVCFVO1YXGMiywTlTuPeASH+ZnYyEE0yjvwpPD Fvw3TpRZdrDYniXTCoT9O6oIazDUCmX8DubV31CNWl I5UncsG0VTS9CNBqDkSxHJVafNJkIZHgCRA+VrJsCZ3ullriVDRru8GnGOzoFRX7oF8bMMzDWPXMZCfU PHfjUgL3o92jukKUOCSvJXDcNW1CfsRnyHpbcoDkxGHyQYD0VpQkJIX7QofiOME3JEVEXQXxFOXfQNEx HQLgH0KfjAypRDxHNTFNTCnLVTwvUoQkt3W8MFVvst FXFCEAX31pHCiFWqVWWZhyLQN5VIAyQEtnT5O9IwkrB9EbSM5DS1FgWNNbLYGYFPFofnCrDM1XnvSyoC 9vWJuMVJDTQSfOKJccXmB9h55ljzHTLNXwCGCfDRshIWHeGHDmSDRgITKhDEUdDDFjBJNoFH3SH8RlRE XkWSJICBZ4y2WmYLTitdrfjtfmMv9oraTlEep+Pgox DVWys9LhJMyhO2V7lSCdD3IwA6ZnOV9QpHXcIJofCYFbXUKcFQJoU172unKmSZ2+SB6vq5DjCskpBUYW GZEbEBPnHHUgEBQ9ArIaNRJgBFSyXZJrCeY7SpIhStCSAGCiVFM1QZxtKRZmETPtANQcWGjcZAGsMUPo OKm4QEDwXZLdMJ6jFuBfUNSeZgA5VSEaNPSrFLKglv ZSQWUrTDMqQBUqLDJ7DXVzDZLlRIyeMWDgOCWfRUC7ACDgQUJnVV6rRmMpMFXsQAIyJwksGSAyAZWukw HZTRWrDAPwMGU0XvCcYDPzKRTyPKjdVFFkXJRfWew3BOTbHTNwKY9iKrKzXMIlXJC8QYqfOKYuAKPrvl AKMDAwMDAwMDUyMyAwMDAwMCBuIAowMDAwMDAwNjQx CPPvFDWuDU4jDnHyYYFxCWD0MZCySOQmDABrpbWDIEReASCsOOa0ZZZiKMGiHXUmDJbcSKFdNWOgEEH1 NUOzSDLdWV6fEeRkQFUiXFOeYQRcLLHrBXUboiYDHPTrWXBlDSG1FYRlKBVjPMNwRNbqFWHyMBXhBre8 GLMiSWWrQV7vIvEzTLJiEZQ8BEThTSUzVYSykxSNGC YjNSZ6YZV7INVcAFYaEKSrZTpjIRVgOYPrMkI6XBVyUSNyAC2zSdGjPQUjVPI4KjHjVGGpKNSlyzATGJ SiOROiEWX8HeUaWXFyBIZmGPkxKXUhLHPuPUGuYZF5PFO3XZRpRvCaNFbqSKXHRPxLE2MeyxDaMbHEL1 baKc0lRhZdCDTFX5Clk6FyLMIaYDIACm7+VrQ5AQL4uJIsGul4EVe4JpauOYABUp== ID Date Data Source [id number] 09/19/2020 06:28:[address] [facility] Name Value Range Interpretation Code Description Data Catrachita rce(s) Supporting Document(s) History and Physical [facility] TSOYGd3rXoSRCsGo42/YYWtrBPMqu5WbHKfkEHn0SFqjMDGvB5QpJTB0cC2cMUZ9KJiXPoCoCsTdZAQ7 lbm [file] XqHV0NOx6FMfD8JYV6jEFtSn1PUbRnHaOEQzNqSK6PJXo= ID Date Data Source [id number] 09/18/2020 06:19:[address] 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+frS1Zkc6tr63XjUg+w98d7 [file] ICAgICAgICAgICAgICAgICAgICAgICAgICAgICAgIC EdVERuCZAbMJEmKK0YPMTqOQPyFAOiZKSuLLWdMNAgPOXgKCGeBHJtTDKkXXLeSXOhSVHlHEUeTYBkCU DaFPJbVTZiMTJaNPDmQNKaTVQaECXzDLLeLCBiVEFjJEUlUFIcQWQkPZRiSGPcLDGhAVFpHU9XLPFzRE AgICAgICAgICAgICAgICAgICAgICAgICAgICAgICAg ICAgICAgICAgICAgICAgICAgICAgICAgICAgICAgICAgICAgICAgICAgICAgICAgICAgICAgICAgICAg DZKzDL7TWIHvQUQePNMsYFRdDTSvGLVhWKMtCGGjBREiXKKsAACaMJGbZRByAUMsGQNsCKJdZIJoYJBr ICAgICAgICAgICAgICAgICAgICAgICAgICAgICAgIC UuZOQvQZPqHQJpJPVlFB7BMQQaQMPuQPMvJTBxALGyWGOaLGHwXYXaKPZkTSSeVHQuBYVyOJMiXSVeOD HtCOQpGICyYAPlKWBePTRbPKCqRSSjYRUeSJRgEDPyAWZgKPWaZFAqRNSiMLYzIYYfTCKqUHTjUW7DBR AgICAgICAgICAgICAgICAgICAgICAgICAgICAgICAg ICAgICAgICAgICAgICAgICAgICAgICAgICAgICAgICAgICAgICAgICAgICAgICAgICAgICAgICAgICAg UMAfTVKtVR8OFDAcIGWsUFWtTNImRATeBFTaNQBqNHZkHIQnUHDbLJMzVDDmTHWcSBGyOBNaWWAgNVJk ICAgICAgICAgICAgICAgICAgICAgICAgICAgICAgIC SeEPOuGHZjNWBjNBGnKGRbKE1HNMLdXIAbXILiWAUnSTNkDFTrYKIbUZPfJIJoWDRdUCUvMXSoSDCyUM AgICAgICAgICAgICAgICAgICAgICAgICAgICAgICAgICAgICAgICAgICAgICAgICAgICAgICAgICAgIA 0KICAgICAgICAgICAgICAgICAgICAgICAgICAgICAg ICAgICAgICAgICAgICAgICAgICAgICAgICAgICAgICAgICAgICAgICAgICAgICAgICAgICAgICAgICAg SHWgSDAzCFJvTD6ACGJdQSScFGCgKEWnXIMzUVHmRFPfAOIlHGSjXGWaDCCmVGKrYLHmFRMvCPWvFQJa ICAgICAgICAgICAgICAgICAgICAgICAgICAgICAgIC XvZOGvGGThWEFzHQLpFVJzXVPuKL7AXG42gJTln3G9SPPpKV6spyx/Jw9AWIbkbnCkyXTeLK8DOiOwWL 1nmd3VZqHaKE0dct6THJsFIgQrC4E0oFJtXPOrHTOZAjZjI37zUKheOj38RMibBDQqLjIwMKh1Sr7BUh QjX9gbZUFaFrT5DVWqBpJ6MANbGuJ0BJIoXyMuHPWe FXUfQXUcFHCSIMU7TVZxXpCgMxMiXSEnYXrnMTJBXXXuXPDmOhMtNAovWL5Wl9PwaJR3XUn+In0ZVN7f p9NjEDn3YGCiNW5ell8MWJnZIwJlJ0TgxvJ3ZMMlAPUxOa9RZMArJVOelFX7VKIwZVDNPfWmX9YbkU71 IDENCj4+YBqbwrJzOyeFNnIjIEZjg5LtALx6HW5OQC LvZRp8zRHvI77ca4TohDWmNncsMKoxrTNzkuDSAGcuhZCnSA9OXHT5CKFzWhqiXqSpABZbIHf2RsDFKI vRBjKrB7Apa2ZdNiU1RIGsEaHhNQdnVALzYlW2VM85mXpzNG0ZALZfZLWfTL88BSP8DAInNi0DZb4JQn TqZA5lvx0TYULdNAShTgxERvf3SZgwUN5LbNYbC1Ue bDZef4oZHaFbV1LQJEU0UHBuWc4HZWTrHlAzDIEfSUjvNB3iJAMlFQFOnUkjdwK7QO6ZPR1celQoGF8U SjIgNn2aFe7YLtOqM5UyI0EfNYNdCBONWXazHY7WZEbnRZ5kNR0Tr3QIzICvvC5han2DTEIyGSTfJqzg dd9LBfmoE3S7pHlnVJAnOImsDIHEYKbxPV3ODGNbGR H2PVS2YBZtKNUGTfMbK33qAE9PU0Iyl87lSzV4BVUzXxHfRBxhUV78oDbfryAirXSbrQthDV7EMi3+DQ eziiLhKmfJJdzpQMIAQfZzCTCBOaZuFCInUMNkNMLrBpM9QbWdHi6UZBVgTGEjJQWlFpIcTXPoHNGhAT cwCCHoGWB3Ecp3LCHkNGKmYI5RCjLyBMIpUNccFSXu OYHlHFTcxq1POCSaRTGnREI6YgJpIRIuGXYeUYizDCPfTCK3BwQpOFOwXNZyQX7LOaRsRMSkPHC7OJId WNLlPEFjqi8VMZCrPPXlZGS7OjInADCyMSEeIXpbVLMzLGM5CONaIIHmMMHzDB7XZrRaOULcZWVlUKVh TOKhJSPrxc9NNPOcIHPkGST0DNZaDTWtYSHnYDpjAQ QzVZB8JbIdTNUvJKDvJM5BToTlKEOuZJC6WKwoSIKfHBDzfo2FNSRlHIBwFmYrRCVvQNDbQVBoQYzgUX ElVRE8CnYxFQHlDALkUB9IAcSeSYKuLvRwWSmfYOKmKQBdmg3YSEZvBIFjINC5BSQkKHPwZZJqNDftDK YqYFN7TkMrMFHnMIFsKU5UOrPoSPYcSuM4LEBqCTCu UKQepx8XLQEiFYJyAAJ2AqNeXRFsSRBjFLitJNYiGEO5YZTyIAFrGEOtGE5UUvQiVLJbTpKfQMMaNGRe OECsue6HFJFiXFYmNPO5YbTwDFXhGLPtVTftWGVhXBTsZzI1XTXxTFDrMA8IAfNeBMOjPlK9KQGiMUPu OQXpdg5NEDSzUWYpYpLrYgRxQQZnCXQmJUpyEYQiVM GaQYc6QKGyYGLnCN2KUxCgEZReWdT2BVlhCHDnAJUguj3PEAWlPFIgRdl2MKBtVHImRMMqLYetYAZoAM X6RTN7SPClEGMzQG1VYuUwORYiEfThYbsvPJXnMVYmmf4YFKRlRAUsJBIhPENaWJOnBXVoLBltXYKfVG I2Zyy2MAMzYTHzXO3IKeWuOKYdPoU1WAqwIGBeQBAj ci8HWHQlMOGvJzM0YlDkAHTmLWNhEUwaFMTrNTG4USd3ZAOfUXJnBE1QBzKdRUNtKLhoXOUeFMNrUZHd gd4HWWPnLNK7UVWxAVQdJEQwFOGtYUtbCVHkMFB4HAYmYWNyVWStRM7NHgCkKSOsCGb4PMnjHBDbPMFd kz1RUQSlCBV6Ksj4XQJoKFHhRZQgFLpqNPYoJCO5FP ZwJAAoARNrOM4QEtUkOMJyIDOlEiJuCTMtQHBydi4QOJJbYFB4CQYgHZQjKFVtNYZfSIycBFOrFNY1Jp BgDOBiLUXoBB1OWrAjTRZoWZB0LybaZUFlQTUgba9WAOApUEV2SYNbSgCvESCtCLYiDZgpFSBiHWR9Ng z4LEIwXLHuXY4NBdDmTJWoNHY8COXgSRAmETRybi9T VEOxWHO5NuOcXlMiZYLtTHNfEPsdBSAqFYM7KDVqJCFeBTJvHD1VQrAkJWXdJSw8AKNrGXEwMHKdmi5W uNCbuWcdxe8BHBjXQe2VmTkvPCFvNOunJg1elPJ2TSVcKSONBr1ZceIeMPPgOPZXGYnmQRNpPBD7MIB6 OTXiOqU8RgP6LATzFKd0EEBsTNNxZTedHqAtZsZ8IZ d6ZDl3NIA3RnKgMWt8OFZ8KfvcUOOoMXD5IFEnECA+CY8nZVf+Xm2Hf3MkqvJ1anLiNKz9Btk3LA0XXO BEL5UVVl== ID Date Data Source [id number] 09/20/2020 07:29:[address] [facility] Service Cmnt XXX-Imp : NoneMicroorganism XXX Cult : 50,000 col/mlIndigenous microorganisms. Name Value Range Interpretation Code Description Data Catrachita rce(s) Supporting Document(s) ID Date Data Source [id number] 09/18/2020 06:24:[address] [facility] Name Value Range Interpretation Code Description Data Catrachita rce(s) Supporting Document(s) Amphetamine [Presence] in Urine by Screen method Negative [facility] Benzodiazepines [Presence] in Urine by Screen method Negat raysa [facility] (NOTE)Positive results are presumptive a nd unconfirmed;confirmatorytesting can be ordered at the [facility] at [phone] [facility] at [phone] within 5 days of collection. Cannabinoids [Presence] in Urine by Screen method Negative [facility] Benzoylecgonine [Presence] in Urine by Screen method Negat [facility] Methadone [Presence] in Urine by Screen method Negative [facility] Opiates [Presence] in Urine by Screen method Negative [facility] Oxycodone [Presence] in Urine by Screen method [facility] Fentanyl+Norfentanyl [Presence] in Urine by Screen method [facility] Service comment [facility] Results below the indicated cutoff (ng/m L), are reported as"Negative." Note: for medical purposes only; not valid for legalor employment testing. ID Date Data Source [id number] 09/18/2020 06:40:32 PM [facility] Name Value Range Interpretation Code Description Data Catrachita rce(s) Supporting Document(s) Color of Urine [facility] Clarity of Urine [facility] Specific gravity of Urine by Refractometry automated 1.018 1.003 -1.030 [facility] pH of Urine by Automated test strip 6.0 5.0-8.0 [facility] Protein [Mass/volume] in Urine by Automated test strip Neg [facility] Glucose [Mass/volume] in Urine by Automated test strip Neg [facility] Ketones [Mass/volume] in Urine by Automated test strip Neg [facility] Bilirubin.total [Presence] in Urine by Automated test strip Negative [facility] Hemoglobin [Presence] in Urine by Automated test strip Neg ative A [facility] Leukocyte esterase [Presence] in Urine by Automated test strip Negative [facility] Nitrite [Presence] in Urine by Automated test strip Negati ve [facility] Leukocytes [#/area] in Urine sediment by Automated count 6 /HPF 0 -5 H [facility] Erythrocytes [#/area] in Urine sediment by Automated count 1 /HPF 0-3 [facility] Epithelial cells.squamous [#/area] in Urine sediment by Auto mated count 6 /HPF None [facility] Mucus [#/area] in Urine sediment by Microscopy low power field None [facility] ID Date Data Source [id number] 09/18/2020 05:15:00 PM EDT [facility] Name Value Range Interpretation Code Description Data Catrachita rce(s) Supporting Document(s) SARS-CoV-2 RNA 2019 nCoV Real-Time RT-PCR: NOT DETECTED [facility] This lab was ordered by [facility] and reported by [facility]. ID Date Data Source [id number] 09/18/2020 06:51:37 PM EDT [facility] Service Cmnt XXX-Imp : NoneRespiratory P CR Panel : PCR ResultsMicroorganism XXX Cult : See Labs Tab for 2019 nCoV RT-PCR resultsHAdV DNA QI MACKENZIE+non-probe : Not DetectedHCoV 229ERNA Nph QI MACKENZIE+non-probe : Not DetectedHCoV PMN0ABH Nph QI MACKENZIE+non-probe : Not [id number] RNA Nph QI MACKENZIE+non-probe : Not [id number] RNA Upper resp QI MACKENZIE+probe : Not [...] DNA Nph Q MACKENZIE+non-probe : Not DetectedB [id number] DNA Nph MACKENZIE+non-probe : Not Detected Name Value Range Interpretation Code Description Data Catrachita rce(s) Supporting Document(s) ID Date Data Source [id number] 09/18/2020 06:51:[address] 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 ID Date Data Source [id number] 09/18/2020 05:51:[address] [facility] Name Value Range Interpretation Code Description Data Catrachita rce(s) Supporting Document(s) Leukocytes [#/volume] in Blood by Automated count 8.1 10*3/uL 4-10 [facility] Erythrocytes [#/volume] in Blood by Automated count 4.43 10*6/uL 4.1- 5.3 [facility] Hemoglobin [Mass/volume] in Blood 12.6 g/dL 11.5-15.5 [facility] Hematocrit [Volume Fraction] of Blood by Automated count 40.1 % 3 6-45 [facility] Erythrocyte mean corpuscular volume [Entitic volume] by Auto mated count 90.4 fL 80-96 [facility] Erythrocyte mean corpuscular hemoglobin [Entitic mass] by Automated count 28.5 pg 27-33 [facility] Erythrocyte mean corpuscular hemoglobin concentration [Mass/volume] by Automated count 31.5 g/dL 32.0-36.[address] [facility] E[facility]th[facility] distribution width [Ratio] by Automated count 14.9 % 11.5-14.5 H [facility] Platelets [#/volume] in Blood by Automated count 252 10*3/uL 150-400 [place] [facility] Differential cell count method - Blood [facility] Neutrophils/100 leukocytes in Blood by Automated count 71 % [facility] Lymphocytes/100 leukocytes in Blood by Automated count 18 % [facility] Monocytes/100 leukocytes in Blood by Automated count 8 % [facility] Eosinophils/100 leukocytes in Blood by Automated count 2 % [facility] Basophils/100 leukocytes in Blood by Automated count 1 % [facility] Neutrophils [#/volume] in Blood by Automated count 5.85 10*3/uL 1.8-7 .0 [facility] Lymphocytes [#/volume] in Blood by Automated count 1.47 10*3/uL 1.2-4 .0 [facility] Monocytes [#/volume] in Blood by Automated count 0.63 10*3/uL 0-0.8 [facility] Eosinophils [#/volume] in Blood by Automated count 0.13 10*3/uL 0-0.5 [facility] Basophils [#/volume] in Blood by Automated count 0.04 10*3/uL 0-0.2 [facility] Nucleated erythrocytes/100 leukocytes [Ratio] in Blood by Automated count 0 /100{WBCs} 0-0 [facility] ID Date Data Source [id number] [facility]/18[facility]2020 [facility] Name Value Range Interpretation Code Description Data Catrachita rce(s) Supporting Document(s) Acetaminophen [Mass/volume] in Serum or Plasma 10.0-30.0 L [facility] ID Date Data Source [id number] 09/18/2020 06:16:42 PM [facility] Name Value Range Interpretation Code Description Data Catrachita rce(s) Supporting Document(s) Ethanol [Mass/volume] in Serum or Plasma Negative [facility] ID Date Data Source [id number] 09/18/2020 06:16:42 PM [facility] Name Value Range Interpretation Code Description Data Catrachita rce(s) Supporting Document(s) Albumin [Mass/volume] in Serum or Plasma by Bromocresol green (BCG) dye binding method 4.1 g/dL 3.5[facility].2 [facility] Bilirubin.total [Mass/volume] in Serum or Plasma 0.2 mg/dL <1.2 [facility] Bilirubin.direct [Mass/volume] in Serum or Plasma <0.3 [facility] Alkaline phosphatase [Enzymatic activity/volume] in Serum or Plasma 97 U/L 35-104 [facility] Aspartate aminotransferase [Enzymatic activity/volume] in Serum or Plasma 15 U/L <32 [facility] Alanine aminotransferase [Enzymatic activity/volume] in Seru m or Plasma 11 U/L <33 [facility] Protein [Mass/volume] in Serum or Plasma 6.6 g/dL 6.4-8.3 [facility] ID Date Data Source [id number] 09/18/2020 06:16:42 PM EDT [facility] Value Range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 MG/ML Oral Suspension 10/31/2020 10:24:21 AM EDT [facility] Acetaminophen 325 MG Oral Tablet 10/31/2020 10:24:12 AM EDT [facility] Azelastine hydrochloride 0.5 MG/ML Ophthalmic Solution 10/01/2020 12:00:00 AM EDT eCW1 ([facility]) olanzapine 20 MG Oral Tablet 09/29/2020 12:00:00 AM EDT [facility] Benzoyl Peroxide 0.05 MG/MG / Erythromycin 0.03 MG/MG Topical Gel 09/18/2020 12:00:00 AM EDT eCW1 ([facility]) Benzoyl Peroxide 0.05 MG/MG / Erythromycin 0.03 MG/MG Topical Gel 09/18/2020 12:00:00 AM EDT eCW1 ([facility]) Benzoyl Peroxide 0.05 MG/MG / Erythromycin 0.03 MG/MG Topical Gel 09/18/2020 12:00:00 AM EDT eCW1 ([facility]) Benzoyl Peroxide 0.05 MG/MG / Erythromycin 0.03 MG/MG Topical Gel 09/18/2020 12:00:00 AM EDT eCW1 ([facility]) Benzoyl Peroxide 0.05 MG/MG / Erythromycin 0.03 MG/MG Topical Gel 09/18/2020 12:00:00 AM EDT eCW1 ([facility]) Divalproex Sodium 125 MG Delayed Release Oral Capsule 09/11/2020 12:00:00 AM EDT [facility] Fluoxetine 40 MG Oral Capsule 07/29/2020 12:00:00 AM EST eCW1 ([facility]) Fluoxetine 40 MG Oral Capsule 07/29/2020 12:00:00 AM EST eCW1 ([facility]) Fluoxetine 40 MG Oral Capsule 07/29/2020 12:00:00 AM EST eCW1 ([facility]) Fluoxetine 40 MG Oral Capsule 07/29/2020 12:00:00 AM EST eCW1 ([facility]) Erythromycin 0.005 MG/MG Ophthalmic Ointment 07/09/2020 12:00:00 AM EST eCW1 ([facility]) Erythromycin 0.005 MG/MG Ophthalmic Ointment 07/09/2020 12:00:00 AM EST eCW1 ([facility]) Benzoyl Peroxide 0.05 MG/MG / Erythromycin 0.03 MG/MG Topical [facility]
[2021-03-11 13:11] LABS: AMPHETAMINES LEVEL URINE NEGATIVE (NEGATIVE); BARBITURATES URINE NEGATIVE (NEGATIVE); BENZODIAZEPINES URINE POSITIVE (NEGATIVE); CANNABINOIDS URINE NEGATIVE (NEGATIVE); COCAINE METABOLITE URINE NEGATIVE (NEGATIVE); METHADONE URINE NEGATIVE (NEGATIVE); OPIATES URINE NEGATIVE (NEGATIVE); PHENCYCLIDINE URINE NEGATIVE (NEGATIVE)
[2021-03-11 13:12] LABS: HCG, SERUM QUALITATIVE NEGATIVE (NEGATIVE)
[2021-03-11 13:29] LABS: ACETAMINOPHEN LEVEL < 2.0 UG/ML (10.0-30.0); ALBUMIN 3.4 GM/DL (3.2-5.2); ALT/SGPT 16 U/L (12-78); BILIRUBIN,DIRECT < 0.1 MG/DL (0.0-0.2); BILIRUBIN,TOTAL 0.1 MG/DL (0.2-1.0); BLOOD UREA NITROGEN 18 MG/DL (7-18); CALCIUM LEVEL 8.8 MG/DL (8.5-10.1); CARBON DIOXIDE LEVEL 26 MEQ/L (21-32); CHLORIDE LEVEL 113 MEQ/L (98-107); CREATININE FOR GFR 0.97 MG/DL (0.55-1.30); ETHYL ALCOHOL (ETHANOL) 0.003 % (0.000-0.010); GLOMERULAR FILTRATION RATE > 60.0 (>60); GLUCOSE, FASTING 81 MG/DL (70-100); POTASSIUM SERUM 4.4 MEQ/L (3.5-5.1); SALICYLATE LEVEL < 1.7 MG/DL (5.0-30.0); SODIUM LEVEL 143 MEQ/L (136-145); TOTAL PROTEIN 6.8 GM/DL (6.4-8.2)
[2021-03-11 18:02] VITALS: BP 134/88
--- NOTE | 2021-03-11 19:12 | MHIPNPDOC ---
[facility] Progress Note Progress Note DATE OF SERVICE: 03/11/21 Patient presented by PSA, per report does not meet criteria for involuntary admission. Patient lives with mother and per collateral feels she is safe to return home. 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 Patient has a history of MR and at baseline states she sees the devil, has had thoughts of cutting, but knives/sharp objects are removed from home per collateral. She is future oriented to go shopping. Per PSA had thoughts of self harming which were vague, but no clear suicidal ideations, intent or plan. No homicidal ideations, intent or plan. Sees Dr Adrian outpatient. Mother is waiting for 15/12 aid, as patient has her own apartment established, until then will watch patient 15/12 until appointment which needs to be arranged within 5 days. Per chart review trigger for outbursts is seeing biological father whom she saw for half an hour on this occasion, as well as father getting prostate surgery tomorrow. PSA will make safety plan, as mother feels inpatient admission will not be needed or provide benefit. Vital Signs Vital Signs Date Time Temp Pulse Resp B/P (MAP) Pulse Ox O2 Delivery O2 Flow Rate FiO2 03/11/21 18:02 97.4 78 18 134/88 (103) 97 Room Air Laboratory Data 24H Labs Laboratory Tests 2 03/11/21 12:20: Nucleated Red Blood Cells % (auto) 0.0, Anion Gap 4L, Glomerular Filtration Rate > 60.0, Calcium Level 8.8, Total Bilirubin 0.1L, Direct Bilirubin < 0.1, Aspartate Amino Transf (AST/SGOT) 13, Alanine Aminotransferase (ALT/SGPT) 16, Alkaline Phosphatase 109, Total Protein 6.8, Albumin 3.4, Albumin/Globulin Ratio 1.0L, Thyroid Stimulating Hormone (TSH) 1.970, Human Chorionic Gonadotropin, Qual NEGATIVE, Salicylates Level < 1.7L, Urine Opiates Screen NEGATIVE, Urine Methadone Screen NEGATIVE, Acetaminophen Level < 2.0L, Urine Barbiturates Screen NEGATIVE, Urine Phencyclidine Screen NEGATIVE, Urine Amphetamines Screen NEGATIVE, Urine Benzodiazepines Screen POSITIVEH, Urine Cocaine Metabolite Screen NEGATIVE, Urine Cannabinoids Screen NEGATIVE, Ethyl Alcohol Level 0.003 CBC/BMP Laboratory Tests 03/11/21 12:20 Allergies Coded Allergies: divalproex sodium (Verified Allergy, Severe, 6/11/21) MOTHER REPORTS HYPER-AMMONIA LEVELS WITHIN TWO DAYS OF USE AT [facility] 2020 Cephalosporins (Verified Allergy, Intermediate, HIVES, 03/28/20) cefaclor (Verified Allergy, Unknown, 07/12/19) escitalopram (Verified Allergy, Unknown, 03/05/21) lamotrigine (Verified Adverse Reaction, Severe, SJS, 07/12/19) BURAK PECK MD Mar 11, 2021 19:12
== END 2021-03-11 18:02 | disposition home or self-care (01) ==
LOC: M ED 11:38
DX: F32.A Depression, unspecified (principal); F20.9 Schizophrenia, unspecified; R56.9 Unspecified convulsions; F70 Mild intellectual disabilities; Z79.899 Other long term (current) drug therapy

== ENCOUNTER 2021-03-12 17:40 | Emergency (ER) | payer MEDICARE, MEDICAID ==
[~2021-03-12] VITALS: Ht 165.1 cm; Wt 102.3 kg
--- OUTSIDE RECORDS SUMMARY | 2021-03-12 17:51 | CCD ---
Author Author [facility] Organization [facility] Address Unknown Phone Unavailable Care Team Providers Care Office Aide Name Role Phone SHANEKA Casiano MD Unavailable Unavailable SHANEKA Casiano MD Unavailable Unavailable SHANEKA Casiano MD Unavailable Unavailable SHANEKA Casiano MD Unavailable Unavailable SHANEKA Casiano MD Unavailable Unavailable SHANEKA Casiano MD Unavailable Unavailable HARDY GIBSON Unavailable Unavailable Jose De Jesus BLAND [id number] Unavailable Unavailable Homa Wellington Unavailable HOMA WELLINGTON Unavailable Unavailable ASA FELIX [...] Kirill ANDRADE MD Unavailable Unavailable HOLLI, CHARISSE MD Unavailable [...] Unavailable Unavailable Maribel SANTIAGO MD Unavailable Unavailable Marbiel SANTIAGO MD Unavailable Unavailable Maribel SANTIAGO MD [...] Unavailable Unavailable BILAL, AHMAD MD Unavailable Unavailable White M Yuni MD Unavailable Unavailable White, M [...] Unavailable Unavailable KIRSTIE LEE MD Unavailable Unavailable Hardy Gibson Unavailable Udekwu, Guicho ANTONIO Unavailable Unavailable Udekwu, [...] Unavailable Unavailable EMERGENCY, SERVICES MEDICAL Unavailable Unavailable Maquoketa, B Ady MD Unavailable Unavailable MaquoketaAnabell MD Unavailable Unavailable MaquoketaAnabell MD Unavailable Unavailable MarcoAnabell MD Unavailable Unavailable MaquoketaAnabell MD Unavailable Unavailable MarcoAnabell MD Unavailable Unavailable MaquoketaAnabell MD Unavailable Unavailable MarcoAnabell MD Unavailable Unavailable MaquoketaAnabell MD Unavailable Unavailable MarcoAnabell MD Unavailable Unavailable MarcoAnabell MD Unavailable Unavailable MaquoketaAnabell MD Unavailable Unavailable MaquoketaAnabell MD Unavailable Unavailable MarcoAnabell MD Unavailable Unavailable MaquoketaAnabell MD Unavailable Unavailable MaquoketaAnabell MD Unavailable Unavailable MarcoAnabell MD Unavailable Unavailable MarcoAnabell MD Unavailable Unavailable MaquoketaAnabell MD Unavailable Unavailable MarcoAnabell MD Unavailable Unavailable MaquoketaAnablel MD Unavailable Unavailable MaquoketaAnabell MD Unavailable Unavailable MaquoketaAnabell MD Unavailable Unavailable MaquoketaAnabell MD Unavailable Unavailable MaquoketaAnabell MD Unavailable Unavailable MarcoAnabell MD Unavailable Unavailable MarcoAnabell MD Unavailable Unavailable MarcoAnabell MD Unavailable Unavailable MaquoketaAnabell MD Unavailable Unavailable MarcoAnabell MD Unavailable Unavailable MarcoAnabell MD Unavailable Unavailable MaquoketaAnabell MD Unavailable Unavailable MaquoketaAnabell MD Unavailable Unavailable MarcoAnabell MD Unavailable Unavailable MaquoketaAnabell MD Unavailable Unavailable MaquoketaAnabell MD Unavailable Unavailable MarcoAnabell MD Unavailable Unavailable MarcoAnabell forte MD Unavailable Unavailable MarcoAnabell arreola MD Unavailable Unavailable MarcoAnabell arreola MD Unavailable Unavailable MaquoketaAnabell MD Unavailable Unavailable MarcoAnabell forte MD Unavailable Unavailable MarcoAnabell MD Unavailable Unavailable MaquoketaAnabell MD Unavailable Unavailable MarcoAnabell forte MD Unavailable Unavailable MarcoAnabell arreola MD Unavailable Unavailable MarcoAnabell forte MD Unavailable [...] protected by Article 27-F of the [facility] Public Health law. If you continue you may have access to information: Regarding HIV / AIDS; Provided by facilities licensed or operated by the [facility] Office of Mental Health; or Provided by the [facility] Office for People With Developmental Disabilities. If such information is present, then the following [facility] mandated warning applies: This information has [...] Ceclor, Lamictal, Rocephin, and depakote. active NETSMART ([facility] ) No known allergies No known allergies No known allergies a ctive NETSMART ([facility]) Propensity to adverse reactions NO KNOWN ALLERGIES NO KNOWN ALLERGIES [facility] Propensity to adverse reactions CEPHALOSPORINS CEPHALOSPORINS Hives [facility] Propensity to adverse reactions VALPROIC ACID VALPROIC ACID [facility] Propensity to adverse reactions VALPROIC ACID VALPROIC ACID [facility] Drug allergy PALIPERIDONE PALMITATE ER PALIPERIDONE PALMITATE ER [facility] Propensity to adverse reactions BROMOCRIPTINE BROMOCRIPTINE Rash Low [facility] Propensity to adverse reactions PALIPERIDONE PALMITATE PALIPERID ONE PALMITATE Other [facility] Propensity to adverse reactions CEFTRIAXONE Ceftriaxone Ac tive [facility] Propensity to adverse reactions LAMOTRIGINE lamotrigine Ac tive [facility] Propensity to adverse reactions PALIPERIDONE PALMITATE ER Pa liperidone Palmitate Er Active [facility] Propensity to adverse reactions CEFACLOR Cefaclor Acti ve [facility] Propensity to adverse reactions BROMOCRIPTINE Bromocriptine Rash Low Active [facility] Low Family History Family Member Name Family Member Gender Family Member Status Date o f Status Description Data Source(s) Unknown Unknown Problem MEDENT ([facility] ) father Encounters Encounter Providers Location Date Indications Data Source(s ) Outpatient [address] [facility] [id number] 02/28/2021 12:00:00 AM EDT eCW1 ([facility]) Outpatient Attender: Daily Brock MD Main office - [place] 02/25/2021 12:15:00 PM EDT MEDENT ([facility], ) 02/25/2021 01:00:00 AM EDT - 021 12:00:43 AM EDT NETSMART ([facility]) Unknown [address] [facility] [id number] 02/25/2021 12:00:00 AM EDT eCW1 ([facility]) Unknown [address] [facility] [address] 02/20/2021 12:00:00 AM EDT eCW1 ([facility]) Unknown [address] [facility] [address] 12/12/2020 12:00:00 AM EDT eCW1 ([facility]) Inpatient Attender: America Thibodeaux er: AMERICA MCHUGH .Admitter: AMERICA MCHUGH .Referrer: AMERICA MCHUGH . 12/07/2020 12:00:[address] [facility] Suicidal ideations Inpatient Attender: Merrick SapnaAttender: MERRICK SAPNAAttender: Yuni Li MDAttender: Hardy KumarAttender: HARDY KUMARAttender: Kirsten Daily KhaliqAttender: KIRSTEN KHALIQAttender: Munnam JafarAttender: MUNNAM JAF ARAttender: Adaora Udekwu MDAttender: BRIGITTEISHA MARIANOHIR MDAttender: NICOLE STRICKLANDON MDAttender: PETROS RENDON MDAttender: Bryan Beckler MDAttender: Aart GeurtsenAttender: TANNA HADZIPASIC MDAttender: America DuttaAttender: AMERICA LOLITA .Attender: KIRSTIE LEE MDAttender: Lenore RobbAdmitter: KIRSTIE LEE MDReferrer: AMERICA LOLITA .Highway Painter: Ady Lara MDConsultant: Dylan JamisonwthamConsultant: Lobo Stacynsultant: LOBO BLAND [id number]: Emily JafarConsultant: MUNNAM JAFARConsultant: Adaora Udekwu MDConsultant: OPHELIA SANTIAGO MDConsultant: LINUS RAMSAY MD [id number] 12/04/2020 12:00:00 AM EDT - 2021 10:40:00 AM EDT psych eval suicide attempt [facility] psych eval suicide attempt Patient discharged. [place] [address] [facility] [facility] [address] 12/04/2020 12:00:00 AM EDT eCW1 ([facility]) [place] [address] [facility] [facility] [address] 11/28/2020 12:00:00 AM EDT eCW1 ([facility]) [place] [address] [facility] [facility] [address] 11/27/2020 12:00:00 AM EDT eCW1 ([facility]) [place] [address] [facility] [address] 11/26/2020 12:00:00 AM EDT eCW1 ([facility]) [place] [address] [facility] [address] 11/24/2020 12:00:00 AM EDT eCW1 ([facility]) [place] [address] [facility] [address] 11/24/2020 12:00:00 AM EDT eCW1 ([facility]) [place] [address] [facility] [address] 11/21/2020 12:00:00 AM EDT eCW1 ([facility]) Inpatient Attender: MD YULIET Teran nder: MD DURAN Shahender: PROVIDER DEFAULTAttender: MEDICAL EMERGENCYAttender: KETAN KOTHARI MDAdmitter: MD DURAN NIELSON [id number] 11/18/2020 01:14:00 PM EDT - 11/20/2020 02:30:00 PM EDT [facility] Patient discharged. Inpatient Attender: DOCTOR MORINAdmi tter: MD DUARN Buscherrer: CATE CORTEZ MD 11/18/2020 01:14:00 PM EDT [facility] Outpatient 11/16/2020 11:40:00 PM EDT [facility] [place] [address] [facility] [address] 11/13/2020 12:00:00 AM EDT eCW1 ([facility]) Inpatient Attender: Sirisha Hansen MDA ttender: SUELLEN THURSTON MDAdmitter: Sirisha Hansen MDReferrer: Lobo Hopson [id number] 12:00:00 AM EDT - 11/02/2020 11:10:00 AM EDT Congenital hypothyroidism without goiter [facility] Congenital hypothyroidism without goiter Patient discharged. Outpatient Attender: Daily Brock MD Main office - [place] 10/29/2020 11:45:00 AM EDT MEDENT ([facility], ) Outpatient Attender: MICHELLE Ferrari tter: MICHELLE VILLEDA MDReferrer: LINUS ANDRADE MD 10/19/2020 01:58:00 AM EDT unspecified depressiv e disorder [facility] unspecified depressive disorder [place] [address] [facility] [address] 10/01/2020 12:00:00 AM EDT [facility] [place] [address] [facility] [facility] [address] 09/21/2020 12:00:00 AM EDT eCW1 ([facility]) Inpatient Attender: MUSA Casiano MDAtte nder: AIDEN NELSON MDAttender: JAQUELINE GONZALES IIIAttender: CHARISSE HOLLI MDAdmitter: AIDEN NELSON MDReferrer: AIDEN NELSON MDConsultant: OPHELIA SANTIAGO MDConsultant: MUSA Casiano MDConsultant: LOBO BLAND [id number] 09/18/2020 12:00:00 AM EDT - 09/29/2020 04:43:00 PM EDT Suicide attempt, initial encounter [facility] Suicide attempt, initial encounter Patient discharged. [place] [address] [facility] [address] 09/18/2020 12:00:00 AM EDT eCW1 ([facility]) [place] [address] [facility] [address] 09/17/2020 12:00:00 AM EDT eCW1 ([facility]) Unknown [address] [facility] [place] [address] 09/17/2020 12:00:00 AM EDT [facility]1 ([facility]) Unknown [address] [facility] [place] [address] 09/14/2020 12:00:00 AM EDT eCW1 ([facility]) Unknown [address] [facility] [place] [address] 09/13/2020 12:00:00 AM EDT eCW1 ([facility]) Emergency Attender: EVERETT HANDY MD [id number] 06:12:00 PM EDT - 09/11/2020 09:07:00 PM EDT [facility] Patient discharged. Office Visit, Est Pt., Level 4 PC [address] [place] [address] 09/11/2020 12:00:00 AM EDT eCW1 ([facility]) Unknown [address] [facility] [address] 08/20/2020 12:00:00 AM EDT eCW1 ([facility]) Unknown [address] [facility] [address] 07/30/2020 12:00:00 AM EST eCW1 ([facility]) Office Visit, Est Pt., Level 3 PC [address] [place] [address] 07/27/2020 12:00:00 AM EST eCW1 ([facility]) Unknown [address] [facility] [address] 07/27/2020 12:00:00 AM EST eCW1 ([facility]) Unknown [address] [facility] [address] 07/19/2020 12:00:00 AM EST eCW1 ([facility]) Office Visit, Est Pt., Level 3 PC [address] [place] [address] 07/09/2020 12:00:00 AM EST eCW1 ([facility]) Unknown [address] [facility] [address] 07/09/2020 12:00:00 AM EST eCW1 ([facility]) Unknown [address] [facility] [place] [address] 06/12/2020 12:00:00 AM EST eCW1 ([facility]) Unknown [address] [place] [address] [place] [address] 05/30/2020 12:00:00 AM EST eCW1 ([facility]) Unknown [address] [facility] [place] [address] 05/10/2020 12:00:00 AM EST eCW1 ([facility]) Outpatient [address] [facility] [place] [address] 05/07/2020 12:00:00 AM EST eCW1 ([facility]) Outpatient [address] [facility] [place] [address] 05/07/2020 12:00:00 AM EST eCW1 ([facility]) Unknown [address] [facility] [place] [address] 05/07/2020 12:00:00 AM EST eCW1 ([facility]) Unknown [address] [facility] [place] [address] 05/01/2020 12:00:00 AM EST eCW1 ([facility]) Unknown [address] [facility] [place] [address] 05/01/2020 12:00:00 AM EST eCW1 ([facility]) Unknown [address] [facility] [place] [address] 05/01/2020 12:00:00 AM EST eCW1 ([facility]) Unknown [address] [facility] [place] [address] 05/01/2020 12:00:00 AM EST eCW1 ([facility]) Unknown [address] [facility] [place] [address] 05/01/2020 12:00:00 AM EST eCW1 ([facility]) Unknown [address] [facility] [place] [address] 05/01/2020 12:00:00 AM EST eCW1 ([facility]) Unknown [address] [facility] [place] [address] 04/09/2020 12:00:00 AM EST eCW1 ([facility]) Outpatient Attender: Daily Brock MD Main office - [place] 03/05/2020 11:00:00 AM EDT MEDENT ([facility] jazmin, SHAUNA) Outpatient [place]ERAY[place] 02/29/2020 09:44:01 AM EDT [facility] Outpatient LERAYDC 02/21/2020 08:34:03 AM EDT [facility] Outpatient [place] 02/21/2020 08:34:02 AM EDT [facility] Outpatient [place] 02/17/2020 01:52:01 PM EDT [facility] Immunizations Vaccine Date Status Description Data Source(s) influenza, recombinant, quadrIvalent,injectable, prese rvative free 02/28/2021 03:41:00 PM EDT completed eCW1 ([facility]) COVID-19 VACC,MRNA(MODERNA)/PF 10/30/2020 12:00:00 AM EDT completed [facility] COVID-19 VACCINE Moderna 10/30/2020 12:00:00 AM EDT completed [facility] Vaccine Series Complete: YESThis Data wa s Submitted to [facility] Via [employer]. COVID-19 VACC,MRNA(MODERNA)/PF 10/05/2020 12:00:00 AM EDT completed [facility] COVID-19 VACCINE Moderna 10/05/2020 12:00:00 AM EDT completed [facility] Vaccine Series Complete: NOThis Data was Submitted to [facility] Via [employer]. influenza, recombinant, quadrIvalent,injectable, prese rvative free 05/07/2020 04:58:00 PM EST completed eCW1 ([facility]) influenza, recombinant, quadrIvalent,injectable, prese rvative free 05/07/2020 04:58:00 PM EST completed eCW1 ([facility]) influenza, recombinant, quadrIvalent,injectable, prese rvative free 05/07/2020 04:58:00 PM EST completed eCW1 ([facility]) influenza, recombinant, quadrIvalent,injectable, prese rvative free 05/07/2020 04:58:00 PM EST completed eCW1 ([facility]) influenza, recombinant, quadrIvalent,injectable, prese rvative free 05/07/2020 04:58:00 PM EST completed eCW1 ([facility]) influenza, recombinant, quadrIvalent,injectable, prese rvative free 05/07/2020 04:58:00 PM EST completed eCW1 ([facility]) influenza, recombinant, quadrIvalent,injectable, prese rvative free 05/07/2020 04:58:00 PM EST completed eCW1 ([facility]) influenza, recombinant, quadrIvalent,injectable, prese rvative free 05/07/2020 04:58:00 PM EST completed eCW1 ([facility]) influenza, recombinant, quadrIvalent,injectable, prese rvative free 05/07/2020 04:58:00 PM EST completed eCW1 ([facility]) influenza, recombinant, quadrIvalent,injectable, prese rvative free 05/07/2020 04:58:00 PM EST completed eCW1 ([facility]) influenza, recombinant, quadrIvalent,injectable, prese rvative free 05/07/2020 04:58:00 PM EST completed eCW1 ([facility]) influenza, recombinant, quadrIvalent,injectable, prese rvative free 05/07/2020 04:58:00 PM EST completed eCW1 ([facility]) influenza, recombinant, quadrIvalent,injectable, prese rvative free 05/07/2020 04:58:00 PM EST completed eCW1 ([facility]) influenza, recombinant, quadrIvalent,injectable, prese rvative free 05/07/2020 04:58:00 PM EST completed eCW1 ([facility]) influenza, recombinant, quadrIvalent,injectable, prese rvative free 05/07/2020 04:58:00 PM EST completed eCW1 ([facility]) influenza, recombinant, quadrIvalent,injectable, prese rvative free 05/07/2020 04:58:00 PM EST completed eCW1 ([facility]) influenza, recombinant, quadrIvalent,injectable, prese rvative free 05/07/2020 04:58:00 PM EST completed eCW1 ([facility]) influenza, recombinant, quadrIvalent,injectable, prese rvative free 05/07/2020 04:58:00 PM EST completed eCW1 ([facility]) influenza, recombinant, quadrIvalent,injectable, prese rvative free 05/07/2020 04:58:00 PM EST completed eCW1 ([facility]) influenza, recombinant, quadrIvalent,injectable, prese rvative free 05/07/2020 04:58:00 PM EST completed eCW1 ([facility]) influenza, recombinant, quadrIvalent,injectable, prese rvative free 05/07/2020 04:58:00 PM EST completed eCW1 ([facility]) influenza, recombinant, quadrIvalent,injectable, prese rvative free 05/07/2020 04:58:00 PM EST completed eCW1 ([facility]) influenza, recombinant, quadrIvalent,injectable, prese rvative free 05/07/2020 04:58:00 PM EST completed eCW1 ([facility]) influenza, recombinant, quadrIvalent,injectable, prese rvative free 05/07/2020 04:58:00 PM EST completed eCW1 ([facility]) influenza, recombinant, quadrIvalent,injectable, prese rvative free 05/07/2020 04:58:00 PM EST completed eCW1 ([facility]) influenza, recombinant, quadrIvalent,injectable, prese rvative free 05/07/2020 04:58:00 PM EST completed eCW1 ([facility]) influenza, recombinant, quadrIvalent,injectable, prese rvative free 05/07/2020 04:58:00 PM EST completed eCW1 ([facility]) influenza, recombinant, quadrIvalent,injectable, prese rvative free 05/07/2020 04:58:00 PM EST completed eCW1 ([facility]) influenza, recombinant, quadrIvalent,injectable, prese rvative free 05/07/2020 04:58:00 PM EST completed eCW1 ([facility]) influenza, recombinant, quadrIvalent,injectable, prese rvative free 05/07/2020 04:58:00 PM EST completed eCW1 ([facility]) influenza, recombinant, quadrIvalent,injectable, prese rvative free 05/07/2020 04:58:00 PM EST completed eCW1 ([facility]) influenza, recombinant, quadrIvalent,injectable, prese rvative free 05/07/2020 04:58:00 PM EST completed eCW1 ([facility]) influenza, recombinant, quadrIvalent,injectable, prese rvative free 05/07/2020 04:58:00 PM EST completed eCW1 ([facility]) Medications Medication Brand Name Start Date Product [...] propionate 0.05 MG/ACTUAT Metered Dose Seun al Meservey 50 mcg/actuation FLUTICASONE PROPIONATE 03/02/2021 12:00:00 AM [...] ac tive Propranolol HCl 10 MG eCW1 ([facility]) quetiapine 25 MG Oral Tablet [Seroquel] Seroquel 25 MG Seroq uel 25 MG 02/26/2021 12:00:00 AM EDT 1.0 {tablet_at_bedtime} active Seroquel 25 MG eCW1 ([facility]) Zonegran 100 MG Zonegran 02/25/2021 01:00:00 AM EDT completed NETSMART ([facility]) Propranolol HCl 10 MG Propranolol HCl 02/25/2021 01:00:00 AM EDT completed NETSMART ([facility]) SEROquel 25 MG SEROquel 02/25/2021 01:00:00 AM EDT completed NETSMART ([facility]) Albuterol Sulfate (2.5 MG/3ML) 0.083% Albuterol Sulfate 01:00:00 AM EDT completed NETSMAR T ([facility]) Azelastine HCl 0.05 % Azelastine HCl 02/25/2021 01:00:00 AM EDT completed NETSMART ([facility]) Calcium-Vitamin D3 600-400 MG-UNIT Calcium-Vitamin D3 02/25 01:00:00 AM EDT completed NETSMAR T ([facility]) Onfi 10 MG Onfi 02/25/2021 01:00:00 AM EDT complet ed NETSMART ([facility]) Synthroid 25 MCG Synthroid 02/25/2021 01:00:00 AM EDT completed NETSMART ([facility]) Ketoconazole 2 % Ketoconazole 02/25/2021 01:00:00 AM EDT completed NETSMART ([facility]) Fluticasone Propionate 50 MCG/ACT Fluticasone Propionate 08/2020 01:00:00 AM EDT completed NETSMAR T ([facility]) 10 mg 2021 12:00:00 AM EDT [...] Oral active [facility] 11/02/2020 12:00:00 AM EDT capsule 90 TAKE THREE CAPSULES BY MOUTH EVERY DAY TAKE THREE CAPSULES BY MOUTH EVERY DAY SOLD: 11/02/2020 [facility] 50 mg 11/02/2020 12:00:00 AM EDT tablet 60 TAKE ONE TABLET BY MOUTH TWICE A DAY TAKE ONE TABLET BY MOUTH TWICE A DAY SOLD: 11/02/2020 [facility] multivitamin tablet 1 tablet 0632-8745-32 11/01/2020 08:00:00 AM EDT 1 {tbl} Oral active 1 tablet, Oral , Daily Standard, First dose on Thu11/01/20 at 0800, For 30 days [facility] Medication administered onsite Levothyroxine Sodium 0.025 MG Oral Table t levothyroxine (SYNTHROID) tablet 25 mcg levothyroxine (SYNTHROID) tablet 25 mcg 11/01/2020 06:00:00 AM EDT 25 ug Oral active 25 mcg, Oral, Daily at 0600, First dose on Thu11/01/20 at 0600, For 30 days [facility] Medication administered onsite Chlorpromazine hydrochloride 50 MG Oral Tablet chlorproMAZINE HCl 50 MG Oral Tablet (THORAZINE) chlorproMAZINE HCl 50 MG Oral Tablet (THORAZINE) 11/01 12:00:00 AM EDT 50 mg Oral active Take 1 tablet by mouth Two Times Daily [facility] olopatadine 1 MG/ML Ophthalmic Solution olopatadine (PATANOL) 0.1 % ophthalmic solution 1 drop olopatadine (PATANOL) 0.1 % ophthalmic solution 1 drop 10/31/2020 08:00:00 PM EDT 1 [drp] Both Eyes active 1 drop, Both Eyes, 2 Times Daily, First dose on Thu10/31/20 at 2000, For 30 days [facility] Medication administered onsite Chlorpromazine hydrochloride 25 MG Oral Tablet chlorproMAZINE (THORAZINE) tablet 50 mg chlorproMAZINE (THORAZINE) tablet 50 mg 10/31/2020 01:15:00 PM E DT 50 mg Oral active 50 mg, Ora l, 2 Times Daily, First dose on Thu10/31/20 at 1315, For 30 days [facility] Medication administered onsite Eucalyptol 0.92 MG/ML / Menthol 0.42 MG/ ML / methyl salicylate 0.6 MG/ML / Thymol 0.64 MG/ML Mouthwash saliva substitute (BIOTENE) liquid 5 mL saliva substitute (BIOTENE) liquid 5 mL 10/31/2020 01:03:39 PM EDT 5 mL Mouth/Throat active 5 mL, Mouth/Thr oat, PRN, Dry Mouth, Starting on Thu10/31/20 at 1303, For 30 days [facility] Medication administered onsite Chlorpromazine hydrochloride 25 MG Oral Tablet chlorproMAZINE (THORAZINE) tablet 50 mg chlorproMAZINE (THORAZINE) tablet 50 mg 10/31/2020 01:03:18 PM E DT 50 mg Oral active 50 mg, Ora l, Daily PRN, Agitation, Starting on Thu10/31/20 at 1303, For 30 days [facility] Medication administered onsite zonisamide 100 MG Oral Capsule zonisamide (ZONEGRAN) c apsule 200 mg zonisamide (ZONEGRAN) capsule 200 mg 10/31/2020 12:15:00 PM EDT 200 mg Oral active 200 mg, Oral, 2 Times Daily, First dose on Thu10/31/20 at 1215, For 30 days [facility] Medication administered onsite clobazam 10 MG Oral Tablet cloBAZam (ONFI) tablet 15 m g cloBAZam (ONFI) tablet 15 mg 10/31/2020 12:15:00 PM EDT 15 mg Oral active 15 mg, Oral, 2 Times Daily, First dose on Thu10/31/20 at 1215, For 30 days [facility] Medication administered onsite atorvastatin 40 MG Oral Tablet atorvastatin (LIPITOR) tablet 20 mg atorvastatin (LIPITOR) tablet 20 mg 10/31/2020 12:15:00 PM EDT 20 mg Oral active 20 mg, Oral, Daily Standard, First dose on Thu10/31/20 at 1215, For 30 days [facility] Medication administered onsite Fluoxetine 20 MG Oral Capsule fluoxetine (PROZAC) caps ule 60 mg fluoxetine (PROZAC) capsule 60 mg 10/31/2020 12:15:00 PM EDT 60 mg Oral active 60 mg, Oral, Daily Standard, First dose on Thu10/31/20 at 1215, For 30 days [facility] Medication administered onsite albuterol (PROVENTIL HFA) inhaler 2 puff [id number] 10/31/2020 12:08:21 PM EDT 2 {puff} Inhalation active 2 pu ff, Inhalation, Every 6 hours PRN, Wheezing, Starting on Thu10/31/20 at 1208, For 4 days
Shake the inhaler well before each spray.
[facility] Medication administered onsite Ondansetron 4 MG Disintegrating Oral Tab let ondansetron (ZOFRAN-ODT) disintegrating tablet 4 mg ondansetron (ZOFRAN-ODT) disintegrating tablet 4 mg 10/31/2020 10:24:29 AM EDT 4 mg Oral active 4 mg, Oral, Every 6 hours PRN, Nausea, Starting on Thu10/31/20 at 1024, For 30 days
Dissolve on tongue.
[facility] Medication administered onsite Aluminum Hydroxide 40 MG/ML [...] at 1024, For 30 days
MDD 4
[facility] Medication administered onsite Magnesium Hydroxide 80 MG/ML [...] creatinine > 2 notify provider before administering.
[facility] Medication administered onsite Acetaminophen 325 MG Oral Tablet acetaminophen (TYLENO L) tablet 650 mg acetaminophen (TYLENOL) tablet 650 mg 10/31/2020 10:24:12 AM EDT 65 0 mg Oral active 650 mg, Oral, E very 4 hours PRN, Mild Pain (Pain Scale Score 1- 3), Headaches, Starting on Thu10/31/20 at 1024, For 30 days
MDD 4
[facility] Medication administered onsite olanzapine 10 MG Oral Tablet OLANZAPINE 10/25/2020 12:00:00 AM EDT tab let 14 TAKE TWO TABLETS BY MOUTH AT BEDTIME FOR MOOD TAKE TWO TABLETS BY MOUTH AT BEDTIME FOR MOOD SOLD: 10/25/2020 [facility] Azelastine hydrochloride 0.5 MG/ML Ophthalmic Solution Azelastine HCl 0.05 % Azelastine HCl 0.05 % 10/01/2020 12:00:00 AM EDT active Azelastine HCl 0.05 % eCW1 ([facility]) 0.05 % 10/01/2020 12:00:00 AM EDT drops 6 INSTILL 1 DROP IN EACH EYE TWO TIMES A DAY INSTILL 1 DROP IN EACH EYE TWO TIMES A DAY SOLD: 10/03/2020 [facility] Azelastine hydrochloride 0.5 MG/ML Ophthalmic Solution Azelastine HCl 0.05 % Azelastine HCl 0.05 % 10/01/2020 12:00:00 AM EDT active Azelastine HCl 0.05 % eCW1 ([facility]) Azelastine hydrochloride 0.5 MG/ML Ophthalmic Solution Azelastine HCl 0.05 % Azelastine HCl 0.05 % 10/01/2020 12:00:00 AM EDT active Azelastine HCl 0.05 % eCW1 ([facility]) Azelastine hydrochloride 0.5 MG/ML Ophthalmic Solution Azelastine HCl 0.05 % Azelastine HCl 0.05 % 10/01/2020 12:00:00 AM EDT active Azelastine HCl 0.05 % eCW1 ([facility]) Azelastine hydrochloride 0.5 MG/ML Ophthalmic Solution Azelastine HCl 0.05 % Azelastine HCl 0.05 % 10/01/2020 12:00:00 AM EDT active Azelastine HCl 0.05 % eCW1 ([facility]) Azelastine hydrochloride 0.5 MG/ML Ophthalmic Solution Azelastine HCl 0.05 % Azelastine HCl 0.05 % 10/01/2020 12:00:00 AM EDT active Azelastine HCl 0.05 % eCW1 ([facility]) Azelastine hydrochloride 0.5 MG/ML Ophthalmic Solution Azelastine HCl 0.05 % Azelastine HCl 0.05 % 10/01/2020 12:00:00 AM EDT active Azelastine HCl 0.05 % eCW1 ([facility]) Azelastine hydrochloride 0.5 MG/ML Ophthalmic Solution Azelastine HCl 0.05 % Azelastine HCl 0.05 % 10/01/2020 12:00:00 AM EDT active Azelastine HCl 0.05 % eCW1 ([facility]) Azelastine hydrochloride 0.5 MG/ML Ophthalmic Solution Azelastine HCl 0.05 % Azelastine HCl 0.05 % 10/01/2020 12:00:00 AM EDT active Azelastine HCl 0.05 % eCW1 ([facility]) Azelastine hydrochloride 0.5 MG/ML Ophthalmic Solution Azelastine HCl 0.05 % Azelastine HCl 0.05 % 10/01/2020 12:00:00 AM EDT active Azelastine HCl 0.05 % eCW1 ([facility]) Azelastine hydrochloride 0.5 MG/ML Ophthalmic Solution Azelastine HCl 0.05 % Azelastine HCl 0.05 % 10/01/2020 12:00:00 AM EDT active Azelastine HCl 0.05 % eCW1 ([facility]) 0.05 % 10/01/2020 12:00:00 AM EDT drops 6 INSTILL 1 DROP IN EACH EYE TWO TIMES A DAY INSTILL 1 DROP IN EACH EYE TWO TIMES A DAY SOLD: 10/28/2020 [facility] Azelastine hydrochloride 0.5 MG/ML Ophthalmic Solution Azelastine HCl 0.05 % Azelastine HCl 0.05 % 10/01/2020 12:00:00 AM EDT active Azelastine HCl 0.05 % eCW1 ([facility]) 0.05 % 10/01/2020 12:00:00 AM EDT drops 6 INSTILL 1 DROP IN EACH EYE TWO TIMES A DAY INSTILL 1 DROP IN EACH EYE TWO TIMES A DAY SOLD: 02/25/2021 [facility] Azelastine hydrochloride 0.5 MG/ML Ophthalmic Solution Azelastine HCl 0.05 % Azelastine HCl 0.05 % 10/01/2020 12:00:00 AM EDT active Azelastine HCl 0.05 % eCW1 ([facility]) olanzapine 20 MG Oral Tablet OLANZapine 20 MG Oral Tab let (ZYPREXA) OLANZapine 20 MG Oral Tablet (ZYPREXA) 09/29/2020 12:00:00 AM EDT 20 mg Oral aborted Take 1 tablet by mouth nightly [facility] Benzoyl Peroxide 0.05 MG/MG / Erythromyc in 0.03 MG/MG Topical Gel Benzoyl Peroxide-Erythromycin 5-3 % Benzoyl Peroxide-Erythromycin 5-3 % 09/18/2020 12:00:00 AM EDT active Benzoyl Peroxide-Erythromycin 5-3 % eCW1 ([facility]) Benzoyl Peroxide 0.05 MG/MG / Erythromyc in 0.03 MG/MG Topical Gel Benzoyl Peroxide-Erythromycin 5-3 % Benzoyl Peroxide-Erythromycin 5-3 % 09/18/2020 12:00:00 AM EDT active Benzoyl Peroxide-Erythromycin 5-3 % eCW1 ([facility]) Benzoyl Peroxide 0.05 MG/MG / Erythromyc in 0.03 MG/MG Topical Gel Benzoyl Peroxide-Erythromycin 5-3 % Benzoyl Peroxide-Erythromycin 5-3 % 09/18/2020 12:00:00 AM EDT active Benzoyl Peroxide-Erythromycin 5-3 % eCW1 ([facility]) Benzoyl Peroxide 0.05 MG/MG / Erythromyc in 0.03 MG/MG Topical Gel Benzoyl Peroxide-Erythromycin 5-3 % Benzoyl Peroxide-Erythromycin 5-3 % 09/18/2020 12:00:00 AM EDT active Benzoyl Peroxide-Erythromycin 5-3 % eCW1 ([facility]) 25 mcg 09/18/2020 12:00:00 AM EDT [...] EDT active Benzoyl Peroxide-Erythromycin 5-3 % eCW1 ([facility]) Benzoyl Peroxide 0.05 MG/MG / Erythromycin [...] EDT active Benzoyl Peroxide-Erythromycin 5-3 % eCW1 ([facility]) atorvastatin 20 MG Oral Tablet ATORVASTATIN [...] EDT active Benzoyl Peroxide-Erythromycin 5-3 % eCW1 ([facility]) Benzoyl Peroxide 0.05 MG/MG / Erythromyc in 0.03 MG/MG Topical Gel Benzoyl Peroxide-Erythromycin 5-3 % Benzoyl Peroxide-Erythromycin 5-3 % 09/18/2020 12:00:00 AM EDT active Benzoyl Peroxide-Erythromycin 5-3 % eCW1 ([facility]) Benzoyl Peroxide 0.05 MG/MG / Erythromyc in 0.03 MG/MG Topical Gel Benzoyl Peroxide-Erythromycin 5-3 % Benzoyl Peroxide-Erythromycin 5-3 % 09/18/2020 12:00:00 AM EDT active Benzoyl Peroxide-Erythromycin 5-3 % eCW1 ([facility]) Benzoyl Peroxide 0.05 MG/MG / Erythromyc in 0.03 MG/MG Topical Gel Benzoyl Peroxide-Erythromycin 5-3 % Benzoyl Peroxide-Erythromycin 5-3 % 09/18/2020 12:00:00 AM EDT active Benzoyl Peroxide-Erythromycin 5-3 % eCW1 ([facility]) 10 mg 09/18/2020 12:00:00 AM EDT [...] EDT active Benzoyl Peroxide-Erythromycin 5-3 % eCW1 ([facility]) atorvastatin 20 MG Oral Tablet ATORVASTATIN [...] EDT active Benzoyl Peroxide-Erythromycin 5-3 % eCW1 ([facility]) Benzoyl Peroxide 0.05 MG/MG / Erythromyc in 0.03 MG/MG Topical Gel Benzoyl Peroxide-Erythromycin 5-3 % Benzoyl Peroxide-Erythromycin 5-3 % 09/18/2020 12:00:00 AM EDT active Benzoyl Peroxide-Erythromycin 5-3 % eCW1 ([facility]) Benzoyl Peroxide 0.05 MG/MG / Erythromyc in 0.03 MG/MG Topical Gel Benzoyl Peroxide-Erythromycin 5-3 % Benzoyl Peroxide-Erythromycin 5-3 % 09/18/2020 12:00:00 AM EDT active Benzoyl Peroxide-Erythromycin 5-3 % eCW1 ([facility]) Benzoyl Peroxide 0.05 MG/MG / Erythromyc in 0.03 MG/MG Topical Gel Benzoyl Peroxide-Erythromycin 5-3 % Benzoyl Peroxide-Erythromycin 5-3 % 09/18/2020 12:00:00 AM EDT active Benzoyl Peroxide-Erythromycin 5-3 % eCW1 ([facility]) Benzoyl Peroxide 0.05 MG/MG / Erythromyc in 0.03 MG/MG Topical Gel Benzoyl Peroxide-Erythromycin 5-3 % Benzoyl Peroxide-Erythromycin 5-3 % 09/18/2020 12:00:00 AM EDT active Benzoyl Peroxide-Erythromycin 5-3 % eCW1 ([facility]) Divalproex Sodium 125 MG Delayed Release Oral Capsule divalproex Sodium (DEPAKOTE SPRINKLE) 125 MG capsule divalproex Sodium (DEPAKOTE SPRINKLE) 12 5 MG capsule 09/11/2020 12:00:00 AM EDT 250 mg Oral active Take 2 capsules (250 mg total) by mouth 2 (two) times a day [facility] 2.5 mg 09/03/2020 12:00:00 AM EDT [...] CAPSULE BY MOUTH EVERY DAY SOLD: 08/01/2020 [facility] olanzapine 10 MG Oral Tablet OLANZAPINE 07/31/2020 12:00:00 AM EST tab let 30 TAKE ONE TABLET BY MOUTH EVERY EVENING TAKE ONE TABLET BY MOUTH EVERY EVENING SOLD: 08/01/2020 [facility] Fluoxetine 40 MG Oral Capsule FLUoxetine HCl 40 MG FLUoxetin e HCl 40 MG 07/29/2020 12:00:00 AM EST 1.0 {capsule} active FLUoxetine HCl 40 MG eCW1 ([facility]) Ciprofloxacin 250 MG Oral Tablet Ciprofloxacin HCl 250 MG Ciprofloxacin HCl 250 MG 07/29/2020 12:00:00 AM EST 1.0 {tablet} suspe nded Ciprofloxacin HCl 250 MG eCW1 ([facility]) Fluoxetine 40 MG Oral Capsule FLUoxetine HCl 40 MG FLUoxetin e HCl 40 MG 07/29/2020 12:00:00 AM EST 1.0 {capsule} active FLUoxetine HCl 40 MG eCW1 ([facility]) Ciprofloxacin 250 MG Oral Tablet Ciprofloxacin HCl 250 MG Ciprofloxacin HCl 250 MG 07/29/2020 12:00:00 AM EST 1.0 {tablet} activ e Ciprofloxacin HCl 250 MG eCW1 ([facility]) 250 mg 07/29/2020 12:00:00 AM EST tablet 3 TAKE ONE TABLET BY MOUTH EVERY DAY AT 0600 TAKE ONE TABLET BY MOUTH EVERY DAY AT 0600 SOLD: 07/29/2020 [facility] Fluoxetine 40 MG Oral Capsule FLUoxetine HCl 40 MG FLUoxetin e HCl 40 MG 07/29/2020 12:00:00 AM EST 1.0 {capsule} active FLUoxetine HCl 40 MG eCW1 ([facility]) Fluoxetine 40 MG Oral Capsule FLUoxetine HCl 40 MG FLUoxetin e HCl 40 MG 07/29/2020 12:00:00 AM EST 1.0 {capsule} active FLUoxetine HCl 40 MG eCW1 ([facility]) Ciprofloxacin 250 MG Oral Tablet Ciprofloxacin HCl 250 MG Ciprofloxacin HCl 250 MG 07/29/2020 12:00:00 AM EST 1.0 {tablet} suspe nded Ciprofloxacin HCl 250 MG eCW1 ([facility]) Ciprofloxacin 250 MG Oral Tablet Ciprofloxacin HCl 250 MG Ciprofloxacin HCl 250 MG 07/29/2020 12:00:00 AM EST 1.0 {tablet} suspe nded Ciprofloxacin HCl 250 MG eCW1 ([facility]) Fluoxetine 40 MG Oral Capsule FLUoxetine HCl 40 MG FLUoxetin e HCl 40 MG 07/29/2020 12:00:00 AM EST 1.0 {capsule} active FLUoxetine HCl 40 MG eCW1 ([facility]) Fluoxetine 40 MG Oral Capsule FLUoxetine HCl 40 MG FLUoxetin e HCl 40 MG 07/29/2020 12:00:00 AM EST 1.0 {capsule} active FLUoxetine HCl 40 MG eCW1 ([facility]) Ciprofloxacin 250 MG Oral Tablet Ciprofloxacin HCl 250 MG Ciprofloxacin HCl 250 MG 07/29/2020 12:00:00 AM EST 1.0 {tablet} activ e Ciprofloxacin HCl 250 MG eCW1 ([facility]) Fluoxetine 40 MG Oral Capsule FLUoxetine HCl 40 MG FLUoxetin e HCl 40 MG 07/29/2020 12:00:00 AM EST 1.0 {capsule} active FLUoxetine HCl 40 MG eCW1 ([facility]) benztropine mesylate 0.5 MG Oral Tablet Benztropine Me sylate 0.5 MG Benztropine Mesylate 0.5 MG 07/29/2020 12:00:00 AM EST 1.0 {tablet_at_bedtime} active Benztropine Mesylate 0.5 MG eCW1 ([facility]) Fluoxetine 40 MG Oral Capsule FLUoxetine HCl 40 MG FLUoxetin e HCl 40 MG 07/29/2020 12:00:00 AM EST 1.0 {capsule} active FLUoxetine HCl 40 MG eCW1 ([facility]) Ciprofloxacin 250 MG Oral Tablet Ciprofloxacin HCl 250 MG Ciprofloxacin HCl 250 MG 07/29/2020 12:00:00 AM EST 1.0 {tablet} activ e Ciprofloxacin HCl 250 MG eCW1 ([facility]) Ciprofloxacin 250 MG Oral Tablet Ciprofloxacin HCl 250 MG Ciprofloxacin HCl 250 MG 07/29/2020 12:00:00 AM EST 1.0 {tablet} suspe nded Ciprofloxacin HCl 250 MG eCW1 ([facility]) Ciprofloxacin 250 MG Oral Tablet Ciprofloxacin HCl 250 MG Ciprofloxacin HCl 250 MG 07/29/2020 12:00:00 AM EST 1.0 {tablet} activ e Ciprofloxacin HCl 250 MG eCW1 ([facility]) Ciprofloxacin 250 MG Oral Tablet Ciprofloxacin HCl 250 MG Ciprofloxacin HCl 250 MG 07/29/2020 12:00:00 AM EST 1.0 {tablet} activ e Ciprofloxacin HCl 250 MG eCW1 ([facility]) Ciprofloxacin 250 MG Oral Tablet Ciprofloxacin HCl 250 MG Ciprofloxacin HCl 250 MG 07/29/2020 12:00:00 AM EST 1.0 {tablet} suspe nded Ciprofloxacin HCl 250 MG eCW1 ([facility]) Fluoxetine 40 MG Oral Capsule FLUoxetine HCl 40 MG FLUoxetin e HCl 40 MG 07/29/2020 12:00:00 AM EST 1.0 {capsule} active FLUoxetine HCl 40 MG eCW1 ([facility]) Ciprofloxacin 250 MG Oral Tablet Ciprofloxacin HCl 250 MG Ciprofloxacin HCl 250 MG 07/29/2020 12:00:00 AM EST 1.0 {tablet} suspe nded Ciprofloxacin HCl 250 MG eCW1 ([facility]) Fluoxetine 40 MG Oral Capsule FLUoxetine HCl 40 MG FLUoxetin e HCl 40 MG 07/29/2020 12:00:00 AM EST 1.0 {capsule} active FLUoxetine HCl 40 MG eCW1 ([facility]) Ciprofloxacin 250 MG Oral Tablet Ciprofloxacin HCl 250 MG Ciprofloxacin HCl 250 MG 07/29/2020 12:00:00 AM EST 1.0 {tablet} activ e Ciprofloxacin HCl 250 MG eCW1 ([facility]) Ciprofloxacin 250 MG Oral Tablet Ciprofloxacin HCl 250 MG Ciprofloxacin HCl 250 MG 07/29/2020 12:00:00 AM EST 1.0 {tablet} suspe nded Ciprofloxacin HCl 250 MG eCW1 ([facility]) Fluoxetine 40 MG Oral Capsule FLUoxetine HCl 40 MG FLUoxetin e HCl 40 MG 07/29/2020 12:00:00 AM EST 1.0 {capsule} active FLUoxetine HCl 40 MG eCW1 ([facility]) Ciprofloxacin 250 MG Oral Tablet Ciprofloxacin HCl 250 MG Ciprofloxacin HCl 250 MG 07/29/2020 12:00:00 AM EST 1.0 {tablet} suspe nded Ciprofloxacin HCl 250 MG eCW1 ([facility]) Fluoxetine 40 MG Oral Capsule FLUoxetine HCl 40 MG FLUoxetin e HCl 40 MG 07/29/2020 12:00:00 AM EST 1.0 {capsule} active FLUoxetine HCl 40 MG eCW1 ([facility]) Fluoxetine 40 MG Oral Capsule FLUoxetine HCl 40 MG FLUoxetin e HCl 40 MG 07/29/2020 12:00:00 AM EST 1.0 {capsule} active FLUoxetine HCl 40 MG eCW1 ([facility]) Ciprofloxacin 250 MG Oral Tablet Ciprofloxacin HCl 250 MG Ciprofloxacin HCl 250 MG 07/29/2020 12:00:00 AM EST 1.0 {tablet} suspe nded Ciprofloxacin HCl 250 MG eCW1 ([facility]) Ciprofloxacin 250 MG Oral Tablet Ciprofloxacin HCl 250 MG Ciprofloxacin HCl 250 MG 07/29/2020 12:00:00 AM EST 1.0 {tablet} suspe nded Ciprofloxacin HCl 250 MG eCW1 ([facility]) Fluoxetine 40 MG Oral Capsule FLUoxetine HCl 40 MG FLUoxetin e HCl 40 MG 07/29/2020 12:00:00 AM EST 1.0 {capsule} active FLUoxetine HCl 40 MG eCW1 ([facility]) Fluoxetine 40 MG Oral Capsule FLUoxetine HCl 40 MG FLUoxetin e HCl 40 MG 07/29/2020 12:00:00 AM EST 1.0 {capsule} active FLUoxetine HCl 40 MG eCW1 ([facility]) Ciprofloxacin 250 MG Oral Tablet Ciprofloxacin HCl 250 MG Ciprofloxacin HCl 250 MG 07/29/2020 12:00:00 AM EST 1.0 {tablet} activ e Ciprofloxacin HCl 250 MG eCW1 ([facility]) Ciprofloxacin 250 MG Oral Tablet Ciprofloxacin HCl 250 MG Ciprofloxacin HCl 250 MG 07/29/2020 12:00:00 AM EST 1.0 {tablet} suspe nded Ciprofloxacin HCl 250 MG eCW1 ([facility]) 10 mg 07/29/2020 12:00:00 AM EST [...] {capsule} active FLUoxetine HCl 40 MG eCW1 ([facility]) benztropine mesylate 0.5 MG Oral Tablet Benztropine Me sylate 0.5 MG Benztropine Mesylate 0.5 MG 07/29/2020 12:00:00 AM EST 1.0 {tablet_at_bedtime} active Benztropine Mesylate 0.5 MG eCW1 ([facility]) Ciprofloxacin 250 MG Oral Tablet Ciprofloxacin HCl 250 MG Ciprofloxacin HCl 250 MG 07/29/2020 12:00:00 AM EST 1.0 {tablet} suspe nded Ciprofloxacin HCl 250 MG eCW1 ([facility]) Ciprofloxacin 250 MG Oral Tablet Ciprofloxacin HCl 250 MG Ciprofloxacin HCl 250 MG 07/29/2020 12:00:00 AM EST 1.0 {tablet} activ e Ciprofloxacin HCl 250 MG eCW1 ([facility]) benztropine mesylate 0.5 MG Oral Tablet Benztropine Me sylate 0.5 MG Benztropine Mesylate 0.5 MG 07/29/2020 12:00:00 AM EST 1.0 {tablet_at_bedtime} active Benztropine Mesylate 0.5 MG eCW1 ([facility]) Fluoxetine 40 MG Oral Capsule FLUoxetine HCl 40 MG FLUoxetin e HCl 40 MG 07/29/2020 12:00:00 AM EST 1.0 {capsule} active FLUoxetine HCl 40 MG eCW1 ([facility]) benztropine mesylate 0.5 MG Oral Tablet Benztropine Me sylate 0.5 MG Benztropine Mesylate 0.5 MG 07/29/2020 12:00:00 AM EST 1.0 {tablet_at_bedtime} active Benztropine Mesylate 0.5 MG eCW1 ([facility]) Fluoxetine 40 MG Oral Capsule FLUoxetine HCl 40 MG FLUoxetin e HCl 40 MG 07/29/2020 12:00:00 AM EST 1.0 {capsule} active FLUoxetine HCl 40 MG eCW1 ([facility]) Fluoxetine 40 MG Oral Capsule FLUoxetine HCl 40 MG FLUoxetin e HCl 40 MG 07/29/2020 12:00:00 AM EST 1.0 {capsule} active FLUoxetine HCl 40 MG eCW1 ([facility]) Fluoxetine 40 MG Oral Capsule FLUoxetine HCl 40 MG FLUoxetin e HCl 40 MG 07/29/2020 12:00:00 AM EST 1.0 {capsule} active FLUoxetine HCl 40 MG eCW1 ([facility]) Ciprofloxacin 250 MG Oral Tablet Ciprofloxacin HCl 250 MG Ciprofloxacin HCl 250 MG 07/29/2020 12:00:00 AM EST 1.0 {tablet} suspe nded Ciprofloxacin HCl 250 MG eCW1 ([facility]) Fluoxetine 40 MG Oral Capsule FLUoxetine HCl 40 MG FLUoxetin e HCl 40 MG 07/29/2020 12:00:00 AM EST 1.0 {capsule} active FLUoxetine HCl 40 MG eCW1 ([facility]) Ciprofloxacin 250 MG Oral Tablet Ciprofloxacin HCl 250 MG Ciprofloxacin HCl 250 MG 07/29/2020 12:00:00 AM EST 1.0 {tablet} suspe nded Ciprofloxacin HCl 250 MG eCW1 ([facility]) Fluoxetine 40 MG Oral Capsule FLUoxetine HCl 40 MG FLUoxetin e HCl 40 MG 07/29/2020 12:00:00 AM EST 1.0 {capsule} active FLUoxetine HCl 40 MG eCW1 ([facility]) 10,000 unit- 1 mg/mL 07/28/2020 12:00:00 AM EST drops 10 INSTILL ONE DROP IN EACH EYE FOUR TIMES A DAY INSTILL ONE DROP IN EACH EYE FOUR TIMES A DAY SOLD: 07/28/2020 [facility] Polymyxin B 58820 UNT/ML / Trimethoprim 1 MG/ML Ophthalmic Solution [Polytrim] Polytrim 20033-0.1 UNIT/ML Polytrim 82290-1.1 UNIT/ML 07/27/2020 12:00:00 AM EST active Polytrim 67892-7. 1 UNIT/ML eCW1 ([facility]) Polymyxin B 35791 UNT/ML / Trimethoprim 1 MG/ML Ophthalmic Solution [Polytrim] Polytrim 21022-5.1 UNIT/ML Polytrim 13327-8.1 UNIT/ML 07/27/2020 12:00:00 AM EST active Polytrim 96312-4. 1 UNIT/ML eCW1 ([facility]) Polymyxin B 81396 UNT/ML / Trimethoprim 1 MG/ML Ophthalmic Solution [Polytrim] Polytrim 26710-0.1 UNIT/ML Polytrim 68191-5.1 UNIT/ML 07/27/2020 12:00:00 AM EST active Polytrim 82199-8. 1 UNIT/ML eCW1 ([facility]) Polymyxin B 56561 UNT/ML / Trimethoprim 1 MG/ML Ophthalmic Solution [Polytrim] Polytrim 40448-3.1 UNIT/ML Polytrim 88522-5.1 UNIT/ML 07/27/2020 12:00:00 AM EST active Polytrim 24070-3. 1 UNIT/ML eCW1 ([facility]) Polymyxin B 27694 UNT/ML / Trimethoprim 1 MG/ML Ophthalmic Solution [Polytrim] Polytrim 25286-5.1 UNIT/ML Polytrim 57863-8.1 UNIT/ML 07/27/2020 12:00:00 AM EST active Polytrim 12983-8. 1 UNIT/ML eCW1 ([facility]) Polymyxin B 88528 UNT/ML / Trimethoprim 1 MG/ML Ophthalmic Solution [Polytrim] Polytrim 35231-6.1 UNIT/ML Polytrim 28738-6.1 UNIT/ML 07/27/2020 12:00:00 AM EST active Polytrim 10567-6. 1 UNIT/ML eCW1 ([facility]) Polymyxin B 35549 UNT/ML / Trimethoprim 1 MG/ML Ophthalmic Solution [Polytrim] Polytrim 59194-8.1 UNIT/ML Polytrim 94797-6.1 UNIT/ML 07/27/2020 12:00:00 AM EST active Polytrim 95182-6. 1 UNIT/ML eCW1 ([facility]) Polymyxin B 01556 UNT/ML / Trimethoprim 1 MG/ML Ophthalmic Solution [Polytrim] Polytrim 46776-5.1 UNIT/ML Polytrim 45209-6.1 UNIT/ML 07/27/2020 12:00:00 AM EST active Polytrim 42286-1. 1 UNIT/ML eCW1 ([facility]) Polymyxin B 05777 UNT/ML / Trimethoprim 1 MG/ML Ophthalmic Solution [Polytrim] Polytrim 02155-3.1 UNIT/ML Polytrim 40239-6.1 UNIT/ML 07/27/2020 12:00:00 AM EST active Polytrim 08079-3. 1 UNIT/ML eCW1 ([facility]) Polymyxin B 14707 UNT/ML / Trimethoprim 1 MG/ML Ophthalmic Solution [Polytrim] Polytrim 84737-8.1 UNIT/ML Polytrim 71750-7.1 UNIT/ML 07/27/2020 12:00:00 AM EST active Polytrim 03304-3. 1 UNIT/ML eCW1 ([facility]) Polymyxin B 13055 UNT/ML / Trimethoprim 1 MG/ML Ophthalmic Solution [Polytrim] Polytrim 70098-3.1 UNIT/ML Polytrim 75592-5.1 UNIT/ML 07/27/2020 12:00:00 AM EST active Polytrim 00973-7. 1 UNIT/ML eCW1 ([facility]) Polymyxin B 51461 UNT/ML / Trimethoprim 1 MG/ML Ophthalmic Solution [Polytrim] Polytrim 91257-8.1 UNIT/ML Polytrim 99983-9.1 UNIT/ML 07/27/2020 12:00:00 AM EST active Polytrim 44685-3. 1 UNIT/ML eCW1 ([facility]) Polymyxin B 31411 UNT/ML / Trimethoprim 1 MG/ML Ophthalmic Solution [Polytrim] Polytrim 69626-0.1 UNIT/ML Polytrim 93256-1.1 UNIT/ML 07/27/2020 12:00:00 AM EST active Polytrim 83061-6. 1 UNIT/ML eCW1 ([facility]) Polymyxin B 55857 UNT/ML / Trimethoprim 1 MG/ML Ophthalmic Solution [Polytrim] Polytrim 51882-7.1 UNIT/ML Polytrim 76980-8.1 UNIT/ML 07/27/2020 12:00:00 AM EST active Polytrim 93440-3. 1 UNIT/ML eCW1 ([facility]) Polymyxin B 31264 UNT/ML / Trimethoprim 1 MG/ML Ophthalmic Solution [Polytrim] Polytrim 71073-5.1 UNIT/ML Polytrim 21553-0.1 UNIT/ML 07/27/2020 12:00:00 AM EST active Polytrim 80423-6. 1 UNIT/ML eCW1 ([facility]) Polymyxin B 08059 UNT/ML / Trimethoprim 1 MG/ML Ophthalmic Solution [Polytrim] Polytrim 40410-7.1 UNIT/ML Polytrim 85195-8.1 UNIT/ML 07/27/2020 12:00:00 AM EST active Polytrim 44607-9. 1 UNIT/ML eCW1 ([facility]) Polymyxin B 67518 UNT/ML / Trimethoprim 1 MG/ML Ophthalmic Solution [Polytrim] Polytrim 07363-0.1 UNIT/ML Polytrim 90394-9.1 UNIT/ML 07/27/2020 12:00:00 AM EST active Polytrim 89888-7. 1 UNIT/ML eCW1 ([facility]) Polymyxin B 69631 UNT/ML / Trimethoprim 1 MG/ML Ophthalmic Solution [Polytrim] Polytrim 95082-1.1 UNIT/ML Polytrim 15737-6.1 UNIT/ML 07/27/2020 12:00:00 AM EST active Polytrim 19135-2. 1 UNIT/ML eCW1 ([facility]) Polymyxin B 14698 UNT/ML / Trimethoprim 1 MG/ML Ophthalmic Solution [Polytrim] Polytrim 80924-3.1 UNIT/ML Polytrim 21711-0.1 UNIT/ML 07/27/2020 12:00:00 AM EST active Polytrim 13494-8. 1 UNIT/ML eCW1 ([facility]) Polymyxin B 52913 UNT/ML / Trimethoprim 1 MG/ML Ophthalmic Solution [Polytrim] Polytrim 98843-9.1 UNIT/ML Polytrim 43133-9.1 UNIT/ML 07/27/2020 12:00:00 AM EST active Polytrim 45456-2. 1 UNIT/ML eCW1 ([facility]) Polymyxin B 57037 UNT/ML / Trimethoprim 1 MG/ML Ophthalmic Solution [Polytrim] Polytrim 25655-0.1 UNIT/ML Polytrim 94247-3.1 UNIT/ML 07/27/2020 12:00:00 AM EST active Polytrim 76219-3. 1 UNIT/ML eCW1 ([facility]) Polymyxin B 15018 UNT/ML / Trimethoprim 1 MG/ML Ophthalmic Solution [Polytrim] Polytrim 93588-6.1 UNIT/ML Polytrim 44634-6.1 UNIT/ML 07/27/2020 12:00:00 AM EST active Polytrim 57099-0. 1 UNIT/ML eCW1 ([facility]) Polymyxin B 06219 UNT/ML / Trimethoprim 1 MG/ML Ophthalmic Solution [Polytrim] Polytrim 18949-4.1 UNIT/ML Polytrim 10659-2.1 UNIT/ML 07/27/2020 12:00:00 AM EST active Polytrim 02969-8. 1 UNIT/ML eCW1 ([facility]) 10 mg 07/26/2020 12:00:00 AM EST [...] AM EST active Erythromycin 5 MG/GM eCW1 ([facility]) Erythromycin 0.005 MG/MG Ophthalmic Ointment Erythromy oleksandr 5 MG/GM Erythromycin 5 MG/GM 07/09/2020 12:00:00 AM EST active Erythromycin 5 MG/GM eCW1 ([facility]) Erythromycin 0.005 MG/MG Ophthalmic Ointment Erythromy oleksandr 5 MG/GM Erythromycin 5 MG/GM 07/09/2020 12:00:00 AM EST active Erythromycin 5 MG/GM eCW1 ([facility]) 5 mg/gram (0.5 %) 07/09/2020 12:00:00 [...] AM EST active Erythromycin 5 MG/GM eCW1 ([facility]) Erythromycin 0.005 MG/MG Ophthalmic Ointment Erythromy oleksandr 5 MG/GM Erythromycin 5 MG/GM 07/09/2020 12:00:00 AM EST active Erythromycin 5 MG/GM eCW1 ([facility]) Erythromycin 0.005 MG/MG Ophthalmic Ointment Erythromy oleksandr 5 MG/GM Erythromycin 5 MG/GM 07/09/2020 12:00:00 AM EST active Erythromycin 5 MG/GM eCW1 ([facility]) Erythromycin 0.005 MG/MG Ophthalmic Ointment Erythromy oleksandr 5 MG/GM Erythromycin 5 MG/GM 07/09/2020 12:00:00 AM EST active Erythromycin 5 MG/GM eCW1 ([facility]) 1 mg 07/06/2020 12:00:00 AM EST capsule 7 TAKE ONE CAPSULE BY MOUTH AT BEDTIME FOR NIGHTMARES TAKE ONE CAPSULE BY MOUTH AT BEDTIME FOR NIGHTMARES SO LD: 07/20/2020 [facility] 10 mg 07/06/2020 12:00:00 AM EST [...] EST active Sennosides-Docusate Sodium 8.6-5 0 MG [facility] ([facility]) Sennosides-Docusate Sodium 8.6-50 MG UNK 05/07/2020 12:00:00 AM EST suspended Sennosides-Docusate Sodium 8.6-5 0 MG eCW1 ([facility]) Sennosides-Docusate Sodium 8.6-50 MG UNK 05/07/2020 12:00:00 AM EST active Sennosides-Docusate Sodium 8.6-5 0 MG eCW1 ([facility]) Sennosides-Docusate Sodium 8.6-50 MG UNK 05/07/2020 12:00:00 AM EST active Sennosides-Docusate Sodium 8.6-5 0 MG eCW1 ([facility]) Sennosides-Docusate Sodium 8.6-50 MG UNK 05/07/2020 12:00:00 AM EST active Sennosides-Docusate Sodium 8.6-5 0 MG eCW1 ([facility]) Sennosides-Docusate Sodium 8.6-50 MG UNK 05/07/2020 12:00:00 AM EST active Sennosides-Docusate Sodium 8.6-5 0 MG eCW1 ([facility]) Sennosides-Docusate Sodium 8.6-50 MG UNK 05/07/2020 12:00:00 AM EST suspended Sennosides-Docusate Sodium 8.6-5 0 MG eCW1 ([facility]) Sennosides-Docusate Sodium 8.6-50 MG UNK 05/07/2020 12:00:00 AM EST suspended Sennosides-Docusate Sodium 8.6-5 0 MG eCW1 ([facility]) Sennosides-Docusate Sodium 8.6-50 MG UNK 05/07/2020 12:00:00 AM EST active Sennosides-Docusate Sodium 8.6-5 0 MG eCW1 ([facility]) Sennosides-Docusate Sodium 8.6-50 MG UNK 05/07/2020 12:00:00 AM EST active Sennosides-Docusate Sodium 8.6-5 0 MG eCW1 ([facility]) Sennosides-Docusate Sodium 8.6-50 MG UNK 05/07/2020 12:00:00 AM EST active Sennosides-Docusate Sodium 8.6-5 0 MG eCW1 ([facility]) Sennosides-Docusate Sodium 8.6-50 MG UNK 05/07/2020 12:00:00 AM EST active Sennosides-Docusate Sodium 8.6-5 0 MG eCW1 ([facility]) Sennosides-Docusate Sodium 8.6-50 MG UNK 05/07/2020 12:00:00 AM EST active Sennosides-Docusate Sodium 8.6-5 0 MG eCW1 ([facility]) 10 mg 05/03/2020 12:00:00 AM EST [...] Topical aborted Apply topically Two Times Daily [facility] Insurance Providers Payer name Policy type / Coverage type Policy ID Covered alliance party ID Covered alliance party's relationship to frank Policy Frank Plan Information UHC UNITED MEDICARE DUAL G [id number] Self [id number] MEDICARE A [id number] Self [id number] A MEDICARE [id number] SP [id number] A [facility] G [id number] Self [id number] [facility] MEDICARE DUAL G [id number] Self [id number] A [facility] MEDICARE DUAL G [id number] Self [id number] MEDICARE [id number] SP [id number] A MEDICARE [id number] SP [id number] MEDICAID [id number] SP [id number] MEDICAID [id number] Self [id number] ILS [id number] Self [id number] [facility] MEDICAID [id number] xxxxxxxxx [id number] [address] [facility] MEDICARE [id number] Addis [id number] [facility] MEDICARE [id number] xxxxxxxxx [id number] [address] [facility] MEDICAID [id number] Addis [id number] MH OPTUM [id number] Self [id number] [facility] [id number] Self [id number] MEDICAID [id number] Addis [id number] MEDICAID [id number] xxxxxxxx [id number] MEDICAID [id number] Self [id number] MH OPTUM [id number] Self [id number] ANSI-Not a Secondary Insurance [id number] ANSI-Medicare Part B [id number] ANSI-Medicaid [id number] ANSI-Not a Secondary Insurance [id number] ANSI-Medicare Part B [id number] ANSI-Not a Secondary Insurance [id number] ANSI-Medicaid [id number] ANSI-Not a Secondary Insurance [id number] ANSI-Medicaid [id number] ANSI-Medicare Part B [id number] ANSI-Medicare Part B [id number] ANSI-Not a Secondary Insurance [id number] ANSI-Medicaid [id number] ANSI-Medicaid [id number] ANSI-Not a Secondary Insurance [id number] ANSI-Medicare Part B [id number] ANSI-Medicaid [id number] ANSI-Not a Secondary Insurance [id number] ANSI-Medicare Part B [id number] [facility] [id number] SP [id number] Medicaid [facility] Part B [id number] Self [id number] Medicare [place] Medicare Primary [id number] Self [id number] Medicaid [facility] Part B [id number] Self [id number] Medicare [place] Medicare Primary [id number] Self [id number] Medicaid [facility] Part B [id number] Self [id number] Medicare [place] Medicare Primary [id number] Self [id number] MEDICAID [id number] SP [id number] MEDICARE P [id number] S [id number] [facility] MEDICAID [id number] SP [id number] G [id number] [facility] [id number] SP [id number] [facility] [id number] SP [id number] [facility] [id number] SP [id number] MEDICARE [id number] SP [id number] [facility] MCRO [id number] SP [id number] [facility] [id number] SP [id number] [facility] [id number] SP [id number] [facility] [id number] SP [id number] MEDICARE COMPLETE [id number] SP [id number] MEDICARE COMPLETE [id number] SP [id number] Medicaid S UNAVAILABLE S [place] [facility] [employer] P [id number] S [id number] MEDICAID [id number] SP [id number] MEDICARE [id number] SP [id number] A MEDICARE [id number] SP [id number] [facility](MCAID) O [id number] S [id number] MEDICAID M [id number] S [id number] Medicare P UNAVAILABLE S [place] BLE ANSI-Medicaid [id number] ANSI-Medicare Part B [id number] Problems, Conditions, and Diagnoses Code Display Name Description Problem Type Effective Dates Data Source(s) R41.82 Altered mental status, unspecified Altered menta l status, unspecified Diagnosis 12/07/2020 04:17:36 PM EDT [facility] R45.851 Suicidal ideations Suicidal ideations Diagnosis 04:17:36 PM EDT [facility] psych eval suicide attempt psych eval suicide attempt Diagnosis 12/04/2020 02:56:00 PM EDT [facility] E78.00 Pure hypercholesterolemia, unspecified P ure hypercholesterolemia, unspecified Diagnosis 11/20/2020 01:19:08 PM EDT [facility] K21.9 Gastro-esophageal reflux disease without esophagitis Gastro-esophageal reflux disease without esophagitis Diagnosis 11/20/2020 01:19:07 PM ED T [facility] E06.3 Autoimmune thyroiditis Autoimmune thyroiditis Diagnosi s 11/20/2020 01:19:05 PM EDT [facility] E03.8 Other specified hypothyroidism Other specified hypothy roidism Diagnosis 11/20/2020 01:19:05 PM EDT [facility] F79 Unspecified intellectual disabilities Unspecifie d intellectual disabilities Diagnosis 11/20/2020 01:19:04 PM EDT [facility] 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, not intractable, without status epilepticus Localization-related (focal) (partial) s ymptomatic epilepsy and epileptic syndromes with complex partial seizures, not intractable, without status epilepticus Diagnosis 11/20/2020 01:19:03 PM EDT [facility] Psychiatric Evaluation Psychiatric Evaluation Diagnosi s 11/18/2020 01:14:00 PM EDT [facility] E55.9 Vitamin D deficiency, unspecified Vitamin D defi ciency, unspecified Diagnosis 11/18/2020 01:14:00 PM EDT [facility] F29 Unspecified psychosis not du e to a substance or known physiological condition Unspecified psychosis not due to a subst ance or known physiological condition Diagnosis 11/18/2020 01:14:00 PM EDT [facility] E03.1 Congenital hypothyroidism without goiter Congenital hypothyroidism without goiter Diagnosis 10/31/2020 01:25:52 PM EDT [facility] F20.9 Schizophrenia, unspecified Schizophrenia, unspecified Diagnosis 10/31/2020 10:16:00 AM EDT [facility] auditory hallucination, suicidal ideatio n auditory hallucination, suicidal ideation Diagnosis 10/31/2020 10:16:00 AM EDT [facility] unspecified depressive disorder unspecified depressive disorder Diagnosis 10/19/2020 01:58:00 AM T [facility] T14.91XA Suicide attempt, initial encounter Suicide attem pt, initial encounter Diagnosis 09/18/2020 06:03:39 PM EDT [facility] F79 Unspecified intellectual disabilities Unspecifie d intellectual disabilities Diagnosis 09/18/2020 03:18:00 PM EDT [facility] R00.1 Bradycardia, unspecified Bradycardia, unspecified Diag nosis 09/18/2020 03:18:00 PM EDT [facility] R45.850 Homicidal ideations Homicidal ideations Diagnosis 0 09/18/2020 03:18:00 PM EDT [facility] Z11.52 Encounter for screening for COVID-19 Enc ounter for screening for COVID-19 Diagnosis 09/18/2020 03:18:00 PM EDT [facility] R44.3 Hallucinations, unspecified Hallucinations, unspecifie d Diagnosis 09/18/2020 03:18:00 PM T [facility] hearing homicidal voices hearing homicidal voices Diag nosis 09/18/2020 03:18:00 PM EDT [facility] 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, unspecified Developmental disorder of scholastic ski Diagnosis 09/11/2020 06:41:23 PM EDT [facility] F20.9 Schizophrenia, unspecified Schizophrenia, unspecified Diagnosis 09/11/2020 06:41:23 PM EDT [facility] R00.0 [id number] Sinus tachycardia Problem 02/28/2021 12:00:0 0 AM EDT eCW1 ([facility]) F20.9 Schizophrenia, unspecified Schizophrenia, unspecified Problem 02/19/2021 01:00:00 AM EDT [facility] ([facility] ) R32 [id number] Enuresis Problem 09/18/2020 12:00:00 AM ED T eCW1 ([facility]) F79 [id number] Intellectual disability Problem 09/11/2020 1 2:00:00 AM EDT eCW1 ([facility]) K59.09 [id number] Constipation, chronic Problem 05/07/2020 12: 00:00 AM EST eCW1 ([facility]) F20.0 [id number] Paranoid schizophrenia Problem 05/07/2020 12 :00:00 AM EST eCW1 ([facility]) 528.9 Other and unspecified diseases of the or al soft tissues Other and unspecified diseases of the oral soft tissues 02/21/2020 08: 33:50 AM EDT [facility] Surgeries/Procedures Procedure Description Date Indications Data Source(s) Imm: Flublok Quadrivalent 18 years & older 0.5mL IM Influenz a 02/28/2021 12:00:00 AM EDT eCW1 ([facility]) OFFICE OUTPATIENT VISIT 25 MINUTES 02/25/2021 12:00:00 AM EDT MEDENT ([facility]) 25 HYDROXY INCLUDES FRACTIONS IF PERFORMED <td>VITAMIN D 25 HYDROXY, TOTAL</td><td>Routine</td><td>11/01/2020 5:33 AM EDT</td><td></td><td> </td> 11/01/2020 05:33:00 AM T [facility] LIPID PANEL <td>LIPID PANEL</td><td>Rout ine</td><td>11/01/2020 5:33 AM EDT</td><td></td><td> </td> 11/01/2020 05:33:00 AM T [facility] EKG 12-LEAD - CMAXX REPORT <td>EKG 12-LEAD - CMAXX REPORT</td><td></td><td>10/31/2020 1:09 PM EDT</td><td></td><td></td> 10/31/2020 01:09:26 PM T [facility] EKG 12-LEAD <td>EKG 12-LEAD</td><td>Rout ine</td><td>10/31/2020 1:09 PM EDT</td><td></td><td></td> 10/31/2020 01:09:26 PM EDT [facility] EKG 12-LEAD - CMAXX REPORT <td>EKG 12-LEAD - CMAXX REPORT</td><td></td><td>10/31/2020 1:08 PM EDT</td><td></td><td></td> 10/31/2020 01:08:09 PM [facility] EKG 12-LEAD - CMAXX REPORT <td>EKG 12-LEAD - CMAXX REPORT</td><td></td><td>10/31/2020 1:08 PM EDT</td><td></td><td></td> 10/31/2020 01:08:09 PM [facility] EKG 12-LEAD <td>EKG 12-LEAD</td><td>Rout ine</td><td>10/31/2020 1:08 PM EDT</td><td></td><td> </td> 10/31/2020 01:08:09 PM [facility] EKG 12-LEAD - CMAXX REPORT <td>EKG 12-LEAD - CMAXX REPORT</td><td></td><td>10/31/2020 1:07 PM EDT</td><td></td><td></td> 10/31/2020 01:07:40 PM [facility] EKG 12-LEAD - CMAXX REPORT <td>EKG 12-LEAD - CMAXX REPORT</td><td></td><td>10/31/2020 1:07 PM EDT</td><td></td><td></td> 10/31/2020 01:07:40 PM [facility] EKG 12-LEAD <td>EKG 12-LEAD</td><td>Rout ine</td><td>10/31/2020 1:07 PM EDT</td><td></td><td></td> 10/[facility] <td>EKG 12-LEAD</td><td>Rout ine</td><td>10/31/2020 1:07 PM EDT</td><td></td><td> </td> 10/31/2020 01:07:40 PM EDT [facility] URNLS DIP STICK/TABLET REAGENT AUTO MICROSCOPY <td>URI NALYSIS WITH MICROSCOPIC</td><td>Routine</td><td>10/31/2020 12:47 PM EDT</td><td></td><td> </td> 10/31/2020 12:47:00 PM EDT [facility] OFFICE OUTPATIENT VISIT 15 MINUTES 10/29/2020 12:00:00 AM EDT MEDENT ([facility] Immunization: Flublok Quadrivalent (18 years & older) 0.5mL IM (Influenza) 05/07/2020 12:00:00 AM EST eCW1 ([facility]) MRI Brain W/O Contrast, Followed By Contrast 0 12:00:00 AM EDT MEDENT ([facility] MRI Brain W/O Contrast, Followed By Contrast 0 12:00:00 AM EDT MEDENT ([facility] Results ID Date Data Source [id number] 2021 09:52:22 AM EDT [facility] Name Value Range Interpretation Code Description Data Catrachita rce(s) Supporting Document(s) Discharge Summary [facility] KXOMXm4pQeCETvKo98/BKYqrHRCmg1IePUyjTOx7WGajNPLjJ6ZsGNO8zW8pULJ1XOoMOeSeOpZwGDHm lbm [file] MFBpVZecZMKhLoZaWPIkTwH3IbCfDL0XTl7MAoN3NVV6xAAqEg8MJMrxGGlNHhDjXO3BXLh= ID Date Data Source [id number] 02/19/2021 07:23:42 PM EDT [facility] Name Value Range Interpretation Code Description Data Catrachita rce(s) Supporting Document(s) Thyrotropin [Units/volume] in Serum or Plasma 3.970 u[IU]/mL 0.270-4. 200 [facility] ID Date Data Source [id number] 2021 03:06:58 PM EDT [facility] Value Range Interpretation Code Description Data Catrachita rce(s) Supporting Document(s) Zonisamide [Mass/volume] in Serum or Plasma 10.0-40.0 L [facility] (NOTE) Det ection Limit = 2.0Performed At: [facility] [id number] Sanjai MD Ph:[id number] ID Date Data Source [id number] 01/21/2021 07:51:51 AM EDT [facility] Value Range Interpretation Code Description Data Catrachita rce(s) Supporting Document(s) [facility] NTTSYt3vEhYDVhTih7EdOkBiVRSiKH0grce7W7B7bGEmP1JfsIBon6yhY3HqV1CfMZFrGPHCRY5QpXDk jb2 ZmxbskV4Pza1PYx127QF3OgP6mgw0Yg6jtRCXkkYjtCt8yqrSnIirYAMN8NCIbc0JmQOezTDzcQMCuIp 8xrJIpD5KrjJwfAQSqCXdxUAPuT63bpQOlE9nIHDQaVN8od7YrbhyeM4njfvObp7pFltWcLGgtZrHqEt NkRBQfyjTbY3ychIGngSgePL4+PE4br4KxEuJtFGWd HV0yvip0V5E2tWBwY5JnonIyV5F1NhT6mLQoF3C0aLYfLG6OMK1sOT4UMmDqB8QpL17rzI6gHV7FtP4Z nyBvEL8ad3GrkhdkJ5Yjl0JHj707AK7PWQx7DEIiV2FzCv3wNP0+LX0hn8JzPvFbBUZtOI2vjvf3Z0G8 xUMeR1RvshLiN7X2IkG1pGQqO4D7oHGsUL7PHY2cEP 4AKCGyR8SwM22ebH3yVQ8ReZ1EztSaBT6zp2DpgltdL0Pbt5CCk122OC8RHTn9XKNeK9IwZ9ZvlMI9CA 4+KM8vp4PoDfCpLQSkAL5cazt4O3J5mBZfC5YkqiOtB8F8ItB9vGLnL8G9xNHxIK4FPX8aZW1BXkvpT6 QiW84fcL4yUY8AxR1ArtMzKR6xr1GmgrprH7Mwc6CO n909CQ2DGTl4PVFfV5NsWn6qQO9ooWujoGR+LcJeYY3anijhJBNrAYXgQqh4UM6MpLAfYL1Dc015KA2X iKA8wUDxGM4CrUBvBKIzGkUnPZXrF8SgUE9IghQyCZvuAtUdG7yfAP2sfJWoT36pvR1fDS5WTZOcAl6l uIVrJ723cgciqp6+IN9wc4TlZqHwSwEcWK6btog2D6 P7mDLmI0PvywKjW1R6HjE7nLZnD9U4gDYcFR6RDW2zLE4VYxTsE1SvH08ftT4pSZ6XpA0ApuRuOD7qo9 TxcvmjA4Tgq1RXe751FI6Uv4ExpLLdAKPnnGO+IfBeRQ9nhkxwDGSuPGQyXmd6SM5ZgGOeEL7Pc037YS 0RwRA4sYLiHM4XhRCoNSYdQjRgSXZbH1heYV6SnbId WLhxHhLeO7boYK8hyDQyG23mxX5uVG4FSTXkYi9cmFSnW973tppxwa9POeomkHLaRh9cyiDaUbgHAMV3 IERme3OtMIrxFUrqXBEbVe2noNVpV8LplDtdUUXhTUxmFTCoX41jzHPoL9WARJLqJF9tm6KhzldeZ4au ekSpx4oCvwKtPNvlMvVyXdSlKFSwcdTsM3EfzUBwVG IkTz4xRI0dwVaalLM+NaSyCU4hrswvRJQhFTMmFwp0IP7RcGEuKA7Es280LS5PySV9hFJjZO6HwIFnXN DuLaJlJVYwLBJtWZ7JxuDsQRyxDbZdU3syLW5roYBaI25ywM0jVI6ZRKIlPo6deOMmVQryFJRpCe5tLU 4+QgAiIO8wrwfwYKSdOMCdAdr5XG7QtSAiLL2Pv837 VO2DzXJ5mWDrVU7AbMSvVBGjKrLiSJLuOUIvTO9BfqKlVOzdYsVyS2unLW2vmTPiP74ecG9oLY0FLICz Em7pdUKaXZjhNRStRz3zHJ8+VF1iz5EmTgVuZsAnJI2mmaw4M9R4wJKtE4LxpeUjB5I6MqG9hXMoP5N0 dPGlXO7AIY4zRP3TBCDsO2YpT65plC1bUD5ZkR4Rqz KiGU0zz2AeewnaR0Vpb9KRe849EG8NnZ0wui1RkASevWP+AbSnEB5dsbccMLkhTNVfIjc7LR7OKRU7PD IjRwGaRORoCAIqTGQdJ7fTVEgjBPSXDY5AOxdvBHFzQVKKFB2LACVmSLQzTBKpT9MOISQiSJRmQrRsN3 tcIVLyUVGXGG6LVdbdFVPeLJLUXC2GHOJdJIIdQLDg X5ZDEVA7GPKiWrHpTCepUObcUCYQZW6TCubbUzMdYCQ+GhPmJC9zlpqfKsDrUA9vchz2A6Yzm3LTIABj Bs4YDSZcD4CpqLSwVD3La676NNV6VUBpBj2+RB7hw9KxFnRkZDDkp2IwMGsxUViuUDAaNMWyUVUxGQVp tVVTu1miYnThVLC8TZRfFugpJYOlQSZoBF88YXLrPF FSKF4EWBKnlZYxPZNdPcLrJTZOWY2Sg271GX45ifCtXTPhBURuW6MzkYR2FEE3CNOkER3lx8FgQGexGe 0dzaBfZpePSmHeHUEhEka6MISvXBZeF4EnBBPpXFs9LU4FwAm1NBVtY8MfFOBeKYFnx1NvCd7Uo4QlCA RdLziwbH22y6P5w4RW281ic4LClO9paVGVAIcCnPI8 KJBE3C3Skp/pEAaFqzX5Lbix2rMLsqfoy1GB2+ss/5T/utTVxj//1X0o/7jVv3//9//0z79s/PP//group home +Pvvn//+Pvxf//pv/+Nf/81//E//tFr++Y//81//3X/8y/5+QlVGiv7W/fxvj7r/+Z//+3+NUf4x//vn P/1zHsf8+/ff//wv//TIzOUsN7FX5mZJCxm2NU9ADa VHwTxiIpjMhlyGHmW8HhgcDViBUqr2RhyxMo9BcIqQv2VgagAn5DsbaYp0cwtkSl9v7tyBj3e7agTfWy 6f6CnYlyr1WiorYu+A6YiRs6W9MyTnFw6YyDoBw4IzcgXr6XrwfTn4bcvpCd643ixJy8800iMgQ3505U zMje83xefjI0+o3ytTj7s2BtXeEy3EtNvZf7UyafKa 7VmjtZt3FavyzZoBXQCpqeOv2MnnsQm2Kgbrn16z1PAi6Agax08c2HEk9Gmis63+8vZqY4l6EqUerBmS I355Bwp8m71Mcm6m27BfJ+n1hfiIak6dOxBzO1dGtx9kwHmJr4CakpRy7RoymNh4XwkhLu5E1xqKj4Q5 XnMoWh6J7PmEetN33w/pauPz95Xc6277jkf5x22end 1f71SdI+d8piiKee4qftOmH2hkeQtJGcw7BV1Q81/FPIg0m0+xuXBwLj+nessa+VuGB6E33HOhrvV5TWUgR dQiueY0dLoAubZ0+VHz0RA/rXJzxhFg27LjNteiWNZkdzXZvR/XBOJhO3hjfjAEktWeKWSuudIkl8bBs MlsfrLtRLZ+tGTtMR+eImRmNgPMzFSE/vhJkZyYj/s [file] bDf480+HBrff1i7/0bvu/8jByruMb52YJr2119/u03 H775pw/sD3884eks9w3/9/XX33x6+/DbX71/j3Pf2e5Gq86/+Dp552fo/+O7D59/+ukkOSb7DfPT94j3 T++/ePvnT5//+R14Bvq523j855nqfk2Sv6+/+9VLCj/61c0ki7y9k/z8y/e//ge66NM85zFSbO/hospice 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 therapist/+n a4qoAdy5I/jy/auN3/z6N+8+aKi6X746+vJ+4O2bf3 lCyZ8q8zDp/+XHxexjZ/9/mvD1N//yEuT7j++//vSS1d+00Sxd250k1DmKaZBtj7Gt37/78Gr/3Um++v j2j+8+vp7+idvvsXXf/aRjep8A36/ct5Ml/N++KapOn5dQz3Aio/jFL/9dL1xrotd82//DX/nwmlKwXC /4+01Gl5je1jO129g/A3Bbiw+7gsX0lqPtIJLUbD34 QUl0XK2Qtq8bS93EyWrj8mrziB/xK4qTtc36+O7fv/oRB865l3a//r8/o7g906WEM6+9/dcvX5/4n3/Q 7clQzd3/85/+/Q9/+f711C/qg611lp15+6e3z//j2z/9jz9++wc+f4Q5r7R+8je/BroP/ziiwHGx0M6e 1H/33Z/+0uo4f1t1m+9+VDuOKPbTM0Ajj18/649LP9 hLID8u/YC/+fD2hz/97bu//D/f/vEnij+y/RKnu0RH5Dl/Uh3nbE2+vv3b/3rV/Q9//tOPi9/H7/2o+C xwpo388n/189ae5gppI0V6Ia+h+/pB6buC+3DM6Cc/lohOQTH7w0V3v72qy3P50bxbsw7w8gp/97u//v 4wbx7qML//5vNPP9+BBf/tP73+nf/7L//tP//o7vMd /vG777/94w++8PoB/vm3/+v33/711dl+SCRU6qM//EoIx4lroy817//+2UeIH/785+8/695+dMNp76/+ /PvPhPDeVhQJGPYs+d3v/+NPf/d6u96sdit3uBgiz4slm6w2a475dkt/++ybv/3Hd3/5+7wcCGh3+Jtf //f2zF76cO/mOas7y21jY2D86brM+s23/+U5K9n562 [file] PqzoGw6meGA4BOVpDxxOEw3Jp5AloeH2sbEkJpF3FaDaGgUxGC9N ID Date Data Source [id number] 01/20/2021 08:40:03 AM EDT [facility] Name Value Range Interpretation Code Description Data Catrachita rce(s) Supporting Document(s) Consultation [facility] KNOJVx3oEeSPGzQx53/DQRcsHPPxd0QuVGutPVf9AKpdHFYuB1MnGOY2kA5pLZQ6BRhAZpWbMfDnAUM5 lbm [file] ICAgICAgICAgICAgICAgICAgICAgICAgICAgICAgIC AgICAgICAgICAgICAgICAgICAgICAgICAgICAgICAgICAgICAgICAgICAgICAgICAgICAgICAgICAgDQ ogICAgICAgICAgICAgICAgICAgICAgICAgICAgICAgICAgICAgICAgICAgICAgICAgICAgICAgICAgIC AgICAgICAgICAgICAgICAgICAgICAgICAgICAgICAg ICAgICAgICAgDQogICAgICAgICAgICAgICAgICAgICAgICAgICAgICAgICAgICAgICAgICAgICAgICAg ICAgICAgICAgICAgICAgICAgICAgICAgICAgICAgICAgICAgICAgICAgICAgICAgICAgDQogICAgICAg ICAgICAgICAgICAgICAgICAgICAgICAgICAgICAgIC AgICAgICAgICAgICAgICAgICAgICAgICAgICAgICAgICAgICAgICAgICAgICAgICAgICAgICAgICAgIC AgDQogICAgICAgICAgICAgICAgICAgICAgICAgICAgICAgICAgICAgICAgICAgICAgICAgICAgICAgIC AgICAgICAgICAgICAgICAgICAgICAgICAgICAgICAg ICAgICAgICAgICAgDQogICAgICAgICAgICAgICAgICAgICAgICAgICAgICAgICAgICAgICAgICAgICAg ICAgICAgICAgICAgICAgICAgICAgICAgICAgICAgICAgICAgICAgICAgICAgICAgICAgICAgDQogICAg ICAgICAgICAgICAgICAgICAgICAgICAgICAgICAgIC AgICAgICAgICAgICAgICAgICAgICAgICAgICAgICAgICAgICAgICAgICAgICAgICAgICAgICAgICAgIC AgICAgDQogICAgICAgICAgICAgICAgICAgICAgICAgICAgICAgICAgICAgICAgICAgICAgICAgICAgIC AgICAgICAgICAgICAgICAgICAgICAgICAgICAgICAg ICAgICAgICAgICAgICAgDQogICAgICAgICAgICAgICAgICAgICAgICAgICAgICAgICAgICAgICAgICAg ICAgICAgICAgICAgICAgICAgICAgICAgICAgICAgICAgICAgICAgICAgICAgICAgICAgICAgICAgDQog ICAgICAgICAgICAgICAgICAgICAgICAgICAgICAgIC AgICAgICAgICAgICAgICAgICAgICAgICAgICAgICAgICAgICAgICAgICAgICAgICAgICAgICAgICAgIC DeLSNzSSPiNAz6T5tnBGBtFTYcZO9oTPv7By0+QGcLTqPjYHQ2bySlbK0WDL1dd5VmYVovEFQso7AzAH o9PI2LBDTfNHgvQG7CSEhtcj5YOEOmRYOsqDZRr2kb VwMrYUN1OBYlQawhXL6JVRWrF9sbfoIhENXsLSLJFFeqATICTHbwUXTPMOCcDVEeUwQpNkDoXBQnYT9P FXBfL936qfKgEZ4POj7BKcVvYT3nqc0QGgKbBTCuJszNLzn7ZPvrMX2EtULinUEnHYFpWREALmSkI2qe t1XaTxDvTYHJNTomBB3Nx5PseCFyIQq+Wr7GDX2da8 YvKXuvOHBuEG7mnu1AERhMDwDaN2GlpFsqKWEndqK9qQIpROQ1RMhpXtDbPRxoXxIHtZCiwYfupOkvMW NdBAHnIQ2vKA2lMFEjJKM2FxVeNNKJIY0MSAVsZBIffAYdCASaYZBKVM3DPOibMOD4TOGnisHmnDYiBY jhYR1HQFMoewTlBbJrGZOFGFw+Oc9AHS8kv8WvLRmx MmZnBP6lpj3TFLaPSvJgS9W2xDZjK7Z7FKuvRj6WPPSkFKMlZpiuSGIKMOhlJO2FVT6xvsE2XZ6QjBQm OQZuFCKjaWQtDRw5Q49otRUwVRnqCZ6NVPX+Sharon+Kt1WVCJjWOIsGMVxCaWbSLPCGkPsL5BxW2QJi4Eu Z3DbBW78oPwmvyYjXSjdNP0CMY2yQQElVYRDUU7ExQ JnuE9oadDnSMEpGKGWMeIbU78orXOwVBBzQEJ6VGFxRo7CJKYvX4KisnAyoYbuwfHiVWDoWZARZX5PBD mnffPnjEFjbRldFT92jFcwTD3TZq0EPqMpHW7wro9KwVQyAm4RZSYhRa5EPZTzFKRzROPuBKN9XCUtBg RwIWlzPSQkMJJpUVQ2JVXfRLRlJD0GYzPjSLIlLTU4 WkyvCQVnUPOqxs9HWHScSBS8EQhmWeMcTPBoYGFwAIdfNZQsZVLpYSC9GPFuHQLfVN3LAeDgONOlMHP0 HhDdVZEhILJrar6NZVSaUFLuWaR8NGAlCZAtSPYeRCkvBETmNKI1GMY7ALLlFCZjGJ8BAhZtYDXiQTN0 YYIiMSSlUXQyha0PMXElYXTuGQUuVYSzZOVwWSMsJR xtGTDwJAFpFjL0JLGiSTHwSW1ILdOqXRIyKTP4GkzvBNNoOIPbuu2ARTAjPWJzBlL0NOKwWIVhKZSdQZ pnCSYvKLJ2JIZ9BIMjJRLiTR4KGcLbHNMqMARqOWIjBWVfEBOzvv3CXKQhKUIoLlZkYgIgDEBuCKTrKR unVPByFMB7ABPjXOEuPTHzLE9UCqDdBIUeUNF2AHGn GNBnLWJnfe9DVAGcORFkLfO4JmDgNZSrFUKfYTdqNFClWOJ3XsB1YNOmJIXsQN5HWrDwLZMdCXr7MbBx YSVjULCmvm1GIJOwPHR6RZjgNfHmZIMbNFRjDWasIHMdAZFpKZItSDMrIZEyXZ7HCkIpURTzLCL7HDob CEPwBMJnjg7CLBBpEDN9JtA4LPFmEHDmNFSqOAlfKR WkBBInXoT3BTNpRRGkZW5QJtHaXBUrHMM7FOvaGLSqWWTlwa0GKTTsCDO6Ked2GbXvWSIaWSFuSBduEP ZsSUSfGTG4HRCiHSYcRU2TXkNjRNUcGYDcCeKxDRLvLEUywv5SDRDdUGY5HMruWxJkKLXuIXKkLHigVT VgWMM1YMQ8AXTzHZIjNY7RFyWxDVBoYQJjAUSdKMZt GUUaul8NaVSyqEbbcw1FOFkYQk9IbYrvGYHoHOxkEv5cfRStXnTiTWPDZc6DouHwNRBlUZZOMTsrGAPg EMDmJlI9YTUyABWkAzRdBkBbPOA5XDOcHwI0UXUsOJZ1FrP2CFVjUKP5UDV5TzTzSlW7H8YaApq0OyDj MYQjB9GiIAI+VK8oEZl+Yi7Ox3NpwfP0uqDjKKs7EhA7MR1TVLLUO5WJBa== ID Date Data Source [id number] 01/13/2021 09:19:06 AM EDT [facility] Name Value Range Interpretation Code Description Data Catrachita rce(s) Supporting Document(s) [facility] HIYRVf9zMhQMMvPbu1OkNjHxSIBgXV7owdc5G3H4cTWzB6EpoSXjm0lhA2KtS0VrUTHyVIXRZC1IdXSt jb2 [file] zm951uixrE4/v85ab8iU0zi1oE+rr+90f8j82Dxy/6aNd/Treating Plant Operator+Ps7v+zwjXa+fD71+WzeRT91iMX+3vQ xD+rC2SoyCW04k5YafTlnI9hQO/tW1XemJF6ldl8wb Dc/3fYO+Kl0Bpj3Z49drDT+g/IF0w/dLhwstruMaf5XYmH+tax/w57979C3trq1EYGwerm4E3Y5/Q1+H ij9q4grXQ5Xyu1Gzn3Wc+C0T09xBsh8xHcZ53R++b/pDehP1QlkkX6zwI+u5DcH6sEEUgkQ7J+8byoE/ W9s2efN0bmQ/54o5j4Pj/L4T+o8T3Re03Nrn98I+S2 /56+gr+wvQe2q31zO8eek6omB2bzque8hfkrMX+iH31Tpm5Kkq928odessv2M19cC61Dtu4pC39Fif/X 2u1azmQGNR64unurhr1/obgW197n36e6gF4iE7ikTP7Z8dwaQa6tjwujQSnvSzmH93yqe2/x3rurVPgx /v3/75nBt/rk1jR99egKr+v7+Lttt+NfhVPm+8f/mV wq93Fe2wc3Mbqih8z/tnldt+Et0yu9CmFlgIlsgu2+khMhlmrg5bfdulwtqx/8nqg2l5uz+M975Cac+s wa/i/iKFWP7yzbr/+FU+i6xkzF29Fgnz9Pdex53/IacP32rZgv5/e0Xuf73X01FeQtkosvxflS++5Xfo 30Krh61l+ga/ep6R/rO59gGpb96yfaYeXO/25+z1V9 +4Nekc/tD3UX5T5itfNb032qx6NPv/uv6f/PnEEaiCvQ9SagTx0COopc5xM346RxwgUiisRN02X7apZi 56uKNF2Oq2nfwd/OTzcaW6refu+5lOynn+6HtmeX/zaUagSZvkSvp9ch4b1r+3f1EEit+/+khwjod2Zb i47A4nF+nx7LtuYBo+tp8E2xj//JnziR3aA2+O9w+/ aj1O24H2049gLy0FcFtc1P4gEjj/a/QihKMob2N60gUhHaebB99TqmF9+2d9Iy2k1KjkH8E/E47d0Pe9 zsL7G++j/Qa/kny+/ca6MoNiiy35CJXGzDKB2cGI8af7FvezyP+e3azevC7cPbgfK82P+w1+9Tzf/vDw b8yPk130b4Wv5+KMw6XpOAIQ9sr6pnj/PC/m4Ca0o2 /lsyMd+d71j0Dd2wn77QB+wa/yG/s0ofY3V/PrmwFbs3WtKi+KbwO/0oXxCPzqnMx+p4LH73mbckMsUa 8Ffw5+QZ3cPP4f3Ayq31Dso+HPG/5rww8Mt1L4SFC0Bfw/35yyg3aA+z4j/fJn3Zc/754sPi4+lee0Z8 Pz5QMb/CO6aIMfYspON7/jey5F31AFC7xuR6296o++ zzPSb3/Vg1/hff3unyzTHe4CR7yMbw+z3Xcc7/vbH/qyIrkp9A5dgZ376CuPx44gdn6yRjw0289CnW/+ +Brcee59u+K1mtUI5eoHQlXw2qSiW/Lv18ofcnwu/FwIEp9dd+BXYf/gV/V4KJ96gdWQ2jz9Fcxqyvzj 18ufe/NanLkTEd418gOTyQP2pxWi7ReCz1u/4v2F9I XyN+g02Veq3s/5whf3B3UV4z26+67a813so++3/fZ+4xu93/wL59R4E/ctz31O9s17+0J4ewakgJ+ko/ 6lbdBK2TK5tdL+1ced//Is1lx36HD2zfy+5jM3ct5V4ripN2Ss0Mi+3xG/3ynqzoEtrkNb4dko68Ftm4 AX8auO+FVH/Xglfft3yj9Ox8cotI9XcgJ2UpmpW77x u/UqorB951j1eFAU7SM9roTo+zk69Ik9J4/vLkiHPyN+1TN+Fe/Dnx2/r8OfEb/qDn0Rv+ruKH/ie+a1 m+J0ntnbM+Xc+EaP+FW8P+HPE/pG/Mgm7azP1RfTkcu1Zswof6N3yc83uMnGn2Q16ld5hb5IkF+J9jvh zxO/78LvuzD+LvTPEb/KZ4y/C+Xm4EkbAd2HfN+8j/ 45+FW+70asjN1+aqF/Vt9I6jhIw9IDlrCQ3Vj3HmYt3UdXr7rvO/hr0s5vbotfp5Z9aiAiolV3mpB39j BnxK/6Rn8V/Cp8Zl8+2fddL+g4tdJ9ntFL7U60trS/Ou+B8PvJN5ZishyGqF92ylFixh/tjkcj+FXWZS wpxtsZf0K09g6ts7QznioWbsa1/czeDFXixUOja2R7 5UPRvaF82Mz16FWS9piqn+REdVpYbkZ348DYrv5JecGVltgKWL1w12dzHgvuNzqoq0OhUqSEZw/Ph1/N GUd/z/xoxfOZH+XR0bkwxRDpVn6nxjB9B+/6wgh+fhlRx7jrY4oXjoEdSG09fUmJ88P2Bv/4Rgtdvvxq JjlUU1xoS+he1PqDoXiagnFLtykrt2n+Ty4mR6zwnS kHPIv9dlhu1uSpmMz1/fj+L7/FXYl5eiqY2F/SowUv04MDrtbscHtKGEx8qja8CemK77Qce9juVSpdm3 lne/o5XQ4992PUzN5F2Fesc464Qy/D77gXP46++rLW6rUlEI75qZ12cz68u7Is2OW1AedpkK+PO/8d48 5/R/SdUT4857CO8q+APw+614POz7QG+e6T47G0hk65 m9puQNvxR28nz/477M5/v6Dni69Xiz1tckegD+oQ05Me7PiKWw8/ynZkE+nT7vNC+kE4mubC9UtLMxLR A/GrEfwq/D/6PV7xh2n9edz4S/YwLU57VZr9yZb90+nQN+NX8c7E+/Eu3iOg6Mh6TE87DC/0iF/ledvo r+R9viEG3eci+FWewlWk3/jVOR/8Pg+k3/WFgfjVQP udWW75Lgdodi91bo+eGI8m/KySkkw9jwVxM/k5sF0Qab+leB+/7+bIj1e37TxhzjbOynwxlYf+NNadD4 7leH/i/zrwx5ty28SUJ2MvscPAvY05QBbbYaHnX847KC/+MPjVymd7+9LgV8/m1Cx41t8s2q8/MYJfPc 94H/2h3JuPfb0+qSPY0QpC03T7Av/S773Nm1+6Bb96 [file] RjlgyDEmpVnnODESDfD3UfEGDPFFA1R= ID Date Data Source [id number] 01/12/2021 04:58:09 AM EDT [facility] Name Value Range Interpretation Code Description Data [facility] [place](s) Supporting Document(s) Color of Urine [facility] Clarity of Urine [facility] Specific gravity of Urine by Refractometry automated 1.016 1.003 -1.030 [facility] pH of Urine by Automated test strip 8.0 5.0-8.0 [facility] Protein [Mass/volume] in Urine by Automated test strip Neg [facility] Glucose [Mass/volume] in Urine by Automated test strip Neg [facility] Ketones [Mass/volume] in Urine by Automated test strip Neg [facility] Bilirubin.total [Presence] in Urine by Automated test strip Negative [facility] Hemoglobin [Presence] in Urine by Automated test strip Neg [facility] Leukocyte esterase [Presence] in Urine by Automated test strip Negative [facility] Nitrite [Presence] in Urine by Automated test strip Negati ve [facility] Leukocytes [#/area] in Urine sediment by Automated count 10 /HPF 0 -5 H [facility] Erythrocytes [#/area] in Urine sediment by Automated count 1 /HPF 0-3 [facility] Bacteria [#/area] in Urine sediment by Automated count Non e [facility] Epithelial cells.squamous [#/area] in Urine sediment by Auto mated count 5 /HPF None [facility] Crystals.amorphous [#/area] in Urine sediment by Microscopy high power field None [facility] ID Date Data Source [id number] 12/30/2020 09:14:05 PM EDT [facility] Name Value Range Interpretation Code Description Data Catrachita rce(s) Supporting Document(s) [facility]spital YGNFKs2pVsWZGuSbi5GpZjCpGRTtUC4upqd7I8C8gKGwG4YhfTMir1dxV2VfZ3JpMQDnUWQSFV0GjSPi jb2 [file] [facility]/NGT0MFFV5oeCmvzYJDyn0QY2JnOjcUs8LT+k6QzmJjcE0hoUHYJx52SKrRhhBxeIoT96jjRAZr+5 [file] 5/Reyes/2RM9w7g/7CQ8yo7uQJ2qEXtL6c8QOOifU0CVoC/JwOsu9T/GdM2IcngkkJbDJatIoPKTtQpwJO /Ldt5IVYb7X+LKs2J/SRtp4y7LwQP5zSjzzaLgKnuH 68bJeOLkvvNsGAuzwR/Mu+9hfmaJX6E0Wghj3Ve6gy2H8OW+69S70bzcT/P9+7fh9+f3Hs+f3/s37f09 4/f63v/HmB1yNhY/jiueP7+0yznPH59au00e27gkhxe8/Jp6m2u1x+/t+0fe/5zxyUL+fPj3jN+PvFXv L/x+7R0Fjzl2ocfjV1kodQkytJcw/TGoIb47iL/x/p HXTv/bwO+Un7aAPfwqJaY5TLagWW9dL2n/6R4cH56r29/i7QB6ZXi9bf/yKpmvl/dd+eJXhaCf1DyoQ0 7H9+4J5kqDsoxE641pr4/w7V0j7QM7+9Nnn+irVKik2rFPgkbuclN7ieZuT+XVM/B9B+QdkHfg+w59X/ 1Z7zuBqn+sU6Hmn2uUJ1Q2WN/D8fvE+/PZ/9nKu1Bm NzfvGU941R7MTTuY/dq/YfxaffVYe/8ymtj8xHH+Y601ffC828h0hqPgcu/kpv/1Qc+NxxVsfwd9LK3b /Y7xaxi/veV1gPiytcj20/Yq2fu9sqgqD4s1Mlh2j/q9v/5/OGfJ1Nt+Z3zlYw37857g1d6Bi+azE18F z/h9P/v0/vcsps7idv/P+crt1gvdn605A8y3nl18r/ bX/zme/Hf991yWq32Z157pcw/yKWpmysbo6820mdPv/POEPS/OU5n491vahOuo+T3A92h575/Vn/0sya j5H54567+D2ge60VZ52//A828MgivkcqE0qGAJY/a8y+eGC27zuU/A+GaK7e7lW2RIt24Ti+X3nep6Bz 6kzzcF7++636baB44q+Y5qrs08o3rouFw4qdGHN99k zhv6z3R1riZ2h4+MUG7t63/s6eKZf8a4icFfaS5psQlOvet+sm7Ort34S2ta8oSqg5g/rZTxs/b8tzLG v7/l26r0ar93gmLqjp9/+Oo+1/Leed/3pIq/Z/z+5NtR177Jspw3hbZ0f/hV3w6+ke4hwNF/d9T/vm+r E/Uv/L7w+0Y/91u2QQdd4d8Yer5v24DauRcP86fuMK fhq3i/v+8ofHWfv+NuaxowP0t+ezltWO9Yupd+n/t7qf8jR/zaQ3v+qglfSa7+6dLO67mYpI2KBA3+Cl 6S1icmK/cdvog2Cnqjj31LH92de3/+/FXrsOc+2yxXPMz3UCcBeAOwwE+Pk6MpAme8deXUqPZ6+X0eGz s0VsyjoB2L52rZ+Qbsj57w9/mrNgy/G+px1O/oz3x2 Irirm0Ug/wRbW5SBqq++3feod969pd9GSvt3HP7RQ5i+pbz7XyJu1PM9G3f+CF/T27j2YL9X0ugwlmP8 oV5U9BDJW+Gr+/i24K3Ktlmyi7noy0vXwg8if84uJ9+Ffg6+mr3q+fN7/O3wI+54befNcVc6Puo6IFib OfLe58/g4z0gamp7+Wg4ez86C81V2gXVGtcz+sj7ma D+rbTtv+0WQhi7I7qj+uCrv+A98RHp4kv/+0/dlq0qpR73M5gO6gfoJ9MQ6aZzqKCP6I/6ndmF0wzbkW E7/3n2P7B4U8Ip6N///O7fTO2/ttTu/RFi5mjjcwg5lxyzYjHcjzV/IRB0C262g3JnheA8+JjC3R1pu5 Fw26LzsGP4+dnf5+Ovtt4//iqez/yIlib0Etc9Vf+u pG/4K+FsWSt51t/XWy+0Bf+8MP+ogryM98av8goMLgbkHphdD+CrtjH/yaTZAf6VeUSQbc9lG+p5eLLt b565KaglgkQt9Fxq295oqqEj5e6me8Z/C79j/X0DA40xwIx7m5i6za26/ncat6Mg8+guQzy6MTrI23hw f+0ZM7I3lG/89uv9dr4Rwvi295/+9/Lwxsm1/j6/9W BX/Crq2aj/jVg72ps2KloE7/NXPfCVnh++2hUOT0G1+05/eraBA8qgj82B9tnj9+g3hj2IPaFfGr/e6P ONh36kugVrvtGM8/y04PNLowzQa0YGGDF+w1cnm/hM6KDud+sP5cQ1mt/z5HBH0W8qciJo26dW4pupej iqC1+NyJkueH6/3lmh55SVM8+67AabSd8+1viC07Qd q/HNm/4+D/w+JZ4eB9Wxz7t8bU/euR37ucdGsz79H+8vXteFr+J5f/3wyZW+z6N8/XBX/Sro57fxz33I Pt3BV/u90nfzJ49Ia4dKtdGv+8hwW5dwS224dlmV60si90ydN+P6qd9Lnk/4/iQ9uy51TzaZj+uKX6ld q3j/chm23smhEw8nUjrV99uD+99N89iPD5k9+LnbW+ 93xa+i/fy2W11pwM/j/f1+M72o4yz084+19T1Mj0bwA/wDi9a6Rmsc5ng3r3S/u6E/sGeHvBG/imf8Dn tf17cwm/2tj/p866M+Ia/iV3p/vvVRV/wq3mmv/gl5Fb+DIerQ1i/eOEnO7/pjP318u1+a3xb3Kydj0y sj0511KoUi9l9+9eHbf5pJ5/M67mC6xV5Aj7pmBZ6h PE4WtsudCc/F7+ONU+LaiQ5sZ/ki4av7/ORd+Y8Nb0Au/LPwVTy/9WBfmI+Er/B8vanu6O3t/nm//ZS+ 7Y8Kw6wJsJ/zz8iipbih5iwljgn2iVqrb/Z5rdYuxaovP/W8+YlI306Vnc73hVnfB40d+A9i4kdxJY93 D7w/xdG7mQ4F8wemxehs2t1e6q/useFkUpxrQZC0e7 FjpsjWJ1O+eOzA/uCI/UG90/B7e+0Zkcv7zWkM1b/+amh/MNoy/P6+7xC+fvsxY82fGU/wJKoDv8K+X/ h9f+o1Hc98GWjfx5dJ6sY+GohfDeGr+4zfO35/4cAfcNRf1DvppMvmEk26cg1Tug2iwc83f/D+Rv8ffh 96iSzD2etJ4F75bu/8vj3I3pG8LXFtEjOPh9Fa5FdO +HKFuiyy3ufpdw+of+F32HPf+D6zL08NvHOsEB05+6FD+7PzrqEs0hFskcftHEP3WAhUyZOHszvq5++8 Plzegbq99jUhbtwfGb+djOLAgSeh+Pv7/vr/EEtalqpm3pVSs+Ol3FPvUKathJts9Po9/uajYW8+GsJX 99leHxzvv/3fYfi+3orhJNhS2tw5FPM693QoP8P76h IK6zwjfBNtSPkdcvVNlq6/+7ATHrw0EQgN0OCOQHc98Y9L7D+O2B/U+816NS4Cu4VUhFqs/tDoA03R/u IbQ/qS46x8TwcS/ll6rnvhyf/fplRhSaiU877/Vd57rwA66X+Fr+6c3cu8nJ8/a9XFzyzoc44Xt3/9C/ IufN/98tdpRhzhKcwaSWMHYdmSV1yrkaDA4RymlsAs 93i29/zisSPiV+oD/JXwlWz+5LkfzVhmvJ8XKYcu3Yk6aBenpD6tNbeY3/eDr/6+mRJ2P/HJupVh+4lP Nr3/wVd/30wJuvUbhzypvxGHPJm/88/ymqkmctpo7Z9Ztp384PUEN0/O07MxfYnuc40A3614GvcNYojv vJnFn/ex7VpQd77kN7/taOvIG+oAa30Oo/vFY0+ub6 x/SngvLea7yQDr2v4OMvtRsxr/Vt5+qdS4crZFr42FziK6Al4tS7FzuaS+//cMG11WSt/i7ykmhrNgoT 9ZWah/4/eHn62++cjqwxsGfGX1+RheE79ZmkKMh/6gYX/G2osEHGHl53t70yql6bq4o+N3x+/za/8njz nlqrdO93bn1B3tHimAJ8gbui+b8FX8/uJ1J3/3ttva h6slj6v+9btJs0i11X0+6Mnc/L9p4r27Bxdk85dCT1dq6J8B3Y45l/D+RruQt7/99HCsk8bqk6//5Op+ nxt+b/f9e575/kuHW2Gen9aHujJjfVSnL94l8+fLV0scYKiv/L5Pj0kkG6296mNzTitiaU93/eYI4heP 16y0hBWRv2f0+dfGWy/ASUvB3tbC+Mdr50dQiikwmT gl7jkCwb868jZ+vp253n/yhZW4huzj09xqTL/jHsY9SX5xf84wjvof/T9QDrEU2Kjtz/JJFAf87zmav/ XBk2unUONx3WpQMGl9GZvcnOmveL90/HNT+swUI36b/F7xe33+3BWf/Gbbfp/7F6+gPWxl18Rf90gjMa jqPqMeR/9S0d2fcHj5Cg2Jjh/8/xmPitXHAfg7l695 1oSvVHa+/rBMMxin30aPfkhhGtB/2TPkezTYZjfH0161U/xO2PPE+S4Hn802XxxKlnrh/oJNzEfrxXNs vfPAtjAfrbfet/XiG7be+sjWW++j8dtF71G7XX/plEOzWk7JopLizbUeqlNpjyMHghkmR5kf95/4hm34 v827b7BacsuR+8J160wggZ5Z5ioo571xL3P6mkuhMh iL+JVtx/eSU5oxK/i+e+H9jd9f/MojfhXPX/34wsmdzWd2Cre+8tLw/lsvOOJXXgbqf/Z0ri308BXNP5 /18ta/Fxz6euTFyB3/eSAc02Zo50NBXmZmqxPOAVmqr4/2+uIbXt/9tVkfbJ9/C311ckH20Ug/4P2B9y FvNbTreP/xzwz6Uy9hm3u+7oPHcab49pab36lkm84u o6cdVhf4ba/kyJr3odgumwenu782Hrh+wSyCk1Y3Tpps/D7x+8TvC/0N9QpG1b9ySZ0uzvNE3fw/633v b/x6h7z9+Svvb//IFb+K5+rjsjCmv2H+tx/q/s61t9d1v4PdjWvj+PW+0M+N+t/+vo+3v+/YD0ETsv/F A25cwA2YW+c6hHFObQEMlHbRIy/6H3Mjkm3UA7/Justice/ Y8HL+/8xs+5tfLur2bC+YiaWxa7vsqaUp06Ae7+PkV8jNVJ6z0MaNC6xq3g5joXptIja2+grain shoveler/shdvd+ dIpoIW9G/8262Pbgp9kXpxdJa2e/7hAfxV9al+f/FJx/9ig1SurDxfjApI6ew0lrXgOYOdmO/NR+4vHu s+7h6P8mjpMiOM7ajKz/p8+ws+33lgR/uB09HzSh8+ 6wnAUqm9BqIosKOqryTcKYt8/j6++AKAz9j32/tO+LhbbDtaxz709GHau/i+c0Mu+VwVl8hq/K53/tlx ty5lub2U8Nj1nnamaP82B00hrrb+x5ciVXh/MH5x/zxQ3Fnx/Z3wni0x7UV8aK86y/aYC0oiKXol7y/3 N200Gr2zK6ges8e4u/Ankur/7F/cOjoHup2lr8t415Oy [file] m7fhvxwErlPqipms5g83u0zdsalHhv2hroks2f54v+korwnH0x6gmcbb6t40y+fyenqEHuQkbxxG8Z11 zxxyfyvOAyQwrghY6U08j2mliuuDhpqqgumA9K25h5 hyqreTejTu0x5N3ovY686yzxh/VX/zDPOFXfnEecnrsSOfKkNzzt/k02naXq++wvaVVv8f+Y68gNfER0 qinD5GO0McfutQ4k9G2gZpo7eb5zmzTObrP9zR9vIc6PdZOS4/xSB17dSKK3IoKgfQ1Qi+1aq3swYRCt PZA+zN4RN6FeYB5PL2q4EvcA+zNsO2bLf6u+HT336+ i5z/aOdQ/eb1/uz9MV1h10MQ19i4/ruWfg/bP5Sgndq72u7w5p7QWpYWrg84w6nA/41tTs01NR4Vw210 q2t/NJ4k4pvuCP8w6e4ak/zPZGXd/py+ySaV0l69lfMC/cnwmJ6Zm4K/PhoZIF5aOa/zsihJIu4U894x gWaK1xl184dpeUf65rBS9Py2pxkHA+Cu7vp/7aT/11 AA9h6kibvO365Q4Pc2PZM2y45p+xgPlAm6CvzV4qPZj1sM2+BcF2lThLB+7vRw+Q9pw12YU6B5MlR2JC 97z0bZeQGKtV4XX79/Rc29vku34fvenua66VBlwYmHkMI4c1klANh1WS36fDY/y6Xbg+8GfCK0e6ecFM 0V5P3J/njTMuoV76oXlaBzgpC3su/w40mn6k89L/xm eYNOAT9bR8r008W17djdfU3kzHU+830J8T/JkzF235G3jZG7rF4meR2uW0UettpJuLpH0I0YyJcswxhK 3V5j4XzqDs4o2VZdhLXNjmIN2Z20bdpYPj2wdQwz71AoJql8rex/gtkfwp8btssy+hNwvxMeF65ecpT4 UpPU4070mAZhrZpm0bR39fue+d4njXpyvPq75Y7Z2g 6QPpA+yqp1WWbfr/8Sajzlv16yBhofrxiluYxqfcS4DXbjr1liUntxvJmf1UK1Yj7dd+SYLn2qy389av SL/mW13zvwO85nxfrKmgW8/y5/ktk44cQzaQ/zN+PENfD95QsdpJ4ck4SZ80gsL77rW9rpUtEX64H8MW 2Ragkvw5fuAcM3m/9rMs+2iIokb3LcwsU0PUW9tccb vSA+HJ0mafBw/A05do5FpWN7Sozl3gu/ied8KgyNfFm/kY4giff70obz52WmvDkwILrZB3w1lWBkNiCU /ZmFKt6CW6t1bO2OJG4WV7D4VtBHxPkoPky/6XfbWvcT/cfddtX0k3dDJ3zyZb1vjirqfdD7a7+oad/y UhbI5tG+3ro2c7/3Xf359CAR6Skt+CGOYrO/akLPtq yg6qX7NRxtcCJO6x7dr2xuBvG9XwcN/7qoKaTPuqtglN+2pf3+1i4YiYhyONXa49uaSA7Xmdx55WWQ+t +i/6eeup2Ewg8SGrV6mM8Hh8Ey0At/tKaj/SbV/REcb6ml8dvroZbJObEGszVfPnjzg4MrGX8xfOWTia nFiiuik41/uZ7YAelN+67dpGbm1NQy/3tq+kVodv+0 pndNi1c9vG7LTgmqUAXdzoSwuFkl83yPgy++dl99SHEJ+yjhYxv1Mg7YZmee3U81F6U0wlwj5nl1pO8A +9U4On009k+3xjI00g/fz/SqI/J/pzoj8n+zFOsRUIlkCc4wghe1R76Tm3mHW4giXx1yyK6fqjk/p1Ib 4voYVmwZ9Q68mwBF3XO2rQhBvBXyvV5IA++3Xeb1/2 2w8VinUoxZoWQ+ueZV/VNdoL/qqDv+hZwsx8A5yoYH7LY8iNbWcZPftQwBB4qr0O6S6wk4za16yOeJoC 96iDv+rgr/qyr+Z83hd/TeO73nab0Um5eyghY6GxQEikD4Jg9J49FH7L6Zo0NH/82vmo9tc9gi8j+rx/ 2Vfr/nQz9jInpiU3Pmuy3SaNM005no84e1YfSTnpN9 ALmlP49ahZH9b5+w09eex7cfsojZ0rgag3JS/8UrRZ4rw0DJt/zM016EgQ+6oPjN+S1XuAmp0eX76ONh 8LfZz/oz7O/1EfgfRE+eit2BYnsx6/wa7n/6gv+4xzDcfY8Z4wZjkoZO2RJ7If0b0bejKGonQz7T53Gi UnUc/D13U7/78d/BWXj1KiYE7SVthTyt2mxZ4UUn05 tNfQXjv/v93O/044Aitgy7pb4x9Jq+qG9+tor+X7izX7K7mjVt31r0833Lwk/ZN8mDq1ZBz1r/FXdf/h 21zrCqi28WZwC23SzHbOX8/V4/oK0iLwvoLu/P/2xV/CdNCrwG89Ster0KH0AYk/6QNbBgR10G6q0J23 9T0xzUD55Y18nQ8N6bxnA/gbJo5vd9/geo6aiM831e p76NniqD/i/YK/9uth96QW6La1+Ftg8Y7KHYu6DWWhpz5q77bioxKg/cY1IBc10lTds/rgUBz2V/zVAH 40bs2e20f3Kinx6RXcIVqrG2BG9Ub0I9+NZV/d61Uqitv4xwrQ08H6d67s+8Dwuko8bxBI+j7p3BwOHL mG+q7fP9BM2OM6BVavq3Fa+3nIsZ+WRXK9lGdsVG8j y3XhhpTIcxmwzD3VywzKZT18IVgu6PLxCDnNAbjvQ1QG/Qt59hzXVpkAvd0+90cX3C+6vwC9F63qtBEc oG63xwD1d28e8Q22ra40fYpS5yyJ/JvTFiWOa2Knnx7n6Gh7dSNsjSNTstFH5dNoY83RwkcQ+kspZ2dx ZUwSQ1luhUBQp0T+1o/W/Wd+HrU+IGrGWSxC4ae1ph E3g5b0c6eRBZoduwEEmLXuFX4u/isbXMvLTJ7nGC//haGK+t6qwrFXbnC38MoUgt0/8XL2U6Y2Jp4Bjb PE4BXHW/BXA/cZXJOmS5263IoGo2pjYleTQG0p0GZtkC/ZzzDs/W3KE4Ed/0Hmj54qbx3RfeR2tdKK/m o43q/j/XrH/Jfdh40X5nbvPIouc/t1vF/H+1Y08bJR xXzleL+S2bh1e0W1jBE6UwK+Y1K21wV7/r71di1XlqRV7jIS3kkztR/iG+eBj+Tu08dUiiMgx+Sofía+t1 z+UkpaGRsvNYUFNSGiqhoySDCTengq8jcsxOdpfl0Ka+Zm7k2gLTM63qTzQXLu6sLxACasDprl5cmoCc 8ja5a43g6nG7dp/36VeXSVlu2T0+nNOyO7WMvD3gXd O0Qv0HAkB03kkBQp/vzarzzU/sofía+0kIUrUNm61BDL1zqghIP701cTU+qDsrzDf7MM8/wd95J9saU/pe CvFPyVgr/S6/A5eh0+T7MmMouoUY+l4K/0qfL78cHw82gm79k/tv08Tirkp0Oly4iP6mcY8bTBrqIEX7 c89qgFL1MH8pTrqfCBxaPd6O4fr2L2JoUm+v6a5d5P +7kbOdwzB9URw9dj/LxqejNG2N87dcNEoTXG5Z8WksVwHCl8Nx0Knxcaskzc/ln74Z+1X0hHe/uxJxX2 lcK+UthX2s/9gF7Pa4zTQ3i3gZ+1n/tROB5y6TwAsvTy48vc/fZA/rKbxqx42A7T5PS8tI1R5G6s51K2 wV/zNGxDcb648gEI+hJiF72Xdu0ESt61GPca/ED5gX TD7Gp0TgC1tPC8SZI+bOcnMCuGCfAVVjcSngb9zS+K4qT5OPV+bGgoUKkYfh45ZjUoP/F+BaKX2sKz2D /VDv+leznyNvs2f8yob1gt3KcMeg9+D98viUB2/M1w6Xbs/gR/voOqIIzYcvQ9xD6Tg+4Xvn02hQ8mKi //C+the5GMkoOpfJ48/+wn1Np/te7pKH+c5/pZD9Xi r9Y9Z3+isx3IN1ct/0rdcX/g/kA6vkd+/e128X7DA+vN2Z0uenBI5an1I0K+H17POkz7M9H+K8X+K8X+ Kh8XdnTufE0PD1It7tZz9EwW/epz6MVrVj+SYv+VYv+VYv+QXzw4HLfgpwZ3wNE/lSbaC/5KE9+jxPcI /JUm3m+e/bGaZ7+POWhwrOxrX4Coy6PGKYawG4C39s fZC7uscK3+/dyu8/7a36qdW5M+2tf+Nessa+0wv2ilzSFUTx6cG17Ntey2A4cqt1sX7vV/AyfJ3bv/8rama [file] //Tt15/+/XJFSf9L90buhQ1yH2752at16/9k/O6TT9 7e3t59+fX7z7/49O3dp+/iyu8fzm/+1Y+cjuyvi8Xp1J2qVgfweUzD7221/dXbu89+//6zX/+d2+4P8H 3bF1+++/WrEp9+8su/k3QuSztt6w/ePvny17/5+N2nP3/66ytdW2hssB49a8rnF/kfX/7pxxT9q282tv 0rYkfdJf49++rzX37x+S2r2e1t/fyoh328dZ0/ffvd x1+9/eLLr7/4+d/QnJcVz99Wht/u3//8w1++/dPbv/3X2yff/PAf3/zwt39+e/f9w900l3/e/vCPTf/w T2/ff/fYL69mvkffR076zHS90/s1w4yzSa+3YuH7e34++lc+DfAmsU1y+C+/Dj5fEjD66we/WjuG5RmG f7n+dAGT7Sldk2s2lva6aQF7DaV5yWmP4BhsMonSpe ynGaTmvuHdt//+7Q8/CUL29Dv80uonmtu7g5quzhnjk119+bsP2to/yHbU+7M7X+a76Uq079X33GQ/+0 C/8kMDGp8opyGUfkY33436s879++Hwp684Avgla6ht2vlk6/VPpl8FeyHAy1KZI0/gb969/at0e125c/ /55j//OhWmlW8Rr+q+sRg/Ln1j//ruq7c//e9X3f/8 /Xc/Ln76i/wW1mpPJ/vX9z/91/d/8UgXX2GVN104ohx/UZ6YxBzmtBdcomw/SV5fZl9YLO/1km983lhq vPvJ+7dv/u+3f/3vg+F3v1j4jQfutL/J3An/m834Ld4/9cMf/ulHd+/38Itv//OEs86yliSC/JNv/vcf v/nrn7/91gyoxT7w/vm7H+c/Q+X6z3/494dgIi18/v u/fDQu+9ENu72/+a2PEn3iZhAOpZVi4N3y/bd//I/v/vzHVwVfo+9oEcxP934aNWrxc/7t1ev+9NGXf/ uPb3/Nhhnxw6s1OIG/+eZ/kboJ2h8/9w+C6MuBn3lRd6RF8/Emhih1dz59LB/68/yimGz1EMriP8nDiq yqdd5ra8/xusrYJC1W5qQTIihOxu95+6Oct3iu7tom 8/2GTEZ7jsrtjnMmkMIsJD0LWG7hd7ExTsX3CQVwc8BmUGzfIUg8aKTvIOigbrHhj0MerhhjO4Pja5Zu AxWkGCCjOzLbGwj0EHTcKuS3rSZiVyPmEUDoF6AqIOLiJiM7PyQbGPZQBC1IJUHbsbPcPaLdHXK+PmVu YH2tapyrHSNkj2OgMPtpYMceYFIdY7Z7yRtzADXmR7 UxuE90LMFoK7CereX3WPF7PNZmXfLkKXIscHVwNXSaEAX+FbNaNF1gwuuiBLEif5YxNGlxQVC7pJ0zQK cBJRLCXMmNCYfsInN0p97dbfWEGKGvLIVdRS7PwoEkhKnuhlKlgHBeIXL6YwGyUZG0WFbzQHL3LDYQEW KiXKJiMFCuBAJpN3GgxMbmVVzMSESBCYvUBLfcZvRk m0W3IPCxtsGVAKACQ92eKJpSWaALUGxbHDF4MCErNTjnO0C0GmjpP2JdLP5EX3DvPANrOKNFBLEyelKr XY3KpsJqsP4xBKyZDWTKZYdKWHsfWxE9j21jwjRKGNLfBYYlSYybZMVcVFIiQBWqUAHgPRHyKPDeDJGt SK4TF1OdVOUdDGTGVQH0x9EdUZFbgigubwtjRz0wxl RvYmo+MvadRDFco4NbNPblS8X0xOMxS1ReQ9AoTC9SwUZsUDkdSSJhLFHcCSCuB404koFqQZ1+ZW5kb2 DnWvteLEHQGSGrIVGySSRaQLK8NfLeMMVqQVObBBDoAwC9NxIeYxKQZZIsYZX1JDahRRBiPIQeDZUdAO neNULaUYM0IFwgPTLdDPTtCJ6iQeWmZLGcFiI8THGy OFDuUDZyxgPEKRKzKUYaYZJgXJZ3DPUfCJEbJFiiKRBiIFLpXAL6UXGxISZjOV1tSqFgMJYqNIDuCshl EGKuAFFjbiLQTRCxXPHxOEK1RrGaLLOyXEJfOSozAYLhSFWcOac7UYKkWQKiRJ8kKsTmMHYkQLV9TPmc MDAwMDAgbiAKMDAwMDAwMDUyMyAwMDAwMCBuIAowMD CaUZSdQqAoDUAtNQWuRF1cYeOqDYEyUTW7YJRrGEJmJYZfefILVDNxOVCoBLj1ADKgGJGzYOJnSGtgQL MzVRHbXVE2TLTtTUUuTC1xUcUlQBZyWJBgXJDvBOQrVAQtiaKNJSKnWGOeFJW0NEEgVDAgSEMvBAvoPW SlVRDdImg4EXUxKWIzHD0rWoCjLETmLSG1OKPmOZIe SYXojtGMSYDvBRP6AZK1SiEgPEFsHCAnFCsoRENuEECoBsZ8WOWhVAGxXL3hVrEkNWTaVSY9XjLfDEDa TOUchpXTGISvQANtQCQ4WuHuTJKsBSRcVFdbNEOsLAGxVSLaUEU9BDQ6DSCtQdDoDCwwRQZHCXjQW4Vc plJaSrFQK3zyWc6nApWeSXNMB5Ezg2ZyMRVrKCDQHd1+ZvJ5SCC3eZDqKrg9VVt3TYudXZBDFk== ID Date Data Source [id number] 12/29/2020 06:59:52 AM EDT [facility] Name Value Range Interpretation Code Description Data Catrachita rce(s) Supporting Document(s) Bicarbonate [Moles/volume] in Serum 24 mmol/L 22-29 [facility] Chloride [Moles/volume] in Serum or Plasma 105 mmol/L 98-107 [facility] Creatinine [Mass/volume] in Serum or Plasma 0.77 mg/dL 0.50-0.90 [facility] Glucose [Mass/volume] in Serum or Plasma 83 mg/dL 70-140 [facility] Potassium [Moles/volume] in Serum or Plasma 4.2 mmol/L 3.4-5.1 [facility] Sodium [Moles/volume] in Serum or Plasma 138 mmol/L 136-145 [facility] Urea nitrogen [Mass/volume] in Serum or Plasma 15 mg/dL 6-20 [facility] Anion gap 3 in Serum or Plasma 9 mmol/L 8-15 [facility] Osmolality of Serum or Plasma by calculation 286 mosm/kg 275-300 [facility] Creatinine/Urea nitrogen [Mass Ratio] in Serum or Plasma 19 [facility] Calcium [Mass/volume] in Serum or Plasma 8.6 mg/dL 8.6-10.0 [facility] Glomerular filtration rate/1.73 sq M pre dicted among non-blacks [Volume Rate/Area] in Serum or Plasma by Creatinine-based formula (MDRD) >6 0 [facility] Glomerular filtration rate/1.73 sq M pre dicted among blacks [Volume Rate/Area] in Serum or Plasma by Creatinine-based formula (MDRD) >60 [facility] ID Date Data Source [id number] 12/29/2020 07:07:33 AM EDT [facility] Name Value Range Interpretation Code Description Data Catrachita rce(s) Supporting Document(s) Leukocytes [#/volume] in Blood by Automated count 7.0 10*3/uL 4-10 [facility] Erythrocytes [#/volume] in Blood by Automated count 4.50 10*6/uL 4.1- 5.3 [facility] Hemoglobin [Mass/volume] in Blood 13.0 g/dL 11.5-15.5 [facility] Hematocrit [Volume Fraction] of Blood by Automated count 40.7 % 3 6-45 [facility] Erythrocyte mean corpuscular volume [Entitic volume] by Auto mated count 90.5 fL 80-96 [facility] Erythrocyte mean corpuscular hemoglobin [Entitic mass] by Automated count 28.9 pg 27-33 [facility] Erythrocyte mean corpuscular hemoglobin concentration [Mass/volume] by Automated count 32.0 g/dL 32.0-36.0 [facility] Erythrocyte distribution width [Ratio] by Automated count 14.5 % 11.5-14.5 [facility] Platelets [#/volume] in Blood by Automated count 234 10*3/uL 150-400 [facility] ID Date Data Source [id number] 12/18/2020 09:42:25 PM EDT [facility] IR LUMBAR PUNCTUREFINAL RESULTInterprete d by:CATHY DonaldEncephalitisFluoroscopically-guided [...] rce(s) Supporting Document(s) ID Date Data Source [id number] 12/13/2020 08:03:03 PM EDT [facility] Name Value Range Interpretation Code Description Data Catrachita rce(s) Supporting Document(s) [facility] [id number] [facility] [file] [id number] ID Date Data Source [id number] 12/10/2020 07:13:28 AM EDT [facility] Name Value Range Interpretation Code Description Data Catrachita rce(s) Supporting Document(s) Leukocytes [#/volume] in Blood by Automated count 7.7 10*3/uL 4-10 [facility] Erythrocytes [#/volume] in Blood by Automated count 4.47 10*6/uL 4.1- 5.3 [facility] Hemoglobin [Mass/volume] in Blood 13.1 g/dL 11.5-15.5 [facility] Hematocrit [Volume Fraction] of Blood by Automated count 40.7 % 3 6-45 [facility] Erythrocyte mean corpuscular volume [Entitic volume] by Auto mated count 91.0 fL 80-96 [facility] Erythrocyte mean corpuscular hemoglobin [Entitic mass] by Automated count 29.3 pg 27-33 [facility] Erythrocyte mean corpuscular hemoglobin concentration [Mass/volume] by Automated count 32.2 g/dL 32.0-[facility].0 [facility] width [Ratio] by Automated count 14.8 % 11.5-14.5 H [facility] Platelets [#/volume] in Blood by Automated count 238 10*3/uL 150-400 [facility] Differential cell count method - Blood [facility] Neutrophils/100 leukocytes in Blood by Automated count 61 % [facility] Lymphocytes/100 leukocytes in Blood by Automated count 26 % [facility] Monocytes/100 leukocytes in Blood by Automated count 9 % [facility] Eosinophils/100 leukocytes in Blood by Automated count 3 % [facility] Basophils/100 leukocytes in Blood by Automated count 1 % [facility] Neutrophils [#/volume] in Blood by Automated count 4.71 10*3/uL 1.8-7 .0 [facility] Lymphocytes [#/volume] in Blood by Automated count 2.00 10*3/uL 1.2-4 .0 [facility] Monocytes [#/volume] in Blood by Automated count 0.68 10*3/uL 0-0.8 [facility] Eosinophils [#/volume] in Blood by Automated count 0.22 10*3/uL 0-0.5 [facility] Basophils [#/volume] in Blood by Automated count 0.06 10*3/uL 0-0.2 [facility] Nucleated erythrocytes/100 leukocytes [Ratio] in Blood by Automated count 0 /100{WBCs} 0-0 [facility] ID Date Data Source [id number] 12/10/2020 07:57:05 AM EDT [facility] Name Value Range Interpretation Code Description Data Catrachita rce(s) Supporting Document(s) Magnesium [Mass/volume] in Serum or Plasma 1.9 mg/dL 1.6-2.6 [facility] ID Date Data Source [id number] 12/10/2020 07:57:05 AM EDT [facility] Name Value Range Interpretation Code Description Data Catrachita rce(s) Supporting Document(s) Phosphate [Mass/volume] in Serum or Plasma 3.9 mg/dL 2.5-4.5 [facility] ID Date Data Source [id number] 12/09/2020 09:03:00 PM EDT [facility] Name Value Range Interpretation Code Description Data Catrachita rce(s) Supporting Document(s) SARS-CoV-2 RNA 2019 nCoV Real-Time RT-PCR: NOT DETECTED [facility] This lab was ordered by [facility] and reported by [facility]. 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 [facility] Patient has symptoms related to [facility] When did you start to experience these symptoms [Date and time] [Phen X] [facility] Patient was hospitalized because of this condition [facility] patient was admitted to ICU for [facility] Patient resides in a congregate care setting [facility] status [facility] ID Date Data Source [id number] 12/09/2020 10:42:03 AM EDT [facility] Name Value Range Interpretation Code Description Data Catrachita rce(s) Supporting Document(s) [facility] [id number]h2O8T8uXUaQ1SerOQkc9eeW4ZeC7QmJEUxMQFVJN9AqNOh jb2 [file] [id number] ID Date Data Source [id number] 12/09/2020 10:41:48 AM EDT [facility] Name Value Range Interpretation Code Description Data Catracihta rce(s) Supporting Document(s) [facility] [id number]oncf3U9W2eWGmH1GgtZBfn5riA1LbL0SbSMWhYTBAJT0CxYNs jb2 [file] vp genetic+Ups4oNoRi/5vdyt240Q+9F8tB/NR/vRfLQfzWeB [file] [id number]+8+2lHm327Ur92975jr/fvf/2iw9/ +Ht9bga60fi+6999+OKrd2/v3314/8W733/75N3Fb6BO+50fzznxrgXdaZ004h/286x5X2/9/w7fTd38 +lra03240iaV//r9zThs8d4/7nObKx835zDFc2/30J8nz6y27kyx9lu9+/IPb5/+9aatWjap4nO/c+d7 rS4RkCZK4014j//mW2v50D/+zs+snqjiH112/O2b91 9/+fVX//cz53hgoulkkn+XVT0wRE182cp6f65+zTefvn/99t+++UUul2ux/pne7731BcfljvNWIe/579 woYh83ov33+u3bL/71qy9+9TLsVx/bCku8n09nm/3bp9++/ydo2714dpbPKJ8ao380jf//809//eH7/3 j7H//77fd/+vOfv/vrX7//7s///Pb5dz/+6fs/v/37 P4j/+z++/eXHt/kL8V/u64ddCUqd1SY+/a7wsZT7mHTlParLP/jeff/pe4WIrtW8pG51Yxsd4vvgq96// I4WdyBfI6V/Hm5YjLIFdi7k54gh9q0Ii1w5idXokMukcC9F/y47wo3fGo//g/ff/+g9EKfrrFhe1e/f+ j88kjma3+8olidjEFi7bJy6X//L+L3f1DLx/jXPspy r/8hvaNyKuHNAbDdQ+agO///7H//6Xt79+99/am3V311B5yrF80k/8uW1T3xG4nqEy3h9J74o/+9OP// 39X/+kk5r2tF296ef5e9z/vuDfefeN/fb9t2//8T9f7/6nv/j975yBDTps4L7p4PY//jCW5557E/DXuK jA26W/eDHsj+4eLxhBI+3y4PfPvt/N3W8rvFnT8gid W23sm5+///mHt+/+1/f/0vdB0xvgk/z8688+/Dw23P/9C6xMpY/913//x5/8en+HX33/w3d//ugLr4/w z777n3/87r/+8Y0XM1xWgbPnb/rxp/8/beX68//42/8+Rnz/l7/88Mmrmxf/yU92ib/8yx8/GWxvseEm UxPc+Ifv//h//tocS09c4FK5ze11/eSnkQUkf/pf// 2qdf/xyTdff/vtF7/23iL7u6+e+ItP//i7PUGIPU//0oypwtoh8Tsz7qsK+v//k3vCpG+zeuhvvvs/v3 +Tt7/05qmHplf4So/51t263Bv15q99/WIC7z7/8En2lC+WhQ316/efv3v/LOPhqzcT9Vavs3877RkxGw O2I9y5lax7//Z3zYFlRkSSY1jqPayVesrgWrGloN EXhxXQJfJed9ZJ4NqBOuDNFfX5I3NZZvhs9oYKExAYYziPTcNhBiQSZXGS9HfLBaPN0RLTs6ONWwYOXj VdIxYQRzrsS0UFDiRJCoQFYlG6VdngKqsEFsTGBtZz5+WV0bw0CnDhChMDUlLxg7BG6OvANhYC9KjSSk jV1lzaRxR804opPvCSIfBqkck7KhYEnwBVJOOO2OPF P4LZA2OBRzGh9+LT6bs0CtUdBvXQExXzm2RR7BeOGwm1HsJD3QI9XwTOGjUKUBJMP6x3CaPCZlsrvwdx hlE2TlLOP1pW1zFSW5DEHnVRryTNVkMNhoTDKzTVCeXGoxOTJzLQPpFSXwXMTcMUx5vQIpFR3MR1LxUO RpLQQOULIkzfJyAj7tWUoEBCKDVtasYSaLMYSFQOIr YHa6YEE5CRGaT4ShtkCyrJQiDKKMQZvlHwltHOKmdJ3chOpoH3DkJQM8l2VgJQ5OW2OpHJVnBHMSNWN2 t8LwTEPzxmdoxeisWhBwLWPyBGPdHUEqKY9Pqd4kaXIhouWfELYMPQikJmhwDP7ihGlsqghxX3DdhZEj KSA+QtDpKR8dpt6+VvWfAMScRbm0LAEwJCqxVSFiWC RcRYKzV3ddGHFvGcOlJJIpSvZvVO3Lx4OqsJEgBq3wgeSdMbjFgZUuZujuNNKsDCRzSYGvRmRKTPCdRU UmBSQsMBZ3LQLvGWKwBDbqJAZkEBO7Wrj6WNEtWPNzWP9iWcQkMJFdLyK7BGTqZNIoOWQwagQCRTEvDJ Y3KMFbXUJkULVwCELnAFdhAORjXHMdMFVcGVN5DCB2 JRPaKfDhGVQxMDFlZCFwUOGrREZfviCWQCNyARIaQXX8SHZzNJCoOOTqAKqiXIGmXSJtVNabYLSwWXDd KX1dViYeEWMjYYHaDYzpJWIrPUZszuWWPWUdZHOoQQJgNNZxZAQpMYCfPKhzBIZqGTXnDKHwRHPeGAAu PK5nYuRbDAPkICH9MRPcMRUqZOLlieBRVDMyUCWvFJ p1YPBjEOCoMEJwCHglNYXfTTFnWDR2EOAsWPCsQL9mGxSvDFVxKJW4LhCmICFyPGOhrjPSPJAmQUXtUP P4CkWsGWQxKUVnMJjmZZRkRWApELdoOAIeOXPmDQ2iIqGqZYJqGCVaFFbjHPZhUZPgdmUZSIWtLSTwWV WyTnZiDURbKQPnJAreYYKlCPD1BAUzOPUkMIXqPC1b VqYxWDNgZBK1HLlcDHQcZBLrvnIFGIRgOCEgJUuqEXEmRSSmYAVeQJpiCNRgMLKmIUT7VVPfQXQaCZ8x MkJgVXXaCNQmHVPpPqO3UlIvYrQRmRMlnDuyhzb7YKfbX2l7LIZlCNddNW1nulEsUZNtBcbwDf7maOR4 BJJlMaxFXt3Za0EhvbJ5hbZjJyM1GjU2YvFiYQ3R ID Date Data Source [id number] 12/09/2020 05:59:43 AM EDT [facility] Name Value Range Interpretation Code Description Data Catrachita rce(s) Supporting Document(s) Leukocytes [#/volume] in Blood by Automated count 7.8 10*3/uL 4-10 [facility] Erythrocytes [#/volume] in Blood by Automated count 4.46 10*6/uL 4.1- 5.3 [facility] Hemoglobin [Mass/volume] in Blood 12.8 g/dL 11.5-15.5 [facility] Hematocrit [Volume Fraction] of Blood by Automated count 40.4 % 3 6-45 [facility] Erythrocyte mean corpuscular volume [Entitic volume] by Auto mated count 90.7 fL 80-96 [facility] Erythrocyte mean corpuscular hemoglobin [Entitic mass] by Automated count 28.7 pg 27-33 [facility] Erythrocyte mean corpuscular hemoglobin concentration [Mass/volume] by Automated count 31.7 g/dL 32.0-[facility].0 [facility] width [Ratio] by Automated count 14.7 % 11.5-14.5 H [facility] Platelets [#/volume] in Blood by Automated count 257 10*3/uL 150-400 [facility] Differential cell count method - Blood [facility] Neutrophils/100 leukocytes in Blood by Automated count 58 % [facility] Lymphocytes/100 leukocytes in Blood by Automated count 29 % [facility] Monocytes/100 leukocytes in Blood by Automated count 9 % [facility] Eosinophils/100 leukocytes in Blood by Automated count 3 % [facility] Basophils/100 leukocytes in Blood by Automated count 1 % [facility] Neutrophils [#/volume] in Blood by Automated count 4.57 10*3/uL 1.8-7 .0 [facility] Lymphocytes [#/volume] in Blood by Automated count 2.24 10*3/uL 1.2-4 .0 [facility] Monocytes [#/volume] in Blood by Automated count 0.72 10*3/uL 0-0.8 [facility] Eosinophils [#/volume] in Blood by Automated count 0.24 10*3/uL 0-0.5 [facility] Basophils [#/volume] in Blood by Automated count 0.06 10*3/uL 0-0.2 [facility] Nucleated erythrocytes/100 leukocytes [Ratio] in Blood by Automated count 0 /100{WBCs} 0-0 [facility] ID Date Data Source [id number] 12/09/2020 06:13:56 AM [facility] Name Value Range Interpretation Code Description Data Catrachita rce(s) Supporting Document(s) Magnesium [Mass/volume] in Serum or Plasma 1.9 mg/dL 1.6-2.6 [facility] ID Date Data Source [id number] 12/09/2020 06:13:56 AM [facility] Name Value Range Interpretation Code Description Data Catrachita rce(s) Supporting Document(s) Albumin [Mass/volume] in Serum or Plasma by Bromocresol green (BCG) dye binding method 3.5 g/dL 3.5-5.2 [facility] Bilirubin.total [Mass/volume] in Serum or Plasma <1.2 [facility] Calcium [Mass/volume] in Serum or Plasma 8.6 mg/dL 8.6-10.0 [facility] Chloride [Moles/volume] in Serum or Plasma 103 mmol/L 98-107 [facility] Creatinine [Mass/volume] in Serum or Plasma 0.81 mg/dL 0.50-0.90 [facility] Glucose [Mass/volume] in Serum or Plasma 86 mg/dL 70-140 [facility] Alkaline phosphatase [Enzymatic activity/volume] in Serum or Plasma 109 U/L 35-104 H [facility] Potassium [Moles/volume] in Serum or Plasma 4.0 mmol/L 3.4-5.1 [facility] Protein [Mass/volume] in Serum or Plasma 6.2 g/dL 6.4-8.3 L [facility] Sodium [Moles/volume] in Serum or Plasma 134 mmol/L 136-145 L [facility] Aspartate aminotransferase [Enzymatic activity/volume] in Serum or Plasma 11 U/L <32 [facility] Urea nitrogen [Mass/volume] in Serum or Plasma 17 mg/dL 6-20 [facility] Osmolality of Serum or Plasma by calculation 278 mosm/kg 275-300 [facility] Creatinine/Urea nitrogen [Mass Ratio] in Serum or Plasma 21 [facility] Bicarbonate [Moles/volume] in Serum 20 mmol/L 22-29 L [facility] Alanine aminotransferase [Enzymatic activity/volume] in Seru m or Plasma 9 U/L <33 [facility] Anion gap 3 in Serum or Plasma 11 mmol/L 8-15 [facility] Glomerular filtration rate/1.73 sq M pre dicted among non-blacks [Volume Rate/Area] in Serum or Plasma by Creatinine-based formula (MDRD) >6 0 [facility] Glomerular filtration rate/1.73 sq M pre dicted among blacks [Volume Rate/Area] in Serum or Plasma by Creatinine-based formula (MDRD) >60 [facility] ID Date Data Source [id number] 12/09/2020 06:13:56 AM EDT [facility] Name Value Range Interpretation Code Description Data Catrachita rce(s) Supporting Document(s) Phosphate [Mass/volume] in Serum or Plasma 4.0 mg/dL 2.5-4.5 [facility] ID Date Data Source [id number] 12/08/2020 11:46:10 PM EDT [facility] XR CHEST FRONTAL ONLY [id number] RESULTI nterpreted by:CATHY McelroyPROCEDURE INFORMATION: Exam: XR [...] rce(s) Supporting Document(s) ID Date Data Source [id number] 12/08/2020 05:45:01 PM EDT [facility] Name Value Range Interpretation Code Description Data Catrachita rce(s) Supporting Document(s) Ammonia [Moles/volume] in Plasma 52 umol/L 11-51 H [facility] ID Date Data Source [id number] 12/08/2020 05:20:17 AM EDT [facility] Name Value Range Interpretation Code Description Data Catrachita rce(s) Supporting Document(s) Leukocytes [#/volume] in Blood by Automated count 8.4 10*3/uL 4-10 [facility] Erythrocytes [#/volume] in Blood by Automated count 4.29 10*6/uL 4.1- 5.3 [facility] Hemoglobin [Mass/volume] in Blood 12.8 g/dL 11.5-15.5 [facility] Hematocrit [Volume Fraction] of Blood by Automated count 39.1 % 3 6-45 [facility] Erythrocyte mean corpuscular volume [Entitic volume] by Auto mated count 91.1 fL 80-96 [facility] Erythrocyte mean corpuscular hemoglobin [Entitic mass] by Automated count 29.9 pg 27-33 [facility] Erythrocyte mean corpuscular hemoglobin concentration [Mass/volume] by Automated count 32.8 g/dL 32.0-36.0 [facility] E[facility]th[facility] distribution width [Ratio] by Automated count 14.6 % 11.5-14.5 H [facility] Platelets [#/volume] in Blood by Automated count 264 10*3/uL 150-400 [facility] Differential cell count method - Blood [facility] Neutrophils/100 leukocytes in Blood by Automated count 63 % [facility] Lymphocytes/100 leukocytes in Blood by Automated count 25 % [facility] Monocytes/100 leukocytes in Blood by Automated count 8 % [facility] Eosinophils/100 leukocytes in Blood by Automated count 3 % [facility] Basophils/100 leukocytes in Blood by Automated count 1 % [facility] Neutrophils [#/volume] in Blood by Automated count 5.26 10*3/uL 1.8-7 .0 [facility] Lymphocytes [#/volume] in Blood by Automated count 2.10 10*3/uL 1.2-4 .0 [facility] Monocytes [#/volume] in Blood by Automated count 0.67 10*3/uL 0-0.8 [facility] Eosinophils [#/volume] in Blood by Automated count 0.27 10*3/uL 0-0.5 [facility] Basophils [#/volume] in Blood by Automated count 0.06 10*3/uL 0-0.2 [facility] Nucleated erythrocytes/100 leukocytes [Ratio] in Blood by Automated count 0 /100{WBCs} 0-0 [facility] ID Date Data Source [id number] 12/08/2020 05:37:58 AM [facility] Name Value Range Interpretation Code Description Data Catrachita rce(s) Supporting Document(s) Bicarbonate [Moles/volume] in Serum 24 mmol/L 22-29 [facility] Chloride [Moles/volume] in Serum or Plasma 105 mmol/L 98-107 [facility] Creatinine [Mass/volume] in Serum or Plasma 0.85 mg/dL 0.50-0.90 [facility] Glucose [Mass/volume] in Serum or Plasma 92 mg/dL 70-140 [facility] Potassium [Moles/volume] in Serum or Plasma 3.9 mmol/L 3.4-5.1 [facility] Sodium [Moles/volume] in Serum or Plasma 139 mmol/L 136-145 [facility] Urea nitrogen [Mass/volume] in Serum or Plasma 14 mg/dL 6-20 [facility] Anion gap 3 in Serum or Plasma 10 mmol/L 8-15 [facility] Osmolality of Serum or Plasma by calculation 287 mosm/kg 275-300 [facility] Creatinine/Urea nitrogen [Mass Ratio] in Serum or Plasma 17 [facility] Calcium [Mass/volume] in Serum or Plasma 8.5 mg/dL 8.6-10.0 L [facility] Glomerular filtration rate/1.73 sq M pre dicted among non-blacks [Volume Rate/Area] in Serum or Plasma by Creatinine-based formula (MDRD) 88 mL/min/1.73m2 >60 [facility] Glomerular filtration rate/1.73 sq M pre dicted among blacks [Volume Rate/Area] in Serum or Plasma by Creatinine-based formula (MDRD) >60 [facility] ID Date Data Source [id number] 12/08/2020 05:37:58 AM [facility] Name Value Range Interpretation Code Description Data Catrachita rce(s) Supporting Document(s) Magnesium [Mass/volume] in Serum or Plasma 1.8 mg/dL 1.6-2.6 [facility] ID Date Data Source [id number] 12/08/2020 05:37:58 AM EDT [facility] Name Value Range Interpretation Code Description Data Catrachita rce(s) Supporting Document(s) Phosphate [Mass/volume] in Serum or Plasma 3.9 mg/dL 2.5-4.5 [facility] ID Date Data Source [id number] 12/08/2020 06:18:32 PM EDT [facility] Name Value Range Interpretation Code Description Data Catrachita rce(s) Supporting Document(s) Hepatitis C virus Ab [Presence] in Serum or Plasma by Immuno assay Non Reactive [facility] No serological evidence of active infect ion. If recent exposure is suspected, test for HCV RNA. ID Date Data Source [id number] 12/13/2020 06:06:09 PM [facility] Name Value Range Interpretation Code Description Data Catrachita e(s) Supporting Document(s) Hvac Technician review of results [facility] (NOTE)No informative autoantibodies were detected in this evaluation. However, a negative result does not exclude autoimmune encephalopathy, idiopathic or paraneoplastic. Sensitivity and specificity of antibody testing are enhanced by testing both serum and CSF. AMPA-R Ab CBA, S Negative [facility] (NOTE) ADDITIONAL INFO RMATION This test was developed and its performance characteristics determined by [facility] in a manner consistent with CLIA requirements. This test has not been cleared or approved by the U.S. Food and Drug Administration. Amphiphysin Ab [Titer] in Serum <1:240 [facility] (NOTE) ADDITIONAL INFO RMATION This test was developed and its performance characteristics determined by [facility] in a manner consistent with CLIA requirements. This test has not been cleared or approved by the U.S. Food and Drug Administration. Glial nuclear type 1 Ab [Titer] in Serum <1:240 [facility] (NOTE) ADDITIONAL INFO RMATION This test was developed and its performance characteristics determined by [facility] in a manner consistent with CLIA requirements. This test has not been cleared or approved by the U.S. Food and Drug Administration. Neuronal nuclear type 1 Ab [Titer] in Serum <1:240 [facility] Annotation comment [Interpretation] [facility] (NOTE) ADDITIONAL INFO RMATION This test was developed and its performance characteristics determined by [facility] in a manner consistent with CLIA requirements. This test has not been cleared or approved by the U.S. Food and Drug Administration. Neuronal nuclear type 2 Ab [Titer] in Serum by Immunofluorescence <1:240 [facility] (NOTE) ADDITIONAL INFO RMATION This test was developed and its performance characteristics determined by [facility] in a manner consistent with CLIA requirements. This test has not been cleared or approved by the U.S. Food and Drug Administration. Neuronal nuclear type 3 Ab [Titer] in Serum <1:240 [facility] (NOTE) ADDITIONAL INFO RMATION This test was developed and its performance characteristics determined by [facility] in a manner consistent with CLIA requirements. This test has not been cleared or approved by the U.S. Food and Drug Administration. CASPR2-IgG CBA, S Negative [facility] (NOTE) ADDITIONAL INFO RMATION This test was developed and its performance characteristics determined by [facility] in a manner consistent with CLIA requirements. This test has not been cleared or approved by the U.S. Food and Drug Administration. CV2 IgG Ab [Titer] in Serum <1:240 [facility] (NOTE) ADDITIONAL INFO RMATION This test was developed and its performance characteristics determined by [facility] in a manner consistent with CLIA requirements. This test has not been cleared or approved by the U.S. Food and Drug Administration. Dipeptidyl aminopeptidase-like protein 6 IgG Ab [Presence] in Serum or Plasma by Immunofluorescence Negative [facility] (NOTE) ADDITIONAL INFO RMATION This test was developed and its performance characteristics determined by [facility] in a manner consistent with CLIA requirements. This test has not been cleared or approved by the U.S. Food and Drug Administration. GABABR IgG Ab [Presence] in Serum or Plasma by Immunofluorescence [facility] (NOTE) ADDITIONAL INFO RMATION This test was developed and its performance characteristics determined by [facility] in a manner consistent with CLIA requirements. This test has not been cleared or approved by the U.S. Food and Drug Administration. Glutamate decarboxylase 65 IgG+IgM Ab [Moles/volume] i n Serum by ImmunoassayV 0.00 nmol/L <= 0.02 [facility] (NOTE) ADDITIONAL INFO RMATION This test was developed and its performance characteristics determined by [facility] in a manner consistent with CLIA requirements. This test has not been cleared or approved by the U.S. Food and Drug Administration. GFAP IFA, S Negative [facility] (NOTE) ADDITIONAL INFO RMATION This test was developed and its performance characteristics determined by [facility] in a manner consistent with CLIA requirements. This test has not been cleared or approved by the U.S. Food and Drug Administration. IgLON5 IFA, S Negative [facility] (NOTE) ADDITIONAL INFO RMATION This test was developed and its performance characteristics determined by [facility] in a manner consistent with CLIA requirements. This test has not been cleared or approved by the U.S. Food and Drug Administration. LGI1-IgG CBA, S [facility] (NOTE) ADDITIONAL INFO RMATION This test was developed and its performance characteristics determined by [facility] in a manner consistent with CLIA requirements. This test has not been cleared or approved by the U.S. Food and Drug Administration. mGluR1 Ab IFA, S [facility] (NOTE) ADDITIONAL INFO RMATION This test was developed and its performance characteristics determined by [facility] in a manner consistent with CLIA requirements. This test has not been cleared or approved by the U.S. Food and Drug Administration. NIF IFA, S [facility] (NOTE) ADDITIONAL INFO RMATION This test was developed and its performance characteristics determined by [facility] in a manner consistent with CLIA requirements. This test has not been cleared or approved by the U.S. Food and Drug Administration. NMDA-R Ab CBA, S [facility] (NOTE) ADDITIONAL INFO RMATION This test was developed and its performance characteristics determined by [facility] in a manner consistent with CLIA requirements. This test has not been cleared or approved by the U.S. Food and Drug Administration. Purkinje cells type 1 Ab [Titer] in Serum <1:240 [facility] (NOTE) ADDITIONAL INFO RMATION This test was developed and its performance characteristics determined by [facility] in a manner consistent with CLIA requirements. This test has not been cleared or approved by the U.S. Food and Drug Administration. Purkinje cells type 2 Ab [Titer] in Serum <1:240 [facility] (NOTE) ADDITIONAL INFO RMATION This test was developed and its performance characteristics determined by [facility] in a manner consistent with CLIA requirements. This test has not been cleared or approved by the U.S. Food and Drug Administration. Purkinje cells type Tr Ab [Titer] in Serum by Immunofluorescence <1:240 [facility] (NOTE) ADDITIONAL INFO RMATION This test was developed and its performance characteristics determined by [facility] in a manner consistent with CLIA requirements. This test has not been cleared or approved by the U.S. Food and Drug Administration.Test Performed by:[address] [id number] Director: Damien Hoff M.D. Ph.D.; CLIA# [id number] ID Date Data Source [id number] 12/07/2020 06:17:17 PM [facility] Value Range Interpretation Code Description Data Catrachita rce(s) Supporting Document(s) Glucose [Mass/volume] in Cerebral spinal fluid 67 mg/dL 40-70 [facility] ID Date Data Source [id number] 12/07/2020 06:17:17 PM [facility] Value Range Interpretation Code Description Data Catrachita rce(s) Supporting Document(s) Protein [Mass/volume] in Cerebral spinal fluid 37 mg/dl 15-45 [facility] ID Date Data Source [id number] 12/07/2020 07:16:50 PM [facility] Name Value Range Interpretation Code Description Data Catrachita rce(s) Supporting Document(s) Color of Cerebral spinal fluid [facility] Clarity of Cerebral spinal fluid [facility] Erythrocytes [#/volume] in Cerebral spinal fluid by Manual count 5 /u L <2 H [facility] Nucleated cells [#/volume] in Cerebral spinal fluid by Manual count <5 [facility] Microscopic observation [Identifier] in Cerebral spinal fluid [facility] Cell count and Differential panel - Cerebral spinal fluid [facility] ID Date Data Source [id number] 12/12/2020 04:07:52 PM [facility] Name Value Range Interpretation Code Description Data Catrachita rce(s) Supporting Document(s) Protein fractions.oligoclonal bands.intrathecal [Presence] in Se rum and CSF [facility] (NOTE)Zero (0) oligoclonal bands were ob served [...] using Isoelectric Focusing(IEF) and immunoblotting methodology.Performed At: [address] [id number] Alvarez MD Ph:[id number] ID Date Data Source [id number] 12/13/2020 10:04:07 AM [facility] Name Value Range Interpretation Code Description Data Catrachita rce(s) Supporting Document(s) Hvac Technician review of results [facility] (NOTE)No informative autoantibodies were detected in this evaluation. However, a negative result does not exclude autoimmune encephalopathy, idiopathic or paraneoplastic. Sensitivity and specificity of antibody testing are enhanced by testing both serum and CSF. AMPA-R Ab CBA, CSF Negative [facility] (NOTE) ADDITIONAL INFO RMATION This test was developed and its performance characteristics determined by [facility] in a manner consistent with CLIA requirements. This test has not been cleared or approved by the U.S. Food and Drug Administration. Amphiphysin Ab [Titer] in Cerebral spinal fluid by Immunofluorescen ce <1:2 [facility] (NOTE) ADDITIONAL INFO RMATION This test was developed and its performance characteristics determined by [facility] in a manner consistent with CLIA requirements. This test has not been cleared or approved by the U.S. Food and Drug Administration. Glial nuclear type 1 Ab [Titer] in Cerebral spinal fluid < 1:2 [facility] (NOTE) ADDITIONAL INFO RMATION This test was developed and its performance characteristics determined by [facility] in a manner consistent with CLIA requirements. This test has not been cleared or approved by the U.S. Food and Drug Administration. Neuronal nuclear type 1 Ab [Titer] in Ce rebral spinal fluid by Immunofluorescence <1:2 [facility] Annotation comment [Interpretation] [facility] (NOTE) ADDITIONAL INFO RMATION This test was developed and its performance characteristics determined by [facility] in a manner consistent with CLIA requirements. This test has not been cleared or approved by the U.S. Food and Drug Administration. Neuronal nuclear type 2 Ab [Titer] in Ce rebral spinal fluid by Immunofluorescence <1:2 [facility] (NOTE) ADDITIONAL INFO RMATION This test was developed and its performance characteristics determined by [facility] in a manner consistent with CLIA requirements. This test has not been cleared or approved by the U.S. Food and Drug Administration. Neuronal nuclear type 3 Ab [Titer] in Cerebral spinal fluid <1:2 [facility] (NOTE) ADDITIONAL INFO RMATION This test was developed and its performance characteristics determined by [facility] in a manner consistent with CLIA requirements. This test has not been cleared or approved by the U.S. Food and Drug Administration. CASPR2-IgG CBA, CSF Negative [facility] (NOTE) ADDITIONAL INFO RMATION This test was developed and its performance characteristics determined by [facility] in a manner consistent with CLIA requirements. This test has not been cleared or approved by the U.S. Food and Drug Administration. CV2 IgG Ab [Titer] in Cerebral spinal fluid <1:2 [facility] (NOTE) ADDITIONAL INFO RMATION This test was developed and its performance characteristics determined by [facility] in a manner consistent with CLIA requirements. This test has not been cleared or approved by the U.S. Food and Drug Administration. Dipeptidyl aminopeptidase-like protein 6 IgG Ab [Presence] in Cerebral spinal fluid by Immunofluorescence Negative [facility] (NOTE) ADDITIONAL INFO RMATION This test was developed and its performance characteristics determined by [facility] in a manner consistent with CLIA requirements. This test has not been cleared or approved by the U.S. Food and Drug Administration. GABABR IgG Ab [Presence] in Cerebral spinal fluid by Immunof luorescence Negative [facility] (NOTE) ADDITIONAL INFO RMATION This test was developed and its performance characteristics determined by [facility] in a manner consistent with CLIA requirements. This test has not been cleared or approved by the U.S. Food and Drug Administration. Glutamate decarboxylase 65 Ab [Moles/volume] in Cerebr al spinal fluid 0.00 nmol/L <= 0.02 [facility] (NOTE) ADDITIONAL INFO RMATION This test was developed and its performance characteristics determined by [facility] in a manner consistent with CLIA requirements. This test has not been cleared or approved by the U.S. Food and Drug Administration. GFAP IFA, CSF Negative [facility] (NOTE) ADDITIONAL INFO RMATION This test was developed and its performance characteristics determined by [facility] in a manner consistent with CLIA requirements. This test has not been cleared or approved by the U.S. Food and Drug Administration. IgLON5 IFA, CSF Negative [facility] (NOTE) ADDITIONAL INFO RMATION This test was developed and its performance characteristics determined by [facility] in a manner consistent with CLIA requirements. This test has not been cleared or approved by the U.S. Food and Drug Administration. LGI1-IgG CBA, CSF Negative [facility] (NOTE) ADDITIONAL INFO RMATION This test was developed and its performance characteristics determined by [facility] in a manner consistent with CLIA requirements. This test has not been cleared or approved by the U.S. Food and Drug Administration. mGluR1 Ab IFA, CSF Negative [facility] (NOTE) ADDITIONAL INFO RMATION This test was developed and its performance characteristics determined by [facility] in a manner consistent with CLIA requirements. This test has not been cleared or approved by the U.S. Food and Drug Administration. NIF IFA, CSF Negative [facility] (NOTE) ADDITIONAL INFO RMATION This test was developed and its performance characteristics determined by [facility] in a manner consistent with CLIA requirements. This test has not been cleared or approved by the U.S. Food and Drug Administration. NMDA-R Ab CBA, CSF Negative [facility] (NOTE) ADDITIONAL INFO RMATION This test was developed and its performance characteristics determined by [facility] in a manner consistent with CLIA requirements. This test has not been cleared or approved by the U.S. Food and Drug Administration. Purkinje cells type Tr Ab [Titer] in Cer ebral spinal fluid by Immunofluorescence <1:2 [facility] (NOTE) ADDITIONAL INFO RMATION This test was developed and its performance characteristics determined by [facility] in a manner consistent with CLIA requirements. This test has not been cleared or approved by the U.S. Food and Drug Administration. Purkinje cells type 1 Ab [Titer] in Cerebral spinal fluid <1:2 [facility] (NOTE) ADDITIONAL INFO RMATION This test was developed and its performance characteristics determined by [facility] in a manner consistent with CLIA requirements. This test has not been cleared or approved by the U.S. Food and Drug Administration. Purkinje cells type 2 Ab [Titer] in Cerebral spinal fluid <1:2 [facility] (NOTE) ADDITIONAL INFO RMATION This test was developed and its performance characteristics determined by [facility] in a manner consistent with CLIA requirements. This test has not been cleared or approved by the U.S. Food and Drug Administration.Test Performed by:[address] [id number] Director: Damien Hoff M.D. Ph.D.; CLIA# [id number] ID Date Data Source [id number] 12/12/2020 02:15:16 PM EDT [facility] Cmnt XXX-Imp : NoneGram Stn XXX : 1+WBC'S Seen.No organisms seenSpecimen concentrated prior to staining.Microorganism XXX Cult : No growth 5 days Name Value Range Interpretation Code Description Data Catrachita rce(s) Supporting Document(s) ID Date Data Source [id number] 12/07/2020 07:59:59 PM EDT [facility] Cmnt XXX-Imp : NoneCSF Panel : [...] rce(s) Supporting Document(s) ID Date Data Source [id number] 12/07/2020 02:22:03 PM T [facility] Name Value Range Interpretation Code Description Data Catrachita rce(s) Supporting Document(s) [facility] OPSQIc0dWwUGRlZk20/ERFwgEUMjj8BtZSrjTNx5IPedEOXrK5UqKAS4dI8xRMX8MJiINiEcGlQgPuL1 lbm [file] AgICAgICAgICAgICAgICAgICAgICAgICAgICAgICAg ICAgICAgICAgICAgICAgICAgICAgICAgICAgICAgICAgICAgICAgICAgICAgICAgICAgICAgICAgICAg ICAgDQogICAgICAgICAgICAgICAgICAgICAgICAgICAgICAgICAgICAgICAgICAgICAgICAgICAgICAg ICAgICAgICAgICAgICAgICAgICAgICAgICAgICAgIC AgICAgICAgICAgICAgDQogICAgICAgICAgICAgICAgICAgICAgICAgICAgICAgICAgICAgICAgICAgIC AgICAgICAgICAgICAgICAgICAgICAgICAgICAgICAgICAgICAgICAgICAgICAgICAgICAgICAgDQogIC AgICAgICAgICAgICAgICAgICAgICAgICAgICAgICAg ICAgICAgICAgICAgICAgICAgICAgICAgICAgICAgICAgICAgICAgICAgICAgICAgICAgICAgICAgICAg ICAgICAgDQogICAgICAgICAgICAgICAgICAgICAgICAgICAgICAgICAgICAgICAgICAgICAgICAgICAg ICAgICAgICAgICAgICAgICAgICAgICAgICAgICAgIC AgICAgICAgICAgICAgICAgDQogICAgICAgICAgICAgICAgICAgICAgICAgICAgICAgICAgICAgICAgIC AgICAgICAgICAgICAgICAgICAgICAgICAgICAgICAgICAgICAgICAgICAgICAgICAgICAgICAgICAgDQ ogICAgICAgICAgICAgICAgICAgICAgICAgICAgICAg ICAgICAgICAgICAgICAgICAgICAgICAgICAgICAgICAgICAgICAgICAgICAgICAgICAgICAgICAgICAg ICAgICAgICAgDQogICAgICAgICAgICAgICAgICAgICAgICAgICAgICAgICAgICAgICAgICAgICAgICAg ICAgICAgICAgICAgICAgICAgICAgICAgICAgICAgIC AgICAgICAgICAgICAgICAgICAgDQogICAgICAgICAgICAgICAgICAgICAgICAgICAgICAgICAgICAgIC AgICAgICAgICAgICAgICAgICAgICAgICAgICAgICAgICAgICAgICAgICAgICAgICAgICAgICAgICAgIC AgDQogICAgICAgICAgICAgICAgICAgICAgICAgICAg ICAgICAgICAgICAgICAgICAgICAgICAgICAgICAgICAgICAgICAgICAgICAgICAgICAgICAgICAgICAg VNTlNFNbRWLaBDXhBOq3P3ajSGNgHBTyHG3hZOf5Xt1+VTnYMbNlQTM5duYgpA2HXK5nv8QuLAzyGEDu u0KxYZd0MA2DYZTcVXidXB0PJKjqta2GSDMuOIPgaU NOi2kyQkWpRYN3AZKrWjbaZR7BJKZdR9rapmYoSEJmAEWDUSuqKKJBQZ1YHeKqS3LklC51SUQOCj9+DQ whsnFfFkmFNoS8ARWwx2TcPPr1DF9KPNRsOwgdi3RiFNunEQLGLCozSI3UXRX4SAX7YLJpUg0PUDLoY0 95hnPsFA6TKl0DYrZnTD6xtr4LQHnpTRDyNgqJYmp5 UGjmUC4AaQCtUGuWw25lvLn8vqXatVGLNS1yZJbmWZLQCXFlun5rC2VhYTvHF1oiLRDkAg0pVz9dGBHs UFTvFpR9AJTFXT8VCGBbPPHoiAMqBCJiWHYVWA7BEYsmGWO2PDKrmgQokIZjKZsbFQ0JKQRujdGxRZAx MCBSDQo+Kv1FDX9er4TdFGvjLTEyBV3zdn6JCUtWZw KlM3C9qRSoW2I9JOkfNb3QIJKlSUKkHORqFPLTZAtdJC5PFY0pihD2XQ0SbNWjWUGyGZNlsOOiTFu1Q2 7qvOZnCBncUB5ZBGG+Sharon+Ah1EQURePFKeVUGqIrRiBEKYEyLcH9GkS8UMj9XtR9BwZF43uCbgseWcQJ hoQN9TLJ3vKUFvJGLVYK3BsAAcaF8erhMjFaPfQBIN OeDuA39vyPNqLJUrBUE7TWQvOb1MDELvC2WadwQlgJtwxcWhMRNfKZLWTT1RHCyxflTgrDDnmHdqAK47 qZezNE1PRs2OKfNsIC3muo3AoRBpXf4TKARxHE7MKTIxMOTvKUTuSHN3RMAkDzArCScgPSGbAKTaVUX8 YDVuERAlSV5PEyLfNEZqMRjhDFRaAGJuUHXwfp6RBH LvBAKcIEoxHrSaYGDfVTBuXDgoKWGrXPIwJNP4TTPmDFUaGR9MVcPcQGInUXN5TVVuOVDjLDQkth2YTT ZrGKDaUbxdZCBbZYKwMQRrIJwtBPTsRUU6AeB6TPPuILCiPF6KCjJzLZXgKSD5LcJuGOIqUHEyju6UQN WrRYYrOGAgBtWuZVReSQMuWQsmBOThEPR0ThV8YTIv QVFvPE2DJxEoSDBeVRN0HNotMRFmAQPmsa1HQMAsRNRoNev8IOUuBUWoVLKyYJdzDCUfEYS2MEjcACAu CJQkGD2NShKbDEMtYSahWTspEZBnVMMyvl2HLGRaXSRoFrU4TgSySHVoVFAqQOxyZNLoSWV9VHN8OGRw FPRnZD7HBfXmJBOvOMsiZmfnXIEdOCHsht9TTORxKX WmKERlEuAdVZNpUCCxOHc0wbKplUFiWIs9BP6DI0VcltXwQMtWOp6Rd953LTK6HIJvUv3FT8jwFt5nYQ ZxILNLFc7ZJQf6HuA8DzXiBPd1WXLlICLzKBO1NSRzObCkNeHeTEGkRWn+JLq0KRpvEeRrIbw7UOYsWN QtPGX7AWPwRFZ9WLTnFVZ8FC1xKJVMHr0+CBeiwLDdaAjvNHNXMwf3ZrYLTyLcAT9EFHy= ID Date Data Source [id number] 12/07/2020 11:20:40 AM EDT [facility] Name Value Range Interpretation Code Description Data Catrachita rce(s) Supporting Document(s) ED Provider Note [facility] UDZHKn8hSsZUByPc87/PSVntJIZhu9QzJFbqLVs2CEiuNATwL9ZdEDR4eL0qAEF5YYwLIqOxOgOuUgY6 lbm [file] [employer]/1hYnAhnWSJboHSEACMl4cFFezClyh9Dy8zLrtkw2EuylkhnNHJPzJ3F6iALMuVpPfXK8pfQJCeWEG [file] O7WBTkRdKrCqj7KwZ8LTZbWgt+YD3sUBp+Qx7Vm8WucfO7nmEiGLe6Eiy1AQ4EGOYRR3LRYu== ID Date Data Source [id number] 12/07/2020 05:50:18 AM EDT [facility] Name Value Range Interpretation Code Description Data Catrachita rce(s) Supporting Document(s) Leukocytes [#/volume] in Blood by Automated count 7.9 10*3/uL 4-10 [facility] Erythrocytes [#/volume] in Blood by Automated count 4.46 10*6/uL 4.1- 5.3 [facility] Hemoglobin [Mass/volume] in Blood 12.9 g/dL 11.5-15.5 [facility] Hematocrit [Volume Fraction] of Blood by Automated count 40.6 % 3 6-45 [facility] Erythrocyte mean corpuscular volume [Entitic volume] by Auto mated count 91.1 fL 80-96 [facility] Erythrocyte mean corpuscular hemoglobin [Entitic mass] by Automated count 28.9 pg 27-33 [facility] Erythrocyte mean corpuscular hemoglobin concentration [Mass/volume] by Automated count 31.7 g/dL 32.0-[facility].0 [facility] width [Ratio] by Automated count 14.8 % 11.5-14.5 H [facility] Platelets [#/volume] in Blood by Automated count 284 10*3/uL 150-400 [facility] Differential cell count method - Blood [facility] Neutrophils/100 leukocytes in Blood by Automated count 57 % [facility] Lymphocytes/100 leukocytes in Blood by Automated count 30 % [facility] Monocytes/100 leukocytes in Blood by Automated count 9 % [facility] Eosinophils/100 leukocytes in Blood by Automated count 3 % [facility] Basophils/100 leukocytes in Blood by Automated count 1 % [facility] Neutrophils [#/volume] in Blood by Automated count 4.51 10*3/uL 1.8-7 .0 [facility] Lymphocytes [#/volume] in Blood by Automated count 2.35 10*3/uL 1.2-4 .0 [facility] Monocytes [#/volume] in Blood by Automated count 0.74 10*3/uL 0-0.8 [facility] Eosinophils [#/volume] in Blood by Automated count 0.23 10*3/uL 0-0.5 [facility] Basophils [#/volume] in Blood by Automated count 0.06 10*3/uL 0-0.2 [facility] Nucleated erythrocytes/100 leukocytes [Ratio] in Blood by Automated count 0 /100{WBCs} 0-0 [facility] ID Date Data Source [id number] 12/07/2020 06:02:53 AM EDT [facility] Name Value Range Interpretation Code Description Data Catrachita rce(s) Supporting Document(s) aPTT in Platelet poor plasma by Coagulation assay 31.2 s 24.0-33. 0 [facility] ID Date Data Source [id number] 12/07/2020 06:02:53 AM EDT [facility] Name Value Range Interpretation Code Description Data Catrachita rce(s) Supporting Document(s) Prothrombin time (PT) 13.5 s 11.6-14.0 [facility] INR in Platelet poor plasma by Coagulation assay 1.07 [facility] Routine intensity oral anticoagulation I NR is typically 2.0-3.0. Target INR must be clinically individualized. ID Date Data Source [id number] 12/07/2020 06:18:08 AM [facility] Name Value Range Interpretation Code Description Data Catrachita rce(s) Supporting Document(s) Magnesium [Mass/volume] in Serum or Plasma 1.8 mg/dL 1.6-2.6 [facility] ID Date Data Source [id number] 12/07/2020 06:18:08 AM [facility] Value Range Interpretation Code Description Data Catrachita rce(s) Supporting Document(s) Phosphate [Mass/volume] in Serum or Plasma 3.8 mg/dL 2.5-4.5 [facility] ID Date Data Source [id number] 12/07/2020 06:18:08 AM [facility] Value Range Interpretation Code Description Data Catrachita rce(s) Supporting Document(s) Bicarbonate [Moles/volume] in Serum 21 mmol/L 22-29 L [facility] Chloride [Moles/volume] in Serum or Plasma 108 mmol/L 98-107 H [facility] Creatinine [Mass/volume] in Serum or Plasma 0.90 mg/dL 0.50-0.90 [facility] Glucose [Mass/volume] in Serum or Plasma 96 mg/dL 70-140 [facility] Potassium [Moles/volume] in Serum or Plasma 4.0 mmol/L 3.4-5.1 [facility] Sodium [Moles/volume] in Serum or Plasma 140 mmol/L 136-145 [facility] Urea nitrogen [Mass/volume] in Serum or Plasma 15 mg/dL 6-20 [facility] Anion gap 3 in Serum or Plasma 11 mmol/L 8-15 [facility] Osmolality of Serum or Plasma by calculation 291 mosm/kg 275-300 [facility] Creatinine/Urea nitrogen [Mass Ratio] in Serum or Plasma 16 [facility] Calcium [Mass/volume] in Serum or Plasma 8.7 mg/dL 8.6-10.0 [facility] Glomerular filtration rate/1.73 sq M pre dicted among non-blacks [Volume Rate/Area] in Serum or Plasma by Creatinine-based formula (MDRD) 82 mL/min/1.73m2 >60 [facility] Glomerular filtration rate/1.73 sq M pre dicted among blacks [Volume Rate/Area] in Serum or Plasma by Creatinine-based formula (MDRD) >60 [facility] ID Date Data Source [id number] 12/06/2020 12:09:04 PM EDT [facility] Name Value Range Interpretation Code Description Data Catrachita rce(s) Supporting Document(s) Consultation [facility] WZAUNo2bMrAPMfDf63/ZYXflLDFfi8SbJOxoLEv5MWxdFFMnQ9RmEYX2bR8fAJZ8RPrSMdHmAyDsRkE3 lbm [file] JjAKRjLgH9ZlCeAAGvFZlhUpuwFxn0GlT+PE6mAXd+Sf6As8FvhuD8jqJjWNv8OaRcAQdeGXPENo5V ID Date Data Source [id number] 12/06/2020 08:59:41 AM EDT [facility] MR BRAIN WITH AND WITHOUT CONTRAST [id number] FINAL RESULTInterpreted by:MELY Bruno HEAD WITH AND [...] Name Value Range Interpretation Code Description Data [facility](s) Supporting Document(s) ID Date Data Source [id number] 12/06/2020 06:19:13 AM [facility] Name Value Range Interpretation Code Description Data [facility](s) Supporting Document(s) Leukocytes [#/volume] in Blood by Automated count 7.2 10*3/uL 4-10 [facility] Erythrocytes [#/volume] in Blood by Automated count 4.36 10*6/uL 4.1- 5.3 [facility] Hemoglobin [Mass/volume] in Blood 12.7 g/dL 11.5-15.5 [facility] Hematocrit [Volume Fraction] of Blood by Automated count 39.4 % 3 6-45 [facility] Erythrocyte mean corpuscular volume [Entitic volume] by Auto mated count 90.5 fL 80-96 [facility] Erythrocyte mean corpuscular hemoglobin [Entitic mass] by Automated count 29.2 pg 27-33 [facility] Erythrocyte mean corpuscular hemoglobin concentration [Mass/volume] by Automated count 32.3 g/dL 32.0-36.0 [facility] E[facility] distribution width [Ratio] by Automated count 14.7 % 11.5-14.5 H [facility] Platelets [#/volume] in Blood by Automated count 271 10*3/uL 150-400 [facility] Differential cell count method - Blood [facility] Neutrophils/100 leukocytes in Blood by Automated count 59 % [facility] Lymphocytes/100 leukocytes in Blood by Automated count 28 % [facility] Monocytes/100 leukocytes in Blood by Automated count 9 % [facility] Eosinophils/100 leukocytes in Blood by Automated count 3 % [facility] Basophils/100 leukocytes in Blood by Automated count 1 % [facility] Neutrophils [#/volume] in Blood by Automated count 4.32 10*3/uL 1.8-7 .0 [facility] Lymphocytes [#/volume] in Blood by Automated count 2.01 10*3/uL 1.2-4 .0 [facility] Monocytes [#/volume] in Blood by Automated count 0.64 10*3/uL 0-0.8 [facility] Eosinophils [#/volume] in Blood by Automated count 0.21 10*3/uL 0-0.5 [facility] Basophils [#/volume] in Blood by Automated count 0.07 10*3/uL 0-0.2 [facility] Nucleated erythrocytes/100 leukocytes [Ratio] in Blood by Automated count 0 /100{WBCs} 0-0 [facility] ID Date Data Source [id number] 12/06/2020 06:43:38 AM [facility] Name Value Range Interpretation Code Description Data Catrachita rce(s) Supporting Document(s) Bicarbonate [Moles/volume] in Serum 23 mmol/L 22-29 [facility] Chloride [Moles/volume] in Serum or Plasma 106 mmol/L 98-107 [facility] Creatinine [Mass/volume] in Serum or Plasma 0.92 mg/dL 0.50-0.90 H [facility] Glucose [Mass/volume] in Serum or Plasma 102 mg/dL 70-140 [facility] Potassium [Moles/volume] in Serum or Plasma 3.9 mmol/L 3.4-5.1 [facility] Sodium [Moles/volume] in Serum or Plasma 138 mmol/L 136-145 [facility] Urea nitrogen [Mass/volume] in Serum or Plasma 16 mg/dL 6-20 [facility] Anion gap 3 in Serum or Plasma 10 mmol/L 8-15 [facility] Osmolality of Serum or Plasma by calculation 288 mosm/kg 275-300 [facility] Creatinine/Urea nitrogen [Mass Ratio] in Serum or Plasma 18 [facility] Calcium [Mass/volume] in Serum or Plasma 8.6 mg/dL 8.6-10.0 [facility] Glomerular filtration rate/1.73 sq M pre dicted among non-blacks [Volume Rate/Area] in Serum or Plasma by Creatinine-based formula (MDRD) 80 mL/min/1.73m2 >60 [facility] Glomerular filtration rate/1.73 sq M pre dicted among blacks [Volume Rate/Area] in Serum or Plasma by Creatinine-based formula (MDRD) >60 [facility] ID Date Data Source [id number] 12/06/2020 06:43:38 AM [facility] Name Value Range Interpretation Code Description Data Catrachita rce(s) Supporting Document(s) Phosphate [Mass/volume] in Serum or Plasma 3.7 mg/dL 2.5-4.5 [facility] ID Date Data Source [id number] 12/06/2020 06:43:38 AM EDT [facility] Value Range Interpretation Code Description Data Catrachita rce(s) Supporting Document(s) Magnesium [Mass/volume] in Serum or Plasma 1.8 mg/dL 1.6-2.6 [facility] ID Date Data Source [id number] 12/06/2020 06:43:38 AM EDT [facility] Value Range Interpretation Code Description Data Catrachita rce(s) Supporting Document(s) Thyrotropin [Units/volume] in Serum or Plasma 3.360 u[IU]/mL 0.270-4. 200 [facility] ID Date Data Source [id number] 12/05/2020 07:29:47 PM EDT [facility] Value Range Interpretation Code Description Data Catrachita rce(s) Supporting Document(s) [facility] BVZZCr9mHeISKdUi28/XGEjaKDPqz7OqUPiaKFx6UHtqLPEmM6NkVEQ1uL8oCWF0CRdKWuKcKtMcSyD8 lbm [file] gbkzP/9n8lvFq/hnQk9bB+Petar/Ak5bYhh/e2vWeIVF6n94+PfUW5u+Hc/XdEPfmDuzI9/R7m54d/9+kY/ +IG5Mz/+RxKtyx0ym1y6sFp+l/uzZs/CybkWGOeZI3 9j1rz7tFW5w2uzkDcT5c7hohL0Bok9Kn/H87Yjkv+XX9q5oaSZ8kvPpffiu46ncfNg9UBXyk+Wmxv+rX w+/xD9ozxpp56Olgsnumf51bp0i+YX4f9unaA3Uol64p/K5+Nfmh+CM9l2flIG5bmProbip39ulnAb5W EXki+Wmxv+xKaM8KAFVbrwH+b+K+S/csS8An/8 [file] OvlUPlPSjfJFay7DwL1HXDbVQydLBAVQP24Vjftd+CBbTVW9/[employer]+PZb2FXYUkwER5n6KdB8e9pHChKA [file] ICAgICAgICAgICAgICAgICAgICAgICAgICAgICAgIC DwNRUtLLJeFYJfZPUdUBAwCYZbTMYoVZScIUYdIQGqLGQpFVOrCACuEDByWGTdJWLrVSNwLEOuJN1MQA AgICAgICAgICAgICAgICAgICAgICAgICAgICAgICAgICAgICAgICAgICAgICAgICAgICAgICAgICAgIC AgICAgICAgICAgICAgICAgICAgICAgICAgICAgICAg TVWkSQQgII0JXFRhDARdFTVkGVHgKEJyTELiCSXfXSWbQSOsSBJqNFOpPUMmGWFgGLLkDZRzGATmFYWu AQQhUZHuILHwZGSgPKIoLSPjBVBgWDSoGUDjXXYuTFFaYUIaXIVbYFMiTHQnEZOgDC0FOIXgNRHbQYTq ICAgICAgICAgICAgICAgICAgICAgICAgICAgICAgIC AgICAgICAgICAgICAgICAgICAgICAgICAgICAgICAgICAgICAgICAgICAgICAgICAgICAgICAgICAgIA 0KICAgICAgICAgICAgICAgICAgICAgICAgICAgICAgICAgICAgICAgICAgICAgICAgICAgICAgICAgIC AgICAgICAgICAgICAgICAgICAgICAgICAgICAgICAg GLKlOCXcZYVtXU9VXMRpRLNyENWgVIQrHOSbGTYrYGTvLITvGCSfOWIiCYLxNNLeWTDlYDRhVWGjQVCn STZeEFLyIKUbMUVlXGAbZNYyMCJrVYWpCEYgLGTgRWQiOOWlQYOxKIKiWWAcJBFeQCUjHX3EZNEmPPLe ICAgICAgICAgICAgICAgICAgICAgICAgICAgICAgIC AgICAgICAgICAgICAgICAgICAgICAgICAgICAgICAgICAgICAgICAgICAgICAgICAgICAgICAgICAgIC UrZG3EQFJiWTEuXIXoFHWaDWMoRNUjIWFiRPWoMMNySENsHYZaUEIvPBXrNXZgUOIeHONkRLPjCMQoWP AgICAgICAgICAgICAgICAgICAgICAgICAgICAgICAg JKTnTNWmQFAyPQVwFQ5XFQMwSLYzNQUtQACuTSPeVKXxKSPkLMYbUHWpJPHwEFGvJQVqDEXdOEDxXCTs CEEtHFBwSVWfZVIxSJZqRUMySPLlAKTqNPRjGWNcXPGiUECcZBCqOMUvAYYzFUIvQMWpSWWvQP1CIW55 gVHgo9C6QKBeEW4lcsc/Rz6VTSirebFqjQHnSJ8NCe CeIW1znl9NOiEnZR1dth9YELxPYoGgC2V6xWWyUQVnVRJIPwDbL85vACznZo32BEtzSPEdEkXnIAn4Pr 2NEmLsL0wxBBZlFjP2YWUjAnV4FIMdSdG6ANOqGrCgDVHtTROaFIUoKHELWZF6NYZbOgMiUVxcOQ4Ay0 GneCA6FYb+Wq0SHW4ry7UzPOsnVRHuCA0zby7FKNbU BjYcR2ZlszY2YZC8KMHcAq6CREOoFHRjcRFtZTQgNMAZGlShV7BqmG12GAVKHa8+DQplbmRvYmoNCjM5 VTZqj2ExUXc1MP6GZCBzYPf4aHXfQ31iy2TxuFCeFahoU0WbaIBZSqHyaAtfMWEKXmKRRIT0WQxqMDJl OxFzMQMtNmylGcNKIEuHPwVeJ1Slq9PqNwP0NTJhMl QgEUswVBRlPrZ8AJ85yOhgYL5QTAIdXGDoFG40RHI4FXMrDf4SCs0XUxCpSH1yrr6FPWZrOIGqHjnXZi u2YWucNP3OxWBgQ2DtvUUob6wXBaXxX0UVHLX7PDOvUn8FSFUcYzJyLTLgUUwiHK6wVQMcTXIXdFedem E6EJ2RKB2xpmFcNA1YRsHiRw6kSv1PJnGrI8HpZ5Qp XTIzQYFRFMuyDN9JVNuaKV2aRR8Qo3CCwYTesC1qqs2HOSIqGUYoUydsuf0RXbnuN2F9aZdzNMGoUxtf ABMSVJuuWN5MRQSpIVY4AKCkMhLqRWPSNrAyI50sSA5BO6Npe84aGbA7EFZdTxArNWtjZD19wDgvwtGg iDQdbVyfTW9FRc5+DQplbmRvYmoNCnhyZWYNCjAgND XWYqLaJSGxCFPbCIQdJiW2DyPqGw9VQMCsUYYvTKBhCyVaYSSbEGGxQApsUXSwMXU3Gsx6OXHeFQCiMJ 0XFtUoQRLjRBMgWZWdMHLfHDAfsz0FWJRfTPLgXXS0AeKiZUEkPURvIWawTOErYCZ9JyJiRQNeAQWdRI 6FMyQzNMHyYDB2EhyhRKJoQGTsqh3WOZZoATPmBsQn XmPhNBCwBJQgYGydKSCjTSR4IhQuKIYxIYJaEA6STyTiTDTfRAVeSKGpIIFiOPIyoe0FFVQgCHWqAMTe JLRpGILfNJHsPDszPQRxSPB8XZQ6DQOyYFCtDC6BUpYyFRJmJHP5NvVnFOZdBKRgzv9XLUFjECYjIksb BKJbHLUkXXCaKFeuMIWzASB5HZUzBLYtJXUrPU3LNk WlUXDrUYzqTTllSKNvXDFfjv5UVOSqQKQaBUAzSaKcUWNqUFIpJBhuYJSkVRVlEywyLPHiDDFaDN9SIa KuDQXiHuA4FOVnXKXuDWFsar9BUKIfVDUcUQG1OePjWSAxODVsRQeeNVXvPIPaTaAyFSNmJFAnDZ8FUp XkSHIpMcM7NdTyEKZsTYWgjy4YHOYoZHHpYkAxXrDr QWClRDBwDAjfARWvVWGyZLvbFFPfPLIiEW4LIiYoUTNxAnBuWmnfNGLhLGAfok0HEMSuBRIjLiV2ZaDx WNRdEQLrOKydFAMlGWY3TfWfKUIwCPIhWF5MWlMyBBUrNdE9PiNwHQXmPHWmzv5IYJIpQCLcNPanJYEc OGVoVPJpLYokLHCcOBN8Nhn2PDKjCZHfJD6YYaFmMZ GlXiJ9XbueEHGbPAMywz0IZBKxJGTyBzP2LBSsZLPvGHUwFGduDMKbCNE0BNJ9JTYtKQGeJG5UBvWlFD LjQta0RqHaHCTcMMEjpq1TLUTmDKXmCum2ISPoESHuVMWqIWxhSSHvGYQ8VeXbDNGeHGRnQW2HEiUoCH IqMkxkMzMiVKRnEAZzwm5AWGKzXXFoEFniFMWhLGJx TCElCDhdOXWnHCXqYgm5RKHhRFDhOW6RFxHgBDVtBMJkIBcyZWPlXRPvlg4LAXUhPAC0PLOnHZSmOMJf EXOjELs3luBwkYAhTAc3FX1JW3FwwvEjCWNCLy6Dx751WYGaXADzWn0KK8lvLc6rMRYuYMTODz7DILr0 FgAnVSIaEXS4ZPXeJAjoBwHkMBnrAAxbMGS3OZWiOM Y+GGh1YyY9ABZ3GhdpCRC9NUPnQnG9WFAoKQQ8UyntZQOcQw4yQTGRIe9+DQpzdGFydHhyZWYNCjQwNz A4WNfzRMYTKg4G ID Date Data Source [id number] 12/05/2020 08:33:17 AM EDT [facility] Name Value Range Interpretation Code Description Data Catrachita rce(s) Supporting Document(s) [facility] ospital ANOZLc1uBxTEAzZby1LmQkRtBUQaGD2cnep7A1Z6pPSnV1KduTXyq0tyS1VnS7SiPADnALVRWR2AhCIl jb2 [file] CAQSut+Kgr/IdLCr6eA0Y7Et3nmesK131rTSCLGm1A/7Fvqj1q27e54f/eOif//+7//pn3+J/fP//group home [file] T34OuyXWBKmQ9RmSyXkaeU+MdDHuSA1PJKOYDHNELZ1MJXTTOTAJXH0TFESHMGUhU2ZeDUVTDZOpI6V4 pkJrGWBEE590TW1UU109TouQPVGdVOTAKIXuzrUDJKFPsg8RyXj3kcfpaHm82U3M2FKK/cREPzHxvnM6 mDtwqoVVLFGYLqrGvSOmERUvaSXHCTEEpHrJ7DUM/c DZQeKEK1x3VyB2tXD/MdFPTPQTE/8YUX7l8R8U9ZZw/pW3YSRnDdW2zUrmJnHHnDNusk0F1LvR49GAft VfA9qGrR2TepiM85oBfaLosEwGkumKh0m1Xms7Jt3M5ugqjZ9EOH5Vp9AB5PPJo3V5pBCtwAVprZ2Jpw 8U1HJxhNvNkVSMEkOvQQRIEKZ4FDrNa3QAPPWVqkyG 13hplqNTdGw70qFAa7Lu/cQ3+SBFpDeOpxr3mA3EjuQIBJAcwqM5cBQ2slZ+0cwe6h7F47nqA+8GiSSR KWJHgh8dfT5V4WlSen7chOWAKd4TNIOiCGUYWNVHbaUD9aq0EFs0I+0ewgnH1J29pL5A19L3GBUA377z rJlqDuf/1kzrPXH/c/IrQ1ukC118HA+tvXPA/i+QCb 49gNV+6ugQIo2eh7/hn/Ngurpm3JbZ4++Pc5Pl8t+j+c0J5waiacusvPPAHdq4NP/1ij0C82vQvpE9j0 PvHKy/O/0KuTicYcr7HJ96c/4bw2CjLKn/mx/wpSxqQ75iYSJ9XejqTa+1g/zhYc6tO05n6Od8VjDqjl Lacb8swz1Jog8XbtMaYKFnfr748w8wscPXOy6Somqu +y7p3C4LUSQ4xaR08rVT6UzI5qtG5VeKIIhD9NocTG1wigPLaLEu1u+9I9cOeyGqX+V9qcScKHL+YqGf VLdyTdjMvPT5vqWnKFh5PotaoJljfTCvgJVugPgwrWC8LbGkGIdhwHwXgTWg0RaXxHfKEoVqyENVsTRG zI1lcK+tOk+cXn/yxDtsnDzxDRJJIikkBeTkiV+director of recreation therapy [file] UELOAm5xBjElAzaszwlRVdesQOZmAFzMF/hgwVXj1Qykaz3DjGq8wg/Christina/jj02FgJi+E14P8MiE7L2J d7lph4541zCPBhyGipc0rw5zl0aIi78q0gaLQnf53jbin5R+/Sr5bisfiyYWBhfgfHfQ9F/YJ+PXbYwU Ddvz1xhRlkoDHf4g6wnP7fVjrtX0kuQbrdl1fA0rGr POV0MURgrhY99H31GWx83V5Oij53E7Aj9+74oOzPOzwo+/mODsr+r+QpOpTn7C/iu/oqP1/Op7fdPJ3H w7/yE0yOY+gV+vision rehabilitation therapist/UcmdOQ5yq1mp4Z+dY+gdeoe+xqsdC/QcD+jHM+5p+FfnGPoF/Ve9DbaFuNo9l7sa KkC1nx9ofiHdT+gNeofeoe/G60ga8GD/dfzMUzvop4 6hX9DX/LsDfuoYeoFeoFfoFfoGfYPeoDfoHXqHvkPfoR/Tp58T6B9ph1T7E2barO+sqPp8GcgY/0oN7T T605NkG3eV1NQ860BnC2oW8OV383YgA4uh/V055rcHbl4BU00N/ISmnEnrSNmSukMiyYjvHKxX2rBr6F M/w79S+FcK/7ifVdr6R0L/pR3Pt+R5xhuwdmry7Tv0 nm8v/1l7+c/dYLdJ9lS58Mk4EuhJ/YB+Qj+zX8Nu1ft/dY6h3+2NdbHwr/JYoVfoG/QNeoPeoHfoHfoO /B9cmQEG+P4N/d3towetd3Jn3Njkm6+V59z+UD6qLsfubx5XaO5MGn1fl+TfuFiON2gLwX63RH3amz3i 5Xy6/aucZyfm3+1f5by8/aucr7d/dS4u3CQ9/Xxjrt /+VR5v/+o5rt9v/qagwh2zoDesJ+M0ic4p70q0M2uF2S9vF6z2zjwg3rpHu6g+Xph/F+gn7NacOfe/F8 arhf68/at8Xtu/zrz42pzsKWtdADdZsLGo3Jr2Wu1L13Fq3Hp4Tz8ceM+O++nQd+yB8WB5Dk8RusRT8i w64Bf8zZy0Q7dQ0+1ykxgzb32oYV6f2vjX/pqPRxzf +e5Q9hjbo90/2e3N/+72ahzX+4bIx6u2w2K/un3WHIUCbaASdGrgSi/ffE6e/+ZcpdbCio5EsINNtKDh 3UP57MbFalDaXgCo0A1kWW5tF15xG1AgVkVV8t7ibQs/07sQDCsQeujO4eCK31Hwkqj/FXsLdsTMa/CI 5123Bs5r2v+mVQiEt8KIa5/tjeey/sy4cpagJfnY45 K/ymvF9+A+T/hX5/q9y1l6K/y6hvEzvW8Qf/N8fdfA4rh+co3yd7LrxB1lqohUPAn/xuEW/xH9tw5Py/ 7c0J8b+tMPd07vu0t+lCqAOgME3Pz0Qg+va1Me1NF01t/D+4r8hv0cn+V7IrPB7V3Cel8uQgIO5S9Onx 3mqkFY1D2Yii6ojrEE8l4qr+LHlhMFvqH0Bj/X8Xwd zzf8q+gbXuNz8/Kfm5f/9Rf98kr/qsG/avCvGvyrBv+tcp7oBm23oq/PvzTf1Hr8Cw3DzuT/oK/vwdaL i15ydch7zry+qoG/pyCaezr37xu9ebq+mPSc73srS42/LfyrFnqrcWAU/4lHs8tjprw6nx/UhgoZTM8U ngXcqKYKVwJLvkAm3zimbxetJNzXYnytmhYBUJ+1eY kW/NUI/cJ3Lsc2a8LTBo2bG6i9pySlXo5Sq2BWOh8tc1JnBh2kOZEsnx/QD+j3+XdfkmRMB819tht3zo c08FcN/FVL/ip+WfBlLK0Wk4N8drXglE5a5gTIqhv3DT6Y24/A0jSxnzkPU8Eat23Zimd/Fc8o+Ks8Xt XbU28QQZ2C/mqGXp7+cHTZkm0HxLyYCo/8wEQGS5Jm nn5rwV+dY+j96ecW/NXu/xb8lYW+P++NNIyRIh0qn3N7Uc4DdP0K+LxIo6Lvesi8kGI/Syg584XdRlMX 5/qAJum6crmDwolpE28v7I+dY+rD8HAW0b52zEB/UgJCRd4RrG4L+CtL/eqHkYgiPdchU4Pyv+LYoDfo OUiIMf3ZeIaGIj4OQ+cz4Hl0Xf+1Vuu/6i7cPEuJIw LV8Vv5CKrV2bPW8607jj8ryDiq7mlS74ZU8B8I7mz3b8O4amWv0hjhf0E5xbJs0txan7H6xaVy5cjsx8 L0sqLw9verg6U0xuBi6xzuc7O4yB3mlVj9tmL3uY1qI+wQsb0mxva/jvfXHXqHvkPfoR/QD+nw6XR8QT 15F1banFvz79PtkyF3dUtmcE1i0Aq/yF0qWY99lA1c d+w04D59Vu2AIwIEf0qLYP86uMcA27SOqrcqL2YcckAAoKshgJZkHVppAbc88Q8S5k70i8W2I+0daO9A vjysI2UrxwCCkLegxF0HeioZ69zbiSF7iu79Sp6e90G3C7ouwc68bQEi+KuYi4O/ann8+J8G/spmrYfa gYFGj7DwmdeDWw97ktgA9QS3nD76P+XWiL24ckX7/N 5wXa/8Yw0i5gO7j4j/VXydrVr/nlAnmk0CZ8XdSnbSIa/yW7Z/FX6LY/lDludGr2PoUx/9z6Iag0t/+1 XP16/6PvKrvo/8MugN+bss6DpXL/qy5EmcM/QD+ry8mO1DX2+JAjJ14ZIAV2WL5Ku7Gy+vn5Dp8NT6X/ Zfee6/iuP9vb+5Mo/9VxrH+3u/3dPy0954WbtADxbQ azz6/b2f/527lysDHx3M4aZ0SQE15T2YiLYeBfaeZtk7oORZdm6NX6XeOi/9V/pu9X01xd9mb5C/Vfx+ 77/PBBoig3KXd8/+yvI8Y+t7HN+/z/kzq82SeKBr0392Bf+U12p0LSfk36+ae8/PzurTzd2TfjgWiz7a IAJsby04Q9DrZb5pc1KoInmeG10bycGTzlNlsVe1rw pcTTx51u4sVe//XmM1fscnFrP/oof9L753Pios4uba/8utte2Qats8yrt2cqxip489Nkf0eSF89MH/yr H/yrH/yrH/yrH/yrH/yrH/yrH/yrH/yrH/yrH/jm0Bs4Vg7ZL7Ol2he9FX4ED7aB1yS0qc1WI907ArX0 ux/8qx/8qx/7go70QmpXG6sSX60QL+6FgfdOy/cuy/ cuy/cuy/4e9bf9L/lWP/lWP/lcO/cvhXDv/Ksf/Ke/jN4vFfd/pW9bf4U/ucf33jtHz9Lgj/5dh/5dh/ 5clfxe/r+9ex/6cPw96Blzm0isu3jrw13Y7vj6V7m8Q/4aP2q/io+cpZg4i2A/yrPV97+FcS+tld59x6 u4d/FWPaLH/DZ+4E4dBsHxgP/xvhBq5wp89Cs2WOUg 1Bv/nzUkvPbS6Rzu/xbRaf4+RzQWbHf97z1QsD/VcO/srDvzrHfjgoB3/l4V/FXBb+1TmGvkHfoDfoDX qHvvZfee6/ymPoB/QD+ge3gAqL8r/2m93H/Sq+rgd/ToGVA4lXM/O23TXdQX/1q+ajfhU/2a/zB1mlnk 59+0dy1Oc9z0W/9O1fRb/q27+K/cbTc0yXQ8/+2a/y n/tV/ayWr2O3lB//avf/Hv7Vfi+61PpRD/8qj/V5j7rU+m+X4p+23Vaam5e/a2M246Ykz+c75K24Ao1M fkI/oV/QF1/Wmubyegw7Tr3Zr2Qn8P83Nh1kn9rjdp9C7kwbo5nfbm8O5webO/qHMlE50BlrrPGqrdwa xqxeIhZJ7NA8eo4G824B8vw7QsQ0up7Y023u0rxC6n x9IqA4de1Sh2ej+CQ2J1WfEWyge/M1PF/Y7kS2A2HuFbFH0X9Gja4vVkAMSZZo8Y8OK3RSimQi0I2bVF pPZ3ZX5S0Kbt3gokTK9S8Zmt6ebwPR2K8Cia5byqII6P1Nul7fviJM3D8Unf97RwcH4+kEOn07ru622A eO/txIu5dTncAc5Te7Yk1H44Ce0T/oB/QT+os4ln6a hX/V4V91+Fcd+4l19hv7ojHMbIywiDUfBIvdCQdV4fwJ7kW1YqY7vU0j+Ng+Kv6oJ3+Tx5Nkyep2uJLo 5Qk8As80kq78PXu/3jCxqgJTlYg3Fg3AlwdwAjtO66OFp1MruTj8u7/s2H/UuK654Cc49Q9+vmo/f1+1 n7+Hw0ATxA/QN+gNeoPeoYe/seBvLPgbC/7Ggr8R/J XkcbU3+KvwK4K/7sPOhS9qa2BFz5YQ9kzH22o6OdKOrhNs9Izdqx3Ig+Xx++iA85e6oCYMTygqmm1ihf X9cdX6/gB/NcBfDfBXA/pTLK90yK6B1HmP/MOMbnINLu4mQzY12QF/PjOmKcMOYun3p18c12PI1/6Q2r 8xgr+94uthY2kfEdBclF72ZL/F7xaD4dC8dnWn00j+ Vf5m+7g4Fo36TjNiscW8w+qDLvnd9BdKUKk/Wvkb2/vBdB/53wuPJA12UX7l12z/2Iu0SN901FxUtKi5 q0sQqD4FI1m1dbf83phjhT+RdFB8tziu6y/6fo/G5q9G/LdVvOS4/atzz7d/9TrvbuPtX+U+i9T6J9t2 /pnRan1/BH+1ghQN7w/ifRzhX+J78nP8s2YH/o0R/p SWe3f1t/HzKma0eSHnmdl8t1Q92BG64PO/NcBfDfBXA/vbB/a3D+haN4yvDaEfJtKFE/aFJE07bI8M9Q cD/QJGkgYOnodvy85Lw8ceL/AI/yqPBfra/im30a1OU+yg3Z06m91ai+gd+q65di7bFM03WGFM5y7C7V 6g0P56hV9A7ByZ/IMMacQULki6Sn+ak3Di5En6K4/x GeuDA+uDA+uDA+uDA+uDo5e/AQo8W3PoY1/fGorXSdtDPkpEEndXBepPDgaSQ7jk6p4son76BBsH0J7K +Xdv8nwvo4jv/0sSTR97T2ZKkBHU/isk9kScHv2urD8szp+P8K/5tO0Rj8IW7/cDGSQa7nsSdwIsHoEQ Os1ODo0nuF+QTO44okZ+aoC/GsFfnWPoB/QD+s3n9D uK1xTgjX/+9sjXCgrzkj3YKoW9Q/jaFMdXr3b9tCjP9xiigmyEmmCJz6xwl66w7+2NuS/3q9XPj3TOJq +Wwrngktx2p7U2LCoa7Efdi9CshbIbvkPrgb0gwq8oWvUigZ22jkQMv3EII3+l+9guHD/8jTBc0vITeC jo6/lQ7P3sJA5uhz/marv0zyv+aoK/rvOuFzcmKy9e Jn/tufs3FcB8Skx7+ZNTyp+t0cE48S53h77r87L14Ou571wlN/JUdJg5ot15wAr9NE2QV8FK5Kh6Yg/f e4PdiNby57MOa37qg+o27R56Ai+wYtSg5Ttrv92tC/U0Zm7S0/NsF/NOwr8hnT5rm8ccLjjT0e6bm45y N+tjx7P5b8L8pddyX3mmkC5FZ7Oz4KA3feIu5pejib m5Xs9S25Vs1Sd5Qi0Nc/Hy8wfqr1U2owZe6czfr3S3jgEk/9XE/quJ/VcT+72g9p8Q7R+k5Y88Pn39uZ nQRvj8Wr95lYsHQnx9Jq35fWmKBmw3Tu6qoZ/2X81e+3Mm/KsJ/1aRl3mrilr0nwv/asK/hiHeWhm3S+ tjr5awPuK/ffYB/YR+Qr+gr/BLOlypuBWWKvOh74Z2 6nthDoW+Qd+gr/JkANs7ra1F9pCj5BblN/QD+qi5aY6BF+wxx4T075A83Pn6jKEknz/SBvSehza1QbzA sGIu9Hl0Al3SiqN70cX5O03zNP+ajC2y4d4i4d5tIaOXCith7zIumxmf0KA0PQVWY+IHY+6O+HFaGO6G w7Io1da+kPo6ize51J36Dh6RrHaos/mzxlYfDQq3rs r+ZWviyzkt4PxfES+lm38crPR/Sdj865LNqsU11ewsguvnUaO+rM29F6et/GAeQz+l95sG9mLjDg4rWC O/oF+lj/sLipg5IA/QK/QKfYO+QW/QG/QOvUPfod/u7BhYhn4Shjn++KiF/Vcr+Sacr22nl9h/uoK/iu Pgr+C8jV062Ar9f5+8gr+Ka4V/Vb5Tp44u8A4lv0Vp +c8r+FgtI4GsjjzGtT6WyeeX/NV+N6meE0bFZfDl3v4TK0/A4qnYBpnr/vubSI2Nc7E2by/f/FVwYmvz HnK4vWQ/VJmi7sgX2J2St/NLmuAblt0viwcy1O+2v7di/6EHuQgF4T52z3WKqyGbdgDIXXS8Le95AX1x WK3ubCzpIRy/dMvHy8nB/E9veh6bEbyokG1c+rNVPO yK+TFwKT0XdegdeVERE92y0G60bnimRF01sgEBu231wPsc5U/oF/Sr9BE/eI6hF+jRnyN+4TvT28Mw6G P2ozK58ggYbUk+Qz+rF7ZS2Qp1S/pV+z4wSH6a7Ks/Xh3Pt+Z1afxnklbuN/WZhNSb3Lt5EWwFC0h/eo 6hx/jcZ/Xbjv4c/lXMEeFfnWPoBXqBXqGv/ZTl3I70 RBLcjpNd0jk+av4Y2eLuh0Alh/sa5T+pNyXgd8R93Ygbp5nS3+1lfB2dqFdy5L+3N7JfpG+cOg1ZzmYm rFn+zdyHT2VgkKCO5stfeYKe6fev3G/5VkBxem9STn3QroZ/+ZwYA4O/xpF3Zwp7Nq9iaaDy+Ds0BfPC t5sZK54lb35uA33jKT/VQx/xkqGP/Uihr/1IK/ircw y9Q+/Qd+b81PEhFE3W+50F4Tx6y1viU+lAm9wkd39UoMlWrRh09xqONwd3Is8onHFfZv1Aj08nyI1JnA fLzTUQquB4ab+dM92kXd7g3mYYe5osjgAQmxCtnK/j7pvhlew3FPOOrwRajBXhsy8ydZu8iSLI1mEHsF cvqW/nj3DGwD0msoG/buVFwsI41PTXiSpVnIvA5btB Ipl4CmJkoxeF2WghOTOs6hkWP0H+hz3CAQApvSzDNIWIxMi0Gf8ZQHPFENRRTD0lg1T0nVtlPVAX1JMA qOsNEjPCWHPLdVm0rJ8jVlkOWjTIRIFkFXcdVGWQ9TWSTjgqLZUF1ZUAVtirIDOY3KATLwvaNCUX4KIM [file] OX4fS96398V6I395JWq6zcGoT7s70rUr81P4zj6O0P WLX3a5tzUWo1qvwWtw8+8q2aTtcXv4SVo9cVHv89vIMkpcmLoVkrKc28aBOzHECLO8Fvla0N60YLr4An 3RAwL8YD86aFpFBAkujhYdKcpCvNF2jcbaRkdzGpi5GJ7LUUOujWGi1YgseOhVLNYJARz1Dd6FXSJpNL +lWrmPNbDYBHVrMYB5RYhJmXGXjVJQ41N0h3iJXZYS QSI0BbTulKAEHp3BXRBVibQnEYdAMr9t6LfpNh5fMkt42+D6IU5CBTNPmCsQYn+2fcijRr2EUN7VI5fy P2txNnDreoBW4UGaxH09N5F5kG8/9rsgPnivAhsfHyndOfjnDlg2mvk+cO65pvT9pjQmQ0Tq7OHP4Nq9 enqkJtjrcAbXrrU2mqvPre9N8DV2vF5Ah0JuChb1SM JYTjfDeWfIhBrDM2wgW+yvPB9N6FnCUBwlZvDPRqSHlo4SOH109kpsEtyZQBSX7UREIVe2zNdKix/0Wd LuIgXg1ePzJHN1ZEBgqqarUQ0CSBRhA/SeTjOXj0IRPLAlumWS0WPFrLMGkyWiTxk7bkHdXzEHwUQbEa 6WBp/9TH2KIC8vFlX4iHwU5GiZ5wyIIocRtoBtRGFa DtfeRXkhXZasj8F55whds89nPq4X0FIM+1CyHku+EEM6crMgmknoZr3Z6oT2KWjdOi6T5kTS58UqtnNS K0grXgjqOYH5a9Fd3jbp9LpSZGJx8qrDV9a1HPZTznszw43Dga6oGJg4mra1856n461LrXfafrBz7ejc 9oos3jav0tmf6ycu2xlq1ammosNpmiZqqdBsoiPlcb BtndZnufCluHy0zXekGvHlrQ9eB06989Bte4rTzs+8/p2y0B2b1f50d1r4K84rwpJgFZGG/u3jD19/+f 4f3r74/P2nX7/7EN83M9nIWf//6OA5ZRHwP+F8dbat82+k/bwooquz13aI1RwqbI+u8ZE3/n91Bld8/u tv3v/27Ztff/3h4w/r7k145cKKD/r3n1lj8t/+m3df ff35h9/+/N1Xv/r402/e3t6++vKbD5+/f/n46obEG04+7jcff/GTBt3+1V1EP19q4vzw8bW+2ufvv/n6 6qmWuwazm4/9jZ/dc/D9s19/+fXXn//er6jfO0s1rm0aC92k+Lqpd++/+Xkce428f1bmY/fAd9v307bv fvXpu6++uO/03Sf//LOx7aqb6+yfvXv/9smXv/r1x1 +9+/Tt3z7/3Nt6y3bg/+pzUz7Ufp4ENnrhfn/bG94rImI1th9/+fb15//8/vN/ehnu/Yh0Ot76+P0/v/ sbv7/Hsvv3n/z5h//441++/+4Pb//+32+/+eOf/vTtX/7y3bd/+oe3T7/94Y/f/fida59k43i///bnH9 7GL8R+gA8qhwThCcHgPw3RL9e3qs6pC4W//vtf/Ccv v1PGJJkY/g87tNz0ODrOjzlt/w/g/hS8zUCI7j5EyBfcXu3qw/2Nnjkj2YQhKs+ynVx6Rw/sy0nMhpc+ so2y4us+wVff/cd3L/wycodu5j4bbsg/4LeOpm0+++p1ce2okYqNj2vPt4j/lpYtY/GyC2K5Bnsfb64b 55IcDM5SE2wCnmCaokkdq/7x7S/f/gf6Byl3u096r6 w594++2oPz7dCE75/PfsBff/X2xx/+67u//J+/uvk4/QUys79r2/48xeunZz/Be2837bxi/vfr3v/45x 9+evqdb+6lp92LBJu/uhzMl427ZW/0exI7Tz+F9fmjs+7g1Egtm/vXT27+iplKgY75D2Gy9uDAcz7ij2 7+4e3b//vdf/71i/M8t0t+/uUnH36+d9L/5s3sg1N/ /+V3f/+TX5/n8E/fff/hq687xOaP5X++/d+///Y///sqOo17y8R02z/+8NP/1/ty/enf//q/jxG/+vOf v//oszZ+8oPT3i/+/MyUwWYH6vdZLWzs/MN3v/+fP/zx96/7++tkPVQ0nJ52jG/46X/+16vP/eGjj3/1 KK81c7Nz88bn4Ayv/o/v3uTtz//fUxgM9fCTzbj93/ shr4ui5l1s+QLY4m6ES6/3/h7WXj+u+WoP3R+87nmgY6By326++fKb96/usqnu3qfa6+u3ig5Yhg3oqz hrklIwxAFbQF0WLE8wf7BePuR6RYCzl0XsTYxlZIw2yCRgELoimfVwy5ImicaxH7Clv1TqZdUmIEAuEr BhRss8ZOZeJrK7nUWjGnKeEGIzN4NtMLZtKwJ2OjIc WEPIOD5HPPQbizXsPoRbKPV+BiJeXX5lyeizWHQtq5EaAHgtBXliIABtF2M3qAqrMLNqL5KgsC59UAEy A8YwpbK2YQY6CYDiNrKdIIGtgYIdYWGtRVY+CdCiTF6lsscaEWVwx8OsJRzzXUA5wQ9sIDtTZNOZRYfI TRfwPnE5i19uzxVHPADsWPMtLA1VouDnjEysweWqfS DxGTH8YrAcPMB4NPPnHEJuSNAJIHLiIHMhJPDtLIEiY2DchWhbPXhATKHBBXaZRErtNuBhd2R3WTYrak OVEGULM89lNRuIZoDTUVmmJHM3PLUrOWatM5X0GthvE1HrWQ8VA0RqCSHiYEUUFIHpzlJmZV1YalIwzE 2aOXzYBJOMQEqZYEdoHtT0t79nmgPGXUUzNODtKIby YPCcXPEhOINgKEMiEYQqQTChQVMaFS7IO5SkJUGkDSYEQGH2c1OaHGEkedhmowshMw1bbyUxAto+Pgox EMQlu3XeBEddW3S5cMZkO6WcN0SkXY7YdYYdUYanNDLxGTNcEANrU232lkBiBI0+XQ2ig6BeMiiyDNIR NACkPOZfXOZdIIS6KdHgPDJpNAYxLMDzSeK5JgBlTc PMPRLjVMO6WCD0GFRmKANvJVDsYBspDYMuFIQ8ZkXmVPFqYLInPQ6wKeLaBCXlQqTiIpRdWPVvCRYtcs WPATCdUXKmMHFzXWL9PTTsUEYzVMrdJFPuZHUbSHU2WUEmLVOeHF3bNaMxSWUrDYIpOuveIKExUFNaxk UNKROyHRMcGKA7SkOyXLMsRHClOAjpTADbFGBvGgn6 VKGzXKVkWP6cEbXwNEMjAWA0TSsqDXEpGPLdhxATXWRhYYSiEGHdUsEnPCJuDKYcNXhpRMVbPBTlBxId OCFpFICrCX1dFfMcPLPzDOA3PZZqZZEaUQTobiMSKNVbFWVwDFz1XNSgHFMoAVHfHYcaNQSwMKLaXNA7 CDJeCAKoCB6tLiPrQJGjGQAzBAHjNFJwUTGioyKKEU WvILHlUOS2OFIwWOFwNIVeNYpjQDFkVUYfPny9KGEdJRPqGJ0qUhXsPKGoTAR9DUPxJQAgMFLpxwTKLB NpLJZ3YTA2XqVlZPEzFTRvJGjfALZgJLFmTcN2RLVqIGIkWQ0aZuKrWBVyTQP2NqWiXVXzZAFpwzSANN PcRVJrJXW1WoFaEZYxXUPmEBrlNRMvMYAeYKNvPZJ8 TUP8CLPkEmYhKChzFUAPEQrBC6XklaWyZfGNM8stKs7xBsXhFHQKJ2Xfg0KqMUIlOZRESz1+JuO4YIW5 xUBrMwh2XWM8BCamUYGJNi== ID Date Data Source [id number] 12/05/2020 06:18:08 AM [facility] Name Value Range Interpretation Code Description Data Catrachita rce(s) Supporting Document(s) Folate [Mass/volume] in Serum or Plasma 15.00 ng/mL >4.77 [facility] ID Date Data Source [id number] 12/05/2020 05:41:21 AM [facility] Name Value Range Interpretation Code Description Data Catrachita rce(s) Supporting Document(s) Leukocytes [#/volume] in Blood by Automated count 7.1 10*3/uL 4-10 [facility] Erythrocytes [#/volume] in Blood by Automated count 4.15 10*6/uL 4.1- 5.3 [facility] Hemoglobin [Mass/volume] in Blood 12.1 g/dL 11.5-15.5 [facility] Hematocrit [Volume Fraction] of Blood by Automated count 37.5 % 3 6-45 [facility] Erythrocyte mean corpuscular volume [Entitic volume] by Auto mated count 90.4 fL 80-96 [facility] Erythrocyte mean corpuscular hemoglobin [Entitic mass] by Automated count 29.2 pg 27-33 [facility] Erythrocyte mean corpuscular hemoglobin concentration [Mass/volume] by Autom[facility] 32.3 g/dL [facility] width [Ratio] by Automated count 15.0 % 11.5-14.5 H [facility] Platelets [#/volume] in Blood by Automated count 258 10*3/uL 150-400 [facility] Differential cell count method - Blood [facility] Neutrophils/100 leukocytes in Blood by Automated count 61 % [facility] Lymphocytes/100 leukocytes in Blood by Automated count 24 % [facility] Monocytes/100 leukocytes in Blood by Automated count 11 % [facility] Eosinophils/100 leukocytes in Blood by Automated count 3 % [facility] Basophils/100 leukocytes in Blood by Automated count 1 % [facility] Neutrophils [#/volume] in Blood by Automated count 4.42 10*3/uL 1.8-7 .0 [facility] Lymphocytes [#/volume] in Blood by Automated count 1.74 10*3/uL 1.2-4 .0 [facility] Monocytes [#/volume] in Blood by Automated count 0.76 10*3/uL 0-0.8 [facility] Eosinophils [#/volume] in Blood by Automated count 0.18 10*3/uL 0-0.5 [facility] Basophils [#/volume] in Blood by Automated count 0.05 10*3/uL 0-0.2 [facility] Nucleated erythrocytes/100 leukocytes [Ratio] in Blood by Automated count 0 /100{WBCs} 0-0 [facility] ID Date Data Source [id number] 12/05/2020 06:14:18 AM EDT [facility] Name Value Range Interpretation Code Description Data Catrachita rce(s) Supporting Document(s) Bicarbonate [Moles/volume] in Serum 22 mmol/L 22-29 [facility] Chloride [Moles/volume] in Serum or Plasma 101 mmol/L 98-107 [facility] Creatinine [Mass/volume] in Serum or Plasma 0.86 mg/dL 0.50-0.90 [facility] Glucose [Mass/volume] in Serum or Plasma 81 mg/dL 70-140 [facility] Potassium [Moles/volume] in Serum or Plasma 3.7 mmol/L 3.4-5.1 [facility] Hemolyzed Sodium [Moles/volume] in Serum or Plasma 133 mmol/L 136-145 L [facility] Urea nitrogen [Mass/volume] in Serum or Plasma 13 mg/dL 6-20 [facility] Anion gap 3 in Serum or Plasma 10 mmol/L 8-15 [facility] Osmolality of Serum or Plasma by calculation 275 mosm/kg 275-300 [facility] Creatinine/Urea nitrogen [Mass Ratio] in Serum or Plasma 16 [facility] Calcium [Mass/volume] in Serum or Plasma 8.7 mg/dL 8.6-10.0 [facility] Glomerular filtration rate/1.73 sq M pre dicted among non-blacks [Volume Rate/Area] in Serum or Plasma by Creatinine-based formula (MDRD) 87 mL/min/1.73m2 >60 [facility] Glomerular filtration rate/1.73 sq M pre dicted among blacks [Volume Rate/Area] in Serum or Plasma by Creatinine-based formula (MDRD) >60 [facility] ID Date Data Source [id number] 12/05/2020 06:14:18 AM EDT [facility] Name Value Range Interpretation Code Description Data Catrachita rce(s) Supporting Document(s) Magnesium [Mass/volume] in Serum or Plasma 1.9 mg/dL 1.6-2.6 [facility] ID Date Data Source [id number] 12/05/2020 06:14:18 AM EDT [facility] Name Value Range Interpretation Code Description Data Catrachita rce(s) Supporting Document(s) Phosphate [Mass/volume] in Serum or Plasma 3.9 mg/dL 2.5-4.5 [facility] ID Date Data Source [id number] 12/05/2020 01:16:36 AM EDT [facility] Name Value Range Interpretation Code Description Data Catrachita rce(s) Supporting Document(s) History and Physical [facility] VHHOFo6zQnFDRsGh56/XPIqyNKZwt0OfBBayYYg9NNbvKFLiF3DuVQO3lG5kIRB8CCmXAeSwGfIdKqY4 lbm [file] 5dbAhi9a1y+a1aOAOrtkhO5hqk0Ybd3anny//pSOWOjXfJ6/sH1XubZnvd+lAim0WX/nL6D/peLM9+[employer]IVER 7HvlT4/waqgTKqH5yXU/Rg7B8X6E9ywGiLyqiMaapJ ez+8x35I/gmMe2mWyk+898R/0z9jsCT3l2k//Md+EW6b4U2u/tmmxRwmCIMXoCfSrW9x/nmYAo065NH9 +wM7I9bnddv+1xjG7AghP1K0y//ujeiddfqTez/8L340/N8TNpU7WN2+ZM+OjEf5NzHfF1u4rd1Je3o+ LV1+rN5L7w/ooyamgkk96sXD7Z861/buun2fdloqN/ 3S13X9s04LoW9dK3YUw253ukDeP1ykY+Xu5ZPV35Mcr9Wn6U6Fg+Y22844Rwn8Cl1Z/mO/BX1571/kq9 [file] guzman+U6+/9N2/J+2y3/yiX6V3bZ6a/Wyazz0sBpOrrYE +MvEtPaqAtM1HNSkUhS7W/sd3M/NFRkyc5cgPADtshx+Yl2a8/qORvyLRK6zjV0egeKxWAy2CPV0Axlm 0LK505nk3b0UQ7xs5Y9u1/b6HO/TdRaeN25GwK4nKdNbxj7FX+aLpJz6eicwQ6A5x70+k5dnC4qvTY1y 0E8uvHUT+br1W+He3UZO1t+F05FXXDavNix8FSk4hY 3um2YU1bN5yCfB1+DX9qYBp9ebgpO9fwV51U98cdxfXWm0vUjt2lK+kwi9PUmrorrPuk7V9ZCxif5Fxh kXmCk5hXuK8cWzb1PVzepuW87wr9O6I7p0Yh+J8baNkghbwMwn31u/hu/IAUsVUlaLl1sJyY39ue2o90 dT+0uzoMc/IJ+6+4M1lghSclUzR0bZOAprwEIxLsQW W9J8s8HgbABJbgQFID8kZMWzHO88vKhLmaf4Yx7u2mGp9E9CjQQFsAgR29rcPd+FfvIT+AFNh/8NUANr tvCeAa8baQLhjm16klnsE1nmX6xquBxgc3Ta4Zuqr2bTGW4fz1dxeuHidStAcTI+MdLtstfvvK/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 [file] ICAgICAgICAgICAgICAgICAgICAgICAgICAgICAgICAgICAgICAgICAgICAgICAgICAgICAgICAgICAg ICAgICAgICAgICAgICAgICAgICAgDQogICAgICAgIC AgICAgICAgICAgICAgICAgICAgICAgICAgICAgICAgICAgICAgICAgICAgICAgICAgICAgICAgICAgIC AgICAgICAgICAgICAgICAgICAgICAgICAgICAgICAgDQogICAgICAgICAgICAgICAgICAgICAgICAgIC AgICAgICAgICAgICAgICAgICAgICAgICAgICAgICAg ICAgICAgICAgICAgICAgICAgICAgICAgICAgICAgICAgICAgICAgICAgDQogICAgICAgICAgICAgICAg ICAgICAgICAgICAgICAgICAgICAgICAgICAgICAgICAgICAgICAgICAgICAgICAgICAgICAgICAgICAg ICAgICAgICAgICAgICAgICAgICAgICAgDQogICAgIC AgICAgICAgICAgICAgICAgICAgICAgICAgICAgICAgICAgICAgICAgICAgICAgICAgICAgICAgICAgIC AgICAgICAgICAgICAgICAgICAgICAgICAgICAgICAgICAgDQogICAgICAgICAgICAgICAgICAgICAgIC AgICAgICAgICAgICAgICAgICAgICAgICAgICAgICAg ICAgICAgICAgICAgICAgICAgICAgICAgICAgICAgICAgICAgICAgICAgICAgDQogICAgICAgICAgICAg ICAgICAgICAgICAgICAgICAgICAgICAgICAgICAgICAgICAgICAgICAgICAgICAgICAgICAgICAgICAg ICAgICAgICAgICAgICAgICAgICAgICAgICAgDQogIC AgICAgICAgICAgICAgICAgICAgICAgICAgICAgICAgICAgICAgICAgICAgICAgICAgICAgICAgICAgIC AgICAgICAgICAgICAgICAgICAgICAgICAgICAgICAgICAgICAgDQogICAgICAgICAgICAgICAgICAgIC AgICAgICAgICAgICAgICAgICAgICAgICAgICAgICAg ICAgICAgICAgICAgICAgICAgICAgICAgICAgICAgICAgICAgICAgICAgICAgICAgDQogICAgICAgICAg ICAgICAgICAgICAgICAgICAgICAgICAgICAgICAgICAgICAgICAgICAgICAgICAgICAgICAgICAgICAg ICAgICAgICAgICAgICAgICAgICAgICAgICAgICAgDQ k0I7soWVIiRZNnGW6gPOz6Lc4+FNiMLiTrJVF8wbSsfC8WYB0ag2BqVDwtXIEgh9EhGQh8KK9XFIHrWI tjDY8YIIzbsf8LZTNaPZXxaZAGc4ocGuEvZQX3LJBkUvpbME6MPYEvQ0ubahTbILYjHRRSGWgmCGSDBF oyJGFFLLPqGLEcLkQrCePcCHFvMOBtJYFHFA8NVdEe I0JauZ08CQMBQf4+LIutbbBuUmmJGaAvKIZqw4PsXGg7YA5GCIZvDlrsh3EsSoAjPQMHXGsjFR5MUFI2 USNbEJVuIw7WMUVkB049nrYuCW6BDy8MMzUrRR2tlj6DHpAjRKJkTdhLSde8HWjtXP4VyORsLSxLSvQr WhgtDfv5BT4mEGPyqTOuzWYcGIhcFIPxZRYgTo0fHp 8bTVOkDZT7NlHoGEWWIR7CKJCbGZBytFYfYRWdGYKUWG7VUMkrLUS0JXMudwIaoLPwCHvpLZ7EVBFnfw QgMzIgMCBSDQo+Bo0BAX6os7XmZTtgZBLnIE3nfb3ZPKnNZlLsZ1I8vBMxV2N3RMnkSf0LXNPbPVJwVn LdNAYATGusNL2DOL6qouR0LE8IwPTjKHPnCUHkuDAv DKq9L12pwQCeIZchRE2TQZM+Sharon+Ey2WLDCmAUXnYOXiWuXnMGENDbZkV8VnN8NFv1RjI9KkLR93lWhx ozWmJXuvBN9XRP3eDOSbLBUFQL9EcVUceJ8qfvYrQfTmFGYYFxDnO58uiAOlVTGbDHXvLOBkTq2BTLCg Z8IsbiKqtImedyHsGUKcQBCZNB5BYSvaemXkmFCxbQ teVU25kWqvME7ACc3PLjAnOB7thh0OvMRnCu6SRFSgSQ5RIMLiNYKuRGGzDKN3GACnEgNuNXdrYJHiTF GuMOI8FWFuWSAmBH8PMeCfCBCtIgNvWvHvJPBkDLBvgt0RKPIjCVLpCOU1SMWbKQFnJZQgZZgoTNZzXX XkZWX9LNBnHWLdHP1LCgMhBXWyKGHvYiYfEJTvYAWc hk1WGQRpBKYnGPCmLUPqPHEfYEIxPJhyPMWnNYA2LBk3FVNdFSSgPN0UEmUzEETvKVfeMTToFHWdNEFb za8VWSLiRIVoZOHgLeZqYMXfSGPgFBofKFAaANUfEpK7AMLhNSMeVD7PIgFsSIYeXKO0BiElMPNmDWXw wd4IYQYsUWIdEOV3ThVxGYXtXXBkGHtjCVVjOOE3DS MbPLJdOGJdPQ8GMmHcLBFwFYqpDrKqKUVaNKZuzf5LFQRpDLJuDOklAUJvECHqMKZqBEwzMGXbODQyTK B2EDFyTVCuTX1NSsKvIWVqLhF4UdSuBZWxIEBmlt5YQZIkZGZsXZP1VtEpXJDvKRRhAAvtQZFbVOKxOi L6RZZzQOBpFV9XOlZxHRElUyZxYWMgUDVkVKGatx2O SZUhMTKqIkAwQjMrDZCvHOVgTTsxTCYzKPOzCzL7DNZrALVfPF9BBbPfPPRjJrSbDVOvTMJpTNOnds9Y KNEhXVYgCLYiCKHdDMZrUBAiXGxuVSXjKRV0TfT2DVIsRUHqBC3VQjTaQIDcDvZ4YJIuPTZmBZOcuy7S AMLaSIWeDQDoCaCuJLNpDDSoJTuzBGZkQKX7ABH5PZ JuMZOxFS4FFePoWOBxFvYaRdTlDYSlYVYbhb8LLYGfLCHuXnTzBuYcOKNpODWoRMihWBPpZTR7IvF7VM QkRHKzKS4PQmTqMUNnFotdDXWqSJCoJNYvwt2UEAScAZSaMKE1QSKbJGWpSMQoLRhtXUVsCLC7FQBxCF NuYGIkEU8AHtGgDZixZMPBCfj8VPbkM9o1OWGwUJ6D Q0Lmu2VzEyOgAKADTBnlUQ7pcrEpUKIjUx5OO7rETuzrNXQjL2VjPOM0MOzjP3T2CKaeDND8Tzj3JPi4 EXFyGL3oXBPcIdY3WaA8BfIbTMH5OCMpZLM5TIPxLHloHyJlPAI6LqBfBW5SMh8DNbJ7DGZ7zNBmJr5U Xzv2PQKSUtUvHJ5TXZk= ID Date Data Source [id number] 12/04/2020 09:36:54 PM EDT [facility] Name Value Range Interpretation Code Description Data Catrachita rce(s) Supporting Document(s) Consultation [facility] VJFLXl9sHwTDBmNe87/IUNgxHJJox8XmVGcbNDb7EHayODGkU6QkVTZ2qC7nLBF1ABvKOjLvQnQmBiDp m [file] ICAgICAgICAgICAgICAgICAgICAgICAgICAgICAgIC DhFUSeAGYrJSKdQOMlSRNnHU4UOJGxPQTbIRJmKESuEYJrGFNlPPAaYBIlTOKnAPTaWKHsLDLrLJXwKO AgICAgICAgICAgICAgICAgICAgICAgICAgICAgICAgICAgICAgICAgICAgICAgICAgICAgICAgICAgIA 0KICAgICAgICAgICAgICAgICAgICAgICAgICAgICAg ICAgICAgICAgICAgICAgICAgICAgICAgICAgICAgICAgICAgICAgICAgICAgICAgICAgICAgICAgICAg NMCkKENjZRYrFT9GZYCcRSBdJVTyCIKiVWIlBTGvYXBkZUIlVRFoRZWdFTBnPWMoGENiUYKmODHmWOXg ICAgICAgICAgICAgICAgICAgICAgICAgICAgICAgIC ZsYKJoDGPpKTUlAKJtFPHiEWYfRM2VEXXlTEGzYVKjRERaQVKnDXNxFOCcWOYwLTAuSTUqGTNzWTXzRE AgICAgICAgICAgICAgICAgICAgICAgICAgICAgICAgICAgICAgICAgICAgICAgICAgICAgICAgICAgIC XrLV2CAWZrFQNjEREcNJZwSNXpSNOoZKTxPEXtEMUw ICAgICAgICAgICAgICAgICAgICAgICAgICAgICAgICAgICAgICAgICAgICAgICAgICAgICAgICAgICAg RVLpDUNuAMYlQEErOY2CAQMpNQIbYIKrVLOiXVRzJZIeZUVrEYKzAQVzIWEzVKEoMEAdBLTeQKFrRSIl ICAgICAgICAgICAgICAgICAgICAgICAgICAgICAgIC UgGLGhECXhHDVhTUWaXLGdESYyHOGgQS1GZYNlTHEcSYZkRABdBRGxOYAdUWDyRRMpZZUmYYJvYBFnKX AgICAgICAgICAgICAgICAgICAgICAgICAgICAgICAgICAgICAgICAgICAgICAgICAgICAgICAgICAgIC DiXYHxLJ4MJXTrYHUbJPTxBPTkWUZcYJJlHEVkOLDe ICAgICAgICAgICAgICAgICAgICAgICAgICAgICAgICAgICAgICAgICAgICAgICAgICAgICAgICAgICAg GBUdYNDfKAVaKYLeSPFlDA2BOBRgDMPmDYRlDOSsHVEgECXaPPWtJBDqHCPmJEGtXRYuCGUrNAMmLCJb ICAgICAgICAgICAgICAgICAgICAgICAgICAgICAgIC AuCRByFVTaJCJpZTKlMHMiFPHqJCLwHURlGI8NBF31jRSzl9S8JJVrAW6cckc/Ud7FQKaiteHwyHBzNX 9PWpZcJP2uov2AYgFeDT8vav6EDSyNSiJyC0N4mJSlCEPwNXGIXlZoG25uMMdrOm26NGlhZJAwQgRwNV j7Oo0OUeAxJ0kzRXXmTgF4WJXmLbF0JMYbQpK1JDBg QjRnIJNwLUDyDAMmCNRDEYT8EAWqYnIfFsLuCXFeMZfjCPJYLA7FVuSdZ1JunF77RNuGMt5+DQplbmRv SmzAOxMmWUMze0LyNYt7DX4GMNTeRybtg3FoIRIlACLCRXcmIY8MTCZ5EGBnXJMnAc3FSHNsG945epZb WZ7QXd2LBmDkCH2opj4CUPTwXCHkBrlIXxj0VXzcXZ 9SzGKeGXuDo61uiDf6dvEklDGLVVixUOAcB9cyqJTlQXOoGB5IRWG9WCpxUBTdKsJdGDGoUfcxEYVXGS kINqWbE8Hpu7BrFsN4ONHxEdUrRHccSOEeOcK7QW98mVemJO0POHWwYGHpNC04YJErYDNgFg0VAg6CMa PgHE1dvv9XCQXaIJSjVilDFbf0TQleXF4SnRNtM1Zt vTHyd2uLKkGuV8BBDJI5KIQdVi4KVGOwTbKoRWDrLIanBP7zPNRwRTPHlNhkrhC4HS6MSQ8wcvSyQV8Y ElTiDf0sZe1AYzVgF5YpV2SkDYVuTUZEXIwrWW7WRXnqKP6bOX9Kh4BPxOUosZ3ref2TXVShAROsOyit vc7YTekkA5O3lHmwYIMpGRFzFURQMYigFQ0PGRRoNN Q2LZP0WWBrFVJJYyAaA76tNX0KM8Vzf33sRvC9CBHrNzCjSPhxYL96gCaqubLxmJTrbSifWS6CIo6+DQ ycieJuDvaRPvnlBIIIRjGmWLHNBxGqTVEnPSZrCDSzTuE2JjXlDn6LJXBjGFRfEKBdHlNsGLToSOOuVB kuTBOwYPE9JFv6DYScSYJgOG2HYvDsKERdSLYoPjuy JBBfIZSrjf2NBVBuTHTdCUC9FjPwVCEwWJTgQRpjOGDqOSD9THLmBOPhJBAwCI1TLgUkREMqQDQ3Djtr XNLuZMClbu6DXYCdNSCgTBIvVeWfMDOsTBSkCUxaHTQbTVN3MALaROLbLLOmYA9XSiJvZXCfRTOeFXYh YFPzLFPekg0TWUKfOKOeYsK3IjDrYLNjXBNfDNeyZL TjDOV1IyOuCUArJPIqFA4RZpPzQRYxDED4BYxnEEHgSYGrob7YXADcKSFxIGI0MuDgHCNbVVBiSOgnXO WoYJO8YNOlWPKjYATeGJ5BIqLvODWgJwL9XxAoVYGoMNZpfx2RYULgNTXxJaW5EYNdLPIyNQKdLRpmDV MiKFC3DXl1XLDcMEBpVF3MGpUrRFQgKuodISWyUNGs WQHhwn3YZBOxJVMjLSa7JGRmQFXrZFIiSBdlWEOaAOP0ZPW8SVRtHKLuSZ9LJtOmYPUqEmPiAmUwDJEd DIByks6QLOQrPHMvRFLbPbCcBLUaFAMgIZviNDXmHRLjQYB4DPSbANGvQJ9FLeCdVITbLlVpWyMiTIHt JDVqzu1EKXMqRNXkUSA4JqPpDPYpUWJgNZczCFYpST DmPiD2SJUlYCVvRK2VXfEgKNVdOzM0LPQvXYZpALGmsn6PPNXePNQhTvybPbTxUSYoNZBkUPskGVNoPL JvZCi8CPSlMULoAK6ITdTrOBSsTlHnLSNoMWIkDAEmls6HOFVmCSUtVEB5DKSiTQLlMTGoSIilKFXeQJ R1DLA7PCReWHGrMZ8CEsVpDDEmUEP4TtOxVKAdCAZg nr3LBHXaMBN7EwW7DwSaVFXdPNVsKWsfAQIdALF7VpDgDZToQCJyEG2XHvYwWAYxQYZ2UKZdGHDvMAXh bz5YVMEzQZF2Ehn3WwCrKIIlCXKvJPjfZHIuWDF0Lve2MICzGFOhKP7LZyKgXQZqMWk2JBTqMJUnUBBz dh9NGQHdNUY8NTH4YGJaGWGqHNAvQBwnFTNtILZyVP CqLGQrSKQfMC8UFyPgORVgQWWlCKZcZFObDZPkbi7XKZVkQRV8YnN6MSPdTWLdOKBtHTzyPZBgATOaSd X6VTAuXLOrSX8KNiKbAVOkLKA0CIpqNHSsZJSmrz1KNJUqZKR6OGC7BKTcCUJeVQAyPSywUJTjZEG4Cm F9PVUrGICwRS7NWbOdBSAnQZB1XADkIGNnAAUejy6V ZTJiOBT0NZbdHaPhVYCgOIVrJCpbIMBeVFK8CQNySGVlRHZrSD1CVsFfFCApYHM3YRDhVDSvURIugr5R IFLzRZU0HfGdYgYhFKSeOGMtENu3ixUphTDfVQq2YN4TD1KxifWmZRUXWd6Lq029HPFaGRTcMv0DP6bf Mf4nTCDwURFDIx0OMAa1RqI1JPF6BNWsOBs4IxY5Sx v1Twh6WSX1NNIkPVPiKKG+XAvmNuYkGuW4PbJ5IKZmENlkEUTuACQcLJL8CGR0TUQrSi7gLLXYMh0+DQ pyoVKeuT[id number] ID Date Data Source [id number] 12/06/2020 12:02:06 PM EDT [facility] Service Cmnt XXX-Imp : NoneMicroorganism XXX Cult : Greater than 100,000 col/mlIndigenous microorganisms. Name Value Range Interpretation Code Description Data Catrachita rce(s) Supporting Document(s) ID Date Data Source [id number] 12/04/2020 08:44:42 PM EDT [facility] Name Value Range Interpretation Code Description Data Catrachita rce(s) Supporting Document(s) Color of Urine [facility] Clarity of Urine [facility] Specific gravity of Urine by Refractometry automated 1.024 1.003 -1.030 [facility] pH of Urine by Automated test strip 5.0 5.0-8.0 [facility] Protein [Mass/volume] in Urine by Automated test strip Neg [facility] Glucose [Mass/volume] in Urine by Automated test strip Neg [facility] Ketones [Mass/volume] in Urine by Automated test strip Neg [facility] Bilirubin.total [Presence] in Urine by Automated test strip Negative [facility] Hemoglobin [Presence] in Urine by Automated test strip Neg [facility] Leukocyte esterase [Presence] in Urine by Automated test strip Negative [facility] Nitrite [Presence] in Urine by Automated test strip Negati [facility] Leukocytes [#/area] in Urine sediment by Automated count 6 /HPF 0 -5 H [facility] Erythrocytes [#/area] in Urine sediment by Automated count 4 /HPF 0-3 H [facility] Epithelial cells.squamous [#/area] in Urine sediment by Auto mated count 12 /HPF None [facility] Mucus [#/area] in Urine sediment by Microscopy low power field None [facility] Calcium oxalate crystals [#/area] in Uri ne sediment by Microscopy high power field None [facility] ID Date Data Source 12/04/2020 09:31:24 PM EDT [facility] Name Value Range Interpretation Code Description Data Catrachita rce(s) Supporting Document(s) Amphetamine [Presence] in Urine by Screen method Negative [facility] Benzodiazepines [Presence] in Urine by Screen method [facility] (NOTE)Positive results are presumptive a nd unconfirmed;confirmatorytesting can be ordered at [facility] at [phone] [facility] at [phone] within 5 days of collection. Cannabinoids [Presence] in Urine by Screen method Negative [facility] Benzoylecgonine [Presence] in Urine by Screen method [facility] Methadone [Presence] in Urine by Screen method [facility] Opiates [Presence] in Urine by Screen method [facility] Oxycodone [Presence] in Urine by Screen method [facility] Fentanyl+Norfentanyl [Presence] in Urine by Screen method [facility] Service [facility] Results below the indicated cutoff (ng/m L), are reported as"Negative." Note: for medical purposes only; not valid for legalor employment testing. ID Date Data Source 12/04/2020 07:11:00 PM EDT [facility] Name Value Range Interpretation Code Description Data Catrachita rce(s) Supporting Document(s) SARS-CoV-2 RNA 2019 nCoV Real-Time RT-PCR: NOT DETECTED [facility] This lab was ordered by [facility] and reported by [facility]. ID Date Data Source 12/04/2020 09:21:46 PM EDT [facility] Service Cmnt XXX-Imp : NoneRespiratory P CR Panel : PCR ResultsMicroorganism XXX Cult : See Labs Tab for 2019 nCoV RT-PCR resultsHAdV DNA QI MACKENZIE+non-probe : Not DetectedHCoV [id number] Nph QI MACKENZIE+non-probe : Not DetectedHCoV [id number] Nph QI MACKENZIE+non-probe : Not [id number] RNA Nph QI MACKENZIE+non-probe : Not [id number] RNA Upper resp QI MACKENZIE+probe : Not [...] DNA Nph Q MACKENZIE+non-probe : Not DetectedB [id number] DNA Nph MACKENZIE+non-probe : Not Detected Name Value Range Interpretation Code Description Data Catrachita rce(s) Supporting Document(s) ID Date Data Source 12/04/2020 09:20:30 PM EDT [facility] Name Value Range Interpretation Code Description Data Catrachita rce(s) Supporting Document(s) Specimen source [Identifier] of Unspecified specimen [facility] PRIORITY SARS-CoV-2 RNA 2019 nCoV Real-Time RT-PCR: NOT DETECTED [facility] Assay Performed [facility] Patients first test for [facility] 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 [facility] Patient has symptoms related to [facility] When did you start to experience these symptoms [Date and time] [Phen X] [facility] Patient was hospitalized because of this condition [facility] patient was admitted to ICU for [facility] Patient resides in a congregate care setting [facility] status [facility] ID Date Data Source 12/04/2020 07:47:40 PM EDT [facility] Name Value Range Interpretation Code Description Data Catrachita rce(s) Supporting Document(s) Leukocytes [#/volume] in Blood by Automated count 9.9 10*3/uL 4-10 [facility] Erythrocytes [#/volume] in Blood by Automated count 4.27 10*6/uL 4.1- 5.3 [facility] Hemoglobin [Mass/volume] in Blood 12.5 g/dL 11.5-15.5 [facility] Hematocrit [Volume Fraction] of Blood by Automated count 38.8 % 3 6-45 [facility] Erythrocyte mean corpuscular volume [Entitic volume] by Auto mated count 90.7 fL 80-96 [facility] Erythrocyte mean corpuscular hemoglobin [Entitic mass] by Automated count 29.3 pg 27-33 [facility] Erythrocyte mean corpuscular hemoglobin concentration [Mass/volume] by Automated count 32.3 g/dL 32.0-[facility].0 [facility] distribution width [Ratio] by Automated count 14.7 % 11.5-14.5 H [facility] Platelets [#/volume] in Blood by Automated count 264 10*3/uL 150-400 [facility] Differential cell count method - Blood [facility] Neutrophils/100 leukocytes in Blood by Automated count 66 % [facility] Lymphocytes/100 leukocytes in Blood by Automated count 23 % [facility] Monocytes/100 leukocytes in Blood by Automated count 9 % [facility] Eosinophils/100 leukocytes in Blood by Automated count 1 % [facility] Basophils/100 leukocytes in Blood by Automated count 1 % [facility] Neutrophils [#/volume] in Blood by Automated count 6.58 10*3/uL 1.8-7 .0 [facility] Lymphocytes [#/volume] in Blood by Automated count 2.24 10*3/uL 1.2-4 .0 [facility] Monocytes [#/volume] in Blood by Automated count 0.91 10*3/uL 0-0.8 H [facility] Eosinophils [#/volume] in Blood by Automated count 0.14 10*3/uL 0-0.5 [facility] Basophils [#/volume] in Blood by Automated count 0.07 10*3/uL 0-0.2 [facility] Nucleated erythrocytes/100 leukocytes [Ratio] in Blood by Automated count 0 /100{WBCs} 0-0 [facility] ID Date Data Source 12/04/2020 08:22:08 PM [facility] Value Range Interpretation Code Description Data Catrachita rce(s) Supporting Document(s) Acetaminophen [Mass/volume] in Serum or Plasma 10.0-30.0 L [facility] ID Date Data Source 12/04/2020 08:22:08 PM EDT [facility] Name Value Range Interpretation Code Description Data Catrachita rce(s) Supporting Document(s) Albumin [Mass/volume] in Serum or Plasma by Bromocresol green (BCG) dye binding method 4.0 g/dL 3.5-5.2 [facility] Bilirubin.total [Mass/volume] in Serum or Plasma 0.3 mg/dL <1.2 [facility] Bilirubin.direct [Mass/volume] in Serum or Plasma <0.3 [facility] Alkaline phosphatase [Enzymatic activity/volume] in Serum or Plasma 117 U/L 35-104 H [facility] Aspartate aminotransferase [Enzymatic activity/volume] in Serum or Plasma 19 U/L <32 [facility] Alanine aminotransferase [Enzymatic activity/volume] in Seru m or Plasma 16 U/L <33 [facility] Protein [Mass/volume] in Serum or Plasma 6.7 g/dL 6.4-8.3 [facility] ID Date Data Source 12/04/2020 08:22:08 PM EDT [facility] Value Range Interpretation Code Description Data Catrachita rce(s) Supporting Document(s) Ethanol [Mass/volume] in Serum or Plasma Negative [facility] ID Date Data Source 12/04/2020 08:22:08 PM EDT [facility] Value Range Interpretation Code Description Data Catrachita rce(s) Supporting Document(s) Bicarbonate [Moles/volume] in Serum 22 mmol/L 22-29 [facility] Chloride [Moles/volume] in Serum or Plasma 104 mmol/L 98-107 [facility] Creatinine [Mass/volume] in Serum or Plasma 0.84 mg/dL 0.50-0.90 [facility] Glucose [Mass/volume] in Serum or Plasma 84 mg/dL 70-140 [facility] Potassium [Moles/volume] in Serum or Plasma 3.6 mmol/L 3.4-5.1 [facility] Sodium [Moles/volume] in Serum or Plasma 139 mmol/L 136-145 [facility] Urea nitrogen [Mass/volume] in Serum or Plasma 15 mg/dL 6-20 [facility] Anion gap 3 in Serum or Plasma 13 mmol/L 8-15 [facility] Osmolality of Serum or Plasma by calculation 288 mosm/kg 275-300 [facility] Creatinine/Urea nitrogen [Mass Ratio] in Serum or Plasma 18 [facility] Calcium [Mass/volume] in Serum or Plasma 8.5 mg/dL 8.6-10.0 L [facility] Glomerular filtration rate/1.73 sq M pre dicted among non-blacks [Volume Rate/Area] in Serum or Plasma by Creatinine-based formula (MDRD) 89 mL/min/1.73m2 >60 [facility] Glomerular filtration rate/1.73 sq M pre dicted among blacks [Volume Rate/Area] in Serum or Plasma by Creatinine-based formula (MDRD) >60 [facility] ID Date Data Source 12/04/2020 08:22:08 PM EDT [facility] Name Value Range Interpretation Code Description Data Catrachita rce(s) Supporting Document(s) Salicylates [Mass/volume] in Serum or Plasma 3.0-30.0 L [facility] ID Date Data Source 12/04/2020 08:22:08 PM EDT [facility] Value Range Interpretation Code Description Data Catrachita rce(s) Supporting Document(s) Thyroxine (T4) free [Mass/volume] in Serum or Plasma 0.95 ng/dL 0.93- 1.70 [facility] ID Date Data Source 12/04/2020 08:22:08 PM EDT [facility] Value Range Interpretation Code Description Data Catrachita rce(s) Supporting Document(s) Thyrotropin [Units/volume] in Serum or Plasma 5.880 u[IU]/mL 0.270-4. 200 H [facility] ID Date Data Source [id number] 11/20/2020 08:09:00 PM EDT [facility] Name Value Range Interpretation Code Description Data Catrachita rce(s) Supporting Document(s) SARS coronavirus 2 RNA [Presence] in Res piratory specimen by MACKENZIE with probe detection NEGATIVE [facility] This lab was ordered by [facility] a nd reported by [facility]. ID Date Data Source [id number] 11/20/2020 05:08:56 PM EDT [facility] PATIENT INFORMATIONPatient MRN Name Date of [id number] Shabnam Aaron 1985 35 y.o. Weight Gender PT Class 96.2 kg F Psych InptPT Location Admission Date/Time Visit ID Attending [id number] 11/18/20 1314 --- --- EPI ID CSN Admitting Provider [id number] Duran Nielson MD([id number])PSYCHIATRIC IP DISCHARGE SUMMARYPatient: Shabnam AaronMRN: [id number]: femaleAge: 35 y.o.: 1985Admission Date: 11/18/2020ischarge Date: 1Reason for Admission/History of Present Illness:FROM CPEP NOTE:Patient is a 35 year old female with previous reported diagnoses of Anxiety,Depression, Intellectual Disability, who presented to [facility] ED via EMS transfer from [facility] on a 9.37 status forsuicidal ideation. [...] COLLATERAL REPORTS(from CPEP NOTE):Nadja Hancock, patient's mother [phone] reports that there is a lot going on ( has cancer, she has skincancer) and Nadja is unable to accompany her [facility] Nadja reports that Shabnam is intellectually disabled [...] that the patient is getting dementia - sherseaneats herself - will call repeatedly and seemingly [...] or [place] [facility] [place] [facility] "she lit up like [place]" Ndaja questions if the patient does see a [...] liquids okay" (Progress Notes by Marley Ladd [facility],dated 11/19/2020 at 12:23pm). A diet order was [...] hygieneBehavior: cooperativeEye Contact: goodGait: within normal limitsOrientation: n6Tkmbkv: Clear. Normal rate, rhythm, and volume.Mood: "Good."Affect: [...] kg (212 lb)SpO2 93%BMI 35.28 kg/m2BSA 2.1 n5Ndfhntjci Medication List as of 11/20/2020 1:41 PMSTART [...] you need to do Thursday Go to [facility] 10:00am Where: [facility] [place], [place] [address]G. [phone]. [phone] Disposition: Discharged on 11/20/2020 and transported home via taxi.Her mother, Nadja Hancock (telephone # [phone]), approved of the patientbeing transported home via taxi. Nadja Hancock could not cherry picker operator the patientherself because she said "I'm recovering from surgery."Was patient discharged on two or more antipsychotics?Xiomy Jordan MD11/20/2020 Name Value Range Interpretation Code Description Data Catrachita rce(s) Supporting Document(s) ID Date Data Source [id number] 11/20/2020 09:09:00 AM [facility]T [facility] Name Value Range Interpretation Code Description Data Catrachita rce(s) Supporting Document(s) SARS coronavirus 2 RNA [Presence] in Uns pecified specimen by MACKENZIE with probe detection Not detected [facility] This lab was ordered by [facility] and reported by [facility]. ID Date Data Source [id number] 11/20/2020 10:26:00 AM EDT [facility] Source->NasopharyngealIs this test for d iagnosis or screening?->ScreeningRelease to patient->ImmediateReason for COVID-19 test->Routine testing of asymptomatichospitalized patientsUnit Collect Name Value Range Interpretation Code Description Data Catrachita rce(s) Supporting Document(s) SOURCE Nasopharyngeal [facility] SARS-CoV-2 BY RT-PCR Not detected Normal (applies to non-n umeric results) [facility] NEGATIVE RESULTA negative ("Not detected ") result does not hxcalizwKWMP-SrH-7 infection, and a negative result should not [...] or call 911. For additional information please [email or web address] es: Coronavirus in [facility]www.[email or web address] hospitalGet the latest reopening updates, travel guidelines, and learn howmercy san juan medical centeres and schools are impacted.[email or web address].gov/homeTesting was performed on the hemalatha? Kell? System using hemalatha?SARS-CoV-2 & Influenza A/B reagent. This is a nepf-peddBT-WFW assay which qualitatively detects nucleic acid fromsevere acute respiratory syndrome coronavirus 2 (SARS-CoV-2)in suitable respiratory specimens such as nasopharyngeal swabs.This assay has been approved for use under an Emergency UseAuthorization (EUA) by the Food and Drug Administration (FDA). ID Date Data Source [id number] 11/19/2020 03:49:00 PM EDT [facility] Release to patient->ImmediateUnit Collec t Name Value Range Interpretation Code Description Data Catrachita rce(s) Supporting Document(s) T PALLIDUM AB NONREACTIVE Normal (applies to non-numeric r esults) [facility] T.pallidum Antibody Index: less than 0.9 0A [...] TPal Ab Index ID Date Data Source [id number] 11/19/2020 02:54:00 PM EDT [facility] Release to patient->ImmediateUnit [facility] t Name Value Range Interpretation Code Description Data Catrachita rce(s) Supporting Document(s) VITAMIN D,25-HYDROXY >= 20 Normal (applies to non-num denzel results) [facility] ID Date Data Source [id number] 11/19/2020 02:40:00 PM EDT [facility] Release to patient->ImmediateUnit [facility] t Name Value Range Interpretation Code Description Data Catrachita rce(s) Supporting Document(s) eAVERAGE GLUCOSE 68-126 Normal (applies to non-numeric results) [facility] HEMOGLOBIN A1C 4.2-5.6 Normal (applies to non-numeric r esults) [facility] Per ADA 2018 Guidelines, HbA1c values sh ould be interpreted as follows: Normal: less than 5.7% Prediabetes: 5.7% - 6.4% Diabetes: greater than 6.4%Samples containing >7% HbF may yield lower than expected HbA1c results.Additional testing not affected by HbF can be requested if clinicallyindicated. Contact [phone] for more information. ID Date Data Source [id number] 11/19/2020 08:07:00 AM EDT [facility] Release to patient->ImmediateUnit [facility] t Name Value Range Interpretation Code Description Data Catrachita rce(s) Supporting Document(s) GFR BLACK 64-149 Below low normal [facility] For both GFR and GFR BLACK, th e accuracy of the GFRcalculation is contingent on a stable level of serumcreatinine. The GFR calculation is normalized to 1.73 "meterssquared" body surface area. A GFR less than 60 may alterclinical management decisions. A GFR within the age-adjustedreference range does not exclude kidney disease. ID Date Data Source [id number] 11/19/2020 08:07:00 AM EDT [facility] Release to patient->ImmediateUnit [facility] t Name Value Range Interpretation Code Description Data Catrachita rce(s) Supporting Document(s) GFR 64-149 Below low normal [facility] ID Date Data Source [id number] 11/19/2020 08:07:00 AM EDT [facility] Release to patient->ImmediateUnit [facility] t Name Value Range Interpretation Code Description Data Catrachita rce(s) Supporting Document(s) CHOLESTEROL 50-180 Normal (applies to non-numeric resu lts) [facility] TRIGLYCERIDES 30-150 Normal (applies to non-numeric re sults) [facility] HDL CHOLESTEROL 40-60 Normal (applies to non-numeric results) [facility] HDL levels are inversely related to the incidence of coronaryheart disease (CHD).HDL less than 40 mg/dL.........Increased risk for CHDHDL greater than 59 mg/dL.......Negative risk for CHD non-HDL-C 95-160 Normal (applies to non-numeric resul ts) [facility] CHOL/HDL RATIO [facility] CHD CHOL/HDL RATIORisk Group Men Women Lowest <3.8 <2.9Low 3.8-4.7 2.9-3.6Moderate 4.8- 5.9 3.7-4.6High >5.9 >4.6 LDL (calc) 30-100 Normal (applies to non-numeric resul ts) [facility] ID Date Data Source [id number] 11/19/2020 08:07:00 AM EDT [facility] Release to patient->ImmediateUnit [facility] Name Value Range Interpretation Code Description Data Catrachita rce(s) Supporting Document(s) SODIUM 136-145 Normal (applies to non-numeric resul ts) [facility] POTASSIUM 3.5-5.2 Normal (applies to non-numeric resul ts) [facility] CHLORIDE 100-110 Normal (applies to non-numeric resul ts) [facility] CO2 22-31 Normal (applies to non-numeric results) [facility] ANION GAP 3-18 Normal (applies to non-numeric resul ts) [facility] BUN 7-21 Above high normal [facility] CREATININE 0.8-1.3 Normal (applies to non-numeric resul ts) [facility] GLUCOSE 60-100 Normal (applies to non-numeric resul ts) [facility] CALCIUM 8.4-10.0 Normal (applies to non-numeric resul ts) [facility] TOTAL PROTEIN 6.4-8.2 Below low normal [facility] ALBUMIN 3.5-5.0 Normal (applies to non-numeric resul ts) [facility] GLOBULIN 2.6-3.2 Normal (applies to non-numeric resul ts) [facility] A/G RATIO 1.1-1.8 Normal (applies to non-numeric resul ts) [facility] BILI, TOTAL 0.1-1.1 Normal (applies to non-numeric resu lts) [facility] AST 15-[address] [facility] ALT 15-60 Below low normal [facility] ALK PHOS 39-117 Normal (applies to non-numeric resul ts) [facility] ID Date Data Source [id number] 11/19/2020 08:07:00 AM EDT [facility] Release to patient->ImmediateUnit Colle t Name Value Range Interpretation Code Description Data Catrachita rce(s) Supporting Document(s) VIT B12 211-911 Normal (applies to non-numeric resul ts) [facility] ID Date Data Source [id number] 11/19/2020 07:18:00 AM EDT [facility] Release to patient->ImmediateUnit Collec t Name Value Range Interpretation Code Description Data Catrachita rce(s) Supporting Document(s) WBC 4.8-10.4 Normal (applies to non-numeric resul ts) [facility] RBC 4.04-5.48 Normal (applies to non-numeric resul ts) [facility] HGB 11.9-15.9 Normal (applies to non-numeric resul ts) [facility] HCT 38-48 Normal (applies to non-numeric results) [facility] MCV 80-97 Normal (applies to non-numeric results) [facility] MCH 26.6-30.6 Normal (applies to non-numeric resul ts) [facility] MCHC 31.1-34.5 Normal (applies to non-numeric resul ts) [facility] RDW 12.9-16.3 Normal (applies to non-numeric resul ts) [facility] PLATELET COUNT 142-414 Normal (applies to non-numeric r esults) [facility] MPV 9.0-12.2 Normal (applies to non-numeric resul ts) [facility] ID Date Data Source [id number] 11/19/2020 07:36:00 AM EDT [facility] Release to patient->ImmediateUnit Colle t Name Value Range Interpretation Code Description Data Catrachita rce(s) Supporting Document(s) TEST, UR NEG [NEGATIVE] Normal (applies to non-numer ic results) [facility] ID Date Data Source [id number] 11/18/2020 11:00:55 PM EDT [facility] PATIENT INFORMATIONPatient MRN Name Date of [id number] Shabnam Aaron 1985 35 y.o. Weight Gender PT Class 96.2 kg F Psych InptPT Location Admission Date/Time Visit ID Attending [id number] 11/18/20 1314 --- --- EPI ID CSN Admitting Provider [id number] Duran Nielson MD([id number])Date: 11/18/2020Name: Shabnam AaronMRN: [id number]: 1985Admit Date: 11/18/2020ttending Provider: No att. providers foundPrimary Care Physician: No primary care provider on file.Admitting Diagnosis: Psychosis, unspecified psychosis type (CMS HCC Code) [F29]Chief Complaint:Chief ComplaintPatient presents with Psychiatric EvaluationConsent Obtained prior to completing this visitBy proceeding with this visit, you are providing consent for a [facility] provider to treat (the patient) via a telemedicine visit. By providingyour consent, you acknowledge:1. You will communicate to the [facility] provider using an interactiveIntegrys AssetPointdeo link or through telephonic communication. You have the right todiscontinue this telemedicine visit at any time.2. You will be informed about the [facility] provider conducting thevisit and any other personnel [...] provider's location.5. Medical information shared with the [facility] provider during thisvisit will be documented and safeguarded just as it would during an in-personvisit.6. All questions you have regarding [facility] staff or the telemedicinetechnology will be answered.This [...] Social Gatherings with Friends and Family: Attends Hindu Services: Active Member of Clubs or Organizations: [...] rce(s) Supporting Document(s) ID Date Data Source [id number] 11/18/2020 03:57:56 PM EDT [facility] PATIENT INFORMATIONPatient MRN Name Date of [id number] Shabnam Aaron 1985 35 y.o. Weight Gender PT Class 96.2 kg F Psych InptPT Location Admission Date/Time Visit ID Attending [id number] 11/18/20 1314 --- --- EPI ID CSN Admitting Provider [id number] Duran Nielson MD([id number])[facility] EM[facility]ENCY DEPTHistoryNo chief complaint on file.Patient is a 35-year-old female with H schizoaffective disorder who [facility] auditory hallucination andsuicidal thoughts. Patient states that she hears the voice of the devil tellingher to slit her wrists, murder her family, and injure others. She is uncertainwhether or not she has missed doses of her medications.History provided by: Patient and medical recordsLanguage drop wire stringer used: NoMental Health ProblemPresenting symptoms: hallucinations, suicidal [...] rce(s) Supporting Document(s) ID Date Data Source [id number] 11/18/2020 02:42:17 PM EDT [facility] PATIENT INFORMATIONPatient MRN Name Date of [id number] Shabnam Aaron 1985 35 y.o. Weight Gender PT Class 79.4 kg F Psych InptPT Location Admission Date/Time Visit ID Attending [id number] 11/18/20 1314 --- --- EPI ID CSN Admitting Provider [id number] Duran Nielson MD([id number])Psychiatrist Note - Comprehensive Psychiatric Emergency ProgramDate: 11/18/20 at 2:06 PMConsultant requested By: Dr Aliceaase also see complete CPEP evaluation completed by clinical dial maker foradditional information regarding history and presentation.History of Present IllnessLindssamy Aaron is 35 y.o. female to the emergency department at [facility] in [facility] where she is apparently quite well known. [...] outpatient psychiatrist for tomorrow. She now [facility] reporting seeing the devil and hearing his voice saying to killherself and kill others. She was subsequently transferred to this facility forfurther evaluation and treatment due to a lack of beds locally. On my examtoday, she was seen lying in the bed in the psychiatric emergency room. Shewasfully alert, lying in bed facing the personal lines underwriter with generally clear but rathervague speech. Based [...] appears psychomotorretarded, profoundly depressed and withdrawn. When personal lines underwriter told her that shewould be admitted to [...] VisualHarmSuicide: Thoughts/ideationHarm to others: Thoughts/ideationInsightInsight: PoorJudgementJudgement: PoorPsych MD/CHARTER BUS DRIVER Continued AssessmentMuscle Strength / Tone: Within Defined [...] a more supervised setting such as a [facility]term [facility] and according to mother, [facility] [...] to provide information about when she startedthis medication.Senior Medical Director: Duran Nielson MD at 2:06 PM Name Value Range Interpretation Code Description Data Catrachtia rce(s) Supporting Document(s) ID Date Data Source [id number] 11/16/2020 11:12:00 PM EDT [facility] Name Value Range Interpretation Code Description Data Catrachita rce(s) Supporting Document(s) SARS coronavirus 2 RNA [Presence] in Res piratory specimen by MACKENZIE with probe detection NEGATIVE [facility] This lab was ordered by [facility] a nd reported by [facility]. ID Date Data Source [id number] 11/08/2020 03:02:00 PM EDT [facility] Name Value Range Interpretation Code Description Data Catrachita rce(s) Supporting Document(s) SARS coronavirus 2 RNA [Presence] in Res piratory specimen by MACKENZIE with probe detection NEGATIVE [facility] This lab was ordered by [facility] a nd reported by [facility]. ID Date Data Source [id number] 11/02/2020 11:06:19 AM EDT [facility] Name Value Range Interpretation Code Description Data Catrachita rce(s) Supporting Document(s) Discharge Summary [facility] DKANPu9uHiRBMhKv64/JKOzdVZKve2WaBWiaYGm2CEhrQAXgW5FiVDX7eK2uXFN0QRsECvMfLkRjWcDz m [file] ICAgICAgICAgICAgICAgICAgICAgICAgICAgICAgICAgICAgICAgICAgICAgICAgICAgICAgICAgICAg ICAgICAgICAgICAgICAgDQogICAgICAgICAgICAgIC AgICAgICAgICAgICAgICAgICAgICAgICAgICAgICAgICAgICAgICAgICAgICAgICAgICAgICAgICAgIC AgICAgICAgICAgICAgICAgICAgICAgICAgDQogICAgICAgICAgICAgICAgICAgICAgICAgICAgICAgIC AgICAgICAgICAgICAgICAgICAgICAgICAgICAgICAg ICAgICAgICAgICAgICAgICAgICAgICAgICAgICAgICAgICAgDQogICAgICAgICAgICAgICAgICAgICAg ICAgICAgICAgICAgICAgICAgICAgICAgICAgICAgICAgICAgICAgICAgICAgICAgICAgICAgICAgICAg ICAgICAgICAgICAgICAgICAgDQogICAgICAgICAgIC AgICAgICAgICAgICAgICAgICAgICAgICAgICAgICAgICAgICAgICAgICAgICAgICAgICAgICAgICAgIC AgICAgICAgICAgICAgICAgICAgICAgICAgICAgDQogICAgICAgICAgICAgICAgICAgICAgICAgICAgIC AgICAgICAgICAgICAgICAgICAgICAgICAgICAgICAg ICAgICAgICAgICAgICAgICAgICAgICAgICAgICAgICAgICAgICAgDQogICAgICAgICAgICAgICAgICAg ICAgICAgICAgICAgICAgICAgICAgICAgICAgICAgICAgICAgICAgICAgICAgICAgICAgICAgICAgICAg ICAgICAgICAgICAgICAgICAgICAgDQogICAgICAgIC AgICAgICAgICAgICAgICAgICAgICAgICAgICAgICAgICAgICAgICAgICAgICAgICAgICAgICAgICAgIC AgICAgICAgICAgICAgICAgICAgICAgICAgICAgICAgDQogICAgICAgICAgICAgICAgICAgICAgICAgIC AgICAgICAgICAgICAgICAgICAgICAgICAgICAgICAg ICAgICAgICAgICAgICAgICAgICAgICAgICAgICAgICAgICAgICAgICAgDQogICAgICAgICAgICAgICAg ICAgICAgICAgICAgICAgICAgICAgICAgICAgICAgICAgICAgICAgICAgICAgICAgICAgICAgICAgICAg SZYhXXRvONAlITLjVHWbHNPaSYBnWPNcUIg1H7gaVI KaSCRjLU9qVBh4Zi8+FGaWGqRzGKK7uoDpfP9YTP2ih7ZgXCyaQPHkh8DkHGc2GH0RERTeNQmkQD0QGV tlcs4YYEOfZKHboLRQf9brIdKiSSG8LDKkElxwLW6GANUxO8qrjxHqXMCeWRKDAEsyROHSXJkfABOPFM WnBOZiImPnZiKfHXNtTOArFCPXVSY0DFZuLqZaPQBa LPOmIO7JOWUsR977tuHjJQ1LDr3FDdIhWE4uwr3NPCEcLWUsFilDPdb2IDtvJM9NoOKpbQX8SAFaBPTO KgAtY1lei6XsFLOkINJHAIrgFX4Yn2UioHLmSZr+Gz6ZNN1nt3YoXCt0FELeUW2drg6KOWoPOvGsB4Mm mZlsDYUsa0VpYZNkMOMFvJ4eMWY7ZCD7PPe9JnJmAG HjvbFpCWPcMAVyFK9YUND7CEYkEKTvRnRmFMHhAHglQNSWULeUWoPhR9Vbj9OnFqU4HCDjXnSbYKumVO CnYgM8WW97zSfnQX7MTWBaUHJvLJ14QOK7RQHzHk2LIo1XPmUdWT4pao5AHZZwHHZfKkgWQqj3CEixCW 7CtHKtR6CdfXNuw3nQXrRtZ8GTJBLaIESkJh7GPNXs QhUyOZYmPDqvTJ6tJXExDPTFvIhqvzG3SN3SFA0dxrRgTG0MKwQnTt7yBw0ENlOfF7DiI4IfJSCdCPSG SSntMS7WCDtvVK7nYI7Xz4SBpVZgfJ4ncj0DQEAcGPBzAikqup8WQvzkL5F9nLfcXTJxLJNgXOEEHIyu BS1EPKFyAHS7VLY6HoPpBVUEJdMbQ97sZY0DR7Pma0 0oFxO1KYKmGhFpPIdsIB73aTktblDrjHTbyLbqZO8TNt2+DQplbmRvYmoNCnhyZWYNCjAgNDcNCjAwMD UiPUDnFQMjNsN7WsAhWq6PJFAiYDYuOTXaBqKaSLSmJNYnLNsoWLLpGGNwNRQtCTXbJULhSG4GNkAsEK NbQKC6XzmlLPNmKWDbhu6TOVTjDJPhMLR6LePxRNDw OZWwCCkhSOSpXMT2ZPE6CGVlZUSxST5NDiSoEDDiEFJ8RIMkWFZhOAMtxs4UWVWkCFWvWMF5EmWzYMXc MQRsGWgrMQXxOCO3DnmkLROjCBMmVN0NOgZuKBPwGEX7CPypLLDoYCCynm7XEYTyDRHmTVj1VjEpWCVl FXKgVNagJQCmCAL6RfJhXPCuRYTmIT5FAgNvOTCsEZ O2AZtcJTYmSXLzoj8IFOYePBEtUDLxByEdEUPsQSQvQYrqQVGjKHE5RqS5ZNBkHHKsAE5QSmEzJQOxJz T8IQDxVEPyAEUrmw2MMWCuTNRqQsE1YXMjFLRgQZOqSNghAHRfQMJ5QAA4LFBaQOUuXZ1JJfDcRZRfRd K4FkKjYJIwYKMrqc4CFPVuGVKoVLToSCQqSNLiJPYj KGhkARXdRNP1IGT6AEFcPOGuAI0NLwRtLFTeUcU2KwvkCJGbHQYzin1KQDXrSYJvLYZ1DONeCDIrCNCu QKjlLQCpPRXuXVT9ETPaTRXwCR4NRmNjVXLcRvN6TXVsBPDoHYUzrl4HAWEtWWCoQdGlZNSeATOpZQPg ZYrmZYLrGCXmHCw4ZUFvASGzCF5VPkFgVTXxOjGxQJ KuHQYnYVEyxj1AMFSkZIRwSnD9XNXkKPXyGOYnPPtvOKLdKPMrBYRlKGClMMRxHO8JXiKsOHQdWNC9Yv ImNUBwFJMjwc3MASBsNOZ6AXU4KwWbGWNkBAGdBPbxYZTiHTT6CMZfENEnCXDiUZ9KQsIkOUZfICO7WY DoSDUtURMkdl1WKNUbQDT1AXp0YiKzJCElQFDzEFsa PVLaYHVoYkGmPYHfOEBjHA0OFuBaUKMlGWGgXnZfOMCdCEWegx6QLFSxYWS2AYPdAfIpSYPvQNCxAFer BFCzUWSoRRggUJJwHYTcMF2JToLfKHFsPIQ9CxIsXNIkCGZgcp4DJONsSLM6HcO4ZjGhYSYcHJBfFHnt HKTzIFGkGwM8AYFzLHWhMQ5UPxUoZKBzTEU8OqwmVD IgBUWvhu6CABJuFTP8WsV4AXNfLNEiTSFvZEkkLCHpOCH9PEvpWHZnOUFcOL2VCnTvONUxGGL2KYLwNW ShRNMsxy7RNANoQQH7BIJ2MWIcBQPmVWPsRCf1odEulNViZXk5WA0JV6BfztRcYZxLJv4Pt867LRZ8VR ApIi0KA0dwDk3zXMEgJDCMFz6UKVr5NJT3KyMnSCei VeZbHbtmPjE0CZL0VIC0BtYwHFLcEJU+SWgnZexhRTTdSNEeSeViJ7F6USD5GJtgUfhxHgE6ErDuNF6u XSANCj4+AGhcxMKstHgbEOZLQiM6EhYhSIshZDVXDq6U ID Date Data Source [id number] 11/01/2020 10:33:32 AM EDT [facility] Name Value Range Interpretation Code Description Data Catrachita rce(s) Supporting Document(s) History and Physical [facility] KLHTQb2xSrXZQuXs51/KBYnfCMNsl2BoNSgxBCk0IDenGSDbD6XmTYP6cP7tTNX8HPsODbZmSrCzMtSe lbm DiWptBByXgNIBjDayGGvPpZTruSvlfiIPgQI1MqBT9SFPxR18vLQPvJCGiS2JfWRS5Vpu+Be2BCYLwiU IqYN8CAyaV0R1xC9sBRt5+5i1OyCmne0NEcNp84JxfbZQND0dDikUqu1MiTFjKVORKPZjHy89sJRK/0H Z2fAgNBgxv9xxjntk6xtgQmddrK2II+l2zsTby/ANDRE [file] AgICAgICAgICAgICAgICAgICAgICAgICAgICAgICAgICAgICAgICAgICAgICAgICAgICAgICAgICAgIC PnMVSdMSJvDPDjMB4GJWNiDILoUIAvVSTmQNUtYUTt ICAgICAgICAgICAgICAgICAgICAgICAgICAgICAgICAgICAgICAgICAgICAgICAgICAgICAgICAgICAg OHOwUQNlWDZwIIEyAPMyHXWwKDQoJQ0DOMFwAKXpMKPiDPDdDMBoADXaELJeNATpFQUoMLPbUBDoVAEb ICAgICAgICAgICAgICAgICAgICAgICAgICAgICAgIC RcSFUoIMWgHKYfTMVnUYPlQTCeARNpXFViVQNhDEYzOE8EVWWtVLGtLTZcACIrPPJzLOFjQWEjQMSoMT AgICAgICAgICAgICAgICAgICAgICAgICAgICAgICAgICAgICAgICAgICAgICAgICAgICAgICAgICAgIC UsLHUwDWXbXYAhKUHaRT8HXQNkZDZbBUKkNBBqZJDa ICAgICAgICAgICAgICAgICAgICAgICAgICAgICAgICAgICAgICAgICAgICAgICAgICAgICAgICAgICAg SVHgTWVxHJVqSOOvSVAoGJCuKFCfXDMuEN7KYUQmFJJqNTEfLJZhBPAsRMSiDNCoJGVeLNJgXTKfDIDh ICAgICAgICAgICAgICAgICAgICAgICAgICAgICAgIC NhYVFfPNZnOVPmXRKrVMAkOKBkIIVxWOYoWJKlCUUsYKZmCT9HMKZrXFDpFRHaLMVkBVOvSOXjGXHeKZ AgICAgICAgICAgICAgICAgICAgICAgICAgICAgICAgICAgICAgICAgICAgICAgICAgICAgICAgICAgIC WfMJUeXMUbLZUcXXRjVPHnQY8WXPBsQRZeLXBvJUHj ICAgICAgICAgICAgICAgICAgICAgICAgICAgICAgICAgICAgICAgICAgICAgICAgICAgICAgICAgICAg CJZsSZMaVVCuKLNeMSJiCFBzGLZuIMSaYAXsZH1DDHHnZXLaUWOrZWCuWPPmWXLgQYQdAEYcQZDnIPRy ICAgICAgICAgICAgICAgICAgICAgICAgICAgICAgIC WaAMPsVQWmUSGsPWWdVMGbTQIsMRIkCEXfBSYtTEQhMVGlQNEaQS7HUEXlKYTtJFWeCVFmLRWoDOCqDD AgICAgICAgICAgICAgICAgICAgICAgICAgICAgICAgICAgICAgICAgICAgICAgICAgICAgICAgICAgIC FmRKYcBXOeNCLwMEDaYPNySPCgWB9MIR72dVYoy4W5 CTIoWG2lqen/Pm2KPHjkmbQqiNJrNZ5DZtAcAK5ehq6XEdJiOT7lxw7MNMvPIjImD3X0aHRgTURfNQSI JbMuY42eNWonFw25ZVheXXDiWuIzVLy7Dj0LXrXnI0hzDGOkCpO7UXQkRdJ1NPMmEpX3NSZyPmUdZZZp GJOqYLZmOTJKVUB1VNLyVkWyYoQiDLOwILoeHIREJW QnTWZoVzSiADlmHI7Vh6WjmTN4FFd+To5HXQ8vb6XqAXy8BxJjYZ1lsh4QGUwNSeBqU6EruoH1JXRuRB KvKr6GGYNaWSSwbAB6HxJsUZWTRcSqX0GztG41TXCSNm7+AUrzbyVsZurELoUwOPEyi4GlWMy5EO6GKW PdFLe3zLZyZFZGIZZ8PZJsdlyvgI6uaXLvAPiqLJTd dFWsdRcfLW0zOSOzLx15TsCcFbVlNRN4HVbiCX9nPJjlQQ4THOA9YUacEUSjAIGdJ5qFRwXzRFXdZnXj kLuzUN3OZcLdP5DtgsGeuKH9DiMaHEPMHf5+NVbzdtVmSfjOPdO8FQTpc9IgTEu4MF9PKUAnZLnfNP6X UJHjfG4cHWdrSP5HCjT8NUWoMPUDNjElR84giTHpFX m4V0FrTiApTARoOprvTFIuPJvgDrTbBHLtLuAlQUsjAG4+ID4+KGqoJU7DGWnaqfIxHWVbJd2TUSYaXZ JpJD5nZXVcLQSyI1U8yOqkARHNLoYgI0iqbdlqTH3kCEJeT816zTekuyLeCGDyPEFxZn3XGRNpPFN6CC LjpRPxFUIgSNEEEYyiYL6GhYCiYAJ1nJ6eYYdcGRZn MXJoG0zMMgMdhTsmSE81tHauecOetRXlPNp+Vb0UVO5wo1ZzRVg4nwZnCVaaNGS3GGmaSLRjYKSsPQNe VMF0JZO3QCIHNdBaQTGtJXLhOBfjQSZaIMWrzw4KPWNvXGI7KgFkDXGvUWSwCFHzCDotUWJcLGA0LSR9 EPGuRATxZX2HZaYdMGTkKJSeGPzoTXKuWJVcne4QFK BsFMQlEzeeGsVbOIYwKJUdTCxyLEYaMLV6WWNsPWYvAYEcUY1HBpQeSQYwNLvrEHQyDYIcTCKhqj6WSF UiWKRyTYL2XNJkQYXmZYJcBKajHULhLFPrWcYeVTQuDZMkFW8UFyQaICOsUMS4McYxDAJsNJDziu3XBD FnSHLeUYS4NNQjPECkCEXcOSpdSSHvBWA0BHc8WHRs RYQrTY7XWaLkUFTyPBf9GVPvQLNpLFEvoz3OWZWrYOYdUTz6JaGzVENtXCFeUNpeEAPaZEHeEJt7HNMn RHZnRW3FAtPaSXOxRmU9WDWmVVHbQIRpku8XZHDxLGFtWPMjLVOpIBUdLMBfGXhpEGKkBTE3GDOpSLSv LRNnAZ8JXwWkVEQpDuslObFhJJKhLZXtwr6THRYxTE DvZXP9TlCrILOqOXKhKAjqLXRhQHSvPsJ2EEJsHQMvTV7EUeGoVFUfOeY0STJsCQAyNBCkmq8NBTUdVL UbVfxmHELoPZEgRNBwPWfvXHXfQJViLGI4PTPhGMTbME0TEnFmOHOrBxXgWULxCQLjGGMrxv1FIBYjFH SwCAQ7WNPsEDWeCMBnNUepYKOfYOJ3GFBsWBOwMJJu VG6NFiFsQDQsQyK8FJQmLFKgQAYsoi0PJCBdSBKpWENgVRWkZLLsYSEmXNlhZQNlBJY3Oil7LZDySQDi RE7JWcIbLJPoGgQ4FPJhTTMxWEFlix7CHOZxEIM5QxM4JYCiZKVkLQAjZRekZQJdRKM6RusqOXGqZNBj EY4YRpMxZNArTKt0TOMpARCfZLPqew6HFQBtXLE1HP WlDRJbFRTyYEQzDQpzQJArTWO9Osq4EJRzFVAtPP3PZcAtHQToZYgcBdRkBRIsDMGtsz5QNVOgVHW2YJ IgBKYxGYCaRQNvYCkcHDWjQDR4MXo6UITbFEJtVX4HHkNwDKXsJRO4CQMaFUNgYIOeyn8WGPTqSUE0KA o7ZXTyKZFhIPQyDQdrBCEbTRS5LZqnASHoBCFrWS5G BgNiASSgWNDuIwspXPEuNQRkuv9MZUPpYMV2EVF8BMMsLTPyFWMuBLjzENUtWOI8QKyuHAIxAEYnLM3X JzQlUDTtRJU3LpOcDJKtASAdpg5XNFEqTTM9XNe2BQBtDCGxASJeZXmfUZTzONH4GQPoMPGsZSCuHB4N GlGwYPFlTPkkMGJmVJJtIPOrfk9QHGMmFLC7NwD8Nx XxIHBsRCUvNOcrQYRnBMG8Bbg1SNEvOBYrAN3TInIbNGVbDUssTkZeRLJlBRUers9MDVYmKBC6SWR0IE GpIDJrJBHuJEwlLPDvIJY0HGq9CMYqNFZpZD8POdLrFBrkHMHSTeg4EAwjI0m1JZX9YN5DG5Gky5KmNJ ZjYXDCZRxuMR7qevBoDAFaUo7ZW6qHJho1OjApVPK7 Y2JwWAH9YuElSzpgHMH8IiMrRgR0SiPiYI4nHOz5NRV6SRnfGoV5HSGpDENmW7CjAovePSKuAMQaOEV6 DoCkCA0FZa7OZnP4TLJ9rFDxVf3ZUAb0IkrAObDjFX5DVIe= ID Date Data Source [id number] 11/01/2020 06:34:12 AM [facility] Name Value Range Interpretation Code Description Data Catrachita rce(s) Supporting Document(s) Calcidiol [Mass/volume] in Serum or Plasma 35 ng/mL >30 [facility] ID Date Data Source [id number] 11/01/2020 06:27:22 AM [facility] Name Value Range Interpretation Code Description Data Catrachita rce(s) Supporting Document(s) Cholesterol [Mass/volume] in Serum or Plasma 127 mg/dL <200 [facility] Triglyceride [Mass/volume] in Serum or Plasma 138 mg/dL <150 [facility] Cholesterol in HDL [Mass/volume] in Serum or Plasma 48 mg/dL >50 L [facility] Cholesterol in LDL [Mass/volume] in Serum or Plasma by calcu lation 51 mg/dL <100 [facility] Cholesterol in VLDL [Mass/volume] in Serum or Plasma by calc ulation 28 mg/dl 16-42 [facility] Cholesterol non HDL [Mass/volume] in Serum or Plasma 79 mg/dL <130 [facility] ID Date Data Source [id number] 10/31/2020 02:16:47 PM EDT [facility] Name Value Range Interpretation Code Description Data Catrachita rce(s) Supporting Document(s) [facility] GTGPMu7iBmWNNzMcc2YdLkUxRVQmOF6rpwf1J8W6eYJzX9DwnMTtc7ndE9WqT7XlFSZqWGATUU6JyCRb jb2 [file] AwMDAgbiAKMDAwMDAwMDUyMyAwMDAwMCBuIAowMDAw DHKeUtVcVAVjMNXaMJ7mJyTfUSFvRZC6HJSsRTCtWLUeayDTFVYlOQOvZXn9SPNwYOGmEAVmMSldVHEz UURiLDJ2ZPTyPYNsZS3xJpTrFEFjESFrXARxXMHtESOeniYAPXAjWNDqASM5HNHyLNCnNPTeKUxjNUXo IAFiVcw2YRZhTNVoIH8gKrKlMLKaGQW1DKUiGZNyVU FqlnZEQECzOYCoJQF0VjPmIKGxQSBqZJhkEXOgHFApIqI8UKJxTBNbOV4wPnOgWCToFPZ0GuIrLICxVU UvmeZQVJUyESAkZIY2ZuCxTBNfZRBmHVnuUFNvBGIlTZOuLBY3RQW6BNKdEaDcVWntVJSTSPlZB2Lafk LcNfPPG5thKg6sIwZxBQECY3Ouw3RgBKCeCDGSNn7+HlF1RKI8sBWpJrrfPZt7USulZOOEEj== ID Date Data Source [id number] 10/31/2020 02:16:32 PM EDT [facility] Name Value Range Interpretation Code Description Data Catrachita rce(s) Supporting Document(s) [facility] PYUOVk1bFqXSTqOos8SjNkRoCSTiMO1nlqm8A9G9nYIyL6OpzBNex7btF1XsT3VoCSWfFOBNQB9IuNCg jb2 [file] fvP/rw8t3//f6v/3Xx3N/security lead+++vTDR2+2VK/L75VP /+df/gpoq9W0dJl//Q4v8361iAW2iW1uc//xp+/++sN3P/+tdM4zNqwpT/5rA/c4vf/zn3/6+M3+Zf6i yHmp3/30Bu8Ctmf3bRdzVW/PP3z/p3//+Yc/sTyw53welCoXMlTby938lYY/+vFXf/v37/+Gyt9Leq4G 8buvv/vf37/Yy5//8ylXX51/LRfzN2+BDTwvk0xzcQ 9Xm785jX5p9QD9vTJV+er9Z+/tby6b2i7u79Qk/+TTT7/69svXsuXNUOjNDO+eI/1bcI8YsFgaxuErrS MeRM8KZA6cz6GbCfH5RORjg2PvMYvuTHb7qGAhYBckdnRrk0AhxnerB6Nco6UkYvKiXOKkLrPvMap8OL UtJsJ1sJWuPfLvSLJuJ4HfDWUdGwN7BkQzJGMXCD6S YXJlbnQgMiAwIFI+XmDrTL5nqcjmVTZsy5KbHBtqHNfbYBLeD9N5dUhcIWHwK2UlyL30LRPeX1CzquL7 OJN4SZBqAbMgVNAieJUnOCHkGJA+WzXzYR0ezulgFDUot2TmUWmnXKO7mU7kVShZVXOYBTcCPZgxIrS5 c86bmsCXAAMwTIKhJM2ThsJqjTllxuPvfARbFPR9Tz KcYGD2WBspFDH1UUMGCTMyLHMjFPZgYNAtR1KibVtxXCiFPAZFLAqEOSkoDpBvx1Q7PMYcgmMXOWRUC9 3rDQkJIpYQIJttBOJ5NIPhSHhcS2K8FgvxL6JbHG9EI8TlNEAnDQSCUOAelaJiJM6ZjeCaiS8xHLtXOE MWEWfHIWzuQxT3q87wibEHXAAzZWMpHQwiUAFvQSGu MKGhRGRaZHRoAZLhSJYwXH4DD9KzNUYmBWXPUQI1e9MmWHBcfxellrztFb9drkAePtm+QpdlVTTjk3Ev QRjkA1L1yKCuB1LoG0WjJQ9IzGViUQegUFOiYCHlVIVqB175ugXtZB0+UY3qk2CiZnvnMTDFPUCvWOVr SZRuIPX3MdMdQSNeVSHsMMAtHxB6ZuDyBmTBIVBaSZ A9CVS2XYOsOSKyCAHqZDajVRTvGSS3HjStTQCzYPUjZY7gNgFzYWRoLov1OYCnBXLkDEUsdsXHJZMnYD YzJUCqNIP8QXTkHYMrBIfqKRZcXGUfXCV9BSRhGPKyOY5mDfNlRWFiSMSeTkhzJTOtRMVnezWZWOIuCV SjDII1OhOfPYMoZPWzWQrnSCAiILOhVvu7VJAxEWCp DP7jGoRlKSOqBEP0HGhjDLYpPFUqfmOAYRZeULLqMNPbLfFwSIOzTKEuFHbjKLAlNJZwMvGdISLnELTl YA8wKpIkPLBpKWV5ZXCrKMSrBOLqvwENVNAsPIMwDUe8QUZlKWHsYBYdOGepYIIhTOAgRJE1OGEjYMPh MY3wViDtKOXtIIZaLHDvZSVxEXQieqLZUBGwNAMkGN P6WBNyVGZwSDGrPGdlRNHjQXWfWtg4KQZvUYJuXG2xAvKaUPEtXAJ6CLWiPXWrPFLumsTSQDHgVDYkAJ DzImQkCSPhJOBpXNjyAPDqBCMtAsF8IWHjFRSuTY7lAcWhFSYvIJC3HsMxAEHdMVBdpdODMYGfXUDrVQ V8YaHpQKZgDVOfARzzIUCuBDYyYVGuQGH8XDM2FHSs GzYuGOacKRFRAYpSU1EhylZvOkSIY0heRl4cOwDiDJQCV4Qtk2UjKWVvNEWMVe8+YcQ7PIJ0vOOkTeh3 MDEwNQolJUVPRg== ID Date Data Source [id number] 10/31/2020 01:42:54 PM EDT [facility] Name Value Range Interpretation Code Description Data Catrachita rce(s) Supporting Document(s) Color of Urine [facility] Clarity of Urine [facility] Specific gravity of Urine by Refractometry automated 1.020 1.003 -1.030 [facility] pH of Urine by Automated test strip 6.0 5.0-8.0 [facility] Protein [Mass/volume] in Urine by Automated test strip Neg [facility] Glucose [Mass/volume] in Urine by Automated test strip Neg [facility] Ketones [Mass/volume] in Urine by Automated test strip Neg [facility] Bilirubin.total [Presence] in Urine by Automated test strip Negative [facility] Hemoglobin [Presence] in Urine by Automated test strip Neg [facility] Leukocyte esterase [Presence] in Urine by Automated test strip Negative [facility] Nitrite [Presence] in Urine by Automated test strip Negati [facility] Leukocytes [#/area] in Urine sediment by Automated count 4 /HPF 0 -5 [facility] Erythrocytes [#/area] in Urine sediment by Automated count 1 /HPF 0-3 [facility] Epithelial cells.squamous [#/area] in Urine sediment by Auto mated count 16 /HPF None [facility] Mucus [#/area] in Urine sediment by Microscopy low power field None [facility] ID Date Data Source [id number] 10/31/2020 01:03:00 AM EDT [facility] Name Value Range Interpretation Code Description Data Catrachita rce(s) Supporting Document(s) SARS coronavirus 2 RNA [Presence] in Res piratory specimen by MACKENZIE with probe detection NEGATIVE [facility] This lab was ordered by [facility] a nd reported by [facility]. ID Date Data Source [id number] 10/19/2020 04:43:00 AM EDT [facility] Name Value Range Interpretation Code Description Data Catrachita rce(s) Supporting Document(s) SARS coronavirus 2 RNA [Presence] in Res piratory specimen by MACKENZIE with probe detection NEGATIVE [facility] This lab was ordered by [facility] a nd reported by [facility]. ID Date Data Source [id number] 10/05/2020 12:42:49 AM EDT [facility] Name Value Range Interpretation Code Description Data Catrachita rce(s) Supporting Document(s) Discharge Summary [facility] QFMPRm8uGuPHKmIq12/VYZapBAOgx7BsWUlgFCh9GZsyXCTlP8ZqHBK1nB8eFHK0LEnXCmHwLvTgRNZ7 lbm [file] RjAgMTQgMCBSDQogICAgICAvRjEgMTcgMCBSDQogIC HbMGRwWjIzHbJbFBPZPGmcJSMeDBEnAyDnCnLqOPALTDyxBWRaPXGoUdBiPaLpINYBWa3UHqZqCPOxWZ 5dcbQeuAW1TIU+Op9BMCTxUH7GdMBLQ6FayEFzHDlhB7UXIT1ZUVO2OO8SqBLiTT8RcTPHC6EoxDDhUe 3zNMXbh7NtJw7vJ3EQDUWWQSEwLWurHBxqCIAkEYq0 X2V3ZJEbK1RFB093qXFdtUo7Gt3oO5XNNRgCSlNfPEcsGVugMQHfTNb1B7E1ORPsL0QVQ1AhWuQyacLu Y2U+WpYrYYPGIH4WRQJRUXt9Z8G1kWFaX8P0cOsQbNR7VX5SWW2HxFSzrWAlt38+YrSMQlQfUGJxG1AE UJSQOhHgXGnvHIrbDHGhREa8T2F4GWQmZ8NUN9lbG4 h0ZW4+LsKVVtIaXWGqJj6FUgCjIx3VApVuDK0xyw1OFgydKMWyWmvLAnu2C0karwu8zCLcAiW4Q8Z5Za D4kLXoXX7OL0Z9oZFpKEB4LBMfuRP+Gs0Qx5LtSDRaTUp6R4fpEHJvJONuFdYhhJ76Z++8tgmsyGJ4C1 y8OSNPbQEjqTwVvjYxD7uVSUU2g7V7QFw/At1XIVX6 bRd6eLJxJODuLIj0yW4hcUk6YjOdST36USCzJTvhmT3iHxf6S4Tqu6TuJf1uJf0bqRNmNn2OZmLvWZP1 blXyDkTEZiG5rLaqgovlZCP1W7m5fFV5Vz35w7bwghWop9YdCwD7TUabTCUiVcOyhzKzFRC6pwYkqI9t oyRsBu9CXIGqXPowziFrZdXVRq1JIjCwLG02AvjhgG 1ldGE+DQogICAgICAgICAgICAgICAgICAgICAgICAgICAgICAgICAgICAgICAgICAgICAgICAgICAgIC AgICAgICAgICAgICAgICAgICAgICAgICAgICAgICAgICAgICAgICAgICAgICAgDQogICAgICAgICAgIC AgICAgICAgICAgICAgICAgICAgICAgICAgICAgICAg ICAgICAgICAgICAgICAgICAgICAgICAgICAgICAgICAgICAgICAgICAgICAgICAgICAgICAgICAgDQog ICAgICAgICAgICAgICAgICAgICAgICAgICAgICAgICAgICAgICAgICAgICAgICAgICAgICAgICAgICAg ICAgICAgICAgICAgICAgICAgICAgICAgICAgICAgIC AgICAgICAgDQogICAgICAgICAgICAgICAgICAgICAgICAgICAgICAgICAgICAgICAgICAgICAgICAgIC AgICAgICAgICAgICAgICAgICAgICAgICAgICAgICAgICAgICAgICAgICAgICAgICAgDQogICAgICAgIC AgICAgICAgICAgICAgICAgICAgICAgICAgICAgICAg ICAgICAgICAgICAgICAgICAgICAgICAgICAgICAgICAgICAgICAgICAgICAgICAgICAgICAgICAgICAg DQogICAgICAgICAgICAgICAgICAgICAgICAgICAgICAgICAgICAgICAgICAgICAgICAgICAgICAgICAg ICAgICAgICAgICAgICAgICAgICAgICAgICAgICAgIC AgICAgICAgICAgDQogICAgICAgICAgICAgICAgICAgICAgICAgICAgICAgICAgICAgICAgICAgICAgIC AgICAgICAgICAgICAgICAgICAgICAgICAgICAgICAgICAgICAgICAgICAgICAgICAgICAgDQogICAgIC AgICAgICAgICAgICAgICAgICAgICAgICAgICAgICAg ICAgICAgICAgICAgICAgICAgICAgICAgICAgICAgICAgICAgICAgICAgICAgICAgICAgICAgICAgICAg ICAgDQogICAgICAgICAgICAgICAgICAgICAgICAgICAgICAgICAgICAgICAgICAgICAgICAgICAgICAg ICAgICAgICAgICAgICAgICAgICAgICAgICAgICAgIC AgICAgICAgICAgICAgDQogICAgICAgICAgICAgICAgICAgICAgICAgICAgICAgICAgICAgICAgICAgIC ZdZGDrRVPzKKUaMWEnPZBwGGEaMREdZOIxOEOqWQBmGAXkSMIyODPhNFOrYGMwJMOjGVDgSFAcKPo7I2 xbEZJpVWEdXN9pGAv0Ml4+YHaFZuGbQDL4wpMrwL4H AA9so7TcIIbaJXIch0HzHAh7MD2ZNUTdIPlqTJ3ZCXconz2FKODnDBCivXZQa0npSsDpZOE2HGMiCtyp WN6OAJKrQ4wpeyMsGOSeVORUDHniEUMHNUgdLRRENFMsAGOzOcYhIPnqVA0Tv2JhoMW9PVu+Ge6FPN1w c2JgRUbqBNShNS5thw9ISRxAReXlC6JlqzO7PVWgGI WaVt9IGPHyDJMokKAtBQCaBZKRKdIwP7HwzE73OQJKLd4+JXepxaUcCoeQMqBcTOVbv6XcXVy0GH5TJR YeGQv6pDIdFNgmA5trrfapVFL6iE8giupwGnqiQMlviPRrdAQHSQ8mjCKkRY9JHLW6CXFzId8wXMVbJR G6RuReZNSJJI2WZCUxJNApcYVdUQAcTXAUEL5KYLqx NVI9WIGyshQfbPYcOZjrDI6HKGQrvnMlXkxzCWLXMHc+Xp5QLM6sb9QhRZdoIWNjLB1vip4CPQeKFcGh Q9H6eMVvW1F6SNixIj6YCBOnDCEsNlfbIPWCXKxbSM6DCR3hdhL0DX9CwFGuGBJnGRDtzUHqGHd7X97p tOTwXRzkLE0HBGI+Sharon+Im7UIZVpUWBrFKNaMzDgTJ RIIpQwT3SpB5OLa8TnR9YlFM47gHchktNhJVoeEJ8SXX9tLEZgJCLARR5QuHWbaF2mgeDiIEMjUUIYBz UnC14bpWLeXEEgVBY9MTIrDh5IHUYuC6MasdUkpRnypkFaTWArHRVVGK4WCUjtseAlnQItpNhcEV58tX mcIB6NAf1SFtQdVW7fta4FwVPnNl6DLAKfTp4IMOIk QWCfLJKcUQD8HPHuSyDdKMpnTXGkYKImLSU6KAAiKGMxMN3JHlJgOTCzNDp4LBEsMKOwXTEugy3APEUd HCOnZJYaFVRaAKElFFAaTQpvUZVuXRAnCXW0VMEgUVLjQO7CFtHpFMUbUHVlYeyrNZRdQYImkh2YLCKs ZWStESN9HJTcFARrYVFeMFrkDMRbYAL7Nwo4YVTdVA PeAE4APyRcRMBvQEw6UVBxJEYxDNCvit4JLNQxRLJgXJT8IKEnLRAfLLVdSDtuMVGgFWIsPWJ3DJInNT XpOG4ZCcOoCONlGOT5ZDCbSYZmHDLkvz2TGBKhTXEpQpJ2DgShSQJeURKoPBeqANVdPBXgImY0YTGbFE AoYH6DCaYsNZOaPJK3AMMkFMNzPRZeny5EHDGlNJRb EGNmFnAwRQDvNJMvLAhsLMPqVHV4OOi8GOVhNUMxJX6HLdQvTRZeHJZyVOykTHNxDDTihi9BVJAeCHBb TWU6ZdEfCVTnBXYzPAgcGHEkMEE8DwE0EVYsKLIbTB5RJyDnWPVoMEP3IagdRDSoSBEwyy9ZFJHvGGTy HejkXGGfIFTkNKXySXjwPFHhOYO4Dro0RZCzZGXcAZ 1BBuIkHQFvIDn9OXIfCPWcQROnyt1PLQOxNMWuIJB4EKXfNTKuANRzLBeaPTWuLSX4TQN1STKgZJUgUA 7IReDoPWPdNMjdCuxoLKRxTGKdpu4FXCSzZPJdLVJpABFlSXEmWLLsSMajORYhKUM9TYe0HOEjNZNaLI 5JAmCjGLWwAlFgOsAcBMIcOPCuew4YSIAnZTJdYTSx OmDuIVFjRNTaCVmhBCMtMVZmUQQ0AHTdVLXlLK8XVbQzLAnbZVBWVma0XKuvX9m2YGYiCl8YS3Zzc0Gv CfXmLEIDGZwlDI2dsrAmEDKcJx9UX9cAMpegPDS1BhK2VEL5JgPhBNTuDHLpH9O2GFYgIsU4BZN7Ps9d QJI5KNsrSvG3CXCjH4MpUuC1BVSjXDj7HhF7PhMeYc GfEvEnVK6TCs9IOhS1EIK5lZEkAc6XUaQ4UGNAAvPtOZ2AFAd= ID Date Data Source [id number] 09/28/2020 12:45:49 PM EDT [facility] Name Value Range Interpretation Code Description Data Catrachita rce(s) Supporting Document(s) ED Provider Note [facility] MBNYHv1cSxUNVjBs73/SHDkeCEYcw0SlBDeoFZj8GXnuPAOtR6SiYQX1lF8jDJZ5OCsUEdGyRyRdFQW2 lbm [file] 6ky29xaUvRoC0/FGtrbhQido/hj7HY5JRBTA8ITYGOGVD1KS/kdXwFs94lclHUtLX+jose m/iMQO6yTKy [file] EiVXr3R62msYDvZDnrXN8ZHHM+Sharon+Wk8GQHQrLFIf MDRgRbViZUSPGoDnP3DdV8UWs9LxJ1QnET94cMchvtJlMFkrGD3BND1eUKZaDINWNS6PjUMvhQ2gfsU9 RiSpSTWLMrTxL01krSIvABEkRLN8JJZgTl5LRGHuI0OzqxVttVlbzuGnGTSlHINJHX8ANQtifrVczYEa rExrET22lJmvOG0OVo6FErOnYI7hfb6LiCAuHa0VJK M2Td1FUDLgNHXpTNMnMDE3OACsEvNlOOalTIVkWCXoXZL0SPAcAXWwJD1DErPpIWUzWYWrLEwhRDAdKA Ehvn6ITXFlNTD4Vlo1HGDsKKUmYJBlZRiaXIHkHZGxUZJ6ETCtPDWkTO2GNeVpHQDwMUU0VpRbYLIjXV Bgyx8JBUTwKBUpWiuvXIFrGWQzXXDoTDoeURXkCHY7 QLq9UMGaKGGqYO4MZvYvNQBzJSLvQVVaYIPwZRWera3SCVWpTPIwKEF7TDRjRCEfYCYnHJfcNQVhVYN2 HsNrOGZwPRKfNX9FWsGxNZZxQYI6MGYtEZXlXPGpsj5MWHVkSZBrOhO5WsInXMRtDWFoKHhqCSZgBXL0 XErrCEMdMCLcAV9VKiBtCNWkEVClAhjzRJAsAAGgvv 2MNSSeRWOpVJkdXHVqNSKiQWLuYLdoQXGvAHG6XXI8CBBbFGVpDT5VYqJsTLBxLxN8KYPvRAJvXODiyj 0YOSVwJEEcZXJ0TUMnSJBpFCRmQXjlNZToIMD4KDJ1EHTkZMTzXE8KWiMyCTOxPrAeJTHuDBItWNTozb 1SMLLeBDSmKLG7UFYvAKTaVXMoODkdFICmEUN7NZw3 VMVgXAFmWI7IKoXaUHVvTzO2WHUjRJUcNEJdxk3SVTVvGQUtWxd5LHYpLNLeCONqDZkxBEEeCZN1Wgbt JBTiEZXtOY6CWkEkMFXuFkI6XnerPAXcZUXdcr6EWQEjWKCnQKJwTUTgFDNhHDWoREytJRAjLPD1TeE2 XIDmKQDvXL4REnNpGLQoBenjNVzoIUVtBIUdep8ULY JcAZLtIWG2JTYeSGVyKSCfQBuqJAEbVVH2JnB9WVLtDXSoET5VOdNdYDVeYTI3WkPxPOSuNMFctt2MXG UnUUR6MXtsCCTuHKTvZIQiVMqpXFUqEBMcVPP6RQOwNBZbQF7MXnBsUUKeVFB1DgLlLPVcVVLvzf9SWU KuSST6KdD6YlAbRRZpYZGpVXwiPRDoUBAbYdB0NVSj QSFeNY8KVdDaRAJwLDA9QJWdAPZoDQEbzm4MURRtPSL6FQQjBSThYWZlBPYhXMhtXFSsZOS6ZoXrLSUr FEHmGS5EEeKfCLTxWCH8IaJkABIhNQWamc8DZFGmBWO2FOolYvPtUDMbNPSpWPztTHFjEYX8AuNcJAUj BIRgFL5JCrLvNLVbVFP1YZaeYKNdKKSjpm4VPJMxYT F5PtXsNlOkKHPmUJOnFCqaFBLtDYC6TUM0ATWhBHIuND5KOcSzPREiVAu4LjOpUGDcRRRiyk2FOQMjUD M5HHW9BUUtXVBxPJRnNXctVFApITZ4OqTmCLLgTZUaLJ3TUjYhWTVtRYrhEQtdGSNaCQFold6XMLHwEK B2HIB6BGVwOREnMSFtKVrgBOMpIYZ3JoDtIZAcOCDw XO3XSrOsMNDrWNn1TNCxOSAzFLSxgy3QDFLqWIC8JCNxBuJgGBOfCBAeMZkcSYDuNYO6Xgj5VRNeKPPb HJ0JYvHyIBjzONXOEqc9HZowI2h3LLI3Qy3DL9Jde2WvOVUvLZBYKOabEI2jarBiMZFoCe5AI7sPBho7 BsIcB7UtRvC7EZtlPrQ4QIMdFZXsRmfyVlMlO9QyQY 7tSQc0XwJqBTNsSPt5PDW8Ohs1KKWbREPkP7DmPHL3XMI5QsHvWH0NIw2OVbE0BVK4zJWdMc2KAQd0Gb BUBdVeKB5DHRa= ID Date Data Source [id number] 09/28/2020 08:12:55 AM EDT [facility] Value Range Interpretation Code Description Data Catrachita rce(s) Supporting Document(s) Valproate [Mass/volume] in Serum or Plasma 42 ug/ml 50-100 L [facility] ID Date Data Source [id number] 09/27/2020 08:31:56 AM EDT [facility] Value Range Interpretation Code Description Data Catrachita rce(s) Supporting Document(s) Ammonia [Moles/volume] in Plasma 69 umol/L 11-51 H [facility] ID Date Data Source [id number] 09/26/2020 05:50:55 AM EDT [facility] Value Range Interpretation Code Description Data Catrachita rce(s) Supporting Document(s) Bicarbonate [Moles/volume] in Serum 22 mmol/L 22-29 [facility] Chloride [Moles/volume] in Serum or Plasma 107 mmol/L 98-107 [facility] Creatinine [Mass/volume] in Serum or Plasma 0.72 mg/dL 0.50-0.90 [facility] Glucose [Mass/volume] in Serum or Plasma 90 mg/dL 70-140 [facility] Potassium [Moles/volume] in Serum or Plasma 3.8 mmol/L 3.4-5.[address] [facility] Sodium [Moles/volume] in Serum or Plasma 139 mmol/L 136-145 [facility] Urea nitrogen [Mass/volume] in Serum or Plasma 18 mg/dL 6-20 [facility] Anion gap 3 in Serum or Plasma 10 mmol/L 8-15 [facility] Osmolality of Serum or Plasma by calculation 289 mosm/kg 275-300 [facility] Creatinine/Urea nitrogen [Mass Ratio] in Serum or Plasma 25 [facility] Calcium [Mass/volume] in Serum or Plasma 8.3 mg/dL 8.6-10.0 L [facility] Glomerular filtration rate/1.73 sq M pre dicted among non-blacks [Volume Rate/Area] in Serum or Plasma by Creatinine-based formula (MDRD) >6 0 [facility] Glomerular filtration rate/1.73 sq M pre dicted among blacks [Volume Rate/Area] in Serum or Plasma by Creatinine-based formula (MDRD) >60 [facility] ID Date Data Source [id number] 09/25/2020 06:37:56 AM EDT [facility] Name Value Range Interpretation Code Description Data Catrachita rce(s) Supporting Document(s) Bicarbonate [Moles/volume] in Serum 24 mmol/L 22-29 [facility] Chloride [Moles/volume] in Serum or Plasma 107 mmol/L 98-107 [facility] Creatinine [Mass/volume] in Serum or Plasma 0.85 mg/dL 0.50-0.90 [facility] Glucose [Mass/volume] in Serum or Plasma 90 mg/dL 70-140 [facility] Potassium [Moles/volume] in Serum or Plasma 4.0 mmol/L 3.4-5.1 [facility] Sodium [Moles/volume] in Serum or Plasma 138 mmol/L 136-145 [facility] Urea nitrogen [Mass/volume] in Serum or Plasma 15 mg/dL 6-20 [facility] Anion gap 3 in Serum or Plasma 7 mmol/L 8-15 L [facility] Osmolality of Serum or Plasma by calculation 285 mosm/kg 275-300 [facility] Creatinine/Urea nitrogen [Mass Ratio] in Serum or Plasma 18 [facility] Calcium [Mass/volume] in Serum or Plasma 8.4 mg/dL 8.6-10.0 L [facility] Glomerular filtration rate/1.73 sq M pre dicted among non-blacks [Volume Rate/Area] in Serum or Plasma by Creatinine-based formula (MDRD) 88 mL/min/1.73m2 >60 [facility] Glomerular filtration rate/1.73 sq M pre dicted among blacks [Volume Rate/Area] in Serum or Plasma by Creatinine-based formula (MDRD) >60 [facility] ID Date Data Source [id number] 09/24/2020 05:14:28 AM EDT [facility] Name Value Range Interpretation Code Description Data Catrachita rce(s) Supporting Document(s) Leukocytes [#/volume] in Blood by Automated count 8.2 10*3/uL 4-10 [facility] Erythrocytes [#/volume] in Blood by Automated count 4.54 10*6/uL 4.1- 5.3 [facility] Hemoglobin [Mass/volume] in Blood 13.3 g/dL 11.5-15.5 [facility] Hematocrit [Volume Fraction] of Blood by Automated count 41.0 % 3 6-45 [facility] Erythrocyte mean corpuscular volume [Entitic volume] by Auto mated count 90.3 fL 80-96 [facility] Erythrocyte mean corpuscular hemoglobin [Entitic mass] by Automated count 29.4 pg 27-33 [facility] Erythrocyte mean corpuscular hemoglobin concentration [Mass/volume] by Automated count 32.5 g/dL [facility].0-36.[facility] width [Ratio] by Automated count 14.5 % 11.5-14.5 [facility] Platelets [#/volume] in Blood by Automated count 248 10*3/uL 150-400 [facility] Differential cell count method - Blood [facility] Neutrophils/100 leukocytes in Blood by Automated count 60 % [facility] Lymphocytes/100 leukocytes in Blood by Automated count 27 % [facility] Monocytes/100 leukocytes in Blood by Automated count 9 % [facility] Eosinophils/100 leukocytes in Blood by Automated count 3 % [facility] Basophils/100 leukocytes in Blood by Automated count 1 % [facility] Neutrophils [#/volume] in Blood by Automated count 4.91 10*3/uL 1.8-7 .0 [facility] Lymphocytes [#/volume] in Blood by Automated count 2.20 10*3/uL 1.2-4 .0 [facility] Monocytes [#/volume] in Blood by Automated count 0.74 10*3/uL 0-0.8 [facility] Eosinophils [#/volume] in Blood by Automated count 0.28 10*3/uL 0-0.5 [facility] Basophils [#/volume] in Blood by Automated count 0.07 10*3/uL 0-0.2 [facility] Nucleated erythrocytes/100 leukocytes [Ratio] in Blood by Automated count 0 /100{WBCs} 0-0 [facility] ID Date Data Source [id number] 09/24/2020 05:24:02 AM EDT [facility] Name Value Range Interpretation Code Description Data Catrachita rce(s) Supporting Document(s) Bicarbonate [Moles/volume] in Serum 24 mmol/L 22-29 [facility] Chloride [Moles/volume] in Serum or Plasma 109 mmol/L 98-107 H [facility] Creatinine [Mass/volume] in Serum or Plasma 0.87 mg/dL 0.50-0.90 [facility] Glucose [Mass/volume] in Serum or Plasma 92 mg/dL 70-140 [facility] Potassium [Moles/volume] in Serum or Plasma 4.1 mmol/L 3.4-5.1 [facility] Sodium [Moles/volume] in Serum or Plasma 140 mmol/L 136-145 [facility] Urea nitrogen [Mass/volume] in Serum or Plasma 16 mg/dL 6-20 [facility] Anion gap 3 in Serum or Plasma 7 mmol/L 8-15 L [facility] Osmolality of Serum or Plasma by calculation 291 mosm/kg 275-300 [facility] Creatinine/Urea nitrogen [Mass Ratio] in Serum or Plasma 18 [facility] Calcium [Mass/volume] in Serum or Plasma 8.4 mg/dL 8.6-10.0 L [facility] Glomerular filtration rate/1.73 sq M pre dicted among non-blacks [Volume Rate/Area] in Serum or Plasma by Creatinine-based formula (MDRD) 86 mL/min/1.73m2 >60 [facility] Glomerular filtration rate/1.73 sq M pre dicted among blacks [Volume Rate/Area] in Serum or Plasma by Creatinine-based formula (MDRD) >60 [facility] ID Date Data Source [id number] 09/23/2020 04:52:46 AM EDT [facility] Name Value Range Interpretation Code Description Data Catrachita rce(s) Supporting Document(s) Leukocytes [#/volume] in Blood by Automated count 7.2 10*3/uL 4-10 [facility] Erythrocytes [#/volume] in Blood by Automated count 4.52 10*6/uL 4.1- 5.3 [facility] Hemoglobin [Mass/volume] in Blood 13.4 g/dL 11.5-15.5 [facility] Hematocrit [Volume Fraction] of Blood by Automated count 40.6 % 3 6-45 [facility] Erythrocyte mean corpuscular volume [Entitic volume] by Auto mated count 89.8 fL 80-96 [facility] Erythrocyte mean corpuscular hemoglobin [Entitic mass] by Automated count 29.7 pg 27-33 [facility] Erythrocyte mean corpuscular hemoglobin concentration [Mass/volume] by Automated count 33.0 g/dL 32.0-36.0 [facility] width [Ratio] by Automated count 14.7 % 11.5-14.5 H [facility] Platelets [#/volume] in Blood by Automated count 247 10*3/uL 150-400 [facility] Differential cell count method - Blood [facility] Neutrophils/100 leukocytes in Blood by Automated count 58 % [facility] Lymphocytes/100 leukocytes in Blood by Automated count 30 % [facility] Monocytes/100 leukocytes in Blood by Automated count 8 % [facility] Eosinophils/100 leukocytes in Blood by Automated count 3 % [facility] Basophils/100 leukocytes in Blood by Automated count 1 % [facility] Neutrophils [#/volume] in Blood by Automated count 4.14 10*3/uL 1.8-7 .0 [facility] Lymphocytes [#/volume] in Blood by Automated count 2.19 10*3/uL 1.2-4 .0 [facility] Monocytes [#/volume] in Blood by Automated count 0.58 10*3/uL 0-0.8 [facility] Eosinophils [#/volume] in Blood by Automated count 0.23 10*3/uL 0-0.5 [facility] Basophils [#/volume] in Blood by Automated count 0.06 10*3/uL 0-0.2 [facility] Nucleated erythrocytes/100 leukocytes [Ratio] in Blood by Automated count 0 /100{WBCs} 0-0 [facility] ID Date Data Source [id number] 09/23/2020 05:10:49 AM [facility] Name Value Range Interpretation Code Description Data Catrachita rce(s) Supporting Document(s) Bicarbonate [Moles/volume] in Serum 23 mmol/L 22-29 [facility] Chloride [Moles/volume] in Serum or Plasma 104 mmol/L 98-107 [facility] Creatinine [Mass/volume] in Serum or Plasma 0.80 mg/dL 0.50-0.90 [facility] Glucose [Mass/volume] in Serum or Plasma 86 mg/dL 70-140 [facility] Potassium [Moles/volume] in Serum or Plasma 4.0 mmol/L 3.4-5.1 [facility] Sodium [Moles/volume] in Serum or Plasma 134 mmol/L 136-145 L [facility] Urea nitrogen [Mass/volume] in Serum or Plasma 14 mg/dL 6-20 [facility] Anion gap 3 in Serum or Plasma 7 mmol/L 8-15 L [facility] Osmolality of Serum or Plasma by calculation 278 mosm/kg 275-300 [facility] Creatinine/Urea nitrogen [Mass Ratio] in Serum or Plasma 17 [facility] Calcium [Mass/volume] in Serum or Plasma 8.5 mg/dL 8.6-10.0 L [facility] Glomerular filtration rate/1.73 sq M pre dicted among non-blacks [Volume Rate/Area] in Serum or Plasma by Creatinine-based formula (MDRD) >6 0 [facility] Glomerular filtration rate/1.73 sq M pre dicted among blacks [Volume Rate/Area] in Serum or Plasma by Creatinine-based formula (MDRD) >60 [facility] ID Date Data Source [id number] 09/22/2020 05:25:54 AM [facility] Name Value Range Interpretation Code Description Data Catrachita rce(s) Supporting Document(s) Leukocytes [#/volume] in Blood by Automated count 7.3 10*3/uL 4-10 [facility] Erythrocytes [#/volume] in Blood by Automated count 4.41 10*6/uL 4.1- 5.3 [facility] Hemoglobin [Mass/volume] in Blood 12.8 g/dL 11.5-15.5 [facility] Hematocrit [Volume Fraction] of Blood by Automated count 40.0 % 3 6-45 [facility] Erythrocyte mean corpuscular volume [Entitic volume] by Auto mated count 90.7 fL 80-96 [facility] Erythrocyte mean corpuscular hemoglobin [Entitic mass] by Automated count 29.1 pg 27-33 [facility] Erythrocyte mean corpuscular hemoglobin concentration [Mass/volume] by Automated count 32.1 g/dL 32.0-36.0 [facility] distribution width [Ratio] by Automated count 14.6 % 11.5-14.5 H [facility] Platelets [#/volume] in Blood by Automated count 255 10*3/uL 150-400 [facility] Differential cell count method - Blood [facility] Neutrophils/100 leukocytes in Blood by Automated count 54 % [facility] Lymphocytes/100 leukocytes in Blood by Automated count 33 % [facility] Monocytes/100 leukocytes in Blood by Automated count 9 % [facility] Eosinophils/100 leukocytes in Blood by Automated count 3 % [facility] Basophils/100 leukocytes in Blood by Automated count 1 % [facility] Neutrophils [#/volume] in Blood by Automated count 3.99 10*3/uL 1.8-7 .0 [facility] Lymphocytes [#/volume] in Blood by Automated count 2.37 10*3/uL 1.2-4 .0 [facility] Monocytes [#/volume] in Blood by Automated count 0.65 10*3/uL 0-0.8 [facility] Eosinophils [#/volume] in Blood by Automated count 0.21 10*3/uL 0-0.5 [facility] Basophils [#/volume] in Blood by Automated count 0.06 10*3/uL 0-0.2 [facility] Nucleated erythrocytes/100 leukocytes [Ratio] in Blood by Automated count 0 /100{WBCs} 0-0 [facility] ID Date Data Source [id number] 09/22/2020 05:48:42 AM EDT [facility] Name Value Range Interpretation Code Description Data Catrachita rce(s) Supporting Document(s) Bicarbonate [Moles/volume] in Serum 24 mmol/L 22-29 [facility] Chloride [Moles/volume] in Serum or Plasma 108 mmol/L 98-107 H [facility] Creatinine [Mass/volume] in Serum or Plasma 0.78 mg/dL 0.50-0.90 [facility] Glucose [Mass/volume] in Serum or Plasma 95 mg/dL 70-140 [facility] Potassium [Moles/volume] in Serum or Plasma 3.9 mmol/L 3.4-5.1 [facility] Sodium [Moles/volume] in Serum or Plasma 139 mmol/L 136-145 [facility] Urea nitrogen [Mass/volume] in Serum or Plasma 12 mg/dL 6-20 [facility] Anion gap 3 in Serum or Plasma 7 mmol/L 8-15 L [facility] Osmolality of Serum or Plasma by calculation 288 mosm/kg 275-300 [facility] Creatinine/Urea nitrogen [Mass Ratio] in Serum or Plasma 15 [facility] Calcium [Mass/volume] in Serum or Plasma 8.3 mg/dL 8.6-10.0 L [facility] Glomerular filtration rate/1.73 sq M pre dicted among non-blacks [Volume Rate/Area] in Serum or Plasma by Creatinine-based formula (MDRD) >6 0 [facility] Glomerular filtration rate/1.73 sq M pre dicted among blacks [Volume Rate/Area] in Serum or Plasma by Creatinine-based formula (MDRD) >60 [facility] ID Date Data Source [id number] 09/21/2020 02:54:18 PM EDT [facility] Name Value Range Interpretation Code Description Data Catrachita rce(s) Supporting Document(s) Consultation [facility] QIBISe7iCxLRXkNp01/WFPriCVHjq4DdRXskYXz9KDsjNGXnZ6SdYJX5vP3jRVF6MPsPVgPcBnHmDXWw [facility] [file] [id number] ID Date Data Source [id number] 09/20/2020 08:26:52 PM EDT [facility] Name Value Range Interpretation Code Description Data Catrachita rce(s) Supporting Document(s) Consultation [facility] AYTZNp3sFeNTWyYn93/TCIiiDBXyb8BqGPwyUGl4FUsnTLVgI5SbGMS4vA8iQFQ9OSzPMwLmOgHrOHQ9 [facility] [file] [id number]OPJ2SFAw== ID Date Data Source [id number] 09/20/2020 11:36:03 AM EDT [facility] Name Value Range Interpretation Code Description Data Catrachita rce(s) Supporting Document(s) Consultation [facility] [id number]/AQZxiKFRda5ZqCTozYJq1SNclGFRtS1SgCHW2aH2uFLZ7QPrWKxSeHjPrLYV3 [facility] [file] ID Date Data Source [id number] 09/19/2020 02:20:12 PM EDT [facility] Name Value Range Interpretation Code Description Data Catrachita rce(s) Supporting Document(s) Consultation [facility] MEMLHf0oSlDVRsVa69/BXCjtPUJnp6LeIQaeTTz0JMenUFWbA2CkYWZ0tK5oPTJ4AShGUlIgLeWfGFO7 [facility] [file] ICAgICAgICAgICAgICAgICAgICAgICAgICAgICAgICAgICAgICAgICAgICAgICAgICAgICAgICAgICAg ODXbVYEhTDSeARUoQFGsVOMmJWXwTHUjKERlRBFtAFSnPGZjFK1KXYXaIHRoGSFcHDHiGTBmPQPjDTQl ICAgICAgICAgICAgICAgICAgICAgICAgICAgICAgIC FxNHUySOToLMTfSQQbNKTfVJWiVDFtMPRgOVSrIEQxXIKgIKDcQZSgYRAzCYAmGN9SSMVxLGLtOKGlWO AgICAgICAgICAgICAgICAgICAgICAgICAgICAgICAgICAgICAgICAgICAgICAgICAgICAgICAgICAgIC HhDYIlCELjCZSrOWGuPKTwPMBvCJEoIXSeATYlIN3R ICAgICAgICAgICAgICAgICAgICAgICAgICAgICAgICAgICAgICAgICAgICAgICAgICAgICAgICAgICAg CXUiAXUtDTYbPMLtMGVqOLVkSBCjUWOiXMRhAFNxMGCaKVCtMYHgOY6WWLInJSMgKBLzPRUvVNCrGBZp ICAgICAgICAgICAgICAgICAgICAgICAgICAgICAgIC CkCHHtFXPlHBHgPNBmMNDcWZTzEZQwJRLhTNOoNXYiJEYsBIPcTQVzGFWlNKSqDEKiDH9DAGQzGCAgXP AgICAgICAgICAgICAgICAgICAgICAgICAgICAgICAgICAgICAgICAgICAgICAgICAgICAgICAgICAgIC AgICAgICAgICAgICAgICAgICAgICAgICAgICAgICAg CB1JWMHoMVVkMDCwPXHpAZSwTLCzJJBlNELdEIZbRUSnSLTwKIJmCNQuZGSfBJJwVTEmUHYaGBUyKVHx YMJaWZSaJYXyRLLaHNJeTGQrHBVpPACaHQIzGWHqNSGnCPRpDPGeVRYnMS7ISVIoHXUaBOKgZSFdSWFg ICAgICAgICAgICAgICAgICAgICAgICAgICAgICAgIC VsYTWjFHZhBOHwAMHlDCScGXJtMRZgYCHqAOMnFEIlCSEaIDOvLUEuYWMkHSBhMQMaICNxWS5BBCNfDZ AgICAgICAgICAgICAgICAgICAgICAgICAgICAgICAgICAgICAgICAgICAgICAgICAgICAgICAgICAgIC AgICAgICAgICAgICAgICAgICAgICAgICAgICAgICAg HPVxXX5IRYMsCGFnWPWpMXWlOIHtMDFbXFSyKOPcWMTiVRFuWBGzFKWcFTMzSPPbKOFyWRCfXTElVZLp DJKcXJLzYCVaQVPiLRKlIBAdPNTyNNRdJSNcUGTlMPUnNACgURDvWFInGVSbFY8LHR96wNFdb5T4NHWy CN7thgx/Uc2KCRcenzOkeIZxQD9OUyUpRR2mov6TJm CxQP4xkf6ARRpRYqZkT7J1jWHoVSNeQCPZRlPbI95fAMdkEr58JKykFRUvVjBrNAk8Cb4SUnZtQ3vsRV IeNvW1KRFdXuY6QIUeJnHzECgyYQ9Lp2XomVUmKSz+Zw0QXP1so0PcRUunUfEvWC5zed1OTGjVRvAeT3 EvikS7YBEfPOGhRu5EFJTqSNMieDKiRfYrSEDJVfOx C6HqjE89XMNNQj4+SDqinqZgAfrHKzJkORVoc9XbXEa0KJ1WXWMuXAz4fMHkO72rk6IyeMXbCfomWhU0 dRPbGZ5jTOQez8JqBWNWuAKmoFWrKXUjZM3jWH4dGZPnKDRyRpW8VCDXWT1VUGErZEXjvAMkHEPuLJKX OT2GXDtbROU4MHVdkuGrcXDzRPurVL7EFXAosyKbCm IgMCBSDQo+Oj7HZB0dq8FcFUdnWPQyXO9ioq1WQYsLBcUhT0H4dQNoJ9X7GDwmRs0GVKMeDSVwFxLtES SBVJqhQT8IZV9swuZ6LX6VzMWhIVVeHSIfnLGgFVt8H76zjBHdTTyjLP6SUKT+Sharon+Rv1HKRLgNUVkUU FdDxDtXHVJOaKnP9IbZ1YRy4KhD5ZmVN59lIrtwrZr ZEksMU8LON7eLQBlCUVVMA5QnJNwwA2yduCpWlQiEKUZYsDwO04pxNYaVNOrMAVxQNWtFi5IYNRzB0Bk doXdrSrgliAtZDVnPWNZGY7WKMhrrfOcfLZoyEapAJ59kIozUA8KOf4QFuNsZJ4mbi3PaGLaCb4YSTRf US6AFGPtBLTpFSGwIHI9UTQqUmBwIBehSHOyOHEnTN G9HLGsACAtKF3VWsFgQOVkTCG7YZFuRMXxEMIrtr8ZBXYwVTYiEeB5JjScBDJqXPXxBJqeQUPiPTQxTC X5IYVfZUCdIL3NUzJjGENsYHH6WIIxHFTwLHXyro8HETTrUANdMqT1HALcFUNbYKMmHBoqDUAkZOI5Yt J4KLQdEWTeQQ0YUrXxFSEzEYC9APhvUTFcNNInwp9P WHPcACZjAjP2HsAtJTDxEJEkHRchUTHfISO8TOfgQYRnDZAqLJ2WNhSoVGOqFOE0TUAiKRCqPAWhtl8E NMUaXRMoBxmdAnYlOCWxDUQoGGwzCIBbZGK3RYA9ZZCoEYZaLE6VBzTtPWBaPChgZBPdUIFjRLWmmh4I GMQaTECyNRX0QuJmSBBaEXToYZekLTOwZAN2FhE9WD OyNGXiYQ8DDxKwHQXdYTr9XYVrSKZfJQXtrd6QZZZdNCBuRDOwUhUiHCUtZYKsPQcxACHzXUOrKxN0ZR CfELQtYO2JGnArCPIaCCA1CESvZEVfSERlaw1ELUBrMFDtRWDzVvJsJRWqEPHeXDvzOKFrZRVhLtc9OO XyLMFhAG0VFqCgFPCiPJF7KOjtMCUrTJQznu6RYMJa GGGmJmw9UhLeLQGcVDIgGCb1ugEocGQpDZx9CX5CP2LezfFlViFRAh9Ih229ADY2MNSjLo4OV5fdLr2p NZVpLZCLLl9BNHk6QfS6OOCrRqFnFWUzOJm9DAo9ThCgSmgrAAdaTxseHNT+IDwyNDZhMWNmMTNlYjJk PXvyWOm2KPIhTMYhD1EuL6XzKU5gWBZSAs5+DXhdzRDwtUhoYVBFSdOyIIBlKCozPXKNRm7Q ID Date Data Source [id number] 09/19/2020 08:34:13 AM EDT [facility] Name Value Range Interpretation Code Description Data Catrachita rce(s) Supporting Document(s) [facility] DIWYSf3vXyLMOuFts7WuZuRqIDHkAD1mzco1A1K1cOUmF3VwmIZmx5zmE7SlC1VnUMSrGYTBIH9BsETb jb2 [file] YAmGEyKe8IgQQDHHXBbctZXSZGHSapxiKNJGBHqFXi Dat7TUqDfKGfWqz7BDuPnPEzDhe1KJjWiTUgNbc6OErHyUFrEeyFWC3mIIBn0CDQT04vCXEm/Km0FRbj MHcPiaCTiJILMi51ahCSjOUDFc2RxNXBRVXDDL5TkWKOGQZJAR9K+0FuQgX6TfNaHUIA1TFMS9ZxLVmJ QRshBNlEds5IAbfbw+7N/RsAcg6F+gGFpbPm2MpKoO jUDMyk1L9dxUPI5dTUe+XeP7PWionlQyvYdBEpHg/dmY8dIKIpn0RksMQXEepbULfiYjgRJyIsdVvOte 4IZaEwAQeuXbuKl2BnryfotU49yEeCjd1KaM9x3MVZ+8KDAlg5RwuUgkHPfLpHD1R5PjsIR9StI8XEZq VZaK4wR23iUDF0Lh2h9sS21xDhK7zwAsLcGxoYkIYh Ll+WPXntK4BqJMB9WrWIPQWYmCKeQa0GdUVPrgXMbtxClsUUNQrxSr9f5uOsHufjX8yj0a266QgVm491 MCB8nz727/sezyHWfPi68t75vdJjK8gT6TEx7kHdBtRWzxV1W+HU9d8J9YVqzn9oX6/ksEKqZD53oqJY aAVy2b45g8hcd2rupt9B4T7ZK250C24L0eQJ7vfBge DxzjKQ7/+GF/WwXf25GD2qpdNc+aCinHwZN0Aian+OllxGKiwdS9Z+3xQRFuOYoMhZLBVpqfMUR8ch8i BFM5ZDRlzzm3562v/MM+FfLX7uR8X0B7w6G3kne2Eqk2NHkZFDrFiKI+JEgkgQucfCFiEpTxEpIpMIdb XdoRdxOcYPzQMxGvh0CVlJbZKlApp9NHcVfMRlJpwp +PP3x8gDgZsfv5e1exg43b+Ysx84+oFdKQArvMNXtCmt3D61ScJ263eZ/98uCcGODND7IrFMeffeNqVG IwA4C32Hxc6sz5vRgsNzhIaasWkqFZVQTKbqKfUBPTQyWLcBF5lOGV/cCtFRg03TqaPTDuTWbH/ZcvkT LvHOKm9IQB/oLyUej3M/kMDVFC7G7bcpWlomAFAdJx DGGGxvlOT8ayzi907hI1W7FO18xz3ip82xEYNDiZ3I2YYYw/2DBzla4dUNK/py7/wiiMy9c/+O2Ny7/X ua268ms1JA255/W4zvmr6l9RRphxqtxj72NPRt074+rQgz1ZSsj1e/Ie44U8/iq53QUve3q/0kq2Ai7B /SSMglkyL4OzcIhU/iNlDmzgU09+y2Ex/q9aDE9LeS qYZrRrkG5pcE46e1qQ3aEluRXv9TqBZTKIFEes73KXVwyz/QV0o95chu5AF9cr65MXj22fI70c9oO+7c h7q64wp3C41282mK0Mr+1w0gnD0+7ytv0TvyJ6o59fGC02jOd/CnK/rep6hV5ZWxX9bl2VpEhTPW+Yariel SUY0Q60DGnvi3il7Rjvk6wtR8tD8ZU73mG86g+SC/0 ntwihjLOv1RNv2TJ/7WDYRRIII/jO54D+LXcSEi5RB0mBU/Hd2+hOd/uEdG5UoV6Q6O15+QXt7JK2pH5 W1JpXqaQJ/1AhMeqkBLTRYwNwNaGkHXeOve3E8qsulFyHGGOCkRk0D4kTTY2NApVwcGs8AO7QwkJRJPL JE2A8G+9RvMjS4T7Z/QXWRBi3m4zNlZ4SUTWUkBbrX OjDqwGAjucFGcksiWJfmhviCWxGZRCZac/XOnl38IfKctSA9gAmv4sJbBAMryl04tz42ta0jPqIgpCbQ rF6WjvYGs+o5Ymp5uE0/yiX9mdF5zmF8iujQprHi1vel+FBtoorwgj2CYxXcfHZi6hVPkR4BGidey8fw jL1sxhBhaqB/gi9/4kMQESJCRIkokUFkEKEOkjpI/G kveP5upxWJWNNDZqanOYEOkJDO6/q1j+TcisS380gD6xF0IoaK1ozCuqLQ2aGJ5cgK79qzr9WwxzdLy+ SZC3aAQVgXzOTQONf/8mdXHNHpkEUxO4rKRXDEHVjMUfmOyoVhvnCVKDhG/gOf8B/7KXQDiC33EOe9Qi cRy5/7OAz6qUI/wEv0C4E3LH2YZN/N7/Tnsb8Z13ay 2rppdqn1+/DJE0bW6RmrgdY6Sp0qp/OmdNQ1g+Ni1tg3mgymHY2qotT9ZHb0Y7j1llmkrMxXfPqzj6A6 U6o2anzddZsbyMzrh+X2Q5585mxuplyjnWvfa+Y1Y6532qzqdfiBzChjx4F1Y7594edlqkgDaYcgw76b t3nuNs/h6gmrRGzh330h1I4mh38xh2umbo+7GvtYcK u6Rue40/p8q86kgF36/Y8/u/d89xpuc+rG29IT47Dd+AK+gH8/cA5p139w3VbY4Nw3thPA0Yv4Kb0NM+ An+Al+iA51RvAO8OSqZUob6wzMqVsn4mTkvzVN+TT9tMdOHnZhDz5CjHd4JaOw1HRRl4VENd4N4cJ3L/ B+L62ziPfwqXaO1sH7V+ZqyDfB7iS8O+Afu2wHr57R E/wEH/LGsGxf22F6WvnV4yocLmvfiIbjv0Ppl4hFiS0gXpI1sWkQ7dRiMZ6GdVhVxU/Bn+DPw/frwjH4 Hg2Rq5sVt9u8NFDRQ/FO5IcbpjRgbDsmzBqvc7Dss5qLeJ2iKvQScVmNWoOgJR8E3OY4Kg2BA/IG5A3I Q1U8BP2Z4sR8QAgN/QzQnaL7EcFcP/050Z8T/TnRnx McQjVMnVxIFyZcUr0JkLh5R/Ro7U0Lt9K11H4F6dtwlgGkg/D1q+r1t4XNpIF6yHyZcnQmUi5IwTP9C/ WD5G3DV0L9RZ3U5km2T+E5J/hf6DxdtPV0Xe2TbZmtpHH8Mo3OrJrtyDT2Ag2JuFvvgGS4Dg9YeCpa59 T7nXi/86xkrJ8/vvcKPccCvoB/7F02TR8AD/wBvqEd AudTsgZdhYaTSxGu4IekGvAghK/pH3DqZvjofW6lzQ5AMCbYx2X/wD/vV+T5CyDJ08NWfBSzZ9HG8Wve UYcR4WR35dqxNX/wBXwBH+8C7U6D49vlrgPxDbYCpWrVS/F+Qb9P4F7P24bjb8QjbanTiPjfAhATA18M 1xzq9FkeY3vKi8h/6/iWt/z8mr7kI4r8bLphkcxMn4 q9PhYnau+/4A6PY7j8hB6P/IO0fbMB7333bsiqOqQ1OHv+7IR8Za2k90t3sPSoY9tXpvtm4YiX07ASL1 ZD7W/3SuY/8MGkQAQf4Or2VA9NY+AX+Is8wDU6zypkdKD16N7++Dm+5d3Ji/2cI13QtV/T37rPh8m74L 9kDJjCqcF39aqja3a4Bpj/b82l4lO/wS/wz/dIfaL9 ch7a8aB85oumjG6U9nK3wyTA51O/788eU3fW0Zg3QfEoHkfnqbvnnDBiK7JX7Xz0Rk/jNzB+u560phu8 3WD90Mq2UOnuA8fe+1lzgD+JCvo11oqK1aOvzTQ64Pw40cU9nH/HPY92GqAvbWwB34hVR49wS33Oxgky ao9UermEvykfxg/28UveK/z9yZ6DA7/60vmPL1/7ap 2wv4jeIYv8zqYnWM/v8gTeuc65e3RGAt7WodDI1gSi6vJ3JA5WT074OenJxcDy/O9R82IjskXVeoM7bc wr7+Xv7jdx69J8DSR+J+sdfchmKz1e1qGqH6tivuj7xIE4Vj3l4yXdw4pgDNfWIhTcvUwaa4jzDdKWz2 A/wD/eprHsq+L2ptejf/xujA6E7IcsqfD8eoK3At0N fx6+cRH57VG/cLaZkkp3IXQD4Ph9J0nF39Q05E44OL/yCuSVBL/AL/An+Ge+Egwj29Lhfjpe8Lh8Z74e vD1S2RrX+4jeoI14U8F7RtgtLV/t46c/Hb23vKz6ws4Q/AL/9Oeh6M/Lvhp9/IzrseyreyyPZV/1sYKv 4I9n/hnLvupjA9/Ad/TmxWP0UnmFx/5835G6L1/41z q+5d3H4E/w5+Hf9tU1+/ien/M+vufnfQy+PvP5vR/mOR7gD/ANfAPf7/l/tel+jgP8AD/BT/Uw6i2Xm3 6OJ/jz8G/7qq+78ss1tO5E1+6X5/iWN/rYz/BCc1Tc8Rr7yl6qcb/8eLVp5Md9schgWHpAE4Xbul+QNy KeIQu6d7QXzp7jF8t11SwAq5d2s+xVsi3Pt1w85F6H P04/X/JNPlh6ruilwx/2EwtHgs0o7EgWf93g8ba2Otv6Vp9Se+8R/FcD/quR5//+yPN/f6SD7+AH+Neetu YYdtmLXB30w5EmeRb/KAYE+f//qjzf3/UBb6AL+Ar+Ar+sZ9H+6/WiRVo0Du8cMeefrJ1pAvw/V30eqkp 38L3t/D9nfj+Tnx/J+Sd5//jxLhpPpB5lAy+qzHxfi dp62F7iQR2Eq4KvRgWa/cL/9WA/6pMpsLxg4Lo/N+40fFgjIwlJJhFc8J/iUykFQnI16JX0UR9IM/BL/ AL/Ak+5FXSY1VF5xLSukDGKgs3rgCdMgaoi6WC8mDd+ehB69nbBXx3wd22gg0J7omgMz5/QRrgnR0Xcj buiwote72FkvZ/2Hit6zX+PvfV83/BdOB8w/kGvoMP eWFfmULetq/2EGtIq7HhoV3iy2Fh1jowj935sutIEtZ+gq/gD/Pwmdv329F/HujPA/7I1YJDoSCGQgGO B22gPw/054H+QDTtCi0W1W6B/aaJtzQpFIGVJjLNL5zFCR89xImRqlspk2/VxwF+gJ/gJ/iQF/FBQ3zQ ZK64pLcW3OCZgAV6Rec808j+CgzdJM1d7sjjQRV18W TfCZj8Rgha1svzbcmm9C+O/tz+qz4+sUdvNA8nn9HwPJs7z5UDf/vRdG6Y3PE+FpqI3Y8A/FeG+KAhPm mXWdczaiR8g6R5u/otVN8dzT5u2uSS+KAhPmiJ/wjvi1GeECuNLU5b7L7X3CcArSKosvoPpUsQ+KAhPm nMWmgzu0p5hHD1p+C9DwekQdgeFkyUMvqpd7z4vPF+ fNGzwXvHrg1kxF/N+/iWtxb/dhoNm5laM2/4c53/knf54e+9Hs/ciPfynMwM4W9n3H8m1S6b5Le/5FXt Y/IG2pxiGeo+t628k447hOW2Chm72M/y1mCJ65fIL45xN99y4jA14/BUtsf3trr+R/C3nznfy/y6wBfw DDzSC5Usl/fUr/O73vgDL/OPs84n26/zZV/1OYHzE/ vF6StDW/OVw75y+K8c/iuH/2jZeTxnYywxyg1ns4swm3Nl87UfS+xw9pyKj+XLvurzA+0k+InzC+0U+B P8M1+2Yn7NpNIoDwjCyzb+gn/Gr8N/9Ptx26I+g+/gB9o5/iuH/8r1+KMlld6syN47x5+veFn7QY50I+ /1V/c5WH/ohH792Zxd2c425cE98Ovi1l5v41zpP9M7 IaP98/d+jOfYwb/9G/e+oHszxsNf/mk5iGgO074O1iax12KcFjith/ehU5ajiXlnl3299ifzX/uyr/p4 SC6ImEu7fmvFR/uqj+/32+gt17rzga29b9/LEy6yJmztSkePQ0kQ6U//Xwyos9N8Ew/Al/C0m77orkuu 02KiigQZQ3uRbzq6Ls8pX5NDQjKJQ7zEDbJ9dW2c/v QGFgbeJ3vKiT581I6GT3JFAq5oDI4ILtPtVUdNrxEGAv03agUfHjgdu71hwH8z7uQxAbsXX1gij9PvWa /AF/AxXyE+6In32/HBxUd/TvTnZV/tY/ZVf7p1bnu3ek/0BhkTrmhzRSSg1ocRr/bgd40vhDsCn3sP+A q+gj/DfOTesn811V30IX5//JOLv/yT6/ier2Yf+zm+ /hFhNCn5E/u4wC/wJ/d7S5qTfdV61q/7VK2f04hVsK9/+q575hkJG1Jl6Ay19/pi490X655evhgXl5oU sWtgL57ZG2Hz/vY+9nN8y+urzVve+/vfTRNGlXxoLBhAS0Tr5Q/wDXwD/3qM7vjj4rKp491NHN00da8w +Al+gV/g3/Tn88u50mf+vu2ra/Xtn1NTJ955uuGyGG liKhg1H7jSR4ZGWEhAJkuY070UuM+ctgL6uoCuc8/Pdz/j0VtV180C4cAs++rqYz/GTj915t0DarBZuB /jN/FS16YUAvf51gDAO5/El7bpJo4i/zMzTan0vO5BInLE/An++f7GON/e5Rrx1j7na/YjrjgzBeyk1J zqff3Dz2A+rN8L02YD6KM6oP6N5s35YDbl/Y0xwT// j8LO/6OwC/wT3w87/qkyaJgLt8dN+xh8A9/Up9oqeO5h4nG/nvc9lO1BuE3W0qEJcxdAEhU0BpUvolY7 uoKv4A/wB/j90avoj/uHsZvy2M97kJ/bK1yT46SAVk1H6zAngV5+7Sz7ah+Dr+Ar+LxEqf9rpQsdi5Dj bChBoCFpBkEThOTT2sdrMlmQ+OSdjt0WLtzd6O0Pd+ fNqu9slVrll5KgmZkJrtANHvF3eL/BsHAQb2OkZkRLaA8H8WfT+yrqAl/AF/Bfv2SyxkjGwWfqSB9/C1 Hn/1UEkg7GQjm/Cqy/lmB7mzO4A/ed4J/8QsKmxakBW5AvkiY7bCx/E+L9TuyLzM+ qJ+Xni/X943il3B/oz1l/FPPHumKc/92I3h25Y+AK+ gH/leaqIl4iBj2La2Kp8Yy48okp/VcJ/lVfi/UA0EV2UD7W//suSpbkpmHg4HQ/AV/AV/AH+AN/AP/72 FMgr5/2mBPgB/vm/c9aOxzE9Mu9T/3x/U8/3N/YLV0IQ7IX7TR+YN9F65NLdBnaYhsKn9HO3ye1X3OpW +srWZ4sFRaCoaWzSa4ViEOdX4Z1Iq4W/D/Rn2FcJ+y auLbNxn4U3gbQspkSeSKzX9R9Xi6E/j/X5YTdhQnpKwpHw9GV5XrFa/Ede1L6F727U92o9SOX+mHb8sb uex2i3vvumD9/sOl7+6TMN7lwomc/trOdPP+v504+/Xr6572VY/IwET4cKA5ZL/DexfzAd/Rn+q3S8Xz /f3/RcYWyFL8fgl/ubmMu+ad5b3SFt8zU3H/x5+Mu+ 2sfgC/gC/vp genetic/FOvYz/EAf4C//Tne1eJcjAw+oParw8iGJvi0ZzCtLIx8E5BoWDw/D5b6Qzm2FoNnXhcg TMzPWH+VWH+VifkZ/qtMvN/E+04728Dlf+9R4nsE+fohP2Uw/HecZUsfvUeI12VX02epSHr8ccav3qu9 t4crl8XCnk17//jrso6/LrG+PjlRJrboOhj0Vtqiti 14EdlfP5ju4S4/QrfMznM4HyTs98HUC3wjRc/UDIrkw4ELdP/vSNPl7VI2/Ff7+KJepc1M7q/fZVA3jY e+y2gDZyxY05qmBh3duTivdpTb4zf4RcV+eavJt6So+7mu45+s6/li7nlvx94L81//yigW9Asz7+Cf91 vX6c8F+4zjFvClo7E6PyDk1ovzx7QzYSwPbSP05zg/ Kjn/F0oU5w/wB/pTTyHCzGfBXaW7NH/yyokvFNZfFdZflUzwIS/XK3Ju3Bd89utO+qvC+qtSBX+A tG+7h9Ol8RG8Zv7a2EuSkMKsnlc3WqC/AiFbBfeGVS0pCBvET9KR7LyvMoK7zGy0Kr9Pg/i3qytakSi+ 4vxEOwV+gT/BP9/mzrS7SpeOC/AF/PL0RWlv8zKP85 VfyTr/lvda/UdzMzYz0cg9vy7G11kdtz0o9+OHD2Mb8X2/5N3zrnB+fR/79t+Wn/9Z0qek09TXYsdhbN fwB/j3/Sk8wQmdz1/H4N/yxjp/+Z/GmHBq8Og5Ao7he532j2y1+KznLz/r+Wutb9/A1Gj0Tp6Lv+AP8A r8ja0nhx/3DcLTsNvIBxFrsN6cZ66p2oS+hrwBeQPy GpSJqJx3k5p0I7PZ+Aq+gj/Ws8r123L0rn5i8cS7atZbc/6Z6M+J/ewrjfXAxq76kknqm/Yx+TS8nytF qrrKO5xrSanVY6wm/CvMDu0O6pi/VHX+Rgs1F0KTj+u259avKXR0SIA8kz1//arzf7+Is6VVo1PVu6JQ 6jH97aEeC6YOy98u5kd38az8w90I+WI2Cb8Vs+CfeH chP0P1/vS3e8U4T/zNw9QwpAVV/ol3z+vE9+j02rMF77oHtriDgkIfOK/OF7hvvZ71tu6D8txywsTJ/M DlYwgK4Zf2Tr+GE6ffbx6qoqwQ+yrT7l5X17zh6zjURe86wuu/Uwx8A9/Bd/AD/AAf8mL/4MT+wYn9gx P+qwn/1YT/asJ/NeG/mvBfTfivJvxXE/6rCf/VhP9q bx299j+a8F9N+K8m/DeE876y1r9A9S+iicdDdg2LI/sHJ+oeIrcxdkKMelA4N9V+0jbZIcYtlKaQzei5 aXqqg3eR1v7Ujq/4nVh/NUeBX+CC7pC58xtL1q0yPE/igxP+qwn/1YT/asJ/NeG/mmbg+3lOO/tDpwX4 XU3IcuBo/nnkkuB7Ot/09wVkRf2U1T+xvn0i/9V0jF /H+EX+qwn/1YT/iak6D1b2R+S/msh/NZH/ajrkdciL/GiJ722m6gjYfR+fWH81A/WtrP7WO48/hRl4v4 H3G3i/BxS82KX+A/05HPzA+AB6OO8T5xE1DlDccUzMqWLpHt/ZHV7HjjpDE+uvJvYPzjzrzSbWt0+sb5 9Y3z6R/2oi/9VE/quJ/XbX59cp2ecB3GkBiqhpK/sH J/YPTuwfnNg/OLF/cGL/4MT+tCl1y1BT+AN8A9/Ad/Ad/AA/wE/wE3zIC//KVHcexDna3pFrgpyxxft9 Tv4zkZY7Ra4FuqM/cGL/4MT+wQn/1cT+pTn6yeI5SzyAv6/wR1ntiwxynuf06xFw0ikPO7KSBXbp1tv/ Z4h0cMPY4PhnaLmpnxtOnExEOiHgDqwpWoaoSzFXOF SXRJzqC7IKwLdSTKb6qCN3vErJIiJ3CuGWmYEV3GetlSozOVqXuqQeL2hIo9MMM6mFe0laABZDoVD9ae Q2Mkz6SBsxr+09n2G4ELkji+64ugFla+OmhfqnBghVyFo2DLFAyhns1RRfvV1H4HoWHw550kpxEiVxfr 6amq7P24WyBSqWssFiRPmRKBF9VRlauFwwi1l3UY0C fEjA4ODUc+CYai/NYQDxYO4YzwQmCbDZgQXOTvs/F2ESMBUKkKnwBjQTgNLhexo4lu0g6X+M/EDId4ts 7JfqGR0HMqoRpZmqwEhzb7EwPJ6nTsb8uos0JZmOCJMRTULGPxuqmop3eRz2XMPFveNhOQDlo3ZvgS7p p42FVLA1na0PqCt3qQmFN2SCRs60M6AP69ryppg231 QKUEYTL+Px8jiG8eg8ZJaNlIJxrTdr7aJ54vLyFwL2EBDpvVlEooj/BS1PrebzN1mpcapAKovPBQXh2n PqhdQwDCbLUWa6Ati3Xkthv86YjG+H60DC9QaGJ9a0FFuMCJjvmTIY9fLjRQW5ARGsxBUgN1ZgHwYT6W K54zoLGG7vdBqyRTT4DUrRCIuEua3VWrciaa1LuCAS woCTFtyCJtHM1yJLn74PDGQFqB8vY7/vO7OORHdMqdlP6aWKjAtJRL12P0rUR1QcshV5oQ7Ghg5ZmFuO UKQTsR4ltcEk0j+AIIWPcT3ceEb5XIJSDnesKFIDHXUrS9K7cEZWYKvhcZ4OcU1Xo2xCuMiSPQwOxRNK f988Q8b4Xt2QYNtSDiTEWUTQXi5Y966s3mVlEN5WSD LIWawina1+C8EBTKQSYmYxmhzB2t+PF2P2ZZY/uPr4l2stIc3OgJkMPPciV7+HqAC1kvEydxov6xm/RB CoQmLVRIVPBY5byTLPDFqhKLZrPv1edkj/hCEgCm7FbadGBqjMhebgYnHzfM+IIlJEqINBHdjZqPQiHA E7PLVKWGvbeY3kTUrQUPDlkAFtXwMH2eNLk47Hpvvv UnFwii2SmsWEiq7TgNBiZdLPcyPVqQpHUqMcf7Ej/sGl9199lmjff3qXlQARSa/9JoJIEEkiydbwf+GT 7PefpL//TOO+9MAG+MAN+m1OLPWINyyLW6Yv9+iL9ZhoY/nvJuPcvmYXGVQpGmgOSY86z1pQJVnU3KDRf [file] 799edf/ngt2f3qj3894lrlE1y8++Knv835+N3nv/qJ VT019hJgR4/92ghz9uR3f2++/u13b//w7edf/v6Lz7/98qvP/5tzXx/h26mstLruz0//4lndCzm8/c37 Q/zq7cMX//IwzM8ixz/59YIpD4/8+kinga/vhy7d/+ukaE53GsU4ce28YdVtz2Vl/svRV2hUi5dkh4h86 6p++/bdw8iBl3ia4H126+df/1NUcFy5/7u0fv/nt11 /+N1e+zIPXlV/85c///se//ilGj173e//99rs//ulP3//1rz98/6e/e/vy+z//8Yc/up0r20o979++/e XPb/YLrV/xi7XhCuqiCC8w//q/aPPeVHS/T//xx1/6I742Ph3v0yp57++Hk2oskSr273n/B+htVj/o/P hz49c62lHp65h44fyospdj/3kBo1i6/TJ0eAI1yH/e e+aa4LQ41fIqMle1+8O///YtwQs6Phz2n9qr29//3b92w20/6vefSDs+ueoo+L4dm7Eyi7L54z03/PS9 f/kPkFenYGdlI0Grn7Ii3/3w5//8+7e/fv+fP3zS+oux030cf4bh2CYi3j97mMV/0/oGf/Pt2x///J8/ /PX/+P9Ie9pg3md2+eLlz7y3kph1pz388+/e/u1/vT /7H//e3295k0kZ+1bpu3qA++ePv/jnj3/hz86GWo8mb57eT2+0fj/imcbrwvwGnvu6lodi/k5RklTIAd 4n0ujrms9wyb++ff///vAf/3XkPO/tkp9/88XHn9+L5P/1b96/A//7r//1vi28m2+Hf/zhx+//9Mkbnp /gX3z/v/7w/X/88fs//6SFrevwP/4TvMR81B/+8uNn cib9hxO6OV/6yx8+p17q2gfALI5heO/84Q//15//+If3B/gv7Vuhwba7t7/fp+PPf3L+HX3eeh4b//ne s/7ts/96x/b1z5j5lv1feIjNI+56Ef//p7z+mkif9tp6g+//1r8w4tpOv3/eE84zoSlrAaqrIVbuO5zo h/fnpsqGG801yx5w06+b1pmfv/n2yw/fvg/s5/f5F1 +6m2pw390tmIbUvuwy/I8WHV016wwbmuWzsXHnZJ6ZGW2ie1NzTsG8KWCtr4WaTEsfTLc3aBHtWZsimb Aiu7NuuwghH3Hgr0EsVaVqKOWlUuBiBmr7GTCkLsN0xRNdTdRgMPRgB5AfSBMiUkG9DuQvJKZQOZ0HJH JlbnQgMiAwIFI+XsLqMF9gjgfwXLSdx9KjSGtbZYif NDEhV5N1qHeaYBPeA6QdaE60LUCwX1YfdhK6JDB3YSXnJjNnHQRilPMwBUIyJHN+OaNnCE5gpcicFQRw s6XaPFxyZIG9cD5sICeEGWNJOSzDNEnkHiP4e92iakKTJZLaGAStJG6NbhWrhCtethZluZMzEXY2KnPr BVI5KdcaUXA4PZWXDVKrQXZlZPOdWUOoC5OwfTllTQ wNJQUZCXbHRGppHtXvh4D2MOBjubGAVIQEE68hTTsPKcSHADytJRL5KTSiZCaqA8G4TwwzR8ZnKL9UF7 VcJOLfMHIPEIKhkfEiIK5DraDeqE4ySTlOSRGTYCfJBJjkNoC2l73rfkVMQZTjTSMrAFyaCSRpOWEdIB TzCEXmHUPzSHIaDJJwIM3KI1OaLKGlVXIBTML9o6Ly CQQzfrzmxwsfJx2tolLcYsw+LcsvRZUfq2AjVHquJ1H0nDTxL9LgY6LqZA0SiTDgATjhWZWxBYOgJSRq W878xeOnBH7+MR9gk8WcTsuxJFPVBEJaMDCpUZYpJTO7UkWvTTCrUFMfHIHzYtH0IpZnKrDOMGIfSQY5 SPrdQiVkSBPvHSTyKVdzMYNmTAXgGYa4HCBzBZBbPY 1zIeCwHCRpNlK3WiFwGGWqPDUmakVUHVWtCMIgJTSqKGJ3QDXyEMNpLRakYIRvHQBiPPJ0XESsOBLlYT 4bSpYkELJnBZSzSfxcDRAaMKDawuKCUEOiPBFnZGC8IfYuKMKaSRUxASzeHAYtRXOpSnh1IIUpRLNmZR 8qNwGaCCFzSJJ9FSqjHAJbVTGyaqKRDFUkIXOxCPMp RyRkUXCaARItZRkoIVNnLVUbRxSgHVTrDBSxIH0iWlYrGBLpIPF9GSVeCLMyMMNjxhUNWLUgFJMgPEn2 YHTgUIAwGOXdGYyrRJJjXOLmIBQ1AZGjQFJrXO5xKlOxAJKqTLUqTJCcIDGiMQQwahBCPPGwPFUwPHO1 VEUoUFGvRZYwCAivGTKsOJOkVbk8ELXyAVKiQN3iCx LiZNHcFNX8ACJuFPAxLUFjznSJAQDaFRD4DMM9MhCcQQNvQWIwVXovWXHoKGKiMoZ5HWQtGTAmAA0tEp MoPHEnWKH0KiSpARIyGCZkrjICZEXtELKnRXA1BfPuBAHgNHWdJQvsKKTcBVNlSMSwXAB0KTJ9EMUmHl ZxIUcwEBBROSuBQ4TpxoGjPfAES5olEv0iTzHmWZLR S4Eas7MfFLKoOOPKAf4+SgS6JME2rEGrInt8JLf1NZikYEVFHr== ID Date Data Source [id number] 09/19/2020 08:33:57 AM EDT [facility] Name Value Range Interpretation Code Description Data Catrachita rce(s) Supporting Document(s) [facility] ZFMXOu1bOhRGWiOeq1QsZhNgGJJtAD5auxj6I4P8yXVkS0CvqUGwi2wjY9XqU2KbBYRlKAYXLG3OdPJp jb2 [file] machine skiver+4dhPaHRmJ5FtJsgA2eV/sDni5mdo+RMax0IAwx [file] 7cQdj+[id number] 3Gmjw5dsUxIFKqWdh7852DcamVv0p333WckyE64+OlyfnJWOZZvj90MmbczupRC5Q7qA4XDgDPXdvpLa sFikaUsUCNQp8o8nfljWCFdYqcCIdSGAGcM0t6q247cgOMv20HWPvHvKpvkQtwmrD1PnvNHf1OMDFTtS Z2J7dLucGQkMtltfeWjrQOb5LBk/KHOq3JFp8Pg7RO n7HYn1BFVOQiIBm3lKCrqHq2TmErJTTd6jdh/WtLluOl92RY3ze+NLUPwXOTY1bEwNIkOJSV7USYo+[place] KooEwFXfnCZnXg0O6HpWmCyTvkZe4DDVKI/lCkGm/QwyhVXseHe8U3yMc5ZMxInfskyleHhepOGtJ/mx NVQE2COAMFYG8HQhIphSs6VsGP9d19XrHRFg5cTKH4 iWsaqvJ3kTV6vC5t81ciw5oaf4oeltiTu6Z5RklATnpbgdBOnRjDR7LYfHJd6X+LFIhx+J4YgzVvBusW MEODZuY7QnUkXW3GUsl+FZIvW7idF+UeHHIgo/BlcuOX5AqvVAiEo8tLpWWQSNWzmZEswC7rNQioSiwE FVtGuAKF8rQqwFcflEEOVinCjHJLVftZcJpQUBSvfj mSQzyGAPhsKPRRR+FUNzGcOMZ7cr/YfL4npwHn6DNyrXDoDRDYpERMhiQZihNauTZZrhe5HWMhtmDlwk OoAfi+v5MWxWRhMsk+iooDhAIDANt9gdcLnTHTBFqlPsTdeXHglQqq7w6HkLhlQ4hdwBnLOZWy4vtR9E +VyNeeohrEF0cDH6ohS5XNhXMRsfKHesXQktT1nJwH iDu3nsmWuykTejlPgW3YG82hvBW/BjEeX+jF8Q3BKPJWg0APUTGOfjr1IEZcoZ3/TQdtPkswDLkGyx1v JrD6zPKquQlJol0k82eUm4w8duZJOUXfIuuUOBYBynLPpMxCNa/kTl/kTl/kTl/sQdj+JQyOvADeg37M enpPd4LOXAKZeBPIC5LKPPQDxTBMXcwBPUEMuTTz8B ZrBQZLCuFS22MTglCD8q10lLP5fiPXMMDY+JtVharS5KLBUIp7LhaHGzV0zlXp0OFljsKpEUda7LiiYW FY/jDkDFtVLngUjIBRNNqrq3FLkYIDRXilBWSwHriKZo/xXIv4YDfTMtxYMXeZcHItnLDDLBy3izw0wz r5rza9hhvXwyeFPBYHI1nfMnIAKu+sBKa5Bx9C4Eao cwptkeSBdZBl5A6vzuGAT/vkf8xqLtIg5VecRQJC/sKL2SOGdzsc4Q3JoPP9Y8RJVBmb1fL5V/84rHcg K5A989ERnbnuZy8z+AKx7L/gYy7EeFnRaDv+Sm5K3WAy8A2bPy8S2q3L7i3V+44rHcovHvvOKxXCHJJE sbvE+fGGPrUjoOWO81wqGE2HDb5PwYw/vHLJ7F4sRv hFZhEBJYSQb3J363GInFFzVjgZGVVLgIOlyK6KOPjfAClI5k+K8IsKNh7a7VVRRhASxEynjcYmdHCWl6 TuGVPCsYswSdL9PrDog+CeGQUetHPnYDLUo3AvpMH0WLTcISKjABDW8YoHPp7vwFDe8biVzlplcql1LL rIrzcInoB8GuoUZjAX8++bGcPNivvOKxnDxrPvEIDf JdaaptlrTxoENulAVzJCBHaT9z4svqOjnK04ESqpGcd/PXv8VRrrxUUn0AMeF7MQT2KWveNQSU5RT20s GqTr44jPLXPcLuMlQML9QtYM1hA9z9WRbuh7N+hkYPsCAlHMhEKyOtkIGpHUsnb7ku35XmI07PISWL1K VXY6hE3S7j+T4RyplM37FnS80P+Z5GmbIpK8vec3ZS UCnBjoL7RTbS1oMHLioTiIMgb4/TS9iHv2IO11OwJmwtL4DmQFnNU9KmYbkLU3OHb6HleALqJjhVAKcF GubCz8QUAw6D8OTl3NbrQO1HenXQT7gPQhwUCvBD7yZxhREYjma832VWTERj56/4wFls63rocvt30r4x //m49aCXt9/2629ra5mvk5/RvcM1ps/tw3ff/vrr// I08Tadz/Htx3/UiuVP57homn6+mrwRibgWwKvG4aW7pmOCFkpxl5+6sDPg1bv62uCx3mh8e4/moZ8w00 79r2+//z0206216cNfrn9+8eBcK403++3XX/2w7lojvyeag/7s4ze/+vDFb9/n4c878S+/+/Lrj2/ffP zumy8//u7DVz+j0WveoOT8giV6Etg04vLb4kjxa/vt 2y+++fDFv37+9Jsbgjuqn1s66OW+Xfv1r7/+9jcfP//yv375+dt3b//tw+8+vm43olp/fn+vh37e7A+Q vvVQ8g5083l23Nx/fr/Vx8//r2/fEwehj9binjqCLu5/kedoqdVE4Gax/vzvP/71Tz/84e2//2dj3112 4x+//+tff/j+j//l7Yvv//evA461+7d/bPlv//T2lz +/6w8cei53r2/1/an020ea/SddTJeg+TbsT3/6+i7195Qf9Sc592/1Fuvg2r/d8w315t4NP36we74/fv 32aT3eHYYDps2WoF9z+9dfJ6pw4IqdzK8paCVP87uz0/OXkd2WQ67Hkoyh0991T5PMO3+1yz9qq0suz/ jl27ef//LDV5+8mXnGTuUqJf/mtM3bgiBFgDFlbUfJ E15ZXl5dHzi2BBWxE45qal/8+e///PbX7//+wyelv3+83tZRNq+L/oC6RIVqzurJVg/kb755+/HPf//h r//Al2z5JmeQ79eIo4h/XOZPSz/ky8oh9pwz/tf7s//4lz//lLd4GTzBal0JFW7uywg7c0v2e43g9Us0 1fy5av+r6IvF94hK2CO+8vCXUyp+GhUZ6vvci3idem aIr812+/7//eFv/0tv6Fa9zB/9+xDjyvy9jE/xM48C2r/x13/4d41ucl3Py/3hT9//9JG3KZ9yY//+f/ 3++7/9+H4zz5XL0dYjje6aq0n++ctf/vTZL3v+5IJToa/+2gbUcEYb7XZsujh/8d/98Pv/+ecff//+AJ +5sk5Ii115/Vs4TC5ql+tnbI11/d/+/t6y/vDZb/72 H7//nz9+//e//vj7t1/98Icff//9H98+/+MP3//1+z///of//VgoUx9l++ehuF2c8QxwNE3kqC//S14/ RARSb2j9sji/09o09ryPi5/48CBx5jnMOR++Rbe1CGz5+J5+/55+/QR573ZwBXn+WtlV7FkdkLHto2/e Zugle/4XbJc147//8jc3f85cII/tV2tXv/0tMkE5IU rrynPtwLYpYT0GKO1sy9HmCmJ9LMPyd6XnOEzeIOr1tQLrWEdjggNsq0JdhzylD8Eaj3RuIxMgAXIuRc RwDkb1EQPiZaM5mJVfAaOpPBYeD2AgCZSbXzN3FoDsCRXDCE9BEATxidYiJmTuRGX+QfKkCV4pmerwKS Axx1IzPPgxVTsvRWVwR8N9pGbkBPCiG2LfuV22IHAp X5LuicY1FZH5ESBsThDoXCAffALfFKTeSWQ+WjQbIF9cgcalGKWpx9BcAQbdUWO3bN0pKDyWOXBLUWxC HZvxHgJ1x77mpcADVHWaHKXtYV5PdaYhoJpaouJaaWJvNMH0WhDhQDH7ObhsHYG3ZDDLYBRlLSQkTIYq JIYmC4NevMtoYFvPQDEMRIlOKQgpHoBmd9N2CLTqdi PRXOVSA33dSXkYDgCQLZltEEF2VDCmUIqwT5C5FduvS7OkVJ3GO7RbKGPxPOXGQXOevvEtSU4HwvSzyP 6gCOtLLUMJFZqIFRhaYfP4x81zfnABWZFpOYDpYElrPRXqSLOnDZUpCYOvHQKmLJZjAQUcAN5WD4OjUA WaVATLRZC2r7UpMAZwzrzngyzkDp2rkjJwSyc+Pgox IRKaz7PtMYomV4W2gXFjD3TwU1ZeQZ6OzMEcDBmwCWEqKDTfNUFjW860lmEnBB6+GD9ar5EwQracYQGO GREvWEVsHYCwACC2VyRnUHTcLLVuUSIvMdD6RgAkNuGUWICoFTI2HOgsAZLmWTCvIWZrSUxkNUKaQNAh OXx3CQChYYTqVW8bZyWtLQBcYqT2KGNzXAHvKGSuax KHCYOzZZZkFZCkKXF0JCFiLRTpXEzkRZUxHFMxHHR8ASZhDZCrXG9yWkPsOFZuFCBtCrmdVJOqASTxur WAKXJrTWVpZMM7AwEzBBHrZQLoPDivGDYiSPBtJsq5GSGsQFIbPP7nOjVvKZRmWYG6PNfpCNMlOYWbep AKMDAwMDAwMDUyMyAwMDAwMCBuIAowMDAwMDAwNjQx SXOlHIRvRF8vUwXsFOZmHCS9HRAwOTHqNAMycwWEDRWnSQKoOJs1YUIgCXJxLBQmTKaeEAZaKGTzNUO2 JVQaRFMlCH1kAxSqZKSbOTZyMAQnJTYqFNZlubRXZYCkKFZdLKF5DWQkJGSqRGTaQUyiJYVgEVFmSnf6 QLLvKXBsIU7aSmYzOSXkEJR5REGqJFAkOIZpvaLNCR OiNTA8HAU8DPRcOHYxDJTeUYtaACMcIINkVtA0NSTaLGItQD6yXrUfBKQoXBA5PoEeVBZcMEOfvyCGPP HqPUPbALR9JgPgTFNyAZOuBHnuYXJiLCKlYRRlTAY9DTP9DDBhSaWzLWkbHUROWLySX3QfhcSvMdPHX8 snTz5vEzUoORAMV4Abj3TgIQGuBSAFKz4+VbN8TAC6aIGqIcl7QXb7XptjSJTEPo== ID Date Data Source [id number] 09/19/2020 06:28:13 AM EDT [facility] Name Value Range Interpretation Code Description Data Catrachita rce(s) Supporting Document(s) History and Physical [facility] SXPLCs6mMpSGIgTo21/HRFvmDOPzj1TzTDybHDb9CFqiNFUzW7XbTKZ2aY1lFGI9HJyXLeWxFjCdFGY6 lbm [file] QhXY5AKi2XRgK0LPY7lCOdWd2MWtNeKqQNClPzBF3HLPl= ID Date Data Source [id number] 09/18/2020 06:19:14 PM EDT [facility] Name Value Range Interpretation Code Description Data Catrachita rce(s) Supporting Document(s) Consultation [facility] RCREZq0iMaUYPnIl71/SCBfcTQKrk7UeMExwUMp5TOucLAWoG2KzEOA9zL5eQDQ2MPjAHbKzZnFsVEN4 lbm [file] wUkBowvG9kxXuxNWl4BWfgqBe97xhguHChekAT0WufRrK8jZabsmKMJek9VojZ1tAvtf5QQ9r4y8L/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+xed7Fedfbxfe5zA4pzmyW4YbtUvNjSmbesuTezbi7cEB7GN0P5NIqp+chE7Abw6oy83DvRm+w98d7 [file] ICAgICAgICAgICAgICAgICAgICAgICAgICAgICAgIC EsRDYbDQKeOIIyGC5XYRRxFNXcKDUaZSGwEIRwUSRvSGJoBJXjHHUhYFBrJCYsMRZiDHWbHCUiRRIyFB KuUSRoVUWiMAMtMAFjUGOkGADvXLQkDILiNZSrOMFrRRMoOCHtKHYvRLCeGBNjXBDtAUNrLX3UDFZpIO AgICAgICAgICAgICAgICAgICAgICAgICAgICAgICAg ICAgICAgICAgICAgICAgICAgICAgICAgICAgICAgICAgICAgICAgICAgICAgICAgICAgICAgICAgICAg TZRkHP4KTQVaJUWiSUEfCRBwNACxGURuJLLxCGNeTKUaHFSrVYAtEQZuHPLnLWFsJDLnSOHkMUZsZLOd ICAgICAgICAgICAgICAgICAgICAgICAgICAgICAgIC OkXKAxYTSmDRNgZIEuXG6BMAVzQQLrSVKaHULhHROyLZSiQDRvIQBaUFTnBGWkUBGaDPWaRVRaNFEhJR QiZCXlOHDaPHZtGLEfLQTqLHVzSSNfJWRjCTSjPINlJCXiXJFmDLTsMFIpEUWdJPZsUITbEGTfLO7ZLN AgICAgICAgICAgICAgICAgICAgICAgICAgICAgICAg ICAgICAgICAgICAgICAgICAgICAgICAgICAgICAgICAgICAgICAgICAgICAgICAgICAgICAgICAgICAg IATlENLrLQ6LUKRcDNCrRNIvOXPzQXJcYCNjBNTzGWHzQEPfRZDxRBMnCCSuPVObYCNrNNVhQBInEWCb ICAgICAgICAgICAgICAgICAgICAgICAgICAgICAgIC MsWUZuHZOoRTRpDUEgLAFhCP4WGTZyONExTMFwDIQbDCCjOALrSCKoMSArYWXgZQOwYQFgZIKoQHAbCL AgICAgICAgICAgICAgICAgICAgICAgICAgICAgICAgICAgICAgICAgICAgICAgICAgICAgICAgICAgIA 0KICAgICAgICAgICAgICAgICAgICAgICAgICAgICAg ICAgICAgICAgICAgICAgICAgICAgICAgICAgICAgICAgICAgICAgICAgICAgICAgICAgICAgICAgICAg RKVcSGXjFOJgFC5MJMShKVAqISHhBNPvAFAcUBRwXJZaLNItJEHoBXUeYXAlDIMkGKJwDNOeORYsIXDl ICAgICAgICAgICAgICAgICAgICAgICAgICAgICAgIC IlWUMqNMErVKHkARWcTEZpZAFiRG5PYN67pPAab4D0HUBiTW4fmwr/Wb6SHYlttdIxzTPmES5PZeXjJA 4hic4DKrPmJE9vdg9DHNxPLsJxS4O5zYXcGXStOTZUYeYjP45qCIhlFu00FWecAENbVoRfWBl8Oo2BZj ObH6rqNVQxIlU3CWMpAaZ6AYZsQlN5LKCpTvYfVARv UIWgVKRoKBRQIEO8NTKdImHhQeVjIIZaGRqhDVBMQZPpFLCnMlZhETcpIM2Rz1SrfVR0EKs+Yl6IWN8y c6UwWIh1AQNrSE2enr3YXQyZHxWrJ1MspuA8EJVnBBUdJw4BSGLzRXXtoAZ1ADBhNSNQAzFqE8HdiY14 IDENCj4+DRvzyoFgSciMOhOhGXBiy5KmDZn7WW9IOO FnJPo5uBEjO95nq7ThuNGlUafsDIhocBIrwyGBHVcaqAHtYV6OYBH0XURwNhdiIpQsVBYrDIu5EpIHZA fWHhMlX1Vpv2PzZkW8FKYrIzPcJPvxOFQwZoI2ZC31zZjcAG2GBPPxEALlEV65FVF3RBOpKx1PYd3EGm ElQA7nyj8YKAAtTULfRcuPSav0PVvnTJ6XjDEkC7Ne lNFey1vUSjUgU1QVZSO4UBDdLq1ZUVJgRkVhAYPmWZvyTZ3aDEBwUMVPvGxxdhB8EZ9DIP3xpdTpLL5D PlDsKb2mCp4AMtBwZ5QrA9PgRVYoQFKDYLikVK5XCWobTY2zEB2Of2ZNbRAirU6iif5IXCGmZWQkOwim ie1TDxxmC9C6gJscINMmANscSYOYVWccSI3FIEYzPS A2JAN6KRIqRYEGZvZaK65jVG5CP4Bsz86vVkF9IPTfCnTgSNhxKF02fRfsjsYnbZGpyZwwZS4WMa4+DQ loavJsTxnMYxxyJLVMSlQnYAZAKfQtJMEbEDUiDXEuBhS8CyFyFh8OZNQuKGRcZGXdWqEaQQRiHQCsWC xrYLMpGAT7Jou6PYNoPZRkJV1XFgUxVKCqBJdqDQXf HVQtWBCixc1RTBXsJSWpOVA9IzVjGXOmMLZvCLjyCZLtTHY5WeLfJPCdIXGsCZ8AJrZmBOLpRIC7NHQx HIQpYCSewm9INODxVOVnXSG5DnUzACZuUUAkHXyqSQMpEIY3ROStLUFgVGEvSR9RSbZvYZZiVLZbIOCe QFGnDFClsf6IFAQeXPZyKJG2DFXgAKHeBGZbJTbcOR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 Smoking 09/18/2020 12:00:00 AM EDT Never Smoker completed Never S moker eCW1 ([facility]) Smoking 09/18/2020 12:00:00 AM EDT Never Smoker completed Never S moker eCW1 ([facility]) Smoking 09/18/2020 12:00:00 AM EDT Never Smoker completed Never S moker eCW1 ([facility]) Smoking 09/11/2020 12:00:00 AM EDT Never Smoker completed Never S moker eCW1 ([facility]) Smoking 09/11/2020 12:00:00 AM EDT Never Smoker completed Never S moker eCW1 ([facility]) Smoking 09/11/2020 12:00:00 AM EDT Never Smoker completed Never S moker eCW1 ([facility]) Smoking 09/11/2020 12:00:00 AM EDT Never Smoker completed Never S moker eCW1 ([facility]) Smoking 09/11/2020 12:00:00 AM EDT Never smoker completed Never s moker [facility] Smoking 07/27/2020 12:00:00 AM EST Never Smoker completed Never S moker eCW1 ([facility]) Smoking 07/27/2020 12:00:00 AM EST Never Smoker completed Never S moker eCW1 ([facility]) Smoking 07/27/2020 12:00:00 AM EST Never Smoker completed Never S moker eCW1 ([facility]) Smoking 07/27/2020 12:00:00 AM EST Never Smoker completed Never S moker eCW1 ([facility]) Smoking 07/09/2020 12:00:00 AM EST Never Smoker completed Never S moker eCW1 ([facility]) Smoking 07/09/2020 12:00:00 AM EST Never Smoker completed Never S moker eCW1 ([facility]) Smoking 07/09/2020 12:00:00 AM EST Never Smoker completed Never S moker eCW1 ([facility]) Smoking 05/07/2020 12:00:00 AM EST Never Smoker completed Never S moker eCW1 ([facility]) Smoking 05/07/2020 12:00:00 AM EST Never Smoker completed Never S moker eCW1 ([facility]) Smoking 05/07/2020 12:00:00 AM EST Never Smoker completed Never S moker eCW1 ([facility]) Smoking 05/07/2020 12:00:00 AM EST Never Smoker completed Never S moker eCW1 ([facility]) Smoking 05/07/2020 12:00:00 AM EST Never Smoker completed Never S moker eCW1 ([facility]) Smoking 05/07/2020 12:00:00 AM EST Never Smoker completed Never S moker eCW1 ([facility]) Vital Signs ID Date Data Source UNK Name Value Range Interpretation Code Description Data Source(s) Body mass index (BMI) [Ratio] 38.50 kg/m2 38.50 kg/m2 eCW1 ([facility]) Body weight 231.4 [lb_av] 231.4 [lb_av] eCW1 ([facility]) Body weight 104.96 kg 104.96 kg eCW1 ([facility]) Body height 65 [in_i] 65 [in_i] eCW1 ([facility]) Diastolic blood pressure 82 mm[Hg] 82 mm[Hg] eCW1 ([facility]) Heart rate 89 /min 89 /min eCW1 ([facility]) Respiratory rate 20 /min 20 /min eCW1 ([facility]) Body temperature 99.2 [degF] 99.2 [degF] eCW1 ( [facility]) Systolic blood pressure 124 mm[Hg] 124 mm[Hg] e CW1 ([facility]) Body weight 207 [lb_av] 207 [lb_av] eCW1 ([facility]) Body height 65 [in_i] 65 [in_i] eCW1 ([facility]) Body mass index (BMI) [Ratio] 34.44 kg/m2 34.44 kg/m2 eCW1 ([facility]) Heart rate 88 /min 88 /min eCW1 ([facility]) Respiratory rate 20 /min 20 /min eCW1 ([facility]) Body temperature 97 [degF] 97 [degF] eCW1 ([facility]) Systolic blood pressure 120 mm[Hg] 120 mm[Hg] e CW1 ([facility]) Diastolic blood pressure 84 mm[Hg] 84 mm[Hg] eCW1 ([facility]) Systolic blood pressure 123 mm[Hg] 123 mm[Hg] [facility] Heart rate 64 /min 64 /min [facility] Body temperature 36.[address] [facility] Respiratory rate 17 /min 17 /min [facility] Body height 165.1 cm 165.1 cm [facility] Body weight 94.348 kg 94.348 kg [facility] Body mass index (BMI) [Ratio] 34.61 kg/m2 34.61 kg/m2 [facility] Oxygen saturation in Arterial blood by Pulse oximetry 98 % 98 % [facility] Diastolic blood pressure 79 mm[Hg] 79 mm[Hg] [facility] Body weight 208 [lb_av] 208 [lb_av] eCW1 ([facility]) Body height 65 [in_i] 65 [in_i] eCW1 ([facility]) Body mass index (BMI) [Ratio] 34.61 kg/m2 34.61 kg/m2 eCW1 ([facility]) Heart rate 84 /min 84 /min eCW1 ([facility]) Respiratory rate 18 /min 18 /min eCW1 ([facility]) Body temperature 96.7 [degF] 96.7 [degF] eCW1 ( [facility]) Systolic blood pressure 118 mm[Hg] 118 mm[Hg] e CW1 ([facility]) Diastolic blood pressure 62 mm[Hg] 62 mm[Hg] eCW1 ([facility]) Body weight 215 [lb_av] 215 [lb_av] eCW1 ([facility]) Body height 65 [in_i] 65 [in_i] eCW1 ([facility]) Body mass index (BMI) [Ratio] 35.77 kg/m2 35.77 kg/m2 eCW1 ([facility]) Heart rate 93 /min 93 /min eCW1 ([facility]) Respiratory rate 18 /min 18 /min eCW1 ([facility]) Body temperature 97.9 [degF] 97.9 [degF] eCW1 ( [facility]) Systolic blood pressure 104 mm[Hg] 104 mm[Hg] e CW1 ([facility]) Diastolic blood pressure 68 mm[Hg] 68 mm[Hg] eCW1 ([facility]) Body weight 211 [lb_av] 211 [lb_av] eCW1 ([facility]) Body height 65 [in_i] 65 [in_i] eCW1 ([facility]) Body mass index (BMI) [Ratio] 35.11 kg/m2 35.11 kg/m2 eCW1 ([facility]) Heart rate 105 /min 105 /min eCW1 ([facility]) Respiratory rate 18 /min 18 /min eCW1 ([facility]) Body temperature 98.1 [degF] 98.1 [degF] eCW1 ( [facility]) Systolic blood pressure 118 mm[Hg] 118 mm[Hg] e CW1 ([facility]) Diastolic blood pressure 72 mm[Hg] 72 mm[Hg] eCW1 ([facility]) Body weight 204 [lb_av] 204 [lb_av] eCW1 ([facility]) Body height 65 [in_i] 65 [in_i] eCW1 ([facility]) Body mass index (BMI) [Ratio] 33.94 kg/m2 33.94 kg/m2 eCW1 ([facility]) Systolic blood pressure 124 mm[Hg] 124 mm[Hg] e CW1 ([facility]) Diastolic blood pressure 78 mm[Hg] 78 mm[Hg] eCW1 ([facility]) Body weight 205.0 [lb_av] 205.0 [lb_av] eCW1 ([facility]) Body height 65 [in_i] 65 [in_i] eCW1 ([facility]) Body mass index (BMI) [Ratio] 34.11 kg/m2 34.11 kg/m2 eCW1 ([facility]) Heart rate 102 /min 102 /min eCW1 ([facility]) Respiratory rate 18 /min 18 /min eCW1 ([facility]) Body temperature 98.2 [degF] 98.2 [degF] eCW1 ( [facility]) Systolic blood pressure 122 mm[Hg] 122 mm[Hg] e CW1 ([facility]) Diastolic blood pressure 80 mm[Hg] 80 mm[Hg] eCW1 ([facility]) ID Date Data Source [id number] 02/25/2021 04:39:08 PM EDT [facility] Name Value Range Interpretation Code Description Data Source(s) WEIGHT RECORDED 240 lb 240 lb [facility] Body height Measured 65 in 65 in [facility] ID Date Data Source [id number] 11/17/2020 03:51:26 PM EDT [facility] Name Value Range Interpretation Code Description Data Source(s) TRANSFER FROM [facility] ID Date Data Source [id number] 11/02/2020 11:10:30 AM EDT [facility] Name Value Range Interpretation Code Description Data Source(s) WEIGHT RECORDED 195 lb 195 lb [facility] Body height Measured 63.78 in 63.78 in [facility] PREFERRED NAME Shabnam Haque [facility] PREFERRED NAME Shabnam Haque [facility] TRANSFER FROM [facility] PREFERRED NAME Shabnam Haque [facility] ID Date Data Source [id number] 10/31/2020 10:20:26 AM EDT [facility] Name Value Range Interpretation Code Description Data Source(s) PREFERRED NAME Shabnam Haque [facility] TRANSFER FROM [facility] PREFERRED NAME Shabnam Haque [facility] ID Date Data Source [id number] 10/05/2020 12:42:49 AM EDT [facility] Name Value Range Interpretation Code Description Data Source(s) PREFERRED NAME Shabnam Haque [facility] WEIGHT RECORDED 195.77 lb 195.77 lb [facility] Body height Measured 65 in 65 in [facility] Patient Treatment Plan of Care Planned Activity Planned Date Details Description Data Source (s) quetiapine 25 MG Oral Tablet [Seroquel] 02/26/2021 12:00:00 AM EDT eC ([facility]) Propranolol Hydrochloride 10 MG Oral Tablet 02/26/2021 12:00:00 AM EDT eC ([facility]) Fluticasone Propionate 50 MCG/ACT 02/25/2021 01:00:00 [...] 10 MG 02/25[facility] 25 MCG 02/25/2021 01:00:00 AM EDT [facility]) Azelastine HCl 0.05 % 02/25/2021 01:00:00 AM EDT [facility]) Calcium-Vitamin D3 600-400 MG-UNIT 02/25/2021 01:00:00 AM EDT [facility]) Fluoxetine 20 MG Oral Capsule 11/03/2020 12:00:00 AM [facility] Chlorpromazine hydrochloride 50 MG Oral Tablet 11/01/2020 12:00:00 AM [facility] Eucalyptol 0.92 MG/ML / Menthol 0.42 MG/ ML / methyl salicylate 0.6 MG/ML / Thymol 0.64 MG/ML Mouthwash 10/31/2020 01:03:39 PM [facility] Chlorpromazine hydrochloride 25 MG Oral Tablet 10/31/2020 01:03:18 PM [facility] albuterol (PROVENTIL HFA) inhaler 2 puff 10/31/2020 12:08:21 PM [facility] Ondansetron 4 MG Disintegrating Oral Tablet 10/31/2020 10:24:29 AM [facility] Aluminum Hydroxide 40 MG/ML / Magnesium Hydroxide 40 MG/ML / Simethicone 4 MG/ML Oral Suspension 10/31/2020 10:24:23 AM EDT [facility] Magnesium Hydroxide 80 MG/ML Oral Suspension 10/31/2020 10:24:21 AM EDT [facility] Acetaminophen 325 MG Oral Tablet 10/31/2020 10:24:12 AM EDT [facility] Azelastine hydrochloride 0.5 MG/ML Ophthalmic Solution 10/01/2020 12:00:00 AM EDT eCW1 ([facility]) olanzapine 20 MG Oral Tablet 09/29/2020 12:00:00 AM EDT [facility] Benzoyl Peroxide 0.05 MG/MG / Erythromycin 0.03 MG/MG Topical Gel 09/18/2020 12:00:00 AM EDT eCW1 ([facility]) Benzoyl Peroxide 0.05 MG/MG / Erythromycin 0.03 MG/MG Topical Gel 09/18/2020 12:00:00 AM EDT eCW1 ([facility]) Benzoyl Peroxide 0.05 MG/MG / Erythromycin 0.03 MG/MG Topical Gel 09/18/2020 12:00:00 AM EDT eCW1 ([facility]) Benzoyl Peroxide 0.05 MG/MG / Erythromycin 0.03 MG/MG Topical Gel 09/18/2020 12:00:00 AM EDT eCW1 ([facility]) Benzoyl Peroxide 0.05 MG/MG / Erythromycin 0.03 MG/MG Topical Gel 09/18/2020 12:00:00 AM EDT eCW1 ([facility]) Divalproex Sodium 125 MG Delayed Release Oral Capsule 09/11/2020 12:00:00 AM EDT [facility] Fluoxetine 40 MG Oral Capsule 07/29/2020 12:00:00 AM EST eCW1 ([facility]) Fluoxetine 40 MG Oral Capsule 07/29/2020 12:00:00 AM EST eCW1 ([facility]) Fluoxetine 40 MG Oral Capsule 07/29/2020 12:00:00 AM EST eCW1 ([facility]) Fluoxetine 40 MG Oral Capsule 07/29/2020 12:00:00 AM EST eCW1 ([facility]) Erythromycin 0.005 MG/MG Ophthalmic Ointment 07/09/2020 12:00:00 AM EST eCW1 ([facility]) Erythromycin 0.005 MG/MG Ophthalmic Ointment 07/09/2020 12:00:00 AM EST eCW1 ([facility]) Benzoyl Peroxide 0.05 MG/MG / Erythromycin 0.03 MG/MG Topical [facility]
--- OUTSIDE RECORDS SUMMARY | 2021-03-12 18:02 | CCD ---
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 Name Role Phone SHANEKA Casiano MD Unavailable Unavailable SHANEKA Casiano MD Unavailable Unavailable SHANEKA Casiano MD Unavailable Unavailable SHANEKA Casiano MD Unavailable Unavailable SHANEKA Casiano MD Unavailable Unavailable SHANEKA Casiano MD Unavailable Unavailable HARDY GIBSON Unavailable Unavailable Jose De Jesus BLAND [id number] Unavailable Unavailable Homa Wellington Unavailable HOMA WELLINGTON [...] Unavailable MD Christianne NIELSON Unavailable Unavailable AIDEN ENLSON MD Unavailable Unavailable AIDEN NELSON MD Unavailable [...] MD Unavailable Unavailable UNKNOWN, DOCTOR Unavailable Unavailable Sear Hopson Unavailable Unavailable CHRISTIAN III, J JAQUELINE [...] Unavailable Unavailable Vinod, Daily MD Unavailable Unavailable Ivnod, Daily MD Unavailable Unavailable Vinod, Daily MD [...] Unavailable Unavailable Vinod, Daily MD Unavailable Unavailable Vniod, Daily MD Unavailable Unavailable Vinod, Daily MD [...] M Yuni MD Unavailable Unavailable White, M Ynui MD Unavailable Unavailable White, M Yuni MD Unavailable Unavailable White, M Yuni MD Unavailable Unavailable White, M Yuni MD Unavailable Unavailable Cheko, M Sriharsha Unavailable Unavailable Cheko, M Sriharsha Unavailable Unavailable Cheko, M Sriharsha Unavailable Unavailable Cheko, M Sriharsha Unavailable Unavailable Cheko, M Sriharsha Unavailable Unavailable Cheko, M Sriharsha Unavailable Unavailable Hceko, M Sriharsha Unavailable Unavailable Cheko, M Sriharsha [...] Unavailable Unavailable EMERGENCY, SERVICES MEDICAL Unavailable Unavailable Anderson, B Ady MD Unavailable Unavailable AndersonAnabell MD Unavailable Unavailable AndersonAnabell MD Unavailable Unavailable MarcoAnabell MD Unavailable Unavailable AndersonAnabell MD Unavailable Unavailable MarcoAnabell MD Unavailable Unavailable AndersonAnabell MD Unavailable Unavailable MarcoAnabell MD Unavailable Unavailable AndersonAnabell MD Unavailable Unavailable MarcoAnabell MD Unavailable Unavailable MarcoAnabell MD Unavailable Unavailable AndersonAnabell MD Unavailable Unavailable AndersonAnabell MD Unavailable Unavailable MarcoAnabell MD Unavailable Unavailable AndersonAnabell MD Unavailable Unavailable AndersonAnabell MD Unavailable Unavailable MarcoAnabell MD Unavailable Unavailable MarcoAnabell MD Unavailable Unavailable AndersonAnabell MD Unavailable Unavailable MarcoAnabell MD Unavailable Unavailable AndersonAnabell MD Unavailable Unavailable AndersonAnabell MD Unavailable Unavailable AndersonAnabell MD Unavailable Unavailable AndersonAnabell MD Unavailable Unavailable AndersonAnabell MD Unavailable Unavailable MarcoAnabell MD Unavailable Unavailable MarcoAnabell MD Unavailable Unavailable MarcoAnabell MD Unavailable Unavailable AndersonAnabell MD Unavailable Unavailable MarcoAnabell MD Unavailable Unavailable MarcoAnabell MD Unavailable Unavailable AndersonAnabell MD Unavailable Unavailable AndersonAnabell MD Unavailable Unavailable MarcoAnabell MD Unavailable Unavailable AndersonAnabell MD Unavailable Unavailable AndersonAnabell MD Unavailable Unavailable MarcoAnabell MD Unavailable Unavailable MarcoAnabell forte MD Unavailable Unavailable MarcoAnabell arreola MD Unavailable Unavailable MarcoAnabell arreola MD Unavailable Unavailable AndersonAnabell MD Unavailable Unavailable MarcoAnabell forte MD Unavailable Unavailable MarcoAnabell MD Unavailable Unavailable AndersonAnabell MD Unavailable Unavailable MarcoAnabell forte MD Unavailable [...] is protected by Article 27-F of the [facility] Public Health law. If you continue you may have access to information: Regarding HIV / AIDS; Provided by facilities licensed or operated by the [facility] Office of Mental Health; or Provided by the [facility] Office for People With Developmental Disabilities. If such information is present, then the following [facility] mandated warning applies: This information has been [...] law may result in a fine or custodial sentence or both. A general authorization for the release of medical or other information is NOT sufficient authorization for further disc losure. Allergies and Adverse Reactions Type Description Substance Reaction Status Data Source(s ) invega, Ceclor, Lamictal, Rocephin, and depakote. inve ga, Ceclor, Lamictal, Rocephin, and depakote. invega, Ceclor, Lamictal, Rocephin, and depakote. active NETSMART ([facility] ) No known allergies No known allergies No known allergies a ctive NETSMART ([facility]) Propensity to adverse reactions NO KNOWN ALLERGIES NO KNOWN ALLERGIES [facility] Propensity to adverse reactions CEPHALOSPORINS CEPHALOSPORINS Hives [facility] Propensity to adverse reactions VALPROIC ACID VALPROIC ACID [facility] Propensity to adverse reactions VALPROIC ACID VALPROIC ACID [facility] Drug allergy PALIPERIDONE PALMITATE ER PALIPERIDONE PALMITATE ER [facility] Propensity to adverse reactions BROMOCRIPTINE BROMOCRIPTINE Rash Low [facility] Propensity to adverse reactions PALIPERIDONE PALMITATE PALIPERID ONE PALMITATE Other [facility] Propensity to adverse reactions CEFTRIAXONE Ceftriaxone Ac tive [facility] Propensity to adverse reactions LAMOTRIGINE lamotrigine Ac tive [facility] Propensity to adverse reactions PALIPERIDONE PALMITATE ER Pa liperidone Palmitate Er Active [facility] Propensity to adverse reactions CEFACLOR Cefaclor Acti ve [facility] Propensity to adverse reactions BROMOCRIPTINE Bromocriptine Rash Low Active [facility] Low Family History Family Member Name Family Member Gender Family Member Status Date o f Status Description Data Source(s) Unknown Unknown Problem MEDENT ([facility], ) father Encounters Encounter Providers Location Date Indications Data Source(s ) Outpatient [address] [facility] [id number] 02/28/2021 12:00:00 AM EDT eCW1 ([facility]) Outpatient Attender: Daily Brock MD Main office - [place] 02/25/2021 12:15:00 PM EDT MEDENT ([facility], ) 02/25/2021 01:00:00 AM EDT - 021 12:00:43 AM EDT NETSMART ([facility]) Unknown [address] [facility] [address] 02/25/2021 12:00:00 AM EDT eCW1 ([facility]) Unknown [address] [facility] [id number] 02/20/2021 12:00:00 AM EDT eCW1 ([facility]) Unknown [address] [facility] [address] 12/12/2020 12:00:00 AM EDT eCW1 ([facility]) Inpatient Attender: America Thibodeaux er: AMERICA MCHUGH .Admitter: AMERICA MCHUGH .Referrer: AMERICA MCHUGH . 12/07/2020 12:00:00 AM EDT Suicidal id [facility] Suicidal ideations Inpatient Attender: Merrick SapnaAttender: MERRICK SAPNAAttender: Yuni Li MDAttender: Hardy KumarAttender: HARDY KUMARAttender: Kirsten Daily KhaliqAttender: KIRSTEN KHALIQAttender: Munnam JafarAttender: MUNNAM JAF ARAttender: Adaora Udekwu MDAttender: BRIGITTEISHA MARIANOHIR MDAttender: NICOLE STRICKLANDON MDAttender: PETROS RENDON MDAttender: Bryan Beckler MDAttender: Aart GeurtsenAttender: TANNA HADZIPASIC MDAttender: America DuttaAttender: AMERICA LOLITA .Attender: KIRSTIE LEE MDAttender: Lenore RobbAdmitter: KIRSTIE LEE MDReferrer: AMERICA LOLITA .Bsw: Ady Lara MDConsultant: Dylan JamisonwthamConsultant: Lobo Stacynsultant: LOBO BLAND [id number]: Emily JafarConsultant: MUNNAM JAFARConsultant: Adaora Udekwu MDConsultant: OPHELIA SANTIAGO MDConsultant: LINUS RAMSAY MD [id number] 12/04/2020 12:00:00 AM EDT - 2021 10:40:00 AM EDT psych eval suicide attempt [facility] psych eval suicide attempt Patient discharged. Unknown [address] [facility] [address] 12/04/2020 12:00:00 AM EDT eCW1 ([facility]) Unknown [address] [facility] [address] 11/28/2020 12:00:00 AM EDT eCW1 ([facility]) Unknown [address] [facility] [address] 11/27/2020 12:00:00 AM EDT eCW1 ([facility]) Unknown [address] [facility] [address] 11/26/2020 12:00:00 AM EDT eCW1 ([facility]) Unknown [address] [facility] [address] 11/24/2020 12:00:00 AM EDT eCW1 ([facility]) Unknown [address] [facility] [address] 11/24/2020 12:00:00 AM EDT eCW1 ([facility]) Unknown [address] [facility] [address] 11/21/2020 12:00:00 AM EDT eCW1 ([facility]) Inpatient Attender: MD YULIET Teran nder: MD DURAN Shahender: PROVIDER DEFAULTAttender: MEDICAL EMERGENCYAttender: KETAN KOTHARI MDAdmitter: MD DURAN NIELSON [id number] 11/18/2020 01:14:00 PM EDT - 11/20/2020 02:30:00 PM EDT [facility] Patient discharged. Inpatient Attender: DOCTOR MORINAdmi tter: MD DURAN Buscherrer: CATE CORTEZ MD 11/18/2020 01:14:00 PM EDT [facility] Outpatient 11/16/2020 11:40:00 PM EDT [facility] Unknown [address] [facility] [address] 11/13/2020 12:00:00 AM EDT eCW1 ([facility]) Inpatient Attender: Sirisha Hansen MDA ttender: SUELLEN THURSTON MDAdmitter: Sirisha Hansen MDReferrer: Lobo Hopson [id number] 12:00:00 AM EDT - 11/02/2020 11:10:00 AM EDT Congenital hypothyroidism without goiter [facility] Congenital hypothyroidism without goiter Patient discharged. Outpatient Attender: Daily Brock MD Main office - [place] 10/29/2020 11:45:00 AM EDT MEDENT ([facility], ) Outpatient Attender: MICHELLE Ferrari tter: MICHELLE VILLEDA MDReferrer: LINUS ANDRADE MD 10/19/2020 01:58:00 AM EDT unspecified depressiv e disorder [facility] unspecified depressive disorder Unknown [address] [facility] [address] 10/01/2020 12:00:00 AM EDT [facility] Unknown [address] [facility] [address] 09/21/2020 12:00:00 AM EDT eCW1 ([facility]) Inpatient Attender: MUSA Casiano MDAtte nder: AIDEN NELSON MDAttender: JAQUELINE GONZALES IIIAttender: CHARISSE HOLLI MDAdmitter: AIDEN NELSON MDReferrer: AIDEN NELSON MDConsultant: OPHELIA SANTIAGO MDConsultant: MUSA Casiano MDConsultant: LOBO BLAND [id number] 09/18/2020 12:00:00 AM EDT - 09/29/2020 04:43:00 PM EDT Suicide attempt, initial encounter [facility] Suicide attempt, initial encounter Patient discharged. Outpatient [address] [facility] [address] 09/18/2020 12:00:00 AM EDT eCW1 ([facility]) Unknown [address] [facility] [address] 09/17/2020 12:00:00 AM EDT eCW1 ([facility]) Unknown [address] [facility] [place] [address] 09/17/2020 12:00:00 AM EDT [facility]CW1 ([facility] [place] [address] [facility] [place] [address] 09/14/2020 12:00:00 AM EDT eCW1 [facility]) Unknown [address] [facility] [place] [address] 09/13/2020 12:00:00 AM EDT eCW1 [facility]) Emergency Attender: EVERETT HANDY MD [id number] 06:12:00 PM EDT - 09/11/2020 09:07:00 PM EDT [facility] Patient discharged. Office Visit, Est Pt., Level 4 PC [address] [place] [address] 09/11/2020 12:00:00 AM EDT eCW1 ([facility]) Unknown [address] [facility] [address] 08/20/2020 12:00:00 AM EDT eCW1 ([facility]) Unknown [address] [facility] [address] 07/30/2020 12:00:00 AM EST eCW1 ([facility]) Office Visit, Est Pt., Level 3 PC [address] [place] [address] 07/27/2020 12:00:00 AM EST eCW1 ([facility]) Unknown [address] [facility] [address] 07/27/2020 12:00:00 AM EST eCW1 ([facility]) Unknown [address] [facility] [address] 07/19/2020 12:00:00 AM EST eCW1 ([facility]) Office Visit, Est Pt., Level 3 PC [address] [place] [address] 07/09/2020 12:00:00 AM EST eCW1 ([facility]) Unknown [address] [facility] [address] 07/09/2020 12:00:00 AM EST eCW1 ([facility]) Unknown [address] [facility] [place] [address] 06/12/2020 12:00:00 AM EST eCW1 ([facility]) Unknown [address] [place] [address] [place] [address] 05/30/2020 12:00:00 AM EST eCW1 ([facility]) Unknown [address] [facility] [place] [address] 05/10/2020 12:00:00 AM EST eCW1 ([facility]) [place]patient [address] [facility] [place] [address] 05/07/2020 12:00:00 AM EST eCW1 ([facility]) Outpatient [address] [facility] [place] [address] 05/07/2020 12:00:00 AM EST eCW1 ([facility]) Unknown [address] [facility] [place] [address] 05/07/2020 12:00:00 AM EST eCW1 ([facility]) Unknown [address] [facility] [place] [address] 05/01/2020 12:00:00 AM EST eCW1 ([facility]) Unknown [address] [facility] [place] [address] 05/01/2020 12:00:00 AM EST eCW1 ([facility]) Unknown [address] [facility] [place] [address] 05/01/2020 12:00:00 AM EST eCW1 ([facility]) Unknown [address] [facility] [place] [address] 05/01/2020 12:00:00 AM EST eCW1 ([facility]) Unknown [address] [facility] [place] [address] 05/01/2020 12:00:00 AM EST eCW1 ([facility]) Unknown [address] [facility] [place] [address] 05/01/2020 12:00:00 AM EST eCW1 ([facility]) Unknown [address] [facility] [place] [address] 04/09/2020 12:00:00 AM EST eCW1 ([facility]) Outpatient Attender: Daily Brock MD Main office - [place] 03/05/2020 11:00:00 AM EDT MEDENT ([facility], SHAU[facility]) Outpatient LERAYWI 02/29/2020 09:44:01 AM EDT [facility] Outpatient LERAYDC 02/21/2020 08:34:03 AM EDT [facility] Outpatient LERAYWI 02/21/2020 08:34:02 AM EDT [facility] Outpatient LERAYWI 02/17/2020 01:52:01 PM EDT [facility] Immunizations Vaccine Date Status Description Data Source(s) influenza, recombinant, quadrIvalent,injectable, prese rvative free 02/28/2021 03:41:00 PM EDT completed eCW1 ([facility]) COVID-19 VACC,MRNA(MODERNA)/PF 10/30/2020 12:00:00 AM EDT completed [facility] COVID-19 VACCINE Moderna 10/30/2020 12:00:00 AM EDT completed [facility] Vaccine Series Complete: YESThis Data wa s Submitted to [facility] Via [employer]. COVID-19 VACC,MRNA(MODERNA)/PF 10/05/2020 12:00:00 AM EDT completed [facility] COVID-19 VACCINE Moderna 10/05/2020 12:00:00 AM EDT completed [facility] Vaccine Series Complete: NOThis Data was Submitted to [facility] Via [employer]. influenza, recombinant, quadrIvalent,injectable, prese rvative free 05/07/2020 04:58:00 PM EST completed eCW1 ([facility]) influenza, recombinant, quadrIvalent,injectable, prese rvative free 05/07/2020 04:58:00 PM EST completed eCW1 ([facility]) influenza, recombinant, quadrIvalent,injectable, prese rvative free 05/07/2020 04:58:00 PM EST completed eCW1 ([facility]) influenza, recombinant, quadrIvalent,injectable, prese rvative free 05/07/2020 04:58:00 PM EST completed eCW1 ([facility]) influenza, recombinant, quadrIvalent,injectable, prese rvative free 05/07/2020 04:58:00 PM EST completed eCW1 ([facility]) influenza, recombinant, quadrIvalent,injectable, prese rvative free 05/07/2020 04:58:00 PM EST completed eCW1 ([facility]) influenza, recombinant, quadrIvalent,injectable, prese rvative free 05/07/2020 04:58:00 PM EST completed eCW1 ([facility]) influenza, recombinant, quadrIvalent,injectable, prese rvative free 05/07/2020 04:58:00 PM EST completed eCW1 ([facility]) influenza, recombinant, quadrIvalent,injectable, prese rvative free 05/07/2020 04:58:00 PM EST completed eCW1 ([facility]) influenza, recombinant, quadrIvalent,injectable, prese rvative free 05/07/2020 04:58:00 PM EST completed eCW1 ([facility]) influenza, recombinant, quadrIvalent,injectable, prese rvative free 05/07/2020 04:58:00 PM EST completed eCW1 ([facility]) influenza, recombinant, quadrIvalent,injectable, prese rvative free 05/07/2020 04:58:00 PM EST completed eCW1 ([facility]) influenza, recombinant, quadrIvalent,injectable, prese rvative free 05/07/2020 04:58:00 PM EST completed eCW1 ([facility]) influenza, recombinant, quadrIvalent,injectable, prese rvative free 05/07/2020 04:58:00 PM EST completed eCW1 ([facility]) influenza, recombinant, quadrIvalent,injectable, prese rvative free 05/07/2020 04:58:00 PM EST completed eCW1 ([facility]) influenza, recombinant, quadrIvalent,injectable, prese rvative free 05/07/2020 04:58:00 PM EST completed eCW1 ([facility]) influenza, recombinant, quadrIvalent,injectable, prese rvative free 05/07/2020 04:58:00 PM EST completed eCW1 ([facility]) influenza, recombinant, quadrIvalent,injectable, prese rvative free 05/07/2020 04:58:00 PM EST completed eCW1 ([facility]) influenza, recombinant, quadrIvalent,injectable, prese rvative free 05/07/2020 04:58:00 PM EST completed eCW1 ([facility]) influenza, recombinant, quadrIvalent,injectable, prese rvative free 05/07/2020 04:58:00 PM EST completed eCW1 ([facility]) influenza, recombinant, quadrIvalent,injectable, prese rvative free 05/07/2020 04:58:00 PM EST completed eCW1 ([facility]) influenza, recombinant, quadrIvalent,injectable, prese rvative free 05/07/2020 04:58:00 PM EST completed eCW1 ([facility]) influenza, recombinant, quadrIvalent,injectable, prese rvative free 05/07/2020 04:58:00 PM EST completed eCW1 ([facility]) influenza, recombinant, quadrIvalent,injectable, prese rvative free 05/07/2020 04:58:00 PM EST completed eCW1 ([facility]) influenza, recombinant, quadrIvalent,injectable, prese rvative free 05/07/2020 04:58:00 PM EST completed eCW1 ([facility]) influenza, recombinant, quadrIvalent,injectable, prese rvative free 05/07/2020 04:58:00 PM EST completed eCW1 ([facility]) influenza, recombinant, quadrIvalent,injectable, prese rvative free 05/07/2020 04:58:00 PM EST completed eCW1 ([facility]) influenza, recombinant, quadrIvalent,injectable, prese rvative free 05/07/2020 04:58:00 PM EST completed eCW1 ([facility]) influenza, recombinant, quadrIvalent,injectable, prese rvative free 05/07/2020 04:58:00 PM EST completed eCW1 ([facility]) influenza, recombinant, quadrIvalent,injectable, prese rvative free 05/07/2020 04:58:00 PM EST completed eCW1 ([facility]) influenza, recombinant, quadrIvalent,injectable, prese rvative free 05/07/2020 04:58:00 PM EST completed eCW1 ([facility]) influenza, recombinant, quadrIvalent,injectable, prese rvative free 05/07/2020 04:58:00 PM EST completed eCW1 ([facility]) influenza, recombinant, quadrIvalent,injectable, prese rvative free 05/07/2020 04:58:00 PM EST completed eCW1 ([facility]) Medications Medication Brand Name Start Date Product [...] propionate 0.05 MG/ACTUAT Metered Dose Seun al Rollins 50 mcg/actuation FLUTICASONE PROPIONATE 03/02/2021 12:00:00 AM [...] ac tive Propranolol HCl 10 MG eCW1 ([facility]) quetiapine 25 MG Oral Tablet [Seroquel] Seroquel 25 MG Seroq uel 25 MG 02/26/2021 12:00:00 AM EDT 1.0 {tablet_at_bedtime} active Seroquel 25 MG eCW1 ([facility]) Zonegran 100 MG Zonegran 02/25/2021 01:00:00 AM EDT completed NETSMART ([facility]) Propranolol HCl 10 MG Propranolol HCl 02/25/2021 01:00:00 AM EDT completed NETSMART ([facility]) SEROquel 25 MG SEROquel 02/25/2021 01:00:00 AM EDT completed NETSMART ([facility]) Albuterol Sulfate (2.5 MG/3ML) 0.083% Albuterol Sulfate 01:00:00 AM EDT completed NETSMAR T ([facility]) Azelastine HCl 0.05 % Azelastine HCl 02/25/2021 01:00:00 AM EDT completed NETSMART ([facility]) Calcium-Vitamin D3 600-400 MG-UNIT Calcium-Vitamin D3 02/25 01:00:00 AM EDT completed NETSMAR T ([facility]) Onfi 10 MG Onfi 02/25/2021 01:00:00 AM EDT complet ed NETSMART ([facility]) Synthroid 25 MCG Synthroid 02/25/2021 01:00:00 AM EDT completed NETSMART ([facility]) Ketoconazole 2 % Ketoconazole 02/25/2021 01:00:00 AM EDT completed NETSMART ([facility]) Fluticasone Propionate 50 MCG/ACT Fluticasone Propionate 08/2020 01:00:00 AM EDT completed NETSMAR T ([facility]) 10 mg 2021 12:00:00 AM EDT [...] Oral active [facility] 11/02/2020 12:00:00 AM EDT capsule 90 TAKE THREE CAPSULES BY MOUTH EVERY DAY TAKE THREE CAPSULES BY MOUTH EVERY DAY SOLD: 11/02/2020 [facility] 50 mg 11/02/2020 12:00:00 AM EDT tablet 60 TAKE ONE TABLET BY MOUTH TWICE A DAY TAKE ONE TABLET BY MOUTH TWICE A DAY SOLD: 11/02/2020 [facility] multivitamin tablet 1 tablet 7221-2219-90 11/01/2020 08:00:00 AM EDT 1 {tbl} Oral active 1 tablet, Oral , Daily Standard, First dose on Thu11/01/20 at 0800, For 30 days [facility] Medication administered onsite Levothyroxine Sodium 0.025 MG Oral Table t levothyroxine (SYNTHROID) tablet 25 mcg levothyroxine (SYNTHROID) tablet 25 mcg 11/01/2020 06:00:00 AM EDT 25 ug Oral active 25 mcg, Oral, Daily at 0600, First dose on Thu11/01/20 at 0600, For 30 days [facility] Medication administered onsite Chlorpromazine hydrochloride 50 MG Oral Tablet chlorproMAZINE HCl 50 MG Oral Tablet (THORAZINE) chlorproMAZINE HCl 50 MG Oral Tablet (THORAZINE) 11/01 12:00:00 AM EDT 50 mg Oral active Take 1 tablet by mouth Two Times Daily [facility] olopatadine 1 MG/ML Ophthalmic Solution olopatadine (PATANOL) 0.1 % ophthalmic solution 1 drop olopatadine (PATANOL) 0.1 % ophthalmic solution 1 drop 10/31/2020 08:00:00 PM EDT 1 [drp] Both Eyes active 1 drop, Both Eyes, 2 Times Daily, First dose on Thu10/31/20 at 2000, For 30 days [facility] Medication administered onsite Chlorpromazine hydrochloride 25 MG Oral Tablet chlorproMAZINE (THORAZINE) tablet 50 mg chlorproMAZINE (THORAZINE) tablet 50 mg 10/31/2020 01:15:00 PM E DT 50 mg Oral active 50 mg, Ora l, 2 Times Daily, First dose on Thu10/31/20 at 1315, For 30 days [facility] Medication administered onsite Eucalyptol 0.92 MG/ML / Menthol 0.42 MG/ ML / methyl salicylate 0.6 MG/ML / Thymol 0.64 MG/ML Mouthwash saliva substitute (BIOTENE) liquid 5 mL saliva substitute (BIOTENE) liquid 5 mL 10/31/2020 01:03:39 PM EDT 5 mL Mouth/Throat active 5 mL, Mouth/Thr oat, PRN, Dry Mouth, Starting on Thu10/31/20 at 1303, For 30 days [facility] Medication administered onsite Chlorpromazine hydrochloride 25 MG Oral Tablet chlorproMAZINE (THORAZINE) tablet 50 mg chlorproMAZINE (THORAZINE) tablet 50 mg 10/31/2020 01:03:18 PM E DT 50 mg Oral active 50 mg, Ora l, Daily PRN, Agitation, Starting on Thu10/31/20 at 1303, For 30 days [facility] Medication administered onsite zonisamide 100 MG Oral Capsule zonisamide (ZONEGRAN) c apsule 200 mg zonisamide (ZONEGRAN) capsule 200 mg 10/31/2020 12:15:00 PM EDT 200 mg Oral active 200 mg, Oral, 2 Times Daily, First dose on Thu10/31/20 at 1215, For 30 days [facility] Medication administered onsite clobazam 10 MG Oral Tablet cloBAZam (ONFI) tablet 15 m g cloBAZam (ONFI) tablet 15 mg 10/31/2020 12:15:00 PM EDT 15 mg Oral active 15 mg, Oral, 2 Times Daily, First dose on Thu10/31/20 at 1215, For 30 days [facility] Medication administered onsite atorvastatin 40 MG Oral Tablet atorvastatin (LIPITOR) tablet 20 mg atorvastatin (LIPITOR) tablet 20 mg 10/31/2020 12:15:00 PM EDT 20 mg Oral active 20 mg, Oral, Daily Standard, First dose on Thu10/31/20 at 1215, For 30 days [facility] Medication administered onsite Fluoxetine 20 MG Oral Capsule fluoxetine (PROZAC) caps ule 60 mg fluoxetine (PROZAC) capsule 60 mg 10/31/2020 12:15:00 PM EDT 60 mg Oral active 60 mg, Oral, Daily Standard, First dose on Thu10/31/20 at 1215, For 30 days [facility] Medication administered onsite albuterol (PROVENTIL HFA) inhaler 2 puff 0188-3771-62 10/31/2020 12:08:21 PM EDT 2 {puff} Inhalation active 2 pu ff, Inhalation, Every 6 hours PRN, Wheezing, Starting on Thu10/31/20 at 1208, For 4 days
Shake the inhaler well before each spray.
[facility] Medication administered onsite Ondansetron 4 MG Disintegrating Oral Tab let ondansetron (ZOFRAN-ODT) disintegrating tablet 4 mg ondansetron (ZOFRAN-ODT) disintegrating tablet 4 mg 10/31/2020 10:24:29 AM EDT 4 mg Oral active 4 mg, Oral, Every 6 hours PRN, Nausea, Starting on Thu10/31/20 at 1024, For 30 days
Dissolve on tongue.
[facility] Medication administered onsite Aluminum Hydroxide 40 [...] at 1024, For 30 days
MDD 4
[facility] Medication administered onsite Magnesium Hydroxide 80 [...] creatinine > 2 notify provider before administering.
[facility] Medication administered onsite Acetaminophen 325 MG Oral Tablet acetaminophen (TYLENO L) tablet 650 mg acetaminophen (TYLENOL) tablet 650 mg 10/31/2020 10:24:12 AM EDT 65 0 mg Oral active 650 mg, Oral, E very 4 hours PRN, Mild Pain (Pain Scale Score 1- 3), Headaches, Starting on Thu10/31/20 at 1024, For 30 days
MDD 4
[facility] Medication administered onsite olanzapine 10 MG Oral Tablet OLANZAPINE 10/25/2020 12:00:00 AM EDT tab let 14 TAKE TWO TABLETS BY MOUTH AT BEDTIME FOR MOOD TAKE TWO TABLETS BY MOUTH AT BEDTIME FOR MOOD SOLD: 10/25/2020 [facility] Azelastine hydrochloride 0.5 MG/ML Ophthalmic Solution Azelastine HCl 0.05 % Azelastine HCl 0.05 % 10/01/2020 12:00:00 AM EDT active Azelastine HCl 0.05 % eCW1 ([facility]) 0.05 % 10/01/2020 12:00:00 AM EDT drops 6 INSTILL 1 DROP IN EACH EYE TWO TIMES A DAY INSTILL 1 DROP IN EACH EYE TWO TIMES A DAY SOLD: 10/03/2020 [facility] Azelastine hydrochloride 0.5 MG/ML Ophthalmic Solution Azelastine HCl 0.05 % Azelastine HCl 0.05 % 10/01/2020 12:00:00 AM EDT active Azelastine HCl 0.05 % eCW1 ([facility]) Azelastine hydrochloride 0.5 MG/ML Ophthalmic Solution Azelastine HCl 0.05 % Azelastine HCl 0.05 % 10/01/2020 12:00:00 AM EDT active Azelastine HCl 0.05 % eCW1 ([facility]) Azelastine hydrochloride 0.5 MG/ML Ophthalmic Solution Azelastine HCl 0.05 % Azelastine HCl 0.05 % 10/01/2020 12:00:00 AM EDT active Azelastine HCl 0.05 % eCW1 ([facility]) Azelastine hydrochloride 0.5 MG/ML Ophthalmic Solution Azelastine HCl 0.05 % Azelastine HCl 0.05 % 10/01/2020 12:00:00 AM EDT active Azelastine HCl 0.05 % eCW1 ([facility]) Azelastine hydrochloride 0.5 MG/ML Ophthalmic Solution Azelastine HCl 0.05 % Azelastine HCl 0.05 % 10/01/2020 12:00:00 AM EDT active Azelastine HCl 0.05 % eCW1 ([facility]) Azelastine hydrochloride 0.5 MG/ML Ophthalmic Solution Azelastine HCl 0.05 % Azelastine HCl 0.05 % 10/01/2020 12:00:00 AM EDT active Azelastine HCl 0.05 % eCW1 ([facility]) Azelastine hydrochloride 0.5 MG/ML Ophthalmic Solution Azelastine HCl 0.05 % Azelastine HCl 0.05 % 10/01/2020 12:00:00 AM EDT active Azelastine HCl 0.05 % eCW1 ([facility]) Azelastine hydrochloride 0.5 MG/ML Ophthalmic Solution Azelastine HCl 0.05 % Azelastine HCl 0.05 % 10/01/2020 12:00:00 AM EDT active Azelastine HCl 0.05 % eCW1 ([facility]) Azelastine hydrochloride 0.5 MG/ML Ophthalmic Solution Azelastine HCl 0.05 % Azelastine HCl 0.05 % 10/01/2020 12:00:00 AM EDT active Azelastine HCl 0.05 % eCW1 ([facility]) Azelastine hydrochloride 0.5 MG/ML Ophthalmic Solution Azelastine HCl 0.05 % Azelastine HCl 0.05 % 10/01/2020 12:00:00 AM EDT active Azelastine HCl 0.05 % eCW1 ([facility]) 0.05 % 10/01/2020 12:00:00 AM EDT drops 6 INSTILL 1 DROP IN EACH EYE TWO TIMES A DAY INSTILL 1 DROP IN EACH EYE TWO TIMES A DAY SOLD: 10/28/2020 [facility] Azelastine hydrochloride 0.5 MG/ML Ophthalmic Solution Azelastine HCl 0.05 % Azelastine HCl 0.05 % 10/01/2020 12:00:00 AM EDT active Azelastine HCl 0.05 % eCW1 ([facility]) 0.05 % 10/01/2020 12:00:00 AM EDT drops 6 INSTILL 1 DROP IN EACH EYE TWO TIMES A DAY INSTILL 1 DROP IN EACH EYE TWO TIMES A DAY SOLD: 02/25/2021 [facility] Azelastine hydrochloride 0.5 MG/ML Ophthalmic Solution Azelastine HCl 0.05 % Azelastine HCl 0.05 % 10/01/2020 12:00:00 AM EDT active Azelastine HCl 0.05 % eCW1 ([facility]) olanzapine 20 MG Oral Tablet OLANZapine 20 MG Oral Tab let (ZYPREXA) OLANZapine 20 MG Oral Tablet (ZYPREXA) 09/29/2020 12:00:00 AM EDT 20 mg Oral aborted Take 1 tablet by mouth nightly [facility] Benzoyl Peroxide 0.05 MG/MG / Erythromyc in 0.03 MG/MG Topical Gel Benzoyl Peroxide-Erythromycin 5-3 % Benzoyl Peroxide-Erythromycin 5-3 % 09/18/2020 12:00:00 AM EDT active Benzoyl Peroxide-Erythromycin 5-3 % eCW1 ([facility]) Benzoyl Peroxide 0.05 MG/MG / Erythromyc in 0.03 MG/MG Topical Gel Benzoyl Peroxide-Erythromycin 5-3 % Benzoyl Peroxide-Erythromycin 5-3 % 09/18/2020 12:00:00 AM EDT active Benzoyl Peroxide-Erythromycin 5-3 % eCW1 ([facility]) Benzoyl Peroxide 0.05 MG/MG / Erythromyc in 0.03 MG/MG Topical Gel Benzoyl Peroxide-Erythromycin 5-3 % Benzoyl Peroxide-Erythromycin 5-3 % 09/18/2020 12:00:00 AM EDT active Benzoyl Peroxide-Erythromycin 5-3 % eCW1 ([facility]) Benzoyl Peroxide 0.05 MG/MG / Erythromyc in 0.03 MG/MG Topical Gel Benzoyl Peroxide-Erythromycin 5-3 % Benzoyl Peroxide-Erythromycin 5-3 % 09/18/2020 12:00:00 AM EDT active Benzoyl Peroxide-Erythromycin 5-3 % eCW1 ([facility]) 25 mcg 09/18/2020 12:00:00 AM EDT tablet [...] EDT active Benzoyl Peroxide-Erythromycin 5-3 % eCW1 ([facility]) Benzoyl Peroxide 0.05 MG/MG / Erythromycin 0.03 [...] EDT active Benzoyl Peroxide-Erythromycin 5-3 % eCW1 ([facility]) atorvastatin 20 MG Oral Tablet ATORVASTATIN CALCIUM [...] EDT active Benzoyl Peroxide-Erythromycin 5-3 % eCW1 ([facility]) Benzoyl Peroxide 0.05 MG/MG / Erythromyc in 0.03 MG/MG Topical Gel Benzoyl Peroxide-Erythromycin 5-3 % Benzoyl Peroxide-Erythromycin 5-3 % 09/18/2020 12:00:00 AM EDT active Benzoyl Peroxide-Erythromycin 5-3 % eCW1 ([facility]) Benzoyl Peroxide 0.05 MG/MG / Erythromyc in 0.03 MG/MG Topical Gel Benzoyl Peroxide-Erythromycin 5-3 % Benzoyl Peroxide-Erythromycin 5-3 % 09/18/2020 12:00:00 AM EDT active Benzoyl Peroxide-Erythromycin 5-3 % eCW1 ([facility]) Benzoyl Peroxide 0.05 MG/MG / Erythromyc in 0.03 MG/MG Topical Gel Benzoyl Peroxide-Erythromycin 5-3 % Benzoyl Peroxide-Erythromycin 5-3 % 09/18/2020 12:00:00 AM EDT active Benzoyl Peroxide-Erythromycin 5-3 % eCW1 ([facility]) 10 mg 09/18/2020 12:00:00 AM EDT tablet [...] EDT active Benzoyl Peroxide-Erythromycin 5-3 % eCW1 ([facility]) atorvastatin 20 MG Oral Tablet ATORVASTATIN CALCIUM [...] EDT active Benzoyl Peroxide-Erythromycin 5-3 % eCW1 ([facility]) Benzoyl Peroxide 0.05 MG/MG / Erythromyc in 0.03 MG/MG Topical Gel Benzoyl Peroxide-Erythromycin 5-3 % Benzoyl Peroxide-Erythromycin 5-3 % 09/18/2020 12:00:00 AM EDT active Benzoyl Peroxide-Erythromycin 5-3 % eCW1 ([facility]) Benzoyl Peroxide 0.05 MG/MG / Erythromyc in 0.03 MG/MG Topical Gel Benzoyl Peroxide-Erythromycin 5-3 % Benzoyl Peroxide-Erythromycin 5-3 % 09/18/2020 12:00:00 AM EDT active Benzoyl Peroxide-Erythromycin 5-3 % eCW1 ([facility]) Benzoyl Peroxide 0.05 MG/MG / Erythromyc in 0.03 MG/MG Topical Gel Benzoyl Peroxide-Erythromycin 5-3 % Benzoyl Peroxide-Erythromycin 5-3 % 09/18/2020 12:00:00 AM EDT active Benzoyl Peroxide-Erythromycin 5-3 % eCW1 ([facility]) Benzoyl Peroxide 0.05 MG/MG / Erythromyc in 0.03 MG/MG Topical Gel Benzoyl Peroxide-Erythromycin 5-3 % Benzoyl Peroxide-Erythromycin 5-3 % 09/18/2020 12:00:00 AM EDT active Benzoyl Peroxide-Erythromycin 5-3 % eCW1 ([facility]) Divalproex Sodium 125 MG Delayed Release Oral Capsule divalproex Sodium (DEPAKOTE SPRINKLE) 125 MG capsule divalproex Sodium (DEPAKOTE SPRINKLE) 12 5 MG capsule 09/11/2020 12:00:00 AM EDT 250 mg Oral active Take 2 capsules (250 mg total) by mouth 2 (two) times a day [facility] 2.5 mg 09/03/2020 12:00:00 AM EDT [...] CAPSULE BY MOUTH EVERY DAY SOLD: 08/01/2020 [email or web address] olanzapine 10 MG Oral Tablet OLANZAPINE 07/31/2020 12:00:00 AM EST tab let 30 TAKE ONE TABLET BY MOUTH EVERY EVENING TAKE ONE TABLET BY MOUTH EVERY EVENING SOLD: 08/01/2020 [facility] Fluoxetine 40 MG Oral Capsule FLUoxetine HCl 40 MG FLUoxetin e HCl 40 MG 07/29/2020 12:00:00 AM EST 1.0 {capsule} active FLUoxetine HCl 40 MG eCW1 ([facility]) Ciprofloxacin 250 MG Oral Tablet Ciprofloxacin HCl 250 MG Ciprofloxacin HCl 250 MG 07/29/2020 12:00:00 AM EST 1.0 {tablet} suspe nded Ciprofloxacin HCl 250 MG eCW1 ([facility]) Fluoxetine 40 MG Oral Capsule FLUoxetine HCl 40 MG FLUoxetin e HCl 40 MG 07/29/2020 12:00:00 AM EST 1.0 {capsule} active FLUoxetine HCl 40 MG eCW1 ([facility]) Ciprofloxacin 250 MG Oral Tablet Ciprofloxacin HCl 250 MG Ciprofloxacin HCl 250 MG 07/29/2020 12:00:00 AM EST 1.0 {tablet} activ e Ciprofloxacin HCl 250 MG eCW1 ([facility]) 250 mg 07/29/2020 12:00:00 AM EST tablet 3 TAKE ONE TABLET BY MOUTH EVERY DAY AT 0600 TAKE ONE TABLET BY MOUTH EVERY DAY AT 0600 SOLD: 07/29/2020 [facility] Fluoxetine 40 MG Oral Capsule FLUoxetine HCl 40 MG FLUoxetin e HCl 40 MG 07/29/2020 12:00:00 AM EST 1.0 {capsule} active FLUoxetine HCl 40 MG eCW1 ([facility]) Fluoxetine 40 MG Oral Capsule FLUoxetine HCl 40 MG FLUoxetin e HCl 40 MG 07/29/2020 12:00:00 AM EST 1.0 {capsule} active FLUoxetine HCl 40 MG eCW1 ([facility]) Ciprofloxacin 250 MG Oral Tablet Ciprofloxacin HCl 250 MG Ciprofloxacin HCl 250 MG 07/29/2020 12:00:00 AM EST 1.0 {tablet} suspe nded Ciprofloxacin HCl 250 MG eCW1 ([facility]) Ciprofloxacin 250 MG Oral Tablet Ciprofloxacin HCl 250 MG Ciprofloxacin HCl 250 MG 07/29/2020 12:00:00 AM EST 1.0 {tablet} suspe nded Ciprofloxacin HCl 250 MG eCW1 ([facility]) Fluoxetine 40 MG Oral Capsule FLUoxetine HCl 40 MG FLUoxetin e HCl 40 MG 07/29/2020 12:00:00 AM EST 1.0 {capsule} active FLUoxetine HCl 40 MG eCW1 ([facility]) Fluoxetine 40 MG Oral Capsule FLUoxetine HCl 40 MG FLUoxetin e HCl 40 MG 07/29/2020 12:00:00 AM EST 1.0 {capsule} active FLUoxetine HCl 40 MG eCW1 ([facility]) Ciprofloxacin 250 MG Oral Tablet Ciprofloxacin HCl 250 MG Ciprofloxacin HCl 250 MG 07/29/2020 12:00:00 AM EST 1.0 {tablet} activ e Ciprofloxacin HCl 250 MG eCW1 ([facility]) Fluoxetine 40 MG Oral Capsule FLUoxetine HCl 40 MG FLUoxetin e HCl 40 MG 07/29/2020 12:00:00 AM EST 1.0 {capsule} active FLUoxetine HCl 40 MG eCW1 ([facility]) benztropine mesylate 0.5 MG Oral Tablet Benztropine Me sylate 0.5 MG Benztropine Mesylate 0.5 MG 07/29/2020 12:00:00 AM EST 1.0 {tablet_at_bedtime} active Benztropine Mesylate 0.5 MG eCW1 ([facility]) Fluoxetine 40 MG Oral Capsule FLUoxetine HCl 40 MG FLUoxetin e HCl 40 MG 07/29/2020 12:00:00 AM EST 1.0 {capsule} active FLUoxetine HCl 40 MG eCW1 ([facility]) Ciprofloxacin 250 MG Oral Tablet Ciprofloxacin HCl 250 MG Ciprofloxacin HCl 250 MG 07/29/2020 12:00:00 AM EST 1.0 {tablet} activ e Ciprofloxacin HCl 250 MG eCW1 ([facility]) Ciprofloxacin 250 MG Oral Tablet Ciprofloxacin HCl 250 MG Ciprofloxacin HCl 250 MG 07/29/2020 12:00:00 AM EST 1.0 {tablet} suspe nded Ciprofloxacin HCl 250 MG eCW1 ([facility]) Ciprofloxacin 250 MG Oral Tablet Ciprofloxacin HCl 250 MG Ciprofloxacin HCl 250 MG 07/29/2020 12:00:00 AM EST 1.0 {tablet} activ e Ciprofloxacin HCl 250 MG eCW1 ([facility]) Ciprofloxacin 250 MG Oral Tablet Ciprofloxacin HCl 250 MG Ciprofloxacin HCl 250 MG 07/29/2020 12:00:00 AM EST 1.0 {tablet} activ e Ciprofloxacin HCl 250 MG eCW1 ([facility]) Ciprofloxacin 250 MG Oral Tablet Ciprofloxacin HCl 250 MG Ciprofloxacin HCl 250 MG 07/29/2020 12:00:00 AM EST 1.0 {tablet} suspe nded Ciprofloxacin HCl 250 MG eCW1 ([facility]) Fluoxetine 40 MG Oral Capsule FLUoxetine HCl 40 MG FLUoxetin e HCl 40 MG 07/29/2020 12:00:00 AM EST 1.0 {capsule} active FLUoxetine HCl 40 MG eCW1 ([facility]) Ciprofloxacin 250 MG Oral Tablet Ciprofloxacin HCl 250 MG Ciprofloxacin HCl 250 MG 07/29/2020 12:00:00 AM EST 1.0 {tablet} suspe nded Ciprofloxacin HCl 250 MG eCW1 ([facility]) Fluoxetine 40 MG Oral Capsule FLUoxetine HCl 40 MG FLUoxetin e HCl 40 MG 07/29/2020 12:00:00 AM EST 1.0 {capsule} active FLUoxetine HCl 40 MG eCW1 ([facility]) Ciprofloxacin 250 MG Oral Tablet Ciprofloxacin HCl 250 MG Ciprofloxacin HCl 250 MG 07/29/2020 12:00:00 AM EST 1.0 {tablet} activ e Ciprofloxacin HCl 250 MG eCW1 ([facility]) Ciprofloxacin 250 MG Oral Tablet Ciprofloxacin HCl 250 MG Ciprofloxacin HCl 250 MG 07/29/2020 12:00:00 AM EST 1.0 {tablet} suspe nded Ciprofloxacin HCl 250 MG eCW1 ([facility]) Fluoxetine 40 MG Oral Capsule FLUoxetine HCl 40 MG FLUoxetin e HCl 40 MG 07/29/2020 12:00:00 AM EST 1.0 {capsule} active FLUoxetine HCl 40 MG eCW1 ([facility]) Ciprofloxacin 250 MG Oral Tablet Ciprofloxacin HCl 250 MG Ciprofloxacin HCl 250 MG 07/29/2020 12:00:00 AM EST 1.0 {tablet} suspe nded Ciprofloxacin HCl 250 MG eCW1 ([facility]) Fluoxetine 40 MG Oral Capsule FLUoxetine HCl 40 MG FLUoxetin e HCl 40 MG 07/29/2020 12:00:00 AM EST 1.0 {capsule} active FLUoxetine HCl 40 MG eCW1 ([facility]) Fluoxetine 40 MG Oral Capsule FLUoxetine HCl 40 MG FLUoxetin e HCl 40 MG 07/29/2020 12:00:00 AM EST 1.0 {capsule} active FLUoxetine HCl 40 MG eCW1 ([facility]) Ciprofloxacin 250 MG Oral Tablet Ciprofloxacin HCl 250 MG Ciprofloxacin HCl 250 MG 07/29/2020 12:00:00 AM EST 1.0 {tablet} suspe nded Ciprofloxacin HCl 250 MG eCW1 ([facility]) Ciprofloxacin 250 MG Oral Tablet Ciprofloxacin HCl 250 MG Ciprofloxacin HCl 250 MG 07/29/2020 12:00:00 AM EST 1.0 {tablet} suspe nded Ciprofloxacin HCl 250 MG eCW1 ([facility]) Fluoxetine 40 MG Oral Capsule FLUoxetine HCl 40 MG FLUoxetin e HCl 40 MG 07/29/2020 12:00:00 AM EST 1.0 {capsule} active FLUoxetine HCl 40 MG eCW1 ([facility]) Fluoxetine 40 MG Oral Capsule FLUoxetine HCl 40 MG FLUoxetin e HCl 40 MG 07/29/2020 12:00:00 AM EST 1.0 {capsule} active FLUoxetine HCl 40 MG eCW1 ([facility]) Ciprofloxacin 250 MG Oral Tablet Ciprofloxacin HCl 250 MG Ciprofloxacin HCl 250 MG 07/29/2020 12:00:00 AM EST 1.0 {tablet} activ e Ciprofloxacin HCl 250 MG eCW1 ([facility]) Ciprofloxacin 250 MG Oral Tablet Ciprofloxacin HCl 250 MG Ciprofloxacin HCl 250 MG 07/29/2020 12:00:00 AM EST 1.0 {tablet} suspe nded Ciprofloxacin HCl 250 MG eCW1 ([facility]) 10 mg 07/29/2020 12:00:00 AM EST tablet [...] {capsule} active FLUoxetine HCl 40 MG eCW1 ([facility]) benztropine mesylate 0.5 MG Oral Tablet Benztropine Me sylate 0.5 MG Benztropine Mesylate 0.5 MG 07/29/2020 12:00:00 AM EST 1.0 {tablet_at_bedtime} active Benztropine Mesylate 0.5 MG eCW1 ([facility]) Ciprofloxacin 250 MG Oral Tablet Ciprofloxacin HCl 250 MG Ciprofloxacin HCl 250 MG 07/29/2020 12:00:00 AM EST 1.0 {tablet} suspe nded Ciprofloxacin HCl 250 MG eCW1 ([facility]) Ciprofloxacin 250 MG Oral Tablet Ciprofloxacin HCl 250 MG Ciprofloxacin HCl 250 MG 07/29/2020 12:00:00 AM EST 1.0 {tablet} activ e Ciprofloxacin HCl 250 MG eCW1 ([facility]) benztropine mesylate 0.5 MG Oral Tablet Benztropine Me sylate 0.5 MG Benztropine Mesylate 0.5 MG 07/29/2020 12:00:00 AM EST 1.0 {tablet_at_bedtime} active Benztropine Mesylate 0.5 MG eCW1 ([facility]) Fluoxetine 40 MG Oral Capsule FLUoxetine HCl 40 MG FLUoxetin e HCl 40 MG 07/29/2020 12:00:00 AM EST 1.0 {capsule} active FLUoxetine HCl 40 MG eCW1 ([facility]) benztropine mesylate 0.5 MG Oral Tablet Benztropine Me sylate 0.5 MG Benztropine Mesylate 0.5 MG 07/29/2020 12:00:00 AM EST 1.0 {tablet_at_bedtime} active Benztropine Mesylate 0.5 MG eCW1 ([facility]) Fluoxetine 40 MG Oral Capsule FLUoxetine HCl 40 MG FLUoxetin e HCl 40 MG 07/29/2020 12:00:00 AM EST 1.0 {capsule} active FLUoxetine HCl 40 MG eCW1 ([facility]) Fluoxetine 40 MG Oral Capsule FLUoxetine HCl 40 MG FLUoxetin e HCl 40 MG 07/29/2020 12:00:00 AM EST 1.0 {capsule} active FLUoxetine HCl 40 MG eCW1 ([facility]) Fluoxetine 40 MG Oral Capsule FLUoxetine HCl 40 MG FLUoxetin e HCl 40 MG 07/29/2020 12:00:00 AM EST 1.0 {capsule} active FLUoxetine HCl 40 MG eCW1 ([facility]) Ciprofloxacin 250 MG Oral Tablet Ciprofloxacin HCl 250 MG Ciprofloxacin HCl 250 MG 07/29/2020 12:00:00 AM EST 1.0 {tablet} suspe nded Ciprofloxacin HCl 250 MG eCW1 ([facility]) Fluoxetine 40 MG Oral Capsule FLUoxetine HCl 40 MG FLUoxetin e HCl 40 MG 07/29/2020 12:00:00 AM EST 1.0 {capsule} active FLUoxetine HCl 40 MG eCW1 ([facility]) Ciprofloxacin 250 MG Oral Tablet Ciprofloxacin HCl 250 MG Ciprofloxacin HCl 250 MG 07/29/2020 12:00:00 AM EST 1.0 {tablet} suspe nded Ciprofloxacin HCl 250 MG eCW1 ([facility]) Fluoxetine 40 MG Oral Capsule FLUoxetine HCl 40 MG FLUoxetin e HCl 40 MG 07/29/2020 12:00:00 AM EST 1.0 {capsule} active FLUoxetine HCl 40 MG eCW1 ([facility]) 10,000 unit- 1 mg/mL 07/28/2020 12:00:00 AM EST drops 10 INSTILL ONE DROP IN EACH EYE FOUR TIMES A DAY INSTILL ONE DROP IN EACH EYE FOUR TIMES A DAY SOLD: 07/28/2020 [facility] Polymyxin B 42196 UNT/ML / Trimethoprim 1 MG/ML Ophthalmic Solution [Polytrim] Polytrim 25658-4.1 UNIT/ML Polytrim 29392-9.1 UNIT/ML 07/27/2020 12:00:00 AM EST active Polytrim 81627-1. 1 UNIT/ML eCW1 ([facility]) Polymyxin B 60153 UNT/ML / Trimethoprim 1 MG/ML Ophthalmic Solution [Polytrim] Polytrim 44387-4.1 UNIT/ML Polytrim 39511-1.1 UNIT/ML 07/27/2020 12:00:00 AM EST active Polytrim 90692-3. 1 UNIT/ML eCW1 ([facility]) Polymyxin B 34780 UNT/ML / Trimethoprim 1 MG/ML Ophthalmic Solution [Polytrim] Polytrim 21669-0.1 UNIT/ML Polytrim 02446-9.1 UNIT/ML 07/27/2020 12:00:00 AM EST active Polytrim 84585-5. 1 UNIT/ML eCW1 ([facility]) Polymyxin B 03115 UNT/ML / Trimethoprim 1 MG/ML Ophthalmic Solution [Polytrim] Polytrim 32599-6.1 UNIT/ML Polytrim 13130-5.1 UNIT/ML 07/27/2020 12:00:00 AM EST active Polytrim 06527-7. 1 UNIT/ML eCW1 ([facility]) Polymyxin B 86367 UNT/ML / Trimethoprim 1 MG/ML Ophthalmic Solution [Polytrim] Polytrim 13721-2.1 UNIT/ML Polytrim 43428-3.1 UNIT/ML 07/27/2020 12:00:00 AM EST active Polytrim 74798-4. 1 UNIT/ML eCW1 ([facility]) Polymyxin B 67753 UNT/ML / Trimethoprim 1 MG/ML Ophthalmic Solution [Polytrim] Polytrim 28018-8.1 UNIT/ML Polytrim 18623-0.1 UNIT/ML 07/27/2020 12:00:00 AM EST active Polytrim 22754-9. 1 UNIT/ML eCW1 ([facility]) Polymyxin B 55003 UNT/ML / Trimethoprim 1 MG/ML Ophthalmic Solution [Polytrim] Polytrim 88108-8.1 UNIT/ML Polytrim 56759-1.1 UNIT/ML 07/27/2020 12:00:00 AM EST active Polytrim 10911-1. 1 UNIT/ML eCW1 ([facility]) Polymyxin B 30061 UNT/ML / Trimethoprim 1 MG/ML Ophthalmic Solution [Polytrim] Polytrim 51649-5.1 UNIT/ML Polytrim 51702-7.1 UNIT/ML 07/27/2020 12:00:00 AM EST active Polytrim 78771-4. 1 UNIT/ML eCW1 ([facility]) Polymyxin B 78730 UNT/ML / Trimethoprim 1 MG/ML Ophthalmic Solution [Polytrim] Polytrim 31540-9.1 UNIT/ML Polytrim 95349-1.1 UNIT/ML 07/27/2020 12:00:00 AM EST active Polytrim 15959-8. 1 UNIT/ML eCW1 ([facility]) Polymyxin B 01769 UNT/ML / Trimethoprim 1 MG/ML Ophthalmic Solution [Polytrim] Polytrim 62843-6.1 UNIT/ML Polytrim 17003-2.1 UNIT/ML 07/27/2020 12:00:00 AM EST active Polytrim 59860-3. 1 UNIT/ML eCW1 ([facility]) Polymyxin B 58083 UNT/ML / Trimethoprim 1 MG/ML Ophthalmic Solution [Polytrim] Polytrim 18016-3.1 UNIT/ML Polytrim 66855-5.1 UNIT/ML 07/27/2020 12:00:00 AM EST active Polytrim 48530-6. 1 UNIT/ML eCW1 ([facility]) Polymyxin B 23471 UNT/ML / Trimethoprim 1 MG/ML Ophthalmic Solution [Polytrim] Polytrim 48516-1.1 UNIT/ML Polytrim 27430-7.1 UNIT/ML 07/27/2020 12:00:00 AM EST active Polytrim 19580-9. 1 UNIT/ML eCW1 ([facility]) Polymyxin B 36043 UNT/ML / Trimethoprim 1 MG/ML Ophthalmic Solution [Polytrim] Polytrim 91656-5.1 UNIT/ML Polytrim 06032-7.1 UNIT/ML 07/27/2020 12:00:00 AM EST active Polytrim 64394-4. 1 UNIT/ML eCW1 ([facility]) Polymyxin B 05352 UNT/ML / Trimethoprim 1 MG/ML Ophthalmic Solution [Polytrim] Polytrim 08480-8.1 UNIT/ML Polytrim 98413-4.1 UNIT/ML 07/27/2020 12:00:00 AM EST active Polytrim 22994-1. 1 UNIT/ML eCW1 ([facility]) Polymyxin B 05726 UNT/ML / Trimethoprim 1 MG/ML Ophthalmic Solution [Polytrim] Polytrim 85273-7.1 UNIT/ML Polytrim 08747-0.1 UNIT/ML 07/27/2020 12:00:00 AM EST active Polytrim 93890-0. 1 UNIT/ML eCW1 ([facility]) Polymyxin B 92628 UNT/ML / Trimethoprim 1 MG/ML Ophthalmic Solution [Polytrim] Polytrim 83503-8.1 UNIT/ML Polytrim 45847-4.1 UNIT/ML 07/27/2020 12:00:00 AM EST active Polytrim 87328-4. 1 UNIT/ML eCW1 ([facility]) Polymyxin B 79381 UNT/ML / Trimethoprim 1 MG/ML Ophthalmic Solution [Polytrim] Polytrim 71686-8.1 UNIT/ML Polytrim 73675-3.1 UNIT/ML 07/27/2020 12:00:00 AM EST active Polytrim 65185-7. 1 UNIT/ML eCW1 ([facility]) Polymyxin B 82637 UNT/ML / Trimethoprim 1 MG/ML Ophthalmic Solution [Polytrim] Polytrim 48046-1.1 UNIT/ML Polytrim 40266-0.1 UNIT/ML 07/27/2020 12:00:00 AM EST active Polytrim 13810-0. 1 UNIT/ML eCW1 ([facility]) Polymyxin B 05593 UNT/ML / Trimethoprim 1 MG/ML Ophthalmic Solution [Polytrim] Polytrim 76403-8.1 UNIT/ML Polytrim 86831-0.1 UNIT/ML 07/27/2020 12:00:00 AM EST active Polytrim 51556-8. 1 UNIT/ML eCW1 ([facility]) Polymyxin B 63882 UNT/ML / Trimethoprim 1 MG/ML Ophthalmic Solution [Polytrim] Polytrim 04404-8.1 UNIT/ML Polytrim 37688-5.1 UNIT/ML 07/27/2020 12:00:00 AM EST active Polytrim 89540-3. 1 UNIT/ML eCW1 ([facility]) Polymyxin B 75809 UNT/ML / Trimethoprim 1 MG/ML Ophthalmic Solution [Polytrim] Polytrim 40519-0.1 UNIT/ML Polytrim 91218-3.1 UNIT/ML 07/27/2020 12:00:00 AM EST active Polytrim 81016-0. 1 UNIT/ML eCW1 ([facility]) Polymyxin B 41750 UNT/ML / Trimethoprim 1 MG/ML Ophthalmic Solution [Polytrim] Polytrim 99180-0.1 UNIT/ML Polytrim 93518-4.1 UNIT/ML 07/27/2020 12:00:00 AM EST active Polytrim 26638-7. 1 UNIT/ML eCW1 ([facility]) Polymyxin B 44600 UNT/ML / Trimethoprim 1 MG/ML Ophthalmic Solution [Polytrim] Polytrim 54202-4.1 UNIT/ML Polytrim 52786-3.1 UNIT/ML 07/27/2020 12:00:00 AM EST active Polytrim 36830-2. 1 UNIT/ML eCW1 ([facility]) 10 mg 07/26/2020 12:00:00 AM EST tablet [...] AM EST active Erythromycin 5 MG/GM eCW1 ([facility]) Erythromycin 0.005 MG/MG Ophthalmic Ointment Erythromy oleksandr 5 MG/GM Erythromycin 5 MG/GM 07/09/2020 12:00:00 AM EST active Erythromycin 5 MG/GM eCW1 ([facility]) Erythromycin 0.005 MG/MG Ophthalmic Ointment Erythromy oleksandr 5 MG/GM Erythromycin 5 MG/GM 07/09/2020 12:00:00 AM EST active Erythromycin 5 MG/GM eCW1 ([facility]) 5 mg/gram (0.5 %) 07/09/2020 12:00:00 AM EST ointment 3 APPLY A SMALL RIBBON TO LOWER EYELIDS THREE TIMES A DAY FOR 7 DAYS APPLY A SMALL RIBBON TO LOWER EYELIDS THREE TIMES A DAY FOR 7 DAYS SOLD: 07/09/2020 [facility] Erythromycin 0.005 MG/MG Ophthalmic Ointment Erythromy oleksandr 5 MG/GM Erythromycin 5 MG/GM 07/09/2020 12:00:00 AM EST active Erythromycin 5 MG/GM eCW1 ([facility]) Erythromycin 0.005 MG/MG Ophthalmic Ointment Erythromy oleksandr 5 MG/GM Erythromycin 5 MG/GM 07/09/2020 12:00:00 AM EST active Erythromycin 5 MG/GM eCW1 ([facility]) Erythromycin 0.005 MG/MG Ophthalmic Ointment Erythromy oleksandr 5 MG/GM Erythromycin 5 MG/GM 07/09/2020 12:00:00 AM EST active Erythromycin 5 MG/GM eCW1 ([facility]) Erythromycin 0.005 MG/MG Ophthalmic Ointment Erythromy oleksandr 5 MG/GM Erythromycin 5 MG/GM 07/09/2020 12:00:00 AM EST active Erythromycin 5 MG/GM eCW1 ([facility]) 1 mg 07/06/2020 12:00:00 AM EST capsule [...] EST active Sennosides-Docusate Sodium 8.6-5 0 MG [facility] ([facility]) Sennosides-Docusate Sodium 8.6-50 MG UNK 05/07/2020 12:00:00 AM EST suspended Sennosides-Docusate Sodium 8.6-5 0 MG eCW1 ([facility]) Sennosides-Docusate Sodium 8.6-50 MG UNK 05/07/2020 12:00:00 AM EST active Sennosides-Docusate Sodium 8.6-5 0 MG eCW1 ([facility]) Sennosides-Docusate Sodium 8.6-50 MG UNK 05/07/2020 12:00:00 AM EST active Sennosides-Docusate Sodium 8.6-5 0 MG eCW1 ([facility]) Sennosides-Docusate Sodium 8.6-50 MG UNK 05/07/2020 12:00:00 AM EST active Sennosides-Docusate Sodium 8.6-5 0 MG eCW1 ([facility]) Sennosides-Docusate Sodium 8.6-50 MG UNK 05/07/2020 12:00:00 AM EST active Sennosides-Docusate Sodium 8.6-5 0 MG eCW1 ([facility]) Sennosides-Docusate Sodium 8.6-50 MG UNK 05/07/2020 12:00:00 AM EST suspended Sennosides-Docusate Sodium 8.6-5 0 MG eCW1 ([facility]) Sennosides-Docusate Sodium 8.6-50 MG UNK 05/07/2020 12:00:00 AM EST suspended Sennosides-Docusate Sodium 8.6-5 0 MG eCW1 ([facility]) Sennosides-Docusate Sodium 8.6-50 MG UNK 05/07/2020 12:00:00 AM EST active Sennosides-Docusate Sodium 8.6-5 0 MG eCW1 ([facility]) Sennosides-Docusate Sodium 8.6-50 MG UNK 05/07/2020 12:00:00 AM EST active Sennosides-Docusate Sodium 8.6-5 0 MG eCW1 ([facility]) Sennosides-Docusate Sodium 8.6-50 MG UNK 05/07/2020 12:00:00 AM EST active Sennosides-Docusate Sodium 8.6-5 0 MG eCW1 ([facility]) Sennosides-Docusate Sodium 8.6-50 MG UNK 05/07/2020 12:00:00 AM EST active Sennosides-Docusate Sodium 8.6-5 0 MG eCW1 ([facility]) Sennosides-Docusate Sodium 8.6-50 MG UNK 05/07/2020 12:00:00 AM EST active Sennosides-Docusate Sodium 8.6-5 0 MG eCW1 ([facility]) 10 mg 05/03/2020 12:00:00 AM EST tablet [...] Topical aborted Apply topically Two Times Daily [facility] Insurance Providers Payer name Policy type / Coverage type Policy ID Covered constitution party ID Covered constitution party's relationship to frank Policy Frank Plan Information UHC UNITED MEDICARE DUAL G [id number] Self [id number] MEDICARE A [id number] Self [id number] A MEDICARE [id number] SP [id number] A [facility] G [id number] Self [id number] [facility] MEDICARE DUAL G [id number] Self [id number] A [facility] MEDICARE DUAL G [id number] Self [id number] MEDICARE [id number] SP [id number] A MEDICARE [id number] SP [id number] MEDICAID [id number] SP [id number] MEDICAID [id number] Self [id number] [id number] Self [id number] [facility] MEDICAID [id number] xxxxxxxxx [id number] [facility] MEDICARE [id number] Addis [id number] [facility] MEDICARE [id number] xxxxxxxxx [id number] [facility] MEDICAID [id number] Addis [id number] MH OPTUM [id number] Self [id number] [facility] [id number] Self [id number] MEDICAID [id number] Addis [id number] MEDICAID [id number] xxxxxxxx [id number] MEDICAID [id number] Self [id number] MH OPTUM [id number] Self [id number] ANSI-Not a Secondary Insurance [id number] ANSI-Medicare Part B [id number] ANSI-Medicaid [id number] ANSI-Not a Secondary Insurance [id number] ANSI-Medicare Part B [id number] ANSI-Not a Secondary Insurance [id number] ANSI-Medicaid [id number] ANSI-Not a Secondary Insurance [id number] ANSI-Medicaid [id number] ANSI-Medicare Part B [id number] ANSI-Medicare Part B [id number] ANSI-Not a Secondary Insurance [id number] ANSI-Medicaid [id number] ANSI-Medicaid [id number] ANSI-Not a Secondary Insurance [id number] ANSI-Medicare Part B [id number] ANSI-Medicaid [id number] ANSI-Not a Secondary Insurance [id number] ANSI-Medicare Part B [id number] [facility] [id number] SP [id number] Medicaid [facility] Part B [id number] Self [id number] Medicare [place] Medicare Primary [id number] Self [id number] Medicaid [facility] Part B [id number] Self [id number] Medicare [place] Medicare Primary [id number] Self [id number] Medicaid [facility] Part B [id number] Self [id number] Medicare [place] Medicare Primary [id number] Self [id number] MEDICAID [id number] SP [id number] MEDICARE P [id number] S [id number] A [facility] MEDICAID [id number] SP [id number] G [id number] [facility] [id number] SP [id number] [facility] [id number] SP [id number] [facility] [id number] SP [id number] MEDICARE [id number] SP [id number] [facility] MCRO [id number] SP [id number] [place] [id number] SP [id number] [facility] [id number] SP [id number] [facility] [id number] SP [id number] MEDICARE COMPLETE [id number] SP [id number] MEDICARE COMPLETE [id number] SP [id number] Medicaid S UNAVAILABLE S UNAVAILA BLE [facility] [employer] P [id number] S [id number] MEDICAID [id number] SP [id number] MEDICARE [id number] SP [id number] A MEDICARE [id number] SP [id number] [facility]) O [id number] S [id number] MEDICAID M [id number] S [id number] Medicare P UNAVAILABLE S UNAVAILA BLE ANSI-Medicaid [id number] ANSI-Medicare Part B [id number] Problems, Conditions, and Diagnoses Code Display Name Description Problem Type Effective Dates Data Source(s) R41.82 Altered mental status, unspecified Altered menta l status, unspecified Diagnosis 12/07/2020 04:17:36 PM EDT [facility] R45.851 Suicidal ideations Suicidal ideations Diagnosis 04:17:36 PM EDT [facility] psych eval suicide attempt psych eval suicide attempt Diagnosis 12/04/2020 02:56:00 PM EDT [facility] E78.00 Pure hypercholesterolemia, unspecified P ure hypercholesterolemia, unspecified Diagnosis 11/20/2020 01:19:08 PM EDT [facility] K21.9 Gastro-esophageal reflux disease without esophagitis Gastro-esophageal reflux disease without esophagitis Diagnosis 11/20/2020 01:19:07 PM ED T [facility] E06.3 Autoimmune thyroiditis Autoimmune thyroiditis Diagnosi s 11/20/2020 01:19:05 PM EDT [facility] E03.8 Other specified hypothyroidism Other specified hypothy roidism Diagnosis 11/20/2020 01:19:05 PM EDT [facility] F79 Unspecified intellectual disabilities Unspecifie d intellectual disabilities Diagnosis 11/20/2020 01:19:04 PM EDT [facility] 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, not intractable, without status epilepticus Localization-related (focal) (partial) s ymptomatic epilepsy and epileptic syndromes with complex partial seizures, not intractable, without status epilepticus Diagnosis 11/20/2020 01:19:03 PM EDT [facility] Psychiatric Evaluation Psychiatric Evaluation Diagnosi s 11/18/2020 01:14:00 PM EDT [facility] E55.9 Vitamin D deficiency, unspecified Vitamin D defi ciency, unspecified Diagnosis 11/18/2020 01:14:00 PM EDT [facility] F29 Unspecified psychosis not du e to a substance or known physiological condition Unspecified psychosis not due to a subst ance or known physiological condition Diagnosis 11/18/2020 01:14:00 PM EDT [facility] E03.1 Congenital hypothyroidism without goiter Congenital hypothyroidism without goiter Diagnosis 10/31/2020 01:25:52 PM EDT [facility] F20.9 Schizophrenia, unspecified Schizophrenia, unspecified Diagnosis 10/31/2020 10:16:00 AM EDT [facility] auditory hallucination, suicidal ideatio n auditory hallucination, suicidal ideation Diagnosis 10/31/2020 10:16:00 AM EDT [facility] unspecified depressive disorder unspecified depressive disorder Diagnosis 10/19/2020 01:58:00 AM T [facility] T14.91XA Suicide attempt, initial encounter Suicide attem pt, initial encounter Diagnosis 09/18/2020 06:03:39 PM EDT [facility] F79 Unspecified intellectual disabilities Unspecifie d intellectual disabilities Diagnosis 09/18/2020 03:18:00 PM EDT [facility] R00.1 Bradycardia, unspecified Bradycardia, unspecified Diag nosis 09/18/2020 03:18:00 PM EDT [facility] R45.850 Homicidal ideations Homicidal ideations Diagnosis 0 09/18/2020 03:18:00 PM EDT [facility] Z11.52 Encounter for screening for COVID-19 Enc ounter for screening for COVID-19 Diagnosis 09/18/2020 03:18:00 PM EDT [facility] R44.3 Hallucinations, unspecified Hallucinations, unspecifie d Diagnosis 09/18/2020 03:18:00 PM T [facility] hearing homicidal voices hearing homicidal voices Diag nosis 09/18/2020 03:18:00 PM EDT [facility] 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 F20.9 Schizophrenia, unspecified Schizophrenia, unspecified Diagnosis 09/11/2020 06:41:23 PM EDT [facility] R00.0 [id number] Sinus tachycardia Problem 02/28/2021 12:00:0 0 AM EDT eCW1 ([facility]) F20.9 Schizophrenia, unspecified Schizophrenia, unspecified Problem 02/19/2021 01:00:00 AM EDT [facility]SM[facility] ([facility] ) R32 [id number] Enuresis Problem 09/18/2020 12:00:00 AM ED T eCW1 ([facility]) F79 [id number] Intellectual disability Problem 09/11/2020 1 2:00:00 AM EDT eCW1 ([facility]) K59.09 [id number] Constipation, chronic Problem 05/07/2020 12: 00:00 AM EST eCW1 ([facility]) F20.0 [id number] Paranoid schizophrenia Problem 05/07/2020 12 :00:00 AM EST eCW1 ([facility]) 528.9 Other and unspecified diseases of the or al soft tissues Other and unspecified diseases of the oral soft tissues 02/21/2020 08: 33:50 AM EDT [facility] Surgeries/Procedures Procedure Description Date Indications Data Source(s) Imm: Flublok Quadrivalent 18 years & older 0.5mL IM Influenz a 02/28/2021 12:00:00 AM EDT eCW1 ([facility]) OFFICE OUTPATIENT VISIT 25 MINUTES 02/25/2021 12:00:00 AM EDT MEDENT ([facility]) 25 HYDROXY INCLUDES FRACTIONS IF PERFORMED <td>VITAMIN D 25 HYDROXY, TOTAL</td><td>Routine</td><td>11/01/2020 5:33 AM EDT</td><td></td><td> </td> 11/01/2020 05:33:00 AM T [facility] LIPID PANEL <td>LIPID PANEL</td><td>Rout ine</td><td>11/01/2020 5:33 AM EDT</td><td></td><td> </td> 11/01/2020 05:33:00 AM T [facility] EKG 12-LEAD - CMAXX REPORT <td>EKG 12-LEAD - CMAXX REPORT</td><td></td><td>10/31/2020 1:09 PM EDT</td><td></td><td></td> 10/31/2020 01:09:26 PM T [facility] EKG 12-LEAD <td>EKG 12-LEAD</td><td>Rout ine</td><td>10/31/2020 1:09 PM EDT</td><td></td><td></td> 10/31/2020 01:09:26 PM EDT [facility] EKG 12-LEAD - CMAXX REPORT <td>EKG 12-LEAD - CMAXX REPORT</td><td></td><td>10/31/2020 1:08 PM EDT</td><td></td><td></td> 10/31/2020 01:08:09 PM [facility] EKG 12-LEAD - CMAXX REPORT <td>EKG 12-LEAD - CMAXX REPORT</td><td></td><td>10/31/2020 1:08 PM EDT</td><td></td><td></td> 10/31/2020 01:08:09 PM [facility] EKG 12-LEAD <td>EKG 12-LEAD</td><td>Rout ine</td><td>10/31/2020 1:08 PM EDT</td><td></td><td> </td> 10/31/2020 01:08:09 PM [facility] EKG 12-LEAD - CMAXX REPORT <td>EKG 12-LEAD - CMAXX REPORT</td><td></td><td>10/31/2020 1:07 PM EDT</td><td></td><td></td> 10/31/2020 01:07:40 PM [facility] EKG 12-LEAD - CMAXX REPORT <td>EKG 12-LEAD - CMAXX REPORT</td><td></td><td>10/31/2020 1:07 PM EDT</td><td></td><td></td> 10/31/2020 01:07:40 PM [facility] EKG 12-LEAD <td>EKG 12-LEAD</td><td>Rout ine</td><td>10/31/2020 1:07 PM EDT</td><td></td><td></td> 10/31[facility] <td>EKG 12-LEAD</td><td>Rout ine</td><td>10/31/2020 1:07 PM EDT</td><td></td><td> </td> 10/31/2020 01:07:40 PM EDT [facility] URNLS DIP STICK/TABLET REAGENT AUTO MICROSCOPY <td>URI NALYSIS WITH MICROSCOPIC</td><td>Routine</td><td>10/31/2020 12:47 PM EDT</td><td></td><td> </td> 10/31/2020 12:47:00 PM EDT [facility] OFFICE OUTPATIENT VISIT 15 MINUTES 10/29/2020 12:00:00 AM EDT MEDENT ([facility] ) Immunization: Flublok Quadrivalent (18 years & older) 0.5mL IM (Influenza) 05/07/2020 12:00:00 AM EST eCW1 ([facility]) MRI Brain W/O Contrast, Followed By Contrast 0 12:00:00 AM EDT MEDENT ([facility] MRI Brain W/O Contrast, Followed By Contrast 0 12:00:00 AM EDT MEDENT ([facility] Results ID Date Data Source [id number] 2021 09:52:22 AM EDT [facility] Name Value Range Interpretation Code Description Data Catrachita rce(s) Supporting Document(s) Discharge Summary [facility] PMMPZj2tYaPDIsKt28/OSEgrUUHeg7VdZYawWBb7GHpbZDGlB1FgNCY6qV9yFPC9BLlZOxJcXhStKNSl lbm [file] MWNkQMmwMYTmJjDkQEGaFuH0PxUoFB6YIi4APcO6CZD4gTBiJz2CMGooXAqIGpAeWF2GJEw= ID Date Data Source [id number] 02/19/2021 07:23:42 PM EDT [facility] Name Value Range Interpretation Code Description Data Catrachita rce(s) Supporting Document(s) Thyrotropin [Units/volume] in Serum or Plasma 3.970 u[IU]/mL 0.270-4. 200 [facility] ID Date Data Source [id number] 2021 03:06:[address] [facility] Value Range Interpretation Code Description Data Catrachita rce(s) Supporting Document(s) Zonisamide [Mass/volume] in Serum or Plasma 10.0-40.0 L [facility] (NOTE) Det ection Limit = 2.0Performed At: [facility] [id number] Sanjai MD Ph:[id number] ID Date Data Source [id number] 01/21/2021 07:51:[address] [facility] Value Range Interpretation Code Description Data Catrachita rce(s) Supporting Document(s) [facility] AZLNUp1gLaVJFoVjx9WgGcDaTAUhVD4rkjy7X9L4uKDzL4WwzASlh7xiO2UsG7UoHCKmIXJCOU4VjSVx jb2 [file] qAs398+EQyvv9o1/0bvu/7vQaqmZw33XZa0758/u03 H775pw/yQ4324zwt7i5/9/XX33x6+/DbX71/a4Zx4d2Yw67/+Pp430cs/+O7D59/+bxePUv1FdQL61r1 T++/ePvnT5//+G92Rll110v760txdd5Os5+/+9VLCj/92b1rk1k5g/z8y/e//xv08JM86fSMvP/president & founder/+n q6nxAqk0B/jy/auN3/z6N+8+qZf1L692+vJ+4O2bf3 qJaG5y0zZj/+XHxexjZ/9/mvD1N//yEuT7j++//vSS1d+18Bmv287z9XtTbQJcf1Na45/78Gr/3Um++v j2j+8+vp7+idvvsXXf/gCypd5Y17/ct5Ml/N++NtiOc6gIm3Pfm/jFL/0sS7gxliz74//DX/nwmlKwXC /4+89Ea6sj2dI193r/A3Bbiw+7xiS0fsRfKEPPhG25 DTh4VZ3Gfq3cR79HpDul4onfbJ/lR5dCkd64+O7fv/qEL107y5e//r8/a0w281JRP5+9/dcvX5/4n3/Q 6sqIoh5/85/+/Q9/+f711C/sx187fx29+6e3z//j2z/9jz9++wc+f5H1n4A+8je/BroP/eqldINr2S7f 1H/33Z/+3ms9j0r9a+9+MFsEUTzBO2Rcu94/649LP9 hLID8u/YC/+fD2hz/97bu//D/f/vEnij+y/NJim5UM5Ii/Lb8ifQ7+vv3b/3rV/Q9//tOPi9/H7/2o+C gyzy283h/309ge7oczZ5F0Fs+h+/pB6buC+3DM6Cc/kveYNQU1x6J2h78jo4W05nkrjj0h7wo/97u//v 7tnw3yXF//5vNPP9+BBf/tP73+nf/7L//tP//o7vMd /vG777/94w++8PoB/vm3/+v33/711dl+DDYQ3tT//CvZz7bids815//+2UeIH/785+8/695+dMNp76/+ /PvPhPDeVhQJGPYs+d3v/+NPf/i8i22sdnm6xLjcd0pqq7h3q602miw/++ybv/3Hd3/5+4rzXOy8+Jtf //m3cV83sN/gKtr4e01qW6S68fyF+s23/+M5O0z639 [file] JmgsHp7pfXO4EXBqNuoLPx5Av1XzymL4pqRoRoI9HmRcWvMbCH6X ID Date Data Source [id number] 01/20/2021 08:40:03 AM EDT [facility] Name Value Range Interpretation Code Description Data Catrachita rce(s) Supporting Document(s) Consultation [facility] TFAQCu8qBwYSMnJs66/NNPrrLNYdh7GjCRqfNFx6QEhhDCEhH3ZvOKT6zO2sJFB2JWjPFbOtYqDaZIO9 lbm [file] ICAgICAgICAgICAgICAgICAgICAgICAgICAgICAgIC AgICAgICAgICAgICAgICAgICAgICAgICAgICAgICAgICAgICAgICAgICAgICAgICAgICAgICAgICAgDQ ogICAgICAgICAgICAgICAgICAgICAgICAgICAgICAgICAgICAgICAgICAgICAgICAgICAgICAgICAgIC AgICAgICAgICAgICAgICAgICAgICAgICAgICAgICAg ICAgICAgICAgDQogICAgICAgICAgICAgICAgICAgICAgICAgICAgICAgICAgICAgICAgICAgICAgICAg ICAgICAgICAgICAgICAgICAgICAgICAgICAgICAgICAgICAgICAgICAgICAgICAgICAgDQogICAgICAg ICAgICAgICAgICAgICAgICAgICAgICAgICAgICAgIC AgICAgICAgICAgICAgICAgICAgICAgICAgICAgICAgICAgICAgICAgICAgICAgICAgICAgICAgICAgIC AgDQogICAgICAgICAgICAgICAgICAgICAgICAgICAgICAgICAgICAgICAgICAgICAgICAgICAgICAgIC AgICAgICAgICAgICAgICAgICAgICAgICAgICAgICAg ICAgICAgICAgICAgDQogICAgICAgICAgICAgICAgICAgICAgICAgICAgICAgICAgICAgICAgICAgICAg ICAgICAgICAgICAgICAgICAgICAgICAgICAgICAgICAgICAgICAgICAgICAgICAgICAgICAgDQogICAg ICAgICAgICAgICAgICAgICAgICAgICAgICAgICAgIC AgICAgICAgICAgICAgICAgICAgICAgICAgICAgICAgICAgICAgICAgICAgICAgICAgICAgICAgICAgIC AgICAgDQogICAgICAgICAgICAgICAgICAgICAgICAgICAgICAgICAgICAgICAgICAgICAgICAgICAgIC AgICAgICAgICAgICAgICAgICAgICAgICAgICAgICAg ICAgICAgICAgICAgICAgDQogICAgICAgICAgICAgICAgICAgICAgICAgICAgICAgICAgICAgICAgICAg ICAgICAgICAgICAgICAgICAgICAgICAgICAgICAgICAgICAgICAgICAgICAgICAgICAgICAgICAgDQog ICAgICAgICAgICAgICAgICAgICAgICAgICAgICAgIC AgICAgICAgICAgICAgICAgICAgICAgICAgICAgICAgICAgICAgICAgICAgICAgICAgICAgICAgICAgIC YqDCNxRVTlKEx0F2xrMTYrVIXhCE6gJUd1Bw3+NHuQZfHlKTU6ufSboI3OTZ6st1CpEVbeLXFsd2MsYB a9XQ6WNPGnGKrlQD7EGTqdqm0VNCZvSKXtoVBOl3xp AgDqKIG9BWAkKhyoQG7ZNRAjL7yalsKmPSCuCFDTBJfuXSIMKRibTECWGMKqVUCwVvHpUyHqVBGdKA1B RXNvL107ifAgVC2MDs7VDfBoCH3agd3AWbJpXVFuCxaUJxf6TWdzBQ3ZtNFdmYHtPOBjQLMUQwRkO5qf n0SqWwXeQDZEOKugCM4Yj9FsaXTmOMg+Jm8HEF3lz9 HzZNgiMCHpEQ1voq6PBJjFEuQqQ4WczVpkUWBpffM8yFPkNZV8CJuwOqCfZDybExQNeBShtQaucRhgYQ LjEUXfUE7gCD2wLKSdTTQ1OpApOEBCMI4IYJEhWJKmwLZsDDFjGXUGOK5WBJukEIT4DPRwflNguFJkLH kfTZ2FVWGjwaSiDlSvQMQPLSw+Dk5LAO4yl6QkXBfn CyLaKW5xhv8CMTnZMwVwO6R0mWMyE0F1RUeyBs9SSLMgJFVjOxrfUQFRUVspZC1RVE4zpwV5KF1MtQOt VZDyVRFveFVrKVp1F69rgTFeCEquSH2CWXI+Sharon+Bl6HRAXyJTTmUJOiPrKrRBJFVeVhU3RkA8JNo2Ou T9JfKX23jBtdfvFdUQgfON1JWE3vWDSdVTFIOH1KmC KunB2wlhAaHGAbLEDCWlIeR75fdNIgAGWqZPN9PUQgMx6APIPfQ3SfniVcsXyitaDlFEKnDPUCIS8KVB sjdcIqeBIhuIfzKW90pKuuLD1TJy5ILqLqJA5jmd4OnNNnYk4ALAJlVj0UBOWwQZYzEAAnYEY1PCCnSk IhIKjzQJDzDQQiSQZ4QXBdIIJiBA4UOyOcJWRtDWI4 VpjmNWSzZKXqlb9ZBFDoQYT7UReoYwKjAXZdDXCcERqyEVCxFSLgTKP1XPKpQDKsPT8SBqOrTBMbMNT4 IzSjDMVmBQGmsu7HXIRsFVSsUtR2BGJbXFOtZQFdXIcrQHHcTTH8HWD0TZDvOGMaWR7ZIuOtAMStSNJ0 LEFvWORhFBJzep9ZQAZwXJJrVERvBLQcFCQuBMOpQY thPVZtCDStKvR2ZWIkRBRgRI8GXyMqIBXzNQJ5WwblHGYuZRIdkm0PAIRmOWRxQbF7QSKlUDHsGGRgWW mrEMTiEMV4NXU4ZLDmWPNnPR5XEzXwUSWwWZPgARRuACJbCEIdia5GDVIgFOWrGpFkQvWnQZRnSSZaOU nhTPKlYOL2DLWvTGBwMITxDC1KXcJwQNAfFLI6UTZr GVYrMPIvrr7HDMYoKZYjDmC8VzIaBCXrNRFpPIvhWLBiZHI1BeT2BZJmGFIuLI7EEdUsIMTgNTr5HvHn ASBpNYXuow5WFTCxKUL7YGwzWpRyTSRiNXGdWNmmKOMzIOWpKIJvMOJnYXJtHI7IWgAdDGChBUF9EDfn WCMbNZFsbo6GSBWpLZP6KtP1AGEyMKDeRAIrXGlpXQ GjZCCgJwA8YFSbTJBnVF9XJyLgIGTlRAV8LSymDSWcFLVfvi2WPYLuOGM5Kyw3OvXkVLOoKAHrVDqpDY GvQFZrQEP8KKMnEKLjQF1QXqFlQSLdGCUkHqCxFSXhURJcwe7FRMVvHEL0TWrtFdGaMDEgAZItCTumXF WkVHV7JEX4VXGqLNPeXZ0DSaJoNSCjHXBcSRRbNBAv ALUtjo5AnTZxvUboai5WJNrWZx1BzMhgYBJuZSqtKs6xtALcQbRuGAEZWm6YdyOgICQdTLWTIQlyKXXg VDJzLsT8DEDqUNNgGhSnCdHgZVB7AQGdGrR2JLMnKZD4HfR0KNEeESW9FBN6EkEtAfQ4B0BhKmk8YdEc OXBjL3ScHUM+VQ6tLHr+Dv9Wl9UlyhH8gdEsWTk1LkS4YJ4ZRZSRU7PVOb== ID Date Data Source [id number] 01/13/2021 09:19:06 AM EDT [facility] Name Value Range Interpretation Code Description Data Catrachita rce(s) Supporting Document(s) [facility] PMMSOm8mPaYFIeFpd4VvJdOvZYOqTR3imol4L4S5kCVeS6YksWClc6yhJ1KqF6BzDFJgXWIIOQ1GnYZu jb2 [file] ba093bogiZ7/p62mn0gG2of6hR+rr+81q1o75Lmu/6aNd/Janitor[employer]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+Ps7v+zwjXa+fD71+OxwDP68cOM+3vQ xD+iI0NhjUO80u1ZnoNnmB5fVQ/gM8CspKG2oia2vn Dc/3fYO+Bo8Msc1M83drQY+g/IF0w/nEaummgrCow4ANkE+tax/d35982D6lxp5TKPasfa5J4O9/Q1+H zx2g8sqAK9Kuy8Ubk4Dp+G3P94oLuy3nKqL01Y++b/tFflA9DjvbF3qkS+n1SaQ9vCRQqgN6B+8byoE/ V3s5nxY4ziD/03z4l6Pk/L4T+w1N2Qn88Vuf34C+S2 /56+gr+jyOv1u04tG9cfx7qiV7jsfth7rhifHB+rR20Pvd3Itu103aovbat1G39yR68Jwh9sR57Zev/X 1b2prwEHFI56dllqhq8/bwpO533w46r6kZ6kB2dgOB0Z3vnzAg0ubhyaFSitNjbH96rag6/u4iitJIsd /v3/75nBt/kr1nH09auHo+v7+Lttt+NfhVPm+8f/mV wh19Da0pf5Dddhv1q/tnldt+Af3ca8WbQjyXcowo1+hwWynaly2ddtaufsqa/3yjj1r4oj+M567Kvj+s wa/i/oAFLT0zwqq/+FU+s8serA23Dbcq8Tgii06/KyhJ91yJsl8/j6Tno29U64KoJeeokiloiT++5Xfo 30Eyx49g+ga/ep6R/gM47zUdr06rdxFgQI/25+z1V9 +4Nekc/hH3VN4H6deoNw531hs7LNc/uv6f/FtFPbnFsI3EioTx6ZMhkp9yY992AijhVoctWM78K2kmEe 23xQPB3Xm4fzjm/CVizwY1zsrm+5lOynn+6HtmeX/mgQidQLsnFdd1og4e8x+7u1PUlx+/+wytznm7Vx p32I2kI+zm5XzjFVa+xs7S7nx//OzqbR1fS9+O9w+/ rb0F11G5682ySc7LmUko8H8mRos/a/PiuCCcd1V46yCnWvezN66YoiQ3+5w5Ys5a6FucC9O/L14q5Sr0 zsL7G++j/Qa/kny+/ui1GmVugl79VTKJoPYG1zOV8cl1PzrkyI+f7xpyiE2dYpzgZ29P+w1+9Tzf/vDw x0bDg785f4Pa7+RLc2RvMRFF8dc8pem/PC/w1Vz0l7 /lsyMd+d14u9Rm1qv19XQ+wa/yG/i2zwV3L/SdcoDgo6QtHf+KbwO/0oXxCPzqnMx+h1ZR13qmmtBjJa 8Ffw5+BS9hQN7z5Nap96Tis+HPG/7gik2Dv5S1IYE0Are/34ttc7kG+z4j/fJn3Zc/087iJo8+lee0Z8 Pz5QMb/MV3vYZnZnkNF0/yuv5Y15YWR6ucM2044f++ zzPSb3/Vg1/xaz5zitrMEx9JE1mQex+z3Xcc7/vbH/gzMamu8R7qcP104TrDh73oso8nXdc9008GeX/+ +Srgmq41c+V9vuJX1ecNDwSg7cQbY/Ll26ljuehc/PdNXy2va+BXYf/gV/O9KI20ldCG2xi0Znnqtifm 18ufe/ZogSnAAr331hMUkPF7faKt1LzOs4p/4v2F9I XyN+c72Uxy5g/4rav7T6YL5b50+73t341hc++3/fZ+4xu93/xD49I1C/vuk91T5l83+1K0ijcxqK+ko/ 9xpfZB2MZ6whP+1ced//Ct8bs36VN2ztd+1hA4dn7R2zetG0Wr6Lg+3xG/0zsvoqAtkhIj4myn89Xud6 AX8auO+FVH/Ksffut6go0Lr3cszK7BiqM3MgdbR87j u/NxwqP774z0zQSR8WF3deWl+di64Yk6O3/vLkiHPyN+1TN+Fe/Dnx2/r8OfEb/qDn0Rv+ruKH/ie+a1 m+P9dsbuP+Xc+EaP+FW8P+HPE/pG/Kii2rbX0VgAvde2Kbtwj8Z2bp65xZfDl2O07kt2jg7XvA+J9jvh zxO/78LvuzD+LvTPEb/KZ4y/C+Gd7JkdQj2TqM+8j/ 45+FW+42zukX4+aqF/Kx3K0teQo6RDoyPR5Tg8HcMq1NmVl1dfH/dj5q6plnani7W0opWadrZ1aiX24m BnxK/6Rn8V/Cp8Zl8+2fddL+k6rgC5yhMF2Q58qjF/Ou+E1RuNF6XhwqwFnM14hrShil/tjkcj+FXWZS smsudCb3U92a0cm9EfaccIuvr9/sxmULTbkOBon5P1 9PDSubT92Qd15STW4bvjm+UCjGyMyaT730JYsb0KrwFNqzsEMB3d19xbRnlvXsjsx6LtAcROXo/Ph1/N GUd/z/xoxfOZH+UZ0dxrjVDkIn8bclI3M+/6wgh+axoWc5brM5nNfdWdMB32gSdA71K3Oa/4Rgtdvvxq BloMW1ufC+xm9RtVaKgergEVpraim3w+Nk6gT8rnpG fWBGq2ccms5qNvxXd2/fj+L7/TNMe7duuP6H/AdwXe92BLsykvkRgKLRk0vji8GnnN09Dty1wcRUyai7 lne/d8PY3979AFqM4K8Vsym564Kf/F37jWK95++lLU0kMfRK46gW85uo49i9Gp5WH3ItsubF+PO/8d48 5/R/TuLC3815TI0k+APw+063JOt8YW+w5T98N5de58 y1uiZQjwF77sf/477M5/n8Tiy08Rxc2xaupkX+iS70Pj1PpNTx0/ynZkE+nT7vNC+pM7mviD2VbOEzBJ A/GrEfwq/D/9OD7jj1q1uei2C/YsLA36GDh8aBc50+nQN+NX8c7E+/Tb0wKb8Hm3GW11DV/0iF/ledvo r+B2rmED9hug+FWewlWk3/jVOR/8Pg+k3/WFgfjVQP qpRO90Vqnlix70un+eGI8m/McMxyk9gxVbH/i7iM2Bfp+leB+/7+wNh4w35JyprunGufbfaQr+NNadD4 7leH/i/inea1iu12ZSS9JxucNEmR48YWguMaTlW291RU/+MPjVymd7+9LgV8/l1Kt55y4u3z3/MYJfPc 94H/2u3PuKrx7+vTCV8UgP81U8Yz/V523Ko9+6Bb96 [file] DbemiZCshMctLDEBQiV4TeMWEUKGY1O= ID Date Data Source [id number] 01/12/2021 04:58:09 AM EDT [facility] Name Value Range Interpretation Code Description Data [facility] Supporting Document(s) Color of Urine [facility] Clarity of Urine [facility] Specific gravity of Urine by Refractometry automated 1.016 1.003 -1.030 [facility] pH of Urine by Automated test strip 8.0 5.0-8.0 [facility] Protein [Mass/volume] in Urine by Automated test strip Neg [facility] Glucose [Mass/volume] in Urine by Automated test strip Neg [facility] Ketones [Mass/volume] in Urine by Automated test strip Neg [facility] Bilirubin.total [Presence] in Urine by Automated test strip Negative [facility] Hemoglobin [Presence] in Urine by Automated test strip Neg [facility] Leukocyte esterase [Presence] in Urine by Automated test strip Negative [facility] Nitrite [Presence] in Urine by Automated test strip Negati ve [facility] Leukocytes [#/area] in Urine sediment by Automated count 10 /HPF 0 -5 H [facility] Erythrocytes [#/area] in Urine sediment by Automated count 1 /HPF 0-3 [facility] Bacteria [#/area] in Urine sediment by Automated count Non e [facility] Epithelial cells.squamous [#/area] in Urine sediment by Auto mated count 5 /HPF None [facility] Crystals.amorphous [#/area] in Urine sediment by Microscopy high power field None [facility] ID Date Data Source [id number] 12/30/2020 09:14:05 PM EDT [facility] Name Value Range Interpretation Code Description Data [facility] r[facility](s) Supporting Document(s) [facility] KULKWr4iGbROKuFjv7MmWkBgFRQxTE9tikl0X2D5uWXuT9HduTNzu2xuW8DnF3YsNGPwXBYYWF6TtTBt jb2 [file] [facility]/YED0NOIF3dxVgwhQGMew6BQ3JwHioEk2XX+g7ZclWfcP0niKDPEf78BAvDzvLgeYiA68saDWDg+5 [file] 5/Reyes/3IK8n1l/4CE2fk6tLH4iJMrE3h9FZAhzD2ULgG/CuEul5K/TgP7GymvhcYaREiaUcZTOpAjxKC /Dha7TVMg9S+LKs2J/FGcl5j7LgWB9cAvbqqYaTuzD 68bJeOLkvvNsGAuzwR/Mu+4lgbbUY6G2Sygn4Pg9zo1Q8DF+69F04dmcQ/P9+7fh9+f3Hs+f3/s37f09 4/f63v/PsH1zVmF/jiueP7+3oygYS05bd82n41ygzcb8/Tm7a5w9q+/t+0fe/5zxyUL+fPj3jN+PvFXv L/x+8N4Debf0orlrR4krbKvzcNaq/OOgCb58jZ/x/p HXTv/bwO+Cl6xXMuxyKnH8ZVftOQ3hS1j/8L3gV43a39/s8FB5AEg1pl/yKpmvl/dd+rXAfeHe7NdaU3 7H9+5S2rcOnmlH979ya4/y3K2z2EJ5+9Nnn+waVPhv1jNIsdoulpC2xePjG+XVM/B9B+QdkHfg+w59X/ 3A1czCjk+wD5Lut1zPN6U0DW/D8fvE+/PZ/8iLb3Km EfcrLV764L7MVNgK/dq/YfxaffVYe/6ccji5aMN+K903mgI022t0keXlot/kpv/1Qc+TftEvrct8FP9w /Y7xaxi/fjX5nBprvqf10/Ij5vl3jykaC4g0Hsd5e/q9v/5/FLfB6Qi+J3dlOu02132i4d6Jo+azE18F z/h9P/v0/pkqjo6ebt/P+puf4fpqt035C3o3pi89y/ bX/zme/Zb426vWt50P268ngn/lXCgjhisi0183zsRh/POEPS/AU5g266nztBuv+I2H28f579/Vn/0sya q8H78301+T5rj72ES88//Q104BuzyomuP1wOEIN/a8y+hTB80viI/A+IdS0v4nU1HNo84Ne+O0ydp4Ln 1yebdG1++412liR18k+A8nwg20i5cyfAx6vmRXX67u yme2d4B6viQ0h3+PTJ1g04/h5iSVm9i1onRkpZ6klMsLvnn+rl2Rbs13D4cg5tSlm6p/rZTxs/b8tzLG v7/z13f7wy36twZwft7/+Oo+1/Leed/3pIq/Z/z+0UwG727Iktw6izT7t/hV3w6+no9iwHI/d9T/vm+r E/Uv/L7w+0Y/65o7IJcu4t9Rfc3a51VqaMgH51fgJM fhq3i/v+8ofHWfv+UgonddH0o+gvxjHE7Fqvx+n/v4rj5bA/zaQ3v+qglfSa7+5rOM50nDtG2BZN4+Cl 7H4shtB/ymkyg4Tothb06QD53eg5/+/FXrsOc+1xgQMDq5LXuXpGYktB+Zb6HbZvh1hxASnER4+X0eGz g0AfcodN6V02qM+Diqw79w2/mrNgy/G+px1O/oz3x2 Iwmyp8Gh/kOvC4RGxb++3qpmq406vb0YGxx3BJ7AL0v+tur6TxOq6XX6K1g+CF/R62q6ZN3C0rixhtT3 wC5O9MSRD+Gr+/o05G8Bdrtbw3efi4hSpn2sh27bI6+Ffg6+mr3q+fN7/O3wI+21skcOwQw6Kaj9LCis OfLe58/x7h8xlfh1+Ob0ls51Y88K7uOEGdfn+sj7ma D+rbTtv+8PEyb1Y8aj+uCrv+K11VDh1xr/+0/otd0ydC20G0pN4steF2RM6wAuoVQZ0H/7qpyL9couvY E7/9r2R5I7G8Vf2U///O7fTO2/ttTu/RQy6vykkdh0czwoDrBtjxQ/PLF2F030q9AtcqI2+VuY3O6mj8 Ho08QalOV1+dnf5+Ovtt4//iqez/iPuud4Tbb9Uh+u pG/4K+BmUDr87q/XWy+0Bf+8MP+xfebG07sh8poBOpjvIdufZ+CrtjH/deHOEb7OjEQHpl2gE+p5eLLt p531UcvrenYs3Ivl665spnOr8b1su4U/C79j/Z7ZT90edXl4z2n9fv59/erqz7Qn7+elJgr2HHmJ77vn f+4GH2P9qW/77ca1uw4Fenx184/+9/Lwxsm1/j6/9W BX/Crq2aj/mUs00rg9XibB5/NXPfCVnh++9bXEB1U5+05/lpyRM6ivj22D9ikh6+e5pf3DDiKwMm/e6P RVq33dxoWiniMT2/r98MMDnngCz8PUHMU+w1cnm/yR6DLmk+lZ9cV0kq/g5VKZ8Q3ngjWm66vF8jrxci iqC1+NyJkueH6/8uqj61QHM0+74AfuQp7+0faH56Ow q/HNm/4+D/w+ZF2nH7Zdh5d2fS/kpQ54sahNox59Y+8vXteFr+J5f/3wyZW+z6N8/XBX/Vlf63xqp81L Pt3BV/h09aoxM43It3lImyPb+1dtE5gjZ497iuhZ00kc80jsG+W7xs1Lys/4/iF7br14TstMb+uKX6ld q3j/ngt64uflSj2aBjsU65zQ+78K95uUQ3r6+LnbW+ 93xa+i/il9X70sxT/j/f1+V00b0os149+65S1Ji7wpM/vJq1a1Axer7dz9l6Y/u6E/sGeHvBG/imf8Dn cq38fin/2tj/p866M+Ia/iV3p/vvVRV/wq3mmv/gl5Fb+OEoaV6s/eOEnO7/rtH858r6+n6rr3Qoiz5t uo6443JiMz1e8+0gOtx9aH8/K52uI1gQ3Cf1buAW3o KS9SgpxyYj/F7+ONU+TzoQ2cI/ki4av7/ORd+I3Ue5Kd/LPwVTy/9WBfmI+Er/E7qynh6A3t/nm//ZS+ 6G9Yg1tYzH/ov3wnniyv7xeghvt5eBmrj/B7gfPiyerdE/W8+DwY230Yvz93kLdcE72b+Z5h1ibwXL40 D7w/xjL8dK0L6arngpof7b3i0w/pyxAxOsdqGUT2a7 MdyraAG8T+eOzA/uCI/UG90/B7e+5Khlg2sAtE6i/+amh/MNoy/P6+7xC+btgfD73pHL/vPRmWb0A+X/ h9f+b3Te66CRhjt1zH6mD+GohfDeGr+4zfO35/8aYvqPHp1JtvxQaiNc70lq9Wap4xvl61h/D+Rv8ffh 11hNkO9bwJ0K85jd/8ey5K8fL6WWUhXuXRv1Dr6SwT +TTTuhue3vxzcl+of+F32HPf+Z7mV90ZlJGxHL45+6FD+2NancYz4mBvtwkgHJF4SNrXwHEFhutd3++8 Dnkgbhf52uFewgxyHe+djOLAgSeh+Pv7/vr/EXtmfqoe5vPZq+Xa9XJlKFzsvShb8Vi8/uajYW8+GsJX 99leHxzvv/3fYfi+0xuhMZqY7ub7MUT583MtH4N32c NR9tcxqPWnFMnykwGCyk0/+6THUrh3CLgQ4LIINFg18X5Y2U+O2B/U+834RT6Vp6PGxSzt/hCwU63X/u IbQ/mC51f7PmpY/wg7wvzdhh/zmmHuRplZ469/Ka41kvC32S+Fr+4p3yr1pP5/h4TYkcvgz43Ng5/9C/ IufN/60bliUibqKfqcEQHMJxbDP6dnniDU7ZyeyoJj 93i29/zisSPiV+oD/JXwlWz+1YbnjIqpxM6HJTju3Vr2vSowjF1vHwmP4/eDr/6+mRJ2P/HJupVh+4lP Nr3/wVd/30wJuvUbhzypvxGHPJm/88/uptuakayu9Z8Afq958PEDU0/K46XdhAciv62T4574PyfOLfsu vJnFn/vg6EqSn43lH0/taOvIG+rYc70Oc/vFY0+ub6 x/ThkjWhy1tUBd7z9DClpMcws/Vt5+lrU8pmYZh18ZhnQ3En9gD2QhuyC+//dLH19CPx/a3qpjcbNedV 9ZWah/4/eHn62++cjqwxsGfGX1+MkoK00GciNHs/6gYX/Q3dpXUPLd56z08qrn9nk0x+N3x+/za/8njz gbaweY98ug4T9aOahSZ2tzbs+b8FX8/uJ1J3/3ttva f0lia7a+6fcCr8h71V9+6Mnc/Z4j0y58Xxif02iFL6xi2I5E3F08y/D+RruQt7/69LLda5gaw4//5Op+ nxt+b/e5x031/gbAR9Uzh5fTudTghCUbG03b4+vEL5mpDGze/S9Tx9sfG2657aDvGbkxeG71/fAU1ztC 62f8pEOJj1u0+dfGWy/HLClK4ahU+Ogj40vXahpdgQ wu6gsQzx281dI+qi715y/yuBK5mgmg93duTX/wPgT2QB0ga33pwqqg/H1LNvHA8Zrmn/IUMWr20kwbn/ VKk6cmRRVl5RcBLEj8BYgxeOnifW99/HNT+isIP88i/F7xe33+3BWf/Gbbfp/7F6+eTOxw99We48avGt jqPqMeR/1M4k4jbIm9Uj1Zdl/8/eqPwsEPJiq2p110 1oSvVHa+/pYRBmom75xKargnClH/9TRdzfRGFtqI4251S/xO2PPE+S6Hj450JyqTvhmu/oJNzEfrxXNs vfPAtjAfrbfet/XiG7be+sjWW++u7rdL76A8LB/xqKMqSc3CkzKbttFzxrNnnkUDuowoH9uk27/4hm34 k816e4QasseB+9M803ptiT3H4pah026zG0K8hvejYc iL+JVtx/bAY2mvG/i+e+H9jd9f/MojfhXPX/95tcpjmDc5Bdo+8tLw/lsvOOJXXgbqf/Z4ov808IEXL8 /18ta/Bed9jyLBgP9/iIUy84Ms28WJGlSjxyFBCEftr2/2+uIbXt/2kPyphS3/F865gwU10Ih/4P2B9y FvNbTreP/ztsc3Gl9fy8y+1kNSxgr68dcu01qpw46r z0wyQxr8yv/haDm1agtrytkul277Dru+zLfDz3P9Yala/D7x+8TvC/5W5HcL9p4wYG6aorXJ6je/633v b/x6h7z9+Svvb//IFb+K5+uqeqYox9D+tx/q/q72k4e8n7MmxGmi+PW+0M+N+t/+vo+3v+/OZ9XKjy/F T98zqD9QZ+a6mTOScCIKpOjSLh/4X5Lnts3TW6/Justice/ Y8HL+/8xs+2brTac0lU+BjmCpc5hvbmUh93Er9+KtR2mUMB2d2YvCM1mx5g1mqYijRjz6+income tax preparer/shdvd+ eJkyTV6H/1917Vagz5mBufiLf1l/0aDmyJ8zv+f/FJx/8lx6VznIpbeSpM3xd4tlLcCBFxvJ/NR+4vHu s+2m0U9zjuZlIB7uqUz/p8+ws+33lgR/xC85RrGo8+ 9qpQPae2AuQhlQAzpmAsKOb8/j6++KUZy3r91/tO+JrdhMzcyr481HMhu/i+c0Mu+WsKf6zq/K53/tlx ep7iku8H1Nq5yhgxtW96O58wnih+n5xiWLo/MH5x/atT1Mrp/Y5tly1t9WU1oS13g/pHC3gzVQmf0x/3 V674Wp5mA6iti2g3b/Ankur/7F/zIbyOvu7kc1r598Ax [file] t6cxxiiWxdWoxlwk2i81o0utmyvWdj3hmyur8p77t+zsjuvR0b9ryqyf5d48y+zrppbRRkNgzyiL0D69 hxatkrpVWmTkocsI3O63g2ddzmdZalohqudR4G69o3 gdwikJbnVm2w7G0fiJ506lvhd/VX/zDPOFXfnEecnrsSOfKkNzzt/m28czTv++mopHEe7f+D13dDmXC1 zobJ8WY8OajpcR4e8J5iTsf8qg5cdwCIaqN5kG0cEc1OiCUT5/qGZ09jJVF2IvWcbH8Gs+7jx0ecFTCa PZA+dT0WN0ByKE7XM6l2KwfT+zGkJ2mFc4m+HT336+ i5z/aOdQ/eb1/be8CR2i08OG14p5/ruWfg/tO6Lcqip85h9v2x6BDdQXum08j8dT/27jQj93AG3Eg463 q2t/ET3b6jkiCW7g2u0zb/zPZGXd/py+gHuC4o48cfUM/bvejU5Uy0C/CmaBRA8vHj/wspmTIz8T975g rCjV8om642pkjTb77uWN9Lh2kugAX+Cu7vp/7aT/11 SW7i2jirvJ423N8Bp1UHH6f22o+zbEgTq9LvgS3tCMx5uA1+JhW5uArSF+7vRw+T1iq77RG6U3IhK5LC 40l6hSbJPKuQ0LG04/Lj03udd24uqluxv43INukRlEqBL8o4lbKNi1UH54aAF/y6Xbg+2ObDV9h1ouXU 0V5P3J/crTIkzO89vXgsAbgpX4ba/z29ug3g87N/xm aSLILR2mO1i775E27tlzhZ8zbZG+830J8T/SxeH080F4qTK1pD1huY4bW6IcxzuMjJmB5K1FwPvlfcpC 5L9r2CxnJu8v9TFyvZHFcqLV7R62rjgIZz5nqPxj51MaKlo2dju/xtgfon5xctav+tZhgySuE68ubgJ8 ZtDC9935uBMexBin9oR54nzz+j1qpDtydWi01R1A7s 6QPpA+qfp5QYute/4Xllrxt60zMfjayucetGifjxY0TPfpj6zsSspjoMsh5WE6Lr2di+NPAa4wi954ck SL/lX50rkoJ83mkhnFesI2/y5/jzl35yQjcU/zN+LRJnS79PgydJ4rb1GK98xkI31sF3mlHtZS08V5NP 0Nbdmek7miYyI8r/9rMs+5cOkok7YfraD6WFX7ddah vSA+XS4xxyZn/Q35ey5FiHJ1Gteu7bv/olc1GdqMsSl/hU8xcqb55jvj03EofTmpNLgHY8u5nMHrWsRZ /AlLKe2NQ3z1pB2FWT9HO9B4RqIHhRrtYgz/6XfbWvcT/wynwrZ9y8mGB8moFc1gahraswV4b9+oad/y HgfQ7rT+3ro2c7/8Xk454PFF4Lmo+CGOYrO/akLPtq eh3tG5LUyebQEC1a8be6qtDnD4UpqY/7qoKaTPuqtglN+2pf3+5u0IwYsxPMVd77zdGM8Adxh75JRB+t +i/3phlu8Qmo6IBmD4mD5Ir2Ux0Qj/tKaj/SbV/PMyg7pz3miodIoMOgIUpvImKbemq8QfKE9ysCGNrl tQuazzn65/uR5OTghF+08aaLef9CIa/3tq+kVodv+0 ouoXg0f1vZ4ZHbmvALHajjLcnFzd76kOwp++lh34EFOP+asdBgk4Ky8MLmne9Q67X0D5qxzr3gl0uP9V +7X3Kd122r+9hfI82p/fz/SqI/J/pzoj8n+tYTcLCNjyZw0amhv6V57Pd7jGN3yxAy9vxH4gcwc/p1Ib 6sfGAbjD7N61vlUH5NL5oUdAaCIkrK1DU++3Xeb1/2 5e0PgxLjyNtMY+ueZV/VNdoL/qqDv+pEnhq5C2fxRL4PF2kMlUyHVskSmBY0ac7Q9S2gy7do52xElIeK 96iDv+rgr/qyr+Z83hd/QwI27ecl6Yx3kdmvB2MiENesT8Dw0T95ZM1Z3Cv3RQ/79qsd7we5bi2s+rx/ 2Vfr/zKz1lHjqzS1Oyxc8WmZI755vy55g0MrKQueA8 EIndP43jrKF5e2+w51vsx3tqqzaA1knat3CD/9GvQZ1ea6EPc/tR699DmK+6oPjN+B1KaZlm8pC04SNz 8LfZz/oz7O/1EfgfRE+nzs0AOujx0/wa7n/6gv+8kzRcmY3X9bAwggGZ0GC2Hm0o4vkwYKczIl9G57De UnUc/D13U7/78d/IFFx4WaPC7QNulUqz2pgQ2KHk35 tNfQXjv/v93O/616Mljnd9tc6w2Sl+qG9+tor+K9juX1G9ssAs26m9368Ylm/HO5rMb2WOd8f/FXdf/h 24rjZtv33BTbE23ToPjJA2/V4/vZ3pDdcmLn/P/2xV/WaVKutV30Koqd7GN1WJx/9EOyHlA76C5p5J38 9S0djQC07H12mC5C9jutX/qaQp9gu6/ttc5sfU874y p79KgnsX/i/YK/1mzx02TP1Zd5+Jem8G5CFGv3VXLyaa9f61nygkNl/mU6GNu08bEks/qyFNs6P/zVAH 94yk4t82r0Vvwp6TEsWXxiK8MB7Ka0Z1+NZV/n25Oxepw6ejoE02C9p57v+8Pnelz8dyIE+f1p4UsILY mG+v3sF4MN2FN5NIlwb2Eo+3nIsZ+YEAE4oEkxNH0l o9GarwJCbkalhR1CgldKPP10KCev1KRtCPeIJcafY5ND/Hv36itKQvhMqv5+90cX3C+2oxL2T33xyIMs lK77niS2m56b6Y67wh98mPvZ0geP/VrEMcCRs4Wzjb8j8Yq5iTLurXACxgRR1oLfE15IbwcC+pncE9gs IJfIP4syuMUQe9W+1o/W/Wd+HrU+MHyMQQkO0hh6jp Y9u4j8l5nOIXeaexVZuAPuQZ3h/aumWWmYEO4xFV//haGK+c7xmiYRqdN42PcZpp7/2LA8Q1F9Rb2Yom VC0LUEU/BXA/hPXOGiC6216VsCx1okFfxTBY5b7CRsuH/ZzzDs/P0HU4Bn/5Ikm74dwa9BqjZ7irKW/m o43q/j/XrH/Mqxm62B0mnyROwlv/t1vF/H+1Z84tTK xXzleL+Q8ix0m2W5uIJ9ClC+Z9O27cO7/r52ox3CglIY6rMB1bghkE/iG+eBj+Qq71cWirQuw+Sofía+t1 z+TpdwXBreQVTVPWEipjhxHRKZanih0lcqfKnskt8Cp+Mc4c3gOII92sZqSYEw9eOuSJutMdfv7kfrJs 2uy1u88f7fT0cf/28TeBRJgq9X0+xHTaK3OLrS9pLm W7Lg6FZeN71zsYWb/vzarzzU/sofía+2rOShWSa93WCL9cnzqQP480fDQ+eOblhGv0EA6/ky54A6muF/pe CvFPyVgr/S6/A5eh0+R8VmSvoaLJ+l4K/4vxD89cXs44ux95h/hv92Juzhv6Qvf7hR8uiE5pUZycUGC4 q12siME2CT4yZpgpMMroXb8X6aq4C4YcIu+b0h3o2B +6nqQhboN0XPb6lg/BdncgGG6K48izJKwJHU9A2TzmFeGNf1Ar7Venpehvjc/ln74Z+1X0hHe/uxJxX2 lcK+UthX2s/8qC8Ac5oCW9j8mO+1n/bLFU5z4UnHtmDx42eb/fZA/xGlebt67W9U1DW9kX9S1E0l25H0 wV/yWFtEtg194nTR+tIvK66Xvo3HZh93LOdb/ED5gX OF9Is3XuU3yXJ3DSH+vSuoJGpFSqUNNnwGbnw5aT+I3lF7PIA+wHjqZPiHcv51WqGkU/F+AgLI5oDr8E /VDv+olwxsUbj6c8kls8ow0LjJrt1+O66tpTO4/E8k2Ysd/gR/ddPbVPfEyuR0zW9An+9Qih69yZ6gDg //C+orn3DPnbXsdO91/+wn1Np/te7pKH+c5/pZD9Xi r9Y9Z3+liy0PK3xo/0rdcX/g/kA6vkd+/q845K4LY+xY6Y2pljKR0ln2J4U+X90DAav7R4W+K8X+K8X+ So2ErwHhdO7SG1Lh3zBg3WrD/oyb9DJjLo+SYv+VYv+VYv+FNaj9GRzmtjL6eUT/lSbaC/5KE9+jxPcI /JUm3m+e/bGaZ7+JUZtvuHnmK9Wvj3LFCEigH1U97o uET0sohN2+/dyu8/2r59otF5J+2tf+Nessa+8cy2ykjZERFx3jH13Vzst7I0cmo7jT7sN/YfyU7ed/8rama [file] //Tt15/+/LEKBa3K87tfsB6nQ2454zs34/9k/O6TT9 7e3t59+fX7z7/49O3dp+/vbk1tws/+1Y+uwngdw5Iq0E4wKdjbqPtW5674/dXbu89+//6zX/+d2+4P8H 3bF1+++/WrEp9+8su/v0KuRtfi1r/ePvny17/5+N2nP3/65weoD4kpiZ46r0gbD/kfX/3rhqD0d296go 8wKfbzIg89++rzX37x+G3v9y9o/gyol110kG6/ffvd x1+9/eLLr7/4+d/FcYuPk59Ajq/u3//8w1++/dPbv/3X2yff/PAf3/zwt39+e/t9b620t8/e/vCPTf/w T2/ff/lSL76oanltX732pSW22/a4i4nnXx+0DcE5f01++lc+QqKwqX3l+C+/Ah1gAbN73dd/SmkW2KoC f7n+mZTM2Cqno1a5nrf7pNY3VsM6vWgE6OpoIpxVyk ynGaTmvuHdt//+7Q8/GZO33Ek36yqfzxq0u2ysgkmgq853+bsP2to/yHbU+7M7X+y74Up164R14WW/+0 C/6rGYXo2rypRGdqX24640e715++Kqe305Aamll0tu3cqf7/CBlq3NtsOXe4ZMR2/gb969/ea7h438g/ /55j//AgOznA8Qo+q+sRg/Ln1j//ruq7c//e9X3f/8 /Xc/Ln76i/iQ7fhSF/vX9z/91/d/9JgVL3QKJ063fst/KW1OpXbcmVhiwzf/JA3sVx5JFY/2ro574ogt vPvJ+7dv/u+3f/3vg+X3m7n8sSojeP/J3An/g868Xr2/9cMf/ulHd+/38Itv//UGh16czjFG/JNv/vcf v/nrn7/04dxevW3t/vm7H+c/Q+X6z3/441yiAi74/v u/fDQu+9ENu72/+l7SBw9pFbWZqLGx1D2h/bd//I/v/vzHVwVfo+4pLynL143yXCcaa/7t1ev+9NGXf/ uPb3/Dwgwiw2a1WFQ/+eZ/yzmZ6c1/9w+L9WdNw1dPj2QN9/Mgcgx8aa83QI/68/ifaPu7QLggD0vZot xzst3dh7/xadmFQA1C7sRCMliGyp61+9Wsk6hw7znq 8/2COZO6ntrjkcPzxQQiPY5KZE4ba6CvPrF1YZQyz6VzXVrmMXw5aUGcNRkuxkEgi0HjawytT7Bfg5On UwEsGDCiDzXeYrz8ZLOhRsE6gNThAnHtTPOfD5HlTFBdYyV5EwAlJARAMA0LRWNailQwIlUoPFG+PmVu GR7ppppmROIvk1OqZLgiXQmqQNGnF8O9gJceZCGoF5 KkkG44DSLmV1KddjB1TGT9NHTvVaAfIVKelPAsWQJmVEO+JrHlQW5tnfptBADti6RsEGzcQHT3fF3iUU cWOMVWRMeMEZcsElB6u34eweDSDSNsBQZaTG6NseHhdGyepzTlpJTsZIH7DpHrWYK2WHelWQC6EGUWSH JdPXRaIUHmHYFdD2MkuDudEVtWOWCHCZoPAHdwCxTp x3X8RKBkqnAOAHMBJ12hNAzRXjEQICfaZFL7FIPhNUlrS2H3KinlM7LbXY0LV5SeUAJlRNNMXPYzazIb DT5WbyHtpV1vXOxWFCVMIPdQJYaiDlE3j10eelEPDRIyCAXsVLajYJHzJGXhHBFcNLBqFVPvKEFwRHPo CH0RJ3LzTLJaAFJCPCD6w7QxGMFaqkqxaqreDs7qiz RvYmo+BstsIOPny5QfSLbiB9K4cWVaR2HgY5TbNE6SvLQnLXvrPPNaEOEaTRByB995pbDqOR6+ZW5kb2 RdZzgfZLDSVWOdTUTlIAOaVFW9PdZmZGPmAHMdDJQvRcY0XjHuPxMKLIGhXDN2UUnsCLOaLWGzAJTfYF hvAOWxALX7VTfuUQLkVYNeJB6eBrOhSUDzGbH4AHGe UVCvLXOtcgBSBRUcEVWmHIPyUYF3NLUrMVDhZEwiLHMoAKAaEHY1NRUwQCHaXI2tHaSiPMFgRGAjNxco OUWfJXQpxeDTNJPbVVYnDTY1VoCsNUNlKLQmVImiLHBpETCxPnz3BIQmEDYcHB1nWwXjIHNjHMT3CSjb MDAwMDAgbiAKMDAwMDAwMDUyMyAwMDAwMCBuIAowMD ItIQPiDyErRCQhQOOlDQ0dOpUxLDYxRRR9UQYbKWJyOBLjeaZGGDIjVGCcDSi5LMQgFVQoUJZjSRgwRD ZdJEQtHKC2LJHyVMXoMG2cZiVbKGFxRWYlFFSuRIQaZVTtqqZQQKMkWJXvWZU9OGQeWXQjDPIiEFuoQJ HpTYJsMoi9NYHqAICdRZ9jRsFoJAXzAGN4KHVzZVCe LSOtoaYGTAOjAXY3LFT6BkDiLIVuTNMoQFhwTGOcXGKrTfA5KVHcBDRkNN7bLhGxJTEoKZL0HjKvSTMw STCcrvFWGQXxFUGqCIN0QpMjJKMmJZBmYJdvZUPrEBOxDMFoVXD3KBQ2HXTtEhYnKXmuFVOCTJfCJ7Be gaUfPxITM1llZn8vGpCrXWDUX2Ygr5LvXFHeUOKGYw7+WwK0WVW1rIWbNkz3LHm6NOtiDJQMMe== ID Date Data Source [id number] 12/29/2020 06:59:52 AM EDT [facility] Name Value Range Interpretation Code Description Data Catrachita rce(s) Supporting Document(s) Bicarbonate [Moles/volume] in Serum 24 mmol/L 22-29 [facility] Chloride [Moles/volume] in Serum or Plasma 105 mmol/L 98-107 [facility] Creatinine [Mass/volume] in Serum or Plasma 0.77 mg/dL 0.50-0.90 [facility] Glucose [Mass/volume] in Serum or Plasma 83 mg/dL 70-140 [facility] Potassium [Moles/volume] in Serum or Plasma 4.2 mmol/L 3.4-5.1 [facility] Sodium [Moles/volume] in Serum or Plasma 138 mmol/L 136-145 [facility] Urea nitrogen [Mass/volume] in Serum or Plasma 15 mg/dL 6-20 [facility] Anion gap 3 in Serum or Plasma 9 mmol/L 8-15 [facility] Osmolality of Serum or Plasma by calculation 286 mosm/kg 275-300 [facility] Creatinine/Urea nitrogen [Mass Ratio] in Serum or Plasma 19 [facility] Calcium [Mass/volume] in Serum or Plasma 8.6 mg/dL 8.6-10.0 [facility] Glomerular filtration rate/1.73 sq M pre dicted among non-blacks [Volume Rate/Area] in Serum or Plasma by Creatinine-based formula (MDRD) >6 0 [facility] Glomerular filtration rate/1.73 sq M pre dicted among blacks [Volume Rate/Area] in Serum or Plasma by Creatinine-based formula (MDRD) >60 [facility] ID Date Data Source [id number] 12/29/2020 07:07:33 AM EDT [facility] Name Value Range Interpretation Code Description Data Catrachita rce(s) Supporting Document(s) Leukocytes [#/volume] in Blood by Automated count 7.0 10*3/uL 4-10 [facility] Erythrocytes [#/volume] in Blood by Automated count 4.50 10*6/uL 4.1- 5.3 [facility] Hemoglobin [Mass/volume] in Blood 13.0 g/dL 11.5-15.5 [facility] Hematocrit [Volume Fraction] of Blood by Automated count 40.7 % 3 6-45 [facility] Erythrocyte mean corpuscular volume [Entitic volume] by Auto mated count 90.5 fL 80-96 [facility] Erythrocyte mean corpuscular hemoglobin [Entitic mass] by Automated count 28.9 pg 27-33 [facility] Erythrocyte mean corpuscular hemoglobin concentration [Mass/volume] by Automated count 32.0 g/dL 32.0-36.0 [facility] Erythrocyte distribution width [Ratio] by Automated count 14.5 % 11.5-14.5 [facility] Platelets [#/volume] in Blood by Automated count 234 10*3/uL 150-400 [facility] ID Date Data Source [id number] 12/18/2020 09:42:25 PM EDT [facility] IR LUMBAR PUNCTUREFINAL RESULTInterprete d by:CATHY [...] rce(s) Supporting Document(s) ID Date Data Source [id number] 12/13/2020 08:03:03 PM EDT [facility] Name Value Range Interpretation Code Description Data Catrachita rce(s) Supporting Document(s) [facility] [id number] [facility] [file] [id number] ID Date Data Source [id number] 12/10/2020 07:13:28 AM EDT [facility] Name Value Range Interpretation Code Description Data Catrachita rce(s) Supporting Document(s) Leukocytes [#/volume] in Blood by Automated count 7.7 10*3/uL 4-10 [facility] Erythrocytes [#/volume] in Blood by Automated count 4.47 10*6/uL 4.1- 5.3 [facility] Hemoglobin [Mass/volume] in Blood 13.1 g/dL 11.5-15.5 [facility] Hematocrit [Volume Fraction] of Blood by Automated count 40.7 % 3 6-45 [facility] Erythrocyte mean corpuscular volume [Entitic volume] by Auto mated count 91.0 fL 80-96 [facility] Erythrocyte mean corpuscular hemoglobin [Entitic mass] by Automated count 29.3 pg 27-33 [facility] Erythrocyte mean corpuscular hemoglobin concentration [Mass/volume] by Autom[facility] 32.2 g/dL 32.0-[facility] [Ratio] by Automated count 14.8 % 11.5-14.5 H [facility] Platelets [#/volume] in Blood by Automated count 238 10*3/uL 150-400 [facility] Differential cell count method - Blood [facility] Neutrophils/100 leukocytes in Blood by Automated count 61 % [facility] Lymphocytes/100 leukocytes in Blood by Automated count 26 % [facility] Monocytes/100 leukocytes in Blood by Automated count 9 % [facility] Eosinophils/100 leukocytes in Blood by Automated count 3 % [facility] Basophils/100 leukocytes in Blood by Automated count 1 % [facility] Neutrophils [#/volume] in Blood by Automated count 4.71 10*3/uL 1.8-7 .0 [facility] Lymphocytes [#/volume] in Blood by Automated count 2.00 10*3/uL 1.2-4 .0 [facility] Monocytes [#/volume] in Blood by Automated count 0.68 10*3/uL 0-0.8 [facility] Eosinophils [#/volume] in Blood by Automated count 0.22 10*3/uL 0-0.5 [facility] Basophils [#/volume] in Blood by Automated count 0.06 10*3/uL 0-0.2 [facility] Nucleated erythrocytes/100 leukocytes [Ratio] in Blood by Automated count 0 /100{WBCs} 0-0 [facility] ID Date Data Source [id number] 12/10/2020 07:57:05 AM EDT [facility] Name Value Range Interpretation Code Description Data Catrachita rce(s) Supporting Document(s) Magnesium [Mass/volume] in Serum or Plasma 1.9 mg/dL 1.6-2.6 [facility] ID Date Data Source [id number] 12/10/2020 07:57:05 AM EDT [facility] Name Value Range Interpretation Code Description Data Catrachita rce(s) Supporting Document(s) Phosphate [Mass/volume] in Serum or Plasma 3.9 mg/dL 2.5-4.5 [facility] ID Date Data Source [id number] 12/09/2020 09:03:00 PM EDT [facility] Name Value Range Interpretation Code Description Data Catrachita rce(s) Supporting Document(s) SARS-CoV-2 RNA 2019 nCoV Real-Time RT-PCR: NOT DETECTED [facility] This lab was ordered by [facility] and reported by [facility]. 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 [facility] Patient has symptoms related to [facility] When did you start to experience these symptoms [Date and time] [Phen X] [facility] Patient was hospitalized because of this condition [facility] patient was admitted to ICU for [facility] Patient resides in a congregate care setting [facility] status [facility] ID Date Data Source [id number] 12/09/2020 10:42:03 AM EDT [facility] Name Value Range Interpretation Code Description Data Catrachita rce(s) Supporting Document(s) [facility] YHAMXz3iQbXYRuUex5PlCkZaFLOhUX8vlxt9D1J9kGCsI0BsyTIxu0xeO4HdV4ZdGZYtTOZKLS7MhOZo jb2 [file] [id number] ID Date Data Source [id number] 12/09/2020 10:41:48 AM EDT [facility] Name Value Range Interpretation Code Description Data Catrachita rce(s) Supporting Document(s) [facility] TWUWFp0hNzLKRkVqa1MqByFvSXJuFB6npji4F5M2iIVwS7JjmHGmo6wzX9PrR3CnOAGoHRXTJQ7HdSCx jb2 [file] [employer]+Wwy7aSkJp/0uayz137W+9F8tB/NR/vRfLQfzWeB [file] [id number]+8+4mLl730Ak46355aq/fvf/2iw9/ +Rg0xnm17rg+6999+OKrd2/v3314/8W733/50A9Sd2PV+62yoxygyfEdyY222n/643p7W8/9/h1rNq79 +rvz65947znV//g8gGwt2p1/1vQeSs366gIJf8/50G5xn7k22ooh1gh4+/IPb5/+9swcUruz5tJ/c+d7 jS9FcZUD1129i//jV4p38P/+zs+xwtujF139/O2b91 9/+fVX//qd51tricqpfx+CDD6uKC318tx8s20+zTefvn/99t+++QMyy9lc/wba6941StqrigVDIx/579 agUb99ku24+u3bL/71qy9+9TLsVx/wGwr3l41ua/3bp9++/ajv5650qtcYGU8of268zp//809//eH7/3 j7H//77fd/+vOfv/vrX7//7s///Pb5dz/+6fs/v/37 P4j/+z++/eXHt/kL8V/t09wvPBnr9FC+/w7aqRQ0nTSxUfjOH/jeff/xd1TXjfI6iE96Fcxl0vryc58// J5CefWdL9E/Vw9HoAMUwa5a33lr7f1Dx2n7ffRglYqojX8G/c79rq9xCg//g/ff/+t2LEoouEgd6u/f+ o54dqjb8+6yqkahUPg1aYk7C//L+I7k2YUp/jXPspy r/8hvaNyKuHNAbDdQ+agO///7H//6Xt79+99/xi3T273E5luG35w/7zD5O1pZ6ujFh4a9O61d/+9OP// 39X/+kq0m4mE952vu8r4i/vuDfefeN/fb9t2//8T9f7/6nv/r068mZMPuq7X3z1DU//lLK5988X/DXuK jA26W/eDHsj+4eLxhBI+8g8DbMbh/P9G9ehBbM8kbp W23sm5+///mHt+/+1/f/8apK6hpxm/z8688+/Dw23P/9P9kQqL/913//x5/8en+HX33/w3d//ugLr4/w z777n3/87r/+2G8YF7jXjqKbd/rxp/8/beX68//42/8+Rnz/l7/88Mmrmxf/yU92ib/8yx8/GWxvseEm UxPc+Ifv//h//tofE28c2WS8lf27/eSnkQUkf/pf// 2qdf/xyTdff/vtF7/56oF3e0+e+ItP//s8QFQMDC//6wtmdsno7Ebc8ubP+v//k3vCpG+zeuhvvvs/v3 +Tt7/01upAmwa1Xa/29r895Pw28f70/WIC7z7/8En2lC+RdQ377/efv3v/SOWgonbE4Fckg5348PxuOl T7E8y9opo9//T3oNThXbEMH7bnMtmIvbpnNtCbmL NTcwKKTfCwv8OE4ArLMeQDGrE7U9UZKdpt4rJWKxFRAbjQBwYmPiWJATEN1EpZBuSS1YLLn4IOGcQOJv BdTwFECdziD5VCVqOIIfKCXxQ8QvlpIkgWNnINAmXl8+KY5za9MdOiCiSTSvGlm4BM1EjWKsRM8XxIDu nL5bojSmK301ujKhRXPoLegio8ObCBjhPKDKWB2MLB C8WXY1ZLAvJl0+KO1ps8VaNuLlQWLzXwv2ZN8XsIPpc5AxHY7XZ4AzDJKnTQRNFMG0q1FpNTTzhraotk pvU3ZxABO5eX6oUTY7CGHeEBpuNFXbAByaBQFkCYSpLDphYSQdVETuSLJmVJOpGUo2lNDnGW9ED7AnEW ZfHYQTNSMeirHuTh7vFPgJSIFWDkidEAzCQWZASGNy JYk9ODI2CUXkU5UtigEebOWjKGMMEBnkXxktMJSitR5mmMgsH6MbXKW3a4RcCZ8AO9VlLRSxGDQWFLH8 m4PjCWXqdnszedytIrXwHBQfHXHlMPXdVE8Bzb7yxHFcovJbBHVHPIfxDqhlOB0ppExbfunqA6QzeZAh KSA+PwAlPG4slg8+TpFxMGLlZeu2YYIyXXbgAMScKJ FwYKJsF0piVUNnDcOxSIKsFgNyRP8Am4SoaAYlGv3dgpOoBgoXgETrYomsBWWsYKHfDAZiJeXSHSXoAZ UdBBPxBLO5AHMmSYOyCGjoFRGtBQC7Syi6UJYdUBIjKQ7lXuQqXSHdOuF3OSJqCJDbAWMahvEOVMYnQL K6MSTxJTAgMHLiTEMzLXwgEOMxWFSdASOkRLP4RTP9 TERjAsWsJEFjSSGrKNCeXESkIZRwriVSWVBvBCUfKXU1AZItAIHdGYBjZDbsCIDxJCDaRHyvUOWjZAKc EI1lKnCyIQWcEDCsZGdjGJNyYVZkegTHBEYjUQQfXBTaENHwVKXnAWLuDCzhVIZtOROfJTZuWJYsNUFu SU0lXpTjNVOgCGL7VBVmZRNoZHPtigMYETVjHRSoUC q7SJHaKVSxEFXjZKduXIMcXYZfSNP2HBViLQJrNY1bLvLrKYVyJMB4EfTuBEFpUHOezjEYDVPmLELtSN P9QxKqIOJwYCLxPKgaGLRmUDGkOGoqCNEqMWVxAI2eCmDgIYUcOZZoSAdcZGNsWHPtikKOZVKgEPMuBO CfSdOrPQEzVHKzDHkuPAXmRNR8SAPdQHBlISJgVW7p IgWcFVBsPNN4BSjmHZVdDMVwmlVTMSWnLWAtYLolEBIfQGGbAMRlRDuxGCIhHKKyJPA2JBKdFUAfCO7k OaJoYCHqGUHjOYGxKoT2XlVoYwFMuFJjtWrdszf5SPsfY5u0PYMlMPgkBC9xeoLbKGIuTnzpUi0ueXR1 IFCmHngKWo5To4JedoT6dlWdBfE4MrN0DbVwJY4H ID Date Data Source [id number] 12/09/2020 05:59:43 AM EDT [facility] Name Value Range Interpretation Code Description Data Catrachita rce(s) Supporting Document(s) Leukocytes [#/volume] in Blood by Automated count 7.8 10*3/uL 4-10 [facility] Erythrocytes [#/volume] in Blood by Automated count 4.46 10*6/uL 4.1- 5.3 [facility] Hemoglobin [Mass/volume] in Blood 12.8 g/dL 11.5-15.5 [facility] Hematocrit [Volume Fraction] of Blood by Automated count 40.4 % 3 6-45 [facility] Erythrocyte mean corpuscular volume [Entitic volume] by Auto mated count 90.7 fL 80-96 [facility] Erythrocyte mean corpuscular hemoglobin [Entitic mass] by Automated count 28.7 pg 27-33 [facility] Erythrocyte mean corpuscular hemoglobin concentration [Mass/volume] by Automated count 31.7 g/dL 32.0-[facility].0 [facility] width [Ratio] by Automated count 14.7 % 11.5-14.5 H [facility] Platelets [#/volume] in Blood by Automated count 257 10*3/uL 150-400 [facility] Differential cell count method - Blood [facility] Neutrophils/100 leukocytes in Blood by Automated count 58 % [facility] Lymphocytes/100 leukocytes in Blood by Automated count 29 % [facility] Monocytes/100 leukocytes in Blood by Automated count 9 % [facility] Eosinophils/100 leukocytes in Blood by Automated count 3 % [facility] Basophils/100 leukocytes in Blood by Automated count 1 % [facility] Neutrophils [#/volume] in Blood by Automated count 4.57 10*3/uL 1.8-7 .0 [facility] Lymphocytes [#/volume] in Blood by Automated count 2.24 10*3/uL 1.2-4 .0 [facility] Monocytes [#/volume] in Blood by Automated count 0.72 10*3/uL 0-0.8 [facility] Eosinophils [#/volume] in Blood by Automated count 0.24 10*3/uL 0-0.5 [facility] Basophils [#/volume] in Blood by Automated count 0.06 10*3/uL 0-0.2 [facility] Nucleated erythrocytes/100 leukocytes [Ratio] in Blood by Automated count 0 /100{WBCs} 0-0 [facility] ID Date Data Source [id number] 12/09/2020 06:13:56 AM [facility] Name Value Range Interpretation Code Description Data Catrachita rce(s) Supporting Document(s) Magnesium [Mass/volume] in Serum or Plasma 1.9 mg/dL 1.6-2.6 [facility] ID Date Data Source [id number] 12/09/2020 06:13:56 AM [facility] Name Value Range Interpretation Code Description Data Catrachita rce(s) Supporting Document(s) Albumin [Mass/volume] in Serum or Plasma by Bromocresol green (BCG) dye binding method 3.5 g/dL 3.5-5.2 [facility] Bil[facility].total [Mass/volume] in Serum or Plasma <1.2 [facility] Calcium [Mass/volume] in Serum or Plasma 8.6 mg/dL 8.6-10.0 [facility] Chloride [Moles/volume] in Serum or Plasma 103 mmol/L 98-107 [facility] Creatinine [Mass/volume] in Serum or Plasma 0.81 mg/dL 0.50-0.90 [facility] Glucose [Mass/volume] in Serum or Plasma 86 mg/dL 70-140 [facility] Alkaline phosphatase [Enzymatic activity/volume] in Serum or Plasma 109 U/L 35-104 H [facility] Potassium [Moles/volume] in Serum or Plasma 4.0 mmol/L 3.4-5.1 [facility] Protein [Mass/volume] in Serum or Plasma 6.2 g/dL 6.4-8.3 L [facility] Sodium [Moles/volume] in Serum or Plasma 134 mmol/L 136-145 L [facility] Aspartate aminotransferase [Enzymatic activity/volume] in Serum or Plasma 11 U/L <32 [facility] Urea nitrogen [Mass/volume] in Serum or Plasma 17 mg/dL 6-20 [facility] Osmolality of Serum or Plasma by calculation 278 mosm/kg 275-300 [facility] Creatinine/Urea nitrogen [Mass Ratio] in Serum or Plasma 21 [facility] Bicarbonate [Moles/volume] in Serum 20 mmol/L 22-29 L [facility] Alanine aminotransferase [Enzymatic activity/volume] in Seru m or Plasma 9 U/L <33 [facility] Anion gap 3 in Serum or Plasma 11 mmol/L 8-15 [facility] Glomerular filtration rate/1.73 sq M pre dicted among non-blacks [Volume Rate/Area] in Serum or Plasma by Creatinine-based formula (MDRD) >6 0 [facility] Glomerular filtration rate/1.73 sq M pre dicted among blacks [Volume Rate/Area] in Serum or Plasma by Creatinine-based formula (MDRD) >60 [facility] ID Date Data Source [id number] 12/09/2020 06:13:56 AM EDT [facility] Name Value Range Interpretation Code Description Data Catrachita rce(s) Supporting Document(s) Phosphate [Mass/volume] in Serum or Plasma 4.0 mg/dL 2.5-4.5 [facility] ID Date Data Source [id number] 12/08/2020 11:46:10 PM EDT [facility] XR CHEST FRONTAL ONLY [id number] RESULTI nterpreted by:CATHY McelroyPROCEDURE INFORMATION: Exam: XR [...] rce(s) Supporting Document(s) ID Date Data Source [id number] 12/08/2020 05:45:01 PM EDT [facility] Name Value Range Interpretation Code Description Data Catrachita rce(s) Supporting Document(s) Ammonia [Moles/volume] in Plasma 52 umol/L 11-51 H [facility] ID Date Data Source [id number] 12/08/2020 05:20:17 AM EDT [facility] Name Value Range Interpretation Code Description Data Catrachita rce(s) Supporting Document(s) Leukocytes [#/volume] in Blood by Automated count 8.4 10*3/uL 4-10 [facility] Erythrocytes [#/volume] in Blood by Automated count 4.29 10*6/uL 4.1- 5.3 [facility] Hemoglobin [Mass/volume] in Blood 12.8 g/dL 11.5-15.5 [facility] Hematocrit [Volume Fraction] of Blood by Automated count 39.1 % 3 6-45 [facility] Erythrocyte mean corpuscular volume [Entitic volume] by Auto mated count 91.1 fL 80-96 [facility] Erythrocyte mean corpuscular hemoglobin [Entitic mass] by Automated count 29.9 pg 27-33 [facility] Erythrocyte mean corpuscular hemoglobin concentration [Mass/volume] by Automated count 32.8 g/dL 32.0-36.0 [facility] distribution width [Ratio] by Automated count 14.6 % 11.5-14.5 H [facility] Platelets [#/volume] in Blood by Automated count 264 10*3/uL 150-400 [facility] Differential cell count method - Blood [facility] Neutrophils/100 leukocytes in Blood by Automated count 63 % [facility] Lymphocytes/100 leukocytes in Blood by Automated count 25 % [facility] Monocytes/100 leukocytes in Blood by Automated count 8 % [facility] Eosinophils/100 leukocytes in Blood by Automated count 3 % [facility] Basophils/100 leukocytes in Blood by Automated count 1 % [facility] Neutrophils [#/volume] in Blood by Automated count 5.26 10*3/uL 1.8-7 .0 [facility] Lymphocytes [#/volume] in Blood by Automated count 2.10 10*3/uL 1.2-4 .0 [facility] Monocytes [#/volume] in Blood by Automated count 0.67 10*3/uL 0-0.8 [facility] Eosinophils [#/volume] in Blood by Automated count 0.27 10*3/uL 0-0.5 [facility] Basophils [#/volume] in Blood by Automated count 0.06 10*3/uL 0-0.2 [facility] Nucleated erythrocytes/100 leukocytes [Ratio] in Blood by Automated count 0 /100{WBCs} 0-0 [facility] ID Date Data Source [id number] 12/08/2020 05:37:58 AM [facility] Name Value Range Interpretation Code Description Data Catrachita rce(s) Supporting Document(s) Bicarbonate [Moles/volume] in Serum 24 mmol/L 22-29 [facility] Chloride [Moles/volume] in Serum or Plasma 105 mmol/L 98-107 [facility] Creatinine [Mass/volume] in Serum or Plasma 0.85 mg/dL 0.50-0.90 [facility] Glucose [Mass/volume] in Serum or Plasma 92 mg/dL 70-140 [facility] Potassium [Moles/volume] in Serum or Plasma 3.9 mmol/L 3.4-5.1 [facility] Sodium [Moles/volume] in Serum or Plasma 139 mmol/L 136-145 [facility] Urea nitrogen [Mass/volume] in Serum or Plasma 14 mg/dL 6-20 [facility] Anion gap 3 in Serum or Plasma 10 mmol/L 8-15 [facility] Osmolality of Serum or Plasma by calculation 287 mosm/kg 275-300 [facility] Creatinine/Urea nitrogen [Mass Ratio] in Serum or Plasma 17 [facility] Calcium [Mass/volume] in Serum or Plasma 8.5 mg/dL 8.6-10.0 L [facility] Glomerular filtration rate/1.73 sq M pre dicted among non-blacks [Volume Rate/Area] in Serum or Plasma by Creatinine-based formula (MDRD) 88 mL/min/1.73m2 >60 [facility] Glomerular filtration rate/1.73 sq M pre dicted among blacks [Volume Rate/Area] in Serum or Plasma by Creatinine-based formula (MDRD) >60 [facility] ID Date Data Source [id number] 12/08/2020 05:37:58 AM [facility] Name Value Range Interpretation Code Description Data Catrachita rce(s) Supporting Document(s) Magnesium [Mass/volume] in Serum or Plasma 1.8 mg/dL 1.6-2.6 [facility] ID Date Data Source [id number] 12/08/2020 05:37:58 AM EDT [facility] Name Value Range Interpretation Code Description Data Catrachita rce(s) Supporting Document(s) Phosphate [Mass/volume] in Serum or Plasma 3.9 mg/dL 2.5-4.5 [facility] ID Date Data Source [id number] 12/08/2020 06:18:32 PM EDT [facility] Name Value Range Interpretation Code Description Data Catrachita rce(s) Supporting Document(s) Hepatitis C virus Ab [Presence] in Serum or Plasma by Immuno assay Non Reactive [facility] No serological evidence of active infect ion. If recent exposure is suspected, test for HCV RNA. ID Date Data Source [id number] 12/13/2020 06:06:09 PM [facility] Name Value Range Interpretation Code Description Data Catrachita e(s) Supporting Document(s) [employer] review of results [facility] (NOTE)No informative autoantibodies were detected in this evaluation. However, a negative result does not exclude autoimmune encephalopathy, idiopathic or paraneoplastic. Sensitivity and specificity of antibody testing are enhanced by testing both serum and CSF. AMPA-R Ab CBA, S Negative [facility] (NOTE) ADDITIONAL INFO RMATION This test was developed and its performance characteristics determined by [facility] in a manner consistent with CLIA requirements. This test has not been cleared or approved by the U.S. Food and Drug Administration. Amphiphysin Ab [Titer] in Serum <1:240 [facility] (NOTE) ADDITIONAL INFO RMATION This test was developed and its performance characteristics determined by [facility] in a manner consistent with CLIA requirements. This test has not been cleared or approved by the U.S. Food and Drug Administration. Glial nuclear type 1 Ab [Titer] in Serum <1:240 [facility] (NOTE) ADDITIONAL INFO RMATION This test was developed and its performance characteristics determined by [facility] in a manner consistent with CLIA requirements. This test has not been cleared or approved by the U.S. Food and Drug Administration. Neuronal nuclear type 1 Ab [Titer] in Serum <1:240 [facility] Annotation comment [Interpretation] [facility] (NOTE) ADDITIONAL INFO RMATION This test was developed and its performance characteristics determined by [facility] in a manner consistent with CLIA requirements. This test has not been cleared or approved by the U.S. Food and Drug Administration. Neuronal nuclear type 2 Ab [Titer] in Serum by Immunofluorescence <1:240 [facility] (NOTE) ADDITIONAL INFO RMATION This test was developed and its performance characteristics determined by [facility] in a manner consistent with CLIA requirements. This test has not been cleared or approved by the U.S. Food and Drug Administration. Neuronal nuclear type 3 Ab [Titer] in Serum <1:240 [facility] (NOTE) ADDITIONAL INFO RMATION This test was developed and its performance characteristics determined by [facility] in a manner consistent with CLIA requirements. This test has not been cleared or approved by the U.S. Food and Drug Administration. CASPR2-IgG CBA, S Negative [facility] (NOTE) ADDITIONAL INFO RMATION This test was developed and its performance characteristics determined by [facility] in a manner consistent with CLIA requirements. This test has not been cleared or approved by the U.S. Food and Drug Administration. CV2 IgG Ab [Titer] in Serum <1:240 [facility] (NOTE) ADDITIONAL INFO RMATION This test was developed and its performance characteristics determined by [facility] in a manner consistent with CLIA requirements. This test has not been cleared or approved by the U.S. Food and Drug Administration. Dipeptidyl aminopeptidase-like protein 6 IgG Ab [Presence] in Serum or Plasma by Immunofluorescence Negative [facility] (NOTE) ADDITIONAL INFO RMATION This test was developed and its performance characteristics determined by [facility] in a manner consistent with CLIA requirements. This test has not been cleared or approved by the U.S. Food and Drug Administration. GABABR IgG Ab [Presence] in Serum or Plasma by Immunofluorescence [facility] (NOTE) ADDITIONAL INFO RMATION This test was developed and its performance characteristics determined by [facility] in a manner consistent with CLIA requirements. This test has not been cleared or approved by the U.S. Food and Drug Administration. Glutamate decarboxylase 65 IgG+IgM Ab [Moles/volume] i n Serum by ImmunoassayV 0.00 nmol/L <= 0.02 [facility] (NOTE) ADDITIONAL INFO RMATION This test was developed and its performance characteristics determined by [facility] in a manner consistent with CLIA requirements. This test has not been cleared or approved by the U.S. Food and Drug Administration. GFAP IFA, S Negative [facility] (NOTE) ADDITIONAL INFO RMATION This test was developed and its performance characteristics determined by [facility] in a manner consistent with CLIA requirements. This test has not been cleared or approved by the U.S. Food and Drug Administration. IgLON5 IFA, S Negative [facility] (NOTE) ADDITIONAL INFO RMATION This test was developed and its performance characteristics determined by [facility] in a manner consistent with CLIA requirements. This test has not been cleared or approved by the U.S. Food and Drug Administration. LGI1-IgG CBA, S [facility] (NOTE) ADDITIONAL INFO RMATION This test was developed and its performance characteristics determined by [facility] in a manner consistent with CLIA requirements. This test has not been cleared or approved by the U.S. Food and Drug Administration. mGluR1 Ab IFA, S [facility] (NOTE) ADDITIONAL INFO RMATION This test was developed and its performance characteristics determined by [facility] in a manner consistent with CLIA requirements. This test has not been cleared or approved by the U.S. Food and Drug Administration. NIF IFA, S [facility] (NOTE) ADDITIONAL INFO RMATION This test was developed and its performance characteristics determined by [facility] in a manner consistent with CLIA requirements. This test has not been cleared or approved by the U.S. Food and Drug Administration. NMDA-R Ab CBA, S [facility] (NOTE) ADDITIONAL INFO RMATION This test was developed and its performance characteristics determined by [facility] in a manner consistent with CLIA requirements. This test has not been cleared or approved by the U.S. Food and Drug Administration. Purkinje cells type 1 Ab [Titer] in Serum <1:240 [facility] (NOTE) ADDITIONAL INFO RMATION This test was developed and its performance characteristics determined by [facility] in a manner consistent with CLIA requirements. This test has not been cleared or approved by the U.S. Food and Drug Administration. Purkinje cells type 2 Ab [Titer] in Serum <1:240 [facility] (NOTE) ADDITIONAL INFO RMATION This test was developed and its performance characteristics determined by [facility] in a manner consistent with CLIA requirements. This test has not been cleared or approved by the U.S. Food and Drug Administration. Purkinje cells type Tr Ab [Titer] in Serum by Immunofluorescence <1:240 [facility] (NOTE) ADDITIONAL INFO RMATION This test was developed and its performance characteristics determined by [facility] in a manner consistent with CLIA requirements. This test has not been cleared or approved by the U.S. Food and Drug Administration.Test Performed by:[address] [id number] Director: Damien Hoff M.D. Ph.D.; CLIA# [id number] ID Date Data Source [id number] 12/07/2020 06:17:17 PM [facility] Value Range Interpretation Code Description Data Catrachita rce(s) Supporting Document(s) Glucose [Mass/volume] in Cerebral spinal fluid 67 mg/dL 40-70 [facility] ID Date Data Source [id number] 12/07/2020 06:17:17 PM [facility] Value Range Interpretation Code Description Data Catrachita rce(s) Supporting Document(s) Protein [Mass/volume] in Cerebral spinal fluid 37 mg/dl 15-45 [facility] ID Date Data Source [id number] 12/07/2020 07:16:50 PM [facility] Name Value Range Interpretation Code Description Data Catrachita rce(s) Supporting Document(s) Color of Cerebral spinal fluid [facility] Clarity of Cerebral spinal fluid [facility] Erythrocytes [#/volume] in Cerebral spinal fluid by Manual count 5 /u L <2 H [facility] Nucleated cells [#/volume] in Cerebral spinal fluid by Manual count <5 [facility] Microscopic observation [Identifier] in Cerebral spinal fluid [facility] Cell count and Differential panel - Cerebral spinal fluid [facility] ID Date Data Source [id number] 12/12/2020 04:07:52 PM [facility] Name Value Range Interpretation Code Description Data Catrachita rce(s) Supporting Document(s) Protein fractions.oligoclonal bands.intrathecal [Presence] in Se rum and CSF [facility] (NOTE)Zero (0) oligoclonal bands were ob [...] using Isoelectric Focusing(IEF) and immunoblotting methodology.Performed At: [address] [id number] Alvarez MD Ph:[phone] ID Date Data Source [id number] 12/13/2020 10:04:07 AM [facility] Name Value Range Interpretation Code Description Data Catrachita rce(s) Supporting Document(s) [employer] review of results [facility] (NOTE)No informative autoantibodies were detected in this evaluation. However, a negative result does not exclude autoimmune encephalopathy, idiopathic or paraneoplastic. Sensitivity and specificity of antibody testing are enhanced by testing both serum and CSF. AMPA-R Ab CBA, CSF Negative [facility] (NOTE) ADDITIONAL INFO RMATION This test was developed and its performance characteristics determined by [facility] in a manner consistent with CLIA requirements. This test has not been cleared or approved by the U.S. Food and Drug Administration. Amphiphysin Ab [Titer] in Cerebral spinal fluid by Immunofluorescen ce <1:2 [facility] (NOTE) ADDITIONAL INFO RMATION This test was developed and its performance characteristics determined by [facility] in a manner consistent with CLIA requirements. This test has not been cleared or approved by the U.S. Food and Drug Administration. Glial nuclear type 1 Ab [Titer] in Cerebral spinal fluid < 1:2 [facility] (NOTE) ADDITIONAL INFO RMATION This test was developed and its performance characteristics determined by [facility] in a manner consistent with CLIA requirements. This test has not been cleared or approved by the U.S. Food and Drug Administration. Neuronal nuclear type 1 Ab [Titer] in Ce rebral spinal fluid by Immunofluorescence <1:2 [facility] Annotation comment [Interpretation] [facility] (NOTE) ADDITIONAL INFO RMATION This test was developed and its performance characteristics determined by [facility] in a manner consistent with CLIA requirements. This test has not been cleared or approved by the U.S. Food and Drug Administration. Neuronal nuclear type 2 Ab [Titer] in Ce rebral spinal fluid by Immunofluorescence <1:2 [facility] (NOTE) ADDITIONAL INFO RMATION This test was developed and its performance characteristics determined by [facility] in a manner consistent with CLIA requirements. This test has not been cleared or approved by the U.S. Food and Drug Administration. Neuronal nuclear type 3 Ab [Titer] in Cerebral spinal fluid <1:2 [facility] (NOTE) ADDITIONAL INFO RMATION This test was developed and its performance characteristics determined by [facility] in a manner consistent with CLIA requirements. This test has not been cleared or approved by the U.S. Food and Drug Administration. CASPR2-IgG CBA, CSF Negative [facility] (NOTE) ADDITIONAL INFO RMATION This test was developed and its performance characteristics determined by [facility] in a manner consistent with CLIA requirements. This test has not been cleared or approved by the U.S. Food and Drug Administration. CV2 IgG Ab [Titer] in Cerebral spinal fluid <1:2 [facility] (NOTE) ADDITIONAL INFO RMATION This test was developed and its performance characteristics determined by [facility] in a manner consistent with CLIA requirements. This test has not been cleared or approved by the U.S. Food and Drug Administration. Dipeptidyl aminopeptidase-like protein 6 IgG Ab [Presence] in Cerebral spinal fluid by Immunofluorescence Negative [facility] (NOTE) ADDITIONAL INFO RMATION This test was developed and its performance characteristics determined by [facility] in a manner consistent with CLIA requirements. This test has not been cleared or approved by the U.S. Food and Drug Administration. GABABR IgG Ab [Presence] in Cerebral spinal fluid by Immunof luorescence Negative [facility] (NOTE) ADDITIONAL INFO RMATION This test was developed and its performance characteristics determined by [facility] in a manner consistent with CLIA requirements. This test has not been cleared or approved by the U.S. Food and Drug Administration. Glutamate decarboxylase 65 Ab [Moles/volume] in Cerebr al spinal fluid 0.00 nmol/L <= 0.02 [facility] (NOTE) ADDITIONAL INFO RMATION This test was developed and its performance characteristics determined by [facility] in a manner consistent with CLIA requirements. This test has not been cleared or approved by the U.S. Food and Drug Administration. GFAP IFA, CSF Negative [facility] (NOTE) ADDITIONAL INFO RMATION This test was developed and its performance characteristics determined by [facility] in a manner consistent with CLIA requirements. This test has not been cleared or approved by the U.S. Food and Drug Administration. IgLON5 IFA, CSF Negative [facility] (NOTE) ADDITIONAL INFO RMATION This test was developed and its performance characteristics determined by [facility] in a manner consistent with CLIA requirements. This test has not been cleared or approved by the U.S. Food and Drug Administration. LGI1-IgG CBA, CSF Negative [facility] (NOTE) ADDITIONAL INFO RMATION This test was developed and its performance characteristics determined by [facility] in a manner consistent with CLIA requirements. This test has not been cleared or approved by the U.S. Food and Drug Administration. mGluR1 Ab IFA, CSF Negative [facility] (NOTE) ADDITIONAL INFO RMATION This test was developed and its performance characteristics determined by [facility] in a manner consistent with CLIA requirements. This test has not been cleared or approved by the U.S. Food and Drug Administration. NIF IFA, CSF Negative [facility] (NOTE) ADDITIONAL INFO RMATION This test was developed and its performance characteristics determined by [facility] in a manner consistent with CLIA requirements. This test has not been cleared or approved by the U.S. Food and Drug Administration. NMDA-R Ab CBA, CSF Negative [facility] (NOTE) ADDITIONAL INFO RMATION This test was developed and its performance characteristics determined by [facility] in a manner consistent with CLIA requirements. This test has not been cleared or approved by the U.S. Food and Drug Administration. Purkinje cells type Tr Ab [Titer] in Cer ebral spinal fluid by Immunofluorescence <1:2 [facility] (NOTE) ADDITIONAL INFO RMATION This test was developed and its performance characteristics determined by [facility] in a manner consistent with CLIA requirements. This test has not been cleared or approved by the U.S. Food and Drug Administration. Purkinje cells type 1 Ab [Titer] in Cerebral spinal fluid <1:2 [facility] (NOTE) ADDITIONAL INFO RMATION This test was developed and its performance characteristics determined by [facility] in a manner consistent with CLIA requirements. This test has not been cleared or approved by the U.S. Food and Drug Administration. Purkinje cells type 2 Ab [Titer] in Cerebral spinal fluid <1:2 [facility] (NOTE) ADDITIONAL INFO RMATION This test was developed and its performance characteristics determined by [facility] in a manner consistent with CLIA requirements. This test has not been cleared or approved by the U.S. Food and Drug Administration.Test Performed by:[address] [id number] Director: Damien Hoff M.D. Ph.D.; CLIA# [id number] ID Date Data Source [id number] 12/12/2020 02:15:16 PM EDT [facility] Cmnt XXX-Imp : NoneGram Stn XXX : 1+WBC'S Seen.No organisms seenSpecimen concentrated prior to staining.Microorganism XXX Cult : No growth 5 days Name Value Range Interpretation Code Description Data Catrachita rce(s) Supporting Document(s) ID Date Data Source [id number] 12/07/2020 07:59:59 PM EDT [facility] Cmnt XXX-Imp : NoneCSF Panel : P [...] rce(s) Supporting Document(s) ID Date Data Source [id number] 12/07/2020 02:22:03 PM T [facility] Name Value Range Interpretation Code Description Data Catrachita rce(s) Supporting Document(s) [facility] QDHTOy1sMoVPKoDf74/ATDkuRNMbh6NlEQfuNGs2TYtiZGTvJ0HjWFF8iB1jFHQ1XYvWPvNcMyWaMqQ0 lbm [file] AgICAgICAgICAgICAgICAgICAgICAgICAgICAgICAg ICAgICAgICAgICAgICAgICAgICAgICAgICAgICAgICAgICAgICAgICAgICAgICAgICAgICAgICAgICAg ICAgDQogICAgICAgICAgICAgICAgICAgICAgICAgICAgICAgICAgICAgICAgICAgICAgICAgICAgICAg ICAgICAgICAgICAgICAgICAgICAgICAgICAgICAgIC AgICAgICAgICAgICAgDQogICAgICAgICAgICAgICAgICAgICAgICAgICAgICAgICAgICAgICAgICAgIC AgICAgICAgICAgICAgICAgICAgICAgICAgICAgICAgICAgICAgICAgICAgICAgICAgICAgICAgDQogIC AgICAgICAgICAgICAgICAgICAgICAgICAgICAgICAg ICAgICAgICAgICAgICAgICAgICAgICAgICAgICAgICAgICAgICAgICAgICAgICAgICAgICAgICAgICAg ICAgICAgDQogICAgICAgICAgICAgICAgICAgICAgICAgICAgICAgICAgICAgICAgICAgICAgICAgICAg ICAgICAgICAgICAgICAgICAgICAgICAgICAgICAgIC AgICAgICAgICAgICAgICAgDQogICAgICAgICAgICAgICAgICAgICAgICAgICAgICAgICAgICAgICAgIC AgICAgICAgICAgICAgICAgICAgICAgICAgICAgICAgICAgICAgICAgICAgICAgICAgICAgICAgICAgDQ ogICAgICAgICAgICAgICAgICAgICAgICAgICAgICAg ICAgICAgICAgICAgICAgICAgICAgICAgICAgICAgICAgICAgICAgICAgICAgICAgICAgICAgICAgICAg ICAgICAgICAgDQogICAgICAgICAgICAgICAgICAgICAgICAgICAgICAgICAgICAgICAgICAgICAgICAg ICAgICAgICAgICAgICAgICAgICAgICAgICAgICAgIC AgICAgICAgICAgICAgICAgICAgDQogICAgICAgICAgICAgICAgICAgICAgICAgICAgICAgICAgICAgIC AgICAgICAgICAgICAgICAgICAgICAgICAgICAgICAgICAgICAgICAgICAgICAgICAgICAgICAgICAgIC AgDQogICAgICAgICAgICAgICAgICAgICAgICAgICAg ICAgICAgICAgICAgICAgICAgICAgICAgICAgICAgICAgICAgICAgICAgICAgICAgICAgICAgICAgICAg VJNmYHFnAPLbKNJqWDe7V0smPUPeIMObQL2eAAl6Su3+BDbCJvYbUUY8lcDugN9QHF3vf4GeHUkhSFPj o8OhDFl2YY1NWJEhTUhrHX5GCWyugu0VDGPcJZZvmH FLq9tuLpLxCWM7CFVrCeodDA8JXYZgF0kvopMmJGBaEQPZCYsyUUQRXY7ZVrCfI5HctY43JIXBCz3+DQ kqodEgJexLKnL9FVKtr2NiNNb0EV8KVGMyOhhav6KlCJvgBRQHURijBA0RBKS1XTR5YEWuRv8UQJDmI9 57goFrKC8WAl6WXcMkAE0hyc5VFLvsZSTsPswBOrr6 HUytGI3TsDLdIVxDt80tuDj6kcHamALDKW5eETvtIOKCEOAguf4pP1WzHYrLL6ywSSXxGk0eDx4eSUHu YNGvDzL6UCPJIT5QGJOuDKMllKSlGZNrWNTLOU2WBDntXAG7MORrdjDucWVnKUwuPE2OMESohwGwJOJg MCBSDQo+Fl0VZH5gr6QjCWmjWRDqNW0sih7JJMyEZn DaF5L8yLLqK7U7RToeNf0EKZZdBQWcOQSxXDFOLAzqUT8YNR6rbtX5UP8NtUOkWSXxHKLvxVFhQCr3V3 5fzHLgGCnaHR1CGXI+Sharon+Uu5AZHTgRODwYLJtGiHvENVQAxCrV6QcN2NRj4XxN8XqPW52tTjfuaVbMF itIB9SOP2yYZNbYSVDWY4GkNDinV6xjaXqRbWaMSUH GiMjK65njIKnQFKaAMB6GVUvSn3BABLiK4QrbjZgyStqsxNeYFOxJFJEQA5YJBfakqBcsWFmxXzsOE58 hSgfPB8SQe4LXgIpXQ8wby6VuEDlPu1REMZpEO2JFUUgEELuANOuTFE5VVEsDiVqCXanDZLxNVOkWAD9 HJBkABNkMQ9NWqVxJPUsOUysFCIoVUFuKRAopf6ZLS NrYKMkPYoiAyUwYXKsKVDeIDotWDWoFTNfTFG2ADCqXLClJG8JAaHwUMOwXKE3XNBkCKIiDYZtbi0LWI KyQLGcMuasNYOaXHNoZHNuIQeoYREpRNB1EbD4YPDkTJJjUE4SMiPlMDGfFMJ6AmIwTHPbHMAsik2BUU PnOJDgDCTfIkLgQBMfTIHuVJmlENWhZJY3NkM0YQDx JVHcST1YNdJuEEBhFCB2NChiHRQySEFsex8HKHRkZNCcNld9HCFuHBDlLXVmDCyfWFItTUI2WZquNVGr IPDbKT4NDmUsHARoWFugKSegHDTgOOWovi6NXOJjVHWnQeR6QaZbFPRsYHDkQBljZSFmWWU7COU3HMMy QMRzRP9XZbTdYCWyGVmzHflvGEAcOAKvpu5KTFHxPJ BtIRNlAzDbAYDuTIGfEGc2ehQfcJAeVSu2UC2UE5XmbjJePJfWHv4Zk148XOM3JJSnJc3FQ3veBv1bSM FpSIUXVb3MLHb6GwM1LfDuRXe2NBRvLGEhXOJ5LRTwTvHiQsEgPNFdBLm+RCn5EEazKaFsMie0MSNrWB SqXVT2ZEZlAAX1RAXmULN2PC4mMPBGYr9+VXtxoYYreWovCBWOHyl1FwYCHbBtHA9WBPn= ID Date Data Source [id number] 12/07/2020 11:20:40 AM EDT [facility] Name Value Range Interpretation Code Description Data Catrachita rce(s) Supporting Document(s) ED Provider Note [facility] IJUKCe2mGbWDXvHa33/GSNnnNSXte0UxJRowMHn5MDimWROjB9WmATQ6tA9zBWT9KVmPLcGpZtDkGhS7 lbm [file] COMMODITY MANAGER/4kQpKeoFRRewLJRWHRq3bQXzbMwvv9Jw2pIelqc4QbdthptRFZLkZ4G1iVTVlOzGkZY5awVDRcADB [file] P2WEEdJwDwVez2MuQ2DZCbPjj+SO4xHQp+Jg8Wr9LuwnT4bnNgUCt8Tfn9QG8FAZKXM6ABSr== ID Date Data Source [id number] 12/07/2020 05:50:18 AM EDT [facility] Name Value Range Interpretation Code Description Data Catrachita rce(s) Supporting Document(s) Leukocytes [#/volume] in Blood by Automated count 7.9 10*3/uL 4-10 [facility] Erythrocytes [#/volume] in Blood by Automated count 4.46 10*6/uL 4.1- 5.3 [facility] Hemoglobin [Mass/volume] in Blood 12.9 g/dL 11.5-15.5 [facility] Hematocrit [Volume Fraction] of Blood by Automated count 40.6 % 3 6-45 [facility] Erythrocyte mean corpuscular volume [Entitic volume] by Auto mated count 91.1 fL 80-96 [facility] Erythrocyte mean corpuscular hemoglobin [Entitic mass] by Automated count 28.9 pg 27-33 [facility] Erythrocyte mean corpuscular hemoglobin concentration [Mass/volume] by Automated count 31.7 g/dL 32.0-[facility] width [Ratio] by Automated count 14.8 % 11.5-14.5 H [facility] Platelets [#/volume] in Blood by Automated count 284 10*3/uL 150-400 [facility] Differential cell count method - Blood [facility] Neutrophils/100 leukocytes in Blood by Automated count 57 % [facility] Lymphocytes/100 leukocytes in Blood by Automated count 30 % [facility] Monocytes/100 leukocytes in Blood by Automated count 9 % [facility] Eosinophils/100 leukocytes in Blood by Automated count 3 % [facility] Basophils/100 leukocytes in Blood by Automated count 1 % [facility] Neutrophils [#/volume] in Blood by Automated count 4.51 10*3/uL 1.8-7 .0 [facility] Lymphocytes [#/volume] in Blood by Automated count 2.35 10*3/uL 1.2-4 .0 [facility] Monocytes [#/volume] in Blood by Automated count 0.74 10*3/uL 0-0.8 [facility] Eosinophils [#/volume] in Blood by Automated count 0.23 10*3/uL 0-0.5 [facility] Basophils [#/volume] in Blood by Automated count 0.06 10*3/uL 0-0.2 [facility] Nucleated erythrocytes/100 leukocytes [Ratio] in Blood by Automated count 0 /100{WBCs} 0-0 [facility] ID Date Data Source [id number] 12/07/2020 06:02:53 AM EDT [facility] Name Value Range Interpretation Code Description Data Catrachita rce(s) Supporting Document(s) aPTT in Platelet poor plasma by Coagulation assay 31.2 s 24.0-33. 0 [facility] ID Date Data Source [id number] 12/07/2020 06:02:53 AM EDT [facility] Name Value Range Interpretation Code Description Data Catrachita rce(s) Supporting Document(s) Prothrombin time (PT) 13.5 s 11.6-14.0 [facility] INR in Platelet poor plasma by Coagulation assay 1.07 [facility] Routine intensity oral anticoagulation I NR is typically 2.0-3.0. Target INR must be clinically individualized. ID Date Data Source [id number] 12/07/2020 06:18:08 AM [facility] Name Value Range Interpretation Code Description Data Catrachita rce(s) Supporting Document(s) Magnesium [Mass/volume] in Serum or Plasma 1.8 mg/dL 1.6-2.6 [facility] ID Date Data Source [id number] 12/07/2020 06:18:08 AM [facility] Value Range Interpretation Code Description Data Catrachita rce(s) Supporting Document(s) Phosphate [Mass/volume] in Serum or Plasma 3.8 mg/dL 2.5-4.5 [facility] ID Date Data Source [id number] 12/07/2020 06:18:08 AM [facility] Value Range Interpretation Code Description Data Catrachita rce(s) Supporting Document(s) Bicarbonate [Moles/volume] in Serum 21 mmol/L 22-29 L [facility] Chloride [Moles/volume] in Serum or Plasma 108 mmol/L 98-107 H [facility] Creatinine [Mass/volume] in Serum or Plasma 0.90 mg/dL 0.50-0.90 [facility] Glucose [Mass/volume] in Serum or Plasma 96 mg/dL 70-140 [facility] Potassium [Moles/volume] in Serum or Plasma 4.0 mmol/L 3.4-5.1 [facility] Sodium [Moles/volume] in Serum or Plasma 140 mmol/L 136-145 [facility] Urea nitrogen [Mass/volume] in Serum or Plasma 15 mg/dL 6-20 [facility] Anion gap 3 in Serum or Plasma 11 mmol/L 8-15 [facility] Osmolality of Serum or Plasma by calculation 291 mosm/kg 275-300 [facility] Creatinine/Urea nitrogen [Mass Ratio] in Serum or Plasma 16 [facility] Calcium [Mass/volume] in Serum or Plasma 8.7 mg/dL 8.6-10.0 [facility] Glomerular filtration rate/1.73 sq M pre dicted among non-blacks [Volume Rate/Area] in Serum or Plasma by Creatinine-based formula (MDRD) 82 mL/min/1.73m2 >60 [facility] Glomerular filtration rate/1.73 sq M pre dicted among blacks [Volume Rate/Area] in Serum or Plasma by Creatinine-based formula (MDRD) >60 [facility] ID Date Data Source [id number] 12/06/2020 12:09:04 PM EDT [facility] Name Value Range Interpretation Code Description Data Catrachita rce(s) Supporting Document(s) Consultation [facility] IAPUPt9sMpYTMwMi39/VICkaHLWjh3LcQFmxGVq7SYwgLCUcN8MnAJD6nB9aHYP5YYdDUfXqCmIeKgH3 lbm [file] NyQSYvNyG1McMpKTQyUEyaLrqsCmv4WkA+MQ6uWBu+Ut6Pg8VbqaG4nxTvJBm8TnXtIXkmKFBPTf9P ID Date Data Source [id number] 12/06/2020 08:59:41 AM EDT [facility] MR BRAIN WITH AND WITHOUT CONTRAST [id number] FINAL RESULTInterpreted by:MELY Bruno HEAD WITH AND [...] Name Value Range Interpretation Code Description Data [facility](s) Supporting Document(s) ID Date Data Source [id number] 12/06/2020 06:19:13 AM [facility] Name Value Range Interpretation Code Description Data [facility](s) Supporting Document(s) Leukocytes [#/volume] in Blood by Automated count 7.2 10*3/uL 4-10 [facility] Erythrocytes [#/volume] in Blood by Automated count 4.36 10*6/uL 4.1- 5.3 [facility] Hemoglobin [Mass/volume] in Blood 12.7 g/dL 11.5-15.5 [facility] Hematocrit [Volume Fraction] of Blood by Automated count 39.4 % 3 6-45 [facility] Erythrocyte mean corpuscular volume [Entitic volume] by Auto mated count 90.5 fL 80-96 [facility] Erythrocyte mean corpuscular hemoglobin [Entitic mass] by Automated count 29.2 pg 27-33 [facility] Erythrocyte mean corpuscular hemoglobin concentration [Mass/volume] by Automated count 32.3 g/dL 32.0-36.0 [facility] width [Ratio] by Automated count 14.7 % 11.5-14.5 H [facility] Platelets [#/volume] in Blood by Automated count 271 10*3/uL 150-400 [facility] Differential cell count method - Blood [facility] Neutrophils/100 leukocytes in Blood by Automated count 59 % [facility] Lymphocytes/100 leukocytes in Blood by Automated count 28 % [facility] Monocytes/100 leukocytes in Blood by Automated count 9 % [facility] Eosinophils/100 leukocytes in Blood by Automated count 3 % [facility] Basophils/100 leukocytes in Blood by Automated count 1 % [facility] Neutrophils [#/volume] in Blood by Automated count 4.32 10*3/uL 1.8-7 .0 [facility] Lymphocytes [#/volume] in Blood by Automated count 2.01 10*3/uL 1.2-4 .0 [facility] Monocytes [#/volume] in Blood by Automated count 0.64 10*3/uL 0-0.8 [facility] Eosinophils [#/volume] in Blood by Automated count 0.21 10*3/uL 0-0.5 [facility] Basophils [#/volume] in Blood by Automated count 0.07 10*3/uL 0-0.2 [facility] Nucleated erythrocytes/100 leukocytes [Ratio] in Blood by Automated count 0 /100{WBCs} 0-0 [facility] ID Date Data Source [id number] 12/06/2020 06:43:38 AM [facility] Name Value Range Interpretation Code Description Data Catrachita rce(s) Supporting Document(s) Bicarbonate [Moles/volume] in Serum 23 mmol/L 22-29 [facility] Chloride [Moles/volume] in Serum or Plasma 106 mmol/L 98-107 [facility] Creatinine [Mass/volume] in Serum or Plasma 0.92 mg/dL 0.50-0.90 H [facility] Glucose [Mass/volume] in Serum or Plasma 102 mg/dL 70-140 [facility] Potassium [Moles/volume] in Serum or Plasma 3.9 mmol/L 3.4-5.1 [facility] Sodium [Moles/volume] in Serum or Plasma 138 mmol/L 136-145 [facility] Urea nitrogen [Mass/volume] in Serum or Plasma 16 mg/dL 6-20 [facility] Anion gap 3 in Serum or Plasma 10 mmol/L 8-15 [facility] Osmolality of Serum or Plasma by calculation 288 mosm/kg 275-300 [facility] Creatinine/Urea nitrogen [Mass Ratio] in Serum or Plasma 18 [facility] Calcium [Mass/volume] in Serum or Plasma 8.6 mg/dL 8.6-10.0 [facility] Glomerular filtration rate/1.73 sq M pre dicted among non-blacks [Volume Rate/Area] in Serum or Plasma by Creatinine-based formula (MDRD) 80 mL/min/1.73m2 >60 [facility] Glomerular filtration rate/1.73 sq M pre dicted among blacks [Volume Rate/Area] in Serum or Plasma by Creatinine-based formula (MDRD) >60 [facility] ID Date Data Source [id number] 12/06/2020 06:43:38 AM [facility] Name Value Range Interpretation Code Description Data Catrachita rce(s) Supporting Document(s) Phosphate [Mass/volume] in Serum or Plasma 3.7 mg/dL 2.5-4.5 [facility] ID Date Data Source [id number] 12/06/2020 06:43:[address] [facility] Value Range Interpretation Code Description Data Catrachita rce(s) Supporting Document(s) Magnesium [Mass/volume] in Serum or Plasma 1.8 mg/dL 1.6-2.6 [facility] ID Date Data Source [id number] 12/06/2020 06:43:[address] [facility] Value Range Interpretation Code Description Data Catrachita rce(s) Supporting Document(s) Thyrotropin [Units/volume] in Serum or Plasma 3.360 u[IU]/mL 0.270-4. 200 [facility] ID Date Data Source [id number] 12/05/2020 07:29:[address] [facility] Value Range Interpretation Code Description Data Catrachita rce(s) Supporting Document(s) [facility] MZXHKp2lLzNVQdZi50/NGIduTHYip3EgMQusGCb5XCmwVMFyS4YvZXV0jC2rFAQ3MFsCKtOxDmQdDtC8 lbm [file] gbkzP/0b9ktNg/tcXf6bM+Petar/Tt9bIva/m4bYyIMQ6j19+PfUW5u+Hc/XdEPfmDuzI9/R7m54d/9+kY/ +IG5Mz/+RlPxlr6vj0b5cJt+l/uzZs/CybkWGOeZI3 7s1gw6hHC1r1woyDdH0c3uesG4Rsn4Wr/N06Yupg+SP7z8trTP6oaEsllpa11ihnAu9DHIdm+Wmxv+rX w+/oO0ryicn89Hzztjjrk86ai1w+WM6f1tnhI0Zsb04r/K5+Nfmh+WT3l8voSV4inVdpiqb50dwiRj8W EXki+Wmxv+fHxJ6QJHCradM+b+K+S/csS8An/8 [file] SudPLaRXswJYpy6LmN9FFMkMHfzUZXAOK48Wfyqp+CBbTVW9/Private [employer] Operator+OWx5CCVFbeMS7c7VzE9o9qLGuTN [file] ICAgICAgICAgICAgICAgICAgICAgICAgICAgICAgIC ZcOFVfWJDhUDJxXIOwPKQjMMFaBYGnUYJdTAGoTESnAAEgGXFmHMYfIABlCVLoCTPcYPKhFKSnQP7YBO AgICAgICAgICAgICAgICAgICAgICAgICAgICAgICAgICAgICAgICAgICAgICAgICAgICAgICAgICAgIC AgICAgICAgICAgICAgICAgICAgICAgICAgICAgICAg OEPgNCVmTY5BKFYsWIDaSYKrIYNyEFClCHVtETOwEOGbXVOhWFVeVUYlORFsGWXyRZZaQYVlZNVsCYHj ZDJtTUBmPXDeCWStCAJgSLEnYUNoQSWwCHLbXACzQFDtCIWvNRHqVFEiYIOlVGDtFX0ZKCGxFYWuFWXo ICAgICAgICAgICAgICAgICAgICAgICAgICAgICAgIC AgICAgICAgICAgICAgICAgICAgICAgICAgICAgICAgICAgICAgICAgICAgICAgICAgICAgICAgICAgIA 0KICAgICAgICAgICAgICAgICAgICAgICAgICAgICAgICAgICAgICAgICAgICAgICAgICAgICAgICAgIC AgICAgICAgICAgICAgICAgICAgICAgICAgICAgICAg QBUcZLEpGCPzQN1DFOQxQDAcYHPnHMBcWGIuYKIvZMAlUULtUNZkVARvEKVeFZXdKCGdKMTqZAQiHOSs TJIoSQUmHTEeFEBcAWVfBGObPNLgSTJuYZAqZVOeGYWpQFFePAWbMHMsOXAdHCYjNPXgTY0RQOLaHJRh ICAgICAgICAgICAgICAgICAgICAgICAgICAgICAgIC AgICAgICAgICAgICAgICAgICAgICAgICAgICAgICAgICAgICAgICAgICAgICAgICAgICAgICAgICAgIC KjUC9NALKfBVJvXVBgECSuNTQsPHQiIAYzDLSkYWMhVUCyKIIhUVMeIGCjXYSjDOZvYUYlPLTsHJWzMZ AgICAgICAgICAgICAgICAgICAgICAgICAgICAgICAg LZZbQWQdVUHjCAXlCT5IPQRoJYSuVXDzZXJxZTSrWWNxANLzHNJiOSBiIOPnEIFwJSQjAMPeAWIbNVBx MXMmTFAdRJCiCMZkLTGkHQGcMTCuGJUcLGEdSWZzZNOuBIDbFFLpSIXdSPFdADFxBSLiGWVqBD3ZAT19 gSLnu7M2BYGtNN0rxzv/Kr4HOTjfkuAsdSQtRX1OPk KdYG4ddz3KXgMvTD0vem8JVZjYEuQlO7Q9rQVfXLJzGALKIuXgT03cYAqgYx88FDirTXTiBuRkQCj2Zt 4LArWfU3ukLWGeCgP9BKVwUmJ4AKFaFsV4LCWrKmFyDSYoZIKwULThPTEFKGQ7PLJwOsXrVDnjAY6Mo5 YrbMI9SIf+Lv8GML3xf6FjRZbsAMOqYQ3etm8ERWfM LhQcU2BtboX3QEE5AELoUk5YNPQlYJYwuQYmJTBfUNCQYpQgM5WymF41RJEWTs6+DQplbmRvYmoNCjM5 VVQmb9QdNSo8YN5STTOoZRd4mOBzZ28bz2WfcCViNehnQ9YxpYIFFlCquAeoNZJUVwOYDZZ0TFphVTDo DaElXPPqLrnyCbLZYNeSFmJiQ5Hnj7JwGpV9ZBRvOq RdPXdqLCKeZdH2ES64zLaqZV8BTUTkLLLsOY57EAC7JDEpXj3PMd2NYwOzQD8vpq5FLFNsYMGnMufEUd s2IAjuXD2VvEJbU2SseQVlb2kRSgWcQ1LWKCN0MRWaDa3YOKVnWyIdTLPxWVjbEN7tLGZqNAEXkWehoe J4TD6LIH6ijmJfLJ8TSuNdBc9lPj1YIoLwI6PjD5Qm VEBuPZQHIDwpFO4ZXCgxYJ7gIK7Ol5CSqNFxrK1ztt5HGLFeDMUwNthcro3IZnxsM4E6dAnhLBOiJuok DIMQCFuyJY4JJVSpYPN9BNDrQsPlERVYTmIcR08qMZ7US4Daj76pGvX5YTAaYpYcEEjkAP27eUeklbHc yMGbiPtsBZ4JFt8+DQplbmRvYmoNCnhyZWYNCjAgND HBGuNoWBCiZUSiPRPoPgY8WuTxPn4LZAPgZQCqECZiPjKuJYFnJHXoEEacMJTiLUM7Jfi6TYDlSHEcNF 7BCgUqVZDsHZMjKOOaAZImSLFwzc1CGAJkJSFtNUB1FvCsMHXlRCQiETrqCAWhGYZ6TrFqSBCrPKMzEZ 2NDzSxYGFlTSL4QrinKYVoMPOjqf0CKQXfFHYiHzHb DrUtAGIfXGXpTShcNSJsRAD9SkObILDyCIMtOT6JMeGsVKGpSFSuBNAuXWVkKEMund9HHAJdLEAnNDWx PLPsGUFiEKFyBRbzCUWzRIJ5YIW0BWUuXQClQX0YCfTuYWFxIAS6MiXfAEGnNAUlhr0PBVPyXICoGugk MXLrOGGhZWVjREiaRWWnHYB9QOWaOUHhUNZlSL9ZOb EoLZLgKFeiLVbtELBeQTSjvt5UMQRnJLMlVLTiSuTlLJNkJMZhAFgdSSVfYYCdWzrdGXYrAPXlPV4PLz PlPPRpTpF8RUEjZJUlQKAjlw3SHAQlPEGhYRM5VoCtVSMpZDIxRQykVJUbLBEpDeDcPARjIIWgOC8EXg KjTKLpHpK2QhVdHPKqVUIhmt7OWWCrRNZpIsBuSqPe JPDhWHTbKTwjWWHkHXVgSPvdPDJmAPVvXN8CHaMxBNHxQzMaFakdDWVxVWMhiu9VWTGbMTAoCxZ9NcVx BAAzNSUhQPpoKCGtADU4FyDvRCPkHZTgGM3DSdTpRKFrLuM3NiUaPJKtYMIwnr5LSZFdMOVaAZdsUVIh HKPbEXHiBPdhUAIwNCZ0Khd4RTQoJQPgMW3NFfRcGH RgQdQ9SgcdILJtAAZlvf4HNIKwFLEqNcD5FGOgTLCsJAAgIBqpNDTkXUX6CSP4SMBuFDLgCF8GCgNeND NaYfu8XlJvVLHkVRRytl4OZYRyQQDkLjn4YGPfWSYcDTZcBYgkGIBiGXX2UgAvLWNqHLLaGZ7YBhDeUZ ZcHekeDmJmZLAoGDHivi8LFGIlBJFoCJyoDXHjDACp PXHaSFwjUUVpRYPdGst1ADXtPOSrKC1HEnIjHQJiBKOwSXzfHBRtZXSriz4CDJFjRZO4JGDgGHKvVKAi ALVlELv4ulZmaXBaCXj5KW5HL5LqeqXmJAEAYc5Bl769IKJlRCCwHk2LS7ggCq7yNCPtTDOEFt8ZUJu1 DvKhHGSvUIA2UNIbIIowRqDsVVefNJtuDTW9OOKzCW Y+GSh6QgW1UIZ6VeefCLM5STYfUkF9HETsFYW9DgmxIDJaOw7zXZCOEv4+DQpzdGFydHhyZWYNCjQwNz C1SVhnAAKQWt8B ID Date Data Source [id number] 12/05/2020 08:33:17 AM EDT [facility] Name Value Range Interpretation Code Description Data Catrachita rce(s) Supporting Document(s) [facility] ospital LRRCMp7lEdRGJfHts4NrXuUyEBKeOA8qczo6Z8B7bBXnY8DjcOHqj5dgI2PuT9HnQGUhFPMUSY6GuYIa jb2 [file] D68VbjGZSIoK0FfVdVcgmP+HwYAiFG8LBKPJHAQPNY4VCUATDQKGNK5IMLHAHACsA1SyOJVTZALnC2C4 isSgXXRFZ293NM4LP291LeoTRJRrAWUIIMShgeNLHXTCxv2KgPh0clxqjEm22A4J4XBT/cREPzHxvnM6 bZaifxSLDSZXPrrOdGEbSTFgfZXSJUREjXpO2BYP/c LQLxYQB6z9GbL9iJX/MdFPTPQTE/3VDF2s4N6K1BIx/kO5VNMvQfX4wDtuHfVMdILjlw6D5BvP06OKiq LuW5pQkL6OnuoB05wAbhRloLdPevfNj2h0Upy7Iw2M7viwyQ9BDW5Yx2BF3BNTz4B5eGVkdISexN3Nmb 5P7ZOxhTlVvXIEQtQkMGIYSAS9NNpAf4GBNXHTffxZ 15stsfJOvWm05hBZb1Af/cQ3+NEKqNrJbhd2cS3XfqDETWXetnF8zRG8rgG+5dwf3u0Y42kpR+8GiSSR RHFLrc8wbW4D6LoJoa3ooALLMh1DZEFyJLOQVSYMjsDS4by3AEt0E+6gsaeR5H35pK7M32E0KEZR894v rJlqDuf/1kzrPXH/c/XzS3aeH532OD+tvXPA/i+QCb 49gNV+8leLFu1sa0/hn/Ozgktk6KrL4++Kl0Kf9d+j+w8C7luvvgvnmNZHErg0AX/4ir0A25sQkcW0h4 PvHKy/O/5XtTwnQjv5TS12n/4zc7VbFWi/mx/xxKynH68dIKY7OqbiLe+1g/ubDs8rQ28v3Fe7RvHbns Cgqo8onn5Xkt8YuhDmVCNdzo023i9wciGZRg0Chuvx +n0r1P3MKIY5fmE57yRG7NwK9zkS7HsTCWzZ8DooCG8izkBCmPUp2h+4K7hKdvYuL+F8hgAtXKY+YqGf SBitUtuCfBH2ltIxMUx6PdbinQavkDTdnQOyeMadaDJ7EnGnQZiqlWgJdXPn9NcSfMgAFmEkgUBDrIBQ zI1lcK+tOk+cXn/yxDtsnDzxDRJJIikkBeTkiV+it admin [file] GP2dS02020N8Q597ERb8khRzT8r84rNs95B8vm0H0D QLY1y7hnQTu0wouKhl6+0m3pVnhVl5RYq8fVIh07eUEozrgMoEwqNh76bTNaRJEGV7Zomg1S28BXp9By 3ZBpQ3GR47iJoSNDxzaiVdUarIfZZ4wyunZloyOmd3LU1NPIMovLCd3XubhZgEJQHHHUj2Ba3KYENwWS +nXodSZrTPWBNgXWV5XXjPmTJZyMFP14U9z6oJENHV MUM3YvDddNEFWb5YEGUMllYfXCtCRo2b5MkkOh2aHaa66+Y1AT8VIMWVtBfHIz+9pvkjUv6YEO0LI8ov V6wzBtJzdaDS4EFmqW76J1N6nF4/8kgfXmmzMyhgWfeaJbdeOlq7ecd+nI16svB1orEhG8Rs6KXJ5Gq2 irksOdhenEcEhcJ0jkxMjw1B1XT3mG5Zr5QgHeo2CA PMNkjIcCxQeAtUI0dqS+ckMN6J2EtGIThjPhZDIgMRpo7ALL224wexArwMDMUY7AADIFb2xChDfq/0Wd UoNkDt2wGnBZD4JKBlvxzkTR9XFLLgC/CoNfEFi0AGPMDvwkRT2KOAdSJOwhTdNcj8rxOaAkFUjTOfIm 6WBp/9RL9WNU2rPqC5rJiU2TaR5qsPEtmApbIdMASb JfhvNVgbPGozz8C00cyld23cSw9E4GND+1CyHku+XHL9wvAxkvhiRj7H9gF3PGzpNm4Q3kVR42IhurJQ B4zjMskiXIT5a1Bd9jxn7OoSIDQq1vnTD0j4AGQVqssnm16Ajk3pKGa2rkv6335e225YtTquwkFq1qee 1udr2gbv0tjf0pwd6lrg6aqkciElisOyckOekuTvsf AuhyTiriXyeQc0iFviTwJnmZ4mT67641Jpa7iByt+8/c8h6T9n9u00k3h3F94zxlIbVFUQ/u3jD19/+f 4f3r74/P2nX7/7ZL38E8fAKs//7OA2LZNpY+X9uehq79+k/tmquzsk12xT4TlsyR+u8ZE3/v52Skt8/u tv3v/27Ztff/3h4w/y1i658hMCN/x9y6ps2w/+m3df ff35h9/+/N1Xv/r402/e3t6++vKbD5+/f/w13haXY32+7jcff/GTBt3+7S7JB14h3fte3sI+2ufvv/n6 0lzRfariy7/9jZ/dc/D9s19/+fXXn//oh8vqN8x9ik8jJ18e+Lqpd++/+Psms255q3ipU/eAf8s980iw fvXpu6++uO/03Sf//BBu8bkl5+yfvXv/9smXv/r1x1 +9+/Tt3z7/5Vt9j4pa/+ovHv5Yxz3PCvogwh/jH28aJrN5ga4/+fb15//8/vN/ehnu/Bc3Yr19+P0/v/ sbv7/Hsvv3n/z5h//441++/+4Pb//+32+/+eOf/vTtX/7y3bd/+oe3T7/94Y/f/spea65x06t///bnH9 7GL8R+lS5rzhNhGkQjVt3MV2p7uf0dN2V//vtf/Ccv r9JIZLdN/k52pDm8RUnYnjga/w/g/hU7yFMD6p5DdIjlVw7ki/4Iiczf2SOgLa+irGc6Eq/nz3rJkzc+ ft1y7le+wVff/cd3L/fblioy9g6csxd/9DcIep1+++u1de2ivWoCu2rEh1o/lpYtY/TcK6J0Nzpud13l 38MxBE8QO2aFwuOgkcjcj/7x7S/f/rf8Ige7n604v2 w594++4zLe6bGK93/PfsBff/X2xx/+67u//J+/uvk4/RRkp21f1/48xeunZz/Wa6752nhs/vfr3v/45x 9+evqdb+6ds49WJQn/moaXs180BF/5fvH0Pn+F9fmjs+3h3Tpzn/vXT27+jdkDtR87S1Mc2kVZuo6bg6 7+4e3b//vdf/71i/M8t0t+/uUnH36+d9L/9j1uc3E/ /+V3f/+TX5/n8E/fff/bz311fWsH5Y++/d+///Y///luLh25e4Z47x/+8NP/1/ty/enf//q/jxG/+vOf v//oszZ+8oPT3i/+/OpDjMJN9blLXPru/MN3v/+fP/zx96/7++umBWF5bD61xY/46X/+16vP/eGjj3/1 QW69w5Dt41xa1Xbi/o/v3uTtz//kLykX3lCSlxk22/ cuc8sm9w9s+WLS4u2HW6/3/h7WXj+u+WoP3R+98cdwV8Fe067++fKb96/ouizb0tqu2+r2vq5Gtd9yot cwbkShvBBtFC0FBS5mr8CwSvO6HPKve0ElTAqcQFz1aYXzRMpnabNwf5UxokasD3Wkj4LzAvHeXKOoDh XoNww2CFKbYpD9yTBnXuJbPKPtW1TdPCLsKdO6MfZv RYMANJ9KPHVyuhXdEnIkOFS+JsXaCL8lkdayBAFid2RvXGnwIIqiNHBiQ0B2uMpfLCOyP0BppJ57GLGv X6MgziF8HRB1TXOaJkUvBLTiwOBcUHCxXRV+EjCtYX1snmudHCMwn9IlCAiaJQJ5wJ0kRPrYUQDHRLxE MIqvSzD5r87ravONLIJmDNTeQW2McpOxeTtrvoMfpL WuVJW2LpUaADO7ZZEoISNqFNDKVHSeEJIyBSXwORTqW1FtrVdjCXbGUCGADInXZJyqFmRsz1Q4ZYZotn WLSGUFB65bZVcICmBDOCdgAMS0CKMfRHfmS2P6IyelA1KpGA0GO1AjISHcOGJUSUMcklIdIT4DnsLigO 7nHCiZPAQDDEvHTFowYdZ2u31iwlQWXXAmPUFsAVyi ZIUaHJShMGMcCCJgCYArORSgFAUvEO3HZ1XwIRBbFCDNHUL6p5XiCSGkbvximqnjGw7cgjBgAon+Pgox QQGsb3YiAMnsX8J0cIKzM7WpA7GzAM0ZrGXfNSsnMFCrJRRhKUVbQ633mtNfDN1+LX1eu4HcLqzbMUWO UJIdAKRcFQVrOCX3SkQiDAKgTVDcCMMdDoM3MuAyIb RPIARjJNX4EVM6VMYnKIIuNAUpURspZXCoVAX6ZdJbNKFcPQXeVF6jXmIcMHWuCiZzHjFbTPOeOLAdac QFWDZgBRRbFIWmDAM1IRHpZZIiVRanHZZfINBkUHW0BEXfGJJbEM5qDoXeLXRhPLNtFzqtTZEaDEFauf TFBEPyZDOpBSI8TcGnKXZyWREsBGsuWEInEUHrXzp9 LENnEPQoYS8hZaMbHHRzHQX9ETbmWICnCCIcviPGFENkQARdVUUfOtWbJOHjYGViZUecXDCvQZPpCyVu KHIuEZVkLG5fExPvMOMhRNS9FYPuAMZuTFEmbkUFWKYqIQMqXNp2LGIwJHUyBCRjUHevGVDhIWPkRWL2 GQOlPEIcNJ0tRcEoHXZkMOKmXRDrIYNxGQBsnfUXGZ FhGZZaACL1GCKdIYUxXQPbJPmdMKRfAHOcBfl7YZMuCJPhRW6eItVfFSViMIQ0LENzTXCoARDyyfUYJU TaQGF4YAB8ZjNiYOZqSRTwAUzcQNPsBDUhIuA0KTNpKRHaSB6pFpBdUVDoMIX1GjXyJURvDJHxrdIVBN IlNBJrCJO9XdMkSRAbMYYjXYeiLGJbVKBoWKObCTP5 XEE6KUJuOaCzATrrNTAJQVgBE1ZekwPxStMAF2zdEr0rDxQpYLJHZ6Ren9GeMNNcNGNDKn6+GyL4VDC0 lJJqOzg1NUD8FRcdIPXNOm== ID Date Data Source [id number] 12/05/2020 06:18:08 AM [facility] Name Value Range Interpretation Code Description Data Catrachita rce(s) Supporting Document(s) Folate [Mass/volume] in Serum or Plasma 15.00 ng/mL >4.77 [facility] ID Date Data Source [id number] 12/05/2020 05:41:21 AM [facility] Name Value Range Interpretation Code Description Data Catrachita rce(s) Supporting Document(s) Leukocytes [#/volume] in Blood by Automated count 7.1 10*3/uL 4-10 [facility] Erythrocytes [#/volume] in Blood by Automated count 4.15 10*6/uL 4.1- 5.3 [facility] Hemoglobin [Mass/volume] in Blood 12.1 g/dL 11.5-15.5 [facility] Hematocrit [Volume Fraction] of Blood by Automated count 37.5 % 3 6-45 [facility] Erythrocyte mean corpuscular volume [Entitic volume] by Auto mated count 90.4 fL 80-96 [facility] Erythrocyte mean corpuscular hemoglobin [Entitic mass] by Automated count 29.2 pg 27-33 [facility] Erythrocyte mean corpuscular hemoglobin concentration [Mass/volume] by Automated count 32.3 g/dL [facility].0[facility] width [Ratio] by Automated count 15.0 % 11.5-14.5 H [facility] Platelets [#/volume] in Blood by Automated count 258 10*3/uL 150-400 [facility] Differential cell count method - Blood [facility] Neutrophils/100 leukocytes in Blood by Automated count 61 % [facility] Lymphocytes/100 leukocytes in Blood by Automated count 24 % [facility] Monocytes/100 leukocytes in Blood by Automated count 11 % [facility] Eosinophils/100 leukocytes in Blood by Automated count 3 % [facility] Basophils/100 leukocytes in Blood by Automated count 1 % [facility] Neutrophils [#/volume] in Blood by Automated count 4.42 10*3/uL 1.8-7 .0 [facility] Lymphocytes [#/volume] in Blood by Automated count 1.74 10*3/uL 1.2-4 .0 [facility] Monocytes [#/volume] in Blood by Automated count 0.76 10*3/uL 0-0.8 [facility] Eosinophils [#/volume] in Blood by Automated count 0.18 10*3/uL 0-0.5 [facility] Basophils [#/volume] in Blood by Automated count 0.05 10*3/uL 0-0.2 [facility] Nucleated erythrocytes/100 leukocytes [Ratio] in Blood by Automated count 0 /100{WBCs} 0-0 [facility] ID Date Data Source [id number] 12/05/2020 06:14:18 AM EDT [facility] Name Value Range Interpretation Code Description Data Catrachita rce(s) Supporting Document(s) Bicarbonate [Moles/volume] in Serum 22 mmol/L 22-29 [facility] Chloride [Moles/volume] in Serum or Plasma 101 mmol/L 98-107 [facility] Creatinine [Mass/volume] in Serum or Plasma 0.86 mg/dL 0.50-0.90 [facility] Glucose [Mass/volume] in Serum or Plasma 81 mg/dL 70-140 [facility] Potassium [Moles/volume] in Serum or Plasma 3.7 mmol/L 3.4-5.1 [facility] Hemolyzed Sodium [Moles/volume] in Serum or Plasma 133 mmol/L 136-145 L [facility] Urea nitrogen [Mass/volume] in Serum or Plasma 13 mg/dL 6-20 [facility] Anion gap 3 in Serum or Plasma 10 mmol/L 8-15 [facility] Osmolality of Serum or Plasma by calculation 275 mosm/kg 275-300 [facility] Creatinine/Urea nitrogen [Mass Ratio] in Serum or Plasma 16 [facility] Calcium [Mass/volume] in Serum or Plasma 8.7 mg/dL 8.6-10.0 [facility] Glomerular filtration rate/1.73 sq M pre dicted among non-blacks [Volume Rate/Area] in Serum or Plasma by Creatinine-based formula (MDRD) 87 mL/min/1.73m2 >60 [facility] Glomerular filtration rate/1.73 sq M pre dicted among blacks [Volume Rate/Area] in Serum or Plasma by Creatinine-based formula (MDRD) >60 [facility] ID Date Data Source [id number] 12/05/2020 06:14:18 AM EDT [facility] Name Value Range Interpretation Code Description Data Catrachita rce(s) Supporting Document(s) Magnesium [Mass/volume] in Serum or Plasma 1.9 mg/dL 1.6-2.6 [facility] ID Date Data Source [id number] 12/05/2020 06:14:18 AM EDT [facility] Name Value Range Interpretation Code Description Data Catrachita rce(s) Supporting Document(s) Phosphate [Mass/volume] in Serum or Plasma 3.9 mg/dL 2.5-4.5 [facility] ID Date Data Source [id number] 12/05/2020 01:16:36 AM EDT [facility] Name Value Range Interpretation Code Description Data Catrachita rce(s) Supporting Document(s) History and Physical [facility] CWRKBc2eXtXGGrXw24/PSDceVNCvt2FjLDmzICo6MOhhBSVdA4IxELJ7rY6wBCR3ZWrNKgAsUaOrUuE7 lbm [file] 4hcQue1f1g+r1pLOHwbupK0erw4Byz9wtrb//pSOWOjXfJ6/hD5AsaBcch+qFqy5PZ/nL6D/peLM9+COMMODITY MANAGER 7HvlT4/czrePDzK7fQQ/Xo5Z7W5T9yjQlHootUyotZ ez+8x35I/gdSv9hOfl+898R/9i6ziTN2a1k//Md+TH0q0X6f/yxxeYpgAXOXbNfGyC7z/ruYHp847DQ9 +lL8P4liarj+5zoQ1IzwD0A0k//ujeiddfqTez/8L340/G8MPoO8XU9+ZM+WsVw4RqApR9s3gq7Fy9i+ LV1+rN5L7w/bpskgewe95bYU8K781/wgsv4ejfcmI/ 7G69X5p67VgD8vE4AUu829kxObJ2wqV+Or9JGI32Jbt3Ev1F2Gk+H75073Cde4Ko3W/mO/UU1014/kq9 [file] guzman+U6+/9N2/J+2y3/zqJ2B0pU4o/Vbjvd0iDmYysJY +PgDdApdFgI7CDSpVoX8E/sd3M/BBCbki3mdBQEhscv+Yl2a8/wKBiwHFN6zgP8actAiQWj9DGY7Cxio 2NW814vh0g0EA3pe6L9c0/b6HO/UwPwgF11CrT7vSoWdze7FF+yRsSb3ootoI9T0l26+z3tlA9upAX8f 0B0itQEX+br1W+Jb8VBP0h+Z64PYYXydWlk6MMs8xJ 1xc5NM1cR0wLlU2+NM5lKKc9mlzuQ0wuF26L58gkjyCAk6tQgz8aK+the6QOnbkviXzg0X2RDfax7Ypg qDxKb5sTiP7vDlc1SBiyfmT84lw0W6I5e8Co+P1leZyaktsRnx61q/hu/WVOdEMaxZn6tMlN38ld5d79 dT+0uzoMc/IJ+6+8S8neaEzwTiY2kLTAlicNFhMoNJ X8F6r1MghHVAnnAEMM4yUBWrIU05tCbLjfa9Ea7e2oZh0J8PuJAIxOjD13mlPl+FfvIT+AFNh/8NUANr wtLxBt3vyRAvae35qczxO8waH9adiKjkc1Rq9Tgcy8xYKS0iv2jjglIodQeSfDA+MdLtstfvvK/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 [file] ICAgICAgICAgICAgICAgICAgICAgICAgICAgICAgICAgICAgICAgICAgICAgICAgICAgICAgICAgICAg ICAgICAgICAgICAgICAgICAgICAgDQogICAgICAgIC AgICAgICAgICAgICAgICAgICAgICAgICAgICAgICAgICAgICAgICAgICAgICAgICAgICAgICAgICAgIC AgICAgICAgICAgICAgICAgICAgICAgICAgICAgICAgDQogICAgICAgICAgICAgICAgICAgICAgICAgIC AgICAgICAgICAgICAgICAgICAgICAgICAgICAgICAg ICAgICAgICAgICAgICAgICAgICAgICAgICAgICAgICAgICAgICAgICAgDQogICAgICAgICAgICAgICAg ICAgICAgICAgICAgICAgICAgICAgICAgICAgICAgICAgICAgICAgICAgICAgICAgICAgICAgICAgICAg ICAgICAgICAgICAgICAgICAgICAgICAgDQogICAgIC AgICAgICAgICAgICAgICAgICAgICAgICAgICAgICAgICAgICAgICAgICAgICAgICAgICAgICAgICAgIC AgICAgICAgICAgICAgICAgICAgICAgICAgICAgICAgICAgDQogICAgICAgICAgICAgICAgICAgICAgIC AgICAgICAgICAgICAgICAgICAgICAgICAgICAgICAg ICAgICAgICAgICAgICAgICAgICAgICAgICAgICAgICAgICAgICAgICAgICAgDQogICAgICAgICAgICAg ICAgICAgICAgICAgICAgICAgICAgICAgICAgICAgICAgICAgICAgICAgICAgICAgICAgICAgICAgICAg ICAgICAgICAgICAgICAgICAgICAgICAgICAgDQogIC AgICAgICAgICAgICAgICAgICAgICAgICAgICAgICAgICAgICAgICAgICAgICAgICAgICAgICAgICAgIC AgICAgICAgICAgICAgICAgICAgICAgICAgICAgICAgICAgICAgDQogICAgICAgICAgICAgICAgICAgIC AgICAgICAgICAgICAgICAgICAgICAgICAgICAgICAg ICAgICAgICAgICAgICAgICAgICAgICAgICAgICAgICAgICAgICAgICAgICAgICAgDQogICAgICAgICAg ICAgICAgICAgICAgICAgICAgICAgICAgICAgICAgICAgICAgICAgICAgICAgICAgICAgICAgICAgICAg ICAgICAgICAgICAgICAgICAgICAgICAgICAgICAgDQ c1G7lzPLAxDVKeWN1dKQh8Mb1+BYeUKpYgPAB6ldTidZ6JSJ8dh6DiXRlbSPFbr6DjLAd9KF0VYXFqXI nfVI0LGJxfql9YOYCsEHZsdBCEh2ktHaPoONW3CWDgBhnyCB4JXACyH2mhatGaQYTsQGSXNDfgYFOGCO fjELSMEPTeLHVnPhZkUxVzSEEzTJLtNJTFQV8OSxEo X7JmdA03PGXXDg1+VFedxnAcYqtKNjWbIMDmq6RqFJd9OG7ZXVYbAipox4OqTeShJCVEOLxdHY5VSSM9 TALqSAAfWg5HPZAzO544qiDwOM3BGq3PBqZaTI8dwb8YTiWdIQShSlhGFyp7BFjrZY6GnGSzNMrEGiSx YhwhZcl6XS2oBPRclGKxlYQsMNnaGNFwDONlTm5cJm 2wUENxEVR8BdYlMSEWCX9FGQLgUBXvxMOoTDSvVJLKRG3FPErpZBQ4TKKgawKxnYNmBAmgSG9DZIMnyk QgMzIgMCBSDQo+Km1NOU0rg3MpCBlgJHUlFC4qjx9FNGiSOrIaW8G1zAIeP5B4SXgeFi3IUKOpGLYsEx CuSGTLPFdaQH0YWF1rvqT2XN9YwRRyGNBdPQTauLUs NBq9I69rwKTlWUptYD4RCYN+Sharon+Zi0QVZOlZNUsJUTbQgZlWJZKWqSjR2WiT6KDn3HcC9AaAM03mCoy obJgIRikHM2WRY0tMKSvMUENDU1SaVArrK7etuDqXhUzGSJTVxSiP62pxREzODAjMJPmECUiKv7AWFDp H2JtdbEdnFuvogGmCIKuPRSLTW2EQNqvryAmxWWtoG xtBU60uCnmCJ1PHi2GGoRgXO7tcd7MiFGlRu6ANWGzSG3ASYEgJLXsFNRzDVH0WLXePvIlIQgpMXWtKB QlJJF5LAFmEIKwIJ3RZjRiDEEnFvJpVsTySYPmOLGxvm8MRDWmDTHdQPE8HMExMXBbYQAfTXjeVSQtFM VoAVA4JIZmODNhVV8ABuCzLVAvFWEaDzGlHYFcVZIs ht4CNMXdLGVxZIEtOQKiFRIcVJMvAIyzRRViGGV0OMm6GYCqNQMmEW5OVnRzZQMuPQktYRByPKAcJZTe qi8DPYBsVUHvVRLkUnSxZYEzCWVaOMqlDKUoCCUcOlI1FMGaGQNeEC4LWkBoAQNoEGE3MwSzTIPbRCOl lg0IUVZnVELyOWR8LlJpXWPhDZVlZLfhNFEgDSX4GV WwKOPaGCDeYY5NCnMvMYFvPIphQxGpLFPxVHBikj4VPFZfOJTyXUpwQZXnAMOzXTCmAHejXFCnLWQpAE X5WHHjXNPdOH5LSfYaPXKaEuI4RsPnLBAmRHAmcc6GJHSkOCSpNZV0RfJjCRIjZMVjNVjbUVEiYPMuUf A7YJVuQVLtVJ3PZxYnHDGlPlRiYETbLBMjYPUxem8P XUGkOSMcVmVjJdUyTGEoQBDoLRscXYUuOTNuOvD1ANKhPECzDE8QXdNiHLOlYyPcLXFqDGSsALTfeq2C QUYwHULxEEIdIZYvPWHaCIWhDCqfKNNaUZG6FjQ1FTWuLYExDO6DNnFtMMPsYhY2JIChDPPuXHTnci0B KBSuJKXwWUSaLfRsPNYzNADeEWccMUGqWHA9XHX7EN XfJAVkRZ0VTdOjECMbOlVyQdRfZZVqDALimn4ZCUOyTSRxGuAyKkQeOUEbDSSiGFtfEROiCIY1LaU9ES WgRTJvWZ1ECwWtDJRgYdqeNYLqYCQhEFNbcu3WBGLcYFJaEIE6LCEfJOSiESYzVIqeVJFnLXK8IBNhAG AuFNVlTM7JQfVxJMinIZSBHwp1GYdeZ5h6ZVZsVL1R F1Vwq5WlClRgOYNMUJylIZ1rasJzZMFcBd2TC2uAQkdfDMGzI5ZbIMA1WFgeR8R8SQteTAY8Ejl1ITg5 OQOpEN2fXMHoXdQ4KgA9ZjFeQMJ0JUNdJQX7IIHzDEycFtVzCGD4LrFsGH7UBy0EDlW2OHN7yTWrTs6B Pvr0YYHZMhTgYR4LHLe= ID Date Data Source [id number] 12/04/2020 09:36:54 PM EDT [facility] Name Value Range Interpretation Code Description Data Catrachita rce(s) Supporting Document(s) Consultation [facility] OBYOYg7pRlKLMqJf17/QTHxoVRNlb7CdMXaoVNb9NWwfVHQbL3PmAQW9aN1mNSC1SNgGTcQlYqMuCtFv m [file] ICAgICAgICAgICAgICAgICAgICAgICAgICAgICAgIC MyPAWkIRDhNJEhWGRrVQFiSH6YJNUjFIAyCEBgRXKyEJQfRFHiXOYoYGZrAJIrPJGbACEyPUIoXUKpUI AgICAgICAgICAgICAgICAgICAgICAgICAgICAgICAgICAgICAgICAgICAgICAgICAgICAgICAgICAgIA 0KICAgICAgICAgICAgICAgICAgICAgICAgICAgICAg ICAgICAgICAgICAgICAgICAgICAgICAgICAgICAgICAgICAgICAgICAgICAgICAgICAgICAgICAgICAg IJNmBJZaMJGmBK9NPFVkOJCoVAEtVDDvMHPoTPLiSVRwUXNuCLUwGBSbIQZtUJYfOWAwCPCfDPKpGTSd ICAgICAgICAgICAgICAgICAgICAgICAgICAgICAgIC TpPGRyESDwLBQfLCCcUTMtMZCvUZ7NZPLpDAHgTDSpTQOmRNVoECXhMRMyBIZeMTDkJIBgZGRrLNYoWY AgICAgICAgICAgICAgICAgICAgICAgICAgICAgICAgICAgICAgICAgICAgICAgICAgICAgICAgICAgIC FyAW6GFUAkPTVvBSVwIUXxAVNnVVPkVSRuJODbUBRb ICAgICAgICAgICAgICAgICAgICAgICAgICAgICAgICAgICAgICAgICAgICAgICAgICAgICAgICAgICAg JIFvKTHaGPLiFLEnHM1VOBFaLHWoEHXyKOBvNBTvGOOuOOYkYBTsTYQzJVVzYPJyFEZqTEQsHNApDEZz ICAgICAgICAgICAgICAgICAgICAgICAgICAgICAgIC AmBMQrWMJnEVUlDINnZKXiBQYkNMStXJ0GEHTtNNTlDELvGTQyKPTuUGDzSMJzQCUfHOBiNDSvWWCrQX AgICAgICAgICAgICAgICAgICAgICAgICAgICAgICAgICAgICAgICAgICAgICAgICAgICAgICAgICAgIC SnCGSeRA8DKWDzDORuWZJxRKVnMKLfRLOyBAHgIBHh ICAgICAgICAgICAgICAgICAgICAgICAgICAgICAgICAgICAgICAgICAgICAgICAgICAgICAgICAgICAg GNXaWHFuKLQwNAOtRTTrGF5VCHMwBWFbVZTfEKFvADXnLEYnLOHeISPrRSKlMBNyMBTsFNZzBZCiYMSq ICAgICAgICAgICAgICAgICAgICAgICAgICAgICAgIC WvXRGtYETeMMJuIVCtFJUgYFChQODmTSVdHM3FJP46eYWdn7L9YVYdZW1uedq/Vg0NRDeoqsKjmXXeTT 6EHmQzDM3nxa7FGmWdKD3xvz9YAIrWIlBlV8N4tYIfFUSeFOMMBuWuZ22kEBcbCc75VCqmOVHaZuTzRE h5Kh4QIvVcY0sfWHKzRpD2YADxSrF9FNHyRgN0SWAc WiDeGCNzRPNbAORqRJSBYSP2ISVbUeAbLkLwTDEpSVccKRVJLD9LAwZfW2EztN33KUiAEd5+DQplbmRv VqxWZsItGNMop6GyJLp6MP0WAOFaTgmhj7BlTLPnICYDHXooJH6SRVM3MJFtEKIyOm7GFEVxN078auRy XA4AWi8WCjAhZB4gji0JWIDxJVNkXkpZUql0PCwvJE 2XyBDgQZmSm65vhFp7coMdfRSUIEbkMXFcL4elaMYdZEEwDB9MMCM5YTsxQEZfJhHrIFZtAejtNDEBWB uWUgUsG0Ksg7WaKbG6NYZsDkJrTEmiCPXeKvX6IA17bOtvPV1YJQCkAWDqUN70BLLqSVRyOm1GGp2BTy PiOU4jzq9MWCQtVATgGmvBIfp3MNylTP8UaMMlD4Rr gXUtm8dRJoSaV3PIHJP4SMLiMs3WMFKxUwGtYRKfFGkxSS3lILMpYQYCkIcbhaI0HY8KZC4vevFpUS2O CcZhLd4qBp6OLeHvZ8ExE7JeGKQfKNTPSLinTJ5XLJoePW1jHV8Ut0YQbIVjtC7wsk2UROCwVTTwEzto jn6BFgxaA9Z8vSvvXXCbTGZnNGSRKEfxQT8STOKlSB N2LFU1VTYnFZVRNeOtF97jIU9BC0Pxc93fIpI0LWWpMoFfAJphTE97xPpkjwBnaNYvdKwaJX2EMs3+DQ bjzkZlUsqUDwswCJUBKeJyCSXGTbRbVOKdPTSoUWJhYbT7FmPsQi9RLFEqNDArDZMxOxOqQQKzKCNmML ngJGLmPWC5FCy4EDYhIMYwVE9MReXwLMYiUIHfUmgd QTCyOJMlrh7AOXEkCXNvHIT9PpRwQUGkDECrRXrmQBZjLDS5MPXjCCOhGPFcND5DMnSxSPErZZJ5Oodc MFToFAAtzr5RQTPkVFAfMBJeBhUlBFNsSDVkRCttMUEdQMY9PFLsWXAgQTAzJO9IFgFfAVPfRJJyTWDe KCRrDFOmrn2XTCZvQSDtBdK4OzIfJCHcCJNrWOxnDF XqVXT0CgVcPOZhGJUoQZ7VOxHzYLElXQK3KQqyWOXuYHDbkm3TSWNqFPSdHRO8AuInZHYiCGVsMUxaGQ NjKYP6QRIwGHObCAVsNQ5SEpSxYXGuOpQ4IeTjVVOiQMXusc8IGHVmGDCqApV8ORIcURJpKOFfWGuoQW VmPAT4BIs0QAQkLCEyZT3ETiKuNWZiVpfgNVHhEJOo RGZfup4RTPZaMUBgMVg0HYLaRKTfTWYsNSvcUORmPMA1PTE4HMOxKRDgCO3HMzBvCHAoUtDdEzNxEXVf ATYbio4QVBAuIWBjCMXoNaOfNSLwXKRtPXdkDIZkANCrGBH2AMRqNAUdUM0NTwPjXLWkFbTnLbEsATBa CKMhho6EVVJyPPTrPWA7ZvEmHVShBXLrILbpYZMvLB DmVjO2JTCvDKBoBF5BPdXbWQDdUxV8SBNgMZUbWADixm7WBWKbQYUaGsmsMhRjTOMgDATmVBiuJTYvUV GwNJw2DPGdTFHyNT8LIsEsPNWmWaSfWBWfOUJmAITaag4OLQQcUETjRCO3HWEuRBVwZEAcHEkkAFUhMT P6AQT0PDBiUVKyVA2LZnXuXBAtLKG3VjWwTYYwORKh qh3UBHBrNCB9HkD7QiFjSXOjJAOfNAnsWHFaZXH8ObDxILYdNKGsXA0BFbTwJWAlVMA9STZbHBGrYZOd jx6SHCEoDXU8Hxp7PoRrWCMjUZQhENtvYYIdCSE5Wgh2PHCdLPIfOJ8WUjYaCLFnOJy1RFWbWLUzLRRe mk6LTQFtEFC4XSB4QIUcBWXsEVDuJGgzXBAwRHXbYZ DzAFZiYXEfWR8KDjYmKFTeDFZpEIXzGHSiVMAogu2KVISzCBX8WsC2GCLkYPLsHXHiWGxtEQFcDVSqHf U6TCWyFTSdJT4IAtYuDSZlKSH6BSrhKFVoWDKglk2BFUIeCTZ6RWI9BXEyBDFmVFTmCHyoXYSvUCY2Bx W8LWFrFYPmRZ7SWxHyAUCqKIO2JCDlTEBhBKPgst4Y YBZcHGW7MMthEwWaQUBzDKTqJUnuMRRkSGF5JQZhYAAwQKIoNB4DYuQmSKRkENY0GYYuWFVmMLEatc0N YYYqHSR4ChTrIwHiOAYbMCVsSJi7tpMwsWZlZPg9GS7AO3QzhnZvDRKKBr1Di631SUJmOALsGm5JO4ww Yw0kHSRfBMAMLz5EXLk2PnU6ATC6VDMtYLr9CqN3Qn d2Wyp4HGG1QSPnSJPbENF+CRdhTlYoJpN2WfR7ZPWlHVroATJmRBFoOUY8AKR2NVXnLd6oRUUMFx9+DQ [id number] ID Date Data Source [id number] 12/06/2020 12:02:06 PM EDT [facility] Service Cmnt XXX-Imp : NoneMicroorganism XXX Cult : Greater than 100,000 col/mlIndigenous microorganisms. Name Value Range Interpretation Code Description Data Catrachita rce(s) Supporting Document(s) ID Date Data Source [id number] 12/04/2020 08:44:42 PM EDT [facility] Name Value Range Interpretation Code Description Data Catrachita rce(s) Supporting Document(s) Color of Urine [facility] Clarity of Urine [facility] Specific gravity of Urine by Refractometry automated 1.024 1.003 -1.030 [facility] pH of Urine by Automated test strip 5.0 5.0-8.0 [facility] Protein [Mass/volume] in Urine by Automated test strip Neg [facility] Glucose [Mass/volume] in Urine by Automated test strip Neg [facility] Ketones [Mass/volume] in Urine by Automated test strip Neg [facility] Bilirubin.total [Presence] in Urine by Automated test strip Negative [facility] Hemoglobin [Presence] in Urine by Automated test strip Neg [facility] Leukocyte esterase [Presence] in Urine by Automated test strip Negative [facility] Nitrite [Presence] in Urine by Automated test strip Negati [facility] Leukocytes [#/area] in Urine sediment by Automated count 6 /HPF 0 -5 H [facility] Erythrocytes [#/area] in Urine sediment by Automated count 4 /HPF 0-3 H [facility] Epithelial cells.squamous [#/area] in Urine sediment by Auto mated count 12 /HPF None [facility] Mucus [#/area] in Urine sediment by Microscopy low power field None [facility] Calcium oxalate crystals [#/area] in Uri ne sediment by Microscopy high power field None [facility] ID Date Data Source 12/04/2020 09:31:24 PM EDT [facility] Name Value Range Interpretation Code Description Data Catrachita rce(s) Supporting Document(s) Amphetamine [Presence] in Urine by Screen method Negative [facility] Benzodiazepines [Presence] in Urine by Screen method [facility] (NOTE)Positive results are presumptive a nd unconfirmed;confirmatorytesting can be ordered at [facility] at [phone] [facility] at [phone] within 5 days of collection. Cannabinoids [Presence] in Urine by Screen method Negative [facility] Benzoylecgonine [Presence] in Urine by Screen method [facility] Methadone [Presence] in Urine by Screen method [facility] Opiates [Presence] in Urine by Screen method [facility] Oxycodone [Presence] in Urine by Screen method [facility] Fentanyl+Norfentanyl [Presence] in Urine by Screen method [facility] Service [facility] Results below the indicated cutoff (ng/m L), are reported as"Negative." Note: for medical purposes only; not valid for legalor employment testing. ID Date Data Source 12/04/2020 07:11:00 PM EDT [facility] Name Value Range Interpretation Code Description Data Catrachita rce(s) Supporting Document(s) SARS-CoV-2 RNA 2019 nCoV Real-Time RT-PCR: NOT DETECTED [facility] This lab was ordered by [facility] and reported by [facility]. ID Date Data Source 12/04/2020 09:21:46 PM EDT [facility] Service Cmnt XXX-Imp : NoneRespiratory P CR Panel : PCR ResultsMicroorganism XXX Cult : See Labs Tab for 2019 nCoV RT-PCR resultsHAdV DNA QI MACKENZIE+non-probe : Not DetectedHCoV [id number] Nph QI MACKENZIE+non-probe : Not DetectedHCoV [id number] Nph QI MACKENZIE+non-probe : Not [id number] RNA Nph QI MACKENZIE+non-probe : Not [id number] RNA Upper resp QI MACKENZIE+probe : Not [...] DNA Nph Q MACKENZIE+non-probe : Not DetectedB [id number] DNA Nph MACKENZIE+non-probe : Not Detected Name Value Range Interpretation Code Description Data Catrachita rce(s) Supporting Document(s) ID Date Data Source 12/04/2020 09:20:30 PM EDT [facility] Name Value Range Interpretation Code Description Data Catrachita rce(s) Supporting Document(s) Specimen source [Identifier] of Unspecified specimen [facility] PRIORITY SARS-CoV-2 RNA 2019 nCoV Real-Time RT-PCR: NOT DETECTED [facility] Assay Performed [facility] Patients first test for [facility] 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 [facility] Patient has symptoms related to [facility] When did you start to experience these symptoms [Date and time] [Phen X] [facility] Patient was hospitalized because of this condition [facility] patient was admitted to ICU for [facility] Patient resides in a congregate care setting [facility] status [facility] ID Date Data Source 12/04/2020 07:47:40 PM EDT [facility] Name Value Range Interpretation Code Description Data Catrachita rce(s) Supporting Document(s) Leukocytes [#/volume] in Blood by Automated count 9.9 10*3/uL 4-10 [facility] Erythrocytes [#/volume] in Blood by Automated count 4.27 10*6/uL 4.1- 5.3 [facility] Hemoglobin [Mass/volume] in Blood 12.5 g/dL 11.5-15.5 [facility] Hematocrit [Volume Fraction] of Blood by Automated count 38.8 % 3 6-45 [facility] Erythrocyte mean corpuscular volume [Entitic volume] by Auto mated count 90.7 fL 80-96 [facility] Erythrocyte mean corpuscular hemoglobin [Entitic mass] by Automated count 29.3 pg 27-33 [facility] Erythrocyte mean corpuscular hemoglobin concentration [Mass/volume] by Automated count 32.3 g/dL 32.0-36.0 [facility] distribution width [Ratio] by Automated count 14.7 % 11.5-14.5 H [facility] Platelets [#/volume] in Blood by Automated count 264 10*3/uL 150-400 [facility] Differential cell count method - Blood [facility] Neutrophils/100 leukocytes in Blood by Automated count 66 % [facility] Lymphocytes/100 leukocytes in Blood by Automated count 23 % [facility] Monocytes/100 leukocytes in Blood by Automated count 9 % [facility] Eosinophils/100 leukocytes in Blood by Automated count 1 % [facility] Basophils/100 leukocytes in Blood by Automated count 1 % [facility] Neutrophils [#/volume] in Blood by Automated count 6.58 10*3/uL 1.8-7 .0 [facility] Lymphocytes [#/volume] in Blood by Automated count 2.24 10*3/uL 1.2-4 .0 [facility] Monocytes [#/volume] in Blood by Automated count 0.91 10*3/uL 0-0.8 H [facility] Eosinophils [#/volume] in Blood by Automated count 0.14 10*3/uL 0-0.5 [facility] Basophils [#/volume] in Blood by Automated count 0.07 10*3/uL 0-0.2 [facility] Nucleated erythrocytes/100 leukocytes [Ratio] in Blood by Automated count 0 /100{WBCs} 0-0 [facility] ID Date Data Source 12/04/2020 08:22:08 PM [facility] Value Range Interpretation Code Description Data Catrachita rce(s) Supporting Document(s) Acetaminophen [Mass/volume] in Serum or Plasma 10.0-30.0 L [facility] ID Date Data Source 12/04/2020 08:22:08 PM EDT [facility] Name Value Range Interpretation Code Description Data Catrachita rce(s) Supporting Document(s) Albumin [Mass/volume] in Serum or Plasma by Bromocresol green (BCG) dye binding method 4.0 g/dL 3.5-5.2 [facility] Bilirubin.total [Mass/volume] in Serum or Plasma 0.3 mg/dL <1.2 [facility] Bilirubin.direct [Mass/volume] in Serum or Plasma <0.3 [facility] Alkaline phosphatase [Enzymatic activity/volume] in Serum or Plasma 117 U/L 35-104 H [facility] Aspartate aminotransferase [Enzymatic activity/volume] in Serum or Plasma 19 U/L <32 [facility] Alanine aminotransferase [Enzymatic activity/volume] in Seru m or Plasma 16 U/L <33 [facility] Protein [Mass/volume] in Serum or Plasma 6.7 g/dL 6.4-8.3 [facility] ID Date Data Source 12/04/2020 08:22:[address] [facility] Value Range Interpretation Code Description Data Catrachita rce(s) Supporting Document(s) Ethanol [Mass/volume] in Serum or Plasma Negative [facility] ID Date Data Source 12/04/2020 08:22:[address] [facility] Value Range Interpretation Code Description Data Catrachita rce(s) Supporting Document(s) Bicarbonate [Moles/volume] in Serum 22 mmol/L 22-29 [facility] Chloride [Moles/volume] in Serum or Plasma 104 mmol/L 98-107 [facility] Creatinine [Mass/volume] in Serum or Plasma 0.84 mg/dL 0.50-0.90 [facility] Glucose [Mass/volume] in Serum or Plasma 84 mg/dL 70-140 [facility] Potassium [Moles/volume] in Serum or Plasma 3.6 mmol/L 3.4-5.1 [facility] Sodium [Moles/volume] in Serum or Plasma 139 mmol/L 136-145 [facility] Urea nitrogen [Mass/volume] in Serum or Plasma 15 mg/dL 6-20 [facility] Anion gap 3 in Serum or Plasma 13 mmol/L 8-15 [facility] Osmolality of Serum or Plasma by calculation 288 mosm/kg 275-300 [facility] Creatinine/Urea nitrogen [Mass Ratio] in Serum or Plasma 18 [facility] Calcium [Mass/volume] in Serum or Plasma 8.5 mg/dL 8.6-10.0 L [facility] Glomerular filtration rate/1.73 sq M pre dicted among non-blacks [Volume Rate/Area] in Serum or Plasma by Creatinine-based formula (MDRD) 89 mL/min/1.73m2 >60 [facility] Glomerular filtration rate/1.73 sq M pre dicted among blacks [Volume Rate/Area] in Serum or Plasma by Creatinine-based formula (MDRD) >60 [facility] ID Date Data Source 12/04/2020 08:22:08 PM EDT [facility] Name Value Range Interpretation Code Description Data Catrachita rce(s) Supporting Document(s) Salicylates [Mass/volume] in Serum or Plasma 3.0-30.0 L [facility] ID Date Data Source 12/04/2020 08:22:[address] [facility] Value Range Interpretation Code Description Data Catrachita rce(s) Supporting Document(s) Thyroxine (T4) free [Mass/volume] in Serum or Plasma 0.95 ng/dL 0.93- 1.70 [facility] ID Date Data Source 12/04/2020 08:22:[address] [facility] Value Range Interpretation Code Description Data Catrachita rce(s) Supporting Document(s) Thyrotropin [Units/volume] in Serum or Plasma 5.880 u[IU]/mL 0.270-4. 200 H [facility] ID Date Data Source [id number] 11/20/2020 08:09:00 PM EDT [facility] Name Value Range Interpretation Code Description Data Catrachita rce(s) Supporting Document(s) SARS coronavirus 2 RNA [Presence] in Res piratory specimen by MACKENZIE with probe detection NEGATIVE [facility] This lab was ordered by [facility] a nd reported by [facility]. ID Date Data Source [id number] 11/20/2020 05:08:56 PM EDT [facility] PATIENT INFORMATIONPatient MRN Name Date of [id number] Shabnam Aaron 1985 35 y.o. Weight Gender PT Class 96.2 kg F Psych InptPT Location Admission Date/Time Visit ID Attending [id number] 11/18/20 1314 --- --- EPI ID CSN Admitting Provider [id number] Duran Nielson MD([id number])PSYCHIATRIC IP DISCHARGE SUMMARYPatient: Shabnam AaronMRN: [id number]: femaleAge: 35 y.o.: 1985Admission Date: 11/18/2020ischarge Date: 1Reason for Admission/History of Present Illness:FROM CPEP NOTE:Patient is a 35 year old female with previous reported diagnoses of Anxiety,Depression, Intellectual Disability, who presented to [facility] ED via EMS transfer from [facility] on a 9.37 status forsuicidal ideation. Patient [...] COLLATERAL REPORTS(from CPEP NOTE):Nadja Hancock, patient's mother [phone] reports that there is a lot going on ( has cancer, she has skincancer) and Nadja is unable to accompany her to [facility] Nadja reports that Shabnam is intellectually disabled [...] [facility] "she lit up like [place]" Nadja [...] liquids okay" (Progress Notes by Marley Ladd [facility]-CLAIMS ANALYST,dated 11/19/2020 at 12:23pm). A diet order was [...] hygieneBehavior: cooperativeEye Contact: goodGait: within normal limitsOrientation: i4Jqzitw: Clear. Normal rate, rhythm, and volume.Mood: "Good."Affect: [...] kg (212 lb)SpO2 93%BMI 35.28 kg/m2BSA 2.1 h5Vpjaptqdy Medication List as of 11/20/2020 1:41 PMSTART [...] you need to do Thursday Go to [facility] 10:00am Where: [facility] [place], [place] [address]Z. [phone]. [phone] Disposition: Discharged on 11/20/2020 and transported home via taxi.Her mother, Nadja Hancock (telephone # [phone]), approved of the patientbeing transported home via taxi. Nadja Hancock could not sweet pickled fruit maker the patientherself because she said "I'm recovering from surgery."Was patient discharged on two or more antipsychotics?Xiomy Jordan MD11/20/2020 Name Value Range Interpretation Code Description Data Catrachita rce(s) Supporting Document(s) ID Date Data Source [id number] 11/20/2020 09:09:00 AM [facility]T [facility] Name Value Range Interpretation Code Description Data Catrachita rce(s) Supporting Document(s) SARS coronavirus 2 RNA [Presence] in Uns pecified specimen by MACKENZIE with probe detection Not detected [facility] This lab was ordered by [facility] and reported by [facility]. ID Date Data Source [id number] 11/20/2020 10:26:00 AM EDT [facility] Source->NasopharyngealIs this test for d iagnosis or screening?->ScreeningRelease to patient->ImmediateReason for COVID-19 test->Routine testing of asymptomatichospitalized patientsUnit Collect Name Value Range Interpretation Code Description Data Catrachita rce(s) Supporting Document(s) SOURCE Nasopharyngeal [facility] SARS-CoV-2 BY RT-PCR Not detected Normal (applies to non-n umeric results) [facility] NEGATIVE RESULTA negative ("Not detected ") result does not gegykmgaMSHI-DlP-4 infection, and a negative result should not [...] call 911. For additional information please [email or web address] hillUpdat es: Coronavirus in [facility] hospitalGet the latest reopening updates, travel guidelines, and learn howfremont memorial hospitales and schools are impacted.https://[email or web address] .health.sc.gov/homeTesting was performed on the hemalatha? Kell? System using hemalatha?SARS-CoV-2 & Influenza A/B reagent. This is a dnjy-jhljVQ-SWV assay which qualitatively detects nucleic acid fromsevere acute respiratory syndrome coronavirus 2 (SARS-CoV-2)in suitable respiratory specimens such as nasopharyngeal swabs.This assay has been approved for use under an Emergency UseAuthorization (EUA) by the Food and Drug Administration (FDA). ID Date Data Source [id number] 11/19/2020 03:49:00 PM EDT [facility] Release to patient->ImmediateUnit Collec t Name Value Range Interpretation Code Description Data Catrachita rce(s) Supporting Document(s) T PALLIDUM AB NONREACTIVE Normal (applies to non-numeric r esults) [facility] T.pallidum Antibody Index: less than [...] TPal Ab Index ID Date Data Source [id number] 11/19/2020 02:54:00 PM EDT [facility] Release to patient->ImmediateUnit [facility] t Name Value Range Interpretation Code Description Data Catrachita rce(s) Supporting Document(s) VITAMIN D,25-HYDROXY >= 20 Normal (applies to non-num denzel results) [facility] ID Date Data Source [id number] 11/19/2020 02:40:00 PM EDT [facility] Release to patient->ImmediateUnit [facility] t Name Value Range Interpretation Code Description Data Catrachita rce(s) Supporting Document(s) eAVERAGE GLUCOSE 68-126 Normal (applies to non-numeric results) [facility] HEMOGLOBIN A1C 4.2-5.6 Normal (applies to non-numeric r esults) [facility] Per ADA 2018 Guidelines, HbA1c values sh ould be interpreted as follows: Normal: less than 5.7% Prediabetes: 5.7% - 6.4% Diabetes: greater than 6.4%Samples containing >7% HbF may yield lower than expected HbA1c results.Additional testing not affected by HbF can be requested if clinicallyindicated. Contact [phone] for more information. ID Date Data Source [id number] 11/19/2020 08:07:00 AM EDT [facility] Release to patient->ImmediateUnit [facility] t Name Value Range Interpretation Code Description Data Catrachita rce(s) Supporting Document(s) GFR BLACK 64-149 Below low normal [facility] For both GFR and GFR BLACK, th e accuracy of the GFRcalculation is contingent on a stable level of serumcreatinine. The GFR calculation is normalized to 1.73 "meterssquared" body surface area. A GFR less than 60 may alterclinical management decisions. A GFR within the age-adjustedreference range does not exclude kidney disease. ID Date Data Source [id number] 11/19/2020 08:07:00 AM EDT [facility] Release to patient->ImmediateUnit [facility] t Name Value Range Interpretation Code Description Data Catrachita rce(s) Supporting Document(s) GFR 64-149 Below low normal [facility] ID Date Data Source [id number] 11/19/2020 08:07:00 AM EDT [facility] Release to patient->ImmediateUnit [facility] t Name Value Range Interpretation Code Description Data Catrachita rce(s) Supporting Document(s) CHOLESTEROL 50-180 Normal (applies to non-numeric resu lts) [facility] TRIGLYCERIDES 30-150 Normal (applies to non-numeric re sults) [facility] HDL CHOLESTEROL 40-60 Normal (applies to non-numeric results) [facility] HDL levels are inversely related to the incidence of coronaryheart disease (CHD).HDL less than 40 mg/dL.........Increased risk for CHDHDL greater than 59 mg/dL.......Negative risk for CHD non-HDL-C 95-160 Normal (applies to non-numeric resul ts) [facility] CHOL/HDL RATIO [facility] CHD CHOL/HDL RATIORisk Group Men Women Lowest <3.8 <2.9Low 3.8-4.7 2.9-3.6Moderate 4.8- 5.9 3.7-4.6High >5.9 >4.6 LDL (calc) 30-100 Normal (applies to non-numeric resul ts) [facility] ID Date Data Source [id number] 11/19/2020 08:07:00 AM EDT [facility] Release to patient->ImmediateUnit [facility] Name Value Range Interpretation Code Description Data Catrachita rce(s) Supporting Document(s) SODIUM 136-145 Normal (applies to non-numeric resul ts) [facility] POTASSIUM 3.5-5.2 Normal (applies to non-numeric resul ts) [facility] CHLORIDE 100-110 Normal (applies to non-numeric resul ts) [facility] CO2 22-31 Normal (applies to non-numeric results) [facility] ANION GAP 3-18 Normal (applies to non-numeric resul ts) [facility] BUN 7-21 Above high normal [facility] CREATININE 0.8-1.3 Normal (applies to non-numeric resul ts) [facility] GLUCOSE 60-100 Normal (applies to non-numeric resul ts) [facility] CALCIUM 8.4-10.0 Normal (applies to non-numeric resul ts) [facility] TOTAL PROTEIN 6.4-8.2 Below low normal [facility] ALBUMIN 3.5-5.0 Normal (applies to non-numeric resul ts) [facility] GLOBULIN 2.6-3.2 Normal (applies to non-numeric resul ts) [facility] A/G RATIO 1.1-1.8 Normal (applies to non-numeric resul ts) [facility] BILI, TOTAL 0.1-1.1 Normal (applies to non-numeric resu lts) [facility] AST 15-37 Below low normal [facility] 15-60 Below low normal [facility] ALK PHOS 39-117 Normal (applies to non-numeric resul ts) [facility] ID Date Data Source [id number] 11/19/2020 08:07:00 AM EDT [facility] Release to patient->ImmediateUnit Colle t Name Value Range Interpretation Code Description Data Catrachita rce(s) Supporting Document(s) VIT B12 211-911 Normal (applies to non-numeric resul ts) [facility] ID Date Data Source [id number] 11/19/2020 07:18:00 AM EDT [facility] Release to patient->ImmediateUnit Collec t Name Value Range Interpretation Code Description Data Catrachita rce(s) Supporting Document(s) WBC 4.8-10.4 Normal (applies to non-numeric resul ts) [facility] RBC 4.04-5.48 Normal (applies to non-numeric resul ts) [facility] HGB 11.9-15.9 Normal (applies to non-numeric resul ts) [facility] HCT 38-48 Normal (applies to non-numeric results) [facility] MCV 80-97 Normal (applies to non-numeric results) [facility] MCH 26.6-30.6 Normal (applies to non-numeric resul ts) [facility] MCHC 31.1-34.5 Normal (applies to non-numeric resul ts) [facility] RDW 12.9-16.3 Normal (applies to non-numeric resul ts) [facility] PLATELET COUNT 142-414 Normal (applies to non-numeric r esults) [facility] MPV 9.0-12.2 Normal (applies to non-numeric resul ts) [facility] ID Date Data Source [id number] 11/19/2020 07:36:00 AM EDT [facility] Release to patient->ImmediateUnit Colle t Name Value Range Interpretation Code Description Data Catrachita rce(s) Supporting Document(s) TEST, UR NEG [NEGATIVE] Normal (applies to non-numer ic results) [facility] ID Date Data Source [id number] 11/18/2020 11:00:55 PM EDT [facility] PATIENT INFORMATIONPatient MRN Name Date of [id number] Shabnam Aaron 1985 35 y.o. Weight Gender PT Class 96.2 kg F Psych InptPT Location Admission Date/Time Visit ID Attending [id number] 11/18/20 1314 --- --- EPI ID CSN Admitting Provider [id number] Duran Nielson MD([id number])Date: 11/18/2020Name: Shabnam AaronMRN: [id number]: 1985Admit Date: 11/18/2020ttending Provider: No att. providers foundPrimary Care Physician: No primary care provider on file.Admitting Diagnosis: Psychosis, unspecified psychosis type (CMS HCC Code) [F29]Chief Complaint:Chief ComplaintPatient presents with Psychiatric EvaluationConsent Obtained prior to completing this visitBy proceeding with this visit, you are providing consent for a [facility] provider to treat (the patient) via a telemedicine visit. By providingyour consent, you acknowledge:1. You will communicate to the [facility] provider using an interactiveSomanta Pharmaceuticalsdeo link or through telephonic communication. You have the right todiscontinue this telemedicine visit at any time.2. You will be informed about the [facility] provider conducting thevisit and any other personnel [...] provider's location.5. Medical information shared with the [facility] provider during thisvisit will be documented and safeguarded just as it would during an in-personvisit.6. All questions you have regarding [facility] staff or the telemedicinetechnology will be answered.This [...] Social Gatherings with Friends and Family: Attends [employer] Services: Active Member of Clubs or Organizations: [...] rce(s) Supporting Document(s) ID Date Data Source [id number] 11/18/2020 03:57:56 PM EDT [facility] PATIENT INFORMATIONPatient MRN Name Date of [id number] Shabnam Aaron 1985 35 y.o. Weight Gender PT Class 96.2 kg F Psych InptPT Location Admission Date/Time Visit ID Attending [id number] 11/18/20 1314 --- --- EPI ID CSN Admitting Provider [id number] Duran Nielson MD([id number])[facility] EM[facility] DEPTHistoryNo chief complaint on file.Patient is a 35-year-old female with H schizoaffective disorder who was seenearlier today at [facility] for evaluation of auditory hallucination andsuicidal thoughts. Patient states that she hears the voice of the devil tellingher to slit her wrists, murder her family, and injure others. She is uncertainwhether or not she has missed doses of her medications.History provided by: Patient and medical recordsLanguage quality assurance advisor used: NoMental Health ProblemPresenting symptoms: hallucinations, suicidal [...] rce(s) Supporting Document(s) ID Date Data Source [id number] 11/18/2020 02:42:17 PM EDT [facility] PATIENT INFORMATIONPatient MRN Name Date of [id number] Shabnam Aaron 1985 35 y.o. Weight Gender PT Class 79.4 kg F Psych InptPT Location Admission Date/Time Visit ID Attending [id number] 11/18/20 1314 --- --- EPI ID CSN Admitting Provider [id number] Duran Nielson MD([id number])Psychiatrist Note - Comprehensive Psychiatric Emergency ProgramDate: 11/18/20 at 2:06 PMConsultant requested By: Dr Aliceaase also see complete CPEP evaluation completed by clinical strategy director foradditional information regarding history and presentation.History of Present IllnessLindssamy Aaron is 35 y.o. female to the emergency department at [facility] in [facility] where she is apparently quite well known. [...] outpatient psychiatrist for tomorrow. She now [facility] reporting seeing the devil and hearing his voice saying to killherself and kill others. She was subsequently transferred to this facility forfurther evaluation and treatment due to a lack of beds locally. On my examtoday, she was seen lying in the bed in the psychiatric emergency room. Shewasfully alert, lying in bed facing the senior grant writer with generally clear but rathervague speech. [...] appears psychomotorretarded, profoundly depressed and withdrawn. When senior grant writer told her that shewould be admitted [...] VisualHarmSuicide: Thoughts/ideationHarm to others: Thoughts/ideationInsightInsight: PoorJudgementJudgement: PoorPsych MD/COMMODITY MANAGER Continued AssessmentMuscle Strength / Tone: Within Defined [...] a more supervised setting such as a [facility] and according to mother, [facility] [...] to provide information about when she startedthis medication.[facility] Pharmacy Technician: Duran Nielson MD at 2:06 PM Name Value Range Interpretation Code Description Data Catrachita rce(s) Supporting Document(s) ID Date Data Source [id number] 11/16/2020 11:12:00 PM EDT [facility] Name Value Range Interpretation Code Description Data Catrachita rce(s) Supporting Document(s) SARS coronavirus 2 RNA [Presence] in Res piratory specimen by MACKENZIE with probe detection NEGATIVE [facility] This lab was ordered by [facility] a nd reported by [facility]. ID Date Data Source [id number] 11/08/2020 03:02:00 PM EDT [facility] Name Value Range Interpretation Code Description Data Catrachita rce(s) Supporting Document(s) SARS coronavirus 2 RNA [Presence] in Res piratory specimen by MACKENZIE with probe detection NEGATIVE [facility] This lab was ordered by [facility] a nd reported by [facility]. ID Date Data Source [id number] 11/02/2020 11:06:19 AM EDT [facility] Name Value Range Interpretation Code Description Data Catrachita rce(s) Supporting Document(s) Discharge Summary [facility] [id number]/[id number]RXwPMlGyKjAbXkVo m [file] ICAgICAgICAgICAgICAgICAgICAgICAgICAgICAgICAgICAgICAgICAgICAgICAgICAgICAgICAgICAg ICAgICAgICAgICAgICAgDQogICAgICAgICAgICAgIC AgICAgICAgICAgICAgICAgICAgICAgICAgICAgICAgICAgICAgICAgICAgICAgICAgICAgICAgICAgIC AgICAgICAgICAgICAgICAgICAgICAgICAgDQogICAgICAgICAgICAgICAgICAgICAgICAgICAgICAgIC AgICAgICAgICAgICAgICAgICAgICAgICAgICAgICAg ICAgICAgICAgICAgICAgICAgICAgICAgICAgICAgICAgICAgDQogICAgICAgICAgICAgICAgICAgICAg ICAgICAgICAgICAgICAgICAgICAgICAgICAgICAgICAgICAgICAgICAgICAgICAgICAgICAgICAgICAg ICAgICAgICAgICAgICAgICAgDQogICAgICAgICAgIC AgICAgICAgICAgICAgICAgICAgICAgICAgICAgICAgICAgICAgICAgICAgICAgICAgICAgICAgICAgIC AgICAgICAgICAgICAgICAgICAgICAgICAgICAgDQogICAgICAgICAgICAgICAgICAgICAgICAgICAgIC AgICAgICAgICAgICAgICAgICAgICAgICAgICAgICAg ICAgICAgICAgICAgICAgICAgICAgICAgICAgICAgICAgICAgICAgDQogICAgICAgICAgICAgICAgICAg ICAgICAgICAgICAgICAgICAgICAgICAgICAgICAgICAgICAgICAgICAgICAgICAgICAgICAgICAgICAg ICAgICAgICAgICAgICAgICAgICAgDQogICAgICAgIC AgICAgICAgICAgICAgICAgICAgICAgICAgICAgICAgICAgICAgICAgICAgICAgICAgICAgICAgICAgIC AgICAgICAgICAgICAgICAgICAgICAgICAgICAgICAgDQogICAgICAgICAgICAgICAgICAgICAgICAgIC AgICAgICAgICAgICAgICAgICAgICAgICAgICAgICAg ICAgICAgICAgICAgICAgICAgICAgICAgICAgICAgICAgICAgICAgICAgDQogICAgICAgICAgICAgICAg ICAgICAgICAgICAgICAgICAgICAgICAgICAgICAgICAgICAgICAgICAgICAgICAgICAgICAgICAgICAg QHTeFIMdBLJbEWKuDKBpOMZiLWThKXDuJOr2A5wkNE WbYDBzGJ9nYEg4Rx1+VDcWAkJvNCO2vlDvlD1OKU2jt2PtAFmkOBItx0DnYDc1DP6TAEEmJOuwTA8WKA pmez6CCGOyWAWffCXQh8pcFlHmRST7WNAtAfhoLH6CIMBeY4ybwrUfAIExKSQKXWczNARRWJdeMXROON QwLDFcWwZfLlUgLFUqDHZpLPFYGRB3GXOpWrHkGQGq EMMfNN2GOFDbI551xgShGQ2WCf7NCnBkTX1rtv8MPTSkVBYwPnaXDxa2SFnlNN9NsIBcuNA7YQIrNXHM FxGbZ9xlb5ZbQCSrLWPVJFfqSK5Rd2QqoAAmUEz+Ej5YSC5je0TbFOa7JNPhHH4aud2ELHjFVrOzX3Lg bRpyXBRvy4FcNVJtKSOAoE4gQRS0JAS8XMm4YjTrZK JdsuSdWZAeUUKnGE4LJHV0TLUpYRAzSdJhVLTjIXoyUDRVEVyDFgDwR0Ycb9IoEuS6RUVxNnTjZPktUR IsOsX5XX57dKbiEO5BPYQwINKcQR89TCD8QHFuNf0NBk0POxEfLU4ajd2KUNRgPRFqMelBUyc1XQcoYL 0DyEPyY7PqdGCgw0qSXeDxF2ZMOWVdBPIoIo8YHZLd UbMyTEFsSHgdOX7pXHDlNXIJxRlvwxF8LQ0NRI3bvkOiYC5LNzOjOc4mHd7ZQfLgZ9OeX3OnJDQaWYJX MQyeYW2EIPenZS9tVM8Yj2ZQqRHkjA6yys3CQCHbEYQjSshbpy1CZojiB7X5wTumWJDgCWWhBEVWDPey SA6RTCYfJMF7DIT1SaQiLMCHRyAwO05dYJ9UY3Dez9 5qIdW3KMAgZjSyBZikSP54zTibdiPpqMJgqNczAY6GDr2+DQplbmRvYmoNCnhyZWYNCjAgNDcNCjAwMD RlMRGyBQHyYlT7EdGpEi6PNQRiXGHgSGWqRsXxLDDhREEiJDscKZZySXXrLAQeOIWmFJDqXU9QTrQcCX XtZIL0YevmWQLdTLWgyb9ATJLaUQMtPZI5GkAkIUBm ACYtOAejZTIaYDK9LZZ8KSTfUJJtYY6ORuBcWNQbTDM8ZELwMJNmGZHbpn7KLVEtGIIkXCV3BePxEUEt XRRxBChyHVJuSZN0MahrEWUfWGBuGC9UGwFbVVSeREH7RMcrWOAkOABiny8WBGXeTIVdPJs4EeVtEZJd JTHsGYqmXRWiOPX2BnRvFSCuPKVuKZ8MIvEvZTEtTI W0IYouDYWdUPWncb6NSKPqINRaXRKyLsIuFYNyXNJwCRzqHWPkBYO3LdV2HJOoTRGkRV5JBuEhGXCbOc M8GWWgAOCqOKNmur4YGGRkXRJuLsJ1MBRpAJMxSAPtZQsfDHMzBKE6IHT4VNCwXUAgGX1WQmUoXSLbHk S7DsIhTGRqVZXiov5QAOIuVZMeVOTwYPStUJKkKDFo OOptXUMwUMS1ZPT2AQAcYKQxAX4CUuPpFRJtDgZ7IevsWWFmFSOzuq5XUFRfQZJvVXP3ALNeUTJxYTTx NDraSWNcULAqSYB0IXFyLHCeFI6AGzCgGGJeSvU1ASTvTYZrKSVqnl4NUEXiUVImUeLaWEHeVTZbAZDh ANynZUWeBCDjFOp0CKHsDCVgJR9WJrVzRKVdLeOcZG ErSLSoDHHxxm2ITIZsLDZzElD8RCUgMLMdXKPzPLwmUDNdSXVeAUHmGUCxHMYrKQ4NDhDxQDAfJUI4Ay AaPYDfAOGqiz7ONGIcZLU2UXZ6IfGiQWBsNYPnWDopJSWoLSQ4NJJnEKLcRNJmXS1HMsNqCTHoQNB8IH McZOTyAEHunj3XWQPbTTV2JHs6VwOpGYHqOJVwJKkp GQKlVULdQjLxPAWdVCDdII2BDeKhXDNmDCZjDrRoLOTeQROkig9RVRAsHYO8KWLmNxGuTMLdIROvHIah DPZuPWLvODheYKJoEHMaDJ7SLsAjCNJgSYS2UqAwNOMrAGJkno2IULXxTRP9YcS0BqSsVAYoXUSbEClg MMKlRAMtNoZ3KZLoKCCgSN0ZSkFjSVTbZLJ4YiizPJ VgXRKvlx6VDGHxFBQ1NrU6LCUeAKUgULJgJDyuTTMqAKC9CZkxSMLkQQHjQD2PQvFbOQDwZEQ3LXHdQB EmTMCqay0VBVQqWFB6TCP2ZFXzKEUjHUUtJKc1drJzeVAiPNw8NU2PE9ZronYrVQeFAe1Ki535EXH7WY SaBf4FY1wbDr7iXAGtGZRZTf8PFSj0XOX1EkDoUIkj FkDrYorzUcZ5JND6DGC2SwUaGVUsYFT+MDykYqunADUoCGJnDcJkV6R2VPX8OOhtVtkrCvO9DcNuSB1c XSANCj4+CTjiwAMvaYzzAUOXZrH3SuLeGTyiBUGCXs4S ID Date Data Source [id number] 11/01/2020 10:33:32 AM EDT [facility] Name Value Range Interpretation Code Description Data Catrachita rce(s) Supporting Document(s) History and Physical [facility] AGPMCr2gTwSKCfGy66/NQDnlOUUge6UnXOwjJXb1YJqoHQSzJ2MpAZO9vJ2tMKS1UOzPCsKsGzFdXpQs lbm IrAgfNGcWiKXFrIdoZKnShYGdoDvjisSOsKI4HiKR5POPfG18cCSHgFBBxT6ZfFJV7Mjn+Eb7JKTImvL OcCO2CUbcB5X1mE8kWEm2+7x2SiZztf7VXqNp79IpdwGUBU0fKovTaa2TmOUaYWBVLDHjUu80hFUB/0H C5iPxBYcng0shjeqg5yzfAadpyT0YM+l0ijCeh/ANDRE [file] AgICAgICAgICAgICAgICAgICAgICAgICAgICAgICAgICAgICAgICAgICAgICAgICAgICAgICAgICAgIC NwJJWfBMHpUDTpKG6AZMAmGQUtBRQnICMoUHZjONAc ICAgICAgICAgICAgICAgICAgICAgICAgICAgICAgICAgICAgICAgICAgICAgICAgICAgICAgICAgICAg ZLFxNUHlLVKlXOHzQNWwBZOfKEWuPB7XDOLjLFMwMXNzBTNoYNYmRMNfSLNqPGOzGGOoMBEzGKTlYXDo ICAgICAgICAgICAgICAgICAgICAgICAgICAgICAgIC TfZHXrZIWtSPCtTWMnURVyFKDxESOeOWYnENCzIYWyTB2NPDQuFIImXWFqAATjOXIfCASdXSLwBDGtUV AgICAgICAgICAgICAgICAgICAgICAgICAgICAgICAgICAgICAgICAgICAgICAgICAgICAgICAgICAgIC RyPNFfACSfBHUmDSYvWL5IQBLgRMQsCLTsHWUbRWZt ICAgICAgICAgICAgICAgICAgICAgICAgICAgICAgICAgICAgICAgICAgICAgICAgICAgICAgICAgICAg GCPaKMShXNQvZBEnFEBpKBCkOZKgEKVnLW3GIOFsYHDqFSByDIUyZOHzSIRjXAOdIUPrMGZxQUWwRIVn ICAgICAgICAgICAgICAgICAgICAgICAgICAgICAgIC KnFSKlCLFhLIObDIHoZHKuBGEhFZCsNGHeZJHuUZFkNROyKO5CTSPmWGAlKZDgYQZzOYCtWFVxEIXxWU AgICAgICAgICAgICAgICAgICAgICAgICAgICAgICAgICAgICAgICAgICAgICAgICAgICAgICAgICAgIC UjLYNyGKFfUUQyTQJzYIThEC9TGFYrDRTyAFZvGQSs ICAgICAgICAgICAgICAgICAgICAgICAgICAgICAgICAgICAgICAgICAgICAgICAgICAgICAgICAgICAg PPViQHYgHYPlUCXmUBGuKZHtBANiTXBjQFJqYU7JKPXqBWNoOYLxLOIjTYDyEDUqKGEnYWUxZZAvWQJp ICAgICAgICAgICAgICAgICAgICAgICAgICAgICAgIC WyBGXeUFIaECJuQTKuAGScKUGgOMIoPGCsPKZpXKHgBWYcZGVcNO5ZRRRzBBSzSHLgCKBhEPQgZCQsZD AgICAgICAgICAgICAgICAgICAgICAgICAgICAgICAgICAgICAgICAgICAgICAgICAgICAgICAgICAgIC ScHGDkVOIqLXFfZBBlNQHbQXSqNN1GMV72eWJvw6Y0 BXJlEQ6rbwn/Wc7QTMfpeqXyxIVuQP6UBaWrUO8ywl0IVpVeQJ2jjs3GYGdUSyYdY4Y6nFLtDGRgLOHB PcCuA71xETrwUn45XCrgMKIkMaVfYXe0Rn7EAiFqU9egMPNwGmJ0GBJtIzU9RVRqEqN0HOKeLaPhYJRd BDFtQTPsJMFPLFT7LQDpVfWvOyArPBDoPNdyWJCAKU VpWYQaDzZdUFeeIR4Bq9OafDT5OJg+Yb7XUE3xu6BeCCa6UsEkPH9hkl0PSXqRHvDsT2IhfuZ1XCOjDK UjCl2CHQVhRQWsuLY2OsPhSGWKTjGaK2XidP70XGRUZm2+WRdbjzXhDwbPPdQyPHZbl1WmWQi0HK2LFX TzVZq7wUMuJDTPKIX0PZDjzwyptU1udZFwJRjvIIYs nXZghWvqJD0cZAEfRx77FdRvZdWqBEJ3YMkjEK4yAZkhAI2PTNP2OPxvWHHeIOYxG7fPLtUwCLVdPwXs vBnbWL5EKbXxY5JexkMggEY5BtLeJMDUGu6+TVbohzFqWfzBAsU5AIAmj1FmZLp3OC7NBYGvFEnyYM3X MLOumD0uSZxoJZ4FUzA7EFTqDVWJYoCeS33bnKOmNW l1N7YpGzPtUJQhHmbdASMmBDncUxFySYWkImTtUFrmUB3+ID4+BEbaVN2UNEbmexKoVXDiPo3PUUWfGL AwSM3pYRVaSINnO9S7fCpiNJLRCiNpN8tzxgbtLA2rJLVpA474oJopbcNtQYXwQLHrPr0YGOGkSVE1FE LtlMNyXLHaXAAOQXneEN5NoRGdKFZ0nV5lLGreOWNh KSHhD7gXGvTzaTgkCP01oTwlxbNlrPLtKBt+Qf5BTQ1ao1UsPQh4ozEqIHlsXKJ3AZgvDGCmSVCrUILm WGZ7ZZC7EITCTgEcAQWgZCKxOFuhDCLaIZWxef4CQCQlOXG4NyWiVSQsVBEcHWCvBIyrGZGcUGX8ZEX3 GZViJVMhIG1AUwExKMUnRYFaPLxeZVReFRNqiy8XMV QbHRTmGesiCrKwNBNrFKTdSZnlPDNoUPE8HSDxRIXjWLRzTK0VFcNdLJYaQWxuDKNyHDOaVMMave0UFL ZxRNVmDCR8NUHoUJPoOCRnHIqqLOTlNAFsEpQvQJUlXIMvZZ4HFrEdJZWsNKI7ZrHsBEZgVDMhrg2TIF OuRAWdMFZ5DOXhYRHjXVIiUKokZRKnFFD2WCy0WEJq QIOkQP7UEdPlYPGoIBj9KUPnFEXlLJXgsw7PMRWnPUAmYAm9DwXlLLUqFGKvGAfbUUXjLNCcQCx1FWUt UTAtIH0ORiJwBPDiFbC2VERvQVPlHZBnun8FNRAiYTXoBXTfJQRhIIYmDXEhPZseXSYmVRF7ZEGeSVNn XTYhYD5RWfIhKFHhToqtXcWiXNMlRQRcpz8GHUGwWQ OoDAR0VbEuXNPnAUDxWDufGIKwNIWhSbK9ZDBbIBRtPI8LNrEfJOYtWsH8XCWhKHUxGKCtnn0YOMMiRC HlKnydZYDaEFAfPJLhWEnfLWIhWZRkUGK7ATMoCAWxFJ3AZqFvSNAjEbYqXWUbWRCtDLKrcs2BPQHoIW LnEQA3RKKqMYVxRLDmXTwtKPMaKDI1QCRqXOGyGFHk OS6AWsGcGHTkTdV6FWCvZUYaKZLhts2QPTNmNTKzMSCoRMSoTPWeUCLgWAvsVOKzOON8Rax5WGSaOLRq II8KVzMnDCTsGuV6DGYhPHDtJRYlnw4LBWLgBQL0NjW4ZGPrRWWuKCCvQQmwJLOzIBP6BtotVNAoKQFl NK3MGeHeKNLtWHv0ZOShFWBuIZUwsm2TNGHcCNU3XJ IxJVCaPDDwYCUbXEqxXPJoIYK2Frj1EAQwOVMzWK2CNuCcEPWyHFxdAjCePFWhIFEcsq8JPJAhTFX8JS ZuMNHqCDPuHFHxGJnbIOUjBAQ3VRs9KUKaXEJsKI9WRvQfRVPnSSH3BIKsLKSyVVDpuk3HFKCuNWV3WZ c4GRGeDBVjNJMyNOijFZCvXQW5OPfvHZJhJKZcZZ1G CwXiHNGeVRQbAqaqVBYwBOFaql0YXLOfBFY4OVY7RGYhZXImWLErPTueLRIaXXZ7IXjcHFGdFLKpHO8Y IeWaIDQkJUX7ZtOqXUGcGGUlfx5JSEGzPDB6WBj8QGZsOQWqLNZrPJzeWKXiDXF1QGCkXUSdOHVbGK2Z HbFzMXMrEEbpYBJxIFHdRSVwht0IOTOyNYK2YoY9Ql WbDCMhPAAeJJxwZFLyUGN6Jdl8FLTvVHJtOK2TFsGtPEFtERgmKsXqDGCuPKQhbr3WQUNjWBU5XJL2DZ AkKHRiLPQtHKthTBCeXCB8IBa3FDVwUUXnQO7HWzBiHPjkKNFAPuy6WLuhU4o2ISB5PE9GU9Los6HoXR InQKQCWTstYZ6udwUvEXYmHo7TE9qEEfn8PiLdBMS8 A7MoMUO0ViLoLpsbVGX8LhEjAmV7McEiIZ3yJMq4MAX4BCajQqP4BDFtQGOsS6GpZbrtIFOoLHFcMNU6 QaHuQX0PIl2GDfJ4RZN3aWPyAy6WJLs0NjhFItGfSA9ZOYq= ID Date Data Source [id number] 11/01/2020 06:34:12 AM [facility] Name Value Range Interpretation Code Description Data Catrachita rce(s) Supporting Document(s) Calcidiol [Mass/volume] in Serum or Plasma 35 ng/mL >30 [facility] ID Date Data Source [id number] 11/01/2020 06:27:22 AM [facility] Name Value Range Interpretation Code Description Data Catrachita rce(s) Supporting Document(s) Cholesterol [Mass/volume] in Serum or Plasma 127 mg/dL <200 [facility] Triglyceride [Mass/volume] in Serum or Plasma 138 mg/dL <150 [facility] Cholesterol in HDL [Mass/volume] in Serum or Plasma 48 mg/dL >50 L [facility] Cholesterol in LDL [Mass/volume] in Serum or Plasma by calcu lation 51 mg/dL <100 [facility] Cholesterol in VLDL [Mass/volume] in Serum or Plasma by calc ulation 28 mg/dl 16-42 [facility] Cholesterol non HDL [Mass/volume] in Serum or Plasma 79 mg/dL <130 [facility] ID Date Data Source [id number] 10/31/2020 02:16:47 PM EDT [facility] Name Value Range Interpretation Code Description Data Catrachita rce(s) Supporting Document(s) [facility] SUYBLn6sEnZUSiRak4YqHpKjGQHxQC2uedw0G9H5gGDrD3KsgQNlo6nwT1ZlF3WsUHIiYGNSCV1JbVFj jb2 [file] AwMDAgbiAKMDAwMDAwMDUyMyAwMDAwMCBuIAowMDAw DYTzMqBmHEJwBBEeGP8zWpAkGBVgVCE3FVUfHIFyNSCjlvGMZZJpTGIzAXn8LZHyOGUiLATtFWqjZZVt TXCbIBP1AKSrXXIkHS0eZiThUDXgBCQiCNElHOWuIAWdgeSUTXNrBDCiQXR7OVYjOWBuPJEjLQusCQVn QZWnJze3ZTElYDQwTM5fGaEfDVCmMQX4ZVXcJINxNF IswyNXGJXeRNVmJZO4HjNeQOVjBIXfLMsnOZPpLFUuKcV4DXZrQMHaEP7cApVjSIFwVLT8XcHjRXAsDD WqrvWYOPIdGNCsUIU5SpUhJWCmLHXcOGrfYEHxAUFmUJAkEOG7VKN5GYVkAsTdISgeESOWYBwOC8Cqfb IvOtLVN6gqPp8wBqTlTXGER8Dui9LvNGElJHDEQj7+YlP9QMK9wIEcTrinMVh0IDxwJSRKLs== ID Date Data Source [id number] 10/31/2020 02:16:32 PM EDT [facility] Name Value Range Interpretation Code Description Data Catrachita rce(s) Supporting Document(s) [facility] NWELCr6kGfHPNvTaa5PpPfGhXQQjGA5bpxv6E2X4hQKrR0OilKAcp5vaP4IpU7AeEKDvYIGDJU2EdISx jb2 [file] fvP/rw8t3//f6v/3Xx3N/vertical borer+++vTDR2+2VK/L75VP /+df/nzbh4M6kOh//Y5h8933iUG3gK3xu//xp+/++sN3P/+ynM7dOwplB/5rA/c4vf/zn3/6+M3+Zf6i yHmp3/40Ic9Qoum2sXqtPB/PP3z/p3//+Yc/dImx65oqhBpZFfPme004sFR/+vFXf/v37/+Qzc7Oix0C 8buvv/vf37/Yy5//5lzVD81/LRfzN2+NSDjie5uzqJ 2Ms989nR2f6RH2nVIU+er9Z+/msn0a9u0f55Hb/+TTT7/69svXsuXNUOjNDO+eI/1ruF6SgOriijCvtQ RsJY0HIM7dl5UcMsP6HSUgv8LuCNwfXUi2tIAfAPmiitJhz8BhqjshU4Ofb9RaWtGfTBWqFsLzFly6YP PgJyF6gVEbRdFbSMNnI0BiEBWoRqX9OlHkDABMHQ5Y YXJlbnQgMiAwIFI+VpTxLA9vmdxsVMPsh6ViYQbzGPbsJJQzP4P9oIfjETMmP0RvzW39LMMlX1DqvaB1 WED2LGZuNhNiRAKguKUsAQUyKBQ+MpKnSL3syzylHAVdk5JmAGbbAJM0iW5fFRsDSBERCCvHLUrvQwR3 j50ppkIYMVGmSBLsNR6LlmUsrIwttlGydIAiAQS8Dj QaLVP5ULcvAEK8EKZPECVjBWFdJKHaNVGzY2QfuPhlMYkEIZVKDKvCAWemCnBic6D6VDFgbwSJAJGHW5 3tYAbXCvJFYBgtVGK8OIIiRIfhV1O9DuhbI6KqYF1OE1FkVQCrSPKZOHWvaoRkFJ6SajFvaC0qSFaVGP SHTVhOBGjzUyR9c31bbrOOLUAwAIQyEYewAPJyITNb XOSkVEWfISDzAGDlKRPuUK1MZ5VqXZVrIKJIDTX8x5LgWGKhzwphfdcpKv7wtsDgLpn+IholJZXlb9Eg MPjlM5R3rUSiT4XjS0UoJX8PaGOpBEwlGXQhYLHkYIUsW350dkMfIW6+UQ6ty6AdSeunWGSMTHQmLYBt RZGvGRB8FeJgAJJbHPSqGQDhHvO1GhPgTqRUDDMuKE J4SNC9RUJfQLMpMRHpHRnfZVQxTRB7ZsIzKDKpRJViLF8kSdCbRQPwNtg0WSZzFGQyAMCbeoUDQFCiGY WfUNPdSZY6DBPjOHZgLSrmAMNdGJDhUQI2MCNyKIOaWA2cPbEzNPBhQJJtEyerDMQkGMGitlTFVBKhYB LcVRY9ZaFvFVFjIBXsVCpsYKSoRUZgVre5PJMkPXSa AC8yEdMzUIClGBN1RUgrKBDeXMTrunJHHQGzDLBcASLiGjUfZJMuOFHkXYycIGCvNMZyQuIhSPAqHJDv CH8sJnAtQOEnDUX7FOXvLABeXFVtunAZYZNtJLTvXMl3TEJkYHVgLRXlRLcoPVUpAZSoQXS8QUPcBRCv NS1dAxIrNZUwUUQmHUAcTALyHWXjqxFIQDCzMXJdJL J9WZPmXNLuVQTeFDxkGSGaGRNaVih7ENZaYCOkNG0uLtImALWiKCU9AYNtHCYeBYXjsdEYSHAkMTXcNZ AoBpDiSIFtOLAtJTtpQDQxQLYsWuL8GYEvTGXuSJ3oJlWuDZLyJHD7YvCqZPVyWHRfdsLBTSUcLTClCG I6MqXxFNAnECLfHQegDLSrYODaZSUaZVM9VHP8LZXi HbKqNQlqXRSOMKaDI6UbrjHqJsQVG3reIs4gCaGrLBEKQ0Zpw1EsXDUhVNGWLh7+NdI7BRX1oYNrPnn1 MDEwNQolJUVPRg== ID Date Data Source [id number] 10/31/2020 01:42:54 PM EDT [facility] Name Value Range Interpretation Code Description Data Catrachita rce(s) Supporting Document(s) Color of Urine [facility] Clarity of Urine [facility] Specific gravity of Urine by Refractometry automated 1.020 1.003 -1.030 [facility] pH of Urine by Automated test strip 6.0 5.0-8.0 [facility] Protein [Mass/volume] in Urine by Automated test strip Neg [facility] Glucose [Mass/volume] in Urine by Automated test strip Neg [facility] Ketones [Mass/volume] in Urine by Automated test strip Neg [facility] Bilirubin.total [Presence] in Urine by Automated test strip Negative [facility] Hemoglobin [Presence] in Urine by Automated test strip Neg [facility] Leukocyte esterase [Presence] in Urine by Automated test strip Negative [facility] Nitrite [Presence] in Urine by Automated test strip Negati [facility] Leukocytes [#/area] in Urine sediment by Automated count 4 /HPF 0 -5 [facility] Erythrocytes [#/area] in Urine sediment by Automated count 1 /HPF 0-3 [facility] Epithelial cells.squamous [#/area] in Urine sediment by Auto mated count 16 /HPF None [facility] Mucus [#/area] in Urine sediment by Microscopy low power field None [facility] ID Date Data Source [id number] 10/31/2020 01:03:00 AM EDT [facility] Name Value Range Interpretation Code Description Data Catrachita rce(s) Supporting Document(s) SARS coronavirus 2 RNA [Presence] in Res piratory specimen by MACKENZIE with probe detection NEGATIVE [facility] This lab was ordered by [facility] a nd reported by [facility]. ID Date Data Source [id number] 10/19/2020 04:43:00 AM EDT [facility] Name Value Range Interpretation Code Description Data Catrachita rce(s) Supporting Document(s) SARS coronavirus 2 RNA [Presence] in Res piratory specimen by MACKENZIE with probe detection NEGATIVE [facility] This lab was ordered by [facility] a nd reported by [facility]. ID Date Data Source [id number] 10/05/2020 12:42:49 AM EDT [facility] Name Value Range Interpretation Code Description Data Catrachita rce(s) Supporting Document(s) Discharge Summary [facility] ADZMTh6sZcRWZzJy76/TXPbwVMAku9DnNPbcFLz9TGfeODDwN8YsOZX7pL9tBYK5WLsKGkQrQbWnTSM7 lbm [file] RjAgMTQgMCBSDQogICAgICAvRjEgMTcgMCBSDQogIC DiMMMeLuYhLyNhMRTQQXbzHRWbDPLmSzHlBaOpSXNUCAawVRKtJPFpVfOwHmMoVQAXNg6EEeTzVKYwFB 1nocGceGU7VUR+Yr8KNMArVZ5OpZOME5KrwHWhYMubW9TEAV9NFFI2QB7WcEPaCS1LoZOWD4DoqXBeYy 2wJDXea2QnZr8hK3GAFPMQHUVaBYczSIyfJCDwNDz9 I3X4CVHlW6MNS113cMGxbQb8St9gB2ZESNkKAsEwGQohHZjrRSNyGGy4P5S1CFNbG3ZCK2WsArTinzPx Y2U+NaZmQALJMW9QAAHLYGt9J9Y3lIQpQ5Z2gDoTsNF1FF4VAW4KoBNatRNvb53+FgVNAlBtDTStB5IA DUOYUjTyIEyzRRzlJRJvRYj6M7S5PWMqJ8YVJ6eyU2 h0ZW4+OqTRDsNrQBOvLz8JLrCtLs0UUbVkEM0clz6STlkoXIHcZgdCEfc4G7tdsqj9aUSrFiE3G1V2Bg H7eGWhLD4BQ4S5dBIsGKU9VBDxzXQ+Xb9Uw7ZrEQKkICu6H2emIJBoUKUeRiFffN83E++1wtdffWT5A6 b3BUNEtEQzgDdVvoLiK6dNMVV6b0T0ZKi/Qn5XKOU6 iTp9vGKqLWWoPLk4gQ0jcMi7OaYwTG36KRTlWYfdcS7wTdv9T8Pfg2AbUs5tNp8ixMCxIf7AWfMiNML7 qjAjLeQNMiN8zJalmwdfTHC4D6e7uGL2Wk53l6zmmaPul6PkYmO8YUjsFZKdClCjtxFtVBD0orQnyX5c muMrHa1JFWKoVNmhzhZfGzHSJx5NIzOuJQ32HvxfpS 1ldGE+DQogICAgICAgICAgICAgICAgICAgICAgICAgICAgICAgICAgICAgICAgICAgICAgICAgICAgIC AgICAgICAgICAgICAgICAgICAgICAgICAgICAgICAgICAgICAgICAgICAgICAgDQogICAgICAgICAgIC AgICAgICAgICAgICAgICAgICAgICAgICAgICAgICAg ICAgICAgICAgICAgICAgICAgICAgICAgICAgICAgICAgICAgICAgICAgICAgICAgICAgICAgICAgDQog ICAgICAgICAgICAgICAgICAgICAgICAgICAgICAgICAgICAgICAgICAgICAgICAgICAgICAgICAgICAg ICAgICAgICAgICAgICAgICAgICAgICAgICAgICAgIC AgICAgICAgDQogICAgICAgICAgICAgICAgICAgICAgICAgICAgICAgICAgICAgICAgICAgICAgICAgIC AgICAgICAgICAgICAgICAgICAgICAgICAgICAgICAgICAgICAgICAgICAgICAgICAgDQogICAgICAgIC AgICAgICAgICAgICAgICAgICAgICAgICAgICAgICAg ICAgICAgICAgICAgICAgICAgICAgICAgICAgICAgICAgICAgICAgICAgICAgICAgICAgICAgICAgICAg DQogICAgICAgICAgICAgICAgICAgICAgICAgICAgICAgICAgICAgICAgICAgICAgICAgICAgICAgICAg ICAgICAgICAgICAgICAgICAgICAgICAgICAgICAgIC AgICAgICAgICAgDQogICAgICAgICAgICAgICAgICAgICAgICAgICAgICAgICAgICAgICAgICAgICAgIC AgICAgICAgICAgICAgICAgICAgICAgICAgICAgICAgICAgICAgICAgICAgICAgICAgICAgDQogICAgIC AgICAgICAgICAgICAgICAgICAgICAgICAgICAgICAg ICAgICAgICAgICAgICAgICAgICAgICAgICAgICAgICAgICAgICAgICAgICAgICAgICAgICAgICAgICAg ICAgDQogICAgICAgICAgICAgICAgICAgICAgICAgICAgICAgICAgICAgICAgICAgICAgICAgICAgICAg ICAgICAgICAgICAgICAgICAgICAgICAgICAgICAgIC AgICAgICAgICAgICAgDQogICAgICAgICAgICAgICAgICAgICAgICAgICAgICAgICAgICAgICAgICAgIC WkSRPjCNAePFKiIWEkUBMvCJQiQOSkAKInEJEjWAWsUNYzSTPlYRCmNLNmRMNkLQKeQRHdKPBgXFi1L0 gxNWZgWTHoGH4hVJw7Uv8+ROxOShOvTPJ7gfMroB9T PF4wl9HnWSeuCTMbi5AjMMg7RM8FXMVzEOguJA9UWYvfrw7DLHJlVKFuiYEGy0zvNqUdHQZ4GTMcAdtf EP7PYFCvE1hpegBoLWNeXFFFHNadDQCFQEojOUVSLUGrKKXiZiZoYJkxZK8Ov0UveUA2EUr+Kh9AGT2f r1DeIDbiWWXuGQ7end5YEZoGOcUbM2GrjeA2RLJkEN YfDa3EKZZfQHNdlPZqZWWeWCAFMsFhO8AuwU66TPJKJj7+LDsxbnQvYawMWvTrEZSfe7MnLTg8VH1TZV JsYZl7zDPaQApjU0euzgceTIK0oY2uqcbzAntbPPfxfFSloNKCIX1fhGKzRM1VHIA0ENDpSy8zTFIvHE W2RtRpVBKXNA4XVWNhGEQtbJVcXKYaOFJJGA1EPGve EKU1BZDtxdGojUQpZWazCJ7OYZTnncNrYmapEBPDLId+Pq5RVL8ca1MrSXjzDIXbBA7klt4VYWxYMdFz C0V8uSLmR4N0NFmmTy3WGORbUOBfIwthBPZIRRmyMD3NYT3elsX7UZ1SkSSsCZKrGCGssVFzOWv0I33i bIXoJWepQP2HKYH+Sharon+Er9VCXOvNWXlKKGwWgDdRS YGBhNoK0GvK8LEc5FcJ3AqOI25mXzezoZtKJoaXT4EUH5hYMVjWXHGIV9XxQCvbV3tjdOpELOhBAUYTu PtP52afQGjYNAvEZC4FZZvQh2AFJTpY6DmzbAnmOjjtsZmJPOlIMFFHG0IIGpartDvsBBazUfdOS40wR jrEG8HUc0CZhMdGF9kfc6WnJZbKt8KRYOjWd9PVXDr TIWdYCCtUFI6JWSsZzGaAHgkSCYgULBhCED6CBXaUUBmMU4ITdOqAMAsLZg6EPMfCCAhIUJuzo0HPKMb UDTkMRQsKLSsTHOsTSXbQLbnAIDfAPJlOCF6HWGaFJTvDA8HVmTdSESyRXDmGyepVNGhEZCpbj5EOPEc VWMnHAT2AEHjRUCiFVLcXRkrSWOlBRW4Bmo2OYWnAO WjIY8CPaNmBNIdPZa6YOZrEOSgPSJtnn4SJRRjTEThWCA0JVAeBXRvUDEwXRawKHClSFTvTVR1EYQwNQ IdXT3RLjHjACTfAEP9LCNyMWFbUKAkwz1ENTUbHXVlIkW1NbOlZTVyAFEkTRvmECMeYCVnCcT1YMXmFH DoRH5MHtYyHPQwFZB7DSNuRTXqAFSkyh5MVXMvPEDo JNSyRmYvCVKqYOJzERlmBIYfZBU8YGi8LUIiLRUoYN3TAiPrAAWvNZHsOUdkXBSbCGEoxp0FMCWdDVVw XAK4KsVyEMBbHCLaEDkiGXBrPKD5UeB9DDCgPBGzUW9NYiOaIXMfZVR2WnmcFZBnHRGovx6ANLVzNFJv ZxosKLDpODEaTDArLDxiCKMbWBF3Pwc1EWVjOHImQB 8LYdMsTNPlGLk9CJWbHAQtGVWbxw8VZTKtCAEqDHK8SDAiCIRpQCOuGVonFVPdKII0DKL9TGPiXIGiIA 2LJxYxSFKmHVoiWwiaOXCgKKClgp6ELZTjNUWrTDYySWAsQSWyXQTqVWmaQMJqIQU3JWs8GPJgKPMiIJ 6YNyDnMTMkIrEwSnBjXHTrDTVwjx5TAIIpUDQqTDYc YeAxOGKaABHeSFpfNSTrEGKvKXB4HEBzCRJtSO9ENuDfHRguUYMESbo7QDnmL5b5RAAnBu3SQ8Vvi7Dt MdSpGAOQHChhCL7fobGyMNQvZf1LC5mQFbxwXPN8XdN8EAW7KgAzSHBeMVZrN8W7RWNnQrL5SFK5Id1t SLA4PKnkFhV5WYOpO7NnWrS7BUAeQLz4VnR9QiKyAd DjJlYrTD9JWg3EPnC7VQQ7eZDeJb7QJnH2MJWMKjEnQG0PVWe= ID Date Data Source [id number] 09/28/2020 12:45:49 PM EDT [facility] Name Value Range Interpretation Code Description Data Catrachita rce(s) Supporting Document(s) ED Provider Note [facility] ZDQNWv3xNsEFNqRp02/EOKlkGUEct8BuSEypZJd4TWzmYPRqV8EiNIN8gT5lMTT8OOtFYnEfWgNuKNC8 lbm [file] 6mh98hdIbVdC6/FGtrbhQido/oe3KG1QARRT7DZWJJPMJ2VP/gdGzAf72kozLEmAL+jose m/fQPP1nGAa [file] [place]/knWiTOcXM62Q9rpJk2FfMJUpPSH9p6YHGuAN1ntoGEHRZGqr475WqUiCZYWlAZIUQBiPHV2qo2u5 [file] NdFJk9I64eyNYcJZlhJU5MONV+Sharon+Sn9PCJBjXDHz AVKvDwXiYRBBRaDtE1WfO3RCt8DmJ8TzOP59mBjmuzXyNVljDI7LLR3rFHXjMOURME5VuBFtqW6pshL1 NyTsTUTOChTiY24nbCAlJBYbRFY3XWMgVv6FBVYgP3LoowLioOzhetPjURZtWLCZIL3SMXafagLqaGAv dPpfWQ26bGcuWE6XAv7VCrPwYJ8ann7TdSVqZh9YEV L6Zz7YPTYuTOHiYIMgGAJ5RTRbEwYvEOdzSUNrYLYmYNH5KTQbDYTzTP9WOaVjIJXoWMTrJMxzRMIwGC Nuko8CSTFzFCC7Bti6MEAgLJGdUKAkKWjwDFZrNWVoLWB4BHUcKXNrUV1PPgVcZQQpMDC0VgQeFJDuXQ Xhdr8XYMWvGAJtFjzcLKMgGWSxHCWvKZrdYMMbVQV5 QUf0ILIgDLYzXD4EBzEpDLHeHIOiHJYiKCAkFUMhqe6EBGAtPGWgSRH5QALoPDAxIVPtYUonCGXiEAX9 WzUwNSJoZURuWN8LGmTxDCWpWQM8AYHiVYXuBJFjcj0SXRDoHKDkImM7KmVbXOTlONLnGMshRZCrOEQ9 AAhkXCYvNLGvAL8UVsFzUIDbNFBaKpxqTLPdKSWfga 4TGHGtJUEdAIbwDWWeCAHoFHBbZMrtHEJfNEJ6OJR7YBXaYPBuKN0QZxGyNMAlQwY4WEXwRTVrHCZcge 2NGSDjUXApWII5VOEbVUDgKDZmHVieUXAxBAB3FYL7VDNnUBYqHX2NOhVcEAQbMuHzMGQnXUWzOGQufm 5AFHQyYVDtHDI5IMFeAMTdTASkPLlaOWEnMCH3WCt4 REHjONWcWG9GShGxQVKvRkY6AFJwNYFiUUSjwx3PMRXmYTCmYnu2AJMiYSZdYUZpUOzhADVpEKQ6Odqv UOZhQEWcYQ5FHzUcPPThIwD4NncoTUTwVIFgur1XLMTgPHGnVADgXLOqRVZzTPZwLJxqIDRkUFW8VxP3 BPJeYIAwHH9YXbIjGAUxRqdkQZckYWFjHOJmrp5MEJ XwQLXbFSQ4AQIsTLOlJSOfEWycQHRhGYO3GgP3HERnSGBnVM2FPkTnLBZtBRO1OzRsFRDfWPBhty6ANR SfKKV8KJfmXPBjIAGhDJPiABgaYHEpXNAxIIR0MTRkBRFlRL5XUeSnNFJvWZP6TdThGQOuXHYrwm3JKU JsWXC0KiL1UtDpAURgYQSdMIqbILQgZDCsYzM9EKDa OTZfJR0MPwZyEQNyHEG5KRToJMOlMJAykw7CKBSmCAL2GHBdWILuXAUoYIXaSOciAAWuFJZ4NeItYJMk TWVeQC3PBvSsOHQcZBL5GpNkESHaFXJwom5TLOHhBKW0MJosOfFlPRWxZOHdZRqsETKtVFT0VdUnZUQf QMCgZM5SQiSuVQZnHBH2QQrtTSQyDHRkzj0FCMZeYE I9FbWcFvKyYTTzOKCrEGsxGUYfEFR5FFH3RSRwJCWvWH9QNsSbALWkODy8DxWkGQLkKWPyzw9PGKVtIK U4KLZ0CVBtDCNhYZHpIDhdPKMaKZN3TvHvBQAzUIFePR0KVdWqVIQtDPluEAxpCODrUEJefd4YZIRpDV S8ZNG1QYNhEYHgWQByLWpmBSDvHJQ1CkQfGWGiZVWh QR3XZkKpXHJnEUa7LZDtVJSuTLPwiz1MUFKpSDZ9IONiWnOxJKQeWLPdYKicPDTnMDM6Xab4ZTXaCLJi OL7FGvVbLLdiIHEBWyi5LWltJ8v4NKX9Wc4JX6Zav2JySPHeBZIIAJjuAU9tjnIwAKGnXs9NU4pYUpi0 ZoOoG6QkAwS5CEefLvU4JJYaXPOkQeweEnLgZ5QmSN 4zMVa0DcWtZMGgEDs2BBM1Cci5KTOzGUHwG4WoYIG5WND5WgStKG6XCc7YEiE5GPL0pXRzNc2RZZc0Pq YCKmIeSG4FNTa= ID Date Data Source [id number] 09/28/2020 08:12:[address] [facility] Value Range Interpretation Code Description Data Catrachita rce(s) Supporting Document(s) Valproate [Mass/volume] in Serum or Plasma 42 ug/ml 50-100 L [facility] ID Date Data Source [id number] 09/27/2020 08:31:[address] [facility] Value Range Interpretation Code Description Data Catrachita rce(s) Supporting Document(s) Ammonia [Moles/volume] in Plasma 69 umol/L 11-51 H [facility] ID Date Data Source [id number] 09/26/2020 05:50:[address] [facility] Value Range Interpretation Code Description Data Catrachita rce(s) Supporting Document(s) Bicarbonate [Moles/volume] in Serum 22 mmol/L 22-29 [facility] Chloride [Moles/volume] in Serum or Plasma 107 mmol/L 98-107 [facility] Creatinine [Mass/volume] in Serum or Plasma 0.72 mg/dL 0.50-0.90 [facility] Glucose [Mass/volume] in Serum or Plasma 90 mg/dL 70-140 [facility] Potassium [Moles/volume] in Serum or Plasma 3.8 mmol/L 3.4-5.1 [facility] Sodium [Moles/volume] in Serum or Plasma 139 mmol/L 136-145 [facility] Urea nitrogen [Mass/volume] in Serum or Plasma 18 mg/dL 6-20 [facility] Anion gap 3 in Serum or Plasma 10 mmol/L 8-15 [facility] Osmolality of Serum or Plasma by calculation 289 mosm/kg 275-300 [facility] Creatinine/Urea nitrogen [Mass Ratio] in Serum or Plasma 25 [facility] Calcium [Mass/volume] in Serum or Plasma 8.3 mg/dL 8.6-10.0 L [facility] Glomerular filtration rate/1.73 sq M pre dicted among non-blacks [Volume Rate/Area] in Serum or Plasma by Creatinine-based formula (MDRD) >6 0 [facility] Glomerular filtration rate/1.73 sq M pre dicted among blacks [Volume Rate/Area] in Serum or Plasma by Creatinine-based formula (MDRD) >60 [facility] ID Date Data Source [id number] 09/25/2020 06:37:56 AM EDT [facility] Name Value Range Interpretation Code Description Data Catrachita rce(s) Supporting Document(s) Bicarbonate [Moles/volume] in Serum 24 mmol/L 22-29 [facility] Chloride [Moles/volume] in Serum or Plasma 107 mmol/L 98-107 [facility] Creatinine [Mass/volume] in Serum or Plasma 0.85 mg/dL 0.50-0.90 [facility] Glucose [Mass/volume] in Serum or Plasma 90 mg/dL 70-140 [facility] Potassium [Moles/volume] in Serum or Plasma 4.0 mmol/L 3.4-5.1 [facility] Sodium [Moles/volume] in Serum or Plasma 138 mmol/L 136-145 [facility] Urea nitrogen [Mass/volume] in Serum or Plasma 15 mg/dL 6-20 [facility] Anion gap 3 in Serum or Plasma 7 mmol/L 8-15 L [facility] Osmolality of Serum or Plasma by calculation 285 mosm/kg 275-300 [facility] Creatinine/Urea nitrogen [Mass Ratio] in Serum or Plasma 18 [facility] Calcium [Mass/volume] in Serum or Plasma 8.4 mg/dL 8.6-10.0 L [facility] Glomerular filtration rate/1.73 sq M pre dicted among non-blacks [Volume Rate/Area] in Serum or Plasma by Creatinine-based formula (MDRD) 88 mL/min/1.73m2 >60 [facility] Glomerular filtration rate/1.73 sq M pre dicted among blacks [Volume Rate/Area] in Serum or Plasma by Creatinine-based formula (MDRD) >60 [facility] ID Date Data Source [id number] 09/24/2020 05:14:28 AM EDT [facility] Name Value Range Interpretation Code Description Data Catrachita rce(s) Supporting Document(s) Leukocytes [#/volume] in Blood by Automated count 8.2 10*3/uL 4-10 [facility] Erythrocytes [#/volume] in Blood by Automated count 4.54 10*6/uL 4.1- 5.3 [facility] Hemoglobin [Mass/volume] in Blood 13.3 g/dL 11.5-15.5 [facility] Hematocrit [Volume Fraction] of Blood by Automated count 41.0 % 3 6-45 [facility] Erythrocyte mean corpuscular volume [Entitic volume] by Auto mated count 90.3 fL 80-96 [facility] Erythrocyte mean corpuscular hemoglobin [Entitic mass] by Automated count 29.4 pg 27-33 [facility] Erythrocyte mean corpuscular hemoglobin concentration [Mass/volume] by Autom[facility] 32.5 g/dL [facility].0-[facility] width [Ratio] by Automated count 14.5 % 11.5-14.5 [facility] Platelets [#/volume] in Blood by Automated count 248 10*3/uL 150-400 [facility] Differential cell count method - Blood [facility] Neutrophils/100 leukocytes in Blood by Automated count 60 % [facility] Lymphocytes/100 leukocytes in Blood by Automated count 27 % [facility] Monocytes/100 leukocytes in Blood by Automated count 9 % [facility] Eosinophils/100 leukocytes in Blood by Automated count 3 % [facility] Basophils/100 leukocytes in Blood by Automated count 1 % [facility] Neutrophils [#/volume] in Blood by Automated count 4.91 10*3/uL 1.8-7 .0 [facility] Lymphocytes [#/volume] in Blood by Automated count 2.20 10*3/uL 1.2-4 .0 [facility] Monocytes [#/volume] in Blood by Automated count 0.74 10*3/uL 0-0.8 [facility] Eosinophils [#/volume] in Blood by Automated count 0.28 10*3/uL 0-0.5 [facility] Basophils [#/volume] in Blood by Automated count 0.07 10*3/uL 0-0.2 [facility] Nucleated erythrocytes/100 leukocytes [Ratio] in Blood by Automated count 0 /100{WBCs} 0-0 [facility] ID Date Data Source [id number] 09/24/2020 05:24:02 AM EDT [facility] Name Value Range Interpretation Code Description Data Catrachita rce(s) Supporting Document(s) Bicarbonate [Moles/volume] in Serum 24 mmol/L 22-29 [facility] Chloride [Moles/volume] in Serum or Plasma 109 mmol/L 98-107 H [facility] Creatinine [Mass/volume] in Serum or Plasma 0.87 mg/dL 0.50-0.90 [facility] Glucose [Mass/volume] in Serum or Plasma 92 mg/dL 70-140 [facility] Potassium [Moles/volume] in Serum or Plasma 4.1 mmol/L 3.4-5.1 [facility] Sodium [Moles/volume] in Serum or Plasma 140 mmol/L 136-145 [facility] Urea nitrogen [Mass/volume] in Serum or Plasma 16 mg/dL 6-20 [facility] Anion gap 3 in Serum or Plasma 7 mmol/L 8-15 L [facility] Osmolality of Serum or Plasma by calculation 291 mosm/kg 275-300 [facility] Creatinine/Urea nitrogen [Mass Ratio] in Serum or Plasma 18 [facility] Calcium [Mass/volume] in Serum or Plasma 8.4 mg/dL 8.6-10.0 L [facility] Glomerular filtration rate/1.73 sq M pre dicted among non-blacks [Volume Rate/Area] in Serum or Plasma by Creatinine-based formula (MDRD) 86 mL/min/1.73m2 >60 [facility] Glomerular filtration rate/1.73 sq M pre dicted among blacks [Volume Rate/Area] in Serum or Plasma by Creatinine-based formula (MDRD) >60 [facility] ID Date Data Source [id number] 09/23/2020 04:52:46 AM EDT [facility] Name Value Range Interpretation Code Description Data Catrachita rce(s) Supporting Document(s) Leukocytes [#/volume] in Blood by Automated count 7.2 10*3/uL 4-10 [facility] Erythrocytes [#/volume] in Blood by Automated count 4.52 10*6/uL 4.1- 5.3 [facility] Hemoglobin [Mass/volume] in Blood 13.4 g/dL 11.5-15.5 [facility] Hematocrit [Volume Fraction] of Blood by Automated count 40.6 % 3 6-45 [facility] Erythrocyte mean corpuscular volume [Entitic volume] by Auto mated count 89.8 fL 80-96 [facility] Erythrocyte mean corpuscular hemoglobin [Entitic mass] by Automated count 29.7 pg 27-33 [facility] Erythrocyte mean corpuscular hemoglobin concentration [Mass/volume] by Automated count 33.0 g/dL 32.0-36.0 [facility] width [Ratio] by Automated count 14.7 % 11.5-14.5 H [facility] Platelets [#/volume] in Blood by Automated count 247 10*3/uL 150-400 [facility] Differential cell count method - Blood [facility] Neutrophils/100 leukocytes in Blood by Automated count 58 % [facility] Lymphocytes/100 leukocytes in Blood by Automated count 30 % [facility] Monocytes/100 leukocytes in Blood by Automated count 8 % [facility] Eosinophils/100 leukocytes in Blood by Automated count 3 % [facility] Basophils/100 leukocytes in Blood by Automated count 1 % [facility] Neutrophils [#/volume] in Blood by Automated count 4.14 10*3/uL 1.8-7 .0 [facility] Lymphocytes [#/volume] in Blood by Automated count 2.19 10*3/uL 1.2-4 .0 [facility] Monocytes [#/volume] in Blood by Automated count 0.58 10*3/uL 0-0.8 [facility] Eosinophils [#/volume] in Blood by Automated count 0.23 10*3/uL 0-0.5 [facility] Basophils [#/volume] in Blood by Automated count 0.06 10*3/uL 0-0.2 [facility] Nucleated erythrocytes/100 leukocytes [Ratio] in Blood by Automated count 0 /100{WBCs} 0-0 [facility] ID Date Data Source [id number] 09/23/2020 05:10:49 AM [facility] Name Value Range Interpretation Code Description Data Catrachita rce(s) Supporting Document(s) Bicarbonate [Moles/volume] in Serum 23 mmol/L 22-29 [facility] Chloride [Moles/volume] in Serum or Plasma 104 mmol/L 98-107 [facility] Creatinine [Mass/volume] in Serum or Plasma 0.80 mg/dL 0.50-0.90 [facility] Glucose [Mass/volume] in Serum or Plasma 86 mg/dL 70-140 [facility] Potassium [Moles/volume] in Serum or Plasma 4.0 mmol/L 3.4-5.1 [facility] Sodium [Moles/volume] in Serum or Plasma 134 mmol/L 136-145 L [facility] Urea nitrogen [Mass/volume] in Serum or Plasma 14 mg/dL 6-20 [facility] Anion gap 3 in Serum or Plasma 7 mmol/L 8-15 L [facility] Osmolality of Serum or Plasma by calculation 278 mosm/kg 275-300 [facility] Creatinine/Urea nitrogen [Mass Ratio] in Serum or Plasma 17 [facility] Calcium [Mass/volume] in Serum or Plasma 8.5 mg/dL 8.6-10.0 L [facility] Glomerular filtration rate/1.73 sq M pre dicted among non-blacks [Volume Rate/Area] in Serum or Plasma by Creatinine-based formula (MDRD) >6 0 [facility] Glomerular filtration rate/1.73 sq M pre dicted among blacks [Volume Rate/Area] in Serum or Plasma by Creatinine-based formula (MDRD) >60 [facility] ID Date Data Source [id number] 09/22/2020 05:25:54 AM [facility] Name Value Range Interpretation Code Description Data Catrachita rce(s) Supporting Document(s) Leukocytes [#/volume] in Blood by Automated count 7.3 10*3/uL 4-10 [facility] Erythrocytes [#/volume] in Blood by Automated count 4.41 10*6/uL 4.1- 5.3 [facility] Hemoglobin [Mass/volume] in Blood 12.8 g/dL 11.5-15.5 [facility] Hematocrit [Volume Fraction] of Blood by Automated count 40.0 % 3 6-45 [facility] Erythrocyte mean corpuscular volume [Entitic volume] by Auto mated count 90.7 fL 80-96 [facility] Erythrocyte mean corpuscular hemoglobin [Entitic mass] by Automated count 29.1 pg 27-33 [facility] Erythrocyte mean corpuscular hemoglobin concentration [Mass/volume] by Automated count 32.1 g/dL 32.0-36.0 [facility] width [Ratio] by Automated count 14.6 % 11.5-14.5 H [facility] Platelets [#/volume] in Blood by Automated count 255 10*3/uL 150-400 [facility] Differential cell count method - Blood [facility] Neutrophils/100 leukocytes in Blood by Automated count 54 % [facility] Lymphocytes/100 leukocytes in Blood by Automated count 33 % [facility] Monocytes/100 leukocytes in Blood by Automated count 9 % [facility] Eosinophils/100 leukocytes in Blood by Automated count 3 % [facility] Basophils/100 leukocytes in Blood by Automated count 1 % [facility] Neutrophils [#/volume] in Blood by Automated count 3.99 10*3/uL 1.8-7 .0 [facility] Lymphocytes [#/volume] in Blood by Automated count 2.37 10*3/uL 1.2-4 .0 [facility] Monocytes [#/volume] in Blood by Automated count 0.65 10*3/uL 0-0.8 [facility] Eosinophils [#/volume] in Blood by Automated count 0.21 10*3/uL 0-0.5 [facility] Basophils [#/volume] in Blood by Automated count 0.06 10*3/uL 0-0.2 [facility] Nucleated erythrocytes/100 leukocytes [Ratio] in Blood by Automated count 0 /100{WBCs} 0-0 [facility] ID Date Data Source [id number] 09/22/2020 05:48:42 AM EDT [facility] Name Value Range Interpretation Code Description Data Catrachita rce(s) Supporting Document(s) Bicarbonate [Moles/volume] in Serum 24 mmol/L 22-29 [facility] Chloride [Moles/volume] in Serum or Plasma 108 mmol/L 98-107 H [facility] Creatinine [Mass/volume] in Serum or Plasma 0.78 mg/dL 0.50-0.90 [facility] Glucose [Mass/volume] in Serum or Plasma 95 mg/dL 70-140 [facility] Potassium [Moles/volume] in Serum or Plasma 3.9 mmol/L 3.4-5.1 [facility] Sodium [Moles/volume] in Serum or Plasma 139 mmol/L 136-145 [facility] Urea nitrogen [Mass/volume] in Serum or Plasma 12 mg/dL 6-20 [facility] Anion gap 3 in Serum or Plasma 7 mmol/L 8-15 L [facility] Osmolality of Serum or Plasma by calculation 288 mosm/kg 275-300 [facility] Creatinine/Urea nitrogen [Mass Ratio] in Serum or Plasma 15 [facility] Calcium [Mass/volume] in Serum or Plasma 8.3 mg/dL 8.6-10.0 L [facility] Glomerular filtration rate/1.73 sq M pre dicted among non-blacks [Volume Rate/Area] in Serum or Plasma by Creatinine-based formula (MDRD) >6 0 [facility] Glomerular filtration rate/1.73 sq M pre dicted among blacks [Volume Rate/Area] in Serum or Plasma by Creatinine-based formula (MDRD) >60 [facility] ID Date Data Source [id number] 09/21/2020 02:54:18 PM EDT [facility] Name Value Range Interpretation Code Description Data Catrachita rce(s) Supporting Document(s) Consultation [facility] DDUWTf0zWuISDkEj60/GJYdjFXKol8JxHVftCBz1XGaxEADhH8VbEDF5xS1nXAV6KFkRAtBiBhBqQPQe [facility] [file] [id number] ID Date Data Source [id number] 09/20/2020 08:26:52 PM EDT [facility] Name Value Range Interpretation Code Description Data Catrachita rce(s) Supporting Document(s) Consultation [facility] EGEWAe2pLnJTPmTs83/JBSycTGFgd8FjRZviZVv2OKgjORPxY5WmXDF2jT9hVZI7ZTdXOmCmNlVhBGJ2 lbm [file] Aq7Be7YcnoB1fjQxLYvzBOY7DR3DDPYVE0VERa== ID Date Data Source [id number] 09/20/2020 11:36:03 AM EDT [facility] Name Value Range Interpretation Code Description Data Catrachita rce(s) Supporting Document(s) Consultation [facility] NEGWOx4iVxYOSlBr47/NRZchLIZwx9IeDXjvIHu9YUueWXMgB2XeGGZ2pR5gZIW2IBaQGmDrAbLeZES4 lbm [file] ID Date Data Source [id number] 09/19/2020 02:20:12 PM EDT [facility] Name Value Range Interpretation Code Description Data Catrachita rce(s) Supporting Document(s) Consultation [facility] RQLJOs0dWkOQSuCj23/OOArzKXBke0RaSHkuKVr9YLsbGZZgR1SzDQP3bC5kVCU6YJaIRyZcWkKbOXM1 lbm [file] ICAgICAgICAgICAgICAgICAgICAgICAgICAgICAgICAgICAgICAgICAgICAgICAgICAgICAgICAgICAg YJXwRBUoVUTaWUHlPGZfHRXnGFVzPNIfNWYcZRTxFWUgMXJkIW5CUGEeOHQsTIMrNSAcDFAyTQKfOVLg ICAgICAgICAgICAgICAgICAgICAgICAgICAgICAgIC GdCBQdPNYrBDClUBHiHVOgLXJjNMChSFYrDJDaDUVlFHJrVJBwKKGuMURbWCPgVF3REXMhHFYrEJWaQI AgICAgICAgICAgICAgICAgICAgICAgICAgICAgICAgICAgICAgICAgICAgICAgICAgICAgICAgICAgIC JjFQNmUVHvXIAxCKNbTPIrSPXoAYWpNIFdEZMyPP2G ICAgICAgICAgICAgICAgICAgICAgICAgICAgICAgICAgICAgICAgICAgICAgICAgICAgICAgICAgICAg NMOuIMEwQMLrQOUvWRGvAOOrBXQpJVGsLAAtDDAnCFRzIXTqBBZoUY4HLZWfHXBeISZrZDZsMRBtKKOz ICAgICAgICAgICAgICAgICAgICAgICAgICAgICAgIC GgKFTrCUZwKPZlEBIgWRNhQZFqJZKoBXGsQGUvKGScQNLqXDSfNFTaJXNwWBOjEYUhSH2VPAWnRVOvZK AgICAgICAgICAgICAgICAgICAgICAgICAgICAgICAgICAgICAgICAgICAgICAgICAgICAgICAgICAgIC AgICAgICAgICAgICAgICAgICAgICAgICAgICAgICAg QH6ALMBiKPRiWIEzMNGjCSWjUEAkJFPaIIVpGREwVVSmAKCjFFGdNHQwGLScONIrZZMeXCGfMDVcQBEy WTAbZTBlAQIiVPBhNPOpVKOwRBHfQPUpNVWkYNPbWXMnVXSkTZJyRBLjTW8AELNmGYHhIGCiQSKwAHYp ICAgICAgICAgICAgICAgICAgICAgICAgICAgICAgIC FqGTZgNMCuCNNaTOPyEUNpOUCmQLAlYYEkNFDcNXZvPNPyNAMoWWIiFHVbZPPqPZPsBIXpTB4QBHRnWU AgICAgICAgICAgICAgICAgICAgICAgICAgICAgICAgICAgICAgICAgICAgICAgICAgICAgICAgICAgIC AgICAgICAgICAgICAgICAgICAgICAgICAgICAgICAg XRDxEQ0WHSBkHUJeAKXzLLOhXFNgQIIoYLRsBUDkNHWgWXTzEQQeYIXsEKGhXHHuXTOyFRZgGWZvLISg BPQlWDGsDXVwLVSzGMXjSVDoFNVePWRbMVFrQWToOWRzCGZsBOCkQUQyGVCxYT1IDJ60qCBrf1S5FTEj RI7ogro/Uv9XIEnlndRtpRDuDG4PXkNqCK0kug1HHa ZnUG1mhk1WCRvFUbDyA4N0vQIhVGZeUGHBUrDhI18hKDmtPd31WJknZKRmIhMqVHo2Hk6EFaXiU6poZM ZzIyB1HWJfHeP0ENJcCfNmNHouXP4Qq7PuvWFfUVd+Ds0HHY4fl1VtGDnqBfNrWN5uvs3EIPjXBtHcU8 QjkcC0FOGjANDmWx7HSFUkCOBzcPArEdGuALPSCbEp N3NkiW13JYYDEn0+JAkluoGuGqdOUjXiGTVdm5XuGHd9LR4YGJVbYEi6lEZpI78zg7DriXZoBapaGvG8 eTXoBJ0zNTVnt3IbSBXYlOXkaJHtQRArIA5yAE7cAEBmWVHeNuO1CLJSXJ0MKTYeNZDdqQBfPJSzIVIC AZ7RBEjfUOG7SZIdkzLrzQYwBYpoEK1ITMRjhzPrEz IgMCBSDQo+Pf6SYL3pt2EnTUfrVGZkNS4sba5EJWuZHxByU2M9nSSpV8I3WCcnTm9KUMHmNNKpAhVhMD FJAObvHO8CSY4rryK3QH7YoNFzFBTjPYTkpLNkFPb0B36qzLAlIFnpLK6CKOT+Sharon+Il6IQKOpMTWdPI WcKyOqUDUSWrAcC8UoU7AWb7AuY7MlXK49fOzyufOn JQlvAK6UWJ6aZAHuYBESOP8PbWSzfP7oryIqPbOfJUROCjLjS76bbDHqXYQyZETbZGFvOe1OPDQwO0Mm piZhqFoiuoIbAZJjPJMMWG6PYCmbrxShiDApcXsoUU75fKehKI0TRh7QBlDbOL3rxg1GlFOlEq0ZZAGv FC4WFTMfRTAvOJNbKIB6QLEfImCbUBsoPNOdLNXlPM U7MNSqNIJnDA2IWyOqOEMhAHE9SIWpQYHkRVOfxt9CLVVvCROkIeE3ZjPuGBPqGBPjISwpNMHvNCRrMO J1KZJfUVLvYB5VPqSrHLJlBQK1VODmJGYuCNHlzn3GNTWnRGDyNaT3MVEuMHDvSLVpWJqtHBDrXLY5Aq T8XSMsZGHwTM9RCpJhEACdGYQ2FEazSCFnOTQpyj0X QJJzQPEoEzA4NtPqSQNrIZPbRYwzYKAwVUO2AHpxTENdFIYaSY5JFdMbCTEdVOV6UCRwNZUcOUJcod7V EJYzSHHlKxczJdDcRGIwCOKpAWzuZFXyYKG8ADL0IBBuBUYhFD6NMjIoTUFoBGkmBJOhEISvRAZbzi8H ETUhXLWrTGT4ZvHoDRCjFVFjGYkpXKDqTJW7PbX2MF CzQDYqHZ6FLpLmHVBuMYm1VCMcOTLoSLZzws9PMVSrHURvTLUtKgKvLCQcWLNqIHajDMEmKVZaJmY3EI BeYSNoUR1CAxMyXLCpAIZ3YOWeFWOkKYIsrz2AAUWjSBZkLHVvIkWsDOFuRUMzWDahXNZmTSZvKhi8HE LsRHRfTY4FLjRdUAExPQV6ODjfUAVnLURpeq0VSUKp VABkQnk6WkWbYEXwZUDjIPa8kzRiiQNcGBr7QF4JA4EkffYySvPQTo6Vd413IBG4TLWwFd2NT8byWi7a ISEdYEFUEc6VRIi0KmE7KGHeKxZmJTSbUPv7CJi7LnNdLcsaJCumFlusTEB+IDwyNDZhMWNmMTNlYjJk EViiTWv3OKCgDNYoJ2VjA1JsKP1yVGVKOe3+JXalaXGyqGcuSFZXKoQoDHIvNUbyCLVACu9U ID Date Data Source [id number] 09/19/2020 08:34:13 AM EDT [facility] Name Value Range Interpretation Code Description Data Catrachita rce(s) Supporting Document(s) [facility] ONZZPz0qWgZJOkPjj7QkMaCrUHByLH8qwgs2U6B3nTReF4VcwTIef2svJ5ItS1OrEIUqGKRJOU1KmKIp jb2 [file] ORvDAfDc8InGPDCFTHbcqAMNECNWjbwtQPFNPPhOVz Pry8GEsObIBbEri4FEkGqIVpBok3HZoVwEPiAoi6TCqZwTDhHchIAX5cPEGo1UTEY02oITAd/Pk3FWuh XYzGpkTTgWUMNb93wxEYfAEIEq7ZeYUFIOFSIW6OzWKETCPIAL6N+7HcWoD7DdLcEOEO9HMRK2QkTAsU WCbbXJbFqq4ZOjfnw+7N/MqMpv0V+uEKutVy1WpRpP tIUHzi2T5osSOH5hSGv+FzS5KIwtxaDetPpIXvQv/blK2wVXMje8ByhUEWGgvdGFybNliBYcXeaIxQjd 0OLwFqSPutXfpQt0RhxggwzV72qGiRkv8KwD6i5MQZ+9JLQsf5KzvHfjZZvFgAQ9B9GrlDY1RzX7EVAk SSbP4rI38bFFK9Bp7u8xJ69hYbP5vxNdJpTkcYtMGc Ll+GAWttZ4AeVYW4ScHDWXIFqTXfVs7KvNNHcmUZwveKufNKVNryMc7g1kXkArlrA5pl4f354WpWs906 SBQ8xd978/ghjdQKtBb65d06jtSzC8vP3DMf7zBiApZBlcH8Y+UO5a1N3PWybz2sI2/kuLCtEL16aqAD dWBn9m89y8yeh6vdof4H0N7PU569Y02Q5bWM0zqVmj DxzjKQ7/+GF/BvDc42UB3fyjPa+eYaqEnVE0Avdt+ErpaUGwvrN3C+9uMWXcMHdCdSPVElooMVF6ao3z KUZ4YZSjfiw1815l/MM+AsIS8aF7Q9J0r3L3uoy2Ios2DNzBOYbXqZY+JEgkgQucfCFiEpTxEpIpMIdb TjmTtnVgRXfBPoIwo4FYjVsSQcKae6AZiJfLCfQnqf +IU4v6hPbMvql4n7bqd36q+Ysx84+gNdHWOknPRJzEfq8G17WmG383pW/32wZhZHDKP3JsBOtiofVqUR WzX0O88Iab2kd2yVfnTwkEzjmBnsXTZMXGtfKiGUMHMuLEjCX4yRKV/aXhOGl28KdbNFUuGFmT/ZcvkT YkDMYz8QEF/iPfYcn4C/vQRTQE4Q1eapYzgnETAdWz KTJFfrqCB1rtgr954iB7F5HY61qu6ml55vTAFDzK3U0JTAx/5UZgyp4zEWW/py7/nhiKe2k/+O2Ny7/X hh464tk4TX110/B8igdm4h6RPsewzxjb61TFZx869+yWco4JGoz0r/Ie44U8/qn05IZjl4l/1gr9Hi1B /TSVrdyhS1VoiYhP/dCuCaiwD12+y2Ex/n7qGL1GdK tHRsHuvM0yjJ53f8bC7oObnYLx1JbWWPMRVXqr23SWTcko/PH0s29hwh0TY9jb29HDx52fV75h7wG+7c w9i39tk4F19725vI5Pl+1a9arN8+5eim0CitO2z01uIJ88sFs/CnK/vnm1uE9ICoN8ua0XxYqSSD+Yariel GBW2C03TYglp4or5Zsnd4ykF5oG1ZV07yG03y+SC/0 mebbfaTZm0GZx8OX/7WDYRRIII/jO54D+GOlKQz2DD2wXF/Hd2+hOd/oYpY1ZqQ4I8S86+BTb1AU0tK3 A0VkQctKO/8GlHwwuWZDUFwHaUkXtAXcUwe3E0xtdkGfYVCDFvDr2N6oLXE1ZFsDnqPe7AB2UscZMLEO JE2A8G+8FsIhZ4F4B/GXGYYx0w9iBvZ3TFPECdKxuH OjDqwGAjucFGcksiWJfmhviCWxGZRCZac/JDak74LwMjrMA6fSbn4sEkCGSzjg55ug63tb3sNjIqoWxW lL6AtkQPn+x8Ann8lO7/gxL1kvT4lxI8alxBsfOt6zvd+XLssozrtt2HKwJspNJg9rZTlN2KVquys6jt hJ3bouFruhW/gi9/4kMQESJCRIkokUFkEKEOkjpI/G fubK4cqdDCFHKSBhrjPCYJkRHD0/q1j+EdfaN270lN4gQ5LvbH2qeWjuKF0fTU7mwL46mii9MlmpdQt+ KPU7gXWNsIkPWPLEp/1eaKQPSniNCkC3xPVJMFOQnFXbtCqiOzxfIGXOlS/gOf8B/0WEHKuA41GGv1Vh cRy5/7PCj2cMZ/cYj1A0I0EE7VVF/N7/Hcqg4N05cn 3cxuhmy8+/LUL7cM2PqkudF7Fq2ws/HevPJ9g+Ox0rp4sbijPX8ugaW3XXi5L1p0bxhogPqCjPnkd3B1 D6h8xjzhtPjdpUqgw+B3Y5965dzweuyyeEygi+V7G8569kiqxqvRyErel9R3U5175lmduwqLsAkot92e t3nuNs/g9axdCGkz378r2L8jh68ch0fjvc+7GvtYcK d9Wrm75/a3l42irR07/Y8/u/l45pkzm+qG29TN28Rk+AK+gH8/uK0v279y6CkZ8Co0xtNQ3Eb3Pk1TC+ An+Al+zI31HkOR6EXlHTdv7pbKdAdc1fGgezZC+XN3bZiKWsUwVj5PrUz3XiLg2FTXr5EZHa4U2eZ0I/ B+L23vdOklcQbD2aV6D+VcxRqI7oB5N+Pms7pRp73T E/wEH/VWgHbs66X7XooB5dypKxqskEdwt6Pio9ePsU1sXvW5aBwI1oFiUJ0VvWgYhL/Bn+DPw/frwjH4 Gu1Ef4kLw0l0JHBYP/TC5RdafoZixInbfNyml6Lja7bJeK3iTyNIrMrNMnFjTZ7I7XV0Eq8LT/IG5A3I Y1A3YT5F5bI8UBjT/NbXwtU8MtJzY/050Z8T/TnRnx IaRaVCnLnVCyYkXe4YgYt9H/Ot0Q7Dp5Q43V0P8xgzyjCat/D1q+k6y3BRyKK8iMeKyfCiOn8JlQQ8C/ FE2X1UV7L7MB3H7jc7P+E5J/bw4HmvbNY1Ui8AhDlmlXL5Gm8RhRnkxBY8Wj2LhUigdUN8Yw3DtEkk00 T7nXi/29qnbY6/vvcKPccCvoB/2N90OZ4RG/wBvqEd AypPahDjsMbQLbUb9EaeNtOmiS/jD1StQbdjsG4thN1SWGnAz3K/wD/vV+W5TwNB88NUuKPcS2HM6Ctf SRyL5VQ48ifyWQ/wBXwBH+5W0Y3E24zqctVcIxSXmFeGJ/F+Tq8R3K5H42alr0WsreeUwAbuIoUZI65P 8qdm8AfrN9cTa7a/6/iWt/g0ff1lQ3v4fZsyyomUq8 e9TjQvqk+/7N3QE3w6jU5R/HT2zoHR6255mqysZkS8AOq+4JQ7Vn8t25e7cWJlY9mBxaix9XvR16LNM4 ZD7W/3SuY/8HYoCGSe5Zj0FD7EN+AX+Im2lUK6jcrmaGK23T3++Dm+5d3Ji/4aM26RqB/T37tFw6j33N 0zRZiOblM65rmuh4p5Dtt/o19s1eV/wS/wz/dIfaL9 th2k5qM63pagfT7D3aM1udGB17C/552lA2gF8Dk2SbFbAbkfgltcwCCvE2KB1Ih2Wj/jNzB+t123pjt2 8UF69Ov9VHubO0zb+1lzgD+FUnw39foH9sLmtWI25Jj67fT0bQ/KTZ79LzXzuDiZ94zUZ04vB69Cehdr is7OqaiKysgreh/28UveK/h1cM5AU0/61lhTE9/7ap 6wm1cvDWj6dtRaCZ/h1hUsng63p5YZHs4RafYY0bDz6uL9XT1GH589BkoNobWr/J2J28JcpuKQlvX2dv wr7+Fv0uiv40F4HAL+J+mfgctyAb2x4kSjL7nindu5nKX3Yb3x0nCsa5kdWBrMMgHwhEbkg0ygUtRJv9 A/wD/eprHsq+U3rzqrd/koxD2K9MsnhlP0lvH7Xs2H fx6+lCW33AV/xJlUizj4QMQF5Ga6V1yU28S91Q60OD/yCuSVBL/AL/An+Ge+Jiek65Rikpfb6Ao8I32f vC5X0BuX+3ucpC43A7D3TnezOZ/t46c/Hi93fWd4qo3P/AL/9Oeh6M/Lvhp9/IzrseyreyyPZV/1sYKv 4I9n/hnLvupjA9/Ad/SeiJW6MdvTa/7289Y3C6/41z q+5d3H4E/w5+Hf9tU1+/ien/M+vufnfQy+PvP5vR/mOR7gD/ANfAPf7/l/tel+jgP8AD/BT/Ik3r4Ac8 6OJ/jz8G/7qq+41sp1bI6I2+6X5/iWN/rYz/VKk4Ld5Ao7ft7nrh/4jWVe3Jv7afdlFLzTR5Jhna+QNy PqRGk2y0KGjp1mJ6l54DaDg1r2a+ySoq9Bi9t15Y8B P04/X/CQRkz5pdaoec/3JufXpe5y4JqYi66x9gl0Gcx2Oz2Ln+8R/FcD/quR5//+yPN/f6SD7+AH+Neetu LPbqsBXC42p9PbrHw/KAYE+f//qjzf3/UBb6AL+Ar+Ar+sZ9H+6/OxTXy2Uv0pGhjsoV4qPpi/H66cfjb 38L3t/D9nfj+Tnx/J+Sd5//cuZgiOnB1oId+qzHxfi xg17J1zUU8Pu9NsLcZt/cL/9WA/4bNtjCtp5Yg/N+69dWwhOpaLOtKi6D/tPghSKuG88QN8EF6JP/BL/ AL/Ak+0SAYC4RP0jAZgiHEFmd3ieZfCttgy4CI6dCi+ydK15bmDMf6qp79yu5H4whaSl0/PRkhfS2Ecn mooaqrb95AnzG/3Lue2sN+PvfV83/BdOB8w/kGvoMP eWFfmULetq/6ZIdNx6GcmS8pt2Ph3sbnr716dmoKZrE+gq/gD/Dumgk780S/HujPA/2H6BJTzMHGOsEL B22gPw/054H+SBMaDy7B2I9C/fkKuhMuCYJHPxGJS3hQCV27jJyHrgmyn0/VxwF+gJ/gJ/iQF/FBQ3zQ YA05fPpF3TJRhKA7Jyt322y+DcjhQB3h2wwwWHE68F DrVZw8Edqu7kpitxhf0C+O/tz+qz4+jGmyKX2mk3VcIPu6b0NZf/pWiJ3L1LK+BfbM5D3Q/FeG+KAhPm gIMssgsyK5j2N1t/vhGW2wiJ1t3iXY+KAhPmiJ/dikx1VpGQqQMV3q2W5O6PsJiLFvkdjXmYeA+KAhPm qSZnglc7q9dKQ2s+G8SpyaOnjyWecWYlmbr3a5iJA+ vAHvoHkSlo4zjP/N+/iWtxb/wniBj6bwV8/4c53/knf54e+9Hs/unIivvWzW3S2u3V2x1O2p6Gy/5FXt Y/RH3zpoJze+l016l377zLV5Hrh86G/m0fHA76iXS36mW30j5tG88/UIczm3yxg+R/O8opigk/y6wBfw WAuPC4Tee/fUr/Y60mtMR/OPe88b32/zZV/1OYHzE/ nQ1LlLU/OVw75y+K8c/iuH/6qKnJefPscizm8pd0ikx3Nv85EzB+iv5daGh+XLvurzA+0k+InzC+0U+B P8M1+8Ow3IlVDuYwtOrdq+gn/Gr8N/9Lgv02U+g+/gB9o5/iuH/8r1+DOqbr4ivI50z9+wiSq3ZJ91B+ /1V/c5WH/moW653Rxi6c898vY82Vcq7u0w31fsP7Z7 IaP98/d+jOfYwb/9G/e+oHszxsNf/iq2gNzV712K4eey18QaMffwu/xzP6bleQhdh1864iviR/uyr/p4 OF1LpUq7onuAX/uqj+/32+tb81qsjs43e4/ABx5oHozlAtaQR4mC7E//Lkfyd3D5Pz/Al/O3h49cpbsw 75JrglRJD8oCblb7Fd3kX8TOKzJKV4lEVzV0tP6b/v BQUdtnW2zYmJ741X7HQ5NQCe5rAD1RChMmNGcLnxDEAt99xeGdXsrbn45cnG8y8qMkYiuRF2qxx1LzUm /AF/AxXyE+6In32/HBxUd/TvTnZV/tY/CHw8n4lvt3cj/5IkvYlnttXXOs5qtRn/vpn09btHoQr8sO+A q+gj/HnYJxdx510X33XV5//JOLv/yT6/ier2Yf+zm+ /mLoEJy7Q/u4wC/wJ/q0B1uGimK95m/7FV2s11sZiL1/+t445bqUU1La3Tz77/ir239W271uogrLu4tD uZpwH05LF9Bj/vY+9nN8y+urzVve+/daLKSFcHozMClZQ4Md7N/wDXwD/3hD9uws0hPs752LSK99tf7k +Al+gV/g3/Kn95l99es+vu2ra/Dgi2OJO450gjOmIK mnWik3U7nBL6IVWDnOVmmP197GoB+aicL1vcDgg4/Pdz/b0ZoE800A1qLi++rqYz/RKd256f5OiwNBvV /jN/WY06BTPxv15eKFP1/Vj2agUt9u/pHbSgx6lG2XPtRJ/An++f7GON/m8Ctm6r1yt/BzlupqDjpc6I rpyd8Pl6N+jA2K44KB6XK6dK4Y9x09AOyj/Y0xwT// j8LO/6OwC/wT3w87/zuthTlKm4iD+xh8A9/Ze0mtrJ6t8tL/tin3jM8BwN3A3qQHhhiPCyM2GpXrrpL4 uoKv4A/wB/z12cxys/zApRpn8Z89xE/rG5xV86ATTc2L9hLxeZ9+7Sz7ah+Dr+Ar+PcAqr1niKuok7Jf kZsLyMJmNuNQeNEP2kkoCtdQ+MDxik0EBznz7T5Tt+ kNec9uyWfdd7ItsFzMezNWHxT8sR/VyNGSn0CxFnHXxX6A6AcR+yrqAl/AF/Pyi3AaeukRvTotGI1/C1 Hn/7BWap4VHtd/Cqy/kyA5eaJ4P/ed4J/4TlDfomkUF0TfakV7pCx/E+S4QbqKoL+ qJ+Xni/S070dk3N/oz1l/FPPHumKc/08O5o03N+AK+ gH/ivluYm2hFx4Of7Im3Dd71wbx/VcJ/lVfi/RI0TS5ZW5I//woXewytpXy1QF/AV/AV/AH+AN/AP/72 FMgr5/2mBPgB/vm/a1eHlgS4Yq5S/3x/U8/3N/JZY4RR9IT4WH+AI8G10VXdMklWcrOt1SX7wd0G0WpS +crLF6tHFhZvaEmIj0ZbTUbF3I7Jr0A/D/Rn2FcJ+y kcBgRhm4S3tySgggMkKUnT1V5Bm8C/j/V8JKwaKpdTamAv7QE1AlGn/Qlc7F5U917M98r3OZS+mHb8sb vxp7i6usjiF2/sOl7+9UEG0qnuka/trOdPP+v504+/Lf1627HG/YbQA5kIY2PS/DexfzAd/Rn+q3S8Xz /f3/ZeICoQA5itr/ubmMu+fe6h2YFt2rH4N/x5+Mu+ 2sfgC/gC/evp business development/FOvYz/EAf4C//Jnz7jKuuUz+oLitc7bNCff9EgUtFKy0Q9ZfDRq/M9x2Oqy8WiBgNdyx TMzPWH+VWH+VifkZ/qtMvN/E+27645Gaq+9R4nsE+cnzS5Im/MzuALiqzMhW88QN15hwKRk3vtdt3eb4 n6vte9GDuj53//jrso6/LrG+UbxLQdvuRix0Glbeha 35QatdB9ut3V5/OgnVhsG5NsVz16KSI5afVv/UWRazl6BLtB/xOQCs3IJ2/Ff7+CPtah2W6t/wMVA8rM e+o6jHOrsU27mcLp6ciAnhwkBz3vx7QsT+ruzQo0Wc+7mu45+s6/ux5xbsr30S16//xgeE7Dwj0+Cf91 vX6c8F+9qdPgFxb4F6QnVy2ijvi7DrDSdClHO29ef/ Kjn/F0oU5w/wB/bIJfEArDdBIfF8GT/yyokvFNZfFdZflUzwIS/HP9Ec0Ul77bsO+qvC+qtSBX+A tG+6l3Kl7CZ9Wo7m2OsPtKUbuxg4WwF/HcBqJcwGZH2eSAiTD2JE5QexIhA3bKr9Ms6Ow/f7jcuxeMo+ 4vxEOwV+gT/BP9/jcrV3RirCE/AF/AG6ODvm2lJB69 VfyTr/lvda/AxyEnIz3hp9ra7X00zwly9c7+USI5Vl8D8/3F9zolA+fR/79t+Wn/8L2dhg46LIBojaqZ fwB/j3/Tb7tQuoy3/H4N/yxjp/+Z/MfGYd6Jn8Dx7hf417z9b1+KznLz/r+Wutb9/B7Oa1Cn4Qt+AP8A r5we6tuc/3UlCNfTrAPxJeiD4oD01e0lS+hrwBeQPy RxNFdDh2f7e8X9LJ+Aq+gj/Go4j152Q4ev5l3bM6xeKms/6Z6M+J/xtdijTHng35rswpa/Yx+SK7rctW sluXP2dnJpaIO4ko/VwZGy9B5ut/VHX+Qop0C0QWp+c282pvBNS8QLD4ay7//arzf7+Yg9JCc8EUo5TC 5xD28yWjZ7ROp41p4mi04yi8c54H+AX1Zp9Ar+CfeH chP0P1/rX2n3V3R/zFi0MbpHXW/ol3z+vE9+p39xNV70nXdnuTcaXlEW/HI7tedX89wl0O1mybzcUP/M YdQvkT6Jd8Df+EF2naoe4eecsJ+vpU0n6D39lp8avXUe94jfq/Uwx8A9/Bd/AD/AAf8mL/4MT+wYn9gx P+qwn/1YT/asJ/NeG/mvBfTfivJvxXE/6rCf/VhP9q hk010i+a8F9N+K8m/NuH191o0c0S2S+vbqsBvy3UH/sHJ+huXsxfjvWAbvC3H6E+5kqWPjWzyGiNtam9 fZvzl7hO9v8Ixj/4nVh/NUeBX+RE2gG59jaD4s2xJM/igxP+qwn/1YT/asJ/NeG/mmbg+3lOO/tDpwX4 SN9ZsyKe/nsjbqB0Ji/95uOjGo9P2M+xvn0i/9V0jF /H+EX+qwn/1YT/amg7A4a9T+S/msh/NZH/ajrkdciL/OyK254p8uxAhI+fWH81A/RikT7IV70/hRl4v4 H3G3i/KsM80YN+A/05HPzA+HX8AH6Z9bW8JaVjeMrDpOGvTb/IAK7SgcqIG+uvJvYPzjzrzSbWt0+sb5 9Y3z6R/2oi/9VE/quJ/VgR01ur2fjY2RsEfjyoX/sH J/YPTuwfnNg/OLF/cGL/4MT+fMf7w9FL+AN8A9/Ad/Ad/AA/wE/wE3zIC//JDBxgzSzg1yIwleeonfr6 Lp3vbXY5Mo8LkzI/cGL/4MT+wQn/1cT+nMp5vnR3SiwLv1/bI0tiosgdfwc92pBm8xyMM5UKLSjg3fx/ F2e8bTWO3MzafNgwwmqAjDqZTsXnWtpjHlqpEtXWRZ NSHCwrS3KPgUeGXQz5bCH9gWqMVmI3DiGFsYKO7XompYstQAaWsoPbW3sGq9XGE5vMz0fiXDLHlNZ0xk N2Onl5EWcgm+35a3S7VFktl+64ugFla+RnaqluZvgJsCb6BLLUlmrk3MMnbH0D5LmAMa029pfeLvWqqr 3fdd6Y63YgUIfSelBxUGsCETK7IMitxYgbj1k1CD5H lWtG8USDn+CYai/CPVIgGD7HqxClWjZJgZEZVgg/R1MGUTKSwWneGwWRsIOexwv4ky9o3V+M/UYDi7oq 3NovJM7DQsyXqVwojTuyl3UvCR5oPtd9uju3BVoIEMZFPCQOQmilxep1mMh5PNWFgdRsNPBzv7AqsU4o l98JQLF4vm8DlKw9bPiGO0TEDq39C4ZL76onmpl049 QKUEYTL+Cg5igC2rg1ICtEcGGzuVxo1cA89iEeAqQ9PINnrKcRwta/MP1ZvaffE6ceenqZWhqXLXMx6g ZxieGoYYoBVMl8Wim2Gtvyu94QxP+V62XU8KsVU1z7NGeUNFnjzKDL1jYjRBM8HHMmmZObV4PdFiCK6R B10kqNLN8ghUrfRJB1LFkDAYsHdp1AMlquam9DaCGR kqKADjyBXaLS5yWOn55XBLHOnN5yQ9/bD5RAFHlWlghH2mSOmTkVZA90O5yMX2KxqbA4nQ6Sab4ZhDoX ZUJRqT2udoMd0l+DBTELlX1wsLu3MFVFBqmmESTMVWKwX6Z6aNGZXGqorJ5ZeH0Mk1xBkMgFNSxLhVLM q997C9l9Rd8WVWmXWtHIKIWFZk7T407l2cLbFS0HRH LIWawina1+B4PNRXREEjCsrhrC6d+IK4E8MEC/yNg4o5chSg1LyHvQPTnmY1+RoHG8rvAtjjyf4za/RB AaNmTOZXZDWN6jwKQUNNufALDrBc0sjdc/nSKlCi2KpyvGPkuBscvxCtZewJ+IIlJEqINBHdjZqPQiHA L5YIRDSAjtcL2iURqRNDKycXPpKnEW6dWTd74Ecbvl MrZspl4RieGEsg6XpJOkRrNMftOVoEyTJuZan4Zk/uGw5155vpcbv6tHaGJGCx/9JoJIEEkiydbwf+GT 7PefpL//TOO+9MAG+MAN+i0JERAUVomHV7Oa5+fZ3FdaV/viZrSoqtHWYWQrCwyWJC77d9gQYGuY7XTUz [file] 799edf/esu8l3rl5297pckA1i2++Jcb209+N3nv/qJ IV571yUmB3/75hma9iS0r7++/u13b//w7edf/v6Lz7/98qvP/5tzXx/g93hjtGmmr7//3hjcYrl1/c37 Q/zq7cMX//UqgE3aqw/83ULtP4/8+kinga/vhy7d/+zelK40HgK5xf45ZvQxw7Zp/dvWZ0gJj9gfl3l26 6p++/hnw7lNf7rl9S924+df/3CPjPl5/7u0fv/nt11 /+N1e+zIPXlV/85c///se//dgUf849n//99rs//ulP3//1rz98/6e/e/vy+z//8Yc/vz7z95z127++/e XPb/YLrV/cy7NkCorbLN3r//q/aPPeVHS/T//xx1/1I540Yl9p8lb71++Vg5wzyHg835x/B+htVj/o/P rt24t00jCc39x25uznkzcs/5hBb0z4/TN1aTX8xD/e e+gx6RU43mGsMnl5+8O///DhzOr5Wpa7y7kr24//0r68c36/6vefSDs+ueoo+Y4xg0Gur2O09s59/PS9 f/rXfAjtHAsmV2Nrn6No6/3w5//8+7e/fv+fP3zS+keq431nr3zr6KXz9m49wXN/0/oGf/Pt2x///J8/ /PX/+W1Hb1hg4ak0+fHhe9f1wzf2si350+/e/u1/vT /7H//z3611e1tX+9zsa8oJ++ePv/jnj3/od42QYn4ak57fV6+0fj/fvqaghxzLrkz5bdza/f5SxyYAIe 1a3sehyw9avr++ff///vAf/3XkPO/tkp9/88XHn9+L5P/1b96/A//7r//5ev57v8+Hf/zhx+//9Mkbnp /gX3z/v/7w/X/88fs//6SFrevwP/3CwLK98T/+8uNn max0mhB3SF/6yx8+b49f4vpXYE8xkB/84Q//15//+If3B/sd9Zaqcgt8y9/fp+PPf3L+RM6ymk4q//ne s/7ts/96x/x1a2r8am9gcMhAV+56Ef//p7z+gdsi4cm6j+//2y3d3bbWi9/nH76edXqbWjgfXSdyN8qf h/bpzovCY989ua8q09+b1pmfv/n2yw/fvg/s5/f5F1 +8g1pt339uqIrWamwk/S1PQN029zbrkaJqwQVwEF4ECL6hv1TjVfN9RNXxz0TnZDojTDe9oMAdZVlwih Ewm9BairvmJ9Hdg2VjCzDvLFHmJxWuBdq7UQRtEyR9iFEhNrPnPIHuS1ByXXIpOeC7CpGlKQAVDO9QOH JlbnQgMiAwIFI+TcWlET0vacnaABQva5CgWHzmONjm LENmH8T9hQbrHAKsR2RjqZ79INJoC4WtgaX6VUH0MZFhGoXfDOMguJVrGQXuIHH+WmWsGX8mcnhqFTTn b1MqLVojZKF5vE5mRSqRBRXVEGvGCHviEfJ1w47mqvGBLOHzALNpMF0NadJeoNqgjfIhvQHmEPE4PqZn ZYZ1UrkvVDM8ECVRVRTxMEHzPFSqRWKhK7JglJigDO pRDMTBJCnEDOvaOqJyy9Q2PPQjhcNBBJBVI55yQUlFClHEGKamCQB4ITHtKNddS7H4GryoB8UwXX1XZ2 SjKWJbTLWMWRGwhhPkNQ0QvwErcN9vBYwVDQAZBOoZYQsaWmF3o50lubUZQHKvQDTdVHacPJKeUNCdVJ ZrSCPwIIEiXUSoGRKeMZ4UB0UrOIDlJXOSKPZ4v5Lx OLJhzacxcllxIo2qfzMkPlc+AswyIREom6KkGPdcW9H0qTZdH0WhA5ThOF7OhECsJDfcLCNbBOBmNAZn D818qeIlRB0+RY8is0TfPjzaEBMKQVHmJFHuYXChFNH5ZcWfSWTwYBBlIYRnHkK6KjNsRjBVBJDaJHL0 BDhqShHiLCNyZUBsBGxnOWKhKWEdIGy1BDZvAFSeBC 6sVbLeRRDbHmR5CqXnODBlHVJhdaTKZPQaMWNiULViXRT6BXDuMJExYQclEUCbXGCoXPR7KDEkOPTsMD 6mZpNtGUQaYMSkObsuPSMeMVQzlnQFLPJoCYYxMOY2VaBpAZTmAZCgTRmwDFBgEPYfCmy8EDOsCFXrKI 6yHlUwQHPtLUP1ARtsXALiZVQmhoZPKMQnKSIwGMEz QpJwCCIuLOJrDRcmCWMaNXRtFfLlCNAbLYTqAI2tFgOkNJJfLQX4DSLyPNLyXEHvxqFMMHZaTKRoQGh5 FXCoYPAsGKLjFWozRNZeJTVgOIU2DWXlDPDqRI7sJgZqXIUoQNLzJOJaYWBpRTAikbUJODOkPDMtDBZ6 LLKyOAErVONfJFnaBMEzSSWeNbo0DTKwBYNgKO3kAv QjDPNkUNQ7UXOzLNWhIEDglgGINPRiWHI4IUQ3GpEyABSiDLOjQFctKPPaWCGeSqD2XRWvEIFxQB7vOw KjVAGxGOK5EtFbATZrNCYddsOARLDzCTAaTUV2QvEkFDLaIWRhCFfuHKZkXCEjGZQrVBM0MZL4NGQfHp HwIMezJRNAVHkUO3LzabEjBdLQL6gfNe3pRfMwCDZH E1Tkf3PuANIbCSJRJp8+DnG0DTP0cRWaEvo9PQb8UDvkHVCWOv== ID Date Data Source [id number] 09/19/2020 08:33:57 AM EDT [facility] Name Value Range Interpretation Code Description Data Catrachita rce(s) Supporting Document(s) [facility] SBXFYj9bZzPPHrDwa0KwBiYyNVItLM2tjjj3J5C7cIUoE6IqfHUfv5rfB8LaZ2QbUGZtJEHEIJ8CyALn jb2 [file] chief reservoir engineering+3ekCeSEyD9VkEynH0uX/cUgk0maa+LHub1ZRmp [file] 7cQdj+[id number] 3Bdpc8hzRmLPJdGez8831KaimHa0g575SamhV22+CkoroYAIFFmq83DiksltnUQ1S9uX6OFnAECapmUx cDdrdMqRCDNq5i4atfyIOFzJbjNOhIHURzR0e4y531afTDd61XAEeMjDifoNncgtR8NplSDq1UVETXvP S9T5nTxpYZdCjolguFuvJCr5TVx/XLFm1LJk8Qa7QV s7GLb9IHMYMbSRa5fGAgzQc2TeVsWBQj6ceq/VlBegMb65SY2il+ASFZdDVIE7oYsSRvFYDG2MYUs+UK KtqQfIIbrPSeEn5H6MoTeGkTthMy2UXEAC/lCkGm/HtwiJQfrVz6M1bEb6ALwHxnzouroDkufFStH/mx WMTF3DRYPTPL3OQcDzuKj4LsFD0m81AlVTMz9bKOY2 hNnzbsG7mGZ6lA8u04vpy4frg3safqeVi9Y8YwnKXnbvoeLVcZmMG6OAvTTy0V+LFIhx+J6WqiXiQjaU TPBWJuM1FoOwTU0RCqv+TTDzB9dvU+UeHHIgo/MxapZL6KknWDbFu2tTnJBBLULsmSHzeJ4fTMclEpnE RAmCmBFO9lVxkYzgvBICZxwVpGZOAecGiAmRHSMrva mSQzyGAPhsKPRRR+FMUlKsIWE6ji/SdX6jjhFc3MLzxHFpYSBCnYEZwkGXrxEvjXXWpod4ZYLwwuJknc OoAfi+w9VJqTLfVmi+ighWwGYQJMc4avmHpXNGNYyzRlPpsFJfdJcr2s2LlOghH8ojxEkQXNSz6roN0M +KzGftpzuNW6qXT2smX2UGqUFAjsJWaoMGjyM9pOpV eWs1oydPcpkWwfrFyN5MG95ffVX/BjEeX+yW3O5DOTQFm7SYEJRTwgz3JTMjqY6/TZpnXpleCOdAjn5f JwG3bZSleNmYxu0s24jPd5g5ioJXEOGgWhcHJCRShrURwVqDKp/kTl/kTl/kTl/sQdj+ZDsUzGDzf83Z klcVm9OZPZHTlKRRG2ZSKXWWgGMKSamRPQSTvOLi9K TnQVTZFzUG24CLmtJM2k78tIJ2ctXNCDNH+WaBrvmX3HLCRVq3WesNAhD0ivOe7KLkbqRcQDgr8YqlHA FY/wFbFDcQRdaDzPTVORsfo3IKeHOOGQbqGQBdVypPVq/cWVx0KReNXnvZXYeMuSNjkIFJEQj2gcn0hw u9qda0ixaBxiwLVVEMP6dnCtNEJc+iLPa9Jh0L3Tvi vvmxxwXLdKWv6Q4pqdTOK/rbc4hgWxLx9SxuLQBW/aRF1CDBarsi5R5SmET2A9YDDUjj4hB9T/84rHcg D3F618NEllleIb1x+AKx7L/oLv9XzYwJoPq+Qu3I7OMe6Q4wAv5C9z3Y7m6S+44rHcovHvvOKxXCHJJE sbvE+sUXNoTkfNBE03oyOA8UJu0OySv/hHED7T6gGl yOReDFCZQVa9G430VPiVIsOljHYTBLeWQxbT5OJYvgNNyU0r+Q1RyPZp2c3DMJZvGUvWjjgzLyvUMJe7 BoIBFEcFbuAoF4OwKpj+FwYSQqpLWzJTODx7NwfGW4EMMrMBNyPDQE5TpWQs9aqDWh4wlYmsqclqr6AB oIycdEgcG1ZetGOuIE0++bGcPNivvOKxnDxrPvEIDf UbchrqoyKxnTAvkYGmPOTWxX1v7cejGcoR04DMtgCxh/ITq9XEmxkJOf1HRmE1VJO4PAvhGFMJ5HL41v IjXl73kATJDxAjAcOCL4WmEZ7lI0q7BJsdu7L+uiTSbOXxVAbVSvFvbPFkODysg5lz78IwU06MXBBZ6L LDE9nM8Y4c+K0JleoP52HiZ75T+U2QtlYiC2rti4AM FBoNytX7BPdJ9oSTOnpXgKLjg7/MQ3rXj6EN66WzXeihV7PfVDnEZ1TdWesZW1FGg5RioCYoBccLJSwC OrrSt1MICq9D8FRh3OlsAT6EnnYZM5uYHqsDOmBZ1wVkjTIUyke445DENXDx96/6kGcs87ubioj93c4m //m98wYMf0/0791bj6byw4/GkyG2ik/tw3ff/vrr// F39Fmis/Htx3/BhpFD35fruq1+vkuFlpsNuCnE0sB2umMMFzqsi3+5xIKn5eu37rVu4ub2k4/doH0c63 79r2+//s6797801lOfeu9+3tCpG192++3XX/3b9sqqdzkqi/7s4ze/+vDFb9/k0b601I+/+/Lrj2/ffP zumy8//u7DVz+v7WmqwDZ5ghP0Pny96hSg0frta/vt 2y+++fDFv37+4Hgqvknjq1s41IH+Xfv1r7/+9jcfP//yv375+dt3b//tw+8+vk58xib/fn+ve23y4O+Q lcRQ0g2088q08Xz/fr/Vx8//r2/iKqmlq6xwxkcMKt7/iueryeRD7Ryi/vzvP/71Tz/84e2//6or3316 4x+//+tff/j+j//l7Yvv//kpS027+7d/bPlv//T2lz +/0r5mzw81q1/1/km726rg/SddTJeg+TbsT3/6+y2466Us3Xf937/9Dmtm5d/s8h081s9NN90ii33/fv 93aM3dQAIKek3NzI6x+0hgD5yi8TgkaM1mmRBP97ob4/IKph1AJ28Tznto3061H6TWO7+4rt4ob2yje/ jl27ef//LDV5+8mXnGTuUqJf/jxQ7xjbHZiSWwsOjB O08TVm5hHhm7AHWuC16ldp/8+e///PbX7//+wyelv3+83tZRNq+L/tQ1WSXxrfcORy/kb755+/HPf//h r//Ts5z3GzmA58uVr6q/XOZPSz/qo8zg0yty/tf7s//4lz//hPs6RVrEko3IDE0lzrf1h7x0f18n2Su8 1fy5av+f9SjO28eP7TA+8vCXUyp+JsPH2qlqo7ohlm dJz863+/7//eFv/4zo1Xp1vN/9+bTqeeq6gV/zS99U7f/x13/1q38gaa0Mz/3hT9//1JM4AH0sI//+f/ 3++7/9+A0rc8BM2hCdus4qq4b++ctf/vTZL3v+5IJToa/+7tbNeVIk2YJhfqr/8d/98Pv/+ecff//+AJ +5tr5Gt109/Pf4GR3my+tnbI11/d/+/t6y/vDZb/72 H7//nz9+//e//vj7t1/98Icff//9H98+/+MP3//1+z///of//RhoEj8z++wijN6r0DhdMD8jcE//S14/ SKPDd7z7siz/40u21ivIa3/86JYi1yzFYS++Zbj6XWo2+J5+/55+/AT271NfLBr+NffR6VgbbXEzy6/e Zugle/0XbTj904//6ee7f06vRD/tV2tXv/3vEvN8JA hqetNvaMDzUJ3MMC9mt3EgJxV3OQEub1FwBBikHRl9aGBrYMrybtLgy1DpacmkR4Sdy2RmOgFhQIKdKy FqPzg3UMSvBzL9kAOjDoPaNYOcO5KbUFAlEeD0DsHoUTGWZK0DURLuqwBqLpRhWTX+WiLiPP1mfpkaYT Veu4QkLQetZQodJJBvU1X8mDuzPCMbG8ZjeJ04QJOk E6OezyD7ZZX9HHYhLrNkVMHiyRGyUVPhNDO+VlRnIX9rkzekYYXtg4LzKAvtDOW9rC8qARwWFUEYLHbU AJxfNsJ6z12civEXRAPwFTAdYN2AfdMlyBddqcPxkHQyQHH8MuDhKFL5FptpOKL1VNFQYSJyGYCbVYUj KDNbC1DhoAtkJLgOFOJUVEcRWYfpAkPfi8N8VRLjbr PXBYERJ77aOObIXlBCZVogROC4GMQzTHkoL9S1BfkaJ7YaTH5TF6KcKFAqSLVWEKNeelCfTW7AusVgaH 0yJCtLIKHCUMiUAFbtMlA5k28flhUVKAWpDYUoNUvpYZCyGFRwGUKyWUIdUNGkIJAsWMFoJO5YS6VtSJ NmQLWMRYL8h4MhHWCvijrirphtRs8rysWfIjg+Pgox JILqa7PhXIapW6T3yHKxP9NxU8XiAU7LeDZcJMcvNYBvOLFuLWRoU308upVaLU9+TC1vz8YzDgaiYSDD XGXtCNOjEEZaJAD4YeFeBEWlNFFwISZpXcO5QoNuJqTWLTMxKHT9JGgaOVDwKBUyRSPfGBpaZMCiXEZl YLx6SPSxQPTxDV6eNbMnRTYlMvV3TGUkMFPbTEZmas PJJLChHTAmLKKpFLU3KEYbUXMrHDecDKPcCYUaLCL1ROQzYTZeFW1dAjHgFKFvVJHjAeymNTFrKUAcyd CQRRXsKSVpZBH1XaKxEDYaGOGjJYuuTHPiZDWiKks6XMJmYYQzGD7bLzJdOYIuFNL5ZTkgAXJfYJNemo AKMDAwMDAwMDUyMyAwMDAwMCBuIAowMDAwMDAwNjQx ATBtJKUtHN1fPdHzSVQnLDZ9FNHqRPSkIAFafeXQQJPvVTEvZXb2VKJkFDVeUNFsXMfuFQSuDFIoXAS2 LGJsGPTrNY1qTpYoANWpOBSrRSUbAFMtUYOhufCBJONaRCOiSRV8JPFoRTSqVIIoOXkrQQYdNVItXjj1 VCHkYYTqHV9uSbAsEQSpMUL2INBtSTTvBJGotiWBYF PwHWC5JDF6VSPpBRFgTSAmXGnqFUPrNTXlLjH9UNEsWPDrIM3wRbHqUEVcNCB1YlRxFNNlTUMfyyFHPT QgISWfIGL9AuOeAORyUYGuTZasIKZnLTWvJMKbJYO0BCV0GGCqHoBnOGjcDLJXRKpDS3RlndIiXeJWH2 bnHe1uGvMpPSUIP5Hqz9IrBBUoJQSALp6+ZkX5DLC9hBSiQmg8IYm6EtaxHGUBBh== ID Date Data Source [id number] 09/19/2020 06:28:13 AM EDT [facility] Name Value Range Interpretation Code Description Data Catrachita rce(s) Supporting Document(s) History and Physical [facility] FDPOQk2rOaOOUwTp27/WEIinPUMem8MdUYknENq7JEzoZEFoR9FiGFP9gQ1gZOP8ZUhCEiSuGwCoIMJ3 lbm [file] EcGP9WCm8REdR7PDC1pNBqFv7FCwKoMtFDRyQmFV8NYGd= ID Date Data Source [id number] 09/18/2020 06:19:14 PM EDT [facility] Name Value Range Interpretation Code Description Data Catrachita rce(s) Supporting Document(s) Consultation [facility] VRPNWc1oDkVJLgQd39/RSPctUBYhx8BxUEalRCs0NUsfJGOfI8BbDDR5iP2rYNZ4YNyBZdBvKwPoSSE4 lbm [file] cUhEnkjB2zrHcxRDx0FKfwvXp90shmaHGafmTU8JpwTiK2lKbxxdRDBve6MtoL4rWcal8RR0a2z6G/desktop support manager [file] president & founder+yhn1Jbfxbjrq9rB4vdliY4DuqGnYuVaogtkElnuj3kHX8RK8C1CRmx+tvS4Obu9dg58KxSa+w98d7 [file] BFW4EVPc== ID Date Data Source [id number] 09/20/2020 07:29:37 AM T [facility] Service Cmnt XXX-Imp : NoneMicroorganism XXX Cult : 50,000 col/mlIndigenous microorganisms. Name Value Range Interpretation Code Description Data Catrachita rce(s) Supporting Document(s) ID Date Data Source [id number] 09/18/2020 06:24:13 PM EDT [facility] Name Value Range Interpretation Code Description Data Catrachita rce(s) Supporting Document(s) Amphetamine [Presence] in Urine by Screen method Negative [facility] Benzodiazepines [Presence] in Urine by Screen method Negat raysa [facility] (NOTE)Positive results are presumptive a nd unconfirmed;confirmatorytesting can be ordered at the [facility] at [phone] [facility] at [phone] within 5 days of collection. Cannabinoids [Presence] in Urine by Screen method Negative [facility] Benzoylecgonine [Presence] in Urine by Screen method Negat [facility] Methadone [Presence] in Urine by Screen method Negative [facility] Opiates [Presence] in Urine by Screen method Negative [facility] Oxycodone [Presence] in Urine by Screen method Negative [facility] Fentanyl+Norfentanyl [Presence] in Urine by Screen method [facility] Service comment [facility] Results below the indicated cutoff (ng/m L), are reported as"Negative." Note: for medical purposes only; not valid for legalor employment testing. ID Date Data Source [id number] 09/18/2020 06:40:32 PM [facility] Name Value Range Interpretation Code Description Data Catrachita rce(s) Supporting Document(s) Color of Urine [facility] Clarity of Urine [facility] Specific gravity of Urine by Refractometry automated 1.018 1.003 -1.030 [facility] pH of Urine by Automated test strip 6.0 5.0-8.0 [facility] Protein [Mass/volume] in Urine by Automated test strip Neg [facility] Glucose [Mass/volume] in Urine by Automated test strip Neg [facility] Ketones [Mass/volume] in Urine by Automated test strip Neg [facility] Bilirubin.total [Presence] in Urine by Automated test strip Negative [facility] Hemoglobin [Presence] in Urine by Automated test strip Neg ative A [facility] Leukocyte esterase [Presence] in Urine by Automated test strip Negative [facility] Nitrite [Presence] in Urine by Automated test strip Negati ve [facility] Leukocytes [#/area] in Urine sediment by Automated count 6 /HPF 0 -5 H [facility] Erythrocytes [#/area] in Urine sediment by Automated count 1 /HPF 0-3 [facility] Epithelial cells.squamous [#/area] in Urine sediment by Auto mated count 6 /HPF None [facility] Mucus [#/area] in Urine sediment by Microscopy low power field None [facility] ID Date Data Source [id number] 09/18/2020 05:15:00 PM EDT [facility] Name Value Range Interpretation Code Description Data Catrachita rce(s) Supporting Document(s) SARS-CoV-2 RNA 2019 nCoV Real-Time RT-PCR: NOT DETECTED [facility] This lab was ordered by [facility] and reported by [facility]. ID Date Data Source [id number] 09/18/2020 06:51:37 PM EDT [facility] Service Cmnt XXX-Imp : NoneRespiratory P CR Panel : PCR ResultsMicroorganism XXX Cult : See Labs Tab for 2019 nCoV RT-PCR resultsHAdV DNA QI MACKENZIE+non-probe : Not DetectedHCoV 229ERNA Nph QI MACKENZIE+non-probe : Not DetectedHCoV AEL6HBD Nph QI MACKENZIE+non-probe : Not PfueijgsOXbOYE92 RNA Nph QI MACKENZIE+non-probe : Not YivbujmjDSdHPN19 RNA Upper resp QI MACKENZIE+probe : Not [...] DNA Nph Q MACKENZIE+non-probe : Not DetectedB jntetST647 DNA Nph MACKENZIE+non-probe : Not Detected Name Value Range Interpretation Code Description Data Catrachita rce(s) Supporting Document(s) ID Date Data Source [id number] 09/18/2020 06:51:10 PM EDT [facility] Name Value Range Interpretation Code Description Data Catrachita rce(s) Supporting Document(s) Specimen source [Identifier] of Unspecified specimen [facility] SARS-CoV-2 RNA 2019 nCoV Real-Time RT-PCR: NOT DETECTED [facility] Assay Performed [facility] Patients first test for condition [facility] 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 [facility] Patient has symptoms related to condition [facility] When did you start to experience these symptoms [Date and time] [Phen X] [facility] Patient was hospitalized because of this condition [facility] patient was admitted to ICU for condition [facility] Patient resides in a congregate care setting [facility] status [facility] ID Date Data Source [id number] 09/18/2020 05:51:56 PM EDT [facility] Name Value Range Interpretation Code Description Data Catrachita rce(s) Supporting Document(s) Leukocytes [#/volume] in Blood by Automated count 8.1 10*3/uL 4-10 [facility] Erythrocytes [#/volume] in Blood by Automated count 4.43 10*6/uL 4.1- 5.3 [facility] Hemoglobin [Mass/volume] in Blood 12.6 g/dL 11.5-15.5 [facility] Hematocrit [Volume Fraction] of Blood by Automated count 40.1 % 3 6-45 [facility] Erythrocyte mean corpuscular volume [Entitic volume] by Auto mated count 90.4 fL 80-96 [facility] Erythrocyte mean corpuscular hemoglobin [Entitic mass] by Automated count 28.5 pg 27-33 [facility] Erythrocyte mean corpuscular hemoglobin concentration [Mass/volume] by Automated count 31.5 g/dL 32.0-[facility] distribution width [Ratio] by Automated count 14.9 % 11.5-14.5 H [facility] Platelets [#/volume] in Blood by Automated count 252 10*3/uL 150-400 [facility] Differential cell count method - Blood [facility] Neutrophils/100 leukocytes in Blood by Automated count 71 % [facility] Lymphocytes/100 leukocytes in Blood by Automated count 18 % [facility] Monocytes/100 leukocytes in Blood by Automated count 8 % [facility] Eosinophils/100 leukocytes in Blood by Automated count 2 % [facility] Basophils/100 leukocytes in Blood by Automated count 1 % [facility] Neutrophils [#/volume] in Blood by Automated count 5.85 10*3/uL 1.8-7 .0 [facility] Lymphocytes [#/volume] in Blood by Automated count 1.47 10*3/uL 1.2-4 .0 [facility] Monocytes [#/volume] in Blood by Automated count 0.63 10*3/uL 0-0.8 [facility] Eosinophils [#/volume] in Blood by Automated count 0.13 10*3/uL 0-0.5 [facility] Basophils [#/volume] in Blood by Automated count 0.04 10*3/uL 0-0.2 [facility] Nucleated erythrocytes/100 leukocytes [Ratio] in Blood by Automated count 0 /100{WBCs} 0-0 [facility] ID Date Data Source [id number] 09/18/2020 06:16:42 PM [facility] Name Value Range Interpretation Code Description Data Catrachita rce(s) Supporting Document(s) Acetaminophen [Mass/volume] in Serum or Plasma 10.0-30.0 L [facility] ID Date Data Source [id number] 09/18/2020 06:16:42 PM [facility] Name Value Range Interpretation Code Description Data Catrachita rce(s) Supporting Document(s) Ethanol [Mass/volume] in Serum or Plasma Negative [facility] ID Date Data Source [id number] 09/18/2020 06:16:42 PM [facility] Name Value Range Interpretation Code Description Data Catrachita rce(s) Supporting Document(s) Albumin [Mass/volume] in Serum or Plasma by Bromocresol green (BCG) dye binding method 4.1 g/dL 3.5-5.2 [facility] Bilirubin.total [Mass/volume] in Serum or Plasma 0.2 mg/dL <1.2 [facility] Bilirubin.direct [Mass/volume] in Serum or Plasma <0.3 [facility] Alkaline phosphatase [Enzymatic activity/volume] in Serum or Plasma 97 U/L 35-104 [facility] Aspartate aminotransferase [Enzymatic activity/volume] in Serum or Plasma 15 U/L <32 [facility] Alanine aminotransferase [Enzymatic activity/volume] in Seru m or Plasma 11 U/L <33 [facility] Protein [Mass/volume] in Serum or Plasma 6.6 g/dL 6.4-8.3 [facility] ID Date Data Source [id number] 09/18/2020 06:16:[address] [facility] Value Range Interpretation Code Description Data Catrachita rce(s) Supporting Document(s) Bicarbonate [Moles/volume] in Serum 24 mmol/L 22-29 [facility] Chloride [Moles/volume] in Serum or Plasma 105 mmol/L 98-107 [facility] Creatinine [Mass/volume] in Serum or Plasma 1.00 mg/dL 0.50-0.90 H [facility] Glucose [Mass/volume] in Serum or Plasma 90 mg/dL 70-140 [facility] Potassium [Moles/volume] in Serum or Plasma 3.8 mmol/L 3.4-5.1 [facility] Sodium [Moles/volume] in Serum or Plasma 138 mmol/L 136-145 [facility] Urea nitrogen [Mass/volume] in Serum or Plasma 9 mg/dL 6-20 [facility] Anion gap 3 in Serum or Plasma 9 mmol/L 8-15 [facility] Osmolality of Serum or Plasma by calculation 284 mosm/kg 275-300 [facility] Creatinine/Urea nitrogen [Mass Ratio] in Serum or Plasma 9 [facility] Calcium [Mass/volume] in Serum or Plasma 8.7 mg/dL 8.6-10.0 [facility] Glomerular filtration rate/1.73 sq M pre dicted among non-blacks [Volume Rate/Area] in Serum or Plasma by Creatinine-based formula (MDRD) 72 mL/min/1.73m2 >60 [facility] Glomerular filtration rate/1.73 sq M pre dicted among blacks [Volume Rate/Area] in Serum or Plasma by Creatinine-based formula (MDRD) 84 mL/min/1.73m2 >60 [facility] ID Date Data Source [id number] 09/18/2020 06:16:[address] [facility] Value Range Interpretation Code Description Data Catrachita rce(s) Supporting Document(s) Salicylates [Mass/volume] in Serum or Plasma 3.0-30.0 L [facility] ID Date Data Source [id number] 09/18/2020 06:21:[address] [facility] Value Range Interpretation Code Description Data Catrachita rce(s) Supporting Document(s) Prothrombin time (PT) 14.2 s 12.5-14.9 [facility] INR in Platelet poor plasma by Coagulation assay 1.09 [facility] Routine intensity oral anticoagulation I NR is typically 2.0-3.0. Target INR must be clinically individualized. ID Date Data Source [id number] 09/18/2020 06:50:[address] [facility] Value Range Interpretation Code Description Data Catrachita rce(s) Supporting Document(s) Phosphate [Mass/volume] in Serum or Plasma 3.3 mg/dL 2.5-4.5 [facility] ID Date Data Source [id number] 09/18/2020 06:50:03 PM [facility] Value Range Interpretation Code Description Data Catrachita rce(s) Supporting Document(s) Thyrotropin [Units/volume] in Serum or Plasma 2.840 u[IU]/mL 0.270-4. 200 [facility] ID Date Data Source [id number] 09/18/2020 09:49:[address] [facility] Value Range Interpretation Code Description Data Catrachita rce(s) Supporting Document(s) Cobalamin (Vitamin B12) [Mass/volume] in Serum or Plasma 980 pg/ml 2 11-946 H [facility] ID Date Data Source [id number] 09/18/2020 05:35:00 PM [facility] Value Range Interpretation Code Description Data Catrachita rce(s) Supporting Document(s) Toxicology Hold [facility] CONTINUE TO HOLD ID Date Data Source [id number] 09/18/2020 08:50:31 PM [facility] Value Range Interpretation Code Description Data Catrachita rce(s) Supporting Document(s) Hemoglobin A1c/Hemoglobin.total in Blood by HPLC 5.5 % 4.0-6.0 [facility] (NOTE)<5.7% Average risk of diabetes (ADA)5.7-6.4% Increased risk of diabetes(ADA)>/= 6.5% Diagnostic for diabetes(ADA) Glucose mean value [Mass/volume] in Blood Estimated fr om glycated hemoglobin 111 mg/dL <126 [facility] ID Date Data Source GC CULTURE 09/18/2020 12:00:00 AM EDT eCW1 ([facility]) Name Value Range Interpretation Code Description Data Catrachita rce(s) Supporting Document(s) GC CULTURE eCW1 ([facility]) ID Date Data Source EYE CULTURE 09/18/2020 12:00:00 AM EDT eCW1 ([facility]) Name Value Range Interpretation Code Description Data Catrachita rce(s) Supporting Document(s) FULL REPORT IN LAB NOTES (eCW and [facility]). EYE CULTURE eCW1 ([facility]) ID Date Data Source CHLAMYDIA CULTURE 09/18/2020 12:00:00 AM EDT eCW1 ([facility]) Name Value Range Interpretation Code Description Data Catrachita rce(s) Supporting Document(s) CHLAMYDIA CULTURE eCW1 ([facility]) ID Date Data Source URINE CULTURE 09/18/2020 12:00:00 AM EDT eCW1 ([facility]) Name Value Range Interpretation Code Description Data Catrachita rce(s) Supporting Document(s) URINE CULTURE eCW1 ([facility]) ID Date Data Source UA URINALYSIS 09/18/2020 12:00:00 AM EDT eCW1 ([facility]) Name Value Range Interpretation Code Description Data Catrachita rce(s) Supporting Document(s) UA URINALYSIS eCW1 ([facility]) ID Date Data Source [id number] 09/11/2020 08:32:46 PM [facility]FORMATION[facility] Name Date of Age Gend*PT [id number] Shabnam Aaron 1985 35 years F CPEPPT Location Admission Date/Time Visit ID Attending ProviderNONE 09/11/20 184 --- Everett Handy MD([id number]) EPI ID CSN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
[2021-03-12 18:55] LABS: BASO % 0.4 % (0.0-1.0); EOS # 0.2 10^3/uL (0.0-0.5); EOS % 1.8 % (0.0-3.0); HEMATOCRIT 47.7 % (36.0-47.0); HEMOGLOBIN 14.9 g/dl (12.0-15.5); LYMPH # 2.9 10^3/uL (1.5-5.0); LYMPH % 28.4 % (24.0-44.0); MEAN CORPUSCULAR HEMOGLOBIN 28.9 pg (27.0-33.0); MEAN CORPUSCULAR HGB CONC 31.2 g/dl (32.0-36.5); MEAN CORPUSCULAR VOLUME 92.6 fl (80.0-96.0); MONO # 0.9 10^3/uL (0.0-0.8); MONO % 8.8 % (2.0-8.0); NEUTROPHILS # 6.1 10^3/uL (1.5-8.5); NEUTROPHILS % 60.4 % (36.0-66.0); PLATELET COUNT, AUTOMATED 264 10^3/uL (150-450); RED BLOOD COUNT 5.15 10^6/uL (4.00-5.40)
[2021-03-12 19:23] LABS: VENOUS BASE EXCESS -1.9 (-2.0-2.0); VENOUS HCO3 24.2 MEQ/L (23.0-27.0); VENOUS O2 SATURATION 85.4 % (60.0-80.0); VENOUS PARTIAL PRESSURE CO2 45.7 mmHg (38.0-50.0); VENOUS PARTIAL PRESSURE O2 51.3 mmHg (30.0-50.0); VENOUS PH 7.341 UNITS (7.330-7.430); VENOUS STANDARD HCO3 22.6 MEQ/L; VENOUS TOTAL CO2 25.6 MEQ/L (24.0-28.0)
[2021-03-12 19:31] LABS: OSMOLALITY SERUM 290 MOSM/KG (275-295)
[2021-03-12 19:46] LABS: ACETAMINOPHEN LEVEL < 2.0 UG/ML (10.0-30.0); ALBUMIN 3.8 GM/DL (3.2-5.2); ALT/SGPT 18 U/L (12-78); BILIRUBIN,DIRECT < 0.1 MG/DL (0.0-0.2); BILIRUBIN,TOTAL 0.4 MG/DL (0.2-1.0); BLOOD UREA NITROGEN 16 MG/DL (7-18); CALCIUM LEVEL 8.8 MG/DL (8.5-10.1); CARBON DIOXIDE LEVEL 27 MEQ/L (21-32); CHLORIDE LEVEL 106 MEQ/L (98-107); CPK CREATINE PHOSPHOKINASE 45 U/L (26-192); CREATININE FOR GFR 1.19 MG/DL (0.55-1.30); ETHYL ALCOHOL (ETHANOL) < 0.003 % (0.000-0.010); GLOMERULAR FILTRATION RATE 54.6 (>60); GLUCOSE, FASTING 86 MG/DL (70-100); POTASSIUM SERUM 3.9 MEQ/L (3.5-5.1); SALICYLATE LEVEL < 1.7 MG/DL (5.0-30.0); SODIUM LEVEL 138 MEQ/L (136-145); TOTAL PROTEIN 7.6 GM/DL (6.4-8.2)
[2021-03-12 20:25] LABS: RSV AMPLIFICATION NEGATIVE (NEGATIVE)
[2021-03-12 20:43] LABS: ALBUMIN 3.6 GM/DL (3.2-5.2); BILIRUBIN,TOTAL 0.3 MG/DL (0.2-1.0); CALCIUM LEVEL 8.9 MG/DL (8.5-10.1); CREATININE FOR GFR 1.16 MG/DL (0.55-1.30); GLOMERULAR FILTRATION RATE 56.3 (>60); POTASSIUM SERUM 4.1 MEQ/L (3.5-5.1); TOTAL PROTEIN 7.1 GM/DL (6.4-8.2)
[2021-03-12 22:51] LABS: AMPHETAMINES LEVEL URINE NEGATIVE (NEGATIVE); BARBITURATES URINE NEGATIVE (NEGATIVE); BENZODIAZEPINES URINE POSITIVE (NEGATIVE); CANNABINOIDS URINE NEGATIVE (NEGATIVE); COCAINE METABOLITE URINE NEGATIVE (NEGATIVE); METHADONE URINE NEGATIVE (NEGATIVE); OPIATES URINE NEGATIVE (NEGATIVE); PHENCYCLIDINE URINE NEGATIVE (NEGATIVE)
[2021-03-12 23:06] LABS: ALBUMIN 3.3 GM/DL (3.2-5.2); ALT/SGPT 17 U/L (12-78); BILIRUBIN,TOTAL 0.2 MG/DL (0.2-1.0); BLOOD UREA NITROGEN 17 MG/DL (7-18); CALCIUM LEVEL 8.6 MG/DL (8.5-10.1); CARBON DIOXIDE LEVEL 25 MEQ/L (21-32); CHLORIDE LEVEL 108 MEQ/L (98-107); CREATININE FOR GFR 1.06 MG/DL (0.55-1.30); GLOMERULAR FILTRATION RATE > 60.0 (>60); GLUCOSE, FASTING 87 MG/DL (70-100); POTASSIUM SERUM 3.8 MEQ/L (3.5-5.1); SODIUM LEVEL 139 MEQ/L (136-145); TOTAL PROTEIN 6.8 GM/DL (6.4-8.2)
[2021-03-13] MEDS ORDERED: ATIV2TAB PO (01:05)
[2021-03-13] MEDS ORDERED: ALBU83IN INH (01:07)
[2021-03-13] MEDS ORDERED: FLON1SPR (01:07)
[2021-03-13] MEDS ORDERED: HOME MED LIST COMPLETE! XX SCH (01:10)
[2021-03-13 05:18] LABS: ALBUMIN 3.1 GM/DL (3.2-5.2); ALT/SGPT 16 U/L (12-78); BILIRUBIN,TOTAL 0.3 MG/DL (0.2-1.0); BLOOD UREA NITROGEN 15 MG/DL (7-18); CALCIUM LEVEL 8.4 MG/DL (8.5-10.1); CARBON DIOXIDE LEVEL 26 MEQ/L (21-32); CHLORIDE LEVEL 109 MEQ/L (98-107); CREATININE FOR GFR 0.94 MG/DL (0.55-1.30); GLOMERULAR FILTRATION RATE > 60.0 (>60); GLUCOSE, FASTING 85 MG/DL (70-100); POTASSIUM SERUM 3.9 MEQ/L (3.5-5.1); SODIUM LEVEL 140 MEQ/L (136-145); TOTAL PROTEIN 6.4 GM/DL (6.4-8.2)
[2021-03-13 08:07] VITALS: BP 107/69
--- NOTE | 2021-03-13 13:35 | ECGEPIP ---
[facility] - ED Test Date: 2021-03-12 Pat Name: ARGELIA CARLOS Department: Room: - Gender: Female [place]ucker: EDELMIRA : 1985 Requested By: JENNIFER VELAZQUEZ Order Number: [id number] Reading MD: Tessa Kuhn Measurements Intervals [place] Rate: 65 P: 46 SD: 178 QRS: 49 QRSD: 92 T: 24 QT: 388 QTc: 403 Interpretive Statements Normal sinus rhythm decreased rate 03/05/21 Electronically Signed on 03-13-2021 13:34:54 EDT by Tessa Kuhn
== END 2021-03-13 08:14 | disposition short-term general hospital (02) ==
LOC: M ED 17:40
DX: T14.91XA Suicide attempt, initial encounter (principal); T65.892A Toxic effect of other specified substances, intentional self-harm, initial encounter; Z79.51 Long term (current) use of inhaled steroids; Z79.899 Other long term (current) drug therapy; Y92.9 Unspecified place or not applicable; Y93.9 Activity, unspecified; Y99.9 Unspecified external cause status

== ENCOUNTER 2022-02-19 14:58 | Emergency (ER) | payer MEDICAID, MEDICARE ==
[~2022-02-19] VITALS: Ht 165.1 cm; Wt 115.3 kg
[~2022-02-19 14:58] MED LIST changes: +ABIL1TAB11 PO; +ALBU2.5V10 INH; -ALBU83IN INH; +ASPI81CH8 PO; +CHLOR25TA PO; -CLOB10TA PO; +CLOB10TA15 PO; +DIPH50CA PO; +FLON1SPR; +FLUO-96 PO; -FLUO20CA20 PO; +FURO20TA2 PO; +LEXA5TAB13 PO; -MONT10TA10 PO; +MONT10TA97 PO; +POLYOPD OU; +TRAZ-252 PO; +ZONE1CAP PO; -ZONI100C17 PO; +ZONI100C67 PO; +med rec comment
[2022-02-19 16:06] LABS: RSV AMPLIFICATION NEGATIVE (NEGATIVE)
[2022-02-19] MEDS ORDERED: BENZONATATE 100MG CAPSULE PO ONE (19:20)
[2022-02-19 20:10] LABS: BASO % 0.3 % (0.0-1.0); EOS % 0.6 % (0.0-3.0); HEMATOCRIT 44.4 % (36.0-47.0); HEMOGLOBIN 14.2 g/dl (12.0-15.5); LYMPH # 2.1 10^3/uL (1.5-5.0); LYMPH % 32.5 % (24.0-44.0); MEAN CORPUSCULAR HEMOGLOBIN 28.1 pg (27.0-33.0); MEAN CORPUSCULAR VOLUME 87.9 fl (80.0-96.0); MONO # 0.6 10^3/uL (0.0-0.8); MONO % 8.6 % (2.0-8.0); NEUTROPHILS # 3.7 10^3/uL (1.5-8.5); NEUTROPHILS % 57.7 % (36.0-66.0); PLATELET COUNT, AUTOMATED 238 10^3/uL (150-450); RED BLOOD COUNT 5.05 10^6/uL (4.00-5.40); WHITE BLOOD COUNT 6.4 10^3/uL (4.0-10.0)
[2022-02-19] MEDS: COMBIVENT RESPIMAT 100-20MCG INHALER 4GM INH SCH ×2 (20:56→21:22)
[2022-02-19] MEDS ORDERED: BENZ200C70 PO (21:36)
[2022-02-19] MEDS ORDERED: IPRAINH INH (21:36)
[2022-02-19 21:47] VITALS: BP 117/58
== END 2022-02-19 21:58 | disposition home or self-care (01) ==
LOC: M ED 14:58
DX: U07.1 COVID-19 (principal); R30.0 Dysuria; J45.909 Unspecified asthma, uncomplicated; E78.5 Hyperlipidemia, unspecified; Z88.1 Allergy status to other antibiotic agents; Z88.8 Allergy status to other drugs, medicaments and biological substances; Z79.51 Long term (current) use of inhaled steroids; Z79.899 Other long term (current) drug therapy

== ENCOUNTER 2023-04-16 02:13 | Emergency (ER) | payer MEDICARE ==
[~2023-04-16] VITALS: Ht 172.7 cm; Wt 86.4 kg
[~2023-04-16 02:13] MED LIST changes: +ARTIDRO4 OU; +BENZ0.5T2 PO; -BENZ0.5T23 PO; +BENZ200C70 PO; +FLUT50SP17; -FLUTISP; +IPRAINH INH; +LORA1TAB23 PO; -LORA1TAB4 PO; -POLYOPD OU; -TRIMSOL10 OU; +TRIMSOL7 OU
[2023-04-16 03:08] LABS: BASO # 0.1 10^3/uL (0.0-0.2); BASO % 0.6 % (0.0-1.0); EOS # 0.2 10^3/uL (0.0-0.5); EOS % 2.5 % (0.0-3.0); HEMATOCRIT 43.2 % (36.0-47.0); LYMPH % 33.1 % (24.0-44.0); MEAN CORPUSCULAR HEMOGLOBIN 30.6 pg (27.0-33.0); MEAN CORPUSCULAR HGB CONC 32.4 g/dl (32.0-36.5); MEAN CORPUSCULAR VOLUME 94.5 fl (80.0-96.0); MONO # 0.6 10^3/uL (0.0-0.8); MONO % 6.6 % (2.0-8.0); NEUTROPHILS # 5.1 10^3/uL (1.5-8.5); PLATELET COUNT, AUTOMATED 239 10^3/uL (150-450); RED BLOOD COUNT 4.57 10^6/uL (4.00-5.40)
[2023-04-16 03:37] LABS: ETHYL ALCOHOL (ETHANOL) < 0.003 % (0.000-0.010); SALICYLATE LEVEL < 3.0 MG/DL (<30)
[2023-04-16 03:38] LABS: ALBUMIN 3.4 G/DL (3.2-5.2); ALKALINE PHOSPHATASE 103 U/L (46-116); ALT/SGPT 11 U/L (7.0-40); AST/SGOT < 8 U/L (<34); BILIRUBIN,DIRECT < 0.1 MG/DL (<0.4); BILIRUBIN,TOTAL 0.2 MG/DL (0.3-1.2); BLOOD UREA NITROGEN 14 MG/DL (9-23); CALCIUM LEVEL 8.5 MG/DL (8.5-10.1); CARBON DIOXIDE LEVEL 27 MMOL/L (20-31); CHLORIDE LEVEL 104 MMOL/L (98-107); CREATININE FOR GFR 0.94 MG/DL (0.55-1.30); GLOMERULAR FILTRATION RATE > 60.0 (>60); GLUCOSE, FASTING 95 MG/DL (60-100); POTASSIUM SERUM 3.6 MMOL/L (3.5-5.1); SODIUM LEVEL 139 MMOL/L (136-145); TOTAL PROTEIN 6.2 G/DL (5.7-8.2)
[2023-04-16 03:48] LABS: HCG, SERUM QUALITATIVE NEGATIVE (NEGATIVE)
[2023-04-16 08:06] LABS: AMPHETAMINES LEVEL URINE NEGATIVE (NEGATIVE); BARBITURATES URINE NEGATIVE (NEGATIVE)
[2023-04-16 08:07] LABS: CANNABINOIDS URINE NEGATIVE (NEGATIVE); COCAINE METABOLITE URINE NEGATIVE (NEGATIVE); METHADONE URINE NEGATIVE (NEGATIVE); OPIATES URINE NEGATIVE (NEGATIVE); PHENCYCLIDINE URINE NEGATIVE (NEGATIVE)
[2023-04-16 08:11] LABS: BENZODIAZEPINES URINE POSITIVE (NEGATIVE)
[2023-04-16] MEDS ORDERED: MED REC IN PROGRESS XX SCH (09:55)
[2023-04-16] MEDS ORDERED: ACETAMINOPHEN TAB 650MG DOSE (2X325MG) PO PRN (12:15)
[2023-04-16] MEDS ORDERED: MIRA3350 PO (16:32)
[2023-04-16] MEDS ORDERED: ALBU2.5V10 INH (16:37)
[2023-04-16] MEDS ORDERED: ABIL1TAB11 PO (16:39)
[2023-04-16] MEDS ORDERED: ASPI81CH33 PO (16:40)
[2023-04-16] MEDS ORDERED: ATOR1TAB21 PO (16:41)
[2023-04-16] MEDS ORDERED: CHLO25TA88 PO (16:43)
[2023-04-16] MEDS ORDERED: CLOB10TA15 PO (16:44)
[2023-04-16] MEDS ORDERED: LEXA5TAB13 PO (16:46)
[2023-04-16] MEDS ORDERED: FURO20TA2 PO (16:47)
[2023-04-16] MEDS ORDERED: LEVO25TA5 PO (16:48)
[2023-04-16] MEDS ORDERED: ARTIDRO4 OU (16:50)
[2023-04-16] MEDS ORDERED: TRAZ-252 PO (16:52)
[2023-04-16] MEDS ORDERED: ZONI100C67 PO (16:54)
[2023-04-16] MEDS ORDERED: HOME MED LIST COMPLETE! XX SCH (17:05)
[2023-04-16] MEDS ORDERED: FUROSEMIDE 40 MG TAB PO ONE (20:30)
[2023-04-16] MEDS ORDERED: LEVOTHYROXINE 25MCG TABLET (0.025MG) PO ONE (20:30)
[2023-04-16] MEDS ORDERED: traZODone 50 MG TAB PO ONE (20:30)
[2023-04-16] MEDS ORDERED: ATORVASTATIN 20 MG TAB PO ONE (20:30)
[2023-04-16] MEDS ORDERED: ASPIRIN 81MG CHEW TABLET PO ONE (20:30)
[2023-04-16] MEDS ORDERED: ESCITALOPRAM OXALATE 10 MG TAB (LEXAPRO) PO ONE (20:30)
[2023-04-16] MEDS ORDERED: ZONISAMIDE 100 MG CAP (ZONEGRAN) PO ONE (20:30)
[2023-04-17] MEDS ORDERED: LEVOTHYROXINE 25MCG TABLET (0.025MG) PO SCH (06:00)
[2023-04-17 06:30] VITALS: TEMP 98; O2SAT 94
[2023-04-17] MEDS ORDERED: FLUTICASONE PROP 0.05% NASAL SPRAY 16 GM (FLONASE) PRN (08:10)
[2023-04-17] MEDS ORDERED: ALBUTEROL SULFATE 2.5MG/0.5ML INH NEB SOLN INH PRN (08:10)
[2023-04-17] MEDS ORDERED: ASPIRIN 81MG CHEW TABLET PO SCH (09:00)
[2023-04-17] MEDS ORDERED: ZONISAMIDE 100 MG CAP (ZONEGRAN) PO SCH (09:00)
[2023-04-17] MEDS ORDERED: MIRALAX *UNIT DOSE* 17GM PACKET PO SCH (09:00)
[2023-04-17] MEDS ORDERED: ATORVASTATIN 20 MG TAB PO SCH (09:00)
[2023-04-17] MEDS ORDERED: FUROSEMIDE 40 MG TAB PO SCH (09:00)
[2023-04-17] MEDS ORDERED: ESCITALOPRAM OXALATE 5MG TABLET (LEXAPRO) PO SCH (09:00)
[2023-04-17 09:58] VITALS: BP 107/79
[2023-04-17] MEDS ORDERED: traZODone 50 MG TAB PO SCH (21:00)
== END 2023-04-17 10:27 | disposition home or self-care (01) ==
LOC: M ED 02:13
DX: F43.0 Acute stress reaction (principal); R45.851 Suicidal ideations; E78.5 Hyperlipidemia, unspecified; F20.9 Schizophrenia, unspecified; R62.50 Unspecified lack of expected normal physiological development in childhood; E03.9 Hypothyroidism, unspecified; Z88.1 Allergy status to other antibiotic agents; Z88.8 Allergy status to other drugs, medicaments and biological substances; Z79.52 Long term (current) use of systemic steroids; Z79.82 Long term (current) use of aspirin; Z79.02 Long term (current) use of antithrombotics/antiplatelets; Z79.899 Other long term (current) drug therapy

== ENCOUNTER 2023-06-07 17:29 | Emergency (ER) | payer MEDICARE ==
[~2023-06-07] VITALS: Ht 162.6 cm; Wt 93.9 kg
[~2023-06-07 17:29] MED LIST changes: +ASPI81CH33 PO; +CHLO25TA88 PO; -FLUT50SP17; +FLUTISP; +MIRA3350 PO
[2023-06-07 18:38] LABS: HEMATOCRIT 42.6 % (36.0-47.0); HEMOGLOBIN 13.9 g/dl (12.0-15.5); MEAN CORPUSCULAR HEMOGLOBIN 30.6 pg (27.0-33.0); MEAN CORPUSCULAR HGB CONC 32.6 g/dl (32.0-36.5); MEAN CORPUSCULAR VOLUME 93.8 fl (80.0-96.0); PLATELET COUNT, AUTOMATED 262 10^3/uL (150-450); RED BLOOD COUNT 4.54 10^6/uL (4.00-5.40); WHITE BLOOD COUNT 8.6 10^3/uL (4.0-10.0)
[2023-06-08 08:45] VITALS: BP 110/71; TEMP 98.9; O2SAT 95
== END 2023-06-08 08:46 | disposition home or self-care (01) ==
LOC: M ED 17:29
DX: K59.00 Constipation, unspecified (principal); M54.50 Low back pain, unspecified; E78.5 Hyperlipidemia, unspecified; G40.909 Epilepsy, unspecified, not intractable, without status epilepticus; E03.9 Hypothyroidism, unspecified; Z87.442 Personal history of urinary calculi; Z88.1 Allergy status to other antibiotic agents; Z88.8 Allergy status to other drugs, medicaments and biological substances

== ENCOUNTER 2023-06-12 06:28 | Emergency (ER) | payer MEDICARE ==
[~2023-06-12] VITALS: Ht 152.4 cm; Wt 91.0 kg
[2023-06-12 07:18] LABS: HEMATOCRIT 43.6 % (36.0-47.0); HEMOGLOBIN 14.1 g/dl (12.0-15.5); MEAN CORPUSCULAR HEMOGLOBIN 30.4 pg (27.0-33.0); MEAN CORPUSCULAR HGB CONC 32.3 g/dl (32.0-36.5); PLATELET COUNT, AUTOMATED 259 10^3/uL (150-450); RED BLOOD COUNT 4.64 10^6/uL (4.00-5.40); WHITE BLOOD COUNT 6.9 10^3/uL (4.0-10.0)
[2023-06-12 07:39] LABS: AMPHETAMINES LEVEL URINE NEGATIVE (NEGATIVE); BARBITURATES URINE NEGATIVE (NEGATIVE); CANNABINOIDS URINE NEGATIVE (NEGATIVE); COCAINE METABOLITE URINE NEGATIVE (NEGATIVE); METHADONE URINE NEGATIVE (NEGATIVE); OPIATES URINE NEGATIVE (NEGATIVE); PHENCYCLIDINE URINE NEGATIVE (NEGATIVE)
[2023-06-12 07:42] LABS: BENZODIAZEPINES URINE POSITIVE (NEGATIVE)
[2023-06-12 07:43] LABS: SALICYLATE LEVEL < 3.0 MG/DL (<30)
[2023-06-12 07:44] LABS: ALBUMIN 3.9 G/DL (3.2-5.2); ALKALINE PHOSPHATASE 103 U/L (46-116); ALT/SGPT 12 U/L (7.0-40); AST/SGOT 9 U/L (<34); BILIRUBIN,DIRECT 0.1 MG/DL (<0.4); BILIRUBIN,TOTAL 0.4 MG/DL (0.3-1.2); BLOOD UREA NITROGEN 13 MG/DL (9-23); CALCIUM LEVEL 8.6 MG/DL (8.5-10.1); CARBON DIOXIDE LEVEL 24 MMOL/L (20-31); CHLORIDE LEVEL 106 MMOL/L (98-107); CREATININE FOR GFR 0.91 MG/DL (0.55-1.30); GLOMERULAR FILTRATION RATE > 60.0 (>60); GLUCOSE, FASTING 103 MG/DL (60-100); POTASSIUM SERUM 3.7 MMOL/L (3.5-5.1); SODIUM LEVEL 137 MMOL/L (136-145); TOTAL PROTEIN 6.8 G/DL (5.7-8.2)
[2023-06-12 07:46] LABS: ETHYL ALCOHOL (ETHANOL) 0.005 % (0.000-0.010); THYROID STIMULATING HORMONE 5.051 uIU/ML (0.55-4.78)
[2023-06-12 09:02] LABS: FREE T4 0.89 NG/DL (0.89-1.76)
[2023-06-12] MEDS ORDERED: CHLOR50TA PO ×2 (10:48)
[2023-06-12] MEDS ORDERED: SOLI10TA PO (10:48)
[2023-06-12] MEDS ORDERED: ALBU1.25 INH (10:48)
[2023-06-12] MEDS ORDERED: D 101000 PO (10:48)
[2023-06-12] MEDS ORDERED: LEXA1TAB PO (10:48)
[2023-06-12] MEDS ORDERED: LIDO5DIS41 TD (10:48)
[2023-06-12] MEDS ORDERED: MILKSUS3 PO (10:48)
[2023-06-12] MEDS ORDERED: FURO40TA2 PO (10:48)
[2023-06-12] MEDS ORDERED: FLUT15.820 NARES (10:48)
[2023-06-12] MEDS ORDERED: HOME MED LIST COMPLETE! XX SCH (10:50)
[2023-06-13] MEDS ORDERED: LEVOTHYROXINE 25MCG TABLET (0.025MG) PO SCH (06:00)
[2023-06-13] MEDS ORDERED: LORazepam 2 MG TAB PO STA (07:48)
[2023-06-13 07:52] VITALS: BP 109/70; TEMP 98.1; O2SAT 96
[2023-06-13] MEDS ORDERED: SOLIFENACIN 5 MG TAB PO SCH (09:00)
[2023-06-13] MEDS ORDERED: ZONISAMIDE 100 MG CAP (ZONEGRAN) PO SCH (09:00)
[2023-06-13] MEDS ORDERED: FUROSEMIDE 40 MG TAB PO SCH (09:00)
[2023-06-13] MEDS ORDERED: ESCITALOPRAM OXALATE 5MG TABLET (LEXAPRO) PO SCH (09:00)
[2023-06-13] MEDS ORDERED: ATORVASTATIN 20 MG TAB PO SCH (09:00)
[2023-06-14] MEDS ORDERED: ONDA4TAB6 PO (21:32)
== END 2023-06-13 08:51 | disposition home or self-care (01) ==
LOC: M ED 06:28 → EDBD 06:28 → M ED 06-13 08:51
DX: F43.0 Acute stress reaction (principal); F20.9 Schizophrenia, unspecified; F70 Mild intellectual disabilities; 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, not intractable, without status epilepticus; R47.9 Unspecified speech disturbances; Z79.52 Long term (current) use of systemic steroids; Z79.83 Long term (current) use of bisphosphonates; Z79.899 Other long term (current) drug therapy

== ENCOUNTER 2023-06-14 17:10 | Emergency (ER) | payer MEDICARE ==
[~2023-06-14] VITALS: Ht 157.5 cm; Wt 95.3 kg
[~2023-06-14 17:10] MED LIST changes: +ALBU1.25 INH; +D 101000 PO; +FLUT15.820 NARES; +FURO40TA2 PO; +LIDO5DIS41 TD; +MILKSUS3 PO; +SOLI10TA PO
[2023-06-14 18:57] LABS: WHITE BLOOD COUNT 10.5 10^3/uL (4.0-10.0)
[2023-06-14 18:58] LABS: BASO # 0.1 10^3/uL (0.0-0.2); BASO % 0.8 % (0.0-1.0); EOS # 0.2 10^3/uL (0.0-0.5); EOS % 1.6 % (0.0-3.0); HEMATOCRIT 44.3 % (36.0-47.0); HEMOGLOBIN 14.3 g/dl (12.0-15.5); LYMPH # 3.2 10^3/uL (1.5-5.0); LYMPH % 30.5 % (24.0-44.0); MEAN CORPUSCULAR HEMOGLOBIN 30.3 pg (27.0-33.0); MEAN CORPUSCULAR HGB CONC 32.3 g/dl (32.0-36.5); MEAN CORPUSCULAR VOLUME 93.9 fl (80.0-96.0); MONO # 0.7 10^3/uL (0.0-0.8); MONO % 6.9 % (2.0-8.0); NEUTROPHILS # 6.3 10^3/uL (1.5-8.5); NEUTROPHILS % 59.9 % (36.0-66.0); PLATELET COUNT, AUTOMATED 270 10^3/uL (150-450); RED BLOOD COUNT 4.72 10^6/uL (4.00-5.40)
[2023-06-14 19:16] LABS: HCG, SERUM QUALITATIVE NEGATIVE (NEGATIVE); LIPASE 35 U/L (12-53)
[2023-06-14 19:18] LABS: ALBUMIN 3.7 G/DL (3.2-5.2); ALKALINE PHOSPHATASE 108 U/L (46-116); ALT/SGPT 12 U/L (7.0-40); AST/SGOT < 8 U/L (<34); BILIRUBIN,DIRECT < 0.1 MG/DL (<0.4); BILIRUBIN,TOTAL 0.2 MG/DL (0.3-1.2); BLOOD UREA NITROGEN 15 MG/DL (9-23); CARBON DIOXIDE LEVEL 27 MMOL/L (20-31); CHLORIDE LEVEL 105 MMOL/L (98-107); CREATININE FOR GFR 0.87 MG/DL (0.55-1.30); GLOMERULAR FILTRATION RATE > 60.0 (>60); GLUCOSE, FASTING 97 MG/DL (60-100); POTASSIUM SERUM 3.7 MMOL/L (3.5-5.1); SODIUM LEVEL 136 MMOL/L (136-145); TOTAL PROTEIN 6.6 G/DL (5.7-8.2)
[2023-06-14] MEDS ORDERED: ONDANSETRON 4MG ORAL DISINTEGRATING TAB PO ONE (20:45)
[2023-06-14] MEDS ORDERED: MAGNESIUM CITRATE 300ML BTL PO ONE (21:25)
[2023-06-14] MEDS ORDERED: ONDA4TAB6 PO (21:32)
[2023-06-14 21:56] VITALS: BP 114/64; TEMP 97.8; O2SAT 99
== END 2023-06-14 21:58 | disposition home or self-care (01) ==
LOC: EDBD 17:10 → M ED 17:10
DX: K59.00 Constipation, unspecified (principal); E78.5 Hyperlipidemia, unspecified; F20.9 Schizophrenia, unspecified; G40.909 Epilepsy, unspecified, not intractable, without status epilepticus; K21.9 Gastro-esophageal reflux disease without esophagitis; Z79.52 Long term (current) use of systemic steroids; Z79.83 Long term (current) use of bisphosphonates; Z79.899 Other long term (current) drug therapy; Z88.1 Allergy status to other antibiotic agents; Z88.8 Allergy status to other drugs, medicaments and biological substances

== ENCOUNTER 2023-11-07 10:35 | Emergency (ER) | payer MEDICARE ==
[~2023-11-07] VITALS: Ht 165.1 cm; Wt 101.9 kg
[~2023-11-07 10:35] MED LIST changes: -CLOB10TA15 PO; +CLOB10TA3 PO; +ERYT1GEL5 TOP; -ERYTGEL TOP; +FLUO-365 PO; -FLUO20CA22 PO; +ONDA-282 PO
[2023-11-07] MEDS: LIDOCAINE 2% 5ML JELLY UROJET TOP ONE (11:05)
[2023-11-07] MEDS ORDERED: CLON0.5T17 PO (11:06)
[2023-11-07] MEDS ORDERED: CLON0.12 PO (11:06)
[2023-11-07] MEDS ORDERED: FLUTISP (11:06)
[2023-11-07] MEDS ORDERED: ABIL10TA9 PO (11:06)
[2023-11-07] MEDS: NS 1,000 ML IV ONE (11:33)
[2023-11-07 11:43] LABS: BASO % 0.5 % (0.0-1.0); EOS # 0.1 10^3/uL (0.0-0.5); EOS % 1.3 % (0.0-3.0); HEMATOCRIT 42.9 % (36.0-47.0); HEMOGLOBIN 13.8 g/dl (12.0-15.5); LYMPH # 2.4 10^3/uL (1.5-5.0); LYMPH % 28.8 % (24.0-44.0); MEAN CORPUSCULAR HEMOGLOBIN 30.6 pg (27.0-33.0); MEAN CORPUSCULAR HGB CONC 32.2 g/dl (32.0-36.5); MEAN CORPUSCULAR VOLUME 95.1 fl (80.0-96.0); MONO # 0.7 10^3/uL (0.0-0.8); MONO % 7.9 % (2.0-8.0); NEUTROPHILS # 5.1 10^3/uL (1.5-8.5); NEUTROPHILS % 61.3 % (36.0-66.0); PLATELET COUNT, AUTOMATED 248 10^3/uL (150-450); RED BLOOD COUNT 4.51 10^6/uL (4.00-5.40); WHITE BLOOD COUNT 8.3 10^3/uL (4.0-10.0)
[2023-11-07 11:59] LABS: INR 0.97; PROTHROMBIN TIME 12.6 SECONDS (12.5-14.5)
[2023-11-07 12:10] LABS: C REACTIVE PROTEIN QUANTITATIV < 0.40 MG/DL (<1.0); LIPASE 27 U/L (12-53)
[2023-11-07 12:11] LABS: ALBUMIN 3.5 G/DL (3.2-5.2); ALKALINE PHOSPHATASE 97 U/L (46-116); ALT/SGPT 19 U/L (7.0-40); AST/SGOT 8 U/L (<34); BILIRUBIN,DIRECT 0.1 MG/DL (<0.4); BILIRUBIN,TOTAL 0.4 MG/DL (0.3-1.2); BLOOD UREA NITROGEN 10 MG/DL (9-23); CALCIUM LEVEL 8.4 MG/DL (8.5-10.1); CARBON DIOXIDE LEVEL 29 MMOL/L (20-31); CHLORIDE LEVEL 105 MMOL/L (98-107); CREATININE FOR GFR 0.96 MG/DL (0.55-1.30); GLOMERULAR FILTRATION RATE > 60.0 (>60); GLUCOSE, FASTING 89 MG/DL (60-100); POTASSIUM SERUM 3.8 MMOL/L (3.5-5.1); SODIUM LEVEL 140 MMOL/L (136-145); TOTAL PROTEIN 6.6 G/DL (5.7-8.2)
[2023-11-07] MEDS: CIPROFLOXACIN 400 MG in IV 1 EA IV ONE (12:28)
[2023-11-07] MEDS: ONDANSETRON 4MG 2ML VIAL IV ONE (12:28)
[2023-11-07 12:45] LABS: HCG, SERUM QUALITATIVE NEGATIVE (NEGATIVE)
[2023-11-07] MEDS ORDERED: CIPR-249 PO (14:57)
[2023-11-07] MEDS ORDERED: FLOM0.4C39 PO (14:57)
[2023-11-07] MEDS ORDERED: SENN-52 PO (14:57)
[2023-11-07] MEDS ORDERED: KETO10TAB PO (14:57)
[2023-11-07] MEDS: KETOROLAC 30 MG/ML 1ML VIAL IV ONE (15:27)
[2023-11-07] MEDS: TAMSULOSIN 0.4 MG CAP PO ONE (15:27)
[2023-11-07] MEDS: MIRALAX *UNIT DOSE* 17GM PACKET PO ONE (15:27)
[2023-11-07 15:30] VITALS: BP 138/71; TEMP 97.6; O2SAT 100
== END 2023-11-07 15:30 | disposition home or self-care (01) ==
LOC: M ED 10:35 → EDBD 10:35 → M ED 15:30
DX: N20.0 Calculus of kidney (principal); K59.00 Constipation, unspecified; N39.0 Urinary tract infection, site not specified; F79 Unspecified intellectual disabilities; D35.2 Benign neoplasm of pituitary gland; G40.909 Epilepsy, unspecified, not intractable, without status epilepticus; Z88.1 Allergy status to other antibiotic agents; Z88.8 Allergy status to other drugs, medicaments and biological substances; Z79.2 Long term (current) use of antibiotics; Z79.52 Long term (current) use of systemic steroids; Z79.02 Long term (current) use of antithrombotics/antiplatelets; Z79.83 Long term (current) use of bisphosphonates; Z79.899 Other long term (current) drug therapy
CPT/HCPCS: 74176; 80048; 80076; 81001; 83605; 83690; 84703; 85025; 85610; 86140; 87040; 87086; 93041; 96365; 96366; 96375; 99285; J0744; J1885; J2405

== ENCOUNTER 2023-11-17 18:49 | Emergency (ER) | payer MEDICARE ==
[~2023-11-17 18:49] MED LIST changes: +ABIL10TA9 PO; +CIPR-249 PO; +CLON0.12 PO; +CLON0.5T17 PO; +FLOM0.4C39 PO; +KETO10TAB PO; +SENN-52 PO
[2023-11-17 19:02] VITALS: BP 114/78; TEMP 97.8; O2SAT 98
[2023-11-17 19:44] LABS: HEMOGLOBIN 13.6 g/dl (12.0-15.5); MEAN CORPUSCULAR HEMOGLOBIN 30.3 pg (27.0-33.0); MEAN CORPUSCULAR HGB CONC 32.4 g/dl (32.0-36.5); MEAN CORPUSCULAR VOLUME 93.5 fl (80.0-96.0); PLATELET COUNT, AUTOMATED 254 10^3/uL (150-450); RED BLOOD COUNT 4.49 10^6/uL (4.00-5.40); WHITE BLOOD COUNT 9.6 10^3/uL (4.0-10.0)
[2023-11-17 20:06] LABS: AMPHETAMINES LEVEL URINE NEGATIVE (NEGATIVE); BARBITURATES URINE NEGATIVE (NEGATIVE); CANNABINOIDS URINE NEGATIVE (NEGATIVE); COCAINE METABOLITE URINE NEGATIVE (NEGATIVE); METHADONE URINE NEGATIVE (NEGATIVE); OPIATES URINE NEGATIVE (NEGATIVE); PHENCYCLIDINE URINE NEGATIVE (NEGATIVE)
[2023-11-17 20:08] LABS: ETHYL ALCOHOL (ETHANOL) < 0.003 % (0.000-0.010); SALICYLATE LEVEL < 3.0 MG/DL (<30)
[2023-11-17 20:09] LABS: ALBUMIN 3.5 G/DL (3.2-5.2); ALKALINE PHOSPHATASE 98 U/L (46-116); ALT/SGPT 19 U/L (7.0-40); AST/SGOT 9 U/L (<34); BILIRUBIN,DIRECT < 0.1 MG/DL (<0.4); BILIRUBIN,TOTAL 0.3 MG/DL (0.3-1.2); BLOOD UREA NITROGEN 10 MG/DL (9-23); CARBON DIOXIDE LEVEL 27 MMOL/L (20-31); CHLORIDE LEVEL 106 MMOL/L (98-107); CREATININE FOR GFR 0.89 MG/DL (0.55-1.30); GLOMERULAR FILTRATION RATE > 60.0 (>60); GLUCOSE, FASTING 83 MG/DL (60-100); POTASSIUM SERUM 4.1 MMOL/L (3.5-5.1); SODIUM LEVEL 137 MMOL/L (136-145); TOTAL PROTEIN 6.6 G/DL (5.7-8.2)
[2023-11-17 20:11] LABS: THYROID STIMULATING HORMONE 4.733 uIU/ML (0.55-4.78)
[2023-11-17 20:13] LABS: HCG, SERUM QUALITATIVE NEGATIVE (NEGATIVE)
[2023-11-17 20:17] LABS: BENZODIAZEPINES URINE POSITIVE (NEGATIVE)
== END 2023-11-18 00:59 | disposition home or self-care (01) ==
LOC: EDBD 18:49 → M ED 18:49
DX: R45.851 Suicidal ideations (principal); F20.9 Schizophrenia, unspecified; F79 Unspecified intellectual disabilities; J45.909 Unspecified asthma, uncomplicated; E03.9 Hypothyroidism, unspecified; K21.9 Gastro-esophageal reflux disease without esophagitis; Z88.1 Allergy status to other antibiotic agents; Z88.8 Allergy status to other drugs, medicaments and biological substances; Z79.52 Long term (current) use of systemic steroids; Z79.02 Long term (current) use of antithrombotics/antiplatelets; Z79.83 Long term (current) use of bisphosphonates; Z79.899 Other long term (current) drug therapy

== ENCOUNTER → 2024-01-01 | Outpatient (CLI) | payer MEDICARE | LOC: M WUC 09:58 | PROVIDERS: ATTEND Physician Assistant | DX: M79.645 Pain in left finger(s) (principal); S62.635A Displaced fracture of distal phalanx of left ring finger, initial encounter for closed fracture; X58.XXXA Exposure to other specified factors, initial encounter; Y92.9 Unspecified place or not applicable ==

== ENCOUNTER 2024-10-04 14:14 | Emergency (ER) | payer MEDICARE ==
[~2024-10-04] VITALS: Ht 165.1 cm; Wt 110.2 kg
[~2024-10-04 14:14] MED LIST changes: -FLOM0.4C39 PO; +KETO120S5 TOP; -KETO2SHA8 TOP; +LIDO1ADH93 TD; -LIDO5DIS41 TD; -OLAN15TA13 PO; +OLAN15TA69 PO; +POLYOPSO OU; +TAMS-18 PO; -TRIMSOL7 OU
[2024-10-04] MEDS ORDERED: PANT40TA29 (14:32)
[2024-10-04] MEDS ORDERED: CALC1TAB42 (14:32)
[2024-10-04 15:45] LABS: KETONE, URINE AUTO RFX NEGATIVE (NEGATIVE); NITRITE, URINE AUTO RFX NEGATIVE (NEGATIVE); RBC, URINE AUTO RFX 0 /HPF (0-3); SQUAM EPITHELIAL CELL UR AURFX 9 /HPF (0-6); WBC, URINE AUTO RFX 4 /HPF (0-3)
[2024-10-04 15:48] LABS: LEUKOCYTE ESTERASE UR AUTO RFX TRACE (NEGATIVE)
[2024-10-04 16:43] VITALS: BP 120/69; TEMP 98.2; O2SAT 97
[2024-10-04 17:14] LABS: BASO % 0.4 % (0.0-1.0); EOS # 0.2 10^3/uL (0.0-0.5); EOS % 1.6 % (0.0-3.0); HEMATOCRIT 44.3 % (36.0-47.0); HEMOGLOBIN 14.3 g/dl (12.0-15.5); LYMPH # 2.5 10^3/uL (1.5-5.0); LYMPH % 23.5 % (24.0-44.0); MEAN CORPUSCULAR HEMOGLOBIN 30.8 pg (27.0-33.0); MEAN CORPUSCULAR HGB CONC 32.3 g/dl (32.0-36.5); MEAN CORPUSCULAR VOLUME 95.5 fl (80.0-96.0); MONO # 0.7 10^3/uL (0.0-0.8); MONO % 6.4 % (2.0-8.0); NEUTROPHILS # 7.3 10^3/uL (1.5-8.5); NEUTROPHILS % 67.7 % (36.0-66.0); PLATELET COUNT, AUTOMATED 296 10^3/uL (150-450); RED BLOOD COUNT 4.64 10^6/uL (4.00-5.40); WHITE BLOOD COUNT 10.7 10^3/uL (4.0-10.0)
[2024-10-04] MEDS ORDERED: ISOVUE-370 76% 100ML VIAL As Ordered ONE (17:34)
[2024-10-04 17:39] LABS: LIPASE 30 U/L (12-53)
[2024-10-04 17:42] LABS: ALBUMIN 3.4 G/DL (3.2-5.2); ALKALINE PHOSPHATASE 95 U/L (35-104); ALT/SGPT 23 U/L (7.0-40); AST/SGOT 18 U/L (<34); BILIRUBIN,DIRECT < 0.1 MG/DL (<0.4); BILIRUBIN,TOTAL 0.2 MG/DL (0.3-1.2); TOTAL PROTEIN 6.7 G/DL (5.7-8.2)
== END 2024-10-04 19:25 | disposition home or self-care (01) ==
LOC: M ED 14:14
DX: S30.1XXA Contusion of abdominal wall, initial encounter (principal); Y04.8XXA Assault by other bodily force, initial encounter; K76.89 Other specified diseases of liver; N28.1 Cyst of kidney, acquired; K21.9 Gastro-esophageal reflux disease without esophagitis; J45.909 Unspecified asthma, uncomplicated; E03.9 Hypothyroidism, unspecified; F41.9 Anxiety disorder, unspecified; Z79.52 Long term (current) use of systemic steroids; Z79.899 Other long term (current) drug therapy; Z88.1 Allergy status to other antibiotic agents; Z88.8 Allergy status to other drugs, medicaments and biological substances; Y92.89 Other specified places as the place of occurrence of the external cause; Y93.89 Activity, other specified; Y99.9 Unspecified external cause status
CPT/HCPCS: 36415; 70450; 74177; 80047; 80076; 81001; 83690; 84702; 85025; 87086; 99284; Q9967

== ENCOUNTER 2025-02-16 21:11 | Emergency (ER) | payer MEDICARE, MEDICAID ==
[~2025-02-16] VITALS: Ht 165.1 cm; Wt 110.0 kg
[~2025-02-16 21:11] MED LIST changes: +CALC1TAB42; -DIPH50CA PO; +DIPH50CA31 PO; +PANT40TA29; -PROZ20CA11 PO; +PROZ20CA12 PO
[2025-02-16 22:34] LABS: BASO # 0.0 10^3/uL (0.0-0.2); BASO % 0.4 % (0.0-1.0); EOS # 0.2 10^3/uL (0.0-0.5); EOS % 1.8 % (0.0-3.0); LYMPH # 2.9 10^3/uL (1.5-5.0); LYMPH % 30.9 % (24.0-44.0); MONO # 0.8 10^3/uL (0.0-0.8); MONO % 8.9 % (2.0-8.0); NEUTROPHILS # 5.5 10^3/uL (1.5-8.5); NEUTROPHILS % 57.8 % (36.0-66.0); PLATELET COUNT, AUTOMATED 255 10^3/uL (150-450)
[2025-02-16 22:41] LABS: KETONE, URINE AUTO RFX NEGATIVE (NEGATIVE); LEUKOCYTE ESTERASE UR AUTO RFX NEGATIVE (NEGATIVE); NITRITE, URINE AUTO RFX NEGATIVE (NEGATIVE); RBC, URINE AUTO RFX 2 /HPF (0-3); SQUAM EPITHELIAL CELL UR AURFX 1 /HPF (0-6); WBC, URINE AUTO RFX 1 /HPF (0-3)
[2025-02-16 22:54] LABS: ALT/SGPT 13 U/L (7.0-40); AST/SGOT 10 U/L (<34); CALCIUM LEVEL 8.3 MG/DL (8.5-10.1); CARBON DIOXIDE LEVEL 24 MMOL/L (20-31); CHLORIDE LEVEL 109 MMOL/L (98-107); CREATININE FOR GFR 0.96 MG/DL (0.55-1.30); GLOMERULAR FILTRATION RATE 77.2 (>60); POTASSIUM SERUM 3.7 MMOL/L (3.5-5.1); SODIUM LEVEL 140 MMOL/L (136-145)
[2025-02-16] MEDS: ONDANSETRON 4MG 2ML VIAL IV ONE (23:00)
[2025-02-16] MEDS: NS (Normal Saline) 0.9% 1,000 ML IV ONE (23:00)
[2025-02-16 23:03] LABS: HCG, SERUM QUALITATIVE NEGATIVE (NEGATIVE)
[2025-02-17 01:45] VITALS: BP 112/67; TEMP 97.4; O2SAT 99
[2025-02-17] MEDS: MAGNESIUM CITRATE 300 ML BTL PO ONE (01:58)
== END 2025-02-17 02:00 | disposition home or self-care (01) ==
LOC: M ED 21:11
DX: K59.00 Constipation, unspecified (principal); F79 Unspecified intellectual disabilities; Q40.0 Congenital hypertrophic pyloric stenosis; J45.909 Unspecified asthma, uncomplicated; E03.9 Hypothyroidism, unspecified; K21.9 Gastro-esophageal reflux disease without esophagitis; Z79.52 Long term (current) use of systemic steroids; Z79.02 Long term (current) use of antithrombotics/antiplatelets; Z79.899 Other long term (current) drug therapy; Z88.1 Allergy status to other antibiotic agents; Z88.8 Allergy status to other drugs, medicaments and biological substances
CPT/HCPCS: 74018; 80048; 80076; 81001; 83605; 83690; 84703; 85025; 96361; 96374; 99284; J2405

== ENCOUNTER 2025-04-25 12:36 | Emergency (ER) | payer MEDICARE, MEDICAID ==
[~2025-04-25] VITALS: Ht 170.2 cm; Wt 113.6 kg
[~2025-04-25 12:36] MED LIST changes: -PROZ20CA12 PO; +PROZ20CA25 PO
[2025-04-25 13:55] LABS: BASO # 0.1 10^3/uL (0.0-0.2); BASO % 0.7 % (0.0-1.0); EOS # 0.1 10^3/uL (0.0-0.5); EOS % 1.6 % (0.0-3.0); LYMPH # 2.2 10^3/uL (1.5-5.0); LYMPH % 26.7 % (24.0-44.0); MONO # 0.7 10^3/uL (0.0-0.8); MONO % 8.0 % (2.0-8.0); NEUTROPHILS # 5.2 10^3/uL (1.5-8.5); NEUTROPHILS % 62.6 % (36.0-66.0); PLATELET COUNT, AUTOMATED 244 10^3/uL (150-450)
[2025-04-25 14:18] LABS: ALT/SGPT 11 U/L (7.0-40); AST/SGOT 11 U/L (<34); CALCIUM LEVEL 8.7 MG/DL (8.5-10.1); CARBON DIOXIDE LEVEL 24 MMOL/L (20-31); CHLORIDE LEVEL 109 MMOL/L (98-107); CREATININE FOR GFR 0.89 MG/DL (0.55-1.30); GLOMERULAR FILTRATION RATE 84.0 (>58); POTASSIUM SERUM 4.1 MMOL/L (3.5-5.1); SODIUM LEVEL 140 MMOL/L (136-145)
[2025-04-25] MEDS ORDERED: ISOVUE-370 76% 100 ML VIAL As Ordered ONE (16:34)
[2025-04-25 19:25] VITALS: BP 116/60; TEMP 98.6; O2SAT 95
== END 2025-04-25 19:33 | disposition home or self-care (01) ==
LOC: M ED 12:36
DX: J20.9 Acute bronchitis, unspecified (principal); F32.A Depression, unspecified; E03.9 Hypothyroidism, unspecified; F41.0 Panic disorder [episodic paroxysmal anxiety]; E78.5 Hyperlipidemia, unspecified; J45.909 Unspecified asthma, uncomplicated; K21.9 Gastro-esophageal reflux disease without esophagitis; F79 Unspecified intellectual disabilities; Z88.1 Allergy status to other antibiotic agents; Z88.8 Allergy status to other drugs, medicaments and biological substances; Z79.52 Long term (current) use of systemic steroids; Z79.899 Other long term (current) drug therapy
CPT/HCPCS: 71046; 71275; 74177; 80048; 80076; 83605; 83880; 85025; 87040; 87486; 87581; 87633; 87798; 96374; 99284; J1100; Q9967

== ENCOUNTER 2025-04-30 17:57 | Emergency (ER) | payer MEDICARE, MEDICAID ==
[2025-04-30 18:50] LABS: PLATELET COUNT, AUTOMATED 259 10^3/uL (150-450)
[2025-04-30 19:10] LABS: AMPHETAMINES LEVEL URINE NEGATIVE (NEGATIVE); BARBITURATES URINE NEGATIVE (NEGATIVE); CANNABINOIDS URINE NEGATIVE (NEGATIVE); COCAINE METABOLITE URINE NEGATIVE (NEGATIVE); METHADONE URINE NEGATIVE (NEGATIVE); OPIATES URINE NEGATIVE (NEGATIVE); PHENCYCLIDINE URINE NEGATIVE (NEGATIVE)
[2025-04-30 19:13] LABS: BENZODIAZEPINES URINE POSITIVE (NEGATIVE); ETHYL ALCOHOL (ETHANOL) < 0.003 % (0.000-0.010)
[2025-04-30 19:14] LABS: ALT/SGPT 10 U/L (7.0-40); AST/SGOT 14 U/L (<34); CALCIUM LEVEL 8.4 MG/DL (8.5-10.1); CARBON DIOXIDE LEVEL 22 MMOL/L (20-31); CHLORIDE LEVEL 109 MMOL/L (98-107); CREATININE FOR GFR 0.88 MG/DL (0.55-1.30); GLOMERULAR FILTRATION RATE 85.2 (>58); POTASSIUM SERUM 4.3 MMOL/L (3.5-5.1); SODIUM LEVEL 142 MMOL/L (136-145)
[2025-04-30 19:15] LABS: SALICYLATE LEVEL < 3.0 MG/DL (<30)
[2025-05-01 06:36] VITALS: BP 104/51; TEMP 97.4; O2SAT 95
== END 2025-05-01 08:33 | disposition home or self-care (01) ==
LOC: M ED 17:57
DX: F23 Brief psychotic disorder (principal); F32.A Depression, unspecified; J45.909 Unspecified asthma, uncomplicated; K21.9 Gastro-esophageal reflux disease without esophagitis; Z88.1 Allergy status to other antibiotic agents; Z88.8 Allergy status to other drugs, medicaments and biological substances; Z79.52 Long term (current) use of systemic steroids; Z79.899 Other long term (current) drug therapy; Z79.02 Long term (current) use of antithrombotics/antiplatelets

== ENCOUNTER 2025-05-20 12:12 | Emergency (ER) | payer MEDICARE, MEDICAID ==
[~2025-05-20] VITALS: Ht 167.6 cm; Wt 117.2 kg
[~2025-05-20 12:12] MED LIST changes: -CALC1TAB42; +CALC1TAB42 PO; -PANT40TA29; +PANT40TA29 PO
[2025-05-20 12:39] LABS: BASO # 0.0 10^3/uL (0.0-0.2); BASO % 0.5 % (0.0-1.0); EOS # 0.2 10^3/uL (0.0-0.5); EOS % 2.0 % (0.0-3.0); LYMPH # 1.8 10^3/uL (1.5-5.0); LYMPH % 23.0 % (24.0-44.0); MONO # 0.7 10^3/uL (0.0-0.8); MONO % 8.4 % (2.0-8.0); NEUTROPHILS # 5.2 10^3/uL (1.5-8.5); NEUTROPHILS % 65.8 % (36.0-66.0); PLATELET COUNT, AUTOMATED 232 10^3/uL (150-450)
[2025-05-20 13:06] LABS: ETHYL ALCOHOL (ETHANOL) < 0.003 % (0.000-0.010)
[2025-05-20 13:07] LABS: ALT/SGPT 9 U/L (7.0-40); AST/SGOT 13 U/L (<34); CALCIUM LEVEL 8.2 MG/DL (8.5-10.1); CARBON DIOXIDE LEVEL 24 MMOL/L (20-31); CHLORIDE LEVEL 108 MMOL/L (98-107); CREATININE FOR GFR 0.88 MG/DL (0.55-1.30); GLOMERULAR FILTRATION RATE 85.2 (>58); POTASSIUM SERUM 3.9 MMOL/L (3.5-5.1); SALICYLATE LEVEL < 3.0 MG/DL (<30); SODIUM LEVEL 140 MMOL/L (136-145)
[2025-05-20 13:11] LABS: CPK CREATINE PHOSPHOKINASE 31 U/L (34-145)
[2025-05-20 14:35] LABS: AMPHETAMINES LEVEL URINE NEGATIVE (NEGATIVE); BARBITURATES URINE NEGATIVE (NEGATIVE); CANNABINOIDS URINE NEGATIVE (NEGATIVE); COCAINE METABOLITE URINE NEGATIVE (NEGATIVE); METHADONE URINE NEGATIVE (NEGATIVE); OPIATES URINE NEGATIVE (NEGATIVE); PHENCYCLIDINE URINE NEGATIVE (NEGATIVE)
[2025-05-20 14:37] LABS: BENZODIAZEPINES URINE POSITIVE (NEGATIVE)
[2025-05-20 23:00] VITALS: BP 109/52; TEMP 98.5; O2SAT 100
[2025-05-21] MEDS ORDERED: DEXT1DRO4 OU (00:21)
[2025-05-21] MEDS ORDERED: VITA500T10 PO (00:21)
[2025-05-21] MEDS ORDERED: ENUL10SO PO (00:21)
[2025-05-21] MEDS ORDERED: FLUTISP (00:21)
[2025-05-21] MEDS ORDERED: CLOB20TA3 PO (00:21)
[2025-05-21] MEDS ORDERED: VIBE75TA PO (00:21)
[2025-05-21] MEDS ORDERED: SENN-186 PO (00:21)
[2025-05-21] MEDS ORDERED: CLEAPOW10 PO (00:21)
[2025-05-21] MEDS ORDERED: LUMA42CA4 PO (00:21)
[2025-05-21] MEDS ORDERED: HOME MED LIST COMPLETE! XX SCH (00:45)
[2025-05-21] MEDS: OLANZapine 5 MG TAB PO ONE (08:15)
[2025-05-21] MEDS: LACTULOSE 20 GM/30 ML SYRUP UDC PO SCH (09:34)
[2025-05-21] MEDS: ATORVASTATIN 20 MG TAB PO SCH (09:34)
[2025-05-21] MEDS: ESCITALOPRAM OXALATE 10 MG TABLET PO SCH (09:34)
[2025-05-21] MEDS: ZONISAMIDE 100MG CAP PO SCH (09:35)
[2025-05-21] MEDS: SOLIFENACIN 5 MG TAB PO SCH (09:35)
[2025-05-21] MEDS: FLUTICASONE PROPIONATE 0.05% NASAL SPRAY 16 GM NARES SCH (09:35)
[2025-05-21] MEDS: ASCORBIC ACID 500 MG TAB PO SCH (09:35)
[2025-05-21] MEDS: PANTOPRAZOLE 40MG TAB PO SCH (09:35)
[2025-05-21] MEDS: SENNA 8.6 MG TAB PO SCH (09:35)
[2025-05-22] MEDS ORDERED: LEVOTHYROXINE 25 MCG TABLET (0.025MG) PO SCH (06:00)
[2025-05-29] MEDS ORDERED: CHLO100T30 PO (05:52)
== END 2025-05-21 09:40 | disposition home or self-care (01) ==
LOC: M ED 12:12
DX: R45.851 Suicidal ideations (principal); T50.902A Poisoning by unspecified drugs, medicaments and biological substances, intentional self-harm, initial encounter; F20.9 Schizophrenia, unspecified; Z88.1 Allergy status to other antibiotic agents; Z88.8 Allergy status to other drugs, medicaments and biological substances; Z79.51 Long term (current) use of inhaled steroids; Z79.899 Other long term (current) drug therapy